=== PATIENT | female | born 1955 | race Caucasian/White ===

== ENCOUNTER → 2020-06-18 09:40 | Outpatient (BNVA) | payer MEDICARE, MEDICAID, SELFPAY | PROVIDERS: PCP Family Medicine; Visit Provider Urology | DX: R30.1 Vesical tenesmus (principal); N39.0 Urinary tract infection, site not specified; G35 Multiple sclerosis | CPT/HCPCS: 99212 ==

== ENCOUNTER 2020-07-05 11:20 | Day surgery (SDC) | payer MEDICARE, MEDICAID, SELFPAY ==
[2020-06-30 09:34] VITALS: BMI 39.0
--- NOTE | 2020-07-02 12:28 | P.CONAN_ITS ---
Documented by User: Magdalena Baumann 07/02/20 12:55 HPI - Anesthesia Eval Consult details Narrative: 65yo F for Cystoscopy Botox Injection, Poss Bladder Stone Removal 02/2020: cysto botox with MAC 06/2019: cysto, bladder stone with GA-LMA 4 PMFSH Past Medical History Medical History (Updated 06/30/20 @ 09:50 by Laura Godfrey) Anemia Arthritis Back pain Bladder stones CVA (cerebral vascular accident) DVT (deep venous thrombosis) Tran catheter in place Hiatal hernia History of MRSA infection History of neurogenic bladder HTN (hypertension) Hx of lymphoma Hx pulmonary embolism Multiple sclerosis Myocardial infarction Thyroid disease Surgical History Surgical History (Updated 06/30/20 @ 09:50 by Laura Godfrey) H/O colonoscopy History of biopsy of bladder History of bladder surgery Social History Social History Are you a primary director career services to a significant other at home: No Do you presently have visiting nurse or other home services: Yes Smoking Status: Unknown if ever smoked Use of substances other than those prescribed or required for medical reasons: No Have you been hit, kicked, punched, or otherwise hurt by someone within the past year? If so, by whom?: No Advance Directives Information Provided: Yes Advance Directives Date on File: 07/05/20 Recently lost weight without trying: No Meds Allergies Allergy/AdvReac Type Severity Reaction Status Date / Time mercury (elemental) Allergy Severe Anaphylaxis Verified 07/05/20 12:20 Penicillins Allergy Unknown Unknown Verified 07/05/20 12:20 morphine Allergy Hives Verified 07/05/20 12:21 ciprofloxacin AdvReac Unknown Unknown Verified 07/05/20 12:20 Home Medications Medication Instructions Recorded Confirmed Type acetaminophen 500 mg capsule 1,000 mg PO TID 06/18/20 06/30/20 History ascorbic acid (vitamin C) 1,000 mg 1,000 mg PO BID 06/18/20 06/30/20 History tablet baclofen 20 mg tablet 20 mg PO BID 06/18/20 06/18/20 History cefpodoxime 200 mg tablet 200 mg PO BID 06/18/20 06/30/20 History ceftriaxone 1 gram solution for g IM 06/18/20 06/18/20 History injection docusate sodium 283 mg/5 mL enema mg [place] DAILY PRN 06/18/20 06/18/20 History flu vacc 2020-21(65yr ml IM ONCE 06/18/20 06/18/20 History up)-MF59C(PF) 60 mcg(15 mcgx4)/0.5 mL IM syringe fluoride (sodium) 1.1 % dental PO DAILY 06/18/20 06/18/20 History paste furosemide 40 mg tablet 40 mg PO DAILY 06/18/20 06/30/20 History gabapentin 300 mg capsule 300 mg PO BID 06/18/20 06/18/20 History lactulose 10 gram/15 mL oral ml PO 06/18/20 06/18/20 History solution levofloxacin 750 mg tablet 750 mg PO DAILY 06/18/20 06/18/20 History levothyroxine 88 mcg tablet 88 mcg PO DAILY 06/18/20 06/30/20 History lidocaine HCl 2 % mucosal jelly TOPICAL 06/18/20 06/18/20 History lidocaine HCl 2 % mucosal solution PO 06/18/20 06/18/20 History lisinopril 5 mg tablet 5 mg PO DAILY 06/18/20 06/30/20 History magnesium hydroxide 400 mg/5 mL ml PO 06/18/20 06/18/20 History oral suspension menthol 0.44 %-zinc oxide 20.6 % TOPICAL TID PRN 06/18/20 06/18/20 History topical ointment methenamine hippurate 1 gram tablet 1 g PO BID 06/18/20 06/30/20 History nitrofurantoin 1 cap PO BID 06/18/20 06/30/20 History monohydrate/macrocrystals 100 mg capsule pneumococcal 23-maxx ps vaccine 25 ml IM 06/18/20 06/18/20 History mcg/0.5 mL injection syringe polyethylene glycol 3350 17 1 g PO DAILY 06/18/20 06/30/20 History gram/dose oral powder rivaroxaban 20 mg tablet 20 mg PO DAILY 06/18/20 06/30/20 History sulfamethoxazole 800 1 tab PO BID 06/18/20 06/18/20 History mg-trimethoprim 160 mg tablet triamcinolone acetonide 0.1 % TOPICAL 06/18/20 06/18/20 History topical ointment lactulose 15 ml PO DAILY 06/30/20 06/30/20 History Exam Exam Date and Time: July 02, 2020 1228 Height,Weight and Vital Signs: Height 5 ft Weight 90.718 kg Assessment and Plan Assessment Anesthesia Assessment: Chart Reviewed Documented by User: Kimo Akins 07/05/20 12:48 PMFSH Past Medical History Medical History (Updated 06/30/20 @ 09:50 by Laura Godfrey) Anemia Arthritis Back pain Bladder stones CVA (cerebral vascular accident) DVT (deep venous thrombosis) Rtan catheter in place Hiatal hernia History of MRSA infection History of neurogenic bladder HTN (hypertension) Hx of lymphoma Hx pulmonary embolism Multiple sclerosis Myocardial infarction Thyroid disease Surgical History Surgical History (Updated 06/30/20 @ 09:50 by Laura Godfrey) H/O colonoscopy History of biopsy of bladder History of bladder surgery Social History Social History Are you a primary director career services to a significant other at home: No Do you presently have visiting nurse or other home services: Yes Smoking Status: Unknown if ever smoked Use of substances other than those prescribed or required for medical reasons: No Have you been hit, kicked, punched, or otherwise hurt by someone within the past year? If so, by whom?: No Advance Directives Information Provided: Yes Advance Directives Date on File: 07/05/20 Recently lost weight without trying: No Meds Allergies Allergy/AdvReac Type Severity Reaction Status Date / Time mercury (elemental) Allergy Severe Anaphylaxis Verified 07/05/20 12:20 Penicillins Allergy Unknown Unknown Verified 07/05/20 12:20 morphine Allergy Hives Verified 07/05/20 12:21 ciprofloxacin AdvReac Unknown Unknown Verified 07/05/20 12:20 Home Medications Medication Instructions Recorded Confirmed Type acetaminophen 500 mg capsule 1,000 mg PO TID 06/18/20 06/30/20 History ascorbic acid (vitamin C) 1,000 mg 1,000 mg PO BID 06/18/20 06/30/20 History tablet baclofen 20 mg tablet 20 mg PO BID 06/18/20 06/18/20 History cefpodoxime 200 mg tablet 200 mg PO BID 06/18/20 06/30/20 History ceftriaxone 1 gram solution for g IM 06/18/20 06/18/20 History injection docusate sodium 283 mg/5 mL enema mg [place] DAILY PRN 06/18/20 06/18/20 History flu vacc 2020-21(65yr ml IM ONCE 06/18/20 06/18/20 History up)-MF59C(PF) 60 mcg(15 mcgx4)/0.5 mL IM syringe fluoride (sodium) 1.1 % dental PO DAILY 06/18/20 06/18/20 History paste furosemide 40 mg tablet 40 mg PO DAILY 06/18/20 06/30/20 History gabapentin 300 mg capsule 300 mg PO BID 06/18/20 06/18/20 History lactulose 10 gram/15 mL oral ml PO 06/18/20 06/18/20 History solution levofloxacin 750 mg tablet 750 mg PO DAILY 06/18/20 06/18/20 History levothyroxine 88 mcg tablet 88 mcg PO DAILY 06/18/20 06/30/20 History lidocaine HCl 2 % mucosal jelly TOPICAL 06/18/20 06/18/20 History lidocaine HCl 2 % mucosal solution PO 06/18/20 06/18/20 History lisinopril 5 mg tablet 5 mg PO DAILY 06/18/20 06/30/20 History magnesium hydroxide 400 mg/5 mL ml PO 06/18/20 06/18/20 History oral suspension menthol 0.44 %-zinc oxide 20.6 % TOPICAL TID PRN 06/18/20 06/18/20 History topical ointment methenamine hippurate 1 gram tablet 1 g PO BID 06/18/20 06/30/20 History nitrofurantoin 1 cap PO BID 06/18/20 06/30/20 History monohydrate/macrocrystals 100 mg capsule pneumococcal 23-maxx ps vaccine 25 ml IM 06/18/20 06/18/20 History mcg/0.5 mL injection syringe polyethylene glycol 3350 17 1 g PO DAILY 06/18/20 06/30/20 History gram/dose oral powder rivaroxaban 20 mg tablet 20 mg PO DAILY 06/18/20 06/30/20 History sulfamethoxazole 800 1 tab PO BID 06/18/20 06/18/20 History mg-trimethoprim 160 mg tablet triamcinolone acetonide 0.1 % TOPICAL 06/18/20 06/18/20 History topical ointment lactulose 15 ml PO DAILY 06/30/20 06/30/20 History Exam Airway Mallampati Class: III TM Dist: >3cm Neck ROM: Full Heart: RRR Assessment and Plan Assessment Anesthesia Assessment: Anesthesia Plan Discussed Final Anesthetic Review NPO: Yes ASA Class: IV Final Preanesthetic Review: Consent Obtained/Reviewed and DNR Form (If Appl.) (Desires full resuscitation in OR and PACU) Anesthetic Plan Anesthetic Plan: GA Disposition: Standard PACU
[2020-07-05] VITALS (7 sets, daily range): BP systolic 120–131; BP diastolic 56–75; PULSE 70–84; RESP 12–16; TEMP 36.3–36.8; O2SAT 97–100
--- NOTE | 2020-07-05 12:17 | MHC.SHP ---
Pre-Procedural Eval Section A The patient is an INPATIENT: No Changes since office visit: No Cold of Flu in the past 2 weeks, No New Medical Problems, No Changes in Medication and No Patient answered all questions The History & Physical has been completed within 30 days and I have reviewed it.: Yes Section B Chief Complaint: Calculus in Bladder, Neuromuscular Dysfunction Allergies: Allergies Allergy/AdvReac Type Severity Reaction Status Date / Time ciprofloxacin Allergy Unknown Unknown Verified 07/05/20 12:14 Penicillins Allergy Unknown Unknown Unverified 07/02/20 18:31 Plan Patient has been examined and remains a candidate for the planned procedure
[2020-07-05] MEDS: vancomycin HCL 1,000 MG in 0.9 % Sodium Chloride 250 ML 270 MG IV (12:29)
[2020-07-05] MEDS: Gentamicin Sulfate/NaCl 80 MG/100 ML PIGGYBACK 100 MG IV (12:29)
[2020-07-05] MEDS: Lactated Ringers 1,000 ML 100 ML IVCONT (12:30)
--- NOTE | 2020-07-05 13:37 | P.OP_ITS ---
Operative Note Operative Note Date of Service: 07/05/20 Narrative: PreOperative Diagnosis: neurogenic bladder from multiple sclerosi Post Operative Diagnosis: same Procedure: cystoscopy with Botox injection, bladder biopsy Surgeon: Dr Gage Bass Anesthesia: LMA Indications for procedure: this is a 65-year-old female. Long history of multiple sclerosis. Long his tory of neurogenic bladder treated with Tran catheter. Here today for Botox injection. Had this performed approximately 4 months ago. Had good benefit. Is known to have a small bladder capacity with marked trabeculation and collagen deposition. She is aware the risks and benefits. There was a question of a positive UTI however culture results this morning is negative. She is on antibiotics as a precaution. Procedure: After informed consent was verified the patient was brought to the operating room and placed in a supine position. anesthesia was administered per protocol. Patient was placed in modified dorsal lithotomy position and prepped and draped in sterile fashion. Safety pause time-out performed. Antibiotics have been given. Twenty-one [place] cystoscope inserted per urethra. The bladder was small capacity with marked trabeculation and diverticula formation. Also noted to have mucosal changes consistent with chronic Tran catheter. A biopsy was taken for confirmatory purposes. Botox was injected submucosally in 20 locations. 0.5 cc of a solution which was 100 units mixed with 10 cc normal saline. She tolerated the procedure well was x-ray not friend transferred in stable condition to the recovery room Pathology: Bladder biopsy Drains: none
--- NOTE | 2020-07-05 13:37 | PM.OP ---
Brief Operative Note Date of Service: 07/05/20 Pre-op diagnosis: Neurogenic bladder Post-op diagnosis: same Procedure: cystoscopy Botox injection Surgeon: Gage Bass MD Anesthesia: GLMA Estimated blood loss (mL): 0 Pathology: none sent Condition: stable Disposition: observation
[2020-07-05] MEDS: Acetaminophen 325 MG TABLET 650 MG PO (14:01)
[2020-07-05] MEDS: Fluconazole 100 MG TABLET PO (14:09)
== END 2020-07-05 14:45 | disposition home or self-care (01) ==
PROVIDERS: PCP Family Medicine; Visit Provider Urology
PROC: 3E0K8GC Introduction of Other Therapeutic Substance into Genitourinary Tract, Via Natural or Artificial Opening Endoscopic (ICD-10-PCS; CPT 52287; principal; 2020-07-05 13:00)
DX: N31.9 Neuromuscular dysfunction of bladder, unspecified (principal); G35 Multiple sclerosis; N21.0 Calculus in bladder; Z86.73 Personal history of transient ischemic attack (TIA), and cerebral infarction without residual deficits; I25.2 Old myocardial infarction; Z79.899 Other long term (current) drug therapy; Z88.0 Allergy status to penicillin; Z88.5 Allergy status to narcotic agent
CPT/HCPCS: 52287; 52204; 88305; J0585; J1580; J2250; J2405; J3010; J3370

== ENCOUNTER → 2020-09-30 16:02 | Outpatient (BNVA) | payer MEDICARE, MEDICAID, SELFPAY | PROVIDERS: Visit Provider Urology | DX: Z76.89 Persons encountering health services in other specified circumstances (principal) | CPT/HCPCS: Q3014 ==

== ENCOUNTER 2020-11-08 07:48 | Day surgery (SDC) | payer MEDICARE, MEDICAID, SELFPAY ==
[2020-10-22 15:46] VITALS: BMI 39.0
--- NOTE | 2020-10-25 13:20 | HO.ANESPROP2 ---
Documented by User: Magdalena Connellyney 10/25/20 13:28 HPI - Anesthesia Eval Consult details Narrative: 65yo F for Cystoscopy with 200 unit Botox Injection Chronic saddle PE's - xarelto s/p Cystoscopy Botox Injection 06/2020 with GA-LMA 4 Per cardiac note 07/2020 - BNP's nml, last echo a few years ago was nml. Recent NENO diagnosis PMFSH Active Problems Active Problems: All Active Problems (Updated 10/25/20 @ 09:01 by Lucie Chaparro) Multiple sclerosis (Acute) Painful bladder spasm (Acute) Recurrent UTI (Acute) Past Medical History Medical History Anemia Arthritis Back pain Bladder stones CVA (cerebral vascular accident) DVT (deep venous thrombosis) Tran catheter in place Hiatal hernia History of MRSA infection History of neurogenic bladder HTN (hypertension) Hx of lymphoma Hx pulmonary embolism Multiple sclerosis Myocardial infarction NENO (obstructive sleep apnea) Parkinson's variant of multiple system atrophy Sleep apnea Thyroid disease Wheelchair bound Surgical History Surgical History H/O colonoscopy History of biopsy of bladder History of bladder surgery History of cystoscopy Hx of laminectomy Social History Social History (Updated 10/22/20 @ 15:46 by Lucie Chaparro) Smoking Status: Never smoker Use of substances other than those prescribed or required for medical reasons: No Advance Directives: Yes Advance Directives Information Provided: Yes Advance Directives on File: Yes Advance Directives Date on File: 07/05/20 Meds Allergies Allergy/AdvReac Type Severity Reaction Status Date / Time mercury (elemental) Allergy Severe Anaphylaxis Verified 11/08/20 09:14 Penicillins Allergy Severe Hives Verified 11/08/20 09:14 bupropion [From Wellbutrin] Allergy Hives Verified 11/08/20 09:14 Iodinated Contrast Media Allergy Hives Verified 11/08/20 09:14 [IV Contrast Dye] morphine Allergy Hives Verified 11/08/20 09:14 metoclopramide [From Reglan] AdvReac Parkinson Verified 11/08/20 09:14 syndrome Home Medications Medication Instructions Recorded Confirmed Last Taken Type acetaminophen 500 mg capsule 1,000 mg PO TID 06/18/20 10/22/20 07/05/20 History ascorbic acid (vitamin C) 1,000 mg 1,000 mg PO BID 06/18/20 10/22/20 Unknown History tablet baclofen 20 mg tablet 20 mg PO QID 06/18/20 10/22/20 07/05/20 History docusate sodium 283 mg/5 mL enema 283 mg AR DAILY PRN 06/18/20 10/22/20 Unknown History flu vacc 2020-21(65yr ml IM ONCE 06/18/20 06/18/20 Unknown History up)-MF59C(PF) 60 mcg(15 mcgx4)/0.5 mL IM syringe fluoride (sodium) 1.1 % dental PO DAILY 06/18/20 06/18/20 Unknown History paste furosemide 40 mg tablet 40 mg PO DAILY 06/18/20 10/22/20 07/05/20 History gabapentin 300 mg capsule 300 mg PO BEDTIME 06/18/20 10/22/20 Unknown History levothyroxine 88 mcg tablet 88 mcg PO DAILY 06/18/20 10/22/20 Unknown History lidocaine HCl 2 % mucosal jelly TOPICAL 06/18/20 06/18/20 Unknown History lisinopril 5 mg tablet 5 mg PO DAILY 06/18/20 10/22/20 11/08/20 05:00 History pneumococcal 23-maxx ps vaccine 25 ml IM 06/18/20 06/18/20 Unknown History mcg/0.5 mL injection syringe polyethylene glycol 3350 17 1 g PO DAILY 06/18/20 06/30/20 Unknown History gram/dose oral powder rivaroxaban 20 mg tablet 20 mg PO DAILY 06/18/20 10/22/20 Unknown History triamcinolone acetonide 0.1 % TOPICAL 06/18/20 06/18/20 Unknown History topical ointment alendronate 1 tab PO QWEEK 10/22/20 10/22/20 Unknown History modafinil [Provigil] 1 tab PO BID 10/22/20 10/22/20 Unknown History phenazopyridine [Pyridium] 100 mg PO DAILY 10/22/20 10/22/20 Unknown History Exam Exam Date and Time: October 25, 2020 1320 Height,Weight and Vital Signs: Height 5 ft Weight 90.718 kg Assessment and Plan Assessment Anesthesia Assessment: Chart Reviewed Documented by User: Dillan Simmons MD 11/08/20 10:14 PMFSH Past Medical History Medical History Anemia Arthritis Back pain Bladder stones CVA (cerebral vascular accident) DVT (deep venous thrombosis) Tran catheter in place Hiatal hernia History of MRSA infection History of neurogenic bladder HTN (hypertension) Hx of lymphoma Hx pulmonary embolism Multiple sclerosis Myocardial infarction NENO (obstructive sleep apnea) Parkinson's variant of multiple system atrophy Sleep apnea Thyroid disease Wheelchair bound Surgical History Surgical History H/O colonoscopy History of biopsy of bladder History of bladder surgery History of cystoscopy Hx of laminectomy Social History Social History (Updated 10/22/20 @ 15:46 by Lucie Chaparro) Smoking Status: Never smoker Use of substances other than those prescribed or required for medical reasons: No Advance Directives: Yes Advance Directives Information Provided: Yes Advance Directives on File: Yes Advance Directives Date on File: 07/05/20 Meds Allergies Allergy/AdvReac Type Severity Reaction Status Date / Time mercury (elemental) Allergy Severe Anaphylaxis Verified 11/08/20 09:14 Penicillins Allergy Severe Hives Verified 11/08/20 09:14 bupropion [From Wellbutrin] Allergy Hives Verified 11/08/20 09:14 Iodinated Contrast Media Allergy Hives Verified 11/08/20 09:14 [IV Contrast Dye] morphine Allergy Hives Verified 11/08/20 09:14 metoclopramide [From Reglan] AdvReac Parkinson Verified 11/08/20 09:14 syndrome Home Medications Medication Instructions Recorded Confirmed Last Taken Type acetaminophen 500 mg capsule 1,000 mg PO TID 06/18/20 10/22/20 07/05/20 History ascorbic acid (vitamin C) 1,000 mg 1,000 mg PO BID 06/18/20 10/22/20 Unknown History tablet baclofen 20 mg tablet 20 mg PO QID 06/18/20 10/22/20 07/05/20 History docusate sodium 283 mg/5 mL enema 283 mg AR DAILY PRN 06/18/20 10/22/20 Unknown History flu vacc 2020-(65yr ml IM ONCE 06/18/20 06/18/20 Unknown History up)-MF59C(PF) 60 mcg(15 mcgx4)/0.5 mL IM syringe fluoride (sodium) 1.1 % dental PO DAILY 06/18/20 06/18/20 Unknown History paste furosemide 40 mg tablet 40 mg PO DAILY 06/18/20 10/22/20 07/05/20 History gabapentin 300 mg capsule 300 mg PO BEDTIME 06/18/20 10/22/20 Unknown History levothyroxine 88 mcg tablet 88 mcg PO DAILY 06/18/20 10/22/20 Unknown History lidocaine HCl 2 % mucosal jelly TOPICAL 06/18/20 06/18/20 Unknown History lisinopril 5 mg tablet 5 mg PO DAILY 06/18/20 10/22/20 11/08/20 05:00 History pneumococcal 23-maxx ps vaccine 25 ml IM 06/18/20 06/18/20 Unknown History mcg/0.5 mL injection syringe polyethylene glycol 3350 17 1 g PO DAILY 06/18/20 06/30/20 Unknown History gram/dose oral powder rivaroxaban 20 mg tablet 20 mg PO DAILY 06/18/20 10/22/20 Unknown History triamcinolone acetonide 0.1 % TOPICAL 06/18/20 06/18/20 Unknown History topical ointment alendronate 1 tab PO QWEEK 10/22/20 10/22/20 Unknown History modafinil [Provigil] 1 tab PO BID 10/22/20 10/22/20 Unknown History phenazopyridine [Pyridium] 100 mg PO DAILY 10/22/20 10/22/20 Unknown History Exam Airway Mallampati Class: I TM Dist: >3cm Loose/Missing/Broken Teeth: No Heart: RRR Assessment and Plan Assessment Anesthesia Assessment: Anesthesia Plan Discussed and Chart Reviewed Final Anesthetic Review NPO: Yes ASA Class: III Final Preanesthetic Review: No Changes in Pt Med Stat, Meds/Allgs Chart Reviewed, Consent Obtained/Reviewed and Anes Risks/Benef Reviewed Patient Risk: High Procedure Risk: Low Anesthetic Plan Anesthetic Plan: GA Disposition: Standard PACU
[2020-11-08 09:16] VITALS: BP 110/64; PULSE 72; RESP 16; TEMP 36.3; O2SAT 99
[2020-11-08] MEDS: Lactated Ringers 1,000 ML 50 ML IV (09:23)
[2020-11-08] MEDS: levoFLOXacin 500 MG TABLET PO (09:36)
--- NOTE | 2020-11-08 09:41 | PC.NURSE ---
wound to rt buttock/upper thigh area and coccyx, both with bandages.
--- NOTE | 2020-11-08 10:13 | MHC.SHP ---
Pre-Procedural Eval Section A The patient is an INPATIENT: No Changes since office visit: Yes Cold of Flu in the past 2 weeks, Yes New Medical Problems, Yes Changes in Medication and Yes Patient answered all questions The History & Physical has been completed within 30 days and I have reviewed it.: Yes Section B Chief Complaint: bladder spasm Allergies: Allergies Allergy/AdvReac Type Severity Reaction Status Date / Time mercury (elemental) Allergy Severe Anaphylaxis Verified 11/08/20 09:14 Penicillins Allergy Severe Hives Verified 11/08/20 09:14 bupropion [From Wellbutrin] Allergy Hives Verified 11/08/20 09:14 Iodinated Contrast Media Allergy Hives Verified 11/08/20 09:14 [IV Contrast Dye] morphine Allergy Hives Verified 11/08/20 09:14 metoclopramide [From Reglan] AdvReac Parkinson Verified 11/08/20 09:14 syndrome Plan Diagnosis/Plan: Unchanged ( cystoscopy with Botox injection) I have reviewed the history and physical and performed a pertinent physical examination on my patient. No changes have occurred unless specified.
--- NOTE | 2020-11-08 10:58 | W.PM.OPN ---
Operative Note Operative Note Date of Service: 11/08/20 Narrative: PreOperative Diagnosis: neurogenic bladder multiple sclerosis Post Operative Diagnosis: neurogenic bladder Procedure: cystoscopy, bladder biopsy, Botox injection Surgeon: Dr Gage Bass Anesthesia: general Indications for procedure: longstanding MS with indwelling Tran catheter. Suffers from bladder spasm secondary to neurogenic bladder. Previously used Botox with good effect. She is here for repeat Botox administration. Procedure: After informed consent was verified the patient was brought to the operating room and placed in a supine position. anesthesia was administered per protocol. she was placed in a modified dorsal lithotomy position and prepped and draped in a sterile fashion. Safety pause time-out was performed. Antibiotics have been given. the indwelling Tran catheter 20 Japanese was removed. A 22 Japanese cystoscope was placed. The bladder had 1 small stone developed on the surface of inflamed mucosa. This was removed. A biopsy was taken of the edematous mucosa. It is likely this is secondary to the Tran catheter however Surveillance is warranted in this setting of a longstanding Tran catheter. Botox was administered. Two hundred units in 0.5 cc doses with a total of 20 doses. These were placed in a grid of 5 rows of 4 injections on the posterior wall of the bladder. She tolerated the injections well. A 20 Japanese Tran catheter was placed at the completion of the case. Pathology: Bladder biopsy Drains: Tran catheter 20 Japanese
[2020-11-08 11:10] VITALS: BP 123/53; PULSE 80; RESP 14; TEMP 36.3; O2SAT 93
[2020-11-08 11:15] VITALS: BP 94/41; PULSE 81; RESP 16; O2SAT 96
[2020-11-08 11:20] VITALS: BP 104/51; PULSE 78; RESP 16; O2SAT 95
[2020-11-08 11:25] VITALS: BP 103/52; PULSE 84; RESP 16; O2SAT 95
[2020-11-08 11:39] VITALS: BP 103/71; PULSE 79; RESP 16; O2SAT 97
== END 2020-11-08 11:57 | disposition home or self-care (01) ==
PROVIDERS: PCP Family Medicine; Visit Provider Urology
PROC: 3E0K8GC Introduction of Other Therapeutic Substance into Genitourinary Tract, Via Natural or Artificial Opening Endoscopic (ICD-10-PCS; CPT 52287; principal; 2020-11-08 09:50)
DX: N31.9 Neuromuscular dysfunction of bladder, unspecified (principal); N32.89 Other specified disorders of bladder; N30.20 Other chronic cystitis without hematuria; Z87.442 Personal history of urinary calculi; G35 Multiple sclerosis; I10 Essential (primary) hypertension; G47.33 Obstructive sleep apnea (adult) (pediatric); Z86.14 Personal history of Methicillin resistant Staphylococcus aureus infection; Z86.711 Personal history of pulmonary embolism; Z99.3 Dependence on wheelchair; Z88.0 Allergy status to penicillin; Z88.8 Allergy status to other drugs, medicaments and biological substances
CPT/HCPCS: 52204; 52287; 88305; J0585; J1100; J2250; J2370; J2405; J3010

== ENCOUNTER → 2020-11-24 11:00 | Outpatient (BNVA) | payer MEDICARE, MEDICAID, SELFPAY | PROVIDERS: PCP Family Medicine; Visit Provider Urology | DX: Z13.89 Encounter for screening for other disorder (principal) | CPT/HCPCS: 99212 ==

== ENCOUNTER → 2021-03-10 15:24 | Outpatient (BNVA) | payer MEDICARE, MEDICAID, SELFPAY | PROVIDERS: Visit Provider Urology | DX: Z13.89 Encounter for screening for other disorder (principal) | CPT/HCPCS: Q3014 ==

== ENCOUNTER → 2021-06-10 16:00 | Outpatient (BNVA) | payer MEDICARE, MEDICAID, SELFPAY | PROVIDERS: PCP Family Medicine; Visit Provider Urology | DX: N21.0 Calculus in bladder (principal); N31.9 Neuromuscular dysfunction of bladder, unspecified; N39.0 Urinary tract infection, site not specified; G20 Parkinson's disease; Z96.0 Presence of urogenital implants; Z88.0 Allergy status to penicillin; Z88.8 Allergy status to other drugs, medicaments and biological substances; Z88.6 Allergy status to analgesic agent; Z91.041 Radiographic dye allergy status; Z66 Do not resuscitate | CPT/HCPCS: Q3014 ==

== ENCOUNTER 2021-08-01 10:43 | Day surgery (SDC) | payer MEDICARE, MEDICAID, SELFPAY ==
[2021-07-25 13:23] VITALS: BMI 39.0
[2021-08-01] VITALS (8 sets, daily range): BP systolic 118–148; BP diastolic 66–84; PULSE 69–81; RESP 16–17; TEMP 36.4–36.6; O2SAT 95–98
[2021-08-01] MEDS: Lactated Ringers 1,000 ML 50 ML IVCONT (12:39)
--- NOTE | 2021-08-01 12:46 | MHC.SHP ---
Pre-Procedural Eval Section A Date of Service: 08/01/21 Section B Chief Complaint: bladder dysfunction Details of Present Illness: Here for cystoscopy, bladder irrigation, Botox 200 units to bladder wall. Prior discussion in office regarding procedure. Understands the risks and benefits for Botox in her bladder. It is for spasm control. Relevant Family History (Specify if Yes): No Relevant Social History: Other (specify) Present Medications: see Short Stay Collaborative assessment Medical History: Significant History History of Previous Operations: Relevant previous surgery/procedure and date(s) (Prior Botox September 2020) Allergies: Allergies Allergy/AdvReac Type Severity Reaction Status Date / Time mercury (elemental) Allergy Severe Anaphylaxis Verified 06/10/21 16:01 Penicillins Allergy Severe Hives Verified 06/10/21 16:01 bupropion [From Wellbutrin] Allergy Intermediate Hives Verified 07/25/21 12:34 Iodinated Contrast Media Allergy Intermediate Hives Verified 07/25/21 12:34 [IV Contrast Dye] morphine Allergy Intermediate Hives Verified 07/25/21 12:34 metoclopramide [From Reglan] AdvReac Intermediate Parkinson Verified 07/25/21 12:34 syndrome Review of Systems Sugical H&P ROS: Negative: Constitution, Cardiovascular, Respiratory, Neurological, Psychiatric, Hem-Onc, Allergic/Immunologic, Gastrointestinal, Genitourinary, Musculoskeletal, Integumentary, Endocrine and Eyes/Ears/Nose/Throat Exam Surgical H&P Exam: Normal: HEENT, Normal: Heart, Normal: Lungs, Normal: Extremities, Normal: Abdomen, Normal: Skin and Normal: Neurological Plan Diagnosis/Plan: Unchanged (Cystoscopy, debris evacuation, Botox) I have reviewed the history and physical and performed a pertinent physical examination on my patient. No changes have occurred unless specified.
--- NOTE | 2021-08-01 12:57 | P.CONAN_ITS ---
HPI - Anesthesia Eval Consult details Narrative: 65yo F for Cystoscopy Botox Injection Chronic saddle PE's - xarelto. stopped 2 days ago . s/p Cystoscopy Botox Injection 06/2020 with GA-LMA 4 Per cardiac note 07/2020 - BNP's nml, last echo a few years ago was nml. Recent NENO diagnosis PMFSH Active Problems Active Problems: All Active Problems (Updated 08/01/21 @ 12:06 by Ria Sr, PAUL) Multiple sclerosis (Acute) Painful bladder spasm (Acute) Recurrent UTI (Acute) Neurogenic urinary bladder disorder (Acute) Past Medical History Medical History Anemia Arthritis Back pain Bladder stones Cardiac arrest COVID-19 vaccine series completed CVA (cerebral vascular accident) DVT (deep venous thrombosis) Tran catheter in place Hiatal hernia History of MRSA infection History of neurogenic bladder History of trigeminal neuralgia HTN (hypertension) Hx of lymphoma Hx pulmonary embolism Multiple sclerosis Myocardial infarction NENO (obstructive sleep apnea) Osteoporosis Parkinson's variant of multiple system atrophy Pulmonary emboli Sacral decubitus ulcer Thyroid disease Wheelchair bound Functional capacity: wheelchair bound Family History Family history of problems with anesthesia: No Surgical History Surgical History (Updated 08/01/21 @ 12:17 by Rosa Cortez RN) H/O colonoscopy History of biopsy of bladder History of bladder surgery History of cystoscopy History of intraocular lens implant Hx of adenoidectomy Hx of hysterectomy Hx of laminectomy Hx of lumpectomy Hx of tonsillectomy Hx of vitrectomy History of Problems with Anesthesia: No Social History Social History (Updated 10/22/20 @ 15:46 by Lucie Chaparro RN) Are you a primary neurocritical care physician to a significant other at home: No Do you presently have visiting nurse or other home services: Yes ([facility], 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 If so, by whom?: No Are you DNR?: Yes Advance Directives: Yes Advance Directives Information Provided: Yes Advance Directives on File: Yes Advance Directives Date on File: 07/05/20 Recently lost weight without trying: No Eating poorly because of decreased appetite: No Nutrition Risks: No Nutritional Risk Meds Allergies Allergy/AdvReac Type Severity Reaction Status Date / Time mercury (elemental) Allergy Severe Anaphylaxis Verified 06/10/21 16:01 Penicillins Allergy Severe Hives Verified 06/10/21 16:01 bupropion [From Wellbutrin] Allergy Intermediate Hives Verified 07/25/21 12:34 Iodinated Contrast Media Allergy Intermediate Hives Verified 07/25/21 12:34 [IV Contrast Dye] morphine Allergy Intermediate Hives Verified 07/25/21 12:34 metoclopramide [From Reglan] AdvReac Intermediate Parkinson Verified 07/25/21 12:34 syndrome Active Medications: Current Medications Lactated Ringer's (Lr) 1,000 mls @ 50 mls/hr IVCONT .Q20H JUWAN Last Admin: 08/01/21 12:39 Dose: 50 mls/hr Documented by: Home Medications Medication Instructions Recorded Confirmed Last Taken Type acetaminophen 500 mg capsule 1,000 mg PO TID 06/18/20 07/25/21 07/05/20 History ascorbic acid (vitamin C) 1,000 mg 1,000 mg PO BID 06/18/20 07/25/21 Unknown History tablet baclofen 20 mg tablet 20 mg PO TID 06/18/20 07/25/21 07/05/20 History docusate sodium 283 mg/5 mL enema 283 mg OR DAILY PRN 06/18/20 07/25/21 Unknown History flu vacc 2019-(64yr ml IM ONCE 06/18/20 06/18/20 Unknown History up)-MF59C(PF) 60 mcg(15 mcgx4)/0.5 mL IM syringe furosemide 40 mg tablet 40 mg PO DAILY 06/18/20 07/25/21 07/05/20 History gabapentin 300 mg capsule 300 mg PO BEDTIME 06/18/20 07/25/21 Unknown History levothyroxine 88 mcg tablet 88 mcg PO DAILY 06/18/20 07/25/21 Unknown History lidocaine HCl 2 % mucosal jelly TOPICAL 06/18/20 06/18/20 Unknown History lisinopril 5 mg tablet 5 mg PO DAILY 06/18/20 07/25/21 11/08/20 05:00 History pneumococcal 23-maxx ps vaccine 25 ml IM 06/18/20 06/18/20 Unknown History mcg/0.5 mL injection syringe rivaroxaban 20 mg tablet 20 mg PO DAILY 06/18/20 07/25/21 Unknown History triamcinolone acetonide 0.1 % TOPICAL 06/18/20 06/18/20 Unknown History topical ointment modafinil 200 mg tablet (Provigil) 1 tab PO BID 10/22/20 07/25/21 Unknown History Probiotic 1 cap DAILY 07/25/21 07/25/21 Unknown History calcium carbonate 600 mg calcium 1 tab PO BID 07/25/21 07/25/21 Unknown History (1,500 mg) tablet cholecalciferol (vitamin D3) 25 25 mcg PO DAILY 07/25/21 07/25/21 Unknown History mcg (1,000 unit) capsule (Vitamin D3) Exam Exam Date and Time: August 01, 2021 1257 Height,Weight and Vital Signs: Height 5 ft Weight 90.718 kg Last Vital Signs Temp 97.6 F 08/01/21 12:07 Pulse 78 08/01/21 12:07 Resp 16 08/01/21 12:07 BP 148/84 H 08/01/21 12:07 Pulse Ox 97 08/01/21 12:07 Airway Mallampati Class: III TM Dist: >3cm Neck ROM: Full Loose/Missing/Broken Teeth: Yes Assessment and Plan Assessment Anesthesia Assessment: Anesthesia Plan Discussed Final Anesthetic Review Family History of Problems with Anesthesia: No History of Problems with Anesthesia: No NPO: Yes ASA Class: III Patient Risk: High Procedure Risk: Intermediate Anesthetic Plan Anesthetic Plan: GA Disposition: Standard PACU
--- NOTE | 2021-08-01 13:56 | W.PM.OPN ---
Operative Note Operative Note Date of Service: 08/01/21 Narrative: PreOperative Diagnosis: Neurogenic bladder with spasm in setting of multiple sclerosis Post Operative Diagnosis: Above Procedure: Cystoscopy with injection 200 units Botox intra detrusor muscle Surgeon: Dr Gage Bass Anesthesia: Sedation Indications for procedure: Is a very pleasant 66-year-old female. Neurogenic bladder with indwelling Tran catheter. Bladder spasm with leakage around Tran catheter. For prior Botox injection with success in managing bladder spasms For cystoscopy and Botox injection. Is aware of the risks and benefits particularly related to urinary retention and possible infection. Procedure: After informed consent was verified the patient was brought to the operating room and placed in a supine position. Anesthesia was administered per protocol. Cystoscopy performed with 22 Guyanese cystoscope. Bladder was emptied of urine. There were superficial bladder edematous changes consistent with long-term Tran catheter positioning. These will looked improved compared to previously. There was no evidence of any bladder debris or bladder stones. Bladder was refilled. Using 200 units of Botox mixed in 20 cc of normal saline injections were placed at the back wall of the bladder. One cc placed at each injection site. Injections were placed in a grid 5 across and for high. Injections were placed from the inferior to superior position. Trabeculations on the bladder wall with targeted for each injection site. Procedure was tolerated well. Patient was extubated and transferred in stable condition to the recovery area. Pathology: None Drains: None
== END 2021-08-01 15:55 | disposition home or self-care (01) ==
PROVIDERS: PCP Family Medicine; Visit Provider Urology
PROC: 0TJB8ZZ Inspection of Bladder, Via Natural or Artificial Opening Endoscopic (ICD-10-PCS; CPT 52000; principal; 2021-08-01 12:50)
DX: N31.9 Neuromuscular dysfunction of bladder, unspecified (principal); N32.89 Other specified disorders of bladder; G35 Multiple sclerosis; G90.3 Multi-system degeneration of the autonomic nervous system; N39.0 Urinary tract infection, site not specified; Z87.442 Personal history of urinary calculi; I25.2 Old myocardial infarction; D64.9 Anemia, unspecified; I10 Essential (primary) hypertension; G47.33 Obstructive sleep apnea (adult) (pediatric); Z86.73 Personal history of transient ischemic attack (TIA), and cerebral infarction without residual deficits; Z86.718 Personal history of other venous thrombosis and embolism; Z86.711 Personal history of pulmonary embolism; Z85.72 Personal history of non-Hodgkin lymphomas; Z79.01 Long term (current) use of anticoagulants; Z86.14 Personal history of Methicillin resistant Staphylococcus aureus infection; Z88.0 Allergy status to penicillin; Z91.041 Radiographic dye allergy status; Z88.8 Allergy status to other drugs, medicaments and biological substances; Z66 Do not resuscitate; Z99.3 Dependence on wheelchair
CPT/HCPCS: 52287; J0585; J0692; J1100; J2250; J2370; J2405; J3010

== ENCOUNTER → 2021-08-17 14:08 | Outpatient (BNVA) | payer MEDICARE, MEDICAID, SELFPAY | PROVIDERS: PCP Family Medicine; Visit Provider Urology | DX: Z13.89 Encounter for screening for other disorder (principal) | CPT/HCPCS: Q3014 ==

== ENCOUNTER → 2021-12-16 14:10 | Outpatient (BNVA) | payer MEDICARE, MEDICAID, SELFPAY | PROVIDERS: PCP Family Medicine; Visit Provider Urology | DX: N39.0 Urinary tract infection, site not specified (principal); N31.9 Neuromuscular dysfunction of bladder, unspecified | CPT/HCPCS: Q3014 ==

== ENCOUNTER 2022-02-13 16:57 | Inpatient (IN) | payer MEDICARE, MEDICAID, SELFPAY ==
[2022-02-13] VITALS (8 sets, daily range): BP systolic 126–172; BP diastolic 66–87; PULSE 96–110; RESP 16–27; TEMP 37.1–38.4; O2SAT 95–97; BMI 39.6
[2022-02-13] MEDS: Acetaminophen 325 MG TABLET 650 MG PO ×2 (17:17→23:48)
--- NOTE | 2022-02-13 17:19 | ED.GENADULT ---
HPI - General Adult General Chief complaint: General Medical Stated complaint: ?Sepsis Alert Time Seen by Provider: 02/13/22 17:19 Source: patient Mode of arrival: EMS Limitations: no limitations History of Present Illness HPI narrative: Patient is 67 years old with history of multiple sclerosis neurogenic urinary bladder with indwelling Tran catheter and hypothyroidism, hypertension, hyperlipidemia, obesity, non ambulatory comes here for fever started earlier today, was feeling weak and lousy, T-max was 102 degrees at home on arrival patient's blood pressure 172/78 pulse rate 108 temp 101.1f patient does get frequent UTI last admission was in 11/01 at [facility] when urine culture grew Pseudomonas, Enterococcus faecalis, Proteus mirabilis, Klebsiella pneumonia and was given IV vancomycin and IV cefepime. Patient denies any cough or shortness of breath or upper respiratory symptoms no abdominal pain Related Data Home Medications Medication Instructions Recorded Confirmed acetaminophen 500 mg capsule 1,000 mg PO BID 06/18/20 02/13/22 ascorbic acid (vitamin C) 1,000 mg 1,000 mg PO BID 06/18/20 02/13/22 tablet baclofen 20 mg tablet 20 mg PO TID 06/18/20 02/13/22 furosemide 40 mg tablet 40 mg PO DAILY 06/18/20 02/13/22 levothyroxine 88 mcg tablet 88 mcg PO DAILY 06/18/20 02/13/22 lisinopril 5 mg tablet 5 mg PO DAILY 06/18/20 02/13/22 rivaroxaban 20 mg tablet 20 mg PO DAILY 06/18/20 02/13/22 modafinil 200 mg tablet (Provigil) 1 tab PO BID@08,12 10/22/20 02/13/22 calcium carbonate 600 mg calcium 1 tab PO BID 07/25/21 02/13/22 (1,500 mg) tablet acetaminophen 500 mg capsule 500 mg PO BID PRN Pain, Mild 02/13/22 02/13/22 (Mapap (acetaminophen)) cholecalciferol (vitamin D3) 50 1 cap PO DAILY 02/13/22 02/13/22 mcg (2,000 unit) capsule furosemide 40 mg tablet 1 tab PO DAILY@1400 PRN Edema 02/13/22 02/13/22 gabapentin 300 mg capsule 300 mg PO TID 02/13/22 02/13/22 lactobacillus combination no.4 15 2 cap PO BID 02/13/22 02/13/22 billion cell capsule (Senior Probiotic) Previous Rx's Medication Instructions Recorded estradiol See Rx Instructions .Route DAILY 12/16/21 30 days #42.5 grams Allergies Allergy/AdvReac Type Severity Reaction Status Date / Time mercury (elemental) Allergy Severe Anaphylaxis Verified 08/17/21 14:10 Penicillins Allergy Severe Hives Verified 08/17/21 14:10 bupropion [From Wellbutrin] Allergy Intermediate Hives Verified 08/17/21 14:10 Iodinated Contrast Media Allergy Intermediate Hives Verified 08/17/21 14:10 [IV Contrast Dye] morphine Allergy Intermediate Hives Verified 08/17/21 14:10 metoclopramide [From Reglan] AdvReac Intermediate Parkinson Verified 08/17/21 14:10 syndrome Review of Systems Review of Systems: Yes all other systems are reviewed and are negative [facility] Past Medical History Medical History Anemia Arthritis Back pain Bladder stones Cardiac arrest COVID-19 vaccine series completed CVA (cerebral vascular accident) DVT (deep venous thrombosis) Tran catheter in place Hiatal hernia History of MRSA infection History of neurogenic bladder History of trigeminal neuralgia HTN (hypertension) Hx of lymphoma Hx pulmonary embolism Multiple sclerosis Myocardial infarction NENO (obstructive sleep apnea) Osteoporosis Parkinson's variant of multiple system atrophy Pulmonary emboli Sacral decubitus ulcer Thyroid disease Wheelchair bound Surgical History H/O colonoscopy History of biopsy of bladder History of bladder surgery History of cystoscopy History of intraocular lens implant Hx of adenoidectomy Hx of hysterectomy Hx of laminectomy Hx of lumpectomy Hx of tonsillectomy Hx of vitrectomy Social History Social History Are you a primary health care / medical job titles to a significant other at home: No Do you presently have visiting nurse or other home services: Yes ([facility]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, 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) Patient Tobacco Use Status: Never used Tobacco Use of substances other than those prescribed or required for medical reasons: No Advance Directives: Yes Advance Directives on File: Yes Advance Directives Date on File: 07/05/20 Physical Exam ED Vital Signs: Vital Signs - 24 hr 02/13/22 17:05 02/13/22 18:08 02/13/22 18:39 Temperature 101.1 F H 99.8 F Pulse Rate 108 H 103 H 103 H Respiratory Rate 24 H 24 H 20 Blood Pressure 172/78 H 147/66 H 148/66 H Pulse Oximetry 97 96 Oxygen Delivery Method Room Air Room Air Room Air 02/13/22 19:33 02/13/22 19:45 Temperature 98.7 F Pulse Rate 96 101 H Respiratory Rate 20 20 Blood Pressure 162/66 H 163/72 H Pulse Oximetry 96 95 Oxygen Delivery Method Room Air Room Air BMI result Body Mass Index 39.6 Appearance: Alert. Oriented X3. No acute distress. Eyes: PERRLA, No Nystagmus ENT: Pharynx normal. Oral Mucosa moist Neck: Normal inspection. Neck supple. CVS: Normal heart rate and rhythm. Pulses normal. Respiratory: No respiratory distress. Equal air entry bilateral, no wheezing/rales/rhonchi Abdomen: Soft and nontender. Bowel sounds are present, no mass palpable, no CVA tenderness Skin: Skin warm and dry. Normal skin color. Normal skin turgor. Extremities: No lower extremity edema. No calf tenderness Neuro: Oriented X 3. No leg movements, only limited movements of the right hand and good movements of the left arm Medical Decision Making MDM Narrative Medical decision making narrative: . Patient with UTI with sepsis not in septic shock given IV fluids started on cefepime and vancomycin will admit to medical service Focused exam for sepsis was done at 22:00 Medical Records Medical records reviewed: Yes I reviewed the patient's medical records. Medical records narrative: Medical records reviewed from [facility] when she was admitted on 11/01 urine culture grew Pseudomonas aeruginosa, Enterococcus faecalis, Proteus mirabilis, Klebsiella pneumonia, Morganella morganii sensitive to vancomycin and cefepime which started Lab Data Lab results reviewed: Yes I reviewed the patient's lab results. Result diagrams: 02/13/22 17:28 02/13/22 17:57 Labs: Lab Results 02/13/22 02/13/22 02/13/22 Range/Units 17:28 17:28 17:28 WBC 23.4 H (4.8-10.8) X10*3/uL RBC 3.97 L (4.20-5.50) X10*6/uL Hgb 12.6 (12.0-16.0) g/dl Hct 38.9 (37.0-47.0) % MCV 98.0 (80.0-98.0) fL MCH 31.7 (27.0-33.0) pg MCHC 32.4 (31.0-35.0) g/dl RDW 13.2 (11.0-16.0) % Plt Count 274 (160-400) X10*3/uL MPV 9.5 (9.4-12.3) fL Immature Gran % (Auto) 0.5 H (0.0-0.4) % Neut % (Auto) 88.1 H (45-73) % Lymph % (Auto) 7.7 L (20-40) % Prentiss % (Auto) 3.5 (2-11) % Eos % (Auto) 0.0 (0-4) % Baso % (Auto) 0.2 (0-2) % Lymph # (Auto) 1.8 (1.2-4.9) X10*3/uL Prentiss # (Auto) 0.8 (0.1-1.2) X10*3/uL Eos # (Auto) 0.0 (0.0-0.4) X10*3/uL Baso # (Auto) 0.1 (0.0-0.2) X10*3/uL Abs Immat Gran (auto) 0.12 H (0.00-0.03) X10*3/uL Absolute Neuts (auto) 20.6 H (2.0-8.3) x10*3/uL Absolute Nucleated RBC 0.000 (0.0-0.012) X10*3/uL Nucleated RBC % (auto) 0.0 (0.0-0.2) /100WBC Smear Tech's Comments VERIFIED Sodium (135-145) mmol/L Potassium (3.3-5.1) mmol/L Chloride (96-108) mmol/L Carbon Dioxide (22-29) mmol/L Anion Gap (12-20) BUN (9-16) mg/dL Creatinine (0.5-1.4) mg/dL Estim Creat Clear Calc Estimated GFR Random Glucose (60-115) mg/dL Lactic Acid 2.5 H* (0.5-2.0) mmol/L Calcium (8.4-10.2) mg/dL Troponin I High Sens 5.8 (<3.5-17.0) ng/L Urine Color Urine Appearance Urine pH (5.0-8.0) Ur Specific Crescent (1.005-1.025) Urine Protein (NEG-TRACE) MG/DL Urine Glucose (UA) (NEG) MG/DL Urine Ketones (NEG) MG/DL Urine Blood (NEG) Urine Nitrite (NEG) Ur Leukocyte Esterase (NEG) Urine RBC (0) /HPF Urine WBC (0-4) /HPF Ur Squamous Epith Cells /LPF Calcium Oxalate Crystal /LPF Amorphous Sediment /LPF Urine Bacteria /LPF COVID-19 (YURIY) (Negative) COVID-19 Clin Com 02/13/22 02/13/22 02/13/22 Range/Units 17:35 17:57 17:57 WBC (4.8-10.8) X10*3/uL RBC (4.20-5.50) X10*6/uL Hgb (12.0-16.0) g/dl Hct (37.0-47.0) % MCV (80.0-98.0) fL MCH (27.0-33.0) pg MCHC (31.0-35.0) g/dl RDW (11.0-16.0) % Plt Count (160-400) X10*3/uL MPV (9.4-12.3) fL Immature Gran % (Auto) (0.0-0.4) % Neut % (Auto) (45-73) % Lymph % (Auto) (20-40) % Prentiss % (Auto) (2-11) % Eos % (Auto) (0-4) % Baso % (Auto) (0-2) % Lymph # (Auto) (1.2-4.9) X10*3/uL Prentiss # (Auto) (0.1-1.2) X10*3/uL Eos # (Auto) (0.0-0.4) X10*3/uL Baso # (Auto) (0.0-0.2) X10*3/uL Abs Immat Gran (auto) (0.00-0.03) X10*3/uL Absolute Neuts (auto) (2.0-8.3) x10*3/uL Absolute Nucleated RBC (0.0-0.012) X10*3/uL Nucleated RBC % (auto) (0.0-0.2) /100WBC Smear Tech's Comments Sodium 136 (135-145) mmol/L Potassium 4.6 (3.3-5.1) mmol/L Chloride 103 (96-108) mmol/L Carbon Dioxide 20 L (22-29) mmol/L Anion Gap 18 (12-20) BUN 10 (9-16) mg/dL Creatinine 0.72 (0.5-1.4) mg/dL Estim Creat Clear Calc 88.2 Estimated GFR > 60 Random Glucose 123 H (60-115) mg/dL Lactic Acid (0.5-2.0) mmol/L Calcium 9.0 (8.4-10.2) mg/dL Troponin I High Sens (<3.5-17.0) ng/L Urine Color YELLOW Urine Appearance HAZY Urine pH 7.5 (5.0-8.0) Ur Specific Crescent 1.010 (1.005-1.025) Urine Protein TRACE (NEG-TRACE) MG/DL Urine Glucose (UA) NEG (NEG) MG/DL Urine Ketones NEG (NEG) MG/DL Urine Blood 2+ H (NEG) Urine Nitrite POS H (NEG) Ur Leukocyte Esterase 1+ H (NEG) Urine RBC 1-4 (0) /HPF Urine WBC 5-9 H (0-4) /HPF Ur Squamous Epith Cells 1+ /LPF Calcium Oxalate Crystal TRACE /LPF Amorphous Sediment 2+ /LPF Urine Bacteria 3+ /LPF COVID-19 (YURIY) Negative (Negative) COVID-19 Clin Com See Note Critical Care Time Critical Care Time Critical Care Time: Yes Total Critical Care Time: 55 Attestation: I spent 55 minutes of critical care, with interventions, assessments, speaking to patient, consultants, and family. Discharge Plan Discharge Clinical Impression: Urinary tract infection, Sepsis Patient Disposition: Admitted As Inpatient
[2022-02-13] MEDS: 0.9 % Sodium Chloride 1,000 ML 999 ML IV ×2 (17:32→23:42)
[2022-02-13 17:34] LABS: Basophils Absolute Auto 0.1 X10*3/uL (0.0-0.2); Basophils Percent Auto 0.2 % (0-2); Hematocrit 38.9 % (37.0-47.0); Hemoglobin 12.6 g/dl (12.0-16.0); Imm Gran Abs Auto 0.12 X10*3/uL (0.00-0.03); Imm Gran Pct Auto 0.5 % (0.0-0.4); Lymphocytes Absolute Auto 1.8 X10*3/uL (1.2-4.9); Lymphocytes Percent Auto 7.7 % (20-40); Mean Corpuscular HGB Conc 32.4 g/dl (31.0-35.0); Mean Corpuscular Hemoglobin 31.7 pg (27.0-33.0); Mean Platelet Volume 9.5 fL (9.4-12.3); Monocytes Absolute Auto 0.8 X10*3/uL (0.1-1.2); Monocytes Percent Auto 3.5 % (2-11); Neutrophils Absolute Auto 20.6 x10*3/uL (2.0-8.3); Neutrophils Percent Auto 88.1 % (45-73); Platelet Count 274 X10*3/uL (160-400); Red Blood Count 3.97 X10*6/uL (4.20-5.50); Red Cell Distribution Width 13.2 % (11.0-16.0); SCAN SMEAR FLAG 1; White Blood Count 23.4 X10*3/uL (4.8-10.8)
[2022-02-13 17:42] LABS: MANUAL DIFF FLAG SCAN
[2022-02-13 17:52] LABS: Appearance Urine HAZY; Color Urine YELLOW; Glucose Urine UA NEG (NEG); Leukocyte Esterase Urine 1+ (NEG); Nitrite Urine POS (NEG); PH 7.5 (5.0-8.0); UACC Culture Trigger YES; Urine Blood 2+ (NEG); Urine Ketones NEG (NEG); Urine Protein TRACE MG/DL (NEG-TRACE)
[2022-02-13 17:56] LABS: Troponin-I High Sensitivity 5.8 ng/L (<3.5-17.0)
[2022-02-13] MEDS: cefEPime HCl 2 GM in 0.9 % Sodium Chloride 50 ML IV (17:59)
[2022-02-13 18:03] LABS: SLIDE REVIEW VERIFIED
[2022-02-13 18:15] LABS: Amorphous Sediment Urine 2+ /LPF
[2022-02-13 18:16] LABS: Bacteria Urine 3+ /LPF; Calcium Oxalate Crystals Urine TRACE /LPF; Squamous Epithelial Cell Urine 1+ /LPF
[2022-02-13 18:21] LABS: Anion Gap 18 (12-20); Blood Urea Nitrogen 10 mg/dL (9-16); Carbon Dioxide 20 mmol/L (22-29); Chloride 103 mmol/L (96-108); Creatinine Clr Calc Pharmacy 88.2; Estimated Glomerular Filt Rate > 60; Glucose Random 123 mg/dL (60-115); Potassium 4.6 mmol/L (3.3-5.1); Sodium 136 mmol/L (135-145)
[2022-02-13 18:28] LABS: COVID-19 Test Negative (Negative)
[2022-02-13 18:28] LABS: Lactic Acid 2.5 mmol/L (0.5-2.0)
[2022-02-13] MEDS: vancomycin HCL 1,250 MG in 0.9 % Sodium Chloride 250 ML 166.67 MG IV (18:35)
[2022-02-13 19:31] LABS: Reflex Lactate? Lactic Acid Added
--- NOTE | 2022-02-13 20:31 | PHA.MEDREC ---
Pharmacy Consult ? Medication Reconciliation Pharmacy has completed the medication reconciliation. spoke with pt
--- NOTE | 2022-02-13 21:01 | PHA.PROG ---
Admission Date/Time: February 13, 2022 20:12 Indication: GENITOURINARY Weight in k.9 kg Adjusted body weight in K.8 Young body weight in K.7 Obesity Dosing Indication % IBW:191% Serum Creatinine - Last 168 Hours 02/13/22 17:57 Creatinine 0.72 Estimated CrCl and GFR - Last 168 Hours 02/13/22 17:57 Estim Creat Clear Calc 88.2 Estimated GFR > 60 Vancomycin Loading Dose: 1250 MG + 750 MG Current Vancomycin Dosing Regimen: 750 MG Q12H Vancomycin Monitoring using AUC goal of 400 - 600 range with trough as surrogate marker: Date and Time for next Vancomycin Level to be drawn:02/15 0800 Pharmacist Comments on Vancomycin Plan: Vancomycin dosing will take advantage of [employer]Flow as a clinical decision support tool that uses Bayesian modeling to calculate individual patient's pharmacokinetic parameters and forecast the patient's drug concentration time course with the target goal AUC 24 range of 400 - 600 mg/L/hr.
[2022-02-13] MEDS: vancomycin HCL 750 MG in 0.9 % Sodium Chloride 250 ML 265 MG IV (21:26)
--- NOTE | 2022-02-13 21:32 | PC.NURSE ---
medicated per provider order.
[2022-02-13 22:06] LABS: ~Lactic Acid-LAB USE ONLY 2.6 mmol/L (0.5-2.0)
[2022-02-13 23:20] LABS: Reflex Lactate? 2 Y
--- NOTE | 2022-02-13 23:23 | PM.IMHP ---
History of Present Illness Date of Service: 02/13/22 Chief Complaint: Fever 67-year-old female with a past medical history of hypertension, hyperlipidemia, history of DVT/PE on anticoagulation, CVA, history of cardiac arrest, history of MRSA infection, trigeminal neurology a, neurogenic bladder on chronic Tran, wheelchair-bound, CAD, history of multiple sclerosis, Parkinson's variant of multisystem atrophy, lymphoma, hiatal hernia, arthritis, chronic back pain; had recent admission to the [facility] for UTI-growing Enterococcus/Pseudomonas; presented to the hospital today with a chief complaint of fever. Patient reported that she had a fever at home; concerning for recurrent UTI hence presented to the hospital for further evaluation. Reports he had a Tran changed about 2 days ago. Denies any blood in the urine. Denies any abdominal pain, nausea vomiting. Denies any chest pain or palpitations. Review of all other systems is negative except mentioned above ER course: Per ER team patient noted to have abnormal urinalysis consistent with UTI; given cefepime and vancomycin based on prior cultures at [facility]; admitted to the hospital for further management. [facility] Medical History Anemia Arthritis Back pain Bladder stones Cardiac arrest COVID-19 vaccine series completed CVA (cerebral vascular accident) DVT (deep venous thrombosis) Tran catheter in place Hiatal hernia History of MRSA infection History of neurogenic bladder History of trigeminal neuralgia HTN (hypertension) Hx of lymphoma Hx pulmonary embolism Multiple sclerosis Myocardial infarction NENO (obstructive sleep apnea) Osteoporosis Parkinson's variant of multiple system atrophy Pulmonary emboli Sacral decubitus ulcer Thyroid disease Wheelchair bound Surgical History H/O colonoscopy History of biopsy of bladder History of bladder surgery History of cystoscopy History of intraocular lens implant Hx of adenoidectomy Hx of hysterectomy Hx of laminectomy Hx of lumpectomy Hx of tonsillectomy Hx of vitrectomy Social History Are you a primary point of care technician to a significant other at home: No Do you presently have visiting nurse or other home services: Yes ([facility], [employer]) Patient Tobacco Use Status: Never used Tobacco Use of substances other than those prescribed or required for medical reasons: No Advance Directives: Yes Advance Directives on File: Yes Advance Directives Date on File: 07/05/20 Meds Allergies Allergy/AdvReac Type Severity Reaction Status Date / Time mercury (elemental) Allergy Severe Anaphylaxis Verified 08/17/21 14:10 Penicillins Allergy Severe Hives Verified 08/17/21 14:10 bupropion [From Wellbutrin] Allergy Intermediate Hives Verified 08/17/21 14:10 Iodinated Contrast Media Allergy Intermediate Hives Verified 08/17/21 14:10 [IV Contrast Dye] morphine Allergy Intermediate Hives Verified 08/17/21 14:10 metoclopramide [From Reglan] AdvReac Intermediate Parkinson Verified 08/17/21 14:10 syndrome Active Medications: Current Medications Acetaminophen (Acetaminophen 325 Mg Tablet) 650 mg PO Q6H PRN PRN Reason: Pain, Mild (Pain Scale 1-3) Hydromorphone HCl (Hydromorphone Hcl 0.5 Mg/0.5 Ml Syringe) 0.5 mg IVPUSH Q4H PRN; Protocol PRN Reason: Pain, Severe (Pain Scale 7-10) Cefepime HCl 2 gm/ Sodium (Chloride) 50 mls @ 100 mls/hr IV Q12H [facility] Vancomycin HCl 750 mg/ Sodium (Chloride) 265 mls @ 265 mls/hr IV Q12H [facility] Sodium Chloride (Ns) 1,000 mls @ 999 mls/hr IV .Q1H1M ONE Stop: 02/13/22 23:59 Melatonin (Melatonin 3 Mg Tablet) 6 mg PO BEDTIME PRN PRN Reason: Insomnia Modafinil (Modafinil 100 Mg Tablet) 200 mg PO BID@12 [facility] Pharmacy Consult (Consult Rx Vancomycin Dosing) 1 each MISCELLANE DAILY PRN PRN Reason: Consult order Rivaroxaban (Rivaroxaban 20 Mg Tablet) 20 mg PO DAILY@1700 [facility] Senna (Sennosides 8.6 Mg Tablet) 17.2 mg PO BEDTIME PRN PRN Reason: Constipation Sodium Chloride (0.9 % Sodium Chloride Flush 3 Ml Syringe) 3 ml IVFLUSH QSHIFT [facility] Home Medications Medication Instructions Recorded Confirmed Last Taken Type acetaminophen 500 mg capsule 1,000 mg PO BID 06/18/20 02/13/22 02/13/22 History ascorbic acid (vitamin C) 1,000 mg 1,000 mg PO BID 06/18/20 02/13/22 02/13/22 History tablet baclofen 20 mg tablet 20 mg PO TID 06/18/20 02/13/22 02/13/22 History furosemide 40 mg tablet 40 mg PO DAILY 06/18/20 02/13/22 02/13/22 History levothyroxine 88 mcg tablet 88 mcg PO DAILY 06/18/20 02/13/22 02/13/22 History lisinopril 5 mg tablet 5 mg PO DAILY 06/18/20 02/13/22 02/13/22 History rivaroxaban 20 mg tablet 20 mg PO DAILY 06/18/20 02/13/22 02/13/22 History modafinil 200 mg tablet (Provigil) 1 tab PO BID@08,12 10/22/20 02/13/22 02/13/22 History calcium carbonate 600 mg calcium 1 tab PO BID 07/25/21 02/13/22 02/13/22 History (1,500 mg) tablet acetaminophen 500 mg capsule 500 mg PO BID PRN Pain, Mild 02/13/22 02/13/22 02/13/22 History (Mapap (acetaminophen)) cholecalciferol (vitamin D3) 50 1 cap PO DAILY 02/13/22 02/13/22 02/13/22 History mcg (2,000 unit) capsule furosemide 40 mg tablet 1 tab PO DAILY@1400 PRN Edema 02/13/22 02/13/22 02/13/22 History gabapentin 300 mg capsule 300 mg PO TID 02/13/22 02/13/22 02/13/22 History lactobacillus combination no.4 15 2 cap PO BID 02/13/22 02/13/22 02/13/22 History billion cell capsule (Senior Probiotic) Physical Exam Vital Signs and Narrative: Vital Signs: Last Vital Signs Temp 98.7 F 02/13/22 19:45 Pulse 101 H 02/13/22 20:12 Resp 26 H 02/13/22 20:12 BP 162/67 H 02/13/22 20:12 Pulse Ox 95 02/13/22 20:12 O2 Del Method 02/13/22 20:12 BMI result Body Mass Index 39.6 Gen: Appears be in no acute distress HEENT: NCAT, Moist mucosa. Pulmonary: Vesicular breath sounds, fair air entry CVS: Normal S1-S2 Abdomen: BS+, Soft, Nontender Extremities: Warm well perfused Neuro: Alert and awake. Able to wiggle the toes. Reports that her baseline. Bed-bound. Results Labs CBC and Chem 7: 02/13/22 17:28 02/13/22 17:57 Labs: Laboratory Results - last 24 hr 02/13/22 02/13/22 02/13/22 17:28 17:28 17:28 MCV 98.0 MCH 31.7 MCHC 32.4 RDW 13.2 Plt Count 274 MPV 9.5 Immature Gran % (Auto) 0.5 H Neut % (Auto) 88.1 H Lymph % (Auto) 7.7 L [place] % (Auto) 3.5 Eos % (Auto) 0.0 Baso % (Auto) 0.2 Lymph # (Auto) 1.8 [place] # (Auto) 0.8 Eos # (Auto) 0.0 Baso # (Auto) 0.1 Abs Immat Gran (auto) 0.12 H Absolute Neuts (auto) 20.6 H Absolute Nucleated RBC 0.000 Nucleated RBC % (auto) 0.0 Smear Tech's Comments VERIFIED Anion Gap Estim Creat Clear Calc Estimated GFR Random Glucose Lactic Acid 2.5 H* Lactic Acid F/U @ 2Hr Calcium Troponin I High Sens 5.8 Urine Color Urine Appearance Urine pH Ur Specific [place] Urine Protein Urine Glucose (UA) Urine Ketones Urine Blood Urine Nitrite Ur Leukocyte Esterase Urine RBC Urine WBC Ur Squamous Epith Cells Calcium Oxalate Crystal Amorphous Sediment Urine Bacteria COVID-19 ([facility]) COVID-19 Clin Com 02/13/22 02/13/22 02/13/22 17:35 17:57 17:57 MCV MCH MCHC RDW Plt Count MPV Immature Gran % (Auto) Neut % (Auto) Lymph % (Auto) [place] % (Auto) Eos % (Auto) Baso % (Auto) Lymph # (Auto) [place] # (Auto) Eos # (Auto) Baso # (Auto) Abs Immat Gran (auto) Absolute Neuts (auto) Absolute Nucleated RBC Nucleated RBC % (auto) Smear Tech's Comments Anion Gap 18 Estim Creat Clear Calc 88.2 Estimated GFR > 60 Random Glucose 123 H Lactic Acid Lactic Acid F/U @ 2Hr Calcium 9.0 Troponin I High Sens Urine Color YELLOW Urine Appearance HAZY Urine pH 7.5 Ur Specific [place] 1.010 Urine Protein TRACE Urine Glucose (UA) NEG Urine Ketones NEG Urine Blood 2+ H Urine Nitrite POS H Ur Leukocyte Esterase 1+ H Urine RBC 1-4 Urine WBC 5-9 H Ur Squamous Epith Cells 1+ Calcium Oxalate Crystal TRACE Amorphous Sediment 2+ Urine Bacteria 3+ COVID-19 ([facility]) Negative COVID-19 Clin Com See Note 02/13/22 21:17 MCV MCH MCHC RDW Plt Count MPV Immature Gran % (Auto) Neut % (Auto) Lymph % (Auto) [place] % (Auto) Eos % (Auto) Baso % (Auto) Lymph # (Auto) [place] # (Auto) Eos # (Auto) Baso # (Auto) Abs Immat Gran (auto) Absolute Neuts (auto) Absolute Nucleated RBC Nucleated RBC % (auto) Smear Tech's Comments Anion Gap Estim Creat Clear Calc Estimated GFR Random Glucose Lactic Acid Lactic Acid F/U @ 2Hr 2.6 H* Calcium Troponin I High Sens Urine Color Urine Appearance Urine pH Ur Specific [place] Urine Protein Urine Glucose (UA) Urine Ketones Urine Blood Urine Nitrite Ur Leukocyte Esterase Urine RBC Urine WBC Ur Squamous Epith Cells Calcium Oxalate Crystal Amorphous Sediment Urine Bacteria COVID-19 ([facility]) COVID-19 Clin Com Assessment and Plan (1) Urinary tract infection: Status: Acute Plan 67-year-old female with a past medical history of hypertension, hyperlipidemia, history of DVT/PE on anticoagulation, CVA, history of cardiac arrest, history of MRSA infection, trigeminal neurology a, neurogenic bladder on chronic Tran, wheelchair-bound, CAD, history of multiple sclerosis, Parkinson's variant of multisystem atrophy, lymphoma, hiatal hernia, arthritis, chronic back pain; had recent admission to the [facility] for UTI-growing Enterococcus/Pseudomonas; presented to the hospital today with a chief complaint of fever. Noted to have UTI. Admitted for further management. Recurrent UTI: Patient has chronic indwelling Tran-recently changed about 2 days ago. Prior cultures grow Enterococcus/Pseudomonas. Patient empirically covered with vancomycin and cefepime Id consult for further recommendation. Patient refused Tran change currently Follow-up cultures History of DVT/PE: Continue home Xarelto History of hypertension: Hold home lisinopril/furosemide for now given concerns for infection. History of multiple sclerosis: Continue home baclofen, modafinil, gabapentin DVT prophylaxis: Patient on Xarelto Code status: DNR. Patient reports okay for intubation but not more than 2 days. Quality Stroke Does the patient have a stroke diagnosis?: No VTE Prior VTE?: No VTE Risk Level:: Medical - moderate - high VTE Device Contraindication: Treatment Not Indicated VTE Drug Contraindication: N/A - Med Ordered
[2022-02-13 23:46] LABS: ~Lactic Acid-LAB USE ONLY 1.9 mmol/L (0.5-2.0)
[2022-02-13] MEDS: HYDROmorphone HCl 0.5 MG/0.5 ML SYRINGE IVPUSH (23:46)
[2022-02-14] VITALS (9 sets, daily range): BP systolic 122–169; BP diastolic 54–82; PULSE 79–94; RESP 14–21; TEMP 36.5–37.6; O2SAT 92–99
--- NOTE | 2022-02-14 00:08 | PC.NURSE ---
CIWA = 9, provider notified.
--- NOTE | 2022-02-14 00:14 | PC.NURSE ---
pt a&ox3, febrile @ 100.9, c/o 05/22 headache. medicated per provider order for pain and fever. pt moved to hospital bed and repositioned. lala bag emptied - 2100ml cloudy urine.
[2022-02-14] MEDS: cefEPime HCl 2 GM in 0.9 % Sodium Chloride 50 ML IV ×2 (02:03→15:09)
--- NOTE | 2022-02-14 02:24 | PC.NURSE ---
pt continues to have temp of 99, ice packs placed around pt per provider request.
[2022-02-14 03:57] LABS: MANUAL DIFF FLAG NO
[2022-02-14 03:58] LABS: Basophils Percent Auto 0.2 % (0-2); Eosinophils Percent Auto 0.1 % (0-4); Hematocrit 35.5 % (37.0-47.0); Hemoglobin 11.3 g/dl (12.0-16.0); Imm Gran Abs Auto 0.11 X10*3/uL (0.00-0.03); Imm Gran Pct Auto 0.7 % (0.0-0.4); Lymphocytes Absolute Auto 1.9 X10*3/uL (1.2-4.9); Lymphocytes Percent Auto 11.4 % (20-40); Mean Corpuscular HGB Conc 31.8 g/dl (31.0-35.0); Mean Corpuscular Hemoglobin 31.5 pg (27.0-33.0); Mean Corpuscular Volume 98.9 fL (80.0-98.0); Mean Platelet Volume 9.9 fL (9.4-12.3); Monocytes Absolute Auto 0.6 X10*3/uL (0.1-1.2); Monocytes Percent Auto 3.8 % (2-11); Neutrophils Absolute Auto 13.9 x10*3/uL (2.0-8.3); Neutrophils Percent Auto 83.8 % (45-73); Platelet Count 243 X10*3/uL (160-400); Red Blood Count 3.59 X10*6/uL (4.20-5.50); Red Cell Distribution Width 13.3 % (11.0-16.0); White Blood Count 16.5 X10*3/uL (4.8-10.8)
--- NOTE | 2022-02-14 04:20 | PC.NURSE ---
Took over care at 3:00am from PAUL Corbett. pt is awake, asking appropriate questions, temperature has improved. Will continue to monitor.
[2022-02-14 04:30] LABS: Anion Gap 10 (12-20); Blood Urea Nitrogen 9 mg/dL (9-16); Calcium 8.2 mg/dL (8.4-10.2); Carbon Dioxide 24 mmol/L (22-29); Chloride 106 mmol/L (96-108); Creatinine Clr Calc Pharmacy 104.1; Estimated Glomerular Filt Rate > 60; Glucose Random 115 mg/dL (60-115); Potassium 3.8 mmol/L (3.3-5.1); Sodium 136 mmol/L (135-145)
[2022-02-14] MEDS: Levothyroxine Sodium 88 MCG TABLET PO (06:37)
--- NOTE | 2022-02-14 06:43 | PC.NURSE ---
took over care at 3am from PAUL Corbett, pt sleeping with no signs of distress. Morning care and bed change completed. Will continue to monitor.
--- NOTE | 2022-02-14 07:09 | PC.NURSE ---
pt point care 31. orange juice and milk given po. pt is a&o, not diaphoretic, able to respond question appropriately. Provider Notified.
--- NOTE | 2022-02-14 07:19 | PC.NURSE ---
Notified provider Reji and charge nurse of glucose level. Recommendation to move pt to room 10 to have closer monitoring. Pt is refusing to move. Charge nurse aware. Per provider continue to feed pt and monitor point of care.
[2022-02-14] MEDS: Acetaminophen 325 MG TABLET 650 MG PO (08:21)
[2022-02-14] MEDS: 0.9 % Sodium Chloride Flush 3 ML SYRINGE IVFLUSH ×3 (08:22→21:16)
[2022-02-14] MEDS: modafiniL 100 MG TABLET 200 MG PO (08:22)
--- NOTE | 2022-02-14 08:38 | PC.NURSE ---
rn to rn report given to matt johnson aware of plan of care for transfer to room 482
--- NOTE | 2022-02-14 09:19 | PC.NURSE ---
pt ate 50% of breakfast.
[2022-02-14] MEDS: Baclofen 20 MG TABLET PO ×3 (10:58→21:27)
[2022-02-14] MEDS: Gabapentin 300 MG CAPSULE PO ×3 (10:58→21:27)
[2022-02-14] MEDS: vancomycin HCL 1,000 MG in 0.9 % Sodium Chloride 250 ML 270 MG IV ×2 (10:58→22:04)
--- NOTE | 2022-02-14 11:22 | HE.PHANOTE ---
Vancomcyin Dosing Addendum Patient's renal function is improving. Per insight if we continued on same regimen, patient would be subtheraputic. Increase to vancomycin 1000 mg Q12H. New expected AUC of 509 with a trough of 14.8 Carlotta CarrollD
--- NOTE | 2022-02-14 12:42 | MHC.CM.PN ---
IMM delivered at bedside, original to pt. copy filed in chart. Pt reports she lives alone and is wheelchair bound. Pt receives [employer]IST[employer]URSE [employer]UC[employer] services-107/weekly hours and 14 night hours through [employer]. She is receiving SN from [facility]. Pt reports uses power scooter at home. HCP on file, Vaccinated x4 (pfizer), PCP on file-Kristen Jean Baptiste. Pt reports she will need ambulance transport home. Home with resumption of VNA and [employer]UC[employer] services.
--- NOTE | 2022-02-14 13:38 | P.CNID_ITS ---
History of Present Illness Data of Consult Service Date: 02/14/22 Requesting physician: Jay Bush Primary Care Provider: Kristen Jean Baptiste MD HPI Reason for consult: sepsis She presents with one day of fever and chills and mild generalized abdominal discomfort feels like UTI She has MS and chronic indwelling Tran and sees Dr Bass She last had Pseudomonas auriginosa and enterococcus and was discharged from [facility] on 11/02 with seven days IV Vancomycin and Cefepime She gets catheter changed every three weeks. She also had MRSA sacral wound in 2018 and was treated at [facility] with Daptomycin and then Bactrim 2 DS bid and Rifampin for four weeks. Review of Systems Review of Systems: Yes all other systems are reviewed and are negative PMFSH Past Medical History Medical History Anemia Arthritis Back pain Bladder stones Cardiac arrest COVID-19 vaccine series completed CVA (cerebral vascular accident) DVT (deep venous thrombosis) Tran catheter in place Hiatal hernia History of MRSA infection History of neurogenic bladder History of trigeminal neuralgia HTN (hypertension) Hx of lymphoma Hx pulmonary embolism Multiple sclerosis Myocardial infarction NENO (obstructive sleep apnea) Osteoporosis Parkinson's variant of multiple system atrophy Pulmonary emboli Sacral decubitus ulcer Thyroid disease Wheelchair bound Family History Family history: reviewed and not pertinent Surgical History Surgical History H/O colonoscopy History of biopsy of bladder History of bladder surgery History of cystoscopy History of intraocular lens implant Hx of adenoidectomy Hx of hysterectomy Hx of laminectomy Hx of lumpectomy Hx of tonsillectomy Hx of vitrectomy Social History Social History Household Members: None Housing: Apartment Are you a primary day care attendant to a significant other at home: No Do you presently have visiting nurse or other home services: Yes ([employer]) Patient Tobacco Use Status: Never used Tobacco Second Hand Smoke Exposure: No Advance Directives Date on File: 07/05/20 service: No Current occupational status: disabled Meds Allergies Allergy/AdvReac Type Severity Reaction Status Date / Time mercury (elemental) Allergy Severe Anaphylaxis Verified 02/14/22 13:25 Penicillins Allergy Severe Hives Verified 02/14/22 13:25 bupropion [From Wellbutrin] Allergy Intermediate Hives Verified 02/14/22 13:25 Iodinated Contrast Media Allergy Intermediate Hives Verified 02/14/22 13:25 [IV Contrast Dye] morphine Allergy Intermediate Hives Verified 02/14/22 13:25 metoclopramide [From Reglan] AdvReac Intermediate Parkinson Verified 02/14/22 13:25 syndrome Active Medications: Current Medications Acetaminophen (Acetaminophen 325 Mg Tablet) 650 mg PO Q6H PRN PRN Reason: Pain, Mild (Pain Scale 1-3) Last Admin: 02/14/22 08:21 Dose: 650 mg Baclofen (Baclofen 20 Mg Tablet) 20 mg PO TID [facility] Last Admin: 02/14/22 10:58 Dose: 20 mg Gabapentin (Gabapentin 300 Mg Capsule) 300 mg PO TID [facility] Last Admin: 02/14/22 10:58 Dose: 300 mg Hydromorphone HCl (Hydromorphone Hcl 0.5 Mg/0.5 Ml Syringe) 0.5 mg IVPUSH Q4H PRN; Protocol PRN Reason: Pain, Severe (Pain Scale 7-10) Last Admin: 02/13/22 23:46 Dose: 0.5 mg Cefepime HCl 2 gm/ Sodium (Chloride) 50 mls @ 100 mls/hr IV Q12H [facility] Last Infusion: 02/14/22 02:55 Dose: Infused Vancomycin HCl 1,000 mg/ (Sodium Chloride) 270 mls @ 270 mls/hr IV Q12H [facility] Last Admin: 02/14/22 10:58 Dose: 270 mls/hr Levothyroxine Sodium (Levothyroxine Sodium 88 Mcg Tablet) 88 mcg PO 0600 [facility] Last Admin: 02/14/22 06:37 Dose: 88 mcg Melatonin (Melatonin 3 Mg Tablet) 6 mg PO BEDTIME PRN PRN Reason: Insomnia Modafinil (Modafinil 100 Mg Tablet) 200 mg PO BID@08,12 [facility] Last Admin: 02/14/22 08:22 Dose: 200 mg Pharmacy Consult (Consult Rx Vancomycin Dosing) 1 each MISCELLANE DAILY PRN PRN Reason: Consult order Rivaroxaban (Rivaroxaban 20 Mg Tablet) 20 mg PO DAILY@1700 [facility] Senna (Sennosides 8.6 Mg Tablet) 17.2 mg PO BEDTIME PRN PRN Reason: Constipation Sodium Chloride (0.9 % Sodium Chloride Flush 3 Ml Syringe) [facility] Admin: 02/14/22 08:22 Dose: 3 ml Home Medications Medication Instructions Recorded Confirmed Last Taken Type acetaminophen 500 mg capsule 1,000 mg PO BID 06/18/20 02/13/22 02/13/22 History ascorbic acid (vitamin C) 1,000 mg 1,000 mg PO BID 06/18/20 02/13/22 02/13/22 Hi [place] tablet baclofen 20 mg tablet 20 mg PO TID 06/18/20 02/13/22 02/13/22 History furosemide 40 mg tablet 40 mg PO DAILY 06/18/20 02/13/22 02/13/22 History levothyroxine 88 mcg tablet 88 mcg PO DAILY 06/18/20 02/13/22 02/13/22 History lisinopril 5 mg tablet 5 mg PO DAILY 06/18/20 02/13/22 02/13/22 History rivaroxaban 20 mg tablet 20 mg PO DAILY 06/18/20 02/13/22 02/13/22 History modafinil 200 mg tablet (Provigil) 1 tab PO BID@08,12 10/22/20 02/13/22 02/13/22 History calcium carbonate 600 mg calcium 1 tab PO BID 07/25/21 02/13/22 02/13/22 History (1,500 mg) tablet acetaminophen 500 mg capsule 500 mg PO BID PRN Pain, Mild 02/13/22 02/13/22 02/13/22 History (Mapap (acetaminophen)) cholecalciferol (vitamin D3) 50 1 cap PO DAILY 02/13/22 02/13/22 02/13/22 Hi [place] mcg (2,000 unit) capsule furosemide 40 mg tablet 1 tab PO DAILY@1400 PRN Edema 02/13/22 02/13/22 02/13/22 History gabapentin 300 mg capsule 300 mg PO TID 02/13/22 02/13/22 02/13/22 History lactobacillus combination no.4 15 2 cap PO BID 02/13/22 02/13/22 02/13/22 History billion cell capsule (Senior Probiotic) Physical Exam Vital Signs: Vital Signs: Last Vital Signs Temp 98.0 F 02/14/22 12:00 Pulse 85 02/14/22 12:00 Resp 20 02/14/22 12:00 BP 128/58 L 02/14/22 12:00 Pulse Ox 95 02/14/22 12:00 O2 Del Method 02/14/22 12:00 BMI result Body Mass Index 39.6 Const: General: cooperative HEENT: Head: Yes normal to inspection Face and sinus: Yes normal facial exam Mouth: Normal oral and palatal mucosa present Teeth and gingiva: dentition normal Eyes: General: appearance normal, both eyes and all related structures P upils: Equal, round and reactive pupils present Resp: Effort & Inspection: normal respiratory effort Cardio: Rate: regular rate Rhythm: regular rhythm GI: Palpation (GI): Soft to palpation and nontender : General: Yes no CVA tenderness Back/Spine/Pelvis: Back: no CVA tenderness Skin: General skin exam: no rashes or lesions noted Neuro: Other: weakness bilateral lower extremities Tran in place Cranial nerves: Yes Equal, round and reactive pupils present Extrem: General: Yes normal to inspection Psych: Appearance: grossly normal Results Labs CBC & Chem 7: 02/15/22 05:38 02/15/22 05:38 Labs: Short CBC 02/13/22 02/14/22 Range/Units 17:28 03:32 WBC 23.4 H 16.5 H (4.8-10.8) X10*3/uL Hgb 12.6 11.3 L (12.0-16.0) g/dl Hct 38.9 35.5 L (37.0-47.0) % Plt Count 274 243 (160-400) X10*3/uL BMP 02/13/22 02/14/22 17:57 03:32 Sodium 136 136 Potassium 4.6 3.8 Chloride 103 106 Carbon Dioxide 20 L 24 BUN 10 9 Creatinine 0.72 0.61 Calcium 9.0 8.2 L D Urine 02/13/22 Range/Units 17:35 Urine Color YELLOW Urine Appearance HAZY Urine pH 7.5 (5.0-8.0) Ur Specific [place] 1.010 (1.005-1.025) Urine Protein TRACE (NEG-TRACE) MG/DL Urine Glucose (UA) NEG (NEG) MG/DL Microbiology Microbiology Results: Microbiology 02/13/22 17:35 Urine Catheterized - Tran Catheter Urine Culture - Preliminary Culture in progress. Assessment and Plan (1) Urinary tract infection: Status: Acute (2) Sepsis: Status: Acute this is urinary source sepsis likely Pseudomonas and enterococcus possible (3) Recurrent UTI: Status: Acute Plan Cefepime and Vancomycin possible for total 10 days
--- NOTE | 2022-02-14 14:02 | MHC.CM.PN ---
Patient is active with [facility]. Clinical info has been sent
--- NOTE | 2022-02-14 14:18 | PM.UROCN ---
History of Present Illness Consult details Consult date: 02/14/22 Narrative: Recurring urinary tract infection Michelle is a pleasant female Background of multiple sclerosis with indwelling Tran catheter and multiple recurrent UTI Presents to hospital with fever over 101.5 Last UTI October 2021 - last had Pseudomonas auriginosa and enterococcus and was discharged from [facility]? on 11/02 with seven days IV Vancomycin and Cefepim Recommendation from ID is 10 days of therapy Catheter last changed 3 days ago Review of Systems Constitutional: Constitutional: Reports as per HPI and Reports no additional constitutional complaints Cardiovascular: Cardiovascular: Reports as per HPI and Reports no additional cardiovascular complaints Respiratory: Respiratory: Reports as per HPI and Reports no additional respiratory complaints Gastrointestinal: Gastrointestinal: Reports as per HPI and Reports no additional gastrointestinal complaints Genitourinary: Genitourinary: Reports as per HPI Musculoskeletal: Musculoskeletal: Reports no additional musculoskeletal complaints and Reports as per HPI Neurologic: Reports system reviewed and no additional complaints, except as documented and Reports as per HPI PMFSH Past Medical History Medical History Anemia Arthritis Back pain Bladder stones Cardiac arrest COVID-19 vaccine series completed CVA (cerebral vascular accident) DVT (deep venous thrombosis) Tran catheter in place Hiatal hernia History of MRSA infection History of neurogenic bladder History of trigeminal neuralgia HTN (hypertension) Hx of lymphoma Hx pulmonary embolism Multiple sclerosis Myocardial infarction NENO (obstructive sleep apnea) Osteoporosis Parkinson's variant of multiple system atrophy Pulmonary emboli Sacral decubitus ulcer Thyroid disease Wheelchair bound Family History Family history: reviewed and not pertinent Surgical History Surgical History H/O colonoscopy History of biopsy of bladder History of bladder surgery History of cystoscopy History of intraocular lens implant Hx of adenoidectomy Hx of hysterectomy Hx of laminectomy Hx of lumpectomy Hx of tonsillectomy Hx of vitrectomy Social History Social History Household Members: None Housing: Apartment Are you a primary hemodialysis patient care specialist to a significant other at home: No Do you presently have 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) Patient Tobacco Use Status: Never used Tobacco Second Hand Smoke Exposure: No Advance Directives Date on File: 11/23/20 service: No Current occupational status: disabled Meds Allergies Allergy/AdvReac Type Severity Reaction Status Date / Time mercury (elemental) Allergy Severe Anaphylaxis Verified 02/14/22 13:25 Penicillins Allergy Severe Hives Verified 02/14/22 13:25 bupropion [From Wellbutrin] Allergy Intermediate Hives Verified 02/14/22 13:25 Iodinated Contrast Media Allergy Intermediate Hives Verified 02/14/22 13:25 [IV Contrast Dye] morphine Allergy Intermediate Hives Verified 02/14/22 13:25 metoclopramide [From Reglan] AdvReac Intermediate Parkinson Verified 02/14/22 13:25 syndrome Active Medications: Current Medications Acetaminophen (Acetaminophen 325 Mg Tablet) 650 mg PO Q6H PRN PRN Reason: Pain, Mild (Pain Scale 1-3) Last Admin: 02/14/22 08:21 Dose: 650 mg Baclofen (Baclofen 20 Mg Tablet) 20 mg PO TID [facility] Last Admin: 02/14/22 10:58 Dose: 20 mg Gabapentin (Gabapentin 300 Mg Capsule) 300 mg PO TID [facility] Last Admin: 02/14/22 10:58 Dose: 300 mg Hydromorphone HCl (Hydromorphone Hcl 0.5 Mg/0.5 Ml Syringe) 0.5 mg IVPUSH Q4H PRN; Protocol PRN Reason: Pain, Severe (Pain Scale 7-10) Last Admin: 02/13/22 23:46 Dose: 0.5 mg Cefepime HCl 2 gm/ Sodium (Chloride) 50 mls @ 100 mls/hr IV Q12H [facility] Last Infusion: 02/14/22 02:55 Dose: Infused Vancomycin HCl 1,000 mg/ (Sodium Chloride) 270 mls @ 270 mls/hr IV Q12H [facility] Last Admin: 02/14/22 10:58 Dose: 270 mls/hr Levothyroxine Sodium (Levothyroxine Sodium 88 Mcg Tablet) 88 mcg PO 0600 [facility] Last Admin: 02/14/22 06:37 Dose: 88 mcg Melatonin (Melatonin 3 Mg Tablet) 6 mg PO BEDTIME PRN PRN Reason: Insomnia Modafinil (Modafinil 100 Mg Tablet) 200 mg PO BID@08,12 [facility] Last Admin: 02/14/22 08:22 Dose: 200 mg Pharmacy Consult (Consult Rx Vancomycin Dosing) 1 each MISCELLANE DAILY PRN PRN Reason: Consult order Rivaroxaban (Rivaroxaban 20 Mg Tablet) 20 mg PO DAILY@1700 [facility] Senna (Sennosides 8.6 Mg Tablet) 17.2 mg PO BEDTIME PRN PRN Reason: Constipation Sodium Chloride (0.9 % Sodium Chloride Flush 3 Ml Syringe) 3 ml IVFLUSH QSHIFT [facility] Last Admin: 02/14/22 08:22 Dose: 3 ml Home Medications Medication Instructions Recorded Confirmed Last Taken Type acetaminophen 500 mg capsule 1,000 mg PO BID 06/18/20 02/13/22 02/13/22 History ascorbic acid (vitamin C) 1,000 mg 1,000 mg PO BID 06/18/20 02/13/22 02/13/22 History tablet baclofen 20 mg tablet 20 mg PO TID 06/18/20 02/13/22 02/13/22 History furosemide 40 mg tablet 40 mg PO DAILY 06/18/20 02/13/22 02/13/22 History levothyroxine 88 mcg tablet 88 mcg PO DAILY 06/18/20 02/13/22 02/13/22 History lisinopril 5 mg tablet 5 mg PO DAILY 06/18/20 02/13/22 02/13/22 History rivaroxaban 20 mg tablet 20 mg PO DAILY 06/18/20 02/13/22 02/13/22 History modafinil 200 mg tablet (Provigil) 1 tab PO BID@08,12 10/22/20 02/13/22 02/13/22 History calcium carbonate 600 mg calcium 1 tab PO BID 07/25/21 02/13/22 02/13/22 History (1,500 mg) tablet acetaminophen 500 mg capsule 500 mg PO BID PRN Pain, Mild 02/13/22 02/13/22 02/13/22 History (Mapap (acetaminophen)) cholecalciferol (vitamin D3) 50 1 cap PO DAILY 02/13/22 02/13/22 02/13/22 History mcg (2,000 unit) capsule furosemide 40 mg tablet 1 tab PO DAILY@1400 PRN Edema 02/13/22 02/13/22 02/13/22 History gabapentin 300 mg capsule 300 mg PO TID 02/13/22 02/13/22 02/13/22 History lactobacillus combination no.4 15 2 cap PO BID 07/12/0202/13/22 02/13/22 History billion cell capsule (Senior Probiotic) Physical Exam Vital Signs: Vital Signs: Last Vital Signs Temp 98.0 F 02/14/22 12:00 Pulse 85 02/14/22 12:00 Resp 20 02/14/22 12:00 BP 128/58 L 02/14/22 12:00 Pulse Ox 95 02/14/22 12:00 O2 Del Method 02/14/22 12:00 BMI result Body Mass Index 39.6 Const: General: cooperative, healthy appearing, comfortable and no acute distress Orientation/consciousness: patient oriented x3 HEENT: Face and sinus: Yes normal facial exam Mouth: moist mucous membranes Neck: Neck: Yes normal visual inspection, Yes full ROM and Yes trachea midline Chest: Chest palpation & inspection: normal inspection of the chest Resp: Effort & Inspection: normal respiratory effort, able to speak in complete sentences and no respiratory distress GI: Inspection: Yes normal to inspection Back/Spine/Pelvis: Cervical Spine: normal cervical lordosis Thoracic/Lumbar Spine: thoracic and lumbar spine normal to inspection Skin: General skin exam: no rashes or lesions noted Neuro: General: patient oriented x3, tone normal and moves all extremities Extrem: General: Yes normal to inspection and Yes capillary refill normal Results Labs Result diagrams: 02/14/22 03:32 02/14/22 03:32 Labs: Abnormal lab results 02/13/22 02/13/22 02/13/22 Range/Units 17:28 17:28 17:35 WBC 23.4 H (4.8-10.8) X10*3/uL RBC 3.97 L (4.20-5.50) X10*6/uL Hgb (12.0-16.0) g/dl Hct (37.0-47.0) % MCV (80.0-98.0) fL Immature Gran % (Auto) 0.5 H (0.0-0.4) % Neut % (Auto) 88.1 H (45-73) % Lymph % (Auto) 7.7 L (20-40) % Abs Immat Gran (auto) 0.12 H (0.00-0.03) X10*3/uL Absolute Neuts (auto) 20.6 H (2.0-8.3) x10*3/uL Carbon Dioxide (22-29) mmol/L Anion Gap (12-20) Random Glucose (60-115) mg/dL Lactic Acid 2.5 H* (0.5-2.0) mmol/L Lactic Acid F/U @ 2Hr (0.5-2.0) mmol/L Calcium (8.4-10.2) mg/dL Urine Blood 2+ H (NEG) Urine Nitrite POS H (NEG) Ur Leukocyte Esterase 1+ H (NEG) Urine WBC 5-9 H (0-4) /HPF 02/13/22 02/13/22 02/14/22 Range/Units 17:57 21:17 03:32 WBC 16.5 H (4.8-10.8) X10*3/uL RBC 3.59 L (4.20-5.50) X10*6/uL Hgb 11.3 L (12.0-16.0) g/dl Hct 35.5 L (37.0-47.0) % MCV 98.9 H (80.0-98.0) fL Immature Gran % (Auto) 0.7 H (0.0-0.4) % Neut % (Auto) 83.8 H (45-73) % Lymph % (Auto) 11.4 L (20-40) % Abs Immat Gran (auto) 0.11 H (0.00-0.03) X10*3/uL Absolute Neuts (auto) 13.9 H (2.0-8.3) x10*3/uL Carbon Dioxide 20 L (22-29) mmol/L Anion Gap (12-20) Random Glucose 123 H (60-115) mg/dL Lactic Acid (0.5-2.0) mmol/L Lactic Acid F/U @ 2Hr 2.6 H* (0.5-2.0) mmol/L Calcium (8.4-10.2) mg/dL Urine Blood (NEG) Urine Nitrite (NEG) Ur Leukocyte Esterase (NEG) Urine WBC (0-4) /HPF 02/14/22 Range/Units 03:32 WBC (4.8-10.8) X10*3/uL RBC (4.20-5.50) X10*6/uL Hgb (12.0-16.0) g/dl Hct (37.0-47.0) % MCV (80.0-98.0) fL Immature Gran % (Auto) (0.0-0.4) % Neut % (Auto) (45-73) % Lymph % (Auto) (20-40) % Abs Immat Gran (auto) (0.00-0.03) X10*3/uL Absolute Neuts (auto) (2.0-8.3) x10*3/uL Carbon Dioxide (22-29) mmol/L Anion Gap 10 L (12-20) Random Glucose (60-115) mg/dL Lactic Acid (0.5-2.0) mmol/L Lactic Acid F/U @ 2Hr (0.5-2.0) mmol/L Calcium 8.2 L D (8.4-10.2) mg/dL Urine Blood (NEG) Urine Nitrite (NEG) Ur Leukocyte Esterase (NEG) Urine WBC (0-4) /HPF Short CBC 02/13/22 02/14/22 Range/Units 17:28 03:32 WBC 23.4 H 16.5 H (4.8-10.8) X10*3/uL Hgb 12.6 11.3 L (12.0-16.0) g/dl Hct 38.9 35.5 L (37.0-47.0) % Plt Count 274 243 (160-400) X10*3/uL BMP 02/13/22 02/14/22 17:57 03:32 Sodium 136 136 Potassium 4.6 3.8 Chloride 103 106 Carbon Dioxide 20 L 24 BUN 10 9 Creatinine 0.72 0.61 Calcium 9.0 8.2 L D Urine 02/13/22 Range/Units 17:35 Urine Color YELLOW Urine Appearance HAZY Urine pH 7.5 (5.0-8.0) Ur Specific [place] 1.010 (1.005-1.025) Urine Protein TRACE (NEG-TRACE) MG/DL Urine Glucose (UA) NEG (NEG) MG/DL All other labs normal. Assessment and Plan (1) Urinary tract infection: Status: Acute (2) Sepsis: Status: Acute Plan IV therapy Watch white cell count Continue to managed on symptomatic basis Procedures Date of Service Date of Service: 02/14/22
--- NOTE | 2022-02-14 14:26 | PC.NURSE ---
Pt arrived to floor 10:30am. Pt med reconciliation confirmed with patient's personal list. Pt refused carmera for high fall precautions. Pt was provided bed bath and AM care.
--- NOTE | 2022-02-14 16:06 | HO.PM.IMPN ---
Subjective Subjective Date of Service: 02/14/22 Interval History: the patient was seen and evaluated this morning Laying in bed, feels comfortable overall Denies any fever, chills or shortness of breath No reported other overnight events. Systemic review: No fever, chills or weakness No chest pain, palpitation No shortness of breath or coughing No abdominal pain, nausea or vomiting No urinary symptoms No any rash or wounds Physical Exam Vital Signs: Vital Signs: Last Vital Signs Temp 98.0 F 02/14/22 12:00 Pulse 85 02/14/22 12:00 Resp 20 02/14/22 12:00 BP 128/58 L 02/14/22 12:00 Pulse Ox 95 02/14/22 12:00 O2 Del Method 02/14/22 12:00 BMI result Body Mass Index 39.6 Const: Other: Constitutional : Alert, interactive, not in distress Neck : Normal inspection, Supple Cardiovascular : RRR, no JVP, no lower extremity edema Respiratory : fair bilateral air entry, no crackles, wheezes or rhonchi Gastrointestinal: soft, lax, Normal bowel sounds, Non tender Skin : Warm, Dry Neurological : Alert & oriented x3, bed-bound Objective Data Active Medications Acetaminophen (Acetaminophen 325 Mg Tablet) 650 mg PO Q6H PRN PRN Reason: Pain, Mild (Pain Scale 1-3) Last Admin: 02/14/22 08:21 Dose: 650 mg Documented By: TANVIR Baclofen (Baclofen 20 Mg Tablet) 20 mg PO TID [facility] Last Admin: 02/14/22 15:17 Dose: 20 mg Documented By: MARTA Gabapentin (Gabapentin 300 Mg Capsule) 300 mg PO TID [facility] Last Admin: 02/14/22 15:17 Dose: 300 mg Documented By: MARTA Hydromorphone HCl (Hydromorphone Hcl 0.5 Mg/0.5 Ml Syringe) 0.5 mg IVPUSH Q4H PRN; Protocol PRN Reason: Pain, Severe (Pain Scale 7-10) Last Admin: 02/13/22 23:46 Dose: 0.5 mg Documented By: DENAE Cefepime HCl 2 gm/ Sodium (Chloride) 50 mls @ 100 mls/hr IV Q12H [facility] Last Admin: 02/14/22 15:09 Dose: 100 mls/hr Documented By: MARTA Vancomycin HCl 1,000 mg/ (Sodium Chloride) 270 mls @ 270 mls/hr IV Q12H [facility] Last Infusion: 02/14/22 15:16 Dose: 0 mls/hr Documented By: MARTA Levothyroxine Sodium (Levothyroxine Sodium 88 Mcg Tablet) 88 mcg PO 0600 [facility] Last Admin: 02/14/22 06:37 Dose: 88 mcg Documented By: RICHARD Melatonin (Melatonin 3 Mg Tablet) 6 mg PO BEDTIME PRN PRN Reason: Insomnia Modafinil (Modafinil 100 Mg Tablet) 200 mg PO BID@08,12 [facility] Last Admin: 02/14/22 15:04 Dose: Not Given Documented By: MARTA Non-Admin Reason: Patient Refused Pharmacy Consult (Consult Rx Vancomycin Dosing) 1 each MISCELLANE DAILY PRN PRN Reason: Consult order Rivaroxaban (Rivaroxaban 20 Mg Tablet) 20 mg PO DAILY@1700 [facility] Senna (Sennosides 8.6 Mg Tablet) 17.2 mg PO BEDTIME PRN PRN Reason: Constipation Sodium Chloride (0.9 % Sodium Chloride Flush 3 Ml Syringe) 3 ml IVFLUSH QSHIFT [facility] Last Admin: 02/14/22 15:17 Dose: 3 ml Documented By: MARTA Labs CBC & Chem 7: 02/14/22 03:32 02/14/22 03:32 Labs: Laboratory Results - last 24 hr 02/13/22 02/13/22 02/13/22 17:28 17:28 17:28 MCV 98.0 MCH 31.7 MCHC 32.4 RDW 13.2 Plt Count 274 MPV 9.5 Immature Gran % (Auto) 0.5 H Neut % (Auto) 88.1 H Lymph % (Auto) 7.7 L [place] % (Auto) 3.5 Eos % (Auto) 0.0 Baso % (Auto) 0.2 Lymph # (Auto) 1.8 [place] # (Auto) 0.8 Eos # (Auto) 0.0 Baso # (Auto) 0.1 Abs Immat Gran (auto) 0.12 H Absolute Neuts (auto) 20.6 H Absolute Nucleated RBC 0.000 Nucleated RBC % (auto) 0.0 Smear Tech's Comments VERIFIED Anion Gap Estim Creat Clear Calc Estimated GFR Random Glucose Lactic Acid 2.5 H* Lactic Acid F/U @ 2Hr Lactic Acid F/U @ 4Hr Calcium Troponin I High Sens 5.8 Urine Color Urine Appearance Urine pH Ur Specific [place] Urine Protein Urine Glucose (UA) Urine Ketones Urine Blood Urine Nitrite Ur Leukocyte Esterase Urine RBC Urine WBC Ur Squamous Epith Cells Calcium Oxalate Crystal Amorphous Sediment Urine Bacteria COVID-19 (YURIY) COVID-19 Clin Com 02/13/22 02/13/22 02/13/22 17:35 17:57 17:57 MCV MCH MCHC RDW Plt Count MPV Immature Gran % (Auto) Neut % (Auto) Lymph % (Auto) [place] % (Auto) Eos % (Auto) Baso % (Auto) Lymph # (Auto) [place] # (Auto) Eos # (Auto) Baso # (Auto) Abs Immat Gran (auto) Absolute Neuts (auto) Absolute Nucleated RBC Nucleated RBC % (auto) Smear Tech's Comments Anion Gap 18 Estim Creat Clear Calc 88.2 Estimated GFR > 60 Random Glucose 123 H Lactic Acid Lactic Acid F/U @ 2Hr Lactic Acid F/U @ 4Hr Calcium 9.0 Troponin I High Sens Urine Color YELLOW Urine Appearance HAZY Urine pH 7.5 Ur Specific [place] 1.010 Urine Protein TRACE Urine Glucose (UA) NEG Urine Ketones NEG Urine Blood 2+ H Urine Nitrite POS H Ur Leukocyte Esterase 1+ H Urine RBC 1-4 Urine WBC 5-9 H Ur Squamous Epith Cells 1+ Calcium Oxalate Crystal TRACE Amorphous Sediment 2+ Urine Bacteria 3+ COVID-19 (YURIY) Negative COVID-19 Clin Com See Note 02/13/22 02/13/22 02/14/22 21:17 23:29 03:32 MCV 98.9 H MCH 31.5 MCHC 31.8 RDW 13.3 Plt Count 243 MPV 9.9 Immature Gran % (Auto) 0.7 H Neut % (Auto) 83.8 H Lymph % (Auto) 11.4 L [place] % (Auto) 3.8 Eos % (Auto) 0.1 Baso % (Auto) 0.2 Lymph # (Auto) 1.9 [place] # (Auto) 0.6 Eos # (Auto) 0.0 Baso # (Auto) 0.0 Abs Immat Gran (auto) 0.11 H Absolute Neuts (auto) 13.9 H Absolute Nucleated RBC 0.000 Nucleated RBC % (auto) 0.0 Smear Tech's Comments Anion Gap Estim Creat Clear Calc Estimated GFR Random Glucose Lactic Acid Lactic Acid F/U @ 2Hr 2.6 H* Lactic Acid F/U @ 4Hr 1.9 Calcium Troponin I High Sens Urine Color Urine Appearance Urine pH Ur Specific [place] Urine Protein Urine Glucose (UA) Urine Ketones Urine Blood Urine Nitrite Ur Leukocyte Esterase Urine RBC Urine WBC Ur Squamous Epith Cells Calcium Oxalate Crystal Amorphous Sediment Urine Bacteria COVID-19 (YURIY) COVID-19 QReca! Com 02/14/22 03:32 MCV MCH MCHC RDW Plt Count MPV Immature Gran % (Auto) Neut % (Auto) Lymph % (Auto) [place] % (Auto) Eos % (Auto) Baso % (Auto) Lymph # (Auto) [place] # (Auto) Eos # (Auto) Baso # (Auto) Abs Immat Gran (auto) Absolute Neuts (auto) Absolute Nucleated RBC Nucleated RBC % (auto) Smear Tech's Comments Anion Gap 10 L Estim Creat Clear Calc 104.1 Estimated GFR > 60 Random Glucose 115 Lactic Acid Lactic Acid F/U @ 2Hr Lactic Acid F/U @ 4Hr Calcium 8.2 L D Troponin I High Sens Urine Color Urine Appearance Urine pH Ur Specific [place] Urine Protein Urine Glucose (UA) Urine Ketones Urine Blood Urine Nitrite Ur Leukocyte Esterase Urine RBC Urine WBC Ur Squamous Epith Cells Calcium Oxalate Crystal Amorphous Sediment Urine Bacteria COVID-19 (YURIY) COVID-19 QReca! Com Microbiology Microbiology Results: Microbiology 02/13/22 17:35 Urine Culture - Preliminary Urine Catheterized - Tran Catheter Culture in progress. Assessment and Plan (1) Urinary tract infection: Status: Acute (2) Sepsis: Status: Acute Plan 67-year-old female with a past medical history of hypertension, hyperlipidemia, history of DVT/PE on anticoagulation, CVA, history of cardiac arrest, history of MRSA infection, trigeminal neurology a, neurogenic bladder on chronic Tran, wheelchair-bound, CAD, history of multiple sclerosis, Parkinson's variant of multisystem atrophy, lymphoma, hiatal hernia, arthritis, chronic back pain; had recent admission to the [facility] for UTI-growing Enterococcus/Pseudomonas; presented to the hospital today with a chief complaint of fever. Noted to have UTI. Admitted for further management. Sepsis at admission, resolved Recurrent UTI Patient has chronic indwelling Tran-recently changed about 2 days ago. Prior cultures grow Enterococcus/Pseudomonas. Continue vancomycin and cefepime Id input appreciated Patient refused Tran change currently Follow-up cultures History of DVT/PE Continue home Xarelto History of hypertension Restart lisinopril History of multiple sclerosis Continue home baclofen, modafinil, gabapentin DVT prophylaxis Patient on Xarelto Code status: DNR with trial of intubation The patient will need overnight hospital stay pending final cultures of urine and blood to continue IV antibiotic with possible need for PICC line at time of discharge to prevent possible decompensation to sepsis. Quality Stroke Does the patient have a stroke diagnosis?: No VTE Prior VTE?: No VTE Risk Level:: Medical - moderate - high VTE Device Contraindication: Treatment Not Indicated VTE Drug Contraindication: N/A - Med Ordered
[2022-02-14] MEDS: Rivaroxaban 20 MG TABLET PO (17:34)
[2022-02-15] MEDS: 0.9 % Sodium Chloride Flush 3 ML SYRINGE IVFLUSH ×3 (01:32→22:21)
[2022-02-15] MEDS: cefEPime HCl 2 GM in 0.9 % Sodium Chloride 50 ML IV ×2 (03:25→17:41)
[2022-02-15 04:00] VITALS: BP 149/68; PULSE 85; RESP 19; TEMP 36.3; O2SAT 97
[2022-02-15] MEDS: Levothyroxine Sodium 88 MCG TABLET PO (06:18)
[2022-02-15 06:27] LABS: Hematocrit 34.7 % (37.0-47.0); Hemoglobin 11.2 g/dl (12.0-16.0); Mean Corpuscular HGB Conc 32.3 g/dl (31.0-35.0); Mean Corpuscular Volume 99.1 fL (80.0-98.0); Mean Platelet Volume 10.1 fL (9.4-12.3); Platelet Count 239 X10*3/uL (160-400); Red Cell Distribution Width 13.2 % (11.0-16.0)
[2022-02-15 07:11] LABS: Anion Gap 12 (12-20); Blood Urea Nitrogen 10 mg/dL (9-16); Calcium 8.3 mg/dL (8.4-10.2); Carbon Dioxide 23 mmol/L (22-29); Chloride 108 mmol/L (96-108); Creatinine Clr Calc Pharmacy 104.1; Estimated Glomerular Filt Rate > 60; Glucose Random 127 mg/dL (60-115); Sodium 139 mmol/L (135-145)
[2022-02-15 07:52] VITALS: BP 148/80; PULSE 87; RESP 20; TEMP 36.8; O2SAT 93
[2022-02-15] MEDS: Baclofen 20 MG TABLET PO ×3 (09:23→22:21)
[2022-02-15] MEDS: modafiniL 100 MG TABLET 200 MG PO ×2 (09:23→11:29)
[2022-02-15] MEDS: Gabapentin 300 MG CAPSULE PO ×3 (09:23→22:21)
--- NOTE | 2022-02-15 11:07 | HE.PHANOTE ---
RE ANABELA TROUGH WAS 11 TODAY, INCREASING DOSE TO 1250MG Q12H SUSPECTED AUC OF 525, TROUGH OF 13. NEXT TROUGH IS 02/16 @2100
[2022-02-15] MEDS: vancomycin HCL 1,250 MG in 0.9 % Sodium Chloride 250 ML 166.67 MG IV ×2 (11:20→22:21)
[2022-02-15 11:56] VITALS: BP 145/78; PULSE 88; RESP 20; TEMP 36.8; O2SAT 93
--- NOTE | 2022-02-15 14:53 | HO.PM.IMPN ---
Subjective Subjective Date of Service: 02/15/22 Interval History: Laying in bed, feels comfortable overall anxoius, restless Denies any fever, chills or shortness of breath No reported other overnight events. Systemic review: No fever, chills but feels anxious No chest pain, palpitation No shortness of breath or coughing No abdominal pain, nausea or vomiting No urinary symptoms No any rash or wounds Physical Exam Vital Signs: Vital Signs: Last Vital Signs Temp 98.3 F 02/15/22 11:56 Pulse 88 02/15/22 11:56 Resp 20 02/15/22 11:56 BP 145/78 H 02/15/22 11:56 Pulse Ox 93 02/15/22 11:56 O2 Del Method 02/15/22 11:56 BMI result Body Mass Index 39.6 Const: Other: Constitutional : Alert, interactive, not in distress Neck : Normal inspection, Supple Cardiovascular : RRR, no JVP, no lower extremity edema Respiratory : fair bilateral air entry, no crackles, wheezes or rhonchi Gastrointestinal: soft, lax, Normal bowel sounds, Non tender Skin : Warm, Dry Neurological : Alert & oriented x3, bed-bound Objective Data Active Medications Acetaminophen (Acetaminophen 325 Mg Tablet) 650 mg PO Q6H PRN PRN Reason: Pain, Mild (Pain Scale 1-3) Last Admin: 02/14/22 08:21 Dose: 650 mg Documented By: TANVIR Baclofen (Baclofen 20 Mg Tablet) 20 mg PO TID [facility] Last Admin: 02/15/22 09:23 Dose: 20 mg Documented By: CRISTIAN Gabapentin (Gabapentin 300 Mg Capsule) 300 mg PO TID [facility] Last Admin: 02/15/22 09:23 Dose: 300 mg Documented By: CRISTIAN Hydromorphone HCl (Hydromorphone Hcl 0.5 Mg/0.5 Ml Syringe) 0.5 mg IVPUSH Q4H PRN; Protocol PRN Reason: Pain, Severe (Pain Scale 7-10) Last Admin: 02/13/22 23:46 Dose: 0.5 mg Documented By: NEALDENL Cefepime HCl 2 gm/ Sodium (Chloride) 50 mls @ 100 mls/hr IV Q12H [facility] Last Infusion: 02/15/22 05:33 Dose: 0 mls/hr Documented By: PAULINE Vancomycin HCl 1,250 mg/ (Sodium Chloride) 250 mls @ 166.667 mls/hr IV Q12H [facility] Last Infusion: 02/15/22 13:05 Dose: 0 mls/hr Documented By: GURINDER Levothyroxine Sodium (Levothyroxine Sodium 88 Mcg Tablet) 88 mcg PO 0600 [facility] Last Admin: 02/15/22 06:18 Dose: 88 mcg Documented By: PAULINE Melatonin (Melatonin 3 Mg Tablet) 6 mg PO BEDTIME PRN PRN Reason: Insomnia Modafinil (Modafinil 100 Mg Tablet) 200 mg PO BID@08,12 [facility] Last Admin: 02/15/22 11:29 Dose: 200 mg Documented By: GURINDER Pharmacy Consult (Consult Rx Vancomycin Dosing) 1 each MISCELLANE DAILY PRN PRN Reason: Consult order Rivaroxaban (Rivaroxaban 20 Mg Tablet) 20 mg PO DAILY@1700 [facility] Last Admin: 02/14/22 17:34 Dose: 20 mg Documented By: MARTA Senna (Sennosides 8.6 Mg Tablet) 17.2 mg PO BEDTIME PRN PRN Reason: Constipation Sodium Chloride (0.9 % Sodium Chloride Flush 3 Ml Syringe) 3 ml IVFLUSH QSHIFT [facility] Last Admin: 02/15/22 01:32 Dose: 3 ml Documented By: PAULINE Labs CBC & Chem 7: 02/15/22 05:38 02/15/22 05:38 Labs: Laboratory Results - last 24 hr 02/15/22 02/15/22 02/15/22 05:38 05:38 09:34 MCV 99.1 H MCH 32.0 MCHC 32.3 RDW 13.2 Plt Count 239 MPV 10.1 Absolute Nucleated RBC 0.000 Nucleated RBC % (auto) 0.0 Anion Gap 12 Estim Creat Clear Calc 104.1 Estimated GFR > 60 Random Glucose 127 H Calcium 8.3 L Random Vancomycin 11.0 L Microbiology Microbiology Results: Microbiology 02/13/22 17:35 Urine Culture - Preliminary Urine Catheterized - Tran Catheter Gram negative makayla 02/13/22 17:57 Blood Culture - Preliminary Blood - Venous No growth after 24 hours. 02/13/22 17:28 Blood Culture - Preliminary Blood - Venous No growth after 24 hours. Assessment and Plan (1) Urinary tract infection: Status: Acute Plan 67-year-old female with a past medical history of hypertension, hyperlipidemia, history of DVT/PE on anticoagulation, CVA, history of cardiac arrest, history of MRSA infection, trigeminal neurology a, neurogenic bladder on chronic Tran, wheelchair-bound, CAD, history of multiple sclerosis, Parkinson's variant of multisystem atrophy, lymphoma, hiatal hernia, arthritis, chronic back pain; had recent admission to the [facility] for UTI-growing Enterococcus/Pseudomonas; presented to the hospital today with a chief complaint of fever. Noted to have UTI. Admitted for further management. Sepsis at admission, resolved Recurrent UTI Patient has chronic indwelling Tran-recently changed about 2 days ago. Prior cultures grow Enterococcus/Pseudomonas. Continue vancomycin and cefepime pending final cultures Id input appreciated Patient refused Tran change currently Follow-up cultures History of DVT/PE Continue home Xarelto History of hypertension Restart lisinopril History of multiple sclerosis Continue home baclofen, modafinil, gabapentin DVT prophylaxis Patient on Xarelto Code status: DNR with trial of intubation The patient will need overnight hospital stay pending final cultures of urine and blood to continue IV antibiotic with possible need for mid line at time of discharge to prevent possible decompensation to sepsis. Quality Stroke Does the patient have a stroke diagnosis?: No VTE Prior VTE?: No VTE Risk Level:: Medical - moderate - high VTE Device Contraindication: Treatment Not Indicated VTE Drug Contraindication: N/A - Med Ordered
[2022-02-15 16:00] VITALS: BP 182/85; PULSE 89; RESP 18; TEMP 37.1; O2SAT 95
[2022-02-15] MEDS: Rivaroxaban 20 MG TABLET PO (17:42)
[2022-02-15] MEDS: Acetaminophen 325 MG TABLET 650 MG PO (17:46)
--- NOTE | 2022-02-15 18:15 | PC.NURSE ---
Pt alert and oriented x3. Pt is very difficult to please. Pt requested to wash up but every time someone went to wash her up, she would refuse stating that she needed to get up with a mechanical lift in order to get washed up. Pt offered a sponge bath but refused. She eventually agreed in the afternoon but even then she would give directions and as this RN , and EDUCATION TRAINER would begin, she would start yelling saying that we need to give her time to was her upper body and then she would starting crying and saying that we were yelling at her. This went for good 10mins when we would start and stop. Eventually she got washed and repositioned.
[2022-02-15 20:00] VITALS: BP 181/78; PULSE 90; RESP 19; TEMP 37.1; O2SAT 91
[2022-02-15 23:11] VITALS: BP 130/58; PULSE 84; RESP 19; TEMP 36.2; O2SAT 93
[2022-02-16] MEDS: cefEPime HCl 2 GM in 0.9 % Sodium Chloride 50 ML IV ×2 (00:53→15:21)
[2022-02-16] MEDS: Acetaminophen 325 MG TABLET 650 MG PO ×3 (00:53→15:35)
[2022-02-16 04:00] VITALS: BP 138/56; PULSE 87; RESP 20; TEMP 36.2; O2SAT 95
[2022-02-16] MEDS: Levothyroxine Sodium 88 MCG TABLET PO (06:21)
[2022-02-16 07:23] LABS: Anion Gap 14 (12-20); Blood Urea Nitrogen 12 mg/dL (9-16); Calcium 8.5 mg/dL (8.4-10.2); Carbon Dioxide 23 mmol/L (22-29); Chloride 106 mmol/L (96-108); Creatinine Clr Calc Pharmacy 105.9; Estimated Glomerular Filt Rate > 60; Glucose Random 132 mg/dL (60-115); Potassium 3.7 mmol/L (3.3-5.1); Sodium 139 mmol/L (135-145)
--- NOTE | 2022-02-16 07:38 | HE.PHANOTE ---
KIA PEÑALOZA CONTINUE CURRENT DOSE. NEXT TROUGH 02/16 @2100
[2022-02-16 08:00] VITALS: BP 146/69; PULSE 69; RESP 19; TEMP 36.4; O2SAT 96
[2022-02-16] MEDS: Baclofen 20 MG TABLET PO ×2 (09:11→15:21)
[2022-02-16] MEDS: Gabapentin 300 MG CAPSULE PO ×2 (09:12→15:21)
[2022-02-16] MEDS: 0.9 % Sodium Chloride Flush 3 ML SYRINGE IVFLUSH ×2 (09:12→15:22)
[2022-02-16] MEDS: modafiniL 100 MG TABLET 200 MG PO (09:15)
[2022-02-16] MEDS: vancomycin HCL 1,250 MG in 0.9 % Sodium Chloride 250 ML 166.66 MG IV (09:16)
[2022-02-16 11:23] VITALS: BP 165/78; PULSE 95; RESP 20; TEMP 36.7
--- NOTE | 2022-02-16 11:37 | MHC.CM.PN ---
Addendum entered by Dia Carrillo 02/16/22 16:28: PTS MIDLINE VERIFICATION AND FLUSH ORDERS WERE DELIVERED TO [facility] THEY HAVE CONFIRMED MED/SUPPLY DELIVERY FOR THIS EVENING [facility] WILL SEE PT TOMORROW MORNING FOR FIRST HOME DOSE PT WAS TRANSPORT VIA [facility] PT IS AWARE OF MED DELIVERY TIME AND PLAN OF CARE AT HOME SHE IS AGREEABLE Original Note: PER ID, PT WILL NEED 14 DAYS OF IV CEFEPIME REFERRAL MADE TO [facility] WHO HAS CONFIRMED PTS INSURANCE COVERAGE ONCE PTS MIDLINE IS PLACED, ITS CONFIRMATION AND PTS FLUSH ORDERS WILL BE SENT ONCE RECEIVED, [facility] CAN START PROCESSING PTS MEDS AND IF RECEIVED EARLY ENOUGH, THEY CAN DELIVER PTS MEDS THIS EVENING FOR HER FIRST HOME DOSE TO BE TOMORROW MORNING CM HAS CONTACTED [facility] AND PROVIDED UPDATES, THEY ARE AWARE PT WILL NEED A VISIT TOMORROW MORNING.
--- NOTE | 2022-02-16 12:02 | PM.DS ---
DS: Providers Provider Date of Service: 02/16/22 Date of admission: 02/13/22 20:12 Date of discharge: 02/16/22 Primary care physician: Kristen Jean Baptiste MD Consults: 02/14/22 01:00 Consult to Infectious Diseases Routine Consulting Provider: Willow Stephens Reason for consultation: has chronic lala; p/w UTI; 02/15/22 10:51 Consult to Care Team Routine Comment: Reason for consultation: anxiety, in tears, eval and rec Attending physician on discharge: Simon Lauren Discharging clinician: Omayra Concepcion DS: Diagnosis Discharge Diagnosis (1) Urinary tract infection: Status: Acute (2) Sepsis: Status: Acute (3) Recurrent UTI: Status: Acute DS: Summary Hospital Course Hospital Course: From H&P on day of admission 67-year-old female with a past medical history of hypertension, hyperlipidemia, history of DVT/PE on anticoagulation, CVA, history of cardiac arrest, history of MRSA infection, trigeminal neurology a, neurogenic bladder on chronic Lala, wheelchair-bound, CAD, history of multiple sclerosis, Parkinson's variant of multisystem atrophy, lymphoma, hiatal hernia, arthritis, chronic back pain; had recent admission to the [facility] for UTI-growing Enterococcus/Pseudomonas; presented to the hospital today with a chief complaint of fever.? Patient reported that she had a fever at home; concerning for recurrent UTI hence presented to the hospital for further evaluation.? Reports he had a Lala changed about 2 days ago.? Denies any blood in the urine.? Denies any abdominal pain, nausea vomiting.? Denies any chest pain or palpitations.? Review of all other systems is negative except mentioned above ER course: Per ER team patient noted to have abnormal urinalysis consistent with UTI; given cefepime and vancomycin based on prior cultures at [facility]; admitted to the hospital for further management. Sepsis secondary to UTI. Patient has chronic indwelling Lala secondary to neurogenic bladder from MS-recently changed about 3 days ago.? Prior cultures growing Enterococcus/Pseudomonas.?She was treated with vancomycin and cefepime?initially. final urine cultures on this stay growing Serratia marcescens and Pseudomonas aeruginosa. She was seen by Infectious Diseases who recommended 14 days of cefepime. Blood cultures have remained negative to date. Leukocytosis has resolved and patient has remained afebrile since day of admission. Midline was placed 02/16. She is now stable to return home. Dose of cefepime was given through midline prior to discharge. Plan for 12 more days of cefepime for end date of February 28. She be discharged home to resume home services. Med supply delivery was confirmed for this evening. Patient is aware and agreeable with above plan. She is encouraged to call and schedule follow-up appointment with her PCP Lisinopril was initially held in the setting of sepsis. Will be resumed on discharge as blood pressure have rebounded. No changes were made to baseline medications Time Spent with Patient Time attestation: Total time spent providing and/or coordinating discharge services: Discharge coordination time: Greater than 30 minutes Quality: Safe Use of Opioids Does Pt have an Active Cancer Diagnosis on the Problem List?: No Quality: Stroke Does the patient have a stroke diagnosis?: No Physical Exam Vital Signs: Vital Signs: Last Vital Signs Temp 98.0 F 02/16/22 11:23 Pulse 95 02/16/22 11:23 Resp 20 02/16/22 11:23 BP 165/78 H 02/16/22 11:23 Pulse Ox 96 02/16/22 08:00 O2 Del Method 02/16/22 11:23 O2 Flow Rate 98 02/16/22 11:23 BMI result Body Mass Index 39.6 DS: Data Data Completed and Pending Labs on day of discharge: Laboratory Results - last 24 hr 02/16/22 06:41 Sodium 139 Potassium 3.7 Chloride 106 Carbon Dioxide 23 Anion Gap 14 BUN 12 Creatinine 0.60 Estim Creat Clear Calc 105.9 Estimated GFR > 60 Random Glucose 132 H Calcium 8.5 Preliminary micro results at discharge 02/13/22 17:57 Blood Culture - Preliminary Blood - Venous No growth after 48 hours. 02/13/22 17:28 Blood Culture - Preliminary Blood - Venous No growth after 48 hours. Discharge Plan Discharge Patient Disposition: Home Health Service Discharge Diagnosis: Sepsis secondary to UTI Referrals: [facility] [Other] - 1 Day ([facility] SERVICES WILL RESUME THE DAY AFTER DISCHARGE ) [facility] [Other] ([facility] WILL DELIVER YOUR MEDS AND SUPPLIES THIS EVENING ) Kristen Jean Baptiste MD [Primary Care Provider] - 1 Week Discharge Medications: Continued modafinil [Provigil] 200 mg tablet 1 tab PO BID@08,12 cholecalciferol (vitamin D3) 50 mcg (2,000 unit) capsule 1 cap PO DAILY Senior Probiotic 15 billion cell capsule 2 cap PO BID furosemide 40 mg tablet 1 tab PO DAILY@1400 PRN (Reason: Edema) gabapentin 300 mg capsule 300 mg PO TID acetaminophen [Mapap (acetaminophen)] 500 mg capsule 500 mg PO BID PRN (Reason: Pain, Mild) calcium carbonate 600 mg calcium (1,500 mg) tablet 1 tab PO BID levothyroxine 88 mcg tablet 88 mcg PO DAILY acetaminophen 500 mg capsule 1,000 mg PO BID ascorbic acid (vitamin C) 1,000 mg tablet 1,000 mg PO BID rivaroxaban 20 mg tablet 20 mg PO DAILY baclofen 20 mg tablet 20 mg PO TID furosemide 40 mg tablet 40 mg PO DAILY lisinopril 5 mg tablet 5 mg PO DAILY estradiol 0.01 % (0.1 mg/gram) cream See Rx Instructions .Route DAILY 30 Days Qty: 42.5 2RF Rx Instructions: pea-sized to urethra 2x a week; Discharge Orders: Discharge Order (Routine); Ordered 02/16/22 Ordered By: Omayra Concepcion Activity on Discharge: As tolerated Stand Alone Forms: Patient Portal Discharge page Care Plan Goals: Treatment of UTI Health Concerns: Sepsis secondary to UTI Neurogenic bladder with chronic Lala Plan of Treatment: Complete course of cefepime (2gm bid), with end date of February 28 Call to schedule follow up appointment with PCP No changes made to baseline medications Assessment: see discharge summary Discharge Date/Time: 02/16/22 16:22
--- NOTE | 2022-02-16 15:12 | HO.MIDLINE_ITS ---
PICC Line Insertion MIDLINE INSERTION Diagnosis: UTI Indication: MASK FORMER IV ANTIBIOTICS Pertinent Labs: REVIEWED Technique: Using sterile technique including cap and mask, glove and drape, the LEFT arm was prepped and draped in the usual sterile fashion of full barrier technique with CHG. Using ultrasound guidance, CEPHALIC vein access was obtained IN SINGLE ATTEMPT BY THIS RN. A SINGLE LUMEN, NON-PASV, (20G X 8CM) MIDLINE was positioned. The procedure was performed in -1. Ultrasound was used to document vein patency and for needle entry. A formal ultrasound picture was recorded. [employer] has released the line for use and it is currently dressed with a StatLock, Tegaderm, and CHG disc. Verification has been performed for blood return and line patency. Arm Circumference: 43 CM Equipment: [employer] POWERGLIDE PRO Catheter Type: SINGLE LUMEN, NON-PASV, (20G X 8CM) Lot #: [id number]
[2022-02-16] MEDS: Rivaroxaban 20 MG TABLET PO (15:21)
--- NOTE | 2022-02-16 17:59 | PM.UROPN ---
Subjective Subjective Date of Service: 02/16/22 Interval history: In-hospital today Culture has now come back positive for Serratia and Pseudomonas Appropriate drop in white blood cell Current plan is placement of IV access midline This is plan for this afternoon She may after remain overnight if we cannot showed that line can be accessed After discussion with nurse ammunition storage superintendent they are trying to have her line placed early so that IV dose can be given on floor and she may be discharged home Recommendation to patient to increase intake of fermented foods to restore gut bacteria May benefit from IBS type diet which decreases digestable sugar intake Physical Exam Vital Signs: Vital Signs: Last Vital Signs Temp 98.0 F 02/16/22 11:23 Pulse 95 02/16/22 11:23 Resp 20 02/16/22 11:23 BP 165/78 H 02/16/22 11:23 Pulse Ox 96 02/16/22 08:00 O2 Del Method 02/16/22 11:23 O2 Flow Rate 98 02/16/22 11:23 BMI result Body Mass Index 39.6 Const: General: cooperative, healthy appearing, comfortable and no acute distress Orientation/consciousness: patient oriented x3 HEENT: Face and sinus: Yes normal facial exam Mouth: moist mucous membranes Neck: Neck: Yes normal visual inspection, Yes full ROM and Yes trachea midline Chest: Chest palpation & inspection: normal inspection of the chest Resp: Effort & Inspection: normal respiratory effort, able to speak in complete sentences and no respiratory distress GI: Inspection: Yes normal to inspection Back/Spine/Pelvis: Cervical Spine: normal cervical lordosis Thoracic/Lumbar Spine: thoracic and lumbar spine normal to inspection Skin: General skin exam: no rashes or lesions noted Neuro: General: patient oriented x3, tone normal and moves all extremities Extrem: General: Yes normal to inspection and Yes capillary refill normal Urology Results Labs CBC & Chem 7: 02/15/22 05:38 02/16/22 06:41 Labs: Laboratory Results - last 24 hr 02/16/22 06:41 Sodium 139 Potassium 3.7 Chloride 106 Carbon Dioxide 23 Anion Gap 14 BUN 12 Creatinine 0.60 Estim Creat Clear Calc 105.9 Estimated GFR > 60 Random Glucose 132 H Calcium 8.5 Progress Note: A&P Assessment and plan (1) Urinary tract infection: Status: Acute (2) Sepsis: Status: Acute Plan Antibiotics per Infectious Disease Time Spent With Patient Time: Total time spent is greater than 50% in coordination of care (as documented) at patient's floor/unit and/or counseling patient: Progress Note: Quality Stroke Does the patient have a stroke diagnosis?: No
== END 2022-02-16 16:22 | disposition home health service (06) | DRG 872 ==
LOC: HO.ED 19:13 → HO.EDOVER 20:17 → HO.IMC 02-14 07:39
PROVIDERS: Student in an Organized Health Care Education/Training Program; Admitting Provider Hospitalist; Emergency Provider Internal Medicine; PCP Family Medicine; Visit Provider Physician Assistant Medical
DX: A41.9 Sepsis, unspecified organism (principal); N39.0 Urinary tract infection, site not specified; Z66 Do not resuscitate; Z87.442 Personal history of urinary calculi; Z86.73 Personal history of transient ischemic attack (TIA), and cerebral infarction without residual deficits; Z86.718 Personal history of other venous thrombosis and embolism; Z86.14 Personal history of Methicillin resistant Staphylococcus aureus infection; N31.9 Neuromuscular dysfunction of bladder, unspecified; G47.33 Obstructive sleep apnea (adult) (pediatric); G35 Multiple sclerosis; Z20.822 Contact with and (suspected) exposure to COVID-19; E66.9 Obesity, unspecified; E78.5 Hyperlipidemia, unspecified; Z68.39 Body mass index [BMI] 39.0-39.9, adult; Z87.440 Personal history of urinary (tract) infections; Z99.3 Dependence on wheelchair; Z91.041 Radiographic dye allergy status; Z88.0 Allergy status to penicillin; Z88.5 Allergy status to narcotic agent; Z88.6 Allergy status to analgesic agent; Z79.890 Hormone replacement therapy; Z79.899 Other long term (current) drug therapy
CPT/HCPCS: 36410; 36415; 80048; 80202; 81001; 83605; 84484; 85025; 85027; 87040; 87086; 87088; 87186; 87635; 96361; 96365; 96375; 97166; 99285; C1758; J0692; J1170; J3370

== ENCOUNTER → 2022-04-11 09:48 | Outpatient (BNVA) | payer MEDICARE, MEDICAID, SELFPAY | PROVIDERS: PCP Family Medicine; Visit Provider Urology | DX: N31.9 Neuromuscular dysfunction of bladder, unspecified (principal); N39.0 Urinary tract infection, site not specified | CPT/HCPCS: Q3014 ==

== ENCOUNTER 2022-05-15 10:02 | Day surgery (SDC) | payer MEDICARE, MEDICAID, SELFPAY ==
--- NOTE | 2022-05-12 10:46 | P.CONAN_ITS ---
Documented by User: Magdalena Baumann NP 05/12/22 11:56 HPI - Anesthesia Eval Consult details Narrative: 67yo F for Cystoscopy Botox Injection s/p same 07/2021 with GA-LMA 4 Xarelto for chronic saddle PE's Wheelchair bound - MS/parkinsons PMFSH Active Problems Active Problems: All Active Problems (Updated 02/22/22 @ 00:04 by Background Sarita) Urinary tract infection (Acute) Sepsis (Acute) Multiple sclerosis (Acute) Painful bladder spasm (Acute) Neurogenic urinary bladder disorder (Acute) Past Medical History Medical History Anemia Arthritis Back pain Bladder stones Cardiac arrest COVID-19 vaccine series completed CVA (cerebral vascular accident) DVT (deep venous thrombosis) Tran catheter in place Hiatal hernia History of MRSA infection History of neurogenic bladder History of trigeminal neuralgia HTN (hypertension) Hx of lymphoma Hx pulmonary embolism Multiple sclerosis Myocardial infarction NENO (obstructive sleep apnea) Osteoporosis Parkinson's variant of multiple system atrophy Pulmonary emboli Sacral decubitus ulcer Thyroid disease Wheelchair bound Family History Family history of problems with anesthesia: No Surgical History Surgical History H/O colonoscopy History of biopsy of bladder History of bladder surgery History of cystoscopy History of intraocular lens implant Hx of adenoidectomy Hx of hysterectomy Hx of laminectomy Hx of lumpectomy Hx of tonsillectomy Hx of vitrectomy History of Problems with Anesthesia: No Social History Social History Household Members: None Housing: Apartment Are you a primary manager critical care to a significant other at home: No Do you presently have visiting nurse or other home services: Yes (CMM TECHNICIAN) Patient Tobacco Use Status: Never used Tobacco Second Hand Smoke Exposure: No Advance Directives Date on File: 07/05/20 service: No Current occupational status: disabled Meds Allergies Allergy/AdvReac Type Severity Reaction Status Date / Time mercury (elemental) Allergy Severe Anaphylaxis Verified 02/14/22 13:25 Penicillins Allergy Severe Hives Verified 02/14/22 13:25 bupropion [From Wellbutrin] Allergy Intermediate Hives Verified 02/14/22 13:25 Iodinated Contrast Media Allergy Intermediate Hives Verified 02/14/22 13:25 [IV Contrast Dye] morphine Allergy Intermediate Hives Verified 02/14/22 13:25 metoclopramide [From Reglan] AdvReac Intermediate Parkinson Verified 02/14/22 13:25 syndrome Home Medications Medication Instructions Recorded Confirmed Last Taken Type acetaminophen 500 mg capsule 1,000 mg PO BID 06/18/20 02/13/22 02/13/22 History ascorbic acid (vitamin C) 1,000 mg 1,000 mg PO BID 06/18/20 02/13/22 02/13/22 History tablet baclofen 20 mg tablet 20 mg PO TID 06/18/20 02/13/22 02/13/22 History furosemide 40 mg tablet 40 mg PO DAILY 06/18/20 02/13/22 02/13/22 History levothyroxine 88 mcg tablet 88 mcg PO DAILY 06/18/20 02/13/22 02/13/22 History lisinopril 5 mg tablet 5 mg PO DAILY 06/18/20 02/13/22 05/15/22 History rivaroxaban 20 mg tablet 20 mg PO DAILY 06/18/20 02/13/22 02/13/22 History modafinil 200 mg tablet (Provigil) 1 tab PO BID@08,12 10/22/20 02/13/22 02/13/22 History calcium carbonate 600 mg calcium 1 tab PO BID 07/25/21 02/13/22 02/13/22 History (1,500 mg) tablet acetaminophen 500 mg capsule 500 mg PO BID PRN Pain, Mild 02/13/22 02/13/22 02/13/22 History (Mapap (acetaminophen)) cholecalciferol (vitamin D3) 50 1 cap PO DAILY 02/13/22 02/13/22 02/13/22 History mcg (2,000 unit) capsule furosemide 40 mg tablet 1 tab PO DAILY@1400 PRN Edema 02/13/22 02/13/22 02/13/22 History gabapentin 300 mg capsule 300 mg PO TID 02/13/22 02/13/22 05/15/22 History lactobacillus combination no.4 15 2 cap PO BID 02/13/22 02/13/22 02/13/22 History billion cell capsule (Senior Probiotic) Exam Exam Date and Time: May 12, 2022 1046 Pertinent Lab Results Pertinent Lab Results: Laboratory Tests 02/15/22 02/16/22 05:38 06:41 WBC 9.0 Hgb 11.2 L Hct 34.7 L Plt Count 239 Sodium 139 Potassium 3.7 Chloride 106 Carbon Dioxide 23 BUN 12 Creatinine 0.60 Assessment and Plan Assessment Anesthesia Assessment: Chart Reviewed Final Anesthetic Review Family History of Problems with Anesthesia: No History of Problems with Anesthesia: No Documented by User: Abdirahman Smith MD 05/15/22 17:53 HPI - Anesthesia Eval Consult details Narrative: 67yo F for Cystoscopy Botox Injection s/p same 07/2021 with GA-LMA 4 Xarelto for chronic saddle PE's Wheelchair bound - MS/parkinsons [facility] Past Medical History Medical History Anemia Arthritis Back pain Bladder stones Cardiac arrest COVID-19 vaccine series completed CVA (cerebral vascular accident) DVT (deep venous thrombosis) Tran catheter in place Hiatal hernia History of MRSA infection History of neurogenic bladder History of trigeminal neuralgia HTN (hypertension) Hx of lymphoma Hx pulmonary embolism Multiple sclerosis Myocardial infarction NENO (obstructive sleep apnea) Osteoporosis Parkinson's variant of multiple system atrophy Pulmonary emboli Sacral decubitus ulcer Thyroid disease Wheelchair bound Surgical History Surgical History H/O colonoscopy History of biopsy of bladder History of bladder surgery History of cystoscopy History of intraocular lens implant Hx of adenoidectomy Hx of hysterectomy Hx of laminectomy Hx of lumpectomy Hx of tonsillectomy Hx of vitrectomy Social History Social History Household Members: None Housing: Apartment Are you a primary manager critical care to a significant other at home: No Do you presently have visiting nurse or other home services: Yes (CMM TECHNICIAN) Patient Tobacco Use Status: Never used Tobacco Second Hand Smoke Exposure: No Advance Directives Date on File: 07/05/20 service: No Current occupational status: disabled Meds Allergies Allergy/AdvReac Type Severity Reaction Status Date / Time mercury (elemental) Allergy Severe Anaphylaxis Verified 02/14/22 13:25 Penicillins Allergy Severe Hives Verified 02/14/22 13:25 bupropion [From Wellbutrin] Allergy Intermediate Hives Verified 02/14/22 13:25 Iodinated Contrast Media Allergy Intermediate Hives Verified 02/14/22 13:25 [IV Contrast Dye] morphine Allergy Intermediate Hives Verified 02/14/22 13:25 metoclopramide [From Reglan] AdvReac Intermediate Parkinson Verified 02/14/22 13:25 syndrome Home Medications Medication Instructions Recorded Confirmed Last Taken Type acetaminophen 500 mg capsule 1,000 mg PO BID 06/18/20 02/13/22 02/13/22 History ascorbic acid (vitamin C) 1,000 mg 1,000 mg PO BID 06/18/20 02/13/22 02/13/22 History tablet baclofen 20 mg tablet 20 mg PO TID 06/18/20 02/13/22 02/13/22 History furosemide 40 mg tablet 40 mg PO DAILY 06/18/20 02/13/22 02/13/22 History levothyroxine 88 mcg tablet 88 mcg PO DAILY 06/18/20 02/13/22 02/13/22 History lisinopril 5 mg tablet 5 mg PO DAILY 06/18/20 02/13/22 05/15/22 History rivaroxaban 20 mg tablet 20 mg PO DAILY 06/18/20 02/13/22 02/13/22 History modafinil 200 mg tablet (Provigil) 1 tab PO BID@08,12 10/22/20 02/13/22 02/13/22 History calcium carbonate 600 mg calcium 1 tab PO BID 07/25/21 02/13/22 02/13/22 History (1,500 mg) tablet acetaminophen 500 mg capsule 500 mg PO BID PRN Pain, Mild 02/13/22 02/13/22 02/13/22 History (Mapap (acetaminophen)) cholecalciferol (vitamin D3) 50 1 cap PO DAILY 02/13/22 02/13/22 02/13/22 History mcg (2,000 unit) capsule furosemide 40 mg tablet 1 tab PO DAILY@1400 PRN Edema 02/13/22 02/13/22 02/13/22 History gabapentin 300 mg capsule 300 mg PO TID 02/13/22 02/13/22 05/15/22 History lactobacillus combination no.4 15 2 cap PO BID 02/13/22 02/13/22 02/13/22 History billion cell capsule (Senior Probiotic) Exam Airway Mallampati Class: III TM Dist: >3cm Neck ROM: Full Loose/Missing/Broken Teeth: Yes Heart: S1,S2 Lungs: b/l breath sounds Assessment and Plan Assessment Anesthesia Assessment: Anesthesia Plan Discussed Final Anesthetic Review NPO: Yes ASA Class: III Final Preanesthetic Review: Meds/Allgs Chart Reviewed, Consent Obtained/Reviewed and Anes Risks/Benef Reviewed Patient Risk: High Procedure Risk: Intermediate Anesthetic Plan Anesthetic Plan: GA Disposition: Standard PACU
[2022-05-15 11:10] VITALS: BP 144/85; PULSE 76; RESP 18; TEMP 36.6; O2SAT 99; BMI 45.1
[2022-05-15] MEDS: Lactated Ringers 1,000 ML 100 ML IVCONT (11:42)
--- NOTE | 2022-05-15 12:21 | MHC.SHP ---
Pre-Procedural Eval Section A Date of Service: 05/15/22 The patient is an INPATIENT: No Changes since office visit: No Cold of Flu in the past 2 weeks, No New Medical Problems, No Changes in Medication and No Patient answered all questions The History & Physical has been completed within 30 days and I have reviewed it.: Yes Section B Chief Complaint: dysfunction of bladder Details of Present Illness: for 200 units of botox injection Relevant Family History (Specify if Yes): No Relevant Social History: None Present Medications: see Short Stay Collaborative assessment Medical History: Significant History History of Previous Operations: Relevant previous surgery/procedure and date(s) Allergies: Allergies Allergy/AdvReac Type Severity Reaction Status Date / Time mercury (elemental) Allergy Severe Anaphylaxis Verified 02/14/22 13:25 Penicillins Allergy Severe Hives Verified 02/14/22 13:25 bupropion [From Wellbutrin] Allergy Intermediate Hives Verified 02/14/22 13:25 Iodinated Contrast Media Allergy Intermediate Hives Verified 02/14/22 13:25 [IV Contrast Dye] morphine Allergy Intermediate Hives Verified 02/14/22 13:25 metoclopramide [From Reglan] AdvReac Intermediate Parkinson Verified 02/14/22 13:25 syndrome Review of Systems Sugical H&P ROS: Negative: Constitution, Cardiovascular, Respiratory, Neurological, Psychiatric, Hem-Onc, Allergic/Immunologic, Gastrointestinal, Genitourinary, Musculoskeletal, Integumentary, Endocrine and Eyes/Ears/Nose/Throat Exam Surgical H&P Exam: Normal: HEENT, Normal: Heart, Normal: Lungs, Normal: Extremities, Normal: Abdomen, Normal: Skin and Normal: Neurological Plan Diagnosis/Plan: Unchanged ( for 200 units Botox injection) I have reviewed the history and physical and performed a pertinent physical examination on my patient. No changes have occurred unless specified.
[2022-05-15 13:23] VITALS: BP 143/74; PULSE 83; RESP 14; TEMP 37.2; O2SAT 96
[2022-05-15 13:28] VITALS: BP 143/74; PULSE 79; RESP 15; O2SAT 98
--- NOTE | 2022-05-15 13:29 | W.PM.OPN ---
Operative Note Operative Note Date of Service: 05/15/22 Narrative: PreOperative Diagnosis:? Neurogenic bladder with spasm in setting of multiple sclerosis Post Operative Diagnosis:? Above Procedure:? Cystoscopy with injection 200 units Botox intra detrusor muscle Surgeon: Dr Gage Bass Anesthesia:? Sedation Indications for procedure: Is a very pleasant 67-year-old female.? Neurogenic bladder with indwelling Tran catheter.? Bladder spasm with leakage around Tran catheter.? For prior Botox injection with success in managing bladder spasms? For cystoscopy and Botox injection.? Is aware of the risks and benefits particularly related to urinary retention and possible infection. Procedure: After informed consent was verified the patient was brought to the operating room and placed in a supine position.? Anesthesia was administered per protocol. Cystoscopy performed with 22 Georgian cystoscope.? Bladder was emptied of urine.? There were superficial bladder edematous changes consistent with long-term Tran catheter positioning.? These will looked improved compared to previously.? There was no evidence of any bladder debris or bladder stones. Bladder was refilled.? Using 200 units of Botox mixed in 20 cc of normal saline injections were placed at the back wall of the bladder.? One? cc placed at each injection site.? Injections were placed in a grid 5 across and for high.? Injections were placed from the inferior to superior position.? Trabeculations on the bladder wall with targeted for each injection site. Possette dual balloon catheter placed Procedure was tolerated well.? Patient was extubated and transferred in stable condition to the recovery area. Pathology: None Drains: None
[2022-05-15 13:33] VITALS: BP 143/74; PULSE 77; RESP 15
[2022-05-15 13:38] VITALS: BP 135/68; PULSE 86; RESP 16; O2SAT 96
[2022-05-15 13:45] VITALS: TEMP 36.9
== END 2022-05-15 14:45 | disposition home or self-care (01) ==
PROVIDERS: PCP Family Medicine; Visit Provider Urology
PROC: 3E0K8GC Introduction of Other Therapeutic Substance into Genitourinary Tract, Via Natural or Artificial Opening Endoscopic (ICD-10-PCS; CPT 52287; principal; 2022-05-15 11:20)
DX: N31.9 Neuromuscular dysfunction of bladder, unspecified (principal); N39.0 Urinary tract infection, site not specified; N32.89 Other specified disorders of bladder; Z96.0 Presence of urogenital implants; Z86.14 Personal history of Methicillin resistant Staphylococcus aureus infection; G35 Multiple sclerosis; G23.2 Striatonigral degeneration; Z99.3 Dependence on wheelchair; M81.0 Age-related osteoporosis without current pathological fracture; I10 Essential (primary) hypertension; D64.9 Anemia, unspecified; E03.9 Hypothyroidism, unspecified; G47.33 Obstructive sleep apnea (adult) (pediatric); Z86.711 Personal history of pulmonary embolism; Z87.442 Personal history of urinary calculi; Z86.73 Personal history of transient ischemic attack (TIA), and cerebral infarction without residual deficits; Z85.72 Personal history of non-Hodgkin lymphomas; Z79.01 Long term (current) use of anticoagulants; Z79.899 Other long term (current) drug therapy; Z88.0 Allergy status to penicillin; Z66 Do not resuscitate; Z88.8 Allergy status to other drugs, medicaments and biological substances; Z91.041 Radiographic dye allergy status
CPT/HCPCS: 52287; J0585; J0692; J3010

== ENCOUNTER → 2022-06-06 11:45 | Outpatient (BNVA) | payer MEDICARE, MEDICAID, SELFPAY | PROVIDERS: PCP Family Medicine; Visit Provider Urology | DX: G35 Multiple sclerosis (principal); R30.1 Vesical tenesmus; N39.0 Urinary tract infection, site not specified | CPT/HCPCS: Q3014 ==

== ENCOUNTER → 2022-10-03 13:03 | Outpatient (BNVA) | payer MEDICARE, MEDICAID, SELFPAY | PROVIDERS: PCP Family Medicine; Visit Provider Urology | DX: N39.0 Urinary tract infection, site not specified (principal); N31.9 Neuromuscular dysfunction of bladder, unspecified | CPT/HCPCS: Q3014 ==

== ENCOUNTER → 2022-11-14 09:39 | Outpatient (BNVA) | payer MEDICARE, MEDICAID, SELFPAY | PROVIDERS: PCP Family Medicine; Visit Provider Urology | DX: N31.9 Neuromuscular dysfunction of bladder, unspecified (principal); G35 Multiple sclerosis; Z96.0 Presence of urogenital implants; Z79.899 Other long term (current) drug therapy; Z99.3 Dependence on wheelchair | CPT/HCPCS: Q3014 ==

== ENCOUNTER 2023-02-07 14:03 | Outpatient (AMB) | payer MEDICARE, MEDICAID, SELFPAY ==
--- NOTE | 2023-02-07 14:03 | MHC.OFFVIS ---
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: No Allergies mercury (elemental) Allergy (Severe, Verified 02/07/23 14:03) Anaphylaxis Penicillins Allergy (Severe, Verified 02/07/23 14:03) Hives bupropion [From Wellbutrin] Allergy (Intermediate, Verified 02/07/23 14:03) Hives Iodinated Contrast Media [IV Contrast Dye] Allergy (Intermediate, Verified 02/07/23 14:03) Hives morphine Allergy (Intermediate, Verified 02/07/23 14:03) Hives metoclopramide [From Reglan] Adverse Reaction (Intermediate, Verified 02/07/23 14:03) Parkinson syndrome Medication List - Last Reconciled 02/07/23 by Gage Bass MD acetaminophen (Mapap (acetaminophen)) 500 mg PO BID PRN acetaminophen 1,000 mg PO BID ascorbic acid (vitamin C) (Vitamin C) 1,000 mg PO BID baclofen 20 mg PO TID calcium carbonate 1 tab PO BID cholecalciferol (vitamin D3) 1 cap PO DAILY docusate sodium 100 mg PO DAILY estradiol 0.01%(0.1mg/gram) pea-sized to urethra 2x a week; 30 days fosfomycin tromethamine 1 packet PO Q OTHER DAY 6 days furosemide 1 tab PO DAILY@1400 PRN furosemide 40 mg PO DAILY gabapentin 300 mg PO TID lactobacillus combination no.4 (Senior Probiotic) 2 caps PO BID levothyroxine 88 mcg PO DAILY lisinopril 5 mg PO DAILY modafinil (Provigil) 1 tab PO BID@08,12 rivaroxaban 20 mg PO DAILY HPI HPI Comments History of Present Illness Details Michelle is a pleasant female. She is a patient of Dr. Jean Baptiste. She is seen for following urologic conditions - multiple sclerosis - botox with indwelling catheter - neurogenic bladder - recurring UTIs Telemedicine evaluation 15 minute consultation DoximAdTotum uday Video attempted Fosfomycin refill sent Uses estradiol on urethral opening Stable with bladder - no spasms Evaluation recently for vaginal discharge ongoing Switched to [facility] VNA - uses Duette catheter 18 Bahraini every 3 weeks - which appears to protect bladder ID Physician - [facility] Dr Kary Johnson - Neurogenic Bladder: Recurring urinary tract infection, bladder spasm Previously had Pseudomonas infection responsive to ciprofloxacin UTI appears to be decreasing with combination of Estrace, bladder irrigation - gram positive cocci Urinary retention initially found longstanding history. Diagnosed with multiple sclerosis approximately 15 years ago. Had been followed by Dr. Avina for many years Initially managed with clean intermittent catheterization Subsequently managed with indwelling Tran catheter Had been discussion of suprapubic tube placement however VNA nurses prevent this recurring uti 05/[address] Spencer and cystoscopy with removal of bladder stones - 12/01 cystoscopy Botox biopsy performed with chronic cystitis Botox Initial 03/01, 07/02, 10/31, 08/02, 05/04 200 units Urine cultures - Pseudomonas fluoroquinolone resistant, citrobacter amp/cefazolin resistant Can only tolerate short course of fluroquinolones Has standing order for urine culture collection through VNA Previously used fosfomycin for catheter changes PFSH Medical History Anemia Arthritis Back pain Bladder stones Cardiac arrest COVID-19 vaccine series completed CVA (cerebral vascular accident) DVT (deep venous thrombosis) Tran catheter in place Hiatal hernia History of MRSA infection History of neurogenic bladder History of trigeminal neuralgia HTN (hypertension) Hx of lymphoma Hx pulmonary embolism Multiple sclerosis Myocardial infarction NENO (obstructive sleep apnea) Osteoporosis Parkinson's variant of multiple system atrophy Pulmonary emboli Recurrent UTI Sacral decubitus ulcer Thyroid disease Wheelchair bound Surgical History H/O colonoscopy History of biopsy of bladder History of bladder surgery History of cystoscopy History of intraocular lens implant Hx of adenoidectomy Hx of hysterectomy Hx of laminectomy Hx of lumpectomy Hx of tonsillectomy Hx of vitrectomy Social History Household Members: None Housing: Apartment Are you a primary healthcare economics manager to a significant other at home: No Do you presently have visiting nurse or other home services: Yes (ADMINISTRATIVE SERVICES SPECIALIST) Patient Tobacco Use Status: Never used Tobacco Second Hand Smoke Exposure: No Advance Directives Date on File: 07/05/20 service: No Current occupational status: disabled Review of Systems Const All systems reviewed & are unremarkable except as noted in HPI and below Reports no additional complaints Resp Reports no additional complaints GI Reports no additional complaints Reports as per HPI Musc Reports no additional complaints Physical Exam Telemedicine evaluation Appropriate responses Regular breathing rate and rhythm HEENT Head: Yes normal to inspection Ears: hearing grossly normal bilaterally Eyes General: appearance normal, both eyes and all related structures Neck Neck: Yes normal visual inspection Chest Chest palpation & inspection: normal inspection of the chest Resp Effort & Inspection: normal respiratory effort and able to speak in complete sentences Assessment & Plan Assessment & Plan (1) Recurrent UTI (urinary tract infection): Code(s): N39.0 - Urinary tract infection, site not specified (2) Neurogenic urinary bladder disorder: Code(s): N31.9 - Neuromuscular dysfunction of bladder, unspecified Plan 6m f/u Medications: Changed From estradiol 0.01%(0.1mg/gram) pea-sized to urethra 2x a week; 30 days 42.5 grams 2RF G35 - Multiple sclerosis, N95.2 - Postmenopausal atrophic vaginitis To estradiol 0.01%(0.1mg/gram) pea-sized to urethra 3x a week; 42.5 grams 2RF 30 days G35 - Multiple sclerosis, N95.2 - Postmenopausal atrophic vaginitis Refilled fosfomycin tromethamine 1 packet PO Q OTHER DAY 3 ea 1RF 6 days Patient Instructions: Imaging studies, laboratory and physical exam results were discussed and reviewed in detail. No major barriers to patient understanding were identified. An opportunity to ask questions regarding the treatment plan was provided. All questions were answered. The patient expressed understanding and agreement with the above treatment plan. The patient is aware they should contact our office by phone for worsening of their current condition or the appearance of new urologic symptoms. Compliance is encouraged with any medications and followup testing that is ordered. It is a privilege to participate in the urologic care of your patient. If you have any questions or concerns regarding treatment for the above conditions, or other urologic issues, please do not hesitate to contact me. The office telephone contact is [phone]. This note is constructed using voice recognition software. While every effort has been made to ensure accuracy guillotine operator errors may have been included. Yours sincerely, Dr Gage Bass MD, [facility] - Urology Providers of Expert, Compassionate Care for the Genitourinary System Telehealth Telehealth Location of provider rendering services: practice address Location of patient: address on file Patient Identification confirmed using: Name, : Yes Telehealth method: voice only Patient verbally consented to treatment: Yes Patient verbally consented to billing insurance company: Yes Patient informed of any privacy concerns related to visit: Yes Coding Level of Care Code Tele Est Pt Level 3 (76389) Diagnoses Recurrent UTI (urinary tract infection) N39.0 Neurogenic urinary bladder disorder N31.9
== END 2023-02-07 15:51 | disposition home or self-care (01) ==
LOC: HO.HUSH 14:03
PROVIDERS: PCP Family Medicine; Visit Provider Urology
DX: N39.0 Urinary tract infection, site not specified (principal); N31.9 Neuromuscular dysfunction of bladder, unspecified
CPT/HCPCS: 99442

== ENCOUNTER → 2023-02-07 14:03 | Outpatient (BNVA) | payer MEDICARE, MEDICAID, SELFPAY | PROVIDERS: PCP Family Medicine; Visit Provider Urology ==

== ENCOUNTER 2023-07-12 14:28 | Inpatient (IN) | payer MEDICARE, MEDICAID, SELFPAY ==
--- NOTE | ~2023-07-12 | XR_ITS ---
EXAMINATION: XR CHEST CLINICAL INFORMATION: Fever COMPARISON: None available. TECHNIQUE: Frontal view of the chest was obtained. FINDINGS: The heart and pulmonary vessels appear normal. The aorta is unfolded. Surgical clips are present in the right axilla. Severe degenerative changes are seen in the right shoulder with subchondral cysts in the glenoid. Some mild bibasilar scarring is seen. No infiltrates, pleural effusions or suspicious lung masses seen. XR/XR chest 1V IMPRESSION: No acute intrathoracic disease. Severe degenerative changes right shoulder.
--- NOTE | 2023-07-12 14:30 | ED.GENADULT ---
HPI - General Adult General Chief complaint: General Medical Stated complaint: FEVER 99.1,?UTI PER EMS Time Seen by Provider: 07/12/23 14:28 Source: patient and old records reviewed Mode of arrival: EMS Limitations: no limitations History of Present Illness HPI narrative: 68 yo female with PMH of hypertension, HLD, history of DVT/PE on xarelto, CVA, history of cardiac arrest, history of MRSA infection, trigeminal neurology, neurogenic bladder on chronic Tran, WC bound, CAD, history of MS, Parkinson's variant of multisystem atrophy, lymphoma, hiatal hernia, arthritis, chronic back pain last admitted here back in February for UTI grew out Pseudomonas and Serratia marcescens both S to cefepime here with c/o weakness, lethargy and fever of 102 today by HEAD INS[employer]. She notes this happens when she has UTI. States she went to [facility] yesterday but no urine was checked told it was possibly due to Moderna vaccine from 1 week ago. MD complaint: weakness, fevers Onset (ago): day(s) (weakness 3 days, fever 1 day) Severity: moderate Relieving factors: none Exacerbating factors: none Associated symptoms: loss of appetite, malaise and weakness Treatments prior to arrival: none Related Data Home Medications Medication Instructions Recorded Confirmed acetaminophen 500 mg capsule 1,000 mg PO BID 06/18/20 02/07/23 baclofen 20 mg tablet 20 mg PO TID 06/18/20 02/07/23 furosemide 40 mg tablet 40 mg PO DAILY 06/18/20 02/07/23 levothyroxine 88 mcg tablet 88 mcg PO DAILY 06/18/20 02/07/23 lisinopril 5 mg tablet 5 mg PO DAILY 06/18/20 02/07/23 rivaroxaban 20 mg tablet 20 mg PO DAILY 06/18/20 02/07/23 modafinil 200 mg tablet (Provigil) 1 tab PO BID@08,12 10/22/20 02/07/23 calcium carbonate 600 mg calcium 1 tab PO BID 07/25/21 02/07/23 (1,500 mg) tablet acetaminophen 500 mg capsule 500 mg PO BID PRN Pain, Mild 02/13/22 02/07/23 (Mapap (acetaminophen)) cholecalciferol (vitamin D3) 50 1 cap PO DAILY 02/13/22 02/07/23 mcg (2,000 unit) capsule furosemide 40 mg tablet 1 tab PO DAILY@1400 PRN Edema 02/13/22 02/07/23 gabapentin 300 mg capsule 300 mg PO TID 02/13/22 02/07/23 lactobacillus combination no.4 15 2 cap PO BID 02/13/22 02/07/23 billion cell capsule (Senior Probiotic) ascorbic acid (vitamin C) 1,000 mg 1,000 mg PO BID 11/14/22 02/07/23 tablet (Vitamin C) docusate sodium 100 mg capsule 100 mg PO DAILY 11/14/22 02/07/23 Previous Rx's Medication Instructions Recorded estradiol 0.01% (0.1 mg/gram) See Rx Instructions .Route DAILY 02/07/23 vaginal cream 30 days #42.5 grams sulfamethoxazole 800 1 tab PO BID 10 days #20 tabs 06/15/23 mg-trimethoprim 160 mg tablet (Bactrim DS) Allergies Allergy/AdvReac Type Severity Reaction Status Date / Time mercury (elemental) Allergy Severe Anaphylaxis Verified 02/07/23 14:03 Penicillins Allergy Severe Hives Verified 02/07/23 14:03 bupropion [From Wellbutrin] Allergy Intermediate Hives Verified 02/07/23 14:03 Iodinated Contrast Media Allergy Intermediate Hives Verified 02/07/23 14:03 [IV Contrast Dye] morphine Allergy Intermediate Hives Verified 02/07/23 14:03 metoclopramide [From Reglan] AdvReac Intermediate Parkinson Verified 02/07/23 14:03 syndrome Review of Systems Review of Systems: Constitutional : pos Fever, pos Chills, pos Fatigue ENT/Mouth : No sore throat, No Rhinorrhea Eyes: No Eye Pain, No Swelling, No Redness Cardiovascular : No Chest Pain, No SOB, No Dyspnea on Exertion Respiratory : No Cough, No Sputum Gastrointestinal : No Nausea, No Vomiting, No Diarrhea, No abdominal Pain Genitourinary : No Dysuria, No Urinary Frequency, No Hematuria, Musculoskeletal : No joint pain, No Myalgias, No Joint Swelling Skin : No Skin Lesions, No rash Neuro : pos Weakness, No Numbness, No Dizziness, noHeadache Psych : No Anxiety/Panic, No Depression Heme/Lymph: No Bruising, No Bleeding,No Lymphadenopathy Endocrine : No Polyuria, No Polydipsia All other systems reviewed and are negative [facility] Past Medical History Attestation statement: The following information was validated with the patient. Source: old records reviewed Medical History Sacral decubitus ulcer Pulmonary emboli Cardiac arrest History of trigeminal neuralgia COVID-19 vaccine series completed Osteoporosis NENO (obstructive sleep apnea) Parkinson's variant of multiple system atrophy Wheelchair bound Thyroid disease History of neurogenic bladder History of MRSA infection Hx of lymphoma Arthritis Back pain Hx pulmonary embolism DVT (deep venous thrombosis) Anemia Hiatal hernia Tran catheter in place Bladder stones Multiple sclerosis CVA (cerebral vascular accident) Myocardial infarction HTN (hypertension) Recurrent UTI Surgical History Hx of hysterectomy Hx of lumpectomy Hx of vitrectomy History of intraocular lens implant Hx of adenoidectomy Hx of tonsillectomy Hx of laminectomy History of cystoscopy History of biopsy of bladder History of bladder surgery H/O colonoscopy Social History Social History Household Members: None Housing: Apartment Are you a primary primary care nurse to a significant other at home: No Do you presently have visiting nurse or other home services: Yes ([employer]) Patient Tobacco Use Status: Never used Tobacco Second Hand Smoke Exposure: No Advance Directives: Yes Advance Directives on File: Yes Advance Directives Date on File: 07/05/20 service: No Current occupational status: disabled Physical Exam ED Vital Signs: Vital Signs - 24 hr 07/12/23 14:51 07/12/23 17:47 Temperature 98.4 F 98.3 F Pulse Rate 91 87 Respiratory Rate 18 16 Blood Pressure 111/59 L 135/66 Pulse Oximetry 94 97 Oxygen Delivery Method Room Air Room Air BMI result Body Mass Index 32.7 Appearance: Alert. Oriented X3. No acute distress. Eyes: Pupils equal, round and reactive to light. ENT: Pharynx normal. Neck: Normal inspection. Neck supple. CVS: Normal heart rate and rhythm. Pulses normal. Respiratory: No respiratory distress. Breath sounds normal. Abdomen: Soft and nontender. Skin: Skin warm and dry. Normal skin color. Normal skin turgor. Extremities: No lower extremity edema. No calf ttp Neuro: Oriented X 3. weakness bilateral lower legs baseline, can wiggle toes on left foot baseline Course Course Course Narrative: [facility] urine culure pending all done 07/11 WBC 10.4 Medications Administered Discontinued Medications Generic Name Dose Route Start Last Admin Trade Name Xenia PRN Reason Stop Dose Admin Sodium Chloride 1,000 mls @ 999 mls/hr 07/12/23 14:45 07/12/23 17:19 Ns IVCONT 07/12/23 15:45 Infused .Q1H1M JUWAN Infusion Cefepime HCl 1 gm/ Sodium 50 mls @ 100 mls/hr 07/12/23 14:53 07/12/23 17:19 Chloride IV 07/12/23 15:22 Infused ONCE ONE Infusion Medical Decision Making Medical Decision Making MDM Narrative: 68 yo female with PMH of hypertension, HLD, history of DVT/PE on xarelto, CVA, history of cardiac arrest, history of MRSA infection, trigeminal neurology, neurogenic bladder on chronic Tran, WC bound, CAD, history of MS, Parkinson's variant of multisystem atrophy, lymphoma, hiatal hernia, arthritis, chronic back pain here with c/o fever up to 102 at home and lethargy - lethargy for 3 days and fever today. At this time will need labs, CXR, UA, and start on empiric cefepime. I am going to obtain testing from [facility] as well. Differential Diagnosis Differential Diagnoses: The differential diagnosis associated with the presentation includes fatigue, viral syndrome, weakness, dehydration, UTI, pneumonia Admission/Observation Consideration of admission/observation: Escalation of care including admission/observation considered admit for IV antibiotics Consult Healthcare Provider Management of the patient was discussed with: Hospitalist (will admit) Lab Data [facility] Lab Attestation statement: I reviewed the patient's lab results. 07/12/23 15:09 07/12/23 15:09 Labs: Lab Results 07/12/23 07/12/23 Range/Units 15:09 17:48 WBC 15.5 H (4.8-10.8) X10*3/uL RBC 3.90 L (4.20-5.50) X10*6/uL Hgb 11.7 L (12.0-16.0) g/dl Hct 37.6 (37.0-47.0) % MCV 96.4 (80.0-98.0) fL MCH 30.0 (27.0-33.0) pg MCHC 31.1 (31.0-35.0) g/dl RDW 14.0 (11.0-16.0) % Plt Count 283 (160-400) X10*3/uL MPV 9.7 (9.4-12.3) fL Immature Gran % (Auto) 0.6 H (0.0-0.4) % Neut % (Auto) 80.1 H (45-73) % Lymph % (Auto) 13.5 L (20-40) % [place] % (Auto) 5.2 (2-11) % Eos % (Auto) 0.3 (0-4) % Baso % (Auto) 0.3 (0-2) % Lymph # (Auto) 2.1 (1.2-4.9) X10*3/uL [place] # (Auto) 0.8 (0.1-1.2) X10*3/uL Eos # (Auto) 0.1 (0.0-0.4) X10*3/uL Baso # (Auto) 0.0 (0.0-0.2) X10*3/uL Abs Immat Gran (auto) 0.10 H (0.00-0.03) X10*3/uL Absolute Neuts (auto) 12.4 H (2.0-8.3) x10*3/uL Absolute Nucleated RBC 0.000 (0.0-0.012) X10*3/uL Nucleated RBC % (auto) 0.0 (0.0-0.2) /100WBC Sodium 138 (135-145) mmol/L Potassium 3.5 (3.3-5.1) mmol/L Chloride 103 (96-108) mmol/L Carbon Dioxide 25 (22-29) mmol/L Anion Gap 14 (12-20) BUN 14 (9-16) mg/dL Creatinine 0.69 (0.5-1.4) mg/dL Estim Creat Clear Calc 90.8 Estimated GFR > 60 Random Glucose 138 H (60-115) mg/dL Lactic Acid 1.7 (0.5-2.0) mmol/L Calcium 9.2 D (8.4-10.2) mg/dL Magnesium 2.2 (1.6-2.6) mg/dL Total Bilirubin 0.5 (0.0-1.0) mg/dL Direct Bilirubin 0.2 (0.0-0.5) mg/dL AST 18 (5-31) U/L ALT 16 (0-31) U/L Alkaline Phosphatase 84 (39-117) U/L C-Reactive Protein 13.61 H (< or = 0.50) mg/dL Total Protein 8.0 (6.5-8.0) g/dL Albumin 3.5 (3.5-5.0) g/dL Lipase 22 (8-78) U/L Procalcitonin 0.07 ng/mL TSH 0.79 (0.32-4.0) uIU/mL Urine Color Yellow Urine Appearance Cloudy Urine pH 6.0 (5.0-9.0) Ur Specific [place] 1.020 (1.005-1.025) Urine Protein Trace (Neg-Trace) mg/dL Urine Glucose (UA) Negative (Negative) mg/dL Urine Ketones Negative (Negative) mg/dL Urine Blood Small (1+) H (Negative) Urine Nitrite Positive H (Negative) Ur Leukocyte Esterase Moderate (2+) H (Negative) Influenza Type A (PCR) NEGATIVE (Negative) Influenza Type B (PCR) NEGATIVE (Negative) RSV RNA Qual (PCR) NEGATIVE (Negative) SARS-CoV-2 RNA (RT-PCR) NEGATIVE (Negative) Independent Interpretation I performed an independent interpretation of an: EKG and Plain X-Ray Interpretation: Rate: 87 Rhythm: NSR [place]: normal Normal P waves. Normal [place]. Normal QRS complex. ST T wave : nonspecific ST T wave changes qTC: normal prior studies: no acute ischemia The study has been interpreted contemporaneously by me. . Radiology Impression Discussion of test interpretation with radiology: I have reviewed the radiologist's reading. Independent Historian Clinical information obtained from an independent historian. History obtained from or confirmed by: EMS External Record Review External record reviewed: Inpatient record and Outpatient record Discharge Plan Discharge Clinical Impression: Elevated WBC count Qualifiers: Leukocytosis type: unspecified Qualified Code(s): D72.829 - Elevated white blood cell count, unspecified Catheter-associated urinary tract infection Qualifiers: Indwelling urinary catheter type: indwelling urethral catheter Encounter type: initial encounter Qualified Code(s): T83.511A - Infection and inflammatory reaction due to indwelling urethral catheter, initial encounter; N39.0 - Urinary tract infection, site not specified Patient Disposition: Admitted As Inpatient Prescriptions: No Action sulfamethoxazole-trimethoprim [Bactrim DS] 800-160 mg tablet 1 tab PO BID 10 Days Qty: 20 0RF modafinil [Provigil] 200 mg tablet 1 tab PO BID@08,12 cholecalciferol (vitamin D3) 50 mcg (2,000 unit) capsule 1 cap PO DAILY Senior Probiotic 15 billion cell capsule 2 cap PO BID furosemide 40 mg tablet 1 tab PO DAILY@1400 PRN (Reason: Edema) gabapentin 300 mg capsule 300 mg PO TID acetaminophen [Mapap (acetaminophen)] 500 mg capsule 500 mg PO BID PRN (Reason: Pain, Mild) calcium carbonate 600 mg calcium (1,500 mg) tablet 1 tab PO BID levothyroxine 88 mcg tablet 88 mcg PO DAILY acetaminophen 500 mg capsule 1,000 mg PO BID rivaroxaban 20 mg tablet 20 mg PO DAILY baclofen 20 mg tablet 20 mg PO TID furosemide 40 mg tablet 40 mg PO DAILY lisinopril 5 mg tablet 5 mg PO DAILY estradiol 0.01 % (0.1 mg/gram) cream See Rx Instructions .Route DAILY 30 Days Qty: 42.5 2RF Rx Instructions: pea-sized to urethra 3x a week; docusate sodium 100 mg capsule 100 mg PO DAILY ascorbic acid (vitamin C) [Vitamin C] 1,000 mg tablet 1,000 mg PO BID
--- NOTE | 2023-07-12 14:46 | ECG_ITS ---
Test Reason : WEAKNESS Blood Pressure : / mmHG Vent. Rate : 087 BPM Atrial Rate : 087 BPM P-R Int : 158 ms QRS Dur : 084 ms QT Int : 372 ms P-R-T Axes : 065 018 095 degrees QTc Int : 447 ms Normal sinus rhythm Nonspecific T wave abnormality Abnormal ECG No previous ECGs available Referred By: Rosalinda Hills Electronically Signed By:KYMBERLY HAMMOND MD
[2023-07-12 14:51] VITALS: BP 111/59; PULSE 91; RESP 18; TEMP 36.9; O2SAT 94; BMI 32.7
[2023-07-12 15:16] LABS: MANUAL DIFF FLAG NO
[2023-07-12 15:19] LABS: Basophils Percent Auto 0.3 % (0-2); Eosinophils Absolute Auto 0.1 X10*3/uL (0.0-0.4); Eosinophils Percent Auto 0.3 % (0-4); Hematocrit 37.6 % (37.0-47.0); Hemoglobin 11.7 g/dl (12.0-16.0); Imm Gran Pct Auto 0.6 % (0.0-0.4); Lymphocytes Absolute Auto 2.1 X10*3/uL (1.2-4.9); Lymphocytes Percent Auto 13.5 % (20-40); Mean Corpuscular HGB Conc 31.1 g/dl (31.0-35.0); Mean Corpuscular Volume 96.4 fL (80.0-98.0); Mean Platelet Volume 9.7 fL (9.4-12.3); Monocytes Absolute Auto 0.8 X10*3/uL (0.1-1.2); Monocytes Percent Auto 5.2 % (2-11); Neutrophils Absolute Auto 12.4 x10*3/uL (2.0-8.3); Neutrophils Percent Auto 80.1 % (45-73); Platelet Count 283 X10*3/uL (160-400); White Blood Count 15.5 X10*3/uL (4.8-10.8)
--- NOTE | 2023-07-12 15:30 | PC.NURSE ---
patient bed bound, coming from home for ?UTI. patient has chronic lala in place. labs obtained, medicated per the MAR. resting quietly in room with respirations even and unlabored no signs/symptoms of distress.
[2023-07-12 15:32] LABS: Lactic Acid 1.7 mmol/L (0.5-2.0)
[2023-07-12 15:41] LABS: Alanine Aminotransferase 16 U/L (0-31); Albumin Level 3.5 g/dL (3.5-5.0); Alkaline Phosphatase 84 U/L (39-117); Anion Gap 14 (12-20); Aspartate Amino Transferase 18 U/L (5-31); Bilirubin Direct 0.2 mg/dL (0.0-0.5); Bilirubin Total 0.5 mg/dL (0.0-1.0); Blood Urea Nitrogen 14 mg/dL (9-16); C Reactive Protein 13.61 mg/dL (< or = 0.50); Calcium 9.2 mg/dL (8.4-10.2); Carbon Dioxide 25 mmol/L (22-29); Chloride 103 mmol/L (96-108); Creatinine Clr Calc Pharmacy 90.8; Estimated Glomerular Filt Rate > 60; Glucose Random 138 mg/dL (60-115); Lipase 22 U/L (8-78); Magnesium 2.2 mg/dL (1.6-2.6); Potassium 3.5 mmol/L (3.3-5.1); Sodium 138 mmol/L (135-145)
[2023-07-12] MEDS: 0.9 % Sodium Chloride 1,000 ML 999 ML IVCONT (15:41)
[2023-07-12] MEDS: cefEPime HCl 1 GM in 0.9 % Sodium Chloride 50 ML IV (15:46)
[2023-07-12 15:57] LABS: Procalcitonin 0.07 ng/mL; TSH reflex Free T4 0.79 uIU/mL (0.32-4.0)
[2023-07-12 16:41] LABS: Influenza A PCR NEGATIVE (Negative); Influenza B PCR NEGATIVE (Negative); Resp Syncy Virus RNA Qual PCR NEGATIVE (Negative); SARS COV2 PCR INHOUSE NEGATIVE (Negative)
[2023-07-12 17:47] VITALS: BP 135/66; PULSE 87; RESP 16; TEMP 36.8; O2SAT 97
[2023-07-12 17:56] LABS: Appearance Urine Cloudy; Color Urine Yellow; Glucose Urine UA Negative (Negative); Leukocyte Esterase Urine Moderate (2+) (Negative); Nitrite Urine Positive (Negative); UMIC TRIGGER UACC YES; Urine Blood Small (1+) (Negative); Urine Ketones Negative (Negative); Urine Protein Trace mg/dL (Neg-Trace)
[2023-07-12 18:05] LABS: Bacteria Urine 4+ (None Seen); Calcium Oxalate Crystals Urine Present; UACC Culture Trigger YES; WBC Urine 21-50 /HPF (0-5)
--- NOTE | 2023-07-12 18:51 | PHA.MEDREC ---
Pharmacy Consult ? Medication Reconciliation Pharmacy has completed the medication reconciliation.
--- NOTE | 2023-07-12 18:52 | P.HPHOSP_ITS ---
History of Present Illness Date of Service: 07/12/23 Attending physician on admission: Nestor Solano Chief Complaint: Fever, weakness, lethargy Pt is a 68-year-old female with a PMH significant for?hx of DVT/PE on xarelto, CVA, CAD, hx of cardiac arrest, hx of MRSA infection, neurogenic bladder on chronic Tran, hx of MS wheelchair bound, Parkinson's variant of multisystem atrophy, lymphoma, HTN, and HLD who presents to the ED with lethargy, anorexia, and fever at home for the past 3 days. Patient has a history of UTIs and states she normally gets these types of symptoms when she has a UTI. Reports that she has not been eating or drinking much, and sleeping most of the day. Denies polyuria or dysuria. She was last admitted here back in February for UTI that grew Pseudomonas and Serratia marcescens both susceptible to cefepime. Patient denies chest pain/pressure, palpitations. No shortness of breath. Denies nausea, vomiting, abdominal pain. Patient states she went to [facility] yesterday. Records show normal labs with WBC 10 and urine negative. In the ED pt was afebrile, with pulse has high as 91 and soft BP as low as 111/59, satting at 97% on RA. Labs were significant for leukocytosis of 15.5 in C-reactive protein 13.61, otherwise grossly unremarkable. Stable H&H. Electrolytes WNL. Renal and hepatic function WNL. CXR showed no acute intrathoracic disease but with severe degenerative changes of right shoulder. EKG demonstrated sinus rhythm evidence of ST elevations or depressions. Pt was treated with IVF and cefepime. Pt will be admitted to the hospital under observation for treatment and further evaluation of acute UTI. Review of Systems 2 Review of Systems: Lethargy, anorexia Fever of 102 taking at home Denies dysuria, polyuria No nausea, vomiting, diarrhea, abdominal pain No chest pain/pressure, palpitations Denies shortness of breath [facility] Medical History Sacral decubitus ulcer Pulmonary emboli Cardiac arrest History of trigeminal neuralgia COVID-19 vaccine series completed Osteoporosis NENO (obstructive sleep apnea) Parkinson's variant of multiple system atrophy Wheelchair bound Thyroid disease History of neurogenic bladder History of MRSA infection Hx of lymphoma Arthritis Back pain Hx pulmonary embolism DVT (deep venous thrombosis) Anemia Hiatal hernia Tran catheter in place Bladder stones Multiple sclerosis CVA (cerebral vascular accident) Myocardial infarction HTN (hypertension) Recurrent UTI Surgical History Hx of hysterectomy Hx of lumpectomy Hx of vitrectomy History of intraocular lens implant Hx of adenoidectomy Hx of tonsillectomy Hx of laminectomy History of cystoscopy History of biopsy of bladder History of bladder surgery H/O colonoscopy Social History Household Members: None Housing: Apartment Are you a primary care team coordinator scheduler to a significant other at home: No Do you presently have visiting nurse or other home services: Yes ([employer]) Patient Tobacco Use Status: Never used Tobacco Second Hand Smoke Exposure: No Advance Directives: Yes Advance Directives on File: Yes Advance Directives Date on File: 07/05/20 service: No Current occupational status: disabled Meds Allergies Allergy/AdvReac Type Severity Reaction Status Date / Time mercury (elemental) Allergy Severe Anaphylaxis Verified 02/07/23 14:03 Penicillins Allergy Severe Hives Verified 02/07/23 14:03 bupropion [From Wellbutrin] Allergy Intermediate Hives Verified 02/07/23 14:03 Iodinated Contrast Media Allergy Intermediate Hives Verified 02/07/23 14:03 [IV Contrast Dye] morphine Allergy Intermediate Hives Verified 02/07/23 14:03 metoclopramide [From Reglan] AdvReac Intermediate Parkinson Verified 02/07/23 14:03 syndrome Home Medications Medication Instructions Recorded Confirmed Last Taken Type acetaminophen 500 mg capsule 1,000 mg PO BID 06/18/20 07/12/23 02/13/22 History furosemide 40 mg tablet 40 mg PO DAILY 06/18/20 07/12/23 02/13/22 History levothyroxine 88 mcg tablet 88 mcg PO DAILY 06/18/20 07/12/23 02/13/22 History lisinopril 5 mg tablet 5 mg PO DAILY 06/18/20 07/12/23 05/15/22 History rivaroxaban 20 mg tablet 20 mg PO DAILY 06/18/20 07/12/23 02/13/22 History cholecalciferol (vitamin D3) 50 1 cap PO DAILY 02/13/22 07/12/23 02/13/22 History mcg (2,000 unit) capsule ascorbic acid (vitamin C) 1,000 mg 1,000 mg PO BID 11/14/22 07/12/23 Unknown History tablet (Vitamin C) docusate sodium 100 mg capsule 100 mg PO DAILY 11/14/22 07/12/23 Unknown History gabapentin 300 mg capsule 300 mg PO TID 07/12/23 07/12/23 Unknown History modafinil 200 mg tablet (Provigil) 200 mg PO BID 07/12/23 07/12/23 Unknown History Physical Exam 2 Vital Signs and Narrative: Vital Signs: Last Vital Signs Temp 98.3 F 07/12/23 17:47 Pulse 87 07/12/23 17:47 Resp 16 07/12/23 17:47 BP 135/66 07/12/23 17:47 Pulse Ox 97 07/12/23 17:47 O2 Del Method Room Air 07/12/23 17:47 BMI result Body Mass Index 32.7 General: AOx3, no acute distress Resp: CTA bilaterally CVS: S1, S2, RRR GI: +BS, NT, no distention Skin: Warm, dry Neuro: Cranial nerves II-XII grossly intact bilaterally. Chronic lower extremity weakness with chronic right leg paralysis. Can wiggle toes on left foot, at baseline. Extremities: Bilateral nonpitting edema Psych: Appropriate affect Results Labs 07/12/23 15:09 07/12/23 15:09 Labs: Laboratory Results - last 24 hr 07/12/23 07/12/23 15:09 17:48 MCV 96.4 MCH 30.0 MCHC 31.1 RDW 14.0 Plt Count 283 MPV 9.7 Immature Gran % (Auto) 0.6 H Neut % (Auto) 80.1 H Lymph % (Auto) 13.5 L [place] % (Auto) 5.2 Eos % (Auto) 0.3 Baso % (Auto) 0.3 Lymph # (Auto) 2.1 [place] # (Auto) 0.8 Eos # (Auto) 0.1 Baso # (Auto) 0.0 Abs Immat Gran (auto) 0.10 H Absolute Neuts (auto) 12.4 H Absolute Nucleated RBC 0.000 Nucleated RBC % (auto) 0.0 Anion Gap 14 Estim Creat Clear Calc 90.8 Estimated GFR > 60 Random Glucose 138 H Lactic Acid 1.7 Calcium 9.2 D Magnesium 2.2 Total Bilirubin 0.5 Direct Bilirubin 0.2 AST 18 ALT 16 Alkaline Phosphatase 84 C-Reactive Protein 13.61 H Total Protein 8.0 Albumin 3.5 Lipase 22 Procalcitonin 0.07 TSH 0.79 Urine Color Yellow Urine Appearance Cloudy Urine pH 6.0 Ur Specific [place] 1.020 Urine Protein Trace Urine Glucose (UA) Negative Urine Ketones Negative Urine Blood Small (1+) H Urine Nitrite Positive H Ur Leukocyte Esterase Moderate (2+) H Urine RBC 11-20 H Urine WBC 21-50 H Ur Squamous Epith Cells 6-10 Calcium Oxalate Crystal Present Urine Bacteria 4+ Hyaline Casts 11-20 Influenza Type A (PCR) NEGATIVE Influenza Type B (PCR) NEGATIVE RSV RNA Qual (PCR) NEGATIVE SARS-CoV-2 RNA (RT-PCR) NEGATIVE Imaging Radiologist's Impressions: Impressions Chest X-Ray 07/12/23 16:24 IMPRESSION: No acute intrathoracic disease. Severe degenerative changes right shoulder. Assessment and Plan (1) Catheter-associated urinary tract infection: Qualifiers: Encounter type: initial encounter Indwelling urinary catheter type: i ndwelling urethral catheter Qualified Code(s): T83.511A - Infection and inflammatory reaction due to indwelling urethral catheter, initial encounter; N39.0 - Urinary tract infection, site not specified Status: Acute Plan Pt is a 68-year-old female with a PMH significant for?hx of DVT/PE on xarelto, CVA, CAD, hx of cardiac arrest, hx of MRSA infection, neurogenic bladder on chronic Tran, hx of MS wheelchair bound, Parkinson's variant of multisystem atrophy, lymphoma, HTN, and HLD who presents to the ED with lethargy, anorexia, and fever at home for the past 3 days. Pt will be admitted to the hospital under observation management and further evaluation of acute UTI. Acute UTI Patient with lethargy, anorexia, fever x3 days UA positive for UTI Pt with hx of UTI in February that grew Pseudomonas and Serratia marcescens both susceptible to cefepime Pt meets sepsis criteria: WBCs, HR >90; lactic acid WNL at 1.7 Pt received IVF and started on broad spectrum abx in ED Will empirically treat with cefepime, started 07/12/2023 Follow cultures Hx of DVT/PE Continue Xarelto Multiple sclerosis Continue modafinil, gabapentin HTN Contininue home meds DNR/DNI Attending:?Dr. Solano DVT Prophylaxis: On Xarelto Patient will be admitted to the hospital under observation for treatment further evaluation of acute UTI. Quality Stroke Does the patient have a stroke diagnosis?: No VTE Prior VTE?: No VTE Risk Level:: Medical - moderate - high VTE Device Contraindication: Treatment Not Indicated VTE Drug Contraindication: N/A - Med Ordered
[2023-07-12 21:47] VITALS: BP 142/69; PULSE 91; RESP 22; TEMP 36.9; O2SAT 94
[2023-07-12] MEDS: Ascorbic Acid 500 MG TABLET 1000 MG PO (21:52)
[2023-07-12] MEDS: Gabapentin 300 MG CAPSULE PO (21:52)
--- NOTE | 2023-07-12 22:42 | PC.NURSE ---
this rn assumed care of pt. pt resting comfortably in stretcher, has chronic lala in place, draining yellow urine. pt denies pain at this time.
[2023-07-13] VITALS (7 sets, daily range): BP systolic 106–155; BP diastolic 56–88; PULSE 76–103; RESP 18–20; TEMP 36.1–37.6; O2SAT 93–97; BMI 32.3
--- NOTE | 2023-07-13 00:01 | PC.NURSE ---
pt repositioned in bed at this time. pt given sandwich and set up to eat.
--- NOTE | 2023-07-13 00:29 | PC.NURSE ---
pt repositioned and lights dimmed for pt sleep.
[2023-07-13] MEDS: 0.9 % Sodium Chloride Flush 3 ML SYRINGE IVFLUSH ×3 (00:31→15:38)
[2023-07-13] MEDS: cefEPime HCl 1 GM in 0.9 % Sodium Chloride 50 ML IV ×2 (02:59→15:28)
--- NOTE | 2023-07-13 05:32 | PC.NURSE ---
pt sleeping, respirations even and unlabored.
[2023-07-13] MEDS: Levothyroxine Sodium 88 MCG TABLET PO (06:12)
--- NOTE | 2023-07-13 06:13 | PC.NURSE ---
pt medicated per mar.
[2023-07-13 07:03] LABS: Hematocrit 35.3 % (37.0-47.0); Mean Corpuscular HGB Conc 31.2 g/dl (31.0-35.0); Mean Corpuscular Hemoglobin 30.1 pg (27.0-33.0); Mean Corpuscular Volume 96.4 fL (80.0-98.0); Mean Platelet Volume 9.8 fL (9.4-12.3); Platelet Count 289 X10*3/uL (160-400); Red Blood Count 3.66 X10*6/uL (4.20-5.50); Red Cell Distribution Width 13.8 % (11.0-16.0); White Blood Count 10.1 X10*3/uL (4.8-10.8)
[2023-07-13] MEDS: Ascorbic Acid 500 MG TABLET 1000 MG PO ×2 (07:36→21:27)
[2023-07-13] MEDS: modafiniL 100 MG TABLET 200 MG PO (07:37)
[2023-07-13] MEDS: lisinopriL 5 MG TABLET PO (07:37)
[2023-07-13] MEDS: Gabapentin 300 MG CAPSULE PO ×3 (07:37→21:26)
[2023-07-13] MEDS: Cholecalciferol (Vitamin D3) 25 MCG TABLET 50 MCG PO (07:37)
[2023-07-13] MEDS: Furosemide 40 MG TABLET PO (07:37)
[2023-07-13] MEDS: Docusate Sodium 100 MG CAPSULE PO (07:38)
--- NOTE | 2023-07-13 09:27 | HO.SKINPHOTO ---
Location: Category: Stage: Length: Width: Depth: cm Location: Category: Stage: Length: Width: Depth: cm Location: Category: Stage: Length: Width: Depth: cm Location: Category: Stage: Length: Width: Depth: cm Location: Category: Stage: Length: Width: Depth: cm Location: Category: Stage: Length: Width: Depth: c
--- NOTE | 2023-07-13 14:00 | P.PNIM_ITS ---
Subjective Subjective Date of Service: 07/13/23 Interval History: No acute issues overnight. Voices no complaints Review of Systems Denies chest pain Denies shortness of breath Denies nausea vomiting diarrhea Fever chills Physical Exam 2 Vital Signs: Vital Signs: Last Vital Signs Temp 98.9 F 07/13/23 11:21 Pulse 100 07/13/23 11:21 Resp 18 07/13/23 11:21 BP 155/88 H 07/13/23 11:21 Pulse Ox 97 07/13/23 11:21 O2 Del Method Room Air 07/13/23 11:21 BMI result Body Mass Index 32.3 Const: Other: Awake alert no acute distress Resp: Other: Clear to auscultation bilaterally no rales rhonchi wheezes Cardio: Other: No S4; positive S1-S2; no S3 murmurs rubs or gallops GI: Other: Soft nontender nondistended normoactive bowel sounds Extrem: Other: No edema bilaterally Objective Data Active Medications Acetaminophen (Acetaminophen 325 Mg Tablet) 650 mg PO Q6H PRN PRN Reason: Pain, Mild (Pain Scale 1-3) Ascorbic Acid (Ascorbic Acid 500 Mg Tablet) 1,000 mg PO BID [facility] Last Admin: 07/13/23 07:36 Dose: 1,000 mg Documented By: ALEXANDRO Benzonatate (Benzonatate 100 Mg Capsule) 100 mg PO TID PRN PRN Reason: Cough Docusate Sodium (Docusate Sodium 100 Mg Capsule) 100 mg PO DAILY PRN PRN Reason: Constipation Docusate Sodium (Docusate Sodium 100 Mg Capsule) 100 mg PO DAILY [facility] Last Admin: 07/13/23 07:38 Dose: 100 mg Documented By: ALEXANDRO Furosemide (Furosemide 40 Mg Tablet) 40 mg PO DAILY [facility]; Protocol Last Admin: 07/13/23 07:37 Dose: 40 mg Documented By: ALEXANDRO Gabapentin (Gabapentin 300 Mg Capsule) 300 mg PO TID [facility] Last Admin: 07/13/23 07:37 Dose: 300 mg Documented By: ALEXANDRO Cefepime HCl 1 gm/ Sodium (Chloride) 50 mls @ 100 mls/hr IV Q12H [facility] Last Infusion: 07/13/23 03:29 Dose: Infused Documented By: KECIA Levothyroxine Sodium (Levothyroxine Sodium 88 Mcg Tablet) 88 mcg PO DAILY@0600 [facility] Last Admin: 07/13/23 06:12 Dose: 88 mcg Documented By: KECIA Lisinopril (Lisinopril 5 Mg Tablet) 5 mg PO DAILY [facility]; Protocol Last Admin: 07/13/23 07:37 Dose: 5 mg Documented By: ALEXANDRO Melatonin (Melatonin 3 Mg Tablet) 6 mg PO BEDTIME PRN PRN Reason: Insomnia Modafinil (Modafinil 100 Mg Tablet) 200 mg PO BID [facility] Last Admin: 07/13/23 07:37 Dose: 200 mg Documented By: ALEXANDRO Ondansetron HCl (Ondansetron Hcl 4 Mg/2 Ml Vial) 4 mg IVPUSH Q8H PRN PRN Reason: Nausea and Vomiting Rivaroxaban (Rivaroxaban 20 Mg Tablet) 20 mg PO DAILY@1700 [facility] Sodium Chloride (0.9 % Sodium Chloride Flush 3 Ml Syringe) 3 ml IVFLUSH QSHIFT [facility] Last Admin: 07/13/23 07:38 Dose: 3 ml Documented By: ALEXANDRO Vitamin D (Cholecalciferol (Vitamin D3) 25 Mcg Tablet) 50 mcg PO DAILY [facility] Last Admin: 07/13/23 07:37 Dose: 50 mcg Documented By: ALEXANDRO Labs 07/13/23 06:48 07/12/23 15:09 Labs: Laboratory Results - last 24 hr 07/12/23 07/12/23 07/13/23 15:09 17:48 06:48 MCV 96.4 96.4 MCH 30.0 30.1 MCHC 31.1 31.2 RDW 14.0 13.8 Plt Count 283 289 MPV 9.7 9.8 Immature Gran % (Auto) 0.6 H Neut % (Auto) 80.1 H Lymph % (Auto) 13.5 L [place] % (Auto) 5.2 Eos % (Auto) 0.3 Baso % (Auto) 0.3 Lymph # (Auto) 2.1 [place] # (Auto) 0.8 Eos # (Auto) 0.1 Baso # (Auto) 0.0 Abs Immat Gran (auto) 0.10 H Absolute Neuts (auto) 12.4 H Absolute Nucleated RBC 0.000 0.000 Nucleated RBC % (auto) 0.0 0.0 Anion Gap 14 Estim Creat Clear Calc 90.8 Estimated GFR > 60 Random Glucose 138 H Lactic Acid 1.7 Calcium 9.2 D Magnesium 2.2 Total Bilirubin 0.5 Direct Bilirubin 0.2 AST 18 ALT 16 Alkaline Phosphatase 84 C-Reactive Protein 13.61 H Total Protein 8.0 Albumin 3.5 Lipase 22 Procalcitonin 0.07 TSH 0.79 Urine Color Yellow Urine Appearance Cloudy Urine pH 6.0 Ur Specific [place] 1.020 Urine Protein Trace Urine Glucose (UA) Negative Urine Ketones Negative Urine Blood Small (1+) H Urine Nitrite Positive H Ur Leukocyte Esterase Moderate (2+) H Urine RBC 11-20 H Urine WBC 21-50 H Ur Squamous Epith Cells 6-10 Calcium Oxalate Crystal Present Urine Bacteria 4+ Hyaline Casts 11-20 Influenza Type A (PCR) NEGATIVE Influenza Type B (PCR) NEGATIVE RSV RNA Qual (PCR) NEGATIVE SARS-CoV-2 RNA (RT-PCR) NEGATIVE Microbiology Microbiology Results: Microbiology 07/12/23 18:06 Urine Culture - Preliminary Urine clean catch - Urine estes top Culture too young to evaluate. Assessment and Plan (1) Recurrent UTI (urinary tract infection): Status: Acute (2) Sepsis: Status: Acute (3) Multiple sclerosis: Status: Acute Plan Pt is a 68-year-old female with a PMH significant for?hx of DVT/PE on xarelto, CVA, CAD, hx of cardiac arrest, hx of MRSA infection, neurogenic bladder on chronic Tran, hx of MS wheelchair bound, Parkinson's variant of multisystem atrophy, lymphoma, HTN, and HLD who presents to the ED with lethargy, anorexia, and fever at home for the past 3 days. 1.Acute UTI - UTI in February that grew Pseudomonas and Serratia marcescens both susceptible to cefepime -meets sepsis criteria: WBCs, HR >90; lactic acid WNL at 1.7; sepsis now resolved -cefepime, (2).. Adjust pending cultures 2.Hx of DVT/PE -continue Xarelto 3.Multiple sclerosis -at baseline -Continue modafinil, gabapentin 4.HTN -acceptable control on current therapy -adjust as indicated DNR/DNI Xarelto Patient requires ongoing hospitalization for IV antibiotics pending identification and sensitivity of urine culture Quality Stroke Does the patient have a stroke diagnosis?: No VTE Prior VTE?: No VTE Risk Level:: Medical - moderate - high VTE Device Contraindication: Treatment Not Indicated VTE Drug Contraindication: N/A - Med Ordered
[2023-07-13] MEDS: Acetaminophen 325 MG TABLET 650 MG PO ×2 (15:27→21:37)
[2023-07-13] MEDS: Rivaroxaban 20 MG TABLET PO (15:38)
[2023-07-14] MEDS: cefEPime HCl 1 GM in 0.9 % Sodium Chloride 50 ML IV ×2 (04:49→15:31)
[2023-07-14] MEDS: 0.9 % Sodium Chloride Flush 3 ML SYRINGE IVFLUSH ×3 (04:51→15:27)
[2023-07-14] MEDS: Levothyroxine Sodium 88 MCG TABLET PO (04:51)
[2023-07-14 04:55] VITALS: BP 145/71; PULSE 90; RESP 18; TEMP 36.7; O2SAT 93
[2023-07-14 07:17] LABS: MANUAL DIFF FLAG NO
[2023-07-14 07:19] LABS: Basophils Absolute Auto 0.1 X10*3/uL (0.0-0.2); Basophils Percent Auto 0.6 % (0-2); Eosinophils Absolute Auto 0.3 X10*3/uL (0.0-0.4); Eosinophils Percent Auto 3.7 % (0-4); Hematocrit 36.8 % (37.0-47.0); Hemoglobin 11.8 g/dl (12.0-16.0); Imm Gran Abs Auto 0.14 X10*3/uL (0.00-0.03); Imm Gran Pct Auto 1.8 % (0.0-0.4); Lymphocytes Absolute Auto 2.5 X10*3/uL (1.2-4.9); Lymphocytes Percent Auto 31.7 % (20-40); Mean Corpuscular HGB Conc 32.1 g/dl (31.0-35.0); Mean Corpuscular Hemoglobin 30.8 pg (27.0-33.0); Mean Corpuscular Volume 96.1 fL (80.0-98.0); Mean Platelet Volume 10.1 fL (9.4-12.3); Monocytes Absolute Auto 0.7 X10*3/uL (0.1-1.2); Monocytes Percent Auto 8.3 % (2-11); Neutrophils Absolute Auto 4.3 x10*3/uL (2.0-8.3); Neutrophils Percent Auto 53.9 % (45-73); Platelet Count 320 X10*3/uL (160-400); Red Blood Count 3.83 X10*6/uL (4.20-5.50); Red Cell Distribution Width 13.6 % (11.0-16.0); White Blood Count 7.9 X10*3/uL (4.8-10.8)
[2023-07-14 07:31] VITALS: BP 144/75; PULSE 88; RESP 20; TEMP 35.7; O2SAT 96
[2023-07-14 07:35] LABS: Alanine Aminotransferase 21 U/L (0-31); Albumin Level 3.5 g/dL (3.5-5.0); Alkaline Phosphatase 77 U/L (39-117); Anion Gap 15 (12-20); Aspartate Amino Transferase 26 U/L (5-31); Bilirubin Total 0.3 mg/dL (0.0-1.0); Blood Urea Nitrogen 13 mg/dL (9-16); Calcium 9.1 mg/dL (8.4-10.2); Carbon Dioxide 25 mmol/L (22-29); Chloride 104 mmol/L (96-108); Creatinine Clr Calc Pharmacy 94.4; Estimated Glomerular Filt Rate > 60; Glucose Fasting 127 mg/dL (60-99); Potassium 2.9 mmol/L (3.3-5.1); Sodium 141 mmol/L (135-145)
--- NOTE | 2023-07-14 09:04 | MHC.CM.PN ---
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
[2023-07-14] MEDS: Ascorbic Acid 500 MG TABLET 1000 MG PO ×2 (09:41→21:07)
[2023-07-14] MEDS: Furosemide 40 MG TABLET PO (09:41)
[2023-07-14] MEDS: Docusate Sodium 100 MG CAPSULE PO (09:42)
[2023-07-14] MEDS: Cholecalciferol (Vitamin D3) 25 MCG TABLET 50 MCG PO (09:42)
[2023-07-14] MEDS: Gabapentin 300 MG CAPSULE PO ×3 (09:42→21:07)
[2023-07-14] MEDS: lisinopriL 5 MG TABLET PO (09:42)
[2023-07-14] MEDS: modafiniL 100 MG TABLET 200 MG PO (09:42)
[2023-07-14 11:17] VITALS: BP 167/73; PULSE 92; RESP 20; TEMP 36.3; O2SAT 95
--- NOTE | 2023-07-14 13:55 | P.PNIM_ITS ---
Subjective Subjective Date of Service: 07/14/23 Interval History: Remains afebrile. No acute issues overall Review of Systems Denies chest pain Denies shortness of breath Denies nausea vomiting diarrhea Fever chills Physical Exam 2 Vital Signs: Vital Signs: Last Vital Signs Temp 97.4 F 07/14/23 11:17 Pulse 92 07/14/23 11:17 Resp 20 07/14/23 11:17 BP 167/73 H 07/14/23 11:17 Pulse Ox 95 07/14/23 11:17 O2 Del Method Room Air 07/14/23 11:17 BMI result Body Mass Index 32.3 Const: Other: Awake alert no acute distress Resp: Other: Clear to auscultation bilaterally no rales rhonchi wheezes Cardio: Other: No S4; positive S1-S2; no S3 murmurs rubs or gallops GI: Other: Soft nontender nondistended normoactive bowel sounds Extrem: Other: No edema bilaterally Objective Data Active Medications Acetaminophen (Acetaminophen 325 Mg Tablet) 650 mg PO Q6H PRN PRN Reason: Pain, Mild (Pain Scale 1-3) Last Admin: 07/13/23 21:37 Dose: 650 mg Documented By: LEA Ascorbic Acid (Ascorbic Acid 500 Mg Tablet) 1,000 mg PO BID [facility] Last Admin: 07/14/23 09:41 Dose: 1,000 mg Documented By: JAYLEN Benzonatate (Benzonatate 100 Mg Capsule) 100 mg PO TID PRN PRN Reason: Cough Docusate Sodium (Docusate Sodium 100 Mg Capsule) 100 mg PO DAILY PRN PRN Reason: Constipation Docusate Sodium (Docusate Sodium 100 Mg Capsule) 100 mg PO DAILY [facility] Last Admin: 07/14/23 09:42 Dose: 100 mg Documented By: JAYLEN Furosemide (Furosemide 40 Mg Tablet) 40 mg PO DAILY [facility]; Protocol Last Admin: 07/14/23 09:41 Dose: 40 mg Documented By: JAYLEN Gabapentin (Gabapentin 300 Mg Capsule) 300 mg PO TID [facility] Last Admin: 07/14/23 09:42 Dose: 300 mg Documented By: JAYLEN Cefepime HCl 1 gm/ Sodium (Chloride) 50 mls @ 100 mls/hr IV Q12H [facility] Last Infusion: 07/14/23 05:27 Dose: Infused Documented By: TAMI Levothyroxine Sodium (Levothyroxine Sodium 88 Mcg Tablet) 88 mcg PO DAILY@0600 [facility] Last Admin: 07/14/23 04:51 Dose: 88 mcg Documented By: ANTDELGADO Lisinopril (Lisinopril 5 Mg Tablet) 5 mg PO DAILY [facility]; Protocol Last Admin: 07/14/23 09:42 Dose: 5 mg Documented By: JAYLEN Melatonin (Melatonin 3 Mg Tablet) 6 mg PO BEDTIME PRN PRN Reason: Insomnia Modafinil (Modafinil 100 Mg Tablet) 200 mg PO BID [facility] Last Admin: 07/14/23 09:42 Dose: 200 mg Documented By: JAYLEN Ondansetron HCl (Ondansetron Hcl 4 Mg/2 Ml Vial) 4 mg IVPUSH Q8H PRN PRN Reason: Nausea and Vomiting Rivaroxaban (Rivaroxaban 20 Mg Tablet) 20 mg PO DAILY@1700 [facility] Last Admin: 07/13/23 15:38 Dose: 20 mg Documented By: FOGARTLadan Sodium Chloride (0.9 % Sodium Chloride Flush 3 Ml Syringe) 3 ml IVFLUSH QSHIFT [facility] Last Admin: 07/14/23 09:42 Dose: 3 ml Documented By: JAYLEN Vitamin D (Cholecalciferol (Vitamin D3) 25 Mcg Tablet) 50 mcg PO DAILY [facility] Last Admin: 07/14/23 09:42 Dose: 50 mcg Documented By: JAYLEN Labs 07/14/23 06:27 07/14/23 06:27 Labs: Laboratory Results - last 24 hr 07/14/23 06:27 MCV 96.1 MCH 30.8 MCHC 32.1 RDW 13.6 Plt Count 320 MPV 10.1 Immature Gran % (Auto) 1.8 H Neut % (Auto) 53.9 Lymph % (Auto) 31.7 [place] % (Auto) 8.3 Eos % (Auto) 3.7 Baso % (Auto) 0.6 Lymph # (Auto) 2.5 [place] # (Auto) 0.7 Eos # (Auto) 0.3 Baso # (Auto) 0.1 Abs Immat Gran (auto) 0.14 H Absolute Neuts (auto) 4.3 Absolute Nucleated RBC 0.000 Nucleated RBC % (auto) 0.0 Anion Gap 15 Estim Creat Clear Calc 94.4 Estimated GFR > 60 Fasting Glucose 127 H Calcium 9.1 Total Bilirubin 0.3 AST 26 ALT 21 Alkaline Phosphatase 77 Total Protein 8.0 Albumin 3.5 Microbiology Microbiology Results: Microbiology 07/12/23 18:06 Urine Culture - Preliminary Urine clean catch - Urine estes top Pseudomonas species Enterococcus/Streptococcus sp 07/12/23 15:38 Blood Culture - Preliminary Blood - Venous No growth after 24 hours. 07/12/23 15:09 Blood Culture - Preliminary Blood - Venous No growth after 24 hours. Assessment and Plan (1) Recurrent UTI (urinary tract infection): Status: Acute (2) Catheter-associated urinary tract infection: Status: Acute (3) Multiple sclerosis: Status: Acute Plan Pt is a 68-year-old female with a PMH significant for?hx of DVT/PE on xarelto, CVA, CAD, hx of cardiac arrest, hx of MRSA infection, neurogenic bladder on chronic Tran, hx of MS wheelchair bound, Parkinson's variant of multisystem atrophy, lymphoma, HTN, and HLD who presents to the ED with lethargy, anorexia, and fever at home for the past 3 days. 1.Acute UTI (preliminary Pseudomonas/Enterococcus) -meets sepsis criteria: WBCs, HR >90; lactic acid WNL at 1.7; sepsis now resolved -cefepime, (3).. Adjust pending cultures 2.Hx of DVT/PE -continue Xarelto 3.Multiple sclerosis -at baseline -Continue modafinil, gabapentin 4.HTN -acceptable control on current therapy -adjust as indicated DNR/DNI Xarelto Patient requires ongoing hospitalization for IV antibiotics pending identification and sensitivity of urine culture Quality Stroke Does the patient have a stroke diagnosis?: No VTE Prior VTE?: No VTE Risk Level:: Medical - moderate - high VTE Device Contraindication: Treatment Not Indicated VTE Drug Contraindication: N/A - Med Ordered
[2023-07-14 15:37] VITALS: BP 121/71; PULSE 101; RESP 14; TEMP 36.3; O2SAT 94
[2023-07-14] MEDS: Acetaminophen 325 MG TABLET 650 MG PO ×2 (15:39→21:07)
[2023-07-14] MEDS: Rivaroxaban 20 MG TABLET PO (17:40)
[2023-07-14 19:21] VITALS: BP 98/54; PULSE 93; RESP 20; TEMP 37; O2SAT 93
[2023-07-15 03:33] VITALS: BP 120/60; PULSE 90; RESP 20; TEMP 37.1; O2SAT 93
[2023-07-15] MEDS: cefEPime HCl 1 GM in 0.9 % Sodium Chloride 50 ML IV (03:33)
[2023-07-15] MEDS: 0.9 % Sodium Chloride Flush 3 ML SYRINGE IVFLUSH ×3 (03:43→15:40)
[2023-07-15] MEDS: Levothyroxine Sodium 88 MCG TABLET PO (04:10)
[2023-07-15 06:14] LABS: MANUAL DIFF FLAG NO
[2023-07-15 06:20] LABS: Basophils Absolute Auto 0.1 X10*3/uL (0.0-0.2); Basophils Percent Auto 0.6 % (0-2); Eosinophils Absolute Auto 0.3 X10*3/uL (0.0-0.4); Eosinophils Percent Auto 3.4 % (0-4); Hematocrit 38.3 % (37.0-47.0); Imm Gran Abs Auto 0.17 X10*3/uL (0.00-0.03); Imm Gran Pct Auto 2.2 % (0.0-0.4); Lymphocytes Absolute Auto 2.5 X10*3/uL (1.2-4.9); Lymphocytes Percent Auto 31.7 % (20-40); Mean Corpuscular HGB Conc 31.3 g/dl (31.0-35.0); Mean Corpuscular Hemoglobin 29.8 pg (27.0-33.0); Mean Platelet Volume 9.8 fL (9.4-12.3); Monocytes Absolute Auto 0.6 X10*3/uL (0.1-1.2); Monocytes Percent Auto 7.2 % (2-11); Neutrophils Absolute Auto 4.3 x10*3/uL (2.0-8.3); Neutrophils Percent Auto 54.9 % (45-73); Platelet Count 359 X10*3/uL (160-400); Red Blood Count 4.03 X10*6/uL (4.20-5.50); Red Cell Distribution Width 13.6 % (11.0-16.0); White Blood Count 7.9 X10*3/uL (4.8-10.8)
[2023-07-15 06:37] LABS: Alanine Aminotransferase 27 U/L (0-31); Albumin Level 3.7 g/dL (3.5-5.0); Alkaline Phosphatase 77 U/L (39-117); Anion Gap 16 (12-20); Aspartate Amino Transferase 31 U/L (5-31); Bilirubin Total 0.4 mg/dL (0.0-1.0); Blood Urea Nitrogen 15 mg/dL (9-16); Calcium 9.6 mg/dL (8.4-10.2); Carbon Dioxide 25 mmol/L (22-29); Chloride 103 mmol/L (96-108); Creatinine Clr Calc Pharmacy 90.4; Estimated Glomerular Filt Rate > 60; Glucose Fasting 123 mg/dL (60-99); Potassium 2.8 mmol/L (3.3-5.1); Sodium 141 mmol/L (135-145); Total Protein 8.3 g/dL (6.5-8.0)
[2023-07-15 07:50] VITALS: BP 99/56; PULSE 88; RESP 20; TEMP 36.2; O2SAT 94
[2023-07-15] MEDS: Potassium Chloride Packet 20 MEQ PACKET 40 MEQ PO (09:21)
[2023-07-15] MEDS: Acetaminophen 325 MG TABLET 650 MG PO ×3 (09:23→20:55)
[2023-07-15] MEDS: Ascorbic Acid 500 MG TABLET 1000 MG PO ×2 (09:24→20:55)
[2023-07-15] MEDS: lisinopriL 5 MG TABLET PO (09:24)
[2023-07-15] MEDS: Docusate Sodium 100 MG CAPSULE PO (09:25)
[2023-07-15] MEDS: Gabapentin 300 MG CAPSULE PO ×3 (09:25→20:55)
[2023-07-15] MEDS: modafiniL 100 MG TABLET 200 MG PO (09:25)
[2023-07-15] MEDS: Cholecalciferol (Vitamin D3) 25 MCG TABLET 50 MCG PO (09:25)
[2023-07-15] MEDS: Furosemide 40 MG TABLET PO (09:26)
[2023-07-15 11:18] VITALS: BP 130/68; PULSE 91; RESP 20; TEMP 36.6; O2SAT 93
--- NOTE | 2023-07-15 13:34 | P.PNIM_ITS ---
Subjective Subjective Date of Service: 07/15/23 Interval History: Remains afebrile. Blood cultures negative times 48 hours. No acute issues Review of Systems Denies chest pain Denies shortness of breath Denies nausea vomiting diarrhea Fever chills Physical Exam 2 Vital Signs: Vital Signs: Last Vital Signs Temp 97.9 F 07/15/23 11:18 Pulse 91 07/15/23 11:18 Resp 20 07/15/23 11:18 BP 130/68 07/15/23 11:18 Pulse Ox 93 07/15/23 11:18 O2 Del Method Room Air 07/15/23 11:18 BMI result Body Mass Index 32.3 Const: Other: Awake alert no acute distress Resp: Other: Clear to auscultation bilaterally no rales rhonchi wheezes Cardio: Other: No S4; positive S1-S2; no S3 murmurs rubs or gallops GI: Other: Soft nontender nondistended normoactive bowel sounds Extrem: Other: No edema bilaterally Objective Data Active Medications Acetaminophen (Acetaminophen 325 Mg Tablet) 650 mg PO Q6H PRN PRN Reason: Pain, Mild (Pain Scale 1-3) Last Admin: 07/15/23 09:23 Dose: 650 mg Documented By: LYLY Ascorbic Acid (Ascorbic Acid 500 Mg Tablet) 1,000 mg PO BID [facility] Last Admin: 07/15/23 09:24 Dose: 1,000 mg Documented By: LYLY Benzonatate (Benzonatate 100 Mg Capsule) 100 mg PO TID PRN PRN Reason: Cough Docusate Sodium (Docusate Sodium 100 Mg Capsule) 100 mg PO DAILY PRN PRN Reason: Constipation Docusate Sodium (Docusate Sodium 100 Mg Capsule) 100 mg PO DAILY [facility] Last Admin: 07/15/23 09:25 Dose: 100 mg Documented By: LYLY Furosemide (Furosemide 40 Mg Tablet) 40 mg PO DAILY [facility]; Protocol Last Admin: 07/15/23 09:26 Dose: 40 mg Documented By: LYLY Gabapentin (Gabapentin 300 Mg Capsule) 300 mg PO TID [facility] Last Admin: 07/15/23 09:25 Dose: 300 mg Documented By: LYLY Levofloxacin (Levaquin) 750 mg in 150 mls @ 100 mls/hr IV Q24H [facility] Last Admin: 07/15/23 11:37 Dose: Not Given Documented By: LYLY Non-Admin Reason: Physician Held Med Levothyroxine Sodium (Levothyroxine Sodium 88 Mcg Tablet) 88 mcg PO DAILY@0600 [facility] Last Admin: 07/15/23 04:10 Dose: 88 mcg Documented By: DYLON Lisinopril (Lisinopril 5 Mg Tablet) 5 mg PO DAILY [facility]; Protocol Last Admin: 07/15/23 09:24 Dose: 5 mg Documented By: LYLY Melatonin (Melatonin 3 Mg Tablet) 6 mg PO BEDTIME PRN PRN Reason: Insomnia Modafinil (Modafinil 100 Mg Tablet) 200 mg PO BID@0800,1200 [facility] Last Admin: 07/15/23 09:25 Dose: 200 mg Documented By: LYLY Ondansetron HCl (Ondansetron Hcl 4 Mg/2 Ml Vial) 4 mg IVPUSH Q8H PRN PRN Reason: Nausea and Vomiting Potassium Chloride (Potassium Chloride Packet 20 Meq Packet) 40 meq PO BID [facility] Stop: 07/16/23 21:01 Last Admin: 07/15/23 09:21 Dose: 40 meq Documented By: LYLY Rivaroxaban (Rivaroxaban 20 Mg Tablet) 20 mg PO DAILY@1700 [facility] Last Admin: 07/14/23 17:40 Dose: 20 mg Documented By: NIKOLAS Sodium Chloride (0.9 % Sodium Chloride Flush 3 Ml Syringe) 3 ml IVFLUSH QSHIFT [facility] Last Admin: 07/15/23 09:26 Dose: 3 ml Documented By: LYLY Vitamin D (Cholecalciferol (Vitamin D3) 25 Mcg Tablet) 50 mcg PO DAILY [facility] Last Admin: 07/15/23 09:25 Dose: 50 mcg Documented By: YLLY Labs 07/15/23 05:45 07/15/23 05:45 Labs: Laboratory Results - last 24 hr 07/15/23 05:45 MCV 95.0 MCH 29.8 MCHC 31.3 RDW 13.6 Plt Count 359 MPV 9.8 Immature Gran % (Auto) 2.2 H Neut % (Auto) 54.9 Lymph % (Auto) 31.7 [place] % (Auto) 7.2 Eos % (Auto) 3.4 Baso % (Auto) 0.6 Lymph # (Auto) 2.5 [place] # (Auto) 0.6 Eos # (Auto) 0.3 Baso # (Auto) 0.1 Abs Immat Gran (auto) 0.17 H Absolute Neuts (auto) 4.3 Absolute Nucleated RBC 0.000 Nucleated RBC % (auto) 0.0 Anion Gap 16 Estim Creat Clear Calc 90.4 Estimated GFR > 60 Fasting Glucose 123 H Calcium 9.6 Total Bilirubin 0.4 AST 31 ALT 27 Alkaline Phosphatase 77 Total Protein 8.3 H Albumin 3.7 Microbiology Microbiology Results: Microbiology 07/12/23 18:06 Urine Culture - Final Urine clean catch - Urine estes top Pseudomonas aeruginosa Enterococcus faecalis 07/12/23 15:38 Blood Culture - Preliminary Blood - Venous No growth after 48 hours. 07/12/23 15:09 Blood Culture - Preliminary Blood - Venous No growth after 48 hours. Assessment and Plan (1) Recurrent UTI (urinary tract infection): Status: Acute (2) Sepsis: Status: Acute Plan Pt is a 68-year-old female with a PMH significant for?hx of DVT/PE on xarelto, CVA, CAD, hx of cardiac arrest, hx of MRSA infection, neurogenic bladder on chronic Tran, hx of MS wheelchair bound, Parkinson's variant of multisystem atrophy, lymphoma, HTN, and HLD who presents to the ED with lethargy, anorexia, and fever at home for the past 3 days. 1.Acute UTI (preliminary Pseudomonas/Enterococcus) -meets sepsis criteria: WBCs, HR >90; lactic acid WNL at 1.7; sepsis now resolved -cefepime, (3).. Will add vancomycin for Enterococcus -blood cultures negative times 72 hours -id consult 2.Hx of DVT/PE -continue Xarelto 3.Multiple sclerosis -at baseline -Continue modafinil, gabapentin 4.HTN -acceptable control on current therapy -adjust as indicated DNR/DNI Xarelto Patient requires ongoing hospitalization for IV antibiotics pending identification and sensitivity of urine culture Quality Stroke Does the patient have a stroke diagnosis?: No VTE Prior VTE?: No VTE Risk Level:: Medical - moderate - high VTE Device Contraindication: Treatment Not Indicated VTE Drug Contraindication: N/A - Med Ordered
[2023-07-15 15:07] VITALS: BP 109/64; PULSE 92; RESP 16; TEMP 36.8; O2SAT 94
[2023-07-15] MEDS: cefEPime HCl 2 GM in 0.9 % Sodium Chloride 50 ML IV (15:36)
[2023-07-15] MEDS: vancomycin/NS 2,000 MG/500 ML PLAST..BAG 250 MG IV (17:13)
[2023-07-15] MEDS: Rivaroxaban 20 MG TABLET PO (18:11)
--- NOTE | 2023-07-15 18:48 | PC.NURSE ---
patient assisted with 3 nursing staff with the bedpan x 2 this afternoon , pt had moderate loose BM , yeimi care was done , sponge bath was performed . Pt was treated with respect and with processional manner . With every task that requires reposition pt was informed about every step by nursing staff , pt had specific routines with repositioning and she got all attention by the nursing staff. Pt verbally demanding and anxious and very negative attitude towards the care she is receiving. Charge nurse Tushar and GRAINING OPERATOR leader Sal also this newspaper writer assisted with personal care at 1800 .
[2023-07-15 20:00] VITALS: BP 100/47; PULSE 91; RESP 17; TEMP 35.9; O2SAT 94
--- NOTE | 2023-07-15 21:10 | PC.NURSE ---
Pt is refusing potassium powder ,she stated that it is torture that she has to drink this medication tonight . DR Crespo was notified if potassium can be given in other form . pt stated that she has more requests and one of them : Patient stated that she wants DR Bass to call her , because he is good doctor .
[2023-07-15] MEDS: Potassium Chloride ER 20 MEQ TAB.ER.PRT 40 MEQ PO (21:32)
[2023-07-16] MEDS: cefEPime HCl 2 GM in 0.9 % Sodium Chloride 50 ML IV ×2 (02:38→15:43)
[2023-07-16] MEDS: 0.9 % Sodium Chloride Flush 3 ML SYRINGE IVFLUSH (02:43)
[2023-07-16 03:07] VITALS: BP 116/59; PULSE 85; RESP 20; TEMP 36.6; O2SAT 95
[2023-07-16] MEDS: vancomycin HCL 1,250 MG in 0.9 % Sodium Chloride 250 ML 166.67 MG IV (06:34)
[2023-07-16] MEDS: Levothyroxine Sodium 88 MCG TABLET PO (06:39)
[2023-07-16 07:20] VITALS: BP 136/66; PULSE 90; RESP 18; TEMP 36.1; O2SAT 92
[2023-07-16] MEDS: Potassium Chloride ER 20 MEQ TAB.ER.PRT 40 MEQ PO ×2 (07:40→22:51)
[2023-07-16] MEDS: Gabapentin 300 MG CAPSULE PO ×3 (07:41→22:52)
[2023-07-16] MEDS: Cholecalciferol (Vitamin D3) 25 MCG TABLET 50 MCG PO (07:41)
[2023-07-16] MEDS: Furosemide 40 MG TABLET PO (07:41)
[2023-07-16] MEDS: modafiniL 100 MG TABLET 200 MG PO ×2 (07:41→12:09)
[2023-07-16] MEDS: Ascorbic Acid 500 MG TABLET 1000 MG PO ×2 (07:41→22:51)
[2023-07-16] MEDS: lisinopriL 5 MG TABLET PO (07:41)
[2023-07-16 08:08] LABS: MANUAL DIFF FLAG NO
[2023-07-16 08:23] LABS: Basophils Absolute Auto 0.1 X10*3/uL (0.0-0.2); Basophils Percent Auto 0.8 % (0-2); Eosinophils Absolute Auto 0.3 X10*3/uL (0.0-0.4); Eosinophils Percent Auto 3.6 % (0-4); Hematocrit 36.2 % (37.0-47.0); Hemoglobin 11.4 g/dl (12.0-16.0); Imm Gran Abs Auto 0.18 X10*3/uL (0.00-0.03); Imm Gran Pct Auto 2.1 % (0.0-0.4); Lymphocytes Absolute Auto 2.8 X10*3/uL (1.2-4.9); Lymphocytes Percent Auto 33.2 % (20-40); Mean Corpuscular HGB Conc 31.5 g/dl (31.0-35.0); Mean Corpuscular Hemoglobin 30.2 pg (27.0-33.0); Mean Corpuscular Volume 95.8 fL (80.0-98.0); Monocytes Absolute Auto 0.6 X10*3/uL (0.1-1.2); Monocytes Percent Auto 7.5 % (2-11); Neutrophils Absolute Auto 4.5 x10*3/uL (2.0-8.3); Neutrophils Percent Auto 52.8 % (45-73); Platelet Count 365 X10*3/uL (160-400); Red Blood Count 3.78 X10*6/uL (4.20-5.50); Red Cell Distribution Width 13.5 % (11.0-16.0); White Blood Count 8.6 X10*3/uL (4.8-10.8)
[2023-07-16 08:41] LABS: Alanine Aminotransferase 22 U/L (0-31); Albumin Level 3.6 g/dL (3.5-5.0); Alkaline Phosphatase 71 U/L (39-117); Anion Gap 13 (12-20); Aspartate Amino Transferase 20 U/L (5-31); Bilirubin Total 0.3 mg/dL (0.0-1.0); Blood Urea Nitrogen 15 mg/dL (9-16); Calcium 9.1 mg/dL (8.4-10.2); Carbon Dioxide 24 mmol/L (22-29); Chloride 107 mmol/L (96-108); Creatinine Clr Calc Pharmacy 93.1; Estimated Glomerular Filt Rate > 60; Glucose Fasting 112 mg/dL (60-99); Potassium 3.1 mmol/L (3.3-5.1); Sodium 141 mmol/L (135-145); Total Protein 7.8 g/dL (6.5-8.0)
[2023-07-16 11:44] VITALS: BP 122/64; PULSE 89; RESP 18; TEMP 36.9; O2SAT 95
[2023-07-16] MEDS: Acetaminophen 325 MG TABLET 650 MG PO (12:15)
--- NOTE | 2023-07-16 12:45 | HO.WOUND ---
Wound Consult: Initial 68yr old [place] [facility]15[place]23 08:21- See progress notes and H&P for detailed history. Wound consult placed for Buttock assessment - arrival to bedside patient is agreeable to assessment of buttock and coccyx and photo documentation. Pt reveals along with chart review she has had previous full thickness pressure injury development to the sacral / coccyx area. She reports she chronically at [facility] and unfortunately there are times she is sitting in her stool if she does not have a care worker there at the time. She reports she does not have 24hr coverage. She reports she is aware of the impact incontinence has on her skin. She denies use of barrier creams at this time at home - she was educated on the importance of these preventative interventions. Coccyx - Chart review reveals pervious Pressure injury - Currently intact and blanchable but scar tissue noted along with irregular healing pattern noted with large fold noted. Pt states she has had open injury to the coccyx in the past it has healed and reopened on occasion depending on clinical status. She denies use of cream and briefs at home. Advised to continue to off load pressure and limit direct sitting time to 1-2 hour increments. Right Ischium Etiology: Stage 2 Pressure Injury Present on Admission Measurements: see charting for details Wound Bed:partial thickness tissue loss with red moist wound bed Drainage / Odor: serous drainage no odor noted Edges: ?irregular Priti wound: ? light purple red blanchable tissue chronic MASD (Moisture Associated Skin Damage) No Induration, Fluctuance, or Warmth noted Pain: Pt reports mild discomfort Goals of Treatment: ? Moist wound healing and to protect from friction and moisture with Triad Bilateral Buttocks Etiology: Stage 2 Pressure injuries Present on Admission Wound Bed: Red moist partial thickness tissue loss - over suspected previous injury site Drainage / Odor: None noted Edges: ? Irregular Priti wound: ? light purple red blanchable tissue chronic MASD (Moisture Associated Skin Damage) No Induration, Fluctuance, or Warmth noted Pain: Pt reports mild discomfort Goals of Treatment: ? Off Load Pressure Moist wound healing and to protect from friction and moisture with Triad Recommendations: 1. Turn and Reposition every 2 hours and as needed for patient comfort. 2. Off Load all bony prominences with use of pillows and heel boots. 3. Monitor for incontinence and moisture control. 4. Provide adequate and supplemental nutrition. 5. Order or Continue low air loss mattress. 6. Maintain blood glucose levels per Providers orders. 7. Coccyx, Buttocks and Bilateral Ischium - Off Load Pressure - Cleanse with PH balances wipes or spray, pat dry. Apply thin layer of Triad - reapply twice daily and PRN. May cover Upper Buttock and Right Ischium with triad and foam incontinence allows. Re-consult wound care Nurse for wound deterioration.
[2023-07-16 13:46] VITALS: BMI 32.3
--- NOTE | 2023-07-16 13:49 | MHC.CLN ---
RE: CONSULT PT WITH INCREASED NUTRITION RISK R/T PRESSURE INJURIES POOR PO INTAKE [employer] BUILDUP ASSISTANT; CURRENTLY CONSUMING VARIABLE AMOUNTS WITH MEALS RANGING FROM 25-100% DIET RX: REGULAR-APPROPRIATE RECOMMEND ADDING ENSURE MAX BID TO PROMOTE WOUND HEALING SUPP TO PROVIDE 300KCALS, 60G PROTEIN MONITOR PO INTAKE CLOSELY SEE ALSO FULL CLINICAL NUTRITION ASSESSMENT
[2023-07-16 15:36] VITALS: BP 136/66; PULSE 92; RESP 18; TEMP 37; O2SAT 93
[2023-07-16] MEDS: Rivaroxaban 20 MG TABLET PO (15:46)
[2023-07-16 16:28] LABS: Vancomycin Random 19.5 mcg/mL (15-20)
--- NOTE | 2023-07-16 16:31 | P.PNIM_ITS ---
Subjective Subjective Date of Service: 07/16/23 Interval History: Remains afebrile. Tolerant therapy Review of Systems Denies chest pain Denies shortness of breath Denies nausea vomiting diarrhea Fever chills Physical Exam 2 Vital Signs: Vital Signs: Last Vital Signs Temp 98.6 F 07/16/23 15:36 Pulse 92 07/16/23 15:36 Resp 18 07/16/23 15:36 BP 136/66 07/16/23 15:36 Pulse Ox 93 07/16/23 15:36 O2 Del Method Room Air 07/16/23 15:36 BMI result Body Mass Index 32.3 Const: Other: Awake alert no acute distress Resp: Other: Clear to auscultation bilaterally no rales rhonchi wheezes Cardio: Other: No S4; positive S1-S2; no S3 murmurs rubs or gallops GI: Other: Soft nontender nondistended normoactive bowel sounds Extrem: Other: No edema bilaterally Objective Data Active Medications Acetaminophen (Acetaminophen 325 Mg Tablet) 650 mg PO Q6H PRN PRN Reason: Pain, Mild (Pain Scale 1-3) Last Admin: 07/16/23 12:15 Dose: 650 mg Documented By: KOKO Ascorbic Acid (Ascorbic Acid 500 Mg Tablet) 1,000 mg PO BID [facility] Last Admin: 07/16/23 07:41 Dose: 1,000 mg Documented By: KOKO Benzonatate (Benzonatate 100 Mg Capsule) 100 mg PO TID PRN PRN Reason: Cough Docusate Sodium (Docusate Sodium 100 Mg Capsule) 100 mg PO DAILY PRN PRN Reason: Constipation Docusate Sodium (Docusate Sodium 100 Mg Capsule) 100 mg PO DAILY@2100 JUWAN Furosemide (Furosemide 40 Mg Tablet) 40 mg PO DAILY [facility]; Protocol Last Admin: 07/16/23 07:41 Dose: 40 mg Documented By: KOKO Gabapentin (Gabapentin 300 Mg Capsule) 300 mg PO TID [facility] Last Admin: 07/16/23 15:46 Dose: 300 mg Documented By: DIVYA Cefepime HCl 2 gm/ Sodium (Chloride) 50 mls @ 100 mls/hr IV Q12H [facility] Last Admin: 07/16/23 15:43 Dose: 100 mls/hr Documented By: DIVYA Vancomycin HCl 1,250 mg/ (Sodium Chloride) 250 mls @ 166.667 mls/hr IV Q12H [facility] Last Infusion: 07/16/23 08:30 Dose: Infused Documented By: KOKO Levothyroxine Sodium (Levothyroxine Sodium 88 Mcg Tablet) 88 mcg PO DAILY@0600 [facility] Last Admin: 07/16/23 06:39 Dose: 88 mcg Documented By: KRYSTAL Lisinopril (Lisinopril 5 Mg Tablet) 5 mg PO DAILY [facility]; Protocol Last Admin: 07/16/23 07:41 Dose: 5 mg Documented By: KOKO Melatonin (Melatonin 3 Mg Tablet) 6 mg PO BEDTIME PRN PRN Reason: Insomnia Modafinil (Modafinil 100 Mg Tablet) 200 mg PO BID@0800,1200 [facility] Last Admin: 07/16/23 12:09 Dose: 200 mg Documented By: KOKO Ondansetron HCl (Ondansetron Hcl 4 Mg/2 Ml Vial) 4 mg IVPUSH Q8H PRN PRN Reason: Nausea and Vomiting Pharmacy Consult (Consult Rx Vancomycin Dosing) 1 each MISCELLANE DAILY PRN PRN Reason: Consult order Potassium Chloride (Potassium Chloride Er 20 Meq Tab.Er.Prt) 40 meq PO BID [facility] Stop: 07/16/23 21:01 Last Admin: 07/16/23 07:40 Dose: 40 meq Documented By: KOKO Rivaroxaban (Rivaroxaban 20 Mg Tablet) 20 mg PO DAILY@1600 [facility] Last Admin: 07/16/23 15:46 Dose: 20 mg Documented By: DIVYA Sodium Biphosphate/Sodium Phosphate (Sodium Phosphate,[place]-Dibasic 133 Ml Enema) 133 ml [place] ONCE PRN PRN Reason: Constipation Sodium Chloride (0.9 % Sodium Chloride Flush 3 Ml Syringe) 3 ml IVFLUSH QSHIFT [facility] Last Admin: 07/16/23 07:42 Dose: Not Given Documented By: KOKO Non-Admin Reason: IV Running Vitamin D (Cholecalciferol (Vitamin D3) 25 Mcg Tablet) 50 mcg PO DAILY [facility] Last Admin: 07/16/23 07:41 Dose: 50 mcg Documented By: KOKO Labs 07/16/23 06:54 07/16/23 06:54 Labs: Laboratory Results - last 24 hr 07/16/23 07/16/23 06:54 16:06 MCV 95.8 MCH 30.2 MCHC 31.5 RDW 13.5 Plt Count 365 MPV 10.0 Immature Gran % (Auto) 2.1 H Neut % (Auto) 52.8 Lymph % (Auto) 33.2 [place] % (Auto) 7.5 Eos % (Auto) 3.6 Baso % (Auto) 0.8 Lymph # (Auto) 2.8 [place] # (Auto) 0.6 Eos # (Auto) 0.3 Baso # (Auto) 0.1 Abs Immat Gran (auto) 0.18 H Absolute Neuts (auto) 4.5 Absolute Nucleated RBC 0.000 Nucleated RBC % (auto) 0.0 Anion Gap 13 Estim Creat Clear Calc 93.1 Estimated GFR > 60 Fasting Glucose 112 H Calcium 9.1 Total Bilirubin 0.3 AST 20 ALT 22 Alkaline Phosphatase 71 Total Protein 7.8 Albumin 3.6 Random Vancomycin 19.5 Assessment and Plan (1) Catheter-associated urinary tract infection: Status: Acute (2) Sepsis: Status: Acute Plan Pt is a 68-year-old female with a PMH significant for?hx of DVT/PE on xarelto, CVA, CAD, hx of cardiac arrest, hx of MRSA infection, neurogenic bladder on chronic Tran, hx of MS wheelchair bound, Parkinson's variant of multisystem atrophy, lymphoma, HTN, and HLD who presents to the ED with lethargy, anorexia, and fever at home for the past 3 days. 1.Acute UTI (preliminary Pseudomonas/Enterococcus) -meets sepsis criteria: WBCs, HR >90; lactic acid WNL at 1.7; sepsis now resolved -cefepime, (4).. Will add vancomycin for Enterococcus -blood cultures negative times 72 hours -fosfomycin 3 g day 1 repeat in 3 days upon discharge 2.Hx of DVT/PE -continue Xarelto 3.Multiple sclerosis -at baseline -Continue modafinil, gabapentin 4.HTN -acceptable control on current therapy -adjust as indicated DNR/DNI Xarelto Patient requires ongoing hospitalization for IV antibiotics pending identification and sensitivity of urine culture Quality Stroke Does the patient have a stroke diagnosis?: No VTE Prior VTE?: No VTE Risk Level:: Medical - moderate - high VTE Device Contraindication: Treatment Not Indicated VTE Drug Contraindication: N/A - Med Ordered
--- NOTE | 2023-07-16 16:55 | HE.PHANOTE ---
Addendum entered by Dominick Estrada reginaldo 07/16/23 17:03: HELD PM DOSE. NEXT DOSE 07/17 11AM AND TROUGH 06/17 @ 2100 Original Note: VANCOMYCIN DOSE ADJUSTMENT BASED ON SCR AND TROUGH OF 19.5 DOSE DECREASED 1000 Q 12H AND RESTARTED LATER AT 11PM TO GIVE THE PATIENT TIME TO CLEAR. NEXT LEVEL 07/17 @ 0900
[2023-07-16 19:36] VITALS: BP 120/57; PULSE 92; RESP 19; TEMP 35.8; O2SAT 94
[2023-07-16] MEDS: Docusate Sodium 100 MG CAPSULE PO (22:51)
--- NOTE | 2023-07-16 22:59 | PC.NURSE ---
Addendum entered by Dakota Dasilva RN 07/16/23 23:16: Security at bedside. Patient has voice memos open on phone in view of security. Patient politely asked to delete the recordings Original Note: Currently in patient room. Patient not in any respiratory distress. Patient reports having no pain and declines any tylenol or pain medication. Patient accusatory and argumentative. 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 Charge nurse informed. Patient yelling at this nurse and beltran Banegas about being neglected. Medications swallowed. Call perez in reach. Nurse distillery supervisor Sabrina notified. Secuirty called. Scheduled care delivered. Plan of care ongoing.
[2023-07-16 23:02] VITALS: BP 135/65; PULSE 92; RESP 17; O2SAT 95
--- NOTE | 2023-07-17 00:32 | P.CNID_ITS ---
History of Present Illness Data of Consult Service Date: 07/16/23 Requesting physician: Rogelio Mata Primary Care Provider: Kristen Jean Baptiste MD HPI Reason for consult: sepsis concern,Pseudomonas and enterococcus in urine She presents to ER with temperature 102 as well as lethargy for a day. She says she feels this way when she has UTI. She has MS and chronic indwelling Tran and I had seen her in 2021 for similar complaints of urinary infection. She is wheelchair bound with a chronic Tran and has been treated with po fosfomycin before in 08/30/2021. She is familiar to [employer] and [facility] systems as she was referred by Dr Gage Bass for recurrent urinary tract infection management per ID note author Tana Tavera and attending Ben Gregg, 08/30/2021, [facility]. Review of Systems 2 Review of Systems: Yes all other systems are reviewed and are negative Constitutional: Constitutional: Reports chills and Reports fever(s) Genitourinary: Genitourinary: Reports urinary urgency PMFSH Past Medical History Medical History Sacral decubitus ulcer Pulmonary emboli Cardiac arrest History of trigeminal neuralgia COVID-19 vaccine series completed Osteoporosis NENO (obstructive sleep apnea) Parkinson's variant of multiple system atrophy Wheelchair bound Thyroid disease History of neurogenic bladder History of MRSA infection Hx of lymphoma Arthritis Back pain Hx pulmonary embolism DVT (deep venous thrombosis) Anemia Hiatal hernia Tran catheter in place Bladder stones Multiple sclerosis CVA (cerebral vascular accident) Myocardial infarction HTN (hypertension) Recurrent UTI Family History Family history: reviewed and not pertinent Surgical History Surgical History Hx of hysterectomy Hx of lumpectomy Hx of vitrectomy History of intraocular lens implant Hx of adenoidectomy Hx of tonsillectomy Hx of laminectomy History of cystoscopy History of biopsy of bladder History of bladder surgery H/O colonoscopy Social History Social History Household Members: None Housing: Apartment Are you a primary career technical education instructor to a significant other at home: No Do you presently have visiting nurse or other home services: Yes ([employer]) Patient Tobacco Use Status: Never used Tobacco Second Hand Smoke Exposure: No Currently Displaying Signs/Symptoms of Drug Intoxication Withdrawal: No Advance Directives: Yes Advance Directives on File: Yes Advance Directives Date on File: 07/05/20 Nutrition Risks: No Nutritional Risk service: No Current occupational status: disabled Meds Allergies Allergy/AdvReac Type Severity Reaction Status Date / Time mercury (elemental) Allergy Severe Anaphylaxis Verified 02/07/23 14:03 Penicillins Allergy Severe Hives Verified 02/07/23 14:03 bupropion [From Wellbutrin] Allergy Intermediate Hives Verified 02/07/23 14:03 Iodinated Contrast Media Allergy Intermediate Hives Verified 02/07/23 14:03 [IV Contrast Dye] morphine Allergy Intermediate Hives Verified 02/07/23 14:03 metoclopramide [From Reglan] AdvReac Intermediate Parkinson Verified 02/07/23 14:03 syndrome Active Medications: Current Medications Acetaminophen (Acetaminophen 325 Mg Tablet) 650 mg PO Q6H PRN PRN Reason: Pain, Mild (Pain Scale 1-3) Last Admin: 07/16/23 12:15 Dose: 650 mg Ascorbic Acid (Ascorbic Acid 500 Mg Tablet) 1,000 mg PO BID [facility] Last Admin: 07/16/23 22:51 Dose: 1,000 mg Benzonatate (Benzonatate 100 Mg Capsule) 100 mg PO TID PRN PRN Reason: Cough Docusate Sodium (Docusate Sodium 100 Mg Capsule) 100 mg PO DAILY PRN PRN Reason: Constipation Docusate Sodium (Docusate Sodium 100 Mg Capsule) 100 mg PO DAILY@2100 [facility] Last Admin: 07/16/23 22:51 Dose: 100 mg Furosemide (Furosemide 40 Mg Tablet) 40 mg PO DAILY [facility]; Protocol Last Admin: 07/16/23 07:41 Dose: 40 mg Gabapentin (Gabapentin 300 Mg Capsule) 300 mg PO TID [facility] Last Admin: 07/16/23 22:52 Dose: 300 mg Cefepime HCl 2 gm/ Sodium (Chloride) 50 mls @ 100 mls/hr IV Q12H [facility] Last Infusion: 07/16/23 18:08 Dose: Infused Vancomycin HCl 1,000 mg/ (Sodium Chloride) 270 mls @ 270 mls/hr IV Q12H [facility] Levothyroxine Sodium (Levothyroxine Sodium 88 Mcg Tablet) 88 mcg PO DAILY@0600 [facility] Last Admin: 07/16/23 06:39 Dose: 88 mcg Lisinopril (Lisinopril 5 Mg Tablet) 5 mg PO DAILY [facility]; Protocol Last Admin: 07/16/23 07:41 Dose: 5 mg Melatonin (Melatonin 3 Mg Tablet) 6 mg PO BEDTIME PRN PRN Reason: Insomnia Modafinil (Modafinil 100 Mg Tablet) 200 mg PO BID@0800,1200 [facility] Last Admin: 07/16/23 12:09 Dose: 200 mg Ondansetron HCl (Ondansetron Hcl 4 Mg/2 Ml Vial) 4 mg IVPUSH Q8H PRN PRN Reason: Nausea and Vomiting Pharmacy Consult (Consult Rx Vancomycin Dosing) 1 each MISCELLANE DAILY PRN PRN Reason: Consult order Rivaroxaban (Rivaroxaban 20 Mg Tablet) 20 mg PO DAILY@1600 [facility] Last Admin: 07/16/23 15:46 Dose: 20 mg Sodium Biphosphate/Sodium Phosphate (Sodium Phosphate,[place]-Dibasic 133 Ml Enema) 133 ml [place] ONCE PRN PRN Reason: Constipation Sodium Chloride (0.9 % Sodium Chloride Flush 3 Ml Syringe) 3 ml IVFLUSH QSHIFT [facility] Last Admin: 07/16/23 22:58 Dose: Not Given Vitamin D (Cholecalciferol (Vitamin D3) 25 Mcg Tablet) 50 mcg PO DAILY [facility] Last Admin: 07/16/23 07:41 Dose: 50 mcg Home Medications Medication Instructions Recorded Confirmed Last Taken Type acetaminophen 500 mg capsule 1,000 mg PO BID 06/18/20 07/12/23 02/13/22 History furosemide 40 mg tablet 40 mg PO DAILY 06/18/20 07/12/23 02/13/22 History levothyroxine 88 mcg tablet 88 mcg PO DAILY 06/18/20 07/12/23 02/13/22 History lisinopril 5 mg tablet 5 mg PO DAILY 06/18/20 07/12/23 05/15/22 History rivaroxaban 20 mg tablet 20 mg PO DAILY 06/18/20 07/12/23 02/13/22 History cholecalciferol (vitamin D3) 50 1 cap PO DAILY 02/13/22 07/12/23 02/13/22 History mcg (2,000 unit) capsule ascorbic acid (vitamin C) 1,000 mg 1,000 mg PO BID 11/14/22 07/12/23 Unknown History tablet (Vitamin C) docusate sodium 100 mg capsule 100 mg PO DAILY 11/14/22 07/12/23 Unknown History gabapentin 300 mg capsule 300 mg PO TID 07/12/23 07/12/23 Unknown History modafinil 200 mg tablet (Provigil) 200 mg PO BID 07/12/23 07/12/23 Unknown History Physical Exam 2 Vital Signs: Vital Signs: Last Vital Signs Temp 96.4 F L 07/16/23 19:36 Pulse 92 07/16/23 23:02 Resp 17 07/16/23 23:02 BP 135/65 07/16/23 23:02 Pulse Ox 95 07/16/23 23:02 O2 Del Method Room Air 07/16/23 23:02 BMI result Body Mass Index 32.3 Const: General: cooperative HEENT: Head: Yes normal to inspection Face and sinus: Yes normal facial exam Mouth: Normal oral and palatal mucosa present Teeth and gingiva: d entition normal Eyes: General: appearance normal, both eyes and all related structures P upils: Equal, round and reactive pupils present Resp: Effort & Inspection: normal respiratory effort Cardio: Rate: regular rate Rhythm: regular rhythm GI: Palpation (GI): Soft to palpation and nontender : General: Yes no CVA tenderness Back/Spine/Pelvis: Other: wheelchair bound Back: no CVA tenderness Skin: General skin exam: no rashes or lesions noted Neuro: General: moves all extremities Cranial nerves: Yes Equal, round and reactive pupils present Extrem: General: Yes normal to inspection Psych: Appearance: grossly normal Results Labs 07/16/23 06:54 07/16/23 06:54 Labs: Short CBC 07/16/23 Range/Units 06:54 WBC 8.6 (4.8-10.8) X10*3/uL Hgb 11.4 L (12.0-16.0) g/dl Hct 36.2 L (37.0-47.0) % Plt Count 365 (160-400) X10*3/uL BMP 07/16/23 06:54 Sodium 141 Potassium 3.1 L Chloride 107 Carbon Dioxide 24 BUN 15 Creatinine 0.67 Calcium 9.1 Liver Function 07/16/23 Range/Units 06:54 Total Bilirubin 0.3 (0.0-1.0) mg/dL AST 20 (5-31) U/L ALT 22 (0-31) U/L Alkaline Phosphatase 71 (39-117) U/L Albumin 3.6 (3.5-5.0) g/dL Microbiology Microbiology Results: Microbiology 07/12/23 18:06 Urine clean catch - Urine estes top Urine Culture - Final Pseudomonas aeruginosa Enterococcus faecalis 07/12/23 15:38 Blood - Venous Blood Culture - Preliminary No growth after 48 hours. 07/12/23 15:09 Blood - Venous Blood Culture - Preliminary No growth after 48 hours. Assessment and Plan (1) Catheter-associated urinary tract infection: Qualifiers: Encounter type: initial encounter Indwelling urinary catheter type: i ndwelling urethral catheter Qualified Code(s): T83.511A - Infection and inflammatory reaction due to indwelling urethral catheter, initial encounter; N39.0 - Urinary tract infection, site not specified Status: Acute She has urinary infection and likely has chronic colonization with these organisms She is taking Cefepima and Vancomycin for Pseudomonas and enterococcus respectively. (2) Elevated WBC count: Qualifiers: Leukocytosis type: unspecified Qualified Code(s): D72.829 - Elevated white blood cell count, unspecified Status: Acute (3) Recurrent UTI (urinary tract infection): Status: Acute (4) Multiple sclerosis: Status: Acute (5) Painful bladder spasm: Status: Acute (6) Neurogenic urinary bladder disorder: Status: Acute Plan Would likely discharge patient again on po Fosfomycin when improved, after likely 3-7 days IV antibiotics. would give 3 g po Fosfomycin and then in three days another dose of 3 g. She was worried that [facility] ID wouldnt be able to follow her anymore and Dr Bass would be upset since I am seeing her today and Dr Bass told her that she should see [facility] but I told her that she would be able [facility] and that I would talk to her about her stay here. She then was talking to Patient Experience and hopefully feeling better.
[2023-07-17] MEDS: cefEPime HCl 2 GM in 0.9 % Sodium Chloride 50 ML IV (03:42)
[2023-07-17 03:45] VITALS: BP 131/69; PULSE 86; RESP 17; TEMP 36.3; O2SAT 92
[2023-07-17] MEDS: Levothyroxine Sodium 88 MCG TABLET PO (06:39)
[2023-07-17 07:57] VITALS: BP 137/70; PULSE 79; RESP 18; TEMP 36.2; O2SAT 94
--- NOTE | 2023-07-17 08:32 | PM.DS ---
DS: Providers Provider Date of Service: 07/17/23 Date of admission: 07/15/23 08:21 Date of discharge: 07/17/23 Primary care physician: Kristen Jean Baptiste MD Consults: 07/15/23 13:32 Consult to Infectious Diseases Routine Consulting Provider: [facility] Infectious Disease Reason for consultation: Pseudomonas /Enterococcus UTI Has provider been notified: Yes 07/16/23 09:19 Consult to Wound Care Routine Reason for consultation: wounds/low james scale DS: Diagnosis Discharge Diagnosis (1) Catheter-associated urinary tract infection: Status: Acute (2) Sepsis: Status: Acute (3) Recurrent UTI (urinary tract infection): Status: Acute (4) Multiple sclerosis: Status: Acute DS: Summary Status at Discharge Cognitive/behavioral status at discharge: 68-year-old female with a PMH significant for?hx of DVT/PE on xarelto, CVA, CAD, hx of cardiac arrest, hx of MRSA infection, neurogenic bladder on chronic Tran, hx of MS wheelchair bound, Parkinson's variant of multisystem atrophy, lymphoma, HTN, and HLD who presents to the ED with lethargy, anorexia, and fever at home for the past 3 days. Patient has a history of UTIs and states she normally gets these types of symptoms when she has a UTI. Reports that she has not been eating or drinking much, and sleeping most of the day. Denies polyuria or dysuria. She was last admitted here back in February for UTI that grew Pseudomonas and Serratia marcescens both susceptible to cefepime. Patient denies chest pain/pressure, palpitations. No shortness of breath. Denies nausea, vomiting, abdominal pain. Patient states she went to [employer] [employer] yesterday. Records show normal labs with WBC 10 and urine negative. In the ED pt was afebrile, with pulse has high as 91 and soft BP as low as 111/59, satting at 97% on RA. Labs were significant for leukocytosis of 15.5 in C-reactive protein 13.61, otherwise grossly unremarkable. Stable H&H. Electrolytes WNL. Renal and hepatic function WNL. CXR showed no acute intrathoracic disease but with severe degenerative changes of right shoulder. EKG demonstrated sinus rhythm evidence of ST elevations or depressions. Pt was treated with IVF and cefepime. Pt will be admitted to the hospital under observation for treatment and further evaluation of acute UTI. Hospital Course Admitted to telemetry and started on cefepime pending culture. Urine culture ultimately grew Pseudomonas and Enterococcus both sensitive to level full oxacillin however patient does not tolerate levofloxacin. She was maintained on cefepime and vancomycin was added for Enterococcus coverage. A consult was placed ID who recommended fosfomycin 3 g followed by repeat dose in 3 days. Patient states she is quite comfortable with this as she has taken before and has multiple doses at home. At the time of discharge, blood cultures are negative x5 days. She is medically acceptable for discharge home to resume her services as she has not placed. She is well-versed at managing her care and will resume her outpatient management as previously Time Attestation Discharge coordination time: Greater than 30 minutes Quality: Safe Use of Opioids Does Pt have an Active Cancer Diagnosis on the Problem List?: No Quality: Stroke Does the patient have a stroke diagnosis?: No Physical Exam Vital Signs: Vital Signs: Last Vital Signs Temp 97.1 F 07/17/23 07:57 Pulse 79 07/17/23 07:57 Resp 18 07/17/23 07:57 BP 137/70 07/17/23 07:57 Pulse Ox 94 07/17/23 07:57 O2 Del Method Room Air 07/17/23 07:57 BMI result Body Mass Index 32.3 Const: Other: Awake alert no acute distress Resp: Other: Clear to auscultation bilaterally no rales rhonchi wheezes Cardio: Other: No S4; positive S1-S2; no S3 murmurs rubs or gallops GI: Other: Soft nontender nondistended normoactive bowel sounds Extrem: Other: No edema bilaterally DS: Data Data Completed and Pending Completed studies during hospitalization [Text1]: Procedures Insertion of Infusion Device into Left Cephalic Vein, Percutaneous Approach (02/13/22) Labs on day of discharge: Laboratory Results - last 24 hr 07/16/23 07/16/23 06:54 16:06 Sodium 141 Potassium 3.1 L Chloride 107 Carbon Dioxide 24 Anion Gap 13 BUN 15 Creatinine 0.67 Estim Creat Clear Calc 93.1 Estimated GFR > 60 Fasting Glucose 112 H Calcium 9.1 Total Bilirubin 0.3 AST 20 ALT 22 Alkaline Phosphatase 71 Total Protein 7.8 Albumin 3.6 Random Vancomycin 19.5 Preliminary micro results at discharge 07/12/23 15:38 Blood Culture - Preliminary Blood - Venous No growth after 48 hours. 07/12/23 15:09 Blood Culture - Preliminary Blood - Venous No growth after 48 hours. Discharge Plan Discharge Anticipated Discharge Date/Time: 07/17/23 08:28 Patient Disposition: Home Health Service Discharge Diagnosis: Catheter associated UTI Referrals: Kristen Jean Baptiste MD [Primary Care Provider] - 1 Week Discharge Medications: New fosfomycin tromethamine 3 gram packet 1 packet PO Q OTHER DAY Qty: 2 0RF Continued cholecalciferol (vitamin D3) 50 mcg (2,000 unit) capsule 1 cap PO DAILY modafinil [Provigil] 200 mg tablet 200 mg PO BID gabapentin 300 mg capsule 300 mg PO TID levothyroxine 88 mcg tablet 88 mcg PO DAILY acetaminophen 500 mg capsule 1,000 mg PO BID rivaroxaban 20 mg tablet 20 mg PO DAILY furosemide 40 mg tablet 40 mg PO DAILY lisinopril 5 mg tablet 5 mg PO DAILY estradiol 0.01 % (0.1 mg/gram) cream See Rx Instructions .Route DAILY 30 Days Qty: 42.5 2RF Rx Instructions: pea-sized to urethra 3x a week; docusate sodium 100 mg capsule 100 mg PO DAILY ascorbic acid (vitamin C) [Vitamin C] 1,000 mg tablet 1,000 mg PO BID Discharge Orders: Discharge Order (Routine); Ordered 07/17/23 Ordered By: Rogelio Mata Diet: Advance to usual diet Activity on Discharge: As tolerated Stand Alone Forms: Patient Portal Discharge page Care Plan Goals: Fosfomycin 3 g tomorrow; repeat in 3 days Health Concerns: Resume all medicines as taken prior to the hospitalization Plan of Treatment: Follow-up with PCP/id/urology as planned Assessment: See discharge summary
--- NOTE | 2023-07-17 08:50 | MHC.CM.PN ---
Patient has been medically cleared for dc to home today, with services. Patient is active with [facility], who has been notified of today's dc. CM met with Patient at bedside and addressed IMM with him (original was given to Patient and as copy was placed on the chart). Patient's will transport home.
--- NOTE | 2023-07-17 09:02 | MHC.CM.PN ---
Patient has been medically cleared for dc to home today, with services. Patient is active with Leti FONSECA, who has been notified of today's dc. IMM addressed with Patient at bedside this morning. Patient will dc via [facility] at 9 AM.
== END 2023-07-17 09:39 | disposition home health service (06) | DRG 698 ==
LOC: HO.ED 17:59 → HO.EDOVER 21:17 → HO.IMC 07-13 07:47
PROVIDERS: Admitting Provider Student in an Organized Health Care Education/Training Program; Emergency Provider Emergency Medicine; PCP Family Medicine; Visit Provider Hospitalist
DX: T83.511A Infection and inflammatory reaction due to indwelling urethral catheter, initial encounter (principal); A41.9 Sepsis, unspecified organism; G90.3 Multi-system degeneration of the autonomic nervous system; E03.9 Hypothyroidism, unspecified; G35 Multiple sclerosis; N32.89 Other specified disorders of bladder; N31.9 Neuromuscular dysfunction of bladder, unspecified; G20.A1 Parkinson's disease without dyskinesia, without mention of fluctuations; Z66 Do not resuscitate; Z99.3 Dependence on wheelchair; B96.5 Pseudomonas (aeruginosa) (mallei) (pseudomallei) as the cause of diseases classified elsewhere; B95.2 Enterococcus as the cause of diseases classified elsewhere; G47.33 Obstructive sleep apnea (adult) (pediatric); Z20.822 Contact with and (suspected) exposure to COVID-19; Z87.440 Personal history of urinary (tract) infections; Z86.711 Personal history of pulmonary embolism; Z91.041 Radiographic dye allergy status; Z86.14 Personal history of Methicillin resistant Staphylococcus aureus infection; Z79.01 Long term (current) use of anticoagulants; Z79.890 Hormone replacement therapy; Z79.899 Other long term (current) drug therapy
CPT/HCPCS: 0241U; 36415; 71045; 80048; 80053; 80076; 80202; 81001; 83605; 83690; 83735; 84145; 84443; 85025; 85027; 86140; 87040; 87086; 87088; 87186; 93005; 99222; 99285; C1758; J0692; J3370; J3371

== ENCOUNTER → 2023-07-12 14:46 | Outpatient (BNV) | payer MEDICARE, MEDICAID, SELFPAY | PROVIDERS: Admitting Provider Student in an Organized Health Care Education/Training Program; Emergency Provider Emergency Medicine; PCP Family Medicine; Visit Provider Internal Medicine Cardiovascular Disease | DX: R94.31 Abnormal electrocardiogram [ECG] [EKG] (principal) | CPT/HCPCS: 93010 ==

== ENCOUNTER → 2023-07-12 20:57 | Outpatient (BNV) | payer MEDICARE, MEDICAID, SELFPAY | PROVIDERS: Admitting Provider Student in an Organized Health Care Education/Training Program; Emergency Provider Emergency Medicine; PCP Family Medicine; Visit Provider Student in an Organized Health Care Education/Training Program | DX: A41.9 Sepsis, unspecified organism (principal); T83.511A Infection and inflammatory reaction due to indwelling urethral catheter, initial encounter; N39.0 Urinary tract infection, site not specified; G35 Multiple sclerosis | CPT/HCPCS: 99222; 99233; 99239 ==

== ENCOUNTER → 2023-07-15 08:21 | Outpatient (BNV) | payer MEDICARE, MEDICAID, SELFPAY | PROVIDERS: Admitting Provider Student in an Organized Health Care Education/Training Program; Emergency Provider Emergency Medicine; PCP Family Medicine; Visit Provider Internal Medicine | DX: T83.511A Infection and inflammatory reaction due to indwelling urethral catheter, initial encounter (principal); N39.0 Urinary tract infection, site not specified; D72.829 Elevated white blood cell count, unspecified; G35 Multiple sclerosis; R30.1 Vesical tenesmus; N31.9 Neuromuscular dysfunction of bladder, unspecified | CPT/HCPCS: 99222 ==

== ENCOUNTER 2023-09-07 10:18 | Outpatient (AMB) | payer MEDICARE, MEDICAID, SELFPAY ==
--- NOTE | 2023-09-07 10:19 | A.OFFVIS_ITS ---
Intake Intake Visit Reasons: 6m follow up Intake Note: Patient is Present for Telephone Follow Up follow up Urology Med: Estradiol,. Fosfomycin Antibiotic Allergy: penicillin Blood Thinner: Xarelto Allergies mercury (elemental) Allergy (Severe, Verified 02/07/23 14:03) Anaphylaxis Penicillins Allergy (Severe, Verified 02/07/23 14:03) Hives bupropion [From Wellbutrin] Allergy (Intermediate, Verified 02/07/23 14:03) Hives Iodinated Contrast Media [IV Contrast Dye] Allergy (Intermediate, Verified 02/07/23 14:03) Hives morphine Allergy (Intermediate, Verified 02/07/23 14:03) Hives metoclopramide [From Reglan] Adverse Reaction (Intermediate, Verified 02/07/23 14:03) Parkinson syndrome HPI HPI Comments History of Present Illness Details Michelle is a pleasant female. She is a patient of Dr. Jean Baptiste. She is seen for following urologic conditions - multiple sclerosis - botox with indwel ling catheter - neurogenic bladder - recurring UTIs Telemedicine evaluation 15 minute consultation [facility] uday Video attempted Uses estradiol on urethral opening Recent infection with culture at [facility] which has not been sent to me Switched to adjust [facility] VNA - uses Duette catheter 18 Marshallese every 3 weeks - which appears to protect bladder ID Physician - [facility] Dr Kary Johnson - Neurogenic Bladder: Recurring urinary tract infection, bladder spasm Previously had Pseudomonas infection responsive to ciprofloxacin UTI appears to be decreasing with combination of Estrace, bladder irrigation - gram positive cocci Urinary retention initially found longstanding history. Diagnosed with multiple sclerosis approximately 15 years ago. Had been followed by Dr. Avina for many years Initially managed with clean intermittent catheterization Subsequently managed with indwelling Tran catheter Had been discussion of suprapubic tube placement however VNA nurses prevent this recurring uti 05/[address] Spencer and cystoscopy with removal of bladder stones - 12/01 cystoscopy Botox biopsy performed with chronic cystitis Botox Initial 03/01, 07/02, 10/31, 08/02, 05/04 200 units Urine cultures - Pseudomonas fluoroquinolone resistant, citrobacter amp/cefazolin resistant Can only tolerate short course of fluroquinolones Has standing order for urine culture collection through VNA Previously used fosfomycin for catheter changes PFSH Medical History Sacral decubitus ulcer Pulmonary emboli Cardiac arrest History of trigeminal neuralgia COVID-19 vaccine series completed Osteoporosis NENO (obstructive sleep apnea) Parkinson's variant of multiple system atrophy Wheelchair bound Thyroid disease History of neurogenic bladder History of MRSA infection Hx of lymphoma Arthritis Back pain Hx pulmonary embolism DVT (deep venous thrombosis) Anemia Hiatal hernia Tran catheter in place Bladder stones Multiple sclerosis CVA (cerebral vascular accident) Myocardial infarction HTN (hypertension) Recurrent UTI Surgical History Hx of hysterectomy Hx of lumpectomy Hx of vitrectomy History of intraocular lens implant Hx of adenoidectomy Hx of tonsillectomy Hx of laminectomy History of cystoscopy History of biopsy of bladder History of bladder surgery H/O colonoscopy Social History Household Members: None Housing: Apartment Are you a primary home health care respiratory therapist to a significant other at home: No Do you presently have visiting nurse or other home services: Yes ([employer] IN WORKER) Patient Tobacco Use Status: Never used Tobacco Second Hand Smoke Exposure: No Advance Directives Date on File: 07/05/20 service: No Current occupational status: disabled Review of Systems Const All systems reviewed & are unremarkable except as noted in HPI and below Reports no additional complaints Resp Reports no additional complaints GI Reports no additional complaints Reports as per HPI Musc Reports no additional complaints Physical Exam Telemedicine evaluation Appropriate responses Regular breathing rate and rhythm HEENT Head: Yes normal to inspection Ears: hearing grossly normal bilaterally Eyes General: appearance normal, both eyes and all related structures Neck Neck: Yes normal visual inspection Chest Chest palpation & inspection: normal inspection of the chest Resp Effort & Inspection: normal respiratory effort and able to speak in complete sentences Assessment & Plan Assessment & Plan (1) Urinary tract infection: Code(s): N39.0 - Urinary tract infection, site not specified Plan 6m f/u tele Patient Instructions: Imaging studies, laboratory and physical exam results were discussed and reviewed in detail. No major barriers to patient understanding were identified. An opportunity to ask questions regarding the treatment plan was provided. All questions were answered. The patient expressed understanding and agreement with the above treatment plan. The patient is aware they should contact our office by phone for worsening of their current condition or the appearance of new urologic symptoms. Compliance is encouraged with any medications and followup testing that is ordered. It is a privilege to participate in the urologic care of your patient. If you have any questions or concerns regarding treatment for the above conditions, or other urologic issues, please do not hesitate to contact me. The office telephone contact is [phone]. This note is constructed using voice recognition software. While every effort has been made to ensure accuracy or assistant errors may have been included. Yours sincerely, Dr Gage Bass MD, [facility] - Urology Providers of Expert, Compassionate Care for the Genitourinary System Telehealth Telehealth Location of provider rendering services: practice address Location of patient: address on file Patient Identification confirmed using: Name, : Yes Telehealth method: video Patient verbally consented to treatment: Yes Patient verbally consented to billing insurance company: Yes Patient informed of any privacy concerns related to visit: Yes Coding Level of Care Code Tele Est Pt Level 4 (29898) Diagnoses Urinary tract infection N39.0
== END 2023-09-07 11:06 | disposition home or self-care (01) ==
LOC: HO.HUSH 10:18
PROVIDERS: PCP Family Medicine; Visit Provider Urology
DX: N39.0 Urinary tract infection, site not specified (principal)
CPT/HCPCS: 99214

== ENCOUNTER → 2023-09-07 10:18 | Outpatient (BNVA) | payer MEDICARE, MEDICAID, SELFPAY | PROVIDERS: PCP Family Medicine; Visit Provider Urology ==

== ENCOUNTER 2023-10-19 12:45 | Outpatient (AMB) | payer MEDICARE, MEDICAID, SELFPAY ==
--- NOTE | 2023-10-19 12:46 | A.OFFVIS_ITS ---
Intake Intake Visit Reasons: H&P/Discuss OR Cystoscopy Intake Note: Patient presents today for a telehealth follow-up to discuss procedure Meds- Estradiol Allergies to Antibiotic- Penicillins Blood Thinner- Xarelto [place]pwood Cutter Required: No Allergies mercury (elemental) Allergy (Severe, Verified 10/19/23 12:49) Anaphylaxis Penicillins Allergy (Severe, Verified 10/19/23 12:49) Hives bupropion [From Wellbutrin] Allergy (Intermediate, Verified 10/19/23 12:49) Hives Iodinated Contrast Media [IV Contrast Dye] Allergy (Intermediate, Verified 10/19/23 12:49) Hives morphine Allergy (Intermediate, Verified 10/19/23 12:49) Hives metoclopramide [From Reglan] Adverse Reaction (Intermediate, Verified 10/19/23 12:49) Parkinson syndrome HPI HPI Comments History of Present Illness Details Michelle is a pleasant female. She is a patient of Dr. Jean Baptiste. She is seen for following urologic conditions - multiple sclerosis - botox with indwel ling catheter - neurogenic bladder - recurring UTIs Telemedicine evaluation 15 minute consultation [facility] uday Video attempted Occlusions to catheter Mucus/debris with blood Will do culture at next catheter change Needs botox at next visit Uses estradiol on urethral opening Recent infection with culture at [facility] which has not been sent to tx [facility] - uses Duette catheter 18 Micronesian every 3 weeks - which appears to protect bladder - uses irrigation every other day ID Physician - [facility] Dr Kary Johnson - Neurogenic Bladder: Recurring urinary tract infection, bladder spasm Previously had Pseudomonas infection responsive to ciprofloxacin UTI appears to be decreasing with combination of Estrace, bladder irrigation - gram positive cocci Urinary retention initially found longstanding history. Diagnosed with multiple sclerosis approximately 15 years ago. Had been followed by Dr. Avina for many years Initially managed with clean intermittent catheterization Subsequently managed with indwelling Tran catheter Had been discussion of suprapubic tube placement however VNA nurses prevent this recurring uti 05/[address] Spencer and cystoscopy with removal of bladder stones - 12/01 cystoscopy Botox biopsy performed with chronic cystitis Botox Initial 03/01, 07/02, 10/31, 08/02, 05/04 200 units Urine cultures - Pseudomonas fluoroquinolone resistant, citrobacter amp /cefazolin resistant Can only tolerate short course of fluroquinolones Has standing order for urine culture collection through VNA Previously used fosfomycin for catheter changes PFSH Medical History Recurrent UTI (urinary tract infection) Neurogenic urinary bladder disorder Painful bladder spasm Multiple sclerosis Sacral decubitus ulcer Pulmonary emboli Cardiac arrest History of trigeminal neuralgia COVID-19 vaccine series completed Osteoporosis NENO (obstructive sleep apnea) Parkinson's variant of multiple system atrophy Wheelchair bound Thyroid disease History of neurogenic bladder History of MRSA infection Hx of lymphoma Arthritis Back pain Hx pulmonary embolism DVT (deep venous thrombosis) Anemia Hiatal hernia Tran catheter in place Bladder stones Multiple sclerosis CVA (cerebral vascular accident) Myocardial infarction HTN (hypertension) Recurrent UTI Surgical History Hx of hysterectomy Hx of lumpectomy Hx of vitrectomy History of intraocular lens implant Hx of adenoidectomy Hx of tonsillectomy Hx of laminectomy History of cystoscopy History of biopsy of bladder History of bladder surgery H/O colonoscopy Social History Household Members: None Housing: Apartment Are you a primary acute care nurse to a significant other at home: No Do you presently have visiting nurse or other home services: Yes ([employer]) Patient Tobacco Use Status: Never used Tobacco Second Hand Smoke Exposure: No Advance Directives Date on File: 07/05/20 service: No Current occupational status: disabled Review of Systems Const All systems reviewed & are unremarkable except as noted in HPI and below Reports no additional complaints Resp Reports no additional complaints GI Reports no additional complaints Reports as per HPI Musc Reports no additional complaints Physical Exam Telemedicine evaluation Appropriate responses Regular breathing rate and rhythm HEENT Head: Yes normal to inspection Ears: hearing grossly normal bilaterally Eyes General: appearance normal, both eyes and all related structures Neck Neck: Yes normal visual inspection Chest Chest palpation & inspection: normal inspection of the chest Resp Effort & Inspection: normal respiratory effort and able to speak in complete sentences Assessment & Plan Assessment & Plan (1) Urinary tract infection: Code(s): N39.0 - Urinary tract infection, site not specified Plan Risks, benefits and alternatives to therapy were discussed. These include but are not limited to infection, bleeding, damage to local organs and tissues, need for further interventions. Anesthetic risks regarding cardiac arrhythmia, blood clots, and potential mortality were discussed. The patient understands the typical recovery time and the outpatient nature of the procedure. After consideration of these risks the patient gives full informed consent and they wish to move ahead with the procedure. - cystoscopy with botox injection Patient Instructions: Imaging studies, laboratory and physical exam results were discussed and reviewed in detail. No major barriers to patient understanding were identified. An opportunity to ask questions regarding the treatment plan was provided. All questions were answered. The patient expressed understanding and agreement with the above treatment plan. The patient is aware they should contact our office by phone for worsening of their current condition or the appearance of new urologic symptoms. Compliance is encouraged with any medications and followup testing that is ordered. It is a privilege to participate in the urologic care of your patient. If you have any questions or concerns regarding treatment for the above conditions, or other urologic issues, please do not hesitate to contact me. The office telephone contact is [phone]. This note is constructed using voice recognition software. While every effort has been made to ensure accuracy consumer insight manager errors may have been included. Yours sincerely, Dr Gage Bass MD, [facility] - Urology Providers of Expert, Compassionate Care for the Genitourinary System Telehealth Telehealth Location of provider rendering services: practice address Location of patient: address on file Patient Identification confirmed using: Name, : Yes Telehealth method: video Patient verbally consented to treatment: Yes Patient verbally consented to billing insurance company: Yes Patient informed of any privacy concerns related to visit: Yes Coding Level of Care Code Tele Est Pt Level 4 (50572) Diagnoses Urinary tract infection N39.0
== END 2023-10-19 14:08 | disposition home or self-care (01) ==
LOC: HO.HUSH 12:46
PROVIDERS: PCP Family Medicine; Visit Provider Urology
DX: N39.0 Urinary tract infection, site not specified (principal)
CPT/HCPCS: 99214

== ENCOUNTER → 2023-10-19 12:45 | Outpatient (BNVA) | payer MEDICARE, MEDICAID, SELFPAY | PROVIDERS: PCP Family Medicine; Visit Provider Urology ==

== ENCOUNTER 2023-11-19 12:01 | Day surgery (SDC) | payer MEDICARE, MEDICAID, SELFPAY ==
--- NOTE | 2023-11-16 12:36 | HO.ANESPROP2 ---
Documented by User: Magdalena Baumann NP 11/16/23 12:44 HPI - Anesthesia Eval Consult details Narrative: 67yo F for Cystoscopy Botox Injection s/p same 05/2022 with GA-LMA 4 Xarelto for chronic saddle PE's/DVT Wheelchair bound - MS/parkinsons PMFSH Active Problems Active Problems: All Active Problems Urinary tract infection (Acute) Past Medical History Medical History (Updated 11/15/23 @ 10:16 by Laura Godfrey RN) Recurrent UTI (urinary tract infection) Sacral decubitus ulcer Pulmonary emboli Cardiac arrest History of trigeminal neuralgia COVID-19 vaccine series completed Osteoporosis Neurogenic urinary bladder disorder NENO (obstructive sleep apnea) Parkinson's variant of multiple system atrophy Thyroid disease History of neurogenic bladder History of MRSA infection Hx of lymphoma Arthritis Back pain Hx pulmonary embolism DVT (deep venous thrombosis) Anemia Hiatal hernia Tran catheter in place Bladder stones Multiple sclerosis CVA (cerebral vascular accident) Myocardial infarction HTN (hypertension) Painful bladder spasm Family History Family history of problems with anesthesia: No Surgical History Surgical History Hx of hysterectomy Hx of lumpectomy Hx of vitrectomy History of intraocular lens implant Hx of adenoidectomy Hx of tonsillectomy Hx of laminectomy History of cystoscopy History of biopsy of bladder History of bladder surgery H/O colonoscopy History of Problems with Anesthesia: No Social History Social History Household Members: None Housing: Apartment Are you a primary career transition specialist to a significant other at home: No Do you presently have visiting nurse or other home services: Yes ([employer]CH[employer]) Patient Tobacco Use Status: Never used Tobacco Second Hand Smoke Exposure: No Advance Directives: No Advance Directives Information Provided: Yes Advance Directives Date on File: 07/05/20 service: No Current occupational status: disabled Meds Allergies Allergy/AdvReac Type Severity Reaction Status Date / Time mercury (elemental) Allergy Severe Anaphylaxis Verified 11/19/23 13:58 Penicillins Allergy Severe Hives Verified 11/19/23 13:58 bupropion [From Wellbutrin] Allergy Intermediate Hives Verified 11/19/23 13:58 Iodinated Contrast Media Allergy Intermediate Hives Verified 11/19/23 13:58 [IV Contrast Dye] morphine Allergy Intermediate Hives Verified 11/19/23 13:58 metoclopramide [From Reglan] AdvReac Intermediate Parkinson Verified 11/19/23 13:58 syndrome Home Medications ?Medication ?Instructions ?Recorded ?Confirmed ?Last Taken ?Type acetaminophen 500 mg capsule 1,000 mg PO BID 06/18/20 11/19/23 02/13/22 History furosemide 40 mg tablet 40 mg PO DAILY 06/18/20 11/19/23 02/13/22 History levothyroxine 88 mcg tablet 88 mcg PO DAILY 06/18/20 11/19/23 11/19/23 History lisinopril 5 mg tablet 5 mg PO DAILY 06/18/20 11/19/23 11/19/23 History rivaroxaban 20 mg tablet 20 mg PO DAILY 06/18/20 11/19/23 11/16/23 History cholecalciferol (vitamin D3) 50 1 cap PO DAILY 02/13/22 11/19/23 02/13/22 History mcg (2,000 unit) capsule docusate sodium 100 mg capsule 100 mg PO DAILY 11/14/22 11/19/23 Unknown History gabapentin 300 mg capsule 300 mg PO TID 07/12/23 11/19/23 Unknown History modafinil 200 mg tablet (Provigil) 200 mg PO BID 07/12/23 11/19/23 Unknown History Exam Height,Weight and Vital Signs: Height 5 ft Assessment and Plan Final Anesthetic Review Family History of Problems with Anesthesia: No History of Problems with Anesthesia: No Documented by User: Denver Lala MD 11/19/23 14:53 COUNT INCLUDES THE [facility] Past Medical History Medical History (Updated 11/15/23 @ 10:16 by Laura Godfrey RN) Recurrent UTI (urinary tract infection) Sacral decubitus ulcer Pulmonary emboli Cardiac arrest History of trigeminal neuralgia COVID-19 vaccine series completed Osteoporosis Neurogenic urinary bladder disorder NENO (obstructive sleep apnea) Parkinson's variant of multiple system atrophy Thyroid disease History of neurogenic bladder History of MRSA infection Hx of lymphoma Arthritis Back pain Hx pulmonary embolism DVT (deep venous thrombosis) Anemia Hiatal hernia Tran catheter in place Bladder stones Multiple sclerosis CVA (cerebral vascular accident) Myocardial infarction HTN (hypertension) Painful bladder spasm Surgical History Surgical History Hx of hysterectomy Hx of lumpectomy Hx of vitrectomy History of intraocular lens implant Hx of adenoidectomy Hx of tonsillectomy Hx of laminectomy History of cystoscopy History of biopsy of bladder History of bladder surgery H/O colonoscopy Social History Social History Household Members: None Housing: Apartment Are you a primary career transition specialist to a significant other at home: No Do you presently have visiting nurse or other home services: Yes ([employer]CHITECT) Patient Tobacco Use Status: Never used Tobacco Second Hand Smoke Exposure: No Advance Directives: No Advance Directives Information Provided: Yes Advance Directives Date on File: 07/05/20 service: No Current occupational status: disabled Meds Allergies Allergy/AdvReac Type Severity Reaction Status Date / Time mercury (elemental) Allergy Severe Anaphylaxis Verified 11/19/23 13:58 Penicillins Allergy Severe Hives Verified 11/19/23 13:58 bupropion [From Wellbutrin] Allergy Intermediate Hives Verified 11/19/23 13:58 Iodinated Contrast Media Allergy Intermediate Hives Verified 11/19/23 13:58 [IV Contrast Dye] morphine Allergy Intermediate Hives Verified 11/19/23 13:58 metoclopramide [From Reglan] AdvReac Intermediate Parkinson Verified 11/19/23 13:58 syndrome Home Medications ?Medication ?Instructions ?Recorded ?Confirmed ?Last Taken ?Type acetaminophen 500 mg capsule 1,000 mg PO BID 06/18/20 11/19/23 02/13/22 History furosemide 40 mg tablet 40 mg PO DAILY 06/18/20 11/19/23 02/13/22 History levothyroxine 88 mcg tablet 88 mcg PO DAILY 06/18/20 11/19/23 11/19/23 History lisinopril 5 mg tablet 5 mg PO DAILY 06/18/20 11/19/23 11/19/23 History rivaroxaban 20 mg tablet 20 mg PO DAILY 06/18/20 11/19/23 11/16/23 History cholecalciferol (vitamin D3) 50 1 cap PO DAILY 02/13/22 11/19/23 02/13/22 History mcg (2,000 unit) capsule docusate sodium 100 mg capsule 100 mg PO DAILY 11/14/22 11/19/23 Unknown History gabapentin 300 mg capsule 300 mg PO TID 07/12/23 11/19/23 Unknown History modafinil 200 mg tablet (Provigil) 200 mg PO BID 07/12/23 11/19/23 Unknown History Exam Airway Mallampati Class: II TM Dist: <=3cm Neck ROM: Full Loose/Missing/Broken Teeth: No Heart: ok Lungs: ok Assessment and Plan Assessment Anesthesia Assessment: Anesthesia Plan Discussed and Chart Reviewed Final Anesthetic Review NPO: Yes ASA Class: IV Final Preanesthetic Review: No Changes in Pt Med Stat, Meds/Allgs Chart Reviewed, Consent Obtained/Reviewed, Anes Risks/Benef Reviewed and DNR Form (If Appl.) Patient Risk: High Procedure Risk: Low Anesthetic Plan Anesthetic Plan: MAC:, Agree w/ Assess. and Plan and TIVA Disposition: Standard PACU
--- NOTE | 2023-11-19 14:16 | MHC.SHP ---
Pre-Procedural Eval Section A - 24 Hr Update-Section A only Date of Service: 11/19/23 The patient is an INPATIENT: No Changes since office visit: No Cold of Flu in the past 2 weeks, No New Medical Problems, No Changes in Medication and No Patient answered all questions The patient has been examined within 24 hours of the surgical procedure. The History & Physical has been completed within 30 days and I have reviewed it.: Yes Section B - Complete if H&P > 30 days Chief Complaint: Neuromuscular dysfunction of bladder, unspecified Details of Present Illness: Neuromuscular bladder, setting of multiple sclerosis Allergies: Allergies Allergy/AdvReac Type Severity Reaction Status Date / Time mercury (elemental) Allergy Severe Anaphylaxis Verified 11/19/23 13:58 Penicillins Allergy Severe Hives Verified 11/19/23 13:58 bupropion [From Wellbutrin] Allergy Intermediate Hives Verified 11/19/23 13:58 Iodinated Contrast Media Allergy Intermediate Hives Verified 11/19/23 13:58 [IV Contrast Dye] morphine Allergy Intermediate Hives Verified 11/19/23 13:58 metoclopramide [From Reglan] AdvReac Intermediate Parkinson Verified 11/19/23 13:58 syndrome Review of Systems Sugical H&P ROS: Negative: Constitution, Cardiovascular, Respiratory, Neurological, Psychiatric, Hem-Onc, Allergic/Immunologic, Gastrointestinal, Genitourinary, Musculoskeletal, Integumentary, Endocrine and Eyes/Ears/Nose/Throat Exam Surgical H&P Exam: Normal: HEENT, Normal: Heart, Normal: Lungs, Normal: Extremities, Normal: Abdomen, Normal: Skin and Normal: Neurological Plan Diagnosis/Plan: Unchanged (Cystoscopy, Botox) I have reviewed the history and physical and performed a pertinent physical examination on my patient. No changes have occurred unless specified. Time Spent With Patient Time: Total time managing care of this patient today ____ minutes.
[2023-11-19 14:21] VITALS: BP 136/64; PULSE 82; RESP 16; TEMP 36.8; O2SAT 98
[2023-11-19 14:24] VITALS: BMI 42.0
--- NOTE | 2023-11-19 14:24 | P.HPSUR_ITS ---
Pre-Procedural Eval Section A - 24 Hr Update-Section A only Date of Service: 11/19/23 The patient is an INPATIENT: No Changes since office visit: No Cold of Flu in the past 2 weeks, No New Medical Problems, No Changes in Medication and No Patient answered all questions Section B - Complete if H&P > 30 days Chief Complaint: Neuromuscular dysfunction of bladder, unspecified Relevant Family History (Specify if Yes): No Relevant Social History: None Present Medications: see Short Stay Collaborative assessment Medical History: Significant History History of Previous Operations: Relevant previous surgery/procedure and date(s) Allergies: Allergies Allergy/AdvReac Type Severity Reaction Status Date / Time mercury (elemental) Allergy Severe Anaphylaxis Verified 11/19/23 13:58 Penicillins Allergy Severe Hives Verified 11/19/23 13:58 bupropion [From Wellbutrin] Allergy Intermediate Hives Verified 11/19/23 13:58 Iodinated Contrast Media Allergy Intermediate Hives Verified 11/19/23 13:58 [IV Contrast Dye] morphine Allergy Intermediate Hives Verified 11/19/23 13:58 metoclopramide [From Reglan] AdvReac Intermediate Parkinson Verified 11/19/23 13:58 syndrome Review of Systems Sugical H&P ROS: Negative: Constitution, Cardiovascular, Respiratory, Neurological, Psychiatric, Hem-Onc, Allergic/Immunologic, Gastrointestinal, Genitourinary, Musculoskeletal, Integumentary, Endocrine and Eyes/ Ears/Nose/Throat Exam Surgical H&P Exam: Normal: HEENT, Normal: Heart, Normal: Lungs, Normal: Extremities, Normal: Abdomen, Normal: Skin and Normal: Neurological Plan Diagnosis/Plan: Unchanged (Cystoscopy with Botox) I have reviewed the history and physical and performed a pertinent physical examination on my patient. No changes have occurred unless specified. Time Spent With Patient Time: Total time managing care of this patient today ____ minutes.
--- NOTE | 2023-11-19 14:48 | PC.NURSE ---
Patient has one ring on left hand that is unable to be removed. Dr. Lala at bedside and made aware. Okay to proceed with ring on per him. [facility] OR nurse aware.
[2023-11-19 15:38] VITALS: BP 141/86; PULSE 84; RESP 18; TEMP 36.8; O2SAT 96
--- NOTE | 2023-11-19 15:38 | P.OP_ITS ---
Operative Note Operative Note Date of Service: 11/19/23 Narrative: PreOperative Diagnosis: Multiple sclerosis with neurogenic bladder Post Operative Diagnosis: Multiple sclerosis with neurogenic bladder Procedure: Cystoscopy with injection 200 units Botox intra detrusor muscle Surgeon: Dr Gage Bass Anesthesia: Sedation Indications for procedure: 68-year-old female with longstanding multiple sclerosis. Catheter dependent. Small bladder. Recurrent UTIs. Mucosa in bladder.. For cystoscopy and Botox injection. Is aware of the risks and benefits particularly related to urinary retention and possible infection. Procedure: After informed consent was verified the patient was brought to the operating room and placed in a supine position. Anesthesia was administered per protocol. Cystoscopy performed with 22 Georgian cystoscope. Bladder was emptied of urine. Bladder was refilled. Pictures taken of bladder mucosa. Area on right hand wall that appears to be quite irritated and producing mucus that is likely been in the urine. Otherwise bladder mucosa relatively intact. Using 200 units of Botox mixed in 10 cc of normal saline injections were placed at the back wall of the bladder. 0.5cc placed at each injection site. Injections were placed in a grid 5 across and for high. Injections were placed from the inferior to superior position. Trabeculations on the bladder wall with targeted for each injection site. Special double balloon catheter placed in bladder completion of procedure. Procedure was tolerated well. Patient was transferred in stable condition to the recovery area. Pathology: None Drains: Double balloon catheter
[2023-11-19 15:53] VITALS: BP 137/57; BP 143/76; PULSE 81; PULSE 82; RESP 18; O2SAT 98; O2SAT 99
[2023-11-19 16:07] VITALS: BP 138/76; PULSE 76; RESP 14; TEMP 36.1; O2SAT 99
== END 2023-11-19 16:33 | disposition home or self-care (01) ==
PROVIDERS: PCP Family Medicine; Visit Provider Urology
PROC: 0TJB8ZZ Inspection of Bladder, Via Natural or Artificial Opening Endoscopic (ICD-10-PCS; CPT 52000; principal; 2023-11-19 15:10)
DX: N31.9 Neuromuscular dysfunction of bladder, unspecified (principal); G35 Multiple sclerosis; N39.0 Urinary tract infection, site not specified; G20.A1 Parkinson's disease without dyskinesia, without mention of fluctuations; I10 Essential (primary) hypertension; Z99.3 Dependence on wheelchair; F64.9 Gender identity disorder, unspecified; G47.33 Obstructive sleep apnea (adult) (pediatric); Z86.73 Personal history of transient ischemic attack (TIA), and cerebral infarction without residual deficits; Z86.711 Personal history of pulmonary embolism; Z79.01 Long term (current) use of anticoagulants; Z79.899 Other long term (current) drug therapy; Z88.0 Allergy status to penicillin; Z91.041 Radiographic dye allergy status; Z88.8 Allergy status to other drugs, medicaments and biological substances; Z88.5 Allergy status to narcotic agent; Z98.890 Other specified postprocedural states
CPT/HCPCS: 52287; J0585; J1956; J2704

== ENCOUNTER → 2023-11-19 12:01 | Outpatient (BNV) | payer MEDICARE, MEDICAID, SELFPAY | PROVIDERS: PCP Family Medicine; Visit Provider Urology | DX: N31.9 Neuromuscular dysfunction of bladder, unspecified (principal) | CPT/HCPCS: 52287 ==

== ENCOUNTER 2023-12-06 10:33 | Outpatient (AMB) | payer MEDICARE, MEDICAID, SELFPAY ==
--- NOTE | 2023-12-06 10:34 | A.OFFVIS_ITS ---
Intake Visit Reasons: Botox follow up Allergies mercury (elemental) Allergy (Severe, Verified 11/19/23 13:58) Anaphylaxis Penicillins Allergy (Severe, Verified 11/19/23 13:58) Hives bupropion [From Wellbutrin] Allergy (Intermediate, Verified 11/19/23 13:58) Hives Iodinated Contrast Media [IV Contrast Dye] Allergy (Intermediate, Verified 11/19/23 13:58) Hives morphine Allergy (Intermediate, Verified 11/19/23 13:58) Hives metoclopramide [From Reglan] Adverse Reaction (Intermediate, Verified 11/19/23 13:58) Parkinson syndrome Medication List - Last Reconciled 12/06/23 by Gage Bsas MD acetaminophen 1,000 mg PO BID ascorbic acid (vitamin C) (Vitamin C) 1,000 mg PO BID 90 days cefuroxime axetil 250 mg PO BID 7 days cholecalciferol (vitamin D3) 1 cap PO DAILY docusate sodium 100 mg PO DAILY estradiol 0.01%(0.1mg/gram) pea-sized to urethra 3x a week; 30 days fosfomycin tromethamine 1 packet PO Q OTHER DAY 2 doses furosemide 40 mg PO DAILY gabapentin 300 mg PO TID levothyroxine 88 mcg PO DAILY lisinopril 5 mg PO DAILY modafinil (Provigil) 200 mg PO BID nitrofurantoin monohyd/m-cryst 100 mg (Macrobid) 100 mg PO BID 10 days rivaroxaban 20 mg PO DAILY HPI Comments Details: Michelle is a pleasant female. She is a patient of Dr. Jean Baptiste. She is seen for following urologic conditions - multiple sclerosis - botox with indwelling catheter - neurogenic bladder - recurring UTIs Telemedicine evaluation 15 minute consultation [employer] uday Video attempted Botox performed Encouraged to continue using estradiol Stabilizing bladder Continue to flush once a day Prescription provided for antibiotics take before and after catheter change Switched to [employer] [facility] - uses Duette catheter 18 Croatian every 3 weeks - which appears to protect bladder - uses irrigation every other day ID Physician - [facility] Dr Kary Johnson - Neurogenic Bladder: Recurring urinary tract infection, bladder spasm Previously had Pseudomonas infection responsive to ciprofloxacin UTI appears to be decreasing with combination of Estrace, bladder irrigation - gram positive cocci Urinary retention initially found longstanding history. Diagnosed with multiple sclerosis approximately 15 years ago. Had been followed by Dr. Avina for many years Initially managed with clean intermittent catheterization Subsequently managed with indwelling Tran catheter Had been discussion of suprapubic tube placement however VNA nurses prevent this recurring uti 05/[address] Spencer and cystoscopy with removal of bladder stones - 12/01 cystoscopy Botox biopsy performed with chronic cystitis Botox Initial 03/01, 07/02, 10/31, 08/02, 05/04 200 units, 11/03 200 units Urine cultures - Pseudomonas fluoroquinolone resistant, citrobacter amp/cefa zolin resistant Can only tolerate short course of fluroquinolones Has standing order for urine culture collection through [facility] Previously used fosfomycin for catheter changes [facility] Medical History (Updated 11/15/23 @ 10:16 by Laura Godfrey RN) Recurrent UTI (urinary tract infection) Sacral decubitus ulcer Pulmonary emboli Cardiac arrest History of trigeminal neuralgia COVID-19 vaccine series completed Osteoporosis Neurogenic urinary bladder disorder NENO (obstructive sleep apnea) Parkinson's variant of multiple system atrophy Thyroid disease History of neurogenic bladder History of MRSA infection Hx of lymphoma Arthritis Back pain Hx pulmonary embolism DVT (deep venous thrombosis) Anemia Hiatal hernia Tran catheter in place Bladder stones Multiple sclerosis CVA (cerebral vascular accident) Myocardial infarction HTN (hypertension) Painful bladder spasm Surgical History Hx of hysterectomy Hx of lumpectomy Hx of vitrectomy History of intraocular lens implant Hx of adenoidectomy Hx of tonsillectomy Hx of laminectomy History of cystoscopy History of biopsy of bladder History of bladder surgery H/O colonoscopy Social History Household Members: None Housing: Apartment Are you a primary home care nurse to a significant other at home: No Do you presently have visiting nurse or other home services: Yes ([employer]) Patient Tobacco Use Status: Never used Tobacco Second Hand Smoke Exposure: No Advance Directives Date on File: 07/05/20 service: No Current occupational status: disabled Review of Systems Const All systems reviewed & are unremarkable except as noted in HPI and below Reports no additional complaints Resp Reports no additional complaints GI Reports no additional complaints Reports as per HPI Musc Reports no additional complaints Physical Exam Telemedicine evaluation Appropriate responses Regular breathing rate and rhythm HEENT Head: Yes normal to inspection Ears: hearing grossly normal bilaterally Eyes General: appearance normal, both eyes and all related structures Neck Neck: Yes normal visual inspection Chest Chest palpation & inspection: normal inspection of the chest Resp Effort & Inspection: normal respiratory effort and able to speak in complete sentences Telehealth Telehealth Location of provider rendering services: practice address Location of patient: address on file Patient Identification confirmed using: Name, : Yes Telehealth method: video Patient verbally consented to treatment: Yes Patient verbally consented to billing insurance company: Yes Patient informed of any privacy concerns related to visit: Yes Assessment & Plan Assessment & Plan (1) Urinary tract infection: Code(s): N39.0 - Urinary tract infection, site not specified Category: Medical Plan Six-month follow-up Medications: Changed From nitrofurantoin monohyd/m-cryst 100 mg (Macrobid) must administer with a meal/food 100 mg PO BID 10 days 20 caps 0RF N39.0 - Urinary tract infection, site not specified To nitrofurantoin monohyd/m-cryst 100 mg (Macrobid) to be taken morning and evening of catheter change 100 mg PO BID 20 caps 0RF 10 days N39.0 - Urinary tract infection, site not specified Patient Instructions: Imaging studies, laboratory and physical exam results were discussed and reviewed in detail. No major barriers to patient understanding were identified. An opportunity to ask questions regarding the treatment plan was provided. All questions were answered. The patient expressed understanding and agreement with the above treatment plan. The patient is aware they should contact our office by phone for worsening of their current condition or the appearance of new urologic symptoms. Compliance is encouraged with any medications and followup testing that is ordered. It is a privilege to participate in the urologic care of your patient. If you have any questions or concerns regarding treatment for the above conditions, or other urologic issues, please do not hesitate to contact me. The office telephone contact is [phone]. This note is constructed using voice recognition software. While every effort has been made to ensure accuracy airline counter agent errors may have been included. Yours sincerely, Dr Gage Bass MD, [facility] - Urology Providers of Expert, Compassionate Care for the Genitourinary System Coding Level of Care Code Tele Est Pt Level 3 (55186) Complex EM visit Add On G2211 Diagnoses Urinary tract infection N39.0
== END 2023-12-06 11:03 | disposition home or self-care (01) ==
LOC: HO.HUSH 10:33
PROVIDERS: PCP Family Medicine; Visit Provider Urology
DX: N39.0 Urinary tract infection, site not specified (principal)
CPT/HCPCS: 99213; G2211

== ENCOUNTER → 2023-12-06 10:33 | Outpatient (BNVA) | payer MEDICARE, MEDICAID, SELFPAY | PROVIDERS: PCP Family Medicine; Visit Provider Urology ==

== ENCOUNTER 2024-03-17 13:22 | Day surgery (SDC) | payer MEDICARE, MEDICAID, SELFPAY ==
--- NOTE | 2024-03-14 12:45 | HO.ANESPROP2 ---
HPI - Anesthesia Eval Consult details Narrative: 69yo F for Cystoscopy stent removal Retrograde, semi rigid Uroscopy [facility] admit 02/19 - 02/28/24 with sepsis, pyelonephritis, obstructive UVJ stone s/p Cysto 11/2023 with [facility] at [facility] [place]; Urgent cysto, stent at [facility] during above admit Xarelto for chronic saddle PE's/DVT Wheelchair bound - MS/parkinsons PMFSH Active Problems Active Problems: All Active Problems Urinary tract infection (Acute) Past Medical History Medical History Wheelchair dependence Recurrent UTI (urinary tract infection) Sacral decubitus ulcer Pulmonary emboli Cardiac arrest History of trigeminal neuralgia COVID-19 vaccine series completed Osteoporosis Neurogenic urinary bladder disorder NENO (obstructive sleep apnea) Parkinson's variant of multiple system atrophy Thyroid disease History of neurogenic bladder History of MRSA infection Hx of lymphoma Arthritis Back pain Hx pulmonary embolism DVT (deep venous thrombosis) Anemia Hiatal hernia Tran catheter in place Bladder stones Multiple sclerosis CVA (cerebral vascular accident) Myocardial infarction HTN (hypertension) Painful bladder spasm Family History Family history of problems with anesthesia: No Surgical History Surgical History Hx of hysterectomy Hx of lumpectomy Hx of vitrectomy History of intraocular lens implant Hx of adenoidectomy Hx of tonsillectomy Hx of laminectomy History of cystoscopy History of biopsy of bladder History of bladder surgery H/O colonoscopy History of Problems with Anesthesia: No Social History Social History Household Members: None Housing: Apartment Are you a primary caregivers homecare to a significant other at home: No Do you presently have visiting nurse or other home services: Yes Patient Tobacco Use Status: Never used Tobacco Second Hand Smoke Exposure: No Advance Directives Date on File: 07/05/20 service: No Current occupational status: disabled Meds Allergies Allergy/AdvReac Type Severity Reaction Status Date / Time mercury (elemental) Allergy Severe Anaphylaxis Verified 03/18/24 12:09 Penicillins Allergy Severe Hives Verified 03/18/24 12:09 bupropion [From Wellbutrin] Allergy Intermediate Hives Verified 03/18/24 12:09 Iodinated Contrast Media Allergy Intermediate Hives Verified 03/18/24 12:09 [IV Contrast Dye] morphine Allergy Intermediate Hives Verified 03/18/24 12:09 metoclopramide [From Reglan] AdvReac Intermediate Parkinson Verified 03/18/24 12:09 syndrome Home Medications ?Medication ?Instructions ?Recorded ?Confirmed ?Last Taken ?Type acetaminophen 500 mg capsule 500 mg PO QID 06/18/20 03/18/24 03/18/24 History furosemide 40 mg tablet 40 mg PO DAILY 06/18/20 03/18/24 03/18/24 History levothyroxine 88 mcg tablet 88 mcg PO DAILY@0600 06/18/20 03/18/24 03/18/24 History lisinopril 5 mg tablet 5 mg PO DAILY 06/18/20 03/18/24 03/18/24 History cholecalciferol (vitamin D3) 50 1 cap PO DAILY 02/13/22 03/18/24 03/18/24 History mcg (2,000 unit) capsule docusate sodium 100 mg capsule 100 mg PO BEDTIME PRN Constipation 11/14/22 03/18/24 Unknown History gabapentin 300 mg capsule 300 mg PO TID 07/12/23 03/18/24 03/18/24 History modafinil 200 mg tablet (Provigil) 200 mg PO BID 07/12/23 03/18/24 03/18/24 History baclofen 20 mg tablet 20 mg PO TID 03/18/24 03/18/24 03/18/24 History metronidazole 0.75 % topical cream 1 appl topical BID 03/18/24 03/18/24 03/18/24 History [id number] 1 tab PO DAILY 03/18/24 03/18/24 03/18/24 History tablet (Multivitamin 50 Plus tablet) rivaroxaban 10 mg tablet (Xarelto) 10 mg PO DAILY 03/18/24 03/18/24 03/18/24 History silver sulfadiazine 1 % topical 1 appl topical DAILY 03/18/24 03/18/24 03/18/24 History cream Assessment and Plan Assessment Anesthesia Assessment: Chart Reviewed Final Anesthetic Review Family History of Problems with Anesthesia: No History of Problems with Anesthesia: No
--- NOTE | ~2024-03-17 | FL_ITS ---
EXAMINATION: XR FLUOROSCOPY WITH IMAGES CLINICAL INFORMATION: Retrograde cystoscopy and left stent removal. COMPARISON: None available. TECHNIQUE: Fluoroscopy provided to: Dr. Bass Fluoroscopy time: 12.9 seconds DAP: 1.2548 Gycm2 Images: 2 FINDINGS: 2 coned down fluoroscopic spot images during retrograde stent removal left ureter. FL/FL guidance in OR IMPRESSION: Fluoroscopic guidance. Please refer to the full operative report for details. Electronically signed by: James Matias MD 05/08/2024 04:00 PM EDT
--- OUTSIDE RECORDS SUMMARY | 2024-03-17 13:25 | XMS_ITS | Continuity of Care Document ---
Author Organization [facility] Address [address] [place] [address]- Care Team Providers Care Oceanologist Name Role Phone Juan Manuel LIM, Kristen Acosta Primary Care Physic juan alberto Encounter [facility] Date(s): 02/27/22 - 03/29/22 [facility] [address] [place] [address]- Allergies, Adverse Reactions, Alerts Substance Reaction Severity Status morphine hives, SOB Active Wellbutrin rash Active contrast media (iodine-based) itching throughout body Active Other Environmental Allergy mercury-fillings Active penicillins hive Active Reglan Active cannabis (Schedule I substance) itching/vomiting Active Immunizations Given and Recorded Vaccine Date Status Refusal Reason SARS-CoV-2 mRNA ([id number]) vax 10/04/21 Recorded influenza virus vaccine, inactivated 04/10/21 Arnoldo rded influenza virus vaccine, inactivated 04/03/20 Arnoldo rded influenza virus vaccine, inactivated 05/13/19 Arnoldo rded influenza virus vaccine, inactivated 04/16/18 Arnoldo rded influenza virus vaccine, inactivated 05/07/17 Arnoldo rded influenza virus vaccine, inactivated 04/19/16 Arnoldo rded influenza virus vaccine, inactivated 04/12/15 Arnoldo rded influenza virus vaccine, inactivated 04/01/13 Arnoldo rded influenza virus vaccine, inactivated 04/01/12 Arnoldo rded influenza virus vaccine, inactivated 04/26/09 Arnoldo rded SARS-CoV-2 (COVID-19) mRNA BNT-162b2 vac 03/31/21 Recorded SARS-CoV-2 (COVID-19) mRNA BNT-162b2 vac 10/09/20 Recorded SARS-CoV-2 (COVID-19) mRNA BNT-162b2 vac 09/18/20 Recorded pneumococcal 23-valent vaccine 05/13/20 Recorded pneumococcal 23-valent vaccine 08/13/06 Recorded zoster vaccine, inactivated 06/08/19 Recorded zoster vaccine, inactivated 03/13/19 Recorded hepatitis B adult vaccine 05/31/16 Recorded hepatitis B adult vaccine 05/01/16 Recorded hepatitis B adult vaccine 04/05/16 Recorded pneumococcal 13-valent vaccine 09/24/15 Recorded tetanus/diphtheria/pertussis, acel(Tdap) 09/24/15 Recorded Zoster Vaccine Live 09/12/10 Recorded Zoster Vaccine Live 08/25/10 Recorded Flu Vaccine 04/13/10 Recorded Flu Vaccine 05/20/08 Recorded Flu Vaccine 06/13/05 Recorded tetanus-diphtheria toxoids (Td) 11/02/05 Recorded Medications acetaminophen 500 mg oral capsule 2 capsule = 1,000 mg, By Mouth, 4 times a day, PRN for pain, for 60 days, # 480 capsule, 3 Refills,Acute 04/19/22 17:46:00 EDT, 08/22/21 17:46:00 EST, Capsule, [facility]/pharmacy #[id number], Partial fill upon patient request if the prescription is for a schedul... Start Date: 08/22/21 Stop Date: 04/19/22 Status: Ordered ascorbic acid 1000 mg oral tablet 1 tablet = 1,000 mg, By Mouth, 2 times a day, # 90 tablet, 2 Refills, Maintenance, 02/28/22 8:12:00EDT, Tablet, [facility]/pharmacy #[id number], Partial fill upon patient request if the prescription is for a schedule II opioid drug., 155, cm, 02/23/22 8:04:00 EDT... Start Date: 02/28/22 Status: Ordered baclofen 20 mg oral tablet 20 mg, 1, tablet, By Mouth, 3 times a day, # 270 tablet, Refills 2, Tot. Refills 2, Maintenance, 03/14/22 12:44:00 EDT, Route to Pharmacy Electronically, [facility]/pharmacy #[id number], Partial fill upon patientrequest if the prescription is for a schedule II op... Start Date: 03/14/22 Stop Date: 12/09/22 Status: Ordered bifidobacterium-lactobacillus oral tablet 2 tablet, By Mouth, 2 times a day, [facility] Brand please ([facility]), # 360 tablet, 3 Refills, Maintenance, 08/11/21 17:02:00 EST, [id number] upon patient request if the prescription is for a schedule II opioid drug., 2... Start Date: 08/11/21 Stop Date: 08/06/22 Status: Ordered calcium carbonate 600 mg oral tablet 1 tablet = 600 mg, By Mouth, 2 times a day, # 180 tablet, 2 Refills, Maintenance, 01/06/23 14:02:00EDT, Tablet, [facility]/pharmacy #[id number], Partial fill upon patient request if the prescription is for a schedule II opioid drug., 155, cm, 02/23/22 8:04:00 EDT... Start Date: 01/06/23 Stop Date: 10/03/23 Status: Ordered calcium carbonate 600 mg oral tablet 1 tablet = 600 mg, By Mouth, 2 times a day, for 90 days, # 180 tablet, 3 Refills, Hard Stop 01/06/23 14:02:00 EDT, 01/11/22 14:02:00 EDT, Tablet, [facility], Partial fill upon patient request if the prescription is for a schedul... Start Date: 01/11/22 Stop Date: 01/06/23 Status: Ordered Centrum Silver Ultra Women's oral tablet 1 tablet, By Mouth, Daily, 0 Refills, Maintenance, 07/09/18 8:43:55 EST Start Date: 07/09/18 Status: Ordered [facility] SENIOR PROBIOTIC CAPSULE TAKE 2 CAPSULES BY MOUTH TWICE A DAY Start Date: 11/01/21 Status: Ordered diclofenac 1% topical gel 1 application, Topically, 4 times a day, # 100 Gm, 3 Refills, Maintenance, 01/11/22 14:07:00 EDT, Gel, [facility], Partial fill upon patient request if the prescription is for a schedule II opioid drug., 155, cm, 01/02/22 8:26:0... Start Date: 01/11/22 Status: Ordered electric virginia lift split leg sling type electric virginia lift split leg sling type, See Instructions, # 1 each, Refills 0, Tot. Refills 0, Maintenance, Pt height 153cm Pt weight 82kg needs for toileting hygeine, 05/27/21 15:48:00 EDT, Pt height 153cm; Pt weight 82kg; needs for toileting hyg... Start Date: 05/27/21 Status: Ordered Enemeez Mini 283 mg rectal enema See Instructions, USE RECTALLY EVERY DAY NEEDED FOR CONSTIPATION, # 450 mL, 5 Refills, 03/02/22 8:08:00 EDT, [facility]/pharmacy #[id number], 155, cm, 02/23/22 8:04:00 EDT, Height, 93.4, kg, 11/01/21 16:52:00 EDT, Dry Weight Start Date: 03/02/22 Status: Ordered estradiol 0.1 mg/g vaginal cream 0 Refills, Maintenance, 11/01/21 4:26:00 EDT, Partial fill upon patient request if the prescriptionis for a schedule II opioid drug. Start Date: 11/01/21 Status: Ordered Fully powered virginia lift with split leg sling type Fully powered virginia lift with split leg sling type, See Instructions, # 1 each, Refills 0, Tot. Refills 0, Maintenance, dx: Multiple sclerosis; Paraplegia, Neurogenic bladder; Morbid obesity, 07/29/21 3:07:00 EST, Supply Start Date: 07/29/21 Status: Ordered furosemide 40 mg oral tablet 40 mg, 1, tablet, By Mouth, Daily, # 90 tablet, Refills 3, Tot. Refills 3, Maintenance, 01/02/22 9:03:00 EDT, Route to Pharmacy Electronically, [facility], Partial fill upon patient request if the prescription is for a schedule... Start Date: 01/02/22 Status: Ordered furosemide 40 mg oral tablet 40 mg, 1, tablet, By Mouth, 2 times a day, Take as needed for acute episodes of lower extremity edema for 2 days at a time., # 60 tablet, Refills 0, Tot. Refills 0, Maintenance, 01/11/22 13:45:00 EDT, Route to Pharmacy Electronically, [facility]... Start Date: 01/11/22 Status: Ordered gabapentin 300 mg oral capsule 300 mg, 1, capsule, By Mouth, 3 times a day, # 90 capsule, Refills 2, Tot. Refills 2, Maintenance, 02/20/22 7:44:00 EDT, Route to Pharmacy Electronically, [facility]/pharmacy #[id number], Partial fill upon patient request if the prescription is for a schedule II o... Start Date: 02/20/22 Stop Date: 05/21/22 Status: Ordered Juzo Compression Hose Juzo Compression Hose, See Instructions, # 2 each, Refills 2, Tot. Refills 2, Maintenance, 20-30mmghg FF Petite (short),[id number], soft knee, black silicone Stock code [id number] Part #[id number], Size III. [facility] [id number], 12/07/21 11:32:00 EDT,... Start Date: 12/07/21 Status: Ordered levothyroxine 0.088 mg oral tablet 1 tablet = 88 mcg, By Mouth, Daily, # 90 tablet, 1 Refills, Maintenance, 03/25/22 11:42:00 EDT, Tablet, [facility]/pharmacy #[id number], Partial fill upon patient request if the prescription is for a schedule II opioid drug., 155, cm, 03/14/22 11:11:00 EDT, Height... Start Date: 03/25/22 Status: Ordered lisinopril 5 mg oral tablet 5 mg, 1, tablet, By Mouth, Daily, # 90 tablet, Refills 3, Tot. Refills 3, Maintenance, 02/24/22 15:53:00 EDT, Route to Pharmacy Electronically, [facility]/pharmacy #[id number], Partial fill upon patient request if the prescription is for a schedule II opioid drug.... Start Date: 02/24/22 Status: Ordered Potassium Chloride (Eqv-K-Tab) 20 mEq oral tablet, extended release 1 tablet = 20 mEq, By Mouth, Daily, for low potassium, # 10 tablet, 0 Refills, Maintenance, 03/02/22 19:14:00 EDT, [facility]/pharmacy #[id number], Partial fill upon patient request if the prescription is for a schedule II opioid drug., 155, cm, 02/23/22 8:04:00 E... Start Date: 03/02/22 Stop Date: 03/12/22 Status: Ordered Power [place] Lift with Rye split-leg sling Power [place] Lift with Rye split-leg sling, See Instructions, # 1 each, Refills 0, Tot. Refills 0, Maintenance, Dx: Multiple Sclerosis induced Paraplegia Length of time needed: indefinite Purpose: Transfer to/fr hosp bed to wheelchair, commode,... Start Date: 08/16/21 Status: Ordered Provigil 200 mg oral tablet 1 tablet = 200 mg, By Mouth, 2 times a day, takes in am and lunchtime brand name only - dispense aswritten, # 56 tablet, 3 Refills, Maintenance, 02/28/22 8:12:00 EDT, Tablet, [facility]/pharmacy #[id number], Partial fill upon patient request if the prescription... Start Date: 02/28/22 Stop Date: 06/20/22 Status: Ordered RIGHT RESTING HAND SPLINT RIGHT RESTING HAND SPLINT, See Instructions, # 1 each, Refills 0, Tot. Refills 0, Maintenance, DX: FLEXION CONTRACTURE OF FINGERS D/T MS, 01/27/22 9:15:00 EDT, Supply Start Date: 01/27/22 Status: Ordered Turmeric = 750 mg, By Mouth, 2 times a day, 0 Refills, Maintenance, 07/09/18 8:47:35 EST Start Date: 07/09/18 Status: Ordered Vitamin D3 2000 intl units oral capsule 1 capsule, By Mouth, Daily, # 90 capsule, 2 Refills, 02/28/22 8:13:00 EDT, [facility]/pharmacy #[id number], 155,cm, 02/23/22 8:04:00 EDT, Height, 93.4, kg, 11/01/21 16:52:00 EDT, Dry Weight Start Date: 02/28/22 Status: Ordered Xarelto 20 mg oral tablet 1 tablet = 20 mg, By Mouth, Daily at supper, # 90 tablet, 3 Refills, Maintenance, 02/01/22 12:42:00EDT, Tablet, [facility], Partial fill upon patient request if the prescription is for a schedule II opioid drug., 155, cm, 01/02... Start Date: 02/01/22 Status: Ordered Xarelto 20 mg oral tablet 1 tablet = 20 mg, By Mouth, Daily before dinner, 0 Refills, Maintenance, 04/07/20 13:38:00 EDT Start Date: 04/07/20 Status: Ordered Problem List Condition Effective Dates Status Health Status Inform ant Idiopathic intracranial hypertension(Confirmed) Active Bilateral leg edema(Confirmed) Active Chronic saddle pulmonary embolism(Confirmed) Active Constipation(Confirmed) Active Excessive daytime sleepiness(Confirmed) Active DVT (deep venous thrombosis)(Confirmed) Active H/O: stroke(Confirmed) Active H/O osteopenia(Confirmed) Active Hypertension(Confirmed) Active Hypothyroidism(Confirmed) Active MS (multiple sclerosis)(Confirmed) Active Multiple sclerosis(Confirmed) Active Muscle weakness(Confirmed) Active Neurogenic bladder(Confirmed) Active Obese class II(Confirmed) Active Paraplegia(Confirmed) Active Pulmonary embolism(Confirmed) Active Bladder spasm(Confirmed) Active Spasticity(Confirmed) Active Social History Social History Type Response Smoking Status Never (less than 100 in lifetime) entered on: 10/31/21 Sex
--- OUTSIDE RECORDS SUMMARY | 2024-03-17 13:25 | XMS_ITS | Continuity of Care Document ---
Author Organization [facility] Address [address] [facility] [address] [place] [address]- Care Team Providers Care Traffic Routing Engineer Name Role Phone Juan Manuel LIM, Kristen Acosta Primary Care Physic juan alberto [place] [facility] [place]): [place]19/22 [facility] [address] [place] [address] [address] [place] [address]- Attending Physician: Win Holden MD Referring Physician: Juan Manuel LIM, Kristen Acosta Allergies, Adverse Reactions, Alerts Substance Reaction Severity Status morphine hives, SOB Active penicillins hive Active Wellbutrin rash Active Reglan Active cannabis (Schedule I substance) itching/vomiting Active Other Environmental Allergy mercury-fillings Active contrast media (iodine-based) itching throughout body Active Immunizations Given and Recorded Vaccine Date Status Refusal Reason pneumococcal 20-valent conjugate vaccine 05/30/22 Recorded [id number] 12y+ bivalent booster vax 05/12/22 Recorded influenza virus vaccine, inactivated 03/29/22 Arnoldo rded influenza virus vaccine, inactivated 04/10/21 Arnoldo rded [...] virus vaccine, inactivated 04/26/09 Arnoldo rded SARS-CoV-2 mRNA ([id number]-[id number]-hfwqh) vax 03/10/22 Recorded SARS-CoV-2 mRNA (scyqkfp-anth-mezem) vax 10/04/21 Recorded SARS-CoV-2 (COVID-19) mRNA BNT-162b2 vac 03/31/21 Recorded [...] Recorded tetanus-diphtheria toxoids (Td) 11/02/05 Recorded Medications ascorbic acid 1000 mg oral tablet 1 tablet = 1,000 mg, By Mouth, 2 times a day, # 90 tablet, 2 Refills, Maintenance, 02/28/22 8:12:00EDT, Tablet, [facility]/pharmacy #[id number], Partial fill upon patient request if the prescription is for a schedule II opioid drug., 155, cm, 02/23/22 8:04:00 EDT... Start Date: 02/28/22 Status: Ordered baclofen 20 mg oral tablet 20 mg, 1, tablet, By Mouth, 3 times a day, # 270 tablet, Refills 2, Tot. Refills 2, Maintenance, 12/09/22 12:44:00 EDT, Route to Pharmacy Electronically, [facility], Partial fill upon patient request if the prescription is for a... Start Date: 12/09/22 Stop Date: 09/05/23 Status: Ordered baclofen 20 mg oral tablet 20 mg, 1, tablet, By Mouth, 3 times a day, for 90 days, # 270 tablet, Refills 2, Tot. Refills 2, Hard Stop 12/09/22 12:44:00 EDT, 03/14/22 12:44:00 EDT, [id number] Partial fill upon patient request if the pre... Start Date: 03/14/22 Stop Date: 12/09/22 Status: Ordered bifidobacterium-lactobacillus oral tablet 2 tablet, By Mouth, 2 times a day, [facility] Brand please (Senior Wellness), # 360 tablet, 3 Refills, Maintenance, 08/11/21 17:02:00 EST, Tablet, [facility]/pharmacy #[id number], Partial fill upon patient request if the prescription is for a schedule II opioid drug., 2... Start Date: 08/11/21 Stop Date: 08/06/22 Status: Ordered calcium carbonate 600 mg oral tablet 1 tablet = 600 mg, By Mouth, 2 times a day, # 180 tablet, 2 Refills, Maintenance, 01/06/23 14:02:00EDT, Tablet, [facility]/pharmacy #[id number], Partial fill upon patient request if the prescription is for a schedule II opioid drug., 155, cm, 02/23/22 8:04:00 EDT... Start Date: 01/06/23 Stop Date: 10/03/23 Status: Ordered calcium carbonate 600 mg oral tablet 1 tablet = 600 mg, By Mouth, 2 times a day, for 90 days, # 180 tablet, 3 Refills, Hard Stop 01/06/23 14:02:00 EDT, 01/11/22 14:02:00 EDT, Tablet, [facility], Partial fill upon patient request if the prescription is for a schedul... Start Date: 01/11/22 Stop Date: 01/06/23 Status: Ordered Centrum Silver Ultra Women's oral tablet 1 tablet, By Mouth, Daily, 0 Refills, Maintenance, 07/09/18 8:43:55 EST Start Date: 07/09/18 Status: Ordered clotrimazole 1% topical cream 1 application, Topically, 2 times a day, for 30 days, # 100 Gm, 1 Refills, Acute 07/25/22 8:59:00 EST, 05/26/22 8:59:00 EDT, Cream, [facility]/pharmacy #[id number], Partial fill upon patient request if the prescription is for a schedule II opioid drug., 1 applicat... Start Date: 05/26/22 Stop Date: 07/25/22 Status: Ordered [facility] SENIOR PROBIOTIC CAPSULE TAKE 2 CAPSULES BY MOUTH TWICE A DAY Start Date: 11/01/21 Status: Ordered diclofenac 1% topical gel 1 application, Topically, 4 times a day, Apply 4 gram QID prn to affected pain to dropped foot - not to exceed 16 grams/day/single joint of lower extremities, # 100 Gm, 3 Refills, Maintenance, 04/02/22 21:13:00 EDT, Gel, [facility] Start Date: 04/02/22 Status: Ordered electric virginia lift split leg [...] 450 mL, 5 Refills, 03/02/22 8:08:00 EDT, [facility]/pharmacy #[id number], 155, cm, 02/23/22 8:04:00 EDT, Height, 93.4, kg, 11/01/21 16:52:00 EDT, Dry Weight Start Date: 03/02/22 Status: Ordered estradiol 0.1 mg/g vaginal cream 0 Refills, Maintenance, 11/01/21 4:26:00 EDT, Partial fill upon patient request if the prescriptionis for a schedule II opioid drug. Start Date: 11/01/21 Status: Ordered fluconazole 150 mg oral tablet 1 tablet = 150 mg, By Mouth, Every week, # 4 tablet, 1 Refills, Soft Stop, 05/26/22 8:59:00 EDT, Tablet, [facility]/pharmacy #[id number], Partial fill upon patient request if the prescription is for a schedule IIopioid drug., 155, cm, 05/25/22 13:44:00 EDT, Frank... Start Date: 05/26/22 Status: Ordered fosfomycin 3 g oral granule for reconstitution 1 each = 3 Gm, By Mouth, Once, 0 Refills, Maintenance, 05/25/22 13:51:00 EDT, Partial fill upon patient request if the prescription is for a schedule II opioid drug. Start Date: 05/25/22 Status: Ordered Fully powered virginia lift with [...] 01/02/22 9:03:00 EDT, Route to Pharmacy Electronically, [facility], Partial fill upon patient request if [...] 01/11/22 13:45:00 EDT, [facility] Start Date: 01/11/22 Status: Ordered gabapentin 300 mg oral capsule 300 mg, 1, capsule, By Mouth, 3 times a day, # 270 capsule, Refills 2, Tot. Refills 2, Maintenance,05/21/22 7:44:00 EDT, Route to Pharmacy Electronically, [facility], Partial fill upon patient request if the prescription is for... Start Date: 05/21/22 Stop Date: 02/15/23 Status: Ordered Juzo Compression Hose Juzo Compression Hose, See Instructions, # 2 each, Refills 2, Tot. Refills 2, Maintenance, 20-30mmghg FF Petite (short),[id number], soft knee, black silicone Stock code [id number] Part #[id number], Size III. [facility] [id number], 12/07/21 11:32:00 EDT,... Start Date: 12/07/21 Status: Ordered levothyroxine 0.088 mg oral tablet 1 tablet = 88 mcg, By Mouth, Daily, # 90 tablet, 3 Refills, Maintenance, 03/31/22 13:45:00 EDT, Tablet, [facility], Partial fill upon patient request if the prescription is fora schedule II opioid drug., 155, cm, 03/14/22 11:11... Start Date: 03/31/22 Status: Ordered lisinopril 5 mg oral tablet 5 mg, 1, tablet, By Mouth, Daily, # 90 tablet, Refills 3, Tot. Refills 3, Maintenance, 02/24/22 15:53:00 EDT, Route to Pharmacy Electronically, [facility]/pharmacy #[id number], Partial fill upon patient request if the prescription is for a schedule II opioid drug.... Start Date: 02/24/22 Status: Ordered Mapap 500 mg oral capsule See Instructions, TAKE 2 CAPSULES BY MOUTH 4 TIMES A DAY NEEDED FOR PAIN, # 480 capsule, 3 Refills, Maintenance, 06/04/22 16:03:00 EDT, [id number], 155, cm, 05/25/22 13:44:00 EDT, Height, 93.4, kg, 11/01/21 16:52:00 EDT, Dry Weight Start Date: 06/04/22 Status: Ordered Potassium Chloride (Eqv-K-Tab) 20 mEq oral tablet, extended release 1 tablet = 20 mEq, By Mouth, Daily, for low potassium, # 10 tablet, 0 Refills, Maintenance, 03/02/22 19:14:00 EDT, [facility]/pharmacy #[id number], Partial fill upon patient request if the prescription is for a schedule II opioid drug., 155, cm, 02/23/22 8:04:00 E... Start Date: 03/02/22 Stop Date: 03/12/22 Status: Ordered Power Virginia Lift with [place] split-leg sling Power Virginia Lift with [place] split-leg sling, See Instructions, # 1 each, [...] aswritten, # 56 tablet, 3 Refills, Maintenance, 07/12/22 17:46:00 EST, Tablet[id number] Partial fill upon patient request if the prescription... Start Date: 07/12/22 Stop Date: 11/01/22 Status: Ordered Provigil 200 mg oral tablet 1 tablet = 200 mg, By Mouth, 2 times a day, for 28 days, takes in am and lunchtime brand name only - dispense as written, # 56 tablet, 3 Refills, Hard Stop 10/25/22 18:25:00 EDT, 07/05/22 18:25:00 EST, [facility]... Start Date: 07/05/22 Stop Date: 10/25/22 Status: Ordered RIGHT RESTING HAND SPLINT RIGHT [...] 90 capsule, 2 Refills, 02/28/22 8:13:00 EDT, [facility]/pharmacy #[id number], 155,cm, 02/23/22 8:04:00 EDT, Height, 93.4, kg, 11/01/21 16:52:00 EDT, Dry Weight Start Date: 02/28/22 Status: Ordered Xarelto 20 mg oral tablet 1 tablet = 20 mg, By Mouth, Daily at supper, # 90 tablet, 3 Refills, Maintenance, 02/01/22 12:42:00EDT, Tablet, [facility], Partial fill upon patient request if the prescription is for a schedule II opioid drug., 155, cm, 01/02... Start Date: 02/01/22 Status: Ordered Xarelto 20 mg oral tablet 1 tablet = 20 mg, By Mouth, Daily before dinner, 0 Refills, Maintenance, 04/07/20 13:38:00 EDT Start Date: 04/07/20 Status: Ordered Z-flex boot LLE Dx: left foot drop, MS, immobility Z-flex boot LLE Dx: left foot drop, MS, immobility, See Instructions, # 1 each, Refills 1, Tot. Refills 1, Maintenance, wear as directed, 07/12/22 14:38:00 EST, Supply Start Date: 07/12/22 Status: Ordered Problem List Condition Confirmation Course Effective Dates Status H ealth Status Informant Idiopathic intracranial hypertension Confirmed Active Bilateral leg edema Confirmed Active Chronic saddle pulmonary embolism Confirmed Active Constipation Confirmed Active Excessive daytime sleepiness Confirmed Active DVT (deep venous thrombosis) Confirmed Active H/O: stroke Confirmed Active H/O osteopenia Confirmed Active Hiatal hernia without gangrene and obstruction Confirmed Active Hypertension Confirmed Active Hypothyroidism Confirmed Active Multiple sclerosis Confirmed Active Muscle weakness Confirmed Active Neurogenic bladder Confirmed Active Obese class II Confirmed Active Obstructive sleep apnea Confirmed Active Osteoporosis Confirmed Active Leg pain Confirmed Active Paraplegia Confirmed Active Pulmonary embolism Confirmed Active Bladder spasm Confirmed Active Spasticity Confirmed Active Vital Signs Most recent to oldest [Reference Range]: 1 Height 155 cm (07/12/22 2:10 PM) Oxygen Saturation [94-100 %] 99 % (07/12/22 2:10 PM) Pulse Rate [55-90 bpm] 80 bpm (07/12/22 2:10 PM) Blood Pressure [90-138/55-84 mm Hg] 133/ 80mm Hg (07/12/22 2:10 PM) Mode of Delivery (Oxygen) Room air (07/12/22 2:10 PM) Blood pressure sites Arm, left (07/12/22 2:10 PM) Social History Social History Type Response Smoking Status Never (less than 100 in lifetime) entered on: 10/31/21 Sex Patient Care team information Care Team Personnel Name: Juliann Rich RN Position: [facility] RN Member Role: Primary Care Nurse Name: Alejandro CENTENO, Elsa Peterson Position: Reference Physician Member Role: Primary Care Nurse Address: Address: [address] [place] [address] [address] [facility] [place] [address]- [place] Name: Emma Mendoza RN Position: [facility] RN Member Role: Primary Care Nurse Name: Juan Manuel LIM, Kristen Acosta Position: [facility] Primary Care Physician Member Role: PCP Address: Address: [address] [place] [id number]- Name: Jade Medina Position: [facility] RN Member Role: Primary Care Nurse Name: Komla Goodrich Position: [facility] Outreach Member Role: Lifetime Consulting Physician Name: Godfrey Cano Position: [facility] RN Member Role: Primary Care Nurse Name: Anette Miranda RN Position: [facility] Onco RN Member Role: Primary Care Nurse Care Team Related Persons Name: DIOMEDES WARNER Address: home [address] [place] [address] Name: MOO HOWELL Address: home [address] [place] [address] Name: MARLON GENTILE
--- OUTSIDE RECORDS SUMMARY | 2024-03-17 13:25 | XMS_ITS | Continuity of Care Document ---
Author Organization [facility] Address [address] [place] [address]- Care Team Providers Care Disposal Man Name Role Phone Juan Manuel LIM, Kristen Acosta Primary Care Physic juan alberto Encounter [facility] Date(s): 05/16/23 - 06/15/23 [facility] [address] [place] [address]- Allergies, Adverse Reactions, Alerts Substance Reaction Severity Status morphine hives, SOB Active penicillins hive Active Wellbutrin rash Active Reglan Active cannabis (Schedule I substance) itching/vomiting Active Other Environmental Allergy mercury-fillings Active contrast media (iodine-based) itching throughout body Active Immunizations Given and Recorded Vaccine Date Status Refusal Reason pneumococcal 20-valent conjugate vaccine 05/30/22 Recorded [id number] 12y+ bivalent booster vax 05/12/22 Recorded influenza [...] vaccine, inactivated 04/26/09 Arnoldo rded SARS-CoV-2 mRNA ([id number]-lnri-yadbm) vax 03/10/22 Recorded SARS-CoV-2 mRNA ([id number]-pkxx-rjpjl) vax 10/04/21 Recorded SARS-CoV-2 (COVID-19) mRNA BNT-162b2 [...] 2 times a day, # 90 tablet, 1 Refills, Maintenance, 12/11/22 17:34:00 EDT, Tablet, [facility]/pharmacy #[id number], Partial fill upon patient request if the prescription is for a schedule II opioid drug., 155, cm, 10/10/22 13:40:00 E... Start Date: 12/11/22 Status: Ordered baclofen 20 mg oral tablet 20 mg, 1, tablet, By Mouth, 3 times a day, # 270 tablet, Refills 2, Tot. Refills 2, Maintenance, 12/09/22 12:44:00 EDT, Route to Pharmacy Electronically, [facility], Partial fill upon patient request if the prescription is for a... Start Date: 12/09/22 Stop Date: 09/05/23 Status: Ordered bifidobacterium-lactobacillus oral tablet 2 tablet, By Mouth, 2 times a day, [facility] Brand please (Senior Wellness), # 360 tablet, 3 Refills, Maintenance, 08/11/21 17:02:00 EST, Tablet, [facility]/pharmacy #[id number], Partial fill upon patient request if the prescription is for a schedule II opioid drug., 2... Start Date: 08/11/21 Stop Date: 08/06/22 Status: Ordered calcium carbonate 600 mg oral tablet 1 tablet = 600 mg, By Mouth, 2 times a day, # 180 tablet, 2 Refills, Maintenance, 01/06/23 14:02:00EDT, Tablet, [facility]/pharmacy #[id number], Partial fill upon patient request if the prescription is for a schedule II opioid drug., 155, cm, 02/23/22 8:04:00 EDT... Start Date: 01/06/23 Stop Date: 10/03/23 Status: Ordered Centrum Silver Ultra Women's oral tablet 1 tablet, By Mouth, Daily, 0 Refills, Maintenance, 07/09/18 8:43:55 EST Start Date: 07/09/18 Status: Ordered [facility] SENIOR PROBIOTIC CAPSULE TAKE 2 CAPSULES BY MOUTH TWICE A DAY Start Date: 11/01/21 Status: Ordered [facility] Senior Probiotic Capsule [facility] Senior Probiotic Capsule, See Instructions, # 180 each, 5 Refills, Maintenance, TAKE 2 CAPSULESBY MOUTH TWICE A DAY, 07/20/22 9:53:00 EST, 155, cm, 07/12/22 14:10:00 EST, Height, 93.4, kg, 11/01/21 16:52:00 EDT, Dry Weight Start Date: 07/20/22 Status: Ordered electric virginia lift split leg [...] 450 mL, 5 Refills, 03/02/22 8:08:00 EDT, [facility]/pharmacy #[id number], 155, cm, 02/23/22 8:04:00 EDT, Height, 93.4, kg, 11/01/21 16:52:00 EDT, Dry Weight Start Date: 03/02/22 Status: Ordered estradiol 0.1 mg/g vaginal cream 0 Refills, Maintenance, 11/01/21 4:26:00 EDT, Partial fill upon patient request if the prescriptionis for a schedule II opioid drug. Start Date: 11/01/21 Status: Ordered fluconazole 150 mg oral tablet 1 tablet = 150 mg, By Mouth, Once, repeat dose if still having symptoms in 72 hours, # 2 tablet, 0 Refills, Soft Stop, 03/27/23 18:43:00 EDT, Tablet, [facility]/pharmacy #[id number], Partial fill upon patient request if the prescription is for a schedule II opioid... Start Date: 03/27/23 Status: Ordered fluconazole 150 mg oral tablet 1 tablet = 150 mg, By Mouth, Every week, # 4 tablet, 1 Refills, Soft Stop, 05/26/22 8:59:00 EDT, Tablet, [facility]/pharmacy #[id number], Partial fill upon patient request if the prescription is for a schedule IIopioid drug., 155, cm, 05/25/22 13:44:00 EDT, Heigh... Start Date: 05/26/22 Status: Ordered fosfomycin 3 [...] Status: Ordered furosemide 40 mg oral tablet 1, tablet, By Mouth, Daily, # 90 tablet, Refills 1, Maintenance, 01/17/23 19:36:00 EDT, Route to Pharmacy Electronically, [facility], 155, cm, 10/10/22 13:40:00 EST, Height, 93.4,kg, 11/01/21 16:52:00 EDT, Dry Weight Start Date: 01/17/23 Status: Ordered gabapentin 300 mg oral capsule 300 mg, 1, capsule, By Mouth, 3 times a day, # 270 capsule, Refills 2, Tot. Refills 2, Maintenance,02/15/23 7:44:00 EDT, Route to Pharmacy Electronically, [facility], Partial fill upon patient request if the prescription is for... Start Date: 02/15/23 Stop Date: 11/12/23 Status: Ordered Juzo Compression Hose Juzo Compression Hose, See Instructions, # 2 each, Refills 2, Tot. Refills 2, Maintenance, Juzo Compression Hose 2 pairs zzpee-rfl-peva Soft Knee FF Petite 20-30 mmHg Silicone, Black Stock Code [id number] I I I Part #[id number] Size I I I SKU... Start Date: 03/12/23 Status: Ordered levothyroxine 0.088 mg oral tablet 1 tablet = 88 mcg, By Mouth, Daily, # 90 tablet, 3 Refills, Maintenance, 03/15/23 17:17:00 EDT, Tablet, [facility], Partial fill upon patient request if the prescription is fora schedule II opioid drug., 155, cm, 03/15/23 17:11... Start Date: 03/15/23 Status: Ordered lisinopril 5 mg oral tablet 1, tablet, By Mouth, Daily, # 90 tablet, Refills 3, Tot. Refills 3, Maintenance, 03/15/23 17:16:00 EDT, Route to Pharmacy Electronically, [facility], 155, cm, 03/15/23 17:11:00EDT, Height, 93.4, kg, 11/01/21 16:52:00 EDT, Dry W... Start Date: 03/15/23 Status: Ordered Mapap 500 mg oral capsule See Instructions, TAKE 2 CAPSULES BY MOUTH 4 TIMES A DAY NEEDED FOR PAIN, # 480 capsule, 0 Refills, Maintenance, 03/12/23 9:16:00 EDT, [facility]/pharmacy #[id number], 155, cm, 10/10/22 13:40:00 EST, Height, 93.4, kg, 11/01/21 16:52:00 EDT, Dry Weight Start Date: 03/12/23 Status: Ordered Power [place] Lift with [place] split-leg sling Power [place] Lift with [place] split-leg sling, See Instructions, # 1 each, [...] only - dispense aswritten, # 56 tablet, 5 Refills, Maintenance, 12/11/22 17:34:00 EDT, Tablet, [facility]/pharmacy #[id number], Partial fill upon patient request if the prescription... Start Date: 12/11/22 Stop Date: 05/28/23 Status: Ordered Repair for hospital bed Repair for hospital bed, See Instructions, # 1 each, Refills 0, Tot. Refills 0, Maintenance, Dx. Multiple sclerosis G35.9, 09/20/22 9:51:00 EST, Supply Start Date: 09/20/22 Status: Ordered RIGHT RESTING HAND SPLINT RIGHT [...] capsule, By Mouth, Daily, # 90 capsule, 1 Refills, 12/11/22 15:16:00 EDT, [id number], 155, cm, 10/10/22 13:40:00 EST, Height, 93.4, kg, 11/01/21 16:52:00 EDT, Dry Weight Start Date: 12/11/22 Status: Ordered Xarelto 20 mg oral tablet See Instructions, TAKE 1 TABLET DAILY AT SUPPER, # 90 tablet, 3 Refills, Maintenance, 01/17/23 9:37:00 EDT, [facility], 155, cm, 10/10/22 13:40:00 EST, Height, 93.4, kg, 11/01/21 16:52:00 EDT, Dry Weight Start Date: 01/17/23 Status: Ordered Z-flex boot LLE Dx: left [...] sleep apnea Confirmed Active Osteoporosis Confirmed Active Left elbow pain Confirmed Active Leg pain Confirmed Active Paraplegia Confirmed Active Bladder spasm Confirmed Active Spasticity Confirmed Active Vaginal discharge Confirmed Active Vaginal odor Confirmed Active Social History Social History Type Response Smoking Status Never (less than 100 in lifetime) entered on: 10/31/21 Sex Patient Care team information Care Team Personnel Name: Juliann Rich RN Position: [facility] RN Member Role: Primary Care Nurse Name: Elsa Allen NP Position: Reference Physician Member Role: Primary Care Nurse Address: Address: [address] [place] [address] [address] [place] [address]- Name: Emma Mendoza RN Position: [facility] AMB Nurse Member Role: Primary Care Nurse Name: Juan Manuel LIM, Kristen Acosta Position: [facility] Physician - Primary Care Member Role: PCP Address: Address: [address] [address]- Name: Komal Goodrich Position: [facility] Outreach Member Role: Lifetime Consulting Physician Name: Godfrey Cano Position: [facility] RN Member Role: Primary Care Nurse Name: Anette Miranda RN Position: [facility] Onco RN Member Role: Primary Care Nurse Care Team Related Persons Name: DIOMEDES WARNER Address: [address] [place] [address] Name: MOO HOWELL Address: [address] [place] [address] Name: MARLON GENTILE
--- OUTSIDE RECORDS SUMMARY | 2024-03-17 13:25 | XMS_ITS | Continuity of Care Document ---
Author Organization [facility] Address [address] [place] [address]- Care Team Providers Care Staff Development Coordinator Name Role Phone Juan Manuel LIM, Kristen Acosta Primary Care Physic juan alberto Encounter 07/12/21 - 07/19/21 [facility] [address], [address] [place] [address]- Attending Physician: Georgia LIM, Eloina Araujo Admitting Physician: Eloina Ho MD Referring Physician: Georgia LIM, Eloina Araujo Allergies, Adverse Reactions, Alerts Substance Reaction Severity Status morphine hives, SOB Active penicillins hive Active Wellbutrin rash Active Reglan Active cannabis (Schedule I substance) itching/vomiting Active Other Environmental Allergy mercury-fillings Active contrast media (iodine-based) itching throughout body Active Immunizations Given and Recorded Vaccine Date Status Refusal Reason influenza virus vaccine, inactivated 04/10/21 Arnoldo rded [...] times a day, PRN for pain, for 30 days, # 100 capsule, 1 Refills,Acute 08/22/21 17:46:00 EST, 06/23/21 17:46:00 EST, Capsule, [id number], Partial fill upon patient request if the prescription is for a schedul... Start Date: 06/23/21 Stop Date: 08/22/21 Status: Ordered ascorbic acid 1000 mg oral tablet 1 tablet = 1,000 mg, By Mouth, 2 times a day, # 90 tablet, 1 Refills, Maintenance, 06/23/21 17:46:00 EST, Tablet, [id number], Partial fill upon patient request if the prescription is for a schedule II opioid drug., 153, cm, 04/25/21 13:34:00 E... Start Date: 06/23/21 Status: Ordered baclofen 20 mg oral tablet 20 mg, 1, tablet, By Mouth, 3 times a day, # 90 tablet, Refills 0, Maintenance, 02/18/21 11:48:00 EDT, Partial fill upon patient request if the prescription is for a schedule II opioid drug. Start Date: 02/18/21 Status: Ordered bifidobacterium-lactobacillus oral tablet 2 tablet, By Mouth, Daily, [facility] ([facility]), # 180 tablet, 3 Refills, Maintenance, 06/27/21 9:09:00 EST, Tablet, [id number], Partial fill upon patient request if the prescription is for a schedule II opioid drug., 2 tablet By... Start Date: 06/27/21 Status: Ordered Botox 200 units injection See Instructions, 200 units for injection into left gastrocs Dx: Plantarflexion contracture, # 1 each, 0 Refills, Maintenance, 04/18/20 12:31:00 EDT Start Date: 04/18/20 Status: Ordered calcium carbonate 600 mg oral tablet 1 tablet = 600 mg, By Mouth, 2 times a day, # 180 tablet, 1 Refills, Maintenance, 07/13/21 14:17:00EST, Tablet, [facility], Partial fill upon patient request if the prescription is for a schedule II opioid drug., 153, cm, 06/27... Start Date: 07/13/21 Stop Date: 01/09/22 Status: Ordered cefpodoxime 200 mg oral tablet 0 Refills, Maintenance, 06/27/21 7:47:00 EST, Partial fill upon patient request if the prescriptionis for a schedule II opioid drug. Start Date: 06/27/21 Status: Ordered Centrum Silver Ultra Women's oral tablet 1 tablet, By Mouth, Daily, 0 Refills, Maintenance, 07/09/18 8:43:55 EST Start Date: 07/09/18 Status: Ordered electric adiel lift split leg sling type electric adiel lift split leg sling type, See Instructions, # 1 each, Refills 0, Tot. Refills 0, Maintenance, Pt height 153cm Pt weight 82kg needs for toileting hygeine, 05/27/21 15:48:00 EDT, Pt height 153cm; Pt weight 82kg; needs for toileting hyg... Start Date: 05/27/21 Status: Ordered furosemide 40 mg oral tablet 40 mg, 1, tablet, By Mouth, Daily, # 90 tablet, Refills 2, Tot. Refills 2, Maintenance, 04/05/21 13:39:00 EDT, Route to Pharmacy Electronically, [facility], Partial fill upon patient request if the prescription is for a schedule... Start Date: 04/05/21 Stop Date: 05/05/21 Status: Ordered gabapentin 300 mg oral capsule 300 mg, 1, capsule, By Mouth, Daily at bedtime, Refills 0, Maintenance, 06/27/21 8:06:00 EST, Partial fill upon patient request if the prescription is for a schedule II opioid drug. Start Date: 06/27/21 Status: Ordered levothyroxine 0.088 mg oral tablet 1 tablet = 88 mcg, By Mouth, Daily, # 90 tablet, 1 Refills, Maintenance, 07/13/21 14:09:00 EST, Tablet, [facility], Partial fill upon patient request if the prescription is fora schedule II opioid drug., 153, cm, 06/27/21 7:47:... Start Date: 07/13/21 Status: Ordered lisinopril 5 mg oral tablet 5 mg, 1, tablet, By Mouth, Daily, # 90 tablet, Refills 1, Tot. Refills 1, Maintenance, 07/13/21 14:08:00 EST, Route to Pharmacy Electronically, [facility], Partial fill upon patient request if the prescription is for a schedule... Start Date: 07/13/21 Status: Ordered Provigil 200 mg oral tablet 1 tablet = 200 mg, By Mouth, 2 times a day, takes in am and lunchtime brand name only - dispense aswritten, # 56 tablet, 1 Refills, Maintenance, 07/14/21 17:19:00 EST, Tablet, [facility], Partial fill upon patient request if t... Start Date: 07/14/21 Stop Date: 09/08/21 Status: Ordered Turmeric = 750 mg, By Mouth, 2 times a day, 0 Refills, Maintenance, 07/09/18 8:47:35 EST Start Date: 07/09/18 Status: Ordered Vitamin D3 2000 intl units oral capsule 1 capsule, By Mouth, Daily, # 90 capsule, 1 Refills, [id number], 153, cm, 04/25/21 13:34:00 EDT, Height Start Date: 06/21/21 Status: Ordered Xarelto 20 mg oral tablet 1 tablet = 20 mg, By Mouth, Daily before dinner, 0 Refills, Maintenance, 04/07/20 13:38:00 EDT Start Date: 04/07/20 Status: Ordered Problem List Condition Effective Dates Status Health Status Inform ant Chronic saddle pulmonary embolism(Confirmed) Active DVT (deep venous thrombosis)(Confirmed) Active H/O: stroke(Confirmed) Active H/O osteopenia(Confirmed) Active Hypertension(Confirmed) Active Hypothyroidism(Confirmed) Active MS (multiple sclerosis)(Confirmed) Active Muscle weakness(Confirmed) Active Paraplegia(Confirmed) Active Pulmonary embolism(Confirmed) Active Bladder spasm(Confirmed) Active Spasticity(Confirmed) Active Social History Social History Type Response Smoking Status Never smoker entered on: 11/15/14 Sex
--- OUTSIDE RECORDS SUMMARY | 2024-03-17 13:25 | XMS_ITS | Continuity of Care Document ---
Author Organization [facility] Address [address] [place] [address]- Care Team Providers Care Electrophysiology Technologist Name Role Phone Juan Manuel LIM, Kristen Acosta Primary Care Physic juan alberto Encounter [facility] Date(s): 11/04/21 - 12/04/21 [facility] [address] [place] [address] Allergies, Adverse Reactions, Alerts Substance Reaction Severity [...] 04/19/22 17:46:00 EDT, 08/22/21 17:46:00 EST, Capsule, [id number], Partial fill upon patient request if the prescription is for a schedul... Start Date: 08/22/21 Stop Date: 04/19/22 Status: Ordered ascorbic acid 1000 mg oral tablet 1 tablet = 1,000 mg, By Mouth, 2 times a day, # 90 tablet, 1 Refills, Maintenance, 08/11/21 17:03:00 EST, Tablet, [id number], Partial fill upon patient request if the prescription is for a schedule II opioid drug., 153, cm, 06/27/21 7:47:00 ES... Start Date: 08/11/21 Status: Ordered baclofen 20 mg oral tablet 20 mg, 1, tablet, By Mouth, 3 times a day, # 360 tablet, Refills 1, Tot. Refills 1, Maintenance, 08/02/21 14:09:00 EST, Route to Pharmacy Electronically, [facility], Partial fill upon patient request if the prescription is for a... Start Date: 08/02/21 Status: Ordered bifidobacterium-lactobacillus oral tablet 2 tablet, By Mouth, 2 times a day, [facility] Brand please ([facility]), # 360 tablet, 3 Refills, Maintenance, 08/11/21 17:02:00 EST, Tablet, [id number], Partial fill upon patient request if the prescription is for a schedule II opioid drug., 2... Start Date: 08/11/21 Stop Date: 08/06/22 Status: Ordered calcium carbonate 600 mg oral tablet 1 tablet = 600 mg, By Mouth, 2 times a day, for 90 days, # 180 tablet, 1 Refills, Hard Stop 01/09/22 14:17:00 EDT, 07/13/21 14:17:00 EST, Tablet, [facility], Partial fill upon patient request if the prescription is for a schedul... Start Date: 07/13/21 Stop Date: 01/09/22 Status: Ordered Centrum Silver Ultra Women's oral tablet 1 tablet, By Mouth, Daily, 0 Refills, Maintenance, 07/09/18 8:43:55 EST Start Date: 07/09/18 Status: Ordered [facility] SENIOR PROBIOTIC CAPSULE TAKE 2 CAPSULES BY MOUTH TWICE A DAY Start Date: 11/01/21 Status: Ordered electric [place] lift split leg [...] Instructions, USE RECTALLY EVERY DAY NEEDED FOR CONSTIPATION *PA STILL NEEDED, # 450 mL, 0 Refills, [id number], 153, cm, 08/30/21 16:43:00 EST, Height Start Date: 10/13/21 Status: Ordered estradiol 0.1 mg/g vaginal cream [...] 04/05/21 13:39:00 EDT, Route to Pharmacy Electronically, [facility], Partial fill upon patient request if the prescription is for a schedule... Start Date: 04/05/21 Stop Date: 05/05/21 Status: Ordered gabapentin 300 mg oral capsule 300 mg, 1, capsule, By Mouth, Daily at bedtime, # 90 capsule, Refills 2, Tot. Refills 2, Maintenance, 08/02/21 14:08:00 EST, Route to Pharmacy Electronically, [facility], Partial fill upon patient request if the prescription is... Start Date: 08/02/21 Status: Ordered levothyroxine 0.088 mg oral tablet 1 tablet = 88 mcg, By Mouth, Daily, # 90 tablet, 1 Refills, Maintenance, 07/13/21 14:09:00 EST, Tablet, [facility], Partial fill upon patient request if the prescription is fora schedule II opioid drug., 153, cm, 06/27/21 7:47:... Start Date: 07/13/21 Status: Ordered lisinopril 5 mg oral tablet 5 mg, 1, tablet, By Mouth, Daily, # 90 tablet, Refills 1, Tot. Refills 1, Maintenance, 07/13/21 14:08:00 EST, Route to Pharmacy Electronically, [facility], Partial fill upon patient request if the prescription is for a schedule... Start Date: 07/13/21 Status: Ordered Power [place] Lift with [place] split-leg sling Power [place] Lift with [place] split-leg sling, See Instructions, # 1 each, [...] 1 Refills, Maintenance, 07/14/21 17:19:00 EST, Tablet, [facility], Partial fill upon patient request if t... Start Date: 07/14/21 Stop Date: 09/08/21 Status: Ordered Turmeric = 750 mg, By Mouth, 2 times a day, 0 Refills, Maintenance, 07/09/18 8:47:35 EST Start Date: 07/09/18 Status: Ordered Vitamin D3 2000 intl units oral capsule 1 capsule, By Mouth, Daily, # 90 capsule, 1 Refills, 08/11/21 17:04:00 EST, [id number], 153, cm, 06/27/21 7:47:00 EST, Height Start Date: 08/11/21 Status: Ordered Xarelto 20 mg oral tablet 1 tablet = 20 mg, By Mouth, Daily before dinner, 0 Refills, Maintenance, 04/07/20 13:38:00 EDT Start Date: 04/07/20 Status: Ordered Problem List Condition Effective Dates Status Health Status Inform ant Idiopathic intracranial hypertension(Confirmed) Active Chronic saddle pulmonary embolism(Confirmed) Active Excessive daytime sleepiness(Confirmed) Active DVT (deep venous thrombosis)(Confirmed) Active H/O: stroke(Confirmed) Active H/O osteopenia(Confirmed) Active Hypertension(Confirmed) Active Hypothyroidism(Confirmed) Active MS (multiple sclerosis)(Confirmed) Active Muscle weakness(Confirmed) Active Obese class II(Confirmed) Active Paraplegia(Confirmed) Active Pulmonary embolism(Confirmed) Active Bladder spasm(Confirmed) Active Spasticity(Confirmed) Active Social History Social History Type Response Smoking Status Never (less than 100 in lifetime) entered on: 10/31/21 Sex
--- OUTSIDE RECORDS SUMMARY | 2024-03-17 13:25 | XMS_ITS | Continuity of Care Document ---
Author Organization [facility] Address [address] [place] [address]- Care Team Providers Care Field Organizer Name Role Phone Rey CENTENO, Javy Lerma Primary Care Physician [place] [facility] Date(s[place] 02/22/21 - 03/24/21 [facility] [address] [place] [address]- Allergies, Adverse Reactions, Alerts Substance Reaction Severity Status morphine hives, SOB Active penicillins hive Active Wellbutrin rash Active Reglan Active cannabis (Schedule I substance) itching/vomiting Active Other Environmental Allergy mercury-fillings Active contrast media (iodine-based) itching throughout body Active Medications Azelex 20% topical cream 1 applicator, Topically, 2 times a day, 0 Refills, Maintenance, 07/09/18 9:28:21 EST Start Date: 07/09/18 Status: Ordered baclofen 20 mg oral tablet 20 mg, 1, tablet, By Mouth, 3 times a day, # 90 tablet, Refills 0, Maintenance, 02/18/21 11:48:00 EDT, Partial fill upon patient request if the prescription is for a schedule II opioid drug. Start Date: 02/18/21 Status: Ordered Botox 200 units injection See Instructions, 200 units for injection into left gastrocs Dx: Plantarflexion contracture, # 1 each, 0 Refills, Maintenance, 04/18/20 12:31:00 EDT Start Date: 04/18/20 Status: Ordered Centrum Silver Ultra Women's oral tablet 1 tablet, By Mouth, Daily, 0 Refills, Maintenance, 07/09/18 8:43:55 EST Start Date: 07/09/18 Status: Ordered Colace sodium 100 mg oral capsule 100 mg, 1, capsule, By Mouth, 2 times a day, PRN, # 60 capsule, Refills 0, Tot. Refills 0, Maintenance, as needed for constipation, 02/18/21 10:23:00 EDT, Route to Pharmacy Electronically, [id number], Partial fill upon patient request if the p... Start Date: 02/18/21 Stop Date: 03/20/21 Status: Ordered Copaxone 20 mg/mL subcutaneous solution = 20 mg, Subcutaneous Injection, Daily, 0 Refills, Maintenance, 07/09/18 9:29:49 EST Start Date: 07/09/18 Status: Ordered Cranberry 0 Refills, Maintenance, 11/28/18 16:26:04 EDT Start Date: 11/28/18 Status: Ordered cranberry oral capsule 0 Refills, Maintenance, 03/25/19 15:47:34 EDT Start Date: 03/25/19 Status: Ordered furosemide 40 mg oral tablet 40 mg, 1, tablet, By Mouth, Daily, Refills 0, Maintenance, 07/09/18 9:31:04 EST Start Date: 07/09/18 Status: Ordered gabapentin 250 mg/5 mL oral solution 12 mL = 600 mg, By Mouth, 4 times a day, # 1,440 mL, 0 Refills, Maintenance, 02/18/21 10:22:00 EDT,Liquid, [id number], Partial fill upon patient request if the prescription is for a scheduleII opioid drug. Ok to dispense similar quantity if... Start Date: 02/18/21 Stop Date: 03/20/21 Status: Ordered levothyroxine 0.088 mg oral tablet 1 tablet = 88 mcg, By Mouth, Daily, # 30 tablet, 0 Refills, Maintenance, 11/15/14 6:18:12, Tablet Start Date: 11/15/14 Status: Ordered Lisinopril = 5 mg, By Mouth, Daily, 0 Refills, Maintenance, 07/09/18 9:27:48 EST Start Date: 07/09/18 Status: Ordered Magnesium Citrate By Mouth, 0 Refills, Maintenance, 11/28/18 16:25:54 EDT Start Date: 11/28/18 Status: Ordered methenamine hippurate 1 gm oral tablet 1 tablet = 1 Gm, By Mouth, 2 times a day, # 14 tablet, 0 Refills, Maintenance, 02/16/21 0:40:00 EDT, Tablet, Partial fill upon patient request if the prescription is for a schedule II opioid drug. Start Date: 02/16/21 Status: Ordered probiotic 10billion cfu probiotic 10billion cfu, Refills 0, Maintenance, 10/02/18 13:17:08 EST, Compound Start Date: 10/02/18 Status: Ordered Probiotic Formula 1 capsule, By Mouth, Daily, 0 Refills, Maintenance, 12/08/16 8:49:57 Start Date: 12/08/16 Status: Ordered Provigil 200 mg oral tablet 200 mg, 1, tablet, By Mouth, 2 times a day, takes in am and lunchtime, 0 Refills Start Date: 01/18/08 Status: Ordered SloFe 50mg SloFe 50mg, Refills 0, Maintenance, 10/02/18 13:16:36 EST, Compound Start Date: 10/02/18 Status: Ordered Turmeric = 750 mg, By Mouth, 2 times a day, 0 Refills, Maintenance, 07/09/18 8:47:35 EST Start Date: 07/09/18 Status: Ordered vesicare 2.5mg vesicare 2.5mg, Refills 0, Maintenance, 10/02/18 13:16:15 EST, Compound Start Date: 10/02/18 Status: Ordered Vitamin B12 0 Refills, Maintenance, 10/02/18 13:17:49 EST Start Date: 10/02/18 Status: Ordered Vitamin D3 2000 intl units oral capsule 1 capsule = 2,000 International_Units, By Mouth, Daily, 0 Refills, Maintenance, 07/09/18 8:44:15 EST Start Date: 07/09/18 Status: Ordered Xarelto 20 mg oral tablet 1 tablet = 20 mg, By Mouth, Daily before dinner, 0 Refills, Maintenance, 04/07/20 13:38:00 EDT Start Date: 04/07/20 Status: Ordered Problem List Condition Effective Dates Status Health Status Inform ant Chronic saddle pulmonary embolism(Confirmed) Active H/O: stroke(Confirmed) Active H/O osteopenia(Confirmed) Active Hypertension(Confirmed) Active Hypothyroidism(Confirmed) Active MS (multiple sclerosis)(Confirmed) Active Muscle weakness(Confirmed) Active Paraplegia(Confirmed) Active Bladder spasm(Confirmed) Active Spasticity(Confirmed) Active Social History Social History Type Response Smoking Status Never smoker entered on: 11/15/14 Sex
--- OUTSIDE RECORDS SUMMARY | 2024-03-17 13:25 | XMS_ITS | Continuity of Care Document ---
Author Organization [facility] Address [address] [place] [address]- Care Team Providers Care Staff Development Manager Name Role Phone Juan Manuel LIM, Kristen Acosta Primary Care Physic juan alberto [place] [facility] [place]14/22 [facility] [address] [place] [id number]- Allergies, Adverse Reactions, Alerts Substance Reaction Severity Status morphine hives, SOB Active penicillins hive Active Wellbutrin rash Active Reglan Active cannabis (Schedule I substance) itching/vomiting Active Other Environmental Allergy mercury-fillings Active contrast media (iodine-based) itching throughout body Active Immunizations Given and Recorded Vaccine Date Status Refusal Reason influenza virus vaccine, inactivated 03/29/22 Arnoldo rded [...] vaccine, inactivated 04/26/09 Arnoldo rded SARS-CoV-2 mRNA (ztpykqu-bmpb-iujfs) vax 03/10/22 Recorded SARS-CoV-2 mRNA (zclmket-vauy-qnsnd) vax 10/04/21 Recorded SARS-CoV-2 (COVID-19) mRNA BNT-162b2 [...] 04/19/22 17:46:00 EDT, 08/22/21 17:46:00 EST, Capsule, [facility]/pharmacy #[id number], Partial fill upon patient request if the prescription is for a schedul... Start Date: 08/22/21 Stop Date: 04/19/22 Status: Ordered ascorbic acid 1000 mg oral tablet 1 tablet = 1,000 mg, By Mouth, 2 times a day, # 90 tablet, 2 Refills, Maintenance, 02/28/22 8:12:00EDT, Tablet, [facility]/pharmacy #[id number], Partial fill upon patient request if the prescription is for a schedule II opioid drug., 155, cm, 02/23/22 8:04:00 EDT... Start Date: 02/28/22 Status: Ordered baclofen 20 mg oral tablet 20 mg, 1, tablet, By Mouth, 3 times a day, # 270 tablet, Refills 2, Tot. Refills 2, Maintenance, 12/09/22 12:44:00 EDT, Route to Pharmacy Electronically, [facility], Partial fill upon patient request if the prescription is for a... Start Date: 12/09/22 Stop Date: 09/05/23 Status: Ordered baclofen 20 mg oral tablet 20 mg, 1, tablet, By Mouth, 3 times a day, for 90 days, # 270 tablet, Refills 2, Tot. Refills 2, Hard Stop 12/09/22 12:44:00 EDT, 03/14/22 12:44:00 EDT, [id number] Partial fill upon patient request if the pre... Start Date: 03/14/22 Stop Date: 12/09/22 Status: Ordered bifidobacterium-lactobacillus oral tablet 2 tablet, By Mouth, 2 times a day, [facility] Brand please (Senior Wellness), # 360 tablet, 3 Refills, Maintenance, 08/11/21 17:02:00 EST, Tablet, [facility]/pharmacy #[id number], Partial fill upon patient request if the prescription is for a schedule II opioid drug., 2... Start Date: 08/11/21 Stop Date: 08/06/22 Status: Ordered calcium carbonate 600 mg oral tablet 1 tablet = 600 mg, By Mouth, 2 times a day, # 180 tablet, 2 Refills, Maintenance, 01/06/23 14:02:00EDT, Tablet, [facility]/pharmacy #[id number], Partial fill upon patient request if the prescription is for a schedule II opioid drug., 155, cm, 02/23/22 8:04:00 EDT... Start Date: 01/06/23 Stop Date: 10/03/23 Status: Ordered calcium carbonate 600 mg oral tablet 1 tablet = 600 mg, By Mouth, 2 times a day, for 90 days, # 180 tablet, 3 Refills, Hard Stop 01/06/23 14:02:00 EDT, 01/11/22 14:02:00 EDT, Tablet, [facility], Partial fill upon patient request if the prescription is for a schedul... Start Date: 01/11/22 Stop Date: 01/06/23 Status: Ordered Centrum Silver Ultra Women's oral tablet 1 tablet, By Mouth, Daily, 0 Refills, Maintenance, 07/09/18 8:43:55 EST Start Date: 11/27/18 Status: Ordered [facility] SENIOR PROBIOTIC CAPSULE TAKE 2 CAPSULES BY MOUTH TWICE A DAY Start Date: 11/01/21 Status: Ordered diclofenac 1% topical gel 1 application, Topically, 4 times a day, Apply 4 gram QID prn to affected pain to dropped foot - not to exceed 16 grams/day/single joint of lower extremities, # 100 Gm, 3 Refills, Maintenance, 04/02/22 21:13:00 EDT, Gel, [facility] Start Date: 04/02/22 Status: Ordered electric [...] 450 mL, 5 Refills, 03/02/22 8:08:00 EDT, [facility]/pharmacy #[id number], 155, cm, 02/23/22 8:04:00 EDT, Height, [...] 01/02/22 9:03:00 EDT, Route to Pharmacy Electronically, [facility], Partial fill upon patient request if [...] 01/11/22 13:45:00 EDT, Route to Pharmacy Electronically, [facility]... Start Date: 01/11/22 Status: Ordered gabapentin 300 mg oral capsule 300 mg, 1, capsule, By Mouth, 3 times a day, # 270 capsule, Refills 2, Tot. Refills 2, Maintenance,05/21/22 7:44:00 EDT, Route to Pharmacy Electronically, [facility], Partial fill upon patient request if the prescription is for... Start Date: 05/21/22 Stop Date: 02/15/23 Status: Ordered gabapentin 300 mg oral capsule 300 mg, 1, capsule, By Mouth, 3 times a day, for 30 days, # 90 capsule, Refills 2, Tot. Refills 2, Hard Stop 05/21/22 7:44:00 EDT, 02/20/22 7:44:00 EDT, Route to Pharmacy Electronically, [facility]/pharmacy#[id number], Partial fill upon patient request if the pre... Start Date: 02/20/22 Stop Date: 05/21/22 Status: Ordered Juzo Compression Hose Juzo Compression Hose, See Instructions, # 2 each, Refills 2, Tot. Refills 2, Maintenance, 20-30mmghg FF Petite (short),Hzsng-tjs-mzpp, soft knee, black silicone Stock code [id number] Part #[id number], Size III. [facility] [id number], 12/07/21 11:32:00 EDT,... Start Date: 12/07/21 Status: Ordered levothyroxine 0.088 mg oral tablet 1 tablet = 88 mcg, By Mouth, Daily, # 90 tablet, 3 Refills, Maintenance, 03/31/22 13:45:00 EDT, Tablet, [facility], Partial fill upon patient request if the prescription is fora schedule II opioid drug., 155, cm, 03/14/22 11:11... Start Date: 03/31/22 Status: Ordered lisinopril 5 mg oral tablet 5 mg, 1, tablet, By Mouth, Daily, # 90 tablet, Refills 3, Tot. Refills 3, Maintenance, 02/24/22 15:53:00 EDT, Route to Pharmacy Electronically, [facility]/pharmacy #[id number], Partial fill upon patient request if the prescription is for a schedule II opioid drug.... Start Date: 02/24/22 Status: Ordered Potassium Chloride (Eqv-K-Tab) 20 mEq oral tablet, extended release 1 tablet = 20 mEq, By Mouth, Daily, for low potassium, # 10 tablet, 0 Refills, Maintenance, 03/02/22 19:14:00 EDT, [facility]/pharmacy #[id number], Partial fill upon patient request if the prescription is for a schedule II opioid drug., 155, cm, 02/23/22 8:04:00 E... Start Date: 03/02/22 Stop Date: 03/12/22 Status: Ordered Power Virginia Lift with [place] split-leg sling Power [place] Lift with [place] split-leg sling, See Instructions, # 1 each, [...] 3 Refills, Maintenance, 02/28/22 8:12:00 EDT, Tablet, [facility]/pharmacy #[id number], Partial fill upon patient request if [...] 90 capsule, 2 Refills, 02/28/22 8:13:00 EDT, [facility]/pharmacy #[id number], 155,cm, 02/23/22 8:04:00 EDT, Height, 93.4, kg, 11/01/21 16:52:00 EDT, Dry Weight Start Date: 02/28/22 Status: Ordered Xarelto 20 mg oral tablet 1 tablet = 20 mg, By Mouth, Daily at supper, # 90 tablet, 3 Refills, Maintenance, 02/01/22 12:42:00EDT, Tablet, [facility], Partial fill upon patient request [...] Neurogenic bladder(Confirmed) Active Obese class II(Confirmed) Active Obstructive sleep apnea(Confirmed) Active Paraplegia(Confirmed) Active Pulmonary embolism(Confirmed) Active Bladder spasm(Confirmed) Active Spasticity(Confirmed) Active Social History Social History Type Response Smoking Status Never (less than 100 in lifetime) entered on: 10/31/21 Sex Care Team Personnel Name: Juan Manuel LIM, Kristen Acosta Address: [address] [place] [address]
--- OUTSIDE RECORDS SUMMARY | 2024-03-17 13:25 | XMS_ITS | Continuity of Care Document ---
Author Organization [facility] Address [address] [place] [id number]- Care Team Providers Care Spring Former Hand Name Role Phone Juan Manuel LIM, Kristen Acosta Primary Care Physic juan alberto Encounter [facility] [place] Date(s): 08/30/21 - 09/29/21 [facility] [address] [place] [id number] Attending Physician: Alissa Gannon Admitting Physician: AdmtrAlissa Referring Physician: Admtr, Ar8 Allergies, Adverse Reactions, Alerts Substance Reaction Severity Status morphine hives, SOB Active Wellbutrin rash Active contrast media (iodine-based) itching throughout body Active penicillins hive Active Reglan Active cannabis (Schedule I substance) itching/vomiting Active Other Environmental Allergy mercury-fillings Active Immunizations Given and Recorded Vaccine Date [...] 04/19/22 17:46:00 EDT, 08/22/21 17:46:00 EST, Capsule, [facility]/pharmacy #[id number], Partial fill upon patient request if the prescription is for a schedul... Start Date: 08/22/21 Stop Date: 04/19/22 Status: Ordered ascorbic acid 1000 mg oral tablet 1 tablet = 1,000 mg, By Mouth, 2 times a day, # 90 tablet, 1 Refills, Maintenance, 08/11/21 17:03:00 EST, Tablet, [facility]/pharmacy #[id number], Partial fill upon patient request if the prescription is for a schedule II opioid drug., 153, cm, 06/27/21 7:47:00 ES... Start Date: 08/11/21 Status: Ordered baclofen 20 mg oral tablet 20 mg, 1, tablet, By Mouth, 4 times a day, # 360 tablet, Refills 1, Tot. Refills 1, Maintenance, 08/02/21 14:09:00 EST, Route to Pharmacy Electronically, [facility], Partial fill upon patient request if the prescription is for a... Start Date: 08/02/21 Status: Ordered bifidobacterium-lactobacillus oral tablet 2 tablet, By Mouth, 2 times a day, [facility] Brand please (Senior Wellness), # 360 tablet, 3 Refills, Maintenance, 08/11/21 17:02:00 EST, Tablet, [facility]/pharmacy #[id number], Partial fill upon patient request if the prescription is for a schedule II opioid drug., 2... Start Date: 08/11/21 Stop Date: 08/06/22 Status: Ordered Botox 200 units injection See [...] 01/09/22 14:17:00 EDT, 07/13/21 14:17:00 EST, Tablet, [facility], Partial fill upon patient request if the prescription is for a schedul... Start Date: 07/13/21 Stop Date: 01/09/22 Status: Ordered calcium carbonate 600 mg oral tablet 1 tablet = 600 mg, By Mouth, 2 times a day, # 180 tablet, 1 Refills, Maintenance, 01/09/22 14:17:00EDT, Tablet, [facility]/pharmacy #[id number], Partial fill upon patient request if the prescription is for a schedule II opioid drug., 153, cm, 06/27/21 7:47:00 EST... Start Date: 01/09/22 Stop Date: 07/08/22 Status: Ordered cefpodoxime 200 mg oral tablet 0 Refills, Maintenance, 06/27/21 7:47:00 EST, Partial fill upon patient request if the prescriptionis for a schedule II opioid drug. Start Date: 06/27/21 Status: Ordered Centrum Silver Ultra Women's oral tablet 1 tablet, By Mouth, Daily, 0 Refills, Maintenance, 07/09/18 8:43:55 EST Start Date: 07/09/18 Status: Ordered electric virginia lift split leg sling type electric virginia lift split leg sling type, See Instructions, # 1 each, Refills 0, Tot. Refills 0, Maintenance, Pt height 153cm Pt weight 82kg needs for toileting hygeine, 05/27/21 15:48:00 EDT, Pt height 153cm; Pt weight 82kg; needs for toileting hyg... Start Date: 05/27/21 Status: Ordered fosfomycin 3 gm oral powder for reconstitution 1 pack/packet, By Mouth, Every 72 hours, dissolve in water before taking, # 3 each, 0 Refills, SoftStop, 09/01/21 9:49:00 EST, REC Powder, [facility]/pharmacy #[id number], Partial fill upon patient request if the prescription is for a schedule II opioid drug., 15... Start Date: 09/01/21 Status: Ordered Fully powered virignia lift with split leg sling type Fully [...] 04/05/21 13:39:00 EDT, Route to Pharmacy Electronically, [facility], Partial fill upon patient request if the prescription is for a schedule... Start Date: 04/05/21 Stop Date: 05/05/21 Status: Ordered gabapentin 300 mg oral capsule 300 mg, 1, capsule, By Mouth, Daily at bedtime, # 90 capsule, Refills 2, Tot. Refills 2, Maintenance, 08/02/21 14:08:00 EST, Route to Pharmacy Electronically, [facility], Partial fill upon patient request if the prescription is... Start Date: 08/02/21 Status: Ordered levothyroxine 0.088 mg oral tablet 1 tablet = 88 mcg, By Mouth, Daily, # 90 tablet, 1 Refills, Maintenance, 07/13/21 14:09:00 EST, Tablet, [facility], Partial fill upon patient request if the prescription is fora schedule II opioid drug., 153, cm, 06/27/21 7:47:... Start Date: 07/13/21 Status: Ordered lisinopril 5 mg oral tablet 5 mg, 1, tablet, By Mouth, Daily, # 90 tablet, Refills 1, Tot. Refills 1, Maintenance, 07/13/21 14:08:00 EST, Route to Pharmacy Electronically, [facility], Partial fill upon patient request if the prescription is for a schedule... Start Date: 07/13/21 Status: Ordered Power [place] Lift with [place] split-leg sling Power [place] Lift with [place] split-leg sling, See Instructions, # 1 each, [...] 1 Refills, Maintenance, 07/14/21 17:19:00 EST, Tablet, [facility], Partial fill upon patient request if t... Start Date: 07/14/21 Stop Date: 09/08/21 Status: Ordered Turmeric = 750 mg, By Mouth, 2 times a day, 0 Refills, Maintenance, 07/09/18 8:47:35 EST Start Date: 07/09/18 Status: Ordered Vitamin D3 2000 intl units oral capsule 1 capsule, By Mouth, Daily, # 90 capsule, 1 Refills, 08/11/21 17:04:00 EST, [facility]/pharmacy #[id number], 153, cm, 06/27/21 7:47:00 EST, Height [...]
--- OUTSIDE RECORDS SUMMARY | 2024-03-17 13:25 | XMS_ITS | Continuity of Care Document ---
Author Organization [facility] Address [address] [place] [address]- Care Team Providers Care Mail Reader Name Role Phone Juan Manuel LIM, Kristen Acosta Primary Care Physic juan alberto Encounter [facility] Date(s): 02/04/24 - 03/05/24 [facility] [address] [place] [address]- Allergies, Adverse Reactions, Alerts Substance Reaction Severity Status morphine hives, SOB Active Wellbutrin rash Active contrast media (iodine-based) itching throughout body Active penicillins hive Active Reglan Active cannabis (Schedule I substance) itching/vomiting Active Other Environmental Allergy mercury-fillings Active Immunizations Given and Recorded Vaccine Date Status Refusal Reason SARS-CoV-2(COVID-19)mRNA-LNP vac([id number]) 10/19/23 Recorded SARS-CoV-2(COVID-19)mRNA-LNP vac([id number]) 07/03/23 Recorded RSV vaccine preF3, recombinant 05/19/23 Recorded influenza virus vaccine, inactivated 05/19/23 Arnoldo rded influenza virus vaccine, inactivated 03/29/22 Arnoldo rded [...] Arnoldo rded influenza virus vaccine, inactivated 04/01/12 Arnolod rded influenza virus vaccine, inactivated 04/26/09 Arnoldo rded [id number] 12y+ bivalent booster vax 01/23/23 Recorded [id number] 12y+ bivalent booster vax 05/12/22 Recorded pneumococcal 20-valent conjugate vaccine 05/30/22 Recorded SARS-CoV-2 mRNA (htdwvah-endz-xyitv) vax 03/10/22 Recorded SARS-CoV-2 mRNA (liyatiy-xkah-qtklf) vax 10/04/21 Recorded SARS-CoV-2 (COVID-19) mRNA BNT-162b2 [...] day, # 90 tablet, 1 Refills, Maintenance, 08/01/23 13:53:00 EST, Tablet, [facility]/pharmacy #[id number], Partial fill upon patient request if the prescription is for a schedule II opioid drug., 155, cm, 05/28/23 11:02:00 E... Start Date: 08/01/23 Status: Ordered baclofen 20 mg oral tablet 20 mg, 1, tablet, By Mouth, 3 times a day, # 270 tablet, Refills 0, Tot. Refills 0, Maintenance, 06/25/24 10:31:00 EST, Route to Pharmacy Electronically, [facility], Partial fill upon patient request if the prescription is for a... Start Date: 06/25/24 Stop Date: 09/23/24 Status: Ordered bifidobacterium-lactobacillus oral tablet 2 tablet, By Mouth, 2 times a day, [facility] Brand please (Senior Wellness), # 360 tablet, 3 Refills, Maintenance, 08/11/21 17:02:00 EST, Tablet, [facility]/pharmacy #[id number], Partial fill upon patient request if the prescription is for a schedule II opioid drug., 2... Start Date: 08/11/21 Stop Date: 08/06/22 Status: Ordered calcium carbonate 600 mg oral tablet 1 tablet = 600 mg, By Mouth, 2 times a day, # 180 tablet, 2 Refills, Maintenance, 01/06/23 14:02:00EDT, Tablet, [facility]/pharmacy #[id number], Partial fill upon patient request if the prescription is for a schedule II opioid drug., 155, cm, 02/23/22 8:04:00 EDT... Start Date: 01/06/23 Stop Date: 10/03/23 Status: Ordered Centrum Silver Ultra Women's oral tablet 1 tablet, By Mouth, Daily, 0 Refills, Maintenance, 07/09/18 8:43:55 EST Start Date: 07/09/18 Status: Ordered [facility] SENIOR PROBIOTIC CAPSULE TAKE 2 CAPSULES BY MOUTH TWICE A DAY Start Date: 11/01/21 Status: Ordered Enemeez Mini 283 mg rectal enema See Instructions, USE RECTALLY EVERY DAY NEEDED FOR CONSTIPATION, # 450 mL, 5 Refills, 03/02/22 8:08:00 EDT, [facility]/pharmacy #[id number], 155, cm, 02/23/22 8:04:00 EDT, Height, 93.4, kg, 11/01/21 16:52:00 EDT, Dry Weight Start Date: 03/02/22 Status: Ordered estradiol 0.1 mg/g vaginal cream 0 Refills, Maintenance, 11/01/21 4:26:00 EDT, Partial fill upon patient request if the prescriptionis for a schedule II opioid drug. Start Date: 11/01/21 Status: Ordered fosfomycin 3 g oral granule [...] tablet, Refills 1, Tot. Refills 1, Maintenance, 02/28/24 11:11:00 EDT, Route to Pharmacy Electronically, [facility], 155, cm, 02/18/24 11:04:00EDT, Height Start Date: 02/28/24 Status: Ordered gabapentin 300 mg oral capsule 300 mg, 1, capsule, By Mouth, 3 times a day, # 270 capsule, Refills 1, Tot. Refills 1, Maintenance,12/28/23 10:30:00 EDT, Route to Pharmacy Electronically, [facility], Partialfill upon patient request if the prescription is fo... Start Date: 12/28/23 Stop Date: 06/25/24 Status: Ordered Juzo Compression Hose Juzo Compression Hose, See Instructions, # 2 each, Refills 2, Tot. Refills 2, Maintenance, Juzo Compression Hose 2 pairs [id number]-gse-[id number] Soft Knee FF Petite 20-30 mmHg Silicone, Black Stock Code [id number] I I I Part #[id number] Size I I I SKU... Start Date: 03/12/23 Status: Ordered levothyroxine 0.088 mg oral tablet 1 tablet = 88 mcg, By Mouth, Daily, # 90 tablet, 1 Refills, Maintenance, 10/01/23 17:11:00 EST, Tablet, [facility]/pharmacy #[id number], Partial fill upon patient request if the prescription is for a schedule II opioid drug., 155, cm, 05/28/23 11:02:00 EDT, Height... Start Date: 10/01/23 Status: Ordered lisinopril 5 mg oral tablet 1, tablet, By Mouth, Daily, # 90 tablet, Refills 1, Tot. Refills 1, Maintenance, 10/01/23 17:15:00 EST, Route to Pharmacy Electronically, [facility]/pharmacy #[id number], 155, cm, 05/28/23 11:02:00 EDT, Height, 93.4, kg, 11/01/21 16:52:00 EDT, Dry Weight Start Date: 10/01/23 Status: Ordered Mapap 500 mg oral capsule See Instructions, TAKE 2 CAPSULES BY MOUTH 4 TIMES A DAY NEEDED FOR PAIN, # 480 capsule, 0 Refills, Maintenance, 11/12/23 15:45:00 EDT, [facility]/pharmacy #[id number], 155, cm, 05/28/23 11:02:00 EDT, Height Start Date: 11/12/23 Status: Ordered Power [place] Lift with [place] split-leg sling Power [place] Lift with [place] split-leg sling, See Instructions, # 1 each, [...] lunchtime brand name only - dispense as written Brand name only, # 56 tablet, 3 Refills, Hard Stop 03/14/24 2:50:00 EDT, 11/23/23 2:50:00 EDT, Tablet, [facility]/pharmacy #[id number], Partia... Start Date: 11/23/23 Stop Date: 03/14/24 Status: Ordered Repair for hospital bed Repair [...] 90 capsule, 1 Refills, 12/11/22 15:16:00 EDT, [facility]/pharmacy #[id number], 155, cm, 10/10/22 13:40:00 EST, Height, 93.4, kg, 11/01/21 16:52:00 EDT, Dry Weight Start Date: 12/11/22 Status: Ordered Xarelto 10 mg oral tablet 1 tablet = 10 mg, By Mouth, Daily, # 90 tablet, 3 Refills, Maintenance, 02/26/24 11:39:00 EDT, Tablet, [facility], Partial fill upon patient request if the prescription is for a schedule II opioid drug., 155, cm, 02/18/24 11:04:... Start Date: 02/26/24 Stop Date: 02/20/25 Status: Ordered Xarelto 20 mg oral tablet See Instructions, TAKE 1 TABLET DAILY AT SUPPER, # 90 tablet, 3 Refills, Maintenance, 01/17/23 9:37:00 EDT, [facility], 155, cm, 10/10/22 13:40:00 [...] Effective Dates Status H ealth Status Informant Back pain Confirmed Active Idiopathic intracranial hypertension Confirmed Active Bilateral leg [...] Team Personnel Name: Juliann Rich RN Position: [facility] RN Member Role: Primary Care Nurse Name: Alejandro CENTENO, Elsa Peterson Position: [facility] Outreach Member Role: Primary Care Nurse Address: Address: [address] [place] [id number]- [place] Name: Emma Mendoza RN Position: [facility] AMB Nurse Member Role: Primary Care Nurse Name: Juan Manuel LIM, Kristen Acosta Position: [facility] Physician - Primary Care Member Role: PCP Address: Address: [address] [place] [id number]- Name: Anette Soler RN Position: [facility] Onco RN Member Role: Primary Care Nurse Name: Komal Goodrich Position: [facility] Outreach Member Role: Lifetime Consulting Physician Name: Godfrey Cano Position: [facility] RN Member Role: Primary Care Nurse Care Team Related Persons Name: DIOMEDES WARNER Address: [address] [place] [address] Name: MOO HOWELL Address: [address] [place] [address] Name: MARLON GENTILE
--- OUTSIDE RECORDS SUMMARY | 2024-03-17 13:25 | XMS_ITS | Continuity of Care Document ---
Author Organization [facility] Address [address] [place] [address]- Care Team Providers Care Laborer Demolition Name Role Phone Juan Manuel LIM, Kristen Acosta Primary Care Physic juan alberto Encounter [facility] Date(s): 03/07/22 - 04/06/[address] [address] Allergies, Adverse Reactions, Alerts Substance Reaction [...] Arnoldo rded influenza virus vaccine, inactivated 05/07/17 Arnodlo rded influenza virus vaccine, inactivated 04/19/16 Arnoldo rded influenza virus vaccine, inactivated 04/12/15 Arnoldo rded influenza virus vaccine, inactivated 04/01/13 Arnoldo rded influenza virus vaccine, inactivated 04/01/12 Arnoldo rded influenza virus vaccine, inactivated 04/26/09 Arnoldo rded SARS-CoV-2 mRNA (yxhotxa-gzvf-yppnf) vax 03/10/22 Recorded SARS-CoV-2 mRNA (rqmghsk-cjjf-smwdr) vax 10/04/21 Recorded SARS-CoV-2 (COVID-19) mRNA BNT-162b2 [...] 04/19/22 17:46:00 EDT, 08/22/21 17:46:00 EST, Capsule, [facility]/pharmacy #[id number], Partial fill upon patient request if the prescription is for a schedul... Start Date: 08/22/21 Stop Date: 04/19/22 Status: Ordered ascorbic acid 1000 mg oral tablet 1 tablet = 1,000 mg, By Mouth, 2 times a day, # 90 tablet, 2 Refills, Maintenance, 02/28/22 8:12:00EDT, Tablet, [facility]/pharmacy #[id number], Partial fill upon patient request if the prescription is for a schedule II opioid drug., 155, cm, 02/23/22 8:04:00 EDT... Start Date: 02/28/22 Status: Ordered baclofen 20 mg oral tablet 20 mg, 1, tablet, By Mouth, 3 times a day, # 270 tablet, Refills 2, Tot. Refills 2, Maintenance, 12/09/22 12:44:00 EDT, Route to Pharmacy Electronically, [facility], Partial fill upon patient request if the prescription is for a... Start Date: 12/09/22 Stop Date: 09/05/23 Status: Ordered baclofen 20 mg oral tablet 20 mg, 1, tablet, By Mouth, 3 times a day, for 90 days, # 270 tablet, Refills 2, Tot. Refills 2, Hard Stop 12/09/22 12:44:00 EDT, 03/14/22 12:44:00 EDT, [id number] Partial fill upon patient request if the pre... Start Date: 03/14/22 Stop Date: 12/09/22 Status: Ordered bifidobacterium-lactobacillus oral tablet 2 tablet, By Mouth, 2 times a day, [facility] Brand please (Senior Wellness), # 360 tablet, 3 Refills, Maintenance, 08/11/21 17:02:00 EST, [id number] Partial fill upon patient request if the prescription is for a schedule II opioid drug., 2... Start Date: 08/11/21 Stop Date: 08/06/22 Status: Ordered calcium carbonate 600 mg oral tablet 1 tablet = 600 mg, By Mouth, 2 times a day, # 180 tablet, 2 Refills, Maintenance, 01/06/23 14:02:00EDT, Tablet, [id number] Partial fill upon patient request [...] 01/06/23 14:02:00 EDT, 01/11/22 14:02:00 EDT, Tablet, [facility], Partial fill upon patient request if the prescription is for a schedul... Start Date: 01/11/22 Stop Date: 01/06/23 Status: Ordered Centrum Silver Ultra Women's oral tablet 1 tablet, By Mouth, Daily, 0 Refills, Maintenance, 07/09/18 8:43:55 EST Start Date: 07/09/18 Status: Ordered [facility] SENIOR PROBIOTIC CAPSULE TAKE 2 CAPSULES BY MOUTH TWICE A DAY Start Date: 11/01/21 Status: Ordered diclofenac 1% topical gel 1 application, Topically, 4 times a day, Apply 4 gram QID prn to affected pain to dropped foot - not to exceed 16 grams/day/single joint of lower extremities, # 100 Gm, 3 Refills, Maintenance, 04/02/22 21:13:00 EDT, Gel, [facility] Start Date: 04/02/22 Status: Ordered electric [...] 450 mL, 5 Refills, 03/02/22 8:08:00 EDT, [facility]/pharmacy #[id number], 155, cm, 02/23/22 8:04:00 EDT, [...] 01/02/22 9:03:00 EDT, Route to Pharmacy Electronically, [facility], Partial fill upon patient request if [...] 01/11/22 13:45:00 EDT, [facility] Start Date: 01/11/22 Status: Ordered gabapentin 300 mg oral capsule 300 mg, 1, capsule, By Mouth, 3 times a day, # 270 capsule, Refills 2, Tot. Refills 2, Maintenance,05/21/22 7:44:00 EDT, Route to Pharmacy Electronically, [facility], Partial fill upon patient request if the prescription is for... Start Date: 05/21/22 Stop Date: 02/15/23 Status: Ordered gabapentin 300 mg oral capsule 300 mg, 1, capsule, By Mouth, 3 times a day, for 30 days, # 90 capsule, Refills 2, Tot. Refills 2, Hard Stop 05/21/22 7:44:00 EDT, 02/20/22 7:44:00 EDT, [id number] Partial fill upon patient request if the pre... Start Date: 02/20/22 Stop Date: 05/21/22 Status: Ordered Juzo Compression Hose Juzo Compression Hose, See Instructions, # 2 each, Refills 2, Tot. Refills 2, Maintenance, 20-30mmghg FF Petite (short),Wikbz-ent-umvn, soft knee, black silicone Stock code [id number] Part #[id number], Size III. [facility] [id number], 12/07/21 11:32:00 EDT,... Start Date: 12/07/21 Status: Ordered levothyroxine 0.088 mg oral tablet 1 tablet = 88 mcg, By Mouth, Daily, # 90 tablet, 3 Refills, Maintenance, 03/31/22 13:45:00 EDT, Tablet, [facility], Partial fill upon patient request if the prescription is fora schedule II opioid drug., 155, cm, 03/14/22 11:11... Start Date: 03/31/22 Status: Ordered lisinopril 5 mg oral tablet 5 mg, 1, tablet, By Mouth, Daily, # 90 tablet, Refills 3, Tot. Refills 3, Maintenance, 02/24/22 15:53:00 EDT, Route to Pharmacy Electronically, [facility]/pharmacy #[id number], Partial fill upon patient request if the prescription is for a schedule II opioid drug.... Start Date: 02/24/22 Status: Ordered Potassium Chloride (Eqv-K-Tab) 20 mEq oral tablet, extended release 1 tablet = 20 mEq, By Mouth, Daily, for low potassium, # 10 tablet, 0 Refills, Maintenance, 03/02/22 19:14:00 EDT, [facility]/pharmacy #[id number], Partial fill upon patient request if the prescription is for a schedule II opioid drug., 155, cm, 02/23/22 8:04:00 E... Start Date: 03/02/22 Stop Date: 03/12/22 Status: Ordered Power [place] Lift with [place] split-leg sling Power [place] Lift with [place] split-leg sling, See Instructions, # 1 each, [...] 3 Refills, Maintenance, 02/28/22 8:12:00 EDT, Tablet, [facility]/pharmacy #[id number], Partial fill upon patient request [...] 90 capsule, 2 Refills, 02/28/22 8:13:00 EDT, [facility]/pharmacy #[id number], 155,cm, 02/23/22 8:04:00 EDT, Height, 93.4, kg, 11/01/21 16:52:00 EDT, Dry Weight Start Date: 02/28/22 Status: Ordered Xarelto 20 mg oral tablet 1 tablet = 20 mg, By Mouth, Daily at supper, # 90 tablet, 3 Refills, Maintenance, 02/01/22 12:42:00EDT, Tablet, [facility], Partial fill upon patient request [...] Name: Juan Manuel LIM, Kristen Acosta Address: [address] [place] [address]
--- OUTSIDE RECORDS SUMMARY | 2024-03-17 13:25 | XMS_ITS | Continuity of Care Document ---
Author Organization [facility] Address [address] [facility] [address] [place] [address]- Care Team Providers Care Pathology Laboratory Aides Teacher Name Role Phone Juan Manuel LIM, Kristen Acosta Primary Care Physic juan alberto [place] [facility] [place]22 [facility] [address] [place] [id number]- Attending Physician: Alissa Gannon Admitting Physician: AdmtrAlissa [...] Reason pneumococcal 20-valent conjugate vaccine 05/30/22 Recorded [id number] 12y+ bivalent booster vax 05/12/22 Recorded influenza [...] vaccine, inactivated 04/26/09 Arnoldo rded SARS-CoV-2 mRNA ([id number]-gzvy-wmsns) vax 03/10/22 Recorded SARS-CoV-2 mRNA (bbipwli-ubcq-ujido) vax 10/04/21 Recorded SARS-CoV-2 (COVID-19) mRNA BNT-162b2 [...] 2 times a day, # 90 tablet, 0 Refills, Maintenance, 10/05/22 9:35:00EST, Tablet, [facility]/pharmacy #[id number], Partial fill upon patient request if the prescription is for a schedule II opioid drug., 155, cm, 09/26/22 14:02:00 ES... Start Date: 10/05/22 Status: Ordered baclofen 20 mg oral tablet 20 mg, 1, tablet, By Mouth, 3 times a day, # 270 tablet, Refills 2, Tot. Refills 2, Maintenance, 12/09/22 12:44:00 EDT, Route to Pharmacy Electronically, [facility], Partial fill upon patient request if the prescription is for a... Start Date: 12/09/22 Stop Date: 09/05/23 Status: Ordered baclofen 20 mg oral tablet 20 mg, 1, tablet, By Mouth, 3 times a day, for 90 days, # 270 tablet, Refills 2, Tot. Refills 2, Hard Stop 12/09/22 12:44:00 EDT, 03/14/22 12:44:00 EDT, [id number] fill upon patient request if the pre... Start Date: 03/14/22 Stop Date: 12/09/22 Status: Ordered bifidobacterium-lactobacillus oral tablet 2 tablet, By Mouth, 2 times a day, [facility] Brand please (Senior Wellness), # 360 tablet, 3 Refills, Maintenance, 08/11/21 17:02:00 EST, Tablet, [facility]/pharmacy #[id number], Partial fill upon patient request if the prescription is for a schedule II opioid drug., 2... Start Date: 08/11/21 Stop Date: 08/06/22 Status: Ordered calcium carbonate 600 mg oral tablet 1 tablet = 600 mg, By Mouth, 2 times a day, # 180 tablet, 2 Refills, Maintenance, 01/06/23 14:02:00EDT, Tablet, [id number] Partial fill upon patient request if the prescription is for a schedule II opioid drug., 155, cm, 02/23/22 8:04:00 EDT... Start Date: 01/06/23 Stop Date: 10/03/23 Status: Ordered calcium carbonate 600 mg oral tablet 1 tablet = 600 mg, By Mouth, 2 times a day, for 90 days, # 180 tablet, 3 Refills, Hard Stop 01/06/23 14:02:00 EDT, 01/11/22 14:02:00 EDT, [facility] Partial fill upon patient request if the prescription is for a schedul... Start Date: 01/11/22 Stop Date: 01/06/23 Status: Ordered Centrum Silver Ultra Women's oral tablet 1 tablet, By Mouth, Daily, 0 Refills, Maintenance, 07/09/18 8:43:55 EST Start Date: 07/09/18 Status: Ordered [facility] SENIOR PROBIOTIC CAPSULE TAKE 2 CAPSULES BY MOUTH TWICE A DAY Start Date: 11/01/21 Status: Ordered [facility] Senior Probiotic Capsule [facility] Senior Probiotic Capsule, See Instructions, # 180 [...] 450 mL, 5 Refills, 03/02/22 8:08:00 EDT, [facility]/pharmacy #[id number], 155, cm, 02/23/22 8:04:00 [...] Refills, Soft Stop, 05/26/22 8:59:00 EDT, Tablet, [facility]/pharmacy #[id number], Partial fill upon patient [...] 9:03:00 EDT, Route to Pharmacy Electronically, [facility], Partial fill upon patient [...] 01/11/22 13:45:00 EDT, Route to Pharmacy Electronically, [facility]... Start Date: 01/11/22 Status: Ordered gabapentin 300 mg oral capsule 300 mg, 1, capsule, By Mouth, 3 times a day, for 90 days, # 270 capsule, Refills 2, Tot. Refills 2,Hard Stop 02/15/23 7:44:00 EDT, 05/21/22 7:44:00 EDT, Route to Pharmacy Electronically, [facility], Partial fill upon patient re... Start Date: 05/21/22 Stop Date: 02/15/23 Status: Ordered gabapentin 300 mg oral capsule 300 mg, 1, capsule, By Mouth, 3 times a day, # 270 capsule, Refills 2, Tot. Refills 2, Maintenance,02/15/23 7:44:00 EDT, Route to Pharmacy Electronically, [facility], Partial fill upon patient request if the prescription is for... Start Date: 02/15/23 Stop Date: 11/12/23 Status: Ordered Juzo Compression Hose Juzo Compression Hose, See Instructions, # 2 each, Refills 2, Tot. Refills 2, Maintenance, 20-30mmghg FF Petite (short),Fbgpm-slq-xrnt, soft knee, black silicone Stock code [id number] Part #[id number], Size III. [facility] [id number], 12/07/21 11:32:00 EDT,... Start Date: 12/07/21 Status: Ordered levothyroxine 0.088 mg oral tablet 1 tablet = 88 mcg, By Mouth, Daily, # 90 tablet, 1 Refills, Maintenance, 09/08/22 14:26:00 EST, Tablet, [facility], Partial fill upon patient request if the prescription is fora schedule II opioid drug., 155, cm, 07/12/22 14:10... Start Date: 09/08/22 Status: Ordered lisinopril 5 mg oral tablet 5 mg, 1, tablet, By Mouth, Daily, # 90 tablet, Refills 3, Tot. Refills 3, Maintenance, 02/24/22 15:53:00 EDT, Route to Pharmacy Electronically, [facility]/pharmacy #[id number], Partial fill upon patient request if the prescription is for a schedule II opioid drug.... Start Date: 02/24/22 Status: Ordered lisinopril 5 mg oral tablet See Instructions, TAKE 1 TABLET DAILY, # 90 tablet, Refills 1, Maintenance, 09/24/22 19:24:00 EST, Instructions Replace Required Details, Route to Pharmacy Electronically, [facility], 155, cm, 07/12/22 14:10:00 EST, Height, 93.4, k... Start Date: 09/24/22 Status: Ordered Mapap 500 mg oral capsule See Instructions, TAKE 2 CAPSULES BY MOUTH 4 TIMES A DAY NEEDED FOR PAIN, # 480 capsule, 3 Refills, Maintenance, 06/04/22 16:03:00 EDT, [id number], 155, cm, 05/25/22 13:44:00 EDT, Height, 93.4, kg, 11/01/21 16:52:00 EDT, Dry Weight Start Date: 06/04/22 Status: Ordered Power [place] Lift with [place] split-leg sling Power [place] Lift with [place] split-leg sling, See Instructions, # 1 each, [...] aswritten, # 56 tablet, 5 Refills, Maintenance, 10/05/22 17:39:00 EST, Tablet, [facility]/pharmacy #[id number], Partial fill upon patient request if the prescription... Start Date: 10/05/22 Stop Date: 03/22/23 Status: Ordered Repair for hospital bed Repair [...] 90 capsule, 2 Refills, 02/28/22 8:13:00 EDT, [facility]/pharmacy #[id number], 155,cm, 02/23/22 8:04:00 EDT, Height, 93.4, kg, 11/01/21 16:52:00 EDT, Dry Weight Start Date: 02/28/22 Status: Ordered Xarelto 20 mg oral tablet 1 tablet = 20 mg, By Mouth, Daily at supper, # 90 tablet, 3 Refills, Maintenance, 02/01/22 12:42:00EDT, Tablet, [facility], Partial fill upon patient [...] Team Personnel Name: Juliann Rich RN Position: [facility] RN Member Role: Primary Care Nurse Name: Elsa Allen NP Position: Reference Physician Member Role: Primary Care Nurse Address: Address: [address] [place] [address] [address] [place] [address]- Name: Emma Mendoza RN Position: [facility] RN Member Role: Primary Care Nurse Name: Juan Manuel LIM, Kristen Acosta Position: [facility] Primary Care Physician Member Role: PCP Address: Address: [address] [place] [id number] [[email or web address]] Name: Jade Medina Position: S RN Member Role: Primary Care Nurse Name: Komal Goodrich Position: [facility] Outreach Member Role: Lifetime Consulting Physician Name: Godfrey Cano Position: [facility] RN Member Role: Primary Care Nurse Name: Anette Miranda RN Position: [facility] Onco RN Member Role: Primary Care Nurse Care Team Related Persons Name: DIOMEDES WARNER Address: home [address] [place] [address] [place] [address] Name: MOO HOWELL Address: home [address] [place] [address] Name: MARLON GENTILE
--- OUTSIDE RECORDS SUMMARY | 2024-03-17 13:25 | XMS_ITS | Continuity of Care Document ---
Author Organization [facility] Address [address] [place] [address]- Care Team Providers Care Granite Cutter Name Role Phone Juan Manuel LIM, Kristen Acosta Primary Care Physic juan laberto Encounter [facility] Date(s): 05/18/23 - 06/17/23 [facility] [address] [place] [address]- Allergies, Adverse Reactions, Alerts Substance Reaction Severity Status morphine hives, SOB Active Wellbutrin rash Active Reglan Active contrast media (iodine-based) itching throughout body Active penicillins hive Active cannabis (Schedule I substance) itching/vomiting Active Other Environmental Allergy mercury-fillings Active Immunizations Given and Recorded Vaccine Date Status Refusal Reason pneumococcal 20-valent conjugate vaccine 05/30/22 Recorded [id number] 12y+ bivalent booster vax 05/12/22 Recorded influenza [...] vaccine, inactivated 04/26/09 Arnoldo rded SARS-CoV-2 mRNA (lwhuqur-yguz-tywun) vax 03/10/22 Recorded SARS-CoV-2 mRNA (mbgwlli-rwek-blgpo) vax 10/04/21 Recorded SARS-CoV-2 (COVID-19) mRNA BNT-162b2 [...] 1 Refills, Maintenance, 12/11/22 17:34:00 EDT, Tablet, [facility]/pharmacy #[id number], Partial fill upon patient request if the prescription is for a schedule II opioid drug., 155, cm, 10/10/22 13:40:00 E... Start Date: 12/11/22 Status: Ordered baclofen 20 mg oral tablet 20 mg, 1, tablet, By Mouth, 3 times a day, # 270 tablet, Refills 2, Tot. Refills 2, Maintenance, 12/09/22 12:44:00 EDT, Route to Pharmacy Electronically, [facility], Partial fill upon patient request if the prescription is for a... Start Date: 12/09/22 Stop Date: 09/05/23 Status: Ordered bifidobacterium-lactobacillus oral tablet 2 tablet, By Mouth, 2 times a day, [facility] Brand please (Senior Wellness), # 360 tablet, 3 Refills, Maintenance, 08/11/21 17:02:00 EST, Tablet, [facility]/pharmacy #[id number], Partial fill upon patient request if the prescription is for a schedule II opioid drug., 2... Start Date: 08/11/21 Stop Date: 08/06/22 Status: Ordered calcium carbonate 600 mg oral tablet 1 tablet = 600 mg, By Mouth, 2 times a day, # 180 tablet, 2 Refills, Maintenance, 01/06/23 14:02:00EDT, Tablet, [facility]/pharmacy #[id number], Partial fill upon patient request if the prescription is for a schedule II opioid drug., 155, cm, 02/23/22 8:04:00 EDT... Start Date: 01/06/23 Stop Date: 10/03/23 Status: Ordered Centrum Silver Ultra Women's oral tablet 1 tablet, By Mouth, Daily, 0 Refills, Maintenance, 07/09/18 8:43:55 EST Start Date: 07/09/18 Status: Ordered [facility] SENIOR PROBIOTIC CAPSULE TAKE 2 CAPSULES BY MOUTH TWICE A DAY Start Date: 11/01/21 Status: Ordered [facility] Senior Probiotic Capsule [facility] Senior Probiotic Capsule, See Instructions, [...] 450 mL, 5 Refills, 03/02/22 8:08:00 EDT, [facility]/pharmacy #[id number], 155, cm, 02/23/22 8:04:00 [...] Refills, Soft Stop, 03/27/23 18:43:00 EDT, Tablet, [facility]/pharmacy #[id number], Partial fill upon patient request if the prescription is for a schedule II opioid... Start Date: 03/27/23 Status: Ordered fluconazole 150 mg oral tablet 1 tablet = 150 mg, By Mouth, Every week, # 4 tablet, 1 Refills, Soft Stop, 05/26/22 8:59:00 EDT, Tablet, [facility]/pharmacy #[id number], Partial fill upon patient [...] Maintenance,02/15/23 7:44:00 EDT, Route to Pharmacy Electronically, [facility], Partial fill upon patient request if the prescription is for... Start Date: 02/15/23 Stop Date: 11/12/23 Status: Ordered Juzo Compression Hose Juzo Compression Hose, See Instructions, # 2 each, Refills 2, Tot. Refills 2, Maintenance, Juzo Compression Hose 2 pairs blerm-ztf-lnyg Soft Knee FF Petite 20-30 mmHg Silicone, Black Stock Code [id number] I I I Part #[id number] Size I I I SKU... Start Date: 03/12/23 Status: Ordered levothyroxine 0.088 mg oral tablet 1 tablet = 88 mcg, By Mouth, Daily, # 90 tablet, 3 Refills, Maintenance, 03/15/23 17:17:00 EDT, Tablet, [facility], Partial fill upon patient request if the prescription is fora schedule II opioid drug., 155, cm, 03/15/23 17:11... Start Date: 03/15/23 Status: Ordered lisinopril 5 mg oral tablet 1, tablet, By Mouth, Daily, # 90 tablet, Refills 3, Tot. Refills 3, Maintenance, 03/15/23 17:16:00 EDT, Route to Pharmacy Electronically, [facility], 155, cm, 03/15/23 17:11:00EDT, Height, 93.4, kg, 11/01/21 16:52:00 EDT, Dry W... Start Date: 03/15/23 Status: Ordered Mapap 500 mg oral capsule See Instructions, TAKE 2 CAPSULES BY MOUTH 4 TIMES A DAY NEEDED FOR PAIN, # 480 capsule, 0 Refills, Maintenance, 03/12/23 9:16:00 EDT, [facility]/pharmacy #[id number], 155, cm, 10/10/22 13:40:00 EST, Height, 93.4, kg, 11/01/21 16:52:00 EDT, Dry Weight Start Date: 03/12/23 Status: Ordered Power Virginia Lift with [place] split-leg sling Power [place] Lift with [place] split-leg sling, See Instructions, # 1 each, [...] 5 Refills, Maintenance, 12/11/22 17:34:00 EDT, Tablet, [facility]/pharmacy #[id number], Partial fill upon patient [...] Team Personnel Name: Juliann Rich RN Position: [facility] RN Member Role: Primary Care Nurse Name: Elsa Allen NP Position: Reference Physician Member Role: Primary Care Nurse Address: Address: [address] [place] [address] [address] [place] [address]- Name: Emma Mendoza RN Position: [facility] AMB Nurse Member Role: Primary Care Nurse Name: Juan Manuel LIM, Kristen Acosta Position: [facility] Physician - Primary Care Member Role: PCP Address: Address: [address] [place] [address]- Name: Komal Goodrich Position: [facility] Outreach Member Role: Lifetime Consulting Physician Name: Godfrey Cano Position: [facility] RN Member Role: Primary Care Nurse Name: Anette Miranda RN Position: [facility] Onco RN Member Role: Primary Care Nurse Care Team Related Persons Name: DIOMEDES WARNER Address: [address] [place] [address] Name: MOO HOWELL Address: home [address] [place] [address] Name: MARLON GENTILE
--- OUTSIDE RECORDS SUMMARY | 2024-03-17 13:25 | XMS_ITS | Continuity of Care Document ---
Author Organization [facility] Address [address], [address], [address] [place] [address]- Care Team Providers Care Senior Game Developer Name Role Phone Juan Manuel LIM, Kristen Acosta Primary Care Physic juan alberto Encounter [facility] Date(s): 10/05/23 - 11/04/23 [facility] [address], [address], [address] [place] [address]- Allergies, Adverse Reactions, Alerts Substance Reaction Severity Status morphine hives, SOB Active penicillins hive Active Wellbutrin rash Active Reglan Active cannabis (Schedule I substance) itching/vomiting Active Other Environmental Allergy mercury-fillings Active contrast media (iodine-based) itching throughout body Active Immunizations Given and Recorded Vaccine Date Status Refusal Reason SARS-CoV-2(COVID-19)mRNA-LNP vac([id number]) 10/19/23 Recorded SARS-CoV-2(COVID-19)mRNA-LNP vac([id number]) 07/03/23 Recorded RSV vaccine preF3, recombinant 05/19/23 [...] influenza virus vaccine, inactivated 04/26/09 [place]o rded [id number] 12y+ bivalent booster vax 01/23/23 Recorded [id number] 12y+ bivalent booster vax 05/12/22 Recorded pneumococcal 20-valent conjugate vaccine 05/30/22 Recorded SARS-CoV-2 mRNA (behglbx-tqtc-ucikm) vax 03/10/22 Recorded SARS-CoV-2 mRNA (mxnxeta-edyp-besxs) vax 10/04/21 Recorded SARS-CoV-2 (COVID-19) mRNA BNT-162b2 [...] 1 Refills, Maintenance, 08/01/23 13:53:00 EST, Tablet, [id number], Partial fill upon patient request if the prescription is for a schedule II opioid drug., 155, cm, 05/28/23 11:02:00 E... Start Date: 08/01/23 Status: Ordered baclofen 20 mg oral tablet 20 mg, 1, tablet, By Mouth, 3 times a day, for 90 days, # 270 tablet, Refills 2, Tot. Refills 2, Hard Stop 06/01/24 12:44:00 EDT, 09/05/23 12:44:00 EST, Route to Pharmacy Electronically, [facility], Partial fill upon patient req... Start Date: 09/05/23 Stop Date: 06/01/24 Status: Ordered baclofen 20 mg oral tablet 20 mg, 1, tablet, By Mouth, 3 times a day, # 270 tablet, Refills 2, Tot. Refills 2, Maintenance, 06/01/24 12:44:00 EDT, Route to Pharmacy Electronically, [facility][id number], Partial fill upon patientrequest if the prescription is for a schedule II op... Start Date: 06/01/24 Stop Date: 02/26/25 Status: Ordered baclofen 20 mg oral tablet 20 mg, 1, tablet, By Mouth, 3 times a day, for 90 days, # 270 tablet, Refills 2, Tot. Refills 2, Hard Stop 06/01/24 12:44:00 EDT, 09/05/23 12:44:00 EST, Route to Pharmacy Electronically, [facility][id number], Partial fill upon patient request if the pre... Start Date: 09/05/23 Stop Date: 06/01/24 Status: Ordered bifidobacterium-lactobacillus oral tablet 2 tablet, By Mouth, 2 times a day, [facility] Brand please ([facility]), # 360 tablet, 3 Refills, Maintenance, 08/11/21 17:02:00 EST, Tablet, [facility] #[id number], Partial fill upon patient request if the prescription is for a schedule II opioid drug., 2... Start Date: 08/11/21 Stop Date: 08/06/22 Status: Ordered calcium carbonate 600 mg oral tablet 1 tablet = 600 mg, By Mouth, 2 times a day, # 180 tablet, 2 Refills, Maintenance, 01/06/23 14:02:00EDT, Tablet, [facility] #[id number], Partial fill upon patient request if the prescription is for a schedule II opioid drug., 155, cm, 02/23/22 8:04:00 EDT... Start Date: 01/06/23 Stop Date: 10/03/23 Status: Ordered Centrum Silver Ultra Women's oral tablet 1 tablet, By Mouth, Daily, 0 Refills, Maintenance, 07/09/18 8:43:55 EST Start Date: 07/09/18 Status: Ordered [facility] SENIOR PROBIOTIC CAPSULE TAKE 2 CAPSULES BY MOUTH TWICE A DAY Start Date: 11/01/21 Status: Ordered [facility] Senior Probiotic Capsule [facility] Senior Probiotic Capsule, See Instructions, # 180 [...] 450 mL, 5 Refills, 03/02/22 8:08:00 EDT, [id number], 155, cm, 02/23/22 8:04:00 EDT, [...] Refills, Soft Stop, 03/27/23 18:43:00 EDT, Tablet, [facility] #[id number], Partial fill upon patient request if the prescription is for a schedule II opioid... Start Date: 03/27/23 Status: Ordered fluconazole 150 mg oral tablet 1 tablet = 150 mg, By Mouth, Every week, # 4 tablet, 1 Refills, Soft Stop, 05/26/22 8:59:00 EDT, Tablet, [facility] #[id number], Partial fill upon patient request [...] Daily, # 90 tablet, Refills 1, Maintenance, 07/03/23 1:01:00 EST, Route to Pharmacy Electronically, [facility], 155, cm, 05/28/23 11:02:00 EDT, Height, 93.4, kg, 11/01/21 16:52:00 EDT, Dry Weight Start Date: 07/03/23 Status: Ordered gabapentin 300 mg oral capsule See Instructions, TAKE 1 CAPSULE TWICE DAILY. IF SYMPTOMS CONTINUE MAY INCREASE DOSE AFTER 2 WEEKS TO 1 CAPSULE 3 TIMES A DAY, # 90 capsule, Refills 2, Tot. Refills 2, Maintenance, 10/05/23 14:43:00 EST, Instructions Replace Required Details, Route to... Start Date: 10/05/23 Status: Ordered gabapentin 300 mg oral capsule 300 mg, 1, capsule, By Mouth, 3 times a day, # 270 capsule, Refills 2, Tot. Refills 2, Maintenance,02/15/23 7:44:00 EDT, Route to Pharmacy Electronically, [facility], Partial fill upon patient request if the prescription is for... Start Date: 02/15/23 Stop Date: 11/12/23 Status: Ordered Juzo Compression Hose Juzo Compression Hose, See Instructions, # 2 each, Refills 2, Tot. Refills 2, Maintenance, Juzo Compression Hose 2 pairs mhwzb-itb-qecz Soft Knee FF Petite 20-30 mmHg Silicone, Black Stock Code [id number] I I I Part #[id number] Size I I I SKU... Start Date: 03/12/23 Status: Ordered levothyroxine 0.088 mg oral tablet 1 tablet = 88 mcg, By Mouth, Daily, # 90 tablet, 1 Refills, Maintenance, 10/01/23 17:11:00 EST, Tablet, [facility] #[id number], Partial fill upon patient request if the prescription is for a schedule II opioid drug., 155, cm, 05/28/23 11:02:00 EDT, Height... Start Date: 10/01/23 Status: Ordered lisinopril 5 mg oral tablet 1, tablet, By Mouth, Daily, # 90 tablet, Refills 1, Tot. Refills 1, Maintenance, 10/01/23 17:15:00 EST, Route to Pharmacy Electronically, [id number], 155, cm, 05/28/23 11:02:00 EDT, Height, 93.4, kg, 11/01/21 16:52:00 EDT, Dry Weight Start Date: 10/01/23 Status: Ordered Mapap 500 mg oral capsule See Instructions, TAKE 2 CAPSULES BY MOUTH 4 TIMES A DAY NEEDED FOR PAIN, # 480 capsule, 0 Refills, Maintenance, 10/01/23 17:46:00 EST, [facility] #[id number], 155, cm, 05/28/23 11:02:00 EDT, Height, 93.4, kg, 11/01/21 16:52:00 EDT, Dry Weight Start Date: 10/01/23 Status: Ordered Power Virginia Lift with [place]ideman split-leg sling Power Virginia Lift with Wideman split-leg sling, See Instructions, # 1 each, Refills 0, Tot. Refills 0, Maintenance, Dx: Multiple Sclerosis induced Paraplegia Length of time needed: indefinite Purpose: Transfer to/fr hosp bed to wheelchair, commode,... Start Date: 08/16/21 Status: Ordered Provigil 200 mg oral tablet 1 tablet = 200 mg, By Mouth, 2 times a day, takes in am and lunchtime brand name only - dispense aswritten Brand name only, # 56 tablet, 0 Refills, Maintenance, 08/08/23 18:05:00 EST, Tablet, [facility] #[id number], Partial fill upon patient request if... Start Date: 08/08/23 Stop Date: 09/05/23 Status: Ordered Provigil 200 mg oral tablet 1 tablet = 200 mg, By Mouth, 2 times a day, for 28 days, takes in am and lunchtime brand name only - dispense as written Brand name only, # 56 tablet, 3 Refills, Hard Stop 03/14/24 2:50:00 EDT, 11/23/23 2:50:00 EDT, Tablet, [facility] #[id number], Part[place]... Start Date: 11/23/23 Stop Date: 03/14/24 Status: Ordered Provigil 200 mg oral tablet 1 tablet = 200 mg, By Mouth, 2 times a day, for 28 days, takes in am and lunchtime brand name only - dispense as written Brand name only, # 56 tablet, 3 Refills, Hard Stop 11/23/23 2:50:00 EDT, 08/03/23 2:50:00 EST, Tablet, [facility]... Start Date: 08/03/23 Stop Date: 11/23/23 Status: Ordered Repair for hospital bed Repair [...] 90 capsule, 1 Refills, 12/11/22 15:16:00 EDT, [id number], 155, cm, 10/10/22 13:40:00 EST, [...] Team Personnel Name: Juliann Rich RN Position: [facility] RN Member Role: Primary Care Nurse Name: Elsa Allen NP Position: [facility] Outreach Member Role: Primary Care Nurse Address: Address: [address] [place] [address] SINDY Padron [address]- Name: Emma Mendoza RN Position: [facility] Nurse Member Role: Primary Care Nurse Name: Juan Manuel LIM, Kristen Acosta Position: [facility] Physician - Primary Care Member Role: PCP Address: Address: [address] [place] [address] Name: Komal Goodrich Position: [facility] Outreach Member Role: Lifetime Consulting Physician Name: Godfrey Cano Position: [facility] RN Member Role: Primary Care Nurse Name: Anette Miranda RN Position: [facility] Onco RN Member Role: Primary Care Nurse Care Team Related Persons Name: DIOMEDES WARNER Address: home [address] [place] [address] Name: MOO HOWELL Address: home [address] [place] [address] Name: MARLON GENTILE
--- OUTSIDE RECORDS SUMMARY | 2024-03-17 13:25 | XMS_ITS | Continuity of Care Document ---
Author Organization [facility] Address [address] [place] [address]- Care Team Providers Care Sand Mixer Name Role Phone Juan Manuel LIM, Kristen Acosta Primary Care Physic juan alberto Encounter [facility] Date(s): 10/11/22 - 11/10/22 [facility] [address] [place] [address]- Allergies, Adverse Reactions, Alerts Substance Reaction Severity Status morphine hives, SOB Active penicillins hive Active Wellbutrin rash Active Reglan Active cannabis (Schedule I substance) itching/vomiting Active Other Environmental Allergy mercury-fillings Active contrast media (iodine-based) itching throughout body Active Immunizations Given and Recorded Vaccine Date Status Refusal Reason pneumococcal 20-valent conjugate vaccine 05/30/22 Recorded [id number] 12y+ bivalent booster vax 05/12/22 Recorded influenza [...] vaccine, inactivated 04/26/09 [place]o rded SARS-CoV-2 mRNA (ewygakr-upjp-bkxtu) vax 03/10/22 Recorded SARS-CoV-2 mRNA (dygbhga-xeyt-euxmu) vax 10/04/21 Recorded SARS-CoV-2 (COVID-19) mRNA BNT-162b2 [...] tablet, 0 Refills, Maintenance, 10/05/22 9:35:00EST, Tablet, [facility]/pharmacy #[id number], Partial fill upon patient request if the prescription is for a schedule II opioid drug., 155, cm, 09/26/22 14:02:00 ES... Start Date: 10/05/22 Status: Ordered baclofen 20 mg oral tablet 20 mg, 1, tablet, By Mouth, 3 times a day, # 270 tablet, Refills 2, Tot. Refills 2, Maintenance, 12/09/22 12:44:00 EDT, Route to Pharmacy Electronically, [facility], Partial fill upon patient request if the prescription is for a... Start Date: 12/09/22 Stop Date: 09/05/23 Status: Ordered baclofen 20 mg oral tablet 20 mg, 1, tablet, By Mouth, 3 times a day, for 90 days, # 270 tablet, Refills 2, Tot. Refills 2, Hard Stop 12/09/22 12:44:00 EDT, 03/14/22 12:44:00 EDT, Route to Pharmacy Electronically, [facility]/pharmacy#[id number], Partial fill upon patient request if the pre... Start Date: 03/14/22 Stop Date: 12/09/22 Status: Ordered bifidobacterium-lactobacillus oral tablet 2 tablet, By Mouth, 2 times a day, [facility] Brand please ([facility]), # 360 tablet, 3 Refills, Maintenance, 08/11/21 17:02:00 EST, Tablet, [facility]/pharmacy #[id number], Partial fill upon patient request if the prescription is for a schedule II opioid drug., 2... Start Date: 08/11/21 Stop Date: 08/06/22 Status: Ordered calcium carbonate 600 mg oral tablet 1 tablet = 600 mg, By Mouth, 2 times a day, # 180 tablet, 2 Refills, Maintenance, 01/06/23 14:02:00EDT, Tablet, [facility]/pharmacy #[id number], Partial fill upon patient [...] 01/06/23 14:02:00 EDT, 01/11/22 14:02:00 EDT, Tablet, [facility], Partial fill upon patient request if the prescription is for a schedul... Start Date: 01/11/22 Stop Date: 01/06/23 Status: Ordered Centrum Silver Ultra Women's oral tablet 1 tablet, By Mouth, Daily, 0 Refills, Maintenance, 07/09/18 8:43:55 EST Start Date: 07/09/18 Status: Ordered [facility] SENIOR PROBIOTIC CAPSULE TAKE 2 CAPSULES BY MOUTH TWICE A DAY Start Date: 11/01/21 Status: Ordered [facility] Senior Probiotic Capsule [facility] Senior Probiotic Capsule, See Instructions, [...] 450 mL, 5 Refills, 03/02/22 8:08:00 EDT, [facility]/pharmacy #[id number], 155, cm, 02/23/22 8:04:00 [...] Refills, Soft Stop, 05/26/22 8:59:00 EDT, Tablet, [facility]/pharmacy #[id number], Partial fill upon patient [...] 01/02/22 9:03:00 EDT, Route to Pharmacy Electronically, [facility], Partial fill upon patient [...] 01/11/22 13:45:00 EDT, [facility] Start Date: 01/11/22 Status: Ordered gabapentin 300 mg oral capsule 300 mg, 1, capsule, By Mouth, 3 times a day, for 90 days, # 270 capsule, Refills 2, Tot. Refills 2,Hard Stop 02/15/23 7:44:00 EDT, 05/21/22 7:44:00 EDT, Route to Pharmacy Electronically, [facility], Partial fill upon patient re... Start Date: 05/21/22 Stop Date: 02/15/23 Status: Ordered gabapentin 300 mg oral capsule 300 mg, 1, capsule, By Mouth, 3 times a day, # 270 capsule, Refills 2, Tot. Refills 2, Maintenance,02/15/23 7:44:00 EDT, Route to Pharmacy Electronically, [facility], Partial fill upon patient request if the prescription is for... Start Date: 02/15/23 Stop Date: 11/12/23 Status: Ordered Juzo Compression Hose Juzo Compression Hose, See Instructions, # 2 each, Refills 2, Tot. Refills 2, Maintenance, 20-30mmghg FF Petite (short),Kwezc-eni-xvvb, soft knee, black silicone Stock code [id number] Part #[id number], Size III. [facility] [id number], 12/07/21 11:32:00 EDT,... Start Date: 12/07/21 Status: Ordered levothyroxine 0.088 mg oral tablet 1 tablet = 88 mcg, By Mouth, Daily, # 90 tablet, 1 Refills, Maintenance, 09/08/22 14:26:00 EST, Tablet, [facility], Partial fill upon patient request if the prescription is fora schedule II opioid drug., 155, cm, 07/12/22 14:10... Start Date: 09/08/22 Status: Ordered lisinopril 5 mg oral tablet 5 mg, 1, tablet, By Mouth, Daily, # 90 tablet, Refills 3, Tot. Refills 3, Maintenance, 02/24/22 15:53:00 EDT, Route to Pharmacy Electronically, [facility]/pharmacy #[id number], Partial fill upon patient request if the prescription is for a schedule II opioid drug.... Start Date: 02/24/22 Status: Ordered lisinopril 5 mg oral tablet See Instructions, TAKE 1 TABLET DAILY, # 90 tablet, Refills 1, Maintenance, 09/24/22 19:24:00 EST, Instructions Replace Required Details, Route to Pharmacy Electronically, [facility], 155, cm, 07/12/22 14:10:00 EST, Height, 93.4, k... Start Date: 09/24/22 Status: Ordered Mapap 500 mg oral capsule See Instructions, TAKE 2 CAPSULES BY MOUTH 4 TIMES A DAY NEEDED FOR PAIN, # 480 capsule, 3 Refills, Maintenance, 06/04/22 16:03:00 EDT, [id number], 155, cm, 05/25/22 13:44:00 EDT, Height, 93.4, kg, 11/01/21 16:52:00 EDT, Dry Weight Start Date: 06/04/22 Status: Ordered Power Virginia Lift with [place] split-leg sling Power Virginia Lift with [place] split-leg sling, See Instructions, # 1 each, [...] 5 Refills, Maintenance, 10/05/22 17:39:00 EST, Tablet, [facility]/pharmacy #[id number], Partial fill upon patient [...] 90 capsule, 2 Refills, 02/28/22 8:13:00 EDT, [facility]/pharmacy #[id number], 155,cm, 02/23/22 8:04:00 EDT, Height, 93.4, kg, 11/01/21 16:52:00 EDT, Dry Weight Start Date: 02/28/22 Status: Ordered Xarelto 20 mg oral tablet 1 tablet = 20 mg, By Mouth, Daily at supper, # 90 tablet, 3 Refills, Maintenance, 02/01/22 12:42:00EDT, Tablet, [facility], Partial fill upon patient request if [...] Team Personnel Name: Juliann Rich RN Position: [facility] RN Member Role: Primary Care Nurse Name: Elsa Allen NP Position: Reference Physician Member Role: Primary Care Nurse Address: Address: [address] [place] [address] [address] [place] [address]- Name: Emma Mendoza RN Position: [facility] RN Member Role: Primary Care Nurse Name: Kristen Zambrano MD Position: [facility] Primary Care Physician Member Role: PCP Address: Address: [address] [place] [address]- Name: Jade Medina Position: S RN Member Role: Primary Care Nurse Name: Komal Goodrich Position: [facility] Outreach Member Role: Lifetime Consulting Physician Name: Godfrey Cano Position: [facility] RN Member Role: Primary Care Nurse Name: Anette Miranda RN Position: [facility] Onco RN Member Role: Primary Care Nurse Care Team Related Persons Name: DIOMEDES WARNER Address: home [address] [place] [address] Name: MOO HOWELL Address: [address] [place] [address] Name: MARLON GENTILE
--- OUTSIDE RECORDS SUMMARY | 2024-03-17 13:26 | XMS_ITS | Continuity of Care Document ---
Author Organization [facility] [employer] [employer] Address [address], [address] [place] [address]- Care Team Providers Care Melting Supervisor Name Role Phone Juan Manuel LIM, Kristen Acosta Primary Care Physic juan alberto Encounter [facility] Date(s): 03/23/23 - 04/22/23 [facility] [employer] [employer] [address], [address] [place] [address]- Allergies, Adverse Reactions, Alerts Substance Reaction Severity Status morphine hives, SOB Active Wellbutrin rash Active Other Environmental Allergy mercury-fillings Active contrast media (iodine-based) itching throughout body Active cannabis (Schedule I substance) itching/vomiting Active penicillins hive Active Reglan Active Immunizations Given and Recorded Vaccine Date Status Refusal Reason pneumococcal 20-valent conjugate vaccine 05/30/22 Recorded [id number] 12y+ bivalent booster vax 05/12/22 Recorded influenza [...] vaccine, inactivated 04/26/09 [place] rded SARS-CoV-2 mRNA (isywxuk-bkvy-rvpbs) vax 03/10/22 Recorded SARS-CoV-2 mRNA (zcawxle-jkea-dikbl) vax 10/04/21 Recorded SARS-CoV-2 (COVID-19) mRNA BNT-162b2 [...] 1 Refills, Maintenance, 12/11/22 17:34:00 EDT, Tablet, [facility]/pharmacy #[id number], Partial fill upon patient request if the prescription is for a schedule II opioid drug., 155, cm, 10/10/22 13:40:00 E... Start Date: 12/11/22 Status: Ordered baclofen 20 mg oral tablet 20 mg, 1, tablet, By Mouth, 3 times a day, # 270 tablet, Refills 2, Tot. Refills 2, Maintenance, 12/09/22 12:44:00 EDT, Route to Pharmacy Electronically, [facility], Partial fill upon patient request if the prescription is for a... Start Date: 12/09/22 Stop Date: 09/05/23 Status: Ordered bifidobacterium-lactobacillus oral tablet 2 tablet, By Mouth, 2 times a day, [facility] Brand please ([facility] Wellness), # 360 tablet, 3 Refills, Maintenance, 08/11/21 17:02:00 EST, Tablet, [facility]/pharmacy #[id number], Partial fill upon patient request if the prescription is for a schedule II opioid drug., 2... Start Date: 08/11/21 Stop Date: 08/06/22 Status: Ordered calcium carbonate 600 mg oral tablet 1 tablet = 600 mg, By Mouth, 2 times a day, # 180 tablet, 2 Refills, Maintenance, 01/06/23 14:02:00EDT, Tablet, [facility]/pharmacy #[id number], Partial fill upon patient request if the prescription is for a schedule II opioid drug., 155, cm, 02/23/22 8:04:00 EDT... Start Date: 01/06/23 Stop Date: 10/03/23 Status: Ordered Centrum Silver Ultra Women's oral tablet 1 tablet, By Mouth, Daily, 0 Refills, Maintenance, 07/09/18 8:43:55 EST Start Date: 07/09/18 Status: Ordered [facility] SENIOR PROBIOTIC CAPSULE TAKE 2 CAPSULES BY MOUTH TWICE A DAY Start Date: 11/01/21 Status: Ordered [facility] Senior Probiotic Capsule [facility] Senior Probiotic Capsule, See Instructions, # [...] 450 mL, 5 Refills, 03/02/22 8:08:00 EDT, [facility]/pharmacy #[id number], 155, cm, 02/23/22 8:04:00 EDT, [...] Refills, Soft Stop, 03/27/23 18:43:00 EDT, Tablet, [facility]/pharmacy #[id number], Partial fill upon patient request if the prescription is for a schedule II opioid... Start Date: 03/27/23 Status: Ordered fluconazole 150 mg oral tablet 1 tablet = 150 mg, By Mouth, Every week, # 4 tablet, 1 Refills, Soft Stop, 05/26/22 8:59:00 EDT, Tablet, [facility]/pharmacy #[id number], Partial fill upon [...] Maintenance,02/15/23 7:44:00 EDT, Route to Pharmacy Electronically, [facility], Partial fill upon patient request if the prescription is for... Start Date: 02/15/23 Stop Date: 11/12/23 Status: Ordered Juzo Compression Hose Juzo Compression Hose, See Instructions, # 2 each, Refills 2, Tot. Refills 2, Maintenance, Juzo Compression Hose 2 pairs yfxpb-nem-rtht Soft Knee FF Petite 20-30 mmHg Silicone, Black Stock Code [id number] I I I Part #[id number] Size I I I SKU... Start Date: 03/12/23 Status: Ordered levothyroxine 0.088 mg oral tablet 1 tablet = 88 mcg, By Mouth, Daily, # 90 tablet, 3 Refills, Maintenance, 03/15/23 17:17:00 EDT, Tablet, [facility], Partial fill upon patient request if the prescription is fora schedule II opioid drug., 155, cm, 03/15/23 17:11... Start Date: 03/15/23 Status: Ordered lisinopril 5 mg oral tablet 1, tablet, By Mouth, Daily, # 90 tablet, Refills 3, Tot. Refills 3, Maintenance, 03/15/23 17:16:00 EDT, Route to Pharmacy Electronically, [facility], 155, cm, 03/15/23 17:11:00EDT, Height, 93.4, kg, 11/01/21 16:52:00 EDT, Dry W... Start Date: 03/15/23 Status: Ordered Mapap 500 mg oral capsule See Instructions, TAKE 2 CAPSULES BY MOUTH 4 TIMES A DAY NEEDED FOR PAIN, # 480 capsule, 0 Refills, Maintenance, 03/12/23 9:16:00 EDT, [facility]/pharmacy #[id number], 155, cm, 10/10/22 13:40:00 EST, Height, 93.4, kg, 11/01/21 16:52:00 EDT, Dry Weight Start Date: 03/12/23 Status: Ordered Power Virginia Lift with Rolfe split-leg sling Power Virginia Lift with Rolfe split-leg sling, See Instructions, # 1 each, [...] 5 Refills, Maintenance, 12/11/22 17:34:00 EDT, Tablet, [facility]/pharmacy #[id number], Partial fill upon [...] Team Personnel Name: Juliann Rich RN Position: [facility] RN Member Role: Primary Care Nurse Name: Elsa Allen NP Position: Reference Physician Member Role: Primary Care Nurse Address: Address: [address] [place] [address] [address] [place] [address]- Name: Emma Mendoza RN Position: [facility] AMB Nurse Member Role: Primary Care Nurse Name: Juan Manuel LIM, Kristen Acosta Position: [facility] Physician - Primary Care Member Role: PCP Address: Address: [address] [place] [id number]- Name: Komal Goodrich Position: [facility] Outreach Member Role: Lifetime Consulting Physician Name: Godfrey Cano Position: [facility] RN Member Role: Primary Care Nurse Name: Anette Miranda RN Position: [facility] Onco RN Member Role: Primary Care Nurse Care Team Related Persons Name: DIOMEDES WARNER Address: [address] [place] [address] Name: MOO HOWELL Address: [address] [place] [address] Name: MARLON GENTILE
--- OUTSIDE RECORDS SUMMARY | 2024-03-17 13:26 | XMS_ITS | Continuity of Care Document ---
Author Organization [facility] [place] Address [address] [place] [address]- Care Team Providers Care Office System Analyst Name Role Phone Juan Manuel LIM, Kristen Acosta Primary Care Physic juan alberto Encounter [facility] Date(s): 05/08/23 - 06/07/23 [facility] [address] [place] [address]- Allergies, Adverse Reactions, Alerts Substance Reaction Severity Status morphine hives, SOB Active penicillins hive Active Wellbutrin rash Active Reglan Active cannabis (Schedule I substance) itching/vomiting Active Other Environmental Allergy mercury-fillings Active contrast media (iodine-based) itching throughout body Active Immunizations Given and Recorded Vaccine Date Status Refusal Reason pneumococcal 20-valent conjugate vaccine 05/30/22 Recorded [id number] 12y+ bivalent booster vax 05/12/22 Recorded influenza [...] vaccine, inactivated 04/26/09 Arnoldo rded SARS-CoV-2 mRNA (ouxkqvo-chcp-jgtra) vax 03/10/22 Recorded SARS-CoV-2 mRNA (bwacafh-ppwi-skcsf) vax 10/04/21 Recorded SARS-CoV-2 (COVID-19) mRNA BNT-162b2 [...] 1 Refills, Maintenance, 12/11/22 17:34:00 EDT, Tablet, [facility]/pharmacy #[id number], Partial fill upon patient request if the prescription is for a schedule II opioid drug., 155, cm, 10/10/22 13:40:00 E... Start Date: 12/11/22 Status: Ordered baclofen 20 mg oral tablet 20 mg, 1, tablet, By Mouth, 3 times a day, # 270 tablet, Refills 2, Tot. Refills 2, Maintenance, 12/09/22 12:44:00 EDT, Route to Pharmacy Electronically, [facility], Partial fill upon patient request if the prescription is for a... Start Date: 12/09/22 Stop Date: 09/05/23 Status: Ordered bifidobacterium-lactobacillus oral tablet 2 tablet, By Mouth, 2 times a day, [facility] Brand please (Senior Wellness), # 360 tablet, 3 Refills, Maintenance, 08/11/21 17:02:00 EST, Tablet, [facility]/pharmacy #[id number], Partial fill upon patient request if the prescription is for a schedule II opioid drug., 2... Start Date: 08/11/21 Stop Date: 08/06/22 Status: Ordered calcium carbonate 600 mg oral tablet 1 tablet = 600 mg, By Mouth, 2 times a day, # 180 tablet, 2 Refills, Maintenance, 01/06/23 14:02:00EDT, Tablet, [facility]/pharmacy #[id number], Partial fill upon patient request if the prescription is for a schedule II opioid drug., 155, cm, 02/23/22 8:04:00 EDT... Start Date: 01/06/23 Stop Date: 10/03/23 Status: Ordered Centrum Silver Ultra Women's oral tablet 1 tablet, By Mouth, Daily, 0 Refills, Maintenance, 07/09/18 8:43:55 EST Start Date: 07/09/18 Status: Ordered [facility] SENIOR PROBIOTIC CAPSULE TAKE 2 CAPSULES BY MOUTH TWICE A DAY Start Date: 11/01/21 Status: Ordered [facility] Senior Probiotic Capsule [facility] Senior Probiotic Capsule, See [...] 450 mL, 5 Refills, 03/02/22 8:08:00 EDT, [facility]/pharmacy #[id number], 155, cm, 02/23/22 [...] Refills, Soft Stop, 03/27/23 18:43:00 EDT, Tablet, [facility]/pharmacy #[id number], Partial fill upon patient request if the prescription is for a schedule II opioid... Start Date: 03/27/23 Status: Ordered fluconazole 150 mg oral tablet 1 tablet = 150 mg, By Mouth, Every week, # 4 tablet, 1 Refills, Soft Stop, 05/26/22 8:59:00 EDT, Tablet, [facility]/pharmacy #[id number], Partial fill upon [...] to Pharmacy Electronically, [facility], Partial fill upon patient request if the prescription is for... Start Date: 02/15/23 Stop Date: 11/12/23 Status: Ordered Juzo Compression Hose Juzo Compression Hose, See Instructions, # 2 each, Refills 2, Tot. Refills 2, Maintenance, Juzo Compression Hose 2 pairs [id number]-ophd Soft Knee FF Petite 20-30 mmHg Silicone, Black Stock Code [id number] I I I Part #[id number] Size I I I SKU... Start Date: 03/12/23 Status: Ordered levothyroxine 0.088 mg oral tablet 1 tablet = 88 mcg, By Mouth, Daily, # 90 tablet, 3 Refills, Maintenance, 03/15/23 17:17:00 EDT, Tablet, [facility], Partial fill upon patient request if the prescription is fora schedule II opioid drug., 155, cm, 03/15/23 17:11... Start Date: 03/15/23 Status: Ordered lisinopril 5 mg oral tablet 1, tablet, By Mouth, Daily, # 90 tablet, Refills 3, Tot. Refills 3, Maintenance, 03/15/23 17:16:00 EDT, Route to Pharmacy Electronically, [facility], 155, cm, 03/15/23 17:11:00EDT, Height, 93.4, kg, 11/01/21 16:52:00 EDT, Dry W... Start Date: 03/15/23 Status: Ordered Mapap 500 mg oral capsule See Instructions, TAKE 2 CAPSULES BY MOUTH 4 TIMES A DAY NEEDED FOR PAIN, # 480 capsule, 0 Refills, Maintenance, 03/12/23 9:16:00 EDT, [facility]/pharmacy #[id number], 155, cm, 10/10/22 13:40:00 EST, Height, 93.4, kg, 11/01/21 16:52:00 EDT, Dry Weight Start Date: 03/12/23 Status: Ordered Power [place] Lift with [place] split-leg sling Power [place] Lift with [place] split-leg sling, See Instructions, # 1 each, [...] 5 Refills, Maintenance, 12/11/22 17:34:00 EDT, Tablet, [facility]/pharmacy #[id number], Partial fill upon [...] Team Personnel Name: Juliann Rich RN Position: [facility] RN Member Role: Primary Care Nurse Name: Elsa Allen NP Position: Reference Physician Member Role: Primary Care Nurse Address: Address: [address] [place] [address] [address] [place] [address]- Name: Emma Mendoza RN Position: [facility] AMB Nurse Member Role: Primary Care Nurse Name: Juan Manuel LIM, Kristen Acosta Position: [facility] Physician - Primary Care Member Role: PCP Address: Address: [address] [address]- Name: Komal Goodrich Position: [facility] Outreach Member Role: Lifetime Consulting Physician Name: Godfrey Cano Position: [facility] RN Member Role: Primary Care Nurse Name: Anette Miranda RN Position: [facility] Onco RN Member Role: Primary Care Nurse Care Team Related Persons Name: DIOMEDES WARNER Address: home [address] [place] [address] Name: MOO HOWELL Address: [address] [place] [address] Name: MARLON GENTILE
--- OUTSIDE RECORDS SUMMARY | 2024-03-17 13:26 | XMS_ITS | Continuity of Care Document ---
Author Organization [facility] Address [address] [place] [address]- Care Team Providers Care Signals Analyst Name Role Phone Juan Manuel LIM, Kristen Acosta Primary Care Physic juan alberto Encounter [facility] Date(s): 11/03/22 - 12/03/22 [facility] [address] [place] [address]- Allergies, Adverse Reactions, Alerts Substance Reaction Severity Status morphine hives, SOB Active penicillins hive Active Wellbutrin rash Active Reglan Active cannabis (Schedule I substance) itching/vomiting Active Other Environmental Allergy mercury-fillings Active contrast media (iodine-based) itching throughout body Active Immunizations Given and Recorded Vaccine Date Status Refusal Reason pneumococcal 20-valent conjugate vaccine 05/30/22 Recorded [id number] 12y+ bivalent booster vax 05/12/22 Recorded influenza [...] vaccine, inactivated 04/26/09 Arnoldo rded SARS-CoV-2 mRNA (cuiudgo-kuyw-asvzw) vax 03/10/22 Recorded SARS-CoV-2 mRNA (rvcxgyr-amsm-mfekq) vax 10/04/21 Recorded SARS-CoV-2 (COVID-19) mRNA BNT-162b2 [...] tablet, 0 Refills, Maintenance, 10/05/22 9:35:00EST, Tablet, [facility]/pharmacy #[id number], Partial fill upon patient request if the prescription is for a schedule II opioid drug., 155, cm, 09/26/22 14:02:00 ES... Start Date: 10/05/22 Status: Ordered baclofen 20 mg oral tablet 20 mg, 1, tablet, By Mouth, 3 times a day, # 270 tablet, Refills 2, Tot. Refills 2, Maintenance, 12/09/22 12:44:00 EDT, Route to Pharmacy Electronically, [facility], Partial fill upon patient request if the prescription is for a... Start Date: 12/09/22 Stop Date: 09/05/23 Status: Ordered baclofen 20 mg oral tablet 20 mg, 1, tablet, By Mouth, 3 times a day, for 90 days, # 270 tablet, Refills 2, Tot. Refills 2, Hard Stop 12/09/22 12:44:00 EDT, 03/14/22 12:44:00 EDT, [id number] Partial fill upon patient request if the pre... Start Date: 03/14/22 Stop Date: 12/09/22 Status: Ordered bifidobacterium-lactobacillus oral tablet 2 tablet, By Mouth, 2 times a day, [facility] Brand please (Senior Wellness), # 360 tablet, 3 Refills, Maintenance, 08/11/21 17:02:00 EST, Tablet, [facility]/pharmacy #[id number], Partial fill upon patient request if the prescription is for a schedule II opioid drug., 2... Start Date: 08/11/21 Stop Date: 08/06/22 Status: Ordered calcium carbonate 600 mg oral tablet 1 tablet = 600 mg, By Mouth, 2 times a day, # 180 tablet, 2 Refills, Maintenance, 01/06/23 14:02:00EDT, Tablet, [facility]/pharmacy #[id number], Partial fill upon patient [...] 14:02:00 EDT, 01/11/22 14:02:00 EDT, Tablet, [facility], Partial fill upon patient request if the prescription is for a schedul... Start Date: 01/11/22 Stop Date: 01/06/23 Status: Ordered Centrum Silver Ultra Women's oral tablet 1 tablet, By Mouth, Daily, 0 Refills, Maintenance, 07/09/18 8:43:55 EST Start Date: 07/09/18 Status: Ordered [facility] SENIOR PROBIOTIC CAPSULE TAKE 2 CAPSULES BY MOUTH TWICE A DAY Start Date: 11/01/21 Status: Ordered [facility] Senior Probiotic Capsule [facility] Senior Probiotic Capsule, See Instructions, [...] 450 mL, 5 Refills, 03/02/22 8:08:00 EDT, [facility]/pharmacy #[id number], 155, cm, 02/23/22 8:04:00 [...] Refills, Soft Stop, 05/26/22 8:59:00 EDT, Tablet, [facility]/pharmacy #[id number], Partial fill upon patient request if the prescription is for a schedule IIopioid drug., 155, cm, 05/25/22 13:44:00 EDT, Normigh... Start Date: 05/26/22 Status: Ordered fosfomycin 3 [...] 9:03:00 EDT, Route to Pharmacy Electronically, [facility], Partial fill upon patient request [...] 13:45:00 EDT, [facility] Start Date: 01/11/22 Status: Ordered gabapentin 300 mg oral capsule 300 mg, 1, capsule, By Mouth, 3 times a day, for 90 days, # 270 capsule, Refills 2, Tot. Refills 2,Hard Stop 02/15/23 7:44:00 EDT, 05/21/22 7:44:00 EDT, Route to Pharmacy Electronically, [facility], Partial fill upon patient re... Start Date: 05/21/22 Stop Date: 02/15/23 Status: Ordered gabapentin 300 mg oral capsule 300 mg, 1, capsule, By Mouth, 3 times a day, # 270 capsule, Refills 2, Tot. Refills 2, Maintenance,02/15/23 7:44:00 EDT, Route to Pharmacy Electronically, [facility], Partial fill upon patient request if the prescription is for... Start Date: 02/15/23 Stop Date: 11/12/23 Status: Ordered Juzo Compression Hose Juzo Compression Hose, See Instructions, # 2 each, Refills 2, Tot. Refills 2, Maintenance, 20-30mmghg FF Petite (short),Infim-lpq-rlvh, soft knee, black silicone Stock code [id number] Part #[id number], Size III. [facility] [id number], 12/07/21 11:32:00 EDT,... Start Date: 12/07/21 Status: Ordered levothyroxine 0.088 mg oral tablet 1 tablet = 88 mcg, By Mouth, Daily, # 90 tablet, 1 Refills, Maintenance, 09/08/22 14:26:00 EST, Tablet, [facility], Partial fill upon patient request if the prescription is fora schedule II opioid drug., 155, cm, 07/12/22 14:10... Start Date: 09/08/22 Status: Ordered lisinopril 5 mg oral tablet 5 mg, 1, tablet, By Mouth, Daily, # 90 tablet, Refills 3, Tot. Refills 3, Maintenance, 02/24/22 15:53:00 EDT, Route to Pharmacy Electronically, [facility]/pharmacy #[id number], Partial fill upon patient request if the prescription is for a schedule II opioid drug.... Start Date: 02/24/22 Status: Ordered lisinopril 5 mg oral tablet See Instructions, TAKE 1 TABLET DAILY, # 90 tablet, Refills 1, Maintenance, 09/24/22 19:24:00 EST, Instructions Replace Required Details, Route to Pharmacy Electronically, [facility], 155, cm, 07/12/22 14:10:00 EST, Height, 93.4, k... Start Date: 09/24/22 Status: Ordered Mapap 500 mg oral capsule See Instructions, TAKE 2 CAPSULES BY MOUTH 4 TIMES A DAY NEEDED FOR PAIN, # 480 capsule, 3 Refills, Maintenance, 06/04/22 16:03:00 EDT, [id number], 155, cm, 05/25/22 13:44:00 EDT, Height, 93.4, kg, 11/01/21 16:52:00 EDT, Dry Weight Start Date: 06/04/22 Status: Ordered Power [place] Lift with [place] split-leg sling Power [place] Lift with [place] split-leg sling, See Instructions, # 1 each, [...] 5 Refills, Maintenance, 10/05/22 17:39:00 EST, Tablet, [facility]/pharmacy #[id number], Partial fill upon patient [...] 90 capsule, 2 Refills, 02/28/22 8:13:00 EDT, [facility]/pharmacy #[id number], 155,cm, 02/23/22 8:04:00 EDT, Height, 93.4, kg, 11/01/21 16:52:00 EDT, Dry Weight Start Date: 02/28/22 Status: Ordered Xarelto 20 mg oral tablet 1 tablet = 20 mg, By Mouth, Daily at supper, # 90 tablet, 3 Refills, Maintenance, 02/01/22 12:42:00EDT, Tablet, [facility], Partial fill upon patient request [...] Team Personnel Name: Juliann Rich RN Position: [facility] RN Member Role: Primary Care Nurse Name: Elsa Allen NP Position: Reference Physician Member Role: Primary Care Nurse Address: Address: [address] [place] [address] [address] [place], [place] [address] Name: Emma Mendoza RN Position: [facility] RN Member Role: Primary Care Nurse Name: Juan Manuel LIM, Kristen Acosta Position: [facility] Primary Care Physician Member Role: PCP Address: Address: [address] [place] [id number] Name: Jade Medina Position: [facility] RN Member Role: Primary Care Nurse Name: Komal Goodrich Position: S Outreach Member Role: Lifetime Consulting Physician Name: Godfrey Cano Position: [facility] RN Member Role: Primary Care Nurse Name: Anette Miranda RN Position: [facility] Onco RN Member Role: Primary Care Nurse Care Team Related Persons Name: DIOMEDES WARNER Address: [address] [place] [address] Name: MOO HOWELL Address: [address] [address] Name: MARLON GENTILE
--- OUTSIDE RECORDS SUMMARY | 2024-03-17 13:26 | XMS_ITS | Continuity of Care Document ---
Author Organization [facility] Address [address] [place] [address]- Care Team Providers Care Automobile Damage Field Appraiser Name Role Phone Juan Manuel LIM, Kristen Acosta Primary Care Physic juan alberto Encounter [facility] Date(s): 03/01/22 - 03/31/22 [facility] [address] [place] [address]- Allergies, Adverse Reactions, Alerts Substance Reaction Severity [...] Arnoldo rded influenza virus vaccine, inactivated 04/19/16 Ranoldo rded influenza virus vaccine, inactivated 04/12/15 Arnoldo rded influenza virus vaccine, inactivated 04/01/13 Arnoldo rded influenza virus vaccine, inactivated 04/01/12 Arnoldo rded influenza virus vaccine, inactivated 04/26/09 Arnoldo rded SARS-CoV-2 mRNA (blncfsd-xmpz-wzcen) vax 03/10/22 Recorded SARS-CoV-2 mRNA (mzzrroi-pqga-ykhhf) vax 10/04/21 Recorded SARS-CoV-2 (COVID-19) mRNA BNT-162b2 [...] 04/19/22 17:46:00 EDT, 08/22/21 17:46:00 EST, Capsule, [facility]/pharmacy #[id number], Partial fill upon patient request if the prescription is for a schedul... Start Date: 08/22/21 Stop Date: 04/19/22 Status: Ordered ascorbic acid 1000 mg oral tablet 1 tablet = 1,000 mg, By Mouth, 2 times a day, # 90 tablet, 2 Refills, Maintenance, 02/28/22 8:12:00EDT, Tablet, [facility]/pharmacy #[id number], Partial fill upon patient request if the prescription is for a schedule II opioid drug., 155, cm, 02/23/22 8:04:00 EDT... Start Date: 02/28/22 Status: Ordered baclofen 20 mg oral tablet 20 mg, 1, tablet, By Mouth, 3 times a day, # 270 tablet, Refills 2, Tot. Refills 2, Maintenance, 12/09/22 12:44:00 EDT, Route to Pharmacy Electronically, [facility], Partial fill upon patient request if the prescription is for a... Start Date: 12/09/22 Stop Date: 09/05/23 Status: Ordered baclofen 20 mg oral tablet 20 mg, 1, tablet, By Mouth, 3 times a day, for 90 days, # 270 tablet, Refills 2, Tot. Refills 2, Hard Stop 12/09/22 12:44:00 EDT, 03/14/22 12:44:00 EDT, Route to Pharmacy Electronically, [facility]/pharmacy#[id number], Partial fill upon patient request if the pre... Start Date: 03/14/22 Stop Date: 12/09/22 Status: Ordered bifidobacterium-lactobacillus oral tablet 2 tablet, By Mouth, 2 times a day, [facility] Brand please (Senior Wellness), # 360 tablet, 3 Refills, Maintenance, 08/11/21 17:02:00 EST, Tablet, [facility]/pharmacy #[id number], Partial fill upon patient request if the prescription is for a schedule II opioid drug., 2... Start Date: 08/11/21 Stop Date: 08/06/22 Status: Ordered calcium carbonate 600 mg oral tablet 1 tablet = 600 mg, By Mouth, 2 times a day, # 180 tablet, 2 Refills, Maintenance, 01/06/23 14:02:00EDT, Tablet, [facility]/pharmacy #[id number], Partial fill upon patient request if the prescription is for a schedule II opioid drug., 155, cm, 02/23/22 8:04:00 EDT... Start Date: 01/06/23 Stop Date: 10/03/23 Status: Ordered calcium carbonate 600 mg oral tablet 1 tablet = 600 mg, By Mouth, 2 times a day, for 90 days, # 180 tablet, 3 Refills, Hard Stop 01/06/23 14:02:00 EDT, 01/11/22 14:02:00 EDT, Tablet, [facility], Partial fill upon patient request if the prescription is for a schedul... Start Date: 01/11/22 Stop Date: 01/06/23 Status: Ordered Centrum Silver Ultra Women's oral tablet 1 tablet, By Mouth, Daily, 0 Refills, Maintenance, 07/09/18 8:43:55 EST Start Date: 07/09/18 Status: Ordered [facility] SENIOR PROBIOTIC CAPSULE TAKE 2 CAPSULES BY MOUTH TWICE A DAY Start Date: 11/01/21 Status: Ordered diclofenac 1% topical gel 1 application, Topically, 4 times a day, # 100 Gm, 3 Refills, Maintenance, 01/11/22 14:07:00 EDT, Gel, [facility], Partial fill upon patient request if [...] 450 mL, 5 Refills, 03/02/22 8:08:00 EDT, [facility]/pharmacy #[id number], 155, cm, 02/23/22 8:04:00 EDT, Height, [...] 01/02/22 9:03:00 EDT, Route to Pharmacy Electronically, [facility], Partial fill upon patient request if [...] 01/11/22 13:45:00 EDT, [facility] Start Date: 01/11/22 Status: Ordered gabapentin 300 mg oral capsule 300 mg, 1, capsule, By Mouth, 3 times a day, # 270 capsule, Refills 2, Tot. Refills 2, Maintenance,05/21/22 7:44:00 EDT, Route to Pharmacy Electronically, [facility], Partial fill upon patient request if the prescription is for... Start Date: 05/21/22 Stop Date: 02/15/23 Status: Ordered gabapentin 300 mg oral capsule 300 mg, 1, capsule, By Mouth, 3 times a day, for 30 days, # 90 capsule, Refills 2, Tot. Refills 2, Hard Stop 05/21/22 7:44:00 EDT, 02/20/22 7:44:00 EDT, [id number] Partial fill upon patient request if the pre... Start Date: 02/20/22 Stop Date: 05/21/22 Status: Ordered Juzo Compression Hose Juzo Compression Hose, See Instructions, # 2 each, Refills 2, Tot. Refills 2, Maintenance, 20-30mmghg FF Petite (short),Nzgkr-qob-govu, soft knee, black silicone Stock code [id number] Part #[id number], Size III. [facility] [id number], 12/07/21 11:32:00 EDT,... Start Date: 12/07/21 Status: Ordered levothyroxine 0.088 mg oral tablet 1 tablet = 88 mcg, By Mouth, Daily, # 90 tablet, 3 Refills, Maintenance, 03/31/22 13:45:00 EDT, Tablet, [facility], Partial fill upon patient request if the prescription is fora schedule II opioid drug., 155, cm, 03/14/22 11:11... Start Date: 03/31/22 Status: Ordered lisinopril 5 mg oral tablet 5 mg, 1, tablet, By Mouth, Daily, # 90 tablet, Refills 3, Tot. Refills 3, Maintenance, 02/24/22 15:53:00 EDT, Route to Pharmacy Electronically, [facility]/pharmacy #[id number], Partial fill upon patient request if the prescription is for a schedule II opioid drug.... Start Date: 02/24/22 Status: Ordered Potassium Chloride (Eqv-K-Tab) 20 mEq oral tablet, extended release 1 tablet = 20 mEq, By Mouth, Daily, for low potassium, # 10 tablet, 0 Refills, Maintenance, 03/02/22 19:14:00 EDT, [facility]/pharmacy #[id number], Partial fill upon patient request if the prescription is for a schedule II opioid drug., 155, cm, 02/23/22 8:04:00 E... Start Date: 03/02/22 Stop Date: 03/12/22 Status: Ordered Power [place] Lift with [place] split-leg sling Power [place] Lift with [place] split-leg sling, See Instructions, # 1 [...] 3 Refills, Maintenance, 02/28/22 8:12:00 EDT, Tablet, [facility]/pharmacy #[id number], Partial fill upon patient request if [...] 90 capsule, 2 Refills, 02/28/22 8:13:00 EDT, [facility]/pharmacy #[id number], 155,cm, 02/23/22 8:04:00 EDT, Height, 93.4, kg, 11/01/21 16:52:00 EDT, Dry Weight Start Date: 02/28/22 Status: Ordered Xarelto 20 mg oral tablet 1 tablet = 20 mg, By Mouth, Daily at supper, # 90 tablet, 3 Refills, Maintenance, 02/01/22 12:42:00EDT, Tablet, [facility], Partial fill upon patient request [...]
--- OUTSIDE RECORDS SUMMARY | 2024-03-17 13:26 | XMS_ITS | Continuity of Care Document ---
Author Organization [facility] Address [address] [place] [address]- Care Team Providers Care Cw Operator Name Role Phone Juan Manuel LIM, Kristen Acosta Primary Care Physic juan alberto [place] [facility] [place] [facility] [address] [place] [address]- Allergies, Adverse Reactions, Alerts Substance Reaction Severity [...] vaccine, inactivated 04/26/09 Arnoldo rded SARS-CoV-2 mRNA (sbycunt-aegb-chrap) vax 03/10/22 Recorded SARS-CoV-2 mRNA (vwhhlzs-zypb-pikom) vax 10/04/21 Recorded SARS-CoV-2 (COVID-19) mRNA BNT-162b2 [...] tablet, 2 Refills, Maintenance, 02/28/22 8:12:00EDT, Tablet, [facility]/pharmacy #[id number], Partial fill upon patient request if the prescription is for a schedule II opioid drug., 155, cm, 02/23/22 8:04:00 EDT... Start Date: 02/28/22 Status: Ordered baclofen 20 mg oral tablet 20 mg, 1, tablet, By Mouth, 3 times a day, # 270 tablet, Refills 2, Tot. Refills 2, Maintenance, 12/09/22 12:44:00 EDT, [facility], [facility] [...] 03/14/22 12:44:00 EDT, Route to Pharmacy Electronically, [facility]/pharmacy#[id number], Partial fill upon patient request if the pre... Start Date: 03/14/22 Stop Date: 12/09/22 Status: Ordered bifidobacterium-lactobacillus oral tablet 2 tablet, By Mouth, 2 times a day, [facility] Brand please (Senior Wellness), # 360 tablet, 3 Refills, Maintenance, 08/11/21 17:02:00 EST, Tablet, [facility]/pharmacy #[id number], Partial fill upon patient request if the prescription is for a schedule II opioid drug., 2... Start Date: 08/11/21 Stop Date: 08/06/22 Status: Ordered calcium carbonate 600 mg oral tablet 1 tablet = 600 mg, By Mouth, 2 times a day, # 180 tablet, 2 Refills, Maintenance, 01/06/23 14:02:00EDT, Tablet, [facility]/pharmacy #[id number], Partial fill upon patient request [...] 01/06/23 14:02:00 EDT, 01/11/22 14:02:00 EDT, Tablet, [facility], Partial fill upon patient request if the prescription is for a schedul... Start Date: 01/11/22 Stop Date: 01/06/23 Status: Ordered Centrum Silver Ultra Women's oral tablet 1 tablet, By Mouth, Daily, 0 Refills, Maintenance, 07/09/18 8:43:55 EST Start Date: 07/09/18 Status: Ordered [facility] SENIOR PROBIOTIC CAPSULE TAKE 2 CAPSULES BY MOUTH TWICE A DAY Start Date: 11/01/21 Status: Ordered diclofenac 1% topical gel 1 application, Topically, 4 times a day, Apply 4 gram QID prn to affected pain to dropped foot - not to exceed 16 grams/day/single joint of lower extremities, # 100 Gm, 3 Refills, Maintenance, 04/02/22 21:13:00 EDT, Gel, [facility] Start Date: 04/02/22 Status: Ordered electric virginia [...] 450 mL, 5 Refills, 03/02/22 8:08:00 EDT, [facility]/pharmacy #[id number], 155, cm, 02/23/22 8:04:00 EDT, [...] 13:45:00 EDT, [facility] Start Date: 01/11/22 Status: Ordered gabapentin 300 [...] EDT, [id number] Partial fill upon patient request if the pre... Start Date: 02/20/22 Stop Date: 05/21/22 Status: Ordered Juzo Compression Hose Juzo Compression Hose, See Instructions, # 2 each, Refills 2, Tot. Refills 2, Maintenance, 20-30mmghg FF Petite (short),Hueri-rzs-hflq, soft knee, black silicone Stock code [id number] Part #[id number], Size III. [facility] [id number], 12/07/21 11:32:00 EDT,... Start Date: 12/07/21 Status: [...] 02/24/22 15:53:00 EDT, [id number] Partial fill upon patient request [...] 03/12/22 Status: Ordered Power [place] Lift with [place] split-leg sling Power [place] Lift with [place] split-leg sling, See Instructions, # 1 each, [...] 3 Refills, Maintenance, 02/28/22 8:12:00 EDT, Tablet, [id number], Partial fill upon patient [...] 90 capsule, 2 Refills, 02/28/22 8:13:00 EDT, [id number], 155,cm, 02/23/22 8:04:00 EDT, Height, 93.4, kg, 11/01/21 16:52:00 EDT, Dry Weight Start Date: 02/28/22 Status: Ordered Xarelto 20 mg oral tablet 1 tablet = 20 mg, By Mouth, Daily at supper, # 90 tablet, 3 Refills, Maintenance, 02/01/22 12:42:00EDT, Tablet, [facility], Partial fill upon patient request if the prescription is for a schedule II opioid drug., 155, cm, 01/02... Start Date: 02/01/22 Status: Ordered Xarelto 20 mg oral tablet 1 tablet = 20 mg, By Mouth, Daily before dinner, 0 Refills, Maintenance, 04/07/20 13:38:00 EDT Start Date: 04/07/20 Status: Ordered Problem List Condition Confirmation Course [...] Bladder spasm Confirmed Active Spasticity Confirmed Active Social History Social History Type Response Smoking Status Never (less than 100 in lifetime) entered on: 10/31/21 Sex Patient Care team information Personnel Name: Juan Manuel LIM, Kristen Acosta Address: Address: [address] [place] [address]
--- OUTSIDE RECORDS SUMMARY | 2024-03-17 13:26 | XMS_ITS | Continuity of Care Document ---
Author Organization [facility] Address [address] [place] [address]- Care Team Providers Care Pole Maker Name Role Phone Juan Manuel LIM, Kristen Acosta Primary Care Physic juan alberto Encounter [facility] Date(s): 03/09/23 - 04/08/23 [facility] [address] [place] [address]- Allergies, Adverse Reactions, Alerts Substance Reaction Severity Status morphine hives, SOB Active Wellbutrin rash Active Reglan Active contrast media (iodine-based) itching throughout body Active penicillins hive Active cannabis (Schedule I substance) itching/vomiting Active Other Environmental Allergy mercury-fillings Active Immunizations Given and Recorded Vaccine Date Status Refusal Reason pneumococcal 20-valent conjugate vaccine 05/30/22 Recorded [id number] 12y+ bivalent booster vax 05/12/22 Recorded influenza [...] vaccine, inactivated 04/26/09 Arnoldo rded SARS-CoV-2 mRNA (lpnlzbd-rckb-oirzq) vax 03/10/22 Recorded SARS-CoV-2 mRNA (ccfhgvw-okdk-abijb) vax 10/04/21 Recorded SARS-CoV-2 (COVID-19) mRNA BNT-162b2 [...] 1 Refills, Maintenance, 12/11/22 17:34:00 EDT, Tablet, [facility]/pharmacy #[id number], Partial fill upon patient request if the prescription is for a schedule II opioid drug., 155, cm, 10/10/22 13:40:00 E... Start Date: 12/11/22 Status: Ordered baclofen 20 mg oral tablet 20 mg, 1, tablet, By Mouth, 3 times a day, # 270 tablet, Refills 2, Tot. Refills 2, Maintenance, 12/09/22 12:44:00 EDT, Route to Pharmacy Electronically, [facility], Partial fill upon patient request if the prescription is for a... Start Date: 12/09/22 Stop Date: 09/05/23 Status: Ordered bifidobacterium-lactobacillus oral tablet 2 tablet, By Mouth, 2 times a day, [facility] Brand please ([facility] Wellness), # 360 tablet, 3 Refills, Maintenance, 08/11/21 17:02:00 EST, Tablet, [facility]/pharmacy #[id number], Partial fill upon patient request if the prescription is for a schedule II opioid drug., 2... Start Date: 08/11/21 Stop Date: 08/06/22 Status: Ordered calcium carbonate 600 mg oral tablet 1 tablet = 600 mg, By Mouth, 2 times a day, # 180 tablet, 2 Refills, Maintenance, 01/06/23 14:02:00EDT, Tablet, [facility]/pharmacy #[id number], Partial fill upon patient request if the prescription is for a schedule II opioid drug., 155, cm, 02/23/22 8:04:00 EDT... Start Date: 01/06/23 Stop Date: 10/03/23 Status: Ordered Centrum Silver Ultra Women's oral tablet 1 tablet, By Mouth, Daily, 0 Refills, Maintenance, 07/09/18 8:43:55 EST Start Date: 07/09/18 Status: Ordered [facility] SENIOR PROBIOTIC CAPSULE TAKE 2 CAPSULES BY MOUTH TWICE A DAY Start Date: 11/01/21 Status: Ordered [facility] Senior Probiotic Capsule [facility] Senior Probiotic Capsule, See Instructions, [...] 450 mL, 5 Refills, 03/02/22 8:08:00 EDT, [facility]/pharmacy #[id number], 155, cm, 02/23/22 8:04:00 [...] Refills, Soft Stop, 03/27/23 18:43:00 EDT, Tablet, [facility]/pharmacy #[id number], Partial fill upon patient request if the prescription is for a schedule II opioid... Start Date: 03/27/23 Status: Ordered fluconazole 150 mg oral tablet 1 tablet = 150 mg, By Mouth, Every week, # 4 tablet, 1 Refills, Soft Stop, 05/26/22 8:59:00 EDT, Tablet, [facility]/pharmacy #[id number], Partial fill upon patient [...] 01/17/23 19:36:00 EDT, Route to Pharmacy Electronically, [facility], 155, cm, 10/10/22 13:40:00 EST, Height, 93.4,kg, 11/01/21 16:52:00 EDT, Dry Weight Start Date: 01/17/23 Status: Ordered gabapentin 300 mg oral capsule 300 mg, 1, capsule, By Mouth, 3 times a day, # 270 capsule, Refills 2, Tot. Refills 2, Maintenance,02/15/23 7:44:00 EDT, Route to Pharmacy Electronically, [facility], Partial fill upon patient request if the prescription is for... Start Date: 02/15/23 Stop Date: 11/12/23 Status: Ordered Juzo Compression Hose Juzo Compression Hose, See Instructions, # 2 each, Refills 2, Tot. Refills 2, Maintenance, Juzo Compression Hose 2 pairs [id number] Soft Knee FF Petite 20-30 mmHg Silicone, Black Stock Code [id number] I I I Part #[id number] Size I I I SKU... Start Date: 03/12/23 Status: Ordered levothyroxine 0.088 mg oral tablet 1 tablet = 88 mcg, By Mouth, Daily, # 90 tablet, 3 Refills, Maintenance, 03/15/23 17:17:00 EDT, Tablet, [facility], Partial fill upon patient request if the prescription is fora schedule II opioid drug., 155, cm, 03/15/23 17:11... Start Date: 03/15/23 Status: Ordered lisinopril 5 mg oral tablet 1, tablet, By Mouth, Daily, # 90 tablet, Refills 3, Tot. Refills 3, Maintenance, 03/15/23 17:16:00 EDT, Route to Pharmacy Electronically, [facility], 155, cm, 03/15/23 17:11:00EDT, Height, 93.4, kg, 11/01/21 16:52:00 EDT, Dry W... Start Date: 03/15/23 Status: Ordered Mapap 500 mg oral capsule See Instructions, TAKE 2 CAPSULES BY MOUTH 4 TIMES A DAY NEEDED FOR PAIN, # 480 capsule, 0 Refills, Maintenance, 03/12/23 9:16:00 EDT, [facility]/pharmacy #[id number], 155, cm, 10/10/22 13:40:00 EST, Height, 93.4, kg, 11/01/21 16:52:00 EDT, Dry Weight Start Date: 03/12/23 Status: Ordered Power [place] Lift with [place] split-leg sling Power [place] Lift with [place] split-leg sling, See Instructions, # 1 each, [...] 5 Refills, Maintenance, 12/11/22 17:34:00 EDT, Tablet, [facility]/pharmacy #[id number], Partial fill upon patient [...] Team Personnel Name: Juliann Rich RN Position: [facility] RN Member Role: Primary Care Nurse Name: Elsa Allen NP Position: Reference Physician Member Role: Primary Care Nurse Address: Address: [address] [place] [address] [address] [place] [address]- Name: Emma Mendoza RN Position: [facility] AMB Nurse Member Role: Primary Care Nurse Name: Juan Manuel LIM, Kristen Acosta Position: [facility] Physician - Primary Care Member Role: PCP Address: Address: [address] [place] [address]- Name: Komal Goodrich Position: [facility] Outreach Member Role: Lifetime Consulting Physician Name: Godfrey Cano Position: [facility] RN Member Role: Primary Care Nurse Name: Anette Miranda RN Position: [facility] Onco RN Member Role: Primary Care Nurse Care Team Related Persons Name: ALANA, DIOMEDES Address: home [address] [place] [address] Name: MOO HOWELL Address: home [address] [place] [address] Name: MARLON GENTILE
--- OUTSIDE RECORDS SUMMARY | 2024-03-17 13:26 | XMS_ITS | Continuity of Care Document ---
Author Organization [facility] Address [address] [place] [address]- Care Team Providers Care Stem Teacher Name Role Phone Juan Manuel LIM, Kristen Acosta Primary Care Physic juan alberto [place] [facility] [place] [facility] [address] [place] [id number] Allergies, Adverse Reactions, Alerts Substance Reaction Severity Status morphine hives, SOB Active penicillins hive Active Wellbutrin rash Active Reglan Active cannabis (Schedule I substance) itching/vomiting Active Other Environmental Allergy mercury-fillings Active contrast media (iodine-based) itching throughout body Active Immunizations Given and Recorded Vaccine Date Status Refusal Reason pneumococcal 20-valent conjugate vaccine 05/30/22 Recorded [id number] 12y+ bivalent booster vax 05/12/22 Recorded influenza [...] vaccine, inactivated 04/26/09 Arnoldo rded SARS-CoV-2 mRNA (hbvxadd-ysqj-kbywg) vax 03/10/22 Recorded SARS-CoV-2 mRNA (uczcntl-njlu-qvcxz) vax 10/04/21 Recorded SARS-CoV-2 (COVID-19) mRNA BNT-162b2 [...] day, # 90 tablet, 0 Refills, Maintenance, 09/13/22 9:11:00EST, Tablet, [facility]/pharmacy #[id number], Partial fill upon patient request if the prescription is for a schedule II opioid drug., 155, cm, 07/12/22 14:10:00 ES... Start Date: 09/13/22 Status: Ordered baclofen 20 mg oral tablet 20 mg, 1, tablet, By Mouth, 3 times a day, # 270 tablet, Refills 2, Tot. Refills 2, Maintenance, 12/09/22 12:44:00 EDT, Route to Pharmacy Electronically, [facility], Partial fill upon patient request if the prescription is for a... Start Date: 12/09/22 Stop Date: 09/05/23 Status: Ordered baclofen 20 mg oral tablet 20 mg, 1, tablet, By Mouth, 3 times a day, for 90 days, # 270 tablet, Refills 2, Tot. Refills 2, Hard Stop 12/09/22 12:44:00 EDT, 03/14/22 12:44:00 EDT, Route to Pharmacy Electronically, [facility]/pharmacy#[id number], Partial fill upon patient request if the pre... Start Date: 03/14/22 Stop Date: 12/09/22 Status: Ordered bifidobacterium-lactobacillus oral tablet 2 tablet, By Mouth, 2 times a day, [facility] Brand please (Senior Wellness), # 360 tablet, 3 Refills, Maintenance, 08/11/21 17:02:00 EST, Tablet, [facility]/pharmacy #[id number], Partial fill upon patient request if the prescription is for a schedule II opioid drug., 2... Start Date: 08/11/21 Stop Date: 08/06/22 Status: Ordered calcium carbonate 600 mg oral tablet 1 tablet = 600 mg, By Mouth, 2 times a day, # 180 tablet, 2 Refills, Maintenance, 01/06/23 14:02:00EDT, Tablet, [facility]/pharmacy #[id number], Partial fill upon [...] 01/11/22 14:02:00 EDT, Tablet, [facility], Partial fill upon patient request if the prescription is for a schedul... Start Date: 01/11/22 Stop Date: 01/06/23 Status: Ordered Centrum Silver Ultra Women's oral tablet 1 tablet, By Mouth, Daily, 0 Refills, Maintenance, 07/09/18 8:43:55 EST Start Date: 07/09/18 Status: Ordered [facility] SENIOR PROBIOTIC CAPSULE TAKE 2 CAPSULES BY MOUTH TWICE A DAY Start Date: 11/01/21 Status: Ordered [facility] Senior Probiotic Capsule [facility] Senior Probiotic Capsule, See Instructions, # 180 each, 5 Refills, Maintenance, TAKE 2 CAPSULESBY MOUTH TWICE A DAY, 07/20/22 9:53:00 EST, 155, cm, 07/12/22 14:10:00 EST, Height, 93.4, kg, 11/01/21 16:52:00 EDT, Dry Weight Start Date: 07/20/22 Status: Ordered diclofenac 1% topical gel 1 application, Topically, 4 times a day, Apply 4 gram QID prn to affected pain to dropped foot - not to exceed 16 grams/day/single joint of lower extremities, # 100 Gm, 3 Refills, Maintenance, 04/02/22 21:13:00 EDT, Gel, [facility] Start Date: 04/02/22 [...] 450 mL, 5 Refills, 03/02/22 8:08:00 EDT, [facility]/pharmacy #[id number], 155, cm, 02/23/22 [...] Refills, Soft Stop, 05/26/22 8:59:00 EDT, Tablet, [facility]/pharmacy #[id number], Partial fill upon [...] Route to Pharmacy Electronically, [facility], Partial fill upon patient request [...] 01/11/22 13:45:00 EDT, [facility] Start Date: 01/11/22 Status: Ordered gabapentin 300 mg oral capsule 300 mg, 1, capsule, By Mouth, 3 times a day, for 90 days, # 270 capsule, Refills 2, Tot. Refills 2,Hard Stop 02/15/23 7:44:00 EDT, 05/21/22 7:44:00 EDT, Route to Pharmacy Electronically, [facility], Partial fill upon patient re... Start Date: 05/21/22 Stop Date: 02/15/23 Status: Ordered gabapentin 300 mg oral capsule 300 mg, 1, capsule, By Mouth, 3 times a day, # 270 capsule, Refills 2, Tot. Refills 2, Maintenance,02/15/23 7:44:00 EDT, Route to Pharmacy Electronically, [facility], Partial fill upon patient request if the prescription is for... Start Date: 02/15/23 Stop Date: 11/12/23 Status: Ordered Juzo Compression Hose Juzo Compression Hose, See Instructions, # 2 each, Refills 2, Tot. Refills 2, Maintenance, 20-30mmghg FF Petite (short),Fcyhi-ame-znmq, soft knee, black silicone Stock code [id number] Part #[id number], Size III. [facility] [id number], 12/07/21 11:32:00 EDT,... Start Date: 12/07/21 Status: Ordered levothyroxine 0.088 mg oral tablet 1 tablet = 88 mcg, By Mouth, Daily, # 90 tablet, 1 Refills, Maintenance, 09/08/22 14:26:00 EST, Tablet, [facility], Partial fill upon patient request if the prescription is fora schedule II opioid drug., 155, cm, 07/12/22 14:10... Start Date: 09/08/22 Status: Ordered lisinopril 5 mg oral tablet 5 mg, 1, tablet, By Mouth, Daily, # 90 tablet, Refills 3, Tot. Refills 3, Maintenance, 02/24/22 15:53:00 EDT, Route to Pharmacy Electronically, [facility]/pharmacy #[id number], Partial fill upon patient request if the prescription is for a schedule II opioid drug.... Start Date: 02/24/22 Status: Ordered lisinopril 5 mg oral tablet See Instructions, TAKE 1 TABLET DAILY, # 90 tablet, Refills 1, Maintenance, 09/24/22 19:24:00 EST, Instructions Replace Required Details, Route to Pharmacy Electronically, [facility], 155, cm, 07/12/22 14:10:00 EST, Height, 93.4, k... Start Date: 09/24/22 Status: Ordered Mapap 500 mg oral capsule See Instructions, TAKE 2 CAPSULES BY MOUTH 4 TIMES A DAY NEEDED FOR PAIN, # 480 capsule, 3 Refills, Maintenance, 06/04/22 16:03:00 EDT, [id number], 155, cm, 05/25/22 13:44:00 EDT, Height, 93.4, kg, 11/01/21 16:52:00 EDT, Dry Weight Start Date: 06/04/22 Status: Ordered Potassium Chloride (Eqv-K-Tab) 20 mEq oral tablet, extended release 1 tablet = 20 mEq, By Mouth, Daily, for low potassium, # 10 tablet, 0 Refills, Maintenance, 03/02/22 19:14:00 EDT, [facility]/pharmacy #[id number], Partial fill upon patient request if the prescription is for a schedule II opioid drug., 155, cm, 02/23/22 8:04:00 E... Start Date: 03/02/22 Stop Date: 03/12/22 Status: Ordered Power [place] Lift with [place] split-leg sling Power [place] Lift with [place] split-leg sling, See Instructions, # 1 each, Refills 0, Tot. Refills 0, Maintenance, Dx: Multiple Sclerosis induced Paraplegia Length of time needed: indefinite Purpose: Transfer to/fr hosp bed to wheelchair, commode,... Start Date: 08/16/21 Status: Ordered predniSONE 10 mg oral tablet See Instructions, 3 tablets x 3 days, 2 tabs x 3 days then 1 tab x 3 days then STOP, # 18 tablet, 0Refills, Maintenance, 08/24/22 17:06:00 EST, [facility]/pharmacy #[id number], Partial fill upon patient request if the prescription is for a schedule II opioid drug... Start Date: 08/24/22 Status: Ordered Provigil 200 mg oral tablet 1 tablet = 200 mg, By Mouth, 2 times a day, for 28 days, takes in am and lunchtime brand name only - dispense as written, # 56 tablet, 3 Refills, Hard Stop 11/01/22 17:46:00 EDT, 07/12/22 17:46:00 EST, Tablet, [facility]/pharmacy #[id number], Partial fill upon pa... Start Date: 07/12/22 Stop Date: 11/01/22 Status: Ordered Provigil 200 mg oral tablet 1 tablet = 200 mg, By Mouth, 2 times a day, takes in am and lunchtime brand name only - dispense aswritten, # 56 tablet, 0 Refills, Maintenance, 09/07/22 14:36:00 EST, Tablet, [id number], Partial fill upon patient request if the prescription... Start Date: 09/07/22 Stop Date: 10/05/22 Status: Ordered Provigil 200 mg oral tablet 1 tablet = 200 mg, By Mouth, 2 times a day, for 28 days, takes in am and lunchtime brand name only - dispense as written, # 56 tablet, 3 Refills, Hard Stop 10/25/22 18:25:00 EDT, 07/05/22 18:25:00 EST, Tablet, [facility], Parti... Start Date: 07/05/22 Stop Date: 10/25/22 Status: Ordered Repair for hospital bed Repair [...] 90 capsule, 2 Refills, 02/28/22 8:13:00 EDT, [facility]/pharmacy #[id number], 155,cm, 02/23/22 8:04:00 EDT, Height, 93.4, kg, 11/01/21 16:52:00 EDT, Dry Weight Start Date: 02/28/22 Status: Ordered Xarelto 20 mg oral tablet 1 tablet = 20 mg, By Mouth, Daily at supper, # 90 tablet, 3 Refills, Maintenance, 02/01/22 12:42:00EDT, Tablet, [facility], Partial fill upon patient request [...] Team Personnel Name: Juliann Rich RN Position: [facility] RN Member Role: Primary Care Nurse Name: Elsa Allen NP Position: Reference Physician Member Role: Primary Care Nurse Address: Address: [address] [place] [address] [address] [place] [address]- Name: Emma Mendoza RN Position: [facility] RN Member Role: Primary Care Nurse Name: Juan Manuel LIM, Kristen Acosta Position: [facility] Primary Care Physician Member Role: PCP Address: Address: [address] [place] [id number] Name: Jade Medina Position: S RN Member Role: Primary Care Nurse Name: Komal Goodrich Position: [facility] Outreach Member Role: Lifetime Consulting Physician Name: Godfrey Cano Position: [facility] RN Member Role: Primary Care Nurse Name: Anette Miranda RN Position: [facility] Onco RN Member Role: Primary Care Nurse Care Team Related Persons Name: DIOMEDES WARNER Address: home [address] [place] [address] Name: MOO HOWELL Address: [address] [address] Name: MARLON GENTILE
--- OUTSIDE RECORDS SUMMARY | 2024-03-17 13:26 | XMS_ITS | Continuity of Care Document ---
Author Organization [facility] ter Address [address] [place] [id number]- Care Team Providers Care Machine Shop Lead Man Name Role Phone Juan Manuel LIM, Kristen Acosta Primary Care Physic juan alberto Encounter [facility] Date(s): 10/31/21 - 11/03/[address] [address] Discharge Disposition: A-D/C Home Attending Physician: Chelsie Cervantes MD Admitting Physician: Sherron Navarrete MD Referring Physician: Not on Staff, Referring MD Allergies, Adverse Reactions, Alerts Substance Reaction Severity [...] ES... Start Date: 08/11/21 Status: Ordered baclofen 10 mg oral tablet 20 mg, Tablet, By Mouth, 11/03/21 9:00:00 EDT Start Date: 11/03/21 Stop Date: 11/03/21 Status: Completed baclofen 20 mg oral tablet 20 mg, 1, tablet, By Mouth, 3 times a day, # 360 tablet, Refills 1, Tot. Refills 1, Maintenance, 08/02/21 14:09:00 EST, Route to Pharmacy Electronically, [facility], Partial fill upon patient request if the prescription is for a... Start Date: 08/02/21 Status: Ordered bifidobacterium-lactobacillus oral tablet 2 tablet, By Mouth, 2 times a day, [facility] Brand please (Senior Wellness), # 360 tablet, [...] 01/09/22 14:17:00 EDT, 07/13/21 14:17:00 EST, Tablet, [facility], Partial fill upon patient request if the prescription is for a schedul... Start Date: 07/13/21 Stop Date: 01/09/22 Status: Ordered cefepime 2 g intravenous injection = 2 Gm, IV Infusion, Every 12 hours, for 4 days, # 9 each, 0 Refills, Acute 11/07/21 9:21:00 EDT, 11/03/21 9:21:00 EDT, Partial fill upon patient request if the prescription is for a schedule II opioid drug. Start Date: 11/03/21 Stop Date: 11/07/21 Status: Ordered Centrum Silver Ultra Women's oral [...] 0 Refills, [id number], 153, cm, 08/30/21 16:43:00 EST, Height Start [...] 04/05/21 13:39:00 EDT, Route to Pharmacy Electronically, [facility], Partial fill upon patient request if the prescription is for a schedule... Start Date: 04/05/21 Stop Date: 05/05/21 Status: Ordered gabapentin 300 mg oral capsule 300 mg, 1, capsule, By Mouth, Daily at bedtime, # 90 capsule, Refills 2, Tot. Refills 2, Maintenance, 08/02/21 14:08:00 EST, Route to Pharmacy Electronically, [facility], Partial fill upon patient request if the prescription is... Start Date: 08/02/21 Status: Ordered levothyroxine 0.088 mg oral tablet 1 tablet = 88 mcg, By Mouth, Daily, # 90 tablet, 1 Refills, Maintenance, 07/13/21 14:09:00 EST, Tablet, [facility], Partial fill upon patient request if the prescription is fora schedule II opioid drug., 153, cm, 06/27/21 7:47:... Start Date: 07/13/21 Status: Ordered lisinopril 5 mg oral tablet 5 mg, 1, tablet, By Mouth, Daily, # 90 tablet, Refills 1, Tot. Refills 1, Maintenance, 07/13/21 14:08:00 EST, Route to Pharmacy Electronically, [facility], Partial fill upon patient request if the prescription is for a schedule... Start Date: 07/13/21 Status: Ordered lisinopril 5 mg oral tablet 5 mg, Tablet, By Mouth, 11/03/21 9:00:00 EDT Start Date: 11/03/21 Stop Date: 11/03/21 Status: Completed Power Virginia Lift with [place] split-leg sling Power Virginia Lift with [place] split-leg sling, See Instructions, # 1 each, [...] 1 Refills, Maintenance, 07/14/21 17:19:00 EST, Tablet, [facility], Partial fill upon patient request if t... Start Date: 07/14/21 Stop Date: 09/08/21 Status: Ordered Turmeric = 750 mg, By Mouth, 2 times a day, 0 Refills, Maintenance, 07/09/18 8:47:35 EST Start Date: 07/09/18 Status: Ordered vancomycin 1.25 g/250 mL intravenous solution = 1.25 Gm, IV Infusion, Daily, for 4 days, # 4 each, 0 Refills, Acute 11/07/21 9:20:00 EDT, 11/03/21 9:20:00 EDT, Partial fill upon patient request if the prescription is for a schedule II opioid drug. Start Date: 11/03/21 Stop Date: 11/07/21 Status: Ordered Vitamin D3 2000 intl units [...] embolism(Confirmed) Active Bladder spasm(Confirmed) Active Spasticity(Confirmed) Active Results Orders for Microbiology Reports Name Date Urine Culture (URINE CULTURE) 10/31/21 Blood Culture 10/31/21 Blood Culture #2 10/31/21 Microbiology Reports TEST:Urine Culture STATUS:Auth (Verified) BODY SITE: SOURCE:URINE COLLECTED DATE/TIME:10/31/21 6:50 PM Urine Culture SPECIMEN DESCRIPTION : URINE SPECIAL REQUESTS : NONE CULTURE : Mixed bacterial maya, indicative of urogenital contamination. REPORT STATUS : FINAL 11/01/2021 TEST:Blood Culture, Second Order STATUS:Unauthenticated BODY SITE: SOURCE:Blood COLLECTED DATE/TIME:10/31/21 5:33 PM Blood Culture, Second Order SPECIMEN DESCRIPTION : BLOOD RAC SPECIAL REQUESTS : NONE CULTURE : NO GROWTH 3 DAYS REPORT STATUS : PRELIMINARY REPORT TEST:Blood Culture STATUS:Unauthenticated BODY SITE: SOURCE:Blood COLLECTED DATE/TIME:10/31/21 5:29 PM Blood Culture SPECIMEN DESCRIPTION : BLOOD LA SPECIAL REQUESTS : NONE CULTURE : NO GROWTH 3 DAYS REPORT STATUS : PRELIMINARY REPORT Vital Signs Most recent to oldest [Reference Range]: 1 2 3 Height 155 cm (11/03/21 8:42 AM) 155 cm (11/03/21 6:37 AM) 155 cm (11/02/21 7:39 PM) Weight 93.4 kg (11/01/21 4:51 PM) Oxygen Saturation [94-100 %] 99 % (11/03/21 8:42 AM) 96 % (11/03/21 6:37 AM) 100 % (11/02/21 7:39 PM) Pulse Rate [55-90 bpm] 87 bpm (11/03/21 8:42 AM) 70 bpm (11/03/21 6:37 AM) 88 bpm (11/02/21 7:39 PM) Body Mass Index [18.5-24.99] 38.88 *>HHI* (11/01/21 4:51 PM) Blood Pressure [90-138/55-84 mm Hg] 146/75mm Hg *H* (11/03/21 9:07 AM) 146/75mm Hg *H* (11/03/21 8:42 AM) 113/62mm Hg (11/03/21 6:37 AM) Respiratory Rate [16-30 br/min] 16 br/min (11/03/21 9:07 AM) 18 br/min (11/03/21 8:42 AM) 20 br/min (11/03/21 6:37 AM) Temperature [96.8-100.4 DegF] 98.0 DegF (11/03/21 8:42 AM) 98 DegF (11/03/21 6:37 AM) 97.8 DegF (11/02/21 7:39 PM) Mode of Delivery (Oxygen) Room air (11/03/21 8:42 AM) Room air (11/03/21 6:37 AM) Room air (11/02/21 7:39 PM) Blood pressure sites Arm, left (11/03/21 8:42 AM) Arm, left (11/03/21 6:37 AM) Arm, left (11/02/21 7:39 PM) Temperature Route Oral (11/03/21 8:42 AM) Oral (11/03/21 6:37 AM) Oral (11/02/21 7:39 PM) Dry Weight 93.4 kg (11/01/21 4:51 PM) Social History Social History Type Response Smoking Status Never (less than 100 in lifetime) entered on: 10/31/21 Sex
--- OUTSIDE RECORDS SUMMARY | 2024-03-17 13:26 | XMS_ITS | Continuity of Care Document ---
Author Organization [facility] Address [address] [place] [id number]- Care Team Providers Care Executive Legal Secretary Name Role Phone Juan Manuel LIM, Kristen Acosta Primary Care Physic juan alberto Encounter [facility] Date(s): 09/29/22 - 10/29/22 [facility] [address] [place] [id number] Attending Physician: Alissa Gannon Admitting Physician: AdmAlissa fisher Referring Physician: Admtr, Alissa Allergies, Adverse Reactions, Alerts Substance Reaction Severity Status morphine hives, SOB Active Wellbutrin rash Active Reglan Active contrast media (iodine-based) itching throughout body Active penicillins hive Active cannabis (Schedule I substance) itching/vomiting Active Other Environmental Allergy mercury-fillings Active Immunizations Given and Recorded Vaccine Date Status Refusal Reason pneumococcal 20-valent conjugate vaccine 05/30/22 Recorded [id number] 12y+ bivalent booster vax 05/12/22 Recorded influenza [...] vaccine, inactivated 04/26/09 Arnoldo rded SARS-CoV-2 mRNA (bdlimom-sjqd-ztymt) vax 03/10/22 Recorded SARS-CoV-2 mRNA (phvmtjl-rbjf-ehppq) vax 10/04/21 Recorded SARS-CoV-2 (COVID-19) mRNA BNT-162b2 [...] tablet, 0 Refills, Maintenance, 10/05/22 9:35:00EST, Tablet, [facility] #[id number], Partial fill upon patient request if the prescription is for a schedule II opioid drug., 155, cm, 09/26/22 14:02:00 ES... Start Date: 10/05/22 Status: Ordered baclofen 20 mg oral tablet 20 mg, 1, tablet, By Mouth, 3 times a day, # 270 tablet, Refills 2, Tot. Refills 2, Maintenance, 12/09/22 12:44:00 EDT, Route to Pharmacy Electronically, [facility], Partial fill upon patient request if the prescription is for a... Start Date: 12/09/22 Stop Date: 09/05/23 Status: Ordered baclofen 20 mg oral tablet 20 mg, 1, tablet, By Mouth, 3 times a day, for 90 days, # 270 tablet, Refills 2, Tot. Refills 2, Hard Stop 12/09/22 12:44:00 EDT, 03/14/22 12:44:00 EDT, [id number] Partial fill upon patient request if the pre... Start Date: 03/14/22 Stop Date: 12/09/22 Status: Ordered bifidobacterium-lactobacillus oral tablet 2 tablet, By Mouth, 2 times a day, [facility] Brand please (Senior Wellness), # 360 tablet, 3 Refills, Maintenance, 08/11/21 17:02:00 EST, Tablet, [facility]acy #[id number], Partial fill upon patient request if the prescription is for a schedule II opioid drug., 2... Start Date: 08/11/21 Stop Date: 08/06/22 Status: Ordered calcium carbonate 600 mg oral tablet 1 tablet = 600 mg, By Mouth, 2 times a day, # 180 tablet, 2 Refills, Maintenance, 01/06/23 14:02:00EDT, Tablet, [id number] Partial fill upon patient request [...] 01/06/23 14:02:00 EDT, 01/11/22 14:02:00 EDT, [facility] Partial fill upon patient request if the prescription is for a schedul... Start Date: 01/11/22 Stop Date: 01/06/23 Status: Ordered Centrum Silver Ultra Women's oral tablet 1 tablet, By Mouth, Daily, 0 Refills, Maintenance, 07/09/18 8:43:55 EST Start Date: 07/09/18 Status: Ordered [facility] SENIOR PROBIOTIC CAPSULE TAKE 2 CAPSULES BY MOUTH TWICE A DAY Start Date: 11/01/21 Status: Ordered [facility] Senior Probiotic Capsule [facility] Senior Probiotic Capsule, See Instructions, # [...] mL, 5 Refills, 03/02/22 8:08:00 EDT, [facility]/pharm[facility] #[id number], 155, cm, 02/23/22 8:04:00 EDT, [...] Soft Stop, 05/26/22 8:59:00 EDT, Tablet, [facility] #[id number], Partial fill upon patient request [...] 01/02/22 9:03:00 EDT, Route to Pharmacy Electronically, [facility], Partial fill upon patient [...] 01/11/22 13:45:00 EDT, Route to Pharmacy Electronically, [facility]... Start Date: 01/11/22 Status: Ordered gabapentin 300 mg oral capsule 300 mg, 1, capsule, By Mouth, 3 times a day, for 90 days, # 270 capsule, Refills 2, Tot. Refills 2,Hard Stop 02/15/23 7:44:00 EDT, 05/21/22 7:44:00 EDT, Route to Pharmacy Electronically, [facility], Partial fill upon patient re... Start Date: 05/21/22 Stop Date: 02/15/23 Status: Ordered gabapentin 300 mg oral capsule 300 mg, 1, capsule, By Mouth, 3 times a day, # 270 capsule, Refills 2, Tot. Refills 2, Maintenance,02/15/23 7:44:00 EDT, Route to Pharmacy Electronically, [facility], Partial fill upon patient request if the prescription is for... Start Date: 02/15/23 Stop Date: 11/12/23 Status: Ordered Juzo Compression Hose Juzo Compression Hose, See Instructions, # 2 each, Refills 2, Tot. Refills 2, Maintenance, 20-30mmghg FF Petite (short),Amweq-uho-gcrj, soft knee, black silicone Stock code [id number] Part #[id number], Size III. [place] [id number], 12/07/21 11:32:00 EDT,... Start Date: 12/07/21 Status: Ordered levothyroxine 0.088 mg oral tablet 1 tablet = 88 mcg, By Mouth, Daily, # 90 tablet, 1 Refills, Maintenance, 09/08/22 14:26:00 EST, Tablet, [facility], Partial fill upon patient request if the prescription is fora schedule II opioid drug., 155, cm, 07/12/22 14:10... Start Date: 09/08/22 Status: Ordered lisinopril 5 mg oral tablet 5 mg, 1, tablet, By Mouth, Daily, # 90 tablet, Refills 3, Tot. Refills 3, Maintenance, 02/24/22 15:53:00 EDT, Route to Pharmacy Electronically, [facility] #[id number], Partial fill upon patient request if the prescription is for a schedule II opioid drug.... Start Date: 02/24/22 Status: Ordered lisinopril 5 mg oral tablet See Instructions, TAKE 1 TABLET DAILY, # 90 tablet, Refills 1, Maintenance, 09/24/22 19:24:00 EST, Instructions Replace Required Details, Route to Pharmacy Electronically, [facility], 155, cm, 07/12/22 14:10:00 EST, Height, 93.4, k... Start Date: 09/24/22 Status: Ordered Mapap 500 mg oral capsule See Instructions, TAKE 2 CAPSULES BY MOUTH 4 TIMES A DAY NEEDED FOR PAIN, # 480 capsule, 3 Refills, Maintenance, 06/04/22 16:03:00 EDT, [facility], 155, cm, 05/25/22 13:44:00 EDT, Height, 93.4, kg, 11/01/21 16:52:00 EDT, Dry Weight Start Date: 06/04/22 Status: Ordered Power Virginia Lift with [place] split-leg sling Power Virginia Lift with [place] split-leg sling, See Instructions, # 1 each, [...] 11/01/22 17:46:00 EDT, 07/12/22 17:46:00 EST, Tablet, [id number], Partial fill upon pa... Start Date: 07/12/22 Stop Date: 11/01/22 Status: Ordered Provigil 200 mg oral tablet 1 tablet = 200 mg, By Mouth, 2 times a day, takes in am and lunchtime brand name only - dispense aswritten, # 56 tablet, 5 Refills, Maintenance, 10/05/22 17:39:00 EST, Tablet, [id number], Partial fill upon [...] tablet, 3 Refills, Maintenance, 02/01/22 12:42:00EDT, Tablet, [facility], Partial fill upon patient [...] 100 in lifetime) entered on: 10/31/21 Sex Note * Event Display: Non BH Lab Results Authored Date: * Event Display: Non BH Lab Results Authored Date: * Event Display: Non BH Lab Results Authored Date: * Event Display: Non BH Lab Results Authored Date: Patient Care team information Care Team Personnel Name: Juliann Rich RN Position: S RN Member Role: Primary Care Nurse Name: Elsa Allen NP Position: Reference Physician Member Role: Primary Care Nurse Address: Address: [address] [place] [address] [address] [facility] [place] [address]- [place] Name: Emma Mendoza RN Position: [facility] RN Member Role: Primary Care Nurse Name: Juan Manuel LIM, Kristen Acosta Position: [facility] Primary Care Physician Member Role: PCP Address: Address: [address] [place] [id number]- Name: Jade Medina Position: [facility] RN Member Role: Primary Care Nurse Name: Komal Goodrich Position: [facility] Outreach Member Role: Lifetime Consulting Physician Name: Godfrey Cano Position: [facility] RN Member Role: Primary Care Nurse Name: Anette Miranda RN Position: [facility] Onco RN Member Role: Primary Care Nurse Care Team Related Persons Name: DIOMEDES WARNER Address: home [address] [place] [address] Name: MOO HOWELL Address: home [address] [place] [address] Name: MARLON GENTILE
--- OUTSIDE RECORDS SUMMARY | 2024-03-17 13:26 | XMS_ITS | Continuity of Care Document ---
Author Organization [facility] Address [address] [place] [address]- Care Team Providers Care Senior Product Development Engineer Name Role Phone Juan Manuel LIM, Kristen Acosta Primary Care Physic juan alberto Encounter [facility] [place] Date(s): 07/13/21 - 08/12/21 [facility] [address] [place] [address]- Allergies, Adverse Reactions, Alerts Substance Reaction Severity [...] Date: 06/23/21 Stop Date: 08/22/21 Status: Ordered acetaminophen 500 mg oral capsule 2 capsule = 1,000 mg, By Mouth, 4 times a day, PRN for pain, for 60 days, # 480 capsule, 3 Refills,Acute 04/19/22 17:46:00 EDT, 08/22/21 17:46:00 EST, Capsule, [id number], Partial fill upon patient request if the prescription is for a schedul... Start Date: 08/22/21 Stop Date: 04/19/22 Status: Ordered ascorbic acid 1000 mg oral tablet 1 tablet = 1,000 mg, By Mouth, 2 times a day, # 90 tablet, 1 Refills, Maintenance, 08/11/21 17:03:00 EST, Tablet, [id number], Partial fill upon patient request if the prescription is for a schedule II opioid drug., 153, cm, 06/27/21 7:47:00 ES... Start Date: 08/11/21 Status: Ordered baclofen 20 mg oral tablet 20 mg, 1, tablet, By Mouth, 4 times a day, # 360 tablet, Refills 1, Tot. Refills 1, Maintenance, 08/02/21 14:09:00 EST, Route to Pharmacy Electronically, [facility], Partial fill upon patient request if the prescription is for a... Start Date: 08/02/21 Status: Ordered bifidobacterium-lactobacillus oral tablet 2 tablet, By Mouth, 2 times a day, [facility] Brand please (Senior Wellness), # 360 tablet, 3 Refills, Maintenance, 08/11/21 17:02:00 EST, Tablet, [facility]acy #[id number], Partial fill upon patient [...] 01/09/22 14:17:00 EDT, 07/13/21 14:17:00 EST, Tablet, [facility], Partial fill upon patient request if the prescription is for a schedul... Start Date: 07/13/21 Stop Date: 01/09/22 Status: Ordered calcium carbonate 600 mg oral tablet 1 tablet = 600 mg, By Mouth, 2 times a day, # 180 tablet, 1 Refills, Maintenance, 01/09/22 14:17:00EDT, Tablet, [facility]acy #[id number], Partial fill upon patient [...] toileting hyg... Start Date: 05/27/21 Status: Ordered Fully powered virginia lift with [...] 04/05/21 13:39:00 EDT, Route to Pharmacy Electronically, [facility], Partial fill upon patient request if the prescription is for a schedule... Start Date: 04/05/21 Stop Date: 05/05/21 Status: Ordered gabapentin 300 mg oral capsule 300 mg, 1, capsule, By Mouth, Daily at bedtime, # 90 capsule, Refills 2, Tot. Refills 2, Maintenance, 08/02/21 14:08:00 EST, Route to Pharmacy Electronically, [facility], Partial fill upon patient request if the prescription is... Start Date: 08/02/21 Status: Ordered levothyroxine 0.088 mg oral tablet 1 tablet = 88 mcg, By Mouth, Daily, # 90 tablet, 1 Refills, Maintenance, 07/13/21 14:09:00 EST, Tablet, [facility], Partial fill upon patient request if the prescription is fora schedule II opioid drug., 153, cm, 06/27/21 7:47:... Start Date: 07/13/21 Status: Ordered lisinopril 5 mg oral tablet 5 mg, 1, tablet, By Mouth, Daily, # 90 tablet, Refills 1, Tot. Refills 1, Maintenance, 07/13/21 14:08:00 EST, Route to Pharmacy Electronically, [facility], Partial fill upon patient request if the prescription is for a schedule... Start Date: 07/13/21 Status: Ordered Power Virginia Lift with [place] split-leg sling Power Virginia Lift with [place] split-leg sling, See Instructions, # 1 each, Refills 0, Tot. Refills 0, Maintenance, Dx: Multiple Sclerosis induced Paraplegia Length of time needed: indefinite Purpose: Transfer to[facility] bed to wheelchair, commode,... Start Date: 08/10/21 Status: Ordered Provigil 200 mg oral tablet 1 tablet = 200 mg, By Mouth, 2 times a day, takes in am and lunchtime brand name only - dispense aswritten, # 56 tablet, 1 Refills, Maintenance, 07/14/21 17:19:00 EST, Tablet, [facility], Partial fill upon patient request if t... Start Date: 07/14/21 Stop Date: 09/08/21 Status: Ordered Turmeric = 750 mg, By Mouth, 2 times a day, 0 Refills, Maintenance, 07/09/18 8:47:35 EST Start Date: 07/09/18 Status: Ordered Vitamin D3 2000 intl units oral capsule 1 capsule, By Mouth, Daily, # 90 capsule, 1 Refills, 08/11/21 17:04:00 EST, [facility]acy #[id number], 153, cm, 06/27/21 7:47:00 EST, Height [...]
--- OUTSIDE RECORDS SUMMARY | 2024-03-17 13:26 | XMS_ITS | Continuity of Care Document ---
Author Organization [facility] Address [address], [address], [address] [place] [id number]- Care Team Providers Care Shell Core [employer] Molding Supervisor Name Role Phone Juan Manuel LIM, Kristen December Karla Primary Care Physic juan alberto Encounter [facility] Date(s): 08/11/22 - 09/10/22 [facility] [address], [address], [address] [place] [id number]- Allergies, Adverse Reactions, Alerts Substance Reaction Severity Status morphine hives, SOB Active penicillins hive Active Wellbutrin rash Active Reglan Active cannabis (Schedule I substance) itching/vomiting Active Other Environmental Allergy mercury-fillings Active contrast media (iodine-based) itching throughout body Active Immunizations Given and Recorded Vaccine Date Status Refusal Reason pneumococcal 20-valent conjugate vaccine 05/30/22 Recorded [id number] 12y+ bivalent booster vax 05/12/22 Recorded influenza [...] vaccine, inactivated 04/26/09 Arnoldo rded SARS-CoV-2 mRNA (skxlfsn-zobz-gagna) vax 03/10/22 Recorded SARS-CoV-2 mRNA (pwhfeis-eyac-bhknr) vax 10/04/21 Recorded SARS-CoV-2 (COVID-19) mRNA BNT-162b2 [...] day, # 90 tablet, 1 Refills, Maintenance, 08/24/22 16:47:00 EST, Tablet, [facility], Partial fill upon patient request if the prescription is for a schedule II opioid drug., 155, cm, 06/15... Start Date: 08/24/22 Status: Ordered baclofen 20 mg oral tablet 20 mg, 1, tablet, By Mouth, 3 times a day, # 270 tablet, Refills 2, Tot. Refills 2, Maintenance, 12/09/22 12:44:00 EDT, Route to Pharmacy Electronically, [facility], Partial fill upon patient request if the prescription is for a... Start Date: 12/09/22 Stop Date: 09/05/23 Status: Ordered baclofen 20 mg oral tablet 20 mg, 1, tablet, By Mouth, 3 times a day, for 90 days, # 270 tablet, Refills 2, Tot. Refills 2, Hard Stop 12/09/22 12:44:00 EDT, 03/14/22 12:44:00 EDT, Route to Pharmacy Electronically, [facility]/pharmacy#[id number], Partial fill upon patient request [...] 01/06/23 14:02:00 EDT, 01/11/22 14:02:00 EDT, Tablet, [facility], Partial fill upon patient request if the prescription is for a schedul... Start Date: 01/11/22 Stop Date: 01/06/23 Status: Ordered Centrum Silver Ultra Women's oral tablet 1 tablet, By Mouth, Daily, 0 Refills, Maintenance, 07/09/18 8:43:55 EST Start Date: 07/09/18 Status: Ordered [facility] SENIOR PROBIOTIC CAPSULE TAKE 2 CAPSULES BY MOUTH TWICE A DAY Start Date: 11/01/21 Status: Ordered [facility] Senior Probiotic Capsule [facility] Senior Probiotic Capsule, See Instructions, [...] 01/02/22 9:03:00 EDT, Route to Pharmacy Electronically, [facility], Partial fill upon patient [...] 01/11/22 13:45:00 EDT, Route to Pharmacy Electronically, [facility] AD[facility]... Start Date: 01/11/22 Status: Ordered gabapentin 300 mg oral capsule 300 mg, 1, capsule, By Mouth, 3 times a day, # 270 capsule, Refills 2, Tot. Refills 2, Maintenance,05/21/22 7:44:00 EDT, Route to Pharmacy Electronically, [facility], Partial fill upon patient request if the prescription is for... Start Date: 05/21/22 Stop Date: 02/15/23 Status: Ordered Juzo Compression Hose Juzo Compression Hose, See Instructions, # 2 each, Refills 2, Tot. Refills 2, Maintenance, 20-30mmghg FF Petite (short),Tszwt-saj-jxaw, soft knee, black silicone Stock code [id number] Part #[id number], Size III. [facility] [id number], 12/07/21 11:32:00 EDT,... Start Date: 12/07/21 Status: Ordered levothyroxine 0.088 mg oral tablet 1 tablet = 88 mcg, By Mouth, Daily, # 90 tablet, 1 Refills, Maintenance, 09/08/22 14:26:00 EST, Tablet, [facility] [place] [facility], Partial fill upon patient request [...] 16:03:00 EDT, [facility] STORE [id number], 155, cm, 05/25/22 13:44:00 EDT, Height, 93.4, [...] 03/12/22 Status: Ordered Power Virginia Lift with [place] split-leg sling Power Virginia Lift with [place] split-leg sling, See Instructions, # 1 each, Refills 0, Tot. Refills 0, Maintenance, Dx: Multiple Sclerosis induced Paraplegia Length of time needed: indefinite Purpose: Transfer to[facility] bed to [facility], commode,... Start Date: 08/16/21 Status: Ordered predniSONE 10 mg oral tablet See Instructions, 3 tablets x 3 days, 2 tabs x 3 days then 1 tab x 3 days then STOP, # 18 tablet, 0Refills, Maintenance, 08/24/22 17:06:00 EST, [facility]/pharmacy #[id number], Partial fill [...] 11/01/22 17:46:00 EDT, 07/12/22 17:46:00 EST, Tablet[id number] Partial fill upon pa... Start Date: 07/12/22 Stop Date: 11/01/22 Status: Ordered Provigil 200 mg oral tablet 1 tablet = 200 mg, By Mouth, 2 times a day, takes in am and lunchtime brand name only - dispense aswritten, # 56 tablet, 0 Refills, Maintenance, 09/07/22 14:36:00 EST, Tablet, [facility]/pharmacy #[id number], [...] 10/25/22 18:25:00 EDT, 07/05/22 18:25:00 EST, [facility]t, [facility]... Start Date: 07/05/22 Stop [...] tablet, 3 Refills, Maintenance, 02/01/22 12:42:00EDT, Tablet, [facility], Partial fill upon patient request [...] Member Role: Primary Care Nurse Address: Address: [address] [place] [address] [address] [facility] [place] [address]- [place] Name: Emma Mendoza RN Position: [facility] RN Member Role: Primary Care Nurse Name: Juan Manuel LIM, Kristen Acosta Position: [facility] Primary Care Physician Member Role: PCP Address: Address: [address] [place] [id number]- Name: Jade Medina Position: [facility] RN Member Role: Primary Care Nurse Name: Komal Goodrich Position: [facility] Outreach Member Role: Lifetime Consulting Physician Name: Godfrey Cano Position: [facility] RN Member Role: Primary Care Nurse Name: Anette Miranda RN Position: [facility] Onco RN Member Role: Primary Care Nurse Care Team Related Persons Name: DIOMEDES WARNER Address: home [address] [place] [address] Name: MOO HOWELL Address: home [address] [place] [address] Name: MARLON GENTILE
--- OUTSIDE RECORDS SUMMARY | 2024-03-17 13:26 | XMS_ITS | Continuity of Care Document ---
Author Organization [facility] Address [address] [place] [address]- Care Team Providers Care Drafter Chief Design Name Role Phone Rey CENTENO, Javy Lerma Primary Care Physician Encounter [facility] Date(s): 04/04/21 - 05/04/21 [facility] [address] [place], [place] [address] Allergies, Adverse Reactions, Alerts Substance Reaction Severity Status morphine hives, SOB Active penicillins hive Active Wellbutrin rash Active cannabis (Schedule I substance) itching/vomiting Active Other Environmental Allergy mercury-fillings Active contrast media (iodine-based) itching throughout body Active Reglan Active Immunizations Given and Recorded [...] Recorded Medications acetaminophen 500 mg oral capsule 1 capsule = 500 mg, By Mouth, 3 times a day, PRN for pain, for 30 days, # 90 capsule, 1 Refills, Acute 06/04/21 13:33:00 EDT, 04/05/21 13:33:00 EDT, Capsule, [id number], Partial fill upon patient request if the prescription is for a schedule I... Start Date: 04/05/21 Stop Date: 06/04/21 Status: Ordered ascorbic acid 1000 mg oral tablet 1 tablet = 1,000 mg, By Mouth, 2 times a day, # 90 tablet, 1 Refills, Maintenance, 04/05/21 13:34:00 EDT, Tablet, [id number], Partial fill upon patient request if the prescription is for a schedule II opioid drug., 153, cm, 04/04/21 9:04:00 ED... Start Date: 04/05/21 Status: Ordered Azelex 20% topical cream 1 applicator, Topically, [...] By Mouth, 2 times a day, # 60 tablet, 0 Refills, Maintenance, 04/25/21 14:08:00 EDT, Tablet, [facility]/pharmacy #[id number], Partial fill upon patient request if the prescription is for a schedule II opioid drug., 153, cm, 04/25/21 13:34:00 EDT... Start Date: 04/25/21 Status: Ordered Centrum Silver Ultra Women's oral tablet 1 tablet, By Mouth, Daily, 0 Refills, Maintenance, 07/09/18 8:43:55 EST Start Date: 07/09/18 Status: Ordered Colace sodium 100 mg oral capsule 100 mg, 1, capsule, By Mouth, 2 times a day, PRN, # 60 capsule, Refills 0, Tot. Refills 0, Maintenance, as needed for constipation, 02/18/21 10:23:00 EDT, Route to Pharmacy Electronically, [facility]/pharmacy #[id number], Partial fill upon patient request if the p... Start Date: 02/18/21 Stop Date: 03/20/21 Status: Ordered Copaxone 20 mg/mL subcutaneous solution = 20 mg, Subcutaneous Injection, Daily, 0 Refills, Maintenance, 07/09/18 9:29:49 EST Start Date: 07/09/18 Status: Ordered cranberry oral capsule 0 Refills, Maintenance, 03/25/19 15:47:34 EDT Start Date: 03/25/19 Status: Ordered Enemeez Mini 283 mg rectal enema 1 each = 283 mg, Rectally, Daily, PRN as needed for constipation, # 90 each, 0 Refills, Maintenance, 04/05/21 13:29:00 EDT, [id number], Partial fill upon patient request if the prescription is for a schedule II opioid drug., 153, cm, 04/04/21... Start Date: 04/05/21 Status: Ordered furosemide 40 mg oral tablet 40 mg, 1, tablet, By Mouth, Daily, # 90 tablet, Refills 2, Tot. Refills 2, Maintenance, 04/05/21 13:39:00 EDT, Route to Pharmacy Electronically, [facility], Partial fill upon patient request if the prescription is for a schedule... Start Date: 04/05/21 Stop Date: 05/05/21 Status: Ordered gabapentin 250 mg/5 mL oral solution 12 mL = 600 mg, By Mouth, 4 times a day, # 1,440 mL, 0 Refills, Maintenance, 02/18/21 10:22:00 EDT,Liquid, [id number] Partial fill upon patient request if the prescription is for a scheduleII opioid drug. Ok to dispense similar quantity if... Start Date: 02/18/21 Stop Date: 03/20/21 Status: Ordered levothyroxine 0.088 mg oral tablet 1 tablet = 88 mcg, By Mouth, Daily, # 90 tablet, 1 Refills, Maintenance, 04/05/21 13:40:00 EDT, Tablet, [facility], Partial fill upon patient request if the prescription is fora schedule II opioid drug., 153, cm, 04/04/21 9:04:... Start Date: 04/05/21 Status: Ordered lisinopril 5 mg oral tablet 5 mg, 1, tablet, By Mouth, Daily, # 90 tablet, Refills 1, Tot. Refills 1, Maintenance, 04/05/21 13:40:00 EDT, Route to Pharmacy Electronically, [facility], Partial fill upon patient request if the prescription is for a schedule... Start Date: 04/05/21 Status: Ordered Magnesium Citrate By Mouth, 0 Refills, Maintenance, 11/28/18 16:25:54 EDT Start Date: 11/28/18 Status: Ordered methenamine hippurate 1 gm oral tablet 1 tablet = 1 Gm, By Mouth, 2 times a day, # 60 tablet, 1 Refills, Maintenance, 04/05/21 13:35:00 EDT, [facility]/pharmacy #[id number], Partial fill upon patient request if the prescription is for a schedule II opioid drug., 153, cm, 04/04/21 9:04:00 EDT, Height Start Date: 04/05/21 Stop Date: 06/04/21 Status: Ordered probiotic 10billion cfu probiotic 10billion [...] brand name only - dispense aswritten, # 180 tablet, 0 Refills, Maintenance, 04/05/21 13:30:00 EDT, Tablet, [facility]/pharmacy #[id number], Partial fill upon patient request if the prescriptio... Start Date: 04/05/21 Status: Ordered SloFe 50mg SloFe 50mg, Refills [...] intl units oral capsule 1 capsule = 50 mcg, By Mouth, Daily, # 90 capsule, 0 Refills, Maintenance, 04/05/21 13:46:00 EDT, Capsule, [id number], Partial fill upon patient request if the prescription is for a schedule II opioid drug., 153, cm, 04/04/21 9:04:00 EDT, Height Start Date: 04/05/21 Stop Date: 05/05/21 Status: Ordered Xarelto 20 mg oral tablet [...]
--- OUTSIDE RECORDS SUMMARY | 2024-03-17 13:26 | XMS_ITS | Continuity of Care Document ---
Author Organization [facility] Address [address] [place] [address]- Care Team Providers Care Supreme Court Justice Name Role Phone Juan Manuel LIM, Kristen Acosta Primary Care Physic juan alberto Encounter [facility] Date(s): 03/03/22 - 04/02/[address] [address]- Allergies, Adverse Reactions, Alerts Substance Reaction Severity [...] vaccine, inactivated 04/26/09 Arnoldo rded SARS-CoV-2 mRNA ([id number]-rtyv-ofqjn) vax 03/10/22 Recorded SARS-CoV-2 mRNA (dtqybww-ruxl-rzvap) vax 10/04/21 Recorded SARS-CoV-2 (COVID-19) mRNA BNT-162b2 [...] 04/19/22 17:46:00 EDT, 08/22/21 17:46:00 EST, Capsule, [facility]/pharmacy #[id number], Partial fill upon patient request if the prescription is for a schedul... Start Date: 08/22/21 Stop Date: 04/19/22 Status: Ordered ascorbic acid 1000 mg oral tablet 1 tablet = 1,000 mg, By Mouth, 2 times a day, # 90 tablet, 2 Refills, Maintenance, 02/28/22 8:12:00EDT, Tablet, [facility]/pharmacy #[id number], Partial fill upon patient request if the prescription is for a schedule II opioid drug., 155, cm, 02/23/22 8:04:00 EDT... Start Date: 02/28/22 Status: Ordered baclofen 20 mg oral tablet 20 mg, 1, tablet, By Mouth, 3 times a day, # 270 tablet, Refills 2, Tot. Refills 2, Maintenance, 12/09/22 12:44:00 EDT, Route to Pharmacy Electronically, [facility], Partial fill upon patient request if the prescription is for a... Start Date: 12/09/22 Stop Date: 09/05/23 Status: Ordered baclofen 20 mg oral tablet 20 mg, 1, tablet, By Mouth, 3 times a day, for 90 days, # 270 tablet, Refills 2, Tot. Refills 2, Hard Stop 12/09/22 12:44:00 EDT, 03/14/22 12:44:00 EDT, [facility]ically, [id number] Partial fill upon patient request if the pre... Start Date: 03/14/22 Stop Date: 12/09/22 Status: Ordered bifidobacterium-lactobacillus oral tablet 2 tablet, By Mouth, 2 times a day, [facility] Brand please (Senior Wellness), # 360 tablet, 3 Refills, Maintenance, 08/11/21 17:02:00 EST, Tablet, [id number] Partial fill upon patient request if the prescription is for a schedule II opioid drug., 2... Start Date: 08/11/21 Stop Date: 08/06/22 Status: Ordered calcium carbonate 600 mg oral tablet 1 tablet = 600 mg, By Mouth, 2 times a day, # 180 tablet, 2 Refills, Maintenance, 01/06/23 14:02:00EDT, Tablet, [id number], Partial fill upon patient request if the prescription is for a schedule II opioid drug., 155, cm, 02/23/22 8:04:00 EDT... Start Date: 01/06/23 Stop Date: 10/03/23 Status: Ordered calcium carbonate 600 mg oral tablet 1 tablet = 600 mg, By Mouth, 2 times a day, for 90 days, # 180 tablet, 3 Refills, Hard Stop 01/06/23 14:02:00 EDT, 01/11/22 14:02:00 EDT, Tablet, [facility], Partial fill upon patient request if the prescription is for a schedul... Start Date: 01/11/22 Stop Date: 01/06/23 Status: Ordered Centrum Silver Ultra Women's oral tablet 1 tablet, By Mouth, Daily, 0 Refills, Maintenance, 07/09/18 8:43:55 EST Start Date: 07/09/18 Status: Ordered [facility] SENIOR PROBIOTIC CAPSULE TAKE 2 CAPSULES BY MOUTH TWICE A DAY Start Date: 11/01/21 Status: Ordered diclofenac 1% topical gel 1 application, Topically, 4 times a day, Apply 4 gram QID prn to affected pain to dropped foot - not to exceed 16 grams/day/single joint of lower extremities, # 100 Gm, 3 Refills, Maintenance, 04/02/22 21:13:00 EDT, Gel, [facility] [employer] [facility]... Start Date: 04/02/22 Status: Ordered electric [...] 450 mL, 5 Refills, 03/02/22 8:08:00 EDT, [facility]/pharmacy #[id number], 155, cm, 02/23/22 8:04:00 EDT, Height, [...] 01/02/22 9:03:00 EDT, Route to Pharmacy Electronically, [facility], Partial fill upon patient [...] 13:45:00 EDT, Route to Pharmacy Electronically, [facility]... Start Date: 01/11/22 Status: Ordered gabapentin 300 mg oral capsule 300 mg, 1, capsule, By Mouth, 3 times a day, # 270 capsule, Refills 2, Tot. Refills 2, Maintenance,05/21/22 7:44:00 EDT, Route to Pharmacy Electronically, [facility], Partial fill upon patient request if the prescription is for... Start Date: 05/21/22 Stop Date: 02/15/23 Status: Ordered gabapentin 300 mg oral capsule 300 mg, 1, capsule, By Mouth, 3 times a day, for 30 days, # 90 capsule, Refills 2, Tot. Refills 2, Hard Stop 05/21/22 7:44:00 EDT, 02/20/22 7:44:00 EDT, [facility] Pharm[facility] Electronically, [id number] Partial fill upon patient request if the pre... Start Date: 02/20/22 Stop Date: 05/21/22 Status: Ordered Juzo Compression Hose Juzo Compression Hose, See Instructions, # 2 each, Refills 2, Tot. Refills 2, Maintenance, 20-30mmghg FF Petite (short),[id number], soft knee, black silicone Stock code [id number] Part #[id number], Size III. [facility] [id number], 12/07/21 11:32:00 EDT,... Start Date: 12/07/21 Status: Ordered levothyroxine 0.088 mg oral tablet 1 tablet = 88 mcg, By Mouth, Daily, # 90 tablet, 3 Refills, Maintenance, 03/31/22 13:45:00 EDT, Tablet, [facility], Partial fill upon patient request if the prescription is fora schedule II opioid drug., 155, cm, 03/14/22 11:11... Start Date: 03/31/22 Status: Ordered lisinopril 5 mg oral tablet 5 mg, 1, tablet, By Mouth, Daily, # 90 tablet, Refills 3, Tot. Refills 3, Maintenance, 02/24/22 15:53:00 EDT, Route to Pharmacy Electronically, [facility]/pharmacy #[id number], Partial fill upon patient request if the prescription is for a schedule II opioid drug.... Start Date: 02/24/22 Status: Ordered Potassium Chloride (Eqv-K-Tab) 20 mEq oral tablet, extended release 1 tablet = 20 mEq, By Mouth, Daily, for low potassium, # 10 tablet, 0 Refills, Maintenance, 03/02/22 19:14:00 EDT, [facility]/pharmacy #[id number], Partial fill upon patient request if the prescription is for a schedule II opioid drug., 155, cm, 02/23/22 8:04:00 E... Start Date: 03/02/22 Stop Date: 03/12/22 Status: Ordered Power [place] Lift with [place] split-leg sling Power [place] Lift with [place] split-leg sling, See Instructions, # 1 each, [...] 3 Refills, Maintenance, 02/28/22 8:12:00 EDT, Tablet, [facility]/pharmacy #[id number], Partial fill upon patient request if [...] 90 capsule, 2 Refills, 02/28/22 8:13:00 EDT, [facility]/pharmacy #[id number], 155,cm, 02/23/22 8:04:00 EDT, Height, 93.4, kg, 11/01/21 16:52:00 EDT, Dry Weight Start Date: 02/28/22 Status: Ordered Xarelto 20 mg oral tablet 1 tablet = 20 mg, By Mouth, Daily at supper, # 90 tablet, 3 Refills, Maintenance, 02/01/22 12:42:00EDT, Tablet, [facility], Partial fill upon patient [...]
--- OUTSIDE RECORDS SUMMARY | 2024-03-17 13:27 | XMS_ITS | Continuity of Care Document ---
Author Organization [facility] Address [address] [place] [address]- Care Team Providers Care Intermodal Owner Operator Truck Driver Name Role Phone Maria Del Carmen Rosas MD Primary Care Physician [phone] [id number] Date(s[facility] 09/[facility]19 - 09/15/19 [facility] [address] [place] [id number]- [facility] Encounter Diagnosis Spasticity(Discharge Diagnosis) - 09/08/19 MS (multiple sclerosis)(Discharge Diagnosis) - 09/08/19 Bladder spasm(Discharge Diagnosis) - 09/08/19 Muscle weakness(Discharge Diagnosis) - 09/08/19 Attending Physician: Win Holden MD Referring Physician: Maria Del Carmen Rosas MD Allergies, Adverse Reactions, Alerts Substance Reaction Severity Status morphine hives, SOB Active penicillins hive Active Wellbutrin rash Active cannabis (Schedule I substance) itching/vomiting Active Other Environmental Allergy mercury-fillings Active contrast media (iodine-based) itching throughout body Active Medications Acetaminophen = 1,000 mg, By Mouth, 4 times a day, 0 Refills, Maintenance, 07/09/18 8:39:27 EST Start Date: 07/09/18 Status: Ordered Azelex 20% topical cream 1 applicator, Topically, 2 times a day, 0 Refills, Maintenance, 07/09/18 9:28:21 EST Start Date: 07/09/18 Status: Ordered baclofen 10 mg oral tablet 30 mg, 3, tablet, By Mouth, 4 times a day, Refills 0, Maintenance, 07/09/18 8:37:55 EST Start Date: 07/09/18 Status: Ordered Centrum Silver Ultra Women's oral tablet 1 tablet, By Mouth, Daily, 0 Refills, Maintenance, 07/09/18 8:43:55 EST Start Date: 07/09/18 Status: Ordered citric acid-potassium bicarbonate 10 mEq oral tablet, effervescent 1 tablet = 10 mEq, By Mouth, 2 times a day, 0 Refills, Maintenance, 11/28/18 16:25:30 EDT Start Date: 11/28/18 Status: Ordered Copaxone 20 mg/mL subcutaneous solution [...] 9:31:04 EST Start Date: 07/09/18 Status: Ordered Gabapentin = 300 mg, By Mouth, Daily at bedtime, 0 Refills, Maintenance, 11/26/15 11:13:50 Start Date: 11/26/15 Status: Ordered K-Phos No. 2 0 Refills, Maintenance, 03/25/19 15:43:41 EDT Start Date: 03/25/19 Status: Ordered levothyroxine 0.088 mg oral tablet 1 tablet = 88 mcg, By Mouth, Daily, # 30 tablet, 0 Refills, Maintenance, 11/15/14 6:18:12, Tablet Start Date: 11/15/14 Status: Ordered Lisinopril = 10 mg, By Mouth, Daily, 0 Refills, Maintenance, 07/09/18 9:27:48 EST Start Date: 07/09/18 Status: Ordered Lovenox 120 mg/0.8 mL injectable solution = 120 mg, Subcutaneous Injection, Daily, # 5.6 mL, 0 Refills, Maintenance, 11/28/18 16:22:23 EDT, Solution Start Date: 11/28/18 Stop Date: 12/05/18 Status: Ordered Lovenox 120 mg/0.8 mL injectable solution = 120 mg, Subcutaneous Infusion, Daily, 0 Refills, Maintenance, 07/09/18 8:37:09 EST Start Date: 07/09/18 Status: Ordered Magnesium Citrate By Mouth, 0 Refills, Maintenance, 11/28/18 16:25:54 EDT Start Date: 11/28/18 Status: Ordered probiotic 10billion cfu probiotic 10billion [...] EST, Compound Start Date: 10/02/18 Status: Ordered Slow Fe 160 mg ER By Mouth, Daily, 0 Refills, Maintenance, 11/26/15 11:15:38 Start Date: 11/26/15 Status: Ordered Turmeric = 750 mg, By Mouth, 2 times a day, 0 Refills, Maintenance, 07/09/18 8:47:35 EST Start Date: 07/09/18 Status: Ordered vesicare 2.5mg vesicare 2.5mg, Refills 0, Maintenance, 10/02/18 13:16:15 EST, Compound Start Date: 10/02/18 Status: Ordered Vitamin B12 0 Refills, Maintenance, 10/02/18 13:17:49 EST Start Date: 10/02/18 Status: Ordered Vitamin C 1000 mg oral tablet 2 tablet = 2,000 mg, By Mouth, Daily, # 30 tablet, 0 Refills, Maintenance, 12/08/16 8:48:24, Tablet Start Date: 12/08/16 Status: Ordered Vitamin D3 2000 intl units oral capsule 1 capsule = 2,000 International_Units, By Mouth, Daily, 0 Refills, Maintenance, 07/09/18 8:44:15 EST Start Date: 07/09/18 Status: Ordered Problem List Condition Effective Dates Status Health Status Inform ant H/O: stroke(Confirmed) Active H/O osteopenia(Confirmed) Active Hypothyroidism(Confirmed) Active MS (multiple sclerosis)(Confirmed) Active Muscle weakness(Confirmed) Active Paraplegia(Confirmed) Active Bladder spasm(Confirmed) Active Spasticity(Confirmed) Active Diagnosis Diagnosis Type Effective Dates Health Status Clinical Service Informant Spasticity Discharge Diagnosis 09/08/19 MS (multiple sclerosis) Discharge Diagnosis 09/08/19 Bladder spasm Discharge Diagnosis 09/08/19 Muscle weakness Discharge Diagnosis 09/08/19 Vital Signs Most recent to oldest [Reference Range]: 1 Height 153 cm (09/08/19 12:23 PM) Oxygen Saturation [94-100 %] 99 % (09/08/19 12:23 PM) Pulse Rate [55-90 bpm] 76 bpm (09/08/19 12:23 PM) Blood Pressure [90-138/55-84 mm Hg] 120/ 75mm Hg (09/08/19 12:23 PM) Temperature [96.8-100.4 DegF] 97.0 DegF (09/08/19 12:23 PM) Blood pressure sites Arm, left (09/08/19 12:23 PM) Temperature Route Temporal (09/08/19 12:23 PM) Social History Social History Type Response Smoking Status Never smoker entered on: 11/15/14 Sex
--- OUTSIDE RECORDS SUMMARY | 2024-03-17 13:27 | XMS_ITS | Continuity of Care Document ---
Author Organization [facility] Address [address] [place] [address]- Care Team Providers Care Steel Pourer Helper Name Role Phone Juan Manuel LIM, Kristen Acosta Primary Care Physic juan alberto [facility]counter [facility] Date[facility]): 03/12[facility]23 - 04/11/23 [facility] [address] [place] [address]- Allergies, Adverse Reactions, Alerts Substance Reaction Severity Status morphine hives, SOB Active penicillins hive Active Wellbutrin rash Active Reglan Active cannabis (Schedule I substance) itching/vomiting Active Other Environmental Allergy mercury-fillings Active contrast media (iodine-based) itching throughout body Active Immunizations Given and Recorded Vaccine Date Status Refusal Reason pneumococcal 20-valent conjugate vaccine 05/30/22 Recorded [id number] 12y+ bivalent booster vax 05/12/22 Recorded influenza [...] vaccine, inactivated 04/26/09 Arnoldo rded SARS-CoV-2 mRNA ([id number]) vax 03/10/22 Recorded SARS-CoV-2 mRNA ([id number]) vax 10/04/21 Recorded SARS-CoV-2 (COVID-19) mRNA BNT-162b2 [...] 1 Refills, Maintenance, 12/11/22 17:34:00 EDT, Tablet, [facility]/pharmacy #[id number], Partial fill upon patient request if the prescription is for a schedule II opioid drug., 155, cm, 10/10/22 13:40:00 E... Start Date: 12/11/22 Status: Ordered baclofen 20 mg oral tablet 20 mg, 1, tablet, By Mouth, 3 times a day, # 270 tablet, Refills 2, Tot. Refills 2, Maintenance, 12/09/22 12:44:00 EDT, Route to Pharmacy Electronically, [facility], Partial fill upon patient request if the prescription is for a... Start Date: 12/09/22 Stop Date: 09/05/23 Status: Ordered bifidobacterium-lactobacillus oral tablet 2 tablet, By Mouth, 2 times a day, [facility] Brand please (Senior Wellness), # 360 tablet, 3 Refills, Maintenance, 08/11/21 17:02:00 EST, Tablet, [facility]/pharmacy #[id number], Partial fill upon patient request if the prescription is for a schedule II opioid drug., 2... Start Date: 08/11/21 Stop Date: 08/06/22 Status: Ordered calcium carbonate 600 mg oral tablet 1 tablet = 600 mg, By Mouth, 2 times a day, # 180 tablet, 2 Refills, Maintenance, 01/06/23 14:02:00EDT, Tablet, [facility]/pharmacy #[id number], Partial fill upon patient request if the prescription is for a schedule II opioid drug., 155, cm, 02/23/22 8:04:00 EDT... Start Date: 01/06/23 Stop Date: 10/03/23 Status: Ordered Centrum Silver Ultra Women's oral tablet 1 tablet, By Mouth, Daily, 0 Refills, Maintenance, 07/09/18 8:43:55 EST Start Date: 07/09/18 Status: Ordered [facility] SENIOR PROBIOTIC CAPSULE TAKE 2 CAPSULES BY MOUTH TWICE A DAY Start Date: 11/01/21 Status: Ordered [facility] Senior Probiotic Capsule [facility] Senior Probiotic Capsule, See Instructions, [...] 450 mL, 5 Refills, 03/02/22 8:08:00 EDT, [facility]/pharmacy #[id number], 155, cm, 02/23/22 8:04:00 [...] Refills, Soft Stop, 03/27/23 18:43:00 EDT, Tablet, [facility]/pharmacy #[id number], Partial fill upon patient request if the prescription is for a schedule II opioid... Start Date: 03/27/23 Status: Ordered fluconazole 150 mg oral tablet 1 tablet = 150 mg, By Mouth, Every week, # 4 tablet, 1 Refills, Soft Stop, 05/26/22 8:59:00 EDT, Tablet, [facility]/pharmacy #[id number], Partial fill upon patient [...] 01/17/23 19:36:00 EDT, Route to Pharmacy Electronically, [facility], 155, cm, 10/10/22 [...] 2, Maintenance, Juzo Compression Hose 2 pairs [id number] Soft Knee FF Petite 20-30 mmHg Silicone, Black Stock Code [id number] I I I Part #[id number] Size I I I SKU... Start Date: 03/12/23 Status: Ordered levothyroxine 0.088 mg oral tablet 1 tablet = 88 mcg, By Mouth, Daily, # 90 tablet, 3 Refills, Maintenance, 03/15/23 17:17:00 EDT, Tablet, [facility], Partial fill upon patient request if the prescription is fora schedule II opioid drug., 155, cm, 03/15/23 17:11... Start Date: 03/15/23 Status: Ordered lisinopril 5 mg oral tablet 1, tablet, By Mouth, Daily, # 90 tablet, Refills 3, Tot. Refills 3, Maintenance, 03/15/23 17:16:00 EDT, Route to Pharmacy Electronically, [facility], 155, cm, 03/15/23 17:11:00EDT, Height, 93.4, kg, 11/01/21 16:52:00 EDT, Dry W... Start Date: 03/15/23 Status: Ordered Mapap 500 mg oral capsule See Instructions, TAKE 2 CAPSULES BY MOUTH 4 TIMES A DAY NEEDED FOR PAIN, # 480 capsule, 0 Refills, Maintenance, 03/12/23 9:16:00 EDT, [facility]/pharmacy #[id number], 155, cm, 10/10/22 13:40:00 EST, Height, 93.4, kg, 11/01/21 16:52:00 EDT, Dry Weight Start Date: 03/12/23 Status: Ordered Power [place] Lift with [place] split-leg sling Power [place] Lift with [place] split-leg sling, See Instructions, # 1 each, [...] 5 Refills, Maintenance, 12/11/22 17:34:00 EDT, Tablet, [facility]/pharmacy #[id number], Partial fill upon patient [...] Team Personnel Name: Juliann Rich RN Position: [facility] RN Member Role: Primary Care Nurse Name: Elsa Allen NP Position: Reference Physician Member Role: Primary Care Nurse Address: Address: [address] [place] [address] [address] [place] [address]- Name: Emma Mendoza RN Position: [facility] AMB Nurse Member Role: Primary Care Nurse Name: Juan Manuel LIM, Kristen Acosta Position: [facility] Physician - Primary Care Member Role: PCP Address: Address: [address] [place] [address]- Name: Komal Goodrich Position: [facility] Outreach Member Role: Lifetime Consulting Physician Name: Godfrey Cano Position: [facility] RN Member Role: Primary Care Nurse Name: Anette Miranda RN Position: [facility] Onco RN Member Role: Primary Care Nurse Care Team Related Persons Name: DIOMEDES WARNER Address: home [address] [place] [address] Name: MOO HOWELL Address: home [address] [place] [address] Name: MARLON GENTILE
--- OUTSIDE RECORDS SUMMARY | 2024-03-17 13:27 | XMS_ITS | Continuity of Care Document ---
Author Organization [facility] Address [address] [place] [address]- Care Team Providers Care Director Records Management Name Role Phone Juan Manuel LIM, Kristen Acosta Primary Care Physic juan alberto Encounter [facility] Date(s): 09/20/23 - 10/20/23 [facility] [address] [place] [id number] Allergies, Adverse Reactions, Alerts Substance Reaction Severity Status morphine hives, SOB Active penicillins hive Active Wellbutrin rash Active Reglan Active cannabis (Schedule I substance) itching/vomiting Active Other Environmental Allergy mercury-fillings Active contrast media (iodine-based) itching throughout body Active Immunizations Given and Recorded Vaccine Date Status Refusal Reason pneumococcal 20-valent conjugate vaccine 05/30/22 Recorded [id number] 12y+ bivalent booster vax 05/12/22 Recorded influenza [...] vaccine, inactivated 04/26/09 Arnoldo rded SARS-CoV-2 mRNA (rrohapu-riqe-mubxz) vax 03/10/22 Recorded SARS-CoV-2 mRNA ([id number]-nkzk-rvyfw) vax 10/04/21 Recorded SARS-CoV-2 (COVID-19) mRNA BNT-162b2 [...] 1 Refills, Maintenance, 08/01/23 13:53:00 EST, Tablet, [facility]/pharmacy #[id number], Partial fill upon [...] 09/05/23 12:44:00 EST, Route to Pharmacy Electronically, [facility], Partial fill upon patient req... Start Date: 09/05/23 Stop Date: 06/01/24 Status: Ordered baclofen 20 mg oral tablet 20 mg, 1, tablet, By Mouth, 3 times a day, # 270 tablet, Refills 2, Tot. Refills 2, Maintenance, 06/01/24 12:44:00 EDT, Route to Pharmacy Electronically, [facility]/pharmacy #[id number], Partial fill upon patientrequest if the prescription is for a schedule II op... Start Date: 06/01/24 Stop Date: 02/26/25 Status: Ordered baclofen 20 mg oral tablet 20 mg, 1, tablet, By Mouth, 3 times a day, for 90 days, # 270 tablet, Refills 2, Tot. Refills 2, Hard Stop 06/01/24 12:44:00 EDT, 09/05/23 12:44:00 EST, Route to Pharmacy Electronically, [facility]/pharmacy#[id number], Partial fill upon patient request if the pre... Start Date: 09/05/23 Stop Date: 06/01/24 Status: Ordered bifidobacterium-lactobacillus oral tablet 2 tablet, By Mouth, 2 times a day, [facility] Brand please (Senior Wellness), # 360 tablet, 3 Refills, Maintenance, 08/11/21 17:02:00 EST, Tablet, [facility]/pharmacy #[id number], Partial fill upon patient request if the prescription is for a schedule II opioid drug., 2... Start Date: 08/11/21 Stop Date: 08/06/22 Status: Ordered calcium carbonate 600 mg oral tablet 1 tablet = 600 mg, By Mouth, 2 times a day, # 180 tablet, 2 Refills, Maintenance, 01/06/23 14:02:00EDT, Tablet, [facility]/pharmacy #[id number], Partial fill upon patient request if the prescription is for a schedule II opioid drug., 155, cm, 02/23/22 8:04:00 EDT... Start Date: 01/06/23 Stop Date: 10/03/23 Status: Ordered Centrum Silver Ultra Women's oral tablet 1 tablet, By Mouth, Daily, 0 Refills, Maintenance, 07/09/18 8:43:55 EST Start Date: 07/09/18 Status: Ordered [facility] SENIOR PROBIOTIC CAPSULE TAKE 2 CAPSULES BY MOUTH TWICE A DAY Start Date: 11/01/21 Status: Ordered [facility] Senior Probiotic Capsule [facility] Senior Probiotic Capsule, See [...] 450 mL, 5 Refills, 03/02/22 8:08:00 EDT, [facility]/pharmacy #[id number], 155, cm, 02/23/22 [...] Refills, Soft Stop, 03/27/23 18:43:00 EDT, Tablet, [facility]/pharmacy #[id number], Partial fill upon patient request if the prescription is for a schedule II opioid... Start Date: 03/27/23 Status: Ordered fluconazole 150 mg oral tablet 1 tablet = 150 mg, By Mouth, Every week, # 4 tablet, 1 Refills, Soft Stop, 05/26/22 8:59:00 EDT, Tablet, [facility]/pharmacy #[id number], Partial fill upon [...] 2, Maintenance, Juzo Compression Hose 2 pairs [id number]-rhf-[id number] Soft Knee FF Petite 20-30 mmHg Silicone, Black Stock Code [id number] I I I Part #[id number] Size I I I SKU... Start Date: 03/12/23 Status: Ordered levothyroxine 0.088 mg oral tablet 1 tablet = 88 mcg, By Mouth, Daily, # 90 tablet, 1 Refills, Maintenance, 10/01/23 17:11:00 EST, Tablet, [facility]/pharmacy #[id number], Partial fill upon patient request if the prescription is for a schedule II opioid drug., 155, cm, 05/28/23 11:02:00 EDT, Height... Start Date: 10/01/23 Status: Ordered lisinopril 5 mg oral tablet 1, tablet, By Mouth, Daily, # 90 tablet, Refills 1, Tot. Refills 1, Maintenance, 10/01/23 17:15:00 EST, Route to Pharmacy Electronically, [facility]/pharmacy #[id number], 155, cm, 05/28/23 11:02:00 EDT, Height, 93.4, kg, 11/01/21 16:52:00 EDT, Dry Weight Start Date: 10/01/23 Status: Ordered Mapap 500 mg oral capsule See Instructions, TAKE 2 CAPSULES BY MOUTH 4 TIMES A DAY NEEDED FOR PAIN, # 480 capsule, 0 Refills, Maintenance, 10/01/23 17:46:00 EST, [facility]/pharmacy #[id number], 155, cm, 05/28/23 11:02:00 EDT, Height, 93.4, kg, 11/01/21 16:52:00 EDT, Dry Weight Start Date: 10/01/23 Status: Ordered Power [place] Lift with [place] split-leg sling Power [place] Lift with [place] split-leg sling, See Instructions, # 1 each, [...] 0 Refills, Maintenance, 08/08/23 18:05:00 EST, Tablet, [facility]/pharmacy #[id number], Partial fill upon [...] 03/14/24 2:50:00 EDT, 11/23/23 2:50:00 EDT, Tablet, [facility]/pharmacy #[id number], Part[place]... Start Date: 11/23/23 Stop Date: 03/14/24 Status: Ordered Provigil 200 mg oral tablet 1 tablet = 200 mg, By Mouth, 2 times a day, for 28 days, takes in am and lunchtime brand name only - dispense as written Brand name only, # 56 tablet, 3 Refills, Hard Stop 11/23/23 2:50:00 EDT, 08/03/23 2:50:00 EST, Tablet, [facility]... Start Date: 08/03/23 [...] 90 capsule, 1 Refills, 12/11/22 15:16:00 EDT, [facility]/pharmacy #[id number], 155, cm, 10/10/22 [...] Team Personnel Name: Juliann Rich RN Position: [facility] RN Member Role: Primary Care Nurse Name: Elsa Allen NP Position: [facility] Outreach Member Role: Primary Care Nurse Address: Address: [address] [place] [id number]- Name: Emma Mendoza RN Position: [facility] AMB Nurse Member Role: Primary Care Nurse Name: Juan Manuel LIM, Kristen Acosta Position: [facility] Physician - Primary Care Member Role: PCP Address: Address: [address], [place] [address]- Name: Komal Goodrich Position: [facility] Outreach Member Role: Lifetime Consulting Physician Name: Godfrey Cano Position: [facility] RN Member Role: Primary Care Nurse Name: Anette Miranda RN Position: [facility] Onco RN Member Role: Primary Care Nurse Care Team Related Persons Name: DIOMEDES WARNER Address: [address] [place] [address] Name: MOO HOWELL Address: [address] [place] [address] Name: MARLON GENTILE
--- OUTSIDE RECORDS SUMMARY | 2024-03-17 13:27 | XMS_ITS | Continuity of Care Document ---
Author Organization [facility] ter Address [address] [place] [id number]- Care Team Providers Care Director General Name Role Phone Rey CENTENO, Javy Lerma Primary Care Physician Encounter [facility] [place] Date(s): 02/16/21 - 02/18/[address] [id number] Encounter Diagnosis Trigeminal neuralgia of right side of face(Final) - 02/17/21 Discharge Disposition: A-D/C Home Attending Physician: Jade Morrell MD Admitting Physician: Peter Quiles MD Referring Physician: Not on Staff, Referring MD Allergies, Adverse Reactions, Alerts Substance Reaction Severity Status morphine hives, SOB Active penicillins hive Active Wellbutrin rash Active Reglan Active cannabis (Schedule I substance) itching/vomiting Active Other Environmental Allergy mercury-fillings Active contrast media (iodine-based) itching throughout body Active Medications acetaminophen 500 mg/15 mL oral liquid = 1,000 mg, By Mouth, 3 times a day, for 14 days, # 480 mL, 1 Refills, Acute 03/18/21 10:20:00 EDT,02/18/21 10:20:00 EDT, Liquid, [facility]/pharmacy #[id number], Partial fill upon patient request if the prescription is for a schedule II opioid drug., 153, cm, 07... Start Date: 02/18/21 Stop Date: 03/18/21 Status: Ordered Azelex 20% topical cream 1 [...] opioid drug. Start Date: 02/18/21 Status: Ordered Baclofen 5 mg/mL Suspension 20 mg, Liquid, By Mouth, 02/18/21 9:00:00 EDT Start Date: 02/18/21 Stop Date: 02/18/21 Status: Completed Botox 200 units injection See Instructions, 200 [...] 02/18/21 10:23:00 EDT, Route to Pharmacy Electronically, [facility]/pharmacy #[id number], Partial fill upon patient request if the [...] mL, 0 Refills, Maintenance, 02/18/21 10:22:00 EDT,Liquid, [facility]/pharmacy #[id number], Partial fill upon patient request if the prescription is for a scheduleII opioid drug. Ok to dispense similar quantity if... Start Date: 02/18/21 Stop Date: 03/20/21 Status: Ordered Gabapentin 50 mg/ml Liquid 600 mg, Liquid, By Mouth, 02/18/21 9:00:00 EDT Start Date: 02/18/21 Stop Date: 02/18/21 Status: Completed levothyroxine 0.088 mg oral tablet 1 tablet = 88 mcg, By Mouth, Daily, # 30 tablet, 0 Refills, Maintenance, 11/15/14 6:18:12, Tablet Start Date: 11/15/14 Status: Ordered Lisinopril = 5 mg, By Mouth, Daily, 0 Refills, Maintenance, 07/09/18 9:27:48 EST Start Date: 07/09/18 Status: Ordered Lisinopril Liquid 5 mg, Liquid, By Mouth, Hold for: SBP < 100, 02/18/21 9:00:00 EDT Start Date: 02/18/21 Stop Date: 02/18/21 Status: Completed Magnesium Citrate By Mouth, 0 Refills, Maintenance, [...] 0 Refills Start Date: 01/18/08 Status: Ordered Senna 8.6 mg oral tablet 17.2 mg, 2, tablet, By Mouth, Daily, PRN, # 25 tablet, Refills 0, Tot. Refills 0, Acute, as needed for constipation, 03/03/21 10:23:00 EDT, 02/18/21 10:23:00 EDT, Route to Pharmacy Electronically, [facility]/pharmacy #[id number] Tablet, Partial fill upon patient r... Start Date: 02/18/21 Stop Date: 03/03/21 Status: Ordered SloFe 50mg SloFe 50mg, Refills [...] Paraplegia(Confirmed) Active Bladder spasm(Confirmed) Active Spasticity(Confirmed) Active Results Radiology Reports * Exam Date Time Procedure Performing Provider Status 02/16/21 4:09 PM C-Arm < 1 Hour Ricco Bravo; Auth (Anisa ified) Notes: (C-Arm < 1 Hour) Reason For Exam: glycerol rhizotomy RESULT: C-Arm < 1 Hour C-Arm < 1 Hour INDICATION: Reason: glycerol rhizotomy; Special Instructions: TT 15 min, FT 27.5 sec COMPARISONS: None TECHNIQUE: Fluoroscopy support was provided. There was no radiologist in attendance. Fluoroscopy time: 27.5 seconds Technologist time: 15 minutes FINDINGS: Fluoroscopy support was provided. There was no radiologist in attendance. IMPRESSION: See above. WSN: [id number] Ordering Physician: Teresa Alonzo Dictated By: Beny Stiles MD Dictated Date/Time: 02/17/21 7:59 am Reviewed By: Beny Stiles MD Signed By: Beny Stiles MD Signed Date/Time: 02/17/21 7:59 am Transcribed By: SONIA Transcribed Date/Time: 02/16/21 8:21 pm * Exam Date Time Procedure Performing Provider Status 02/15/21 8:57 PM Chest Portable Sunny Bravo (Anisa ified) Notes: (Chest Portable) Reason For Exam: Preop RESULT: Chest Portable Chest Portable Hx of Present Illness: Facial pain; Reason: Preop; Clinical Question(s): Preop COMPARISON: None. FINDINGS: LINES AND TUBES: None. LUNGS AND PLEURA: Clear lungs. Normal pulmonary vascularity. No pleural effusion. No pneumothorax. HEART, MEDIASTINUM AND CARLOS: Heart is normal in size. Mild aortic tortuosity. Normal upper mediastinal and hilar contour. BONES AND SOFT TISSUES: No acute abnormality. Moderate left glenohumeral joint spurring. IMPRESSION: No acute abnormality. WSN: [id number] Ordering Physician: Reinaldo Craven Dictated By: Kirby White MD Dictated Date/Time: 02/15/21 9:01 pm Reviewed By: Kirby White MD Signed By: Kirby White MD Signed Date/Time: 02/15/21 9:01 pm Transcribed By: SONIA Transcribed Date/Time: 02/15/21 9:00 pm Vital Signs Most recent to oldest [Reference Range]: 1 2 3 Oxygen Saturation [94-100 %] 93 % *L* (02/18/21 6:08 AM) 91 % *L* (02/17/21 8:50 PM) 93 % *L* (02/17/21 3:25 PM) Pulse Rate [55-90 bpm] 73 bpm (02/18/21 6:08 AM) 86 bpm (02/17/21 8:50 PM) 87 bpm (02/17/21 3:25 PM) Blood Pressure [90-138/55-84 mm Hg] 146/87mm Hg *H* (02/18/21 8:45 AM) 142/69mm Hg *H* (02/18/21 6:08 AM) 122/67mm Hg (02/17/21 8:50 PM) Respiratory Rate [16-30 br/min] 16 br/min (02/18/21 9:45 AM) 16 br/min (02/18/21 8:46 AM) 16 br/min (02/18/21 8:45 AM) Temperature [96.8-100.4 DegF] 98.2 DegF (02/18/21 6:08 AM) 98.0 DegF (02/17/21 8:50 PM) 99.1 DegF (02/17/21 3:25 PM) Liters per Minute 2 L/min (02/16/21 4:45 PM) 4 L/min (02/16/21 4:15 PM) Mode of Delivery (Oxygen) Room air (02/18/21 6:08 AM) Room air (02/17/21 8:50 PM) Room air (02/17/21 3:25 PM) Blood pressure sites Arm, right (02/18/21 6:08 AM) Arm, right (02/17/21 8:50 PM) Arm, left (02/17/21 3:25 PM) Temperature Route Oral (02/18/21 6:08 AM) Oral (02/17/21 8:50 PM) Oral (02/17/21 3:25 PM) Social History Social History Type Response Smoking Status Never smoker entered on: 11/15/14 Sex
--- OUTSIDE RECORDS SUMMARY | 2024-03-17 13:27 | XMS_ITS | Continuity of Care Document ---
Author Organization [facility] Address [address] [place] [address]- Care Team Providers Care Director Veterinary Name Role Phone Juan Manuel LIM, Kristen Acosta Primary Care Physic juan alberto Encounter [facility] Date(s): 03/26/23 - 04/25/23 [facility] [address] [place] [address]- Allergies, Adverse Reactions, Alerts Substance Reaction Severity Status morphine hives, SOB Active penicillins hive Active Wellbutrin rash Active Reglan Active cannabis (Schedule I substance) itching/vomiting Active Other Environmental Allergy mercury-fillings Active contrast media (iodine-based) itching throughout body Active Immunizations Given and Recorded Vaccine Date Status Refusal Reason pneumococcal 20-valent conjugate vaccine 05/30/22 Recorded [id number] 12y+ bivalent booster vax 05/12/22 Recorded influenza [...] vaccine, inactivated 04/26/09 Arnoldo rded SARS-CoV-2 mRNA ([id number]-hhvb-qofax) vax 03/10/22 Recorded SARS-CoV-2 mRNA ([id number]-clqq-yuxae) vax 10/04/21 Recorded SARS-CoV-2 (COVID-19) mRNA BNT-162b2 [...] 1 Refills, Maintenance, 12/11/22 17:34:00 EDT, Tablet, [facility]/pharmacy #[id number], Partial fill upon patient request if the prescription is for a schedule II opioid drug., 155, cm, 10/10/22 13:40:00 E... Start Date: 12/11/22 Status: Ordered baclofen 20 mg oral tablet 20 mg, 1, tablet, By Mouth, 3 times a day, # 270 tablet, Refills 2, Tot. Refills 2, Maintenance, 12/09/22 12:44:00 EDT, Route to Pharmacy Electronically, [facility], Partial fill upon patient request if the prescription is for a... Start Date: 12/09/22 Stop Date: 09/05/23 Status: Ordered bifidobacterium-lactobacillus oral tablet 2 tablet, By Mouth, 2 times a day, [facility] Brand please ([facility]), # 360 tablet, 3 Refills, Maintenance, 08/11/21 17:02:00 EST, Tablet, [facility]/pharmacy #[id number], Partial fill upon patient request if the prescription is for a schedule II opioid drug., 2... Start Date: 08/11/21 Stop Date: 08/06/22 Status: Ordered calcium carbonate 600 mg oral tablet 1 tablet = 600 mg, By Mouth, 2 times a day, # 180 tablet, 2 Refills, Maintenance, 01/06/23 14:02:00EDT, Tablet, [facility]/pharmacy #[id number], Partial fill upon patient request if the prescription is for a schedule II opioid drug., 155, cm, 02/23/22 8:04:00 EDT... Start Date: 01/06/23 Stop Date: 10/03/23 Status: Ordered Centrum Silver Ultra Women's oral tablet 1 tablet, By Mouth, Daily, 0 Refills, Maintenance, 07/09/18 8:43:55 EST Start Date: 07/09/18 Status: Ordered [facility] SENIOR PROBIOTIC CAPSULE TAKE 2 CAPSULES BY MOUTH TWICE A DAY Start Date: 11/01/21 Status: Ordered [facility] Senior Probiotic Capsule [facility] Senior Probiotic Capsule, See Instructions, # [...] 450 mL, 5 Refills, 03/02/22 8:08:00 EDT, [facility]/pharmacy #[id number], 155, cm, 02/23/22 8:04:00 EDT, [...] Refills, Soft Stop, 03/27/23 18:43:00 EDT, Tablet, [facility]/pharmacy #[id number], Partial fill upon patient request if the prescription is for a schedule II opioid... Start Date: 03/27/23 Status: Ordered fluconazole 150 mg oral tablet 1 tablet = 150 mg, By Mouth, Every week, # 4 tablet, 1 Refills, Soft Stop, 05/26/22 8:59:00 EDT, Tablet, [facility]/pharmacy #[id number], Partial fill upon patient request [...] 01/17/23 19:36:00 EDT, Route to Pharmacy Electronically, [facility], 155, cm, 10/10/22 13:40:00 EST, Height, 93.4,kg, 11/01/21 16:52:00 EDT, Dry Weight Start Date: 01/17/23 Status: Ordered gabapentin 300 mg oral capsule 300 mg, 1, capsule, By Mouth, 3 times a day, # 270 capsule, Refills 2, Tot. Refills 2, Maintenance,02/15/23 7:44:00 EDT, Route to Pharmacy Electronically, [facility], Partial fill upon patient request if the prescription is for... Start Date: 02/15/23 Stop Date: 11/12/23 Status: Ordered Juzo Compression Hose Juzo Compression Hose, See Instructions, # 2 each, Refills 2, Tot. Refills 2, Maintenance, Juzo Compression Hose 2 pairs ofizq-pzj-jadg Soft Knee FF Petite 20-30 mmHg Silicone, Black Stock Code [id number] I I I Part #[id number] Size I I I SKU... Start Date: 03/12/23 Status: Ordered levothyroxine 0.088 mg oral tablet 1 tablet = 88 mcg, By Mouth, Daily, # 90 tablet, 3 Refills, Maintenance, 03/15/23 17:17:00 EDT, Tablet, [facility], Partial fill upon patient request if the prescription is fora schedule II opioid drug., 155, cm, 03/15/23 17:11... Start Date: 03/15/23 Status: Ordered lisinopril 5 mg oral tablet 1, tablet, By Mouth, Daily, # 90 tablet, Refills 3, Tot. Refills 3, Maintenance, 03/15/23 17:16:00 EDT, Route to Pharmacy Electronically, [facility], 155, cm, 03/15/23 17:11:00EDT, Height, 93.4, kg, 11/01/21 16:52:00 EDT, Dry W... Start Date: 03/15/23 Status: Ordered Mapap 500 mg oral capsule See Instructions, TAKE 2 CAPSULES BY MOUTH 4 TIMES A DAY NEEDED FOR PAIN, # 480 capsule, 0 Refills, Maintenance, 03/12/23 9:16:00 EDT, [facility]/pharmacy #[id number], 155, cm, 10/10/22 13:40:00 EST, Height, 93.4, kg, 11/01/21 16:52:00 EDT, Dry Weight Start Date: 03/12/23 Status: Ordered Power [place] Lift with [place] split-leg sling Power [place] Lift with [place] split-leg sling, See Instructions, # 1 each, [...] 5 Refills, Maintenance, 12/11/22 17:34:00 EDT, Tablet, [facility]/pharmacy #[id number], Partial fill upon patient request [...] Team Personnel Name: Juliann Rich RN Position: [facility] RN Member Role: Primary Care Nurse Name: Elsa Allen NP Position: Reference Physician Member Role: Primary Care Nurse Address: Address: [address] [place] [address] [address] [place] [address]- Name: Emma Mendoza RN Position: [facility] AMB Nurse Member Role: Primary Care Nurse Name: Juan Manuel LIM, Kristen Acosta Position: [facility] Physician - Primary Care Member Role: PCP Address: Address: [address] [place] [address]- Name: Komal Goodrich Position: [facility] Outreach Member Role: Lifetime Consulting Physician Name: Godfrey Cano Position: [facility] RN Member Role: Primary Care Nurse Name: Anette Miranda RN Position: [facility] Onco RN Member Role: Primary Care Nurse Care Team Related Persons Name: ALANA, DIOMEDES Address: home [address] [place] [address] Name: MOO HOWELL Address: home [address] [place] [address] Name: MARLON GENTILE
--- OUTSIDE RECORDS SUMMARY | 2024-03-17 13:27 | XMS_ITS | Continuity of Care Document ---
Author Organization [facility] Address [address] [place] [address]- Care Team Providers Care Regional Project Manager Name Role Phone Juan Manuel LIM, Kristen Acosta Primary Care Physic juan alberto [place] [facility] 05/08[place]23 - 06/07/23 [facility] [address] [place] [address]- Allergies, Adverse Reactions, Alerts Substance Reaction Severity Status morphine hives, SOB Active penicillins hive Active Wellbutrin rash Active Reglan Active cannabis (Schedule I substance) itching/vomiting Active Other Environmental Allergy mercury-fillings Active contrast media (iodine-based) itching throughout body Active Immunizations Given and Recorded Vaccine Date Status Refusal Reason pneumococcal 20-valent conjugate vaccine 05/30/22 Recorded [id number] 12y+ bivalent booster vax 05/12/22 Recorded influenza [...] vaccine, inactivated 04/26/09 Arnoldo rded SARS-CoV-2 mRNA (hpdaiyr-ljlu-ymjhk) vax 03/10/22 Recorded SARS-CoV-2 mRNA (ikleqic-ehlq-gpetl) vax 10/04/21 Recorded SARS-CoV-2 (COVID-19) mRNA BNT-162b2 [...] 1 Refills, Maintenance, 12/11/22 17:34:00 EDT, Tablet, [facility]/pharmacy #[id number], Partial fill upon patient request if the prescription is for a schedule II opioid drug., 155, cm, 10/10/22 13:40:00 E... Start Date: 12/11/22 Status: Ordered baclofen 20 mg oral tablet 20 mg, 1, tablet, By Mouth, 3 times a day, # 270 tablet, Refills 2, Tot. Refills 2, Maintenance, 12/09/22 12:44:00 EDT, Route to Pharmacy Electronically, [facility], Partial fill upon patient request if the prescription is for a... Start Date: 12/09/22 Stop Date: 09/05/23 Status: Ordered bifidobacterium-lactobacillus oral tablet 2 tablet, By Mouth, 2 times a day, [facility] Brand please ([facility]), # 360 tablet, 3 Refills, Maintenance, 08/11/21 17:02:00 EST, Tablet, [facility]/pharmacy #[id number], Partial fill upon patient request if the prescription is for a schedule II opioid drug., 2... Start Date: 08/11/21 Stop Date: 08/06/22 Status: Ordered calcium carbonate 600 mg oral tablet 1 tablet = 600 mg, By Mouth, 2 times a day, # 180 tablet, 2 Refills, Maintenance, 01/06/23 14:02:00EDT, Tablet, [facility]/pharmacy #[id number], Partial fill upon patient request if the prescription is for a schedule II opioid drug., 155, cm, 02/23/22 8:04:00 EDT... Start Date: 01/06/23 Stop Date: 10/03/23 Status: Ordered Centrum Silver Ultra Women's oral tablet 1 tablet, By Mouth, Daily, 0 Refills, Maintenance, 07/09/18 8:43:55 EST Start Date: 07/09/18 Status: Ordered [facility] SENIOR PROBIOTIC CAPSULE TAKE 2 CAPSULES BY MOUTH TWICE A DAY Start Date: 11/01/21 Status: Ordered [facility] Senior Probiotic Capsule [facility] Senior Probiotic Capsule, See Instructions, # 180 [...] 5 Refills, 03/02/22 8:08:00 EDT, [facility]/pharmacy #[id number], 155, cm, 02/23/22 8:04:00 EDT, Height, [...] Refills, Soft Stop, 03/27/23 18:43:00 EDT, Tablet, [facility]/pharmacy #[id number], Partial fill upon patient request if the prescription is for a schedule II opioid... Start Date: 03/27/23 Status: Ordered fluconazole 150 mg oral tablet 1 tablet = 150 mg, By Mouth, Every week, # 4 tablet, 1 Refills, Soft Stop, 05/26/22 8:59:00 EDT, Tablet, [facility]/pharmacy #[id number], Partial fill upon patient request if [...] 7:44:00 EDT, Route to Pharmacy Electronically, [facility], Partial fill upon patient request if the prescription is for... Start Date: 02/15/23 Stop Date: 11/12/23 Status: Ordered Juzo Compression Hose Juzo Compression Hose, See Instructions, # 2 each, Refills 2, Tot. Refills 2, Maintenance, Juzo Compression Hose 2 pairs yspda-bap-sfys Soft Knee FF Petite 20-30 mmHg Silicone, Black Stock Code [id number] I I I Part #[id number] Size I I I SKU... Start Date: 03/12/23 Status: Ordered levothyroxine 0.088 mg oral tablet 1 tablet = 88 mcg, By Mouth, Daily, # 90 tablet, 3 Refills, Maintenance, 03/15/23 17:17:00 EDT, Tablet, [facility], Partial fill upon patient request if the prescription is fora schedule II opioid drug., 155, cm, 03/15/23 17:11... Start Date: 03/15/23 Status: Ordered lisinopril 5 mg oral tablet 1, tablet, By Mouth, Daily, # 90 tablet, Refills 3, Tot. Refills 3, Maintenance, 03/15/23 17:16:00 EDT, Route to Pharmacy Electronically, [facility], 155, cm, 03/15/23 17:11:00EDT, Height, 93.4, kg, 11/01/21 16:52:00 EDT, Dry W... Start Date: 03/15/23 Status: Ordered Mapap 500 mg oral capsule See Instructions, TAKE 2 CAPSULES BY MOUTH 4 TIMES A DAY NEEDED FOR PAIN, # 480 capsule, 0 Refills, Maintenance, 03/12/23 9:16:00 EDT, [facility]/pharmacy #[id number], 155, cm, 10/10/22 13:40:00 EST, Height, 93.4, kg, 11/01/21 16:52:00 EDT, Dry Weight Start Date: 03/12/23 Status: Ordered Power [place] Lift with [place] split-leg sling Power [place] Lift with [place] split-leg sling, See Instructions, # 1 each, [...] 5 Refills, Maintenance, 12/11/22 17:34:00 EDT, Tablet, [facility]/pharmacy #[id number], Partial fill upon patient request if [...] Team Personnel Name: Juliann Rich RN Position: [facility] RN Member Role: Primary Care Nurse Name: Elsa Allen NP Position: Reference Physician Member Role: Primary Care Nurse Address: Address: [address] [place] [address] [address] [place] [address]- Name: Emma Mendoza RN Position: [facility] AMB Nurse Member Role: Primary Care Nurse Name: Juan Manuel LIM, Kristen Acosta Position: [facility] Physician - Primary Care Member Role: PCP Address: Address: [address] [place] [address]- Name: Komal Goodrich Position: [facility] Outreach Member Role: Lifetime Consulting Physician Name: Godfrey Cano Position: [facility] RN Member Role: Primary Care Nurse Name: Anette Miranda RN Position: [facility] Onco RN Member Role: Primary Care Nurse Care Team Related Persons Name: DIOMEDES WARNER Address: [address] [place] [address] Name: MOO HOWELL Address: [address] [place] [address] Name: MARLON GENTILE
--- OUTSIDE RECORDS SUMMARY | 2024-03-17 13:27 | XMS_ITS | Continuity of Care Document ---
Author Organization [facility] Address [address] [place] [address]- Care Team Providers Care Radiology Therapist Name Role Phone Juan Manuel LIM, Kristen Acosta Primary Care Physic juan alberto Encounter [facility] Date(s): 04/12/23 - 05/12/23 [facility] [address] [place] [address]- Allergies, Adverse Reactions, Alerts Substance Reaction Severity Status morphine hives, SOB Active Wellbutrin rash Active Other Environmental Allergy mercury-fillings Active contrast media (iodine-based) itching throughout body Active penicillins hive Active Reglan Active cannabis (Schedule I substance) itching/vomiting Active Immunizations Given and Recorded Vaccine Date Status Refusal Reason pneumococcal 20-valent conjugate vaccine 05/30/22 Recorded [id number] 12y+ bivalent booster vax 05/12/22 Recorded influenza [...] vaccine, inactivated 04/26/09 Arnoldo rded SARS-CoV-2 mRNA ([id number]) vax 03/10/22 Recorded SARS-CoV-2 mRNA ([id number]-onzs-[id number]) vax 10/04/21 Recorded SARS-CoV-2 (COVID-19) mRNA BNT-162b2 [...] 1 Refills, Maintenance, 12/11/22 17:34:00 EDT, Tablet, [facility]/pharmacy #[id number], Partial fill upon patient request if the prescription is for a schedule II opioid drug., 155, cm, 10/10/22 13:40:00 E... Start Date: 12/11/22 Status: Ordered baclofen 20 mg oral tablet 20 mg, 1, tablet, By Mouth, 3 times a day, # 270 tablet, Refills 2, Tot. Refills 2, Maintenance, 12/09/22 12:44:00 EDT, Route to Pharmacy Electronically, [facility], Partial fill upon patient request if the prescription is for a... Start Date: 12/09/22 Stop Date: 09/05/23 Status: Ordered bifidobacterium-lactobacillus oral tablet 2 tablet, By Mouth, 2 times a day, [facility] Brand please (Senior Wellness), # 360 tablet, 3 Refills, Maintenance, 08/11/21 17:02:00 EST, Tablet, [facility]/pharmacy #[id number], Partial fill upon patient request if the prescription is for a schedule II opioid drug., 2... Start Date: 08/11/21 Stop Date: 08/06/22 Status: Ordered calcium carbonate 600 mg oral tablet 1 tablet = 600 mg, By Mouth, 2 times a day, # 180 tablet, 2 Refills, Maintenance, 01/06/23 14:02:00EDT, Tablet, [facility]/pharmacy #[id number], Partial fill upon patient request if the prescription is for a schedule II opioid drug., 155, cm, 02/23/22 8:04:00 EDT... Start Date: 01/06/23 Stop Date: 10/03/23 Status: Ordered Centrum Silver Ultra Women's oral tablet 1 tablet, By Mouth, Daily, 0 Refills, Maintenance, 07/09/18 8:43:55 EST Start Date: 07/09/18 Status: Ordered [facility] SENIOR PROBIOTIC CAPSULE TAKE 2 CAPSULES BY MOUTH TWICE A DAY Start Date: 11/01/21 Status: Ordered [facility] Senior Probiotic Capsule [facility] Senior Probiotic Capsule, See Instructions, # [...] 5 Refills, 03/02/22 8:08:00 EDT, [facility]/pharmacy #[id number], 155, cm, 02/23/22 8:04:00 EDT, [...] Refills, Soft Stop, 03/27/23 18:43:00 EDT, Tablet, [facility]/pharmacy #[id number], Partial fill upon patient request if the prescription is for a schedule II opioid... Start Date: 03/27/23 Status: Ordered fluconazole 150 mg oral tablet 1 tablet = 150 mg, By Mouth, Every week, # 4 tablet, 1 Refills, Soft Stop, 05/26/22 8:59:00 EDT, Tablet, [facility]/pharmacy #[id number], Partial fill upon patient request [...] Maintenance,02/15/23 7:44:00 EDT, Route to Pharmacy Electronically, [facility], Partial fill upon patient request if the prescription is for... Start Date: 02/15/23 Stop Date: 11/12/23 Status: Ordered Juzo Compression Hose Juzo Compression Hose, See Instructions, # 2 each, Refills 2, Tot. Refills 2, Maintenance, Juzo Compression Hose 2 pairs [id number] Soft Knee FF Petite 20-30 mmHg Silicone, Black Stock Code [id number] I I I Part #[id number] Size I I I SKU... Start Date: 03/12/23 Status: Ordered levothyroxine 0.088 mg oral tablet 1 tablet = 88 mcg, By Mouth, Daily, # 90 tablet, 3 Refills, Maintenance, 03/15/23 17:17:00 EDT, Tablet, [facility], Partial fill upon patient request if the prescription is fora schedule II opioid drug., 155, cm, 03/15/23 17:11... Start Date: 03/15/23 Status: Ordered lisinopril 5 mg oral tablet 1, tablet, By Mouth, Daily, # 90 tablet, Refills 3, Tot. Refills 3, Maintenance, 03/15/23 17:16:00 EDT, Route to Pharmacy Electronically, [facility], 155, cm, 03/15/23 17:11:00EDT, Height, 93.4, kg, 11/01/21 16:52:00 EDT, Dry W... Start Date: 03/15/23 Status: Ordered Mapap 500 mg oral capsule See Instructions, TAKE 2 CAPSULES BY MOUTH 4 TIMES A DAY NEEDED FOR PAIN, # 480 capsule, 0 Refills, Maintenance, 03/12/23 9:16:00 EDT, [facility]/pharmacy #[id number], 155, cm, 10/10/22 13:40:00 EST, Height, 93.4, kg, 11/01/21 16:52:00 EDT, Dry Weight Start Date: 03/12/23 Status: Ordered Power [place] Lift with [place] split-leg sling Power [place] Lift with [place] split-leg sling, See Instructions, # 1 each, [...] 5 Refills, Maintenance, 12/11/22 17:34:00 EDT, Tablet, [facility]/pharmacy #[id number], Partial fill upon patient request [...] Team Personnel Name: Juliann Rich RN Position: [facility] RN Member Role: Primary Care Nurse Name: Elsa Allen NP Position: Reference Physician Member Role: Primary Care Nurse Address: Address: [address] [place] [address] [address] [place] [address]- Name: Emma Mendoza RN Position: [facility] AMB Nurse Member Role: Primary Care Nurse Name: Juan Manuel LIM, Kristen Acosta Position: [facility] Physician - Primary Care Member Role: PCP Address: Address: [address] [place] [id number]- Name: Komal Goodrich Position: [facility] Outreach Member Role: Lifetime Consulting Physician Name: Godfrey Cano Position: [facility] RN Member Role: Primary Care Nurse Name: Anette Miranda RN Position: [facility] Onco RN Member Role: Primary Care Nurse Care Team Related Persons Name: DIOMEDES WARNER Address: home [address] [place] [address] Name: MOO HOWELL Address: home [address] [place] [address] Name: MARLON GENTILE
--- OUTSIDE RECORDS SUMMARY | 2024-03-17 13:27 | XMS_ITS | Continuity of Care Document ---
Author Organization [facility] Address [address] [place] [address], [address] [place] [address]- Care Team Providers Care Air Conditioning Equipment Mechanic Name Role Phone Rey CENTENO, Javy Lerma Primary Care Physician [phone] Encounter [facility] Date(s): 03/01/21 - 03/08/21 [facility] [address] [place] [address] Drive, [address] [place] [address]- Attending Physician: Teresa Alonzo MD Allergies, Adverse Reactions, Alerts Substance Reaction [...] Acute 03/18/21 10:20:00 EDT,02/18/21 10:20:00 EDT, Liquid, [facility]/pharmacy #[id number], Partial fill upon patient request if the [...] 02/18/21 10:23:00 EDT, Route to Pharmacy Electronically, [facility]/pharmacy #[id number], Partial fill upon patient request [...] mL, 0 Refills, Maintenance, 02/18/21 10:22:00 EDT,Liquid, [facility]/pharmacy #[id number], Partial fill upon patient request [...]
--- OUTSIDE RECORDS SUMMARY | 2024-03-17 13:27 | XMS_ITS | Continuity of Care Document ---
Author Organization [facility] Address [address] [place] [address]- Care Team Providers Care Teacher Aide Name Role Phone Juan Manuel LIM, Kristen Acosta Primary Care Physic juan alberto [place] [facility] [place] 02/14/22 - 03/16/22 [facility] [address] [place] [address]- Allergies, Adverse Reactions, Alerts Substance Reaction Severity Status morphine hives, SOB Active penicillins hive Active Wellbutrin rash Active Reglan Active cannabis (Schedule I substance) itching/vomiting Active Other Environmental Allergy mercury-fillings Active contrast media (iodine-based) itching throughout body Active Immunizations Given and Recorded Vaccine Date Status Refusal Reason SARS-CoV-2 mRNA (xfebzab-bsnz-[id number]) vax 10/04/21 Recorded influenza virus vaccine, inactivated [...] 04/19/22 17:46:00 EDT, 08/22/21 17:46:00 EST, Capsule, [facility]/pharmacy #[id number], Partial fill upon patient request if the prescription is for a schedul... Start Date: 08/22/21 Stop Date: 04/19/22 Status: Ordered ascorbic acid 1000 mg oral tablet 1 tablet = 1,000 mg, By Mouth, 2 times a day, # 90 tablet, 2 Refills, Maintenance, 02/28/22 8:12:00EDT, Tablet, [facility]/pharmacy #[id number], Partial fill upon patient request if the prescription is for a schedule II opioid drug., 155, cm, 02/23/22 8:04:00 EDT... Start Date: 02/28/22 Status: Ordered baclofen 20 mg oral tablet 20 mg, 1, tablet, By Mouth, 3 times a day, # 270 tablet, Refills 2, Tot. Refills 2, Maintenance, 03/14/22 12:44:00 EDT, Route to Pharmacy Electronically, [facility]/pharmacy #[id number], Partial fill upon patientrequest if the prescription is for a schedule II op... Start Date: 03/14/22 Stop Date: 12/09/22 Status: Ordered bifidobacterium-lactobacillus oral tablet 2 tablet, By Mouth, 2 times a day, [facility] Brand please (Senior Wellness), # 360 tablet, 3 Refills, Maintenance, 08/11/21 17:02:00 EST, Tablet[id number] Partial fill upon patient request if the prescription is for a schedule II opioid drug., 2... Start Date: 08/11/21 Stop Date: 08/06/22 Status: Ordered calcium carbonate 600 mg oral tablet 1 tablet = 600 mg, By Mouth, 2 times a day, # 180 tablet, 2 Refills, Maintenance, 01/06/23 14:02:00EDT, Tablet, [facility]/pharmacy #[id number], Partial fill upon patient [...] 01/06/23 14:02:00 EDT, 01/11/22 14:02:00 EDT, Tablet, [facility], Partial fill upon patient request if the prescription is for a schedul... Start Date: 01/11/22 Stop Date: 01/06/23 Status: Ordered Centrum Silver Ultra Women's oral tablet 1 tablet, By Mouth, Daily, 0 Refills, Maintenance, 07/09/18 8:43:55 EST Start Date: 07/09/18 Status: Ordered [facility] SENIOR PROBIOTIC CAPSULE TAKE 2 CAPSULES BY MOUTH TWICE A DAY Start Date: 11/01/21 Status: Ordered diclofenac 1% topical gel 1 application, Topically, 4 times a day, # 100 Gm, 3 Refills, Maintenance, 01/11/22 14:07:00 EDT, Gel, [facility], Partial fill upon patient request [...] 450 mL, 5 Refills, 03/02/22 8:08:00 EDT, [facility]/pharmacy #[id number], 155, cm, 02/23/22 8:04:00 [...] 01/02/22 9:03:00 EDT, Route to Pharmacy Electronically, [facility], Partial fill upon patient request [...] 01/11/22 13:45:00 EDT, Route to Pharmacy Electronically, [facility]... Start Date: 01/11/22 Status: Ordered gabapentin 300 mg oral capsule 300 mg, 1, capsule, By Mouth, 3 times a day, # 90 capsule, Refills 2, Tot. Refills 2, Maintenance, 02/20/22 7:44:00 EDT, Route to Pharmacy Electronically, [facility]/pharmacy #[id number], Partial fill upon patient request if the prescription is for a schedule II o... Start Date: 02/20/22 Stop Date: 05/21/22 Status: Ordered Juzo Compression Hose Juzo Compression Hose, See Instructions, # 2 each, Refills 2, Tot. Refills 2, Maintenance, 20-30mmghg FF Petite (short),Gkqpx-uiq-rimv, soft knee, black silicone Stock code [id number] Part #[id number], Size III. [facility] [id number], 12/07/21 11:32:00 EDT,... Start Date: 12/07/21 Status: Ordered levothyroxine 0.088 mg oral tablet 1 tablet = 88 mcg, By Mouth, Daily, # 90 tablet, 1 Refills, Maintenance, 07/13/21 14:09:00 EST, Tablet, [facility], Partial fill upon patient request if the prescription is fora schedule II opioid drug., 153, cm, 06/27/21 7:47:... Start Date: 07/13/21 Status: Ordered lisinopril 5 mg oral tablet 5 mg, 1, tablet, By Mouth, Daily, # 90 tablet, Refills 3, Tot. Refills 3, Maintenance, 02/24/22 15:53:00 EDT, Route to Pharmacy Electronically, [facility]/pharmacy #[id number], Partial fill upon patient request if the prescription is for a schedule II opioid drug.... Start Date: 02/24/22 Status: Ordered Potassium Chloride (Eqv-K-Tab) 20 mEq oral tablet, extended release 1 tablet = 20 mEq, By Mouth, Daily, for low potassium, # 10 tablet, 0 Refills, Maintenance, 03/02/22 19:14:00 EDT, [facility]/pharmacy #[id number], Partial fill upon patient request if the prescription is for a schedule II opioid drug., 155, cm, 02/23/22 8:04:00 E... Start Date: 03/02/22 Stop Date: 03/12/22 Status: Ordered Power [place] Lift with [place] split-leg sling Power [place] Lift with [place] split-leg sling, See Instructions, # 1 each, [...] 3 Refills, Maintenance, 02/28/22 8:12:00 EDT, Tablet, [facility]/pharmacy #[id number], Partial fill upon patient [...] 90 capsule, 2 Refills, 02/28/22 8:13:00 EDT, [facility]/pharmacy #[id number], 155,cm, 02/23/22 8:04:00 EDT, Height, 93.4, kg, 11/01/21 16:52:00 EDT, Dry Weight Start Date: 02/28/22 Status: Ordered Xarelto 20 mg oral tablet 1 tablet = 20 mg, By Mouth, Daily at supper, # 90 tablet, 3 Refills, Maintenance, 02/01/22 12:42:00EDT, Tablet, [facility], Partial fill upon [...]
--- OUTSIDE RECORDS SUMMARY | 2024-03-17 13:27 | XMS_ITS | Continuity of Care Document ---
Author Organization [facility] Address [address] [place] [address]- Care Team Providers Care Surgical Coordinator Name Role Phone Juan Manuel LIM, Kristen Acosta Primary Care Physic juan alberto Encounter [facility] Date(s): 08/03/21 - 09/02/21 [facility] [address] [place] [address]- Allergies, Adverse Reactions, Alerts Substance Reaction Severity [...] 04/19/22 17:46:00 EDT, 08/22/21 17:46:00 EST, Capsule, [facility]/pharmacy #[id number], Partial fill upon patient request if the prescription is for a schedul... Start Date: 08/22/21 Stop Date: 04/19/22 Status: Ordered ascorbic acid 1000 mg oral tablet 1 tablet = 1,000 mg, By Mouth, 2 times a day, # 90 tablet, 1 Refills, Maintenance, 08/11/21 17:03:00 EST, Tablet, [facility]/pharmacy #[id number], Partial fill upon patient request if the prescription is for a schedule II opioid drug., 153, cm, 06/27/21 7:47:00 ES... Start Date: 08/11/21 Status: Ordered baclofen 20 mg oral tablet 20 mg, 1, tablet, By Mouth, 4 times a day, # 360 tablet, Refills 1, Tot. Refills 1, Maintenance, 08/02/21 14:09:00 EST, Route to Pharmacy Electronically, [facility], Partial fill upon patient request if the prescription is for a... Start Date: 08/02/21 Status: Ordered bifidobacterium-lactobacillus oral tablet 2 tablet, By Mouth, 2 times a day, [facility] Brand please ([facility] Wellness), # 360 tablet, 3 Refills, Maintenance, 08/11/21 17:02:00 EST, Tablet, [facility]/pharmacy #[id number], Partial fill upon [...] 01/09/22 14:17:00 EDT, 07/13/21 14:17:00 EST, Tablet, [facility], Partial fill upon patient request if the prescription is for a schedul... Start Date: 07/13/21 Stop Date: 01/09/22 Status: Ordered calcium carbonate 600 mg oral tablet 1 tablet = 600 mg, By Mouth, 2 times a day, # 180 tablet, 1 Refills, Maintenance, 01/09/22 14:17:00EDT, Tablet, [facility]/pharmacy #[id number], Partial fill upon [...] Refills, SoftStop, 09/01/21 9:49:00 EST, REC Powder, [facility]/pharmacy #[id number], Partial fill upon patient request if the prescription is for a schedule II opioid drug., 15... Start Date: 09/01/21 Status: Ordered Fully powered [place] lift with [...] 04/05/21 13:39:00 EDT, Route to Pharmacy Electronically, [facility], Partial fill upon patient request if the prescription is for a schedule... Start Date: 04/05/21 Stop Date: 05/05/21 Status: Ordered gabapentin 300 mg oral capsule 300 mg, 1, capsule, By Mouth, Daily at bedtime, # 90 capsule, Refills 2, Tot. Refills 2, Maintenance, 08/02/21 14:08:00 EST, Route to Pharmacy Electronically, [facility], Partial fill upon patient request if the prescription is... Start Date: 08/02/21 Status: Ordered levothyroxine 0.088 mg oral tablet 1 tablet = 88 mcg, By Mouth, Daily, # 90 tablet, 1 Refills, Maintenance, 07/13/21 14:09:00 EST, Tablet, [facility], Partial fill upon patient request if the prescription is fora schedule II opioid drug., 153, cm, 06/27/21 7:47:... Start Date: 07/13/21 Status: Ordered lisinopril 5 mg oral tablet 5 mg, 1, tablet, By Mouth, Daily, # 90 tablet, Refills 1, Tot. Refills 1, Maintenance, 07/13/21 14:08:00 EST, Route to Pharmacy Electronically, [facility], Partial fill upon patient request if the prescription is for a schedule... Start Date: 07/13/21 Status: Ordered Power [place] Lift with [place] split-leg sling Power [place] Lift with [place] split-leg sling, See Instructions, # 1 each, [...] 1 Refills, Maintenance, 07/14/21 17:19:00 EST, Tablet, [facility], Partial fill upon patient request if t... Start Date: 07/14/21 Stop Date: 09/08/21 Status: Ordered Turmeric = 750 mg, By Mouth, 2 times a day, 0 Refills, Maintenance, 07/09/18 8:47:35 EST Start Date: 07/09/18 Status: Ordered Vitamin D3 2000 intl units oral capsule 1 capsule, By Mouth, Daily, # 90 capsule, 1 Refills, 08/11/21 17:04:00 EST, [facility]/pharmacy #[id number], 153, cm, 06/27/21 7:47:00 EST, [...]
--- OUTSIDE RECORDS SUMMARY | 2024-03-17 13:27 | XMS_ITS | Continuity of Care Document ---
Author Organization [facility] Address [address] [place] [address]- Care Team Providers Care Sales Expert Name Role Phone Juan Manuel LIM, Kristen Acosta Primary Care Physic juan alberto Encounter [facility] Date(s): 01/23/22 - 04/14/22 [facility] [address] [place] [address]- Attending Physician: Win Holden MD Allergies, Adverse Reactions, Alerts Substance Reaction [...] vaccine, inactivated 04/26/09 Arnoldo rded SARS-CoV-2 mRNA (uarzajw-keic-tzhkr) vax 03/10/22 Recorded SARS-CoV-2 mRNA (ialilsf-itjb-amkcc) vax 10/04/21 Recorded SARS-CoV-2 (COVID-19) mRNA BNT-162b2 [...] 04/19/22 17:46:00 EDT, 08/22/21 17:46:00 EST, Capsule, [facility]/pharmacy #[id number], Partial fill upon patient request if the prescription is for a schedul... Start Date: 08/22/21 Stop Date: 04/19/22 Status: Ordered ascorbic acid 1000 mg oral tablet 1 tablet = 1,000 mg, By Mouth, 2 times a day, # 90 tablet, 2 Refills, Maintenance, 02/28/22 8:12:00EDT, Tablet, [facility]/pharmacy #[id number], Partial fill upon patient request if the prescription is for a schedule II opioid drug., 155, cm, 02/23/22 8:04:00 EDT... Start Date: 02/28/22 Status: Ordered baclofen 20 mg oral tablet 20 mg, 1, tablet, By Mouth, 3 times a day, # 270 tablet, Refills 2, Tot. Refills 2, Maintenance, 12/09/22 12:44:00 EDT, Route to Pharmacy Electronically, [facility], Partial fill upon patient request if the prescription is for a... Start Date: 12/09/22 Stop Date: 09/05/23 Status: Ordered baclofen 20 mg oral tablet 20 mg, 1, tablet, By Mouth, 3 times a day, for 90 days, # 270 tablet, Refills 2, Tot. Refills 2, Hard Stop 12/09/22 12:44:00 EDT, 03/14/22 12:44:00 EDT, [id number] Partial fill upon patient request if the pre... Start Date: 03/14/22 Stop Date: 12/09/22 Status: Ordered bifidobacterium-lactobacillus oral tablet 2 tablet, By Mouth, 2 times a day, [facility] Brand please ([facility]), # 360 tablet, 3 Refills, Maintenance, 08/11/21 17:02:00 EST, Tablet, [id number], Partial fill upon patient request if the prescription is for a schedule II opioid drug., 2... Start Date: 08/11/21 Stop Date: 08/06/22 Status: Ordered calcium carbonate 600 mg oral tablet 1 tablet = 600 mg, By Mouth, 2 times a day, # 180 tablet, 2 Refills, Maintenance, 01/06/23 14:02:00EDT, Tablet, [id number], Partial fill upon patient request if the prescription is for a schedule II opioid drug., 155, cm, 02/23/22 8:04:00 EDT... Start Date: 01/06/23 Stop Date: 10/03/23 Status: Ordered calcium carbonate 600 mg oral tablet 1 tablet = 600 mg, By Mouth, 2 times a day, for 90 days, # 180 tablet, 3 Refills, Hard Stop 01/06/23 14:02:00 EDT, 01/11/22 14:02:00 EDT, Tablet, [facility], Partial fill upon patient request if the prescription is for a schedul... Start Date: 01/11/22 Stop Date: 01/06/23 Status: Ordered Centrum Silver Ultra Women's oral tablet 1 tablet, By Mouth, Daily, 0 Refills, Maintenance, 07/09/18 8:43:55 EST Start Date: 07/09/18 Status: Ordered [facility] SENIOR PROBIOTIC CAPSULE TAKE 2 CAPSULES BY MOUTH TWICE A DAY Start Date: 11/01/21 Status: Ordered diclofenac 1% topical gel 1 application, Topically, 4 times a day, Apply 4 gram QID prn to affected pain to dropped foot - not to exceed 16 grams/day/single joint of lower extremities, # 100 Gm, 3 Refills, Maintenance, 04/02/22 21:13:00 EDT, Gel, [facility] Start Date: 04/02/22 Status: Ordered [...] mL, 5 Refills, 03/02/22 8:08:00 EDT, [facility]/pharmacy #[id number], 155, cm, 02/23/22 8:04:00 EDT, [...] 9:03:00 EDT, Route to Pharmacy Electronically, [facility], Partial fill upon patient [...] 13:45:00 EDT, Route to Pharmacy Electronically, [facility]... Start Date: 01/11/22 Status: Ordered gabapentin 300 mg oral capsule 300 mg, 1, capsule, By Mouth, 3 times a day, # 270 capsule, Refills 2, Tot. Refills 2, Maintenance,05/21/22 7:44:00 EDT, Route to Pharmacy Electronically, [facility], Partial fill upon patient request if the prescription is for... Start Date: 05/21/22 Stop Date: 02/15/23 Status: Ordered gabapentin 300 mg oral capsule 300 mg, 1, capsule, By Mouth, 3 times a day, for 30 days, # 90 capsule, Refills 2, Tot. Refills 2, Hard Stop 05/21/22 7:44:00 EDT, 02/20/22 7:44:00 EDT, Route to Pharmacy Electronically, [facility]/pharmacy#[id number], Partial fill upon patient request if the pre... Start Date: 02/20/22 Stop Date: 05/21/22 Status: Ordered Juzo Compression Hose Juzo Compression Hose, See Instructions, # 2 each, Refills 2, Tot. Refills 2, Maintenance, 20-30mmghg FF Petite (short),Nbznn-ack-mney, soft knee, black silicone Stock code [id number] Part #[id number], Size III. [facility] [id number], 12/07/21 11:32:00 EDT,... Start Date: 12/07/21 Status: Ordered levothyroxine 0.088 mg oral tablet 1 tablet = 88 mcg, By Mouth, Daily, # 90 tablet, 3 Refills, Maintenance, 03/31/22 13:45:00 EDT, Tablet, [facility], Partial fill upon patient request if the prescription is fora schedule II opioid drug., 155, cm, 03/14/22 11:11... Start Date: 03/31/22 Status: Ordered lisinopril 5 mg oral tablet 5 mg, 1, tablet, By Mouth, Daily, # 90 tablet, Refills 3, Tot. Refills 3, Maintenance, 02/24/22 15:53:00 EDT, Route to Pharmacy Electronically, [facility]/pharmacy #[id number], Partial fill upon patient request if the prescription is for a schedule II opioid drug.... Start Date: 02/24/22 Status: Ordered Potassium Chloride (Eqv-K-Tab) 20 mEq oral tablet, extended release 1 tablet = 20 mEq, By Mouth, Daily, for low potassium, # 10 tablet, 0 Refills, Maintenance, 03/02/22 19:14:00 EDT, [facility]/pharmacy #[id number], Partial fill upon patient request if the prescription is for a schedule II opioid drug., 155, cm, 02/23/22 8:04:00 E... Start Date: 03/02/22 Stop Date: 03/12/22 Status: Ordered Power Virginia Lift with Baudette split-leg sling Power Virginia Lift with Baudette split-leg sling, See Instructions, # 1 each, [...] 3 Refills, Maintenance, 02/28/22 8:12:00 EDT, Tablet, [facility]/pharmacy #[id number], Partial fill upon patient request [...] capsule, 2 Refills, 02/28/22 8:13:00 EDT, [facility]/pharmacy #[id number], 155,cm, 02/23/22 8:04:00 EDT, Height, 93.4, kg, 11/01/21 16:52:00 EDT, Dry Weight Start Date: 02/28/22 Status: Ordered Xarelto 20 mg oral tablet 1 tablet = 20 mg, By Mouth, Daily at supper, # 90 tablet, 3 Refills, Maintenance, 02/01/22 12:42:00EDT, Tablet, [facility], Partial fill upon patient request [...] Name: Juan Manuel LIM, Kristen Acosta Address: [address] [place] [address]
--- OUTSIDE RECORDS SUMMARY | 2024-03-17 13:27 | XMS_ITS | Continuity of Care Document ---
Author Organization [facility] Address [address] [place] [address]- Care Team Providers Care Meat Pumper Name Role Phone Juan Manuel LIM, Kristen Acosta Primary Care Physic juan alberto Encounter [facility] Date(s): 02/06/22 - 03/08/22 [facility] [address] [place] [address]- Allergies, Adverse Reactions, Alerts Substance Reaction Severity Status morphine hives, SOB Active Wellbutrin rash Active Reglan Active contrast media (iodine-based) itching throughout body Active penicillins hive Active cannabis (Schedule I substance) itching/vomiting Active Other Environmental Allergy mercury-fillings Active Immunizations Given and Recorded Vaccine Date Status Refusal Reason SARS-CoV-2 mRNA (koiiuus-mjwq-zfxix) vax 10/04/21 Recorded influenza virus vaccine, inactivated [...] 04/19/22 17:46:00 EDT, 08/22/21 17:46:00 EST, Capsule, [facility]/pharmacy #[id number], Partial fill upon patient request if the prescription is for a schedul... Start Date: 08/22/21 Stop Date: 04/19/22 Status: Ordered ascorbic acid 1000 mg oral tablet 1 tablet = 1,000 mg, By Mouth, 2 times a day, # 90 tablet, 2 Refills, Maintenance, 02/28/22 8:12:00EDT, Tablet, [facility]/pharmacy #[id number], Partial fill upon patient request if the prescription is for a schedule II opioid drug., 155, cm, 02/23/22 8:04:00 EDT... Start Date: 02/28/22 Status: Ordered baclofen 20 mg oral tablet 20 mg, 1, tablet, By Mouth, 3 times a day, # 360 tablet, Refills 1, Tot. Refills 1, Maintenance, 08/02/21 14:09:00 EST, Route to Pharmacy Electronically, [facility], Partial fill upon patient request if the prescription is for a... Start Date: 08/02/21 Status: Ordered bifidobacterium-lactobacillus oral tablet 2 tablet, By Mouth, 2 times a day, [facility] Brand please ([facility]), # 360 tablet, 3 Refills, Maintenance, 08/11/21 17:02:00 EST, Tablet, [facility]/pharmacy #[id number], Partial fill upon patient request if the prescription is for a schedule II opioid drug., 2... Start Date: 08/11/21 Stop Date: 08/06/22 Status: Ordered calcium carbonate 600 mg oral tablet 1 tablet = 600 mg, By Mouth, 2 times a day, # 180 tablet, 2 Refills, Maintenance, 01/06/23 14:02:00EDT, Tablet, [facility]/pharmacy #[id number], Partial fill upon patient request [...] 14:02:00 EDT, Tablet, [facility], Partial fill upon patient request if the prescription is for a schedul... Start Date: 01/11/22 Stop Date: 01/06/23 Status: Ordered Centrum Silver Ultra Women's oral tablet 1 tablet, By Mouth, Daily, 0 Refills, Maintenance, 07/09/18 8:43:55 EST Start Date: 07/09/18 Status: Ordered [facility] SENIOR PROBIOTIC CAPSULE TAKE 2 CAPSULES BY MOUTH TWICE A DAY Start Date: 11/01/21 Status: Ordered diclofenac 1% topical gel 1 application, Topically, 4 times a day, # 100 Gm, 3 Refills, Maintenance, 01/11/22 14:07:00 EDT, Gel, [facility], Partial fill upon patient request [...] 450 mL, 5 Refills, 03/02/22 8:08:00 EDT, [facility]/pharmacy #[id number], 155, cm, 02/23/22 8:04:00 EDT, [...] 01/11/22 13:45:00 EDT, Route to Pharmacy Electronically, [facility]... Start Date: 01/11/22 Status: Ordered gabapentin 300 mg oral capsule 300 mg, 1, capsule, By Mouth, 3 times a day, # 90 capsule, Refills 2, Tot. Refills 2, Maintenance, 02/20/22 7:44:00 EDT, Route to Pharmacy Electronically, [facility]/pharmacy #[id number], Partial fill upon patient request if the prescription is for a schedule II o... Start Date: 02/20/22 Stop Date: 05/21/22 Status: Ordered Juzo Compression Hose Juzo Compression Hose, See Instructions, # 2 each, Refills 2, Tot. Refills 2, Maintenance, 20-30mmghg FF Petite (short),Potip-mqn-mydc, soft knee, black silicone Stock code [id number] Part #[id number], Size III. [facility] [id number], 12/07/21 11:32:00 EDT,... Start Date: 12/07/21 Status: Ordered levothyroxine 0.088 mg oral tablet 1 tablet = 88 mcg, By Mouth, Daily, # 90 tablet, 1 Refills, Maintenance, 07/13/21 14:09:00 EST, Tablet, [facility], Partial fill upon patient request if the prescription is fora schedule II opioid drug., 153, cm, 06/27/21 7:47:... Start Date: 07/13/21 Status: Ordered lisinopril 5 mg oral tablet 5 mg, 1, tablet, By Mouth, Daily, # 90 tablet, Refills 3, Tot. Refills 3, Maintenance, 02/24/22 15:53:00 EDT, Route to Pharmacy Electronically, [facility]/pharmacy #[id number], Partial fill upon patient request if the prescription is for a schedule II opioid drug.... Start Date: 02/24/22 Status: Ordered Potassium Chloride (Eqv-K-Tab) 20 mEq oral tablet, extended release 1 tablet = 20 mEq, By Mouth, Daily, for low potassium, # 10 tablet, 0 Refills, Maintenance, 03/02/22 19:14:00 EDT, [facility]/pharmacy #[id number], Partial fill upon patient request if the prescription is for a schedule II opioid drug., 155, cm, 02/23/22 8:04:00 E... Start Date: 03/02/22 Stop Date: 03/12/22 Status: Ordered Power Virginia Lift with [place]wood split-leg sling Power Virginia Lift with [place]wood split-leg sling, See Instructions, # 1 each, [...] 3 Refills, Maintenance, 02/28/22 8:12:00 EDT, Tablet, [facility]/pharmacy #[id number], Partial fill upon patient request [...] 90 capsule, 2 Refills, 02/28/22 8:13:00 EDT, [facility]/pharmacy #[id number], 155,cm, 02/23/22 8:04:00 EDT, Height, 93.4, kg, 11/01/21 16:52:00 EDT, Dry Weight Start Date: 02/28/22 Status: Ordered Xarelto 20 mg oral tablet 1 tablet = 20 mg, By Mouth, Daily at supper, # 90 tablet, 3 Refills, Maintenance, 02/01/22 12:42:00EDT, Tablet, [facility], Partial fill upon patient [...]
--- OUTSIDE RECORDS SUMMARY | 2024-03-17 13:27 | XMS_ITS | Continuity of Care Document ---
Author Organization [facility] Address [address] [place] [address]- Care Team Providers Care Tooth Cutter Contact Wheel Name Role Phone Juan Manuel LIM, Kristen Acosta Primary Care Physic juan alberto Encounter [facility] Date(s): 02/01/22 - 03/03/22 [facility] [address] [place] [address]- Allergies, Adverse Reactions, Alerts Substance Reaction Severity Status morphine hives, SOB Active penicillins hive Active Wellbutrin rash Active Reglan Active cannabis (Schedule I substance) itching/vomiting Active Other Environmental Allergy mercury-fillings Active contrast media (iodine-based) itching throughout body Active Immunizations Given and Recorded Vaccine Date Status Refusal Reason SARS-CoV-2 mRNA (hgfrjpf-eaty-csnow) vax 10/04/21 Recorded influenza virus vaccine, inactivated [...] 17:46:00 EDT, 08/22/21 17:46:00 EST, Capsule, [facility]/pharmacy #[id number], Partial fill upon patient request if the prescription is for a schedul... Start Date: 08/22/21 Stop Date: 04/19/22 Status: Ordered ascorbic acid 1000 mg oral tablet 1 tablet = 1,000 mg, By Mouth, 2 times a day, # 90 tablet, 2 Refills, Maintenance, 02/28/22 8:12:00EDT, Tablet, [facility]/pharmacy #[id number], Partial fill upon patient request if the prescription is for a schedule II opioid drug., 155, cm, 02/23/22 8:04:00 EDT... Start Date: 02/28/22 Status: Ordered baclofen 20 mg oral tablet 20 mg, 1, tablet, By Mouth, 3 times a day, # 360 tablet, Refills 1, Tot. Refills 1, Maintenance, 08/02/21 14:09:00 EST, Route to Pharmacy Electronically, [facility], Partial fill upon patient request if the prescription is for a... Start Date: 08/02/21 Status: Ordered bifidobacterium-lactobacillus oral tablet 2 tablet, By Mouth, 2 times a day, [facility] Brand please ([facility]), # 360 tablet, 3 Refills, Maintenance, 08/11/21 17:02:00 EST, Tablet, [facility]/pharmacy #[id number], Partial fill upon patient request if the prescription is for a schedule II opioid drug., 2... Start Date: 08/11/21 Stop Date: 08/06/22 Status: Ordered calcium carbonate 600 mg oral tablet 1 tablet = 600 mg, By Mouth, 2 times a day, # 180 tablet, 2 Refills, Maintenance, 01/06/23 14:02:00EDT, Tablet, [facility]/pharmacy #[id number], Partial fill upon patient [...] 14:02:00 EDT, 01/11/22 14:02:00 EDT, Tablet, [facility], Partial fill upon patient request if the prescription is for a schedul... Start Date: 01/11/22 Stop Date: 01/06/23 Status: Ordered Centrum Silver Ultra Women's oral tablet 1 tablet, By Mouth, Daily, 0 Refills, Maintenance, 07/09/18 8:43:55 EST Start Date: 07/09/18 Status: Ordered [facility] SENIOR PROBIOTIC CAPSULE TAKE 2 CAPSULES BY MOUTH TWICE A DAY Start Date: 11/01/21 Status: Ordered diclofenac 1% topical gel 1 application, Topically, 4 times a day, # 100 Gm, 3 Refills, Maintenance, 01/11/22 14:07:00 EDT, Gel, [facility], Partial fill upon patient request [...] 5 Refills, 03/02/22 8:08:00 EDT, [facility]/pharmacy #[id number], 155, cm, 02/23/22 8:04:00 EDT, Height, [...] 01/11/22 13:45:00 EDT, Route to Pharmacy Electronically, [facility] AD[facility]... Start Date: 01/11/22 Status: Ordered gabapentin 300 mg oral capsule 300 mg, 1, capsule, By Mouth, 3 times a day, # 90 capsule, Refills 2, Tot. Refills 2, Maintenance, 02/20/22 7:44:00 EDT, Route to Pharmacy Electronically, [facility]/pharmacy #[id number], Partial fill upon patient request if the prescription is for a schedule II o... Start Date: 02/20/22 Stop Date: 05/21/22 Status: Ordered Juzo Compression Hose Juzo Compression Hose, See Instructions, # 2 each, Refills 2, Tot. Refills 2, Maintenance, 20-30mmghg FF Petite (short),Koijw-qyb-hsaf, soft knee, black silicone Stock code [id number] Part #[id number], Size III. [facility] [id number], 12/07/21 11:32:00 EDT,... Start Date: 12/07/21 Status: Ordered levothyroxine 0.088 mg oral tablet 1 tablet = 88 mcg, By Mouth, Daily, # 90 tablet, 1 Refills, Maintenance, 07/13/21 14:09:00 EST, Tablet, [facility], Partial fill upon patient request if the prescription is fora schedule II opioid drug., 153, cm, 06/27/21 7:47:... Start Date: 07/13/21 Status: Ordered lisinopril 5 mg oral tablet 5 mg, 1, tablet, By Mouth, Daily, # 90 tablet, Refills 3, Tot. Refills 3, Maintenance, 02/24/22 15:53:00 EDT, Route to Pharmacy Electronically, [facility]/pharmacy #[id number], Partial fill upon patient request if the prescription is for a schedule II opioid drug.... Start Date: 02/24/22 Status: Ordered Potassium Chloride (Eqv-K-Tab) 20 mEq oral tablet, extended release 1 tablet = 20 mEq, By Mouth, Daily, for low potassium, # 10 tablet, 0 Refills, Maintenance, 03/02/22 19:14:00 EDT, [facility]/pharmacy #[id number], Partial fill upon patient request if the prescription is for a schedule II opioid drug., 155, cm, 02/23/22 8:04:00 E... Start Date: 03/02/22 Stop Date: 03/12/22 Status: Ordered Power Virginia Lift with Ivor split-leg sling Power Virginia Lift with Ivor split-leg sling, See Instructions, # 1 each, [...] Refills, Maintenance, 02/28/22 8:12:00 EDT, Tablet, [facility]/pharmacy #[id number], Partial fill upon patient [...] 2 Refills, 02/28/22 8:13:00 EDT, [facility]/pharmacy #[id number], 155,cm, 02/23/22 8:04:00 EDT, Height, 93.4, kg, 11/01/21 16:52:00 EDT, Dry Weight Start Date: 02/28/22 Status: Ordered Xarelto 20 mg oral tablet 1 tablet = 20 mg, By Mouth, Daily at supper, # 90 tablet, 3 Refills, Maintenance, 02/01/22 12:42:00EDT, Tablet, [facility], Partial fill upon patient request [...]
--- OUTSIDE RECORDS SUMMARY | 2024-03-17 13:27 | XMS_ITS | Continuity of Care Document ---
Author Organization [facility] ter Address [address] [place] [address]- Care Team Providers Care Zoo Keeper Name Role Phone Maria Del Carmen Rosas MD Primary Care Physician [phone] Encounter [facility] Date(s): 08/21/19 - 08/28/[address] [address]- [facility] Attending Physician: Not on Staff, Attending MD Allergies, Adverse Reactions, Alerts Substance Reaction [...] Active Hypothyroidism(Confirmed) Active MS (multiple sclerosis)(Confirmed) Active Paraplegia(Confirmed) Active Spasticity(Confirmed) Active Social History Social History Type Response Smoking Status Never smoker entered on: 11/15/14 Sex
--- OUTSIDE RECORDS SUMMARY | 2024-03-17 13:27 | XMS_ITS | Continuity of Care Document ---
Author Organization [facility] Address [address] [place] [address]- Care Team Providers Care Drill Press Set Up Operator Radial Name Role Phone Rey CENTENO, Javy Lerma Primary Care Physician Encounter [facility] Date(s): 01/13/21 - 04/28/21 [facility] [address] [place], [place] [address] Attending Physician: Omayra Hewitt MD Referring Physician: Javy Le NP Allergies, Adverse Reactions, Alerts Substance Reaction Severity Status morphine hives, SOB Active penicillins hive Active Wellbutrin rash Active Reglan Active Other Environmental Allergy mercury-fillings Active contrast [...] 0 Refills, Maintenance, 04/25/21 14:08:00 EDT, Tablet, [facility]/pharmacy #[id number], Partial fill upon [...] 02/18/21 10:23:00 EDT, Route to Pharmacy Electronically, [id number], Partial fill upon patient request [...] 04/05/21 13:39:00 EDT, Route to Pharmacy Electronically, [facility], Partial fill upon patient request if the prescription is for a schedule... Start Date: 04/05/21 Stop Date: 05/05/21 Status: Ordered gabapentin 250 mg/5 mL oral solution 12 mL = 600 mg, By Mouth, 4 times a day, # 1,440 mL, 0 Refills, Maintenance, 02/18/21 10:22:00 EDT,Liquid, [facility]/pharmacy #[id number], Partial fill upon patient request if the prescription is for a scheduleII opioid drug. Ok to dispense similar quantity if... Start Date: 02/18/21 Stop Date: 03/20/21 Status: Ordered levothyroxine 0.088 mg oral tablet 1 tablet = 88 mcg, By Mouth, Daily, # 90 tablet, 1 Refills, Maintenance, 04/05/21 13:40:00 EDT, Tablet, [facility], Partial fill upon patient request if the prescription is fora schedule II opioid drug., 153, cm, 04/04/21 9:04:... Start Date: 04/05/21 Status: Ordered lisinopril 5 mg oral tablet 5 mg, 1, tablet, By Mouth, Daily, # 90 tablet, Refills 1, Tot. Refills 1, Maintenance, 04/05/21 13:40:00 EDT, [facility] tablet, 1 Refills, Maintenance, 04/05/21 13:35:00 EDT, [facility]/pharmacy #[id number], Partial fill upon [...] 0 Refills, Maintenance, 04/05/21 13:30:00 EDT, Tablet, [facility]/pharmacy #[id number], Partial fill upon [...] Refills, Maintenance, 04/07/20 13:38:00 EDT Start Date: 8/26/20 Status: Ordered Problem List Condition Effective Dates Status Health Status Inform ant Chronic saddle pulmonary embolism(Confirmed) Active H/O: stroke(Confirmed) Active H/O osteopenia(Confirmed) Active Hypertension(Confirmed) Active Hypothyroidism(Confirmed) Active MS (multiple sclerosis)(Confirmed) Active Muscle weakness(Confirmed) Active Paraplegia(Confirmed) Active Bladder spasm(Confirmed) Active Spasticity(Confirmed) Active Social History Social History Type Response Smoking Status Never smoker entered on: 11/15/14 Sex
--- OUTSIDE RECORDS SUMMARY | 2024-03-17 13:27 | XMS_ITS | Continuity of Care Document ---
Author Organization [facility] Address Unknown Care Team Providers Care Adjuster Electrical Contacts Name Role Phone Juan Manuel LIM, Kristen December Karla Primary Care Physic juan alberto Encounter [facility] Date(s): 12/21/21 - 01/20/22 [facility] Allergies, Adverse Reactions, Alerts Substance Reaction Severity Status morphine hives, SOB Active penicillins hive Active Wellbutrin rash Active Reglan Active cannabis (Schedule I substance) itching/vomiting Active Other Environmental Allergy mercury-fillings Active contrast media (iodine-based) itching throughout body Active Immunizations Given and Recorded Vaccine Date Status Refusal Reason SARS-CoV-2 mRNA ([id number]-ychf-htxfz) vax 10/04/21 Recorded influenza virus vaccine, inactivated [...] 04/19/22 17:46:00 EDT, 08/22/21 17:46:00 EST, Capsule, [facility]/pharmacy #[id number], Partial fill upon patient request if the prescription is for a schedul... Start Date: 08/22/21 Stop Date: 04/19/22 Status: Ordered ascorbic acid 1000 mg oral tablet 1 tablet = 1,000 mg, By Mouth, 2 times a day, # 90 tablet, 1 Refills, Maintenance, 08/11/21 17:03:00 EST, Tablet, [facility]/pharmacy #[id number], Partial fill upon patient request if the prescription is for a schedule II opioid drug., 153, cm, 06/27/21 7:47:00 ES... Start Date: 08/11/21 Status: Ordered baclofen 20 mg oral tablet 20 mg, 1, tablet, By Mouth, 3 times a day, # 360 tablet, Refills 1, Tot. Refills 1, Maintenance, 08/02/21 14:09:00 EST, Route to Pharmacy Electronically, [facility], Partial fill upon patient request if the prescription is for a... Start Date: 08/02/21 Status: Ordered bifidobacterium-lactobacillus oral tablet 2 tablet, By Mouth, 2 times a day, [facility] Brand please ([facility]), # 360 tablet, 3 Refills, Maintenance, 08/11/21 17:02:00 EST, Tablet, [facility]/pharmacy #[id number], Partial fill upon patient request if the prescription is for a schedule II opioid drug., 2... Start Date: 08/11/21 Stop Date: 08/06/22 Status: Ordered calcium carbonate 600 mg oral tablet 1 tablet = 600 mg, By Mouth, 2 times a day, # 180 tablet, 3 Refills, Maintenance, 01/11/22 14:02:00EDT, Tablet, [facility], Partial fill upon patient request if the prescription is for a schedule II opioid drug., 155, cm, 01/02... Start Date: 01/11/22 Stop Date: 01/06/23 Status: Ordered Centrum Silver Ultra Women's oral tablet 1 tablet, By Mouth, Daily, 0 Refills, Maintenance, 07/09/18 8:43:55 EST Start Date: 07/09/18 Status: Ordered [facility] SENIOR PROBIOTIC CAPSULE TAKE 2 CAPSULES BY MOUTH TWICE A DAY Start Date: 11/01/21 Status: Ordered diclofenac 1% topical gel 1 application, Topically, 4 times a day, # 100 Gm, 3 Refills, Maintenance, 01/11/22 14:07:00 EDT, Gel, [facility], Partial fill upon patient request if [...] STILL NEEDED, # 450 mL, 0 Refills, [id number], 153, cm, 08/30/21 16:43:00 EST, Height Start [...] 01/02/22 9:03:00 EDT, Route to Pharmacy Electronically, [facility], Partial fill upon patient request [...] 01/11/22 13:45:00 EDT, Route to Pharmacy Electronically, [facility] ADIS... Start Date: 01/11/22 Status: Ordered gabapentin 300 mg oral capsule See Instructions, One capsule By Mouth twice a day. If symptoms continue, may increase dose after 2weeks, to one capsule by mouth three times per day, # 90 capsule, Refills 2, Tot. Refills 2, Maintenance, 12/21/21 10:56:00 EDT, Instructions Replace R... Start Date: 12/21/21 Status: Ordered Juzo Compression Hose Juzo Compression Hose, See Instructions, # 2 each, Refills 2, Tot. Refills 2, Maintenance, 20-30mmghg FF Petite (short),[id number]-rvsb, soft knee, black silicone Stock code [id number] Part #[id number], Size III. SK [id number], 12/07/21 11:32:00 EDT,... Start Date: 12/07/21 Status: Ordered levothyroxine 0.088 mg oral tablet 1 tablet = 88 mcg, By Mouth, Daily, # 90 tablet, 1 Refills, Maintenance, 07/13/21 14:09:00 EST, Tablet, [facility], Partial fill upon patient request if the prescription is fora schedule II opioid drug., 153, cm, 06/27/21 7:47:... Start Date: 07/13/21 Status: Ordered lisinopril 5 mg oral tablet 5 mg, 1, tablet, By Mouth, Daily, # 90 tablet, Refills 3, Tot. Refills 3, Maintenance, 01/11/22 13:42:00 EDT, Route to Pharmacy Electronically, [facility], Partial fill upon patient request if the prescription is for a schedule... Start Date: 01/11/22 Status: Ordered Power Virginia Lift with Timpson split-leg sling Power Virginia Lift with Timpson split-leg sling, See Instructions, # 1 each, [...] aswritten, # 56 tablet, 1 Refills, Maintenance, 12/09/21 1:28:00 EDT, [id number] fill upon patient request if the prescription... Start Date: 12/09/21 Stop Date: 02/03/22 Status: Ordered Turmeric = 750 mg, By Mouth, 2 times a day, 0 Refills, Maintenance, 07/09/18 8:47:35 EST Start Date: 07/09/18 Status: Ordered Vitamin D3 2000 intl units oral capsule 1 capsule, By Mouth, Daily, # 90 capsule, 1 Refills, 08/11/21 17:04:00 EST, [facility]/pharmacy #[id number], 153, cm, 06/27/21 7:47:00 EST, Height Start Date: 08/11/21 Status: Ordered Xarelto 20 mg oral tablet 1 tablet = 20 mg, By Mouth, Daily at supper, # 30 tablet, 0 Refills, Maintenance, 01/16/22 13:27:00EDT, Tablet, [facility], Partial fill upon patient request if the prescription is for a schedule II opioid drug., 155, cm, 01/02... Start Date: 01/16/22 Status: Ordered Xarelto 20 mg oral tablet 1 tablet = 20 mg, By Mouth, Daily before dinner, 0 Refills, Maintenance, 04/07/20 13:38:00 EDT Start Date: 04/07/20 Status: Ordered Problem List Condition Effective Dates Status Health Status Inform ant Idiopathic intracranial hypertension(Confirmed) Active Bilateral leg edema(Confirmed) Active Chronic saddle pulmonary embolism(Confirmed) Active Excessive [...]
--- OUTSIDE RECORDS SUMMARY | 2024-03-17 13:28 | XMS_ITS | Continuity of Care Document ---
Author Organization [facility] Address [address], [address] [place] [address]- Care Team Providers Care Bomb Technician Name Role Phone Juan Manuel LIM, Kristen Acosta Primary Care Physic juan alberto [place] [facility] [place]): 12/04/22 - 02/02/23 [facility] [facility] [address] [place] [address]- Attending Physician: Rosita Hernandez MD Referring Physician: Gill Coleman DO Allergies, Adverse Reactions, Alerts Substance Reaction Severity Status morphine hives, SOB Active penicillins hive Active Wellbutrin rash Active Reglan Active cannabis (Schedule I substance) itching/vomiting Active Other Environmental Allergy mercury-fillings Active contrast media (iodine-based) itching throughout body Active Immunizations Given and Recorded Vaccine Date Status Refusal Reason pneumococcal 20-valent conjugate vaccine 05/30/22 Recorded [id number] 12y+ bivalent booster vax 05/12/22 Recorded influenza [...] vaccine, inactivated 04/26/09 Arnoldo rded SARS-CoV-2 mRNA (nypizsv-[id number]-[id number]) vax 03/10/22 Recorded SARS-CoV-2 mRNA (pjhcobb-[id number]-wpkey) vax 10/04/21 Recorded SARS-CoV-2 (COVID-19) mRNA BNT-162b2 [...] 1 Refills, Maintenance, 12/11/22 17:34:00 EDT, Tablet, [facility]/pharmacy #[id number], Partial fill upon patient request if the prescription is for a schedule II opioid drug., 155, cm, 10/10/22 13:40:00 E... Start Date: 12/11/22 Status: Ordered baclofen 20 mg oral tablet 20 mg, 1, tablet, By Mouth, 3 times a day, # 270 tablet, Refills 2, Tot. Refills 2, Maintenance, 12/09/22 12:44:00 EDT, Route to Pharmacy Electronically, [facility], Partial fill upon patient request if the prescription is for a... Start Date: 12/09/22 Stop Date: 09/05/23 Status: Ordered bifidobacterium-lactobacillus oral tablet 2 tablet, By Mouth, 2 times a day, [facility] Brand please ([facility]), [...] tablet, 2 Refills, Maintenance, 01/06/23 14:02:00EDT, Tablet, [facility]/pharmacy #[id number], Partial [...] A DAY Start Date: 11/01/21 Status: Ordered [facility] Senior Probiotic Capsule [facility] Senior Probiotic Capsule, See [...] 450 mL, 5 Refills, 03/02/22 8:08:00 EDT, [facility]/pharmacy #[id number], 155, cm, 02/23/22 [...] Refills, Soft Stop, 05/26/22 8:59:00 EDT, Tablet, [facility]/pharmacy #[id number], Partial [...] 01/17/23 19:36:00 EDT, Route to Pharmacy Electronically, [facility], 155, cm, 10/10/22 13:40:00 EST, Height, 93.4,kg, 11/01/21 16:52:00 EDT, Dry Weight Start Date: 01/17/23 Status: Ordered gabapentin 300 mg oral capsule 300 mg, 1, capsule, By Mouth, 3 times a day, for 90 days, # 270 capsule, Refills 2, Tot. Refills 2,Hard Stop 02/15/23 7:44:00 EDT, 05/21/22 7:44:00 EDT, Route to Pharmacy Electronically, [facility], Partial fill upon patient re... Start Date: 05/21/22 Stop Date: 02/15/23 Status: Ordered gabapentin 300 mg oral capsule 300 mg, 1, capsule, By Mouth, 3 times a day, # 270 capsule, Refills 2, Tot. Refills 2, Maintenance,02/15/23 7:44:00 EDT, Route to Pharmacy Electronically, [facility], Partial fill upon patient request if the prescription is for... Start Date: 02/15/23 Stop Date: 11/12/23 Status: Ordered Juzo Compression Hose Juzo Compression Hose, See Instructions, # 2 each, Refills 2, Tot. Refills 2, Maintenance, 20-30mmghg FF Petite (short),Jgzby-mgc-lsdt, soft knee, black silicone Stock code [id number] Part #[id number], Size III. [facility] [id number], 12/07/21 11:32:00 EDT,... Start Date: 12/07/21 Status: Ordered levothyroxine 0.088 mg oral tablet 1 tablet = 88 mcg, By Mouth, Daily, # 90 tablet, 1 Refills, Maintenance, 09/08/22 14:26:00 EST, Tablet, [facility], Partial fill upon patient request if the prescription is fora schedule II opioid drug., 155, cm, 07/12/22 14:10... Start Date: 09/08/22 Status: Ordered lisinopril 5 mg oral tablet 1, tablet, By Mouth, Daily, # 90 tablet, Refills 1, Maintenance, 01/22/23 21:39:00 EDT, Route to Pharmacy Electronically, [facility], 155, cm, 10/10/22 13:40:00 EST, Height, 93.4,kg, 11/01/21 16:52:00 EDT, Dry Weight Start Date: 01/22/23 Status: Ordered Mapap 500 mg oral capsule See Instructions, TAKE 2 CAPSULES BY MOUTH 4 TIMES A DAY NEEDED FOR PAIN, # 480 capsule, 3 Refills, Maintenance, 06/04/22 16:03:00 EDT, [id number], 155, cm, 05/25/22 13:44:00 EDT, Height, 93.4, kg, 11/01/21 16:52:00 EDT, Dry Weight Start Date: 06/04/22 Status: Ordered Power Virginia Lift with Gill split-leg sling Power Virginia Lift with Gill split-leg sling, See Instructions, # 1 each, [...] - dispense as written, # 56 tablet, 5 Refills, Hard Stop 03/22/23 17:39:00 EDT, 10/05/22 17:39:00 EST, Tablet, [facility]/pharmacy #[id number], Partial fill upon pa... Start Date: 10/05/22 Stop Date: 03/22/23 Status: Ordered Provigil 200 mg oral tablet 1 tablet = 200 mg, By Mouth, 2 times a day, takes in am and lunchtime brand name only - dispense aswritten, # 56 tablet, 5 Refills, Maintenance, 12/11/22 17:34:00 EDT, Tablet, [facility]/pharmacy #[id number], Partial [...] Team Personnel Name: Juliann Rich RN Position: [facility] RN Member Role: Primary Care Nurse Name: Alejandro CENTENO, Elsa Peterson Position: Reference Physician Member Role: Primary Care Nurse Address: Address: [address] [place] [address] [address] [facility] [place] [address]- [place] Name: Emma Mendoza RN Position: [facility] AMB Nurse Member Role: Primary Care Nurse Name: Juan Manuel LIM, Kristen Acosta Position: [facility] Physician - Primary Care Member Role: PCP Address: Address: [address] [place] [id number]- Name: Komal Goodrich Position: [facility] Outreach Member Role: Lifetime Consulting Physician Name: Godfrey Cano Position: [facility] RN Member Role: Primary Care Nurse Name: Anette Miranda RN Position: [facility] Onco RN Member Role: Primary Care Nurse Care Team Related Persons Name: DIOMEDES WARNER Address: home [address] [place] [address] Name: MOO HOWELL Address: [address] [place] [address] Name: MARLON GENTILE
--- OUTSIDE RECORDS SUMMARY | 2024-03-17 13:28 | XMS_ITS | Continuity of Care Document ---
Author Organization [facility] Address [address] [place] [address]- Care Team Providers Care Technical Healthcare Consultant Name Role Phone Rey CENTENO, Javy Lerma Primary Care Physician Encounter [facility] Date(s): 03/31/21 - 04/30/21 [facility] [address] [place] [address]- Allergies, Adverse Reactions, Alerts Substance Reaction Severity [...] 0 Refills, Maintenance, 04/25/21 14:08:00 EDT, Tablet, [facility]/pharmacy #[id number], Partial fill upon patient request [...] 02/18/21 10:23:00 EDT, Route to Pharmacy Electronically, [facility]/pharmacy #[id number], Partial fill upon patient request [...] 04/05/21 13:39:00 EDT, Route to Pharmacy Electronically, [facility], Partial fill upon patient request if the prescription is for a schedule... Start Date: 04/05/21 Stop Date: 05/05/21 Status: Ordered gabapentin 250 mg/5 mL oral solution 12 mL = 600 mg, By Mouth, 4 times a day, # 1,440 mL, 0 Refills, Maintenance, 02/18/21 10:22:00 EDT,Liquid, [id number] fill upon patient request if the prescription is for a scheduleII opioid drug. Ok to dispense similar quantity if... Start Date: 02/18/21 Stop Date: 03/20/21 Status: Ordered levothyroxine 0.088 mg oral tablet 1 tablet = 88 mcg, By Mouth, Daily, # 90 tablet, 1 Refills, Maintenance, 04/05/21 13:40:00 EDT, Tablet, [facility], Partial fill upon patient request if the prescription is fora schedule II opioid drug., 153, cm, 04/04/21 9:04:... Start Date: 04/05/21 Status: Ordered lisinopril 5 mg oral tablet 5 mg, 1, tablet, By Mouth, Daily, # 90 tablet, Refills 1, Tot. Refills 1, Maintenance, 04/05/21 13:40:00 EDT, Route to Pharmacy Electronically, [facility], Partial fill upon patient request if the prescription is for a schedule... Start Date: 04/05/21 Status: Ordered Magnesium Citrate By Mouth, 0 Refills, Maintenance, 11/28/18 16:25:54 EDT Start Date: 11/28/18 Status: Ordered methenamine hippurate 1 gm oral tablet 1 tablet = 1 Gm, By Mouth, 2 times a day, # 60 tablet, 1 Refills, Maintenance, 04/05/21 13:35:00 EDT, [facility]/pharmacy #[id number], Partial fill upon patient request [...] 0 Refills, Maintenance, 04/05/21 13:30:00 EDT, Tablet, [facility]/pharmacy #[id number], Partial fill upon patient request [...]
--- OUTSIDE RECORDS SUMMARY | 2024-03-17 13:28 | XMS_ITS | Continuity of Care Document ---
Author Organization [facility] Address [address] [place] [address]- Care Team Providers Care Special Needs Nanny Name Role Phone Juan Manuel LIM, Kristen Acosta Primary Care Physic juan alberto [facility] Date[facility]): 09/20/22 - 10/20/22 [facility] [address] [place] [address]- Allergies, Adverse Reactions, Alerts Substance Reaction Severity Status morphine hives, SOB Active Wellbutrin rash Active contrast media (iodine-based) itching throughout body Active Other Environmental Allergy mercury-fillings Active penicillins hive Active Reglan Active cannabis (Schedule I substance) itching/vomiting Active Immunizations Given and Recorded Vaccine Date Status Refusal Reason pneumococcal 20-valent conjugate vaccine 05/30/22 Recorded [id number] 12y+ bivalent booster vax 05/12/22 Recorded influenza [...] vaccine, inactivated 04/26/09 Arnoldo rded SARS-CoV-2 mRNA (oiibogq-lswc-mranp) vax 03/10/22 Recorded SARS-CoV-2 mRNA (lnunibk-opfs-ysxor) vax 10/04/21 Recorded SARS-CoV-2 (COVID-19) mRNA BNT-162b2 [...] tablet, 0 Refills, Maintenance, 10/05/22 9:35:00EST, Tablet, [facility]/pharmacy #[id number], Partial fill upon patient request if the prescription is for a schedule II opioid drug., 155, cm, 09/26/22 14:02:00 ES... Start Date: 10/05/22 Status: Ordered baclofen 20 mg oral tablet 20 mg, 1, tablet, By Mouth, 3 times a day, # 270 tablet, Refills 2, Tot. Refills 2, Maintenance, 12/09/22 12:44:00 EDT, Route to Pharmacy Electronically, [facility], Partial fill upon patient request if the prescription is for a... Start Date: 12/09/22 Stop Date: 09/05/23 Status: Ordered baclofen 20 mg oral tablet 20 mg, 1, tablet, By Mouth, 3 times a day, for 90 days, # 270 tablet, Refills 2, Tot. Refills 2, Hard Stop 12/09/22 12:44:00 EDT, 03/14/22 12:44:00 EDT, [id number] Partial fill upon patient request if the pre... Start Date: 03/14/22 Stop Date: 12/09/22 Status: Ordered bifidobacterium-lactobacillus oral tablet 2 tablet, By Mouth, 2 times a day, [facility] Brand please ([facility]), # 360 tablet, 3 Refills, Maintenance, 08/11/21 17:02:00 EST, Tablet, [facility]/pharmacy #[id number], Partial fill upon patient request if the prescription is for a schedule II opioid drug., 2... Start Date: 08/11/21 Stop Date: 08/06/22 Status: Ordered calcium carbonate 600 mg oral tablet 1 tablet = 600 mg, By Mouth, 2 times a day, # 180 tablet, 2 Refills, Maintenance, 01/06/23 14:02:00EDT, Tablet, [facility]/pharmacy #[id number], Partial fill upon patient request [...] 01/06/23 14:02:00 EDT, 01/11/22 14:02:00 EDT, Tablet, [facility], Partial fill upon patient request if the prescription is for a schedul... Start Date: 01/11/22 Stop Date: 01/06/23 Status: Ordered Centrum Silver Ultra Women's oral tablet 1 tablet, By Mouth, Daily, 0 Refills, Maintenance, 07/09/18 8:43:55 EST Start Date: 07/09/18 Status: Ordered [facility] SENIOR PROBIOTIC CAPSULE TAKE 2 CAPSULES BY MOUTH TWICE A DAY Start Date: 11/01/21 Status: Ordered [facility] Senior Probiotic Capsule [facility] Senior Probiotic Capsule, See Instructions, # 180 [...] 450 mL, 5 Refills, 03/02/22 8:08:00 EDT, [facility]/pharmacy #[id number], 155, cm, 02/23/22 8:04:00 EDT, Height, [...] Refills, Soft Stop, 05/26/22 8:59:00 EDT, Tablet, [facility]/pharmacy #[id number], Partial fill upon patient request [...] 01/02/22 9:03:00 EDT, Route to Pharmacy Electronically, [facility], Partial fill upon patient [...] 01/11/22 13:45:00 EDT[facility] Start Date: 01/11/22 Status: Ordered gabapentin 300 mg oral capsule 300 mg, 1, capsule, By Mouth, 3 times a day, for 90 days, # 270 capsule, Refills 2, Tot. Refills 2,Hard Stop 02/15/23 7:44:00 EDT, 05/21/22 7:44:00 EDT, Route to Pharmacy Electronically, [facility], Partial fill upon patient re... Start Date: 05/21/22 Stop Date: 02/15/23 Status: Ordered gabapentin 300 mg oral capsule 300 mg, 1, capsule, By Mouth, 3 times a day, # 270 capsule, Refills 2, Tot. Refills 2, Maintenance,02/15/23 7:44:00 EDT, Route to Pharmacy Electronically, [facility], Partial fill upon patient request if the prescription is for... Start Date: 02/15/23 Stop Date: 11/12/23 Status: Ordered Juzo Compression Hose Juzo Compression Hose, See Instructions, # 2 each, Refills 2, Tot. Refills 2, Maintenance, 20-30mmghg FF Petite (short),Esrun-tqh-idnw, soft knee, black silicone Stock code [id number] Part #[id number], Size III. [facility] [id number], 12/07/21 11:32:00 EDT,... Start Date: 12/07/21 Status: Ordered levothyroxine 0.088 mg oral tablet 1 tablet = 88 mcg, By Mouth, Daily, # 90 tablet, 1 Refills, Maintenance, 09/08/22 14:26:00 EST, Tablet, [facility], Partial fill upon patient request if the prescription is fora schedule II opioid drug., 155, cm, 07/12/22 14:10... Start Date: 09/08/22 Status: Ordered lisinopril 5 mg oral tablet 5 mg, 1, tablet, By Mouth, Daily, # 90 tablet, Refills 3, Tot. Refills 3, Maintenance, 02/24/22 15:53:00 EDT, Route to Pharmacy Electronically, [facility]/pharmacy #[id number], Partial fill upon patient request if the prescription is for a schedule II opioid drug.... Start Date: 02/24/22 Status: Ordered lisinopril 5 mg oral tablet See Instructions, TAKE 1 TABLET DAILY, # 90 tablet, Refills 1, Maintenance, 09/24/22 19:24:00 EST, Instructions Replace Required Details, Route to Pharmacy Electronically, [facility], 155, cm, 07/12/22 14:10:00 EST, Height, 93.4, k... Start Date: 09/24/22 Status: Ordered Mapap 500 mg oral capsule See Instructions, TAKE 2 CAPSULES BY MOUTH 4 TIMES A DAY NEEDED FOR PAIN, # 480 capsule, 3 Refills, Maintenance, 06/04/22 16:03:00 EDT, [id number], 155, cm, 05/25/22 13:44:00 EDT, Height, 93.4, kg, 11/01/21 16:52:00 EDT, Dry Weight Start Date: 06/04/22 Status: Ordered Power [place] Lift with [place] split-leg sling Power [place] Lift with [place] split-leg sling, See Instructions, # 1 each, [...] 11/01/22 17:46:00 EDT, 07/12/22 17:46:00 EST, Tablet, [facility]/pharmacy #[id number], Partial fill upon pa... Start Date: 07/12/22 Stop Date: 11/01/22 Status: Ordered Provigil 200 mg oral tablet 1 tablet = 200 mg, By Mouth, 2 times a day, takes in am and lunchtime brand name only - dispense aswritten, # 56 tablet, 5 Refills, Maintenance, 10/05/22 17:39:00 EST, Tablet, [facility]/pharmacy #[id number], Partial fill upon patient request if the prescription... Start Date: 10/05/22 Stop Date: 03/22/23 Status: Ordered Provigil 200 mg oral tablet 1 tablet = 200 mg, By Mouth, 2 times a day, for 28 days, takes in am and lunchtime brand name only - dispense as written, # 56 tablet, 3 Refills, Hard Stop 10/25/22 18:25:00 EDT, 07/05/22 18:25:00 EST, Tablet, [facility], Parti... Start Date: 07/05/22 Stop Date: [...] 90 capsule, 2 Refills, 02/28/22 8:13:00 EDT, [facility]/pharmacy #[id number], 155,cm, 02/23/22 8:04:00 EDT, Height, 93.4, kg, 11/01/21 16:52:00 EDT, Dry Weight Start Date: 02/28/22 Status: Ordered Xarelto 20 mg oral tablet 1 tablet = 20 mg, By Mouth, Daily at supper, # 90 tablet, 3 Refills, Maintenance, 02/01/22 12:42:00EDT, Tablet, [facility] Partial fill upon patient request [...] Member Role: Primary Care Nurse Address: Address: [address] [place] [address] [address] [facility] [place] [facility] [address]- [place] Name: Emma Mendoza RN Position: [facility] RN Member Role: Primary Care Nurse Name: Juan Manuel LIM, Kristen Acosta Position: [facility] Primary Care Physician Member Role: PCP Address: Address: [address] [place] [id number]- Name: Jade Medina Position: [facility] RN Member Role: Primary Care Nurse Name: Komal Goodrich Position: [facility] Outreach Member Role: Lifetime Consulting Physician Name: Godfrey Cano Position: [facility] RN Member Role: Primary Care Nurse Name: Anette Miranda RN Position: [facility] Onco RN Member Role: Primary Care Nurse Care Team Related Persons Name: DIOMEDES WARNER Address: home [address] [place] [address] Name: MOO HOWELL Address: home [address] [place] [address] Name: MARLON GENTILE
--- OUTSIDE RECORDS SUMMARY | 2024-03-17 13:28 | XMS_ITS | Continuity of Care Document ---
Author Organization [facility] Address [address] [place] [address]- Care Team Providers Care Garbage Truck Dispatcher Name Role Phone Juan Manuel LIM, Kristen Acosta Primary Care Physic juan alberto [facility] Date[facility]): 08[facility]21 - [facility] [address] [place], [place] [address] Allergies, Adverse Reactions, Alerts Substance Reaction [...] 04/19/22 17:46:00 EDT, 08/22/21 17:46:00 EST, Capsule, [facility]/pharmacy #[id number], Partial fill upon patient request if the prescription is for a schedul... Start Date: 08/22/21 Stop Date: 04/19/22 Status: Ordered ascorbic acid 1000 mg oral tablet 1 tablet = 1,000 mg, By Mouth, 2 times a day, # 90 tablet, 1 Refills, Maintenance, 08/11/21 17:03:00 EST, Tablet, [facility]/pharmacy #[id number], Partial fill upon patient request if the prescription is for a schedule II opioid drug., 153, cm, 06/27/21 7:47:00 ES... Start Date: 08/11/21 Status: Ordered baclofen 20 mg oral tablet 20 mg, 1, tablet, By Mouth, 4 times a day, # 360 tablet, Refills 1, Tot. Refills 1, Maintenance, 08/02/21 14:09:00 EST, Route to Pharmacy Electronically, [facility], Partial fill upon patient request if the prescription is for a... Start Date: 08/02/21 Status: Ordered bifidobacterium-lactobacillus oral tablet 2 tablet, By Mouth, 2 times a day, [facility] Brand please ([facility]), # 360 tablet, 3 Refills, Maintenance, 08/11/21 17:02:00 EST, Tablet, [facility]/pharmacy #[id number], Partial fill upon patient request if [...] 01/09/22 14:17:00 EDT, 07/13/21 14:17:00 EST, Tablet, [facility], Partial fill upon patient request if the prescription is for a schedul... Start Date: 07/13/21 Stop Date: 01/09/22 Status: Ordered calcium carbonate 600 mg oral tablet 1 tablet = 600 mg, By Mouth, 2 times a day, # 180 tablet, 1 Refills, Maintenance, 01/09/22 14:17:00EDT, Tablet, [facility]/pharmacy #[id number], Partial fill upon patient request if [...] Refills, SoftStop, 09/01/21 9:49:00 EST, REC Powder, [facility]/pharmacy #[id number], Partial fill upon patient request if [...] 04/05/21 13:39:00 EDT, Route to Pharmacy Electronically, [facility], Partial fill upon patient request if the prescription is for a schedule... Start Date: 04/05/21 Stop Date: 05/05/21 Status: Ordered gabapentin 300 mg oral capsule 300 mg, 1, capsule, By Mouth, Daily at bedtime, # 90 capsule, Refills 2, Tot. Refills 2, Maintenance, 08/02/21 14:08:00 EST, Route to Pharmacy Electronically, [facility], [...] 07/13/21 14:08:00 EST, Route to Pharmacy Electronically, [facility], Partial fill upon patient request if the prescription is for a schedule... Start Date: 07/13/21 Status: Ordered Power [place] Lift with [place] split-leg sling Power [place] Lift with [place] split-leg sling, See Instructions, # 1 each, [...] 1 Refills, Maintenance, 07/14/21 17:19:00 EST, Tablet, [facility], Partial fill upon patient request if t... Start Date: 07/14/21 Stop Date: 09/08/21 Status: Ordered Turmeric = 750 mg, By Mouth, 2 times a day, 0 Refills, Maintenance, 07/09/18 8:47:35 EST Start Date: 07/09/18 Status: Ordered Vitamin D3 2000 intl units oral capsule 1 capsule, By Mouth, Daily, # 90 capsule, 1 Refills, 08/11/21 17:04:00 EST, [facility]/pharmacy #[id number], 153, cm, 06/27/21 7:47:00 EST, Height [...]
--- OUTSIDE RECORDS SUMMARY | 2024-03-17 13:28 | XMS_ITS | Continuity of Care Document ---
Author Organization [facility] Address [address], [address], [address] [place] [id number]- Care Team Providers Care Railway Patrol Officer Name Role Phone Juan Manuel LIM, Kristen December Karla Primary Care Physic juan alberto [facility] Date[facility]s): 12/27/23 - 01/26/24 [facility] [address], [address] [place] [id number]- Allergies, Adverse Reactions, Alerts Substance Reaction Severity Status morphine hives, SOB Active Wellbutrin rash Active contrast media (iodine-based) itching throughout body Active penicillins hive Active Reglan Active cannabis (Schedule I substance) itching/vomiting Active Other Environmental Allergy mercury-fillings Active Immunizations Given and Recorded Vaccine Date Status Refusal Reason SARS-CoV-2(COVID-19)mRNA-LNP vac([id number]) 10/19/23 Recorded SARS-CoV-2(COVID-19)mRNA-LNP vac([id number]) 07/03/23 Recorded RSV vaccine preF3, recombinant 05/19/23 [...] influenza virus vaccine, inactivated 04/26/09 Arnoldo rded [id number] 12y+ bivalent booster vax 01/23/23 Recorded [id number] 12y+ bivalent booster vax 05/12/22 Recorded pneumococcal 20-valent conjugate vaccine 05/30/22 Recorded SARS-CoV-2 mRNA (swlxuol-hicl-cnxft) vax 03/10/22 Recorded SARS-CoV-2 mRNA (aoqgqta-torj-csrpp) vax 10/04/21 Recorded SARS-CoV-2 (COVID-19) mRNA BNT-162b2 [...] 1 Refills, Maintenance, 08/01/23 13:53:00 EST, Tablet, [facility]/pharmacy #[id number], Partial fill upon patient request [...] 09/05/23 12:44:00 EST, Route to Pharmacy Electronically, [facility], Partial fill upon patient req... Start Date: 09/05/23 Stop Date: 06/01/24 Status: Ordered baclofen 20 mg oral tablet 20 mg, 1, tablet, By Mouth, 3 times a day, for 90 days, # 270 tablet, Refills 1, Tot. Refills 1, Hard Stop 06/25/24 10:31:00 EST, 12/28/23 10:31:00 EDT, Route to Pharmacy Electronically, [facility], Partial fill upon patient req... Start Date: 12/28/23 Stop Date: 06/25/24 Status: Ordered baclofen 20 mg oral tablet 20 mg, 1, tablet, By Mouth, 3 times a day, # 270 tablet, Refills 0, Tot. Refills 0, Maintenance, 06/25/24 10:31:00 EST, Route to Pharmacy Electronically, Pharmacy, Partial fill upon patient request if the prescription is for a... Start Date: 06/25/24 Stop Date: 09/23/24 Status: Ordered baclofen 20 mg oral tablet 20 mg, 1, tablet, By Mouth, 3 times a day, for 90 days, # 270 tablet, Refills 2, Tot. Refills 2, Hard Stop 06/01/24 12:44:00 EDT, 09/05/23 12:44:00 EST, [id number] fill upon patient request if the pre... Start Date: 09/05/23 Stop Date: 06/01/24 Status: Ordered bifidobacterium-lactobacillus oral tablet 2 tablet, By Mouth, 2 times a day, [facility] Brand please ([facility]), # 360 tablet, 3 Refills, Maintenance, 08/11/21 17:02:00 EST, Tablet, [facility]/pharmacy #[id number], Partial fill upon patient request if the prescription is for a schedule II opioid drug., 2... Start Date: 08/11/21 Stop Date: 08/06/22 Status: Ordered calcium carbonate 600 mg oral tablet 1 tablet = 600 mg, By Mouth, 2 times a day, # 180 tablet, 2 Refills, Maintenance, 01/06/23 14:02:00EDT, Tablet, [facility]/pharmacy #[id number], Partial fill upon patient request if the prescription is for a schedule II opioid drug., 155, cm, 02/23/22 8:04:00 EDT... Start Date: 01/06/23 Stop Date: 10/03/23 Status: Ordered Centrum Silver Ultra Women's oral tablet 1 tablet, By Mouth, Daily, 0 Refills, Maintenance, 07/09/18 8:43:55 EST Start Date: 07/09/18 Status: Ordered [facility] SENIOR PROBIOTIC CAPSULE TAKE 2 CAPSULES BY MOUTH TWICE A DAY Start Date: 11/01/21 Status: Ordered [facility] Senior Probiotic Capsule [facility] Senior Probiotic Capsule, See Instructions, # [...] 450 mL, 5 Refills, 03/02/22 8:08:00 EDT, [facility]/pharmacy #[id number], 155, cm, 02/23/22 8:04:00 EDT, [...] Refills, Soft Stop, 03/27/23 18:43:00 EDT, Tablet, [facility]/pharmacy #[id number], Partial fill upon patient request if the prescription is for a schedule II opioid... Start Date: 03/27/23 Status: Ordered fluconazole 150 mg oral tablet 1 tablet = 150 mg, By Mouth, Every week, # 4 tablet, 1 Refills, Soft Stop, 05/26/22 8:59:00 EDT, Tablet, [facility]/pharmacy #[id number], Partial fill upon patient request [...] 07/03/23 1:01:00 EST, Route to Pharmacy Electronically, [facility], 155, cm, 05/28/23 11:02:00 EDT, Height, 93.4, kg, 11/01/21 16:52:00 EDT, Dry Weight Start Date: 07/03/23 Status: Ordered gabapentin 300 mg oral capsule 300 mg, 1, capsule, By Mouth, 3 times a day, # 270 capsule, Refills 1, Tot. Refills 1, Maintenance,12/28/23 10:30:00 EDT, [facility], [facility] upon patient request if the prescription is fo... Start Date: 12/28/23 Stop Date: 06/25/24 Status: Ordered gabapentin 300 mg oral capsule See Instructions, TAKE 1 CAPSULE TWICE DAILY. IF SYMPTOMS CONTINUE MAY INCREASE DOSE AFTER 2 WEEKS TO 1 CAPSULE 3 TIMES A DAY, # 90 capsule, Refills 2, Tot. Refills 2, Maintenance, 10/05/23 14:43:00 EST, Instructions Replace Required Details, Route to... Start Date: 10/05/23 Status: Ordered Juzo Compression Hose Juzo Compression Hose, See Instructions, # 2 each, Refills 2, Tot. Refills 2, Maintenance, Juzo Compression Hose 2 pairs [id number]-had-hqcs Soft Knee FF Petite 20-30 mmHg Silicone, Black Stock Code [id number] I I I Part #[id number] Size I I I SKU... Start Date: 03/12/23 Status: Ordered levothyroxine 0.088 mg oral tablet 1 tablet = 88 mcg, By Mouth, Daily, # 90 tablet, 1 Refills, Maintenance, 10/01/23 17:11:00 EST, Tablet, [facility]/pharmacy #[id number], Partial fill upon patient request if the prescription is for a schedule II opioid drug., 155, cm, 05/28/23 11:02:00 EDT, Height... Start Date: 10/01/23 Status: Ordered lisinopril 5 mg oral tablet 1, tablet, By Mouth, Daily, # 90 tablet, Refills 1, Tot. Refills 1, Maintenance, 10/01/23 17:15:00 EST, Route to Pharmacy Electronically, [facility]/pharmacy #[id number], 155, cm, 05/28/23 11:02:00 EDT, Height, 93.4, kg, 11/01/21 16:52:00 EDT, Dry Weight Start Date: 10/01/23 Status: Ordered Mapap 500 mg oral capsule See Instructions, TAKE 2 CAPSULES BY MOUTH 4 TIMES A DAY NEEDED FOR PAIN, # 480 capsule, 0 Refills, Maintenance, 11/12/23 15:45:00 EDT, [facility]/pharmacy #[id number], 155, cm, 05/28/23 11:02:00 EDT, Height Start Date: 11/12/23 Status: Ordered Power [place] Lift with [place] split-leg sling Power [place] Lift with [place] split-leg sling, See Instructions, # 1 each, [...] 0 Refills, Maintenance, 08/08/23 18:05:00 EST, Tablet, [id number], Partial fill upon patient request if... Start Date: 08/08/23 Stop Date: 09/05/23 Status: Ordered Provigil 200 mg oral tablet 1 tablet = 200 mg, By Mouth, 2 times a day, for 28 days, takes in am and lunchtime brand name only - dispense as written Brand name only, # 56 tablet, 3 Refills, Hard Stop 03/14/24 2:50:00 EDT, 11/23/23 2:50:00 EDT, Tablet, [id number], Part[place]... Start Date: 11/23/23 Stop Date: [...] Team Personnel Name: Juliann Rich RN Position: [facility] RN Member Role: Primary Care Nurse Name: Elsa Allen NP Position: [facility] Outreach Member Role: Primary Care Nurse Address: Address: [address] [place] [address]- [place] Name: Emma Mendoza RN Position: [facility] AMB Nurse Member Role: Primary Care Nurse Name: Kristen Zambrano MD Position: [facility] Physician - Primary Care Member Role: PCP Address: Address: [address] [place] [address]- [place] Name: Anette Soler RN Position: [facility] Onco RN Member Role: Primary Care Nurse Name: Komal Goodrich Position: [facility] Outreach Member Role: Lifetime Consulting Physician Name: Godfrey Cano Position: [facility] RN Member Role: Primary Care Nurse Care Team Related Persons Name: ALANA, DIOMEDES Address: home [address] [place] [address] Name: MOO HOWELL Address: [address] [place] [address] Name: MARLON GENTILE
--- OUTSIDE RECORDS SUMMARY | 2024-03-17 13:28 | XMS_ITS | Continuity of Care Document ---
Author Organization [facility] Address [address] [facility] [address] [place] [address]- Care Team Providers Care Informatics Nurse Name Role Phone Juan Manuel LIM, Kristen Acosta Primary Care Physic juan alberto Encounter 02/18/24 - 02/25/24 [facility] [address] [facility], [address] [place] [address]- Attending Physician: Kristen Zambrano MD Admitting Physician: Kristen Zambrano MD Referring Physician: Kristen Zambrano MD Allergies, Adverse Reactions, Alerts Substance Reaction Severity Status morphine hives, SOB Active penicillins hive Active Wellbutrin rash Active Reglan Active cannabis (Schedule I substance) itching/vomiting Active Other Environmental Allergy mercury-fillings Active contrast media (iodine-based) itching throughout body Active Immunizations Given and Recorded Vaccine Date Status Refusal Reason SARS-CoV-2(COVID-19)mRNA-LNP vac([id number]) 10/19/23 Recorded SARS-CoV-2(COVID-19)mRNA-LNP vac([id number]) 07/03/23 Recorded RSV vaccine preF3, recombinant 05/19/23 [...] influenza virus vaccine, inactivated 04/26/09 Arnoldo rded [id number] 12y+ bivalent booster vax 01/23/23 Recorded [id number] 12y+ bivalent booster vax 05/12/22 Recorded pneumococcal 20-valent conjugate vaccine 05/30/22 Recorded SARS-CoV-2 mRNA ([id number]-yuzm-zrxbp) vax 03/10/22 Recorded SARS-CoV-2 mRNA (cbatorp-wjgl-jjugf) vax 10/04/21 Recorded SARS-CoV-2 (COVID-19) mRNA BNT-162b2 [...] 1 Refills, Maintenance, 08/01/23 13:53:00 EST, Tablet, [facility]/pharmacy #[id number], Partial fill upon patient request if the prescription is for a schedule II opioid drug., 155, cm, 05/28/23 11:02:00 E... Start Date: 08/01/23 Status: Ordered baclofen 20 mg oral tablet 20 mg, 1, tablet, By Mouth, 3 times a day, # 270 tablet, Refills 0, Tot. Refills 0, Maintenance, 06/25/24 10:31:00 EST, Route to [facility]ically, [facility], Partial fill upon patient request if the prescription is for a... Start Date: 06/25/24 Stop Date: 09/23/24 Status: Ordered bifidobacterium-lactobacillus oral tablet 2 tablet, By Mouth, 2 times a day, [facility] Brand please (Senior Wellness), # 360 tablet, 3 Refills, Maintenance, 08/11/21 17:02:00 EST, Tablet, [facility]/pharmacy #[id number], Partial fill upon patient request if the prescription is for a schedule II opioid drug., 2... Start Date: 08/11/21 Stop Date: 08/06/22 Status: Ordered calcium carbonate 600 mg oral tablet 1 tablet = 600 mg, By Mouth, 2 times a day, # 180 tablet, 2 Refills, Maintenance, 01/06/23 14:02:00EDT, Tablet, [facility]/pharmacy #[id number], Partial fill upon patient request if the prescription is for a schedule II opioid drug., 155, cm, 02/23/22 8:04:00 EDT... Start Date: 01/06/23 Stop Date: 10/03/23 Status: Ordered Centrum Silver Ultra Women's oral tablet 1 tablet, By Mouth, Daily, 0 Refills, Maintenance, 07/09/18 8:43:55 EST Start Date: 07/09/18 Status: Ordered [facility] SENIOR PROBIOTIC CAPSULE TAKE 2 CAPSULES BY MOUTH TWICE A DAY Start Date: 11/01/21 Status: Ordered Enemeez Mini 283 mg rectal enema See Instructions, USE RECTALLY EVERY DAY NEEDED FOR CONSTIPATION, # 450 mL, 5 Refills, 03/02/22 8:08:00 EDT, [facility]/pharmacy #[id number], 155, cm, 02/23/22 8:04:00 EDT, Height, [...] 07/03/23 1:01:00 EST, Route to Pharmacy Electronically, [facility], 155, cm, 05/28/23 11:02:00 EDT, Height, 93.4, kg, 11/01/21 16:52:00 EDT, Dry Weight Start Date: 07/03/23 Status: Ordered gabapentin 300 mg oral capsule 300 mg, 1, capsule, By Mouth, 3 times a day, # 270 capsule, Refills 1, Tot. Refills 1, Maintenance,12/28/23 10:30:00 EDT, Route to Pharmacy Electronically, [facility], Partialfill upon patient request if the prescription is fo... Start Date: 12/28/23 Stop Date: 06/25/24 Status: Ordered Juzo Compression Hose Juzo Compression Hose, See Instructions, # 2 each, Refills 2, Tot. Refills 2, Maintenance, Juzo Compression Hose 2 pairs [id number]-[id number] Soft Knee FF Petite 20-30 mmHg Silicone, Black Stock Code [id number] I I I Part #92703 Size I I I SKU... Start Date: 03/12/23 Status: Ordered levothyroxine 0.088 mg oral tablet 1 tablet = 88 mcg, By Mouth, Daily, # 90 tablet, 1 Refills, Maintenance, 10/01/23 17:11:00 EST, Tablet, [facility]/pharmacy #[id number], Partial fill upon patient request if the prescription is for a schedule II opioid drug., 155, cm, 05/28/23 11:02:00 EDT, Height... Start Date: 10/01/23 Status: Ordered lisinopril 5 mg oral tablet 1, tablet, By Mouth, Daily, # 90 tablet, Refills 1, Tot. Refills 1, Maintenance, 10/01/23 17:15:00 EST, Route to Pharmacy Electronically, [facility]/pharmacy #[id number], 155, cm, 05/28/23 11:02:00 EDT, Height, 93.4, kg, 11/01/21 16:52:00 EDT, Dry Weight Start Date: 10/01/23 Status: Ordered Mapap 500 mg oral capsule See Instructions, TAKE 2 CAPSULES BY MOUTH 4 TIMES A DAY NEEDED FOR PAIN, # 480 capsule, 0 Refills, Maintenance, 11/12/23 15:45:00 EDT, [facility]/pharmacy #[id number], 155, cm, 05/28/23 11:02:00 EDT, Height Start Date: 11/12/23 Status: Ordered Power [place] Lift with [place] split-leg sling Power [place] Lift with [place] split-leg sling, See Instructions, # 1 each, [...] 03/14/24 2:50:00 EDT, 11/23/23 2:50:00 EDT, Tablet, [facility]/pharmacy #[id number], Partia... Start Date: 11/23/23 Stop Date: [...] 90 capsule, 1 Refills, 12/11/22 15:16:00 EDT, [facility]/pharmacy #[id number], 155, cm, 10/10/22 13:40:00 EST, Height, 93.4, kg, 11/01/21 16:52:00 EDT, Dry Weight Start Date: 12/11/22 Status: Ordered Xarelto 20 mg oral tablet See Instructions, TAKE 1 TABLET DAILY AT SUPPER, # 90 tablet, 3 Refills, Maintenance, 01/17/23 9:37:00 EDT, [facility], 155, cm, 10/10/22 [...] discharge Confirmed Active Vaginal odor Confirmed Active Results Radiology Reports * Exam Date Time Procedure Performing Provider Status 02/18/24 2:21 PM Foot Min 3 Views Left Emilia Salazar; Ricardo ut (Verified) Notes: (Foot Min 3 Views Left) Reason For Exam: Pain RESULT: Foot Min 3 Views Left Examination: Left foot performed on 02/18/2024. History: Reason: Pain Findings: Frontal, oblique, and lateral views of the left foot are submitted. Osteopenia is present. No fractures or dislocations are demonstrated. There are no erosions. The soft tissues are unremarkable. IMPRESSION: There is no osseous abnormality. WSN: [id number] Ordering Physician: Kristen Zambrano Dictated By: Evy Stephenson MD Dictated Date/Time: 02/19/24 8:25 am Reviewed By: Evy Stephenson MD Signed By: Evy Stephenson MD Signed Date/Time: 02/19/24 8:25 am Transcribed By: SONIA Transcribed Date/Time: 02/19/24 8:24 am * Exam Date Time Procedure Performing Provider Status 02/18/24 3:00 PM Ankle Min 3 Views Left Yaima Cruz; Yue (Verified) Notes: (Ankle Min 3 Views Left) Reason For Exam: Pain RESULT: Ankle Min 3 Views Left Examination: Left ankle performed on 02/18/2024. History: Reason: Pain Findings: Frontal, oblique, and lateral views of the left ankle are submitted. Osteopenia is present. The mortise is preserved. No fractures or dislocations are demonstrated. Thesoft tissues are unremarkable. Impression: Osteopenia. There is no acute osseous abnormality. WSN: [id number] Ordering Physician: Kristen Zambrano Dictated By: Evy Stephenson MD Dictated Date/Time: 02/18/24 3:05 pm Reviewed By: Evy Stephenson MD Signed By: Evy Stephenson MD Signed Date/Time: 02/18/24 3:05 pm Transcribed By: SONIA Transcribed Date/Time: 02/18/24 3:04 pm Social History Social History Type Response Smoking Status Never (less than 100 in lifetime) entered on: 10/31/21 Sex Patient Care team information Care Team Personnel Name: Juliann Rich RN Position: [facility] RN Member Role: Primary Care Nurse Name: Elsa Allen NP Position: [facility] Outreach Member Role: Primary Care Nurse Address: Address: [address] [place] [address]- [place] Name: Emma Mendoza RN Position: [facility] AMB Nurse Member Role: Primary Care Nurse Name: Juan Manuel LIM, Kristen Acosta Position: [facility] Physician - Primary Care Member Role: PCP Address: Address: [address] [place] [address]- [place] Name: Anette Soler RN Position: [facility] Onco RN Member Role: Primary Care Nurse Name: Komal Goodrich Position: [facility] Outreach Member Role: Lifetime Consulting Physician Name: Godfrey Cano Position: [facility] RN Member Role: Primary Care Nurse Care Team Related Persons Name: DIOMEDES WARNER Address: home [address] [place] [address] Name: MOO HOWELL Address: [address] [place] [address] Name: MARLON GENTILE
--- OUTSIDE RECORDS SUMMARY | 2024-03-17 13:28 | XMS_ITS | Continuity of Care Document ---
Author Organization [facility] Address [address] [place] [address]- Care Team Providers Care Dish Maker Name Role Phone Juan Manuel LIM, Kristen Acosta Primary Care Physic juan alberto Encounter [facility] Date(s): 11/13/22 - 12/13/22 [facility] [address] [place] [address]- Allergies, Adverse Reactions, Alerts Substance Reaction Severity Status morphine hives, SOB Active Wellbutrin rash Active contrast media (iodine-based) itching throughout body Active Other Environmental Allergy mercury-fillings Active penicillins hive Active Reglan Active cannabis (Schedule I substance) itching/vomiting Active Immunizations Given and Recorded Vaccine Date Status Refusal Reason pneumococcal 20-valent conjugate vaccine 05/30/22 Recorded [id number] 12y+ bivalent booster vax 05/12/22 Recorded influenza [...] vaccine, inactivated 04/26/09 Arnoldo rded SARS-CoV-2 mRNA (rvwpmtj-nwqk-iqajc) vax 03/10/22 Recorded SARS-CoV-2 mRNA (gwvkqpw-cdmn-bimat) vax 10/04/21 Recorded SARS-CoV-2 (COVID-19) mRNA BNT-162b2 [...] 1 Refills, Maintenance, 12/11/22 17:34:00 EDT, Tablet, [facility]/pharmacy #[id number], Partial fill upon patient request if the prescription is for a schedule II opioid drug., 155, cm, 10/10/22 13:40:00 E... Start Date: 12/11/22 Status: Ordered baclofen 20 mg oral tablet 20 mg, 1, tablet, By Mouth, 3 times a day, # 270 tablet, Refills 2, Tot. Refills 2, Maintenance, 12/09/22 12:44:00 EDT, Route to Pharmacy Electronically, [facility], Partial fill upon patient request if the prescription is for a... Start Date: 12/09/22 Stop Date: 09/05/23 Status: Ordered bifidobacterium-lactobacillus oral tablet 2 tablet, By Mouth, 2 times a day, [facility] Brand please (Senior Wellness), # 360 tablet, 3 Refills, Maintenance, 08/11/21 17:02:00 EST, Tablet, [facility]/pharmacy #[id number], Partial fill upon patient request if the prescription is for a schedule II opioid drug., 2... Start Date: 08/11/21 Stop Date: 08/06/22 Status: Ordered calcium carbonate 600 mg oral tablet 1 tablet = 600 mg, By Mouth, 2 times a day, # 180 tablet, 2 Refills, Maintenance, 01/06/23 14:02:00EDT, Tablet, [facility]/pharmacy #[id number], Partial fill upon patient [...] 14:02:00 EDT, 01/11/22 14:02:00 EDT, Tablet, [facility], Partial fill upon patient request if the prescription is for a schedul... Start Date: 01/11/22 Stop Date: 01/06/23 Status: Ordered Centrum Silver Ultra Women's oral tablet 1 tablet, By Mouth, Daily, 0 Refills, Maintenance, 07/09/18 8:43:55 EST Start Date: 07/09/18 Status: Ordered [facility] SENIOR PROBIOTIC CAPSULE TAKE 2 CAPSULES BY MOUTH TWICE A DAY Start Date: 11/01/21 Status: Ordered [facility] Senior Probiotic Capsule [facility] Senior Probiotic Capsule, [...] 450 mL, 5 Refills, 03/02/22 8:08:00 EDT, [facility]/pharmacy #[id number], 155, cm, 02/23/22 8:04:00 [...] Refills, Soft Stop, 05/26/22 8:59:00 EDT, Tablet, [facility]/pharmacy #[id number], Partial fill upon patient [...] 01/11/22 13:45:00 EDT, [facility] Start Date: 01/11/22 Status: Ordered gabapentin [...] Tot. Refills 2, Maintenance, 20-30mmghg FF Petite (short),Zlgpq-nda-mbvn, soft knee, black silicone Stock code [id number] Part #[id number], Size III. [facility] [id number], 12/07/21 11:32:00 EDT,... Start Date: 12/07/21 Status: Ordered levothyroxine 0.088 mg oral tablet 1 tablet = 88 mcg, By Mouth, Daily, # 90 tablet, 1 Refills, Maintenance, 09/08/22 14:26:00 EST, Tablet, [facility], Partial fill upon patient request if the prescription is fora schedule II opioid drug., 155, cm, 07/12/22 14:10... Start Date: 09/08/22 Status: Ordered lisinopril 5 mg oral tablet 5 mg, 1, tablet, By Mouth, Daily, # 90 tablet, Refills 3, Tot. Refills 3, Maintenance, 02/24/22 15:53:00 EDT, Route to Pharmacy Electronically, [facility]/pharmacy #[id number], Partial fill upon patient request if the prescription is for a schedule II opioid drug.... Start Date: 02/24/22 Status: Ordered lisinopril 5 mg oral tablet See Instructions, TAKE 1 TABLET DAILY, # 90 tablet, Refills 1, Maintenance, 09/24/22 19:24:00 EST, Instructions Replace Required Details, Route to Pharmacy Electronically, [facility], 155, cm, 07/12/22 14:10:00 EST, Height, 93.4, k... Start Date: 09/24/22 Status: Ordered Mapap 500 mg oral capsule See Instructions, TAKE 2 CAPSULES BY MOUTH 4 TIMES A DAY NEEDED FOR PAIN, # 480 capsule, 3 Refills, Maintenance, 06/04/22 16:03:00 EDT, [facility] STORE [id number], 155, cm, 05/25/22 13:44:00 EDT, Height, 93.4, kg, 11/01/21 16:52:00 EDT, Dry Weight Start Date: 06/04/22 Status: Ordered Power [place] Lift with [place] split-leg sling Power [place] Lift with [place] split-leg sling, See Instructions, # 1 each, [...] 03/22/23 17:39:00 EDT, 10/05/22 17:39:00 EST, Tablet, [facility]/pharmacy #[id number], Partial fill upon pa... Start Date: 10/05/22 Stop Date: 03/22/23 Status: Ordered Provigil 200 mg oral tablet 1 tablet = 200 mg, By Mouth, 2 times a day, takes in am and lunchtime brand name only - dispense aswritten, # 56 tablet, 5 Refills, Maintenance, 12/11/22 17:34:00 EDT, Tablet, [facility]/pharmacy #[id number], Partial fill upon patient [...] 90 capsule, 1 Refills, 12/11/22 15:16:00 EDT, [facility]/pharmacy #[id number], 155, cm, 10/10/22 13:40:00 EST, Height, 93.4, kg, 11/01/21 16:52:00 EDT, Dry Weight Start Date: 12/11/22 Status: Ordered Xarelto 20 mg oral tablet 1 tablet = 20 mg, By Mouth, Daily at supper, # 90 tablet, 3 Refills, Maintenance, 02/01/22 12:42:00EDT, Tablet, [facility], Partial fill upon patient request if [...] Team Personnel Name: Juliann Rich RN Position: [facility] RN Member Role: Primary Care Nurse Name: Elsa Allen NP Position: Reference Physician Member Role: Primary Care Nurse Address: Address: [address] [place] [address] [address] [place] [address]- Name: Emma Mendoza RN Position: [facility] RN Member Role: Primary Care Nurse Name: Kristen Zambrano MD Position: [facility] Primary Care Physician Member Role: PCP Address: Address: [address] [place] [id number]- Name: Jade Medina Position: S RN Member Role: Primary Care Nurse Name: Komal Goodrich Position: S Outreach Member Role: Lifetime Consulting Physician Name: Godfrey Cano Position: S RN Member Role: Primary Care Nurse Name: Anette Miranda RN Position: [facility] Onco RN Member Role: Primary Care Nurse Care Team Related Persons Name: DIOMEDES WARNER Address: [address] [place] [address] Name: MOO HOWELL Address: [address] [place] [address] Name: MARLON GENTILE
--- OUTSIDE RECORDS SUMMARY | 2024-03-17 13:28 | XMS_ITS | Continuity of Care Document ---
Author Organization [facility] Address [address] [place] [address]- Care Team Providers Care Account Service Representative Name Role Phone Juan Manuel LIM, Kristen Acosta Primary Care Physic juan alberto [facility] 08/[facility]/23 [facility] [address] [place] [address]- Allergies, Adverse Reactions, Alerts Substance Reaction Severity Status morphine hives, SOB Active penicillins hive Active Wellbutrin rash Active Reglan Active cannabis (Schedule I substance) itching/vomiting Active Other Environmental Allergy mercury-fillings Active contrast media (iodine-based) itching throughout body Active Immunizations Given and Recorded Vaccine Date Status Refusal Reason pneumococcal 20-valent conjugate vaccine 05/30/22 Recorded [id number] 12y+ bivalent booster vax 05/12/22 Recorded influenza [...] vaccine, inactivated 04/26/09 Arnoldo rded SARS-CoV-2 mRNA (bgolcfj-nvtc-tmmsi) vax 03/10/22 Recorded SARS-CoV-2 mRNA (cfptukh-pqkk-gqpxf) vax 10/04/21 Recorded SARS-CoV-2 (COVID-19) mRNA BNT-162b2 [...] 1 Refills, Maintenance, 08/01/23 13:53:00 EST, Tablet, [facility]/pharmacy #[id number], Partial fill upon patient request if the prescription is for a schedule II opioid drug., 155, cm, 05/28/23 11:02:00 E... Start Date: 08/01/23 Status: Ordered baclofen 20 mg oral tablet 20 mg, 1, tablet, By Mouth, 3 times a day, for 90 days, # 270 tablet, Refills 2, Tot. Refills 2, Hard Stop 06/01/24 12:44:00 EDT, 09/05/23 12:44:00 EST, Route to Pharmacy Electronically, [facility], Partial fill upon patient req... Start Date: 09/05/23 Stop Date: 06/01/24 Status: Ordered baclofen 20 mg oral tablet 20 mg, 1, tablet, By Mouth, 3 times a day, for 90 days, # 270 tablet, Refills 2, Tot. Refills 2, Hard Stop 09/05/23 12:44:00 EST, 12/09/22 12:44:00 EDT, Route to Pharmacy Electronically, [facility], Partial fill upon patient req... Start Date: 12/09/22 Stop Date: 09/05/23 Status: Ordered baclofen 20 mg oral tablet 20 mg, 1, tablet, By Mouth, 3 times a day, # 270 tablet, Refills 2, Tot. Refills 2, Maintenance, 09/05/23 12:44:00 EST, Route to Pharmacy Electronically, [facility]/pharmacy #[id number], Partial fill upon patientrequest if the prescription is for a schedule II op... Start Date: 09/05/23 Stop Date: 06/01/24 Status: Ordered bifidobacterium-lactobacillus oral tablet 2 tablet, By Mouth, 2 times a day, [facility] Brand please (Senior Wellness), # 360 tablet, 3 Refills, Maintenance, 08/11/21 17:02:00 EST, Tablet, [facility]/pharmacy #[id number], Partial fill upon patient request if the prescription is for a schedule II opioid drug., 2... Start Date: 08/11/21 Stop Date: 08/06/22 Status: Ordered calcium carbonate 600 mg oral tablet 1 tablet = 600 mg, By Mouth, 2 times a day, # 180 tablet, 2 Refills, Maintenance, 01/06/23 14:02:00EDT, Tablet, [facility]/pharmacy #[id number], Partial fill upon patient request if the prescription is for a schedule II opioid drug., 155, cm, 02/23/22 8:04:00 EDT... Start Date: 01/06/23 Stop Date: 10/03/23 Status: Ordered Centrum Silver Ultra Women's oral tablet 1 tablet, By Mouth, Daily, 0 Refills, Maintenance, 07/09/18 8:43:55 EST Start Date: 07/09/18 Status: Ordered [facility] SENIOR PROBIOTIC CAPSULE TAKE 2 CAPSULES BY MOUTH TWICE A DAY Start Date: 11/01/21 Status: Ordered [facility] Senior Probiotic Capsule [facility] Senior Probiotic Capsule, See Instructions, # [...] 450 mL, 5 Refills, 03/02/22 8:08:00 EDT, [facility]/pharmacy #[id number], 155, cm, 02/23/22 8:04:00 EDT, [...] Refills, Soft Stop, 03/27/23 18:43:00 EDT, Tablet, [facility]/pharmacy #[id number], Partial fill upon patient request if the prescription is for a schedule II opioid... Start Date: 03/27/23 Status: Ordered fluconazole 150 mg oral tablet 1 tablet = 150 mg, By Mouth, Every week, # 4 tablet, 1 Refills, Soft Stop, 05/26/22 8:59:00 EDT, Tablet, [facility]/pharmacy #[id number], Partial fill upon patient request [...] 07/03/23 1:01:00 EST, Route to Pharmacy Electronically, [facility], 155, cm, 05/28/23 11:02:00 EDT, Height, 93.4, kg, 11/01/21 16:52:00 EDT, Dry Weight Start Date: 07/03/23 Status: Ordered gabapentin 300 mg oral capsule See Instructions, TAKE 1 CAPSULE TWICE DAILY. IF SYMPTOMS CONTINUE MAY INCREASE DOSE AFTER 2 WEEKS TO 1 CAPSULE 3 TIMES A DAY, # 90 capsule, Refills 2, Maintenance, 08/01/23 17:16:00 EST, Instructions Replace Required Details, Route to Pharmacy Electr... Start Date: 08/01/23 Status: Ordered gabapentin 300 mg oral capsule 300 mg, 1, capsule, By Mouth, 3 times a day, # 270 capsule, Refills 2, Tot. Refills 2, Maintenance,02/15/23 7:44:00 EDT, Route to Pharmacy Electronically, [facility], Partial fill upon patient request if the prescription is for... Start Date: 02/15/23 Stop Date: 11/12/23 Status: Ordered Juzo Compression Hose Juzo Compression Hose, See Instructions, # 2 each, Refills 2, Tot. Refills 2, Maintenance, Juzo Compression Hose 2 pairs cvbac-dwi-acam Soft Knee FF Petite 20-30 mmHg Silicone, Black Stock Code [id number] I I I Part #62914 Size I I I SKU... Start Date: 03/12/23 Status: Ordered levothyroxine 0.088 mg oral tablet 1 tablet = 88 mcg, By Mouth, Daily, # 90 tablet, 3 Refills, Maintenance, 08/01/23 13:54:00 EST, Tablet, [facility]/pharmacy #[id number], Partial fill upon patient request if the prescription is for a schedule II opioid drug., 155, cm, 05/28/23 11:02:00 EDT, Height... Start Date: 08/01/23 Status: Ordered lisinopril 5 mg oral tablet 1, tablet, By Mouth, Daily, # 90 tablet, Refills 3, Tot. Refills 3, Maintenance, 03/15/23 17:16:00 EDT, Route to Pharmacy Electronically, [facility], 155, cm, 03/15/23 17:11:00EDT, Height, 93.4, kg, 11/01/21 16:52:00 EDT, Dry W... Start Date: 03/15/23 Status: Ordered Mapap 500 mg oral capsule See Instructions, TAKE 2 CAPSULES BY MOUTH 4 TIMES A DAY NEEDED FOR PAIN, # 480 capsule, 0 Refills, Maintenance, 08/01/23 13:54:00 EST, [id number], cm, 05/28/23 11:02:00 EDT, Height, 93.4, kg, 11/01/21 16:52:00 EDT, Dry Weight Start Date: 08/01/23 Status: Ordered Power [place] Lift with [place] split-leg sling Power [place] Lift with [place] split-leg sling, See Instructions, # 1 each, [...] aswritten Brand name only, # 56 tablet, 3 Refills, Maintenance, 08/03/23 2:50:00 EST, Tablet, [facility], Partial fill upon patie... Start Date: 08/03/23 Stop Date: 11/23/23 Status: [...] 90 capsule, 1 Refills, 12/11/22 15:16:00 EDT, [facility]/pharmacy #[id number], 155, cm, 10/10/22 13:40:00 EST, Height, 93.4, kg, 11/01/21 16:52:00 EDT, Dry Weight Start Date: 12/11/22 Status: Ordered Xarelto 20 mg oral tablet See Instructions, TAKE 1 TABLET DAILY AT SUPPER, # 90 tablet, 3 Refills, Maintenance, 01/17/23 9:37:00 EDT, [facility], 155, cm, 10/10/22 13:40:00 [...] Team Personnel Name: Juliann Rich RN Position: [facility] RN Member Role: Primary Care Nurse Name: Alejandro CENTENO, Elsa Peterson Position: Reference Physician Member Role: Primary Care Nurse Address: Address: [address] [place] [address] [address] [place] [address]- Name: Emma Mendoza RN Position: [facility] Nurse Member Role: Primary Care Nurse Name: Juan Manuel LIM, Kristen Acosta Position: [facility] Physician - Primary Care Member Role: PCP Address: Address: [address] [place] [id number]- Name: Komal Goodrich Position: [facility] Outreach Member Role: Lifetime Consulting Physician Name: Godfrey Cano Position: [facility] RN Member Role: Primary Care Nurse Name: Anette Miranda RN Position: [facility] Onco RN Member Role: Primary Care Nurse Care Team Related Persons Name: DIOMEDES WARNER Address: [address] [place] [address] Name: MOO HOWELL Address: home [address] [place] [address] Name: MARLON GENTILE
--- OUTSIDE RECORDS SUMMARY | 2024-03-17 13:28 | XMS_ITS | Continuity of Care Document ---
Author Organization [facility] Address [address] [place] [address]- Care Team Providers Care Centerless Grinder Operator Name Role Phone Juan Manuel LIM, Kristen Acosta Primary Care Physic juan alberto [facility]): [facility] - 06/23/23 [facility] [address] [place] [address]- Allergies, Adverse Reactions, Alerts Substance Reaction Severity Status morphine hives, SOB Active penicillins hive Active Wellbutrin rash Active Reglan Active cannabis (Schedule I substance) itching/vomiting Active Other Environmental Allergy mercury-fillings Active contrast media (iodine-based) itching throughout body Active Immunizations Given and Recorded Vaccine Date Status Refusal Reason pneumococcal 20-valent conjugate vaccine 05/30/22 Recorded [id number] 12y+ bivalent booster vax 05/12/22 Recorded influenza [...] vaccine, inactivated 04/26/09 Arnoldo rded SARS-CoV-2 mRNA (fjlzjhz-pfiv-eamha) vax 03/10/22 Recorded SARS-CoV-2 mRNA (diojyoe-vnac-saowv) vax 10/04/21 Recorded SARS-CoV-2 (COVID-19) mRNA BNT-162b2 [...] Refills, Maintenance, 12/11/22 17:34:00 EDT, Tablet, [facility]/pharmacy #[id number], Partial fill upon patient request if the prescription is for a schedule II opioid drug., 155, cm, 10/10/22 13:40:00 E... Start Date: 12/11/22 Status: Ordered baclofen 20 mg oral tablet 20 mg, 1, tablet, By Mouth, 3 times a day, # 270 tablet, Refills 2, Tot. Refills 2, Maintenance, 12/09/22 12:44:00 EDT, Route to Pharmacy Electronically, [facility], Partial fill upon patient request if the prescription is for a... Start Date: 12/09/22 Stop Date: 09/05/23 Status: Ordered bifidobacterium-lactobacillus oral tablet 2 tablet, By Mouth, 2 times a day, [facility] Brand please (Senior Wellness), # 360 tablet, 3 Refills, Maintenance, 08/11/21 17:02:00 EST, Tablet, [facility]/pharmacy #[id number], Partial fill upon patient request if the prescription is for a schedule II opioid drug., 2... Start Date: 08/11/21 Stop Date: 08/06/22 Status: Ordered calcium carbonate 600 mg oral tablet 1 tablet = 600 mg, By Mouth, 2 times a day, # 180 tablet, 2 Refills, Maintenance, 01/06/23 14:02:00EDT, Tablet, [facility]/pharmacy #[id number], Partial fill upon patient request if the prescription is for a schedule II opioid drug., 155, cm, 02/23/22 8:04:00 EDT... Start Date: 01/06/23 Stop Date: 10/03/23 Status: Ordered Centrum Silver Ultra Women's oral tablet 1 tablet, By Mouth, Daily, 0 Refills, Maintenance, 07/09/18 8:43:55 EST Start Date: 07/09/18 Status: Ordered [facility] SENIOR PROBIOTIC CAPSULE TAKE 2 CAPSULES BY MOUTH TWICE A DAY Start Date: 11/01/21 Status: Ordered [facility] Senior Probiotic Capsule [facility] Senior Probiotic Capsule, See Instructions, # [...] mL, 5 Refills, 03/02/22 8:08:00 EDT, [facility]/pharmacy #[id number], 155, cm, 02/23/22 8:04:00 [...] Soft Stop, 03/27/23 18:43:00 EDT, Tablet, [facility]/pharmacy #[id number], Partial fill upon patient request if the prescription is for a schedule II opioid... Start Date: 03/27/23 Status: Ordered fluconazole 150 mg oral tablet 1 tablet = 150 mg, By Mouth, Every week, # 4 tablet, 1 Refills, Soft Stop, 05/26/22 8:59:00 EDT, Tablet, [facility]/pharmacy #[id number], Partial fill upon patient [...] Maintenance,02/15/23 7:44:00 EDT, Route to Pharmacy Electronically, [facility], Partial fill upon patient request if the prescription is for... Start Date: 02/15/23 Stop Date: 11/12/23 Status: Ordered Juzo Compression Hose Juzo Compression Hose, See Instructions, # 2 each, Refills 2, Tot. Refills 2, Maintenance, Juzo Compression Hose 2 pairs vtnty-fgn-oiij Soft Knee FF Petite 20-30 mmHg Silicone, Black Stock Code [id number] I I I Part #[id number] Size I I I SKU... Start Date: 03/12/23 Status: Ordered levothyroxine 0.088 mg oral tablet 1 tablet = 88 mcg, By Mouth, Daily, # 90 tablet, 3 Refills, Maintenance, 03/15/23 17:17:00 EDT, Tablet, [facility], Partial fill upon patient request if the prescription is fora schedule II opioid drug., 155, cm, 03/15/23 17:11... Start Date: 03/15/23 Status: Ordered lisinopril 5 mg oral tablet 1, tablet, By Mouth, Daily, # 90 tablet, Refills 3, Tot. Refills 3, Maintenance, 03/15/23 17:16:00 EDT, Route to Pharmacy Electronically, [facility], 155, cm, 03/15/23 17:11:00EDT, Height, 93.4, kg, 11/01/21 16:52:00 EDT, Dry W... Start Date: 03/15/23 Status: Ordered Mapap 500 mg oral capsule See Instructions, TAKE 2 CAPSULES BY MOUTH 4 TIMES A DAY NEEDED FOR PAIN, # 480 capsule, 0 Refills, Maintenance, 03/12/23 9:16:00 EDT, [facility]/pharmacy #[id number], 155, cm, 10/10/22 13:40:00 EST, Height, 93.4, kg, 11/01/21 16:52:00 EDT, Dry Weight Start Date: 03/12/23 Status: Ordered Power [place] Lift with [place] split-leg sling Power [place] Lift with [place] split-leg sling, See Instructions, # 1 each, [...] Refills, Maintenance, 12/11/22 17:34:00 EDT, Tablet, [facility]/pharmacy #[id number], Partial fill upon patient [...] Team Personnel Name: Juliann Rich RN Position: [facility] RN Member Role: Primary Care Nurse Name: Elsa Allen NP Position: Reference Physician Member Role: Primary Care Nurse Address: Address: [address] [place] [address] [address] [place] [address]- Name: Emma Mendoza RN Position: [facility] AMB Nurse Member Role: Primary Care Nurse Name: Juan Manuel LIM, Kristen Acosta Position: [facility] Physician - Primary Care Member Role: PCP Address: Address: [address] [place] [address]- Name: Komal Goodrich Position: [facility] Outreach Member Role: Lifetime Consulting Physician Name: Godfrey Cano Position: [facility] RN Member Role: Primary Care Nurse Name: Anette Miranda RN Position: [facility] Onco RN Member Role: Primary Care Nurse Care Team Related Persons Name: DIOMEDES WARNER Address: [address] [place] [address] Name: MOO HOWELL Address: [address] [place] [address] Name: MARLON GENTILE
--- OUTSIDE RECORDS SUMMARY | 2024-03-17 13:28 | XMS_ITS | Continuity of Care Document ---
Author Organization [facility] Address [address] [place] [address]- Care Team Providers Care Bone Char Puller Name Role Phone Juan Manuel LIM, Kristen Acosta Primary Care Physic juan alberto [facility] - [facility]/10/22 [facility] [address] [place] [address]- Allergies, Adverse Reactions, Alerts Substance Reaction Severity Status morphine hives, SOB Active penicillins hive Active Wellbutrin rash Active Reglan Active contrast media (iodine-based) itching throughout body Active Other Environmental Allergy mercury-fillings Active cannabis (Schedule I substance) itching/vomiting Active [...] vaccine, inactivated 04/26/09 Arnoldo rded SARS-CoV-2 mRNA (fcstdsc-uicg-druhw) vax 03/10/22 Recorded SARS-CoV-2 mRNA (mnsvivr-njvc-fesze) vax 10/04/21 Recorded SARS-CoV-2 (COVID-19) mRNA BNT-162b2 [...] tablet, 2 Refills, Maintenance, 02/28/22 8:12:00EDT, Tablet, [facility]/pharmacy #[id number], Partial fill upon patient request if the prescription is for a schedule II opioid drug., 155, cm, 02/23/22 8:04:00 EDT... Start Date: 02/28/22 Status: Ordered baclofen 20 mg oral tablet 20 mg, 1, tablet, By Mouth, 3 times a day, # 270 tablet, Refills 2, Tot. Refills 2, Maintenance, 12/09/22 12:44:00 EDT, Route to Pharmacy Electronically, [facility], Partial fill upon patient request if the prescription is for a... Start Date: 12/09/22 Stop Date: 09/05/23 Status: Ordered baclofen 20 mg oral tablet 20 mg, 1, tablet, By Mouth, 3 times a day, for 90 days, # 270 tablet, Refills 2, Tot. Refills 2, Hard Stop 12/09/22 12:44:00 EDT, 03/14/22 12:44:00 EDT, Route to Pharmacy Electronically, [facility]/pharmacy#[id number], Partial fill upon patient request if [...] 01/06/23 14:02:00 EDT, 01/11/22 14:02:00 EDT, Tablet, [facility] [...] 3 Refills, Maintenance, 04/02/22 21:13:00 EDT, Gel, [facility] Start Date: 04/02/22 Status: Ordered electric [place] [...] 01/02/22 9:03:00 EDT, Route to Pharmacy Electronically, [facility], Partial fill upon patient request [...] 01/11/22 13:45:00 EDT, [facility] Start Date: 01/11/22 Status: Ordered gabapentin 300 mg oral capsule 300 mg, 1, capsule, By Mouth, 3 times a day, # 270 capsule, Refills 2, Tot. Refills 2, Maintenance,05/21/22 7:44:00 EDT, Route to Pharmacy Electronically, [facility], Partial fill upon patient request if the prescription is for... Start Date: 05/21/22 Stop Date: 02/15/23 Status: Ordered gabapentin 300 mg oral capsule 300 mg, 1, capsule, By Mouth, 3 times a day, for 30 days, # 90 capsule, Refills 2, Tot. Refills 2, Hard Stop 05/21/22 7:44:00 EDT, 02/20/22 7:44:00 EDT, [id number] Partial fill upon patient request if the pre... Start Date: 02/20/22 Stop Date: 05/21/22 Status: Ordered Juzo Compression Hose Juzo Compression Hose, See Instructions, # 2 each, Refills 2, Tot. Refills 2, Maintenance, 20-30mmghg FF Petite (short),Jrxcs-fzi-fwex, soft knee, black silicone Stock code [id number] Part #[id number], Size III. [facility] [id number], 12/07/21 11:32:00 EDT,... Start Date: 12/07/21 Status: Ordered levothyroxine 0.088 mg oral tablet 1 tablet = 88 mcg, By Mouth, Daily, # 90 tablet, 3 Refills, Maintenance, 03/31/22 13:45:00 EDT, Tablet, [facility], Partial fill upon patient request if the prescription is fora schedule II opioid drug., 155, cm, 03/14/22 11:11... Start Date: 03/31/22 Status: Ordered lisinopril 5 mg oral tablet 5 mg, 1, tablet, By Mouth, Daily, # 90 tablet, Refills 3, Tot. Refills 3, Maintenance, 02/24/22 15:53:00 EDT, [id number] Partial fill upon patient request if [...] 03/12/22 Status: Ordered Power [place] Lift with [place] split-leg sling Power [place] Lift with [place] split-leg sling, See Instructions, # 1 each, [...] tablet, 3 Refills, Maintenance, 02/01/22 12:42:00EDT, Tablet, [facility], Partial fill upon patient request [...] Juan Manuel LIM, Kristen Acosta Address: Address: [address] [place] [address]
--- OUTSIDE RECORDS SUMMARY | 2024-03-17 13:28 | XMS_ITS | Continuity of Care Document ---
Author Organization [employer] Address [address] [place] [address]- Care Team Providers Care Guest Attendant Name Role Phone Juan Manuel LIM, Kristen Acosta Primary Care Physic juan alberto Encounter [facility] Date(s): 03/15/23 - 03/22/23 [facility] [address] [place] [address]- [place] Encounter Diagnosis Bilateral leg edema(Discharge Diagnosis) - 03/15/23 Hypertension(Discharge Diagnosis) - 03/15/23 Hypothyroidism(Discharge Diagnosis) - 03/15/23 Multiple sclerosis(Discharge Diagnosis) - 03/15/23 Attending Physician: Juan Manuel LIM, Kristen Acosta Allergies, Adverse Reactions, Alerts Substance Reaction Severity Status morphine hives, SOB Active Wellbutrin rash Active contrast media (iodine-based) itching throughout body Active penicillins hive Active Reglan Active cannabis (Schedule I substance) itching/vomiting Active Other Environmental Allergy mercury-fillings Active Immunizations Given and Recorded Vaccine Date Status Refusal Reason pneumococcal 20-valent conjugate vaccine 05/30/22 Recorded [id number] 12y+ bivalent booster vax 05/12/22 Recorded influenza [...] vaccine, inactivated 04/26/09 Arnoldo rded SARS-CoV-2 mRNA (qnaaqlf-ulrb-fzfsk) vax 03/10/22 Recorded SARS-CoV-2 mRNA (jsaapiu-fvou-zeovw) vax 10/04/21 Recorded SARS-CoV-2 (COVID-19) mRNA BNT-162b2 [...] 1 Refills, Maintenance, 12/11/22 17:34:00 EDT, Tablet, [facility]/pharmacy #[id number], Partial fill upon patient request if the prescription is for a schedule II opioid drug., 155, cm, 10/10/22 13:40:00 E... Start Date: 12/11/22 Status: Ordered baclofen 20 mg oral tablet 20 mg, 1, tablet, By Mouth, 3 times a day, # 270 tablet, Refills 2, Tot. Refills 2, Maintenance, 12/09/22 12:44:00 EDT, Route to Pharmacy Electronically, [facility], Partial fill upon patient request if the prescription is for a... Start Date: 12/09/22 Stop Date: 09/05/23 Status: Ordered bifidobacterium-lactobacillus oral tablet 2 tablet, By Mouth, 2 times a day, [facility] Brand please ([facility]), # 360 tablet, 3 Refills, Maintenance, 08/11/21 17:02:00 EST, Tablet, [facility]/pharmacy #[id number], Partial fill upon patient request if the prescription is for a schedule II opioid drug., 2... Start Date: 08/11/21 Stop Date: 08/06/22 Status: Ordered calcium carbonate 600 mg oral tablet 1 tablet = 600 mg, By Mouth, 2 times a day, # 180 tablet, 2 Refills, Maintenance, 01/06/23 14:02:00EDT, Tablet, [facility]/pharmacy #[id number], Partial fill upon patient request if the prescription is for a schedule II opioid drug., 155, cm, 02/23/22 8:04:00 EDT... Start Date: 01/06/23 Stop Date: 10/03/23 Status: Ordered Centrum Silver Ultra Women's oral tablet 1 tablet, By Mouth, Daily, 0 Refills, Maintenance, 07/09/18 8:43:55 EST Start Date: 07/09/18 Status: Ordered [facility] SENIOR PROBIOTIC CAPSULE TAKE 2 CAPSULES BY MOUTH TWICE A DAY Start Date: 11/01/21 Status: Ordered [facility] Senior Probiotic Capsule [facility] Senior Probiotic Capsule, See Instructions, # [...] mL, 5 Refills, 03/02/22 8:08:00 EDT, [facility]/pharmacy #[id number], 155, cm, 02/23/22 8:04:00 EDT, [...] Refills, Soft Stop, 05/26/22 8:59:00 EDT, Tablet, [facility]/pharmacy #[id number], Partial fill upon patient request [...] Maintenance,02/15/23 7:44:00 EDT, Route to Pharmacy Electronically, [facility], Partial fill upon patient request if the prescription is for... Start Date: 02/15/23 Stop Date: 11/12/23 Status: Ordered Juzo Compression Hose Juzo Compression Hose, See Instructions, # 2 each, Refills 2, Tot. Refills 2, Maintenance, Juzo Compression Hose 2 pairs [id number] Soft Knee FF Petite 20-30 mmHg Silicone, Black Stock Code [id number] I I I Part #[id number] Size I I I SKU... Start Date: 03/12/23 Status: Ordered levothyroxine 0.088 mg oral tablet 1 tablet = 88 mcg, By Mouth, Daily, # 90 tablet, 3 Refills, Maintenance, 03/15/23 17:17:00 EDT, Tablet, [facility], Partial fill upon patient request if the prescription is fora schedule II opioid drug., 155, cm, 03/15/23 17:11... Start Date: 03/15/23 Status: Ordered lisinopril 5 mg oral tablet 1, tablet, By Mouth, Daily, # 90 tablet, Refills 3, Tot. Refills 3, Maintenance, 03/15/23 17:16:00 EDT, Route to Pharmacy Electronically, [facility], 155, cm, 03/15/23 17:11:00EDT, Height, 93.4, kg, 11/01/21 16:52:00 EDT, Dry W... Start Date: 03/15/23 Status: Ordered Mapap 500 mg oral capsule See Instructions, TAKE 2 CAPSULES BY MOUTH 4 TIMES A DAY NEEDED FOR PAIN, # 480 capsule, 0 Refills, Maintenance, 03/12/23 9:16:00 EDT, [facility]/pharmacy #[id number], 155, cm, 10/10/22 13:40:00 EST, Height, 93.4, kg, 11/01/21 16:52:00 EDT, Dry Weight Start Date: 03/12/23 Status: Ordered Power [place] Lift with [place] split-leg sling Power [place] Lift with [place] split-leg sling, See Instructions, # 1 each, [...] 5 Refills, Maintenance, 12/11/22 17:34:00 EDT, Tablet, [facility]/pharmacy #[id number], Partial fill upon patient request [...] 90 capsule, 1 Refills, 12/11/22 15:16:00 EDT, [facility]/pharmacy #[id number], 155, cm, 10/10/22 13:40:00 EST, Height, [...] discharge Confirmed Active Vaginal odor Confirmed Active Diagnosis Diagnosis Type Effective Dates Health Status Clinical Service Informant Bilateral leg edema Discharge Diagnosis 03/15/23 Hypertension Discharge Diagnosis 03/15/23 Hypothyroidism Discharge Diagnosis 03/15/23 Multiple sclerosis Discharge Diagnosis 03/15/23 Vital Signs Most recent to oldest [Reference Range]: 1 2 Height 155 cm (03/15/23 5:11 PM) 155 cm (03/15/23 3:39 PM) Blood Pressure [90-138/55-84 mm Hg] 128/ 84mm Hg (03/15/23 5:11 PM) Social History Social History Type Response Smoking Status Never (less than 100 in lifetime) entered on: 10/31/21 Sex Note * Waleska Clark: PERFORM, SIGN, VERIFY Event Display: Patient Education/Instruction Authored Date: [id number] [facility] Clinical Summary Name CHANEL ACOSTA Age 68 Years 1955 PCP Juan Manuel LIM, Kristen Acosta PCP Visit Date 03/15/2023 15:38:00 Additional Instructions: Scheduled Appointments?? Future Appointments ?No Future Appointments Scheduled Follow-Up Instructions ?? Diagnosis Localized edema; Hypothyroidism, unspecified; Essential (primary) hypertension; Multiple sclerosis Medications: Please continue your medications until treatment is completed or stopped by your provider. Discuss any questions related to medications with your provider. Medications to Continue with No Changes [facility], [address] [place] [address] KENNA Mello [phone], [phone] Levothyroxine (levothyroxine 0.088 mg oral tablet) 1 tab(s) Oral Daily. Refills: 3. Next Dose: Lisinopril (lisinopril 5 mg oral tablet) 1 tab(s) Oral Daily. Refills: 3. Next Dose: These medications were not printed or sent to your pharmacy Acetaminophen (Mapap 500 mg oral capsule) TAKE 2 CAPSULES BY MOUTH 4 TIMES A DAY NEEDED FOR PAIN. Refills: 0. Next Dose: Ascorbic Acid (ascorbic acid 1000 mg oral tablet) 1 tab(s) Oral twice a day. Refills: 1. Next Dose: Baclofen (baclofen 20 mg oral tablet) 1 tab(s) Oral 3 times a day for 90 Days. Refills: 2. Next Dose: bifidobacterium-lactobacillus (bifidobacterium-lactobacillus oral tablet) 2 tab(s) Oral twice a dayfor 90 Days. [facility] Brand please ([facility]). Refills: 3. Next Dose: Calcium Carbonate (calcium carbonate 600 mg oral tablet) 1 tab(s) Oral twice a day for 90 Days. Refills: 2. Next Dose: Cholecalciferol (Vitamin D3 2000 intl units oral capsule) 1 capsule Oral Daily. Refills: 1. Next Dose: Docusate (Enemeez Mini 283 mg rectal enema) USE RECTALLY EVERY DAY NEEDED FOR CONSTIPATION. Refills: 5. Next Dose: Durable Medical Equipment ([facility] SENIOR PROBIOTIC CAPSULE) TAKE 2 CAPSULES BY MOUTH TWICE A DAY. Next Dose: Durable Medical Equipment (Fully powered [place]ia lift with split leg sling type) dx: Multiple sclerosis; Paraplegia, Neurogenic bladder; Morbid obesity. Refills: 0. Next Dose: Durable Medical Equipment (Juzo Compression Hose) Juzo Compression Hose 2 pairs uzvox-mds-ywvo Soft Knee FF Petite 20-30 mmHg Silicone, Black Stock Code [id number] I I I Part #[id number] Size I I I SKU # [id number]. Refills: 2. Next Dose: Durable Medical Equipment (Power [place] Lift with [place] split-leg sling) Dx: Multiple Sclerosis induced Paraplegia Length of time needed: indefinite Purpose: Transfer to/fr hosp bed to wheelchair, commode, shower chair. Refills: 0. Next Dose: Durable Medical Equipment (Repair for hospital bed) Dx. Multiple sclerosis G35.9. Refills: 0. Next Dose: Durable Medical Equipment (RIGHT RESTING HAND SPLINT) DX: FLEXION CONTRACTURE OF FINGERS D/T MS. Refills: 0. Next Dose: Durable Medical Equipment (Z-flex boot LLE Dx: left foot drop, MS, immobility) wear as directed. Refills: 1. Next Dose: Estradiol Topical (estradiol 0.1 mg/g vaginal cream) Next Dose: Fluconazole (fluconazole 150 mg oral tablet) 1 tab(s) Oral every week. Refills: 1. Next Dose: fosfomycin (fosfomycin 3 g oral granule for reconstitution) 1 Each Oral once. Next Dose: Furosemide (furosemide 40 mg oral tablet) 1 tab(s) Oral Daily. Refills: 1. Next Dose: Gabapentin (gabapentin 300 mg oral capsule) 1 capsule Oral 3 times a day for 90 Days. Refills: 2. Next Dose: Miscellaneous Rx ([facility] Senior Probiotic Capsule) TAKE 2 CAPSULES BY MOUTH TWICE A DAY. Refills: 5. Next Dose: Miscellaneous Rx (electric virginia lift split leg sling type) Pt height 153cm Pt weight 82kg needs for toileting hygeine. Refills: 0. Next Dose: Modafinil (Provigil 200 mg oral tablet) 1 tab(s) Oral twice a day for 28 Days. takes in am and lunchtime brand name only - dispense as written. Refills: 5. Next Dose: Modafinil (Provigil 200 mg oral tablet) 1 tab(s) Oral twice a day for 28 Days. takes in am and lunchtime brand name only - dispense as written. Refills: 5. Next Dose: Multivitamin With Minerals (Centrum Silver Ultra Women's oral tablet) 1 tab(s) Oral Daily. Next Dose: rivaroxaban (Xarelto 20 mg oral tablet) TAKE 1 TABLET DAILY AT SUPPER. Refills: 3. Next Dose: turmeric (Turmeric) 750 Milligram Oral twice a day. Next Dose: Allergy Info:?? contrast media (iodine-based); Other Environmental Allergy; cannabis (Schedule I substance); Reglan; Wellbutrin; penicillins; morphine Medications Given This Visit Future Orders ?No future orders Vital Signs Height 155 cm Weight BMI Blood Pressure 128 mm Hg/84 mm Hg Temperature Pulse Rate Respiratory Rate 02 Sat Mode of Delivery / You can now view a summary of your hospital visit from the comfort of your home through a free online portal called [employer]. [employer] is a website that allows you to securely view your medical information including discharge summary, medications and follow-up visits. ??You can alsosend a secure electronic message to your doctor???s office to request appointments, renew medications or just ask a question. You can enroll at [email or web address] or register during your next office visit. Disclaimer:?? The information provided is of a general nature and is intended to be used in conjunction with the recommendations and advice of your health care practitioner. ??Every effort has been made to ensure that the information provided is accurate and complete at the time it is provided to you however, as your needs change, or, as new ??information becomes available, different or additional instructions may be required. If you have questions, please consult with your primary care provider or pharmacist, as appropriate. ??This information is not intended to serve as substitution for assessment and evaluation by a qualified health care provider. If you do not have a primary care provider, you may find a [facility] provider by calling [facility] Link at [phone]. For information about the plan of care including goals and instructions for your diagnosis, please see the patient education orders section of this document. Patient Education Materials?? The content of this educational material or handout may have been modified, supplemented, or adapted from its original content and format to support your individualized medical care. Patient Care team information Care Team Personnel Name: Juliann Rich RN Position: [facility] RN Member Role: Primary Care Nurse Name: Alejandro CENTENO, Elsa Peterson Position: Reference Physician Member Role: Primary Care Nurse Address: Address: [address] [place] [address] [address] [place] [address]- [place] Name: Emma Mendoza RN Position: [facility] Nurse Member Role: Primary Care Nurse Name: Juan Manuel LIM, Kristen Acosta Position: [facility] Physician - Primary Care Member Role: PCP Address: Address: [address] [place] [id number]- Name: Komal Goodrich Position: [facility] Outreach Member Role: Lifetime Consulting Physician Name: Godfrey Cano Position: [facility] RN Member Role: Primary Care Nurse Name: Anette Miranda RN Position: [facility] Onco RN Member Role: Primary Care Nurse Care Team Related Persons Name: DIOMEDES WARNER Address: home [address] [place] [address] Name: MOO HOWELL Address: home [address] [place] [address] Name: MARLON GENTILE
--- OUTSIDE RECORDS SUMMARY | 2024-03-17 13:28 | XMS_ITS | Continuity of Care Document ---
Author Organization [facility] Address [address] [place] [address]- Care Team Providers Care Expander Name Role Phone Juan Manuel LIM, Kristen Acosta Primary Care Physic juan alberto Encounter [facility] Date(s): 05/18/22 - 06/17/22 [facility] [address] [place] [address] [[email or web address]] Attending Physician: Admtr, [id number] Admitting Physician: Admtr, [id number] Referring Physician: Admtr, Ar8 Allergies, Adverse Reactions, Alerts Substance Reaction Severity Status morphine hives, SOB Active penicillins hive Active Wellbutrin rash Active Reglan Active cannabis (Schedule I substance) itching/vomiting Active Other Environmental Allergy mercury-fillings Active contrast media (iodine-based) itching throughout body Active Immunizations Given and Recorded Vaccine Date Status Refusal Reason pneumococcal 20-valent conjugate vaccine 05/30/22 Recorded [id number] 12y+ bivalent booster vax 05/12/22 Recorded influenza [...] vaccine, inactivated 04/26/09 Arnoldo rded SARS-CoV-2 mRNA (cbolimj-rblf-ixfil) vax 03/10/22 Recorded SARS-CoV-2 mRNA (dnjaszm-vwmq-gtsrs) vax 10/04/21 Recorded SARS-CoV-2 (COVID-19) mRNA BNT-162b2 [...] tablet, 2 Refills, Maintenance, 02/28/22 8:12:00EDT, Tablet, [facility]/pharmacy #[id number], Partial fill upon patient request if the prescription is for a schedule II opioid drug., 155, cm, 02/23/22 8:04:00 EDT... Start Date: 02/28/22 Status: Ordered baclofen 20 mg oral tablet 20 mg, 1, tablet, By Mouth, 3 times a day, # 270 tablet, Refills 2, Tot. Refills 2, Maintenance, 12/09/22 12:44:00 EDT, Route to Pharmacy Electronically, [facility], Partial fill upon patient request if the prescription is for a... Start Date: 12/09/22 Stop Date: 09/05/23 Status: Ordered baclofen 20 mg oral tablet 20 mg, 1, tablet, By Mouth, 3 times a day, for 90 days, # 270 tablet, Refills 2, Tot. Refills 2, Hard Stop 12/09/22 12:44:00 EDT, 03/14/22 12:44:00 EDT, [id number] Partial fill upon patient request if [...] tablet, 2 Refills, Maintenance, 01/06/23 14:02:00EDT, Tablet, [id number] Partial fill upon patient request [...] 01/06/23 14:02:00 EDT, 01/11/22 14:02:00 EDT, Tablet, [facility], Partial fill upon patient request [...] 07/25/22 8:59:00 EST, 05/26/22 8:59:00 EDT, Cream, [facility]/pharmacy #[id number], Partial fill upon patient request if the prescription is for a schedule II opioid drug., 1 applicat... Start Date: 05/26/22 Stop Date: 07/25/22 Status: Ordered [facility] SENIOR [...] 3 Refills, Maintenance, 04/02/22 21:13:00 EDT, Gel, [facility] Start Date: 04/02/22 Status: [...] 01/11/22 13:45:00 EDT, Route to Pharmacy Electronically, [facility]... Start Date: 01/11/22 Status: Ordered gabapentin 300 mg oral capsule 300 mg, 1, capsule, By Mouth, 3 times a day, # 270 capsule, Refills 2, Tot. Refills 2, Maintenance,05/21/22 7:44:00 EDT, Route to Pharmacy Electronically, [facility], Partial fill upon patient request if the prescription is for... Start Date: 05/21/22 Stop Date: 02/15/23 Status: Ordered Juzo Compression Hose Juzo Compression Hose, See Instructions, # 2 each, Refills 2, Tot. Refills 2, Maintenance, 20-30mmghg FF Petite (short),Wfodx-hlg-zbqw, soft knee, black silicone Stock code [id number] Part #[id number], Size III. [facility] [id number], 12/07/21 11:32:00 EDT,... Start Date: 12/07/21 Status: Ordered levothyroxine 0.088 mg oral tablet 1 tablet = 88 mcg, By Mouth, Daily, # 90 tablet, 3 Refills, Maintenance, 03/31/22 13:45:00 EDT, Tablet, [facility], Partial fill upon patient request if the prescription is fora schedule II opioid drug., 155, cm, 03/14/22 11:11... Start Date: 03/31/22 Status: Ordered lisinopril 5 mg oral tablet 5 mg, 1, tablet, By Mouth, Daily, # 90 tablet, Refills 3, Tot. Refills 3, Maintenance, 02/24/22 15:53:00 EDT, Route to Pharmacy Electronically, [facility]/pharmacy #[id number], Partial fill upon patient request if the prescription is for a schedule II opioid drug.... Start Date: 02/24/22 Status: Ordered Mapap 500 mg oral capsule See Instructions, TAKE 2 CAPSULES BY MOUTH 4 TIMES A DAY NEEDED FOR PAIN, # 480 capsule, 3 Refills, Maintenance, 06/04/22 16:03:00 EDT, [id number], 155, cm, 05/25/22 13:44:00 EDT, Height, 93.4, kg, 11/01/21 16:52:00 EDT, Dry Weight Start Date: 06/04/22 Status: Ordered Potassium Chloride (Eqv-K-Tab) 20 mEq oral tablet, extended release 1 tablet = 20 mEq, By Mouth, Daily, for low potassium, # 10 tablet, 0 Refills, Maintenance, 03/02/22 19:14:00 EDT, [facility]/pharmacy #[id number], Partial fill upon patient request if the prescription is for a schedule II opioid drug., 155, cm, 02/23/22 8:04:00 E... Start Date: 03/02/22 Stop Date: 03/12/22 Status: Ordered Power [place] Lift with [place] split-leg sling Power [place] Lift with [place] split-leg sling, See Instructions, # 1 each, [...] 3 Refills, Maintenance, 02/28/22 8:12:00 EDT, Tablet, [facility]/pharmacy #[id number], [...] 90 capsule, 2 Refills, 02/28/22 8:13:00 EDT, [facility]/pharmacy #[id number], 155,cm, 02/23/22 8:04:00 EDT, Height, 93.4, kg, 11/01/21 16:52:00 EDT, Dry Weight Start Date: 02/28/22 Status: Ordered Xarelto 20 mg oral tablet 1 tablet = 20 mg, By Mouth, Daily at supper, # 90 tablet, 3 Refills, Maintenance, 02/01/22 12:42:00EDT, Tablet, [facility], Partial [...] Juan Manuel LIM, Kristen Acosta Address: Address: [address] [place], [place] [address] [[email or web address]]
--- OUTSIDE RECORDS SUMMARY | 2024-03-17 13:29 | XMS_ITS | Continuity of Care Document ---
Author Organization [facility] Address [address] [place] [address]- Care Team Providers Care Foreign Language Stenographer Name Role Phone Juan Manuel LIM, Kristen Acosta Primary Care Physic juan alberto [facility] Date[facility]): 08/[facility]22 - 09/20/22 [facility] [address] [place] [address]- Allergies, Adverse Reactions, Alerts Substance Reaction Severity Status morphine hives, SOB Active penicillins hive Active Wellbutrin rash Active Reglan Active cannabis (Schedule I substance) itching/vomiting Active Other Environmental Allergy mercury-fillings Active contrast media (iodine-based) itching throughout body Active Immunizations Given and Recorded Vaccine Date Status Refusal Reason pneumococcal 20-valent conjugate vaccine 05/30/22 Recorded [id number] 12y+ bivalent booster vax 05/12/22 Recorded influenza [...] vaccine, inactivated 04/26/09 Arnoldo rded SARS-CoV-2 mRNA (mgcbezx-cjzf-stwhi) vax 03/10/22 Recorded SARS-CoV-2 mRNA (iivigxz-acgv-xgbhy) vax 10/04/21 Recorded SARS-CoV-2 (COVID-19) mRNA BNT-162b2 [...] tablet, 0 Refills, Maintenance, 09/13/22 9:11:00EST, Tablet, [facility]/pharmacy #[id number], Partial fill upon patient request if the prescription is for a schedule II opioid drug., 155, cm, 07/12/22 14:10:00 ES... Start Date: 09/13/22 Status: Ordered baclofen 20 mg oral tablet 20 mg, 1, tablet, By Mouth, 3 times a day, # 270 tablet, Refills 2, Tot. Refills 2, Maintenance, 12/09/22 12:44:00 EDT, Route to Pharmacy Electronically, [facility], Partial fill upon patient request if the prescription is for a... Start Date: 12/09/22 Stop Date: 09/05/23 Status: Ordered baclofen 20 mg oral tablet 20 mg, 1, tablet, By Mouth, 3 times a day, for 90 days, # 270 tablet, Refills 2, Tot. Refills 2, Hard Stop 12/09/22 12:44:00 EDT, 03/14/22 12:44:00 EDT, [id number] Partial fill upon patient request if the pre... Start Date: 03/14/22 Stop Date: 12/09/22 Status: Ordered bifidobacterium-lactobacillus oral tablet 2 tablet, By Mouth, 2 times a day, [facility] Brand please (Senior Wellness), # 360 tablet, 3 Refills, Maintenance, 08/11/21 17:02:00 EST, Tablet, [facility]/pharmacy #[id number], Partial fill upon patient request if the prescription is for a schedule II opioid drug., 2... Start Date: 08/11/21 Stop Date: 08/06/22 Status: Ordered calcium carbonate 600 mg oral tablet 1 tablet = 600 mg, By Mouth, 2 times a day, # 180 tablet, 2 Refills, Maintenance, 01/06/23 14:02:00EDT, Tablet, [facility]/pharmacy #[id number], Partial fill upon [...] 14:02:00 EDT, 01/11/22 14:02:00 EDT, Tablet, [facility], Partial fill upon patient request if the prescription is for a schedul... Start Date: 01/11/22 Stop Date: 01/06/23 Status: Ordered Centrum Silver Ultra Women's oral tablet 1 tablet, By Mouth, Daily, 0 Refills, Maintenance, 07/09/18 8:43:55 EST Start Date: 07/09/18 Status: Ordered [facility] SENIOR PROBIOTIC CAPSULE TAKE 2 CAPSULES BY MOUTH TWICE A DAY Start Date: 11/01/21 Status: Ordered [facility] Senior Probiotic Capsule [facility] Senior Probiotic Capsule, See [...] 3 Refills, Maintenance, 04/02/22 21:13:00 EDT, Gel, [facility] Start Date: [...] 450 mL, 5 Refills, 03/02/22 8:08:00 EDT, [facility]/pharmacy #[id number], 155, cm, 02/23/22 [...] Refills, Soft Stop, 05/26/22 8:59:00 EDT, Tablet, [facility]/pharmacy #[id number], Partial fill upon [...] 9:03:00 EDT, [facility] [...] 01/11/22 13:45:00 EDT, [facility] Start Date: 01/11/22 Status: Ordered gabapentin 300 mg oral capsule 300 mg, 1, capsule, By Mouth, 3 times a day, for 90 days, # 270 capsule, Refills 2, Tot. Refills 2,Hard Stop 02/15/23 7:44:00 EDT, 05/21/22 7:44:00 EDT, Route to Pharmacy Electronically, [facility], Partial fill upon patient re... Start [...] Tot. Refills 2, Maintenance, 20-30mmghg FF Petite (short),Zjsig-xou-kuzs, soft knee, black silicone Stock code [id number] Part #50079, Size III. [facility] [id number], 12/07/21 11:32:00 EDT,... Start Date: 12/07/21 Status: Ordered levothyroxine 0.088 mg oral tablet 1 tablet = 88 mcg, By Mouth, Daily, # 90 tablet, 1 Refills, Maintenance, 09/08/22 14:26:00 EST, Tablet, [facility], Partial fill upon patient request if the prescription is fora schedule II opioid drug., 155, cm, 07/12/22 14:10... Start Date: 09/08/22 Status: Ordered lisinopril 5 mg oral tablet 5 mg, 1, tablet, By Mouth, Daily, # 90 tablet, Refills 3, Tot. Refills 3, Maintenance, 02/24/22 15:53:00 EDT, Route to Pharmacy Electronically, [facility]/pharmacy #[id number], Partial fill upon patient request if the prescription is for a schedule II opioid drug.... Start Date: 02/24/22 Status: Ordered Mapap 500 mg oral capsule See Instructions, TAKE 2 CAPSULES BY MOUTH 4 TIMES A DAY NEEDED FOR PAIN, # 480 capsule, 3 Refills, Maintenance, 06/04/22 16:03:00 EDT, [facility] STORE [id number], 155, cm, 05/25/22 13:44:00 EDT, Height, 93.4, kg, 11/01/21 16:52:00 EDT, Dry Weight Start Date: 06/04/22 Status: Ordered Potassium Chloride (Eqv-K-Tab) 20 mEq oral tablet, extended release 1 tablet = 20 mEq, By Mouth, Daily, for low potassium, # 10 tablet, 0 Refills, Maintenance, 03/02/22 19:14:00 EDT, [facility]/pharmacy #[id number], Partial fill upon patient request if the prescription is for a schedule II opioid drug., 155, cm, 02/23/22 8:04:00 E... Start Date: 03/02/22 Stop Date: 03/12/22 Status: Ordered Power [place] Lift with [place] split-leg sling Power [place] Lift with [place] split-leg sling, See Instructions, # 1 each, [...] 18 tablet, 0Refills, Maintenance, 08/24/22 17:06:00 EST, [facility]/pharmacy #[id number], Partial fill upon [...] 17:46:00 EDT, 07/12/22 17:46:00 EST, Tablet[id number] fill upon pa... Start Date: 07/12/22 Stop Date: 11/01/22 Status: Ordered Provigil 200 mg oral tablet 1 tablet = 200 mg, By Mouth, 2 times a day, takes in am and lunchtime brand name only - dispense aswritten, # 56 tablet, 0 Refills, Maintenance, 09/07/22 14:36:00 EST, Tablet, [facility]/pharmacy #[id number], Partial fill upon [...] 10/25/22 18:25:00 EDT, 07/05/22 18:25:00 EST, Tablet, [facility], Parti... Start Date: 07/05/22 Stop Date: [...] 90 capsule, 2 Refills, 02/28/22 8:13:00 EDT, [facility]/pharmacy #[id number], 155,cm, 02/23/22 8:04:00 EDT, Height, 93.4, kg, 11/01/21 16:52:00 EDT, Dry Weight Start Date: 02/28/22 Status: Ordered Xarelto 20 mg oral tablet 1 tablet = 20 mg, By Mouth, Daily at supper, # 90 tablet, 3 Refills, Maintenance, 02/01/22 12:42:00EDT, Tablet, [facility], Partial fill upon patient request if [...] Personnel Name: Juliann Rich RN Position: [facility] RN Member Role: Primary Care Nurse Name: Elsa Allen NP Position: Reference Physician Member Role: Primary Care Nurse Address: Address: [address] [place] [address] [address] [place] [address]- [place] Name: Emma Mendoza RN Position: [facility] RN Member Role: Primary Care Nurse Name: Kristen Zambrano MD Position: [facility] Primary Care Physician Member Role: PCP Address: Address: [address] [place] [id number]- Name: Jade Medina Position: S RN Member Role: Primary Care Nurse Name: Komal Goodrich Position: [facility] Outreach Member Role: Lifetime Consulting Physician Name: Godfrey Cano Position: [facility] RN Member Role: Primary Care Nurse Name: Anette Miranda RN Position: [facility] Onco RN Member Role: Primary Care Nurse Care Team Related Persons Name: DIOMEDES WARNER Address: home [address] [place] [address] Name: MOO HOWELL Address: home [address] [place] [address] Name: MARLON GENTILE
--- OUTSIDE RECORDS SUMMARY | 2024-03-17 13:29 | XMS_ITS | Continuity of Care Document ---
Author Organization [facility] Address [address] [place] [address]- Care Team Providers Care E Commerce Specialist Name Role Phone Juan Manuel LIM, Kristen Acosta Primary Care Physic juan alberto [facility]counter [facility] Date[facility]s): 08/21/22 - 09/20/22 [facility] [address] [place] [address]- Allergies, Adverse Reactions, Alerts Substance Reaction Severity Status morphine hives, SOB Active penicillins hive Active Wellbutrin rash Active Reglan Active cannabis (Schedule I substance) itching/vomiting Active Other Environmental Allergy mercury-fillings Active contrast media (iodine-based) itching throughout body Active Immunizations Given and Recorded Vaccine Date Status Refusal Reason pneumococcal 20-valent conjugate vaccine 05/30/22 Recorded [id number] 12y+ bivalent booster vax 05/12/22 Recorded influenza [...] vaccine, inactivated 04/26/09 Arnoldo rded SARS-CoV-2 mRNA (exmusub-eddd-ahnnp) vax 03/10/22 Recorded SARS-CoV-2 mRNA (aaglyrm-sxqp-phomb) vax 10/04/21 Recorded SARS-CoV-2 (COVID-19) mRNA BNT-162b2 [...] tablet, 0 Refills, Maintenance, 09/13/22 9:11:00EST, Tablet, [facility]/pharmacy #[id number], Partial fill upon patient request if the prescription is for a schedule II opioid drug., 155, cm, 07/12/22 14:10:00 ES... Start Date: 09/13/22 Status: Ordered baclofen 20 mg oral tablet 20 mg, 1, tablet, By Mouth, 3 times a day, # 270 tablet, Refills 2, Tot. Refills 2, Maintenance, 12/09/22 12:44:00 EDT, Route to Pharmacy Electronically, [facility], Partial fill upon patient request if the prescription is for a... Start Date: 12/09/22 Stop Date: 09/05/23 Status: Ordered baclofen 20 mg oral tablet 20 mg, 1, tablet, By Mouth, 3 times a day, for 90 days, # 270 tablet, Refills 2, Tot. Refills 2, Hard Stop 12/09/22 12:44:00 EDT, 03/14/22 12:44:00 EDT, [id number] Partial fill upon patient request if the pre... Start Date: 03/14/22 Stop Date: 12/09/22 Status: Ordered bifidobacterium-lactobacillus oral tablet 2 tablet, By Mouth, 2 times a day, [facility] Brand please (Senior Wellness), # 360 tablet, 3 Refills, Maintenance, 08/11/21 17:02:00 EST, Tablet, [facility]/pharmacy #[id number], Partial fill upon patient request if the prescription is for a schedule II opioid drug., 2... Start Date: 08/11/21 Stop Date: 08/06/22 Status: Ordered calcium carbonate 600 mg oral tablet 1 tablet = 600 mg, By Mouth, 2 times a day, # 180 tablet, 2 Refills, Maintenance, 01/06/23 14:02:00EDT, Tablet, [facility]/pharmacy #[id number], Partial fill upon [...] 01/06/23 14:02:00 EDT, 01/11/22 14:02:00 EDT, Tablet, [facility], Partial fill upon patient request if the prescription is for a schedul... Start Date: 01/11/22 Stop Date: 01/06/23 Status: Ordered Centrum Silver Ultra Women's oral tablet 1 tablet, By Mouth, Daily, 0 Refills, Maintenance, 07/09/18 8:43:55 EST Start Date: 07/09/18 Status: Ordered [facility] SENIOR PROBIOTIC CAPSULE TAKE 2 CAPSULES BY MOUTH TWICE A DAY Start Date: 11/01/21 Status: Ordered [facility] Senior Probiotic Capsule [facility] Senior Probiotic Capsule, See Instructions, # [...] 3 Refills, Maintenance, 04/02/22 21:13:00 EDT, Gel, [facility] Start Date: 04/02/22 Status: Ordered [...] 450 mL, 5 Refills, 03/02/22 8:08:00 EDT, [facility]/pharmacy #[id number], 155, cm, 02/23/22 8:04:00 EDT, [...] Refills, Soft Stop, 05/26/22 8:59:00 EDT, Tablet, [facility]/pharmacy #[id number], Partial fill upon [...] 01/02/22 9:03:00 EDT, [facility] to [facility] Electronically[facility] [...] 01/11/22 13:45:00 EDT, [facility] Start Date: 01/11/22 Status: Ordered gabapentin [...] Tot. Refills 2, Maintenance, 20-30mmghg FF Petite (short),Uviku-gma-dbmo, soft knee, black silicone Stock code [id number] Part #64121, Size III. [facility] [id number], 12/07/21 11:32:00 EDT,... Start Date: 12/07/21 Status: [...] 02/24/22 15:53:00 EDT, Route to Pharmacy Electronically, [facility]/pharmacy #[id number], Partial fill upon patient request if the prescription is for a schedule II opioid drug.... Start Date: 02/24/22 Status: Ordered Mapap 500 mg oral capsule See Instructions, TAKE 2 CAPSULES BY MOUTH 4 TIMES A DAY NEEDED FOR PAIN, # 480 capsule, 3 Refills, Maintenance, 06/04/22 16:03:00 EDT, [facility] STORE [id number], 155, cm, 05/25/22 13:44:00 EDT, Height, 93.4, kg, 11/01/21 16:52:00 EDT, Dry Weight Start Date: 06/04/22 Status: Ordered Potassium Chloride (Eqv-K-Tab) 20 mEq oral tablet, extended release 1 tablet = 20 mEq, By Mouth, Daily, for low potassium, # 10 tablet, 0 Refills, Maintenance, 03/02/22 19:14:00 EDT, [facility]/pharmacy #[id number], Partial fill upon patient request if the prescription is for a schedule II opioid drug., 155, cm, 02/23/22 8:04:00 E... Start Date: 03/02/22 Stop Date: 03/12/22 Status: Ordered Power [place] Lift with [place] split-leg sling Power [place] Lift with [place] split-leg sling, See Instructions, # 1 each, [...] 18 tablet, 0Refills, Maintenance, 08/24/22 17:06:00 EST, [facility]/pharmacy #[id number], Partial fill upon [...] 11/01/22 17:46:00 EDT, 07/12/22 17:46:00 EST, Tablet, [id number] fill upon pa... Start Date: 07/12/22 Stop Date: 11/01/22 Status: Ordered Provigil 200 mg oral tablet 1 tablet = 200 mg, By Mouth, 2 times a day, takes in am and lunchtime brand name only - dispense aswritten, # 56 tablet, 0 Refills, Maintenance, 09/07/22 14:36:00 EST, Tablet, [facility]/pharmacy #[id number], Partial fill upon [...] 10/25/22 18:25:00 EDT, 07/05/22 18:25:00 EST, Tablet, [facility], Parti... Start Date: 07/05/22 [...] 90 capsule, 2 Refills, 02/28/22 8:13:00 EDT, [facility]/pharmacy #[id number], 155,cm, 02/23/22 8:04:00 EDT, Height, 93.4, kg, 11/01/21 16:52:00 EDT, Dry Weight Start Date: 02/28/22 Status: Ordered Xarelto 20 mg oral tablet 1 tablet = 20 mg, By Mouth, Daily at supper, # 90 tablet, 3 Refills, Maintenance, 02/01/22 12:42:00EDT, Tablet, [facility], Partial fill upon patient request if [...] Team Personnel Name: Juliann Rich RN Position: [facility] RN Member Role: Primary Care Nurse Name: Elsa Allen NP Position: Reference Physician Member Role: Primary Care Nurse Address: Address: [address] [place] [address] [address] [place] [address]- [place] Name: Emma Mendoza RN Position: [facility] RN Member Role: Primary Care Nurse Name: Kristen Zambrano MD Position: [facility] Primary Care Physician Member Role: PCP Address: Address: [address] [place] [id number]- Name: Jade Medina Position: S RN Member Role: Primary Care Nurse Name: Komal Goodrich Position: [facility] Outreach Member Role: Lifetime Consulting Physician Name: Godfrey Cano Position: [facility] RN Member Role: Primary Care Nurse Name: Anette Miranda RN Position: [facility] Onco RN Member Role: Primary Care Nurse Care Team Related Persons Name: DIOMEDES WARNER Address: home [address] [place] [address] Name: MOO HOWELL Address: [address] [place] [address] Name: MARLON GENTILE
--- OUTSIDE RECORDS SUMMARY | 2024-03-17 13:29 | XMS_ITS | Continuity of Care Document ---
Author Organization [facility] Address [address] [place] [address]- Care Team Providers Care Motor And Generator Brush Cutter Name Role Phone Juan Manuel LIM, Kristen Acosta Primary Care Physic juan alberto Encounter [facility] Date(s): 05/26/22 - 06/25/22 [facility] [address] [place] [id number] Attending Physician: Alissa Gannon Admitting Physician: AdmAlissa fisher Referring Physician: Admtr, Alissa Allergies, Adverse Reactions, Alerts Substance Reaction Severity Status morphine hives, SOB Active Wellbutrin rash Active cannabis (Schedule I substance) itching/vomiting Active contrast media (iodine-based) itching throughout body Active penicillins hive Active Reglan Active Other Environmental Allergy mercury-fillings Active Immunizations Given and Recorded Vaccine Date Status Refusal Reason pneumococcal 20-valent conjugate vaccine 05/30/22 Recorded [id number]-[id number] 12y+ bivalent booster vax 05/12/22 Recorded influenza [...] vaccine, inactivated 04/26/09 Arnoldo rded SARS-CoV-2 mRNA (xitomzt-ivzf-jkkbb) vax 03/10/22 Recorded SARS-CoV-2 mRNA (kvyiloo-obka-ckkch) vax 10/04/21 Recorded SARS-CoV-2 (COVID-19) mRNA BNT-162b2 [...] 2 Refills, Maintenance, 02/28/22 8:12:00EDT, Tablet, [facility]/pharmacy #[id number], Partial fill upon patient request if the prescription is for a schedule II opioid drug., 155, cm, 02/23/22 8:04:00 EDT... Start Date: 02/28/22 Status: Ordered baclofen 20 mg oral tablet 20 mg, 1, tablet, By Mouth, 3 times a day, # 270 tablet, Refills 2, Tot. Refills 2, Maintenance, 12/09/22 12:44:00 EDT, Route to Pharmacy Electronically, [facility], Partial fill upon patient request if the prescription is for a... Start Date: 12/09/22 Stop Date: 09/05/23 Status: Ordered baclofen 20 mg oral tablet 20 mg, 1, tablet, By Mouth, 3 times a day, for 90 days, # 270 tablet, Refills 2, Tot. Refills 2, Hard Stop 12/09/22 12:44:00 EDT, 03/14/22 12:44:00 EDT, [id number] fill upon patient request if the pre... Start Date: 03/14/22 Stop Date: 12/09/22 Status: Ordered bifidobacterium-lactobacillus oral tablet 2 tablet, By Mouth, 2 times a day, [facility] Brand please ([facility]), # 360 tablet, 3 Refills, Maintenance, 08/11/21 17:02:00 EST, Tablet, [facility]/pharmacy #[id number], Partial fill upon patient request if the prescription is for a schedule II opioid drug., 2... Start Date: 08/11/21 Stop Date: 08/06/22 Status: Ordered calcium carbonate 600 mg oral tablet 1 tablet = 600 mg, By Mouth, 2 times a day, # 180 tablet, 2 Refills, Maintenance, 01/06/23 14:02:00EDT, Tablet, [facility]/pharmacy #[id number], Partial fill upon [...] 01/06/23 14:02:00 EDT, 01/11/22 14:02:00 EDT, [facility] fill upon patient request [...] 07/25/22 8:59:00 EST, 05/26/22 8:59:00 EDT, Cream, [facility]/pharmacy #[id number], Partial fill upon patient request if the prescription is for a schedule II opioid drug., 1 applicat... Start Date: 05/26/22 Stop Date: 07/25/22 Status: Ordered [facility] SENIOR PROBIOTIC CAPSULE TAKE 2 CAPSULES BY MOUTH TWICE A DAY Start Date: 11/01/21 Status: Ordered diclofenac 1% topical gel 1 application, Topically, 4 times a day, Apply 4 gram QID prn to affected pain to dropped foot - not to exceed 16 grams/day/single joint of lower extremities, # 100 Gm, 3 Refills, Maintenance, 04/02/22 21:13:00 EDT, Gel, [facility] Start Date: 04/02/22 [...] 5 Refills, 03/02/22 8:08:00 EDT, [facility]/pharmacy #[id number], 155, cm, 02/23/22 [...] Stop, 05/26/22 8:59:00 EDT, Tablet, [facility]/pharmacy #[id number], Partial fill upon [...] 01/02/22 9:03:00 EDT, Route to Pharmacy Electronically, [facility] [...] 01/11/22 13:45:00 EDT, [facility] Start Date: 01/11/22 Status: Ordered gabapentin 300 mg oral capsule 300 mg, 1, capsule, By Mouth, 3 times a day, # 270 capsule, Refills 2, Tot. Refills 2, Maintenance,05/21/22 7:44:00 EDT, Route to Pharmacy Electronically, [facility], Partial fill upon patient request if the prescription is for... Start Date: 05/21/22 Stop Date: 02/15/23 Status: Ordered Juzo Compression Hose Juzo Compression Hose, See Instructions, # 2 each, Refills 2, Tot. Refills 2, Maintenance, 20-30mmghg FF Petite (short),Uxnzx-ytu-xwri, soft knee, black silicone Stock code [id number] Part #19488, Size III. [facility] [id number], 12/07/21 11:32:00 EDT,... Start Date: 12/07/21 Status: Ordered levothyroxine 0.088 mg oral tablet 1 tablet = 88 mcg, By Mouth, Daily, # 90 tablet, 3 Refills, Maintenance, 03/31/22 13:45:00 EDT, Tablet, [facility], Partial fill upon patient request if the prescription is fora schedule II opioid drug., 155, cm, 03/14/22 11:11... Start Date: 03/31/22 Status: Ordered lisinopril 5 mg oral tablet 5 mg, 1, tablet, By Mouth, Daily, # 90 tablet, Refills 3, Tot. Refills 3, Maintenance, 02/24/22 15:53:00 EDT, Route to Pharmacy Electronically, [facility]/pharmacy #[id number], Partial fill upon patient request if the prescription is for a schedule II opioid drug.... Start Date: 02/24/22 Status: Ordered Mapap 500 mg oral capsule See Instructions, TAKE 2 CAPSULES BY MOUTH 4 TIMES A DAY NEEDED FOR PAIN, # 480 capsule, 3 Refills, Maintenance, 06/04/22 16:03:00 EDT, [facility] STORE [id number], 155, cm, 05/25/22 13:44:00 EDT, Height, 93.4, kg, 11/01/21 16:52:00 EDT, Dry Weight Start Date: 06/04/22 Status: Ordered Potassium Chloride (Eqv-K-Tab) 20 mEq oral tablet, extended release 1 tablet = 20 mEq, By Mouth, Daily, for low potassium, # 10 tablet, 0 Refills, Maintenance, 03/02/22 19:14:00 EDT, [facility]/pharmacy #[id number], Partial fill upon patient request if the prescription is for a schedule II opioid drug., 155, cm, 02/23/22 8:04:00 E... Start Date: 03/02/22 Stop Date: 03/12/22 Status: Ordered Power [place] Lift with [place] split-leg sling Power [place] Lift with [place] split-leg sling, See Instructions, # 1 each, [...] Refills, Maintenance, 02/28/22 8:12:00 EDT, Tablet, [facility]/pharmacy #[id number], Partial fill upon [...] capsule, 2 Refills, 02/28/22 8:13:00 EDT, [facility]/pharmacy #[id number], 155,cm, 02/23/22 8:04:00 EDT, Height, 93.4, kg, 11/01/21 16:52:00 EDT, Dry Weight Start Date: 02/28/22 Status: Ordered Xarelto 20 mg oral tablet 1 tablet = 20 mg, By Mouth, Daily at supper, # 90 tablet, 3 Refills, Maintenance, 02/01/22 12:42:00EDT, Tablet, [facility], Partial fill upon patient request [...] Team Personnel Name: Juliann Rich RN Position: [facility] RN Member Role: Primary Care Nurse Name: Elsa Allen NP Position: Reference Physician Member Role: Primary Care Nurse Address: Address: [address] [place] [address] [address] [place] [address]- Name: Emma Mendoza RN Position: [facility] RN Member Role: Primary Care Nurse Name: Juan Manuel LIM, Kristen Acosta Position: [facility] Primary Care Physician Member Role: PCP Address: Address: [address] [place] [address]- Name: Jade Medina Position: S RN Member Role: Primary Care Nurse Name: Komal Goodrich Position: S Outreach Member Role: Lifetime Consulting Physician Name: Godfrey Cano Position: S RN Member Role: Primary Care Nurse Name: Anette Miranda RN Position: [facility] Onco RN Member Role: Primary Care Nurse Care Team Related Persons Name: DIOMEDES WARNER Address: [address] [place] [address] Name: MOO HOWELL Address: [address] [place] [address] Name: MARLON GENTILE
--- OUTSIDE RECORDS SUMMARY | 2024-03-17 13:29 | XMS_ITS | Continuity of Care Document ---
Author Organization [facility] Address [address] [place] [address]- Care Team Providers Care Clinical Research Management Associate Name Role Phone Juan Manuel LIM, Kristen Acosta Primary Care Physic juan alberto Encounter [facility] Date(s): 01/16/22 - 02/15/22 [facility] [address] [place] [address]- Allergies, Adverse Reactions, Alerts Substance Reaction Severity Status morphine hives, SOB Active Wellbutrin rash Active Reglan Active Other Environmental Allergy mercury-fillings Active contrast media (iodine-based) itching throughout body Active cannabis (Schedule I substance) itching/vomiting Active penicillins hive Active Immunizations Given and Recorded Vaccine Date Status Refusal Reason SARS-CoV-2 mRNA ([id number]) vax 10/04/21 Recorded influenza virus vaccine, inactivated [...] 17:46:00 EDT, 08/22/21 17:46:00 EST, Capsule, [facility]/pharmacy #[id number], Partial fill upon patient request if the prescription is for a schedul... Start Date: 08/22/21 Stop Date: 04/19/22 Status: Ordered ascorbic acid 1000 mg oral tablet 1 tablet = 1,000 mg, By Mouth, 2 times a day, # 90 tablet, 1 Refills, Maintenance, 08/11/21 17:03:00 EST, Tablet, [facility]/pharmacy #[id number], Partial fill upon patient request if the prescription is for a schedule II opioid drug., 153, cm, 06/27/21 7:47:00 ES... Start Date: 08/11/21 Status: Ordered baclofen 20 mg oral tablet 20 mg, 1, tablet, By Mouth, 3 times a day, # 360 tablet, Refills 1, Tot. Refills 1, Maintenance, 08/02/21 14:09:00 EST, Route to Pharmacy Electronically, [facility], Partial fill upon patient request if the prescription is for a... Start Date: 08/02/21 Status: Ordered bifidobacterium-lactobacillus oral tablet 2 tablet, By Mouth, 2 times a day, [facility] Brand please (Senior Wellness), # 360 tablet, 3 Refills, Maintenance, 08/11/21 17:02:00 EST, Tablet, [facility]/pharmacy #[id number], Partial fill upon patient request if the prescription is for a schedule II opioid drug., 2... Start Date: 08/11/21 Stop Date: 08/06/22 Status: Ordered calcium carbonate 600 mg oral tablet 1 tablet = 600 mg, By Mouth, 2 times a day, # 180 tablet, 3 Refills, Maintenance, 01/11/22 14:02:00EDT, Tablet, [facility], Partial fill upon patient request if the prescription is for a schedule II opioid drug., 155, cm, 01/02... Start Date: 01/11/22 Stop Date: 01/06/23 Status: Ordered Centrum Silver Ultra Women's oral tablet 1 tablet, By Mouth, Daily, 0 Refills, Maintenance, 07/09/18 8:43:55 EST Start Date: 07/09/18 Status: Ordered [facility] SENIOR PROBIOTIC CAPSULE TAKE 2 CAPSULES BY MOUTH TWICE A DAY Start Date: 11/01/21 Status: Ordered diclofenac 1% topical gel 1 application, Topically, 4 times a day, # 100 Gm, 3 Refills, Maintenance, 01/11/22 14:07:00 EDT, Gel, [facility], Partial fill upon patient [...] DAY NEEDED FOR CONSTIPATION, # 450 mL, 0 Refills, 02/08/22 18:16:00 EDT, [facility]/pharmacy #[id number], 155, cm, 01/02/22 8:26:00 EDT, Height, 93.4, kg, 11/01/21 16:52:00EDT, Dry Weight Start Date: 02/08/22 Status: Ordered estradiol 0.1 mg/g vaginal cream [...] 01/02/22 9:03:00 EDT, Route to Pharmacy Electronically, [facility], Partial fill upon patient [...] 01/11/22 13:45:00 EDT, [facility] Start Date: 01/11/22 Status: Ordered gabapentin [...] Tot. Refills 2, Maintenance, 20-30mmghg FF Petite (short),Qkomq-otx-nbld, soft knee, black silicone Stock code [id number] Part #[id number], Size III. SKU [id number], 12/07/21 11:32:00 EDT,... Start Date: 12/07/21 Status: Ordered levothyroxine 0.088 mg oral tablet 1 tablet = 88 mcg, By Mouth, Daily, # 90 tablet, 1 Refills, Maintenance, 07/13/21 14:09:00 EST, Tablet, [facility], Partial fill upon patient request if the prescription is fora schedule II opioid drug., 153, cm, 06/27/21 7:47:... Start Date: 07/13/21 Status: Ordered lisinopril 5 mg oral tablet 5 mg, 1, tablet, By Mouth, Daily, # 90 tablet, Refills 3, Tot. Refills 3, Maintenance, 01/11/22 13:42:00 EDT, Route to Pharmacy Electronically, [facility], Partial fill upon patient request if the prescription is for a schedule... Start Date: 01/11/22 Status: Ordered Power [place] Lift with [place] split-leg sling Power [place] Lift with [place] split-leg sling, See Instructions, # 1 each, [...] 1 Refills, Maintenance, 12/09/21 1:28:00 EDT, Tablet, [facility]/pharmacy #[id number], Partial fill upon patient request if the prescription... Start Date: 12/09/21 Stop Date: 02/03/22 Status: Ordered RIGHT RESTING HAND SPLINT RIGHT [...] capsule, 1 Refills, 08/11/21 17:04:00 EST, [facility]/pharmacy #[id number], 153, cm, 06/27/21 7:47:00 EST, Height Start Date: 08/11/21 Status: Ordered Xarelto 20 mg oral tablet 1 tablet = 20 mg, By Mouth, Daily at supper, # 90 tablet, 3 Refills, Maintenance, 02/01/22 12:42:00EDT, Tablet, [facility], Partial fill upon patient [...]
--- OUTSIDE RECORDS SUMMARY | 2024-03-17 13:29 | XMS_ITS | Continuity of Care Document ---
Author Organization [facility] Address [address] [place] [address]- Care Team Providers Care Banking Pin Adjuster Name Role Phone Rey CENTENO, Javy Lerma Primary Care Physician Encounter [facility] Date(s): 04/04/21 - 04/11/21 [facility] [address] [place] [address]- Attending Physician: Javy Le NP Allergies, Adverse Reactions, Alerts Substance Reaction Severity Status morphine hives, SOB Active penicillins hive Active Wellbutrin rash Active Reglan Active cannabis (Schedule I substance) itching/vomiting Active Other Environmental Allergy mercury-fillings Active contrast media (iodine-based) itching throughout body Active Medications acetaminophen 500 mg oral capsule 1 [...] 02/18/21 10:23:00 EDT, Route to Pharmacy Electronically, [facility]/pharmacy #[id number], Partial fill upon [...] each, 0 Refills, Maintenance, 04/05/21 13:29:00 EDT, [facility]/pharmacy #[id number], Partial fill upon patient request if the prescription is for a schedule II opioid drug., 153, cm, 04/04/21... Start Date: 04/05/21 Status: Ordered furosemide 40 mg oral tablet 40 mg, 1, tablet, By Mouth, Daily, # 90 tablet, Refills 2, Tot. Refills 2, Maintenance, 04/05/21 13:39:00 EDT, Route to Pharmacy Electronically, [facility], Partial fill upon patient request if the prescription is for a schedule... Start Date: 04/05/21 Stop Date: 05/05/21 Status: Ordered gabapentin 250 mg/5 mL oral solution 12 mL = 600 mg, By Mouth, 4 times a day, # 1,440 mL, 0 Refills, Maintenance, 02/18/21 10:22:00 EDT,Liquid, [facility]/pharmacy #[id number], Partial fill upon patient request if the prescription is for a scheduleII opioid drug. Ok to dispense similar quantity if... Start Date: 02/18/21 Stop Date: 03/20/21 Status: Ordered levothyroxine 0.088 mg oral tablet 1 tablet = 88 mcg, By Mouth, Daily, # 90 tablet, 1 Refills, Maintenance, 04/05/21 13:40:00 EDT, Tablet, [facility], Partial fill upon patient request if the prescription is fora schedule II opioid drug., 153, cm, 04/04/21 9:04:... Start Date: 04/05/21 Status: Ordered lisinopril 5 mg oral tablet 5 mg, 1, tablet, By Mouth, Daily, # 90 tablet, Refills 1, Tot. Refills 1, Maintenance, 04/05/21 13:40:00 EDT, Route to Pharmacy Electronically, [facility], Partial fill upon patient request if the prescription is for a schedule... Start Date: 04/05/21 Status: Ordered Magnesium Citrate By Mouth, 0 Refills, Maintenance, 11/28/18 16:25:54 EDT Start Date: 11/28/18 Status: Ordered methenamine hippurate 1 gm oral tablet 1 tablet = 1 Gm, By Mouth, 2 times a day, # 60 tablet, 1 Refills, Maintenance, 04/05/21 13:35:00 EDT, [facility]/pharmacy #[id number], Partial fill upon [...] 0 Refills, Maintenance, 04/05/21 13:30:00 EDT, Tablet, [facility]/pharmacy #[id number], Partial fill upon [...] Paraplegia(Confirmed) Active Bladder spasm(Confirmed) Active Spasticity(Confirmed) Active Vital Signs Most recent to oldest [Reference Range]: 1 Height 153 cm (04/04/21 9:04 AM) Social History Social History Type Response Smoking Status Never smoker entered on: 11/15/14 Sex
--- OUTSIDE RECORDS SUMMARY | 2024-03-17 13:29 | XMS_ITS | Continuity of Care Document ---
Author Organization [facility] Address [address] [place] [address]- Care Team Providers Care Back Padder Name Role Phone Juan Manuel LIM, Kristen Acosta Primary Care Physic juan alberto Encounter [facility] Date(s): 01/24/22 - 02/23/22 [facility] [address] [place] [address]- Allergies, Adverse Reactions, Alerts Substance Reaction Severity Status morphine hives, SOB Active penicillins hive Active Wellbutrin rash Active Reglan Active cannabis (Schedule I substance) itching/vomiting Active Other Environmental Allergy mercury-fillings Active contrast media (iodine-based) itching throughout body Active Immunizations Given and Recorded Vaccine Date Status Refusal Reason SARS-CoV-2 mRNA ([id number]) vax 10/04/21 Recorded influenza virus vaccine, inactivated [...] 04/19/22 17:46:00 EDT, 08/22/21 17:46:00 EST, Capsule, [facility]/pharmacy #[id number], Partial fill upon patient request if the prescription is for a schedul... Start Date: 08/22/21 Stop Date: 04/19/22 Status: Ordered ascorbic acid 1000 mg oral tablet 1 tablet = 1,000 mg, By Mouth, 2 times a day, # 90 tablet, 1 Refills, Maintenance, 08/11/21 17:03:00 EST, Tablet, [facility]/pharmacy #[id number], Partial fill upon patient request if the prescription is for a schedule II opioid drug., 153, cm, 06/27/21 7:47:00 ES... Start Date: 08/11/21 Status: Ordered baclofen 20 mg oral tablet 20 mg, 1, tablet, By Mouth, 3 times a day, # 360 tablet, Refills 1, Tot. Refills 1, Maintenance, 08/02/21 14:09:00 EST, Route to Pharm[facility] Electronically[facility], Partial fill upon patient request if the prescription is for a... Start Date: 08/02/21 Status: Ordered bifidobacterium-lactobacillus oral tablet 2 tablet, By Mouth, 2 times a day, [facility] Brand please (Senior Wellness), # 360 tablet, 3 Refills, Maintenance, 08/11/21 17:02:00 EST, Tablet, [facility]/pharmacy #[id number], Partial fill upon patient request if the prescription is for a schedule II opioid drug., 2... Start Date: 08/11/21 Stop Date: 08/06/22 Status: Ordered calcium carbonate 600 mg oral tablet 1 tablet = 600 mg, By Mouth, 2 times a day, # 180 tablet, 3 Refills, Maintenance, 01/11/22 14:02:00EDT, Tablet, [facility], Partial fill upon patient request if the prescription is for a schedule II opioid drug., 155, cm, 01/02... Start Date: 01/11/22 Stop Date: 01/06/23 Status: Ordered Centrum Silver Ultra Women's oral tablet 1 tablet, By Mouth, Daily, 0 Refills, Maintenance, 07/09/18 8:43:55 EST Start Date: 07/09/18 Status: Ordered [facility] SENIOR PROBIOTIC CAPSULE TAKE 2 CAPSULES BY MOUTH TWICE A DAY Start Date: 11/01/21 Status: Ordered diclofenac 1% topical gel 1 application, Topically, 4 times a day, # 100 Gm, 3 Refills, Maintenance, 01/11/22 14:07:00 EDT, Gel, [facility], Partial fill upon patient request [...] 450 mL, 0 Refills, 02/08/22 18:16:00 EDT, [facility]/pharmacy #[id number], 155, cm, 01/02/22 8:26:00 EDT, Height, [...] Route to Pharmacy Electronically, [facility], Partial fill upon patient request [...] 01/11/22 13:45:00 EDT, Route to Pharmacy Electronically, [facility]... Start Date: 01/11/22 Status: Ordered gabapentin 300 mg oral capsule 300 mg, 1, capsule, By Mouth, 3 times a day, # 90 capsule, Refills 2, Tot. Refills 2, Maintenance, 02/20/22 7:44:00 EDT, Route to Pharmacy Electronically, [facility]/pharmacy #[id number], Partial fill upon patient request if the prescription is for a schedule II o... Start Date: 02/20/22 Stop Date: 05/21/22 Status: Ordered Juzo Compression Hose Juzo Compression Hose, See Instructions, # 2 each, Refills 2, Tot. Refills 2, Maintenance, 20-30mmghg FF Petite (short),[place]-xbx-hebn, soft knee, black silicone Stock code [id number] Part #[id number], Size III. [facility] [id number], 12/07/21 11:32:00 EDT,... Start Date: 12/07/21 Status: Ordered levothyroxine 0.088 mg oral tablet 1 tablet = 88 mcg, By Mouth, Daily, # 90 tablet, 1 Refills, Maintenance, 07/13/21 14:09:00 EST, Tablet, [facility], Partial fill upon patient request if the prescription is fora schedule II opioid drug., 153, cm, 06/27/21 7:47:... Start Date: 07/13/21 Status: Ordered lisinopril 5 mg oral tablet 5 mg, 1, tablet, By Mouth, Daily, # 90 tablet, Refills 3, Tot. Refills 3, Maintenance, 01/11/22 13:42:00 EDT, Route to Pharmacy Electronically, [facility], Partial fill upon patient request if the prescription is for a schedule... Start Date: 01/11/22 Status: Ordered Power [place] Lift with [place] split-leg sling Power [place] Lift with [place] split-leg sling, See Instructions, # 1 each, [...] 1 Refills, Maintenance, 12/09/21 1:28:00 EDT, Tablet, [facility]/pharmacy #[id number], Partial fill upon patient request [...] 90 capsule, 1 Refills, 08/11/21 17:04:00 EST, [facility]/pharmacy #[id number], 153, cm, 06/27/21 7:47:00 EST, Height Start Date: 08/11/21 Status: Ordered Xarelto 20 mg oral tablet 1 tablet = 20 mg, By Mouth, Daily at supper, # 90 tablet, 3 Refills, Maintenance, 02/01/22 12:42:00EDT, Tablet, [facility], Partial fill upon patient request [...] MS (multiple sclerosis)(Confirmed) Active Muscle weakness(Confirmed) Active Neurogenic bladder(Confirmed) Active Obese class II(Confirmed) Active Paraplegia(Confirmed) Active Pulmonary embolism(Confirmed) Active Bladder spasm(Confirmed) Active Spasticity(Confirmed) Active Social History Social History Type Response Smoking Status Never (less than 100 in lifetime) entered on: 10/31/21 Sex
--- OUTSIDE RECORDS SUMMARY | 2024-03-17 13:29 | XMS_ITS | Continuity of Care Document ---
Author Organization [facility] Address [address] [place] [address]- Care Team Providers Care Manager Retention Name Role Phone Juan Manuel LIM, Kristen Acosta Primary Care Physic juan alberto Encounter [facility] Date(s): 03/28/21 - 07/05/21 [facility] [address] [place] [id number] Discharge Disposition: A-D/C Home Attending Physician: Ila LIM(Hem/Onc), [place] Admitting Physician: Ila LIM(Hem/Onc), [place] Referring Physician: Rey CENTENO, Javy Lerma Allergies, Adverse Reactions, Alerts Substance Reaction Severity Status morphine hives, SOB Active Wellbutrin rash Active Reglan Active contrast media (iodine-based) itching throughout body Active Other Environmental Allergy mercury-fillings Active penicillins hive Active cannabis (Schedule I [...] 30 days, # 100 capsule, 1 Refills,Acute 07/17/21 7:27:00 EST, 05/18/21 7:27:00 EDT, Capsule, [id number], Partial fill upon patient request if the prescription is for a schedule... Start Date: 05/18/21 Stop Date: 07/17/21 Status: Ordered ascorbic acid 1000 mg oral [...] tablet, By Mouth, Daily, [facility] Brand please ([facility]), # 180 tablet, 3 Refills, Maintenance, 06/27/21 9:09:00 EST, Tablet, [facility]/pharmacy #[id number], Partial fill upon patient request [...] 0 Refills, Maintenance, 04/25/21 14:08:00 EDT, Tablet, [facility]/pharmacy #[id number], Partial fill upon patient request if the prescription is for a schedule II opioid drug., 153, cm, 04/25/21 13:34:00 EDT... Start Date: 04/25/21 Status: Ordered cefpodoxime 200 mg oral tablet [...] Daily, # 90 tablet, 1 Refills, Maintenance, 06/21/21 15:50:00 EST, Tablet, [facility]/pharmacy #[id number], Partial fill upon patient request if the prescription is for a schedule II opioid drug., 153, cm, 04/25/21 13:34:00 EDT, Height Start Date: 06/21/21 Status: Ordered lisinopril 5 mg oral tablet 5 mg, 1, tablet, By Mouth, Daily, # 90 tablet, Refills 1, Tot. Refills 1, Maintenance, 04/05/21 13:40:00 EDT, Route to Pharmacy Electronically, [facility], Partial fill upon patient request if the prescription is for a schedule... Start Date: 04/05/21 Status: Ordered Provigil 200 mg oral tablet 1 tablet = 200 mg, By Mouth, 2 times a day, takes in am and lunchtime brand name only - dispense aswritten, # 180 tablet, 0 Refills, Maintenance, 05/18/21 7:27:00 EDT, Tablet, [facility]/pharmacy #[id number], Partial fill upon patient request if the prescription... Start Date: 05/18/21 Status: Ordered Turmeric = 750 mg, By Mouth, 2 times a day, 0 Refills, Maintenance, 07/09/18 8:47:35 EST Start Date: 07/09/18 Status: Ordered Vitamin D3 2000 intl units oral capsule 1 capsule, By Mouth, Daily, # 90 capsule, 1 Refills, [id number], 153, cm, 04/25/21 13:34:00 EDT, Height Start [...]
--- OUTSIDE RECORDS SUMMARY | 2024-03-17 13:29 | XMS_ITS | Continuity of Care Document ---
Author Organization [facility] Address [address], [address] Floor, [address] [place] [address]- Care Team Providers Care Red Hat Linux Administrator Name Role Phone Juan Manuel LIM, Kristen Acosta Primary Care Physic juan alberto Encounter [facility] Date(s): 09/18/22 - 10/18/22 [facility] [address], [address], [address] [place] [id number]- Allergies, Adverse Reactions, Alerts Substance Reaction Severity Status morphine hives, SOB Active Wellbutrin rash Active Reglan Active contrast media (iodine-based) itching throughout body Active Other Environmental Allergy mercury-fillings Active penicillins hive Active cannabis (Schedule I substance) itching/vomiting Active Immunizations Given and Recorded Vaccine Date Status Refusal Reason pneumococcal 20-valent conjugate vaccine 05/30/22 Recorded [id number] 12y+ bivalent booster vax 05/12/22 Recorded influenza [...] vaccine, inactivated 04/26/09 Arnoldo rded SARS-CoV-2 mRNA (hbflrnz-tokg-tcytn) vax 03/10/22 Recorded SARS-CoV-2 mRNA (tuebzgz-jvqz-dbmnm) vax 10/04/21 Recorded SARS-CoV-2 (COVID-19) mRNA BNT-162b2 [...] tablet, 0 Refills, Maintenance, 10/05/22 9:35:00EST, Tablet, [facility]/pharmacy #[id number], Partial fill upon patient request if the prescription is for a schedule II opioid drug., 155, cm, 09/26/22 14:02:00 ES... Start Date: 10/05/22 Status: Ordered baclofen 20 mg oral tablet 20 mg, 1, tablet, By Mouth, 3 times a day, # 270 tablet, Refills 2, Tot. Refills 2, Maintenance, 12/09/22 12:44:00 EDT, Route to Pharmacy Electronically, [facility], Partial fill upon patient request if the prescription is for a... Start Date: 12/09/22 Stop Date: 09/05/23 Status: Ordered baclofen 20 mg oral tablet 20 mg, 1, tablet, By Mouth, 3 times a day, for 90 days, # 270 tablet, Refills 2, Tot. Refills 2, Hard Stop 12/09/22 12:44:00 EDT, 03/14/22 12:44:00 EDT, [id number] fill upon patient request if the pre... Start Date: 03/14/22 Stop Date: 12/09/22 Status: Ordered bifidobacterium-lactobacillus oral tablet 2 tablet, By Mouth, 2 times a day, [facility] Brand please (Senior Wellness), # 360 [...] 01/06/23 14:02:00 EDT, 01/11/22 14:02:00 EDT, Tablet, [facility], Partial fill upon patient [...] 01/02/22 9:03:00 EDT, Route to Pharmacy Electronically, [facility], Partial fill upon patient [...] 05/21/22 7:44:00 EDT, Route to Pharmacy Electronically, [facility], Partial fill upon patient re... Start Date: 05/21/22 Stop Date: 02/15/23 Status: Ordered gabapentin 300 mg oral capsule 300 mg, 1, capsule, By Mouth, 3 times a day, # 270 capsule, Refills 2, Tot. Refills 2, Maintenance,02/15/23 7:44:00 EDT, Route to Pharmacy Electronically, [facility], Partial fill upon patient request if the prescription is for... Start Date: 02/15/23 Stop Date: 11/12/23 Status: Ordered Juzo Compression Hose Juzo Compression Hose, See Instructions, # 2 each, Refills 2, Tot. Refills 2, Maintenance, 20-30mmghg FF Petite (short),Kmdbu-igb-grre, soft knee, black silicone Stock code [id number] Part #[id number], Size III. [facility] [id number], 12/07/21 11:32:00 EDT,... Start Date: 12/07/21 Status: Ordered levothyroxine 0.088 mg oral tablet 1 tablet = 88 mcg, By Mouth, Daily, # 90 tablet, 1 Refills, Maintenance, 09/08/22 14:26:00 EST, Tablet, [facility], Partial fill upon patient request if the prescription is fora schedule II opioid drug., 155, cm, 07/12/22 14:10... Start Date: 09/08/22 Status: Ordered lisinopril 5 mg oral tablet 5 mg, 1, tablet, By Mouth, Daily, # 90 tablet, Refills 3, Tot. Refills 3, Maintenance, 02/24/22 15:53:00 EDT, Route to Pharmacy Electronically, [facility]/pharmacy #[id number], Partial fill upon patient request if the prescription is for a schedule II opioid drug.... Start Date: 02/24/22 Status: Ordered lisinopril 5 mg oral tablet See Instructions, TAKE 1 TABLET DAILY, # 90 tablet, Refills 1, Maintenance, 09/24/22 19:24:00 EST, Instructions Replace Required Details, Route to Pharmacy Electronically, [facility], 155, cm, 07/12/22 14:10:00 EST, Height, 93.4, k... Start Date: 09/24/22 Status: Ordered Mapap 500 mg oral capsule See Instructions, TAKE 2 CAPSULES BY MOUTH 4 TIMES A DAY NEEDED FOR PAIN, # 480 capsule, 3 Refills, Maintenance, 06/04/22 16:03:00 EDT, [id number], 155, cm, 05/25/22 13:44:00 EDT, Height, 93.4, kg, 11/01/21 16:52:00 EDT, Dry Weight Start Date: 06/04/22 Status: Ordered Power [place] Lift with [place] split-leg sling Power [place] Lift with [place] split-leg sling, See Instructions, # 1 each, [...] 11/01/22 17:46:00 EDT, 07/12/22 17:46:00 EST, Tablet, [facility]/pharmacy #[id number], Partial fill upon pa... Start Date: 07/12/22 Stop Date: 11/01/22 Status: Ordered Provigil 200 mg oral tablet 1 tablet = 200 mg, By Mouth, 2 times a day, takes in am and lunchtime brand name only - dispense aswritten, # 56 tablet, 5 Refills, Maintenance, 10/05/22 17:39:00 EST, [id number] fill upon patient request if the prescription... Start Date: 10/05/22 Stop Date: 03/22/23 Status: Ordered Provigil 200 mg oral tablet 1 tablet = 200 mg, By Mouth, 2 times a day, for 28 days, takes in am and lunchtime brand name only - dispense as written, # 56 tablet, 3 Refills, Hard Stop 10/25/22 18:25:00 EDT, 07/05/22 18:25:00 EST, Tablet, [facility], Parti... Start Date: 07/05/22 Stop Date: [...] 90 capsule, 2 Refills, 02/28/22 8:13:00 EDT, [facility]/pharmacy #[id number], 155,cm, 02/23/22 8:04:00 EDT, Height, 93.4, kg, 11/01/21 16:52:00 EDT, Dry Weight Start Date: 02/28/22 Status: Ordered Xarelto 20 mg oral tablet 1 tablet = 20 mg, By Mouth, Daily at supper, # 90 tablet, 3 Refills, Maintenance, 02/01/22 12:42:00EDT, Tablet, [facility] Partial fill upon patient request if [...] Member Role: Primary Care Nurse Address: Address: [address] [place] [address] [address] [facility] [place] [address]- [place] Name: Emma Mendoza RN Position: [facility] RN Member Role: Primary Care Nurse Name: Juan Manuel LIM, Kristen Acosta Position: [facility] Primary Care Physician Member Role: PCP Address: Address: [address] [place] [address]- Name: Jade Medina Position: [facility] RN Member Role: Primary Care Nurse Name: Komal Goodrich Position: [facility] Outreach Member Role: Lifetime Consulting Physician Name: Godfrey Cano Position: [facility] RN Member Role: Primary Care Nurse Name: Anette Miranda RN Position: [facility] Onco RN Member Role: Primary Care Nurse Care Team Related Persons Name: DIOMEDES WARNER Address: [address] [place] [address] Name: MOO HOWELL Address: [address] [place] [address] Name: MARLON GENTILE
--- OUTSIDE RECORDS SUMMARY | 2024-03-17 13:29 | XMS_ITS | Continuity of Care Document ---
Author Organization [facility] Address [address] [place], [place] [address]michelle walker, [address] [place] [address]- Care Team Providers Care Transport Pilot Name Role Phone Rey CENTENO, Javy Lerma Primary Care Physician [phone] [id number]): [facility] - 03[facility]31/[facility] [address] [place] [address] Drive, [address] [place] [address]- Attending Physician: Clinton LIM, Teresa Trejo Referring Physician: Candida LIM, Fernando Ahmadi Allergies, Adverse Reactions, Alerts Substance Reaction Severity Status morphine hives, SOB Active penicillins hive Active Wellbutrin rash Active Reglan Active Other Environmental Allergy mercury-fillings Active contrast media (iodine-based) itching throughout body Active cannabis (Schedule I substance) itching/vomiting Active Medications Azelex 20% topical cream 1 [...] 02/18/21 10:23:00 EDT, Route to Pharmacy Electronically, [facility]/pharmacy #[id number], Partial fill upon patient request [...] mL, 0 Refills, Maintenance, 02/18/21 10:22:00 EDT,Liquid, [facility]/pharmacy #[id number], Partial fill upon patient request [...]
--- OUTSIDE RECORDS SUMMARY | 2024-03-17 13:29 | XMS_ITS | Continuity of Care Document ---
Author Organization [facility] Address [address] [place] [address]- Care Team Providers Care Optical Instrument Assembler Name Role Phone Juan Manuel LIM, Kristen Acosta Primary Care Physic juan alberto Encounter [facility] Date(s): 02/20/22 - 03/22/22 [facility] [address] [place] [address]- Allergies, Adverse Reactions, Alerts Substance Reaction Severity Status morphine hives, SOB Active penicillins hive Active Wellbutrin rash Active Reglan Active cannabis (Schedule I substance) itching/vomiting Active Other Environmental Allergy mercury-fillings Active contrast media (iodine-based) itching throughout body Active Immunizations Given and Recorded Vaccine Date Status Refusal Reason SARS-CoV-2 mRNA (omxseza-fcrs-lnmus) vax 10/04/21 Recorded influenza virus vaccine, inactivated [...] 04/19/22 17:46:00 EDT, 08/22/21 17:46:00 EST, Capsule, [facility]/pharmacy #[id number], Partial fill upon patient request if the prescription is for a schedul... Start Date: 08/22/21 Stop Date: 04/19/22 Status: Ordered ascorbic acid 1000 mg oral tablet 1 tablet = 1,000 mg, By Mouth, 2 times a day, # 90 tablet, 2 Refills, Maintenance, 02/28/22 8:12:00EDT, Tablet, [facility]/pharmacy #[id number], Partial fill upon patient request if the prescription is for a schedule II opioid drug., 155, cm, 02/23/22 8:04:00 EDT... Start Date: 02/28/22 Status: Ordered baclofen 20 mg oral tablet 20 mg, 1, tablet, By Mouth, 3 times a day, # 270 tablet, Refills 2, Tot. Refills 2, Maintenance, 03/14/22 12:44:00 EDT, Route to Pharmacy Electronically, [facility]/pharmacy #[id number], Partial fill upon patientrequest if the prescription is for a schedule II op... Start Date: 03/14/22 Stop Date: 12/09/22 Status: Ordered bifidobacterium-lactobacillus oral tablet 2 tablet, By Mouth, 2 times a day, [facility] Brand please (Senior Wellness), # 360 tablet, 3 Refills, Maintenance, 08/11/21 17:02:00 EST, Tablet[id number] Partial fill upon patient request if the prescription is for a schedule II opioid drug., 2... Start Date: 08/11/21 Stop Date: 08/06/22 Status: Ordered calcium carbonate 600 mg oral tablet 1 tablet = 600 mg, By Mouth, 2 times a day, # 180 tablet, 2 Refills, Maintenance, 01/06/23 14:02:00EDT, Tablet, [facility]/pharmacy #[id number], Partial fill upon [...] 01/06/23 14:02:00 EDT, 01/11/22 14:02:00 EDT, Tablet, [facility], Partial fill upon patient request if the prescription is for a schedul... Start Date: 01/11/22 Stop Date: 01/06/23 Status: Ordered Centrum Silver Ultra Women's oral tablet 1 tablet, By Mouth, Daily, 0 Refills, Maintenance, 07/09/18 8:43:55 EST Start Date: 07/09/18 Status: Ordered [facility] SENIOR PROBIOTIC CAPSULE TAKE 2 CAPSULES BY MOUTH TWICE A DAY Start Date: 11/01/21 Status: Ordered diclofenac 1% topical gel 1 application, Topically, 4 times a day, # 100 Gm, 3 Refills, Maintenance, 01/11/22 14:07:00 EDT, Gel, [facility], Partial fill upon patient [...] 450 mL, 5 Refills, 03/02/22 8:08:00 EDT, [facility]/pharmacy #[id number], 155, cm, 02/23/22 [...] 01/02/22 9:03:00 EDT, Route to Pharmacy Electronically, [facility], Partial fill upon patient [...] 01/11/22 13:45:00 EDT, Route to Pharmacy Electronically, [facility]... Start Date: 01/11/22 Status: Ordered gabapentin 300 mg oral capsule 300 mg, 1, capsule, By Mouth, 3 times a day, # 90 capsule, Refills 2, Tot. Refills 2, Maintenance, 02/20/22 7:44:00 EDT, Route to Pharmacy Electronically, [facility]/pharmacy #[id number], Partial fill upon patient request if the prescription is for a schedule II o... Start Date: 02/20/22 Stop Date: 05/21/22 Status: Ordered Juzo Compression Hose Juzo Compression Hose, See Instructions, # 2 each, Refills 2, Tot. Refills 2, Maintenance, 20-30mmghg FF Petite (short),Kyhfs-fhm-rbfw, soft knee, black silicone Stock code [id number] Part #[id number], Size III. [facility] [id number], 12/07/21 11:32:00 EDT,... Start Date: 12/07/21 Status: Ordered levothyroxine 0.088 mg oral tablet 1 tablet = 88 mcg, By Mouth, Daily, # 90 tablet, 1 Refills, Maintenance, 07/13/21 14:09:00 EST, Tablet, [facility], Partial fill upon patient request if the prescription is fora schedule II opioid drug., 153, cm, 06/27/21 7:47:... Start Date: 07/13/21 Status: Ordered lisinopril 5 mg oral tablet 5 mg, 1, tablet, By Mouth, Daily, # 90 tablet, Refills 3, Tot. Refills 3, Maintenance, 02/24/22 15:53:00 EDT, [id number] Partial fill upon patient request if the prescription is for a schedule II opioid drug.... Start Date: 02/24/22 Status: Ordered Potassium Chloride (Eqv-K-Tab) 20 mEq oral tablet, extended release 1 tablet = 20 mEq, By Mouth, Daily, for low potassium, # 10 tablet, 0 Refills, Maintenance, 03/02/22 19:14:00 EDT, [facility]/pharmacy #[id number], Partial fill upon patient request if the prescription is for a schedule II opioid drug., 155, cm, 02/23/22 8:04:00 E... Start Date: 03/02/22 Stop Date: 03/12/22 Status: Ordered Power [place] Lift with [place] split-leg sling Power [place] Lift with [place] split-leg sling, See Instructions, # 1 each, [...] 3 Refills, Maintenance, 02/28/22 8:12:00 EDT, Tablet, [facility]/pharmacy #[id number], Partial fill upon [...] 90 capsule, 2 Refills, 02/28/22 8:13:00 EDT, [facility]/pharmacy #[id number], 155,cm, 02/23/22 8:04:00 EDT, Height, 93.4, kg, 11/01/21 16:52:00 EDT, Dry Weight Start Date: 02/28/22 Status: Ordered Xarelto 20 mg oral tablet 1 tablet = 20 mg, By Mouth, Daily at supper, # 90 tablet, 3 Refills, Maintenance, 02/01/22 12:42:00EDT, Tablet, [facility], Partial fill upon [...]
--- OUTSIDE RECORDS SUMMARY | 2024-03-17 13:29 | XMS_ITS | Continuity of Care Document ---
Author Organization [facility] Address [address] [place] [address]- Care Team Providers Care Campground Cleaning Attendant Name Role Phone Juan Manuel LIM, Kristen Acosta Primary Care Physic juan alberto Encounter [facility] Date(s): 04/26/23 - 05/26/23 [facility] [address] [place] [address]- Allergies, Adverse Reactions, Alerts Substance Reaction Severity Status morphine hives, SOB Active Wellbutrin rash Active Other Environmental Allergy mercury-fillings Active contrast media (iodine-based) itching throughout body Active penicillins hive Active Reglan Active cannabis (Schedule I substance) itching/vomiting Active Immunizations Given and Recorded Vaccine Date Status Refusal Reason pneumococcal 20-valent conjugate vaccine 05/30/22 Recorded [id number] 12y+ bivalent booster vax 05/12/22 Recorded influenza [...] vaccine, inactivated 04/26/09 Arnoldo rded SARS-CoV-2 mRNA (lszllww-ergy-yttnk) vax 03/10/22 Recorded SARS-CoV-2 mRNA (afgsrum-ieoo-hpmnv) vax 10/04/21 Recorded SARS-CoV-2 (COVID-19) mRNA BNT-162b2 [...] 1 Refills, Maintenance, 12/11/22 17:34:00 EDT, Tablet, [facility]/pharmacy #[id number], Partial fill upon patient request if the prescription is for a schedule II opioid drug., 155, cm, 10/10/22 13:40:00 E... Start Date: 12/11/22 Status: Ordered baclofen 20 mg oral tablet 20 mg, 1, tablet, By Mouth, 3 times a day, # 270 tablet, Refills 2, Tot. Refills 2, Maintenance, 12/09/22 12:44:00 EDT, Route to Pharmacy Electronically, [facility], Partial fill upon patient request if the prescription is for a... Start Date: 12/09/22 Stop Date: 09/05/23 Status: Ordered bifidobacterium-lactobacillus oral tablet 2 tablet, By Mouth, 2 times a day, [facility] Brand please (Senior Wellness), # 360 tablet, 3 Refills, Maintenance, 08/11/21 17:02:00 EST, Tablet, [facility]/pharmacy #[id number], Partial fill upon patient request if the prescription is for a schedule II opioid drug., 2... Start Date: 08/11/21 Stop Date: 08/06/22 Status: Ordered calcium carbonate 600 mg oral tablet 1 tablet = 600 mg, By Mouth, 2 times a day, # 180 tablet, 2 Refills, Maintenance, 01/06/23 14:02:00EDT, Tablet, [facility]/pharmacy #[id number], Partial fill upon patient request if the prescription is for a schedule II opioid drug., 155, cm, 02/23/22 8:04:00 EDT... Start Date: 01/06/23 Stop Date: 10/03/23 Status: Ordered Centrum Silver Ultra Women's oral tablet 1 tablet, By Mouth, Daily, 0 Refills, Maintenance, 07/09/18 8:43:55 EST Start Date: 07/09/18 Status: Ordered [facility] SENIOR PROBIOTIC CAPSULE TAKE 2 CAPSULES BY MOUTH TWICE A DAY Start Date: 11/01/21 Status: Ordered [facility] Senior Probiotic Capsule [facility] Senior Probiotic Capsule, See Instructions, # [...] 450 mL, 5 Refills, 03/02/22 8:08:00 EDT, [facility]/pharmacy #[id number], 155, cm, 02/23/22 8:04:00 EDT, [...] Refills, Soft Stop, 03/27/23 18:43:00 EDT, Tablet, [facility]/pharmacy #[id number], Partial fill upon patient request if the prescription is for a schedule II opioid... Start Date: 03/27/23 Status: Ordered fluconazole 150 mg oral tablet 1 tablet = 150 mg, By Mouth, Every week, # 4 tablet, 1 Refills, Soft Stop, 05/26/22 8:59:00 EDT, Tablet, [facility]/pharmacy #[id number], Partial fill upon patient request [...] Maintenance,02/15/23 7:44:00 EDT, Route to Pharmacy Electronically, [facility], Partial fill upon patient request if the prescription is for... Start Date: 02/15/23 Stop Date: 11/12/23 Status: Ordered Juzo Compression Hose Juzo Compression Hose, See Instructions, # 2 each, Refills 2, Tot. Refills 2, Maintenance, Juzo Compression Hose 2 pairs egeom-max-qdlv Soft Knee FF Petite 20-30 mmHg Silicone, Black Stock Code [id number] I I I Part #[id number] Size I I I SKU... Start Date: 03/12/23 Status: Ordered levothyroxine 0.088 mg oral tablet 1 tablet = 88 mcg, By Mouth, Daily, # 90 tablet, 3 Refills, Maintenance, 03/15/23 17:17:00 EDT, Tablet, [facility], Partial fill upon patient request if the prescription is fora schedule II opioid drug., 155, cm, 03/15/23 17:11... Start Date: 03/15/23 Status: Ordered lisinopril 5 mg oral tablet 1, tablet, By Mouth, Daily, # 90 tablet, Refills 3, Tot. Refills 3, Maintenance, 03/15/23 17:16:00 EDT, Route to Pharmacy Electronically, [facility], 155, cm, 03/15/23 17:11:00EDT, Height, 93.4, kg, 11/01/21 16:52:00 EDT, Dry W... Start Date: 03/15/23 Status: Ordered Mapap 500 mg oral capsule See Instructions, TAKE 2 CAPSULES BY MOUTH 4 TIMES A DAY NEEDED FOR PAIN, # 480 capsule, 0 Refills, Maintenance, 03/12/23 9:16:00 EDT, [facility]/pharmacy #[id number], 155, cm, 10/10/22 13:40:00 EST, Height, 93.4, kg, 11/01/21 16:52:00 EDT, Dry Weight Start Date: 03/12/23 Status: Ordered Power [place] Lift with [place] split-leg sling Power [place] Lift with [place] split-leg sling, See Instructions, # 1 each, [...] 5 Refills, Maintenance, 12/11/22 17:34:00 EDT, Tablet, [facility]/pharmacy #[id number], Partial fill upon patient request [...] Team Personnel Name: Juliann Rich RN Position: [facility] RN Member Role: Primary Care Nurse Name: Elsa Allen NP Position: Reference Physician Member Role: Primary Care Nurse Address: Address: [address] [place] [address] [address] [place] [address]- Name: Emma Mendoza RN Position: [facility] AMB Nurse Member Role: Primary Care Nurse Name: Juan Manuel LIM, Kristen Acosta Position: [facility] Physician - Primary Care Member Role: PCP Address: Address: [address] [place] [address]- Name: Komal Goodrich Position: [facility] Outreach Member Role: Lifetime Consulting Physician Name: Godfrey Cano Position: [facility] RN Member Role: Primary Care Nurse Name: Anette Miranda RN Position: [facility] Onco RN Member Role: Primary Care Nurse Care Team Related Persons Name: DIOMEDES WARNER Address: [address] [place] [address] Name: MOO HOWELL Address: [address] [place] [address] Name: MARLON GENTILE
--- OUTSIDE RECORDS SUMMARY | 2024-03-17 13:29 | XMS_ITS | Continuity of Care Document ---
Author Organization [facility] Address [address] [place] [address], [address] [place] [address]- Care Team Providers Care Publications Production Supervisor Name Role Phone Juan Manuel LIM, Kristen Acosta Primary Care Physic juan alberto Encounter [facility] [place] [facility] Date(s): 08/22/22 - 09/21/22 [facility] [address] [place] [address], [address] [place] [address]- Allergies, Adverse Reactions, Alerts Substance Reaction Severity Status morphine hives, SOB Active penicillins hive Active Wellbutrin rash Active Reglan Active cannabis (Schedule I substance) itching/vomiting Active Other Environmental Allergy mercury-fillings Active contrast media (iodine-based) itching throughout body Active Immunizations Given and Recorded Vaccine Date Status Refusal Reason pneumococcal 20-valent conjugate vaccine 05/30/22 Recorded [id number] 12y+ bivalent booster vax 05/12/22 Recorded influenza [...] vaccine, inactivated 04/26/09 Arnoldo rded SARS-CoV-2 mRNA (glxbopl-vybg-sqxah) vax 03/10/22 Recorded SARS-CoV-2 mRNA (ncbbdvq-josy-cnhpu) vax 10/04/21 Recorded SARS-CoV-2 (COVID-19) mRNA BNT-162b2 [...] tablet, 0 Refills, Maintenance, 09/13/22 9:11:00EST, Tablet, [facility][id number], Partial fill upon patient request if the prescription is for a schedule II opioid drug., 155, cm, 07/12/22 14:10:00 ES... Start Date: 09/13/22 Status: Ordered baclofen 20 mg oral tablet 20 mg, 1, tablet, By Mouth, 3 times a day, # 270 tablet, Refills 2, Tot. Refills 2, Maintenance, 12/09/22 12:44:00 EDT, Route to Pharmacy Electronically, [facility], Partial fill upon patient request if the prescription is for a... Start Date: 12/09/22 Stop Date: 09/05/23 Status: Ordered baclofen 20 mg oral tablet 20 mg, 1, tablet, By Mouth, 3 times a day, for 90 days, # 270 tablet, Refills 2, Tot. Refills 2, Hard Stop 12/09/22 12:44:00 EDT, 03/14/22 12:44:00 EDT, [facility], [id number], Partial fill upon patient request if the pre... Start Date: 03/14/22 Stop Date: 12/09/22 Status: Ordered bifidobacterium-lactobacillus oral tablet 2 tablet, By Mouth, 2 times a day, [facility] Brand please (Senior Wellness), # 360 tablet, 3 Refills, Maintenance, 08/11/21 17:02:00 EST, Tablet, [facility][id number], Partial fill upon patient request if the prescription is for a schedule II opioid drug., 2... Start Date: 08/11/21 Stop Date: 08/06/22 Status: Ordered calcium carbonate 600 mg oral tablet 1 tablet = 600 mg, By Mouth, 2 times a day, # 180 tablet, 2 Refills, Maintenance, 01/06/23 14:02:00EDT, Tablet, [id number], Partial fill upon patient request if the prescription is for a schedule II opioid drug., 155, cm, 02/23/22 8:04:00 EDT... Start Date: 01/06/23 Stop Date: 10/03/23 Status: Ordered calcium carbonate 600 mg oral tablet 1 tablet = 600 mg, By Mouth, 2 times a day, for 90 days, # 180 tablet, 3 Refills, Hard Stop 01/06/23 14:02:00 EDT, 01/11/22 14:02:00 EDT, Tablet, [facility], Partial fill upon patient request if the prescription is for a schedul... Start Date: 01/11/22 Stop Date: 01/06/23 Status: Ordered Centrum Silver Ultra Women's oral tablet 1 tablet, By Mouth, Daily, 0 Refills, Maintenance, 07/09/18 8:43:55 EST Start Date: 07/09/18 Status: Ordered [facility] SENIOR PROBIOTIC CAPSULE TAKE 2 CAPSULES BY MOUTH TWICE A DAY Start Date: 11/01/21 Status: Ordered [facility] Senior Probiotic Capsule [facility] Senior Probiotic Capsule, See Instructions, # 180 [...] 3 Refills, Maintenance, 04/02/22 21:13:00 EDT, Gel, [facility]... Start Date: 04/02/22 Status: Ordered [...] mL, 5 Refills, 03/02/22 8:08:00 EDT, [id number], 155, cm, 02/23/22 8:04:00 EDT, Height, [...] Refills, Soft Stop, 05/26/22 8:59:00 EDT, Tablet, [id number], Partial fill upon patient request if [...] 01/02/22 9:03:00 EDT, Route to Pharmacy Electronically, [facility], Partial fill upon patient request [...] 13:45:00 EDT, [facility] Start Date: 01/11/22 Status: Ordered gabapentin 300 mg oral capsule 300 mg, 1, capsule, By Mouth, 3 times a day, for 90 days, # 270 capsule, Refills 2, Tot. Refills 2,Hard Stop 02/15/23 7:44:00 EDT, 05/21/22 7:44:00 EDT, Route to Pharmacy Electronically, [facility], Partial fill upon patient re... Start Date: 05/21/22 Stop Date: 02/15/23 Status: Ordered gabapentin 300 mg oral capsule 300 mg, 1, capsule, By Mouth, 3 times a day, # 270 capsule, Refills 2, Tot. Refills 2, Maintenance,02/15/23 7:44:00 EDT, Route to Pharmacy Electronically, [facility], Partial fill upon patient request if the prescription is for... Start Date: 02/15/23 Stop Date: 11/12/23 Status: Ordered Juzo Compression Hose Juzo Compression Hose, See Instructions, # 2 each, Refills 2, Tot. Refills 2, Maintenance, 20-30mmghg FF Petite (short),Cvoiz-ljh-zbcg, soft knee, black silicone Stock code [id number] Part #[id number], Size III. [facility] [id number], 12/07/21 11:32:00 EDT,... Start Date: 12/07/21 Status: Ordered levothyroxine 0.088 mg oral tablet 1 tablet = 88 mcg, By Mouth, Daily, # 90 tablet, 1 Refills, Maintenance, 09/08/22 14:26:00 EST, Tablet, [facility], Partial fill upon patient request if the prescription is fora schedule II opioid drug., 155, cm, 07/12/22 14:10... Start Date: 09/08/22 Status: Ordered lisinopril 5 mg oral tablet 5 mg, 1, tablet, By Mouth, Daily, # 90 tablet, Refills 3, Tot. Refills 3, Maintenance, 02/24/22 15:53:00 EDT, Route to Pharmacy Electronically, [id number], Partial fill upon patient request if the prescription is for a schedule II opioid drug.... Start Date: 02/24/22 Status: Ordered Mapap 500 mg oral capsule See Instructions, TAKE 2 CAPSULES BY MOUTH 4 TIMES A DAY NEEDED FOR PAIN, # 480 capsule, 3 Refills, Maintenance, 06/04/22 16:03:00 EDT, [id number], 155, cm, 05/25/22 13:44:00 EDT, Height, 93.4, kg, 11/01/21 16:52:00 EDT, Dry Weight Start Date: 06/04/22 Status: Ordered Potassium Chloride (Eqv-K-Tab) 20 mEq oral tablet, extended release 1 tablet = 20 mEq, By Mouth, Daily, for low potassium, # 10 tablet, 0 Refills, Maintenance, 03/02/22 19:14:00 EDT, [id number], Partial fill upon patient request if the prescription is for a schedule II opioid drug., 155, cm, 02/23/22 8:04:00 E... Start Date: 03/02/22 Stop Date: 03/12/22 Status: Ordered Power Virginia Lift with [place] split-leg sling Power [place] Lift with [place] split-leg sling, See Instructions, # 1 each, [...] 18 tablet, 0Refills, Maintenance, 08/24/22 17:06:00 EST, [id number], Partial fill upon patient request if [...] 11/01/22 17:46:00 EDT, 07/12/22 17:46:00 EST, Tablet, [id number], Partial fill upon pa... Start Date: 07/12/22 Stop Date: 11/01/22 Status: Ordered Provigil 200 mg oral tablet 1 tablet = 200 mg, By Mouth, 2 times a day, takes in am and lunchtime brand name only - dispense aswritten, # 56 tablet, 0 Refills, Maintenance, 09/07/22 14:36:00 EST, Tablet, [id number], Partial fill upon patient request if the prescription... Start Date: 09/07/22 Stop Date: 10/05/22 Status: Ordered Provigil 200 mg oral tablet 1 tablet = 200 mg, By Mouth, 2 times a day, for 28 days, takes in am and lunchtime brand name only - dispense as written, # 56 tablet, 3 Refills, Hard Stop 10/25/22 18:25:00 EDT, 07/05/22 18:25:00 EST, Tablet, [facility], Parti... Start Date: 07/05/22 Stop [...] 90 capsule, 2 Refills, 02/28/22 8:13:00 EDT, [id number], 155,cm, 02/23/22 8:04:00 EDT, Height, 93.4, kg, 11/01/21 16:52:00 EDT, Dry Weight Start Date: 02/28/22 Status: Ordered Xarelto 20 mg oral tablet 1 tablet = 20 mg, By Mouth, Daily at supper, # 90 tablet, 3 Refills, Maintenance, 02/01/22 12:42:00EDT, Tablet, [facility], Partial fill upon patient request [...] Role: Primary Care Nurse Address: Address: [address] [place] [address] [address] [place] [address]- Name: Emma Mendoza RN Position: [facility] RN Member Role: Primary Care Nurse Name: Kristen Zambrano MD Position: [facility] Primary Care Physician Member Role: PCP Address: Address: [address] [address]- Name: Jade Medina Position: S RN Member Role: Primary Care Nurse Name: Komal Goodrich Position: [facility] Outreach Member Role: Lifetime Consulting Physician Name: Godfrey Cano Position: [facility] RN Member Role: Primary Care Nurse Name: Anette Miranda RN Position: [facility] Onco RN Member Role: Primary Care Nurse Care Team Related Persons Name: DIOMEDES WARNER Address: home [address] [place] [address] Name: MOO HOWELL Address: [address] [place] [address] Name: MARLON GENTILE
--- OUTSIDE RECORDS SUMMARY | 2024-03-17 13:29 | XMS_ITS | Continuity of Care Document ---
Author Organization [facility] Address [address] [place] [address]- Care Team Providers Care Residential Advisor Name Role Phone Juan Manuel LIM, Kristen Acosta Primary Care Physic juan alberto Encounter [facility] Date(s): 08/24/22 - 08/31/22 [facility] [address] [place] [address]- [place] Attending Physician: Juan Manuel LIM, Kristen Acosta Allergies, Adverse Reactions, Alerts Substance Reaction Severity Status morphine hives, SOB Active Wellbutrin rash Active Reglan Active contrast media (iodine-based) itching throughout body Active Other Environmental Allergy mercury-fillings Active penicillins hive Active cannabis (Schedule I substance) itching/vomiting Active Immunizations Given and Recorded Vaccine Date Status Refusal Reason pneumococcal 20-valent conjugate vaccine 05/30/22 Recorded [id number] 12y+ bivalent booster vax 05/12/22 Recorded influenza [...] vaccine, inactivated 04/26/09 Arnoldo rded SARS-CoV-2 mRNA (mpephto-xfyl-hmyio) vax 03/10/22 Recorded SARS-CoV-2 mRNA (bgczssg-tgfo-csbja) vax 10/04/21 Recorded SARS-CoV-2 (COVID-19) mRNA BNT-162b2 [...] 1 Refills, Maintenance, 08/24/22 16:47:00 EST, Tablet, [facility], Partial fill upon patient request if the prescription is for a schedule II opioid drug., 155, cm, 06/15... Start Date: 08/24/22 Status: Ordered baclofen 20 mg oral tablet 20 mg, 1, tablet, By Mouth, 3 times a day, # 270 tablet, Refills 2, Tot. Refills 2, Maintenance, 12/09/22 12:44:00 EDT, Route to Pharmacy Electronically, [facility], Partial fill upon patient request if the prescription is for a... Start Date: 12/09/22 Stop Date: 09/05/23 Status: Ordered baclofen 20 mg oral tablet 20 mg, 1, tablet, By Mouth, 3 times a day, for 90 days, # 270 tablet, Refills 2, Tot. Refills 2, Hard Stop 12/09/22 12:44:00 EDT, 03/14/22 12:44:00 EDT, Route to Pharmacy Electronically, [facility]/pharmacy#[id number], Partial fill upon patient request if the pre... Start Date: 03/14/22 Stop Date: 12/09/22 Status: Ordered bifidobacterium-lactobacillus oral tablet 2 tablet, By Mouth, 2 times a day, [facility] Brand please (Senior Wellness), # 360 tablet, 3 Refills, Maintenance, 08/11/21 17:02:00 EST, Tablet, [facility] #[id number], Partial fill upon patient request if the prescription is for a schedule II opioid drug., 2... Start Date: 08/11/21 Stop Date: 08/06/22 Status: Ordered calcium carbonate 600 mg oral tablet 1 tablet = 600 mg, By Mouth, 2 times a day, # 180 tablet, 2 Refills, Maintenance, 01/06/23 14:02:00EDT, Tablet, [facility]/pharm[facility] #[id number], Partial fill upon patient request if the prescription is for a schedule II opioid drug., 155, cm, 02/23/22 8:04:00 EDT... Start Date: 01/06/23 Stop Date: 10/03/23 Status: Ordered calcium carbonate 600 mg oral tablet 1 tablet = 600 mg, By Mouth, 2 times a day, for 90 days, # 180 tablet, 3 Refills, Hard Stop 01/06/23 14:02:00 EDT, 01/11/22 14:02:00 EDT, Tablet, [facility], Partial fill upon patient request if the prescription is for a schedul... Start Date: 01/11/22 Stop Date: 01/06/23 Status: Ordered Centrum Silver Ultra Women's oral tablet 1 tablet, By Mouth, Daily, 0 Refills, Maintenance, 07/09/18 8:43:55 EST Start Date: 07/09/18 Status: Ordered [facility] SENIOR PROBIOTIC CAPSULE TAKE 2 CAPSULES BY MOUTH TWICE A DAY Start Date: 11/01/21 Status: Ordered [facility] Senior Probiotic Capsule [facility] Senior Probiotic Capsule, See Instructions, # 180 [...] Maintenance, 04/02/22 21:13:00 EDT, Gel, [facility]... Start Date: 04/02/22 Status: Ordered [...] 5 Refills, 03/02/22 8:08:00 EDT, [facility]/pharmacy #[id number], 155, cm, 02/23/22 8:04:00 EDT, Height, [...] Stop, 05/26/22 8:59:00 EDT, Tablet, [facility] #[id number], Partial fill upon patient request if [...] 01/02/22 9:03:00 EDT, Route to Pharmacy Electronically, [facility], Partial fill upon patient request [...] 01/11/22 13:45:00 EDT, Route to Pharmacy Electronically, [facility]... Start Date: 01/11/22 Status: Ordered gabapentin 300 mg oral capsule 300 mg, 1, capsule, By Mouth, 3 times a day, # 270 capsule, Refills 2, Tot. Refills 2, Maintenance,05/21/22 7:44:00 EDT, Route to Pharmacy Electronically, [facility], Partial fill upon patient request if the prescription is for... Start Date: 05/21/22 Stop Date: 02/15/23 Status: Ordered Juzo Compression Hose Juzo Compression Hose, See Instructions, # 2 each, Refills 2, Tot. Refills 2, Maintenance, 20-30mmghg FF Petite (short),Bzmla-trq-nksg, soft knee, black silicone Stock code [id number] Part #[id number], Size III. [facility] [id number], 12/07/21 11:32:00 EDT,... Start Date: 12/07/21 Status: Ordered levothyroxine 0.088 mg oral tablet 1 tablet = 88 mcg, By Mouth, Daily, # 90 tablet, 0 Refills, Maintenance, 07/26/22 16:49:00 EST, Tablet, [facility] Partial fill upon patient request if the prescription is fora schedule II opioid drug., 155, cm, 07/12/22 14:10... Start Date: 07/26/22 Status: Ordered lisinopril 5 mg oral tablet 5 mg, 1, tablet, By Mouth, Daily, # 90 tablet, Refills 3, Tot. Refills 3, Maintenance, 02/24/22 15:53:00 EDT, Route to Pharmacy Electronically, [facility] #[id number], Partial fill upon patient request if the prescription is for a schedule II opioid drug.... Start Date: 02/24/22 Status: Ordered Mapap 500 mg oral capsule See Instructions, TAKE 2 CAPSULES BY MOUTH 4 TIMES A DAY NEEDED FOR PAIN, # 480 capsule, 3 Refills, Maintenance, 06/04/22 16:03:00 EDT, [id number], 155, cm, 05/25/22 13:44:00 EDT, Height, 93.4, kg, 11/01/21 16:52:00 EDT, Dry Weight Start Date: 06/04/22 Status: Ordered Potassium Chloride (Eqv-K-Tab) 20 mEq oral tablet, extended release 1 tablet = 20 mEq, By Mouth, Daily, for low potassium, # 10 tablet, 0 Refills, Maintenance, 03/02/22 19:14:00 EDT, [facility] #[id number], Partial fill upon patient request if the prescription is for a schedule II opioid drug., 155, cm, 02/23/22 8:04:00 E... Start Date: 03/02/22 Stop Date: 03/12/22 Status: Ordered Power Virginia Lift with [place] split-leg sling Power Virginia Lift with [place] split-leg sling, See Instructions, # 1 each, [...] 18 tablet, 0Refills, Maintenance, 08/24/22 17:06:00 EST, [facility] #[id number], Partial fill upon patient request if the prescription is for a schedule II opioid drug... Start Date: 08/24/22 Status: Ordered Provigil 200 mg oral tablet 1 tablet = 200 mg, By Mouth, 2 times a day, takes in am and lunchtime brand name only - dispense aswritten, # 56 tablet, 3 Refills, Maintenance, 07/12/22 17:46:00 EST, Tablet, [facility] #[id number], Partial fill upon patient request if the prescription... Start Date: 07/12/22 Stop Date: 11/01/22 Status: Ordered Provigil 200 mg oral tablet 1 tablet = 200 mg, By Mouth, 2 times a day, for 28 days, takes in am and lunchtime brand name only - dispense as written, # 56 tablet, 3 Refills, Hard Stop 10/25/22 18:25:00 EDT, 07/05/22 18:25:00 EST, Tablet, [facility], Parti... Start Date: 07/05/22 Stop [...] 2 Refills, 02/28/22 8:13:00 EDT, [facility]/pharmacy #[id number], 155,cm, 02/23/22 8:04:00 EDT, Height, 93.4, kg, 11/01/21 16:52:00 EDT, Dry Weight Start Date: 02/28/22 Status: Ordered Xarelto 20 mg oral tablet 1 tablet = 20 mg, By Mouth, Daily at supper, # 90 tablet, 3 Refills, Maintenance, 02/01/22 12:42:00EDT, Tablet, [facility], Partial fill upon patient request [...] lifetime) entered on: 10/31/21 Sex Note * Opal Hunter: PERFORM, SIGN, VERIFY Event Display: Patient Education/Instruction Authored Date: [id number] [facility] Clinical Summary Name CHANEL ACOSTA Age 67 Years 1955 PCP Juan Manuel LIM, Kristen Acosta PCP Visit Date 08/24/2022 14:26:00 Additional Instructions: Scheduled Appointments?? Future Appointments ?*[facility]??ID ?[id number]??[place],??[place],??[address] ?Phone:??--?Fax:??-- ?Appt. Date:??09/29/2022?10:00 AM ?Scheduled Provider:??Elizabeth LIM, Kary ?*[facility] ?[address] ?[address] ?[place],??[place],??[address] ?Phone:??--?Fax:??-- ?Appt. Date:??10/10/2022?1:00 PM ?Scheduled Provider:??Boris LIM , Efrem Acosta Follow-Up Instructions ?? Diagnosis Medications: Please continue your medications until treatment is completed or stopped by your provider. Discuss any questions related to medications with your provider. New Medications [facility], [address] [place] [address] [facility] [place] [id number], [phone] Ascorbic Acid (ascorbic acid 1000 mg oral tablet) 1 tab(s) Oral twice a day. Refills: 1. Next Dose: [facility]/pharmacy #[id number], [address], [place] [id number], [phone] PredniSONE (predniSONE 10 mg oral tablet) 3 tablets x 3 days, 2 tabs x 3 days then 1 tab x 3 days then STOP. Refills: 0. Next Dose: Medications to Continue with No Changes These medications were not printed or sent to your pharmacy Acetaminophen (Mapap 500 mg oral capsule) TAKE 2 CAPSULES BY MOUTH 4 TIMES A DAY NEEDED FOR PAIN. Refills: 3. Next Dose: Baclofen (baclofen 20 mg oral tablet) 1 tab(s) Oral 3 times a day for 90 Days. Refills: 2. Next Dose: Baclofen (baclofen 20 mg oral tablet) 1 tab(s) Oral 3 times a day for 90 Days. Refills: 2. Next Dose: bifidobacterium-lactobacillus (bifidobacterium-lactobacillus oral tablet) 2 tab(s) Oral twice a dayfor 90 Days. [facility] please ([facility]). Refills: 3. Next Dose: Calcium Carbonate (calcium carbonate 600 mg oral tablet) 1 tab(s) Oral twice a day for 90 Days. Refills: 3. Next Dose: Calcium Carbonate (calcium carbonate 600 mg oral tablet) 1 tab(s) Oral twice a day for 90 Days. Refills: 2. Next Dose: Cholecalciferol (Vitamin D3 2000 intl units oral capsule) 1 capsule Oral Daily. Refills: 2. Next Dose: Diclofenac Topical (diclofenac 1% topical gel) 1 uday Topically 4 times a day. Apply 4 gram QID prn to affected pain to dropped foot - not to exceed 16 grams/day/single joint of lower extremities. Refills: 3. Next Dose: Docusate (Enemeez Mini 283 mg [...] Dose: Durable Medical Equipment (Juzo Compression Hose) 20-30mmg hg FF Petite (short),Ntybt-fsn-vglm, soft knee, black silicone Stock code [id number] Part #[id number], Size III. [facility] [id number]. Refills: 2. Next Dose: Durable Medical Equipment (Power [place] Lift with [place] split-leg sling) Dx: Multiple Sclerosis induced Paraplegia Length of time needed: indefinite Purpose: Transfer to/[facility] bed to wheelchair, commode, shower chair. Refills: [...] tab(s) Oral Daily. Refills: 3. Next Dose: Furosemide (furosemide 40 mg oral tablet) 1 tab(s) Oral twice a day. Take as needed for acute episodes of lower extremity edema for 2 days at a time.. Refills: 0. Next Dose: Gabapentin (gabapentin 300 mg oral capsule) 1 capsule Oral 3 times a day for 90 Days. Refills: 2. Next Dose: Levothyroxine (levothyroxine 0.088 mg oral tablet) 1 tab(s) Oral Daily. Refills: 0. Next Dose: Lisinopril (lisinopril 5 mg oral tablet) 1 tab(s) Oral Daily. Refills: 3. Next Dose: Miscellaneous Rx ([facility] Senior Probiotic [...] name only - dispense as written. Refills: 3. Next Dose: Modafinil (Provigil 200 mg oral tablet) 1 tab(s) Oral twice a day for 28 Days. takes in am and lunchtime brand name only - dispense as written. Refills: 3. Next Dose: Multivitamin With Minerals (Centrum Silver Ultra Women's oral tablet) 1 tab(s) Oral Daily. Next Dose: Potassium Chloride (Potassium Chloride (Eqv-K-Tab) 20 mEq oral tablet, extended release) 1 tab(s) Oral Daily for 10 Days. for low potassium. Refills: 0. Next Dose: rivaroxaban (Xarelto 20 mg oral tablet) 1 tab(s) Oral Daily at supper. Refills: 3. Next Dose: rivaroxaban (Xarelto 20 mg oral tablet) 1 tab(s) Oral Daily before dinner. Next Dose: turmeric (Turmeric) 750 Milligram Oral twice a day. Next Dose: Allergy Info:?? contrast media (iodine-based); Other Environmental Allergy; cannabis (Schedule I substance); Reglan; Wellbutrin; penicillins; morphine Medications Given This Visit Future Orders ?No future orders Vital Signs Height Weight BMI Blood Pressure / Temperature Pulse Rate Respiratory Rate 02 Sat Mode of Delivery / You can now view a summary of your hospital visit from the comfort of your home through a free online portal called [employer]. [employer] is a website that allows you to securely view your medical information including discharge summary, medications and follow-up visits. ??You can alsosend a secure electronic message to your doctor???s office to request appointments, renew medications or just ask a question. You can enroll at [email or web address] or register during your next office visit. [...] primary care provider, you may find a [facility] provider by calling [facility] [email or web address] [facility] at [phone]. For information about the plan of care [...] Team Personnel Name: Juliann Rich RN Position: [facility] RN Member Role: Primary Care Nurse Name: Elsa Allen NP Position: Reference Physician Member Role: Primary Care Nurse Address: Address: [address] [place] [address] [address] AM Medical [place], [place] [address] Name: Emma Mendoza RN Position: [facility] RN Member Role: Primary Care Nurse Name: Kristen Zambrano MD Position: [facility] Primary Care Physician Member Role: PCP Address: Address: [address] [place] [id number] Name: Jade Medina Position: S RN Member Role: Primary Care Nurse Name: Komal Goodrich Position: S Outreach Member Role: Lifetime Consulting Physician Name: Godfrey Cano Position: [facility] RN Member Role: Primary Care Nurse Name: Anette Miranda RN Position: [facility] Onco RN Member Role: Primary Care Nurse Care Team Related Persons Name: ALANA, DIOMEDES Address: [address] [place] [address] Name: MOO HOWELL Address: [address] [place] [address] Name: MARLON GENTILE
--- OUTSIDE RECORDS SUMMARY | 2024-03-17 13:29 | XMS_ITS | Continuity of Care Document ---
Author Organization [facility] Address [address] [place] [address]- Care Team Providers Care Placement Director Name Role Phone Juan Manuel LIM, Kristen Acosta Primary Care Physic juan alberto [facility]counter [facility] Date(s): 01/30/23 - 03/01/23 [facility] [address] [place] [address]- Allergies, Adverse Reactions, Alerts Substance Reaction Severity Status morphine hives, SOB Active Wellbutrin rash Active contrast media (iodine-based) itching throughout body Active penicillins hive Active Reglan Active cannabis (Schedule I substance) itching/vomiting Active Other Environmental Allergy mercury-fillings Active Immunizations Given and Recorded Vaccine Date Status Refusal Reason pneumococcal 20-valent conjugate vaccine 05/30/22 Recorded [id number] 12y+ bivalent booster vax 05/12/22 Recorded influenza [...] vaccine, inactivated 04/26/09 Arnoldo rded SARS-CoV-2 mRNA (evwuseu-wyod-bfgte) vax 03/10/22 Recorded SARS-CoV-2 mRNA (bttikmb-qckm-xcwhl) vax 10/04/21 Recorded SARS-CoV-2 (COVID-19) mRNA BNT-162b2 [...] 1 Refills, Maintenance, 12/11/22 17:34:00 EDT, Tablet, [facility]/pharm[facility] #[id number], Partial fill upon patient request if the prescription is for a schedule II opioid drug., 155, cm, 10/10/22 13:40:00 E... Start Date: 12/11/22 Status: Ordered baclofen 20 mg oral tablet 20 mg, 1, tablet, By Mouth, 3 times a day, # 270 tablet, Refills 2, Tot. Refills 2, Maintenance, 12/09/22 12:44:00 EDT, Route to Pharmacy Electronically, [facility], Partial fill upon patient request if the prescription is for a... Start Date: 12/09/22 Stop Date: 09/05/23 Status: Ordered bifidobacterium-lactobacillus oral tablet 2 tablet, By Mouth, 2 times a day, [facility] Brand please ([facility]), # 360 tablet, 3 Refills, Maintenance, [...] DAY Start Date: 11/01/21 Status: Ordered [facility] Senior Probiotic Capsule [facility] Senior Probiotic Capsule, See Instructions, # 180 [...] Soft Stop, 05/26/22 8:59:00 EDT, Tablet, [facility]/pharmacy #[id number], Partial fill [...] 01/17/23 19:36:00 EDT, Route to Pharmacy Electronically, [facility], 155, cm, 10/10/22 [...] Tot. Refills 2, Maintenance, 20-30mmghg FF Petite (short),Fciep-kwg-aeru, soft knee, black silicone Stock code [id number] Part #[id number], Size III. SK [id number], 12/07/21 11:32:00 EDT,... Start Date: 12/07/21 Status: Ordered levothyroxine 0.088 mg oral tablet 1 tablet = 88 mcg, By Mouth, Daily, # 90 tablet, 1 Refills, Maintenance, 09/08/22 14:26:00 EST, Tablet, [facility], Partial fill upon patient request if the prescription is fora schedule II opioid drug., 155, cm, 07/12/22 14:10... Start Date: 09/08/22 Status: Ordered lisinopril 5 mg oral tablet 1, tablet, By Mouth, Daily, # 90 tablet, Refills 1, Maintenance, 01/22/23 21:39:00 EDT, Route to Pharmacy Electronically, [facility], 155, cm, 10/10/22 13:40:00 EST, Height, 93.4,kg, 11/01/21 16:52:00 EDT, Dry Weight Start Date: 01/22/23 Status: Ordered Mapap 500 mg oral capsule See Instructions, TAKE 2 CAPSULES BY MOUTH 4 TIMES A DAY NEEDED FOR PAIN, # 480 capsule, 3 Refills, Maintenance, 06/04/22 16:03:00 EDT, [id number], 155, cm, 05/25/22 13:44:00 EDT, Height, 93.4, kg, 11/01/21 16:52:00 EDT, Dry Weight Start Date: 06/04/22 Status: Ordered Power Virginia Lift with [place] split-leg sling Power Virginia Lift with [place] split-leg sling, See Instructions, # 1 each, [...] 03/22/23 17:39:00 EDT, 10/05/22 17:39:00 EST, Tablet, [facility]/pharm[facility] #[id number], Partial fill upon pa... Start Date: 10/05/22 Stop Date: 03/22/23 Status: Ordered Provigil 200 mg oral tablet 1 tablet = 200 mg, By Mouth, 2 times a day, takes in am and lunchtime brand name only - dispense aswritten, # 56 tablet, 5 Refills, Maintenance, 12/11/22 17:34:00 EDT, Tablet, [facility]/pharmacy #[id number], Partial fill [...] Team Personnel Name: Juliann Rich RN Position: [facility] RN Member Role: Primary Care Nurse Name: Elsa Allen NP Position: Reference Physician Member Role: Primary Care Nurse Address: Address: [address] [place] [address] [address] [place] [address]- Name: Emma Mendoza RN Position: [facility] AMB Nurse Member Role: Primary Care Nurse Name: Juan Manuel LIM, Kristen Acosta Position: [facility] Physician - Primary Care Member Role: PCP Address: Address: [address] [place] [address] Name: Komal Goodrich Position: [facility] Outreach Member Role: Lifetime Consulting Physician Name: Godfrey Cano Position: [facility] RN Member Role: Primary Care Nurse Name: Anette Miranda RN Position: [facility] Onco RN Member Role: Primary Care Nurse Care Team Related Persons Name: DIOMEDES WARNER Address: home [address] [place] [address] Name: MOO HOWELL Address: home [address] [place] [address] Name: MARLON GENTILE
--- OUTSIDE RECORDS SUMMARY | 2024-03-17 13:29 | XMS_ITS | Continuity of Care Document ---
Author Organization [facility] Address [address], [address], [address] [place] [address]- Care Team Providers Care Production Reproduction Manager Name Role Phone Juan Manuel LIM, Kristen December Karla Primary Care Physic juan alberto Encounter [facility] Date(s): 01/14/24 - 02/13/24 [facility] [address], [address] [place] [id number] Allergies, Adverse Reactions, Alerts Substance Reaction Severity Status morphine hives, SOB Active penicillins hive Active Wellbutrin rash Active Reglan Active cannabis (Schedule I substance) itching/vomiting Active contrast media (iodine-based) itching throughout body Active Other Environmental Allergy mercury-fillings Active Immunizations Given and Recorded Vaccine Date Status Refusal Reason SARS-CoV-2(COVID-19)mRNA-LNP vac([id number]) 10/19/23 Recorded SARS-CoV-2(COVID-19)mRNA-LNP vac(ogi118) 07/03/23 Recorded RSV vaccine preF3, recombinant 05/19/23 [...] influenza virus vaccine, inactivated 04/26/09 Arnoldo rded [id number] 12y+ bivalent booster vax 01/23/23 Recorded [id number]-JuP-4aTJG 12y+ bivalent booster vax 05/12/22 Recorded pneumococcal 20-valent conjugate vaccine 05/30/22 Recorded SARS-CoV-2 mRNA (lsyvegp-fexj-ihudc) vax 03/10/22 Recorded SARS-CoV-2 mRNA (jnaxcrm-bsax-gkahu) vax 10/04/21 Recorded SARS-CoV-2 (COVID-19) mRNA BNT-162b2 [...] Maintenance, 08/01/23 13:53:00 EST, Tablet, [facility]/pharmacy #[id number], Partial fill upon patient request if [...] 09/05/23 12:44:00 EST, Route to Pharmacy Electronically, [facility], Partial fill upon patient req... Start Date: 09/05/23 Stop Date: 06/01/24 Status: Ordered baclofen 20 mg oral tablet 20 mg, 1, tablet, By Mouth, 3 times a day, for 90 days, # 270 tablet, Refills 1, Tot. Refills 1, Hard Stop 06/25/24 10:31:00 EST, 12/28/23 10:31:00 EDT, Route to Pharmacy Electronically, [facility], Partial fill upon patient req... Start Date: 12/28/23 Stop Date: 06/25/24 Status: Ordered baclofen 20 mg oral tablet 20 mg, 1, tablet, By Mouth, 3 times a day, # 270 tablet, Refills 0, Tot. Refills 0, Maintenance, 06/25/24 10:31:00 EST, Route to Pharmacy Electronically, [facility] [...] 09/05/23 12:44:00 EST, [id number] Partial fill upon patient request if the pre... Start Date: 09/05/23 Stop Date: 06/01/24 Status: Ordered bifidobacterium-lactobacillus oral tablet 2 tablet, By Mouth, 2 times a day, [facility] Brand please ([facility]), # 360 tablet, 3 Refills, Maintenance, 08/11/21 17:02:00 EST, Tablet, [facility]/pharmacy #[id number], Partial fill upon patient request if the prescription is for a schedule II opioid drug., 2... Start Date: 08/11/21 Stop Date: 08/06/22 Status: Ordered calcium carbonate 600 mg oral tablet 1 tablet = 600 mg, By Mouth, 2 times a day, # 180 tablet, 2 Refills, Maintenance, 01/06/23 14:02:00EDT, Tablet, [facility]/pharmacy #[id number], Partial fill upon patient request if the prescription is for a schedule II opioid drug., 155, cm, 02/23/22 8:04:00 EDT... Start Date: 01/06/23 Stop Date: 10/03/23 Status: Ordered Centrum Silver Ultra Women's oral tablet 1 tablet, By Mouth, Daily, 0 Refills, Maintenance, 07/09/18 8:43:55 EST Start Date: 07/09/18 Status: Ordered [facility] SENIOR PROBIOTIC CAPSULE TAKE 2 CAPSULES BY MOUTH TWICE A DAY Start Date: 11/01/21 Status: Ordered [facility] Senior Probiotic Capsule [facility] Senior Probiotic Capsule, See Instructions, # 180 [...] 5 Refills, 03/02/22 8:08:00 EDT, [facility]/pharmacy #[id number], 155, cm, 02/23/22 8:04:00 EDT, Height, [...] Stop, 03/27/23 18:43:00 EDT, Tablet, [facility]/pharmacy #[id number], Partial fill upon patient request if the prescription is for a schedule II opioid... Start Date: 03/27/23 Status: Ordered fluconazole 150 mg oral tablet 1 tablet = 150 mg, By Mouth, Every week, # 4 tablet, 1 Refills, Soft Stop, 05/26/22 8:59:00 EDT, Tablet, [facility]/pharmacy #[id number], Partial fill upon patient request if [...] 07/03/23 1:01:00 EST, Route to Pharmacy Electronically, [facility], 155, cm, 05/28/23 11:02:00 EDT, Height, 93.4, kg, 11/01/21 16:52:00 EDT, Dry Weight Start Date: 07/03/23 Status: Ordered gabapentin 300 mg oral capsule 300 mg, 1, capsule, By Mouth, 3 times a day, # 270 capsule, Refills 1, Tot. Refills 1, Maintenance,12/28/23 10:30:00 EDT, Route to Pharmacy Electronically, [facility], Partialfill upon patient request if [...] 2, Maintenance, Juzo Compression Hose 2 pairs qyiem-whz-edsd Soft Knee FF Petite 20-30 mmHg Silicone, Black Stock Code [id number] I I I Part #14041 Size I I I SKU... Start Date: 03/12/23 Status: Ordered levothyroxine 0.088 mg oral tablet 1 tablet = 88 mcg, By Mouth, Daily, # 90 tablet, 1 Refills, Maintenance, 10/01/23 17:11:00 EST, Tablet, [facility]/pharmacy #[id number], Partial fill upon patient request if the prescription is for a schedule II opioid drug., 155, cm, 05/28/23 11:02:00 EDT, Height... Start Date: 10/01/23 Status: Ordered lisinopril 5 mg oral tablet 1, tablet, By Mouth, Daily, # 90 tablet, Refills 1, Tot. Refills 1, Maintenance, 10/01/23 17:15:00 EST, Route to Pharmacy Electronically, [facility]/pharmacy #[id number], 155, cm, 05/28/23 11:02:00 EDT, Height, 93.4, kg, 11/01/21 16:52:00 EDT, Dry Weight Start Date: 10/01/23 Status: Ordered Mapap 500 mg oral capsule See Instructions, TAKE 2 CAPSULES BY MOUTH 4 TIMES A DAY NEEDED FOR PAIN, # 480 capsule, 0 Refills, Maintenance, 11/12/23 15:45:00 EDT, [facility]/pharmacy #[id number], 155, cm, 05/28/23 11:02:00 EDT, Height Start Date: 11/12/23 Status: Ordered Power [place] Lift with [place] split-leg sling Power [place] Lift with [place] split-leg sling, See Instructions, # 1 each, [...] Team Personnel Name: Juliann Rich RN Position: [facility] RN Member Role: Primary Care Nurse Name: Elsa Allen NP Position: [facility] Outreach Member Role: Primary Care Nurse Address: Address: [address] [facility] [place] [address]- [place] Name: Emma Mendoza RN Position: [facility] AMB Nurse Member Role: Primary Care Nurse Name: Juan Manuel LIM, Kristen Acosta Position: [facility] Physician - Primary Care Member Role: PCP Address: Address[facility] [place] [address]- Name: Anette Soler RN Position: [facility] Onco RN Member Role: Primary Care Nurse Name: Komal Goodrich Position: [facility] Outreach Member Role: Lifetime Consulting Physician Name: Godfrey Cano Position: [facility] RN Member Role: Primary Care Nurse Care Team Related Persons Name: DIOMEDES WARNER Address: home [address] [place] [address] Name: MOO HOWELL Address: home [address] [place] [address] Name: MARLON GENTILE
--- OUTSIDE RECORDS SUMMARY | 2024-03-17 13:30 | XMS_ITS | Continuity of Care Document ---
Author Organization [facility] Address [address] [place] [address]- Care Team Providers Care Maxillofacial Pathology Name Role Phone Juan Manuel LIM, Kristen Acosta Primary Care Physic juan alberto Encounter [facility] Date[facility]s): 03/08/23 - 04/07/23 [facility] [address] [place] [address]- Allergies, Adverse Reactions, Alerts Substance Reaction Severity Status morphine hives, SOB Active penicillins hive Active Wellbutrin rash Active Reglan Active cannabis (Schedule I substance) itching/vomiting Active Other Environmental Allergy mercury-fillings Active contrast media (iodine-based) itching throughout body Active Immunizations Given and Recorded Vaccine Date Status Refusal Reason pneumococcal 20-valent conjugate vaccine 05/30/22 Recorded [id number] 12y+ bivalent booster vax 05/12/22 Recorded influenza [...] Arnoldo rded influenza virus vaccine, inactivated 04/01/13 Aronldo rded influenza virus vaccine, inactivated 04/01/12 Arnoldo rded influenza virus vaccine, inactivated 04/26/09 Arnoldo rded SARS-CoV-2 mRNA (jlmghku-yexm-gwfvo) vax 03/10/22 Recorded SARS-CoV-2 mRNA (efbhplo-dhxx-nasss) vax 10/04/21 Recorded SARS-CoV-2 (COVID-19) mRNA BNT-162b2 [...] 1 Refills, Maintenance, 12/11/22 17:34:00 EDT, Tablet, [facility]/pharmacy #[id number], Partial [...] Route to Pharmacy Electronically, [facility], Partial fill upon patient request if the prescription is for a... Start Date: 12/09/22 Stop Date: 09/05/23 Status: Ordered bifidobacterium-lactobacillus oral tablet 2 tablet, By Mouth, 2 times a day, [facility] Brand please ([facility]), # 360 tablet, [...] 01/17/23 19:36:00 EDT, Route to Pharmacy Electronically, [facility], 155, cm, 10/10/22 [...] 2, Maintenance, Juzo Compression Hose 2 pairs tplug-eeh-dbjt Soft Knee FF Petite 20-30 mmHg Silicone, Black Stock Code [id number] I I I Part #[id number] Size I I I SKU... Start Date: 03/12/23 Status: Ordered levothyroxine 0.088 mg oral tablet 1 tablet = 88 mcg, By Mouth, Daily, # 90 tablet, 3 Refills, Maintenance, 03/15/23 17:17:00 EDT, Tablet, [facility], Partial fill upon patient request if the prescription is fora schedule II opioid drug., 155, cm, 03/15/23 17:11... Start Date: 03/15/23 Status: Ordered lisinopril 5 mg oral tablet 1, tablet, By Mouth, Daily, # 90 tablet, Refills 3, Tot. Refills 3, Maintenance, 03/15/23 17:16:00 EDT, Route to Pharmacy Electronically, [facility], 155, cm, 03/15/23 17:11:00EDT, Height, 93.4, kg, 11/01/21 16:52:00 EDT, Dry W... Start Date: 03/15/23 Status: Ordered Mapap 500 mg oral capsule See Instructions, TAKE 2 CAPSULES BY MOUTH 4 TIMES A DAY NEEDED FOR PAIN, # 480 capsule, 0 Refills, Maintenance, 03/12/23 9:16:00 EDT, [facility]/pharmacy #[id number], 155, cm, 10/10/22 13:40:00 EST, Height, 93.4, kg, 11/01/21 16:52:00 EDT, Dry Weight Start Date: 03/12/23 Status: Ordered Power Virginia Lift with [place] split-leg sling Power Virginia Lift with [place] split-leg sling, See Instructions, # 1 each, [...] 5 Refills, Maintenance, 12/11/22 17:34:00 EDT, Tablet, [facility]/pharmacy #[id number], Partial [...] Member Role: Primary Care Nurse Address: Address: [address] [place] [address] [address] [place] [address]- Name: Emma Mendoza RN Position: [facility] AMB Nurse Member Role: Primary Care Nurse Name: Juan Manuel LIM, Kristen Acosta Position: [facility] Physician - Primary Care Member Role: PCP Address: Address: [address] [place] [address]- Name: Komal Goodrich Position: [facility] Outreach Member Role: Lifetime Consulting Physician Name: Godfrey Cano Position: [facility] RN Member Role: Primary Care Nurse Name: Anette Miranda RN Position: [facility] Onco RN Member Role: Primary Care Nurse Care Team Related Persons Name: DIOMEDES WARNER Address: home [address] [place] [address] Name: MOO HOWELL Address: home [address] [place] [address] Name: MARLON GENTILE
--- OUTSIDE RECORDS SUMMARY | 2024-03-17 13:30 | XMS_ITS | Continuity of Care Document ---
Author Organization [facility] Address [address] [place] [address]- Care Team Providers Care Asphalt Tar And Gravel Roofer Name Role Phone Rey CENTENO, Javy Lerma Primary Care Physician [place] [facility] 04/25/21 - 05/02/21 [facility] [address] [place], [place] [address] Attending Physician: Juan Manuel LIM, Kristen Acosta [...] 0 Refills, Maintenance, 04/25/21 14:08:00 EDT, Tablet, [id number], Partial fill upon [...] 04/05/21 13:39:00 EDT, Route to Pharmacy Electronically, [facility], Partial fill upon patient request if the prescription is for a schedule... Start Date: 04/05/21 Stop Date: 05/05/21 Status: Ordered gabapentin 250 mg/5 mL oral solution 12 mL = 600 mg, By Mouth, 4 times a day, # 1,440 mL, 0 Refills, Maintenance, 02/18/21 10:22:00 EDT,Liquid, [facility]/pharmacy #[id number], Partial fill upon patient request if the prescription is for a scheduleII opioid drug. Ok to dispense similar quantity if... Start Date: 02/18/21 Stop Date: 03/20/21 Status: Ordered levothyroxine 0.088 mg oral tablet 1 tablet = 88 mcg, By Mouth, Daily, # 90 tablet, 1 Refills, Maintenance, 04/05/21 13:40:00 EDT, Tablet, [facility], Partial fill upon patient request if the prescription is fora schedule II opioid drug., 153, cm, 04/04/21 9:04:... Start Date: 04/05/21 Status: Ordered lisinopril 5 mg oral tablet 5 mg, 1, tablet, By Mouth, Daily, # 90 tablet, Refills 1, Tot. Refills 1, Maintenance, 04/05/21 13:40:00 EDT, [place] Pharm[place] tablet, 1 Refills, Maintenance, 04/05/21 13:35:00 EDT, [facility]/pharmacy #[id number], Partial fill upon [...] 0 Refills, Maintenance, 04/05/21 13:30:00 EDT, Tablet, [facility]/pharm[facility] #[id number], Partial fill upon [...] 0 Refills, Maintenance, 04/05/21 13:46:00 EDT, Capsule, [facility]/pharmacy #[id number], Partial fill upon [...] oldest [Reference Range]: 1 Height 153 cm (04/25/21 1:34 PM) Social History Social History Type Response Smoking Status Never smoker entered on: 11/15/14 Sex
--- OUTSIDE RECORDS SUMMARY | 2024-03-17 13:30 | XMS_ITS | Continuity of Care Document ---
Author Organization [facility] Address [address] [place] [address]- Care Team Providers Care Warper Fixer Name Role Phone Kristen Zambrano MD Primary Care Physic juan alberto [place] [facility] [place] 08/03[place]21 - 11/19/21 [facility] [address] [place] [address]- Attending Physician: Dominick Almonte MD Admitting Physician: Dominick Almonte MD Referring Physician: Kristen Zambrano MD Allergies, [...] 04/19/22 17:46:00 EDT, 08/22/21 17:46:00 EST, Capsule, [facility]/pharmacy #[id number], Partial fill upon patient request if the prescription is for a schedul... Start Date: 08/22/21 Stop Date: 04/19/22 Status: Ordered ascorbic acid 1000 mg oral tablet 1 tablet = 1,000 mg, By Mouth, 2 times a day, # 90 tablet, 1 Refills, Maintenance, 08/11/21 17:03:00 EST, Tablet, [facility]/pharmacy #[id number], Partial fill upon patient request if the prescription is for a schedule II opioid drug., 153, cm, 06/27/21 7:47:00 ES... Start Date: 08/11/21 Status: Ordered baclofen 20 mg oral tablet 20 mg, 1, tablet, By Mouth, 3 times a day, # 360 tablet, Refills 1, Tot. Refills 1, Maintenance, 08/02/21 14:09:00 EST, Route to Pharmacy Electronically, [facility], Partial fill upon patient request if the prescription is for a... Start Date: 08/02/21 Status: Ordered bifidobacterium-lactobacillus oral tablet 2 tablet, By Mouth, 2 times a day, [facility] Brand please ([facility]), # 360 tablet, 3 Refills, Maintenance, 08/11/21 17:02:00 EST, Tablet, [facility]/pharm[facility] #[id number], Partial fill upon patient request if the prescription is for a schedule II opioid drug., 2... Start Date: 08/11/21 Stop Date: 08/06/22 Status: Ordered calcium carbonate 600 mg oral tablet 1 tablet = 600 mg, By Mouth, 2 times a day, for 90 days, # 180 tablet, 1 Refills, Hard Stop 01/09/22 14:17:00 EDT, 07/13/21 14:17:00 EST, Tablet, [facility], Partial fill upon patient request if the prescription is for a schedul... Start Date: 07/13/21 Stop Date: 01/09/22 Status: Ordered Centrum Silver Ultra Women's oral tablet 1 tablet, By Mouth, Daily, 0 Refills, Maintenance, 07/09/18 8:43:55 EST Start Date: 07/09/18 Status: Ordered [facility] SENIOR PROBIOTIC CAPSULE TAKE 2 CAPSULES [...] STILL NEEDED, # 450 mL, 0 Refills, [id number], 153, cm, 08/30/21 16:43:00 EST, Height Start [...] 08/02/21 14:08:00 EST, Route to Pharmacy Electronically, [facility], Partial fill upon patient request if the prescription is... Start Date: 08/02/21 Status: Ordered levothyroxine 0.088 mg oral tablet 1 tablet = 88 mcg, By Mouth, Daily, # 90 tablet, 1 Refills, Maintenance, 07/13/21 14:09:00 EST, Tablet, [facility], Partial fill upon patient request if the prescription is fora schedule II opioid drug., 153, cm, 06/27/21 7:47:... Start Date: 07/13/21 Status: Ordered lisinopril 5 mg oral tablet 5 mg, 1, tablet, By Mouth, Daily, # 90 tablet, Refills 1, Tot. Refills 1, Maintenance, 07/13/21 14:08:00 EST, Route to Pharmacy Electronically, [facility], Partial fill upon patient request if the prescription is for a schedule... Start Date: 07/13/21 Status: Ordered Power [place] Lift with [place] split-leg sling Power Virginia Lift with [place] split-leg sling, See Instructions, # 1 each, Refills 0, Tot. Refills 0, Maintenance, Dx: Multiple Sclerosis induced Paraplegia Length of time needed: indefinite Purpose: Transfer to/[facility] bed to wheelchair, commode,... Start Date: 08/16/21 Status: Ordered Provigil 200 mg oral tablet 1 tablet = 200 mg, By Mouth, 2 times a day, takes in am and lunchtime brand name only - dispense aswritten, # 56 tablet, 1 Refills, Maintenance, 07/14/21 17:19:00 EST, Tablet, [facility], Partial fill upon patient request if t... Start Date: 07/14/21 Stop Date: 09/08/21 Status: Ordered Turmeric = 750 mg, By Mouth, 2 times a day, 0 Refills, Maintenance, 07/09/18 8:47:35 EST Start Date: 07/09/18 Status: Ordered Vitamin D3 2000 intl units oral capsule 1 capsule, By Mouth, Daily, # 90 capsule, 1 Refills, 08/11/21 17:04:00 EST, [facility]/pharmacy #[id number], 153, cm, 06/27/21 7:47:00 EST, [...]
--- OUTSIDE RECORDS SUMMARY | 2024-03-17 13:30 | XMS_ITS | Continuity of Care Document ---
Author Organization [facility] Address [address] [place] [address]- Care Team Providers Care Turner Machine Operator Name Role Phone Juan Manuel LIM, Kristen Acosta Primary Care Physic juan alberto [facility]counter [facility] Date(s): 09/20/22 - 10/20/22 [facility] [address] [place] [address]- Allergies, Adverse Reactions, Alerts Substance Reaction Severity Status morphine hives, SOB Active penicillins hive Active Wellbutrin rash Active Reglan Active cannabis (Schedule I substance) itching/vomiting Active Other Environmental Allergy mercury-fillings Active contrast media (iodine-based) itching throughout body Active Immunizations Given and Recorded Vaccine Date Status Refusal Reason pneumococcal 20-valent conjugate vaccine 05/30/22 Recorded [id number] 12y+ bivalent booster vax 05/12/22 Recorded influenza [...] vaccine, inactivated 04/26/09 Arnoldo rded SARS-CoV-2 mRNA (uxwqiev-igqo-hsgow) vax 03/10/22 Recorded SARS-CoV-2 mRNA (oxddmmp-kmbj-jjvqz) vax 10/04/21 Recorded SARS-CoV-2 (COVID-19) mRNA BNT-162b2 [...] tablet, 0 Refills, Maintenance, 10/05/22 9:35:00EST, Tablet, [facility]/pharmacy #[id number], Partial fill upon patient request if the prescription is for a schedule II opioid drug., 155, cm, 09/26/22 14:02:00 ES... Start Date: 10/05/22 Status: Ordered baclofen 20 mg oral tablet 20 mg, 1, tablet, By Mouth, 3 times a day, # 270 tablet, Refills 2, Tot. Refills 2, Maintenance, 12/09/22 12:44:00 EDT, Route to Pharmacy Electronically, [facility], Partial fill [...] [id number] fill upon patient request if the pre... Start Date: 03/14/22 Stop Date: 12/09/22 Status: Ordered bifidobacterium-lactobacillus oral tablet 2 tablet, By Mouth, 2 times a day, [facility] Brand please (Senior Wellness), # 360 tablet, 3 Refills, Maintenance, 08/11/21 17:02:00 EST, Tablet, [facility]/pharmacy #[id number], Partial fill upon patient request if the prescription is for a schedule II opioid drug., 2... Start Date: 08/11/21 Stop Date: 08/06/22 Status: Ordered calcium carbonate 600 mg oral tablet 1 tablet = 600 mg, By Mouth, 2 times a day, # 180 tablet, 2 Refills, Maintenance, 01/06/23 14:02:00EDT, Tablet, [facility]/pharmacy #[id number], Partial fill upon patient [...] 14:02:00 EDT, Tablet, [facility], Partial fill upon patient request if the prescription is for a schedul... Start Date: 01/11/22 Stop Date: 01/06/23 Status: Ordered Centrum Silver Ultra Women's oral tablet 1 tablet, By Mouth, Daily, 0 Refills, Maintenance, 07/09/18 8:43:55 EST Start Date: 07/09/18 Status: Ordered [facility] SENIOR PROBIOTIC CAPSULE TAKE 2 CAPSULES BY MOUTH TWICE A DAY Start Date: 11/01/21 Status: Ordered [facility] Senior Probiotic Capsule [facility] Senior Probiotic Capsule, See Instructions, # 180 [...] 5 Refills, 03/02/22 8:08:00 EDT, [facility]/pharmacy #[id number], 155, cm, 02/23/22 8:04:00 [...] Stop, 05/26/22 8:59:00 EDT, Tablet, [facility]/pharmacy #[id number], Partial fill upon patient [...] to Pharmacy Electronically, [facility], Partial fill upon patient request [...] EDT, [facility] Start Date: 01/11/22 Status: Ordered gabapentin 300 mg oral capsule 300 mg, 1, capsule, By Mouth, 3 times a day, for 90 days, # 270 capsule, Refills 2, Tot. Refills 2,Hard Stop 02/15/23 7:44:00 EDT, 05/21/22 7:44:00 EDT, Route to Pharmacy Electronically, [facility], Partial fill upon patient re... Start Date: 05/21/22 Stop Date: 02/15/23 Status: Ordered gabapentin 300 mg oral capsule 300 mg, 1, capsule, By Mouth, 3 times a day, # 270 capsule, Refills 2, Tot. Refills 2, Maintenance,02/15/23 7:44:00 EDT, Route to Pharmacy Electronically, [facility], Partial fill upon patient request if the prescription is for... Start Date: 02/15/23 Stop Date: 11/12/23 Status: Ordered Juzo Compression Hose Juzo Compression Hose, See Instructions, # 2 each, Refills 2, Tot. Refills 2, Maintenance, 20-30mmghg FF Petite (short),Ydqfy-wxt-rqws, soft knee, black silicone Stock code [id number] Part #[id number], Size III. [facility] [id number], 12/07/21 11:32:00 EDT,... Start Date: 12/07/21 Status: Ordered levothyroxine 0.088 mg oral tablet 1 tablet = 88 mcg, By Mouth, Daily, # 90 tablet, 1 Refills, Maintenance, 09/08/22 14:26:00 EST, Tablet, [facility], Partial fill upon patient request if the prescription is fora schedule II opioid drug., 155, cm, 07/12/22 14:10... Start Date: 09/08/22 Status: Ordered lisinopril 5 mg oral tablet 5 mg, 1, tablet, By Mouth, Daily, # 90 tablet, Refills 3, Tot. Refills 3, Maintenance, 02/24/22 15:53:00 EDT, Route to Pharmacy Electronically, [facility]/pharmacy #[id number], Partial fill upon patient request if the prescription is for a schedule II opioid drug.... Start Date: 02/24/22 Status: Ordered lisinopril 5 mg oral tablet See Instructions, TAKE 1 TABLET DAILY, # 90 tablet, Refills 1, Maintenance, 09/24/22 19:24:00 EST, Instructions Replace Required Details, Route to Pharmacy Electronically, [facility], 155, cm, 07/12/22 14:10:00 EST, Height, 93.4, k... Start Date: 09/24/22 Status: Ordered Mapap 500 mg oral capsule See Instructions, TAKE 2 CAPSULES BY MOUTH 4 TIMES A DAY NEEDED FOR PAIN, # 480 capsule, 3 Refills, Maintenance, 06/04/22 16:03:00 EDT, [facility] STORE [id number], 155, cm, 05/25/22 13:44:00 EDT, Height, 93.4, kg, 11/01/21 16:52:00 EDT, Dry Weight Start Date: 06/04/22 Status: Ordered Power [place] Lift with [place] split-leg sling Power Virginia Lift with [place] split-leg sling, See Instructions, # 1 each, [...] 11/01/22 17:46:00 EDT, 07/12/22 17:46:00 EST, Tablet, [facility]/pharmacy #[id number], Partial fill upon pa... Start Date: 07/12/22 Stop Date: 11/01/22 Status: Ordered Provigil 200 mg oral tablet 1 tablet = 200 mg, By Mouth, 2 times a day, takes in am and lunchtime brand name only - dispense aswritten, # 56 tablet, 5 Refills, Maintenance, 10/05/22 17:39:00 EST, Tablet, [facility]/pharmacy #[id number], Partial fill upon patient [...] 10/25/22 18:25:00 EDT, 07/05/22 18:25:00 EST, Tablet, [facility], Parti... Start Date: 07/05/22 Stop [...] 2 Refills, 02/28/22 8:13:00 EDT, [facility]/pharmacy #[id number], 155,cm, 02/23/22 8:04:00 EDT, Height, 93.4, kg, 11/01/21 16:52:00 EDT, Dry Weight Start Date: 02/28/22 Status: Ordered Xarelto 20 mg oral tablet 1 tablet = 20 mg, By Mouth, Daily at supper, # 90 tablet, 3 Refills, Maintenance, 02/01/22 12:42:00EDT, Tablet, [facility], Partial fill upon patient request [...] RN Member Role: Primary Care Nurse Name: Elas Allen NP Position: Reference Physician Member Role: Primary Care Nurse Address: Address: [address] [place] [address] [address] [facility] [place] [address]- [place] Name: Emma Mendoza RN Position: [facility] RN Member Role: Primary Care Nurse Name: Juan Manuel LIM, Kristen Acosta Position: [facility] Primary Care Physician Member Role: PCP Address: Address: [address] [place] [id number]- Name: Jade Medina Position: [facility] RN Member Role: Primary Care Nurse Name: Komal Goodrich Position: [facility] Outreach Member Role: Lifetime Consulting Physician Name: Godfrey Cano Position: [facility] RN Member Role: Primary Care Nurse Name: Anette Miranda RN Position: [facility] Onco RN Member Role: Primary Care Nurse Care Team Related Persons Name: DIOMEDES WARNER Address: home [address] [place] [address] Name: MOO HOWELL Address: home [address] [place] [address] Name: MARLON GENTILE
--- OUTSIDE RECORDS SUMMARY | 2024-03-17 13:30 | XMS_ITS | Continuity of Care Document ---
Author Organization [facility] Address [address] [place] [address]- Care Team Providers Care Therapeutic Assistant Name Role Phone Jason CENTENO, Efrem Pickering Primary Care Physician Encounter [facility] Date(s): 11/18/19 - 11/28/19 [facility] [address] [place] [id number] [facility] Attending Physician: Admtr, Ar8 Admitting Physician: Admtr, Ar8 Referring Physician: Admtr, [...]
--- OUTSIDE RECORDS SUMMARY | 2024-03-17 13:30 | XMS_ITS | Continuity of Care Document ---
Author Organization [facility] Address [address] [place] [address]- Care Team Providers Care Rehabilitation Tech Name Role Phone Juan Manuel LIM, Kristen Acosta Primary Care Physic juan alberto Encounter [facility] Date(s): 11/08/23 - 12/08/23 [facility] [address] [place], [place] [address] Allergies, Adverse Reactions, Alerts Substance Reaction Severity Status morphine hives, SOB Active Wellbutrin rash Active Reglan Active contrast media (iodine-based) itching throughout body Active penicillins hive Active cannabis (Schedule I substance) itching/vomiting Active Other Environmental Allergy mercury-fillings Active Immunizations Given and Recorded Vaccine Date Status Refusal Reason SARS-CoV-2(COVID-19)mRNA-LNP vac([id number]) 10/19/23 Recorded SARS-CoV-2(COVID-19)mRNA-LNP vac(min910) 07/03/23 Recorded RSV vaccine preF3, recombinant 05/19/23 [...] influenza virus vaccine, inactivated 04/26/09 Arnoldo rded [id number]-[id number] 12y+ bivalent booster vax 01/23/23 Recorded [id number] 12y+ bivalent booster vax 05/12/22 Recorded pneumococcal 20-valent conjugate vaccine 05/30/22 Recorded SARS-CoV-2 mRNA (meoizpi-duml-jizdc) vax 03/10/22 Recorded SARS-CoV-2 mRNA (dcltxxb-ptsp-wvhzd) vax 10/04/21 Recorded SARS-CoV-2 (COVID-19) mRNA BNT-162b2 [...] 1 Refills, Maintenance, 08/01/23 13:53:00 EST, Tablet, [facility]/pharmacy #[id number], [...] 09/05/23 12:44:00 EST, Route to Pharmacy Electronically, [facility], Partial fill upon patient req... Start Date: 09/05/23 Stop Date: 06/01/24 Status: Ordered baclofen 20 mg oral tablet 20 mg, 1, tablet, By Mouth, 3 times a day, # 270 tablet, Refills 2, Tot. Refills 2, Maintenance, 06/01/24 12:44:00 EDT, Route to Pharmacy Electronically, [facility]/pharmacy #[id number], Partial fill upon patientrequest if the prescription is for a schedule II op... Start Date: 06/01/24 Stop Date: 02/26/25 Status: Ordered baclofen 20 mg oral tablet 20 mg, 1, tablet, By Mouth, 3 times a day, for 90 days, # 270 tablet, Refills 2, Tot. Refills 2, Hard Stop 06/01/24 12:44:00 EDT, 09/05/23 12:44:00 EST, Route to Pharmacy Electronically, [facility]/pharmacy#[id number], Partial fill upon patient request if the pre... Start Date: 09/05/23 Stop Date: 06/01/24 Status: Ordered bifidobacterium-lactobacillus oral tablet 2 tablet, By Mouth, 2 times a day, [facility] Brand please ([facility] Wellness), # 360 tablet, 3 Refills, [...] Refills, Soft Stop, 03/27/23 18:43:00 EDT, Tablet, [facility]/pharmacy #[id number], [...] 07/03/23 1:01:00 EST, Route to Pharmacy Electronically, [facility], 155, cm, 05/28/23 [...] Maintenance,02/15/23 7:44:00 EDT, Route to Pharmacy Electronically, [facility], Partial fill upon patient request if the prescription is for... Start Date: 02/15/23 Stop Date: 11/12/23 Status: Ordered Juzo Compression Hose Juzo Compression Hose, See Instructions, # 2 each, Refills 2, Tot. Refills 2, Maintenance, Juzo Compression Hose 2 pairs gtjvc-pro-snxn Soft Knee FF Petite 20-30 mmHg Silicone, Black Stock Code [id number] I I I Part #52999 Size I I I SKU... Start Date: 03/12/23 Status: Ordered levothyroxine 0.088 mg oral tablet 1 tablet = 88 mcg, By Mouth, Daily, # 90 tablet, 1 Refills, Maintenance, 10/01/23 17:11:00 EST, Tablet, [facility]/pharmacy #[id number], Partial fill upon patient request if the prescription is for a schedule II opioid drug., 155, cm, 05/28/23 11:02:00 EDT, Height... Start Date: 10/01/23 Status: Ordered lisinopril 5 mg oral tablet 1, tablet, By Mouth, Daily, # 90 tablet, Refills 1, Tot. Refills 1, Maintenance, 10/01/23 17:15:00 EST, Route to Pharmacy Electronically, [facility]/pharmacy #[id number], 155, cm, 05/28/23 11:02:00 EDT, Height, 93.4, kg, 11/01/21 16:52:00 EDT, Dry Weight Start Date: 10/01/23 Status: Ordered Mapap 500 mg oral capsule See Instructions, TAKE 2 CAPSULES BY MOUTH 4 TIMES A DAY NEEDED FOR PAIN, # 480 capsule, 0 Refills, Maintenance, 11/12/23 15:45:00 EDT, [facility]/pharmacy #[id number], 155, cm, 05/28/23 11:02:00 EDT, Height Start Date: 11/12/23 Status: Ordered Power [place] Lift with [place] split-leg sling Power [place] Lift with [place] split-leg sling, See Instructions, # 1 each, [...] Team Personnel Name: Juliann Rich RN Position: [facility] RN Member Role: Primary Care Nurse Name: Elsa Allen NP Position: [facility] Outreach Member Role: Primary Care Nurse Address: Address: [address] [place] [address]- Name: Emma Mendoza RN Position: [facility] AMB Nurse Member Role: Primary Care Nurse Name: Juan Manuel LIM, Kristen Acosta Position: [facility] Physician - Primary Care Member Role: PCP Address: Address: [address] [place] [address]- Name: Anette Soler RN Position: [facility] Onco RN Member Role: Primary Care Nurse Name: Komal Goodrich Position: [facility] Outreach Member Role: Lifetime Consulting Physician Name: Godfrey Cano Position: [facility] RN Member Role: Primary Care Nurse Care Team Related Persons Name: DIOMEDES WARNER Address: home [address] [place] [address] Name: MOO HOWELL Address: home [address] [place] [address] Name: MARLON GENTILE
--- OUTSIDE RECORDS SUMMARY | 2024-03-17 13:30 | XMS_ITS | Continuity of Care Document ---
Author Organization [facility] Address [address] [place] [address]- Care Team Providers Care Rigging Foreman Name Role Phone Juan Manuel LIM, Kristen Acosta Primary Care Physic juan alberto Encounter [facility] Date(s): 11/28/21 - 12/28/21 [facility] [address] [place] [address]- Allergies, Adverse Reactions, Alerts Substance Reaction Severity [...] 04/19/22 17:46:00 EDT, 08/22/21 17:46:00 EST, Capsule, [facility]/pharmacy #[id number], Partial fill upon patient request if the prescription is for a schedul... Start Date: 08/22/21 Stop Date: 04/19/22 Status: Ordered ascorbic acid 1000 mg oral tablet 1 tablet = 1,000 mg, By Mouth, 2 times a day, # 90 tablet, 1 Refills, Maintenance, 08/11/21 17:03:00 EST, Tablet, [facility]/pharmacy #[id number], Partial fill upon patient request if the prescription is for a schedule II opioid drug., 153, cm, 06/27/21 7:47:00 ES... Start Date: 08/11/21 Status: Ordered baclofen 20 mg oral tablet 20 mg, 1, tablet, By Mouth, 3 times a day, # 360 tablet, Refills 1, Tot. Refills 1, Maintenance, 08/02/21 14:09:00 EST, Route to Pharmacy Electronically, [facility], Partial fill upon patient request if the prescription is for a... Start Date: 08/02/21 Status: Ordered bifidobacterium-lactobacillus oral tablet 2 tablet, By Mouth, 2 times a day, [facility] Brand please ([facility] Wellness), # 360 tablet, 3 Refills, Maintenance, 08/11/21 17:02:00 EST, Tablet, [facility]/pharmacy #[id number], Partial fill upon patient request if the prescription is for a schedule II opioid drug., 2... Start Date: 08/11/21 Stop Date: 08/06/22 Status: Ordered calcium carbonate 600 mg oral tablet 1 tablet = 600 mg, By Mouth, 2 times a day, for 90 days, # 180 tablet, 1 Refills, Hard Stop 01/09/22 14:17:00 EDT, 07/13/21 14:17:00 EST, Tablet, [facility], Partial fill upon patient request if the prescription is for a schedul... Start Date: 07/13/21 Stop Date: 01/09/22 Status: Ordered Centrum Silver Ultra Women's oral tablet 1 tablet, By Mouth, Daily, 0 Refills, Maintenance, 07/09/18 8:43:55 EST Start Date: 07/09/18 Status: Ordered [facility] SENIOR PROBIOTIC CAPSULE TAKE [...] STILL NEEDED, # 450 mL, 0 Refills, [id number], 153, cm, 08/30/21 16:43:00 EST, Height Start [...] 04/05/21 13:39:00 EDT, Route to Pharmacy Electronically, Pharmacy, Partial fill [...] Replace R... Start Date: 12/21/21 Status: Ordered gabapentin 300 mg oral capsule 300 mg, 1, capsule, By Mouth, Daily at bedtime, # 90 capsule, Refills 2, Tot. Refills 2, Maintenance, 08/02/21 14:08:00 EST, Route to Pharmacy Electronically, Pharmacy, Partial fill upon patient request if the prescription is... Start Date: 08/02/21 Status: Ordered Juzo Compression Hose Juzo Compression Hose, See Instructions, # 2 each, Refills 2, Tot. Refills 2, Maintenance, 20-30mmghg FF Petite (short),Jjwor-jhy-gbsg, soft knee, black silicone Stock code [id number] Part #[id number], Size III. SK [id number], 12/07/21 11:32:00 EDT,... Start Date: 12/07/21 Status: Ordered levothyroxine 0.088 mg oral tablet 1 tablet = 88 mcg, By Mouth, Daily, # 90 tablet, 1 Refills, Maintenance, 07/13/21 14:09:00 EST, Tablet, Pharmacy, Partial fill upon patient request if the prescription is fora schedule II opioid drug., 153, cm, 06/27/21 7:47:... Start Date: 07/13/21 Status: Ordered lisinopril 5 mg oral tablet 5 mg, 1, tablet, By Mouth, Daily, # 90 tablet, Refills 1, Tot. Refills 1, Maintenance, 07/13/21 14:08:00 EST, Route to Pharmacy Electronically, [facility], Partial fill upon patient request if the prescription is for a schedule... Start Date: 07/13/21 Status: Ordered Power [place] Lift with [place] split-leg sling Power [place] Lift with [place] split-leg sling, See Instructions, # 1 each, [...] 1 Refills, Maintenance, 12/09/21 1:28:00 EDT, Tablet, [facility]/pharmacy #[id number], Partial fill upon patient request if the prescription... Start Date: 12/09/21 Stop Date: 02/03/22 Status: Ordered Turmeric = 750 mg, By Mouth, 2 times a day, 0 Refills, Maintenance, 07/09/18 8:47:35 EST Start Date: 07/09/18 Status: Ordered Vitamin D3 2000 intl units oral capsule 1 capsule, By Mouth, Daily, # 90 capsule, 1 Refills, 08/11/21 17:04:00 EST, [facility]/pharmacy #[id number], 153, cm, 06/27/21 [...]
--- OUTSIDE RECORDS SUMMARY | 2024-03-17 13:30 | XMS_ITS | Continuity of Care Document ---
Author Organization [facility] Address [address] [place] [address]- Care Team Providers Care Housekeeper Supervisor Name Role Phone Juan Manuel LIM, Kristen Acosta Primary Care Physic juan alberto Encounter [facility] Date(s): 06/06/23 - 07/06/23 [facility] [address] [place] [address]- Allergies, Adverse Reactions, Alerts Substance Reaction Severity Status morphine hives, SOB Active penicillins hive Active Wellbutrin rash Active Reglan Active cannabis (Schedule I substance) itching/vomiting Active Other Environmental Allergy mercury-fillings Active contrast media (iodine-based) itching throughout body Active Immunizations Given and Recorded Vaccine Date Status Refusal Reason pneumococcal 20-valent conjugate vaccine 05/30/22 Recorded [id number]-[id number] 12y+ bivalent booster vax 05/12/22 Recorded influenza [...] vaccine, inactivated 04/26/09 Arnoldo rded SARS-CoV-2 mRNA (mppgfnh-mrtp-cpgaw) vax 03/10/22 Recorded SARS-CoV-2 mRNA (eqrykhq-pmqz-ghaki) vax 10/04/21 Recorded SARS-CoV-2 (COVID-19) mRNA BNT-162b2 [...] 1 Refills, Maintenance, 12/11/22 17:34:00 EDT, Tablet, [facility]/pharmacy #[id number], Partial [...] Refills, Maintenance, 01/06/23 14:02:00EDT, Tablet, [facility]/pharmacy #[id number], Partial fill [...] Refills, Soft Stop, 03/27/23 18:43:00 EDT, Tablet, [facility]/pharmacy #[id number], Partial [...] 07/03/23 1:01:00 EST, Route to Pharmacy Electronically, [facility], 155, cm, 05/28/23 11:02:00 [...] 2, Maintenance, Juzo Compression Hose 2 pairs geprf-jhq-gutq Soft Knee FF Petite 20-30 mmHg Silicone, Black Stock Code [id number] I I I Part #07727 Size I I I SKU... Start Date: [...] capsule, 0 Refills, Maintenance, 03/12/23 9:16:00 EDT, [facility]/pharmacy #[id number], 155, cm, 10/10/22 13:40:00 EST, Height, 93.4, kg, 11/01/21 16:52:00 EDT, Dry Weight Start Date: 03/12/23 Status: Ordered Power [place] Lift with [place] split-leg sling Power [place] Lift with [place] split-leg sling, See Instructions, # 1 each, [...] 5 Refills, Maintenance, 12/11/22 17:34:00 EDT, Tablet, [facility]/pharmacy #[id number], Partial [...] Team Personnel Name: Juliann Rich RN Position: [facility] RN Member Role: Primary Care Nurse Name: Elsa Allen NP Position: Reference Physician Member Role: Primary Care Nurse Address: Address: [address] [place] [address] [address] [place] [address]- Name: Emma Mendoza RN Position: [facility] AMB Nurse Member Role: Primary Care Nurse Name: Juan Manuel LIM, Kristen Acosta Position: [facility] Physician - Primary Care Member Role: PCP Address: Address: [address] [place] [address]- Name: Komal Goodrich Position: [facility] Outreach Member Role: Lifetime Consulting Physician Name: Godfrey Cano Position: [facility] RN Member Role: Primary Care Nurse Name: Anette Miranda RN Position: [facility] Onco RN Member Role: Primary Care Nurse Care Team Related Persons Name: DIOMEDES WARNER Address: home [address] [place] [address] Name: MOO HOWELL Address: [address] [place] [address] Name: MARLON GENTILE
--- OUTSIDE RECORDS SUMMARY | 2024-03-17 13:30 | XMS_ITS | Continuity of Care Document ---
Author Organization [facility] Address [address] [place] [address]- Care Team Providers Care Public Health Technologist Name Role Phone Juan Manuel LIM, Kristen Acosta Primary Care Physic juan alberto [facility] Date[facility]): 05[facility]23 - 06/04/23 [facility] [address] [place] [address]- Attending Physician: Juan Manuel LIM, Kristen Acosta Allergies, Adverse Reactions, Alerts Substance Reaction Severity Status morphine hives, SOB Active penicillins hive Active Wellbutrin rash Active Reglan Active cannabis (Schedule I substance) itching/vomiting Active Other Environmental Allergy mercury-fillings Active contrast media (iodine-based) itching throughout body Active Immunizations Given and Recorded Vaccine Date Status Refusal Reason pneumococcal 20-valent conjugate vaccine 05/30/22 Recorded [id number] 12y+ bivalent booster vax 05/12/22 Recorded influenza [...] vaccine, inactivated 04/26/09 Arnoldo rded SARS-CoV-2 mRNA (ebsqwgg-aqbh-dtcsf) vax 03/10/22 Recorded SARS-CoV-2 mRNA (gwxghny-yols-qrcfg) vax 10/04/21 Recorded SARS-CoV-2 (COVID-19) mRNA BNT-162b2 [...] 1 Refills, Maintenance, 12/11/22 17:34:00 EDT, Tablet, [facility]/pharmacy #[id number], Partial fill upon patient request if the prescription is for a schedule II opioid drug., 155, cm, 10/10/22 13:40:00 E... Start Date: 12/11/22 Status: Ordered baclofen 20 mg oral tablet 20 mg, 1, tablet, By Mouth, 3 times a day, # 270 tablet, Refills 2, Tot. Refills 2, Maintenance, 12/09/22 12:44:00 EDT, Route to Pharmacy Electronically, [facility], Partial fill upon patient request if the prescription is for a... Start Date: 12/09/22 Stop Date: 09/05/23 Status: Ordered bifidobacterium-lactobacillus oral tablet 2 tablet, By Mouth, 2 times a day, [facility] Brand please ([facility] Wellness), # 360 tablet, 3 Refills, Maintenance, 08/11/21 17:02:00 EST, Tablet, [facility]/pharmacy #[id number], Partial fill upon patient request if the prescription is for a schedule II opioid drug., 2... Start Date: 08/11/21 Stop Date: 08/06/22 Status: Ordered calcium carbonate 600 mg oral tablet 1 tablet = 600 mg, By Mouth, 2 times a day, # 180 tablet, 2 Refills, Maintenance, 01/06/23 14:02:00EDT, Tablet, [facility]/pharmacy #[id number], Partial fill upon patient request if the prescription is for a schedule II opioid drug., 155, cm, 02/23/22 8:04:00 EDT... Start Date: 01/06/23 Stop Date: 10/03/23 Status: Ordered Centrum Silver Ultra Women's oral tablet 1 tablet, By Mouth, Daily, 0 Refills, Maintenance, 07/09/18 8:43:55 EST Start Date: 07/09/18 Status: Ordered [facility] SENIOR PROBIOTIC CAPSULE TAKE 2 CAPSULES BY MOUTH TWICE A DAY Start Date: 11/01/21 Status: Ordered [facility] Senior Probiotic Capsule [facility] Senior Probiotic Capsule, See Instructions, [...] 450 mL, 5 Refills, 03/02/22 8:08:00 EDT, [facility]/pharmacy #[id number], 155, cm, 02/23/22 8:04:00 [...] Refills, Soft Stop, 03/27/23 18:43:00 EDT, Tablet, [facility]/pharmacy #[id number], Partial fill upon patient request if the prescription is for a schedule II opioid... Start Date: 03/27/23 Status: Ordered fluconazole 150 mg oral tablet 1 tablet = 150 mg, By Mouth, Every week, # 4 tablet, 1 Refills, Soft Stop, 05/26/22 8:59:00 EDT, Tablet, [facility]/pharmacy #[id number], Partial fill upon patient [...] Maintenance,02/15/23 7:44:00 EDT, Route to Pharmacy Electronically, [facility], Partial fill upon patient request if the prescription is for... Start Date: 02/15/23 Stop Date: 11/12/23 Status: Ordered Juzo Compression Hose Juzo Compression Hose, See Instructions, # 2 each, Refills 2, Tot. Refills 2, Maintenance, Juzo Compression Hose 2 pairs wgkvs-ykk-xbtf Soft Knee FF Petite 20-30 mmHg Silicone, Black Stock Code [id number] I I I Part #[id number] Size I I I SKU... Start Date: 03/12/23 Status: Ordered levothyroxine 0.088 mg oral tablet 1 tablet = 88 mcg, By Mouth, Daily, # 90 tablet, 3 Refills, Maintenance, 03/15/23 17:17:00 EDT, Tablet, [facility], Partial fill upon patient request if the prescription is fora schedule II opioid drug., 155, cm, 03/15/23 17:11... Start Date: 03/15/23 Status: Ordered lisinopril 5 mg oral tablet 1, tablet, By Mouth, Daily, # 90 tablet, Refills 3, Tot. Refills 3, Maintenance, 03/15/23 17:16:00 EDT, Route to Pharmacy Electronically, [facility], 155, cm, 03/15/23 17:11:00EDT, Height, 93.4, kg, 11/01/21 16:52:00 EDT, Dry W... Start Date: 03/15/23 Status: Ordered Mapap 500 mg oral capsule See Instructions, TAKE 2 CAPSULES BY MOUTH 4 TIMES A DAY NEEDED FOR PAIN, # 480 capsule, 0 Refills, Maintenance, 03/12/23 9:16:00 EDT, [facility]/pharmacy #[id number], 155, cm, 10/10/22 13:40:00 EST, Height, 93.4, kg, 11/01/21 16:52:00 EDT, Dry Weight Start Date: 03/12/23 Status: Ordered Power Virginia Lift with Arrey split-leg sling Power Virginia Lift with Arrey split-leg sling, See Instructions, # 1 each, [...] 5 Refills, Maintenance, 12/11/22 17:34:00 EDT, Tablet, [facility]/pharmacy #[id number], Partial fill upon patient [...] discharge Confirmed Active Vaginal odor Confirmed Active Vital Signs Most recent to oldest [Reference Range]: 1 Height 155 cm (05/28/23 11:02 AM) Social History Social History Type Response Smoking Status Never (less than 100 in lifetime) entered on: 10/31/21 Sex Note * Waleska Clark: PERFORM, SIGN, VERIFY Event Display: Patient Education/Instruction Authored Date: [id number] [facility] *[facility] Clinical Summary Name CHANEL ACOSTA Age 68 Years 1955 PCP Juan Manuel LIM, Kristen Acosta PCP Visit Date 05/28/2023 10:56:00 Additional Instructions: Scheduled Appointments?? Future Appointments ?No Future Appointments Scheduled Follow-Up Instructions ?? Diagnosis Medications: Please continue your medications until treatment is completed or stopped by your provider. Discuss any questions related to medications with your provider. Medications to Continue with No Changes These [...] a dayfor 90 Days. [facility] Brand please ([employer] Wellness). Refills: 3. Next Dose: Calcium Carbonate (calcium [...] Compression Hose) Juzo Compression Hose 2 pairs ppvau-tkk-pqdq Soft Knee FF Petite 20-30 mmHg Silicone, Black Stock Code [id number] I I I Part #[id number] Size I I I U # [id number]. Refills: 2. Next Dose: Durable Medical Equipment (Power Virginia Lift with Arrey split-leg sling) Dx: Multiple Sclerosis induced Paraplegia [...] 150 mg oral tablet) 1 tab(s) Oral once. repeat dose if still having symptoms in 72 hours. Refills: 0. Next Dose: Fluconazole (fluconazole 150 mg oral [...] Height 155 cm Weight BMI Blood Pressure / Temperature Pulse Rate Respiratory Rate 02 Sat Mode of Delivery / You can now view a summary of your hospital visit from the comfort of your home through a free online portal called [employer]. [employer] is a website that allows you to securely view your medical information including discharge summary, medications and follow-up visits. ??You can alsosend a secure electronic message to your doctor???s office to request appointments, renew medications or just ask a question. You can enroll at [email or web address] or register during your next office [...] primary care provider, you may find a [facility] provider by calling [facility] [employer] Link at [phone]. [facility], in keeping with [facility] guidance, no longer requires face masks for staff, patientsor visitors in most situations. Similar to time spent indoors at other locations, there is the chance that you were exposed to respiratory viruses during your time with us (such as flu or COVID-19).? If you develop symptoms concerning for a viral respiratory infection, please seek testing (and treatment if indicated) from your medical provider or home test kit. For information about the plan of care [...] Team Personnel Name: Juliann Rich RN Position: [facility] RN Member Role: Primary Care Nurse Name: Alejandro CENTENO, Elsa Peterson Position: Reference Physician Member Role: Primary Care Nurse Address: Address: [address] [place] [address] [address] [place] [address]- Name: Emma Mendoza RN Position: [facility] Nurse Member Role: Primary Care Nurse Name: Juan Manuel LIM, Kristen Acosta Position: [facility] Physician - Primary Care Member Role: PCP Address: Address: [address] [place] [address]- Name: Komal Goodrich Position: [facility] Outreach Member Role: Lifetime Consulting Physician Name: Godfrey Cano Position: [facility] RN Member Role: Primary Care Nurse Name: Anette Miranda RN Position: [facility] Onco RN Member Role: Primary Care Nurse Care Team Related Persons Name: DIOMEDES WARNER Address: home [address] [place] [address] Name: MOO HOWELL Address: home [address] [place] [address] Name: MARLON GENTILE
--- OUTSIDE RECORDS SUMMARY | 2024-03-17 13:30 | XMS_ITS | Continuity of Care Document ---
Author Organization [facility] Address [address] [place] [address]- Care Team Providers Care Metals Sales Representative Name Role Phone Juan Manuel LIM, Kristen Acosta Primary Care Physic juan alberto [facility] Date[facility]): 06/[facility]21 - 07/01/21 [facility] [address] [place] [address]- Allergies, Adverse Reactions, Alerts Substance Reaction Severity [...] tablet, By Mouth, Daily, [facility] Brand please ([facility]), # 180 tablet, 3 Refills, Maintenance, 06/27/21 9:09:00 EST, Tablet, [facility]/pharmacy #[id number], Partial fill [...] 0 Refills, Maintenance, 04/25/21 14:08:00 EDT, Tablet, [facility]/pharmacy #[id number], Partial fill [...] 1 Refills, Maintenance, 06/21/21 15:50:00 EST, Tablet, [facility]/pharmacy #[id number], Partial fill upon patient request if the prescription is for a schedule II opioid drug., 153, cm, 04/25/21 13:34:00 EDT, Height Start Date: 06/21/21 Status: Ordered lisinopril 5 mg oral tablet 5 mg, 1, tablet, By Mouth, Daily, # 90 tablet, Refills 1, Tot. Refills 1, Maintenance, 04/05/21 13:40:00 EDT, Route to Pharmacy Electronically, [facility], Partial fill upon patient request if the prescription is for a schedule... Start Date: 04/05/21 Status: Ordered Provigil 200 mg oral tablet 1 tablet = 200 mg, By Mouth, 2 times a day, takes in am and lunchtime brand name only - dispense aswritten, # 180 tablet, 0 Refills, Maintenance, 05/18/21 7:27:00 EDT, Tablet, [facility]/pharmacy #[id number], Partial fill upon patient request if the prescription... Start Date: 05/18/21 Status: Ordered Turmeric = 750 mg, By Mouth, 2 times a day, 0 Refills, Maintenance, 07/09/18 8:47:35 EST Start Date: 07/09/18 Status: Ordered Vitamin D3 2000 intl units oral capsule 1 capsule, By Mouth, Daily, # 90 capsule, 1 Refills, [id number], 153, cm, 04/25/21 13:34:00 EDT, Height Start [...]
--- OUTSIDE RECORDS SUMMARY | 2024-03-17 13:30 | XMS_ITS | Continuity of Care Document ---
Author Organization [facility] Address [address] [facility] [address] [place] [address]- Care Team Providers Care Integrity Assessor Name Role Phone Juan Manuel LIM, Kristen Acosta Primary Care Physic juan alberto [place] [facility] [place] 10/10[place]22 - 10/17/22 [facility] [address] [place] [address] [address] [place] [address]- Attending Physician: Efrem Escalante MD Referring Physician: Kristen Zambrano MD Allergies, Adverse Reactions, Alerts Substance Reaction Severity Status morphine hives, SOB Active penicillins hive Active Wellbutrin rash Active Reglan Active cannabis (Schedule I substance) itching/vomiting Active Other Environmental Allergy mercury-fillings Active contrast media (iodine-based) itching throughout body Active Immunizations Given and Recorded Vaccine Date Status Refusal Reason pneumococcal 20-valent conjugate vaccine 05/30/22 Recorded [id number] 12y+ bivalent booster vax 05/12/22 Recorded influenza [...] vaccine, inactivated 04/26/09 Arnoldo rded SARS-CoV-2 mRNA (lgaveyi-npqs-wnozq) vax 03/10/22 Recorded SARS-CoV-2 mRNA (hiluvdh-fxii-jdkwa) vax 10/04/21 Recorded SARS-CoV-2 (COVID-19) mRNA BNT-162b2 [...] 12/09/22 12:44:00 EDT, Route to Pharmacy Electronically, [facility], Partial fill upon patient request if the prescription is for a... Start Date: 12/09/22 Stop Date: 09/05/23 Status: Ordered baclofen 20 mg oral tablet 20 mg, 1, tablet, By Mouth, 3 times a day, for 90 days, # 270 tablet, Refills 2, Tot. Refills 2, Hard Stop 12/09/22 12:44:00 EDT, 03/14/22 12:44:00 EDT, [id number] fill upon patient request if [...] EDT, [facility] Start Date: 01/11/22 Status: Ordered gabapentin [...] Tot. Refills 2, Maintenance, 20-30mmghg FF Petite (short),Iaidw-mpy-tftg, soft knee, black silicone Stock code [id number] Part #[id number], Size III. [facility] [id number], 12/07/21 11:32:00 EDT,... Start Date: 12/07/21 Status: [...] 06/04/22 16:03:00 EDT, [id number], 155, cm, 05/25/22 13:44:00 EDT, Height, 93.4, kg, 11/01/21 16:52:00 EDT, Dry Weight Start Date: 06/04/22 Status: Ordered Power Virginia Lift with [place] split-leg sling Power Virginia Lift with [place] split-leg sling, See Instructions, # 1 each, [...] 11/01/22 17:46:00 EDT, 07/12/22 17:46:00 EST, Tablet, [facility]/pharmacy #[id number], Partial fill upon pa... [...] tablet, 3 Refills, Maintenance, 02/01/22 12:42:00EDT, Tablet, [facility] oldest [Reference Range]: 1 Height 155 cm (10/10/22 1:40 PM) Oxygen Saturation [94-100 %] 98 % (10/10/22 1:40 PM) Pulse Rate [55-90 bpm] 80 bpm (10/10/22 1:40 PM) Blood Pressure [90-138/55-84 mm Hg] 143/ 91mm Hg *H* (10/10/22 1:40 PM) Blood pressure sites Arm, left (10/10/22 1:40 PM) Weight Obtained Via Bed scale (10/10/22 1:40 PM) Social History Social History Type Response Smoking Status Never (less than 100 in lifetime) entered on: 10/31/21 Sex Patient Care team information Care Team Personnel Name: Juliann Rich RN Position: S RN Member Role: Primary Care Nurse Name: Alejandro CENTENO, Elsa Peterson Position: Reference Physician Member Role: Primary Care Nurse Address: Address: [address] [place] [address] [address] [place] [address]- Name: Emma Mendoza RN Position: [facility] RN Member Role: Primary Care Nurse Name: Juan Manuel LIM, Kristen Acosta Position: [facility] Primary Care Physician Member Role: PCP Address: Address: [address] [place] [address]- Name: Jade Medina Position: S RN Member Role: Primary Care Nurse Name: Komal Goodrich Position: [facility] Outreach Member Role: Lifetime Consulting Physician Name: Godfrey Cano Position: [facility] RN Member Role: Primary Care Nurse Name: Anette Miranda RN Position: [facility] Onco RN Member Role: Primary Care Nurse Care Team Related Persons Name: DIOMEDES WARNER Address: home [address] [place] [address] Name: MOO HOWELL Address: home [address] [place] [address] Name: MARLON GENTILE
--- OUTSIDE RECORDS SUMMARY | 2024-03-17 13:30 | XMS_ITS | Continuity of Care Document ---
Author Organization [facility] Address [address] [place] [address]- Care Team Providers Care Electrical Test Technician Name Role Phone Juan Manuel LIM, Kristen Acosta Primary Care Physic juan alberto [facility] Date[facility]s): 06/26/23 - 07/26/23 [facility] [address] [place] [address]- Allergies, Adverse Reactions, Alerts Substance Reaction Severity Status morphine hives, SOB Active Wellbutrin rash Active contrast media (iodine-based) itching throughout body Active penicillins hive Active Reglan Active cannabis (Schedule I substance) itching/vomiting Active Other Environmental Allergy mercury-fillings Active Immunizations Given and Recorded Vaccine Date Status Refusal Reason pneumococcal 20-valent conjugate vaccine 05/30/22 Recorded [id number] 12y+ bivalent booster vax 05/12/22 Recorded influenza [...] vaccine, inactivated 04/26/09 Arnoldo rded SARS-CoV-2 mRNA (hbzxzku-zymp-qixjl) vax 03/10/22 Recorded SARS-CoV-2 mRNA (zurchar-xcrm-nompf) vax 10/04/21 Recorded SARS-CoV-2 (COVID-19) mRNA BNT-162b2 [...] 1 Refills, Maintenance, 12/11/22 17:34:00 EDT, Tablet, [facility]/pharmacy #[id number], Partial fill upon patient request if the prescription is for a schedule II opioid drug., 155, cm, 10/10/22 13:40:00 E... Start Date: 12/11/22 Status: Ordered baclofen 20 mg oral tablet 20 mg, 1, tablet, By Mouth, 3 times a day, # 270 tablet, Refills 2, Tot. Refills 2, Maintenance, 12/09/22 12:44:00 EDT, Route to Pharmacy Electronically, [facility], Partial fill upon patient request if the prescription is for a... Start Date: 12/09/22 Stop Date: 09/05/23 Status: Ordered bifidobacterium-lactobacillus oral tablet 2 tablet, By Mouth, 2 times a day, [facility] Brand please ([facility]), # 360 tablet, 3 Refills, Maintenance, 08/11/21 17:02:00 EST, Tablet, [facility]/pharmacy #[id number], Partial fill upon patient request if the prescription is for a schedule II opioid drug., 2... Start Date: 08/11/21 Stop Date: 08/06/22 Status: Ordered calcium carbonate 600 mg oral tablet 1 tablet = 600 mg, By Mouth, 2 times a day, # 180 tablet, 2 Refills, Maintenance, 01/06/23 14:02:00EDT, Tablet, [facility]/pharmacy #[id number], Partial fill upon patient request if the prescription is for a schedule II opioid drug., 155, cm, 02/23/22 8:04:00 EDT... Start Date: 01/06/23 Stop Date: 10/03/23 Status: Ordered Centrum Silver Ultra Women's oral tablet 1 tablet, By Mouth, Daily, 0 Refills, Maintenance, 07/09/18 8:43:55 EST Start Date: 07/09/18 Status: Ordered [facility] SENIOR PROBIOTIC CAPSULE TAKE 2 CAPSULES BY MOUTH TWICE A DAY Start Date: 11/01/21 Status: Ordered [facility] Senior Probiotic Capsule [facility] Senior Probiotic Capsule, See Instructions, [...] 450 mL, 5 Refills, 03/02/22 8:08:00 EDT, [facility]/pharmacy #[id number], 155, cm, 02/23/22 8:04:00 [...] Refills, Soft Stop, 03/27/23 18:43:00 EDT, Tablet, [facility]/pharmacy #[id number], Partial fill upon patient request if the prescription is for a schedule II opioid... Start Date: 03/27/23 Status: Ordered fluconazole 150 mg oral tablet 1 tablet = 150 mg, By Mouth, Every week, # 4 tablet, 1 Refills, Soft Stop, 05/26/22 8:59:00 EDT, Tablet, [facility]/pharmacy #[id number], Partial fill upon patient [...] 2, Maintenance, Juzo Compression Hose 2 pairs ihhsy-ldt-jlat Soft Knee FF Petite 20-30 mmHg Silicone, Black Stock Code [id number] I I I Part #[id number] Size I I I SKU... Start Date: 03/12/23 Status: Ordered levothyroxine 0.088 mg oral tablet 1 tablet = 88 mcg, By Mouth, Daily, # 90 tablet, 3 Refills, Maintenance, 03/15/23 17:17:00 EDT, Tablet, [facility], [...] capsule, 0 Refills, Maintenance, 03/12/23 9:16:00 EDT, [facility]/pharmacy #[id number], 155, cm, 10/10/22 13:40:00 EST, Height, 93.4, kg, 11/01/21 16:52:00 EDT, Dry Weight Start Date: 03/12/23 Status: Ordered Power Virginia Lift with [place] split-leg sling Power Virginia Lift with [place] split-leg sling, See Instructions, # 1 each, [...] 5 Refills, Maintenance, 12/11/22 17:34:00 EDT, Tablet, [facility]/pharmacy #[id number], Partial fill upon patient [...] Team Personnel Name: Juliann Rich RN Position: [facility] RN Member Role: Primary Care Nurse Name: Elsa Allen NP Position: Reference Physician Member Role: Primary Care Nurse Address: Address: [address] [place] [address] [address] [place] [address]- Name: Emma Mendoza RN Position: [facility] AMB Nurse Member Role: Primary Care Nurse Name: Juan Manuel LIM, Kristen Acosta Position: [facility] Physician - Primary Care Member Role: PCP Address: Address: [address] [place] [address]- Name: Komal Goodrich Position: [facility] Outreach Member Role: Lifetime Consulting Physician Name: Godfrey Cano Position: [facility] RN Member Role: Primary Care Nurse Name: Anette Miranda RN Position: [facility] Onco RN Member Role: Primary Care Nurse Care Team Related Persons Name: DIOMEDES WARNER Address: [address] [place] [address] Name: MOO HOWELL Address: [address] [place] [address] Name: MARLON GENTILE
--- OUTSIDE RECORDS SUMMARY | 2024-03-17 13:30 | XMS_ITS | Continuity of Care Document ---
Author Organization [facility] Address [address] [place] [address]- Care Team Providers Care Managed Care Provider Name Role Phone Jason CENTENO, Efrem Pickering Primary Care Physician [phone] [place] [facility](s): 11/30/20 - 12/30/20 [facility] [address] [place] [id number] Allergies, Adverse Reactions, Alerts Substance Reaction [...] 8:37:55 EST Start Date: 07/09/18 Status: Ordered Botox 200 units injection See [...] 1 tablet = 200 mg, By Mouth, Daily in AM, # 90 tablet, 0 Refills, Maintenance, 04/07/20 14:23:00 EDT, Tablet Start Date: 04/07/20 Status: Ordered Provigil 200 mg oral tablet [...]
--- OUTSIDE RECORDS SUMMARY | 2024-03-17 13:30 | XMS_ITS | Continuity of Care Document ---
Author Organization [facility] Address [address] [place] [address]- Care Team Providers Care Homoeopath Name Role Phone Jason CENTENO, Efrem Pickering Primary Care Physician Encounter [facility] [id number] Date(s): 04/07/20 - 04/14/20 [facility] [address] [place] [address] [facility] Attending Physician: Navin LIM, Win Toro Referring Physician: Jason CENTENO, Efrem Pickering Allergies, Adverse Reactions, Alerts Substance Reaction Severity [...] oldest [Reference Range]: 1 Height 153 cm (04/07/20 1:29 PM) Oxygen Saturation [94-100 %] 99 % (04/07/20 1:29 PM) Pulse Rate [55-90 bpm] 71 bpm (04/07/20 1:29 PM) Blood Pressure [90-138/55-84 mm Hg] 116/ 76mm Hg (04/07/20 1:29 PM) Temperature [96.8-100.4 DegF] 96.8 DegF (04/07/20 1:29 PM) Blood pressure sites Arm, left (04/07/20 1:29 PM) Temperature Route Temporal (04/07/20 1:29 PM) Social History Social History Type Response Smoking Status Never smoker entered on: 11/15/14 Sex
--- OUTSIDE RECORDS SUMMARY | 2024-03-17 13:30 | XMS_ITS | Continuity of Care Document ---
Author Organization [facility] Address [address] [place] [address]- Care Team Providers Care Director Phone Name Role Phone Juan Manuel LIM, Kristen Acosta Primary Care Physic juan alberto [place] [facility] [place] 02/[place] [facility] [address] [place] [address]- [place] Encounter Diagnosis Osteoporosis(Discharge Diagnosis) - 02/18/24 Paraplegia(Discharge Diagnosis) - 02/18/24 Bilateral leg edema(Discharge Diagnosis) - 02/18/24 Foot pain, left(Discharge Diagnosis) - 02/18/24 Multiple sclerosis(Discharge Diagnosis) - 02/18/24 Chronic saddle pulmonary embolism(Discharge Diagnosis) - 02/18/24 Hypothyroidism(Discharge Diagnosis) - 02/18/24 Hypertension(Discharge Diagnosis) - 02/18/24 Obese class II(Discharge Diagnosis) - 02/18/24 Attending Physician: Juan Manuel LIM, Kristen Acosta Allergies, Adverse Reactions, Alerts Substance Reaction Severity Status morphine hives, SOB Active penicillins hive Active Wellbutrin rash Active Reglan Active cannabis (Schedule I substance) itching/vomiting Active Other Environmental Allergy mercury-fillings Active contrast media (iodine-based) itching throughout body Active Immunizations Given and Recorded Vaccine Date Status Refusal Reason SARS-CoV-2(COVID-19)mRNA-LNP vac([id number]) 10/19/23 Recorded SARS-CoV-2(COVID-19)mRNA-LNP vac([id number]) 07/03/23 Recorded RSV vaccine preF3, recombinant 05/19/23 [...] influenza virus vaccine, inactivated 04/26/09 Arnoldo rded [id number] 12y+ bivalent booster vax 01/23/23 Recorded NURY-OuY-3pLFZ 12y+ bivalent booster vax 05/12/22 Recorded pneumococcal 20-valent conjugate vaccine 05/30/22 Recorded SARS-CoV-2 mRNA (isksaui-ozaq-mttpt) vax 03/10/22 Recorded SARS-CoV-2 mRNA (cmaqlix-tzuk-qmxhb) vax 10/04/21 Recorded SARS-CoV-2 (COVID-19) mRNA BNT-162b2 [...] 1 Refills, Maintenance, 08/01/23 13:53:00 EST, Tablet, [facility]/pharmacy #[id number], Partial fill upon patient request if the prescription is for a schedule II opioid drug., 155, cm, 05/28/23 11:02:00 E... Start Date: 08/01/23 Status: Ordered baclofen 20 mg oral tablet 20 mg, 1, tablet, By Mouth, 3 times a day, # 270 tablet, Refills 0, Tot. Refills 0, Maintenance, 06/25/24 10:31:00 EST, Route to Pharmacy Electronically, [facility], Partial fill upon patient request if the prescription is for a... Start Date: 06/25/24 Stop Date: 09/23/24 Status: Ordered bifidobacterium-lactobacillus oral tablet 2 tablet, By Mouth, 2 times a day, [facility] Brand please (Senior Wellness), # 360 tablet, 3 Refills, Maintenance, 08/11/21 17:02:00 EST, Tablet, [facility]/pharmacy #[id number], Partial fill upon patient request if the prescription is for a schedule II opioid drug., 2... Start Date: 08/11/21 Stop Date: 08/06/22 Status: Ordered calcium carbonate 600 mg oral tablet 1 tablet = 600 mg, By Mouth, 2 times a day, # 180 tablet, 2 Refills, Maintenance, 01/06/23 14:02:00EDT, Tablet, [facility]/pharmacy #[id number], Partial fill upon patient request if the prescription is for a schedule II opioid drug., 155, cm, 02/23/22 8:04:00 EDT... Start Date: 01/06/23 Stop Date: 10/03/23 Status: Ordered Centrum Silver Ultra Women's oral tablet 1 tablet, By Mouth, Daily, 0 Refills, Maintenance, 07/09/18 8:43:55 EST Start Date: 07/09/18 Status: Ordered [facility] SENIOR PROBIOTIC CAPSULE TAKE 2 CAPSULES BY MOUTH TWICE A DAY Start Date: 11/01/21 Status: Ordered Enemeez Mini 283 mg rectal enema See Instructions, USE RECTALLY EVERY DAY NEEDED FOR CONSTIPATION, # 450 mL, 5 Refills, 03/02/22 8:08:00 EDT, [facility]/pharmacy #[id number], 155, cm, 02/23/22 [...] 07/03/23 1:01:00 EST, Route to Pharmacy Electronically, [facility], 155, cm, 05/28/23 11:02:00 EDT, Height, 93.4, kg, 11/01/21 16:52:00 EDT, Dry Weight Start Date: 07/03/23 Status: Ordered gabapentin 300 mg oral capsule 300 mg, 1, capsule, By Mouth, 3 times a day, # 270 capsule, Refills 1, Tot. Refills 1, Maintenance,12/28/23 10:30:00 EDT, Route to Pharmacy Electronically, [facility], Partialfill upon patient request if the prescription is fo... Start Date: 12/28/23 Stop Date: 06/25/24 Status: Ordered Juzo Compression Hose Juzo Compression Hose, See Instructions, # 2 each, Refills 2, Tot. Refills 2, Maintenance, Juzo Compression Hose 2 pairs jqglp-hwo-djeq Soft Knee FF Petite 20-30 mmHg Silicone, Black Stock Code [id number] I I I Part #[id number] Size I I I SKU... Start Date: 03/12/23 Status: Ordered levothyroxine 0.088 mg oral tablet 1 tablet = 88 mcg, By Mouth, Daily, # 90 tablet, 1 Refills, Maintenance, 10/01/23 17:11:00 EST, Tablet, [facility]/pharmacy #[id number], Partial fill upon patient request if the prescription is for a schedule II opioid drug., 155, cm, 05/28/23 11:02:00 EDT, Height... Start Date: 10/01/23 Status: Ordered lisinopril 5 mg oral tablet 1, tablet, By Mouth, Daily, # 90 tablet, Refills 1, Tot. Refills 1, Maintenance, 10/01/23 17:15:00 EST, Route to Pharmacy Electronically, [id number], 155, cm, 05/28/23 11:02:00 EDT, Height, 93.4, kg, 11/01/21 16:52:00 EDT, Dry Weight Start Date: 10/01/23 Status: Ordered Mapap 500 mg oral capsule See Instructions, TAKE 2 CAPSULES BY MOUTH 4 TIMES A DAY NEEDED FOR PAIN, # 480 capsule, 0 Refills, Maintenance, 11/12/23 15:45:00 EDT, [id number], 155, cm, 05/28/23 11:02:00 EDT, Height Start Date: 11/12/23 Status: Ordered Power Virginia Lift with [place] split-leg sling Power Virginia Lift with [place] split-leg sling, See Instructions, # 1 each, Refills 0, Tot. Refills 0, Maintenance, Dx: Multiple Sclerosis induced Paraplegia Length of time needed: indefinite Purpose: Transfer to/[facility] bed to wheelchair, commode,... Start Date: [...] 90 capsule, 1 Refills, 12/11/22 15:16:00 EDT, [facility]/pharmacy #[id number], 155, cm, 10/10/22 13:40:00 EST, Height, 93.4, kg, 11/01/21 16:52:00 EDT, Dry Weight Start Date: 12/11/22 Status: Ordered Xarelto 20 mg oral tablet See Instructions, TAKE 1 TABLET DAILY AT SUPPER, # 90 tablet, 3 Refills, Maintenance, 01/17/23 9:37:00 EDT, [facility], 155, cm, 10/10/22 13:40:00 [...] Effective Dates Health Status Clinical Service Informant Osteoporosis Discharge Diagnosis 02/18/24 Paraplegia Discharge Diagnosis 02/18/24 Bilateral leg edema Discharge Diagnosis 02/18/24 Foot pain, left Discharge Diagnosis 02/18/24 Multiple sclerosis Discharge Diagnosis 02/18/24 Chronic saddle pulmonary embolism Discharge Diagnosis 02/18/24 Hypothyroidism Discharge Diagnosis 02/18/24 Hypertension Discharge Diagnosis 02/18/24 Obese class II Discharge Diagnosis 02/18/24 Vital Signs Most recent to oldest [Reference Range]: 1 Height 155 cm (02/18/24 11:04 AM) Oxygen Saturation [94-100 %] 96 % (02/18/24 11:04 AM) Pulse Rate [55-90 bpm] 74 bpm (02/18/24 11:04 AM) Blood Pressure [90-138/55-84 mm Hg] 111/ 72mm Hg (02/18/24 11:04 AM) Mode of Delivery (Oxygen) Room air (02/18/24 11:04 AM) Blood pressure sites Arm, left (02/18/24 11:04 AM) Social History Social History Type Response Smoking Status Never (less than 100 in lifetime) entered on: 10/31/21 Sex Patient Care team information Care Team Personnel Name: Juliann Rich RN Position: [facility] RN Member Role: Primary Care Nurse Name: Elsa Allen NP Position: [facility] Outreach Member Role: Primary Care Nurse Address: Address: [address] [place] [phone]- [place] Name: Emma Mendoza RN Position: [facility] AMB Nurse Member Role: Primary Care Nurse Name: Juan Manuel LIM, Kristen Acosta Position: [facility] Physician - Primary Care Member Role: PCP Address: Address: [address] [place] [address]- [place] Name: Anette Soler RN Position: [facility] Onco RN Member Role: Primary Care Nurse Name: Komal Goodrich Position: [facility] Outreach Member Role: Lifetime Consulting Physician Name: Godfrey Cano Position: [facility] RN Member Role: Primary Care Nurse Care Team Related Persons Name: DIOMEDES WARNER Address: home [address] [place] [address] Name: MOO HOWELL Address: home [address] [place] [address] Name: MARLON GENTILE
--- OUTSIDE RECORDS SUMMARY | 2024-03-17 13:30 | XMS_ITS | Continuity of Care Document ---
Author Organization [facility] Address [address] [place] [address] [address], [address] [place] [address]- Care Team Providers Care Tool Analyst Name Role Phone Juan Manuel LIM, Kristen Acosta Primary Care Physic juan alberto Encounter [facility] [place] Date(s): 04/03/22 - 05/03/22 [facility] [address] [place] [address] Drive, [address] [place] [address]- Allergies, Adverse Reactions, Alerts Substance Reaction Severity [...] vaccine, inactivated 04/26/09 Arnoldo rded SARS-CoV-2 mRNA (bxsfgjh-dlec-yonfn) vax 03/10/22 Recorded SARS-CoV-2 mRNA (aatibie-cvjl-ivbpw) vax 10/04/21 Recorded SARS-CoV-2 (COVID-19) mRNA BNT-162b2 [...] tablet, 2 Refills, Maintenance, 02/28/22 8:12:00EDT, Tablet, [facility]/pharmacy #[id number], Partial fill upon patient [...] 03/14/22 12:44:00 EDT, Route to Pharmacy Electronically, [facility]/pharmacy#[id number], Partial fill upon patient request if the pre... Start Date: 03/14/22 Stop Date: 12/09/22 Status: Ordered bifidobacterium-lactobacillus oral tablet 2 tablet, By Mouth, 2 times a day, [facility] Brand please (Senior Wellness), # 360 tablet, 3 Refills, Maintenance, 08/11/21 17:02:00 EST, Tablet, [facility]/pharmacy #[id number], Partial fill upon patient request if the prescription is for a schedule II opioid drug., 2... Start Date: 08/11/21 Stop Date: 08/06/22 Status: Ordered calcium carbonate 600 mg oral tablet 1 tablet = 600 mg, By Mouth, 2 times a day, # 180 tablet, 2 Refills, Maintenance, 01/06/23 14:02:00EDT, Tablet, [facility]/pharmacy #[id number], Partial fill upon patient [...] 01/06/23 14:02:00 EDT, 01/11/22 14:02:00 EDT, Tablet, [facility], Partial fill upon patient request if the prescription is for a schedul... Start Date: 01/11/22 Stop Date: 01/06/23 Status: Ordered Centrum Silver Ultra Women's oral tablet 1 tablet, By Mouth, Daily, 0 Refills, Maintenance, 07/09/18 8:43:55 EST Start Date: 07/09/18 Status: Ordered [facility] SENIOR PROBIOTIC CAPSULE TAKE 2 CAPSULES BY MOUTH TWICE A DAY Start Date: 11/01/21 Status: Ordered diclofenac 1% topical gel 1 application, Topically, 4 times a day, Apply 4 gram QID prn to affected pain to dropped foot - not to exceed 16 grams/day/single joint of lower extremities, # 100 Gm, 3 Refills, Maintenance, 04/02/22 21:13:00 EDT, Gel, [facility]... Start Date: 04/02/22 Status: Ordered [...] mL, 5 Refills, 03/02/22 8:08:00 EDT, [facility]/pharmacy #[id number], 155, cm, 02/23/22 8:04:00 [...] 01/11/22 13:45:00 EDT, Route to Pharmacy Electronically, [facility] ADIS... Start Date: 01/11/22 Status: Ordered [...] 02/20/22 7:44:00 EDT, [id number] Partial fill upon patient request if the pre... Start Date: 02/20/22 Stop Date: 05/21/22 Status: Ordered Juzo Compression Hose Juzo Compression Hose, See Instructions, # 2 each, Refills 2, Tot. Refills 2, Maintenance, 20-30mmghg FF Petite (short),Mskfl-teh-omfa, soft knee, black silicone Stock code [id number] Part #[id number], Size III. [facility] [id number], 12/07/21 11:32:00 EDT,... Start Date: 12/07/21 Status: Ordered levothyroxine 0.088 mg oral tablet 1 tablet = 88 mcg, By Mouth, Daily, # 90 tablet, 3 Refills, Maintenance, 03/31/22 13:45:00 EDT, Tablet, [facility], Partial fill upon patient request if the prescription is fora schedule II opioid drug., 155, cm, 03/14/22 11:11... Start Date: 03/31/22 Status: Ordered lisinopril 5 mg oral tablet 5 mg, 1, tablet, By Mouth, Daily, # 90 tablet, Refills 3, Tot. Refills 3, Maintenance, 02/24/22 15:53:00 EDT, [facility] Electronically, [id number], Partial fill upon patient request [...] 03/12/22 Status: Ordered Power [place] Lift with [place] split-leg sling Power [place] Lift with [place] split-leg sling, See Instructions, # 1 each, [...] tablet, 3 Refills, Maintenance, 02/01/22 12:42:00EDT, Tablet, [facility] [...] Active H/O: stroke(Confirmed) Active H/O osteopenia(Confirmed) Active Hiatal hernia without gangre ne and obstruction(Confirmed) Active Hypertension(Confirmed) Active Hypothyroidism(Confirmed) Active Multiple sclerosis(Confirmed) Active Muscle weakness(Confirmed) Active Neurogenic bladder(Confirmed) Active Obese class II(Confirmed) Active Obstructive sleep apnea(Confirmed) Active Osteoporosis(Confirmed) Active Leg pain(Confirmed) Active Paraplegia(Confirmed) Active Pulmonary embolism(Confirmed) Active Bladder spasm(Confirmed) Active Spasticity(Confirmed) Active Social History Social History Type Response Smoking Status Never (less than 100 in lifetime) entered on: 10/31/21 Sex Care Team Personnel Name: Juan Manuel LIM, Kristen Acosta Address: [address] [place] [address]
--- OUTSIDE RECORDS SUMMARY | 2024-03-17 13:31 | XMS_ITS | Continuity of Care Document ---
Author Organization [facility] Address [address] [place] [address]- Care Team Providers Care Supervisor Chassis Assembly Name Role Phone Juan Manuel LIM, Kristen Acosta Primary Care Physic juan alberto Encounter [facility] Date(s): 03/08/23 - 04/07/23 [facility] [address] [place] [address]- Allergies, Adverse Reactions, Alerts Substance Reaction Severity Status morphine hives, SOB Active penicillins hive Active Wellbutrin rash Active Reglan Active cannabis (Schedule I substance) itching/vomiting Active Other Environmental Allergy mercury-fillings Active contrast media (iodine-based) itching throughout body Active Immunizations Given and Recorded Vaccine Date Status Refusal Reason pneumococcal 20-valent conjugate vaccine 05/30/22 Recorded [id number] 12y+ bivalent booster vax 05/12/22 Recorded influenza [...] vaccine, inactivated 04/26/09 Arnoldo rded SARS-CoV-2 mRNA (hgohvza-xvxz-lcklr) vax 03/10/22 Recorded SARS-CoV-2 mRNA (nxwlsal-uovu-tzsxz) vax 10/04/21 Recorded SARS-CoV-2 (COVID-19) mRNA BNT-162b2 [...] 1 Refills, Maintenance, 12/11/22 17:34:00 EDT, Tablet, [facility]/pharmacy #[id number], Partial fill upon patient request if the prescription is for a schedule II opioid drug., 155, cm, 10/10/22 13:40:00 E... Start Date: 12/11/22 Status: Ordered baclofen 20 mg oral tablet 20 mg, 1, tablet, By Mouth, 3 times a day, # 270 tablet, Refills 2, Tot. Refills 2, Maintenance, 12/09/22 12:44:00 EDT, Route to Pharmacy Electronically, [facility], Partial fill upon patient request if the prescription is for a... Start Date: 12/09/22 Stop Date: 09/05/23 Status: Ordered bifidobacterium-lactobacillus oral tablet 2 tablet, By Mouth, 2 times a day, [facility] Brand please (Senior Wellness), # 360 tablet, 3 Refills, Maintenance, 08/11/21 17:02:00 EST, Tablet, [facility]/pharmacy #[id number], Partial fill upon patient request if the prescription is for a schedule II opioid drug., 2... Start Date: 08/11/21 Stop Date: 08/06/22 Status: Ordered calcium carbonate 600 mg oral tablet 1 tablet = 600 mg, By Mouth, 2 times a day, # 180 tablet, 2 Refills, Maintenance, 01/06/23 14:02:00EDT, Tablet, [facility]/pharmacy #[id number], Partial fill upon patient request if the prescription is for a schedule II opioid drug., 155, cm, 02/23/22 8:04:00 EDT... Start Date: 01/06/23 Stop Date: 10/03/23 Status: Ordered Centrum Silver Ultra Women's oral tablet 1 tablet, By Mouth, Daily, 0 Refills, Maintenance, 07/09/18 8:43:55 EST Start Date: 07/09/18 Status: Ordered [facility] SENIOR PROBIOTIC CAPSULE TAKE 2 CAPSULES BY MOUTH TWICE A DAY Start Date: 11/01/21 Status: Ordered [facility] Senior Probiotic Capsule [facility] Senior Probiotic Capsule, See Instructions, # [...] mL, 5 Refills, 03/02/22 8:08:00 EDT, [facility]/pharmacy #[id number], 155, cm, 02/23/22 8:04:00 EDT, [...] Refills, Soft Stop, 03/27/23 18:43:00 EDT, Tablet, [facility]/pharmacy #[id number], Partial fill upon patient request if the prescription is for a schedule II opioid... Start Date: 03/27/23 Status: Ordered fluconazole 150 mg oral tablet 1 tablet = 150 mg, By Mouth, Every week, # 4 tablet, 1 Refills, Soft Stop, 05/26/22 8:59:00 EDT, Tablet, [facility]/pharmacy #[id number], Partial fill [...] 01/17/23 19:36:00 EDT, Route to Pharmacy Electronically, [facility], 155, cm, 10/10/22 13:40:00 [...] 2, Maintenance, Juzo Compression Hose 2 pairs uudkt-oue-qxit Soft Knee FF Petite 20-30 mmHg Silicone, Black Stock Code [id number] I I I Part #[id number] Size I I I SKU... Start Date: 03/12/23 Status: Ordered levothyroxine 0.088 mg oral tablet 1 tablet = 88 mcg, By Mouth, Daily, # 90 tablet, 3 Refills, Maintenance, 03/15/23 17:17:00 EDT, Tablet, [facility], 155, cm, 03/15/23 17:11:00EDT, Height, 93.4, kg, 11/01/21 16:52:00 EDT, Dry W... Start Date: 03/15/23 Status: Ordered Mapap 500 mg oral capsule See Instructions, TAKE 2 CAPSULES BY MOUTH 4 TIMES A DAY NEEDED FOR PAIN, # 480 capsule, 0 Refills, Maintenance, 03/12/23 9:16:00 EDT, [facility]/pharmacy #[id number], 155, cm, 10/10/22 13:40:00 EST, Height, 93.4, kg, 11/01/21 16:52:00 EDT, Dry Weight Start Date: 03/12/23 Status: Ordered Power [place] Lift with [place] split-leg sling Power [place] Lift with [place] split-leg sling, See Instructions, # 1 each, [...] 5 Refills, Maintenance, 12/11/22 17:34:00 EDT, Tablet, [facility]/pharmacy #[id number], Partial fill [...] Team Personnel Name: Juliann Rich RN Position: [facility] RN Member Role: Primary Care Nurse Name: Elsa Allen NP Position: Reference Physician Member Role: Primary Care Nurse Address: Address: [address] [place] [address] [address] [place] [address]- Name: Emma Mendoza RN Position: [facility] AMB Nurse Member Role: Primary Care Nurse Name: Juan Manuel LIM, Kristen Acosta Position: [facility] Physician - Primary Care Member Role: PCP Address: Address: [address] [place] [address]- Name: Komal Goodrich Position: [facility] Outreach Member Role: Lifetime Consulting Physician Name: Godfrey Cano Position: [facility] RN Member Role: Primary Care Nurse Name: Anette Miranda RN Position: [facility] Onco RN Member Role: Primary Care Nurse Care Team Related Persons Name: DIOMEDES WARNER Address: [address] [place] [address] Name: MOO HOWELL Address: [address] [place] [address] Name: MARLON GENTILE
--- OUTSIDE RECORDS SUMMARY | 2024-03-17 13:31 | XMS_ITS | Continuity of Care Document ---
Author Organization [facility] Address [address] [place] [address]- Care Team Providers Care Jewelry Making Instructor Name Role Phone Juan Manuel LIM, Kristen Acosta Primary Care Physic juan alberto En[place] [facility] [place] Date(s): 12/12/21 - 01/11/22 [facility] [address] [place] [address]- [place] Allergies, Adverse Reactions, Alerts Substance Reaction Severity Status morphine hives, SOB Active Wellbutrin rash Active Reglan Active Other Environmental Allergy mercury-fillings Active contrast media (iodine-based) itching throughout body Active cannabis (Schedule I substance) itching/vomiting Active penicillins hive Active Immunizations Given and Recorded Vaccine Date Status Refusal Reason SARS-CoV-2 mRNA (ugfyjla-lmby-jwpjw) vax 10/04/21 Recorded influenza virus vaccine, inactivated [...] 04/19/22 17:46:00 EDT, 08/22/21 17:46:00 EST, Capsule, [facility]/pharmacy #[id number], Partial fill upon patient request if the prescription is for a schedul... Start Date: 08/22/21 Stop Date: 04/19/22 Status: Ordered ascorbic acid 1000 mg oral tablet 1 tablet = 1,000 mg, By Mouth, 2 times a day, # 90 tablet, 1 Refills, Maintenance, 08/11/21 17:03:00 EST, Tablet, [facility]/pharmacy #[id number], Partial fill upon patient request if the prescription is for a schedule II opioid drug., 153, cm, 06/27/21 7:47:00 ES... Start Date: 08/11/21 Status: Ordered baclofen 20 mg oral tablet 20 mg, 1, tablet, By Mouth, 3 times a day, # 360 tablet, Refills 1, Tot. Refills 1, Maintenance, 08/02/21 14:09:00 EST, Route to Pharmacy Electronically, [facility], Partial fill upon patient request if the prescription is for a... Start Date: 08/02/21 Status: Ordered bifidobacterium-lactobacillus oral tablet 2 tablet, By Mouth, 2 times a day, [facility] Brand please ([facility]), # 360 tablet, 3 Refills, Maintenance, 08/11/21 17:02:00 EST, Tablet, [facility]/pharmacy #[id number], Partial fill upon [...] 8:43:55 EST Start Date: 07/09/18 Status: Ordered [facility] SENIOR PROBIOTIC CAPSULE TAKE [...] STILL NEEDED, # 450 mL, 0 Refills, [id number], 153, cm, 08/30/21 16:43:00 EST, Height Start [...] 13:45:00 EDT, [facility] Start Date: 01/11/22 Status: Ordered gabapentin 300 [...] Tot. Refills 2, Maintenance, 20-30mmghg FF Petite (short),Mczif-cko-kgqk, soft knee, black silicone Stock code [id number] Part #[id number], Size III. SK [id number], 12/07/21 11:32:00 EDT,... Start Date: 12/07/21 Status: [...] 01/11/22 Status: Ordered Power [place] Lift with [place] split-leg sling Power [place] Lift with [place] split-leg sling, See Instructions, # 1 each, [...] 1 Refills, Maintenance, 12/09/21 1:28:00 EDT, Tablet, [facility]/pharmacy #[id number], Partial fill upon patient request if the prescription... Start Date: 12/09/21 Stop Date: 02/03/22 Status: Ordered Turmeric = 750 mg, By Mouth, 2 times a day, 0 Refills, Maintenance, 07/09/18 8:47:35 EST Start Date: 07/09/18 Status: Ordered Vitamin D3 2000 intl units oral capsule 1 capsule, By Mouth, Daily, # 90 capsule, 1 Refills, 08/11/21 17:04:00 EST, [facility]/pharmacy #[id number], 153, cm, 06/27/21 [...]
--- OUTSIDE RECORDS SUMMARY | 2024-03-17 13:31 | XMS_ITS | Continuity of Care Document ---
Author Organization [facility] Address [address] [place] [address]- Care Team Providers Care Dice Dealer Name Role Phone Juan Manuel LIM, Kristen Acosta Primary Care Physic juan alberto Encounter [facility] Date(s): 07/25/22 - 08/24/22 [facility] [address] [place] [address]- Allergies, Adverse Reactions, Alerts Substance Reaction Severity Status morphine hives, SOB Active penicillins hive Active Wellbutrin rash Active Reglan Active cannabis (Schedule I substance) itching/vomiting Active Other Environmental Allergy mercury-fillings Active contrast media (iodine-based) itching throughout body Active Immunizations Given and Recorded Vaccine Date Status Refusal Reason pneumococcal 20-valent conjugate vaccine 05/30/22 Recorded [id number] 12y+ bivalent booster vax 05/12/22 Recorded influenza [...] vaccine, inactivated 04/26/09 Arnoldo rded SARS-CoV-2 mRNA ([id number]-[id number]-[id number]) vax 03/10/22 Recorded SARS-CoV-2 mRNA (tukixhm-uwau-jvqxn) vax 10/04/21 Recorded SARS-CoV-2 (COVID-19) mRNA BNT-162b2 [...] 1 Refills, Maintenance, 08/24/22 16:47:00 EST, Tablet, [facility], Partial fill upon patient request if the prescription is for a schedule II opioid drug., 155, cm, 06/15... Start Date: 08/24/22 Status: Ordered baclofen 20 mg oral tablet 20 mg, 1, tablet, By Mouth, 3 times a day, # 270 tablet, Refills 2, Tot. Refills 2, Maintenance, 12/09/22 12:44:00 EDT, Route to Pharmacy Electronically, [facility], Partial fill upon patient request if the prescription is for a... Start Date: 12/09/22 Stop Date: 09/05/23 Status: Ordered baclofen 20 mg oral tablet 20 mg, 1, tablet, By Mouth, 3 times a day, for 90 days, # 270 tablet, Refills 2, Tot. Refills 2, Hard Stop 12/09/22 12:44:00 EDT, 03/14/22 12:44:00 EDT, Route to Pharmacy Electronically, [facility]/pharmacy#[id number], Partial fill upon patient request if the pre... Start Date: 03/14/22 Stop Date: 12/09/22 Status: Ordered bifidobacterium-lactobacillus oral tablet 2 tablet, By Mouth, 2 times a day, [facility] Brand please (Senior Wellness), # 360 tablet, 3 Refills, Maintenance, 08/11/21 17:02:00 EST, Tablet, [facility]/pharmacy #[id number], Partial fill upon patient request if the prescription is for a schedule II opioid drug., 2... Start Date: 08/11/21 Stop Date: 08/06/22 Status: Ordered calcium carbonate 600 mg oral tablet 1 tablet = 600 mg, By Mouth, 2 times a day, # 180 tablet, 2 Refills, Maintenance, 01/06/23 14:02:00EDT, Tablet, [facility]/pharmacy #[id number], Partial fill upon patient request [...] 01/06/23 14:02:00 EDT, 01/11/22 14:02:00 EDT, Tablet, [facility], Partial fill upon patient request if the prescription is for a schedul... Start Date: 01/11/22 Stop Date: 01/06/23 Status: Ordered Centrum Silver Ultra Women's oral tablet 1 tablet, By Mouth, Daily, 0 Refills, Maintenance, 07/09/18 8:43:55 EST Start Date: 07/09/18 Status: Ordered [facility] SENIOR PROBIOTIC CAPSULE TAKE 2 CAPSULES BY MOUTH TWICE A DAY Start Date: 11/01/21 Status: Ordered [facility] Senior Probiotic Capsule [facility] Senior Probiotic Capsule, See Instructions, # [...] 3 Refills, Maintenance, 04/02/22 21:13:00 EDT, Gel, [facility] Start Date: 04/02/22 Status: [...] 450 mL, 5 Refills, 03/02/22 8:08:00 EDT, [facility]/pharmacy #[id number], 155, cm, 02/23/22 8:04:00 EDT, [...] Refills, Soft Stop, 05/26/22 8:59:00 EDT, Tablet, [facility]/pharmacy #[id number], Partial fill upon patient request [...] 01/02/22 9:03:00 EDT, Route to Pharmacy Electronically, [facility], Partial fill upon patient [...] ED[facility] Start Date: 01/11/22 Status: Ordered gabapentin 300 mg oral capsule 300 mg, 1, capsule, By Mouth, 3 times a day, # 270 capsule, Refills 2, Tot. Refills 2, Maintenance,05/21/22 7:44:00 EDT, Route to Pharmacy Electronically, [facility], Partial fill upon patient request if the prescription is for... Start Date: 05/21/22 Stop Date: 02/15/23 Status: Ordered Juzo Compression Hose Juzo Compression Hose, See Instructions, # 2 each, Refills 2, Tot. Refills 2, Maintenance, 20-30mmghg FF Petite (short),Gjzjj-hst-fnzr, soft knee, black silicone Stock code [id number] Part #[id number], Size III. [facility] [id number], 12/07/21 11:32:00 EDT,... Start Date: 12/07/21 Status: Ordered levothyroxine 0.088 mg oral tablet 1 tablet = 88 mcg, By Mouth, Daily, # 90 tablet, 0 Refills, Maintenance, 07/26/22 16:49:00 EST, Tablet, [facility], Partial fill upon patient request if the prescription is fora schedule II opioid drug., 155, cm, 07/12/22 14:10... Start Date: 07/26/22 Status: Ordered lisinopril 5 mg oral tablet 5 mg, 1, tablet, By Mouth, Daily, # 90 tablet, Refills 3, Tot. Refills 3, Maintenance, 02/24/22 15:53:00 EDT, Route to Pharmacy Electronically, [facility]/pharmacy #[id number], Partial fill upon patient request if the prescription is for a schedule II opioid drug.... Start Date: 02/24/22 Status: Ordered Mapap 500 mg oral capsule See Instructions, TAKE 2 CAPSULES BY MOUTH 4 TIMES A DAY NEEDED FOR PAIN, # 480 capsule, 3 Refills, Maintenance, 06/04/22 16:03:00 EDT, [facility]ORE [id number], 155, cm, 05/25/22 13:44:00 EDT, Height, 93.4, kg, 11/01/21 16:52:00 EDT, Dry Weight Start Date: 06/04/22 Status: Ordered Potassium Chloride (Eqv-K-Tab) 20 mEq oral tablet, extended release 1 tablet = 20 mEq, By Mouth, Daily, for low potassium, # 10 tablet, 0 Refills, Maintenance, 03/02/22 19:14:00 EDT, [facility]/pharmacy #[id number], Partial fill upon patient request if the prescription is for a schedule II opioid drug., 155, cm, 02/23/22 8:04:00 E... Start Date: 03/02/22 Stop Date: 03/12/22 Status: Ordered Power Virginia Lift with [place] split-leg sling Power [place] Lift with [place] split-leg sling, See Instructions, # 1 each, [...] 18 tablet, 0Refills, Maintenance, 08/24/22 17:06:00 EST, [facility]/pharmacy #[id number], Partial fill upon patient request if the prescription is for a schedule II opioid drug... Start Date: 08/24/22 Status: Ordered Provigil 200 mg oral tablet 1 tablet = 200 mg, By Mouth, 2 times a day, takes in am and lunchtime brand name only - dispense aswritten, # 56 tablet, 3 Refills, Maintenance, 07/12/22 17:46:00 EST, Tablet, [facility]/pharmacy #[id number], Partial fill upon patient request if the prescription... Start Date: 07/12/22 Stop Date: 11/01/22 Status: Ordered Provigil 200 mg oral tablet 1 tablet = 200 mg, By Mouth, 2 times a day, for 28 days, takes in am and lunchtime brand name only - dispense as written, # 56 tablet, 3 Refills, Hard Stop 10/25/22 18:25:00 EDT, 07/05/22 18:25:00 EST, Tablet, [facility], Parti... Start Date: 07/05/22 [...] 90 capsule, 2 Refills, 02/28/22 8:13:00 EDT, [facility]/pharmacy #[id number], 155,cm, 02/23/22 8:04:00 EDT, Height, 93.4, kg, 11/01/21 16:52:00 EDT, Dry Weight Start Date: 02/28/22 Status: Ordered Xarelto 20 mg oral tablet 1 tablet = 20 mg, By Mouth, Daily at supper, # 90 tablet, 3 Refills, Maintenance, 02/01/22 12:42:00EDT, Tablet, [facility], Partial fill upon patient [...] Team Personnel Name: Juliann Rich RN Position: [facility] RN Member Role: Primary Care Nurse Name: Elsa Allen NP Position: Reference Physician Member Role: Primary Care Nurse Address: Address: [address] [place] [address] [address] [place] [address]- Name: Emma Mendoza RN Position: S RN Member Role: Primary Care Nurse Name: Juan Manuel LIM, Kristen Acosta Position: S Primary Care Physician Member Role: PCP Address: Address: [address] [place] [id number]- Name: Jade Medina Position: [facility] RN Member Role: Primary Care Nurse Name: Komal Goodrich Position: [facility] Outreach Member Role: Lifetime Consulting Physician Name: Godfrey Cano Position: [facility] RN Member Role: Primary Care Nurse Name: Anette Miranad RN Position: [facility] Onco RN Member Role: Primary Care Nurse Care Team Related Persons Name: DIOMEDES WARNER Address: [address] [place] [address] Name: MOO HOWELL Address: home [address] [place] [address] Name: MARLON GENTILE
--- OUTSIDE RECORDS SUMMARY | 2024-03-17 13:31 | XMS_ITS | Continuity of Care Document ---
Author Organization [facility] Address Unknown Care Team Providers Care Color Television Console Monitor Name Role Phone Juan Manuel LIM, Kristen Acosta Primary Care Physic juan alberto Encounter [facility] Date(s): 02/22/22 - 03/24/22 [facility] Allergies, Adverse Reactions, Alerts Substance Reaction Severity Status morphine hives, SOB Active penicillins hive Active Wellbutrin rash Active Reglan Active cannabis (Schedule I substance) itching/vomiting Active Other Environmental Allergy mercury-fillings Active contrast media (iodine-based) itching throughout body Active Immunizations Given and Recorded Vaccine Date Status Refusal Reason SARS-CoV-2 mRNA (xooawjt-phkt-bkkjh) vax 10/04/21 Recorded influenza virus vaccine, inactivated [...] 04/19/22 17:46:00 EDT, 08/22/21 17:46:00 EST, Capsule, [facility]/pharmacy #[id number], Partial fill upon patient request if the prescription is for a schedul... Start Date: 08/22/21 Stop Date: 04/19/22 Status: Ordered ascorbic acid 1000 mg oral tablet 1 tablet = 1,000 mg, By Mouth, 2 times a day, # 90 tablet, 2 Refills, Maintenance, 02/28/22 8:12:00EDT, Tablet, [facility]/pharmacy #[id number], Partial fill upon patient request if the prescription is for a schedule II opioid drug., 155, cm, 02/23/22 8:04:00 EDT... Start Date: 02/28/22 Status: Ordered baclofen 20 mg oral tablet 20 mg, 1, tablet, By Mouth, 3 times a day, # 270 tablet, Refills 2, Tot. Refills 2, Maintenance, 03/14/22 12:44:00 EDT, Route to Pharmacy Electronically, [facility]/pharmacy #[id number], Partial fill upon patientrequest if the prescription is for a schedule II op... Start Date: 03/14/22 Stop Date: 12/09/22 Status: Ordered bifidobacterium-lactobacillus oral tablet 2 tablet, By Mouth, 2 times a day, [facility] Brand please ([facility]), # 360 tablet, 3 Refills, Maintenance, 08/11/21 17:02:00 EST, Tablet, [facility]/pharmacy #[id number], Partial fill upon patient request if the prescription is for a schedule II opioid drug., 2... Start Date: 08/11/21 Stop Date: 08/06/22 Status: Ordered calcium carbonate 600 mg oral tablet 1 tablet = 600 mg, By Mouth, 2 times a day, # 180 tablet, 2 Refills, Maintenance, 01/06/23 14:02:00EDT, Tablet, [facility]/pharmacy #[id number], Partial fill upon patient [...] 14:02:00 EDT, 01/11/22 14:02:00 EDT, Tablet, [facility], Partial fill upon patient request if the prescription is for a schedul... Start Date: 01/11/22 Stop Date: 01/06/23 Status: Ordered Centrum Silver Ultra Women's oral tablet 1 tablet, By Mouth, Daily, 0 Refills, Maintenance, 07/09/18 8:43:55 EST Start Date: 07/09/18 Status: Ordered [facility] SENIOR PROBIOTIC CAPSULE TAKE 2 CAPSULES BY MOUTH TWICE A DAY Start Date: 11/01/21 Status: Ordered diclofenac 1% topical gel 1 application, Topically, 4 times a day, # 100 Gm, 3 Refills, Maintenance, 01/11/22 14:07:00 EDT, Gel, [facility], Partial fill upon [...] 450 mL, 5 Refills, 03/02/22 8:08:00 EDT, [facility]/pharmacy #[id number], 155, cm, 02/23/22 8:04:00 [...] 9:03:00 EDT, [facility] to Pharmacy Electronically, [facility] [...] 02/20/22 7:44:00 EDT, Route to Pharmacy Electronically, [facility]/pharmacy #[id number], Partial fill upon patient request if the prescription is for a schedule II o... Start Date: 02/20/22 Stop Date: 05/21/22 Status: Ordered Juzo Compression Hose Juzo Compression Hose, See Instructions, # 2 each, Refills 2, Tot. Refills 2, Maintenance, 20-30mmghg FF Petite (short),Vernj-mhh-dqao, soft knee, black silicone Stock code [id number] Part #[id number], Size III. [facility] [id number], 12/07/21 11:32:00 EDT,... Start Date: 12/07/21 Status: Ordered levothyroxine 0.088 mg oral tablet 1 tablet = 88 mcg, By Mouth, Daily, # 90 tablet, 1 Refills, Maintenance, 07/13/21 14:09:00 EST, Tablet, [facility], Partial fill upon patient request if the prescription is fora schedule II opioid drug., 153, cm, 06/27/21 7:47:... Start Date: 07/13/21 Status: Ordered lisinopril 5 mg oral tablet 5 mg, 1, tablet, By Mouth, Daily, # 90 tablet, Refills 3, Tot. Refills 3, Maintenance, 02/24/22 15:53:00 EDT, Route to Pharmacy Electronically, [facility]/pharmacy #[id number], Partial fill upon patient request if the prescription is for a schedule II opioid drug.... Start Date: 02/24/22 Status: Ordered Potassium Chloride (Eqv-K-Tab) 20 mEq oral tablet, extended release 1 tablet = 20 mEq, By Mouth, Daily, for low potassium, # 10 tablet, 0 Refills, Maintenance, 03/02/22 19:14:00 EDT, [facility]/pharmacy #[id number], Partial fill upon patient request if the prescription is for a schedule II opioid drug., 155, cm, 02/23/22 8:04:00 E... Start Date: 03/02/22 Stop Date: 03/12/22 Status: Ordered Power [place] Lift with [place] split-leg sling Power [place] Lift with [place] split-leg sling, See Instructions, # 1 each, [...] 3 Refills, Maintenance, 02/28/22 8:12:00 EDT, Tablet, [facility]/pharmacy #[id number], Partial fill upon patient [...] 90 capsule, 2 Refills, 02/28/22 8:13:00 EDT, [facility]/pharmacy #[id number], 155,cm, 02/23/22 8:04:00 EDT, Height, 93.4, kg, 11/01/21 16:52:00 EDT, Dry Weight Start Date: 02/28/22 Status: Ordered Xarelto 20 mg oral tablet 1 tablet = 20 mg, By Mouth, Daily at supper, # 90 tablet, 3 Refills, Maintenance, 02/01/22 12:42:00EDT, Tablet, [facility], Partial fill upon patient [...]
--- OUTSIDE RECORDS SUMMARY | 2024-03-17 13:31 | XMS_ITS | Continuity of Care Document ---
Author Organization [facility] Address [address] [place] [address]- Care Team Providers Care Proposal Review Analyst Name Role Phone Juan Manuel LIM, Kristen Acosta Primary Care Physic juan alberto Encounter [facility] Date(s): 08/11/22 - 09/10/22 [facility] [address] [place] [address]- Allergies, Adverse Reactions, Alerts Substance Reaction Severity Status morphine hives, SOB Active penicillins hive Active Wellbutrin rash Active Reglan Active cannabis (Schedule I substance) itching/vomiting Active Other Environmental Allergy mercury-fillings Active contrast media (iodine-based) itching throughout body Active Immunizations Given and Recorded Vaccine Date Status Refusal Reason pneumococcal 20-valent conjugate vaccine 05/30/22 Recorded [id number] 12y+ bivalent booster vax 05/12/22 Recorded influenza [...] vaccine, inactivated 04/26/09 Arnoldo rded SARS-CoV-2 mRNA (rffjleu-mhji-ferob) vax 03/10/22 Recorded SARS-CoV-2 mRNA (ssfgssd-doms-xkyho) vax 10/04/21 Recorded SARS-CoV-2 (COVID-19) mRNA BNT-162b2 [...] 1 Refills, Maintenance, 08/24/22 16:47:00 EST, Tablet, [facility], Partial fill upon patient request if the prescription is for a schedule II opioid drug., 155, cm, 06/15... Start Date: 08/24/22 Status: Ordered baclofen 20 mg oral tablet 20 mg, 1, tablet, By Mouth, 3 times a day, # 270 tablet, Refills 2, Tot. Refills 2, Maintenance, 12/09/22 12:44:00 EDT, Route to Pharmacy Electronically, [facility], Partial fill upon patient request if the prescription is for a... Start Date: 12/09/22 Stop Date: 09/05/23 Status: Ordered baclofen 20 mg oral tablet 20 mg, 1, tablet, By Mouth, 3 times a day, for 90 days, # 270 tablet, Refills 2, Tot. Refills 2, Hard Stop 12/09/22 12:44:00 EDT, 03/14/22 12:44:00 EDT, Route to Pharmacy Electronically, [facility]/pharmacy#[id number], Partial fill upon patient request if the pre... Start Date: 03/14/22 Stop Date: 12/09/22 Status: Ordered bifidobacterium-lactobacillus oral tablet 2 tablet, By Mouth, 2 times a day, [facility] Brand please (Senior Wellness), # 360 tablet, 3 Refills, Maintenance, 08/11/21 17:02:00 EST, Tablet, [facility]/pharmacy #[id number], Partial fill upon patient request if the prescription is for a schedule II opioid drug., 2... Start Date: 08/11/21 Stop Date: 08/06/22 Status: Ordered calcium carbonate 600 mg oral tablet 1 tablet = 600 mg, By Mouth, 2 times a day, # 180 tablet, 2 Refills, Maintenance, 01/06/23 14:02:00EDT, Tablet, [facility]/pharmacy #[id number], Partial fill upon patient request [...] 14:02:00 EDT, 01/11/22 14:02:00 EDT, Tablet, [facility], Partial fill upon patient request if the prescription is for a schedul... Start Date: 01/11/22 Stop Date: 01/06/23 Status: Ordered Centrum Silver Ultra Women's oral tablet 1 tablet, By Mouth, Daily, 0 Refills, Maintenance, 07/09/18 8:43:55 EST Start Date: 07/09/18 Status: Ordered [facility] SENIOR PROBIOTIC CAPSULE TAKE 2 CAPSULES BY MOUTH TWICE A DAY Start Date: 11/01/21 Status: Ordered [facility] Senior Probiotic Capsule [facility] Senior Probiotic Capsule, See Instructions, # [...] 3 Refills, Maintenance, 04/02/22 21:13:00 EDT, Gel, [facility] Start Date: 04/02/22 Status: [...] 450 mL, 5 Refills, 03/02/22 8:08:00 EDT, [facility]/pharmacy #[id number], 155, cm, 02/23/22 8:04:00 EDT, [...] Refills, Soft Stop, 05/26/22 8:59:00 EDT, Tablet, [facility]/pharmacy #[id number], Partial fill upon patient request [...] 9:03:00 EDT, Route to Pharmacy Electronically, [facility], Partial fill upon patient [...] 01/11/22 13:45:00 EDT, Route to Pharmacy Electronically, [facility]... Start Date: 01/11/22 Status: Ordered gabapentin 300 mg oral capsule 300 mg, 1, capsule, By Mouth, 3 times a day, # 270 capsule, Refills 2, Tot. Refills 2, Maintenance,05/21/22 7:44:00 EDT, Route to Pharmacy Electronically, [facility], Partial fill upon patient request if the prescription is for... Start Date: 05/21/22 Stop Date: 02/15/23 Status: Ordered Juzo Compression Hose Juzo Compression Hose, See Instructions, # 2 each, Refills 2, Tot. Refills 2, Maintenance, 20-30mmghg FF Petite (short),Likay-tsy-nxmu, soft knee, black silicone Stock code [id number] Part #[id number], Size III. [facility] [id number], 12/07/21 11:32:00 EDT,... Start Date: 12/07/21 Status: Ordered levothyroxine 0.088 mg oral tablet 1 tablet = 88 mcg, By Mouth, Daily, # 90 tablet, 1 Refills, Maintenance, 09/08/22 14:26:00 EST, Tablet, [facility], Partial fill upon patient request if the prescription is fora schedule II opioid drug., 155, cm, 07/12/22 14:10... Start Date: 09/08/22 Status: Ordered lisinopril 5 mg oral tablet 5 mg, 1, tablet, By Mouth, Daily, # 90 tablet, Refills 3, Tot. Refills 3, Maintenance, 02/24/22 15:53:00 EDT, Route to Pharmacy Electronically, [facility]/pharmacy #[id number], Partial fill upon patient request if the prescription is for a schedule II opioid drug.... Start Date: 02/24/22 Status: Ordered Mapap 500 mg oral capsule See Instructions, TAKE 2 CAPSULES BY MOUTH 4 TIMES A DAY NEEDED FOR PAIN, # 480 capsule, 3 Refills, Maintenance, 06/04/22 16:03:00 EDT, [facility] STORE [id number], 155, cm, 05/25/22 13:44:00 EDT, Height, 93.4, kg, 11/01/21 16:52:00 EDT, Dry Weight Start Date: 06/04/22 Status: Ordered Potassium Chloride (Eqv-K-Tab) 20 mEq oral tablet, extended release 1 tablet = 20 mEq, By Mouth, Daily, for low potassium, # 10 tablet, 0 Refills, Maintenance, 03/02/22 19:14:00 EDT, [facility]/pharmacy #[id number], Partial fill upon patient request if the prescription is for a schedule II opioid drug., 155, cm, 02/23/22 8:04:00 E... Start Date: 03/02/22 Stop Date: 03/12/22 Status: Ordered Power Virginia Lift with [place] split-leg sling Power [place] Lift with [place] split-leg sling, See Instructions, # 1 each, Refills 0, Tot. Refills 0, Maintenance, Dx: Multiple Sclerosis induced Paraplegia Length of time needed: indefinite Purpose: Transfer to/fr [facility] bed to wheelchair, commode,... Start Date: 08/16/21 Status: Ordered predniSONE 10 mg oral tablet See Instructions, 3 tablets x 3 days, 2 tabs x 3 days then 1 tab x 3 days then STOP, # 18 tablet, 0Refills, Maintenance, 08/24/22 17:06:00 EST, [facility]/pharmacy #[id number], Partial fill upon patient request [...] 11/01/22 17:46:00 EDT, 07/12/22 17:46:00 EST, Tablet, [facility]/pharmacy #[id number], Partial fill upon pa... Start Date: 07/12/22 Stop Date: 11/01/22 Status: Ordered Provigil 200 mg oral tablet 1 tablet = 200 mg, By Mouth, 2 times a day, takes in am and lunchtime brand name only - dispense aswritten, # 56 tablet, 0 Refills, Maintenance, 09/07/22 14:36:00 EST, Tablet, [facility]/pharmacy #[id number], Partial fill upon patient request if the prescription... Start Date: 09/07/22 Stop Date: 10/05/22 Status: Ordered Provigil 200 mg oral tablet 1 tablet = 200 mg, By Mouth, 2 times a day, for 28 days, takes in am and lunchtime brand name only - dispense as written, # 56 tablet, 3 Refills, Hard Stop 10/25/22 18:25:00 EDT, 07/05/22 18:25:00 EST, [facility]... Start Date: 07/05/22 Stop [...] 90 capsule, 2 Refills, 02/28/22 8:13:00 EDT, [facility]/pharmacy #[id number], 155,cm, 02/23/22 8:04:00 EDT, Height, 93.4, kg, 11/01/21 16:52:00 EDT, Dry Weight Start Date: 02/28/22 Status: Ordered Xarelto 20 mg oral tablet 1 tablet = 20 mg, By Mouth, Daily at supper, # 90 tablet, 3 Refills, Maintenance, 02/01/22 12:42:00EDT, Tablet, [facility], Partial fill upon patient request [...] Role: Primary Care Nurse Address: Address: [address] [place] [address] [address] [facility] [place] [address]- [place] Name: Emma Mendoza RN Position: [facility] RN Member Role: Primary Care Nurse Name: Juan Manuel LIM, Kristen Acosta Position: [facility] Primary Care Physician Member Role: PCP Address: Address: [address] [place] [address]- Name: Jade Medina Position: [facility] RN Member Role: Primary Care Nurse Name: Komal Goodrich Position: [facility] Outreach Member Role: Lifetime Consulting Physician Name: Godfrey Cano Position: [facility] RN Member Role: Primary Care Nurse Name: Anette Miranda RN Position: [facility] Onco RN Member Role: Primary Care Nurse Care Team Related Persons Name: DIOMEDES WARNER Address: [address] [place] [address] Name: MOO HOWELL Address: [address] [place] [address] Name: MARLON GENTILE
--- OUTSIDE RECORDS SUMMARY | 2024-03-17 13:31 | XMS_ITS | Continuity of Care Document ---
Author Organization [facility] Address [address] [place] [address]- Care Team Providers Care General Milling Superintendent Name Role Phone Juan Manuel LIM, Kristen Acosta Primary Care Physic juan alberto Encounter [facility] Date(s): 12/19/22 - 01/18/23 [facility] [address] [place] [address] Allergies, Adverse Reactions, Alerts Substance Reaction Severity Status morphine hives, SOB Active penicillins hive Active Wellbutrin rash Active Reglan Active cannabis (Schedule I substance) itching/vomiting Active Other Environmental Allergy mercury-fillings Active contrast media (iodine-based) itching throughout body Active Immunizations Given and Recorded Vaccine Date Status Refusal Reason pneumococcal 20-valent conjugate vaccine 05/30/22 Recorded [id number] 12y+ bivalent booster vax 05/12/22 Recorded influenza [...] vaccine, inactivated 04/26/09 Arnoldo rded SARS-CoV-2 mRNA (bsuaaqp-yloi-vglck) vax 03/10/22 Recorded SARS-CoV-2 mRNA ([id number]-jycp-cuwru) vax 10/04/21 Recorded SARS-CoV-2 (COVID-19) mRNA BNT-162b2 [...] Maintenance, 12/11/22 17:34:00 EDT, Tablet, [facility]/pharmacy #[id number], Partial fill upon patient request if the prescription is for a schedule II opioid drug., 155, cm, 10/10/22 13:40:00 E... Start Date: 12/11/22 Status: Ordered baclofen 20 mg oral tablet 20 mg, 1, tablet, By Mouth, 3 times a day, # 270 tablet, Refills 2, Tot. Refills 2, Maintenance, 12/09/22 12:44:00 EDT, Route to Pharmacy Electronically, [facility], Partial fill upon patient request if the prescription is for a... Start Date: 12/09/22 Stop Date: 09/05/23 Status: Ordered bifidobacterium-lactobacillus oral tablet 2 tablet, By Mouth, 2 times a day, [facility] Brand please (Senior Wellness), # 360 tablet, 3 Refills, Maintenance, 08/11/21 17:02:00 EST, Tablet, [facility]/pharmacy #[id number], Partial fill upon patient request if the prescription is for a schedule II opioid drug., 2... Start Date: 08/11/21 Stop Date: 08/06/22 Status: Ordered calcium carbonate 600 mg oral tablet 1 tablet = 600 mg, By Mouth, 2 times a day, # 180 tablet, 2 Refills, Maintenance, 01/06/23 14:02:00EDT, Tablet, [facility]/pharmacy #[id number], Partial fill upon patient request if the prescription is for a schedule II opioid drug., 155, cm, 02/23/22 8:04:00 EDT... Start Date: 01/06/23 Stop Date: 10/03/23 Status: Ordered Centrum Silver Ultra Women's oral tablet 1 tablet, By Mouth, Daily, 0 Refills, Maintenance, 07/09/18 8:43:55 EST Start Date: 07/09/18 Status: Ordered [facility] SENIOR PROBIOTIC CAPSULE TAKE 2 CAPSULES BY MOUTH TWICE A DAY Start Date: 11/01/21 Status: Ordered [facility] Senior Probiotic Capsule [facility] Senior Probiotic Capsule, See Instructions, # [...] 5 Refills, 03/02/22 8:08:00 EDT, [facility]/pharmacy #[id number], 155, cm, 02/23/22 8:04:00 EDT, [...] Stop, 05/26/22 8:59:00 EDT, Tablet, [facility]/pharmacy #[id number], Partial fill upon patient request [...] 19:36:00 EDT, Route to Pharmacy Electronically, [facility], 155, cm, 10/10/22 13:40:00 EST, Height, 93.4,kg, 11/01/21 16:52:00 EDT, Dry Weight Start Date: 01/17/23 Status: Ordered gabapentin 300 mg oral capsule 300 mg, 1, capsule, By Mouth, 3 times a day, for 90 days, # 270 capsule, Refills 2, Tot. Refills 2,Hard Stop 02/15/23 7:44:00 EDT, 05/21/22 7:44:00 EDT, Route to Pharmacy Electronically, [facility], Partial fill upon patient re... Start Date: 05/21/22 Stop Date: 02/15/23 Status: Ordered gabapentin 300 mg oral capsule 300 mg, 1, capsule, By Mouth, 3 times a day, # 270 capsule, Refills 2, Tot. Refills 2, Maintenance,02/15/23 7:44:00 EDT, Route to Pharmacy Electronically, [facility], Partial fill upon patient request if the prescription is for... Start Date: 02/15/23 Stop Date: 11/12/23 Status: Ordered Juzo Compression Hose Juzo Compression Hose, See Instructions, # 2 each, Refills 2, Tot. Refills 2, Maintenance, 20-30mmghg FF Petite (short),Lrtpg-wbg-[id number], soft knee, black silicone Stock code [id number] Part #[id number], Size III. [facility] [id number], 12/07/21 11:32:00 EDT,... Start Date: 12/07/21 Status: Ordered levothyroxine 0.088 mg oral tablet 1 tablet = 88 mcg, By Mouth, Daily, # 90 tablet, 1 Refills, Maintenance, 09/08/22 14:26:00 EST, Tablet, [facility], Partial fill upon patient request if the prescription is fora schedule II opioid drug., 155, cm, 07/12/22 14:10... Start Date: 09/08/22 Status: Ordered lisinopril 10 mg oral tablet 10 mg, 1, tablet, By Mouth, Daily, # 90 tablet, Refills 0, Tot. Refills 0, Maintenance, 01/01/23 8:04:00 EDT, Route to Pharmacy Electronically, [facility]/pharmacy #[id number], Partial fill upon patient request if the prescription is for a schedule II opioid drug.... Start Date: 01/01/23 Status: Ordered lisinopril 5 mg oral tablet 5 mg, 1, tablet, By Mouth, Daily, # 90 tablet, Refills 3, Tot. Refills 3, Maintenance, 02/24/22 15:53:00 EDT, Route to Pharmacy Electronically, [facility]/pharmacy #[id number], Partial fill upon patient request if the prescription is for a schedule II opioid drug.... Start Date: 02/24/22 Status: Ordered Mapap 500 mg oral capsule See Instructions, TAKE 2 CAPSULES BY MOUTH 4 TIMES A DAY NEEDED FOR PAIN, # 480 capsule, 3 Refills, Maintenance, 06/04/22 16:03:00 EDT, [id number], 155, cm, 05/25/22 13:44:00 EDT, Height, 93.4, kg, 11/01/21 16:52:00 EDT, Dry Weight Start Date: 06/04/22 Status: Ordered Power [place] Lift with [place] split-leg sling Power [place] Lift with [place] split-leg sling, See Instructions, # 1 each, [...] 03/22/23 17:39:00 EDT, 10/05/22 17:39:00 EST, Tablet, [facility]/pharmacy #[id number], Partial fill upon pa... Start Date: 10/05/22 Stop Date: 03/22/23 Status: Ordered Provigil 200 mg oral tablet 1 tablet = 200 mg, By Mouth, 2 times a day, takes in am and lunchtime brand name only - dispense aswritten, # 56 tablet, 5 Refills, Maintenance, 12/11/22 17:34:00 EDT, Tablet, [facility]/pharmacy #[id number], Partial fill upon patient request [...] tablet, 3 Refills, Maintenance, 01/17/23 9:37:00 EDT, [facility], 155, cm, 10/10/22 13:40:00 [...] Name: Juliann Rich RN Position: [facility] RN Member Role: Primary Care Nurse Name: Elsa Allen NP Position: Reference Physician Member Role: Primary Care Nurse Address: Address: [address] [place] [address] [address] [place] [address]- [place] Name: Emma Mendoza RN Position: [facility] AMB Nurse Member Role: Primary Care Nurse Name: Juan Manuel LIM, Kristen Acosta Position: [facility] Physician - Primary Care Member Role: PCP Address: Address: [address] [place] [id number]- Name: Jade Medina Position: [facility] RN Member Role: Primary Care Nurse Name: Komal Goodrich Position: [facility] Outreach Member Role: Lifetime Consulting Physician Name: Godfrey Cano Position: [facility] RN Member Role: Primary Care Nurse Name: Anette Miranda RN Position: [facility] Onco RN Member Role: Primary Care Nurse Care Team Related Persons Name: DIOMEDES WARNER Address: home [address] [place] [address] Name: MOO HOWELL Address: home [address] [place] [address] Name: MARLON GENTILE
--- OUTSIDE RECORDS SUMMARY | 2024-03-17 13:31 | XMS_ITS | Continuity of Care Document ---
Author Organization [facility] Address [address] [place] [address]- Care Team Providers Care Banbury Mill Operator Name Role Phone Juan Manuel LIM, Kristen Acosta Primary Care Physic juan alberto Encounter [facility] Date(s): 05/16/23 - 09/15/23 [facility] [address] [place] [address]- Discharge Disposition: A-D/C Home Attending Physician: Ila LIM(Hem/Onc), [place] Admitting Physician: Ila LIM(Hem/Onc), [place] Referring Physician: Juan Manuel LIM, Kristen Acosta Allergies, Adverse Reactions, Alerts Substance Reaction Severity Status morphine hives, SOB Active penicillins hive Active Wellbutrin rash Active Reglan Active cannabis (Schedule I substance) itching/vomiting Active Other Environmental Allergy mercury-fillings Active contrast media (iodine-based) itching throughout body Active Immunizations Given and Recorded Vaccine Date Status Refusal Reason pneumococcal 20-valent conjugate vaccine 05/30/22 Recorded [id number] 12y+ bivalent booster vax 05/12/22 Recorded influenza [...] vaccine, inactivated 04/26/09 Arnoldo rded SARS-CoV-2 mRNA (edjzdns-zmiy-wpdhp) vax 03/10/22 Recorded SARS-CoV-2 mRNA (nxdtuox-pyew-fnrqu) vax 10/04/21 Recorded SARS-CoV-2 (COVID-19) mRNA BNT-162b2 [...] 1 Refills, Maintenance, 08/01/23 13:53:00 EST, Tablet, [facility]/pharmacy #[id number], Partial fill upon patient request [...] 09/05/23 12:44:00 EST, Route to Pharmacy Electronically, [facility], Partial fill upon patient req... Start Date: 09/05/23 Stop Date: 06/01/24 Status: Ordered baclofen 20 mg oral tablet 20 mg, 1, tablet, By Mouth, 3 times a day, # 270 tablet, Refills 2, Tot. Refills 2, Maintenance, 09/05/23 12:44:00 EST, Route to Pharmacy Electronically, [facility]/pharmacy #[id number], Partial fill upon patientrequest if the prescription is for a schedule II op... Start Date: 09/05/23 Stop Date: 06/01/24 Status: Ordered bifidobacterium-lactobacillus oral tablet 2 tablet, By Mouth, 2 times a day, [facility] Brand please (Senior Wellness), # 360 tablet, 3 Refills, Maintenance, 08/11/21 17:02:00 EST, Tablet, [facility]/pharmacy #[id number], Partial fill upon patient request if the prescription is for a schedule II opioid drug., 2... Start Date: 08/11/21 Stop Date: 08/06/22 Status: Ordered calcium carbonate 600 mg oral tablet 1 tablet = 600 mg, By Mouth, 2 times a day, # 180 tablet, 2 Refills, Maintenance, 01/06/23 14:02:00EDT, Tablet, [facility]/pharmacy #[id number], Partial fill upon patient request if the prescription is for a schedule II opioid drug., 155, cm, 02/23/22 8:04:00 EDT... Start Date: 01/06/23 Stop Date: 10/03/23 Status: Ordered Centrum Silver Ultra Women's oral tablet 1 tablet, By Mouth, Daily, 0 Refills, Maintenance, 07/09/18 8:43:55 EST Start Date: 07/09/18 Status: Ordered [facility] SENIOR PROBIOTIC CAPSULE TAKE 2 CAPSULES BY MOUTH TWICE A DAY Start Date: 11/01/21 Status: Ordered [facility] Senior Probiotic Capsule [facility] Senior Probiotic Capsule, See Instructions, # [...] 450 mL, 5 Refills, 03/02/22 8:08:00 EDT, [facility]/pharmacy #[id number], 155, cm, 02/23/22 8:04:00 EDT, [...] Refills, Soft Stop, 03/27/23 18:43:00 EDT, Tablet, [facility]/pharmacy #[id number], Partial fill upon patient request if the prescription is for a schedule II opioid... Start Date: 03/27/23 Status: Ordered fluconazole 150 mg oral tablet 1 tablet = 150 mg, By Mouth, Every week, # 4 tablet, 1 Refills, Soft Stop, 05/26/22 8:59:00 EDT, Tablet, [facility]/pharmacy #[id number], Partial fill upon patient request [...] 1:01:00 EST, Route to Pharmacy Electronically, [facility], 155, cm, 05/28/23 [...] Maintenance,02/15/23 7:44:00 EDT, Route to Pharmacy Electronically, [facility], Partial fill upon patient request if the prescription is for... Start Date: 02/15/23 Stop Date: 11/12/23 Status: Ordered Juzo Compression Hose Juzo Compression Hose, See Instructions, # 2 each, Refills 2, Tot. Refills 2, Maintenance, Juzo Compression Hose 2 pairs hqrek-mxy-ualv Soft Knee FF Petite 20-30 mmHg Silicone, Black Stock Code [id number] I I I Part #98898 Size I I I SKU... Start Date: 03/12/23 Status: Ordered levothyroxine 0.088 mg oral tablet 1 tablet = 88 mcg, By Mouth, Daily, # 90 tablet, 3 Refills, Maintenance, 08/01/23 13:54:00 EST, Tablet, [facility]/pharmacy #[id number], Partial fill upon patient request if the prescription is for a schedule II opioid drug., 155, cm, 05/28/23 11:02:00 EDT, Height... Start Date: 08/01/23 Status: Ordered lisinopril 5 mg oral tablet 1, tablet, By Mouth, Daily, # 90 tablet, Refills 3, Tot. Refills 3, Maintenance, 03/15/23 17:16:00 EDT, Route to Pharmacy Electronically, [facility], 155, cm, 03/15/23 17:11:00EDT, Height, 93.4, kg, 11/01/21 16:52:00 EDT, Dry W... Start Date: 03/15/23 Status: Ordered Mapap 500 mg oral capsule See Instructions, TAKE 2 CAPSULES BY MOUTH 4 TIMES A DAY NEEDED FOR PAIN, # 480 capsule, 0 Refills, Maintenance, 08/01/23 13:54:00 EST, [facility]/pharmacy #[id number], 155, cm, 05/28/23 11:02:00 EDT, Height, 93.4, kg, 11/01/21 16:52:00 EDT, Dry Weight Start Date: 08/01/23 Status: Ordered Power [place] Lift with [place] split-leg sling Power [place] Lift with [place] split-leg sling, See Instructions, # 1 each, [...] 0 Refills, Maintenance, 08/08/23 18:05:00 EST, Tablet, [facility]/pharmacy #[id number], Partial fill upon patient request [...] 11/23/23 2:50:00 EDT, 08/03/23 2:50:00 EST, Tablet, [facility]... Start Date: 08/03/23 Stop Date: 11/23/23 [...] 90 capsule, 1 Refills, 12/11/22 15:16:00 EDT, [facility]/pharmacy #[id number], 155, cm, 10/10/22 13:40:00 EST, Height, 93.4, kg, 11/01/21 16:52:00 EDT, Dry Weight Start Date: 12/11/22 Status: Ordered Xarelto 20 mg oral tablet See Instructions, TAKE 1 TABLET DAILY AT SUPPER, # 90 tablet, 3 Refills, Maintenance, 01/17/23 9:37:00 EDT, [facility], 155, cm, 10/10/22 [...] Team Personnel Name: Juliann Rich RN Position: [facility] RN Member Role: Primary Care Nurse Name: Elsa Allen NP Position: [facility] Outreach Member Role: Primary Care Nurse Address: Address: [address] [place] [address]- [place] Name: Emma Mendoza RN Position: [facility] Nurse Member Role: Primary Care Nurse Name: Kristen Zambrano MD Position: [facility] Physician - Primary Care Member Role: PCP Address: Address: [address] [place] [phone]- [place] Name: Komal Goodrich Position: [facility] Outreach Member Role: Lifetime Consulting Physician Name: oGdfrey Cano Position: [facility] RN Member Role: Primary Care Nurse Name: Anette Miranda RN Position: [facility] Onco RN Member Role: Primary Care Nurse Name: Ila LIM(Hem/Onc)Blake Position: [facility] Physician - Oncology Med Service: Hematology & Oncology Member Role: Admitting Physician Address: Address: [address] [facility] [place] [address]- Care Team Related Persons Name: DIOMEDES WARNER Address: home [address] [place] [address] Name: MOO HOWELL Address: home [address] [place] [address] Name: MARLON GENTILE
--- OUTSIDE RECORDS SUMMARY | 2024-03-17 13:31 | XMS_ITS | Continuity of Care Document ---
Author Organization [facility] Address [address] [place] [address]- Care Team Providers Care Siderographist Name Role Phone Juan Manuel LIM, Kristen Acosta Primary Care Physic juan alberto Encounter [facility] Date(s): 03/08/23 - 04/07/23 [facility] [address] [place] [address]- Allergies, Adverse Reactions, Alerts Substance Reaction Severity Status morphine hives, SOB Active penicillins hive Active Wellbutrin rash Active Reglan Active cannabis (Schedule I substance) itching/vomiting Active Other Environmental Allergy mercury-fillings Active contrast media (iodine-based) itching throughout body Active Immunizations Given and Recorded Vaccine Date Status Refusal Reason pneumococcal 20-valent conjugate vaccine 05/30/22 Recorded [id number] 12y+ bivalent booster vax 05/12/22 Recorded influenza [...] vaccine, inactivated 04/26/09 Arnoldo rded SARS-CoV-2 mRNA (hdbejpo-bjsk-zycza) vax 03/10/22 Recorded SARS-CoV-2 mRNA (ntqayeb-rhjm-giyjh) vax 10/04/21 Recorded SARS-CoV-2 (COVID-19) mRNA BNT-162b2 [...] Refills, Maintenance, 12/11/22 17:34:00 EDT, Tablet, [facility]/pharmacy #[id number], Partial fill upon patient request if the prescription is for a schedule II opioid drug., 155, cm, 10/10/22 13:40:00 E... Start Date: 12/11/22 Status: Ordered baclofen 20 mg oral tablet 20 mg, 1, tablet, By Mouth, 3 times a day, # 270 tablet, Refills 2, Tot. Refills 2, Maintenance, 12/09/22 12:44:00 EDT, Route to Pharmacy Electronically, [facility], Partial fill upon patient request [...] 2 Refills, Maintenance, 01/06/23 14:02:00EDT, Tablet, [facility]/pharmacy #[id number], Partial [...] Soft Stop, 03/27/23 18:43:00 EDT, Tablet, [facility]/pharmacy #[id number], [...] 01/17/23 19:36:00 EDT, Route to Pharmacy Electronically, [facility], 155, cm, 10/10/22 13:40:00 EST, Height, 93.4,kg, 11/01/21 16:52:00 EDT, Dry Weight Start Date: 01/17/23 Status: Ordered gabapentin 300 mg oral capsule 300 mg, 1, capsule, By Mouth, 3 times a day, # 270 capsule, Refills 2, Tot. Refills 2, Maintenance,02/15/23 7:44:00 EDT, Route to Pharmacy Electronically, Pharmacy, Partial fill upon patient request if the prescription is for... Start Date: 02/15/23 Stop Date: 11/12/23 Status: Ordered Juzo Compression Hose Juzo Compression Hose, See Instructions, # 2 each, Refills 2, Tot. Refills 2, Maintenance, Juzo Compression Hose 2 pairs orlhl-vjz-pqxn Soft Knee FF Petite 20-30 mmHg Silicone, Black Stock Code [id number] I I I Part #[id number] Size I I I SKU... Start Date: 03/12/23 Status: Ordered levothyroxine 0.088 mg oral tablet 1 tablet = 88 mcg, By Mouth, Daily, # 90 tablet, 3 Refills, Maintenance, 03/15/23 17:17:00 EDT, Tablet, Pharmacy, Partial fill upon patient request if the prescription is fora schedule II opioid drug., 155, cm, 03/15/23 17:11... Start Date: 03/15/23 Status: Ordered lisinopril 5 mg oral tablet 1, tablet, By Mouth, Daily, # 90 tablet, Refills 3, Tot. Refills 3, Maintenance, 03/15/23 17:16:00 EDT, Route to Pharmacy Electronically, Pharmacy, 155, cm, 03/15/23 17:11:00EDT, Height, 93.4, kg, 11/01/21 16:52:00 EDT, Dry W... Start Date: 03/15/23 Status: Ordered Mapap 500 mg oral capsule See Instructions, TAKE 2 CAPSULES BY MOUTH 4 TIMES A DAY NEEDED FOR PAIN, # 480 capsule, 0 Refills, Maintenance, 03/12/23 9:16:00 EDT, [facility]/pharmacy #[id number], 155, cm, 10/10/22 13:40:00 EST, Height, 93.4, kg, 11/01/21 16:52:00 EDT, Dry Weight Start Date: 03/12/23 Status: Ordered Power [place] Lift with [place] split-leg sling Power [place] Lift with [place] split-leg sling, See Instructions, # 1 each, [...] Refills, Maintenance, 12/11/22 17:34:00 EDT, Tablet, [facility]/pharmacy #[id number], [...] Member Role: Primary Care Nurse Address: Address: [address] [place] [address] [address] [place] [address]- Name: Emma Mendoza RN Position: [facility] AMB Nurse Member Role: Primary Care Nurse Name: Juan Manuel LIM, Kristen Acosta Position: [facility] Physician - Primary Care Member Role: PCP Address: Address: [address] [place] [address]- Name: Komal Goodrich Position: [facility] Outreach Member Role: Lifetime Consulting Physician Name: Godfrey Cano Position: [facility] RN Member Role: Primary Care Nurse Name: Anette Miranda RN Position: [facility] Onco RN Member Role: Primary Care Nurse Care Team Related Persons Name: DIOMEDES WARNER Address: home [address] [place] [address] Name: MOO HOWELL Address: [address] [place] [address] Name: MARLON GENTILE
--- OUTSIDE RECORDS SUMMARY | 2024-03-17 13:31 | XMS_ITS | Continuity of Care Document ---
Author Organization [facility] Address [address] [place] [address]- Care Team Providers Care Washtub Worker Helper Name Role Phone Jason CENTENO, Efrem Pickering Primary Care Physician [place] [facility] [place]08[place]20 - 02/05/21 [facility] [address] [place] [address]- Attending Physician: Navin LIM, Win Toro Allergies, Adverse Reactions, Alerts Substance Reaction Severity [...]
--- OUTSIDE RECORDS SUMMARY | 2024-03-17 13:31 | XMS_ITS | Continuity of Care Document ---
Author Organization [facility] Address [address] [place] [id number]- Care Team Providers Care Assembler Faucets Name Role Phone Juan Manuel LIM, Kristen Acosta Primary Care Physic juan alberto Encounter [facility] Date(s): 05/10/22 - 05/17/22 [facility] [address] [place] [id number]- Attending Physician: Win Holden MD Referring Physician: [...] vaccine, inactivated 04/26/09 Arnoldo rded SARS-CoV-2 mRNA (nqqqhfh-wddc-vjkbn) vax 03/10/22 Recorded SARS-CoV-2 mRNA (nlwkebl-ritl-ecqhd) vax 10/04/21 Recorded SARS-CoV-2 (COVID-19) mRNA BNT-162b2 [...] tablet, 2 Refills, Maintenance, 02/28/22 8:12:00EDT, Tablet, [facility]/pharmacy #[id number], Partial fill upon patient request if the prescription is for a schedule II opioid drug., 155, cm, 02/23/22 8:04:00 EDT... Start Date: 02/28/22 Status: Ordered baclofen 20 mg oral tablet 20 mg, 1, tablet, By Mouth, 3 times a day, # 270 tablet, Refills 2, Tot. Refills 2, Maintenance, 12/09/22 12:44:00 EDT, Route to Pharmacy Electronically, [facility], Partial fill upon patient request if the prescription is for a... Start Date: 12/09/22 Stop Date: 09/05/23 Status: Ordered baclofen 20 mg oral tablet 20 mg, 1, tablet, By Mouth, 3 times a day, for 90 days, # 270 tablet, Refills 2, Tot. Refills 2, Hard Stop 12/09/22 12:44:00 EDT, 03/14/22 12:44:00 EDT, Route to Pharmacy Electronically, [facility]/pharmacy#[id number], Partial fill upon patient request [...] 3 Refills, Maintenance, 04/02/22 21:13:00 EDT, Gel, [facility]... Start Date: 04/02/22 Status: Ordered electric [...] 01/11/22 13:45:00 EDT, Route to Pharmacy Electronically, [facility] ADIS... Start Date: 01/11/22 Status: Ordered gabapentin 300 mg oral capsule 300 mg, 1, capsule, By Mouth, 3 times a day, # 270 capsule, Refills 2, Tot. Refills 2, Maintenance,05/21/22 7:44:00 EDT, Route to Pharmacy Electronically, [facility] [...] 02/20/22 7:44:00 EDT, Route to Pharmacy Electronically, [facility]/pharmacy#[id number], Partial fill upon patient request if the pre... Start Date: 02/20/22 Stop Date: 05/21/22 Status: Ordered Juzo Compression Hose Juzo Compression Hose, See Instructions, # 2 each, Refills 2, Tot. Refills 2, Maintenance, 20-30mmghg FF Petite (short),Fufal-dnc-kyij, soft knee, black silicone Stock code [id number] Part #[id number], Size III. [facility] [id number], 12/07/21 11:32:00 EDT,... Start Date: 12/07/21 Status: Ordered levothyroxine 0.088 mg oral tablet 1 tablet = 88 mcg, By Mouth, Daily, # 90 tablet, 3 Refills, Maintenance, 03/31/22 13:45:00 EDT, Tablet, [facility] [...] tablet, 0 Refills, Maintenance, 03/02/22 19:14:00 EDT, [facility]/pharmacy #[id number], Partial fill upon patient request if the prescription is for a schedule II opioid drug., 155, cm, 02/23/22 8:04:00 E... Start Date: 03/02/22 Stop Date: 03/12/22 Status: Ordered Power Virginia Lift with [place] split-leg sling Power Virginia Lift with [place] split-leg sling, See Instructions, # 1 each, [...] 3 Refills, Maintenance, 02/28/22 8:12:00 EDT, Tablet, [facility]/pharmacy #[id number], [...] tablet, 3 Refills, Maintenance, 02/01/22 12:42:00EDT, Tablet, [facility], [...] Juan Manuel LIM, Kristen Acosta Address: Address: [address] [place] [address]
--- OUTSIDE RECORDS SUMMARY | 2024-03-17 13:31 | XMS_ITS | Continuity of Care Document ---
Author Organization [facility] Address [address] [place] [address]- Care Team Providers Care Condominium Manager Name Role Phone Juan Manuel LIM, Kristen Acosta Primary Care Physic juan alberto Encounter [facility] Date(s): 03/24/22 - 04/23/22 [facility] [address] [place] [address]- Allergies, Adverse Reactions, Alerts Substance Reaction Severity [...] vaccine, inactivated 04/26/09 Arnoldo rded SARS-CoV-2 mRNA (hdhmivq-joyf-opkxm) vax 03/10/22 Recorded SARS-CoV-2 mRNA (sooxpec-huii-riizs) vax 10/04/21 Recorded SARS-CoV-2 (COVID-19) mRNA BNT-162b2 [...] tablet, 2 Refills, Maintenance, 02/28/22 8:12:00EDT, Tablet, [facility]/pharmacy #[id number], Partial fill upon patient request if the prescription is for a schedule II opioid drug., 155, cm, 02/23/22 8:04:00 EDT... Start Date: 02/28/22 Status: Ordered baclofen 20 mg oral tablet 20 mg, 1, tablet, By Mouth, 3 times a day, # 270 tablet, Refills 2, Tot. Refills 2, Maintenance, 12/09/22 12:44:00 EDT, Route to Pharmacy Electronically, [facility], Partial fill upon patient request if the prescription is for a... Start Date: 12/09/22 Stop Date: 09/05/23 Status: Ordered baclofen 20 mg oral tablet 20 mg, 1, tablet, By Mouth, 3 times a day, for 90 days, # 270 tablet, Refills 2, Tot. Refills 2, Hard Stop 12/09/22 12:44:00 EDT, 03/14/22 12:44:00 EDT, Route to Pharmacy Electronically, [facility]/pharmacy#[id number], Partial fill upon patient request if the pre... Start Date: 03/14/22 Stop Date: 12/09/22 Status: Ordered bifidobacterium-lactobacillus oral tablet 2 tablet, By Mouth, 2 times a day, [facility] Brand please (Senior Wellness), # 360 tablet, 3 Refills, Maintenance, 08/11/21 17:02:00 EST, Tablet, [facility]/pharmacy #[id number], Partial fill upon patient request if the prescription is for a schedule II opioid drug., 2... Start Date: 08/11/21 Stop Date: 08/06/22 Status: Ordered calcium carbonate 600 mg oral tablet 1 tablet = 600 mg, By Mouth, 2 times a day, # 180 tablet, 2 Refills, Maintenance, 01/06/23 14:02:00EDT, Tablet, [facility]/pharmacy #[id number], Partial fill upon patient [...] 01/06/23 14:02:00 EDT, 01/11/22 14:02:00 EDT, Tablet, [facility], Partial fill upon patient request if the prescription is for a schedul... Start Date: 01/11/22 Stop Date: 01/06/23 Status: Ordered Centrum Silver Ultra Women's oral tablet 1 tablet, By Mouth, Daily, 0 Refills, Maintenance, 07/09/18 8:43:55 EST Start Date: 07/09/18 Status: Ordered [facility] SENIOR PROBIOTIC CAPSULE TAKE 2 CAPSULES BY MOUTH TWICE A DAY Start Date: 11/01/21 Status: Ordered diclofenac 1% topical gel 1 application, Topically, 4 times a day, Apply 4 gram QID prn to affected pain to dropped foot - not to exceed 16 grams/day/single joint of lower extremities, # 100 Gm, 3 Refills, Maintenance, 04/02/22 21:13:00 EDT, Gel, [facility]... Start Date: 04/02/22 Status: Ordered electric [...] 450 mL, 5 Refills, 03/02/22 8:08:00 EDT, [facility]/pharmacy #[id number], 155, cm, 02/23/22 8:04:00 [...] 01/02/22 9:03:00 EDT, Route to Pharmacy Electronically, [facility], Partial fill upon patient [...] 01/11/22 13:45:00 EDT, Route to Pharmacy Electronically, [facility]... Start Date: 01/11/22 Status: Ordered gabapentin 300 mg oral capsule 300 mg, 1, capsule, By Mouth, 3 times a day, # 270 capsule, Refills 2, Tot. Refills 2, Maintenance,05/21/22 7:44:00 EDT, Route to Pharmacy Electronically, [facility], Partial fill upon patient request if the prescription is for... Start Date: 05/21/22 Stop Date: 02/15/23 Status: Ordered gabapentin 300 mg oral capsule 300 mg, 1, capsule, By Mouth, 3 times a day, for 30 days, # 90 capsule, Refills 2, Tot. Refills 2, Hard Stop 05/21/22 7:44:00 EDT, 02/20/22 7:44:00 EDT, [id number] Partial fill upon patient request if the pre... Start Date: 02/20/22 Stop Date: 05/21/22 Status: Ordered Juzo Compression Hose Juzo Compression Hose, See Instructions, # 2 each, Refills 2, Tot. Refills 2, Maintenance, 20-30mmghg FF Petite (short),Ygssw-hmn-ziia, soft knee, black silicone Stock code [id number] Part #[id number], Size III. [facility] [id number], 12/07/21 11:32:00 EDT,... Start Date: 12/07/21 Status: Ordered levothyroxine 0.088 mg oral tablet 1 tablet = 88 mcg, By Mouth, Daily, # 90 tablet, 3 Refills, Maintenance, 03/31/22 13:45:00 EDT, Tablet, [facility], Partial fill upon patient request if the prescription is fora schedule II opioid drug., 155, cm, 03/14/22 11:11... Start Date: 03/31/22 Status: Ordered lisinopril 5 mg oral tablet 5 mg, 1, tablet, By Mouth, Daily, # 90 tablet, Refills 3, Tot. Refills 3, Maintenance, 02/24/22 15:53:00 EDT, [id number] Partial fill upon patient request [...] 03/12/22 Status: Ordered Power Virginia Lift with [place] split-leg sling Power Virginia Lift with [place]ph[place] split-leg sling, See Instructions, # 1 each, [...] tablet, 3 Refills, Maintenance, 02/01/22 12:42:00EDT, Tablet, [facility], Partial fill upon patient [...] Sex Care Team Personnel Name: Juan Manuel ILM, Kristen Acosta [facility] [address]
--- OUTSIDE RECORDS SUMMARY | 2024-03-17 13:31 | XMS_ITS | Continuity of Care Document ---
Author Organization [facility] Address [address] [place] [address]- Care Team Providers Care Senior Product Consultant Name Role Phone Juan Manuel LIM, Kristen Acosta Primary Care Physic juan alberto Encounter [facility] [place] Date(s): 05/01/22 - 05/31/22 [facility] [address] [place] [id number] Allergies, Adverse Reactions, Alerts Substance Reaction Severity [...] vaccine, inactivated 04/26/09 Arnoldo rded SARS-CoV-2 mRNA (rsjmzcv-pkqo-skgml) vax 03/10/22 Recorded SARS-CoV-2 mRNA (jcwqgef-lrwa-havme) vax 10/04/21 Recorded SARS-CoV-2 (COVID-19) mRNA BNT-162b2 [...] tablet, 2 Refills, Maintenance, 02/28/22 8:12:00EDT, Tablet, [facility]/pharmacy #[id number], Partial fill upon patient request if the prescription is for a schedule II opioid drug., 155, cm, 02/23/22 8:04:00 EDT... Start Date: 02/28/22 Status: Ordered baclofen 20 mg oral tablet 20 mg, 1, tablet, By Mouth, 3 times a day, # 270 tablet, Refills 2, Tot. Refills 2, Maintenance, 12/09/22 12:44:00 EDT, Route to Pharmacy Electronically, [facility] [...] 12:44:00 EDT, [id number] fill upon patient request if the pre... Start Date: 03/14/22 Stop Date: 12/09/22 Status: Ordered bifidobacterium-lactobacillus oral tablet 2 tablet, By Mouth, 2 times a day, [facility] Brand please (Senior Wellness), # 360 tablet, 3 Refills, Maintenance, 08/11/21 17:02:00 EST, Tablet, [facility]/pharmacy #[id number], Partial fill upon patient request if the prescription is for a schedule II opioid drug., 2... Start Date: 08/11/21 Stop Date: 08/06/22 Status: Ordered calcium carbonate 600 mg oral tablet 1 tablet = 600 mg, By Mouth, 2 times a day, # 180 tablet, 2 Refills, Maintenance, 01/06/23 14:02:00EDT, Tablet, [facility]/pharmacy #[id number], Partial fill upon patient [...] 14:02:00 EDT, 01/11/22 14:02:00 EDT, Tablet, [facility], Partial fill upon patient request if [...] 07/25/22 8:59:00 EST, 05/26/22 8:59:00 EDT, Cream, [facility]/pharmacy #[id number], Partial fill upon patient request if the prescription is for a schedule II opioid drug., 1 applicat... Start Date: 05/26/22 Stop Date: 07/25/22 Status: Ordered [facility] SENIOR PROBIOTIC CAPSULE TAKE 2 CAPSULES BY MOUTH TWICE A DAY Start Date: 11/01/21 Status: Ordered diclofenac 1% topical gel 1 application, Topically, 4 times a day, Apply 4 gram QID prn to affected pain to dropped foot - not to exceed 16 grams/day/single joint of lower extremities, # 100 Gm, 3 Refills, Maintenance, 04/02/22 21:13:00 EDT, Gel, [facility]... Start Date: 04/02/22 [...] 450 mL, 5 Refills, 03/02/22 8:08:00 EDT, [facility]/pharmacy #[id number], 155, cm, 02/23/22 8:04:00 [...] Refills, Soft Stop, 05/26/22 8:59:00 EDT, Tablet, [facility]/pharmacy #[id number], Partial fill upon patient [...] 13:45:00 EDT, Route to Pharmacy Electronically, [facility]... Start Date: 01/11/22 Status: Ordered gabapentin 300 mg oral capsule 300 mg, 1, capsule, By Mouth, 3 times a day, # 270 capsule, Refills 2, Tot. Refills 2, Maintenance,05/21/22 7:44:00 EDT, Route to Pharmacy Electronically, [facility], Partial fill upon patient request if the prescription is for... Start Date: 05/21/22 Stop Date: 02/15/23 Status: Ordered Juzo Compression Hose Juzo Compression Hose, See Instructions, # 2 each, Refills 2, Tot. Refills 2, Maintenance, 20-30mmghg FF Petite (short),Fflda-dtt-yzde, soft knee, black silicone Stock code [id number] Part #[id number], Size III. [facility] [id number], 12/07/21 11:32:00 EDT,... Start Date: 12/07/21 Status: Ordered levothyroxine 0.088 mg oral tablet 1 tablet = 88 mcg, By Mouth, Daily, # 90 tablet, 3 Refills, Maintenance, 03/31/22 13:45:00 EDT, Tablet, [facility], Partial fill upon patient request if the prescription is fora schedule II opioid drug., 155, cm, 03/14/22 11:11... Start Date: 03/31/22 Status: Ordered lisinopril 5 mg oral tablet 5 mg, 1, tablet, By Mouth, Daily, # 90 tablet, Refills 3, Tot. Refills 3, Maintenance, 02/24/22 15:53:00 EDT, Route to Pharmacy Electronically, [facility]/pharmacy #[id number], Partial fill upon patient request if the prescription is for a schedule II opioid drug.... Start Date: 02/24/22 Status: Ordered Potassium Chloride (Eqv-K-Tab) 20 mEq oral tablet, extended release 1 tablet = 20 mEq, By Mouth, Daily, for low potassium, # 10 tablet, 0 Refills, Maintenance, 03/02/22 19:14:00 EDT, [facility]/pharmacy #[id number], Partial fill upon patient request if the prescription is for a schedule II opioid drug., 155, cm, 02/23/22 8:04:00 E... Start Date: 03/02/22 Stop Date: 03/12/22 Status: Ordered Power Virginia Lift with [place] split-leg sling Power Virginia Lift with [place] split-leg sling, See Instructions, # 1 each, [...] 3 Refills, Maintenance, 02/28/22 8:12:00 EDT, Tablet, [facility]/pharmacy #[id number], Partial fill upon patient [...] 90 capsule, 2 Refills, 02/28/22 8:13:00 EDT, [facility]/pharmacy #[id number], 155,cm, 02/23/22 8:04:00 EDT, Height, 93.4, kg, 11/01/21 16:52:00 EDT, Dry Weight Start Date: 02/28/22 Status: Ordered Xarelto 20 mg oral tablet 1 tablet = 20 mg, By Mouth, Daily at supper, # 90 tablet, 3 Refills, Maintenance, 02/01/22 12:42:00EDT, Tablet, [facility], Partial fill [...] Manuel LIM, Kristen Acosta Address: Address: [address] [place], [place] [address]
--- OUTSIDE RECORDS SUMMARY | 2024-03-17 13:31 | XMS_ITS | Continuity of Care Document ---
Author Organization [facility] Address [address], [address] [place] [address]- Care Team Providers Care Book Canvasser Name Role Phone Juan Manuel LIM, Kristen Acosta Primary Care Physic juan alberto Encounter 12/31/23 - 02/09/24 [facility] [address], [address] [place] [address]- Attending Physician: Kristen Zambrano MD Admitting Physician: Kristen Zambrano MD Referring Physician: Kristen Zambrano MD Allergies, Adverse Reactions, Alerts Substance Reaction Severity Status morphine hives, SOB Active penicillins hive Active Wellbutrin rash Active Reglan Active cannabis (Schedule I substance) itching/vomiting Active Other Environmental Allergy mercury-fillings Active contrast media (iodine-based) itching throughout body Active Immunizations Given and Recorded Vaccine Date Status Refusal Reason SARS-CoV-2(COVID-19)mRNA-LNP vac([id number]) 10/19/23 Recorded SARS-CoV-2(COVID-19)mRNA-LNP vac([id number]) 07/03/23 Recorded RSV vaccine preF3, recombinant 05/19/23 [...] influenza virus vaccine, inactivated 04/26/09 Arnoldo rded [id number] 12y+ bivalent booster vax 01/23/23 Recorded [id number] 12y+ bivalent booster vax 05/12/22 Recorded pneumococcal 20-valent conjugate vaccine 05/30/22 Recorded SARS-CoV-2 mRNA (akvqwvw-hbli-qalfb) vax 03/10/22 Recorded SARS-CoV-2 mRNA (qfmosyy-luzf-adhiz) vax 10/04/21 Recorded SARS-CoV-2 (COVID-19) mRNA BNT-162b2 [...] 1 Refills, Maintenance, 08/01/23 13:53:00 EST, Tablet, [facility]/pharmacy #[id number], Partial fill upon patient request if the prescription is for a schedule II opioid drug., 155, cm, 05/28/23 11:02:00 E... Start Date: 08/01/23 Status: Ordered baclofen 20 mg oral tablet 20 mg, 1, tablet, By Mouth, 3 times a day, for 90 days, # 270 tablet, Refills 2, Tot. Refills 2, Hard Stop 06/01/24 12:44:00 EDT, 09/05/23 12:44:00 EST, Route to Pharmacy Electronically, [facility], Partial fill upon patient req... Start Date: 09/05/23 Stop Date: 06/01/24 Status: Ordered baclofen 20 mg oral tablet 20 mg, 1, tablet, By Mouth, 3 times a day, for 90 days, # 270 tablet, Refills 1, Tot. Refills 1, Hard Stop 06/25/24 10:31:00 EST, 12/28/23 10:31:00 EDT, Route to Pharmacy Electronically, [facility], Partial fill upon patient req... Start Date: 12/28/23 Stop Date: 06/25/24 Status: Ordered baclofen 20 mg oral tablet 20 mg, 1, tablet, By Mouth, 3 times a day, # 270 tablet, Refills 0, Tot. Refills 0, Maintenance, 06/25/24 10:31:00 EST, Route to Pharmacy Electronically, [facility] [...] 09/05/23 12:44:00 EST, [id number] Partial fill upon patient request if the pre... Start Date: 09/05/23 Stop Date: 06/01/24 Status: Ordered bifidobacterium-lactobacillus oral tablet 2 tablet, By Mouth, 2 times a day, [facility] Brand please ([facility]), # 360 tablet, 3 Refills, Maintenance, 08/11/21 17:02:00 EST, Tablet, [facility]/pharmacy #[id number], Partial fill upon patient request if the prescription is for a schedule II opioid drug., 2... Start Date: 08/11/21 Stop Date: 08/06/22 Status: Ordered calcium carbonate 600 mg oral tablet 1 tablet = 600 mg, By Mouth, 2 times a day, # 180 tablet, 2 Refills, Maintenance, 01/06/23 14:02:00EDT, Tablet, [facility]/pharmacy #[id number], Partial fill upon patient request if the prescription is for a schedule II opioid drug., 155, cm, 02/23/22 8:04:00 EDT... Start Date: 01/06/23 Stop Date: 10/03/23 Status: Ordered Centrum Silver Ultra Women's oral tablet 1 tablet, By Mouth, Daily, 0 Refills, Maintenance, 07/09/18 8:43:55 EST Start Date: 07/09/18 Status: Ordered [facility] SENIOR PROBIOTIC CAPSULE TAKE 2 [...] 450 mL, 5 Refills, 03/02/22 8:08:00 EDT, [facility]/pharmacy #[id number], 155, cm, 02/23/22 8:04:00 [...] Refills, Soft Stop, 03/27/23 18:43:00 EDT, Tablet, [facility]/pharmacy #[id number], Partial fill upon patient request if the prescription is for a schedule II opioid... Start Date: 03/27/23 Status: Ordered fluconazole 150 mg oral tablet 1 tablet = 150 mg, By Mouth, Every week, # 4 tablet, 1 Refills, Soft Stop, 05/26/22 8:59:00 EDT, Tablet, [facility]/pharmacy #[id number], Partial fill upon patient [...] 07/03/23 1:01:00 EST, Route to Pharmacy Electronically, [facility], 155, cm, 05/28/23 11:02:00 EDT, Height, 93.4, kg, 11/01/21 16:52:00 EDT, Dry Weight Start Date: 07/03/23 Status: Ordered gabapentin 300 mg oral capsule 300 mg, 1, capsule, By Mouth, 3 times a day, # 270 capsule, Refills 1, Tot. Refills 1, Maintenance,12/28/23 10:30:00 EDT, Route to [facility]acy Electronically, [facility], Partial[facility] upon patient request if the [...] 2, Maintenance, Juzo Compression Hose 2 pairs vbwfz-vec-yvek Soft Knee FF Petite 20-30 mmHg Silicone, Black Stock Code [id number] I I I Part #[id number] Size I I I SKU... Start Date: 03/12/23 Status: Ordered levothyroxine 0.088 mg oral tablet 1 tablet = 88 mcg, By Mouth, Daily, # 90 tablet, 1 Refills, Maintenance, 10/01/23 17:11:00 EST, Tablet, [facility]/pharmacy #[id number], Partial fill upon patient request if the prescription is for a schedule II opioid drug., 155, cm, 05/28/23 11:02:00 EDT, Height... Start Date: 10/01/23 Status: Ordered lisinopril 5 mg oral tablet 1, tablet, By Mouth, Daily, # 90 tablet, Refills 1, Tot. Refills 1, Maintenance, 10/01/23 17:15:00 EST, Route to Pharmacy Electronically, [facility]/pharmacy #[id number], 155, cm, 05/28/23 11:02:00 EDT, Height, 93.4, kg, 11/01/21 16:52:00 EDT, Dry Weight Start Date: 10/01/23 Status: Ordered Mapap 500 mg oral capsule See Instructions, TAKE 2 CAPSULES BY MOUTH 4 TIMES A DAY NEEDED FOR PAIN, # 480 capsule, 0 Refills, Maintenance, 11/12/23 15:45:00 EDT, [facility]/pharmacy #[id number], 155, cm, 05/28/23 11:02:00 EDT, Height Start Date: 11/12/23 Status: Ordered Power Virginia Lift with [place] split-leg sling Power [place] Lift with [place] split-leg sling, See Instructions, # 1 each, [...] 90 capsule, 1 Refills, 12/11/22 15:16:00 EDT, [facility]/pharmacy #[id number], 155, cm, 10/10/22 13:40:00 [...] Team Personnel Name: Juliann Rich RN Position: [facility] RN Member Role: Primary Care Nurse Name: Elsa Allen NP Position: [facility] Outreach Member Role: Primary Care Nurse Address: Address: [address] [place] [address] SINDY Padron [address]- Name: Emma Mendoza RN Position: [facility] Nurse Member Role: Primary Care Nurse Name: Juan Manuel LIM, Kristen Acosta Position: [facility] Physician - Primary Care Member Role: PCP Address: Address: [address] [place] [id number] Name: Anette Soler RN Position: [facility] Onco RN Member Role: Primary Care Nurse Name: Komal Goodrich Position: [facility] Outreach Member Role: Lifetime Consulting Physician Name: Godfrey Cano Position: [facility] RN Member Role: Primary Care Nurse Care Team Related Persons Name: DIOMEDES WARNER Address: [address] [place] [address] Name: MOO HOWELL Address: [address] [place] [address] Name: MARLON GENTILE
--- OUTSIDE RECORDS SUMMARY | 2024-03-17 13:31 | XMS_ITS | Continuity of Care Document ---
Author Organization [facility] Address [address] [place] [address]- Care Team Providers Care Grey Roll Worker Name Role Phone Juan Manuel LIM, Kristen Acosta Primary Care Physic juan alberto Encounter [facility] Date(s): 07/13/21 - 08/12/21 [facility] [address] [place] [address]- Allergies, Adverse Reactions, Alerts Substance Reaction Severity [...] Arnoldo rded influenza virus vaccine, inactivated 04/16/18 Arnolod rded influenza virus vaccine, inactivated 05/07/17 Arnoldo [...] 08/02/21 14:09:00 EST, Route to Pharmacy Electronically, [facility], Partial fill upon patient request if the prescription is for a... Start Date: 08/02/21 Status: Ordered bifidobacterium-lactobacillus oral tablet 2 tablet, By Mouth, 2 times a day, [facility] Brand please (Senior Wellness), # 360 tablet, 3 Refills, Maintenance, 08/11/21 17:02:00 EST, Tablet, [facility]/pharmacy #[id number], Partial fill upon patient request [...] 01/09/22 14:17:00 EDT, 07/13/21 14:17:00 EST, Tablet, [facility], Partial fill upon patient request if the prescription is for a schedul... Start Date: 07/13/21 Stop Date: 01/09/22 Status: Ordered calcium carbonate 600 mg oral tablet 1 tablet = 600 mg, By Mouth, 2 times a day, # 180 tablet, 1 Refills, Maintenance, 01/09/22 14:17:00EDT, Tablet, [facility]/pharmacy #[id number], Partial fill upon patient request [...] 13:39:00 EDT, Route to Pharmacy Electronically, [facility], Partial fill upon patient request if the prescription is for a schedule... Start Date: 04/05/21 Stop Date: 05/05/21 Status: Ordered gabapentin 300 mg oral capsule 300 mg, 1, capsule, By Mouth, Daily at bedtime, # 90 capsule, Refills 2, Tot. Refills 2, Maintenance, 08/02/21 14:08:00 EST, Route to Pharmacy Electronically, [facility], Partial fill upon patient request if the prescription is... Start Date: 08/02/21 Status: Ordered levothyroxine 0.088 mg oral tablet 1 tablet = 88 mcg, By Mouth, Daily, # 90 tablet, 1 Refills, Maintenance, 07/13/21 14:09:00 EST, Tablet, [facility], Partial fill upon patient request if the prescription is fora schedule II opioid drug., 153, cm, 06/27/21 7:47:... Start Date: 07/13/21 Status: Ordered lisinopril 5 mg oral tablet 5 mg, 1, tablet, By Mouth, Daily, # 90 tablet, Refills 1, Tot. Refills 1, Maintenance, 07/13/21 14:08:00 EST, Route to Pharmacy Electronically, [facility], Partial fill upon patient request if the prescription is for a schedule... Start Date: 07/13/21 Status: Ordered Power [place] Lift with [place] split-leg sling Power Virginia Lift with Neon split-leg sling, See Instructions, # 1 each, Refills 0, Tot. Refills 0, Maintenance, Dx: Multiple Sclerosis induced Paraplegia Length of time needed: indefinite Purpose: Transfer to/[facility] bed to wheelchair, commode,... Start Date: 08/10/21 Status: Ordered Provigil 200 mg oral tablet 1 tablet = 200 mg, By Mouth, 2 times a day, takes in am and lunchtime brand name only - dispense aswritten, # 56 tablet, 1 Refills, Maintenance, 07/14/21 17:19:00 EST, Tablet, [facility] [...] 90 capsule, 1 Refills, 08/11/21 17:04:00 EST, [facility]/pharmacy #[id number], 153, cm, 06/27/21 7:47:00 EST, [...]
--- OUTSIDE RECORDS SUMMARY | 2024-03-17 13:32 | XMS_ITS | Continuity of Care Document ---
Author Organization [facility] Address [address], [address], [address] [place] [address]- Care Team Providers Care Assistant Professor Of Education Name Role Phone Juan Manuel LIM, Kristen Acosta Primary Care Physic juan alberto Encounter [facility] Date(s): 08/01/23 - 08/31/23 [facility] [address], [address], [address] [place] [address]- Allergies, Adverse Reactions, Alerts Substance Reaction Severity Status morphine hives, SOB Active penicillins hive Active Wellbutrin rash Active Reglan Active cannabis (Schedule I substance) itching/vomiting Active Other Environmental Allergy mercury-fillings Active contrast media (iodine-based) itching throughout body Active Immunizations Given and Recorded Vaccine Date Status Refusal Reason pneumococcal 20-valent conjugate vaccine 05/30/22 Recorded [id number] 12y+ bivalent booster vax 05/12/22 Recorded influenza [...] vaccine, inactivated 04/26/09 Arnoldo rded SARS-CoV-2 mRNA (kdehsdh-xabb-zludx) vax 03/10/22 Recorded SARS-CoV-2 mRNA (hixjpdt-megh-uvtmd) vax 10/04/21 Recorded SARS-CoV-2 (COVID-19) mRNA BNT-162b2 [...] 1 Refills, Maintenance, 08/01/23 13:53:00 EST, Tablet, [facility]/pharmacy #[id number], Partial fill upon patient request [...] 09/05/23 12:44:00 EST, Route to Pharmacy Electronically, [facility], Partial fill upon patient [...] 09/05/23 12:44:00 EST, Route to Pharmacy Electronically, [facility]/pharmacy #[id number], Partial fill upon patientrequest if the prescription is for a schedule II op... Start Date: 09/05/23 Stop Date: 06/01/24 Status: Ordered bifidobacterium-lactobacillus oral tablet 2 tablet, By Mouth, 2 times a day, [facility] Brand please (Senior Wellness), # 360 tablet, 3 Refills, Maintenance, 08/11/21 17:02:00 EST, Tablet, [facility]/pharmacy #[id number], Partial fill upon patient request if the prescription is for a schedule II opioid drug., 2... Start Date: 08/11/21 Stop Date: 08/06/22 Status: Ordered calcium carbonate 600 mg oral tablet 1 tablet = 600 mg, By Mouth, 2 times a day, # 180 tablet, 2 Refills, Maintenance, 01/06/23 14:02:00EDT, Tablet, [facility]/pharmacy #[id number], Partial fill upon patient request if the prescription is for a schedule II opioid drug., 155, cm, 02/23/22 8:04:00 EDT... Start Date: 01/06/23 Stop Date: 10/03/23 Status: Ordered Centrum Silver Ultra Women's oral tablet 1 tablet, By Mouth, Daily, 0 Refills, Maintenance, 07/09/18 8:43:55 EST Start Date: 07/09/18 Status: Ordered [facility] SENIOR PROBIOTIC CAPSULE TAKE 2 CAPSULES BY MOUTH TWICE A DAY Start Date: 11/01/21 Status: Ordered [facility] Senior Probiotic Capsule [facility] Senior Probiotic Capsule, See Instructions, # [...] 450 mL, 5 Refills, 03/02/22 8:08:00 EDT, [facility]/pharmacy #[id number], 155, cm, 02/23/22 8:04:00 EDT, [...] Refills, Soft Stop, 03/27/23 18:43:00 EDT, Tablet, [facility]/pharmacy #[id number], Partial fill upon patient request if the prescription is for a schedule II opioid... Start Date: 03/27/23 Status: Ordered fluconazole 150 mg oral tablet 1 tablet = 150 mg, By Mouth, Every week, # 4 tablet, 1 Refills, Soft Stop, 05/26/22 8:59:00 EDT, Tablet, [facility]/pharmacy #[id number], Partial fill upon patient request [...] 07/03/23 1:01:00 EST, Route to Pharmacy Electronically, [facility], 155, cm, 05/28/23 [...] 2, Maintenance, Juzo Compression Hose 2 pairs [id number] Soft Knee FF Petite 20-30 mmHg Silicone, Black Stock Code [id number] I I I Part #[id number] Size I I I SKU... Start Date: 03/12/23 Status: Ordered levothyroxine 0.088 mg oral tablet 1 tablet = 88 mcg, By Mouth, Daily, # 90 tablet, 3 Refills, Maintenance, 08/01/23 13:54:00 EST, Tablet, [facility]/pharmacy #[id number], Partial fill upon patient request [...] capsule, 0 Refills, Maintenance, 08/01/23 13:54:00 EST, [facility]/pharmacy #[id number], 155, cm, 05/28/23 11:02:00 EDT, Height, 93.4, kg, 11/01/21 16:52:00 EDT, Dry Weight Start Date: 08/01/23 Status: Ordered Power Virginia Lift with [place] split-leg sling Power Virginia Lift with [place] split-leg sling, See Instructions, # 1 each, [...] 0 Refills, Maintenance, 08/08/23 18:05:00 EST, Tablet, [facility]/pharmacy #[id number], Partial fill upon patient request [...] 11/23/23 2:50:00 EDT, 08/03/23 2:50:00 EST, Tablet, [facility]... Start Date: 08/03/23 Stop Date: 11/23/23 [...] 90 capsule, 1 Refills, 12/11/22 15:16:00 EDT, [facility]/pharmacy #[id number], 155, cm, 10/10/22 13:40:00 EST, Height, 93.4, kg, 11/01/21 16:52:00 EDT, Dry Weight Start Date: 12/11/22 Status: Ordered Xarelto 20 mg oral tablet See Instructions, TAKE 1 TABLET DAILY AT SUPPER, # 90 tablet, 3 Refills, Maintenance, 01/17/23 9:37:00 EDT, [facility], 155, cm, 10/10/22 [...] Team Personnel Name: Juliann Rich RN Position: [facility] RN Member Role: Primary Care Nurse Name: Elsa Allen NP Position: [facility] Outreach Member Role: Primary Care Nurse Address: Address: [address] [place] [address] [address] [place] [address]- [place] Name: Emma Mendoza RN Position: [facility] AMB Nurse Member Role: Primary Care Nurse Name: Juan Manuel LIM, Kristen Acosta Position: [facility] Physician - Primary Care Member Role: PCP Address: Address: [address] [place] [address]- Name: Komal Goodrich Position: [facility] Outreach Member Role: Lifetime Consulting Physician Name: Godfrey Cano Position: [facility] RN Member Role: Primary Care Nurse Name: Anette Miranda RN Position: [facility] Onco RN Member Role: Primary Care Nurse Care Team Related Persons Name: DIOMEDES WARNER Address: [address] [place] [address] Name: MOO HOWELL Address: home [address] [place] [address] Name: MARLON GENTILE
--- OUTSIDE RECORDS SUMMARY | 2024-03-17 13:32 | XMS_ITS | Continuity of Care Document ---
Author Organization [facility] Address [address] [place] [address]- Care Team Providers Care Economic Forecaster Name Role Phone Juan Manuel LIM, Kristen Acosta Primary Care Physic juan alberto Encounter [facility] Date(s): 07/25/22 - 08/24/22 [facility] [address] [place] [address]- Allergies, Adverse Reactions, Alerts Substance Reaction Severity Status morphine hives, SOB Active penicillins hive Active Wellbutrin rash Active Reglan Active cannabis (Schedule I substance) itching/vomiting Active Other Environmental Allergy mercury-fillings Active contrast media (iodine-based) itching throughout body Active Immunizations Given and Recorded Vaccine Date Status Refusal Reason pneumococcal 20-valent conjugate vaccine 05/30/22 Recorded [id number] 12y+ bivalent booster vax 05/12/22 Recorded influenza [...] vaccine, inactivated 04/26/09 Arnoldo rded SARS-CoV-2 mRNA (qjtgfur-tctr-qhtjj) vax 03/10/22 Recorded SARS-CoV-2 mRNA (skfpugc-mlzq-dyadu) vax 10/04/21 Recorded SARS-CoV-2 (COVID-19) mRNA BNT-162b2 [...] 1 Refills, Maintenance, 08/24/22 16:47:00 EST, Tablet, [facility], Partial fill upon patient request if the prescription is for a schedule II opioid drug., 155, cm, 06/15... Start Date: 08/24/22 Status: Ordered baclofen 20 mg oral tablet 20 mg, 1, tablet, By Mouth, 3 times a day, # 270 tablet, Refills 2, Tot. Refills 2, Maintenance, 12/09/22 12:44:00 EDT, Route to Pharmacy Electronically, [facility] [...] 03/14/22 12:44:00 EDT, Route to Pharmacy Electronically, [facility]/pharmacy#[id number], Partial fill upon patient request if the pre... Start Date: 03/14/22 Stop Date: 12/09/22 Status: Ordered bifidobacterium-lactobacillus oral tablet 2 tablet, By Mouth, 2 times a day, [facility] Brand please (Senior Wellness), # 360 tablet, 3 Refills, Maintenance, 08/11/21 17:02:00 EST, Tablet, [facility]/pharmacy #[id number], Partial fill upon patient request if the prescription is for a schedule II opioid drug., 2... Start Date: 08/11/21 Stop Date: 08/06/22 Status: Ordered calcium carbonate 600 mg oral tablet 1 tablet = 600 mg, By Mouth, 2 times a day, # 180 tablet, 2 Refills, Maintenance, 01/06/23 14:02:00EDT, Tablet, [facility]/pharmacy #[id number], Partial fill upon patient [...] 8:43:55 EST Start Date: 07/09/18 Status: Ordered [facility] SENIOR PROBIOTIC CAPSULE TAKE 2 CAPSULES BY MOUTH TWICE A DAY Start Date: 11/01/21 Status: Ordered [facility] Senior Probiotic Capsule [facility] Senior Probiotic Capsule, See Instructions, [...] 3 Refills, Maintenance, 04/02/22 21:13:00 EDT, Gel, [facility]... Start Date: 04/02/22 Status: [...] 450 mL, 5 Refills, 03/02/22 8:08:00 EDT, [facility]/pharmacy #[id number], 155, cm, 02/23/22 8:04:00 [...] Refills, Soft Stop, 05/26/22 8:59:00 EDT, Tablet, [facility]/pharmacy #[id number], Partial fill upon patient [...] EDT, [facility] Start Date: 01/11/22 Status: Ordered gabapentin [...] Tot. Refills 2, Maintenance, 20-30mmghg FF Petite (short),Ocvmj-ryb-pdmh, soft knee, black silicone Stock code [id number] Part #[id number], Size III. [facility] [id number], 12/07/21 11:32:00 EDT,... Start Date: 12/07/21 Status: Ordered levothyroxine 0.088 mg oral tablet 1 tablet = 88 mcg, By Mouth, Daily, # 90 tablet, 0 Refills, Maintenance, 07/26/22 16:49:00 EST, Tablet, [facility], Partial fill upon patient request if the prescription is fora schedule II opioid drug., 155, cm, 07/12/22 14:10... Start Date: 07/26/22 Status: Ordered lisinopril 5 mg oral tablet 5 mg, 1, tablet, By Mouth, Daily, # 90 tablet, Refills 3, Tot. Refills 3, Maintenance, 02/24/22 15:53:00 EDT, Route to Pharmacy Electronically, [facility]/pharmacy #[id number], Partial fill upon patient request if the prescription is for a schedule II opioid drug.... Start Date: 02/24/22 Status: Ordered Mapap 500 mg oral capsule See Instructions, TAKE 2 CAPSULES BY MOUTH 4 TIMES A DAY NEEDED FOR PAIN, # 480 capsule, 3 Refills, Maintenance, 06/04/22 16:03:00 EDT, [id number], 155, cm, 05/25/22 13:44:00 EDT, Height, 93.4, kg, 11/01/21 16:52:00 EDT, Dry Weight Start Date: 06/04/22 Status: Ordered Potassium Chloride (Eqv-K-Tab) 20 mEq oral tablet, extended release 1 tablet = 20 mEq, By Mouth, Daily, for low potassium, # 10 tablet, 0 Refills, Maintenance, 03/02/22 19:14:00 EDT, [facility]/pharmacy #[id number], Partial fill upon patient request if the prescription is for a schedule II opioid drug., 155, cm, 02/23/22 8:04:00 E... Start Date: 03/02/22 Stop Date: 03/12/22 Status: Ordered Power [place] Lift with [place] split-leg sling Power [place] Lift with [place] split-leg sling, See Instructions, # 1 each, [...] 18 tablet, 0Refills, Maintenance, 08/24/22 17:06:00 EST, [facility]/pharmacy #[id number], Partial fill upon patient request if the prescription is for a schedule II opioid drug... Start Date: 08/24/22 Status: Ordered Provigil 200 mg oral tablet 1 tablet = 200 mg, By Mouth, 2 times a day, takes in am and lunchtime brand name only - dispense aswritten, # 56 tablet, 3 Refills, Maintenance, 07/12/22 17:46:00 EST, Tablet, [facility]/pharmacy #[id number], Partial fill upon patient [...] 10/25/22 18:25:00 EDT, 07/05/22 18:25:00 EST, Tablet, [facility], Parti... Start Date: 07/05/22 Stop [...] 90 capsule, 2 Refills, 02/28/22 8:13:00 EDT, [facility]/pharmacy #[id number], 155,cm, 02/23/22 8:04:00 EDT, Height, 93.4, kg, 11/01/21 16:52:00 EDT, Dry Weight Start Date: 02/28/22 Status: Ordered Xarelto 20 mg oral tablet 1 tablet = 20 mg, By Mouth, Daily at supper, # 90 tablet, 3 Refills, Maintenance, 02/01/22 12:42:00EDT, Tablet, [facility], Partial fill upon [...] Team Personnel Name: Juliann Rich RN Position: [facility] RN Member Role: Primary Care Nurse Name: Elsa Allen NP Position: Reference Physician Member Role: Primary Care Nurse Address: Address: [address] [place] [address] [address] [place] [address]- Name: Emma Mendoza RN Position: S RN Member Role: Primary Care Nurse Name: Juan Manuel LIM, Kristen Acosta Position: S Primary Care Physician Member Role: PCP Address: Address: [address] [place] [address]- Name: Jade Medina Position: [facility] RN Member Role: Primary Care Nurse Name: Komal Goodrich Position: [facility] Outreach Member Role: Lifetime Consulting Physician Name: Godfrey Cano Position: [facility] RN Member Role: Primary Care Nurse Name: Anette Miranda RN Position: [facility] Onco RN Member Role: Primary Care Nurse Care Team Related Persons Name: DIOMEDES WARNER Address: [address] [place] [address] Name: MOO HOWELL Address: [address] [place] [address] Name: MARLON GENTILE
--- OUTSIDE RECORDS SUMMARY | 2024-03-17 13:32 | XMS_ITS | Continuity of Care Document ---
Author Organization [facility] Address Unknown Care Team Providers Care Icu Rn Name Role Phone Juan Manuel LIM, Kristen Acosta Primary Care Physic juan alberto Encounter [facility] Date(s): 01/23/22 - 01/30/22 [facility] Attending Physician: Win Holden MD Referring Physician: Kristen Zambrano MD Allergies, Adverse Reactions, Alerts Substance Reaction Severity Status morphine hives, SOB Active Wellbutrin rash Active contrast media (iodine-based) itching throughout body Active penicillins hive Active Reglan Active cannabis (Schedule I substance) itching/vomiting Active Other Environmental Allergy mercury-fillings Active Immunizations Given and Recorded Vaccine Date Status Refusal Reason SARS-CoV-2 mRNA (hvxrsos-fuvh-efuls) vax 10/04/21 Recorded influenza virus vaccine, inactivated [...] 08/02/21 14:09:00 EST, Route to Pharmacy Electronically, [facility], Partial fill upon patient request [...] tablet, 3 Refills, Maintenance, 01/11/22 14:02:00EDT, Tablet, [facility], Partial fill [...] 3 Refills, Maintenance, 01/11/22 14:07:00 EDT, Gel, [facility], Partial fill upon [...] 0 Refills, [id number], 153, cm, 08/30/21 16:43:00 EST, Height Start [...] 01/11/22 13:45:00 EDT, [facility] Start Date: 01/11/22 Status: Ordered gabapentin [...] Tot. Refills 2, Maintenance, 20-30mmghg FF Petite (short),Wtvqw-pqr-mvcu, soft knee, black silicone Stock code [id number] Part #[id number], Size III. [facility] [id number], 12/07/21 11:32:00 EDT,... Start Date: 12/07/21 Status: Ordered levothyroxine 0.088 mg oral tablet 1 tablet = 88 mcg, By Mouth, Daily, # 90 tablet, 1 Refills, Maintenance, 07/13/21 14:09:00 EST, Tablet, [facility], Partial fill upon patient request if the prescription is fora schedule II opioid drug., 153, cm, 06/27/21 7:47:... Start Date: 07/13/21 Status: Ordered lisinopril 5 mg oral tablet 5 mg, 1, tablet, By Mouth, Daily, # 90 tablet, Refills 3, Tot. Refills 3, Maintenance, 01/11/22 13:42:00 EDT, Route to Pharmacy Electronically, [facility], Partial fill upon patient request if the prescription is for a schedule... Start Date: 01/11/22 Status: Ordered Power Virginia Lift with [place] split-leg sling Power [place] Lift with [place] split-leg sling, See Instructions, # 1 each, [...] 1 Refills, Maintenance, 12/09/21 1:28:00 EDT, Tablet, [facility]/pharmacy #[id number], [...] tablet, 0 Refills, Maintenance, 01/16/22 13:27:00EDT, Tablet, [facility], Partial fill upon patient request [...]
--- OUTSIDE RECORDS SUMMARY | 2024-03-17 13:32 | XMS_ITS | Continuity of Care Document ---
Author Organization [facility] Address [address] [place] [address]- Care Team Providers Care Clinic Clerk Name Role Phone Juan Manuel LIM, Kristen Acosta Primary Care Physic juan alberto [facility]): 09[facility] - 10/04/22 [facility] [address] [place] [address]- Allergies, Adverse Reactions, Alerts Substance Reaction Severity Status morphine hives, SOB Active Wellbutrin rash Active Reglan Active contrast media (iodine-based) itching throughout body Active penicillins hive Active cannabis (Schedule I substance) itching/vomiting Active Other Environmental Allergy mercury-fillings Active Immunizations Given and Recorded Vaccine Date Status Refusal Reason pneumococcal 20-valent conjugate vaccine 05/30/22 Recorded [id number] 12y+ bivalent booster vax 05/12/22 Recorded influenza [...] vaccine, inactivated 04/26/09 Arnoldo rded SARS-CoV-2 mRNA ([id number]-lylk-vavjw) vax 03/10/22 Recorded SARS-CoV-2 mRNA (whgnnxb-kkpe-xunqn) vax 10/04/21 Recorded SARS-CoV-2 (COVID-19) mRNA BNT-162b2 [...] tablet, 0 Refills, Maintenance, 09/13/22 9:11:00EST, Tablet, [facility]/pharmacy #[id number], Partial fill upon patient request if the prescription is for a schedule II opioid drug., 155, cm, 07/12/22 14:10:00 ES... Start Date: 09/13/22 Status: Ordered baclofen 20 mg oral tablet 20 mg, 1, tablet, By Mouth, 3 times a day, # 270 tablet, Refills 2, Tot. Refills 2, Maintenance, 12/09/22 12:44:00 EDT, Route to Pharmacy Electronically, [facility], Partial fill upon patient request if the prescription is for a... Start Date: 12/09/22 Stop Date: 09/05/23 Status: Ordered baclofen 20 mg oral tablet 20 mg, 1, tablet, By Mouth, 3 times a day, for 90 days, # 270 tablet, Refills 2, Tot. Refills 2, Hard Stop 12/09/22 12:44:00 EDT, 03/14/22 12:44:00 EDT, [id number] Partial fill upon patient request if the pre... Start Date: 03/14/22 Stop Date: 12/09/22 Status: Ordered bifidobacterium-lactobacillus oral tablet 2 tablet, By Mouth, 2 times a day, [facility] Brand please (Senior Wellness), # 360 tablet, 3 Refills, Maintenance, 08/11/21 17:02:00 EST, Tablet, [facility]/pharmacy #[id number], Partial fill upon patient request if the prescription is for a schedule II opioid drug., 2... Start Date: 08/11/21 Stop Date: 08/06/22 Status: Ordered calcium carbonate 600 mg oral tablet 1 tablet = 600 mg, By Mouth, 2 times a day, # 180 tablet, 2 Refills, Maintenance, 01/06/23 14:02:00EDT, Tablet, [facility]/pharmacy #[id number], Partial fill upon patient request if [...] 14:02:00 EDT, 01/11/22 14:02:00 EDT, Tablet, [facility], Partial fill upon patient request if the prescription is for a schedul... Start Date: 01/11/22 Stop Date: 01/06/23 Status: Ordered Centrum Silver Ultra Women's oral tablet 1 tablet, By Mouth, Daily, 0 Refills, Maintenance, 07/09/18 8:43:55 EST Start Date: 07/09/18 Status: Ordered [facility] SENIOR PROBIOTIC CAPSULE TAKE 2 CAPSULES BY MOUTH TWICE A DAY Start Date: 11/01/21 Status: Ordered [facility] Senior Probiotic Capsule [facility] Senior Probiotic Capsule, See Instructions, # 180 [...] 450 mL, 5 Refills, 03/02/22 8:08:00 EDT, [facility]/pharmacy #[id number], 155, cm, 02/23/22 8:04:00 EDT, Height, [...] Refills, Soft Stop, 05/26/22 8:59:00 EDT, Tablet, [facility]/pharmacy #[id number], Partial fill upon patient request if [...] 9:03:00 EDT, Route to Pharmacy Electronically, [facility], Partial fill upon patient request [...] 7:44:00 EDT, Route to Pharmacy Electronically, [facility], Partial fill upon patient re... Start Date: 05/21/22 Stop Date: 02/15/23 Status: Ordered gabapentin 300 mg oral capsule 300 mg, 1, capsule, By Mouth, 3 times a day, # 270 capsule, Refills 2, Tot. Refills 2, Maintenance,02/15/23 7:44:00 EDT, Route to Pharmacy Electronically, [facility], Partial fill upon patient request if the prescription is for... Start Date: 02/15/23 Stop Date: 11/12/23 Status: Ordered Juzo Compression Hose Juzo Compression Hose, See Instructions, # 2 each, Refills 2, Tot. Refills 2, Maintenance, 20-30mmghg FF Petite (short),Wvwhu-owx-sboc, soft knee, black silicone Stock code [id number] Part #[id number], Size III. [facility] [id number], 12/07/21 11:32:00 EDT,... Start Date: 12/07/21 Status: Ordered levothyroxine 0.088 mg oral tablet 1 tablet = 88 mcg, By Mouth, Daily, # 90 tablet, 1 Refills, Maintenance, 09/08/22 14:26:00 EST, Tablet, [facility], Partial fill upon patient request if the prescription is fora schedule II opioid drug., 155, cm, 07/12/22 14:10... Start Date: 09/08/22 Status: Ordered lisinopril 5 mg oral tablet 5 mg, 1, tablet, By Mouth, Daily, # 90 tablet, Refills 3, Tot. Refills 3, Maintenance, 02/24/22 15:53:00 EDT, Route to Pharmacy Electronically, [facility]/pharmacy #[id number], Partial fill upon patient request if the prescription is for a schedule II opioid drug.... Start Date: 02/24/22 Status: Ordered lisinopril 5 mg oral tablet See Instructions, TAKE 1 TABLET DAILY, # 90 tablet, Refills 1, Maintenance, 09/24/22 19:24:00 EST, Instructions Replace Required Details, Route to Pharmacy Electronically, [facility], 155, cm, 07/12/22 14:10:00 EST, Height, 93.4, k... Start Date: 09/24/22 Status: Ordered Mapap 500 mg oral capsule See Instructions, TAKE 2 CAPSULES BY MOUTH 4 TIMES A DAY NEEDED FOR PAIN, # 480 capsule, 3 Refills, Maintenance, 06/04/22 16:03:00 EDT, [id number], 155, cm, 05/25/22 13:44:00 EDT, Height, 93.4, kg, 11/01/21 16:52:00 EDT, Dry Weight Start Date: 06/04/22 Status: Ordered Power [place] Lift with [place] split-leg sling Power [place] Lift with [place] split-leg sling, See Instructions, # 1 each, [...] 11/01/22 17:46:00 EDT, 07/12/22 17:46:00 EST, Tablet, [facility]/pharmacy #[id number], Partial fill upon pa... Start Date: 07/12/22 Stop Date: 11/01/22 Status: Ordered Provigil 200 mg oral tablet 1 tablet = 200 mg, By Mouth, 2 times a day, takes in am and lunchtime brand name only - dispense aswritten, # 56 tablet, 0 Refills, Maintenance, 09/07/22 14:36:00 EST, Tablet, [facility]/pharmacy #[id number], Partial fill upon patient request if the prescription... Start Date: 09/07/22 Stop Date: 10/05/22 Status: Ordered Provigil 200 mg oral tablet 1 tablet = 200 mg, By Mouth, 2 times a day, for 28 days, takes in am and lunchtime brand name only - dispense as written, # 56 tablet, 3 Refills, Hard Stop 10/25/22 18:25:00 EDT, 07/05/22 18:25:00 EST, Tablet, [facility], Parti... Start Date: 07/05/22 Stop Date: [...] 90 capsule, 2 Refills, 02/28/22 8:13:00 EDT, [facility]/pharmacy #[id number], 155,cm, 02/23/22 8:04:00 EDT, Height, 93.4, kg, 11/01/21 16:52:00 EDT, Dry Weight Start Date: 02/28/22 Status: Ordered Xarelto 20 mg oral tablet 1 tablet = 20 mg, By Mouth, Daily at supper, # 90 tablet, 3 Refills, Maintenance, 02/01/22 12:42:00EDT, Tablet, [facility], Partial fill upon patient request [...] Role: Primary Care Nurse Address: Address: [address] [place] [address] [address] [facility] [place] [address]- [place] Name: Emma Mendoza RN Position: [facility] RN Member Role: Primary Care Nurse Name: Juan Manuel LIM, Kristen Acosta Position: [facility] Primary Care Physician Member Role: PCP Address: Address: [address] [place] [id number]- Name: Jade Medina Position: [facility] RN Member Role: Primary Care Nurse Name: Komal Goodrich Position: [facility] Outreach Member Role: Lifetime Consulting Physician Name: Godfrey Cano Position: [facility] RN Member Role: Primary Care Nurse Name: Anette Miranda RN Position: [facility] Onco RN Member Role: Primary Care Nurse Care Team Related Persons Name: DIOMEDES WARNER Address: home [address] [place] [address] Name: MOO HOWELL Address: home [address] [place] [address] Name: MARLON GENTILE
--- OUTSIDE RECORDS SUMMARY | 2024-03-17 13:32 | XMS_ITS | Continuity of Care Document ---
Author Organization [facility] Address [address] [place] [address]- Care Team Providers Care Cloud Consultant Name Role Phone Juan Manuel LIM, Kristen Acosta Primary Care Physic juan alberto [facility] Date[facility]): 03[facility] - 04/19/22 [facility] [address] [place], [place] [address] Allergies, Adverse Reactions, Alerts Substance [...] vaccine, inactivated 04/26/09 Arnoldo rded SARS-CoV-2 mRNA (yqnqnfi-mxxq-udzgd) vax 03/10/22 Recorded SARS-CoV-2 mRNA (bxnzwwj-lfxx-clkij) vax 10/04/21 Recorded SARS-CoV-2 (COVID-19) mRNA BNT-162b2 [...] Refills, Maintenance, 02/28/22 8:12:00EDT, Tablet, [facility]/pharmacy #[id number], Partial fill upon patient request if the prescription is for a schedule II opioid drug., 155, cm, 02/23/22 8:04:00 EDT... Start Date: 02/28/22 Status: Ordered baclofen 20 mg oral tablet 20 mg, 1, tablet, By Mouth, 3 times a day, # 270 tablet, Refills 2, Tot. Refills 2, Maintenance, 12/09/22 12:44:00 EDT, Route to Pharmacy Electronically, [facility], Partial fill upon patient request if the prescription is for a... Start Date: 12/09/22 Stop Date: 09/05/23 Status: Ordered baclofen 20 mg oral tablet 20 mg, 1, tablet, By Mouth, 3 times a day, for 90 days, # 270 tablet, Refills 2, Tot. Refills 2, Hard Stop 12/09/22 12:44:00 EDT, 03/14/22 12:44:00 EDT, Route to Pharmacy Electronically, [facility]/pharmacy#[id number], Partial fill upon patient request if the pre... Start Date: 03/14/22 Stop Date: 12/09/22 Status: Ordered bifidobacterium-lactobacillus oral tablet 2 tablet, By Mouth, 2 times a day, [facility] Brand please (Senior Wellness), # 360 tablet, 3 Refills, Maintenance, 08/11/21 17:02:00 EST, Tablet, [facility]/pharmacy #[id number], Partial fill upon patient request if the prescription is for a schedule II opioid drug., 2... Start Date: 08/11/21 Stop Date: 08/06/22 Status: Ordered calcium carbonate 600 mg oral tablet 1 tablet = 600 mg, By Mouth, 2 times a day, # 180 tablet, 2 Refills, Maintenance, 01/06/23 14:02:00EDT, Tablet, [facility]/pharmacy #[id number], Partial fill upon patient [...] 01/06/23 14:02:00 EDT, 01/11/22 14:02:00 EDT, Tablet, [facility], Partial fill upon patient request if the prescription is for a schedul... Start Date: 01/11/22 Stop Date: 01/06/23 Status: Ordered Centrum Silver Ultra Women's oral tablet 1 tablet, By Mouth, Daily, 0 Refills, Maintenance, 07/09/18 8:43:55 EST Start Date: 07/09/18 Status: Ordered [facility] SENIOR PROBIOTIC CAPSULE TAKE 2 CAPSULES BY MOUTH TWICE A DAY Start Date: 11/01/21 Status: Ordered diclofenac 1% topical gel 1 application, Topically, 4 times a day, Apply 4 gram QID prn to affected pain to dropped foot - not to exceed 16 grams/day/single joint of lower extremities, # 100 Gm, 3 Refills, Maintenance, 04/02/22 21:13:00 EDT, Gel, [facility] [place] [facility] Start Date: 04/02/22 Status: Ordered electric [...] Refills, 03/02/22 8:08:00 EDT, [facility]/pharmacy #[id number], 155, cm, 02/23/22 8:04:00 [...] 01/02/22 9:03:00 EDT, Route to Pharmacy Electronically, [facility], Partial fill upon patient [...] Maintenance,05/21/22 7:44:00 EDT, Route to Pharmacy Electronically, [facility], Partial fill upon patient request if the prescription is for... Start Date: 05/21/22 Stop Date: 02/15/23 Status: Ordered gabapentin 300 mg oral capsule 300 mg, 1, capsule, By Mouth, 3 times a day, for 30 days, # 90 capsule, Refills 2, Tot. Refills 2, Hard Stop 05/21/22 7:44:00 EDT, 02/20/22 7:44:00 EDT, [id number] Partial fill upon patient request if the pre... Start Date: 02/20/22 Stop Date: 05/21/22 Status: Ordered Juzo Compression Hose Juzo Compression Hose, See Instructions, # 2 each, Refills 2, Tot. Refills 2, Maintenance, 20-30mmghg FF Petite (short),Ebjov-mbh-remm, soft knee, black silicone Stock code [id number] Part #[id number], Size III. [facility] [id number], 12/07/21 11:32:00 EDT,... Start Date: 12/07/21 Status: Ordered levothyroxine 0.088 mg oral tablet 1 tablet = 88 mcg, By Mouth, Daily, # 90 tablet, 3 Refills, Maintenance, 03/31/22 13:45:00 EDT, Tablet, [facility], Partial fill upon patient request if the prescription is fora schedule II opioid drug., 155, cm, 03/14/22 11:11... Start Date: 03/31/22 Status: Ordered lisinopril 5 mg oral tablet 5 mg, 1, tablet, By Mouth, Daily, # 90 tablet, Refills 3, Tot. Refills 3, Maintenance, 02/24/22 15:53:00 EDT, [id number] Partial fill upon patient request [...] 03/12/22 Status: Ordered Power [place] Lift with [place] split-leg sling Power [place] Lift with [place] split-leg sling, See Instructions, # 1 each, [...] tablet, 3 Refills, Maintenance, 02/01/22 12:42:00EDT, Tablet, [facility], Partial fill upon patient [...] Name: Juan Manuel LIM, Kristen Acosta [facility] [address]
--- OUTSIDE RECORDS SUMMARY | 2024-03-17 13:32 | XMS_ITS | Continuity of Care Document ---
Author Organization [facility] Address [address] [place] [address]- Care Team Providers Care Hearing Impaired Itinerant Teacher Name Role Phone Juan Manuel LIM, Kristen Acosta Primary Care Physic juan alberto [facility]): 08/03[facility]21 - 09/02/21 [facility] [address] [place] [address]- Allergies, Adverse Reactions, Alerts Substance Reaction Severity [...] 08/02/21 14:09:00 EST, Route to Pharmacy Electronically, [facility], Partial fill upon patient request if the prescription is for a... Start Date: 08/02/21 Status: Ordered bifidobacterium-lactobacillus oral tablet 2 tablet, By Mouth, 2 times a day, [facility] Brand please ([facility] Wellness), [...] 14:17:00 EST, Tablet, [facility], Partial fill upon patient request [...] 13:39:00 EDT, Route to Pharmacy Electronically, [facility], Partial fill upon patient request if the prescription is for a schedule... Start Date: 04/05/21 Stop Date: 05/05/21 Status: Ordered gabapentin 300 mg oral capsule 300 mg, 1, capsule, By Mouth, Daily at bedtime, # 90 capsule, Refills 2, Tot. Refills 2, Maintenance, 08/02/21 14:08:00 EST, Route to Pharmacy Electronically, [facility], Partial fill upon patient request if the prescription is... Start Date: 08/02/21 Status: Ordered levothyroxine 0.088 mg oral tablet 1 tablet = 88 mcg, By Mouth, Daily, # 90 tablet, 1 Refills, Maintenance, 07/13/21 14:09:00 EST, Tablet, [facility], Partial fill upon patient request if the prescription is fora schedule II opioid drug., 153, cm, 06/27/21 7:47:... Start Date: 07/13/21 Status: Ordered lisinopril 5 mg oral tablet 5 mg, 1, tablet, By Mouth, Daily, # 90 tablet, Refills 1, Tot. Refills 1, Maintenance, 07/13/21 14:08:00 EST, Route to Pharmacy Electronically, [facility], Partial fill upon patient request if the prescription is for a schedule... Start Date: 07/13/21 Status: Ordered Power [place] Lift with [place] split-leg sling Power [place] Lift with [place] split-leg sling, See Instructions, # 1 each, [...] 1 Refills, Maintenance, 07/14/21 17:19:00 EST, Tablet, [facility] [...]
--- OUTSIDE RECORDS SUMMARY | 2024-03-17 13:32 | XMS_ITS | Continuity of Care Document ---
Author Organization [facility] Address [address] [place] [address]- Care Team Providers Care Physician Coding Specialist Name Role Phone Juan Manuel LIM, Kristen Acosta Primary Care Physic juan alberto [place] [facility] [place]/22 [facility] [address] [place] [address]- Allergies, Adverse Reactions, Alerts Substance Reaction Severity Status morphine hives, SOB Active penicillins hive Active Wellbutrin rash Active Reglan Active cannabis (Schedule I substance) itching/vomiting Active Other Environmental Allergy mercury-fillings Active contrast media (iodine-based) itching throughout body Active Immunizations Given and Recorded Vaccine Date Status Refusal Reason SARS-CoV-2 mRNA (lbazxfc-fzau-uajku) vax 10/04/21 Recorded influenza virus vaccine, inactivated [...] 04/19/22 17:46:00 EDT, 08/22/21 17:46:00 EST, Capsule, [facility]/pharmacy #[id number], Partial fill upon patient request if the prescription is for a schedul... Start Date: 08/22/21 Stop Date: 04/19/22 Status: Ordered ascorbic acid 1000 mg oral tablet 1 tablet = 1,000 mg, By Mouth, 2 times a day, # 90 tablet, 2 Refills, Maintenance, 02/28/22 8:12:00EDT, Tablet, [facility]/pharmacy #[id number], Partial [...] Route to Pharmacy Electronically, [facility]/pharmacy #[id number], Partial fill upon patientrequest if the prescription is for a schedule II op... Start Date: 03/14/22 Stop Date: 12/09/22 Status: Ordered bifidobacterium-lactobacillus oral tablet 2 tablet, By Mouth, 2 times a day, [facility] Brand please (Senior Wellness), # 360 tablet, 3 Refills, Maintenance, 08/11/21 17:02:00 EST, Tablet[id number] fill upon patient request if the prescription is for a schedule II opioid drug., 2... Start Date: 08/11/21 Stop Date: 08/06/22 Status: Ordered calcium carbonate 600 mg oral tablet 1 tablet = 600 mg, By Mouth, 2 times a day, # 180 tablet, 2 Refills, Maintenance, 01/06/23 14:02:00EDT, Tablet, [facility]/pharmacy #[id number], Partial [...] 14:02:00 EDT, Tablet, [facility], Partial fill upon patient request if the prescription is for a schedul... Start Date: 01/11/22 Stop Date: 01/06/23 Status: Ordered Centrum Silver Ultra Women's oral tablet 1 tablet, By Mouth, Daily, 0 Refills, Maintenance, 07/09/18 8:43:55 EST Start Date: 07/09/18 Status: Ordered [facility] SENIOR PROBIOTIC CAPSULE TAKE 2 CAPSULES BY MOUTH TWICE A DAY Start Date: 11/01/21 Status: Ordered diclofenac 1% topical gel 1 application, Topically, 4 times a day, # 100 Gm, 3 Refills, Maintenance, 01/11/22 14:07:00 EDT, Gel, [facility], Partial fill upon patient request if [...] 450 mL, 5 Refills, 03/02/22 8:08:00 EDT, [facility]/pharmacy #[id number], 155, cm, 02/23/22 [...] to Pharmacy Electronically, [facility], Partial fill upon patient request if [...] 01/11/22 13:45:00 EDT, Route to Pharmacy Electronically, [facility]... Start Date: 01/11/22 Status: Ordered gabapentin 300 mg oral capsule 300 mg, 1, capsule, By Mouth, 3 times a day, # 90 capsule, Refills 2, Tot. Refills 2, Maintenance, 02/20/22 7:44:00 EDT, Route to Pharmacy Electronically, [facility]acy #[id number], Partial fill upon patient request if the prescription is for a schedule II o... Start Date: 02/20/22 Stop Date: 05/21/22 Status: Ordered Juzo Compression Hose Juzo Compression Hose, See Instructions, # 2 each, Refills 2, Tot. Refills 2, Maintenance, 20-30mmghg FF Petite (short),Rrmxe-bwe-bano, soft knee, black silicone Stock code [id number] Part #[id number], Size III. [facility] [id number], 12/07/21 11:32:00 EDT,... Start Date: 12/07/21 Status: Ordered levothyroxine 0.088 mg oral tablet 1 tablet = 88 mcg, By Mouth, Daily, # 90 tablet, 1 Refills, Maintenance, 03/25/22 11:42:00 EDT, Tablet, [facility]/pharmacy #[id number], Partial fill upon patient request if the prescription is for a schedule II opioid drug., 155, cm, 03/14/22 11:11:00 EDT, Height... Start Date: 03/25/22 Status: Ordered lisinopril 5 mg oral tablet 5 mg, 1, tablet, By Mouth, Daily, # 90 tablet, Refills 3, Tot. Refills 3, Maintenance, 02/24/22 15:53:00 EDT, Route to Pharmacy Electronically, [facility]/pharmacy #[id number], Partial fill [...] 03/12/22 Status: Ordered Power [place] Lift with [place] split-leg sling Power [place] Lift with [place] split-leg sling, See Instructions, # 1 each, [...] 3 Refills, Maintenance, 02/28/22 8:12:00 EDT, Tablet, [facility]/pharmacy #[id number], [...] 90 capsule, 2 Refills, 02/28/22 8:13:00 EDT, [facility]/pharmacy #[id number], 155,cm, 02/23/22 8:04:00 EDT, Height, 93.4, kg, 11/01/21 16:52:00 EDT, Dry Weight Start Date: 02/28/22 Status: Ordered Xarelto 20 mg oral tablet 1 tablet = 20 mg, By Mouth, Daily at supper, # 90 tablet, 3 Refills, Maintenance, 02/01/22 12:42:00EDT, Tablet, [facility], Partial fill upon [...]
--- OUTSIDE RECORDS SUMMARY | 2024-03-17 13:32 | XMS_ITS | Continuity of Care Document ---
Author Organization [facility] Address [address] [place] [address]- Care Team Providers Care Interchange Agent Name Role Phone Rey CENTENO, Javy Lerma Primary Care Physician [phone] Encounter 05/11/21 - 05/18/[address] [facility] [address], [address] [place] [address]- Attending Physician: Rey CENTENO, Javy Lerma Admitting Physician: Rey CENTENO, Javy Lerma Referring Physician: Rey CENTEON, Javy Lerma Allergies, Adverse Reactions, Alerts Substance [...] Date: 04/05/21 Stop Date: 06/04/21 Status: Ordered acetaminophen 500 mg oral capsule [...] Date: 02/18/21 Status: Ordered bifidobacterium-lactobacillus oral tablet 1 tablet, By Mouth, Daily, [facility], # 30 tablet, 0 Refills, Maintenance, 05/18/21 7:27:00 EDT, Tablet, [id number], Partial fill upon patient request if the prescription is for a schedule II opioid drug., 1 tablet By Mouth Daily,Instr:... Start Date: 05/18/21 Status: Ordered Botox 200 units injection See Instructions, 200 units for injection into left gastrocs Dx: Plantarflexion contracture, # 1 each, 0 Refills, Maintenance, 04/18/20 12:31:00 EDT Start Date: 04/18/20 Status: Ordered calcium carbonate 600 mg oral tablet 1 tablet = 600 mg, By Mouth, 2 times a day, # 60 tablet, 0 Refills, Maintenance, 04/25/21 14:08:00 EDT, Tablet, [facility]/pharmacy #[id number], Partial fill upon patient request if [...] 10:23:00 EDT, Route to Pharmacy Electronically, [facility]/pharmacy #[id number], Partial fill upon patient request if [...] constipation, # 90 each, 0 Refills, Maintenance, 05/17/21 14:42:00 EDT, [facility]/pharmacy #[id number], Partial fill upon patient request if the prescription is for a schedule II opioid drug. dx MS and Redundant... Start Date: 05/17/21 Status: Ordered furosemide 40 mg oral tablet 40 mg, 1, tablet, By Mouth, Daily, # 90 tablet, Refills 2, Tot. Refills 2, Maintenance, 04/05/21 13:39:00 EDT, Route to Pharmacy Electronically, [facility], Partial fill upon patient request if the prescription is for a schedule... Start Date: 04/05/21 Stop Date: 05/05/21 Status: Ordered gabapentin 250 mg/5 mL oral solution 12 mL = 600 mg, By Mouth, 4 times a day, # 1,440 mL, 0 Refills, Maintenance, 02/18/21 10:22:00 EDT,Liquid, [facility]/pharmacy #[id number], Partial fill upon patient request if the prescription is for a scheduleII opioid drug. Ok to dispense similar quantity if... Start Date: 02/18/21 Stop Date: 03/20/21 Status: Ordered levothyroxine 0.088 mg oral tablet 1 tablet = 88 mcg, By Mouth, Daily, # 90 tablet, 1 Refills, Maintenance, 04/05/21 13:40:00 EDT, Tablet, [facility], Partial fill upon patient request if the prescription is fora schedule II opioid drug., 153, cm, 04/04/21 9:04:... Start Date: 04/05/21 Status: Ordered lisinopril 5 mg oral tablet 5 mg, 1, tablet, By Mouth, Daily, # 90 tablet, Refills 1, Tot. Refills 1, Maintenance, 04/05/21 13:40:00 EDT, Route to Pharmacy Electronically, [facility], Partial fill upon patient request if the prescription is for a schedule... Start Date: 04/05/21 Status: Ordered Magnesium Citrate By Mouth, 0 Refills, Maintenance, 11/28/18 16:25:54 EDT Start Date: 11/28/18 Status: Ordered methenamine hippurate 1 gm oral tablet 1 tablet = 1 Gm, By Mouth, 2 times a day, # 60 tablet, 1 Refills, Maintenance, 04/05/21 13:35:00 EDT, [facility]/pharmacy #[id number], Partial fill upon patient request if the prescription is for a schedule II opioid drug., 153, cm, 04/04/21 9:04:00 EDT, Height Start Date: 04/05/21 Stop Date: 06/04/21 Status: Ordered probiotic 10billion cfu probiotic 10billion cfu, Refills 0, Maintenance, 10/02/18 13:17:08 EST, Compound Start Date: 10/02/18 Status: Ordered Provigil 200 mg oral tablet 1 tablet = 200 mg, By Mouth, 2 times a day, takes in am and lunchtime brand name only - dispense aswritten, # 180 tablet, 0 Refills, Maintenance, 05/18/21 7:27:00 EDT, Tablet, [facility]/pharmacy #[id number], Partial fill upon patient request if the prescription... Start Date: 05/18/21 Status: Ordered SloFe 50mg SloFe 50mg, Refills [...]
--- OUTSIDE RECORDS SUMMARY | 2024-03-17 13:32 | XMS_ITS | Continuity of Care Document ---
Author Organization [facility] Address [address] [place] [address], [address] [place] [address]- Care Team Providers Care Industrial Technologist Name Role Phone Rey CENTENO, aJvy Lerma Primary Care Physician [phone] Encounter [facility] Date(s): 03/25/21 - 04/24/21 [facility] [address] [place] [address], [address] [place] [address]- Allergies, Adverse Reactions, Alerts Substance Reaction Severity [...] Arnoldo rded influenza virus vaccine, inactivated 04/26/09 Arnlodo rded SARS-CoV-2 (COVID-19) mRNA BNT-162b2 vac 03/31/21 [...] 02/18/21 10:23:00 EDT, Route to Pharmacy Electronically, [facility]acy #[id number], Partial fill upon patient request if [...] each, 0 Refills, Maintenance, 04/05/21 13:29:00 EDT, [facility]/pharmacy #[id number], Partial fill upon patient request if the prescription is for a schedule II opioid drug., 153, cm, 04/04/21... Start Date: 04/05/21 Status: Ordered furosemide 40 mg oral tablet 40 mg, 1, tablet, By Mouth, Daily, # 90 tablet, Refills 2, Tot. Refills 2, Maintenance, 04/05/21 13:39:00 EDT, Route to Pharmacy Electronically, [facility], Partial fill upon patient request if the prescription is for a schedule... Start Date: 04/05/21 Stop Date: 05/05/21 Status: Ordered gabapentin 250 mg/5 mL oral solution 12 mL = 600 mg, By Mouth, 4 times a day, # 1,440 mL, 0 Refills, Maintenance, 02/18/21 10:22:00 EDT,Liquid, [facility]/pharmacy #[id number], Partial fill upon patient request if the prescription is for a scheduleII opioid drug. Ok to dispense similar quantity if... Start Date: 02/18/21 Stop Date: 03/20/21 Status: Ordered levothyroxine 0.088 mg oral tablet 1 tablet = 88 mcg, By Mouth, Daily, # 90 tablet, 1 Refills, Maintenance, 04/05/21 13:40:00 EDT, Tablet, [facility], Partial fill upon patient request if the prescription is fora schedule II opioid drug., 153, cm, 04/04/21 9:04:... Start Date: 04/05/21 Status: Ordered lisinopril 5 mg oral tablet 5 mg, 1, tablet, By Mouth, Daily, # 90 tablet, Refills 1, Tot. Refills 1, Maintenance, 04/05/21 13:40:00 EDT, Route to Pharmacy Electronically, [facility] [...] Maintenance, 04/05/21 13:35:00 EDT, [id number] upon patient [...] 0 Refills, Maintenance, 04/05/21 13:30:00 EDT, Tablet, [id number], Partial fill upon [...]
--- OUTSIDE RECORDS SUMMARY | 2024-03-17 13:32 | XMS_ITS | Continuity of Care Document ---
Author Organization [facility] Address [address] [place] [address]- Care Team Providers Care Ship'S Officer Name Role Phone Juan Manuel LIM, Kristen Acosta Primary Care Physic juan alberto [facility]counter [facility] Date[facility]s): 09/19/22 - 10/19/22 [facility] [address] [place] [address]- Allergies, Adverse Reactions, Alerts Substance Reaction Severity Status morphine hives, SOB Active penicillins hive Active Wellbutrin rash Active Reglan Active cannabis (Schedule I substance) itching/vomiting Active Other Environmental Allergy mercury-fillings Active contrast media (iodine-based) itching throughout body Active Immunizations Given and Recorded Vaccine Date Status Refusal Reason pneumococcal 20-valent conjugate vaccine 05/30/22 Recorded [id number] 12y+ bivalent booster vax 05/12/22 Recorded influenza [...] vaccine, inactivated 04/26/09 Arnoldo rded SARS-CoV-2 mRNA ([id number]) vax 03/10/22 Recorded SARS-CoV-2 mRNA (aqiypdy-affa-ppazs) vax 10/04/21 Recorded SARS-CoV-2 (COVID-19) mRNA BNT-162b2 [...] tablet, 0 Refills, Maintenance, 10/05/22 9:35:00EST, Tablet, [facility]/pharmacy #[id number], Partial fill upon patient request if the prescription is for a schedule II opioid drug., 155, cm, 09/26/22 14:02:00 ES... Start Date: 10/05/22 Status: Ordered baclofen 20 mg oral tablet 20 mg, 1, tablet, By Mouth, 3 times a day, # 270 tablet, Refills 2, Tot. Refills 2, Maintenance, 12/09/22 12:44:00 EDT, Route to Pharmacy Electronically, [facility], Partial fill upon patient request if the prescription is for a... Start Date: 12/09/22 Stop Date: 09/05/23 Status: Ordered baclofen 20 mg oral tablet 20 mg, 1, tablet, By Mouth, 3 times a day, for 90 days, # 270 tablet, Refills 2, Tot. Refills 2, Hard Stop 12/09/22 12:44:00 EDT, 03/14/22 12:44:00 EDT, [id number] Partial fill upon patient request if the pre... Start Date: 03/14/22 Stop Date: 12/09/22 Status: Ordered bifidobacterium-lactobacillus oral tablet 2 tablet, By Mouth, 2 times a day, [facility] Brand please ([facility]), # 360 tablet, 3 Refills, Maintenance, 08/11/21 17:02:00 EST, Tablet, [facility]/pharmacy #[id number], Partial fill upon patient request if the prescription is for a schedule II opioid drug., 2... Start Date: 08/11/21 Stop Date: 08/06/22 Status: Ordered calcium carbonate 600 mg oral tablet 1 tablet = 600 mg, By Mouth, 2 times a day, # 180 tablet, 2 Refills, Maintenance, 01/06/23 14:02:00EDT, Tablet, [facility]/pharmacy #[id number], Partial fill upon patient request if the prescription is for a schedule II opioid drug., 155, cm, 02/23/22 8:04:00 EDT... Start Date: 01/06/23 Stop Date: 10/03/23 Status: Ordered calcium carbonate 600 mg oral tablet 1 tablet = 600 mg, By Mouth, 2 times a day, for 90 days, # 180 tablet, 3 Refills, Hard Stop 01/06/23 14:02:00 EDT, 01/11/22 14:02:00 EDT, Tablet, [facility], Partial fill upon patient request if the prescription is for a schedul... Start Date: 01/11/22 Stop Date: 01/06/23 Status: Ordered Centrum Silver Ultra Women's oral tablet 1 tablet, By Mouth, Daily, 0 Refills, Maintenance, 07/09/18 8:43:55 EST Start Date: 07/09/18 Status: Ordered [facility] SENIOR PROBIOTIC CAPSULE TAKE 2 CAPSULES BY MOUTH TWICE A DAY Start Date: 11/01/21 Status: Ordered [facility] Senior Probiotic Capsule [facility] Senior Probiotic Capsule, See Instructions, # 180 [...] 450 mL, 5 Refills, 03/02/22 8:08:00 EDT, [facility]/pharmacy #[id number], 155, cm, 02/23/22 8:04:00 EDT, Height, [...] Refills, Soft Stop, 05/26/22 8:59:00 EDT, Tablet, [facility]/pharmacy #[id number], Partial fill upon patient request if [...] 01/02/22 9:03:00 EDT, Route to Pharmacy Electronically, [facility], Partial fill upon patient [...] 05/21/22 7:44:00 EDT, Route to Pharmacy Electronically, [facility], Partial fill upon patient re... Start Date: 05/21/22 Stop Date: 02/15/23 Status: Ordered gabapentin 300 mg oral capsule 300 mg, 1, capsule, By Mouth, 3 times a day, # 270 capsule, Refills 2, Tot. Refills 2, Maintenance,02/15/23 7:44:00 EDT, Route to Pharmacy Electronically, [facility], Partial fill upon patient request if the prescription is for... Start Date: 02/15/23 Stop Date: 11/12/23 Status: Ordered Juzo Compression Hose Juzo Compression Hose, See Instructions, # 2 each, Refills 2, Tot. Refills 2, Maintenance, 20-30mmghg FF Petite (short),Gntdf-vrk-ymke, soft knee, black silicone Stock code [id number] Part #[id number], Size III. [facility] [id number], 12/07/21 11:32:00 EDT,... Start Date: 12/07/21 Status: Ordered levothyroxine 0.088 mg oral tablet 1 tablet = 88 mcg, By Mouth, Daily, # 90 tablet, 1 Refills, Maintenance, 09/08/22 14:26:00 EST, Tablet, [facility], Partial fill upon patient request if the prescription is fora schedule II opioid drug., 155, cm, 07/12/22 14:10... Start Date: 09/08/22 Status: Ordered lisinopril 5 mg oral tablet 5 mg, 1, tablet, By Mouth, Daily, # 90 tablet, Refills 3, Tot. Refills 3, Maintenance, 02/24/22 15:53:00 EDT, Route to Pharmacy Electronically, [facility]/pharmacy #[id number], Partial fill upon patient request if the prescription is for a schedule II opioid drug.... Start Date: 02/24/22 Status: Ordered lisinopril 5 mg oral tablet See Instructions, TAKE 1 TABLET DAILY, # 90 tablet, Refills 1, Maintenance, 09/24/22 19:24:00 EST, Instructions Replace Required Details, Route to Pharmacy Electronically, [facility], 155, cm, 07/12/22 14:10:00 EST, Height, 93.4, k... Start Date: 09/24/22 Status: Ordered Mapap 500 mg oral capsule See Instructions, TAKE 2 CAPSULES BY MOUTH 4 TIMES A DAY NEEDED FOR PAIN, # 480 capsule, 3 Refills, Maintenance, 06/04/22 16:03:00 EDT, [id number], 155, cm, 05/25/22 13:44:00 EDT, Height, 93.4, kg, 11/01/21 16:52:00 EDT, Dry Weight Start Date: 06/04/22 Status: Ordered Power [place] Lift with [place] split-leg sling Power [place] Lift with [place] split-leg sling, See Instructions, # 1 each, [...] 11/01/22 17:46:00 EDT, 07/12/22 17:46:00 EST, Tablet, [facility]/pharmacy #[id number], Partial fill upon pa... Start Date: 07/12/22 Stop Date: 11/01/22 Status: Ordered Provigil 200 mg oral tablet 1 tablet = 200 mg, By Mouth, 2 times a day, takes in am and lunchtime brand name only - dispense aswritten, # 56 tablet, 5 Refills, Maintenance, 10/05/22 17:39:00 EST, Tablet, [facility]/pharmacy #[id number], Partial fill upon patient request if the prescription... Start Date: 10/05/22 Stop Date: 03/22/23 Status: Ordered Provigil 200 mg oral tablet 1 tablet = 200 mg, By Mouth, 2 times a day, for 28 days, takes in am and lunchtime brand name only - dispense as written, # 56 tablet, 3 Refills, Hard Stop 10/25/22 18:25:00 EDT, 07/05/22 18:25:00 EST, Tablet, [facility], Parti... Start Date: 07/05/22 Stop [...] 90 capsule, 2 Refills, 02/28/22 8:13:00 EDT, [facility]/pharmacy #[id number], 155,cm, 02/23/22 8:04:00 EDT, Height, 93.4, kg, 11/01/21 16:52:00 EDT, Dry Weight Start Date: 02/28/22 Status: Ordered Xarelto 20 mg oral tablet 1 tablet = 20 mg, By Mouth, Daily at supper, # 90 tablet, 3 Refills, Maintenance, 02/01/22 12:42:00EDT, Tablet, [facility], Partial fill upon patient request [...] Member Role: Primary Care Nurse Address: Address: [address] [place] [address] [address] [facility] [place] [address]- [place] Name: Emma Mendoza RN Position: [facility] RN Member Role: Primary Care Nurse Name: Juan Manuel LIM, Kristen Acosta Position: [facility] Primary Care Physician Member Role: PCP Address: Address: [address] [place] [address]- Name: Jade Medina Position: [facility] RN Member Role: Primary Care Nurse Name: Komal Goodrich Position: [facility] Outreach Member Role: Lifetime Consulting Physician Name: Godfrey Cano Position: [facility] RN Member Role: Primary Care Nurse Name: Anette Miranda RN Position: [facility] Onco RN Member Role: Primary Care Nurse Care Team Related Persons Name: DIOMEDES WARNER Address: home [address] [place] [address] Name: MOO HOWELL Address: home [address] [place] [address] Name: MARLON GENTILE
--- OUTSIDE RECORDS SUMMARY | 2024-03-17 13:32 | XMS_ITS | Continuity of Care Document ---
Author Organization [facility] Address [address] [place] [address]- Care Team Providers Care Patient Resource Coordinator Name Role Phone Juan Manuel LIM, Kristen Acosta Primary Care Physic juan alberto [facility]counter [facility] Date(s): 06/17/21 - 07/17/21 [facility] [address] [place] [address]- Allergies, Adverse Reactions, Alerts Substance Reaction Severity [...] tablet, By Mouth, Daily, [facility] please ([facility]), # 180 tablet, 3 Refills, Maintenance, [...] tablet, 1 Refills, Maintenance, 07/13/21 14:17:00EST, Tablet, [facility], Partial fill [...] 13:39:00 EDT, [facility] to Pharm[facility] Electronically, [facility] 14:08:00 EST, Route to Pharmacy Electronically, [facility], Partial fill upon patient request if the prescription is for a schedule... Start Date: 07/13/21 Status: Ordered Provigil 200 mg oral tablet 1 tablet = 200 mg, By Mouth, 2 times a day, takes in am and lunchtime brand name only - dispense aswritten, # 56 tablet, 1 Refills, Maintenance, 07/14/21 17:19:00 EST, Tablet, [facility], Partial fill upon patient request if t... Start Date: 07/14/21 Stop Date: 09/08/21 Status: Ordered Turmeric = 750 mg, By Mouth, 2 times a day, 0 Refills, Maintenance, 07/09/18 8:47:35 EST Start Date: 07/09/18 Status: Ordered Vitamin D3 2000 intl units oral capsule 1 capsule, By Mouth, Daily, # 90 capsule, 1 Refills, [id number], 153, cm, 04/25/21 13:34:00 EDT, Height Start [...]
--- OUTSIDE RECORDS SUMMARY | 2024-03-17 13:32 | XMS_ITS | Continuity of Care Document ---
Author Organization [facility] Address [address] [place] [address]- Care Team Providers Care Forklift Picker Name Role Phone Juan Manuel LIM, Kristen Acosta Primary Care Physic juan alberto [facility]counter [facility] Date(s): 10/12/23 - 11/11/23 [facility] [address] [place], [place] [address] Allergies, Adverse Reactions, Alerts Substance Reaction Severity Status morphine hives, SOB Active Wellbutrin rash Active Reglan Active contrast media (iodine-based) itching throughout body Active penicillins hive Active cannabis (Schedule I substance) itching/vomiting Active Other Environmental Allergy mercury-fillings Active Immunizations Given and Recorded Vaccine Date Status Refusal Reason SARS-CoV-2(COVID-19)mRNA-LNP vac([id number]) 10/19/23 Recorded SARS-CoV-2(COVID-19)mRNA-LNP vac([id number]) 07/03/23 Recorded RSV vaccine preF3, recombinant 05/19/23 [...] influenza virus vaccine, inactivated 04/26/09 Arnoldo rded [id number] 12y+ bivalent booster vax 01/23/23 Recorded [id number] 12y+ bivalent booster vax 05/12/22 Recorded pneumococcal 20-valent conjugate vaccine 05/30/22 Recorded SARS-CoV-2 mRNA (jjtnyqb-hwej-ecaqg) vax 03/10/22 Recorded SARS-CoV-2 mRNA (glmfpde-ulto-neeim) vax 10/04/21 Recorded SARS-CoV-2 (COVID-19) mRNA BNT-162b2 [...] 08/01/23 13:53:00 EST, Tablet, [facility]/pharmacy #[id number], Partial [...] 09/05/23 12:44:00 EST, Route to Pharmacy Electronically, [facility], Partial fill upon patient req... Start Date: 09/05/23 Stop Date: 06/01/24 Status: Ordered baclofen 20 mg oral tablet 20 mg, 1, tablet, By Mouth, 3 times a day, # 270 tablet, Refills 2, Tot. Refills 2, Maintenance, 06/01/24 12:44:00 EDT, Route to Pharmacy Electronically, [facility]/pharmacy #[id number], Partial fill upon patientrequest if the prescription is for a schedule II op... Start Date: 06/01/24 Stop Date: 02/26/25 Status: Ordered baclofen 20 mg oral tablet 20 mg, 1, tablet, By Mouth, 3 times a day, for 90 days, # 270 tablet, Refills 2, Tot. Refills 2, Hard Stop 06/01/24 12:44:00 EDT, 09/05/23 12:44:00 EST, Route to Pharmacy Electronically, [facility]/pharmacy#[id number], Partial fill upon patient request if the pre... Start Date: 09/05/23 Stop Date: 06/01/24 Status: Ordered bifidobacterium-lactobacillus oral tablet 2 tablet, By Mouth, 2 times a day, [facility] Brand please ([facility] Well[facility]), # 360 tablet, 3 [...] A DAY Start Date: 11/01/21 Status: Ordered [facility] Senior Probiotic Capsule [facility] Senior Probiotic Capsule, See Instructions, [...] 07/03/23 1:01:00 EST, Route to Pharmacy Electronically, [facility], 155, cm, 05/28/23 [...] Maintenance,02/15/23 7:44:00 EDT, Route to Pharmacy Electronically, [facility], Partial fill upon patient request if the prescription is for... Start Date: 02/15/23 Stop Date: 11/12/23 Status: Ordered Juzo Compression Hose Juzo Compression Hose, See Instructions, # 2 each, Refills 2, Tot. Refills 2, Maintenance, Juzo Compression Hose 2 pairs [id number] Soft Knee FF Petite 20-30 mmHg Silicone, Black Stock Code [id number] I I I Part #[id number] Size I I I SKU... Start Date: [...] capsule, 0 Refills, Maintenance, 10/01/23 17:46:00 EST, [facility]/pharmacy #[id number], 155, cm, 05/28/23 11:02:00 EDT, Height, 93.4, kg, 11/01/21 16:52:00 EDT, Dry Weight Start Date: 10/01/23 Status: Ordered Power [place] Lift with [place] split-leg sling Power [place] Lift with [place] split-leg sling, See Instructions, # 1 each, [...] 0 Refills, Maintenance, 08/08/23 18:05:00 EST, Tablet, [facility]/pharmacy #[id number], Partial [...] 03/14/24 2:50:00 EDT, 11/23/23 2:50:00 EDT, Tablet, [facility]/pharmacy #[id number], [place]... Start Date: 11/23/23 Stop Date: 03/14/24 Status: Ordered Provigil 200 mg oral tablet 1 tablet = 200 mg, By Mouth, 2 times a day, for 28 days, takes in am and lunchtime brand name only - dispense as written Brand name only, # 56 tablet, 3 Refills, Hard Stop 11/23/23 2:50:00 EDT, 08/03/23 2:50:00 EST, Tablet, [facility]... Start Date: [...] Care Nurse Name: Elsa Allen NP Position: [facility] Outreach Member Role: Primary Care Nurse Address: Address: [address] [facility] [place] [address]- Name: Emma Mendoza RN Position: [facility] Nurse Member Role: Primary Care Nurse Name: Juan Manuel LIM, Kristen Acosta Position: [facility] Physician - Primary Care Member Role: PCP Address: Address: [address] [place] [address] Name: Komal Goodrich Position: [facility] Outreach Member Role: Lifetime Consulting Physician Name: Godfrey Cano Position: [facility] RN Member Role: Primary Care Nurse Name: Anette Miranda RN Position: [facility] Onco RN Member Role: Primary Care Nurse Care Team Related Persons Name: DIOMEDES WARNER Address: [address] [place] [address] Name: MOO HOWELL Address: [address] [place] [address] Name: MARLON GENTILE
--- OUTSIDE RECORDS SUMMARY | 2024-03-17 13:32 | XMS_ITS | Continuity of Care Document ---
Author Organization [facility] Address [address] [place] [address]- Care Team Providers Care Operator Engineer Name Role Phone Rey CENTENO, Javy Lerma Primary Care Physician Encounter [facility] Date(s): 03/28/21 - 04/27/21 [facility] [address] [place] [id number] Attending Physician: AdmAlissa fisher Admitting Physician: AdmtrAlissa Referring Physician: AdmtrAlissa Allergies, Adverse Reactions, Alerts Substance Reaction Severity [...] 04/25/21 14:08:00 EDT, Tablet, [facility]/pharmacy #[id number], [...] Route to Pharmacy Electronically, [facility]/pharmacy #[id number], Partial fill [...] each, 0 Refills, Maintenance, 04/05/21 13:29:00 EDT, [facility]/pharmacy #[id number], Partial fill upon patient request if the prescription is for a schedule II opioid drug., 153, cm, 04/04/21... Start Date: 04/05/21 Status: Ordered furosemide 40 mg oral tablet 40 mg, 1, tablet, By Mouth, Daily, # 90 tablet, Refills 2, Tot. Refills 2, Maintenance, 04/05/21 13:39:00 EDT, Route to Pharmacy Electronically, [facility], Partial fill upon patient request if the prescription is for a schedule... Start Date: 04/05/21 Stop Date: 05/05/21 Status: Ordered gabapentin 250 mg/5 mL oral solution 12 mL = 600 mg, By Mouth, 4 times a day, # 1,440 mL, 0 Refills, Maintenance, 02/18/21 10:22:00 EDT,Liquid, [facility]/pharmacy #[id number], Partial fill upon patient request if the prescription is for a scheduleII opioid drug. Ok to dispense similar quantity if... Start Date: 02/18/21 Stop Date: 03/20/21 Status: Ordered levothyroxine 0.088 mg oral tablet 1 tablet = 88 mcg, By Mouth, Daily, # 90 tablet, 1 Refills, Maintenance, 04/05/21 13:40:00 EDT, Tablet, [facility], Partial fill upon patient request if the prescription is fora schedule II opioid drug., 153, cm, 04/04/21 9:04:... Start Date: 04/05/21 Status: Ordered lisinopril 5 mg oral tablet 5 mg, 1, tablet, By Mouth, Daily, # 90 tablet, Refills 1, Tot. Refills 1, Maintenance, 04/05/21 13:40:00 EDT, [facility], [facility] Maintenance, 04/05/21 13:35:00 EDT, [facility]/pharmacy #[id number], Partial fill [...] 04/05/21 13:30:00 EDT, Tablet, [facility]/pharmacy #[id number], [...] 0 Refills, Maintenance, 04/05/21 13:46:00 EDT, Capsule, [facility]/pharmacy #[id number], Partial fill [...]
--- OUTSIDE RECORDS SUMMARY | 2024-03-17 13:32 | XMS_ITS | Continuity of Care Document ---
Author Organization [facility] Address [address] [place] [address]- Care Team Providers Care Oracle Application Consultant Name Role Phone Juan Manuel LIM, Kristen Acosta Primary Care Physic juan alberto Encounter [facility] Date(s): 01/24/22 - 02/23/22 [facility] [address] [place] [address]- Allergies, Adverse Reactions, Alerts Substance Reaction Severity Status morphine hives, SOB Active penicillins hive Active Wellbutrin rash Active Reglan Active cannabis (Schedule I substance) itching/vomiting Active Other Environmental Allergy mercury-fillings Active contrast media (iodine-based) itching throughout body Active Immunizations Given and Recorded Vaccine Date Status Refusal Reason SARS-CoV-2 mRNA (wghjegv-edno-xgvii) vax 10/04/21 Recorded influenza virus vaccine, inactivated [...] 04/19/22 17:46:00 EDT, 08/22/21 17:46:00 EST, Capsule, [facility]/pharmacy #[id number], Partial fill upon patient request if the prescription is for a schedul... Start Date: 08/22/21 Stop Date: 04/19/22 Status: Ordered ascorbic acid 1000 mg oral tablet 1 tablet = 1,000 mg, By Mouth, 2 times a day, # 90 tablet, 1 Refills, Maintenance, 08/11/21 17:03:00 EST, Tablet, [facility] [...] 08/02/21 14:09:00 EST, Route to Pharmacy Electronically, [facility], Partial fill upon patient request if the prescription is for a... Start Date: 08/02/21 Status: Ordered bifidobacterium-lactobacillus oral tablet 2 tablet, By Mouth, 2 times a day, [facility] Brand please (Senior Wellness), # 360 [...] tablet, 3 Refills, Maintenance, 01/11/22 14:02:00EDT, Tablet, [facility], Partial fill upon patient request if [...] 3 Refills, Maintenance, 01/11/22 14:07:00 EDT, Gel, [facility], Partial fill upon patient request if [...] 450 mL, 0 Refills, 02/08/22 18:16:00 EDT, [facility]/pharmacy #[id number], 155, cm, 01/02/22 8:26:00 EDT, Height, [...] 01/02/22 9:03:00 EDT, Route to Pharmacy Electronically, [facility], Partial fill upon patient request if [...] 01/11/22 13:45:00 EDT, Route to Pharmacy Electronically, [facility] ADIS... Start Date: 01/11/22 Status: Ordered gabapentin 300 mg oral capsule 300 mg, 1, capsule, By Mouth, 3 times a day, # 90 capsule, Refills 2, Tot. Refills 2, Maintenance, 02/20/22 7:44:00 EDT, Route to Pharmacy Electronically, [facility]/pharmacy #[id number], Partial fill upon patient request if the prescription is for a schedule II o... Start Date: 02/20/22 Stop Date: 05/21/22 Status: Ordered Juzo Compression Hose Juzo Compression Hose, See Instructions, # 2 each, Refills 2, Tot. Refills 2, Maintenance, 20-30mmghg FF Petite (short),Cupsv-ruv-ihqv, soft knee, black silicone Stock code [id number] Part #[id number], Size III. [facility] [id number], 12/07/21 11:32:00 EDT,... Start Date: 12/07/21 Status: Ordered levothyroxine 0.088 mg oral tablet 1 tablet = 88 mcg, By Mouth, Daily, # 90 tablet, 1 Refills, Maintenance, 07/13/21 14:09:00 EST, Tablet, [facility], Partial fill upon patient request if the prescription is fora schedule II opioid drug., 153, cm, 06/27/21 7:47:... Start Date: 07/13/21 Status: Ordered lisinopril 5 mg oral tablet 5 mg, 1, tablet, By Mouth, Daily, # 90 tablet, Refills 3, Tot. Refills 3, Maintenance, 01/11/22 13:42:00 EDT, Route to Pharmacy Electronically, [facility], Partial fill upon patient request if the prescription is for a schedule... Start Date: 01/11/22 Status: Ordered Power [place] Lift with [place] split-leg sling Power [place] Lift with [place] split-leg sling, See Instructions, # 1 each, [...] 1 Refills, Maintenance, 12/09/21 1:28:00 EDT, Tablet, [facility] [...] 90 capsule, 1 Refills, 08/11/21 17:04:00 EST, [facility]/pharmacy #[id number], 153, cm, 06/27/21 7:47:00 EST, Height Start Date: 08/11/21 Status: Ordered Xarelto 20 mg oral tablet 1 tablet = 20 mg, By Mouth, Daily at supper, # 90 tablet, 3 Refills, Maintenance, 02/01/22 12:42:00EDT, Tablet, [facility], Partial fill upon patient request [...]
--- OUTSIDE RECORDS SUMMARY | 2024-03-17 13:32 | XMS_ITS | Continuity of Care Document ---
Author Organization [facility] Address [address] [place] [address]- Care Team Providers Care Pointing Machine Operator Name Role Phone Jason CENTENO, Efrem Pickering Primary Care Physician Encounter [facility] Date(s): 01/06/21 - 02/05/21 [facility] [address] [place] [id number] Attending Physician: Alissa Gannon Admitting Physician: AdmAlissa fisher Referring Physician: AdmtrAlissa Allergies, Adverse Reactions, Alerts [...]
--- OUTSIDE RECORDS SUMMARY | 2024-03-17 13:32 | XMS_ITS | Continuity of Care Document ---
Author Organization [facility] Address [address] [place] [address]- Care Team Providers Care Bandoleer Packer Name Role Phone Juan Manuel LIM, Kristen Acosta Primary Care Physic juan alberto Encounter [facility] Date(s): 05/16/23 - 06/15/23 [facility] [address] [place] [address]- Allergies, Adverse Reactions, Alerts Substance Reaction Severity Status morphine hives, SOB Active penicillins hive Active Wellbutrin rash Active Reglan Active cannabis (Schedule I substance) itching/vomiting Active Other Environmental Allergy mercury-fillings Active contrast media (iodine-based) itching throughout body Active Immunizations Given and Recorded Vaccine Date Status Refusal Reason pneumococcal 20-valent conjugate vaccine 05/30/22 Recorded [id number] 12y+ bivalent booster vax 05/12/22 Recorded influenza [...] vaccine, inactivated 04/26/09 Arnoldo rded SARS-CoV-2 mRNA (gkjrygu-vfxe-kitrl) vax 03/10/22 Recorded SARS-CoV-2 mRNA (klkufiz-hitr-mcemt) vax 10/04/21 Recorded SARS-CoV-2 (COVID-19) mRNA BNT-162b2 [...] 12/09/22 12:44:00 EDT, Route to Pharmacy Electronically, [facility], Partial fill upon patient request if the prescription is for a... Start Date: 12/09/22 Stop Date: 09/05/23 Status: Ordered bifidobacterium-lactobacillus oral tablet 2 tablet, By Mouth, 2 times a day, [facility] Brand please (Senior Wellness), # 360 [...] Refills, Soft Stop, 03/27/23 18:43:00 EDT, Tablet, [facility]/pharmacy [...] Maintenance,02/15/23 7:44:00 EDT, Route to Pharmacy Electronically, [facility], Partial fill upon patient request if the prescription is for... Start Date: 02/15/23 Stop Date: 11/12/23 Status: Ordered Juzo Compression Hose Juzo Compression Hose, See Instructions, # 2 each, Refills 2, Tot. Refills 2, Maintenance, Juzo Compression Hose 2 pairs zcftv-wfo-exwr Soft Knee FF Petite 20-30 mmHg Silicone, Black Stock Code [id number] I I I Part #[id number] Size I I I SKU... Start Date: 03/12/23 Status: Ordered levothyroxine 0.088 mg oral tablet 1 tablet = 88 mcg, By Mouth, Daily, # 90 tablet, 3 Refills, Maintenance, 03/15/23 17:17:00 EDT, Tablet, [facility], Partial fill upon patient request if the prescription is fora schedule II opioid drug., 155, cm, 03/15/23 17:11... Start Date: 03/15/23 Status: Ordered lisinopril 5 mg oral tablet 1, tablet, By Mouth, Daily, # 90 tablet, Refills 3, Tot. Refills 3, Maintenance, 03/15/23 17:16:00 EDT, Route to Pharmacy Electronically, [facility], 155, cm, 03/15/23 17:11:00EDT, Height, [...] 03/12/23 Status: Ordered Power Virginia Lift with [place] split-leg sling Power [place] Lift with [place] split-leg sling, See Instructions, # 1 each, [...] Team Personnel Name: Juliann Rich RN Position: [facility] RN Member Role: Primary Care Nurse Name: Elsa Allen NP Position: Reference Physician Member Role: Primary Care Nurse Address: Address: [address] [place] [address] [address] [place] [address]- Name: Emma Mendoza RN Position: [facility] AMB Nurse Member Role: Primary Care Nurse Name: Juan Manuel LIM, Kristen Acosta Position: [facility] Physician - Primary Care Member Role: PCP Address: Address: [address], [place] [address]- Name: Komal Goodrich Position: [facility] Outreach Member Role: Lifetime Consulting Physician Name: Godfrey Cano Position: [facility] RN Member Role: Primary Care Nurse Name: Anette Miranda RN Position: [facility] Onco RN Member Role: Primary Care Nurse Care Team Related Persons Name: DIOMEDES WARNER Address: home [address] [place] [address] Name: MOO HOWELL Address: home [address] [place] [address] Name: MARLON GENTILE
--- OUTSIDE RECORDS SUMMARY | 2024-03-17 13:32 | XMS_ITS | Continuity of Care Document ---
Author Organization [facility] Address [address] [place] [address]- Care Team Providers Care Studio Assistant Name Role Phone Juan Manuel LIM, Kristen Acosta Primary Care Physic juan alberto Encounter [facility] Date(s): 11/04/21 - 12/04/21 [facility] [address] [place] [id number] Allergies, Adverse Reactions, Alerts Substance Reaction [...] 17:46:00 EDT, 08/22/21 17:46:00 EST, Capsule, [facility]/pharmacy #[id number], Partial fill upon patient request if the prescription is for a schedul... Start Date: 08/22/21 Stop Date: 04/19/22 Status: Ordered ascorbic acid 1000 mg oral tablet 1 tablet = 1,000 mg, By Mouth, 2 times a day, # 90 tablet, 1 Refills, Maintenance, 08/11/21 17:03:00 EST, Tablet, [facility]/pharmacy #[id number], Partial fill [...] Route to Pharmacy Electronically, [facility], Partial fill upon patient request if the prescription is for a... Start Date: 08/02/21 Status: Ordered bifidobacterium-lactobacillus oral tablet 2 tablet, By Mouth, 2 times a day, [facility] Brand please ([facility]), # 360 tablet, 3 Refills, Maintenance, 08/11/21 17:02:00 EST, Tablet, [facility]/pharmacy #[id number], Partial fill upon patient request if the prescription is for a schedule II opioid drug., 2... Start Date: 08/11/21 Stop Date: 08/06/22 Status: Ordered calcium carbonate 600 mg oral tablet 1 tablet = 600 mg, By Mouth, 2 times a day, for 90 days, # 180 tablet, 1 Refills, Hard Stop 01/09/22 14:17:00 EDT, 07/13/21 14:17:00 EST, Tablet, [facility], Partial fill upon patient request if the prescription is for a schedul... Start Date: 07/13/21 Stop Date: 01/09/22 Status: Ordered Centrum Silver Ultra Women's oral tablet 1 tablet, By Mouth, Daily, 0 Refills, Maintenance, 07/09/18 8:43:55 EST Start Date: 07/09/18 Status: Ordered [facility] SENIOR PROBIOTIC CAPSULE TAKE 2 [...] STILL NEEDED, # 450 mL, 0 Refills, [id number], 153, cm, 08/30/21 16:43:00 EST, Height Start [...] 08/02/21 14:08:00 EST, Route to Pharmacy Electronically, [facility], Partial fill upon patient request if the prescription is... Start Date: 08/02/21 Status: Ordered levothyroxine 0.088 mg oral tablet 1 tablet = 88 mcg, By Mouth, Daily, # 90 tablet, 1 Refills, Maintenance, 07/13/21 14:09:00 EST, Tablet, [facility], Partial fill upon patient request if the prescription is fora schedule II opioid drug., 153, cm, 06/27/21 7:47:... Start Date: 07/13/21 Status: Ordered lisinopril 5 mg oral tablet 5 mg, 1, tablet, By Mouth, Daily, # 90 tablet, Refills 1, Tot. Refills 1, Maintenance, 07/13/21 14:08:00 EST, Route to Pharmacy Electronically, [facility], Partial fill upon patient request if the prescription is for a schedule... Start Date: 07/13/21 Status: Ordered Power [place] Lift with [place] split-leg sling Power [place] Lift with [place] split-leg sling, See Instructions, # 1 [...] 1 Refills, Maintenance, 07/14/21 17:19:00 EST, Tablet, [facility], Partial fill upon patient request if t... Start Date: 07/14/21 Stop Date: 09/08/21 Status: Ordered Turmeric = 750 mg, By Mouth, 2 times a day, 0 Refills, Maintenance, 07/09/18 8:47:35 EST Start Date: 07/09/18 Status: Ordered Vitamin D3 2000 intl units oral capsule 1 capsule, By Mouth, Daily, # 90 capsule, 1 Refills, 08/11/21 17:04:00 EST, [facility]/pharmacy #[id number], 153, cm, [...]
--- OUTSIDE RECORDS SUMMARY | 2024-03-17 13:33 | XMS_ITS | Continuity of Care Document ---
Author Organization [facility] Address [address] [place] [address]- Care Team Providers Care Knitter Hand Name Role Phone Juan Manuel LIM, Kristen Acosta Primary Care Physic juan alberto Encounter [facility] Date(s): 12/26/21 - 01/25/22 [facility] [address] [place] [address]- Allergies, Adverse Reactions, Alerts Substance Reaction Severity Status morphine hives, SOB Active Wellbutrin rash Active contrast media (iodine-based) itching throughout body Active penicillins hive Active Reglan Active cannabis (Schedule I substance) itching/vomiting Active Other Environmental Allergy mercury-fillings Active Immunizations Given and Recorded Vaccine Date Status Refusal Reason SARS-CoV-2 mRNA (jebkmfw-cebj-gpbzs) vax 10/04/21 Recorded influenza virus vaccine, inactivated [...] 17:46:00 EDT, 08/22/21 17:46:00 EST, Capsule, [facility]/pharmacy #[id number], Partial fill upon patient request if the prescription is for a schedul... Start Date: 08/22/21 Stop Date: 04/19/22 Status: Ordered ascorbic acid 1000 mg oral tablet 1 tablet = 1,000 mg, By Mouth, 2 times a day, # 90 tablet, 1 Refills, Maintenance, 08/11/21 17:03:00 EST, Tablet, [facility]/pharmacy #[id number], Partial fill upon patient request if the prescription is for a schedule II opioid drug., 153, cm, 06/27/21 7:47:00 ES... Start Date: 08/11/21 Status: Ordered baclofen 20 mg oral tablet 20 mg, 1, tablet, By Mouth, 3 times a day, # 360 tablet, Refills 1, Tot. Refills 1, Maintenance, 08/02/21 14:09:00 EST, Route to Pharmacy Electronically, [facility], Partial fill upon patient request if the prescription is for a... Start Date: 08/02/21 Status: Ordered bifidobacterium-lactobacillus oral tablet 2 tablet, By Mouth, 2 times a day, [facility] Brand please (Senior Wellness), # 360 tablet, 3 Refills, Maintenance, 08/11/21 17:02:00 EST, Tablet, [facility]/pharmacy #[id number], Partial fill upon patient request if the prescription is for a schedule II opioid drug., 2... Start Date: 08/11/21 Stop Date: 08/06/22 Status: Ordered calcium carbonate 600 mg oral tablet 1 tablet = 600 mg, By Mouth, 2 times a day, # 180 tablet, 3 Refills, Maintenance, 01/11/22 14:02:00EDT, Tablet, [facility], Partial fill upon patient request if the prescription is for a schedule II opioid drug., 155, cm, 01/02... Start Date: 01/11/22 Stop Date: 01/06/23 Status: Ordered Centrum Silver Ultra Women's oral tablet 1 tablet, By Mouth, Daily, 0 Refills, Maintenance, 07/09/18 8:43:55 EST Start Date: 07/09/18 Status: Ordered [facility] SENIOR PROBIOTIC CAPSULE TAKE 2 CAPSULES [...] STILL NEEDED, # 450 mL, 0 Refills, [id number], 153, cm, 08/30/21 16:43:00 EST, Height Start [...] 01/11/22 13:45:00 EDT, [facility] Start Date: 01/11/22 Status: Ordered gabapentin [...] Tot. Refills 2, Maintenance, 20-30mmghg FF Petite (short),Emhcc-xko-qjbj, soft knee, black silicone Stock code [id number] Part #[id number], Size III. [facility] [id number], 12/07/21 11:32:00 EDT,... Start Date: 12/07/21 Status: [...] 01/11/22 13:42:00 EDT, Route to Pharmacy Electronically, [facility], Partial fill upon patient request if the prescription is for a schedule... Start Date: 01/11/22 Status: Ordered Power [place] Lift with [place] split-leg sling Power [place] Lift with [place] split-leg sling, See Instructions, # 1 each, [...] Refills, Maintenance, 12/09/21 1:28:00 EDT, Tablet, [facility]/pharmacy #[id number], Partial fill upon patient request if the prescription... Start Date: 12/09/21 Stop Date: 02/03/22 Status: Ordered Turmeric = 750 mg, By Mouth, 2 times a day, 0 Refills, Maintenance, 07/09/18 8:47:35 EST Start Date: 07/09/18 Status: Ordered Vitamin D3 2000 intl units oral capsule 1 capsule, By Mouth, Daily, # 90 capsule, 1 Refills, 08/11/21 17:04:00 EST, [facility]/pharmacy #[id number], 153, cm, 06/27/21 7:47:00 EST, Height Start Date: 08/11/21 Status: Ordered Xarelto 20 mg oral tablet 1 tablet = 20 mg, By Mouth, Daily at supper, # 30 tablet, 0 Refills, Maintenance, 01/16/22 13:27:00EDT, Tablet, [facility], Partial fill [...]
--- OUTSIDE RECORDS SUMMARY | 2024-03-17 13:33 | XMS_ITS | Continuity of Care Document ---
Author Organization [facility] Address [address] [place] [address]- Care Team Providers Care Head Chopper Name Role Phone Juan Manuel LIM, Kristen Acosta Primary Care Physic juan alberto [facility] 09[facility]07[facility]23 [facility] [address] [place] [address]- Allergies, Adverse Reactions, Alerts Substance Reaction Severity Status morphine hives, SOB Active penicillins hive Active Wellbutrin rash Active Reglan Active cannabis (Schedule I substance) itching/vomiting Active Other Environmental Allergy mercury-fillings Active contrast media (iodine-based) itching throughout body Active Immunizations Given and Recorded Vaccine Date Status Refusal Reason pneumococcal 20-valent conjugate vaccine 05/30/22 Recorded [id number] 12y+ bivalent booster vax 05/12/22 Recorded influenza [...] vaccine, inactivated 04/26/09 Arnoldo rded SARS-CoV-2 mRNA (rwqlftg-myfw-xqiff) vax 03/10/22 Recorded SARS-CoV-2 mRNA (jzkzszb-doja-asgch) vax 10/04/21 Recorded SARS-CoV-2 (COVID-19) mRNA BNT-162b2 [...] 1 Refills, Maintenance, 08/01/23 13:53:00 EST, Tablet, [facility]/pharmacy #[id number], Partial fill upon patient request if the prescription is for a schedule II opioid drug., 155, cm, 05/28/23 11:02:00 E... Start Date: 08/01/23 Status: Ordered baclofen 20 mg oral tablet 20 mg, 1, tablet, By Mouth, 3 times a day, for 90 days, # 270 tablet, Refills 2, Tot. Refills 2, Hard Stop 06/01/24 12:44:00 EDT, 09/05/23 12:44:00 EST, Route to Pharmacy Electronically, [facility], Partial fill upon patient req... Start Date: 09/05/23 Stop Date: 06/01/24 Status: Ordered baclofen 20 mg oral tablet 20 mg, 1, tablet, By Mouth, 3 times a day, # 270 tablet, Refills 2, Tot. Refills 2, Maintenance, 09/05/23 12:44:00 EST, [facility] 450 mL, 5 Refills, 03/02/22 8:08:00 EDT, [id number], 155, cm, 02/23/22 8:04:00 EDT, Height, [...] Refills, Soft Stop, 03/27/23 18:43:00 EDT, Tablet, [id number], Partial fill upon patient request if the prescription is for a schedule II opioid... Start Date: 03/27/23 Status: Ordered fluconazole 150 mg oral tablet 1 tablet = 150 mg, By Mouth, Every week, # 4 tablet, 1 Refills, Soft Stop, 05/26/22 8:59:00 EDT, Tablet, [id number], Partial fill upon [...] 07/03/23 1:01:00 EST, Route to Pharmacy Electronically, [facility], 155, cm, 05/28/23 [...] Maintenance,02/15/23 7:44:00 EDT, Route to Pharmacy Electronically, [facility], Partial fill upon patient request if the prescription is for... Start Date: 02/15/23 Stop Date: 11/12/23 Status: Ordered Juzo Compression Hose Juzo Compression Hose, See Instructions, # 2 each, Refills 2, Tot. Refills 2, Maintenance, Juzo Compression Hose 2 pairs vanoa-lhg-ckom Soft Knee FF Petite 20-30 mmHg Silicone, Black Stock Code [id number] I I I Part #[id number] Size I I I SKU... Start Date: 03/12/23 Status: Ordered levothyroxine 0.088 mg oral tablet 1 tablet = 88 mcg, By Mouth, Daily, # 90 tablet, 3 Refills, Maintenance, 08/01/23 13:54:00 EST, Tablet, [facility]/pharmacy #[id number], Partial fill upon patient request if the prescription is for a schedule II opioid drug., 155, cm, 05/28/23 11:02:00 EDT, Height... Start Date: 08/01/23 Status: Ordered lisinopril 5 mg oral tablet 1, tablet, By Mouth, Daily, # 90 tablet, Refills 3, Tot. Refills 3, Maintenance, 03/15/23 17:16:00 EDT, Route to Pharmacy Electronically, [facility], 155, cm, 03/15/23 17:11:00EDT, Height, 93.4, kg, 11/01/21 16:52:00 EDT, Dry W... Start Date: 03/15/23 Status: Ordered Mapap 500 mg oral capsule See Instructions, TAKE 2 CAPSULES BY MOUTH 4 TIMES A DAY NEEDED FOR PAIN, # 480 capsule, 0 Refills, Maintenance, 08/01/23 13:54:00 EST, [facility]/pharmacy #[id number], 155, cm, 05/28/23 11:02:00 EDT, Height, 93.4, kg, 11/01/21 16:52:00 EDT, Dry Weight Start Date: 08/01/23 Status: Ordered Power [place] Lift with [place] split-leg sling Power [place] Lift with [place] split-leg sling, See Instructions, # 1 each, [...] 0 Refills, Maintenance, 08/08/23 18:05:00 EST, Tablet, [facility]/pharmacy #[id number], [...] 11/23/23 2:50:00 EDT, 08/03/23 2:50:00 EST, Tablet, [facility] P... Start Date: 08/03/23 Stop Date: 11/23/23 [...] 90 capsule, 1 Refills, 12/11/22 15:16:00 EDT, [facility]/pharmacy #[id number], 155, cm, 10/10/22 13:40:00 EST, Height, 93.4, kg, 11/01/21 16:52:00 EDT, Dry Weight Start Date: 12/11/22 Status: Ordered Xarelto 20 mg oral tablet See Instructions, TAKE 1 TABLET DAILY AT SUPPER, # 90 tablet, 3 Refills, Maintenance, 01/17/23 9:37:00 EDT, [facility], 155, cm, 10/10/22 13:40:00 [...] Name: Juliann Rich RN Position: [facility] RN Member Role: Primary Care Nurse Name: Alejandro CENTENO, Elsa Peterson Position: [facility] Outreach Member Role: Primary Care Nurse Address: Address: [address] [place] [id number]- [place] Name: Emma Mendoza RN Position: [facility] AMB Nurse Member Role: Primary Care Nurse Name: Juan Manuel LIM, Kristen Acosta Position: [facility] Physician - Primary Care Member Role: PCP Address: Address: [address] [place] [address]- Name: Komal Goodrich Position: [facility] Outreach Member Role: Lifetime Consulting Physician Name: Godfrey Cano Position: [facility] RN Member Role: Primary Care Nurse Name: Anette Miranda RN Position: [facility] Onco RN Member Role: Primary Care Nurse Care Team Related Persons Name: DIOMEDES WARNER Address: home [address] [place] [address] Name: MOO HOWELL Address: home [address] [place] [address] Name: MARLON GENTILE
--- OUTSIDE RECORDS SUMMARY | 2024-03-17 13:33 | XMS_ITS | Continuity of Care Document ---
Author Organization [facility] Address [address] [place] [address]- Care Team Providers Care Physical Therapist Aide Name Role Phone Juan Manuel LIM, Kristen Acosta Primary Care Physic juan alberto [facility]): 01[facility]23 - 02/01/23 [facility] [address] [place] [address]- Allergies, Adverse Reactions, Alerts Substance Reaction Severity Status morphine hives, SOB Active penicillins hive Active Wellbutrin rash Active Reglan Active cannabis (Schedule I substance) itching/vomiting Active Other Environmental Allergy mercury-fillings Active contrast media (iodine-based) itching throughout body Active Immunizations Given and Recorded Vaccine Date Status Refusal Reason pneumococcal 20-valent conjugate vaccine 05/30/22 Recorded [id number] 12y+ bivalent booster vax 05/12/22 Recorded influenza [...] vaccine, inactivated 04/26/09 Arnoldo rded SARS-CoV-2 mRNA (vpwlmqb-iawd-pxmdb) vax 03/10/22 Recorded SARS-CoV-2 mRNA (ioalohl-kcrh-hxrmf) vax 10/04/21 Recorded SARS-CoV-2 (COVID-19) mRNA BNT-162b2 [...] 1 Refills, Maintenance, 12/11/22 17:34:00 EDT, Tablet, [facility]/pharmacy #[id number], Partial fill upon patient request if the prescription is for a schedule II opioid drug., 155, cm, 10/10/22 13:40:00 E... Start Date: 12/11/22 Status: Ordered baclofen 20 mg oral tablet 20 mg, 1, tablet, By Mouth, 3 times a day, # 270 tablet, Refills 2, Tot. Refills 2, Maintenance, 12/09/22 12:44:00 EDT, Route to Pharmacy Electronically, [facility], Partial fill upon [...] 01/17/23 19:36:00 EDT, Route to Pharmacy Electronically, [facility], 155, cm, 10/10/22 13:40:00 EST, Height, 93.4,kg, 11/01/21 16:52:00 EDT, Dry Weight Start Date: 01/17/23 Status: Ordered gabapentin 300 mg oral capsule 300 mg, 1, capsule, By Mouth, 3 times a day, for 90 days, # 270 capsule, Refills 2, Tot. Refills 2,Hard Stop 02/15/23 7:44:00 EDT, 05/21/22 7:44:00 EDT, Route to Pharmacy Electronically, [facility], Partial fill upon patient re... Start Date: 05/21/22 Stop Date: 02/15/23 Status: Ordered gabapentin 300 mg oral capsule 300 mg, 1, capsule, By Mouth, 3 times a day, # 270 capsule, Refills 2, Tot. Refills 2, Maintenance,02/15/23 7:44:00 EDT, Route to Pharmacy Electronically, [facility], Partial fill upon patient request if the prescription is for... Start Date: 02/15/23 Stop Date: 11/12/23 Status: Ordered Juzo Compression Hose Juzo Compression Hose, See Instructions, # 2 each, Refills 2, Tot. Refills 2, Maintenance, 20-30mmghg FF Petite (short),Pykvy-yri-uobm, soft knee, black silicone Stock code [id number] Part #[id number], Size III. [facility] [id number], 12/07/21 11:32:00 EDT,... Start Date: 12/07/21 Status: Ordered levothyroxine 0.088 mg oral tablet 1 tablet = 88 mcg, By Mouth, Daily, # 90 tablet, 1 Refills, Maintenance, 09/08/22 14:26:00 EST, Tablet, [facility], Partial fill upon patient request if the prescription is fora schedule II opioid drug., 155, cm, 07/12/22 14:10... Start Date: 09/08/22 Status: Ordered lisinopril 5 mg oral tablet 1, tablet, By Mouth, Daily, # 90 tablet, Refills 1, Maintenance, 01/22/23 21:39:00 EDT, Route to Pharmacy Electronically, [facility], 155, cm, 10/10/22 13:40:00 EST, Height, 93.4,kg, 11/01/21 16:52:00 EDT, Dry Weight Start Date: 01/22/23 Status: Ordered Mapap 500 mg oral capsule See Instructions, TAKE 2 CAPSULES BY MOUTH 4 TIMES A DAY NEEDED FOR PAIN, # 480 capsule, 3 Refills, Maintenance, 06/04/22 16:03:00 EDT, [id number], 155, cm, 05/25/22 13:44:00 EDT, Height, 93.4, kg, 11/01/21 16:52:00 EDT, Dry Weight Start Date: 06/04/22 Status: Ordered Power [place] Lift with [place] split-leg sling Power [place] Lift with [place] split-leg sling, See Instructions, # 1 each, [...] 03/22/23 17:39:00 EDT, 10/05/22 17:39:00 EST, Tablet, [id number], Partial fill upon pa... Start Date: 10/05/22 Stop Date: 03/22/23 Status: Ordered Provigil 200 mg oral tablet 1 tablet = 200 mg, By Mouth, 2 times a day, takes in am and lunchtime brand name only - dispense aswritten, # 56 tablet, 5 Refills, Maintenance, 12/11/22 17:34:00 EDT, Tablet, [id number], Partial fill upon [...] Member Role: Primary Care Nurse Address: Address: [address] [place] [address] [address] [place] [address]- [place] Name: Emma Mendoza RN Position: [facility] AMB Nurse Member Role: Primary Care Nurse Name: Juan Manuel LIM, Kristen Acosta Position: [facility] Physician - Primary Care Member Role: PCP Address: Address: [address] [place] [id number]- Name: Komal Goodrich Position: [facility] Outreach Member Role: Lifetime Consulting Physician Name: Godfrey Cano Position: [facility] RN Member Role: Primary Care Nurse Name: Anette Miranda RN Position: [facility] Onco RN Member Role: Primary Care Nurse Care Team Related Persons Name: ALANA DIOMEDES Address: home [address] [place] [address] Name: MOO HOWELL Address: [address] [place] [address] Name: MARLON GENTILE
--- OUTSIDE RECORDS SUMMARY | 2024-03-17 13:33 | XMS_ITS | Continuity of Care Document ---
Author Organization [facility] Address [address] [place] [address]- Care Team Providers Care Repairer Sash And Door Name Role Phone Juan Manuel LIM, Kristen Acosta Primary Care Physic juan alberto [facility]): 12[facility]11[facility]22 - 01/10/23 [facility] [address] [place] [address]- Allergies, Adverse Reactions, Alerts Substance Reaction Severity Status morphine hives, SOB Active penicillins hive Active Wellbutrin rash Active Reglan Active cannabis (Schedule I substance) itching/vomiting Active Other Environmental Allergy mercury-fillings Active contrast media (iodine-based) itching throughout body Active Immunizations Given and Recorded Vaccine Date Status Refusal Reason pneumococcal 20-valent conjugate vaccine 05/30/22 Recorded [id number] 12y+ bivalent booster vax 05/12/22 Recorded influenza [...] vaccine, inactivated 04/26/09 Arnoldo rded SARS-CoV-2 mRNA (iekzxpj-yvfr-tklfk) vax 03/10/22 Recorded SARS-CoV-2 mRNA (fnjrbhu-vxef-dnrof) vax 10/04/21 Recorded SARS-CoV-2 (COVID-19) mRNA BNT-162b2 [...] 12/09/22 12:44:00 EDT, Route to Pharmacy Electronically, [facility], Partial [...] 01/02/22 9:03:00 EDT, Route to Pharmacy Electronically, [facility], Partial fill upon [...] 05/21/22 7:44:00 EDT, Route to Pharmacy Electronically, [facility], Partial fill upon patient re... Start Date: 05/21/22 Stop Date: 02/15/23 Status: Ordered gabapentin 300 mg oral capsule 300 mg, 1, capsule, By Mouth, 3 times a day, # 270 capsule, Refills 2, Tot. Refills 2, Maintenance,02/15/23 7:44:00 EDT, Route to Pharmacy Electronically, [facility], Partial fill upon patient request if the prescription is for... Start Date: 02/15/23 Stop Date: 11/12/23 Status: Ordered Juzo Compression Hose Juzo Compression Hose, See Instructions, # 2 each, Refills 2, Tot. Refills 2, Maintenance, 20-30mmghg FF Petite (short),Tvisi-gwx-vlpg, soft knee, black silicone Stock code [id number] Part #[id number], Size III. [facility] [id number], 12/07/21 11:32:00 EDT,... Start Date: 12/07/21 Status: Ordered levothyroxine 0.088 mg oral tablet 1 tablet = 88 mcg, By Mouth, Daily, # 90 tablet, 1 Refills, Maintenance, 09/08/22 14:26:00 EST, Tablet, [facility], Partial fill upon patient request if the prescription is fora schedule II opioid drug., 155, cm, 07/12/22 14:10... Start Date: 09/08/22 Status: Ordered lisinopril 10 mg oral tablet 10 mg, 1, tablet, By Mouth, Daily, # 90 tablet, Refills 0, Tot. Refills 0, Maintenance, 01/01/23 8:04:00 EDT, Route to Pharmacy Electronically, [facility]/pharmacy #[id number], Partial fill upon patient request if the prescription is for a schedule II opioid drug.... Start Date: 01/01/23 Status: Ordered lisinopril 5 mg oral tablet 5 mg, 1, tablet, By Mouth, Daily, # 90 tablet, Refills 3, Tot. Refills 3, Maintenance, 02/24/22 15:53:00 EDT, Route to Pharmacy Electronically, [facility]/pharmacy #[id number], Partial fill upon patient request if the prescription is for a schedule II opioid drug.... Start Date: 02/24/22 Status: Ordered Mapap 500 mg oral capsule See Instructions, TAKE 2 CAPSULES BY MOUTH 4 TIMES A DAY NEEDED FOR PAIN, # 480 capsule, 3 Refills, Maintenance, 06/04/22 16:03:00 EDT, [id number], 155, cm, 05/25/22 13:44:00 EDT, Height, 93.4, kg, 11/01/21 16:52:00 EDT, Dry Weight Start Date: 06/04/22 Status: Ordered Power [place] Lift with [place] split-leg sling Power [place] Lift with [place] split-leg sling, See Instructions, # 1 each, [...] EDT, 10/05/22 17:39:00 EST, Tablet, [facility]/pharmacy #[id number], Partial fill upon pa... Start [...] 90 capsule, 1 Refills, 12/11/22 15:16:00 EDT, [facility]/pharmacy #[id number], 155, cm, 10/10/22 13:40:00 EST, Height, 93.4, kg, 11/01/21 16:52:00 EDT, Dry Weight Start Date: 12/11/22 Status: Ordered Xarelto 20 mg oral tablet 1 tablet = 20 mg, By Mouth, Daily at supper, # 90 tablet, 3 Refills, Maintenance, 02/01/22 12:42:00EDT, Tablet, [facility], Partial fill upon patient request [...] Team Personnel Name: Juliann Rich RN Position: [facility] RN Member Role: Primary Care Nurse Name: Elsa Allen NP Position: Reference Physician Member Role: Primary Care Nurse Address: Address: [address] [place] [address] [address] [place] [address]- Name: Emma Mendoza RN Position: [facility] Nurse Member Role: Primary Care Nurse Name: Juan Manuel LIM, Kristen Acosta Position: [facility] Physician - Primary Care Member Role: PCP Address: Address: [address] [place] [id number]- Name: Jade Medina Position: [facility] RN Member Role: Primary Care Nurse Name: Komal Goodrich Position: [facility] Outreach Member Role: Lifetime Consulting Physician Name: Godfrey Cano Position: [facility] RN Member Role: Primary Care Nurse Name: Anette Miranda RN Position: [facility] Onco RN Member Role: Primary Care Nurse Care Team Related Persons Name: DIOMEDES WARNER Address: [address] [place] [address] Name: MOO HOWELL Address: [address] [place] [address] Name: MARLON GENTILE
--- OUTSIDE RECORDS SUMMARY | 2024-03-17 13:33 | XMS_ITS | Continuity of Care Document ---
Author Organization [facility] Sonia Mozido [facility] Address [address], [address] [place] [address]- Care Team Providers Care Communications Engineering Technician Name Role Phone Rey CENTENO, Javy Lerma Primary Care Physician Encounter [facility] [id number] Date(s): 01/12/21 - 02/24/21 [facility] [address] [place] [address]- Attending Physician: Miranda Gordon MD Referring Physician: Efrem Gomez NP Allergies, Adverse Reactions, Alerts Substance Reaction [...] Acute 03/18/21 10:20:00 EDT,02/18/21 10:20:00 EDT, Liquid, [facility]/pharmacy #[id number], Partial fill [...] Refills, Maintenance, 02/18/21 10:22:00 EDT,Liquid, [facility]/pharmacy #[id number], Partial fill [...] to Pharmacy Electronically, [facility]/pharmacy #[id number] Tablet, Partial fill upon patient r... [...]
--- OUTSIDE RECORDS SUMMARY | 2024-03-17 13:33 | XMS_ITS | Continuity of Care Document ---
Author Organization [facility] Address [address] [place] [address]- Care Team Providers Care Radio/Tv Technician Name Role Phone Juan Manuel LIM, Kristen Acosta Primary Care Physic juan alberto [facility]): 11[facility]18[facility]21 - 12/18/21 [facility] [address] [place] [address]- Allergies, Adverse Reactions, Alerts Substance Reaction Severity [...] BNT-162b2 vac 09/18/20 Recorded pneumococcal 23-valent vaccine 10/1/20 Recorded pneumococcal 23-valent vaccine 08/13/06 Recorded zoster [...] 1 Refills, Maintenance, 08/11/21 17:03:00 EST, Tablet, [facility]/pharmacy #[id number], Partial fill upon patient request if the prescription is for a schedule II opioid drug., 153, cm, 06/27/21 7:47:00 ES... Start Date: 08/11/21 Status: Ordered baclofen 20 mg oral tablet 20 mg, 1, tablet, By Mouth, 3 times a day, # 360 tablet, Refills 1, Tot. Refills 1, Maintenance, 08/02/21 14:09:00 EST, Route to Pharmacy Electronically, [facility], Partial fill upon patient request if the prescription is for a... Start Date: 08/02/21 Status: Ordered bifidobacterium-lactobacillus oral tablet 2 tablet, By Mouth, 2 times a day, [facility] Brand please ([facility]), # 360 tablet, 3 Refills, Maintenance, 08/11/21 17:02:00 EST, Tablet, [facility]/pharmacy #[id number], Partial fill upon patient request if the prescription is for a schedule II opioid drug., 2... Start Date: 08/11/21 Stop Date: 08/06/22 Status: Ordered calcium carbonate 600 mg oral tablet 1 tablet = 600 mg, By Mouth, 2 times a day, for 90 days, # 180 tablet, 1 Refills, Hard Stop 01/09/22 14:17:00 EDT, 07/13/21 14:17:00 EST, Tablet, [facility], Partial fill [...] STILL NEEDED, # 450 mL, 0 Refills, [id number], 153, cm, 08/30/21 16:43:00 EST, Height Start [...] 04/05/21 13:39:00 EDT, Route to Pharmacy Electronically, [facility], Partial fill upon patient request if the prescription is for a schedule... Start Date: 04/05/21 Stop Date: 05/05/21 Status: Ordered gabapentin 300 mg oral capsule 300 mg, 1, capsule, By Mouth, Daily at bedtime, # 90 capsule, Refills 2, Tot. Refills 2, Maintenance, 08/02/21 14:08:00 EST, Route to Pharmacy Electronically, [facility], Partial fill upon patient request if the prescription is... Start Date: 08/02/21 Status: Ordered Juzo Compression Hose Juzo Compression Hose, See Instructions, # 2 each, Refills 2, Tot. Refills 2, Maintenance, 20-30mmghg FF Petite (short),Qxvfz-azw-lryy, soft knee, black silicone Stock code [id number] Part #[id number], Size III. [facility] [id number], 12/07/21 11:32:00 EDT,... Start Date: 12/07/21 Status: Ordered levothyroxine 0.088 mg oral tablet 1 tablet = 88 mcg, By Mouth, Daily, # 90 tablet, 1 Refills, Maintenance, 07/13/21 14:09:00 EST, Tablet, [facility], Partial fill upon patient request if the prescription is fora schedule II opioid drug., 153, cm, 06/27/21 7:47:... Start Date: 07/13/21 Status: Ordered lisinopril 5 mg oral tablet 5 mg, 1, tablet, By Mouth, Daily, # 90 tablet, Refills 1, Tot. Refills 1, Maintenance, 07/13/21 14:08:00 EST, Route to Pharmacy Electronically, [facility], Partial fill upon patient request if the prescription is for a schedule... Start Date: 07/13/21 Status: Ordered Power [place] Lift with [place] split-leg sling Power [place] Lift with [place] split-leg sling, See Instructions, # 1 each, [...] 1 Refills, Maintenance, 12/09/21 1:28:00 EDT, Tablet, [facility]/pharmacy #[id number], Partial fill upon patient request if the prescription... Start Date: 12/09/21 Stop Date: 02/03/22 Status: Ordered Turmeric = 750 mg, By Mouth, 2 times a day, 0 Refills, Maintenance, 07/09/18 8:47:35 EST Start Date: 07/09/18 Status: Ordered Vitamin D3 2000 intl units oral capsule 1 capsule, By Mouth, Daily, # 90 capsule, 1 Refills, 08/11/21 17:04:00 EST, [facility]/pharmacy #[id number], 153, cm, 06/27/21 7:47:00 [...]
--- OUTSIDE RECORDS SUMMARY | 2024-03-17 13:33 | XMS_ITS | Continuity of Care Document ---
Author Organization [facility] Address [address] [place] [address]- Care Team Providers Care Selector Packer Name Role Phone Juan Manuel LIM, Kristen Acosta Primary Care Physic juan alberto [facility]24 - 02/03/24 [facility] [address] [place] [address]- Allergies, Adverse Reactions, Alerts Substance Reaction Severity Status morphine hives, SOB Active penicillins hive Active Wellbutrin rash Active Reglan Active cannabis (Schedule I substance) itching/vomiting Active Other Environmental Allergy mercury-fillings Active contrast media (iodine-based) itching throughout body Active Immunizations Given and Recorded Vaccine Date Status Refusal Reason SARS-CoV-2(COVID-19)mRNA-LNP vac([id number]) 10/19/23 Recorded SARS-CoV-2(COVID-19)mRNA-LNP vac([id number]) 07/03/23 Recorded RSV vaccine preF3, recombinant 05/19/23 [...] influenza virus vaccine, inactivated 04/26/09 Arnoldo rded [id number] 12y+ bivalent booster vax 01/23/23 Recorded [id number]-[id number] 12y+ bivalent booster vax 05/12/22 Recorded pneumococcal 20-valent conjugate vaccine 05/30/22 Recorded SARS-CoV-2 mRNA (htydusg-vlpu-atnji) vax 03/10/22 Recorded SARS-CoV-2 mRNA (vrrkqrn-gocp-jacyu) vax 10/04/21 Recorded SARS-CoV-2 (COVID-19) mRNA BNT-162b2 [...] 1 Refills, Maintenance, 08/01/23 13:53:00 EST, Tablet, [facility]/pharmacy #[id number], Partial fill [...] 12:44:00 EST, Route to Pharmacy Electronically, [facility], Partial fill upon patient req... Start Date: 09/05/23 Stop Date: 06/01/24 Status: Ordered baclofen 20 mg oral tablet 20 mg, 1, tablet, By Mouth, 3 times a day, for 90 days, # 270 tablet, Refills 1, Tot. Refills 1, Hard Stop 06/25/24 10:31:00 EST, 12/28/23 10:31:00 EDT, Route to Pharmacy Electronically, [facility], Partial fill upon patient req... Start Date: 12/28/23 Stop Date: 06/25/24 Status: Ordered baclofen 20 mg oral tablet 20 mg, 1, tablet, By Mouth, 3 times a day, # 270 tablet, Refills 0, Tot. Refills 0, Maintenance, 06/25/24 10:31:00 EST, Route to Pharmacy Electronically, [facility], [...] 09/05/23 12:44:00 EST, [id number] Partial fill upon patient request if the pre... Start Date: 09/05/23 Stop Date: 06/01/24 Status: Ordered bifidobacterium-lactobacillus oral tablet 2 tablet, By Mouth, 2 times a day, [facility] Brand please ([facility]), # 360 tablet, 3 Refills, [...] tablet, 2 Refills, Maintenance, 01/06/23 14:02:00EDT, Tablet, [facility]/pharmacy #[id number], Partial fill upon patient request if the prescription is for a schedule II opioid drug., 155, cm, 02/23/22 8:04:00 EDT... Start Date: 01/06/23 Stop Date: 10/03/23 Status: Ordered Centrum Silver Ultra Women's oral tablet 1 tablet, By Mouth, Daily, 0 Refills, Maintenance, 07/09/18 8:43:55 EST Start Date: 07/09/18 Status: Ordered [facility] SENIOR PROBIOTIC CAPSULE TAKE 2 CAPSULES BY MOUTH TWICE A DAY Start Date: 11/01/21 Status: Ordered [facility] Senior Probiotic Capsule [facility] Senior Probiotic Capsule, See Instructions, # 180 [...] 450 mL, 5 Refills, 03/02/22 8:08:00 EDT, [facility]/pharmacy #[id number], 155, cm, 02/23/22 8:04:00 EDT, Height, [...] Refills, Soft Stop, 03/27/23 18:43:00 EDT, Tablet, [facility]/pharmacy #[id number], Partial fill upon patient request if the prescription is for a schedule II opioid... Start Date: 03/27/23 Status: Ordered fluconazole 150 mg oral tablet 1 tablet = 150 mg, By Mouth, Every week, # 4 tablet, 1 Refills, Soft Stop, 05/26/22 8:59:00 EDT, Tablet, [facility]/pharmacy #[id number], Partial fill upon [...] Maintenance,12/28/23 10:30:00 EDT, Route to Pharmacy Electronically, [facility], Partialfill upon patient request if the [...] 2, Maintenance, Juzo Compression Hose 2 pairs pqrxb-qlm-irwk Soft Knee FF Petite 20-30 mmHg Silicone, Black Stock Code [id number] I I I Part #[id number] Size I I I SKU... Start Date: 03/12/23 Status: Ordered levothyroxine 0.088 mg oral tablet 1 tablet = 88 mcg, By Mouth, Daily, # 90 tablet, 1 Refills, Maintenance, 10/01/23 17:11:00 EST, Tablet, [facility]/pharmacy #[id number], Partial fill upon patient request if the prescription is for a schedule II opioid drug., 155, cm, 05/28/23 11:02:00 EDT, Height... Start Date: 10/01/23 Status: Ordered lisinopril 5 mg oral tablet 1, tablet, By Mouth, Daily, # 90 tablet, Refills 1, Tot. Refills 1, Maintenance, 10/01/23 17:15:00 EST, Route to Pharmacy Electronically, [facility]/pharmacy #[id number], 155, cm, 05/28/23 11:02:00 EDT, Height, 93.4, kg, 11/01/21 16:52:00 EDT, Dry Weight Start Date: 10/01/23 Status: Ordered Mapap 500 mg oral capsule See Instructions, TAKE 2 CAPSULES BY MOUTH 4 TIMES A DAY NEEDED FOR PAIN, # 480 capsule, 0 Refills, Maintenance, 11/12/23 15:45:00 EDT, [facility]/pharmacy #[id number], 155, cm, 05/28/23 11:02:00 EDT, Height Start Date: 11/12/23 Status: Ordered Power [place] Lift with [place] split-leg sling Power [place] Lift with [place] split-leg sling, See Instructions, # 1 each, [...] Team Personnel Name: Juliann Rich RN Position: [facility] RN Member Role: Primary Care Nurse Name: Elsa Allen NP Position: [facility] Outreach Member Role: Primary Care Nurse Address: Address: [address] [facility] [place] [address]- [place] Name: Emma Mendoza RN Position: [facility] AMB Nurse Member Role: Primary Care Nurse Name: Kristen Zambrano MD Position: [facility] Physician - Primary Care Member Role: PCP Address: Address: [address] [place] [address]- [place] Name: Anette Soler RN Position: [facility] Onco RN Member Role: Primary Care Nurse Name: Komal Goodrich Position: [facility] Outreach Member Role: Lifetime Consulting Physician Name: Godfrey Cano Position: [facility] RN Member Role: Primary Care Nurse Care Team Related Persons Name: DIOMEDES WARNER Address: [address] [place] [address] Name: MOO HOWELL Address: [address] [place] [address] Name: MARLON GENTILE
--- OUTSIDE RECORDS SUMMARY | 2024-03-17 13:33 | XMS_ITS | Continuity of Care Document ---
Author Organization [facility] Address [address] [place] [address]- Care Team Providers Care [employer] Caretaker Name Role Phone Juan Manuel LIM, Kristen Acosta Primary Care Physic juan alberto [facility]): 08[facility]23 - 08/31/23 [facility] [address] [place] [address]- Allergies, Adverse Reactions, Alerts Substance Reaction Severity Status morphine hives, SOB Active penicillins hive Active Wellbutrin rash Active Reglan Active cannabis (Schedule I substance) itching/vomiting Active Other Environmental Allergy mercury-fillings Active contrast media (iodine-based) itching throughout body Active Immunizations Given and Recorded Vaccine Date Status Refusal Reason pneumococcal 20-valent conjugate vaccine 05/30/22 Recorded [id number] 12y+ bivalent booster vax 05/12/22 Recorded influenza [...] vaccine, inactivated 04/26/09 Arnoldo rded SARS-CoV-2 mRNA (kdqgsbw-orgj-ragpa) vax 03/10/22 Recorded SARS-CoV-2 mRNA (jzvakei-ouhf-slarm) vax 10/04/21 Recorded SARS-CoV-2 (COVID-19) mRNA BNT-162b2 [...] 1 Refills, Maintenance, 08/01/23 13:53:00 EST, Tablet, [facility]/pharmacy #[id number], Partial fill upon patient request if the [...] 12:44:00 EST, Route to Pharmacy Electronically, [facility], Partial fill upon patient req... Start Date: 09/05/23 Stop Date: 06/01/24 Status: Ordered baclofen 20 mg oral tablet 20 mg, 1, tablet, By Mouth, 3 times a day, for 90 days, # 270 tablet, Refills 2, Tot. Refills 2, Hard Stop 09/05/23 12:44:00 EST, 12/09/22 12:44:00 EDT, Route to Pharmacy Electronically, [facility], Partial fill upon patient req... Start Date: 12/09/22 Stop Date: 09/05/23 Status: Ordered baclofen 20 mg oral tablet 20 mg, 1, tablet, By Mouth, 3 times a day, # 270 tablet, Refills 2, Tot. Refills 2, Maintenance, 09/05/23 12:44:00 EST, Route to Pharmacy Electronically, [facility]/pharmacy #[id number], Partial fill upon patientrequest if the prescription is for a schedule II op... Start Date: 09/05/23 Stop Date: 06/01/24 Status: Ordered bifidobacterium-lactobacillus oral tablet 2 tablet, By Mouth, 2 times a day, [facility] Brand please (Senior Wellness), # 360 tablet, 3 Refills, Maintenance, 08/11/21 17:02:00 EST, Tablet, [facility]/pharmacy #[id number], Partial fill upon patient request if the prescription is for a schedule II opioid drug., 2... Start Date: 08/11/21 Stop Date: 08/06/22 Status: Ordered calcium carbonate 600 mg oral tablet 1 tablet = 600 mg, By Mouth, 2 times a day, # 180 tablet, 2 Refills, Maintenance, 01/06/23 14:02:00EDT, Tablet, [facility]/pharmacy #[id number], Partial fill upon patient request if the prescription is for a schedule II opioid drug., 155, cm, 02/23/22 8:04:00 EDT... Start Date: 01/06/23 Stop Date: 10/03/23 Status: Ordered Centrum Silver Ultra Women's oral tablet 1 tablet, By Mouth, Daily, 0 Refills, Maintenance, 07/09/18 8:43:55 EST Start Date: 07/09/18 Status: Ordered [facility] SENIOR PROBIOTIC CAPSULE TAKE 2 CAPSULES BY MOUTH TWICE A DAY Start Date: 11/01/21 Status: Ordered [facility] Senior Probiotic Capsule [facility] Senior Probiotic Capsule, See Instructions, # [...] mL, 5 Refills, 03/02/22 8:08:00 EDT, [facility]/pharmacy #[id number], 155, cm, 02/23/22 8:04:00 EDT, [...] Soft Stop, 03/27/23 18:43:00 EDT, Tablet, [facility]/pharmacy #[id number], Partial fill upon patient request if the prescription is for a schedule II opioid... Start Date: 03/27/23 Status: Ordered fluconazole 150 mg oral tablet 1 tablet = 150 mg, By Mouth, Every week, # 4 tablet, 1 Refills, Soft Stop, 05/26/22 8:59:00 EDT, Tablet, [facility]/pharmacy #[id number], Partial fill upon patient request [...] 07/03/23 1:01:00 EST, Route to Pharmacy Electronically, [facility], 155, cm, 05/28/23 11:02:00 [...] 2, Maintenance, Juzo Compression Hose 2 pairs qbuel-ywj-yosx Soft Knee FF Petite 20-30 mmHg Silicone, Black Stock Code [id number] I I I Part #[id number] Size I I I SKU... Start Date: 03/12/23 Status: Ordered levothyroxine 0.088 mg oral tablet 1 tablet = 88 mcg, By Mouth, Daily, # 90 tablet, 3 Refills, Maintenance, 08/01/23 13:54:00 EST, Tablet, [facility]/pharmacy #[id number], Partial fill upon patient request if the prescription is for a schedule II opioid drug., 155, cm, 05/28/23 11:02:00 EDT, Height... Start Date: 08/01/23 Status: Ordered lisinopril 5 mg oral tablet 1, tablet, By Mouth, Daily, # 90 tablet, Refills 3, Tot. Refills 3, Maintenance, 03/15/23 17:16:00 EDT, Route to Pharmacy Electronically, [facility], 155, cm, 03/15/23 17:11:00EDT, Height, 93.4, kg, 11/01/21 16:52:00 EDT, Dry W... Start Date: 03/15/23 Status: Ordered Mapap 500 mg oral capsule See Instructions, TAKE 2 CAPSULES BY MOUTH 4 TIMES A DAY NEEDED FOR PAIN, # 480 capsule, 0 Refills, Maintenance, 08/01/23 13:54:00 EST, [facility]/pharmacy #[id number], 155, cm, 05/28/23 11:02:00 EDT, Height, 93.4, kg, 11/01/21 16:52:00 EDT, Dry Weight Start Date: 08/01/23 Status: Ordered Power [place] Lift with [place] split-leg sling Power [place] Lift with [place] split-leg sling, See Instructions, # 1 each, [...] 0 Refills, Maintenance, 08/08/23 18:05:00 EST, Tablet, [facility]/pharmacy #[id number], Partial fill upon patient request if... Start Date: 08/08/23 Stop Date: 09/05/23 Status: Ordered Provigil 200 mg oral tablet 1 tablet = 200 mg, By Mouth, 2 times a day, for 28 days, takes in am and lunchtime brand name only - dispense as written Brand name only, # 56 tablet, 3 Refills, Hard Stop 11/23/23 2:50:00 EDT, 08/03/23 2:50:00 EST, Tablet, [facility]... Start Date: 08/03/23 Stop Date: [...] 90 capsule, 1 Refills, 12/11/22 15:16:00 EDT, [facility]/pharmacy #[id number], 155, cm, 10/10/22 13:40:00 EST, Height, 93.4, kg, 11/01/21 16:52:00 EDT, Dry Weight Start Date: 12/11/22 Status: Ordered Xarelto 20 mg oral tablet See Instructions, TAKE 1 TABLET DAILY AT SUPPER, # 90 tablet, 3 Refills, Maintenance, 01/17/23 9:37:00 EDT, [facility], 155, cm, 10/10/22 13:40:00 [...] Personnel Name: Juliann Rich RN Position: [facility] RN Member Role: Primary Care Nurse Name: Elsa Allen NP Position: [facility] Outreach Member Role: Primary Care Nurse Address: Address: [address] [place] [address] [address] [place] [address]- [place] Name: Emma Mendoza RN Position: [facility] AMB Nurse Member Role: Primary Care Nurse Name: Juan Manuel LIM, Kristen Acosta Position: [facility] Physician - Primary Care Member Role: PCP Address: Address: [address] [place] [address]- Name: Komal Goodrich Position: [facility] Outreach Member Role: Lifetime Consulting Physician Name: Godfrey Cano Position: [facility] RN Member Role: Primary Care Nurse Name: Anette Miranda RN Position: [facility] Onco RN Member Role: Primary Care Nurse Care Team Related Persons Name: DIOMEDES WARNER Address: [address] [place] [address] Name: MOO HOWELL Address: [address] [place] [address] Name: MARLON GENTILE
--- OUTSIDE RECORDS SUMMARY | 2024-03-17 13:33 | XMS_ITS | Continuity of Care Document ---
Author Organization [facility] Address [address] [place] [address]- Care Team Providers Care Cut In Worker Name Role Phone Juan Manuel LIM, Kristen Acosta Primary Care Physic juan alberto [facility]23 - 04/11/23 [facility] [address] [place] [address]- Allergies, Adverse Reactions, Alerts Substance Reaction Severity Status morphine hives, SOB Active penicillins hive Active Wellbutrin rash Active Reglan Active cannabis (Schedule I substance) itching/vomiting Active Other Environmental Allergy mercury-fillings Active contrast media (iodine-based) itching throughout body Active Immunizations Given and Recorded Vaccine Date Status Refusal Reason pneumococcal 20-valent conjugate vaccine 05/30/22 Recorded [id number] 12y+ bivalent booster vax 05/12/22 Recorded influenza [...] vaccine, inactivated 04/26/09 Arnoldo rded SARS-CoV-2 mRNA (hmeffiq-orwk-cmuxf) vax 03/10/22 Recorded SARS-CoV-2 mRNA (qbprevu-ecav-mzjbk) vax 10/04/21 Recorded SARS-CoV-2 (COVID-19) mRNA BNT-162b2 [...] 1 Refills, Maintenance, 12/11/22 17:34:00 EDT, Tablet, [facility]/pharmacy #[id number], Partial fill upon patient request if the prescription is for a schedule II opioid drug., 155, cm, 10/10/22 13:40:00 E... Start Date: 12/11/22 Status: Ordered baclofen 20 mg oral tablet 20 mg, 1, tablet, By Mouth, 3 times a day, # 270 tablet, Refills 2, Tot. Refills 2, Maintenance, 12/09/22 12:44:00 EDT, Route to Pharmacy Electronically, [facility], Partial fill upon patient request [...] A DAY Start Date: 11/01/21 Status: Ordered [facility] Senior Probiotic Capsule [facility] Senior Probiotic Capsule, See Instructions, [...] Refills, Soft Stop, 03/27/23 18:43:00 EDT, Tablet, [facility]/pharmacy #[id number], Partial fill upon patient request if the prescription is for a schedule II opioid... Start Date: 03/27/23 Status: Ordered fluconazole 150 mg oral tablet 1 tablet = 150 mg, By Mouth, Every week, # 4 tablet, 1 Refills, Soft Stop, 05/26/22 8:59:00 EDT, Tablet, [facility]/pharmacy #[id number], Partial [...] EDT, Route to Pharmacy Electronically, [facility], 155, cm, 10/10/22 [...] 2, Maintenance, Juzo Compression Hose 2 pairs niice-zwy-htcv Soft Knee FF Petite 20-30 mmHg Silicone, Black Stock Code [id number] I I I Part #[id number] Size I I I SKU... Start Date: [...] capsule, 0 Refills, Maintenance, 03/12/23 9:16:00 EDT, [facility]/pharmacy #[id number], 155, cm, 10/10/22 13:40:00 EST, Height, 93.4, kg, 11/01/21 16:52:00 EDT, Dry Weight Start Date: 03/12/23 Status: Ordered Power [place] Lift with [place] split-leg sling Power [place] Lift with [place] split-leg sling, See Instructions, # 1 each, [...] 5 Refills, Maintenance, 12/11/22 17:34:00 EDT, Tablet, [facility]/pharmacy #[id number], Partial [...] Team Personnel Name: Juliann Rich RN Position: [facility] RN Member Role: Primary Care Nurse Name: Elsa Allen NP Position: Reference Physician Member Role: Primary Care Nurse Address: Address: [address] [place] [address] [address] [place] [address]- Name: Emma Mendoza RN Position: [facility] AMB Nurse Member Role: Primary Care Nurse Name: Juan Manuel LIM, Kristen Acosta Position: [facility] Physician - Primary Care Member Role: PCP Address: Address: [address] [place] [address]- Name: Komal Goodrich Position: [facility] Outreach Member Role: Lifetime Consulting Physician Name: Godfrey Cano Position: [facility] RN Member Role: Primary Care Nurse Name: Anette Miranda RN Position: [facility] Onco RN Member Role: Primary Care Nurse Care Team Related Persons Name: DIOMEDES WARNER Address: [address] [place] [address] Name: MOO HOWELL Address: [address] [place] [address] Name: MARLON GENTILE
--- OUTSIDE RECORDS SUMMARY | 2024-03-17 13:33 | XMS_ITS | Continuity of Care Document ---
Author Organization [facility] Address [address] [place] [address]- Care Team Providers Care Mortgage Professional Name Role Phone Javy Le NP Primary Care Physician [id number] Date(s): 03/09/21 - 03/16/21 [facility] [address] [place] [address]- Encounter Diagnosis Bladder spasm(Discharge Diagnosis) - 03/13/21 MS (multiple sclerosis)(Discharge Diagnosis) - 03/13/21 Trigeminal neuralgia of right side of face(Discharge Diagnosis) - 03/13/21 Chronic saddle pulmonary embolism(Discharge Diagnosis) - 03/13/21 Bilateral lower extremity edema(Discharge Diagnosis) - 03/13/21 Hypertension(Discharge Diagnosis) - 03/13/21 Attending Physician: Javy Le NP Allergies, Adverse [...] Acute 03/18/21 10:20:00 EDT,02/18/21 10:20:00 EDT, Liquid, [id number], Partial fill upon patient request [...] 02/18/21 10:23:00 EDT, Route to Pharmacy Electronically, [facility]/pharmacy #[id number], Partial fill upon patient request if the [...] mL, 0 Refills, Maintenance, 02/18/21 10:22:00 EDT,Liquid, [id number], Partial fill upon patient request [...] Effective Dates Health Status Clinical Service Informant Bladder spasm Discharge Diagnosis 03/13/21 MS (multiple sclerosis) Discharge Diagnosis 03/13/21 Trigeminal neuralgia of right side of face Discharge Diagnosis 03/13/21 Chronic saddle pulmonary embolism Discharge Diagnosis 03/13/21 Bilateral lower extremity edema Discharge Diagnosis 03/13/21 Hypertension Discharge Diagnosis 03/13/21 Vital Signs Most recent to oldest [Reference Range]: 1 Height 153 cm (03/09/21 1:43 PM) Blood pressure sites Arm, right (03/09/21 1:43 PM) Weight Obtained Via Patient/family state d (03/09/21 1:43 PM) Social History Social History Type Response Smoking Status Never smoker entered on: 11/15/14 Sex
--- OUTSIDE RECORDS SUMMARY | 2024-03-17 13:33 | XMS_ITS | Continuity of Care Document ---
Author Organization [facility] Address [address] [place] [id number]- Care Team Providers Care Interstate Bus Dispatcher Name Role Phone Juan Manuel LIM, Kristen Acosta Primary Care Physic juan alberto [place] [facility] [place] 09[place] [facility] [address] [place] [id number] Allergies, Adverse Reactions, Alerts Substance Reaction Severity Status morphine hives, SOB Active penicillins hive Active Wellbutrin rash Active Reglan Active cannabis (Schedule I substance) itching/vomiting Active Other Environmental Allergy mercury-fillings Active contrast media (iodine-based) itching throughout body Active Immunizations Given and Recorded Vaccine Date Status Refusal Reason pneumococcal 20-valent conjugate vaccine 05/30/22 Recorded [id number] 12y+ bivalent booster vax 05/12/22 Recorded influenza virus vaccine, inactivated 03/29/22 Arnoldo rded influenza virus vaccine, inactivated 04/10/21 Arnoldo rded influenza virus vaccine, inactivated 04/03/20 Arnoldo rded influenza virus vaccine, inactivated 05/13/19 Arnoldo rded influenza virus vaccine, inactivated 04/16/18 Arnoldo rded influenza virus vaccine, inactivated 05/07/17 Arnoldo rded influenza virus vaccine, inactivated 04/19/16 Arnoldo rded influenza virus vaccine, inactivated 04/12/15 Arnodlo rded influenza virus vaccine, inactivated 04/01/13 Arnoldo rded influenza virus vaccine, inactivated 04/01/12 Arnoldo rded influenza virus vaccine, inactivated 04/26/09 Arnoldo rded SARS-CoV-2 mRNA (zxkuqeb-cujs-jzxgx) vax 03/10/22 Recorded SARS-CoV-2 mRNA (peuevkv-mpax-jqmpn) vax 10/04/21 Recorded SARS-CoV-2 (COVID-19) mRNA BNT-162b2 [...] tablet, 0 Refills, Maintenance, 09/13/22 9:11:00EST, Tablet, [facility]/pharmacy #[id number], Partial fill upon patient request if the prescription is for a schedule II opioid drug., 155, cm, 07/12/22 14:10:00 ES... Start Date: 09/13/22 Status: Ordered baclofen 20 mg oral tablet 20 mg, 1, tablet, By Mouth, 3 times a day, # 270 tablet, Refills 2, Tot. Refills 2, Maintenance, 12/09/22 12:44:00 EDT, Route to Pharmacy Electronically, [facility], Partial fill upon patient request if the prescription is for a... Start Date: 12/09/22 Stop Date: 09/05/23 Status: Ordered baclofen 20 mg oral tablet 20 mg, 1, tablet, By Mouth, 3 times a day, for 90 days, # 270 tablet, Refills 2, Tot. Refills 2, Hard Stop 12/09/22 12:44:00 EDT, 03/14/22 12:44:00 EDT, Route to Pharmacy Electronically, [facility]/pharmacy#[id number], Partial fill upon patient request if [...] 01/06/23 14:02:00 EDT, 01/11/22 14:02:00 EDT, Tablet, [facility], Partial fill upon patient request [...] 01/02/22 9:03:00 EDT, Route to Pharmacy Electronically, [facility], Partial fill upon patient request [...] EDT[facility] Start Date: 01/11/22 Status: Ordered gabapentin 300 mg oral capsule 300 mg, 1, capsule, By Mouth, 3 times a day, for 90 days, # 270 capsule, Refills 2, Tot. Refills 2,Hard Stop 02/15/23 7:44:00 EDT, 05/21/22 7:44:00 EDT, Route to Pharmacy Electronically, [facility], Partial fill upon patient re... Start Date: 05/21/22 Stop Date: 02/15/23 Status: Ordered gabapentin 300 mg oral capsule 300 mg, 1, capsule, By Mouth, 3 times a day, # 270 capsule, Refills 2, Tot. Refills 2, Maintenance,02/15/23 7:44:00 EDT, Route to Pharmacy Electronically, [facility], Partial fill upon patient request if the prescription is for... Start Date: 02/15/23 Stop Date: 11/12/23 Status: Ordered Juzo Compression Hose Juzo Compression Hose, See Instructions, # 2 each, Refills 2, Tot. Refills 2, Maintenance, 20-30mmghg FF Petite (short),Fqrsq-crb-gvhz, soft knee, black silicone Stock code [id number] Part #[id number], Size III. [facility] [id number], 12/07/21 11:32:00 EDT,... Start Date: 12/07/21 Status: Ordered levothyroxine 0.088 mg oral tablet 1 tablet = 88 mcg, By Mouth, Daily, # 90 tablet, 1 Refills, Maintenance, 09/08/22 14:26:00 EST, Tablet, [facility], Partial fill upon patient [...] Replace Required Details, Route to Pharmacy Electronically, [facility], 155, cm, 07/12/22 14:10:00 EST, Height, 93.4, k... Start Date: 09/24/22 Status: Ordered Mapap 500 mg oral capsule See Instructions, TAKE 2 CAPSULES BY MOUTH 4 TIMES A DAY NEEDED FOR PAIN, # 480 capsule, 3 Refills, Maintenance, 06/04/22 16:03:00 EDT, [facility] STORE [id number], 155, cm, 05/25/22 13:44:00 EDT, Height, 93.4, kg, 11/01/21 16:52:00 EDT, Dry Weight Start Date: 06/04/22 Status: Ordered Power Virginia Lift with Rohwer split-leg sling Power Virginia Lift with Rohwer split-leg sling, See Instructions, # 1 each, [...] 0 Refills, Maintenance, 09/07/22 14:36:00 EST, Tablet, [facility]/pharmacy #[id number], Partial [...] 10/25/22 18:25:00 EDT, 07/05/22 18:25:00 EST, Tablet, [facility], Parti... Start Date: 07/05/22 Stop [...] tablet, 3 Refills, Maintenance, 02/01/22 12:42:00EDT, [facility], [facility] fill upon patient [...] Member Role: Primary Care Nurse Address: Address: [address] [place] [address] [address] [facility] [place] [address]- [place] Name: Emma Mendoza RN Position: [facility] RN Member Role: Primary Care Nurse Name: Juan Manuel LIM, Kristen Acosta Position: [facility] Primary Care Physician Member Role: PCP Address: Address: [address] [place] [id number]- Name: Jade Medina Position: [facility] RN Member Role: Primary Care Nurse Name: Komal Goodrich Position: [facility] Outreach Member Role: Lifetime Consulting Physician Name: Godfrey Cano Position: [facility] RN Member Role: Primary Care Nurse Name: Anette Miranda RN Position: [facility] Onco RN Member Role: Primary Care Nurse Care Team Related Persons Name: DIOMEDES WARNER Address: home [address] [place] [address] Name: MOO HOWELL Address: home [address] [place] [address] Name: MARLON GENTILE
--- OUTSIDE RECORDS SUMMARY | 2024-03-17 13:33 | XMS_ITS | Continuity of Care Document ---
Author Organization [facility] Address [address] [place] [address]- Care Team Providers Care Automotive Tire Testing Supervisor Name Role Phone Juan Manuel LIM, Kristen Acosta Primary Care Physic juan alberto Encounter [facility] Date(s): 07/18/22 - 08/17/22 [facility] [address] [place] [address]- Allergies, Adverse Reactions, Alerts Substance Reaction Severity Status morphine hives, SOB Active Wellbutrin rash Active contrast media (iodine-based) itching throughout body Active penicillins hive Active Reglan Active cannabis (Schedule I substance) itching/vomiting Active Other Environmental Allergy mercury-fillings Active Immunizations Given and Recorded Vaccine Date Status Refusal Reason pneumococcal 20-valent conjugate vaccine 05/30/22 Recorded [id number] 12y+ bivalent booster vax 05/12/22 Recorded influenza [...] vaccine, inactivated 04/26/09 Arnoldo rded SARS-CoV-2 mRNA (hkdtvlf-bfve-dafoh) vax 03/10/22 Recorded SARS-CoV-2 mRNA (xpohshj-twey-bhlgf) vax 10/04/21 Recorded SARS-CoV-2 (COVID-19) mRNA BNT-162b2 [...] tablet, 2 Refills, Maintenance, 02/28/22 8:12:00EDT, Tablet, [facility]/pharmacy #[id number], Partial fill upon patient request if the prescription is for a schedule II opioid drug., 155, cm, 02/23/22 8:04:00 EDT... Start Date: 02/28/22 Status: Ordered baclofen 20 mg oral tablet 20 mg, 1, tablet, By Mouth, 3 times a day, # 270 tablet, Refills 2, Tot. Refills 2, Maintenance, 12/09/22 12:44:00 EDT, Route to Pharmacy Electronically, [facility], Partial fill upon patient request if the prescription is for a... Start Date: 12/09/22 Stop Date: 09/05/23 Status: Ordered baclofen 20 mg oral tablet 20 mg, 1, tablet, By Mouth, 3 times a day, for 90 days, # 270 tablet, Refills 2, Tot. Refills 2, Hard Stop 12/09/22 12:44:00 EDT, 03/14/22 12:44:00 EDT, Route to Pharmacy Electronically, [facility]/pharmacy#[id number], Partial fill upon patient request if [...] Status: Ordered [facility] Senior Probiotic Capsule [facility] Senior Probiotic Capsule, [...] 3 Refills, Maintenance, 04/02/22 21:13:00 EDT, Gel, [facility] Start Date: 04/02/22 Status: [...] 01/11/22 13:45:00 EDT, Route to Pharmacy Electronically, [facility]... Start Date: 01/11/22 Status: Ordered gabapentin [...] Tot. Refills 2, Maintenance, 20-30mmghg FF Petite (short),Iyusa-csv-qmzc, soft knee, black silicone Stock code [id number] Part #[id number], Size III. SKU [id number], 12/07/21 11:32:00 EDT,... Start Date: 12/07/21 Status: Ordered levothyroxine 0.088 mg oral tablet 1 tablet = 88 mcg, By Mouth, Daily, # 90 tablet, 0 Refills, Maintenance, 07/26/22 16:49:00 EST, Tablet, [facility], Partial fill upon patient request if the prescription is fora schedule II opioid drug., 155, cm, 07/12/22 14:10... Start Date: 07/26/22 Status: Ordered lisinopril 5 mg oral tablet 5 mg, 1, tablet, By Mouth, Daily, # 90 tablet, Refills 3, Tot. Refills 3, Maintenance, 02/24/22 15:53:00 EDT, Route to Pharmacy Electronically, [facility]/pharmacy #[id number], Partial fill upon patient request if the prescription is for a schedule II opioid drug.... Start Date: 02/24/22 Status: Ordered Mapap 500 mg oral capsule See Instructions, TAKE 2 CAPSULES BY MOUTH 4 TIMES A DAY NEEDED FOR PAIN, # 480 capsule, 3 Refills, Maintenance, 06/04/22 16:03:00 EDT, [facility] STORE [id number], 155, cm, 05/25/22 13:44:00 EDT, Height, 93.4, kg, 11/01/21 16:52:00 EDT, Dry Weight Start Date: 06/04/22 Status: Ordered Potassium Chloride (Eqv-K-Tab) 20 mEq oral tablet, extended release 1 tablet = 20 mEq, By Mouth, Daily, for low potassium, # 10 tablet, 0 Refills, Maintenance, 03/02/22 19:14:00 EDT, [facility]/pharmacy #[id number], Partial fill upon patient request if the prescription is for a schedule II opioid drug., 155, cm, 02/23/22 8:04:00 E... Start Date: 03/02/22 Stop Date: 03/12/22 Status: Ordered Power Virginia Lift with Clayton split-leg sling Power Virginia Lift with [place] split-leg sling, See Instructions, # 1 each, [...] 3 Refills, Maintenance, 07/12/22 17:46:00 EST, [id number] fill upon patient request [...] 18:25:00 EDT, 07/05/22 18:25:00 EST, Tablet, [facility], Parti... Start Date: 07/05/22 [...] 90 capsule, 2 Refills, 02/28/22 8:13:00 EDT, [facility]/pharmacy #[id number], 155,cm, 02/23/22 8:04:00 EDT, Height, 93.4, kg, 11/01/21 16:52:00 EDT, Dry Weight Start Date: 02/28/22 Status: Ordered Xarelto 20 mg oral tablet 1 tablet = 20 mg, By Mouth, Daily at supper, # 90 tablet, 3 Refills, Maintenance, 02/01/22 12:42:00EDT, Tablet, [facility], [...] Team Personnel Name: Juliann Rich RN Position: [facility] RN Member Role: Primary Care Nurse Name: Elsa Allen NP Position: Reference Physician Member Role: Primary Care Nurse Address: Address: [address] [place] [address] [address] AM Medical [place], [place] [address] Name: Emma Mendoza RN Position: [facility] RN Member Role: Primary Care Nurse Name: Juan Manuel LIM, Kristen Acosta Position: [facility] Primary Care Physician Member Role: PCP Address: Address: [address] [place] [id number] Name: Jade Medina Position: S RN Member Role: Primary Care Nurse Name: Komal Goodrich Position: [facility] Outreach Member Role: Lifetime Consulting Physician Name: Godfrey Cano Position: [facility] RN Member Role: Primary Care Nurse Name: Anette Miranda RN Position: [facility] Onco RN Member Role: Primary Care Nurse Care Team Related Persons Name: DIOMEDES WARNER Address: [address] [place] [address] Name: MOO HOWELL Address: [address] [place] [address] Name: MARLON GENTILE
--- OUTSIDE RECORDS SUMMARY | 2024-03-17 13:33 | XMS_ITS | Continuity of Care Document ---
Author Organization [facility] Address [address], [address] [place] [address]- Care Team Providers Care Appliance Technician Name Role Phone Juan Manuel LIM, Kristen Acosta Primary Care Physic juan alberto Encounter [facility] Date(s): 03/16/23 - 03/23/23 [facility] [address] [place] [address]- Attending Physician: David LIM, Rosita Small Referring Physician: Licha Martin MD Allergies, Adverse Reactions, Alerts Substance Reaction Severity Status morphine hives, SOB Active Wellbutrin rash Active contrast media (iodine-based) itching throughout body Active penicillins hive Active Reglan Active cannabis (Schedule I substance) itching/vomiting Active Other Environmental Allergy mercury-fillings Active Immunizations Given and Recorded Vaccine Date Status Refusal Reason pneumococcal 20-valent conjugate vaccine 05/30/22 Recorded [id number] 12y+ bivalent booster vax 05/12/22 Recorded influenza [...] vaccine, inactivated 04/26/09 Arnoldo rded SARS-CoV-2 mRNA (ezhopvx-zwxz-rttnp) vax 03/10/22 Recorded SARS-CoV-2 mRNA (hyynmir-bgym-ozzwk) vax 10/04/21 Recorded SARS-CoV-2 (COVID-19) mRNA BNT-162b2 [...] 12/09/22 12:44:00 EDT, Route to Pharmacy Electronically, [facility], Partial fill upon patient request if the prescription is for a... Start Date: 12/09/22 Stop Date: 09/05/23 Status: Ordered bifidobacterium-lactobacillus oral tablet 2 tablet, By Mouth, 2 times a day, [facility] Brand please (Senior Wellness), # [...] 01/17/23 19:36:00 EDT, Route to Pharmacy Electronically, [facility], 155, cm, 10/10/22 13:40:00 EST, Height, 93.4,kg, 11/01/21 16:52:00 EDT, Dry Weight Start Date: 01/17/23 Status: Ordered gabapentin 300 mg oral capsule 300 mg, 1, capsule, By Mouth, 3 times a day, # 270 capsule, Refills 2, Tot. Refills 2, Maintenance,02/15/23 7:44:00 EDT, Route to Pharmacy Electronically, [facility], Partial fill upon patient request if the prescription is for... Start Date: 02/15/23 Stop Date: 11/12/23 Status: Ordered Juzo Compression Hose Juzo Compression Hose, See Instructions, # 2 each, Refills 2, Tot. Refills 2, Maintenance, Juzo Compression Hose 2 pairs [id number]-[id number] Soft Knee FF Petite 20-30 mmHg Silicone, Black Stock Code [id number] I I I Part #[id number] Size I I I SKU... Start Date: 03/12/23 Status: Ordered levothyroxine 0.088 mg oral tablet 1 tablet = 88 mcg, By Mouth, Daily, # 90 tablet, 3 Refills, Maintenance, 03/15/23 17:17:00 EDT, Tablet, [facility], Partial fill upon patient request if the prescription is fora schedule II opioid drug., 155, cm, 03/15/23 17:11... Start Date: 03/15/23 Status: Ordered lisinopril 5 mg oral tablet 1, tablet, By Mouth, Daily, # 90 tablet, Refills 3, Tot. Refills 3, Maintenance, 03/15/23 17:16:00 EDT, Route to Pharmacy Electronically, [facility], 155, cm, 03/15/23 17:11:00EDT, Height, [...] 03/12/23 Status: Ordered Power Virginia Lift with Lolo split-leg sling Power Virginia Lift with Lolo split-leg sling, See Instructions, # 1 each, [...] capsule, 1 Refills, 12/11/22 15:16:00 EDT, [facility]/pharmacy #[id number], 155, cm, 10/10/22 13:40:00 EST, Height, 93.4, kg, 11/01/21 16:52:00 EDT, Dry Weight Start Date: 12/11/22 Status: Ordered Xarelto 20 mg oral tablet See Instructions, TAKE 1 TABLET DAILY AT SUPPER, # 90 tablet, 3 Refills, Maintenance, 01/17/23 9:37:00 EDT, [facility], 155, cm, 10/10/22 13:40:00 [...] Most recent to oldest [Reference Range]: 1 Blood Pressure [90-138/55-84 mm Hg] 134/ 73mm Hg (03/16/23 2:42 PM) Blood pressure sites Arm, right (03/16/23 2:42 PM) Social History Social History Type Response Smoking Status Never (less than 100 in lifetime) entered on: 10/31/21 Sex Patient Care team information Care Team Personnel Name: Juliann Rich RN Position: [facility] RN Member Role: Primary Care Nurse Name: Elsa Allen NP Position: Reference Physician Member Role: Primary Care Nurse Address: Address: [address] [place] [address] [address] [place] [address]- Name: Emma Mendoza RN Position: [facility] AMB Nurse Member Role: Primary Care Nurse Name: Juan Manuel LIM, Kristen Acosta Position: [facility] Physician - Primary Care Member Role: PCP Address: Address: [address] [place] [address]- Name: Komal Goodrich Position: [facility] Outreach Member Role: Lifetime Consulting Physician Name: Godfrey Cano Position: [facility] RN Member Role: Primary Care Nurse Name: Anette Miranda RN Position: [facility] Onco RN Member Role: Primary Care Nurse Care Team Related Persons Name: DIOMEDES WARNER Address: [address] [place] [address] Name: MOO HOWELL Address: [address] [place] [address] Name: MARLON GENTILE
--- OUTSIDE RECORDS SUMMARY | 2024-03-17 13:33 | XMS_ITS | Continuity of Care Document ---
Author Organization [facility] Address [address] [place] [address]- Care Team Providers Care Mgmt Specialist Name Role Phone Juan Manuel LIM, Kristen Acosta Primary Care Physic juan alberto Encounter [facility] Date(s): 10/15/23 - 11/14/23 [facility] [address], [place] [address] Allergies, Adverse Reactions, Alerts Substance Reaction Severity Status morphine hives, SOB Active Wellbutrin rash Active Other Environmental Allergy mercury-fillings Active contrast media (iodine-based) itching throughout body Active penicillins hive Active Reglan Active cannabis (Schedule I substance) itching/vomiting Active Immunizations Given and Recorded Vaccine Date Status Refusal Reason SARS-CoV-2(COVID-19)mRNA-LNP vac([id number]) 10/19/23 Recorded SARS-CoV-2(COVID-19)mRNA-LNP vac([id number]) 07/03/23 Recorded RSV vaccine preF3, recombinant 05/19/23 [...] influenza virus vaccine, inactivated 04/26/09 Arnoldo rded [id number] 12y+ bivalent booster vax 01/23/23 Recorded [id number] 12y+ bivalent booster vax 05/12/22 Recorded pneumococcal 20-valent conjugate vaccine 05/30/22 Recorded SARS-CoV-2 mRNA (gkitixl-qitx-mtxmi) vax 03/10/22 Recorded SARS-CoV-2 mRNA (clyggkj-apnc-fqxau) vax 10/04/21 Recorded SARS-CoV-2 (COVID-19) mRNA BNT-162b2 [...] Refills, Maintenance, 08/01/23 13:53:00 EST, Tablet, [facility]/pharmacy #[id number], Partial fill upon patient request if [...] 09/05/23 12:44:00 EST, Route to Pharmacy Electronically, [facility], Partial fill upon patient req... Start Date: 09/05/23 Stop Date: 06/01/24 Status: Ordered baclofen 20 mg oral tablet 20 mg, 1, tablet, By Mouth, 3 times a day, # 270 tablet, Refills 2, Tot. Refills 2, Maintenance, 06/01/24 12:44:00 EDT, Route to Pharmacy Electronically, [facility]/pharmacy #[id number], Partial fill upon patientrequest if the prescription is for a schedule II op... Start Date: 06/01/24 Stop Date: 02/26/25 Status: Ordered baclofen 20 mg oral tablet 20 mg, 1, tablet, By Mouth, 3 times a day, for 90 days, # 270 tablet, Refills 2, Tot. Refills 2, Hard Stop 06/01/24 12:44:00 EDT, 09/05/23 12:44:00 EST, Route to Pharmacy Electronically, [facility]/pharmacy#[id number], Partial fill upon patient request if the pre... Start Date: 09/05/23 Stop Date: 06/01/24 Status: Ordered bifidobacterium-lactobacillus oral tablet 2 tablet, By Mouth, 2 times a day, [facility] Brand please ([facility]), # 360 tablet, 3 Refills, Maintenance, 08/11/21 17:02:00 EST, Tablet, [facility]/pharmacy #[id number], Partial fill upon patient request if the prescription is for a schedule II opioid drug., 2... Start Date: 08/11/21 Stop Date: 08/06/22 Status: Ordered calcium carbonate 600 mg oral tablet 1 tablet = 600 mg, By Mouth, 2 times a day, # 180 tablet, 2 Refills, Maintenance, 01/06/23 14:02:00EDT, Tablet, [facility]/pharmacy #[id number], Partial fill upon patient request if the prescription is for a schedule II opioid drug., 155, cm, 02/23/22 8:04:00 EDT... Start Date: 01/06/23 Stop Date: 10/03/23 Status: Ordered Centrum Silver Ultra Women's oral tablet 1 tablet, By Mouth, Daily, 0 Refills, Maintenance, 07/09/18 8:43:55 EST Start Date: 07/09/18 Status: Ordered [facility] SENIOR PROBIOTIC CAPSULE TAKE 2 CAPSULES BY MOUTH TWICE A DAY Start Date: 11/01/21 Status: Ordered [facility] Senior Probiotic Capsule [facility] Senior Probiotic Capsule, See Instructions, # 180 [...] mL, 5 Refills, 03/02/22 8:08:00 EDT, [facility]/pharmacy #[id number], 155, cm, 02/23/22 8:04:00 EDT, Height, [...] Soft Stop, 03/27/23 18:43:00 EDT, Tablet, [facility]/pharmacy #[id number], Partial fill upon patient request if the prescription is for a schedule II opioid... Start Date: 03/27/23 Status: Ordered fluconazole 150 mg oral tablet 1 tablet = 150 mg, By Mouth, Every week, # 4 tablet, 1 Refills, Soft Stop, 05/26/22 8:59:00 EDT, Tablet, [facility]/pharmacy #[id number], Partial fill upon patient request if [...] 07/03/23 1:01:00 EST, Route to Pharmacy Electronically, [facility], 155, cm, 05/28/23 [...] Maintenance,02/15/23 7:44:00 EDT, Route to [facility] Electronically, [facility], Partial fill upon patient request if the prescription is for... Start Date: 02/15/23 Stop Date: 11/12/23 Status: Ordered Juzo Compression Hose Juzo Compression Hose, See Instructions, # 2 each, Refills 2, Tot. Refills 2, Maintenance, Juzo Compression Hose 2 pairs cpadb-lma-ynaq Soft Knee FF Petite 20-30 mmHg Silicone, Black Stock Code [id number] I I I Part #[id number] Size I I I SKU... Start Date: 03/12/23 Status: Ordered levothyroxine 0.088 mg oral tablet 1 tablet = 88 mcg, By Mouth, Daily, # 90 tablet, 1 Refills, Maintenance, 10/01/23 17:11:00 EST, Tablet, [facility]/pharmacy #[id number], Partial fill upon patient request if the prescription is for a schedule II opioid drug., 155, cm, 05/28/23 11:02:00 EDT, Height... Start Date: 10/01/23 Status: Ordered lisinopril 5 mg oral tablet 1, tablet, By Mouth, Daily, # 90 tablet, Refills 1, Tot. Refills 1, Maintenance, 10/01/23 17:15:00 EST, Route to Pharmacy Electronically, [facility]/pharmacy #[id number], 155, cm, 05/28/23 11:02:00 EDT, Height, 93.4, kg, 11/01/21 16:52:00 EDT, Dry Weight Start Date: 10/01/23 Status: Ordered Mapap 500 mg oral capsule See Instructions, TAKE 2 CAPSULES BY MOUTH 4 TIMES A DAY NEEDED FOR PAIN, # 480 capsule, 0 Refills, Maintenance, 11/12/23 15:45:00 EDT, [facility]/pharmacy #[id number], 155, cm, 05/28/23 11:02:00 EDT, Height Start Date: 11/12/23 Status: Ordered Power [place] Lift with [place] split-leg sling Power [place] Lift with [place] split-leg sling, See Instructions, # 1 each, [...] Refills, Maintenance, 08/08/23 18:05:00 EST, Tablet, [facility]/pharmacy #[id number], Partial fill upon patient request if... [...] 11/23/23 2:50:00 EDT, 08/03/23 2:50:00 EST, Tablet, [facility]... Start Date: 08/03/23 Stop [...] Team Personnel Name: Juliann Rich RN Position: [facility] RN Member Role: Primary Care Nurse Name: Elsa Allen NP Position: [facility] Outreach Member Role: Primary Care Nurse Address: Address: [address] [place] [address] SINDY Padron [address]- Name: Emma Mendoza RN Position: [facility] Nurse Member Role: Primary Care Nurse Name: Juan Manuel LIM, Kristen Acosta Position: [facility] Physician - Primary Care Member Role: PCP Address: Address: [address] [place] [id number]- Name: Anette Soler RN Position: [facility] Onco RN Member Role: Primary Care Nurse Name: Komal Goodrich Position: [facility] Outreach Member Role: Lifetime Consulting Physician Name: Godfrey Cano Position: [facility] RN Member Role: Primary Care Nurse Care Team Related Persons Name: DIOMEDES WARNER Address: home [address] [place] [address] Name: MOO HOWELL Address: home [address] [place] [address] Name: MARLON GENTILE
--- OUTSIDE RECORDS SUMMARY | 2024-03-17 13:34 | XMS_ITS | Continuity of Care Document ---
Author Organization [facility] Address [address] [place] [address]- Care Team Providers Care Insurance Account Specialist Name Role Phone Juan Manuel LIM, Kristen Acosta Primary Care Physic juan alberto Encounter [facility] Date(s): 11/08/22 - 12/08/22 [facility] [address] [place] [id number] Allergies, Adverse Reactions, Alerts Substance Reaction Severity Status morphine hives, SOB Active penicillins hive Active Wellbutrin rash Active Reglan Active cannabis (Schedule I substance) itching/vomiting Active Other Environmental Allergy mercury-fillings Active contrast media (iodine-based) itching throughout body Active Immunizations Given and Recorded Vaccine Date Status Refusal Reason pneumococcal 20-valent conjugate vaccine 05/30/22 Recorded [id number] 12y+ bivalent booster vax 05/12/22 Recorded influenza [...] vaccine, inactivated 04/26/09 Arnoldo rded SARS-CoV-2 mRNA (qyoxtqb-zjlh-jmibs) vax 03/10/22 Recorded SARS-CoV-2 mRNA (obpqxca-thkz-afhfh) vax 10/04/21 Recorded SARS-CoV-2 (COVID-19) mRNA BNT-162b2 [...] tablet, 0 Refills, Maintenance, 10/05/22 9:35:00EST, Tablet, [facility]/pharmacy #[id number], Partial fill upon patient request if the prescription is for a schedule II opioid drug., 155, cm, 09/26/22 14:02:00 ES... Start Date: 10/05/22 Status: Ordered baclofen 20 mg oral tablet 20 mg, 1, tablet, By Mouth, 3 times a day, # 270 tablet, Refills 2, Tot. Refills 2, Maintenance, 12/09/22 12:44:00 EDT, Route to Pharmacy Electronically, [facility], Partial fill upon patient request if the prescription is for a... Start Date: 12/09/22 Stop Date: 09/05/23 Status: Ordered baclofen 20 mg oral tablet 20 mg, 1, tablet, By Mouth, 3 times a day, for 90 days, # 270 tablet, Refills 2, Tot. Refills 2, Hard Stop 12/09/22 12:44:00 EDT, 03/14/22 12:44:00 EDT, Route to Pharmacy Electronically, [facility]/pharmacy#[id number], Partial fill upon patient request if the [...] 14:02:00 EDT, 01/11/22 14:02:00 EDT, Tablet, [facility], Partial fill upon patient request [...] 9:03:00 EDT, Route to Pharmacy Electronically, [facility], Partial fill upon patient request [...] 01/11/22 13:45:00 EDT, [facility] Start Date: 01/11/22 Status: Ordered gabapentin 300 mg oral capsule 300 mg, 1, capsule, By Mouth, 3 times a day, for 90 days, # 270 capsule, Refills 2, Tot. Refills 2,Hard Stop 02/15/23 7:44:00 EDT, 05/21/22 7:44:00 EDT, Route to Pharmacy Electronically, [facility], Partial fill upon patient re... Start Date: 05/21/22 Stop Date: 02/15/23 Status: Ordered gabapentin 300 mg oral capsule 300 mg, 1, capsule, By Mouth, 3 times a day, # 270 capsule, Refills 2, Tot. Refills 2, Maintenance,02/15/23 7:44:00 EDT, Route to Pharmacy Electronically, [facility], Partial fill upon patient request if the prescription is for... Start Date: 02/15/23 Stop Date: 11/12/23 Status: Ordered Juzo Compression Hose Juzo Compression Hose, See Instructions, # 2 each, Refills 2, Tot. Refills 2, Maintenance, 20-30mmghg FF Petite (short),Nhlig-roh-idsm, soft knee, black silicone Stock code [id number] Part #[id number], Size III. [facility] [id number], 12/07/21 11:32:00 EDT,... Start Date: 12/07/21 Status: Ordered levothyroxine 0.088 mg oral tablet 1 tablet = 88 mcg, By Mouth, Daily, # 90 tablet, 1 Refills, Maintenance, 09/08/22 14:26:00 EST, Tablet, [facility], Partial fill upon patient request if the prescription is fora schedule II opioid drug., 155, cm, 07/12/22 14:10... Start Date: 09/08/22 Status: Ordered lisinopril 5 mg oral tablet 5 mg, 1, tablet, By Mouth, Daily, # 90 tablet, Refills 3, Tot. Refills 3, Maintenance, 02/24/22 15:53:00 EDT, Route to Pharmacy Electronically, [facility]/pharmacy [...] capsule, 3 Refills, Maintenance, 06/04/22 16:03:00 EDT, [id number], 155, cm, 05/25/22 13:44:00 EDT, Height, 93.4, kg, 11/01/21 16:52:00 EDT, Dry Weight Start Date: 06/04/22 Status: Ordered Power [place] Lift with [place] split-leg sling Power [place] Lift with [place] split-leg sling, See Instructions, # 1 each, [...] 5 Refills, Maintenance, 10/05/22 17:39:00 EST, Tablet, [facility]/pharmacy #[id number], Partial [...] 90 capsule, 2 Refills, 02/28/22 8:13:00 EDT, [facility]/pharmacy #[id number], 155,cm, 02/23/22 8:04:00 EDT, Height, 93.4, kg, 11/01/21 16:52:00 EDT, Dry Weight Start Date: 02/28/22 Status: Ordered Xarelto 20 mg oral tablet 1 tablet = 20 mg, By Mouth, Daily at supper, # 90 tablet, 3 Refills, Maintenance, 02/01/22 12:42:00EDT, Tablet, [facility], Partial fill upon patient [...] Role: Primary Care Nurse Address: Address: [address] [place] [address] [address] [place] [address]- Name: Emma Mendoza RN Position: [facility] RN Member Role: Primary Care Nurse Name: Kristen Zambrano MD Position: [facility] Primary Care Physician Member Role: PCP Address: Address: [address] [place] [id number]- Name: Jade Medina Position: [facility] RN Member Role: Primary Care Nurse Name: Komal Goodrich Position: S Outreach Member Role: Lifetime Consulting Physician Name: Godfrey Cano Position: [facility] RN Member Role: Primary Care Nurse Name: Anette Miranda RN Position: [facility] Onco RN Member Role: Primary Care Nurse Care Team Related Persons Name: ALANA DIOMEDES Address: [address] [place] [address] Name: MOO HOWELL Address: [address] [place] [address] Name: MARLON GENTILE
--- OUTSIDE RECORDS SUMMARY | 2024-03-17 13:34 | XMS_ITS | Continuity of Care Document ---
Author Organization [facility] Address [address] [place] [address]- Care Team Providers Care Vice President For Philanthropy Name Role Phone Rey CENTENO, Javy Lerma Primary Care Physician [phone] Encounter [facility] Date(s): 02/18/21 - 03/20/21 [facility] [address] [place] [address]- Allergies, Adverse Reactions, Alerts Substance Reaction Severity [...] 02/18/21 10:23:00 EDT, Route to Pharmacy Electronically, [facility]/pharmacy #[id number], Partial fill upon patient request [...] mL, 0 Refills, Maintenance, 02/18/21 10:22:00 EDT,Liquid, [facility]/pharmacy #[id number], Partial fill upon patient request [...]
--- OUTSIDE RECORDS SUMMARY | 2024-03-17 13:34 | XMS_ITS | Continuity of Care Document ---
Author Organization [facility] Address [address] [place] [address]- Care Team Providers Care Ammonia Refrigeration Technician Name Role Phone Juan Manuel LIM, Kristen Acosta Primary Care Physic juan alberto Encounter [facility] Date(s): 08/29/22 - 09/28/22 [facility] [address] [place] [id number] Allergies, Adverse Reactions, Alerts Substance Reaction Severity Status morphine hives, SOB Active Wellbutrin rash Active Reglan Active contrast media (iodine-based) itching throughout body Active penicillins hive Active cannabis (Schedule I substance) itching/vomiting Active Other Environmental Allergy mercury-fillings Active Immunizations Given and Recorded Vaccine Date Status Refusal Reason pneumococcal 20-valent conjugate vaccine 05/30/22 Recorded [id number] 12y+ bivalent booster vax 05/12/22 Recorded influenza [...] vaccine, inactivated 04/26/09 Arnoldo rded SARS-CoV-2 mRNA (dohmduf-gckz-acgqb) vax 03/10/22 Recorded SARS-CoV-2 mRNA (ejmsmah-fold-xnaru) vax 10/04/21 Recorded SARS-CoV-2 (COVID-19) mRNA BNT-162b2 [...] tablet, 0 Refills, Maintenance, 09/13/22 9:11:00EST, Tablet, [facility]/pharmacy #[id number], Partial fill upon patient request if the prescription is for a schedule II opioid drug., 155, cm, 07/12/22 14:10:00 ES... Start Date: 09/13/22 Status: Ordered baclofen 20 mg oral tablet 20 mg, 1, tablet, By Mouth, 3 times a day, # 270 tablet, Refills 2, Tot. Refills 2, Maintenance, 12/09/22 12:44:00 EDT, Route to Pharmacy Electronically, [facility], Partial fill upon patient request if the prescription is for a... Start Date: 12/09/22 Stop Date: 09/05/23 Status: Ordered baclofen 20 mg oral tablet 20 mg, 1, tablet, By Mouth, 3 times a day, for 90 days, # 270 tablet, Refills 2, Tot. Refills 2, Hard Stop 12/09/22 12:44:00 EDT, 03/14/22 12:44:00 EDT, Route to Pharmacy Electronically, [facility]/pharmacy#[id number], Partial fill upon patient request if the pre... Start Date: 03/14/22 Stop Date: 12/09/22 Status: Ordered bifidobacterium-lactobacillus oral tablet 2 tablet, By Mouth, 2 times a day, [facility] Brand please ([facility]), # 360 tablet, 3 Refills, Maintenance, 08/11/21 17:02:00 EST, Tablet, [facility]/pharmacy #[id number], Partial fill upon patient request if the prescription is for a schedule II opioid drug., 2... Start Date: 08/11/21 Stop Date: 08/06/22 Status: Ordered calcium carbonate 600 mg oral tablet 1 tablet = 600 mg, By Mouth, 2 times a day, # 180 tablet, 2 Refills, Maintenance, 01/06/23 14:02:00EDT, Tablet, [facility]/pharmacy #[id number], Partial fill upon patient request [...] 8:43:55 EST Start Date: 07/09/18 Status: Ordered [facility] SENIOR PROBIOTIC CAPSULE TAKE 2 CAPSULES BY MOUTH TWICE A DAY Start Date: 11/01/21 Status: Ordered [facility] Senior Probiotic Capsule [facility] Senior Probiotic Capsule, See Instructions, # [...] 3 Refills, Maintenance, 04/02/22 21:13:00 EDT, Gel, [facility]... Start Date: 04/02/22 Status: [...] 450 mL, 5 Refills, 03/02/22 8:08:00 EDT, [facility]/pharmacy #[id number], 155, cm, 02/23/22 8:04:00 EDT, [...] Refills, Soft Stop, 05/26/22 8:59:00 EDT, Tablet, [facility]/pharmacy #[id number], Partial fill upon patient request [...] 13:45:00 EDT, [facility] Start Date: 01/11/22 Status: Ordered gabapentin 300 [...] Tot. Refills 2, Maintenance, 20-30mmghg FF Petite (short),Wezbp-cnu-bvot, soft knee, black silicone Stock code [id number] Part #[id number], Size III. [facility] [id number], 12/07/21 11:32:00 EDT,... Start Date: 12/07/21 Status: Ordered levothyroxine 0.088 mg oral tablet 1 tablet = 88 mcg, By Mouth, Daily, # 90 tablet, 1 Refills, Maintenance, 09/08/22 14:26:00 EST, Tablet, [facility], Partial fill upon patient request if the prescription is fora schedule II opioid drug., 155, cm, 07/12/22 14:10... Start Date: 09/08/22 Status: Ordered lisinopril 5 mg oral tablet 5 mg, 1, tablet, By Mouth, Daily, # 90 tablet, Refills 3, Tot. Refills 3, Maintenance, 02/24/22 15:53:00 EDT, Route to Pharmacy Electronically, [facility]/pharmacy #[id number], Partial fill upon patient request if the prescription is for a schedule II opioid drug.... Start Date: 02/24/22 Status: Ordered lisinopril 5 mg oral tablet See Instructions, TAKE 1 TABLET DAILY, # 90 tablet, Refills 1, Maintenance, 09/24/22 19:24:00 EST, Instructions Replace Required Details, Route to Pharmacy Electronically, [facility], 155, cm, 07/12/22 14:10:00 EST, Height, 93.4, k... Start Date: 09/24/22 Status: Ordered Mapap 500 mg oral capsule See Instructions, TAKE 2 CAPSULES BY MOUTH 4 TIMES A DAY NEEDED FOR PAIN, # 480 capsule, 3 Refills, Maintenance, 06/04/22 16:03:00 EDT, [id number], 155, cm, 05/25/22 13:44:00 EDT, Height, 93.4, kg, 11/01/21 16:52:00 EDT, Dry Weight Start Date: 06/04/22 Status: Ordered Potassium Chloride (Eqv-K-Tab) 20 mEq oral tablet, extended release 1 tablet = 20 mEq, By Mouth, Daily, for low potassium, # 10 tablet, 0 Refills, Maintenance, 03/02/22 19:14:00 EDT, [facility]/pharmacy #[id number], Partial fill upon patient request if the prescription is for a schedule II opioid drug., 155, cm, 02/23/22 8:04:00 E... Start Date: 03/02/22 Stop Date: 03/12/22 Status: Ordered Power [place] Lift with [place] split-leg sling Power [place] Lift with [place] split-leg sling, See Instructions, # 1 each, [...] 18 tablet, 0Refills, Maintenance, 08/24/22 17:06:00 EST, [facility]/pharmacy #[id number], Partial fill upon patient request [...] 11/01/22 17:46:00 EDT, 07/12/22 17:46:00 EST, Tablet, [facility]/pharmacy #[id number], Partial fill upon pa... Start Date: 07/12/22 Stop Date: 11/01/22 Status: Ordered Provigil 200 mg oral tablet 1 tablet = 200 mg, By Mouth, 2 times a day, takes in am and lunchtime brand name only - dispense aswritten, # 56 tablet, 0 Refills, Maintenance, 09/07/22 14:36:00 EST, Tablet, [facility]/pharmacy #[id number], Partial fill upon patient request [...] 90 capsule, 2 Refills, 02/28/22 8:13:00 EDT, [facility]/pharmacy #[id number], 155,cm, 02/23/22 8:04:00 EDT, Height, 93.4, kg, 11/01/21 16:52:00 EDT, Dry Weight Start Date: 02/28/22 Status: Ordered Xarelto 20 mg oral tablet 1 tablet = 20 mg, By Mouth, Daily at supper, # 90 tablet, 3 Refills, Maintenance, 02/01/22 12:42:00EDT, Tablet, [facility], Partial [...] Team Personnel Name: Juliann Rich RN Position: [facility] RN Member Role: Primary Care Nurse Name: Elsa Allen NP Position: Reference Physician Member Role: Primary Care Nurse Address: Address: [address] [place] [address] [address] [place] [address]- Name: Emma Mendoza RN Position: [facility] RN Member Role: Primary Care Nurse Name: Juan Manuel LIM, Kristen Acosta Position: [facility] Primary Care Physician Member Role: PCP Address: Address: [address] [place] [id number] Name: Jade Medina Position: S RN Member Role: Primary Care Nurse Name: Komal Goodrich Position: [facility] Outreach Member Role: Lifetime Consulting Physician Name: Godfrey Cano Position: [facility] RN Member Role: Primary Care Nurse Name: Anette Miranda RN Position: [facility] Onco RN Member Role: Primary Care Nurse Care Team Related Persons Name: DIOMEDES WARNER Address: home [address] [place] [address] Name: MOO HOWELL Address: [address] [address] Name: MARLON GENTILE
--- OUTSIDE RECORDS SUMMARY | 2024-03-17 13:34 | XMS_ITS | Continuity of Care Document ---
Author Organization [facility] Address [address] [place] [address]- Care Team Providers Care Airway Traffic Controller Name Role Phone Juan Manuel LIM, Kristen Acosta Primary Care Physic juan alberto Encounter [facility] [place] Date(s): 05/16/23 - 06/15/23 [facility] [address] [place] [id number] Attending Physician: Admtr, Ar8 Admitting Physician: Admtr, Ar8 Referring Physician: Admtr, Ar8 Allergies, Adverse Reactions, Alerts Substance Reaction Severity Status morphine hives, SOB Active penicillins hive Active Wellbutrin rash Active contrast media (iodine-based) itching throughout body Active Reglan Active cannabis (Schedule I substance) itching/vomiting Active Other Environmental Allergy mercury-fillings Active Immunizations Given and Recorded Vaccine Date Status Refusal Reason pneumococcal 20-valent conjugate vaccine 05/30/22 Recorded [id number] 12y+ bivalent booster vax 05/12/22 Recorded influenza [...] vaccine, inactivated 04/26/09 Arnoldo rded SARS-CoV-2 mRNA ([id number]-niym-[id number]) vax 03/10/22 Recorded SARS-CoV-2 mRNA (fhhsjlv-ussl-cewok) vax 10/04/21 Recorded SARS-CoV-2 (COVID-19) mRNA BNT-162b2 [...] 1 Refills, Maintenance, 12/11/22 17:34:00 EDT, Tablet, [facility]/pharmacy #[id number], Partial fill upon patient request if the prescription is for a schedule II opioid drug., 155, cm, 10/10/22 13:40:00 E... Start Date: 12/11/22 Status: Ordered baclofen 20 mg oral tablet 20 mg, 1, tablet, By Mouth, 3 times a day, # 270 tablet, Refills 2, Tot. Refills 2, Maintenance, 12/09/22 12:44:00 EDT, Route to Pharmacy Electronically, [facility], Partial fill upon patient [...] Refills, Soft Stop, 03/27/23 18:43:00 EDT, Tablet, [facility]/pharmacy #[id number], Partial [...] 01/17/23 19:36:00 EDT, Route to Pharmacy Electronically, [facility], 155, cm, 10/10/22 13:40:00 [...] 2, Maintenance, Juzo Compression Hose 2 pairs rxmem-erd-preu Soft Knee FF Petite 20-30 mmHg Silicone, Black Stock Code [id number] I I I Part #11270 Size I I I SKU... Start Date: [...] capsule, 0 Refills, Maintenance, 03/12/23 9:16:00 EDT, [facility]/pharmacy #[id number], 155, cm, 10/10/22 13:40:00 EST, Height, 93.4, kg, 11/01/21 16:52:00 EDT, Dry Weight Start Date: 03/12/23 Status: Ordered Power Virginia Lift with [place] split-leg sling Power Virginia Lift with [place] split-leg sling, See Instructions, # 1 each, [...] 5 Refills, Maintenance, 12/11/22 17:34:00 EDT, Tablet, [facility]/pharmacy #[id number], Partial [...] Team Personnel Name: Juliann Rich RN Position: [facility] RN Member Role: Primary Care Nurse Name: Elsa Allen NP Position: Reference Physician Member Role: Primary Care Nurse Address: Address: [address] [place] [address] [address] [place] [address]- Name: Emma Mendoza RN Position: [facility] AMB Nurse Member Role: Primary Care Nurse Name: Juan Manuel LIM, Kristen Acosta Position: [facility] Physician - Primary Care Member Role: PCP Address: Address: [address] [place] [id number] Name: Komal Goodrich Position: [facility] Outreach Member Role: Lifetime Consulting Physician Name: Godfrey Cano Position: [facility] RN Member Role: Primary Care Nurse Name: Anette Miranda RN Position: [facility] Onco RN Member Role: Primary Care Nurse Care Team Related Persons Name: DIOMEDES WARNER Address: [address] [place] [address] Name: MOO HOWELL Address: home [address] [place] [address] Name: MARLON GENTILE
--- OUTSIDE RECORDS SUMMARY | 2024-03-17 13:34 | XMS_ITS | Continuity of Care Document ---
Author Organization [facility] Address [address] [place] [address]- Care Team Providers Care Paraffin Plant Operator Name Role Phone Juan Manuel LIM, Kristen Acosta Primary Care Physic juan alberto [place] [facility] [place]/30/21 - 07/30/21 [facility] [address] [place] [address]- Allergies, Adverse Reactions, Alerts Substance Reaction Severity [...] tablet, By Mouth, Daily, [facility] ([facility]), # 180 tablet, 3 Refills, Maintenance, [...] tablet, 1 Refills, Maintenance, 07/13/21 14:17:00EST, Tablet, [facility], [...] Start Date: 05/27/21 Status: Ordered Fully powered adiel lift with split leg sling type Fully powered daiel lift with split leg sling type, See Instructions, # 1 each, Refills 0, Tot. Refills 0, Maintenance, dx: Multiple sclerosis; Paraplegia, Neurogenic bladder; Morbid obesity, 07/29/21 3:07:00 EST, Supply Start Date: 07/29/21 Status: Ordered furosemide 40 mg oral tablet 40 mg, 1, tablet, By Mouth, Daily, # 90 tablet, Refills 2, Tot. Refills 2, Maintenance, 04/05/21 13:39:00 EDT, [facility], [facility] 1 Refills, Maintenance, 07/13/21 14:09:00 EST, Tablet, [facility], Partial fill upon patient request if the prescription is fora schedule II opioid drug., 153, cm, 06/27/21 7:47:... Start Date: 07/13/21 Status: Ordered lisinopril 5 mg oral tablet 5 mg, 1, tablet, By Mouth, Daily, # 90 tablet, Refills 1, Tot. Refills 1, Maintenance, 07/13/21 14:08:00 EST, [facility] Pharm[facility], [facility] [...] 1 Refills, Maintenance, 07/14/21 17:19:00 EST, Tablet, [facility], Partial fill upon patient request if t... Start Date: 07/14/21 Stop Date: 09/08/21 Status: Ordered Turmeric = 750 mg, By Mouth, 2 times a day, 0 Refills, Maintenance, 07/09/18 8:47:35 EST Start Date: 07/09/18 Status: Ordered Vitamin D3 2000 intl units oral capsule 1 capsule, By Mouth, Daily, # 90 capsule, 1 Refills, [facility] [id number], 153, cm, 04/25/21 13:34:00 EDT, Height Start [...]
--- OUTSIDE RECORDS SUMMARY | 2024-03-17 13:34 | XMS_ITS | Continuity of Care Document ---
Author Organization [facility] Address [address] [place] [address]- Care Team Providers Care Intake Nurse Name Role Phone Juan Manuel LIM, Kristen Acosta Primary Care Physic juan alberto En[place] [facility] [place] 07/20/21 - 08/19/21 [facility] [address] [place] [address]- Allergies, Adverse Reactions, Alerts Substance Reaction Severity [...] 14:09:00 EST, Route to Pharmacy Electronically, [facility], Partial fill upon patient request if the prescription is for a... Start Date: 08/02/21 Status: Ordered bifidobacterium-lactobacillus oral tablet 2 tablet, By Mouth, 2 times a day, [facility] Brand please ([facility]), # 360 tablet, 3 Refills, Maintenance, 08/11/21 17:02:00 EST, Tablet, [facility]/pharmacy #[id number], Partial fill upon [...] 14:17:00 EDT, 07/13/21 14:17:00 EST, Tablet, [facility], Partial fill upon patient request if the prescription is for a schedul... Start Date: 07/13/21 Stop Date: 01/09/22 Status: Ordered calcium carbonate 600 mg oral tablet 1 tablet = 600 mg, By Mouth, 2 times a day, # 180 tablet, 1 Refills, Maintenance, 01/09/22 14:17:00EDT, Tablet, [facility]/pharmacy #[id number], Partial fill upon [...] 07/13/21 Status: Ordered Power Virginia Lift with [place] split-leg sling Power Virginia Lift with [place] split-leg sling, See Instructions, # 1 each, Refills 0, Tot. Refills 0, Maintenance, Dx: Multiple Sclerosis induced Paraplegia Length of time needed: indefinite Purpose: Transfer to/[facility] bed to wheelchair, commode,... Start Date: 08/16/21 [...] 90 capsule, 1 Refills, 08/11/21 17:04:00 EST, [facility]/pharmacy #[id number], 153, cm, 06/27/21 [...]
--- OUTSIDE RECORDS SUMMARY | 2024-03-17 13:34 | XMS_ITS | Continuity of Care Document ---
Author Organization [facility] Address [address] [place] [address]- Care Team Providers Care Hands Hanger Name Role Phone Juan Manuel LIM, Kristen Acosta Primary Care Physic juan alberto Encounter [facility] Date(s): 05/22/22 - 06/21/22 [facility] [address] [place] [id number] Allergies, Adverse Reactions, Alerts Substance Reaction Severity Status morphine hives, SOB Active Wellbutrin rash Active Reglan Active cannabis (Schedule I substance) itching/vomiting Active Other Environmental Allergy mercury-fillings Active contrast media (iodine-based) itching throughout body Active penicillins hive Active Immunizations Given and Recorded Vaccine Date Status Refusal Reason pneumococcal 20-valent conjugate vaccine 05/30/22 Recorded [id number] 12y+ bivalent booster vax 05/12/22 Recorded influenza [...] vaccine, inactivated 04/26/09 Arnoldo rded SARS-CoV-2 mRNA ([id number]-eeqq-[id number]) vax 03/10/22 Recorded SARS-CoV-2 mRNA (qrnvllg-ouia-bjzxf) vax 10/04/21 Recorded SARS-CoV-2 (COVID-19) mRNA BNT-162b2 [...] 2 Refills, Maintenance, 02/28/22 8:12:00EDT, Tablet, [facility]/pharmacy #[id number], Partial fill upon patient request if the prescription is for a schedule II opioid drug., 155, cm, 02/23/22 8:04:00 EDT... Start Date: 02/28/22 Status: Ordered baclofen 20 mg oral tablet 20 mg, 1, tablet, By Mouth, 3 times a day, # 270 tablet, Refills 2, Tot. Refills 2, Maintenance, 12/09/22 12:44:00 EDT, Route to Pharmacy Electronically, [facility], Partial fill upon patient request if the prescription is for a... Start Date: 12/09/22 Stop Date: 09/05/23 Status: Ordered baclofen 20 mg oral tablet 20 mg, 1, tablet, By Mouth, 3 times a day, for 90 days, # 270 tablet, Refills 2, Tot. Refills 2, Hard Stop 12/09/22 12:44:00 EDT, 03/14/22 12:44:00 EDT, Route to Pharmacy Electronically, [facility]/pharmacy#[id number], Partial fill upon patient request if the pre... Start Date: 03/14/22 Stop Date: 12/09/22 Status: Ordered bifidobacterium-lactobacillus oral tablet 2 tablet, By Mouth, 2 times a day, [facility] Brand please ([facility]), # 360 tablet, 3 Refills, Maintenance, 08/11/21 17:02:00 EST, Tablet, [facility]/pharmacy #[id number], Partial fill upon patient request if the prescription is for a schedule II opioid drug., 2... Start Date: 08/11/21 Stop Date: 08/06/22 Status: Ordered calcium carbonate 600 mg oral tablet 1 tablet = 600 mg, By Mouth, 2 times a day, # 180 tablet, 2 Refills, Maintenance, 01/06/23 14:02:00EDT, Tablet, [facility]/pharmacy #[id number], Partial fill upon patient [...] 01/06/23 14:02:00 EDT, 01/11/22 14:02:00 EDT, Tablet, [facility] [...] 8:59:00 EST, 05/26/22 8:59:00 EDT, Cream, [facility]/pharmacy #[id number], Partial fill upon patient request if the prescription is for a schedule II opioid drug., 1 applicat... Start Date: 05/26/22 Stop Date: 07/25/22 Status: Ordered [facility] SENIOR PROBIOTIC CAPSULE TAKE 2 CAPSULES BY MOUTH TWICE A DAY Start Date: 11/01/21 Status: Ordered diclofenac 1% topical gel 1 application, Topically, 4 times a day, Apply 4 gram QID prn to affected pain to dropped foot - not to exceed 16 grams/day/single joint of lower extremities, # 100 Gm, 3 Refills, Maintenance, 04/02/22 21:13:00 EDT, Gel, [facility]... Start Date: 04/02/22 Status: [...] mL, 5 Refills, 03/02/22 8:08:00 EDT, [facility]/pharmacy #[id number], 155, cm, 02/23/22 8:04:00 [...] Soft Stop, 05/26/22 8:59:00 EDT, Tablet, [facility]/pharmacy #[id number], Partial fill upon patient request if the prescription is for a schedule IIopioid drug., 155, cm, 05/25/22 13:44:00 EDT, Hebecca... Start Date: 05/26/22 Status: Ordered fosfomycin 3 [...] 01/02/22 9:03:00 EDT, Route to Pharmacy Electronically, [facility] [...] Route to Pharmacy Electronically, [facility]... Start Date: 01/11/22 Status: Ordered gabapentin 300 mg oral capsule 300 mg, 1, capsule, By Mouth, 3 times a day, # 270 capsule, Refills 2, Tot. Refills 2, Maintenance,05/21/22 7:44:00 EDT, Route to Pharmacy Electronically, [facility], Partial fill upon patient request if the prescription is for... Start Date: 05/21/22 Stop Date: 02/15/23 Status: Ordered Juzo Compression Hose Juzo Compression Hose, See Instructions, # 2 each, Refills 2, Tot. Refills 2, Maintenance, 20-30mmghg FF Petite (short),Eevjr-ysn-kzby, soft knee, black silicone Stock code [id number] Part #[id number], Size III. [facility] [id number], 12/07/21 11:32:00 EDT,... Start Date: 12/07/21 Status: Ordered levothyroxine 0.088 mg oral tablet 1 tablet = 88 mcg, By Mouth, Daily, # 90 tablet, 3 Refills, Maintenance, 03/31/22 13:45:00 EDT, Tablet, [facility], Partial fill upon patient request if the prescription is fora schedule II opioid drug., 155, cm, 03/14/22 11:11... Start Date: 03/31/22 Status: Ordered lisinopril 5 mg oral tablet 5 mg, 1, tablet, By Mouth, Daily, # 90 tablet, Refills 3, Tot. Refills 3, Maintenance, 02/24/22 15:53:00 EDT, Route to Pharmacy Electronically, [facility]/pharmacy #[id number], Partial fill upon patient request if the prescription is for a schedule II opioid drug.... Start Date: 02/24/22 Status: Ordered Mapap 500 mg oral capsule See Instructions, TAKE 2 CAPSULES BY MOUTH 4 TIMES A DAY NEEDED FOR PAIN, # 480 capsule, 3 Refills, Maintenance, 06/04/22 16:03:00 EDT, [id number], 155, cm, 05/25/22 13:44:00 EDT, Height, 93.4, kg, 11/01/21 16:52:00 EDT, Dry Weight Start Date: 06/04/22 Status: Ordered Potassium Chloride (Eqv-K-Tab) 20 mEq oral tablet, extended release 1 tablet = 20 mEq, By Mouth, Daily, for low potassium, # 10 tablet, 0 Refills, Maintenance, 03/02/22 19:14:00 EDT, [facility]/pharmacy #[id number], Partial fill upon patient request if the prescription is for a schedule II opioid drug., 155, cm, 02/23/22 8:04:00 E... Start Date: 03/02/22 Stop Date: 03/12/22 Status: Ordered Power [place] Lift with [place] [...] Refills, Maintenance, 02/28/22 8:12:00 EDT, Tablet, [facility]/pharmacy #[id number], Partial fill upon patient [...] capsule, 2 Refills, 02/28/22 8:13:00 EDT, [facility]/pharmacy #[id number], 155,cm, 02/23/22 8:04:00 EDT, Height, 93.4, kg, 11/01/21 16:52:00 EDT, Dry Weight Start Date: 02/28/22 Status: Ordered Xarelto 20 mg oral tablet 1 tablet = 20 mg, By Mouth, Daily at supper, # 90 tablet, 3 Refills, Maintenance, 02/01/22 12:42:00EDT, Tablet, [facility], Partial fill upon [...] Team Personnel Name: Juliann Rich RN Position: [facility] RN Member Role: Primary Care Nurse Name: Alejandro CENTENO, Elsa Peterson Position: Reference Physician Member Role: Primary Care Nurse Address: Address: [address] [place] [address] [address] [place] [address]- Name: Emma Mendoza RN Position: [facility] RN Member Role: Primary Care Nurse Name: Juan Manuel LIM, Kristen Acosta Position: [facility] Primary Care Physician Member Role: PCP Address: Address: [address] [place] [address]- Name: aJde Medina Position: S RN Member Role: Primary Care Nurse Name: Komal Goodrich Position: S Outreach Member Role: Lifetime Consulting Physician Name: Godfrey Cano Position: [facility] RN Member Role: Primary Care Nurse Name: Anette Miranda RN Position: [facility] Onco RN Member Role: Primary Care Nurse Care Team Related Persons Name: DIOMEDES WARNER Address: [address] [place] [address] Name: MOO HOWELL Address: [address] [place] [address] Name: MARLON GENTILE
--- OUTSIDE RECORDS SUMMARY | 2024-03-17 13:34 | XMS_ITS | Continuity of Care Document ---
Author Organization [facility] Address [address] [place] [address]- Care Team Providers Care Circular Distributor Name Role Phone Juan Manuel LIM, Kristen Acosta Primary Care Physic juan alberto [facility] Date(s): 12/12/23 - 01/11/24 [facility] [address] [place] [address]- Allergies, Adverse Reactions, Alerts Substance Reaction Severity Status morphine hives, SOB Active penicillins hive Active Wellbutrin rash Active Reglan Active cannabis (Schedule I substance) itching/vomiting Active Other Environmental Allergy mercury-fillings Active contrast media (iodine-based) itching throughout body Active Immunizations Given and Recorded Vaccine Date Status Refusal Reason SARS-CoV-2(COVID-19)mRNA-LNP vac(dib244) 10/19/23 Recorded SARS-CoV-2(COVID-19)mRNA-LNP vac(dii801) 07/03/23 Recorded RSV vaccine preF3, recombinant 05/19/23 Recorded influenza virus vaccine, inactivated 05/19/23 Arnoldo rded influenza virus vaccine, inactivated 03/29/22 Arnoldo rded influenza virus vaccine, inactivated 04/10/21 Arnoldo rded influenza virus vaccine, inactivated 04/03/20 Arnoldo rded influenza virus vaccine, inactivated 05/13/19 Aronldo rded influenza virus vaccine, inactivated 04/16/18 Arnoldo rded influenza virus vaccine, inactivated 05/07/17 Arnoldo rded influenza virus vaccine, inactivated 04/19/16 Arnoldo rded influenza virus vaccine, inactivated 04/12/15 Arnoldo rded influenza virus vaccine, inactivated 04/01/13 Arnoldo rded influenza virus vaccine, inactivated 04/01/12 Arnoldo rded influenza virus vaccine, inactivated 04/26/09 Arnoldo rded [id number] 12y+ bivalent booster vax 01/23/23 Recorded [id number] 12y+ bivalent booster vax 05/12/22 Recorded pneumococcal 20-valent conjugate vaccine 05/30/22 Recorded SARS-CoV-2 mRNA (oxymjfl-ulld-kgzmg) vax 03/10/22 Recorded SARS-CoV-2 mRNA (umktwla-waea-clsez) vax 10/04/21 Recorded SARS-CoV-2 (COVID-19) mRNA BNT-162b2 [...] 1 Refills, Maintenance, 08/01/23 13:53:00 EST, Tablet, [facility]/pharmacy #[id number], Partial fill upon patient request [...] 09/05/23 12:44:00 EST, Route to Pharmacy Electronically, [facility], Partial fill upon patient req... Start Date: 09/05/23 Stop Date: 06/01/24 Status: Ordered baclofen 20 mg oral tablet 20 mg, 1, tablet, By Mouth, 3 times a day, # 270 tablet, Refills 1, Tot. Refills 1, Maintenance, 12/28/23 10:31:00 EDT, Route to Pharmacy Electronically, [facility], Partial fill upon patient request if the prescription is for a... Start Date: 12/28/23 Stop Date: 06/25/24 Status: Ordered baclofen 20 mg oral tablet 20 mg, 1, tablet, By Mouth, 3 times a day, for 90 days, # 270 tablet, Refills 2, Tot. Refills 2, Hard Stop 06/01/24 12:44:00 EDT, 09/05/23 12:44:00 EST, [id number] fill upon patient request if the pre... Start Date: 09/05/23 Stop Date: 06/01/24 Status: Ordered bifidobacterium-lactobacillus oral tablet 2 tablet, By Mouth, 2 times a day, [facility] Brand please (Senior Wellness), # 360 tablet, 3 Refills, Maintenance, 08/11/21 17:02:00 EST, [id number] Partial fill upon patient request if the prescription is for a schedule II opioid drug., 2... Start Date: 08/11/21 Stop Date: 08/06/22 Status: Ordered calcium carbonate 600 mg oral tablet 1 tablet = 600 mg, By Mouth, 2 times a day, # 180 tablet, 2 Refills, Maintenance, 01/06/23 14:02:00EDT, Tablet, [facility]/pharmacy #[id number], Partial fill upon patient request if the prescription is for a schedule II opioid drug., 155, cm, 02/23/22 8:04:00 EDT... Start Date: 01/06/23 Stop Date: 10/03/23 Status: Ordered Centrum Silver Ultra Women's oral tablet 1 tablet, By Mouth, Daily, 0 Refills, Maintenance, 07/09/18 8:43:55 EST Start Date: 07/09/18 Status: Ordered [facility] SENIOR PROBIOTIC CAPSULE TAKE 2 CAPSULES BY MOUTH TWICE A DAY Start Date: 11/01/21 Status: Ordered [facility] Senior Probiotic Capsule [facility] Senior Probiotic Capsule, See Instructions, # [...] mL, 5 Refills, 03/02/22 8:08:00 EDT, [facility]/pharmacy #[id number], 155, cm, 02/23/22 8:04:00 EDT, [...] Refills, Soft Stop, 03/27/23 18:43:00 EDT, Tablet, [facility]/pharmacy #[id number], Partial fill upon patient request if the prescription is for a schedule II opioid... Start Date: 03/27/23 Status: Ordered fluconazole 150 mg oral tablet 1 tablet = 150 mg, By Mouth, Every week, # 4 tablet, 1 Refills, Soft Stop, 05/26/22 8:59:00 EDT, Tablet, [facility]/pharmacy #[id number], Partial fill upon patient request [...] 07/03/23 1:01:00 EST, Route to Pharmacy Electronically, [facility], 155, cm, 05/28/23 11:02:00 EDT, Height, 93.4, kg, 11/01/21 16:52:00 EDT, Dry Weight Start Date: 07/03/23 Status: Ordered gabapentin 300 mg oral capsule 300 mg, 1, capsule, By Mouth, 3 times a day, # 270 capsule, Refills 1, Tot. Refills 1, Maintenance,12/28/23 10:30:00 EDT, Route to Pharmacy Electronically, [facility], Partialfill upon patient [...] 2, Maintenance, Juzo Compression Hose 2 pairs dofva-ymp-ymda Soft Knee FF Petite 20-30 mmHg Silicone, Black Stock Code [id number] I I I Part #[id number] Size I I I SKU... Start Date: 03/12/23 Status: Ordered levothyroxine 0.088 mg oral tablet 1 tablet = 88 mcg, By Mouth, Daily, # 90 tablet, 1 Refills, Maintenance, 10/01/23 17:11:00 EST, Tablet, [facility]/pharmacy #[id number], Partial fill upon patient request if the prescription is for a schedule II opioid drug., 155, cm, 05/28/23 11:02:00 EDT, Height... Start Date: 10/01/23 Status: Ordered lisinopril 5 mg oral tablet 1, tablet, By Mouth, Daily, # 90 tablet, Refills 1, Tot. Refills 1, Maintenance, 10/01/23 17:15:00 EST, Route to Pharmacy Electronically, [facility]/pharmacy #[id number], 155, cm, 05/28/23 11:02:00 EDT, Height, 93.4, kg, 11/01/21 16:52:00 EDT, Dry Weight Start Date: 10/01/23 Status: Ordered Mapap 500 mg oral capsule See Instructions, TAKE 2 CAPSULES BY MOUTH 4 TIMES A DAY NEEDED FOR PAIN, # 480 capsule, 0 Refills, Maintenance, 11/12/23 15:45:00 EDT, [facility]/pharmacy #[id number], 155, cm, 05/28/23 11:02:00 EDT, Height Start Date: 11/12/23 Status: Ordered Power [place] Lift with [place] split-leg sling Power [place] Lift with [place] split-leg sling, See Instructions, # 1 each, [...] 0 Refills, Maintenance, 08/08/23 18:05:00 EST, Tablet, [facility]/pharmacy #[id number], Partial fill upon patient request if... Start Date: 08/08/23 Stop Date: 09/05/23 Status: Ordered Provigil 200 mg oral tablet 1 tablet = 200 mg, By Mouth, 2 times a day, for 28 days, takes in am and lunchtime brand name only - dispense as written Brand name only, # 56 tablet, 3 Refills, Hard Stop 03/14/24 2:50:00 EDT, 11/23/23 2:50:00 EDT, Tablet, [facility]/pharmacy #[id number], Partia... Start Date: 11/23/23 Stop Date: [...] 90 capsule, 1 Refills, 12/11/22 15:16:00 EDT, [facility]/pharmacy #[id number], 155, cm, 10/10/22 13:40:00 EST, [...] Team Personnel Name: Juliann Rich RN Position: [facility] RN Member Role: Primary Care Nurse Name: Elsa Allen NP Position: [facility] Outreach Member Role: Primary Care Nurse Address: Address: [address] [place] [address]- Name: Emma Mendoza RN Position: [facility] AMB Nurse Member Role: Primary Care Nurse Name: Kristen Zambrano MD Position: [facility] Physician - Primary Care Member Role: PCP Address: Address: [address] [place] [address]- Name: Anette Soler RN Position: [facility] Onco RN Member Role: Primary Care Nurse Name: Komal Goodrich Position: [facility] Outreach Member Role: Lifetime Consulting Physician Name: Godfrey Cano Position: [facility] RN Member Role: Primary Care Nurse Care Team Related Persons Name: DIOMEDES WARNER Address: home [address] [place] [address] Name: MOO HOWELL Address: [address] [address] Name: MARLON GENTILE
--- OUTSIDE RECORDS SUMMARY | 2024-03-17 13:34 | XMS_ITS | Continuity of Care Document ---
Author Organization [facility] Address [address] [place] [address]- Care Team Providers Care Planting Material Remover Name Role Phone Juan Manuel LIM, Kristen Acosta Primary Care Physic juan alberto Encounter [facility] Date(s): 07/12/22 - 08/11/22 [facility] [address] [place] [address]- Allergies, Adverse Reactions, Alerts Substance Reaction Severity Status morphine hives, SOB Active Wellbutrin rash Active contrast media (iodine-based) itching throughout body Active penicillins hive Active Reglan Active cannabis (Schedule I substance) itching/vomiting Active Other Environmental Allergy mercury-fillings Active Immunizations Given and Recorded Vaccine Date Status Refusal Reason pneumococcal 20-valent conjugate vaccine 05/30/22 Recorded QWLB-SnB-[id number] 12y+ bivalent booster vax 05/12/22 Recorded influenza [...] vaccine, inactivated 04/26/09 Arnoldo rded SARS-CoV-2 mRNA (ewvttkb-yuja-vyxhf) vax 03/10/22 Recorded SARS-CoV-2 mRNA (olyxgeb-ezug-bzdhv) vax 10/04/21 Recorded SARS-CoV-2 (COVID-19) mRNA BNT-162b2 [...] 12:44:00 EDT, Route to Pharmacy Electronically, [facility], Partial fill upon [...] Route to Pharmacy Electronically, [facility]/pharmacy#[id number], Partial fill upon patient [...] 01/06/23 14:02:00 EDT, 01/11/22 14:02:00 EDT, Tablet, [facility], Partial fill upon patient request if [...] [facility] Senior Probiotic Capsule [facility] Senior Probiotic [...] 01/02/22 9:03:00 EDT, Route to Pharmacy Electronically, [facility], Partial fill upon patient request if [...] 01/11/22 13:45:00 EDT, Route to Pharmacy Electronically, [facility] ADIS... Start Date: 01/11/22 Status: Ordered gabapentin 300 mg oral capsule 300 mg, 1, capsule, By Mouth, 3 times a day, # 270 capsule, Refills 2, Tot. Refills 2, Maintenance,05/21/22 7:44:00 EDT, Route to Pharmacy Electronically, [facility], Partial fill upon patient request if the prescription is for... Start Date: 05/21/22 Stop Date: 02/15/23 Status: Ordered Juzo Compression Hose Juzo Compression Hose, See Instructions, # 2 each, Refills 2, Tot. Refills 2, Maintenance, 20-30mmghg FF Petite (short),Imyfu-ebm-xsvo, soft knee, black silicone Stock code [id number] Part #[id number], Size III. SKU [id number], 12/07/21 11:32:00 EDT,... Start Date: 12/07/21 Status: Ordered levothyroxine 0.088 mg oral tablet 1 tablet = 88 mcg, By Mouth, Daily, # 90 tablet, 0 Refills, Maintenance, 07/26/22 16:49:00 EST, Tablet, [facility] [employer] [facility], Partial fill upon [...] 16:03:00 EDT, [facility] STORE [id number], 155, cm, 05/25/22 13:44:00 EDT, Height, 93.4, [...] 03/12/22 Status: Ordered Power [place] Lift with [place] split-leg sling Power [place] Lift with [place] split-leg sling, See Instructions, # 1 each, [...] 3 Refills, Maintenance, 07/12/22 17:46:00 EST, [id number] [...] 10/25/22 18:25:00 EDT, 07/05/22 18:25:00 EST, Tablet, [facility], Parti... Start Date: 07/05/22 Stop Date: [...] tablet, 3 Refills, Maintenance, 02/01/22 12:42:00EDT, Tablet, [facility], Partial fill upon patient request if [...] Team Personnel Name: Juliann Rich RN Position: [facility] RN Member Role: Primary Care Nurse Name: Elsa Allen NP Position: Reference Physician Member Role: Primary Care Nurse Address: Address: [address] [place] [address] [address] [place], [place] [address] Name: Emma Mendoza RN Position: [facility] RN Member Role: Primary Care Nurse Name: Juan Manuel LIM, Kristen Acosta Position: [facility] Primary Care Physician Member Role: PCP Address: Address: [address] [place] [id number] Name: Jade Medina Position: S RN Member Role: Primary Care Nurse Name: Komal Goodrich Position: [facility] Outreach Member Role: Lifetime Consulting Physician Name: Godfrey Cano Position: [facility] RN Member Role: Primary Care Nurse Name: Anette Miranda RN Position: [facility] Onco RN Member Role: Primary Care Nurse Care Team Related Persons Name: DIOMEDES WARNER Address: home [address] [place] [address] Name: MOO HOWELL Address: home [address] [place] [address] Name: MARLON GENTILE
--- OUTSIDE RECORDS SUMMARY | 2024-03-17 13:34 | XMS_ITS | Continuity of Care Document ---
Author Organization [facility] Address [address] [place] [address]- Care Team Providers Care Employment Advisor Name Role Phone Juan Manuel LIM, Kristen Acosta Primary Care Physic juan alberto Encounter [facility] Date(s): 07/29/21 - 08/28/21 [facility] [address] [place] [address]- Allergies, Adverse Reactions, Alerts Substance Reaction Severity [...] 04/19/22 17:46:00 EDT, 08/22/21 17:46:00 EST, Capsule, [facility]/pharmacy #[id number], Partial fill upon patient request if the prescription is for a schedul... Start Date: 08/22/21 Stop Date: 04/19/22 Status: Ordered ascorbic acid 1000 mg oral tablet 1 tablet = 1,000 mg, By Mouth, 2 times a day, # 90 tablet, 1 Refills, Maintenance, 08/11/21 17:03:00 EST, Tablet, [facility]/pharmacy #[id number], Partial fill upon patient request if the prescription is for a schedule II opioid drug., 153, cm, 06/27/21 7:47:00 ES... Start Date: 08/11/21 Status: Ordered baclofen 20 mg oral tablet 20 mg, 1, tablet, By Mouth, 4 times a day, # 360 tablet, Refills 1, Tot. Refills 1, Maintenance, 08/02/21 14:09:00 EST, Route to Pharmacy Electronically, [facility], Partial fill upon patient request if the prescription is for a... Start Date: 08/02/21 Status: Ordered bifidobacterium-lactobacillus oral tablet 2 tablet, By Mouth, 2 times a day, [facility] Brand please ([facility] Wellness), # 360 tablet, 3 Refills, Maintenance, 08/11/21 17:02:00 EST, Tablet, [facility]/pharmacy #[id number], Partial fill upon patient [...] 01/09/22 14:17:00 EDT, 07/13/21 14:17:00 EST, Tablet, [facility], Partial fill upon patient request if the prescription is for a schedul... Start Date: 07/13/21 Stop Date: 01/09/22 Status: Ordered calcium carbonate 600 mg oral tablet 1 tablet = 600 mg, By Mouth, 2 times a day, # 180 tablet, 1 Refills, Maintenance, 01/09/22 14:17:00EDT, Tablet, [facility]/pharmacy #[id number], Partial fill upon patient [...] 07/13/21 Status: Ordered Power [place] Lift with [place] split-leg sling Power [place] Lift with [place] split-leg sling, See Instructions, # 1 each, [...] 1 Refills, Maintenance, 07/14/21 17:19:00 EST, Tablet, [facility], Partial fill upon patient request if t... Start Date: 07/14/21 Stop Date: 09/08/21 Status: Ordered Turmeric = 750 mg, By Mouth, 2 times a day, 0 Refills, Maintenance, 07/09/18 8:47:35 EST Start Date: 07/09/18 Status: Ordered Vitamin D3 2000 intl units oral capsule 1 capsule, By Mouth, Daily, # 90 capsule, 1 Refills, 08/11/21 17:04:00 EST, [facility]/pharmacy #[id number], 153, cm, 06/27/21 7:47:00 [...]
--- OUTSIDE RECORDS SUMMARY | 2024-03-17 13:34 | XMS_ITS | Continuity of Care Document ---
Author Organization [facility] Address [address] [place] [address], [address] [place] [address]- Care Team Providers Care Rivet Spinner Name Role Phone Juan Manuel LIM, Kristen Acosta Primary Care Physic juan alberto Encounter [facility] Date(s): 08/22/22 - 09/21/22 [facility] [address] [place] [address], [address] [place] [address]- Allergies, Adverse Reactions, Alerts Substance Reaction Severity Status morphine hives, SOB Active penicillins hive Active Wellbutrin rash Active Reglan Active cannabis (Schedule I substance) itching/vomiting Active Other Environmental Allergy mercury-fillings Active contrast media (iodine-based) itching throughout body Active Immunizations Given and Recorded Vaccine Date Status Refusal Reason pneumococcal 20-valent conjugate vaccine 05/30/22 Recorded [id number]-[id number] 12y+ bivalent booster vax 05/12/22 Recorded influenza [...] vaccine, inactivated 04/26/09 Arnoldo rded SARS-CoV-2 mRNA (hjjkcis-nhvy-inbrd) vax 03/10/22 Recorded SARS-CoV-2 mRNA (iufxzcu-lzob-qighl) vax 10/04/21 Recorded SARS-CoV-2 (COVID-19) mRNA BNT-162b2 [...] tablet, 0 Refills, Maintenance, 09/13/22 9:11:00EST, Tablet, [facility]/pharmacy #[id number], Partial fill upon patient request if the prescription is for a schedule II opioid drug., 155, cm, 07/12/22 14:10:00 ES... Start Date: 09/13/22 Status: Ordered baclofen 20 mg oral tablet 20 mg, 1, tablet, By Mouth, 3 times a day, # 270 tablet, Refills 2, Tot. Refills 2, Maintenance, 12/09/22 12:44:00 EDT, Route to Pharmacy Electronically, [facility], Partial fill upon patient request if the prescription is for a... Start Date: 12/09/22 Stop Date: 09/05/23 Status: Ordered baclofen 20 mg oral tablet 20 mg, 1, tablet, By Mouth, 3 times a day, for 90 days, # 270 tablet, Refills 2, Tot. Refills 2, Hard Stop 12/09/22 12:44:00 EDT, 03/14/22 12:44:00 EDT, [id number] Partial fill upon patient request if the pre... Start Date: 03/14/22 Stop Date: 12/09/22 Status: Ordered bifidobacterium-lactobacillus oral tablet 2 tablet, By Mouth, 2 times a day, [facility] Brand please ([facility]), # 360 tablet, 3 Refills, Maintenance, 08/11/21 17:02:00 EST, Tablet, [facility]/pharmacy #[id number], Partial fill upon patient request if the prescription is for a schedule II opioid drug., 2... Start Date: 08/11/21 Stop Date: 08/06/22 Status: Ordered calcium carbonate 600 mg oral tablet 1 tablet = 600 mg, By Mouth, 2 times a day, # 180 tablet, 2 Refills, Maintenance, 01/06/23 14:02:00EDT, Tablet, [facility]/pharmacy #[id number], Partial fill upon patient [...] 14:02:00 EDT, Tablet, [facility], Partial fill upon patient request if the prescription is for a schedul... Start Date: 01/11/22 Stop Date: 01/06/23 Status: Ordered Centrum Silver Ultra Women's oral tablet 1 tablet, By Mouth, Daily, 0 Refills, Maintenance, 07/09/18 8:43:55 EST Start Date: 07/09/18 Status: Ordered [facility] SENIOR PROBIOTIC CAPSULE TAKE 2 CAPSULES BY MOUTH TWICE A DAY Start Date: 11/01/21 Status: Ordered [facility] Senior Probiotic Capsule [facility] Senior Probiotic Capsule, See Instructions, [...] 3 Refills, Maintenance, 04/02/22 21:13:00 EDT, Gel, [facility] Start Date: 04/02/22 Status: [...] mL, 5 Refills, 03/02/22 8:08:00 EDT, [facility]/pharmacy #[id number], 155, cm, 02/23/22 8:04:00 [...] Soft Stop, 05/26/22 8:59:00 EDT, Tablet, [facility]/pharmacy #[id number], Partial fill upon patient [...] to Pharmacy Electronically, [facility], Partial fill upon patient request [...] 01/11/22 13:45:00 EDT, [facility] Start Date: 01/11/22 Status: Ordered gabapentin 300 mg oral capsule 300 mg, 1, capsule, By Mouth, 3 times a day, for 90 days, # 270 capsule, Refills 2, Tot. Refills 2,Hard Stop 02/15/23 7:44:00 EDT, 05/21/22 7:44:00 EDT, Route to Pharmacy Electronically, [facility], Partial fill upon patient re... Start Date: 05/21/22 Stop Date: 02/15/23 Status: Ordered gabapentin 300 mg oral capsule 300 mg, 1, capsule, By Mouth, 3 times a day, # 270 capsule, Refills 2, Tot. Refills 2, Maintenance,02/15/23 7:44:00 EDT, Route to Pharmacy Electronically, [facility], Partial fill upon patient request if the prescription is for... Start Date: 02/15/23 Stop Date: 11/12/23 Status: Ordered Juzo Compression Hose Juzo Compression Hose, See Instructions, # 2 each, Refills 2, Tot. Refills 2, Maintenance, 20-30mmghg FF Petite (short),Kruyp-xrr-cqqa, soft knee, black silicone Stock code [id number] Part #[id number], Size III. [facility] [id number], 12/07/21 11:32:00 EDT,... Start Date: 12/07/21 Status: Ordered levothyroxine 0.088 mg oral tablet 1 tablet = 88 mcg, By Mouth, Daily, # 90 tablet, 1 Refills, Maintenance, 09/08/22 14:26:00 EST, Tablet, [facility], Partial fill upon patient request if the prescription is fora schedule II opioid drug., 155, cm, 07/12/22 14:10... Start Date: 09/08/22 Status: Ordered lisinopril 5 mg oral tablet 5 mg, 1, tablet, By Mouth, Daily, # 90 tablet, Refills 3, Tot. Refills 3, Maintenance, 02/24/22 15:53:00 EDT, Route to Pharmacy Electronically, [facility]/pharmacy #[id number], Partial fill upon patient request if the prescription is for a schedule II opioid drug.... Start Date: 02/24/22 Status: Ordered Mapap 500 mg oral capsule See Instructions, TAKE 2 CAPSULES BY MOUTH 4 TIMES A DAY NEEDED FOR PAIN, # 480 capsule, 3 Refills, Maintenance, 06/04/22 16:03:00 EDT, [facility] STORE [id number], 155, cm, 05/25/22 13:44:00 EDT, Height, 93.4, kg, 11/01/21 16:52:00 EDT, Dry Weight Start Date: 06/04/22 Status: Ordered Potassium Chloride (Eqv-K-Tab) 20 mEq oral tablet, extended release 1 tablet = 20 mEq, By Mouth, Daily, for low potassium, # 10 tablet, 0 Refills, Maintenance, 03/02/22 19:14:00 EDT, [facility]/pharmacy #[id number], Partial fill upon patient request if the prescription is for a schedule II opioid drug., 155, cm, 02/23/22 8:04:00 E... Start Date: 03/02/22 Stop Date: 03/12/22 Status: Ordered Power [place] Lift with [place] split-leg sling Power [place] Lift with [place] split-leg sling, See Instructions, # 1 each, [...] 18 tablet, 0Refills, Maintenance, 08/24/22 17:06:00 EST, [facility]/pharmacy #[id number], Partial fill upon patient [...] 11/01/22 17:46:00 EDT, 07/12/22 17:46:00 EST, Tablet, [facility]/pharmacy #[id number], Partial fill upon pa... Start Date: 07/12/22 Stop Date: 11/01/22 Status: Ordered Provigil 200 mg oral tablet 1 tablet = 200 mg, By Mouth, 2 times a day, takes in am and lunchtime brand name only - dispense aswritten, # 56 tablet, 0 Refills, Maintenance, 09/07/22 14:36:00 EST, Tablet, [facility]/pharmacy #[id number], Partial fill upon patient [...] 18:25:00 EST, Tablet, [facility], Parti... Start Date: 07/05/22 Stop [...] capsule, 2 Refills, 02/28/22 8:13:00 EDT, [facility]/pharmacy #[id number], 155,cm, 02/23/22 8:04:00 EDT, Height, 93.4, kg, 11/01/21 16:52:00 EDT, Dry Weight Start Date: 02/28/22 Status: Ordered Xarelto 20 mg oral tablet 1 tablet = 20 mg, By Mouth, Daily at supper, # 90 tablet, 3 Refills, Maintenance, 02/01/22 12:42:00EDT, Tablet, [facility], Partial fill upon patient request [...] Team Personnel Name: Juliann Rich RN Position: [facility] RN Member Role: Primary Care Nurse Name: Elsa Aleln NP Position: Reference Physician Member Role: Primary Care Nurse Address: Address: [address] [place] [address] [address] [place] [address]- Name: Emma Mendoza RN Position: [facility] RN Member Role: Primary Care Nurse Name: Kristen Zambrano MD Position: [facility] Primary Care Physician Member Role: PCP Address: Address: [address] [address]- Name: Jade Medina Position: S RN Member Role: Primary Care Nurse Name: Komal Goodrich Position: [facility] Outreach Member Role: Lifetime Consulting Physician Name: Godfrey Cano Position: [facility] RN Member Role: Primary Care Nurse Name: Anette Miranda RN Position: [facility] Onco RN Member Role: Primary Care Nurse Care Team Related Persons Name: DIOMEDES WARNER Address: home [address] [place] [address] Name: MOO HOWELL Address: home [address] [place] [address] Name: MARLON GENTILE
--- OUTSIDE RECORDS SUMMARY | 2024-03-17 13:34 | XMS_ITS | Continuity of Care Document ---
Author Organization [facility] ter Address [address] [place] [address]- Care Team Providers Care Hot Packer Name Role Phone Juan Manuel LIM, Kristen Acosta Primary Care Physic juan alberto Encounter [facility] Date(s): 10/25/23 - 11/01/[address] [address] Attending Physician: Blake Dasilva MD Allergies, Adverse Reactions, Alerts Substance Reaction Severity Status morphine hives, SOB Active Wellbutrin rash Active contrast media (iodine-based) itching throughout body Active penicillins hive Active Reglan Active cannabis (Schedule I substance) itching/vomiting Active Other Environmental Allergy mercury-fillings Active Immunizations Given and Recorded Vaccine Date Status Refusal Reason SARS-CoV-2(COVID-19)mRNA-LNP vac(mid506) 10/19/23 Recorded SARS-CoV-2(COVID-19)mRNA-LNP vac(wmd910) 07/03/23 Recorded RSV vaccine preF3, recombinant 05/19/23 [...] influenza virus vaccine, inactivated 04/26/09 Arnoldo rded CBKX-MdZ-9bTLX 12y+ bivalent booster vax 01/23/23 Recorded FRLR-YzS-0dEPH 12y+ bivalent booster vax 05/12/22 Recorded pneumococcal 20-valent conjugate vaccine 05/30/22 Recorded SARS-CoV-2 mRNA (rynrjyf-dwdc-kprqn) vax 03/10/22 Recorded SARS-CoV-2 mRNA (lpofnvy-mxoh-pualn) vax 10/04/21 Recorded SARS-CoV-2 (COVID-19) mRNA BNT-162b2 [...] 1 Refills, Maintenance, 08/01/23 13:53:00 EST, Tablet, [facility]/pharmacy #[id number], Partial [...] 12:44:00 EST, Route to Pharmacy Electronically, [facility], Partial fill upon patient req... Start Date: 09/05/23 Stop Date: 06/01/24 Status: Ordered baclofen 20 mg oral tablet 20 mg, 1, tablet, By Mouth, 3 times a day, # 270 tablet, Refills 2, Tot. Refills 2, Maintenance, 06/01/24 12:44:00 EDT, Route to Pharmacy Electronically, [facility]/pharmacy #[id number], Partial fill upon patientrequest if the prescription is for a schedule II op... Start Date: 06/01/24 Stop Date: 02/26/25 Status: Ordered baclofen 20 mg oral tablet 20 mg, 1, tablet, By Mouth, 3 times a day, for 90 days, # 270 tablet, Refills 2, Tot. Refills 2, Hard Stop 06/01/24 12:44:00 EDT, 09/05/23 12:44:00 EST, Route to Pharmacy Electronically, [facility]/pharmacy#[id number], Partial fill upon patient request if the pre... Start Date: 09/05/23 Stop Date: 06/01/24 Status: Ordered bifidobacterium-lactobacillus oral tablet 2 tablet, By Mouth, 2 times a day, [facility] Brand please ([facility]), # [...] EST, Route to Pharmacy Electronically, [facility], 155, cm, 05/28/23 [...] Maintenance,02/15/23 7:44:00 EDT, Route to Pharmacy Electronically, [facility], Partial fill upon patient request if the prescription is for... Start Date: 02/15/23 Stop Date: 11/12/23 Status: Ordered Juzo Compression Hose Juzo Compression Hose, See Instructions, # 2 each, Refills 2, Tot. Refills 2, Maintenance, Juzo Compression Hose 2 pairs qbolh-zmz-qakr Soft Knee FF Petite 20-30 mmHg Silicone, Black Stock Code [id number] I I I Part #42070 Size I I I SKU... Start Date: 03/12/23 Status: Ordered levothyroxine 0.088 mg oral tablet 1 tablet = 88 mcg, By Mouth, Daily, # 90 tablet, 1 Refills, Maintenance, 10/01/23 17:11:00 EST, Tablet, [facility]/pharmacy #[id number], Partial fill upon patient request if the prescription is for a schedule II opioid drug., 155, cm, 05/28/23 11:02:00 EDT, Height... Start Date: 10/01/23 Status: Ordered lisinopril 5 mg oral tablet 1, tablet, By Mouth, Daily, # 90 tablet, Refills 1, Tot. Refills 1, Maintenance, 10/01/23 17:15:00 EST, Route to Pharmacy Electronically, [facility]/pharmacy #[id number], 155, cm, 05/28/23 11:02:00 EDT, Height, 93.4, kg, 11/01/21 16:52:00 EDT, Dry Weight Start Date: 10/01/23 Status: Ordered Mapap 500 mg oral capsule See Instructions, TAKE 2 CAPSULES BY MOUTH 4 TIMES A DAY NEEDED FOR PAIN, # 480 capsule, 0 Refills, Maintenance, 10/01/23 17:46:00 EST, [facility]/pharmacy #[id number], 155, cm, 05/28/23 11:02:00 EDT, Height, 93.4, kg, 11/01/21 16:52:00 EDT, Dry Weight Start Date: 10/01/23 Status: Ordered Power Virginia Lift with [place] split-leg sling Power Virginia Lift with [place] split-leg sling, See Instructions, # 1 each, [...] 0 Refills, Maintenance, 08/08/23 18:05:00 EST, Tablet, [facility]/pharmacy #[id number], Partial fill upon patient request if... Start Date: 08/08/23 Stop Date: 09/05/23 Status: Ordered Provigil 200 mg oral tablet 1 tablet = 200 mg, By Mouth, 2 times a day, for 28 days, takes in am and lunchtime brand name only - dispense as written Brand name only, # 56 tablet, 3 Refills, Hard Stop 03/14/24 2:50:00 EDT, 11/23/23 2:50:00 EDT, Tablet, [facility]/pharmacy #[id number], Partia... Start Date: 11/23/23 Stop Date: 03/14/24 Status: Ordered Provigil 200 mg oral tablet 1 tablet = 200 mg, By Mouth, 2 times a day, for 28 days, takes in am and lunchtime brand name only - dispense as written Brand name only, # 56 tablet, 3 Refills, Hard Stop 11/23/23 2:50:00 EDT, 08/03/23 2:50:00 EST, Tablet, [facility]... Start Date: 08/03/23 Stop [...] 100 in lifetime) entered on: 10/31/21 Sex Surgical pathology study * Event Display: Surgical Pathology Authored Date: [id number] Patient Name: EDELMIRA ACOSTAKI Lab Patient : [id number] (Age: 68) Collection Date: 10/25/2023 Accession Date: 10/26/2023 Sign Out Date: 10/30/2023 Tissue Source: 1:LEFT INGUINAL CREASE Final Diagnosis: Skin, left inguinal crease, shave: - Seborrheic keratosis with concomitant hemangioma. Primary Pathologist:Shahid Miles M.D. electronically signed out by: Shahid Miles M.D. / DUY Clinical History: Morphology: Red keratotic papule DDX: Inflamed seborrheic keratosis Gross Description: Labeled left inguinal crease . Received in formalin is a 0.6 x 0.3 x 0.1 cm soft menjivar skin shave. The specimen is inked, bisected and is entirely submitted. 1-2 pieces, x3, shave orientation. (EG)* As of October 20, 2023, the specimen processing and staining is performed at [facility], [address] [place] [address] (CLIA#[id number]). Its performance characteristics are determined by [facility]. Phone #: [phone], On-Call Pathologist: [id number] Patient Care team information Care Team Personnel Name: Juliann Rich RN Position: [facility] RN Member Role: Primary Care Nurse Name: Elsa Allen NP Position: [facility] Outreach Member Role: Primary Care Nurse Address: Address: [address] [place] [phone]- [place] Name: Emma Mendoza RN Position: [facility] AMB Nurse Member Role: Primary Care Nurse Name: Juan Manuel LIM, Kristen Acosta Position: [facility] Physician - Primary Care Member Role: PCP Address: Address: [address] [place] [phone]- [place] Name: Komal Goodrich Position: [facility] Outreach Member Role: Lifetime Consulting Physician Name: Godfrey Cano Position: S RN Member Role: Primary Care Nurse Name: Anette Miranda RN Position: [facility] Onco RN Member Role: Primary Care Nurse Care Team Related Persons Name: DIOMEDES WARNER Address: home [address] [place] [address] Name: DANTE MOO Address: home [address] [place] [address] Name: MARLON GENTILE
--- OUTSIDE RECORDS SUMMARY | 2024-03-17 13:34 | XMS_ITS | Continuity of Care Document ---
Author Organization [facility] Address [address] [place] [address]- Care Team Providers Care Hand Hose Cutter Name Role Phone Juan Manuel LIM, Kristen Acosta Primary Care Physic juan alberto Encounter 01/10/24 - 01/17/24 [facility] [address], [address] [place] [address]- Attending Physician: Kristen Zambrano MD Admitting Physician: Kristen Zambrano MD Referring Physician: Kristen Zambrano MD Allergies, Adverse Reactions, Alerts Substance Reaction Severity Status morphine hives, SOB Active penicillins hive Active Wellbutrin rash Active Reglan Active cannabis (Schedule I substance) itching/vomiting Active Other Environmental Allergy mercury-fillings Active contrast media (iodine-based) itching throughout body Active Immunizations Given and Recorded Vaccine Date Status Refusal Reason SARS-CoV-2(COVID-19)mRNA-LNP vac(azn641) 10/19/23 Recorded SARS-CoV-2(COVID-19)mRNA-LNP vac(mwv359) 07/03/23 Recorded RSV vaccine preF3, recombinant 05/19/23 [...] influenza virus vaccine, inactivated 04/26/09 Arnoldo rded KTUJ-TnP-8uIEF 12y+ bivalent booster vax 01/23/23 Recorded QFLR-FvP-7bCOQ 12y+ bivalent booster vax 05/12/22 Recorded pneumococcal 20-valent conjugate vaccine 05/30/22 Recorded SARS-CoV-2 mRNA (hrkjzsy-bbmh-rkwut) vax 03/10/22 Recorded SARS-CoV-2 mRNA (wxpcjqm-dwpv-nmcaf) vax 10/04/21 Recorded SARS-CoV-2 (COVID-19) mRNA BNT-162b2 [...] Refills, Maintenance, 08/01/23 13:53:00 EST, Tablet, [facility]/pharmacy #[id number], Partial fill upon patient request if the [...] 12/28/23 10:31:00 EDT, Route to Pharmacy Electronically, [facility], Partial fill upon patient req... Start Date: 12/28/23 Stop Date: 06/25/24 Status: Ordered baclofen 20 mg oral tablet 20 mg, 1, tablet, By Mouth, 3 times a day, # 270 tablet, Refills 0, Tot. Refills 0, Maintenance, 06/25/24 10:31:00 EST, Route to Pharmacy Electronically, [facility] [...] 12:44:00 EST, [id number] Partial fill upon patient request if the pre... Start Date: 09/05/23 Stop Date: 06/01/24 Status: Ordered bifidobacterium-lactobacillus oral tablet 2 tablet, By Mouth, 2 times a day, [facility] Brand please ([facility]), # 360 tablet, 3 Refills, [...] 2 Refills, Maintenance, 01/06/23 14:02:00EDT, Tablet, [facility]/pharmacy #[id number], [...] DAY Start Date: 11/01/21 Status: Ordered [facility] Senior Probiotic Capsule [facility] Senior Probiotic Capsule, See Instructions, [...] mL, 5 Refills, 03/02/22 8:08:00 EDT, [facility]/pharmacy #[id number], 155, cm, 02/23/22 8:04:00 [...] Soft Stop, 03/27/23 18:43:00 EDT, Tablet, [facility]/pharmacy #[id number], Partial fill upon patient request if the prescription is for a schedule II opioid... Start Date: 03/27/23 Status: Ordered fluconazole 150 mg oral tablet 1 tablet = 150 mg, By Mouth, Every week, # 4 tablet, 1 Refills, Soft Stop, 05/26/22 8:59:00 EDT, Tablet, [facility]/pharmacy #[id number], [...] Maintenance,12/28/23 10:30:00 EDT, Route to Pharmacy Electronically, [facility], Partialfill upon patient request if the [...] 2, Maintenance, Juzo Compression Hose 2 pairs vipyw-abz-tvxi Soft Knee FF Petite 20-30 mmHg Silicone, Black Stock Code [id number] I I I Part #60181 Size I I I SKU... Start Date: 03/12/23 Status: Ordered levothyroxine 0.088 mg oral tablet 1 tablet = 88 mcg, By Mouth, Daily, # 90 tablet, 1 Refills, Maintenance, 10/01/23 17:11:00 EST, Tablet, [facility]/pharmacy #[id number], Partial fill upon patient request if the prescription is for a schedule II opioid drug., 155, cm, 05/28/23 11:02:00 EDT, Height... Start Date: 10/01/23 Status: Ordered lisinopril 5 mg oral tablet 1, tablet, By Mouth, Daily, # 90 tablet, Refills 1, Tot. Refills 1, Maintenance, 10/01/23 17:15:00 EST, Route to Pharmacy Electronically, [facility]/pharmacy #[id number], 155, cm, 05/28/23 11:02:00 EDT, Height, 93.4, kg, 11/01/21 16:52:00 EDT, Dry Weight Start Date: 10/01/23 Status: Ordered Mapap 500 mg oral capsule See Instructions, TAKE 2 CAPSULES BY MOUTH 4 TIMES A DAY NEEDED FOR PAIN, # 480 capsule, 0 Refills, Maintenance, 11/12/23 15:45:00 EDT, [facility]/pharmacy #[id number], 155, cm, 05/28/23 11:02:00 EDT, Height Start Date: 11/12/23 Status: Ordered Power [place] Lift with [place] split-leg sling Power [place] Lift with [place] split-leg sling, See Instructions, # 1 each, [...] 90 capsule, 1 Refills, 12/11/22 15:16:00 EDT, [facility]/pharmacy #[id number], 155, cm, 10/10/22 13:40:00 [...] Exam Date Time Procedure Performing Provider Status 01/10/24 3:02 PM MM Digital Mammo Screening Staci Cruz; Auth (Verified) Notes: (MM Digital Mammo Screening) Reason For Exam: Screening RESULT: MM Digital Mammo Screening PROCEDURE: MM Digital Mammo Screening INDICATION: Screening for breast cancer. No known palpable abnormalities. COMPARISON: Back to 03/15/2018, most recent 05/11/2021. TECHNIQUE:Full-field digital CC and MLO 3D tomosynthesis images of both breasts were acquired. Computer-aided detection (CAD) was utilized in the interpretation of this study Best possible imaging obtained, patient is unable to stand. DENSITY: The breasts are almost entirely fatty. FINDINGS: No suspicious masses, microcalcifications, areas of architectural distortion, or skin thickening to suggest malignancy. IMPRESSION: Somewhat limited evaluation. No mammographic evidence of malignancy. RECOMMENDATION: Screening as decided clinically. BI-RADS: 1 (Negative) Lay letter mailed to patient WSN: [id number] Ordering Physician: Kristen Zambrano Dictated By: Israel Willis MD Dictated Date/Time: 01/10/24 3:07 pm Reviewed By: Israel Willis MD Signed By: Israel Willis MD Signed Date/Time: 01/10/24 3:07 pm Transcribed By: SONIA International [employer] Analyst Date/Time: 01/10/24 3:04 pm Birads: Social History Social History Type Response Smoking Status Never (less than 100 in lifetime) entered on: 10/31/21 Sex Patient Care team information Care Team Personnel Name: Juliann Rich RN Position: [facility] RN Member Role: Primary Care Nurse Name: Elsa Allen NP Position: [facility] Outreach Member Role: Primary Care Nurse Address: Address: [address] [place] [address]- [place] Name: Emma Mendoza RN Position: [facility] AMB Nurse Member Role: Primary Care Nurse Name: Kristen Zambrano MD Position: [facility] Physician - Primary Care Member Role: PCP Address: Address: [address] [place] [address]- Name: Anette Soler RN Position: [facility] Onco RN Member Role: Primary Care Nurse Name: Komal Goodrich Position: [facility] Outreach Member Role: Lifetime Consulting Physician Name: Godfrey Cano Position: S RN Member Role: Primary Care Nurse Care Team Related Persons Name: DIOMEDES WARNER Address: [address] [place] [address] Name: MOO HOWELL Address: [address] [place] [address] Name: MARLON GENTILE
--- OUTSIDE RECORDS SUMMARY | 2024-03-17 13:34 | XMS_ITS | Continuity of Care Document ---
Author Organization [facility] oenterology Address [address] [place] [address]- Care Team Providers Care Ed Manager Name Role Phone Jason CENTENO, Efrem Pickering Primary Care Physician [place] [facility] Date(s): 01/06/20 - 02/05/20 [facility] [address] [place] [address]- [facility] Attending Physician: Alissa Gannon Admitting Physician: AdmtrAlissa Referring Physician: Admtr, Alissa Allergies, Adverse Reactions, [...]
--- OUTSIDE RECORDS SUMMARY | 2024-03-17 13:34 | XMS_ITS | Continuity of Care Document ---
Author Organization [facility] Address [address] [place] [address]- Care Team Providers Care Grain Origination Specialist Name Role Phone Juan Manuel LIM, Kristen Acosta Primary Care Physic juan alberto Encounter [facility] Date(s): 03/15/23 - 04/14/23 [facility] [address] [place] [address]- Attending Physician: Alissa Gannon Admitting Physician: AdmAlissa [...] Reason pneumococcal 20-valent conjugate vaccine 05/30/22 Recorded FLCE-XcX-3cTJQ 12y+ bivalent booster vax 05/12/22 Recorded influenza [...] vaccine, inactivated 04/26/09 Arnoldo rded SARS-CoV-2 mRNA (yrumaiz-bzmc-cbcio) vax 03/10/22 Recorded SARS-CoV-2 mRNA (rdivjnv-kxcj-znneu) vax 10/04/21 Recorded SARS-CoV-2 (COVID-19) mRNA BNT-162b2 [...] 1 Refills, Maintenance, 12/11/22 17:34:00 EDT, Tablet, [facility]/pharmacy #[id number], Partial fill upon patient request if the prescription is for a schedule II opioid drug., 155, cm, 10/10/22 13:40:00 E... Start Date: 12/11/22 Status: Ordered baclofen 20 mg oral tablet 20 mg, 1, tablet, By Mouth, 3 times a day, # 270 tablet, Refills 2, Tot. Refills 2, Maintenance, 12/09/22 12:44:00 EDT, Route to Pharmacy Electronically, [facility], Partial fill upon patient request if the prescription is for a... Start Date: 12/09/22 Stop Date: 09/05/23 Status: Ordered bifidobacterium-lactobacillus oral tablet 2 tablet, By Mouth, 2 times a day, [facility] Brand please ([facility]), # 360 tablet, 3 Refills, Maintenance, 08/11/21 17:02:00 EST, Tablet, [facility]/pharmacy #[id number], Partial fill upon patient request if the prescription is for a schedule II opioid drug., 2... Start Date: 08/11/21 Stop Date: 08/06/22 Status: Ordered calcium carbonate 600 mg oral tablet 1 tablet = 600 mg, By Mouth, 2 times a day, # 180 tablet, 2 Refills, Maintenance, 01/06/23 14:02:00EDT, Tablet, [facility]/pharmacy #[id number], Partial fill upon patient request if the prescription is for a schedule II opioid drug., 155, cm, 02/23/22 8:04:00 EDT... Start Date: 01/06/23 Stop Date: 10/03/23 Status: Ordered Centrum Silver Ultra Women's oral tablet 1 tablet, By Mouth, Daily, 0 Refills, Maintenance, 07/09/18 8:43:55 EST Start Date: 07/09/18 Status: Ordered [facility] SENIOR PROBIOTIC CAPSULE TAKE 2 CAPSULES BY MOUTH TWICE A DAY Start Date: 11/01/21 Status: Ordered [facility] Senior Probiotic Capsule [facility] Senior Probiotic [...] 450 mL, 5 Refills, 03/02/22 8:08:00 EDT, [facility]/pharmacy #[id number], 155, cm, 02/23/22 8:04:00 EDT, [...] Refills, Soft Stop, 03/27/23 18:43:00 EDT, Tablet, [facility]/pharmacy #[id number], Partial fill upon patient request if the prescription is for a schedule II opioid... Start Date: 03/27/23 Status: Ordered fluconazole 150 mg oral tablet 1 tablet = 150 mg, By Mouth, Every week, # 4 tablet, 1 Refills, Soft Stop, 05/26/22 8:59:00 EDT, Tablet, [facility]/pharmacy #[id number], Partial fill [...] 01/17/23 19:36:00 EDT, Route to Pharmacy Electronically, [facility], 155, cm, 10/10/22 13:40:00 [...] 2, Maintenance, Juzo Compression Hose 2 pairs mfwhv-enx-bksy Soft Knee FF Petite 20-30 mmHg Silicone, Black Stock Code [id number] I I I Part #[id number] Size I I I SKU... Start Date: 03/12/23 Status: Ordered levothyroxine 0.088 mg oral tablet 1 tablet = 88 mcg, By Mouth, Daily, # 90 tablet, 3 Refills, Maintenance, 03/15/23 17:17:00 EDT, Tablet, [facility], Partial fill upon patient request if the prescription is fora schedule II opioid drug., 155, cm, 03/15/23 17:11... Start Date: 03/15/23 Status: Ordered lisinopril 5 mg oral tablet 1, tablet, By Mouth, Daily, # 90 tablet, Refills 3, Tot. Refills 3, Maintenance, 03/15/23 17:16:00 EDT, Route to Pharmacy Electronically, [facility], 155, cm, 03/15/23 17:11:00EDT, Height, 93.4, kg, 11/01/21 16:52:00 EDT, Dry W... Start Date: 03/15/23 Status: Ordered Mapap 500 mg oral capsule See Instructions, TAKE 2 CAPSULES BY MOUTH 4 TIMES A DAY NEEDED FOR PAIN, # 480 capsule, 0 Refills, Maintenance, 03/12/23 9:16:00 EDT, [facility]/pharmacy #[id number], 155, cm, 10/10/22 13:40:00 EST, Height, 93.4, kg, 11/01/21 16:52:00 EDT, Dry Weight Start Date: 03/12/23 Status: Ordered Power Virginia Lift with [place] split-leg sling Power Virginia Lift with [place] split-leg sling, See Instructions, # 1 each, [...] 5 Refills, Maintenance, 12/11/22 17:34:00 EDT, Tablet, [facility]/pharmacy #[id number], Partial fill [...] 100 in lifetime) entered on: 10/31/21 Sex Laboratory * Event Display: Non BH Lab Results Authored Date: * Event Display: Non BH Lab Results Authored Date: * Event Display: Non BH Lab Results Authored Date: * Event Display: Non BH Lab Results Authored Date: Cardiology Consult note * Event Display: Consult Note Cardiology Authored Date: Radiology * Event Display: CT Scan Abdomen, Non- BH Authored Date: Patient Care team information Care Team Personnel Name: Juliann Rich RN Position: [facility] RN Member Role: Primary Care Nurse Name: Elsa Allen NP Position: Reference Physician Member Role: Primary Care Nurse Address: Address: [address] [place] [address]- [place] Name: Emma Mendoza RN Position: [facility] AMB Nurse Member Role: Primary Care Nurse Name: Juan Manuel LIM, Kristen Acosta Position: [facility] Physician - Primary Care Member Role: PCP Address: Address: [address], [place] [address]- Name: Komal Goodrich Position: [facility] Outreach Member Role: Lifetime Consulting Physician Name: Godfrey Cano Position: [facility] RN Member Role: Primary Care Nurse Name: Anette Miranda RN Position: [facility] Onco RN Member Role: Primary Care Nurse Care Team Related Persons Name: DIOMEDES WARNER Address: home [address] [place] [address] Name: MOO HOWELL Address: home [address] [place] [address] Name: MARLON GENTILE
--- OUTSIDE RECORDS SUMMARY | 2024-03-17 13:35 | XMS_ITS | Continuity of Care Document ---
Author Organization [facility] Address [address] [place] [address]- Care Team Providers Care Coconut Boiler Name Role Phone Juan Manuel LIM, Kristen Acosta Primary Care Physic juan alberto [place] [facility] [place] 04[place]13/22 [facility] [address] [place] [address]- Attending Physician: Alissa Gannon Admitting Physician: AdmAlissa [...] vaccine, inactivated 04/26/09 Arnoldo rded SARS-CoV-2 mRNA (mkrxidp-rleh-cpvdf) vax 03/10/22 Recorded SARS-CoV-2 mRNA (blrwwpx-chtd-vzjdz) vax 10/04/21 Recorded SARS-CoV-2 (COVID-19) mRNA BNT-162b2 [...] 04/19/22 17:46:00 EDT, 08/22/21 17:46:00 EST, Capsule, [facility]/pharmacy #[id number], Partial fill upon patient request if the prescription is for a schedul... Start Date: 08/22/21 Stop Date: 04/19/22 Status: Ordered ascorbic acid 1000 mg oral tablet 1 tablet = 1,000 mg, By Mouth, 2 times a day, # 90 tablet, 2 Refills, Maintenance, 02/28/22 8:12:00EDT, Tablet, [facility]/pharmacy #[id number], Partial fill [...] 03/14/22 12:44:00 EDT, [id number] Partial fill upon patient request if the pre... Start Date: 03/14/22 Stop Date: 12/09/22 Status: Ordered bifidobacterium-lactobacillus oral tablet 2 tablet, By Mouth, 2 times a day, [facility] Brand please ([facility]), # 360 tablet, 3 Refills, Maintenance, 08/11/21 17:02:00 EST, Tablet, [id number] Partial fill upon patient request if the prescription is for a schedule II opioid drug., 2... Start Date: 08/11/21 Stop Date: 08/06/22 Status: Ordered calcium carbonate 600 mg oral tablet 1 tablet = 600 mg, By Mouth, 2 times a day, # 180 tablet, 2 Refills, Maintenance, 01/06/23 14:02:00EDT, Tablet, [id number] Partial fill upon [...] 8:43:55 EST Start Date: 07/09/18 Status: Ordered [facility] SENIOR PROBIOTIC CAPSULE TAKE 2 CAPSULES BY MOUTH TWICE A DAY Start Date: 11/01/21 Status: Ordered diclofenac 1% topical gel 1 application, Topically, 4 times a day, Apply 4 gram QID prn to affected pain to dropped foot - not to exceed 16 grams/day/single joint of lower extremities, # 100 Gm, 3 Refills, Maintenance, 04/02/22 21:13:00 EDT, Gel, [facility] Start Date: 04/02/22 Status: Ordered electric [...] 01/11/22 13:45:00 EDT, [facility] Start Date: 01/11/22 Status: Ordered gabapentin 300 [...] 02/20/22 7:44:00 EDT, Route to Pharmacy Electronically, [facility]/pharmacy#[id number], Partial fill upon patient request if the pre... Start Date: 02/20/22 Stop Date: 05/21/22 Status: Ordered Juzo Compression Hose Juzo Compression Hose, See Instructions, # 2 each, Refills 2, Tot. Refills 2, Maintenance, 20-30mmghg FF Petite (short),Fjcii-kwb-edbd, soft knee, black silicone Stock code [id number] Part #[id number], Size III. [facility] [id number], 12/07/21 11:32:00 EDT,... Start Date: 12/07/21 Status: Ordered levothyroxine 0.088 mg oral tablet 1 tablet = 88 mcg, By Mouth, Daily, # 90 tablet, 3 Refills, Maintenance, 03/31/22 13:45:00 EDT, Tablet, [facility], Partial fill upon patient request if the prescription is fora schedule II opioid drug., 155, cm, 03/14/22 11:11... Start Date: 03/31/22 Status: Ordered lisinopril 5 mg oral tablet 5 mg, 1, tablet, By Mouth, Daily, # 90 tablet, Refills 3, Tot. Refills 3, Maintenance, 02/24/22 15:53:00 EDT, Route to Pharmacy Electronically, [facility]/pharmacy #[id number], Partial fill upon patient request if the prescription is for a schedule II opioid drug.... Start Date: 02/24/22 Status: Ordered Potassium Chloride (Eqv-K-Tab) 20 mEq oral tablet, extended release 1 tablet = 20 mEq, By Mouth, Daily, for low potassium, # 10 tablet, 0 Refills, Maintenance, 03/02/22 19:14:00 EDT, [facility]/pharmacy #[id number], Partial fill upon patient request if the prescription is for a schedule II opioid drug., 155, cm, 02/23/22 8:04:00 E... Start Date: 03/02/22 Stop Date: 03/12/22 Status: Ordered Power Virginia Lift with [place] split-leg sling Power Virginia Lift with [place] split-leg sling, See Instructions, # 1 each, [...] 3 Refills, Maintenance, 02/28/22 8:12:00 EDT, Tablet, [facility]/pharmacy #[id number], Partial [...] capsule, 2 Refills, 02/28/22 8:13:00 EDT, [facility]/pharmacy #[id number], 155,cm, 02/23/22 8:04:00 EDT, Height, 93.4, kg, 11/01/21 16:52:00 EDT, Dry Weight Start Date: 02/28/22 Status: Ordered Xarelto 20 mg oral tablet 1 tablet = 20 mg, By Mouth, Daily at supper, # 90 tablet, 3 Refills, Maintenance, 02/01/22 12:42:00EDT, Tablet, [facility], Partial fill upon patient request [...] Name: Juan Manuel LIM, Kristen Acosta Address: [address] [place] [address]
--- OUTSIDE RECORDS SUMMARY | 2024-03-17 13:35 | XMS_ITS | Continuity of Care Document ---
Author Organization [facility] Address [address] [place] [address]- Care Team Providers Care Speech Lang Path Therapist Name Role Phone Rey CENTENO, Javy Lerma Primary Care Phys[id number] - [facility] [place] [facility] [address] [place], [place] [address] Attending Physician: Admtr, [id number] Admitting Physician: Admtr, [...] Acute 03/18/21 10:20:00 EDT,02/18/21 10:20:00 EDT, Liquid, [facility]/pharmacy #[id number], Partial fill [...] 02/18/21 10:23:00 EDT, Route to Pharmacy Electronically, [facility]/pharmacy #[id number], Partial fill [...] mL, 0 Refills, Maintenance, 02/18/21 10:22:00 EDT,Liquid, [facility]/pharmacy #[id number], Partial fill [...] 02/18/21 10:23:00 EDT, Route to Pharmacy Electronically, [facility]/pharmacy #[id number] Tablet, Partial fill upon patient r... Start [...]
--- OUTSIDE RECORDS SUMMARY | 2024-03-17 13:35 | XMS_ITS | Continuity of Care Document ---
Author Organization [facility] Address [address] [place] [address]- Care Team Providers Care Boat Operator Name Role Phone Juan Manuel LIM, Kristen Acosta Primary Care Physic juan alberto [facility]counter [facility] Date(s): 10/25/22 - 11/24/22 [facility] [address] [place] [address]- Allergies, Adverse Reactions, Alerts Substance Reaction Severity Status morphine hives, SOB Active Wellbutrin rash Active contrast media (iodine-based) itching throughout body Active Other Environmental Allergy mercury-fillings Active penicillins hive Active Reglan Active cannabis (Schedule I substance) itching/vomiting Active Immunizations Given and Recorded Vaccine Date Status Refusal Reason pneumococcal 20-valent conjugate vaccine 05/30/22 Recorded AHQU-PvX-2cSQM 12y+ bivalent booster vax 05/12/22 Recorded influenza [...] vaccine, inactivated 04/26/09 Arnoldo rded SARS-CoV-2 mRNA (tizhsll-aiop-cssuk) vax 03/10/22 Recorded SARS-CoV-2 mRNA (oqdqevz-bmsr-xdctc) vax 10/04/21 Recorded SARS-CoV-2 (COVID-19) mRNA BNT-162b2 [...] 0 Refills, Maintenance, 10/05/22 9:35:00EST, Tablet, [facility]/pharmacy #[id number], Partial fill upon patient request if [...] 03/14/22 12:44:00 EDT, [id number] Partial fill upon patient request if the pre... Start Date: 03/14/22 Stop Date: 12/09/22 Status: Ordered bifidobacterium-lactobacillus oral tablet 2 tablet, By Mouth, 2 times a day, [facility] Brand please ([facility] Wellness), # 360 tablet, 3 Refills, Maintenance, 08/11/21 17:02:00 EST, Tablet, [facility]/pharmacy #[id number], Partial fill upon patient request if the prescription is for a schedule II opioid drug., 2... Start Date: 08/11/21 Stop Date: 08/06/22 Status: Ordered calcium carbonate 600 mg oral tablet 1 tablet = 600 mg, By Mouth, 2 times a day, # 180 tablet, 2 Refills, Maintenance, 01/06/23 14:02:00EDT, Tablet, [facility]/pharmacy #[id number], Partial fill upon patient request if [...] Start Date: 07/09/18 Status: Ordered [facility] SENIOR PROBIOTIC CAPSULE TAKE 2 CAPSULES BY MOUTH TWICE A DAY Start Date: 11/01/21 Status: Ordered [facility] Senior Probiotic Capsule [facility] Senior Probiotic Capsule, See Instructions, # 180 [...] 5 Refills, 03/02/22 8:08:00 EDT, [facility]/pharmacy #[id number], 155, cm, 02/23/22 8:04:00 EDT, Height, [...] Soft Stop, 05/26/22 8:59:00 EDT, Tablet, [facility]/pharmacy #[id number], Partial fill upon patient request if [...] 13:45:00 EDT, [facility] Start Date: 01/11/22 Status: Ordered gabapentin 300 [...] Tot. Refills 2, Maintenance, 20-30mmghg FF Petite (short),Apweb-qha-ikme, soft knee, black silicone Stock code [id number] Part #[id number], Size III. [facility] [id number], 12/07/21 11:32:00 EDT,... Start Date: 12/07/21 Status: Ordered levothyroxine 0.088 mg oral tablet 1 tablet = 88 mcg, By Mouth, Daily, # 90 tablet, 1 Refills, Maintenance, 09/08/22 14:26:00 EST, Tablet, [facility], Partial fill upon patient request if the prescription is fora schedule II opioid drug., 155, cm, 07/12/22 14:10... Start Date: 09/08/22 Status: Ordered lisinopril 5 mg oral tablet 5 mg, 1, tablet, By Mouth, Daily, # 90 tablet, Refills 3, Tot. Refills 3, Maintenance, 02/24/22 15:53:00 EDT, Route to Pharmacy Electronically, [facility]/pharmacy #[id number], Partial fill upon patient request if the prescription is for a schedule II opioid drug.... Start Date: 02/24/22 Status: Ordered lisinopril 5 mg oral tablet See Instructions, TAKE 1 TABLET DAILY, # 90 tablet, Refills 1, Maintenance, 09/24/22 19:24:00 EST, Instructions Replace Required Details, Route to Pharmacy Electronically, [facility], 155, cm, 07/12/22 14:10:00 EST, Height, 93.4, k... Start Date: 09/24/22 Status: Ordered Mapap 500 mg oral capsule See Instructions, TAKE 2 CAPSULES BY MOUTH 4 TIMES A DAY NEEDED FOR PAIN, # 480 capsule, 3 Refills, Maintenance, 06/04/22 16:03:00 EDT, [facility], 155, cm, 05/25/22 13:44:00 EDT, Height, 93.4, kg, 11/01/21 16:52:00 EDT, Dry Weight Start Date: 06/04/22 Status: Ordered Power Virginia Lift with [place] split-leg sling Power Virginia Lift with [place] split-leg sling, See Instructions, # 1 each, [...] 5 Refills, Maintenance, 10/05/22 17:39:00 EST, Tablet, [facility]/pharmacy #[id number], Partial fill upon patient request if [...] 2 Refills, 02/28/22 8:13:00 EDT, [facility]/pharmacy #[id number], 155,cm, 02/23/22 8:04:00 EDT, Height, 93.4, kg, 11/01/21 16:52:00 EDT, Dry Weight Start Date: 02/28/22 Status: Ordered Xarelto 20 mg oral tablet 1 tablet = 20 mg, By Mouth, Daily at supper, # 90 tablet, 3 Refills, Maintenance, 02/01/22 12:42:00EDT, Tablet, [facility], Partial fill [...] Team Personnel Name: Juliann Rich RN Position: [facility] RN Member Role: Primary Care Nurse Name: Elsa Allen NP Position: Reference Physician Member Role: Primary Care Nurse Address: Address: [address] [place] [address] [address] [place], [place] [address] Name: Emma Mendoza RN Position: [facility] RN Member Role: Primary Care Nurse Name: Juan Manuel LIM, Kristen Acosta Position: [facility] Primary Care Physician Member Role: PCP Address: Address: [address] [place] [id number] Name: Jade Medina Position: [facility] RN Member Role: Primary Care Nurse Name: Komal Goodrich Position: S Outreach Member Role: Lifetime Consulting Physician Name: Godfrey Cano Position: [facility] RN Member Role: Primary Care Nurse Name: Anette Miranda RN Position: [facility] Onco RN Member Role: Primary Care Nurse Care Team Related Persons Name: DIOMEDES WARNER Address: home [address] [place] [address] Name: MOO HOWELL Address: [address] [address] Name: MARLON GENTILE
--- OUTSIDE RECORDS SUMMARY | 2024-03-17 13:35 | XMS_ITS | Continuity of Care Document ---
Author Organization [facility] Address [address] [place] [address]- Care Team Providers Care Registered Nursing Professor Name Role Phone Juan Manuel LIM, Kristen Acosta Primary Care Physic juan alberto [facility] Date[facility]): 07[facility]23 - 08/11/23 [facility] [address] [place] [address]- Allergies, Adverse Reactions, Alerts Substance Reaction Severity Status morphine hives, SOB Active Wellbutrin rash Active Reglan Active contrast media (iodine-based) itching throughout body Active Other Environmental Allergy mercury-fillings Active penicillins hive Active cannabis (Schedule I substance) itching/vomiting Active Immunizations Given and Recorded Vaccine Date Status Refusal Reason pneumococcal 20-valent conjugate vaccine 05/30/22 Recorded CUZB-IkM-9xGQG 12y+ bivalent booster vax 05/12/22 Recorded influenza [...] vaccine, inactivated 04/26/09 Arnoldo rded SARS-CoV-2 mRNA (jhtkzpx-gpmb-mmodu) vax 03/10/22 Recorded SARS-CoV-2 mRNA (eaquous-chdc-tconc) vax 10/04/21 Recorded SARS-CoV-2 (COVID-19) mRNA BNT-162b2 [...] Refills, Maintenance, 08/01/23 13:53:00 EST, Tablet, [facility]/pharmacy #[id number], Partial fill upon patient request if the [...] EST, Route to Pharmacy Electronically, [facility], Partial fill upon patient req... [...] EST, Route to Pharmacy Electronically, [facility]/pharmacy #[id number], Partial fill upon patientrequest [...] Soft Stop, 03/27/23 18:43:00 EDT, Tablet, [facility]/pharmacy #[id number], Partial [...] 07/03/23 1:01:00 EST, Route to Pharmacy Electronically, [facility], 155, cm, 05/28/23 [...] 2, Maintenance, Juzo Compression Hose 2 pairs yotby-azv-wavl Soft Knee FF Petite 20-30 mmHg Silicone, Black Stock Code [id number] I I I Part #[id number] Size I I I SKU... Start Date: 03/12/23 Status: Ordered levothyroxine 0.088 mg oral tablet 1 tablet = 88 mcg, By Mouth, Daily, # 90 tablet, 3 Refills, Maintenance, 08/01/23 13:54:00 EST, Tablet, [facility]/pharmacy #[id number], Partial [...] 0 Refills, Maintenance, 08/01/23 13:54:00 EST, [facility]/pharmacy #[id number], 155, cm, 05/28/23 11:02:00 EDT, Height, 93.4, kg, 11/01/21 16:52:00 EDT, Dry Weight Start Date: 08/01/23 Status: Ordered Power Virginia Lift with [place] split-leg sling Power Virginia Lift with [place] split-leg sling, See Instructions, # 1 each, [...] Refills, Maintenance, 08/08/23 18:05:00 EST, Tablet, [facility]/pharmacy #[id number], Partial [...] 11/23/23 2:50:00 EDT, 08/03/23 2:50:00 EST, Tablet, [facility]... Start Date: 08/03/23 Stop [...] capsule, 1 Refills, 12/11/22 15:16:00 EDT, [facility]/pharmacy #[id number], 155, cm, 10/10/22 13:40:00 EST, Height, 93.4, kg, 11/01/21 16:52:00 EDT, Dry Weight Start Date: 12/11/22 Status: Ordered Xarelto 20 mg oral tablet See Instructions, TAKE 1 TABLET DAILY AT SUPPER, # 90 tablet, 3 Refills, Maintenance, 01/17/23 9:37:00 EDT, [facility], 155, cm, 10/10/22 [...] Team Personnel Name: Juliann Rich RN Position: [facility] RN Member Role: Primary Care Nurse Name: Elsa Allen NP Position: Reference Physician Member Role: Primary Care Nurse Address: Address: [address] [place] [address] [address] [place] [address]- [place] Name: Emma Mendoza RN Position: [facility] AMB Nurse Member Role: Primary Care Nurse Name: Juan Manule LIM, Kristen Acosta Position: [facility] Physician - Primary Care Member Role: PCP Address: Address: [address] [place] [id number]- Name: Komal Goodrich Position: [facility] Outreach Member Role: Lifetime Consulting Physician Name: Godfrey Cano Position: [facility] RN Member Role: Primary Care Nurse Name: Anette Miranda RN Position: [facility] Onco RN Member Role: Primary Care Nurse Care Team Related Persons Name: DIOMEDES WARNER Address: [address] [place] [address] Name: MOO HOWELL Address: [address] [place] [address] Name: MARLON GENTILE
--- OUTSIDE RECORDS SUMMARY | 2024-03-17 13:35 | XMS_ITS | Continuity of Care Document ---
Author Organization [facility] Infectious Disease Address [address] [place] [address]- Care Team Providers Care Mail List Librarian Name Role Phone Juan Manuel LIM, Kristen Acosta Primary Care Physic juan alberto Encounter [facility] Date(s): 09/12/22 - 10/12/22 [facility] Infectious Disease [address] [place] [id number] Allergies, Adverse Reactions, Alerts Substance Reaction Severity Status morphine hives, SOB Active penicillins hive Active Wellbutrin rash Active Reglan Active cannabis (Schedule I substance) itching/vomiting Active Other Environmental Allergy mercury-fillings Active contrast media (iodine-based) itching throughout body Active Immunizations Given and Recorded Vaccine Date Status Refusal Reason pneumococcal 20-valent conjugate vaccine 05/30/22 Recorded [id number] 12y+ bivalent booster vax 05/12/22 Recorded influenza [...] vaccine, inactivated 04/26/09 Arnoldo rded SARS-CoV-2 mRNA (esypdpy-qjdz-xosgu) vax 03/10/22 Recorded SARS-CoV-2 mRNA (mvivghk-spha-ebamd) vax 10/04/21 Recorded SARS-CoV-2 (COVID-19) mRNA BNT-162b2 [...] tablet, 0 Refills, Maintenance, 10/05/22 9:35:00EST, Tablet, [facility]/pharmacy #[id number], Partial fill upon patient request if the prescription is for a schedule II opioid drug., 155, cm, 09/26/22 14:02:00 ES... Start Date: 10/05/22 Status: Ordered baclofen 20 mg oral tablet 20 mg, 1, tablet, By Mouth, 3 times a day, # 270 tablet, Refills 2, Tot. Refills 2, Maintenance, 12/09/22 12:44:00 EDT, Route to Pharmacy Electronically, [facility], Partial fill upon [...] 01/11/22 13:45:00 EDT, Route to Pharmacy Electronically, [facility]... Start Date: 01/11/22 Status: Ordered gabapentin 300 [...] Tot. Refills 2, Maintenance, 20-30mmghg FF Petite (short),Jhqgs-gmc-asol, soft knee, black silicone Stock code [id number] Part #[id number], Size III. [facility] [id number], 12/07/21 11:32:00 EDT,... Start Date: 12/07/21 Status: Ordered levothyroxine 0.088 mg oral tablet 1 tablet = 88 mcg, By Mouth, Daily, # 90 tablet, 1 Refills, Maintenance, 09/08/22 14:26:00 EST, Tablet, [facility], Partial fill upon patient request if the prescription is fora schedule II opioid drug., 155, cm, 07/12/22 14:10... Start Date: 09/08/22 Status: Ordered lisinopril 5 mg oral tablet 5 mg, 1, tablet, By Mouth, Daily, # 90 tablet, Refills 3, Tot. Refills 3, Maintenance, 02/24/22 15:53:00 EDT, Route to Pharmacy Electronically, [facility]/pharmacy #[id number], Partial fill upon patient request if the prescription is for a schedule II opioid drug.... Start Date: 02/24/22 Status: Ordered lisinopril 5 mg oral tablet See Instructions, TAKE 1 TABLET DAILY, # 90 tablet, Refills 1, Maintenance, 09/24/22 19:24:00 EST, Instructions Replace Required Details, Route to Pharmacy Electronically, [facility], 155, cm, 07/12/22 14:10:00 EST, Height, 93.4, k... Start Date: 09/24/22 Status: Ordered Mapap 500 mg oral capsule See Instructions, TAKE 2 CAPSULES BY MOUTH 4 TIMES A DAY NEEDED FOR PAIN, # 480 capsule, 3 Refills, Maintenance, 06/04/22 16:03:00 EDT, [facility] STORE [id number], 155, cm, 05/25/22 13:44:00 EDT, Height, 93.4, kg, 11/01/21 16:52:00 EDT, Dry Weight Start Date: 06/04/22 Status: Ordered Power [place] Lift with [place] split-leg sling Power [place] Lift with [place] split-leg sling, See Instructions, # 1 each, [...] 11/01/22 17:46:00 EDT, 07/12/22 17:46:00 EST, Tablet, [facility]/pharmacy #[id number], Partial fill upon pa... Start Date: 07/12/22 Stop Date: 11/01/22 Status: Ordered Provigil 200 mg oral tablet 1 tablet = 200 mg, By Mouth, 2 times a day, takes in am and lunchtime brand name only - dispense aswritten, # 56 tablet, 5 Refills, Maintenance, 10/05/22 17:39:00 EST, Tablet, [facility]/pharmacy #[id number], Partial [...] 10/25/22 18:25:00 EDT, 07/05/22 18:25:00 EST, Tablet, [facility], Parti... Start Date: 07/05/22 Stop [...] 90 capsule, 2 Refills, 02/28/22 8:13:00 EDT, [facility]/pharmacy #[id number], 155,cm, 02/23/22 8:04:00 EDT, Height, 93.4, kg, 11/01/21 16:52:00 EDT, Dry Weight Start Date: 02/28/22 Status: Ordered Xarelto 20 mg oral tablet 1 tablet = 20 mg, By Mouth, Daily at supper, # 90 tablet, 3 Refills, Maintenance, 02/01/22 12:42:00EDT, [facility], Partial fill upon patient request [...] team information Care Team Personnel Name: Juliann Rihc RN Position: [facility] RN Member Role: Primary Care Nurse Name: Efantis CLINICAL OUTCOMES MANAGER, Elsa Kristen Position: Reference Physician Member Role: Primary Care Nurse Address: Address: [address] [place] [address] [address] [place] [address]- [place] Name: Emma Mendoza RN Position: [facility] RN Member Role: Primary Care Nurse Name: Juan Manuel LIM, Kristen Acosta Position: [facility] Primary Care Physician Member Role: PCP Address: Address: [address] [place] [id number]- Name: Jade Medina Position: [facility] RN Member Role: Primary Care Nurse Name: Komal Goodrich Position: [facility] Outreach Member Role: Lifetime Consulting Physician Name: Godfrey Cano Position: [facility] RN Member Role: Primary Care Nurse Name: Anette Miranda RN Position: [facility] Onco RN Member Role: Primary Care Nurse Care Team Related Persons Name: DIOMEDES WARNER Address: home [address] [place] [address] Name: MOO HOWELL Address: home [address] [place] [address] Name: MARLON GENTILE
--- OUTSIDE RECORDS SUMMARY | 2024-03-17 13:35 | XMS_ITS | Continuity of Care Document ---
Author Organization [facility] Address [address] [place] [address]- Care Team Providers Care Pot Liner Name Role Phone Rey CENTENO, Javy Lerma Primary Care Physician [phone] Encounter [facility] Date(s): 04/20/21 - 05/21/21 [facility] [address] [place] [address]- Attending Physician: Ruben SALES AGENT [employer], Crystal Allergies, Adverse Reactions, Alerts Substance Reaction Severity [...] Refills, Maintenance, 05/18/21 7:27:00 EDT, Tablet, [facility]/pharmacy #[id number], Partial fill upon patient [...] Refills, Maintenance, 04/25/21 14:08:00 EDT, Tablet, [facility]/pharmacy #[id number], Partial fill upon patient [...] 10:23:00 EDT, Route to Pharmacy Electronically, [facility]/pharmacy #[id number], Partial fill upon patient [...] 0 Refills, Maintenance, 05/17/21 14:42:00 EDT, [facility]/pharmacy #[id number], Partial fill upon patient request if the prescription is for a schedule II opioid drug. dx MS and Redundant... Start Date: 05/17/21 Status: Ordered furosemide 40 mg oral tablet 40 mg, 1, tablet, By Mouth, Daily, # 90 tablet, Refills 2, Tot. Refills 2, Maintenance, 04/05/21 13:39:00 EDT, Route to Pharmacy Electronically, [facility], Partial fill upon patient request if the prescription is for a schedule... Start Date: 04/05/21 Stop Date: 05/05/21 Status: Ordered gabapentin 250 mg/5 mL oral solution 12 mL = 600 mg, By Mouth, 4 times a day, # 1,440 mL, 0 Refills, Maintenance, 02/18/21 10:22:00 EDT,Liquid, [facility]/pharmacy #[id number], Partial fill upon patient request if the prescription is for a scheduleII opioid drug. Ok to dispense similar quantity if... Start Date: 02/18/21 Stop Date: 03/20/21 Status: Ordered levothyroxine 0.088 mg oral tablet 1 tablet = 88 mcg, By Mouth, Daily, # 90 tablet, 1 Refills, Maintenance, 04/05/21 13:40:00 EDT, Tablet, [facility], Partial fill upon patient request if the prescription is fora schedule II opioid drug., 153, cm, 04/04/21 9:04:... Start Date: 04/05/21 Status: Ordered lisinopril 5 mg oral tablet 5 mg, 1, tablet, By Mouth, Daily, # 90 tablet, Refills 1, Tot. Refills 1, Maintenance, 04/05/21 13:40:00 EDT, Route to Pharmacy Electronically, [facility] [...] 1 Refills, Maintenance, 04/05/21 13:35:00 EDT, [facility]/pharmacy #[id number], Partial fill upon patient [...] Refills, Maintenance, 05/18/21 7:27:00 EDT, Tablet, [facility]/pharmacy #[id number], Partial fill upon patient [...]
--- OUTSIDE RECORDS SUMMARY | 2024-03-17 13:35 | XMS_ITS | Continuity of Care Document ---
Author Organization [facility] Address [address] [place] [address]- Care Team Providers Care Rubber Splicer Name Role Phone Jason CENTENO, Efrem Pickering Primary Care Physician Encounter [facility] Date(s): 12/08/20 - 12/15/20 [facility] [address] [place] [id number] Attending Physician: Navin LIM, Win Toro Allergies, [...]
--- OUTSIDE RECORDS SUMMARY | 2024-03-17 13:35 | XMS_ITS | Continuity of Care Document ---
Author Organization [facility] Address [address] [place] [address]- Care Team Providers Care Kalsominer Name Role Phone Juan Manuel LIM, Kristen Acosta Primary Care Physic juan alberto Encounter [facility] Date(s): 08/18/22 - 09/17/[address] [address]- Allergies, Adverse Reactions, Alerts Substance Reaction Severity Status morphine hives, SOB Active Wellbutrin rash Active Reglan Active contrast media (iodine-based) itching throughout body Active penicillins hive Active cannabis (Schedule I substance) itching/vomiting Active Other Environmental Allergy mercury-fillings Active Immunizations Given and Recorded Vaccine Date Status Refusal Reason pneumococcal 20-valent conjugate vaccine 05/30/22 Recorded [id number] 12y+ bivalent booster vax 05/12/22 Recorded influenza virus vaccine, inactivated 03/29/22 Arnoldo rded influenza virus vaccine, inactivated 04/10/21 Arnoldo rded influenza virus vaccine, inactivated 04/03/20 Arnoldo rded influenza virus vaccine, inactivated 05/13/19 Arnoldo rded influenza virus vaccine, inactivated 04/16/18 Arnoldo rded influenza virus vaccine, inactivated 05/07/17 Aronldo rded influenza virus vaccine, inactivated 04/19/16 Arnoldo rded influenza virus vaccine, inactivated 04/12/15 Arnoldo rded influenza virus vaccine, inactivated 04/01/13 Arnoldo rded influenza virus vaccine, inactivated 04/01/12 Arnoldo rded influenza virus vaccine, inactivated 04/26/09 Arnoldo rded SARS-CoV-2 mRNA (dcmiegh-heif-bzklq) vax 03/10/22 Recorded SARS-CoV-2 mRNA (iuyutla-pyjm-iqolh) vax 10/04/21 Recorded SARS-CoV-2 (COVID-19) mRNA BNT-162b2 [...] tablet, 0 Refills, Maintenance, 09/13/22 9:11:00EST, Tablet, [facility]/pharmacy #[id number], Partial fill upon patient request if the prescription is for a schedule II opioid drug., 155, cm, 07/12/22 14:10:00 ES... Start Date: 09/13/22 Status: Ordered baclofen 20 mg oral tablet 20 mg, 1, tablet, By Mouth, 3 times a day, # 270 tablet, Refills 2, Tot. Refills 2, Maintenance, 12/09/22 12:44:00 EDT, Route to Pharmacy Electronically, [facility], Partial fill upon patient request if the prescription is for a... Start Date: 12/09/22 Stop Date: 09/05/23 Status: Ordered baclofen 20 mg oral tablet 20 mg, 1, tablet, By Mouth, 3 times a day, for 90 days, # 270 tablet, Refills 2, Tot. Refills 2, Hard Stop 12/09/22 12:44:00 EDT, 03/14/22 12:44:00 EDT, Route to Pharmacy Electronically, [facility]/pharmacy#[id number], Partial fill upon patient request if [...] 3 Refills, Maintenance, 04/02/22 21:13:00 EDT, Gel, [facility]... Start Date: 04/02/22 Status: [...] 01/11/22 13:45:00 EDT, Route to Pharmacy Electronically, [facility]... Start Date: 01/11/22 Status: Ordered [...] Tot. Refills 2, Maintenance, 20-30mmghg FF Petite (short),Rimbg-cly-cvca, soft knee, black silicone Stock code [id number] Part #47180, Size III. [facility] [id number], 12/07/21 11:32:00 EDT,... Start Date: 12/07/21 Status: Ordered levothyroxine 0.088 mg oral tablet 1 tablet = 88 mcg, By Mouth, Daily, # 90 tablet, 1 Refills, Maintenance, 09/08/22 14:26:00 EST, Tablet, [facility], Partial fill upon patient request if the prescription is fora schedule II opioid drug., 155, cm, 07/12/22 14:10... Start Date: 09/08/22 Status: Ordered lisinopril 5 mg oral tablet 5 mg, 1, tablet, By Mouth, Daily, # 90 tablet, Refills 3, Tot. Refills 3, Maintenance, 02/24/22 15:53:00 EDT, Route to Pharmacy Electronically, [facility]/pharmacy #[id number], Partial fill upon patient request if the prescription is for a schedule II opioid drug.... Start Date: 02/24/22 Status: Ordered Mapap 500 mg oral capsule See Instructions, TAKE 2 CAPSULES BY MOUTH 4 TIMES A DAY NEEDED FOR PAIN, # 480 capsule, 3 Refills, Maintenance, 06/04/22 16:03:00 EDT, [facility] STORE [id number], 155, cm, 05/25/22 13:44:00 EDT, Height, 93.4, kg, 11/01/21 16:52:00 EDT, Dry Weight Start Date: 06/04/22 Status: Ordered Potassium Chloride (Eqv-K-Tab) 20 mEq oral tablet, extended release 1 tablet = 20 mEq, By Mouth, Daily, for low potassium, # 10 tablet, 0 Refills, Maintenance, 03/02/22 19:14:00 EDT, [facility]/pharmacy #[id number], Partial fill upon patient request if the prescription is for a schedule II opioid drug., 155, cm, 02/23/22 8:04:00 E... Start Date: 03/02/22 Stop Date: 03/12/22 Status: Ordered Power [place] Lift with [place] split-leg sling Power [place] Lift with [place] split-leg sling, See Instructions, # 1 each, [...] 18 tablet, 0Refills, Maintenance, 08/24/22 17:06:00 EST, [facility]/pharmacy #[id number], Partial fill upon [...] 11/01/22 17:46:00 EDT, 07/12/22 17:46:00 EST, [id number] upon pa... Start Date: 07/12/22 Stop Date: 11/01/22 Status: Ordered Provigil 200 mg oral tablet 1 tablet = 200 mg, By Mouth, 2 times a day, takes in am and lunchtime brand name only - dispense aswritten, # 56 tablet, 0 Refills, Maintenance, 09/07/22 14:36:00 EST, Tablet, [facility]/pharmacy #[id number], Partial [...] 90 capsule, 2 Refills, 02/28/22 8:13:00 EDT, [facility]/pharmacy #[id number], 155,cm, 02/23/22 8:04:00 EDT, Height, 93.4, kg, 11/01/21 16:52:00 EDT, Dry Weight Start Date: 02/28/22 Status: Ordered Xarelto 20 mg oral tablet 1 tablet = 20 mg, By Mouth, Daily at supper, # 90 tablet, 3 Refills, Maintenance, 02/01/22 12:42:00EDT, Tablet, [facility], Partial fill upon patient request [...] Member Role: Primary Care Nurse Address: Address: [address] [place] [address] [address] [place] [address]- [place] Name: Emma Mendoza RN Position: [facility] RN Member Role: Primary Care Nurse Name: Juan Manuel LIM, Kristen Acosta Position: [facility] Primary Care Physician Member Role: PCP Address: Address: [address] [place] [address]- Name: Jade Medina Position: [facility] RN Member Role: Primary Care Nurse Name: Komal Goodrich Position: [facility] Outreach Member Role: Lifetime Consulting Physician Name: Godfrey Cano Position: [facility] RN Member Role: Primary Care Nurse Name: Anette Miranda RN Position: [facility] Onco RN Member Role: Primary Care Nurse Care Team Related Persons Name: DIOMEDES WARNER Address: [address] [place] [address] Name: MOO HOWELL Address: [address] [place] [address] Name: MARLON GENTILE
--- OUTSIDE RECORDS SUMMARY | 2024-03-17 13:35 | XMS_ITS | Continuity of Care Document ---
Author Organization [facility] Address [address] [place] [address]- Care Team Providers Care Screen Tender Helper Name Role Phone Juan Manuel LIM, Kristen Acosta Primary Care Physic juan alberto Encounter [facility] Date(s): 03/31/22 - 04/30/22 [facility] [address] [place] [address]- Attending Physician: AdmAlissa fisher Admitting Physician: Admtr, [id number] Referring Physician: Admtr, [id number] Allergies, Adverse Reactions, [...] Arnoldo rded influenza virus vaccine, inactivated 04/03/20 Anroldo rded influenza virus vaccine, inactivated 05/13/19 Arnoldo rded influenza virus vaccine, inactivated 04/16/18 Arnoldo rded influenza virus vaccine, inactivated 05/07/17 Arnoldo rded influenza virus vaccine, inactivated 04/19/16 Arnoldo rded influenza virus vaccine, inactivated 04/12/15 Arnoldo rded influenza virus vaccine, inactivated 04/01/13 Arnoldo rded influenza virus vaccine, inactivated 04/01/12 Arnoldo rded influenza virus vaccine, inactivated 04/26/09 Arnoldo rded SARS-CoV-2 mRNA (glndhey-buwq-rhkij) vax 03/10/22 Recorded SARS-CoV-2 mRNA (khiyptz-dbmt-vnqsd) vax 10/04/21 Recorded SARS-CoV-2 (COVID-19) mRNA BNT-162b2 [...] 12/09/22 12:44:00 EDT, Route to Pharmacy Electronically, [facility], Partial fill upon [...] 01/06/23 14:02:00 EDT, 01/11/22 14:02:00 EDT, Tablet, [facility] [...] 3 Refills, Maintenance, 04/02/22 21:13:00 EDT, Gel, [facility]... Start Date: 04/02/22 Status: Ordered [...] 01/11/22 13:45:00 EDT, Route to Pharmacy Electronically, [facility]... Start Date: 01/11/22 Status: [...] 02/20/22 7:44:00 EDT, Route to Pharmacy Electronically, [facility]/pharmacy#[id number], Partial fill upon patient request if the pre... Start Date: 02/20/22 Stop Date: 05/21/22 Status: Ordered Juzo Compression Hose Juzo Compression Hose, See Instructions, # 2 each, Refills 2, Tot. Refills 2, Maintenance, 20-30mmghg FF Petite (short),Oopzd-qmh-ebnu, soft knee, black silicone Stock code [id number] Part #[id number], Size III. [facility] [id number], 12/07/21 11:32:00 EDT,... Start Date: 12/07/21 Status: [...] 02/24/22 15:53:00 EDT, Route to Pharmacy Electronically, [facility]/pharmacy #[id number], Partial fill upon patient request if the prescription is for a schedule II opioid drug.... Start Date: 02/24/22 Status: Ordered Potassium Chloride (Eqv-K-Tab) 20 mEq oral tablet, extended release 1 tablet = 20 mEq, By Mouth, Daily, for low potassium, # 10 tablet, 0 Refills, Maintenance, 03/02/22 19:14:00 EDT, [facility]/pharmacy #[id number], Partial fill upon patient request if the prescription is for a schedule II opioid drug., 155, cm, 02/23/22 8:04:00 E... Start Date: 03/02/22 Stop Date: 03/12/22 Status: Ordered Power [place] Lift with [place] split-leg sling Power [place] Lift with [place] split-leg sling, See Instructions, # 1 each, [...] 3 Refills, Maintenance, 02/28/22 8:12:00 EDT, Tablet, [facility]/pharmacy #[id number], Partial fill [...] 90 capsule, 2 Refills, 02/28/22 8:13:00 EDT, [facility]/pharmacy #[id number], 155,cm, 02/23/22 8:04:00 EDT, [...] Name: Juan Manuel LIM, Kristen Acosta [facility] [address]
--- OUTSIDE RECORDS SUMMARY | 2024-03-17 13:35 | XMS_ITS | Continuity of Care Document ---
Author Organization [facility] Address [address] [place] [address]- Care Team Providers Care [place]ra [place]ta Roofer Helper Name Role Phone Juan Manuel LIM, Kristen Acosta Primary Care Physic juan alberto Encounter [facility] Date(s): 08/31/22 - 09/30/22 [facility] [address] [place] [address]- Allergies, Adverse Reactions, Alerts Substance Reaction Severity Status morphine hives, SOB Active penicillins hive Active Wellbutrin rash Active Reglan Active cannabis (Schedule I substance) itching/vomiting Active Other Environmental Allergy mercury-fillings Active contrast media (iodine-based) itching throughout body Active Immunizations Given and Recorded Vaccine Date Status Refusal Reason pneumococcal 20-valent conjugate vaccine 05/30/22 Recorded [id number] 12y+ bivalent booster vax 05/12/22 Recorded influenza [...] vaccine, inactivated 04/26/09 Arnoldo rded SARS-CoV-2 mRNA (srbvtkn-evrc-ktqqm) vax 03/10/22 Recorded SARS-CoV-2 mRNA (gumkjig-shyl-oytwl) vax 10/04/21 Recorded SARS-CoV-2 (COVID-19) mRNA BNT-162b2 [...] tablet, 0 Refills, Maintenance, 09/13/22 9:11:00EST, Tablet, [facility]/pharmacy #[id number], Partial fill upon patient request if the prescription is for a schedule II opioid drug., 155, cm, 07/12/22 14:10:00 ES... Start Date: 09/13/22 Status: Ordered baclofen 20 mg oral tablet 20 mg, 1, tablet, By Mouth, 3 times a day, # 270 tablet, Refills 2, Tot. Refills 2, Maintenance, 12/09/22 12:44:00 EDT, Route to Pharmacy Electronically, [facility], Partial fill upon patient request if the prescription is for a... Start Date: 12/09/22 Stop Date: 09/05/23 Status: Ordered baclofen 20 mg oral tablet 20 mg, 1, tablet, By Mouth, 3 times a day, for 90 days, # 270 tablet, Refills 2, Tot. Refills 2, Hard Stop 12/09/22 12:44:00 EDT, 03/14/22 12:44:00 EDT, [id number] Partial fill upon patient request if the pre... Start Date: 03/14/22 Stop Date: 12/09/22 Status: Ordered bifidobacterium-lactobacillus oral tablet 2 tablet, By Mouth, 2 times a day, [facility] Brand please ([facility]), # 360 tablet, 3 Refills, Maintenance, 08/11/21 17:02:00 EST, Tablet, [facility]/pharmacy #[id number], Partial fill upon patient request if the prescription is for a schedule II opioid drug., 2... Start Date: 08/11/21 Stop Date: 08/06/22 Status: Ordered calcium carbonate 600 mg oral tablet 1 tablet = 600 mg, By Mouth, 2 times a day, # 180 tablet, 2 Refills, Maintenance, 01/06/23 14:02:00EDT, Tablet, [facility]/pharmacy #[id number], Partial fill upon patient [...] 8:43:55 EST Start Date: 07/09/18 Status: Ordered [facility] SENIOR PROBIOTIC CAPSULE TAKE 2 CAPSULES BY MOUTH TWICE A DAY Start Date: 11/01/21 Status: Ordered [facility] Senior Probiotic Capsule [facility] Senior Probiotic Capsule, See Instructions, # [...] 450 mL, 5 Refills, 03/02/22 8:08:00 EDT, [facility]/pharmacy #[id number], 155, cm, 02/23/22 8:04:00 [...] Refills, Soft Stop, 05/26/22 8:59:00 EDT, Tablet, [facility]/pharmacy #[id number], Partial fill upon patient [...] [facility] Start Date: 01/11/22 Status: Ordered gabapentin 300 mg oral capsule 300 mg, 1, capsule, By Mouth, 3 times a day, for 90 days, # 270 capsule, Refills 2, Tot. Refills 2,Hard Stop 02/15/23 7:44:00 EDT, 05/21/22 7:44:00 EDT, Route to Pharmacy Electronically, [facility], Partial fill upon patient re... Start Date: 05/21/22 Stop Date: 02/15/23 Status: Ordered gabapentin 300 mg oral capsule 300 mg, 1, capsule, By Mouth, 3 times a day, # 270 capsule, Refills 2, Tot. Refills 2, Maintenance,02/15/23 7:44:00 EDT, Route to Pharmacy Electronically, [facility], Partial fill upon patient request if the prescription is for... Start Date: 02/15/23 Stop Date: 11/12/23 Status: Ordered Juzo Compression Hose Juzo Compression Hose, See Instructions, # 2 each, Refills 2, Tot. Refills 2, Maintenance, 20-30mmghg FF Petite (short),Zyoow-yqj-uand, soft knee, black silicone Stock code [id number] Part #[id number], Size III. [facility] [id number], 12/07/21 11:32:00 EDT,... Start Date: 12/07/21 Status: Ordered levothyroxine 0.088 mg oral tablet 1 tablet = 88 mcg, By Mouth, Daily, # 90 tablet, 1 Refills, Maintenance, 09/08/22 14:26:00 EST, Tablet, [facility], Partial fill upon patient request if the prescription is fora schedule II opioid drug., 155, cm, 07/12/22 14:10... Start Date: 09/08/22 Status: Ordered lisinopril 5 mg oral tablet 5 mg, 1, tablet, By Mouth, Daily, # 90 tablet, Refills 3, Tot. Refills 3, Maintenance, 02/24/22 15:53:00 EDT, Route to Pharmacy Electronically, [facility]/pharmacy #[id number], Partial fill upon patient request if the prescription is for a schedule II opioid drug.... Start Date: 02/24/22 Status: Ordered lisinopril 5 mg oral tablet See Instructions, TAKE 1 TABLET DAILY, # 90 tablet, Refills 1, Maintenance, 09/24/22 19:24:00 EST, Instructions Replace Required Details, Route to Pharmacy Electronically, [facility], 155, cm, 07/12/22 14:10:00 EST, Height, 93.4, k... Start Date: 09/24/22 Status: Ordered Mapap 500 mg oral capsule See Instructions, TAKE 2 CAPSULES BY MOUTH 4 TIMES A DAY NEEDED FOR PAIN, # 480 capsule, 3 Refills, Maintenance, 06/04/22 16:03:00 EDT, [facility]ORE [id number], 155, cm, 05/25/22 13:44:00 EDT, Height, 93.4, kg, 11/01/21 16:52:00 EDT, Dry Weight Start Date: 06/04/22 Status: Ordered Power [place] Lift with [place] split-leg sling Power [place] Lift with [place] split-leg sling, See Instructions, # 1 each, [...] 11/01/22 17:46:00 EDT, 07/12/22 17:46:00 EST, Tablet, [facility]/pharmacy #[id number], Partial fill upon pa... Start Date: 07/12/22 Stop Date: 11/01/22 Status: Ordered Provigil 200 mg oral tablet 1 tablet = 200 mg, By Mouth, 2 times a day, takes in am and lunchtime brand name only - dispense aswritten, # 56 tablet, 0 Refills, Maintenance, 09/07/22 14:36:00 EST, Tablet, [facility]/pharmacy #[id number], Partial fill upon patient [...] 10/25/22 18:25:00 EDT, 07/05/22 18:25:00 EST, Tablet, [facility], Parti... Start Date: 07/05/22 [...] 90 capsule, 2 Refills, 02/28/22 8:13:00 EDT, [facility]/pharmacy #[id number], 155,cm, 02/23/22 8:04:00 EDT, Height, 93.4, kg, 11/01/21 16:52:00 EDT, Dry Weight Start Date: 02/28/22 Status: Ordered Xarelto 20 mg oral tablet 1 tablet = 20 mg, By Mouth, Daily at supper, # 90 tablet, 3 Refills, Maintenance, 02/01/22 12:42:00EDT, Tablet, [facility], Partial fill upon [...] Member Role: Primary Care Nurse Address: Address: [address] [place] [address] [address] [place] [address]- [place] Name: Emma Mendoza RN Position: [facility] RN Member Role: Primary Care Nurse Name: Juan Manuel LIM, Kristen Acosta Position: [facility] Primary Care Physician Member Role: PCP Address: Address: [address] [place] [address]- Name: Jade Medina Position: [facility] RN Member Role: Primary Care Nurse Name: Komal Goodrich Position: [facility] Outreach Member Role: Lifetime Consulting Physician Name: Godfrey Cano Position: [facility] RN Member Role: Primary Care Nurse Name: Anette Miranda RN Position: [facility] Onco RN Member Role: Primary Care Nurse Care Team Related Persons Name: DIOMEDES WARNER Address: home [address] [place] [address] Name: MOO HOWELL Address: [address] [place] [address] Name: MARLON GENTILE
--- OUTSIDE RECORDS SUMMARY | 2024-03-17 13:35 | XMS_ITS | Continuity of Care Document ---
Author Organization [facility] Address [address], [address] [place] [address]- Care Team Providers Care Nonfarm Animal Caretaker Name Role Phone Juan Manuel LIM, Kristen Acosta Primary Care Physic juan alberto Encounter [facility] Date(s): 05/16/23 - 06/15/23 [facility] [address] [place] [address]- Allergies, Adverse Reactions, Alerts Substance Reaction Severity Status morphine hives, SOB Active Wellbutrin rash Active contrast media (iodine-based) itching throughout body Active penicillins hive Active Reglan Active cannabis (Schedule I substance) itching/vomiting Active Other Environmental Allergy mercury-fillings Active Immunizations Given and Recorded Vaccine Date Status Refusal Reason pneumococcal 20-valent conjugate vaccine 05/30/22 Recorded [id number] 12y+ bivalent booster vax 05/12/22 Recorded influenza [...] vaccine, inactivated 04/26/09 Arnoldo rded SARS-CoV-2 mRNA (rhexdiu-isea-iyqgn) vax 03/10/22 Recorded SARS-CoV-2 mRNA (luhsqaw-byql-tdwsk) vax 10/04/21 Recorded SARS-CoV-2 (COVID-19) mRNA BNT-162b2 [...] 1 Refills, Maintenance, 12/11/22 17:34:00 EDT, Tablet, [facility]/pharmacy #[id number], Partial fill upon patient request if the prescription is for a schedule II opioid drug., 155, cm, 10/10/22 13:40:00 E... Start Date: 12/11/22 Status: Ordered baclofen 20 mg oral tablet 20 mg, 1, tablet, By Mouth, 3 times a day, # 270 tablet, Refills 2, Tot. Refills 2, Maintenance, 12/09/22 12:44:00 EDT, Route to Pharmacy Electronically, [facility], Partial fill upon patient request if the prescription is for a... Start Date: 12/09/22 Stop Date: 09/05/23 Status: Ordered bifidobacterium-lactobacillus oral tablet 2 tablet, By Mouth, 2 times a day, [facility] Brand please ([facility]), # 360 tablet, 3 Refills, Maintenance, 08/11/21 17:02:00 EST, Tablet, [facility]/pharmacy #[id number], Partial fill upon patient request if the prescription is for a schedule II opioid drug., 2... Start Date: 08/11/21 Stop Date: 08/06/22 Status: Ordered calcium carbonate 600 mg oral tablet 1 tablet = 600 mg, By Mouth, 2 times a day, # 180 tablet, 2 Refills, Maintenance, 01/06/23 14:02:00EDT, Tablet, [facility]/pharmacy #[id number], Partial fill upon patient request if the prescription is for a schedule II opioid drug., 155, cm, 02/23/22 8:04:00 EDT... Start Date: 01/06/23 Stop Date: 10/03/23 Status: Ordered Centrum Silver Ultra Women's oral tablet 1 tablet, By Mouth, Daily, 0 Refills, Maintenance, 07/09/18 8:43:55 EST Start Date: 07/09/18 Status: Ordered [facility] SENIOR PROBIOTIC CAPSULE TAKE 2 CAPSULES BY MOUTH TWICE A DAY Start Date: 11/01/21 Status: Ordered [facility] Senior Probiotic Capsule [facility] Senior Probiotic [...] 450 mL, 5 Refills, 03/02/22 8:08:00 EDT, [facility]/pharmacy #[id number], 155, cm, 02/23/22 8:04:00 EDT, [...] Refills, Soft Stop, 03/27/23 18:43:00 EDT, Tablet, [facility]/pharmacy #[id number], Partial fill upon patient request if the prescription is for a schedule II opioid... Start Date: 03/27/23 Status: Ordered fluconazole 150 mg oral tablet 1 tablet = 150 mg, By Mouth, Every week, # 4 tablet, 1 Refills, Soft Stop, 05/26/22 8:59:00 EDT, Tablet, [facility]/pharmacy #[id number], Partial fill upon patient [...] 2, Maintenance, Juzo Compression Hose 2 pairs ztisf-nyw-ojzy Soft Knee FF Petite 20-30 mmHg Silicone, Black Stock Code [id number] I I I Part #[id number] Size I I I SKU... Start Date: 03/12/23 Status: Ordered levothyroxine 0.088 mg oral tablet 1 tablet = 88 mcg, By Mouth, Daily, # 90 tablet, 3 Refills, Maintenance, 03/15/23 17:17:00 EDT, Tablet, [facility], 155, cm, 03/15/23 17:11:00EDT, Height, 93.4, kg, 11/01/21 16:52:00 EDT, Dry W... Start Date: 03/15/23 Status: Ordered Mapap 500 mg oral capsule See Instructions, TAKE 2 CAPSULES BY MOUTH 4 TIMES A DAY NEEDED FOR PAIN, # 480 capsule, 0 Refills, Maintenance, 03/12/23 9:16:00 EDT, [facility]/pharmacy #[id number], 155, cm, 10/10/22 13:40:00 EST, Height, 93.4, kg, 11/01/21 16:52:00 EDT, Dry Weight Start Date: 03/12/23 Status: Ordered Power [place] Lift with [place] split-leg sling Power [place] Lift with [place] split-leg sling, See Instructions, # 1 each, [...] 5 Refills, Maintenance, 12/11/22 17:34:00 EDT, Tablet, [facility]/pharmacy #[id number], Partial fill upon patient [...] Team Personnel Name: Juliann Rich RN Position: [facility] RN Member Role: Primary Care Nurse Name: Elsa Allen NP Position: Reference Physician Member Role: Primary Care Nurse Address: Address: [address] [place] [address] [address] [place] [address]- Name: Emma Mendoza RN Position: [facility] AMB Nurse Member Role: Primary Care Nurse Name: Juan Manuel LIM, Kristen Acosta Position: [facility] Physician - Primary Care Member Role: PCP Address: Address: [address] [place] [id number] Name: Komal Goodrich Position: [facility] Outreach Member Role: Lifetime Consulting Physician Name: Godfrey Cano Position: [facility] RN Member Role: Primary Care Nurse Name: Anette Miranda RN Position: [facility] Onco RN Member Role: Primary Care Nurse Care Team Related Persons Name: DIOMEDES WARNER Address: [address] [place] [address] Name: MOO HOWELL Address: [address] [place] [address] Name: MARLON GENTILE
--- OUTSIDE RECORDS SUMMARY | 2024-03-17 13:35 | XMS_ITS | Continuity of Care Document ---
Author Organization [facility] Address [address] [place] [address]- Care Team Providers Care Oceanology Teacher Name Role Phone Juan Manuel LIM, Kristen Acosta Primary Care Physic juan alberto Encounter [facility] Date(s): 05/08/22 - 06/07/[address] [id number] Allergies, Adverse Reactions, Alerts Substance Reaction [...] vaccine, inactivated 04/26/09 Arnoldo rded SARS-CoV-2 mRNA (bjljlcw-oivk-keqql) vax 03/10/22 Recorded SARS-CoV-2 mRNA (yxphtne-xqrp-dmzpq) vax 10/04/21 Recorded SARS-CoV-2 (COVID-19) mRNA BNT-162b2 [...] tablet, 2 Refills, Maintenance, 02/28/22 8:12:00EDT, Tablet, [facility]/pharmacy #[id number], Partial fill upon patient request if the prescription is for a schedule II opioid drug., 155, cm, 02/23/22 8:04:00 EDT... Start Date: 02/28/22 Status: Ordered baclofen 20 mg oral tablet 20 mg, 1, tablet, By Mouth, 3 times a day, # 270 tablet, Refills 2, Tot. Refills 2, Maintenance, 12/09/22 12:44:00 EDT, Route to Pharmacy Electronically, [facility] [...] 03/14/22 12:44:00 EDT, Route to Pharmacy Electronically, [facility]/pharmacy#[id number], Partial fill upon patient request if the pre... Start Date: 03/14/22 Stop Date: 12/09/22 Status: Ordered bifidobacterium-lactobacillus oral tablet 2 tablet, By Mouth, 2 times a day, [facility] Brand please ([facility]), # 360 tablet, 3 Refills, Maintenance, 08/11/21 17:02:00 EST, Tablet, [facility]/pharmacy #[id number], Partial fill upon patient request if the prescription is for a schedule II opioid drug., 2... Start Date: 08/11/21 Stop Date: 08/06/22 Status: Ordered calcium carbonate 600 mg oral tablet 1 tablet = 600 mg, By Mouth, 2 times a day, # 180 tablet, 2 Refills, Maintenance, 01/06/23 14:02:00EDT, Tablet, [facility]/pharmacy #[id number], Partial fill upon patient request [...] 01/06/23 14:02:00 EDT, 01/11/22 14:02:00 EDT, Tablet, [facility], Partial fill [...] 07/25/22 8:59:00 EST, 05/26/22 8:59:00 EDT, Cream, [facility]/pharmacy #[id number], Partial fill upon patient request if the prescription is for a schedule II opioid drug., 1 applicat... Start Date: 05/26/22 Stop Date: 07/25/22 Status: Ordered [facility] SENIOR PROBIOTIC CAPSULE TAKE 2 CAPSULES BY MOUTH TWICE A DAY Start Date: 11/01/21 Status: Ordered diclofenac 1% topical gel 1 application, Topically, 4 times a day, Apply 4 gram QID prn to affected pain to dropped foot - not to exceed 16 grams/day/single joint of lower extremities, # 100 Gm, 3 Refills, Maintenance, 04/02/22 21:13:00 EDT, Gel, [facility]... Start Date: 04/02/22 Status: Ordered [...] 450 mL, 5 Refills, 03/02/22 8:08:00 EDT, [facility]/pharmacy #[id number], 155, cm, 02/23/22 8:04:00 EDT, [...] Refills, Soft Stop, 05/26/22 8:59:00 EDT, Tablet, [facility]/pharmacy #[id number], Partial fill upon patient request [...] 01/02/22 9:03:00 EDT, Route to Pharmacy Electronically, [facility] [...] Maintenance,05/21/22 7:44:00 EDT, Route to Pharmacy Electronically, [facility], Partial fill upon patient request if the prescription is for... Start Date: 05/21/22 Stop Date: 02/15/23 Status: Ordered Juzo Compression Hose Juzo Compression Hose, See Instructions, # 2 each, Refills 2, Tot. Refills 2, Maintenance, 20-30mmghg FF Petite (short),Gkbmq-rpd-mxth, soft knee, black silicone Stock code [id number] Part #[id number], Size III. [facility] [id number], 12/07/21 11:32:00 EDT,... Start Date: 12/07/21 Status: Ordered levothyroxine 0.088 mg oral tablet 1 tablet = 88 mcg, By Mouth, Daily, # 90 tablet, 3 Refills, Maintenance, 03/31/22 13:45:00 EDT, Tablet, [facility], Partial fill upon patient request if the prescription is fora schedule II opioid drug., 155, cm, 03/14/22 11:11... Start Date: 03/31/22 Status: Ordered lisinopril 5 mg oral tablet 5 mg, 1, tablet, By Mouth, Daily, # 90 tablet, Refills 3, Tot. Refills 3, Maintenance, 02/24/22 15:53:00 EDT, Route to Pharmacy Electronically, [facility]/pharmacy #[id number], Partial fill upon patient request if the prescription is for a schedule II opioid drug.... Start Date: 02/24/22 Status: Ordered Mapap 500 mg oral capsule See Instructions, TAKE 2 CAPSULES BY MOUTH 4 TIMES A DAY NEEDED FOR PAIN, # 480 capsule, 3 Refills, Maintenance, 06/04/22 16:03:00 EDT, [id number], 155, cm, 05/25/22 13:44:00 EDT, Height, 93.4, kg, 11/01/21 16:52:00 EDT, Dry Weight Start Date: 06/04/22 Status: Ordered Potassium Chloride (Eqv-K-Tab) 20 mEq oral tablet, extended release 1 tablet = 20 mEq, By Mouth, Daily, for low potassium, # 10 tablet, 0 Refills, Maintenance, 03/02/22 19:14:00 EDT, [facility]/pharmacy #[id number], Partial fill upon patient request if the prescription is for a schedule II opioid drug., 155, cm, 02/23/22 8:04:00 E... Start Date: 03/02/22 Stop Date: 03/12/22 Status: Ordered Power [place] Lift with [place] split-leg sling Power [place] Lift with [place] split-leg sling, See Instructions, # 1 each, [...] 3 Refills, Maintenance, 02/28/22 8:12:00 EDT, Tablet, [facility]/pharmacy #[id number], Partial fill upon patient request [...] 90 capsule, 2 Refills, 02/28/22 8:13:00 EDT, [facility]/pharmacy #[id number], 155,cm, 02/23/22 8:04:00 EDT, Height, 93.4, kg, 11/01/21 16:52:00 EDT, Dry Weight Start Date: 02/28/22 Status: Ordered Xarelto 20 mg oral tablet 1 tablet = 20 mg, By Mouth, Daily at supper, # 90 tablet, 3 Refills, Maintenance, 02/01/22 12:42:00EDT, Tablet, [facility], [facility] [...] Juan Manuel LIM, Kristen Acosta Address: Address: [address], [place] [address]
--- OUTSIDE RECORDS SUMMARY | 2024-03-17 13:35 | XMS_ITS | Continuity of Care Document ---
Author Organization [facility] Address Unknown Care Team Providers Care Photocopying Machine Operator Name Role Phone Juan Manuel LIM, Kristen December Karla Primary Care Physic juan alberto [facility]counter [facility] Date[facility]s): 01/13/22 - 02/16/22 [facility] Attending Physician: Moody Maldonado MD Admitting Physician: Moody Maldonado MD Allergies, Adverse Reactions, Alerts Substance Reaction Severity Status morphine hives, SOB Active penicillins hive Active Wellbutrin rash Active Reglan Active cannabis (Schedule I substance) itching/vomiting Active Other Environmental Allergy mercury-fillings Active contrast media (iodine-based) itching throughout body Active Immunizations Given and Recorded Vaccine Date Status Refusal Reason SARS-CoV-2 mRNA (kldospj-ratq-bedrk) vax 10/04/21 Recorded influenza virus vaccine, inactivated [...] 17:46:00 EDT, 08/22/21 17:46:00 EST, Capsule, [facility]/pharmacy #[id number], Partial fill upon patient request if the prescription is for a schedul... Start Date: 08/22/21 Stop Date: 04/19/22 Status: Ordered ascorbic acid 1000 mg oral tablet 1 tablet = 1,000 mg, By Mouth, 2 times a day, # 90 tablet, 1 Refills, Maintenance, 08/11/21 17:03:00 EST, Tablet, [facility]/pharmacy #[id number], Partial fill upon patient request if the prescription is for a schedule II opioid drug., 153, cm, 06/27/21 7:47:00 ES... Start Date: 08/11/21 Status: Ordered baclofen 20 mg oral tablet 20 mg, 1, tablet, By Mouth, 3 times a day, # 360 tablet, Refills 1, Tot. Refills 1, Maintenance, 08/02/21 14:09:00 EST, Route to Pharmacy Electronically, [facility], Partial fill upon patient request if the prescription is for a... Start Date: 08/02/21 Status: Ordered bifidobacterium-lactobacillus oral tablet 2 tablet, By Mouth, 2 times a day, [facility] Brand please (Senior Wellness), # 360 tablet, 3 Refills, Maintenance, 08/11/21 17:02:00 EST, Tablet, [facility]/pharmacy #[id number], Partial fill upon patient request if the prescription is for a schedule II opioid drug., 2... Start Date: 08/11/21 Stop Date: 08/06/22 Status: Ordered calcium carbonate 600 mg oral tablet 1 tablet = 600 mg, By Mouth, 2 times a day, # 180 tablet, 3 Refills, Maintenance, 01/11/22 14:02:00EDT, Tablet, [facility], Partial fill upon patient request if the prescription is for a schedule II opioid drug., 155, cm, 01/02... Start Date: 01/11/22 Stop Date: 01/06/23 Status: Ordered Centrum Silver Ultra Women's oral tablet 1 tablet, By Mouth, Daily, 0 Refills, Maintenance, 07/09/18 8:43:55 EST Start Date: 07/09/18 Status: Ordered [facility] SENIOR PROBIOTIC CAPSULE TAKE 2 CAPSULES BY MOUTH TWICE A DAY Start Date: 11/01/21 Status: Ordered diclofenac 1% topical gel 1 application, Topically, 4 times a day, # 100 Gm, 3 Refills, Maintenance, 01/11/22 14:07:00 EDT, Gel, [facility], Partial fill upon [...] 450 mL, 0 Refills, 02/08/22 18:16:00 EDT, [facility]/pharmacy #[id number], 155, cm, 01/02/22 8:26:00 [...] 13:45:00 EDT, [facility] Start Date: 01/11/22 Status: Ordered gabapentin [...] Tot. Refills 2, Maintenance, 20-30mmghg FF Petite (short),Qvtxz-zkp-kfje, soft knee, black silicone Stock code [id number] Part #[id number], Size III. [facility] [id number], 12/07/21 11:32:00 EDT,... Start Date: 12/07/21 Status: Ordered levothyroxine 0.088 mg oral tablet 1 tablet = 88 mcg, By Mouth, Daily, # 90 tablet, 1 Refills, Maintenance, 07/13/21 14:09:00 EST, Tablet, [facility], Partial fill upon patient request if the prescription is fora schedule II opioid drug., 153, cm, 06/27/21 7:47:... Start Date: 07/13/21 Status: Ordered lisinopril 5 mg oral tablet 5 mg, 1, tablet, By Mouth, Daily, # 90 tablet, Refills 3, Tot. Refills 3, Maintenance, 01/11/22 13:42:00 EDT, Route to Pharmacy Electronically, [facility], Partial fill upon patient request if the prescription is for a schedule... Start Date: 01/11/22 Status: Ordered Power [place] Lift with [place] split-leg sling Power [place] Lift with [place] split-leg sling, See Instructions, # 1 each, [...] 1 Refills, Maintenance, 12/09/21 1:28:00 EDT, Tablet, [facility]/pharmacy #[id number], Partial fill upon patient [...] 90 capsule, 1 Refills, 08/11/21 17:04:00 EST, [facility]/pharmacy #[id number], 153, cm, 06/27/21 7:47:00 EST, Height Start Date: 08/11/21 Status: Ordered Xarelto 20 mg oral tablet 1 tablet = 20 mg, By Mouth, Daily at supper, # 90 tablet, 3 Refills, Maintenance, 02/01/22 12:42:00EDT, Tablet, [facility] [facility], Partial fill upon [...]
--- OUTSIDE RECORDS SUMMARY | 2024-03-17 13:35 | XMS_ITS | Continuity of Care Document ---
Author Organization [facility] Address [address] [place] [address]- Care Team Providers Care Mercury Cracking Tester Name Role Phone Juan Manuel LIM, Kristen Acosta Primary Care Physic juan albreto [facility]counter [facility] Date(s): 05/18/23 - 06/17/23 [facility] [address] [place] [address]- Allergies, Adverse Reactions, Alerts Substance Reaction Severity Status morphine hives, SOB Active penicillins hive Active Wellbutrin rash Active Reglan Active cannabis (Schedule I substance) itching/vomiting Active Other Environmental Allergy mercury-fillings Active contrast media (iodine-based) itching throughout body Active Immunizations Given and Recorded Vaccine Date Status Refusal Reason pneumococcal 20-valent conjugate vaccine 05/30/22 Recorded [id number] 12y+ bivalent booster vax 05/12/22 Recorded influenza [...] vaccine, inactivated 04/26/09 Arnoldo rded SARS-CoV-2 mRNA (lcwymsm-eign-zioqk) vax 03/10/22 Recorded SARS-CoV-2 mRNA (jayeyyy-cpmy-xtkid) vax 10/04/21 Recorded SARS-CoV-2 (COVID-19) mRNA BNT-162b2 [...] 1 Refills, Maintenance, 12/11/22 17:34:00 EDT, Tablet, [facility]/pharmacy #[id number], Partial fill upon patient request if the prescription is for a schedule II opioid drug., 155, cm, 10/10/22 13:40:00 E... Start Date: 12/11/22 Status: Ordered baclofen 20 mg oral tablet 20 mg, 1, tablet, By Mouth, 3 times a day, # 270 tablet, Refills 2, Tot. Refills 2, Maintenance, 12/09/22 12:44:00 EDT, Route to Pharmacy Electronically, [facility], Partial fill upon patient request if the prescription is for a... Start Date: 12/09/22 Stop Date: 09/05/23 Status: Ordered bifidobacterium-lactobacillus oral tablet 2 tablet, By Mouth, 2 times a day, [facility] Brand please (Senior Wellness), # 360 tablet, 3 Refills, Maintenance, 08/11/21 17:02:00 EST, Tablet, [facility]/pharmacy #[id number], Partial fill upon patient request if the prescription is for a schedule II opioid drug., 2... Start Date: 08/11/21 Stop Date: 08/06/22 Status: Ordered calcium carbonate 600 mg oral tablet 1 tablet = 600 mg, By Mouth, 2 times a day, # 180 tablet, 2 Refills, Maintenance, 01/06/23 14:02:00EDT, Tablet, [facility]/pharmacy #[id number], Partial fill upon patient request if the prescription is for a schedule II opioid drug., 155, cm, 02/23/22 8:04:00 EDT... Start Date: 01/06/23 Stop Date: 10/03/23 Status: Ordered Centrum Silver Ultra Women's oral tablet 1 tablet, By Mouth, Daily, 0 Refills, Maintenance, 07/09/18 8:43:55 EST Start Date: 07/09/18 Status: Ordered [facility] SENIOR PROBIOTIC CAPSULE TAKE 2 CAPSULES BY MOUTH TWICE A DAY Start Date: 11/01/21 Status: Ordered [facility] Senior Probiotic Capsule [facility] Senior Probiotic Capsule, See Instructions, # [...] 450 mL, 5 Refills, 03/02/22 8:08:00 EDT, [facility]/pharmacy #[id number], 155, cm, 02/23/22 8:04:00 EDT, [...] Refills, Soft Stop, 03/27/23 18:43:00 EDT, Tablet, [facility]/pharmacy #[id number], Partial fill upon patient request if the prescription is for a schedule II opioid... Start Date: 03/27/23 Status: Ordered fluconazole 150 mg oral tablet 1 tablet = 150 mg, By Mouth, Every week, # 4 tablet, 1 Refills, Soft Stop, 05/26/22 8:59:00 EDT, Tablet, [facility]/pharmacy #[id number], Partial fill upon patient request [...] 7:44:00 EDT, Route to Pharmacy Electronically, [facility], Partial fill upon patient request if the prescription is for... Start Date: 02/15/23 Stop Date: 11/12/23 Status: Ordered Juzo Compression Hose Juzo Compression Hose, See Instructions, # 2 each, Refills 2, Tot. Refills 2, Maintenance, Juzo Compression Hose 2 pairs [id number] Soft Knee FF Petite 20-30 mmHg Silicone, Black Stock Code [id number] I I I Part #[id number] Size I I I SKU... Start Date: 03/12/23 Status: Ordered levothyroxine 0.088 mg oral tablet 1 tablet = 88 mcg, By Mouth, Daily, # 90 tablet, 3 Refills, Maintenance, 03/15/23 17:17:00 EDT, Tablet, [facility], Partial fill upon patient request if the prescription is fora schedule II opioid drug., 155, cm, 03/15/23 17:11... Start Date: 03/15/23 Status: Ordered lisinopril 5 mg oral tablet 1, tablet, By Mouth, Daily, # 90 tablet, Refills 3, Tot. Refills 3, Maintenance, 03/15/23 17:16:00 EDT, Route to Pharmacy Electronically, [facility], 155, cm, 03/15/23 17:11:00EDT, Height, 93.4, kg, 11/01/21 16:52:00 EDT, Dry W... Start Date: 03/15/23 Status: Ordered Mapap 500 mg oral capsule See Instructions, TAKE 2 CAPSULES BY MOUTH 4 TIMES A DAY NEEDED FOR PAIN, # 480 capsule, 0 Refills, Maintenance, 03/12/23 9:16:00 EDT, [facility]/pharmacy #[id number], 155, cm, 10/10/22 13:40:00 EST, Height, 93.4, kg, 11/01/21 16:52:00 EDT, Dry Weight Start Date: 03/12/23 Status: Ordered Power [place] Lift with [place] split-leg sling Power [place] Lift with [place] split-leg sling, See Instructions, # 1 each, [...] 5 Refills, Maintenance, 12/11/22 17:34:00 EDT, Tablet, [facility]/pharmacy #[id number], Partial fill upon patient request [...] Member Role: Primary Care Nurse Address: Address: [address] [place] [address] [address] [place] [address]- Name: Emma Mendoza RN Position: [facility] AMB Nurse Member Role: Primary Care Nurse Name: Juan Manuel LIM, Kristen Acosta Position: [facility] Physician - Primary Care Member Role: PCP Address: Address: [address] [place] [address]- Name: Komal Goodrich Position: [facility] Outreach Member Role: Lifetime Consulting Physician Name: Godfrey Cano Position: [facility] RN Member Role: Primary Care Nurse Name: Anette Miranda RN Position: [facility] Onco RN Member Role: Primary Care Nurse Care Team Related Persons Name: DIOMEDES WARNER Address: home [address] [place] [address] Name: MOO HOWELL Address: [address] [place] [address] Name: MARLON GENTILE
--- OUTSIDE RECORDS SUMMARY | 2024-03-17 13:35 | XMS_ITS | Continuity of Care Document ---
Author Organization [facility] Address [address] [place] [address]- Care Team Providers Care Condominium Manager Name Role Phone Juan Manuel LIM, Kristen Acosta Primary Care Physic juan alberto [facility]): 03[facility] - [facility]/23/22 [facility] [address] [place], [place] [address] Allergies, Adverse Reactions, Alerts Substance Reaction Severity [...] vaccine, inactivated 04/26/09 Arnoldo rded SARS-CoV-2 mRNA (thxjxlc-wqyo-cjsqf) vax 03/10/22 Recorded SARS-CoV-2 mRNA (daeqjnf-uyaf-bmuwv) vax 10/04/21 Recorded SARS-CoV-2 (COVID-19) mRNA BNT-162b2 [...] 2 Refills, Maintenance, 02/28/22 8:12:00EDT, Tablet, [facility]/pharmacy #[id number], Partial fill upon patient [...] 12:44:00 EDT, Route to Pharmacy Electronically, [facility]/pharmacy#[id number], Partial fill upon patient request if the pre... Start Date: 03/14/22 Stop Date: 12/09/22 Status: Ordered bifidobacterium-lactobacillus oral tablet 2 tablet, By Mouth, 2 times a day, [facility] Brand please (Senior Wellness), # 360 tablet, 3 Refills, Maintenance, 08/11/21 17:02:00 EST, Tablet, [facility]/pharmacy #[id number], Partial fill upon patient request if the prescription is for a schedule II opioid drug., 2... Start Date: 08/11/21 Stop Date: 08/06/22 Status: Ordered calcium carbonate 600 mg oral tablet 1 tablet = 600 mg, By Mouth, 2 times a day, # 180 tablet, 2 Refills, Maintenance, 01/06/23 14:02:00EDT, Tablet, [facility]/pharmacy #[id number], Partial fill upon patient [...] 01/06/23 14:02:00 EDT, 01/11/22 14:02:00 EDT, Tablet, [facility], Partial fill upon patient request if the prescription is for a schedul... Start Date: 01/11/22 Stop Date: 01/06/23 Status: Ordered Centrum Silver Ultra Women's oral tablet 1 tablet, By Mouth, Daily, 0 Refills, Maintenance, 07/09/18 8:43:55 EST Start Date: 07/09/18 Status: Ordered [facility] SENIOR PROBIOTIC CAPSULE TAKE 2 CAPSULES BY MOUTH TWICE A DAY Start Date: 11/01/21 Status: Ordered diclofenac 1% topical gel 1 application, Topically, 4 times a day, Apply 4 gram QID prn to affected pain to dropped foot - not to exceed 16 grams/day/single joint of lower extremities, # 100 Gm, 3 Refills, Maintenance, 04/02/22 21:13:00 EDT, Gel, [facility] [place] [facility] Start Date: 04/02/22 Status: Ordered electric [...] mL, 5 Refills, 03/02/22 8:08:00 EDT, [facility]/pharmacy #[id number], 155, cm, 02/23/22 8:04:00 [...] [id number] Partial fill upon patient request if the pre... Start Date: 02/20/22 Stop Date: 05/21/22 Status: Ordered Juzo Compression Hose Juzo Compression Hose, See Instructions, # 2 each, Refills 2, Tot. Refills 2, Maintenance, 20-30mmghg FF Petite (short),Pmfks-ore-jbff, soft knee, black silicone Stock code [id number] Part #[id number], Size III. [facility] [id number], 12/07/21 11:32:00 EDT,... Start Date: 12/07/21 Status: Ordered levothyroxine 0.088 mg oral tablet 1 tablet = 88 mcg, By Mouth, Daily, # 90 tablet, 3 Refills, Maintenance, 03/31/22 13:45:00 EDT, Tablet, [facility], Partial fill upon patient request if the prescription is fora schedule II opioid drug., 155, cm, 03/14/22 11:11... Start Date: 03/31/22 Status: Ordered lisinopril 5 mg oral tablet 5 mg, 1, tablet, By Mouth, Daily, # 90 tablet, Refills 3, Tot. Refills 3, Maintenance, 02/24/22 15:53:00 EDT, [id number], Partial fill upon patient request if [...] 03/12/22 Status: Ordered Power [place] Lift with [place] split-leg sling Power [place] Lift with [place] split-leg sling, See Instructions, # 1 each, [...] tablet, 3 Refills, Maintenance, 02/01/22 12:42:00EDT, Tablet, [facility], [...] Name: Juan Manuel LIM, Kristen Acosta [facility] [address]
--- OUTSIDE RECORDS SUMMARY | 2024-03-17 13:36 | XMS_ITS | Continuity of Care Document ---
Author Organization [facility] Address [address] [place] [address]- Care Team Providers Care Die Cast Operator Name Role Phone Juan Manuel LIM, Kristen Acosta Primary Care Physic juan alberto Encounter [facility] Date(s): 02/28/22 - 03/07/22 [facility] [address] [place] [address]- Encounter Diagnosis Neurogenic bladder(Discharge Diagnosis) - 03/02/22 Paraplegia(Discharge Diagnosis) - 03/02/22 Hypothyroidism(Discharge Diagnosis) - 03/02/22 Hypertension(Discharge Diagnosis) - 03/02/22 Hiatal hernia(Discharge Diagnosis) - 03/02/22 Bilateral leg edema(Discharge Diagnosis) - 03/02/22 Hypokalemia(Discharge Diagnosis) - 03/02/22 Chronic anticoagulation(Discharge Diagnosis) - 03/02/22 Attending Physician: Omayra Hewitt MD Allergies, Adverse Reactions, Alerts Substance Reaction Severity Status morphine hives, SOB Active penicillins hive Active Wellbutrin rash Active Reglan Active cannabis (Schedule I substance) itching/vomiting Active contrast media (iodine-based) itching throughout body Active Other Environmental Allergy mercury-fillings Active Immunizations Given and Recorded Vaccine Date Status Refusal Reason SARS-CoV-2 mRNA (rynqopb-lycx-qqsgq) vax 10/04/21 Recorded influenza virus vaccine, inactivated 04/10/21 Arnoldo rded influenza virus vaccine, inactivated 04/03/20 Arnoldo rded influenza virus vaccine, inactivated 05/13/19 Arnoldo rded influenza virus vaccine, inactivated 04/16/18 Arnoldo rded influenza virus vaccine, inactivated 05/07/17 Anroldo rded influenza virus vaccine, inactivated 04/19/16 Arnoldo [...] tablet, 2 Refills, Maintenance, 02/28/22 8:12:00EDT, Tablet, [id number], Partial fill upon patient [...] 2 Refills, Maintenance, 01/06/23 14:02:00EDT[id number] patient [...] 01/06/23 14:02:00 EDT, 01/11/22 14:02:00 EDT, Tablet, [facility], Partial fill [...] 3 Refills, Maintenance, 01/11/22 14:07:00 EDT, Gel, [facility], Partial fill upon [...] 01/02/22 9:03:00 EDT, [facility], [facility] [...] 01/11/22 13:45:00 EDT, Route to Pharmacy Electronically, [facility]... Start Date: 01/11/22 Status: Ordered gabapentin 300 mg oral capsule 300 mg, 1, capsule, By Mouth, 3 times a day, # 90 capsule, Refills 2, Tot. Refills 2, Maintenance, 02/20/22 7:44:00 EDT, [id number] Partial fill upon patient request if the prescription is for a schedule II o... Start Date: 02/20/22 Stop Date: 05/21/22 Status: Ordered Juzo Compression Hose Juzo Compression Hose, See Instructions, # 2 each, Refills 2, Tot. Refills 2, Maintenance, 20-30mmghg FF Petite (short),Fagnd-dit-zdqw, soft knee, black silicone Stock code [id number] Part #[id number], Size III. [facility] [id number], 12/07/21 11:32:00 EDT,... Start Date: 12/07/21 Status: [...] 15:53:00 EDT, [id number] patient [...] tablet, 3 Refills, Maintenance, 02/01/22 12:42:00EDT, Tablet, [facility], Partial fill [...] embolism(Confirmed) Active Bladder spasm(Confirmed) Active Spasticity(Confirmed) Active Diagnosis Diagnosis Type Effective Dates Health Status Clinical Service Informant Neurogenic bladder Discharge Diagnosis 03/02/22 Paraplegia Discharge Diagnosis 03/02/22 Hypothyroidism Discharge Diagnosis 03/02/22 Hypertension Discharge Diagnosis 03/02/22 Hiatal hernia Discharge Diagnosis 03/02/22 Bilateral leg edema Discharge Diagnosis 03/02/22 Chronic anticoagulation Discharge Diagnosis 03/02/22 Hypokalemia Discharge Diagnosis 03/02/22 Social History Social History Type Response Smoking Status Never (less than 100 in lifetime) entered on: 10/31/21 Sex
--- OUTSIDE RECORDS SUMMARY | 2024-03-17 13:36 | XMS_ITS | Continuity of Care Document ---
Author Organization [facility] Address [address], [address] [place] [address]- Care Team Providers Care Strip Picker Name Role Phone Juan Manuel LIM, Kristen Acosta Primary Care Physic juan alberto Encounter [facility] [place] Date(s): 10/27/22 - 12/29/22 [facility] [address] [place] [address]- Attending Physician: David LIM, Rosita Small Referring [...] Reason pneumococcal 20-valent conjugate vaccine 05/30/22 Recorded [id number] 12y+ bivalent booster vax 05/12/22 Recorded influenza [...] vaccine, inactivated 04/26/09 Arnoldo rded SARS-CoV-2 mRNA ([id number]-utlx-kvdnn) vax 03/10/22 Recorded SARS-CoV-2 mRNA (ktaobjs-qndd-tccnz) vax 10/04/21 Recorded SARS-CoV-2 (COVID-19) mRNA BNT-162b2 [...] 1 Refills, Maintenance, 12/11/22 17:34:00 EDT, Tablet, [facility]/pharmacy #[id number], Partial fill upon patient request if the prescription is for a schedule II opioid drug., 155, cm, 10/10/22 13:40:00 E... Start Date: 12/11/22 Status: Ordered baclofen 20 mg oral tablet 20 mg, 1, tablet, By Mouth, 3 times a day, # 270 tablet, Refills 2, Tot. Refills 2, Maintenance, 12/09/22 12:44:00 EDT, Route to Pharmacy Electronically, [facility], Partial fill upon patient request if the prescription is for a... Start Date: 12/09/22 Stop Date: 09/05/23 Status: Ordered bifidobacterium-lactobacillus oral tablet 2 tablet, By Mouth, 2 times a day, [facility] Brand please (Senior Wellness), [...] tablet, 2 Refills, Maintenance, 01/06/23 14:02:00EDT, Tablet, [facility]/pharmacy #[id number], Partial [...] 01/06/23 14:02:00 EDT, 01/11/22 14:02:00 EDT, Tablet, [facility] [...] A DAY Start Date: 11/01/21 Status: Ordered [facility] Senior Probiotic Capsule [facility] Senior Probiotic Capsule, See [...] 450 mL, 5 Refills, 03/02/22 8:08:00 EDT, [facility]/pharmacy #[id number], 155, cm, 02/23/22 [...] Refills, Soft Stop, 05/26/22 8:59:00 EDT, Tablet, [facility]/pharmacy #[id number], [...] 01/02/22 9:03:00 EDT, Route to Pharmacy Electronically, [facility] [...] ED[facility] Start Date: 01/11/22 Status: Ordered gabapentin 300 mg oral capsule 300 mg, 1, capsule, By Mouth, 3 times a day, for 90 days, # 270 capsule, Refills 2, Tot. Refills 2,Hard Stop 02/15/23 7:44:00 EDT, 05/21/22 7:44:00 EDT, Route to Pharmacy Electronically, [facility] [...] Tot. Refills 2, Maintenance, 20-30mmghg FF Petite (short),Vpcyb-vhi-bsqt, soft knee, black silicone Stock code [id number] Part #[id number], Size III. [facility] [id number], 12/07/21 11:32:00 EDT,... Start Date: 12/07/21 Status: Ordered levothyroxine 0.088 mg oral tablet 1 tablet = 88 mcg, By Mouth, Daily, # 90 tablet, 1 Refills, Maintenance, 09/08/22 14:26:00 EST, Tablet, [facility], Partial fill upon patient request if the prescription is fora schedule II opioid drug., 155, cm, 07/12/22 14:10... Start Date: 09/08/22 Status: Ordered lisinopril 5 mg oral tablet See Instructions, TAKE 1 TABLET DAILY, # 90 tablet, Refills 3, Tot. Refills 3, Maintenance, 12/29/22 18:13:00 EDT, Instructions Replace Required Details, Route to Pharmacy Electronically, [facility]/pharmacy #[id number], 155, cm, 10/10/22 13:40:00 EST, Height, 93.... Start Date: 12/29/22 Status: Ordered lisinopril 5 mg oral tablet 5 mg, 1, tablet, By Mouth, Daily, # 90 tablet, Refills 3, Tot. Refills 3, Maintenance, 02/24/22 15:53:00 EDT, Route to Pharmacy Electronically, [facility]/pharmacy #[id number], Partial fill upon patient request if the prescription is for a schedule II opioid drug.... Start Date: 02/24/22 Status: Ordered Mapap 500 mg oral capsule See Instructions, TAKE 2 CAPSULES BY MOUTH 4 TIMES A DAY NEEDED FOR PAIN, # 480 capsule, 3 Refills, Maintenance, 06/04/22 16:03:00 EDT, [id number], 155, cm, 05/25/22 13:44:00 EDT, Height, 93.4, kg, 11/01/21 16:52:00 EDT, Dry Weight Start Date: 06/04/22 Status: Ordered Power [place] Lift with [place] split-leg sling Power [place] Lift with [place] split-leg sling, See Instructions, # 1 each, Refills 0, Tot. Refills 0, Maintenance, Dx: Multiple Sclerosis induced Paraplegia Length of time needed: indefinite Purpose: Transfer to/fr [place] [facility] bed to wheelchair, commode,... Start Date: [...] 5 Refills, Maintenance, 12/11/22 17:34:00 EDT, Tablet, [facility]/pharmacy #[id number], [...] 90 capsule, 1 Refills, 12/11/22 15:16:00 EDT, [facility]/pharmacy #[id number], 155, cm, 10/10/22 13:40:00 EST, Height, 93.4, kg, 11/01/21 16:52:00 EDT, Dry Weight Start Date: 12/11/22 Status: Ordered Xarelto 20 mg oral tablet 1 tablet = 20 mg, By Mouth, Daily at supper, # 90 tablet, 3 Refills, Maintenance, 02/01/22 12:42:00EDT, Tablet, [facility], Partial fill upon patient request [...] Name: Juliann Rich RN Position: [facility] RN Member Role: Primary Care Nurse Name: Esla Allen NP Position: Reference Physician Member Role: Primary Care Nurse Address: Address: [address] [place] [address] [address] [place] [address]- Name: Emma Mendoza RN Position: [facility] Nurse Member Role: Primary Care Nurse Name: Juan Manuel LIM, Kristen Acosta Position: [facility] Primary Care Physician Member Role: PCP Address: Address: [address] [place] [id number]- Name: Jade Medina Position: [facility] RN Member Role: Primary Care Nurse Name: Komal Goodrich Position: [facility] Outreach Member Role: Lifetime Consulting Physician Name: Godfrey Cano Position: [facility] RN Member Role: Primary Care Nurse Name: Anette Miranda RN Position: [facility] Onco RN Member Role: Primary Care Nurse Care Team Related Persons Name: DIOMEDES WARNER Address: home [address] [place] [address] Name: OMO HOWELL Address: home [address] [place] [address] Name: MARLON GENTILE
--- OUTSIDE RECORDS SUMMARY | 2024-03-17 13:36 | XMS_ITS | Continuity of Care Document ---
Author Organization [facility] Address [address] [place] [address]- Care Team Providers Care Ambulette Driver Name Role Phone Juan Manuel LIM, Kristen Acosta Primary Care Physic juan alberto Encounter [facility] Date(s): 08/10/22 - 09/09/22 [facility] [address] [place] [address]- Allergies, Adverse Reactions, Alerts Substance Reaction Severity Status morphine hives, SOB Active Wellbutrin rash Active contrast media (iodine-based) itching throughout body Active penicillins hive Active Reglan Active cannabis (Schedule I substance) itching/vomiting Active Other Environmental Allergy mercury-fillings Active Immunizations Given and Recorded Vaccine Date Status Refusal Reason pneumococcal 20-valent conjugate vaccine 05/30/22 Recorded [id number] 12y+ bivalent booster vax 05/12/22 Recorded influenza [...] vaccine, inactivated 04/26/09 Arnoldo rded SARS-CoV-2 mRNA (pfcgvln-spwj-rhauz) vax 03/10/22 Recorded SARS-CoV-2 mRNA (wckjhvy-yzjy-yeltu) vax 10/04/21 Recorded SARS-CoV-2 (COVID-19) mRNA BNT-162b2 [...] 1 Refills, Maintenance, 08/24/22 16:47:00 EST, Tablet, [facility], Partial fill upon patient request if the prescription is for a schedule II opioid drug., 155, cm, 06/15... Start Date: 08/24/22 Status: Ordered baclofen 20 mg oral tablet 20 mg, 1, tablet, By Mouth, 3 times a day, # 270 tablet, Refills 2, Tot. Refills 2, Maintenance, 12/09/22 12:44:00 EDT, Route to Pharmacy Electronically, [facility] [...] 12:44:00 EDT, Route to Pharmacy Electronically, [facility]/pharmacy#[id number], Partial fill upon patient request if the pre... Start Date: 03/14/22 Stop Date: 12/09/22 Status: Ordered bifidobacterium-lactobacillus oral tablet 2 tablet, By Mouth, 2 times a day, [facility] Brand please (Senior Wellness), # 360 tablet, 3 Refills, Maintenance, 08/11/21 17:02:00 EST, Tablet, [facility]/pharmacy #[id number], Partial fill upon patient request if the prescription is for a schedule II opioid drug., 2... Start Date: 08/11/21 Stop Date: 08/06/22 Status: Ordered calcium carbonate 600 mg oral tablet 1 tablet = 600 mg, By Mouth, 2 times a day, # 180 tablet, 2 Refills, Maintenance, 01/06/23 14:02:00EDT, Tablet, [facility]/pharmacy #[id number], Partial fill upon patient [...] EST Start Date: 07/09/18 Status: Ordered [facility] SENIOR PROBIOTIC CAPSULE TAKE 2 CAPSULES BY MOUTH TWICE A DAY Start Date: 11/01/21 Status: Ordered [facility] Senior Probiotic Capsule [facility] Senior Probiotic Capsule, See Instructions, [...] Refills, Maintenance, 04/02/22 21:13:00 EDT, Gel, [facility] Start Date: 04/02/22 [...] mL, 5 Refills, 03/02/22 8:08:00 EDT, [facility]/pharmacy #[id number], 155, cm, 02/23/22 8:04:00 [...] Soft Stop, 05/26/22 8:59:00 EDT, Tablet, [facility]/pharmacy #[id number], Partial fill upon patient [...] 01/11/22 13:45:00 EDT, Route to Pharmacy Electronically, [facility]... Start Date: 01/11/22 Status: Ordered gabapentin 300 mg oral capsule 300 mg, 1, capsule, By Mouth, 3 times a day, # 270 capsule, Refills 2, Tot. Refills 2, Maintenance,05/21/22 7:44:00 EDT, Route to Pharmacy Electronically, [facility], Partial fill upon patient request if the prescription is for... Start Date: 05/21/22 Stop Date: 02/15/23 Status: Ordered Juzo Compression Hose Juzo Compression Hose, See Instructions, # 2 each, Refills 2, Tot. Refills 2, Maintenance, 20-30mmghg FF Petite (short),Kvytv-jso-izpt, soft knee, black silicone Stock code [id number] Part #[id number], Size III. [facility] [id number], 12/07/21 11:32:00 EDT,... Start Date: 12/07/21 Status: Ordered levothyroxine 0.088 mg oral tablet 1 tablet = 88 mcg, By Mouth, Daily, # 90 tablet, 1 Refills, Maintenance, 09/08/22 14:26:00 EST, Tablet, [facility], Partial fill upon patient request if the prescription is fora schedule II opioid drug., 155, cm, 07/12/22 14:10... Start Date: 09/08/22 Status: Ordered lisinopril 5 mg oral tablet 5 mg, 1, tablet, By Mouth, Daily, # 90 tablet, Refills 3, Tot. Refills 3, Maintenance, 02/24/22 15:53:00 EDT, Route to Pharmacy Electronically, [facility]/pharmacy #[id number], Partial fill upon patient request if the prescription is for a schedule II opioid drug.... Start Date: 02/24/22 Status: Ordered Mapap 500 mg oral capsule See Instructions, TAKE 2 CAPSULES BY MOUTH 4 TIMES A DAY NEEDED FOR PAIN, # 480 capsule, 3 Refills, Maintenance, 06/04/22 16:03:00 EDT, [id number], 155, cm, 05/25/22 13:44:00 EDT, Height, 93.4, kg, 11/01/21 16:52:00 EDT, Dry Weight Start Date: 06/04/22 Status: Ordered Potassium Chloride (Eqv-K-Tab) 20 mEq oral tablet, extended release 1 tablet = 20 mEq, By Mouth, Daily, for low potassium, # 10 tablet, 0 Refills, Maintenance, 03/02/22 19:14:00 EDT, [facility]/pharmacy #[id number], Partial fill upon patient request if the prescription is for a schedule II opioid drug., 155, cm, 02/23/22 8:04:00 E... Start Date: 03/02/22 Stop Date: 03/12/22 Status: Ordered Power Virginia Lift with [place] split-leg sling Power Virginia Lift with [place] split-leg sling, See Instructions, # 1 each, Refills 0, Tot. Refills 0, Maintenance, Dx: Multiple Sclerosis induced Paraplegia Length of time needed: indefinite Purpose: Transfer to[facility] to wheelchair, commode,... Start Date: 08/16/21 Status: Ordered predniSONE 10 mg oral tablet See Instructions, 3 tablets x 3 days, 2 tabs x 3 days then 1 tab x 3 days then STOP, # 18 tablet, 0Refills, Maintenance, 08/24/22 17:06:00 EST, [facility]/pharmacy #[id number], Partial fill upon patient [...] 11/01/22 17:46:00 EDT, 07/12/22 17:46:00 EST, Tablet, [facility]/pharmacy #[id number], Partial fill upon pa... Start Date: 07/12/22 Stop Date: 11/01/22 Status: Ordered Provigil 200 mg oral tablet 1 tablet = 200 mg, By Mouth, 2 times a day, takes in am and lunchtime brand name only - dispense aswritten, # 56 tablet, 0 Refills, Maintenance, 09/07/22 14:36:00 EST, Tablet, [facility]/pharmacy #[id number], Partial fill upon patient [...] 10/25/22 18:25:00 EDT, 07/05/22 18:25:00 EST, [facility] Parti... Start Date: 07/05/22 Stop [...] capsule, 2 Refills, 02/28/22 8:13:00 EDT, [facility]/pharmacy #[id number], 155,cm, 02/23/22 8:04:00 EDT, Height, 93.4, kg, 11/01/21 16:52:00 EDT, Dry Weight Start Date: 02/28/22 Status: Ordered Xarelto 20 mg oral tablet 1 tablet = 20 mg, By Mouth, Daily at supper, # 90 tablet, 3 Refills, Maintenance, 02/01/22 12:42:00EDT, Tablet, [facility], Partial fill upon patient request [...] Member Role: Primary Care Nurse Address: Address: [address] [place] [address] [address] [facility] [place] [address]- [place] Name: Emma Mendoza RN Position: [facility] RN Member Role: Primary Care Nurse Name: Juan Manuel LIM, Kristen Acosta Position: [facility] Primary Care Physician Member Role: PCP Address: Address: [address] [place] [id number]- Name: Jade Medina Position: [facility] RN Member Role: Primary Care Nurse Name: Komal Goodrich Position: [facility] Outreach Member Role: Lifetime Consulting Physician Name: Godfrey Cano Position: [facility] RN Member Role: Primary Care Nurse Name: Anette Miranda RN Position: [facility] Onco RN Member Role: Primary Care Nurse Care Team Related Persons Name: DIOMEDES WARNER Address: [address] [place] [address] Name: MOO HOWELL Address: [address] [place] [address] Name: MARLON GENTILE
--- OUTSIDE RECORDS SUMMARY | 2024-03-17 13:36 | XMS_ITS | Continuity of Care Document ---
Author Organization [facility] Address [address] [place] [address]- Care Team Providers Care Global Recruiter Name Role Phone Juan Manuel LIM, Kristen Acosta Primary Care Physic juan alberto En[place] [facility] [place] [facility] [place] Date(s): 01/02/22 - 01/09/22 [facility] [address] [place] [address]- [place] Encounter Diagnosis MS (multiple sclerosis)(Discharge Diagnosis) - 01/02/22 Hypertension(Discharge Diagnosis) - 01/02/22 Hypothyroidism(Discharge Diagnosis) - 01/02/22 Bilateral leg edema(Discharge Diagnosis) - 01/02/22 Attending Physician: Juan Manuel LIM, Kristen Acosta [...] 04/19/22 17:46:00 EDT, 08/22/21 17:46:00 EST, Capsule, [facility]/pharmacy #[id number], Partial fill upon patient request if the prescription is for a schedul... Start Date: 08/22/21 Stop Date: 04/19/22 Status: Ordered ascorbic acid 1000 mg oral tablet 1 tablet = 1,000 mg, By Mouth, 2 times a day, # 90 tablet, 1 Refills, Maintenance, 08/11/21 17:03:00 EST, Tablet, [facility]/pharmacy #[id number], Partial fill upon patient request if the prescription is for a schedule II opioid drug., 153, cm, 06/27/21 7:47:00 ES... Start Date: 08/11/21 Status: Ordered baclofen 20 mg oral tablet 20 mg, 1, tablet, By Mouth, 3 times a day, # 360 tablet, Refills 1, Tot. Refills 1, Maintenance, 08/02/21 14:09:00 EST, Route to Pharmacy Electronically, [facility], Partial fill upon patient request if the prescription is for a... Start Date: 08/02/21 Status: Ordered bifidobacterium-lactobacillus oral tablet 2 tablet, By Mouth, 2 times a day, [facility] Brand please (Senior Wellness), # 360 tablet, 3 Refills, Maintenance, 08/11/21 17:02:00 EST, Tablet, [facility]/pharmacy #[id number], Partial fill upon patient request if the prescription is for a schedule II opioid drug., 2... Start Date: 08/11/21 Stop Date: 08/06/22 Status: Ordered Centrum Silver Ultra Women's oral tablet 1 tablet, By Mouth, Daily, 0 Refills, Maintenance, 07/09/18 8:43:55 EST Start Date: 07/09/18 Status: Ordered [facility] SENIOR PROBIOTIC CAPSULE TAKE 2 CAPSULES [...] STILL NEEDED, # 450 mL, 0 Refills, [facility] [id number], 153, cm, 08/30/21 16:43:00 EST, Height Start [...] a schedule... Start Date: 01/02/22 Status: Ordered gabapentin 300 mg oral capsule [...] Tot. Refills 2, Maintenance, 20-30mmghg FF Petite (short),Lhtjg-ame-rdem, soft knee, black silicone Stock code [id number] Part #[id number], Size III. [facility] [id number], 12/07/21 11:32:00 EDT,... Start Date: 12/07/21 Status: [...] 07/13/21 Status: Ordered Power Virginia Lift with [place] split-leg sling Power Virginia Lift with [place] split-leg sling, See Instructions, # 1 each, [...] 1 Refills, Maintenance, 12/09/21 1:28:00 EDT, Tablet, [id number], Partial fill upon patient request if the prescription... Start Date: 12/09/21 Stop Date: 02/03/22 Status: Ordered Turmeric = 750 mg, By Mouth, 2 times a day, 0 Refills, Maintenance, 07/09/18 8:47:35 EST Start Date: 07/09/18 Status: Ordered Vitamin D3 2000 intl units oral capsule 1 capsule, By Mouth, Daily, # 90 capsule, 1 Refills, 08/11/21 17:04:00 EST, [id number], 153, cm, 06/27/21 7:47:00 EST, Height [...] Effective Dates Health Status Clinical Service Informant MS (multiple sclerosis) Discharge Diagnosis 01/02/22 Hypertension Discharge Diagnosis 01/02/22 Hypothyroidism Discharge Diagnosis 01/02/22 Bilateral leg edema Discharge Diagnosis 01/02/22 Vital Signs Most recent to oldest [Reference Range]: 1 Height 155 cm (01/02/22 8:26 AM) Social History Social History Type Response Smoking Status Never (less than 100 in lifetime) entered on: 10/31/21 Sex
--- OUTSIDE RECORDS SUMMARY | 2024-03-17 13:36 | XMS_ITS | Continuity of Care Document ---
Author Organization [facility] Address [address] [place] [address]- Care Team Providers Care Machine Clothing Worker Name Role Phone Juan Manuel LIM, Kristen Acosta Primary Care Physic juan alberto [facility]counter [facility] Date(s): 11/08/23 - 12/08/23 [facility] [address] [place], [place] [address] Allergies, Adverse Reactions, Alerts Substance Reaction Severity Status morphine hives, SOB Active penicillins hive Active Wellbutrin rash Active Reglan Active cannabis (Schedule I substance) itching/vomiting Active Other Environmental Allergy mercury-fillings Active contrast media (iodine-based) itching throughout body Active Immunizations Given and Recorded Vaccine Date Status Refusal Reason SARS-CoV-2(COVID-19)mRNA-LNP vac([id number]) 10/19/23 Recorded SARS-CoV-2(COVID-19)mRNA-LNP vac([id number]) 07/03/23 Recorded RSV vaccine preF3, recombinant 05/19/23 [...] influenza virus vaccine, inactivated 04/26/09 Arnoldo rded [id number]-[id number] 12y+ bivalent booster vax 01/23/23 Recorded PKPE-YwH-0iLIG 12y+ bivalent booster vax 05/12/22 Recorded pneumococcal 20-valent conjugate vaccine 05/30/22 Recorded SARS-CoV-2 mRNA (yyciivz-ztvh-rfssr) vax 03/10/22 Recorded SARS-CoV-2 mRNA (dpcbysj-kavs-ustmb) vax 10/04/21 Recorded SARS-CoV-2 (COVID-19) mRNA BNT-162b2 [...] 1 Refills, Maintenance, 08/01/23 13:53:00 EST, Tablet, [facility]/pharmacy #[id number], [...] 09/05/23 12:44:00 EST, Route to Pharmacy Electronically, [facility], Partial fill upon patient req... Start Date: 09/05/23 Stop Date: 06/01/24 Status: Ordered baclofen 20 mg oral tablet 20 mg, 1, tablet, By Mouth, 3 times a day, # 270 tablet, Refills 2, Tot. Refills 2, Maintenance, 06/01/24 12:44:00 EDT, [facility] Electronically, [facility] 09/05/23 12:44:00 EST, Route to Pharmacy Electronically, [facility]/pharmacy#[id number], Partial fill upon patient request if the pre... Start Date: 09/05/23 Stop Date: 06/01/24 Status: Ordered bifidobacterium-lactobacillus oral tablet 2 tablet, By Mouth, 2 times a day, [facility] Brand please ([facility]), # 360 tablet, 3 Refills, [...] tablet, 2 Refills, Maintenance, 01/06/23 14:02:00EDT, Tablet, [facility]/pharmacy #[id number], Partial fill upon patient request if the prescription is for a schedule II opioid drug., 155, cm, 02/23/22 8:04:00 EDT... Start Date: 01/06/23 Stop Date: 10/03/23 Status: Ordered Centrum Silver Ultra Women's oral tablet 1 tablet, By Mouth, Daily, 0 Refills, Maintenance, 07/09/18 8:43:55 EST Start Date: 07/09/18 Status: Ordered [facility] SENIOR PROBIOTIC CAPSULE TAKE 2 CAPSULES BY MOUTH TWICE A DAY Start Date: 11/01/21 Status: Ordered [facility] Senior Probiotic Capsule [facility] Senior Probiotic Capsule, See [...] 450 mL, 5 Refills, 03/02/22 8:08:00 EDT, [facility]/pharmacy #[id number], 155, cm, 02/23/22 [...] Refills, Soft Stop, 03/27/23 18:43:00 EDT, Tablet, [facility]/pharmacy #[id number], Partial fill upon patient request if the prescription is for a schedule II opioid... Start Date: 03/27/23 Status: Ordered fluconazole 150 mg oral tablet 1 tablet = 150 mg, By Mouth, Every week, # 4 tablet, 1 Refills, Soft Stop, 05/26/22 8:59:00 EDT, Tablet, [facility]/pharmacy #[id number], Partial [...] 07/03/23 1:01:00 EST, Route to Pharmacy Electronically, [facility], 155, cm, 05/28/23 11:02:00 [...] Maintenance,02/15/23 7:44:00 EDT, Route to Pharmacy Electronically, [facility], Partial fill upon patient request if the prescription is for... Start Date: 02/15/23 Stop Date: 11/12/23 Status: Ordered Juzo Compression Hose Juzo Compression Hose, See Instructions, # 2 each, Refills 2, Tot. Refills 2, Maintenance, Juzo Compression Hose 2 pairs phzka-sfv-fhjw Soft Knee FF Petite 20-30 mmHg Silicone, Black Stock Code [id number] I I I Part #[id number] Size I I I SKU... Start Date: 03/12/23 Status: Ordered levothyroxine 0.088 mg oral tablet 1 tablet = 88 mcg, By Mouth, Daily, # 90 tablet, 1 Refills, Maintenance, 10/01/23 17:11:00 EST, Tablet, [facility]/pharmacy #[id number], Partial fill upon patient request if the prescription is for a schedule II opioid drug., 155, cm, 05/28/23 11:02:00 EDT, Height... Start Date: 10/01/23 Status: Ordered lisinopril 5 mg oral tablet 1, tablet, By Mouth, Daily, # 90 tablet, Refills 1, Tot. Refills 1, Maintenance, 10/01/23 17:15:00 EST, Route to Pharmacy Electronically, [facility]/pharmacy #[id number], 155, cm, 05/28/23 11:02:00 EDT, Height, 93.4, kg, 11/01/21 16:52:00 EDT, Dry Weight Start Date: 10/01/23 Status: Ordered Mapap 500 mg oral capsule See Instructions, TAKE 2 CAPSULES BY MOUTH 4 TIMES A DAY NEEDED FOR PAIN, # 480 capsule, 0 Refills, Maintenance, 11/12/23 15:45:00 EDT, [facility]/pharmacy #[id number], 155, cm, 05/28/23 11:02:00 EDT, Height Start Date: 11/12/23 Status: Ordered Power [place] Lift with [place] split-leg sling Power [place] Lift with [place] split-leg sling, See Instructions, # 1 each, [...] Juliann Rich RN Position: [facility] RN Member Role: Primary Care Nurse Name: Elsa Allen NP Position: [facility] Outreach Member Role: Primary Care Nurse Address: Address: [address] [place] [address]- Name: Emma Mendoza RN Position: [facility] AMB Nurse Member Role: Primary Care Nurse Name: Juan Manuel LIM, Kristen Acosta Position: [facility] Physician - Primary Care Member Role: PCP Address: Address: [address] [place] [id number]- Name: Anette Soler RN Position: [facility] Onco RN Member Role: Primary Care Nurse Name: Komal Goodrich Position: [facility] Outreach Member Role: Lifetime Consulting Physician Name: Godfrey Cano Position: [facility] RN Member Role: Primary Care Nurse Care Team Related Persons Name: DIOMEDES WARNER Address: home [address] [place] [address] Name: MOO HOWELL Address: home [address] [place] [address] Name: MARLON GENTILE
--- OUTSIDE RECORDS SUMMARY | 2024-03-17 13:36 | XMS_ITS | Continuity of Care Document ---
Author Organization [facility] Address [address] [place] [address]- Care Team Providers Care Watch Case Polisher Name Role Phone Juan Manuel LIM, Kristen Acosta Primary Care Physic juan alberto [facility]counter [facility] Date[facility]s): 12/07/21 - 01/06/22 [facility] [address] [place] [id number] Allergies, Adverse Reactions, Alerts Substance [...] 04/19/22 17:46:00 EDT, 08/22/21 17:46:00 EST, Capsule, [facility]/pharmacy #[id number], Partial fill upon patient request if the prescription is for a schedul... Start Date: 08/22/21 Stop Date: 04/19/22 Status: Ordered ascorbic acid 1000 mg oral tablet 1 tablet = 1,000 mg, By Mouth, 2 times a day, # 90 tablet, 1 Refills, Maintenance, 08/11/21 17:03:00 EST, Tablet, [facility]/pharmacy #[id number], Partial fill upon patient request if the prescription is for a schedule II opioid drug., 153, cm, 06/27/21 7:47:00 ES... Start Date: 08/11/21 Status: Ordered baclofen 20 mg oral tablet 20 mg, 1, tablet, By Mouth, 3 times a day, # 360 tablet, Refills 1, Tot. Refills 1, Maintenance, 08/02/21 14:09:00 EST, Route to Pharmacy Electronically, [facility], Partial fill upon patient request if the prescription is for a... Start Date: 08/02/21 Status: Ordered bifidobacterium-lactobacillus oral tablet 2 tablet, By Mouth, 2 times a day, [facility] Brand please ([facility]), # 360 tablet, 3 Refills, Maintenance, 08/11/21 17:02:00 EST, Tablet, [facility]/pharmacy #[id number], Partial [...] 01/09/22 14:17:00 EDT, 07/13/21 14:17:00 EST, Tablet, [facility], Partial fill upon patient request if the prescription is for a schedul... Start Date: 07/13/21 Stop Date: 01/09/22 Status: Ordered Centrum Silver Ultra Women's oral tablet 1 tablet, By Mouth, Daily, 0 Refills, Maintenance, 07/09/18 8:43:55 EST Start Date: 07/09/18 Status: Ordered [facility] SENIOR PROBIOTIC CAPSULE TAKE 2 CAPSULES [...] STILL NEEDED, # 450 mL, 0 Refills, [facility]ORE [id number], 153, cm, 08/30/21 16:43:00 EST, Height Start [...] 01/02/22 9:03:00 EDT, Route to Pharmacy Electronically, [facility] [...] Tot. Refills 2, Maintenance, 20-30mmghg FF Petite (short),Tvako-pta-ijwi, soft knee, black silicone Stock code [id number] Part #[id number], Size III. [facility] [id number], 12/07/21 11:32:00 EDT,... Start Date: 12/07/21 Status: [...] 07/13/21 14:08:00 EST, Route to Pharmacy Electronically, [facility], Partial fill upon patient request if the prescription is for a schedule... Start Date: 07/13/21 Status: Ordered Power [place] Lift with [place] split-leg sling Power [place] Lift with [place] split-leg sling, See Instructions, # 1 [...] 1 Refills, Maintenance, 12/09/21 1:28:00 EDT, Tablet, [facility]/pharmacy #[id number], Partial fill upon patient request if the prescription... Start Date: 12/09/21 Stop Date: 02/03/22 Status: Ordered Turmeric = 750 mg, By Mouth, 2 times a day, 0 Refills, Maintenance, 07/09/18 8:47:35 EST Start Date: 07/09/18 Status: Ordered Vitamin D3 2000 intl units oral capsule 1 capsule, By Mouth, Daily, # 90 capsule, 1 Refills, 08/11/21 17:04:00 EST, [facility]/pharmacy #[id number], 153, cm, 06/27/21 7:47:00 EST, [...]
--- OUTSIDE RECORDS SUMMARY | 2024-03-17 13:36 | XMS_ITS | Continuity of Care Document ---
Author Organization [facility] Address [address], [address], [address] [place] [address]- Care Team Providers Care Senior Payroll Administrator Name Role Phone Juan Manuel LIM, Kristen December Karla Primary Care Physic juan alberto [place] [facility]): [place] [facility] [address], [address], [address] [place] [address]- Attending Physician: Moody Maldonado MD Admitting Physician: Moody Maldonado MD Allergies, Adverse Reactions, Alerts Substance Reaction Severity Status morphine hives, SOB Active penicillins hive Active Wellbutrin rash Active Reglan Active cannabis (Schedule I substance) itching/vomiting Active Other Environmental Allergy mercury-fillings Active contrast media (iodine-based) itching throughout body Active Immunizations Given and Recorded Vaccine Date Status Refusal Reason pneumococcal 20-valent conjugate vaccine 05/30/22 Recorded [id number]-JzU-1nKFC 12y+ bivalent booster vax 05/12/22 Recorded influenza [...] vaccine, inactivated 04/26/09 Arnoldo rded SARS-CoV-2 mRNA (rvxjpqh-diyz-rjiye) vax 03/10/22 Recorded SARS-CoV-2 mRNA (gjrczfc-zenw-ysfaa) vax 10/04/21 Recorded SARS-CoV-2 (COVID-19) mRNA BNT-162b2 [...] tablet, 0 Refills, Maintenance, 10/05/22 9:35:00EST, Tablet, [facility]/pharmacy #[id number], Partial fill upon patient request if the prescription is for a schedule II opioid drug., 155, cm, 09/26/22 14:02:00 ES... Start Date: 10/05/22 Status: Ordered baclofen 20 mg oral tablet 20 mg, 1, tablet, By Mouth, 3 times a day, # 270 tablet, Refills 2, Tot. Refills 2, Maintenance, 12/09/22 12:44:00 EDT, Route to Pharmacy Electronically, [facility], [...] EDT, [facility] Start Date: 01/11/22 Status: Ordered gabapentin 300 mg oral capsule 300 mg, 1, capsule, By Mouth, 3 times a day, for 90 days, # 270 capsule, Refills 2, Tot. Refills 2,Hard Stop 02/15/23 7:44:00 EDT, 05/21/22 7:44:00 EDT, Route to Pharmacy Electronically, [facility], Partial fill upon patient re... [...] Tot. Refills 2, Maintenance, 20-30mmghg FF Petite (short),Wqudx-rqi-bfnp, soft knee, black silicone Stock code [id number] Part #[id number], Size III. [facility] [id number], 12/07/21 11:32:00 EDT,... Start Date: 12/07/21 Status: Ordered levothyroxine 0.088 mg oral tablet 1 tablet = 88 mcg, By Mouth, Daily, # 90 tablet, 1 Refills, Maintenance, 09/08/22 14:26:00 EST, Tablet, [facility], Partial [...] Required Details, Route to Pharmacy Electronically, [facility], 155, cm, 07/12/22 14:10:00 EST, Height, 93.4, k... Start Date: 09/24/22 Status: Ordered Mapap 500 mg oral capsule See Instructions, TAKE 2 CAPSULES BY MOUTH 4 TIMES A DAY NEEDED FOR PAIN, # 480 capsule, 3 Refills, Maintenance, 06/04/22 16:03:00 EDT, [facility]ORE [id number], 155, cm, 05/25/22 13:44:00 EDT, Height, 93.4, kg, 11/01/21 16:52:00 EDT, Dry Weight Start Date: 06/04/22 Status: Ordered Power [place] Lift with [place] split-leg sling Power Virginia Lift with [place] split-leg sling, See Instructions, # 1 each, [...] 5 Refills, Maintenance, 10/05/22 17:39:00 EST, Tablet, [facility]/pharmacy #[id number], [...] Team Personnel Name: Juliann Rich RN Position: [facility] RN Member Role: Primary Care Nurse Name: Elsa Allen NP Position: Reference Physician Member Role: Primary Care Nurse Address: Address: [address] [place] [address] [address] [place] [address]- Name: Emma Mendoza RN Position: [facility] RN Member Role: Primary Care Nurse Name: Juan Manuel LIM, Kristen Acosta Position: [facility] Primary Care Physician Member Role: PCP Address: Address: [address] [place] [id number] Name: Jade Medina Position: S RN Member Role: Primary Care Nurse Name: Komal Goodrich Position: [facility] Outreach Member Role: Lifetime Consulting Physician Name: Godfrey Cano Position: [facility] RN Member Role: Primary Care Nurse Name: Anette Miranda RN Position: [facility] Onco RN Member Role: Primary Care Nurse Care Team Related Persons Name: DIOMEDES WARNER Address: home [address] [place] [address] Name: MOO HOWELL Address: [address] [address] Name: MARLON GENTILE
--- OUTSIDE RECORDS SUMMARY | 2024-03-17 13:36 | XMS_ITS | Continuity of Care Document ---
Author Organization [facility] Address [address] [place] [address]- Care Team Providers Care Clinical Operations Manager Name Role Phone Juan Manuel LIM, Kristen Acosta Primary Care Physic juan alberto [place] [facility] [place] 11[place] [facility] [address] [place] [address]- Attending Physician: Alissa Gannon Admitting Physician: Admtr, Alissa Referring Physician: Admtr, Ar8 Allergies, Adverse Reactions, [...] 04/19/22 17:46:00 EDT, 08/22/21 17:46:00 EST, Capsule, [facility]/pharmacy #[id number], Partial fill upon patient request if the prescription is for a schedul... Start Date: 08/22/21 Stop Date: 04/19/22 Status: Ordered ascorbic acid 1000 mg oral tablet 1 tablet = 1,000 mg, By Mouth, 2 times a day, # 90 tablet, 1 Refills, Maintenance, 08/11/21 17:03:00 EST, Tablet, [facility]/pharmacy #[id number], Partial fill upon patient request if the prescription is for a schedule II opioid drug., 153, cm, 06/27/21 7:47:00 ES... Start Date: 08/11/21 Status: Ordered baclofen 20 mg oral tablet 20 mg, 1, tablet, By Mouth, 3 times a day, # 360 tablet, Refills 1, Tot. Refills 1, Maintenance, 08/02/21 14:09:00 EST, Route to Pharmacy Electronically, [facility], Partial fill upon patient request if the prescription is for a... Start Date: 08/02/21 Status: Ordered bifidobacterium-lactobacillus oral tablet 2 tablet, By Mouth, 2 times a day, [facility] Brand please ([facility] [...] 01/09/22 14:17:00 EDT, 07/13/21 14:17:00 EST, Tablet, [facility], Partial fill upon [...] STILL NEEDED, # 450 mL, 0 Refills, [facility] [id number], 153, cm, 08/30/21 16:43:00 EST, Height Start [...] 04/05/21 13:39:00 EDT, Route to Pharmacy Electronically, [facility], Partial fill upon patient request if the prescription is for a schedule... Start Date: 04/05/21 Stop Date: 05/05/21 Status: Ordered gabapentin 300 mg oral capsule 300 mg, 1, capsule, By Mouth, Daily at bedtime, # 90 capsule, Refills 2, Tot. Refills 2, Maintenance, 08/02/21 14:08:00 EST, Route to Pharmacy Electronically, [facility], Partial fill upon patient request if the prescription is... Start Date: 08/02/21 Status: Ordered levothyroxine 0.088 mg oral tablet 1 tablet = 88 mcg, By Mouth, Daily, # 90 tablet, 1 Refills, Maintenance, 07/13/21 14:09:00 EST, Tablet, [facility], Partial fill upon patient request if the prescription is fora schedule II opioid drug., 153, cm, 06/27/21 7:47:... Start Date: 07/13/21 Status: Ordered lisinopril 5 mg oral tablet 5 mg, 1, tablet, By Mouth, Daily, # 90 tablet, Refills 1, Tot. Refills 1, Maintenance, 07/13/21 14:08:00 EST, Route to Pharmacy Electronically, [facility], Partial fill upon patient request if the prescription is for a schedule... Start Date: 07/13/21 Status: Ordered Power [place] Lift with [place] split-leg sling Power [place] Lift with [place] split-leg sling, See Instructions, # 1 each, [...] 1 Refills, Maintenance, 07/14/21 17:19:00 EST, Tablet, [facility], Partial fill upon patient request if t... Start Date: 07/14/21 Stop Date: 09/08/21 Status: Ordered Turmeric = 750 mg, By Mouth, 2 times a day, 0 Refills, Maintenance, 07/09/18 8:47:35 EST Start Date: 07/09/18 Status: Ordered Vitamin D3 2000 intl units oral capsule 1 capsule, By Mouth, Daily, # 90 capsule, 1 Refills, 08/11/21 17:04:00 EST, [facility]/pharmacy #[id number], 153, cm, 06/27/21 7:47:00 [...]
--- OUTSIDE RECORDS SUMMARY | 2024-03-17 13:36 | XMS_ITS | Continuity of Care Document ---
Author Organization [facility] Address [address], [address] [place] [address]- Care Team Providers Care Harness Installer Name Role Phone Juan Manuel LIM, Kristen Acosta Primary Care Physic juan alberto Encounter [facility] Date(s): 03/16/23 - 04/15/23 [facility] [place] [facility] [address], [address] [place] [address]- Attending Physician: Admtr, Ar8 Admitting Physician: Admtr, [...] Reason pneumococcal 20-valent conjugate vaccine 05/30/22 Recorded [id number]-[id number] 12y+ bivalent booster vax 05/12/22 Recorded influenza [...] vaccine, inactivated 04/26/09 Arnoldo rded SARS-CoV-2 mRNA (rljgxls-rkmd-saemh) vax 03/10/22 Recorded SARS-CoV-2 mRNA (oflqpif-tsdn-itacg) vax 10/04/21 Recorded SARS-CoV-2 (COVID-19) mRNA BNT-162b2 [...] 12:44:00 EDT, Route to Pharmacy Electronically, [facility], Partial fill upon patient request [...] EDT, Route to Pharmacy Electronically, [facility], 155, cm, 10/10/22 13:40:00 EST, Height, 93.4,kg, 11/01/21 16:52:00 EDT, Dry Weight Start Date: 01/17/23 Status: Ordered gabapentin 300 mg oral capsule 300 mg, 1, capsule, By Mouth, 3 times a day, # 270 capsule, Refills 2, Tot. Refills 2, Maintenance,02/15/23 7:44:00 EDT, Route to Pharmacy Electronically, [facility], Partial fill upon patient request if the prescription is for... Start Date: 02/15/23 Stop Date: 11/12/23 Status: Ordered Juzo Compression Hose Juzo Compression Hose, See Instructions, # 2 each, Refills 2, Tot. Refills 2, Maintenance, Juzo Compression Hose 2 pairs ssewe-swh-pmex Soft Knee FF Petite 20-30 mmHg Silicone, Black Stock Code [id number] I I I Part #[id number] Size I I I SKU... Start Date: 03/12/23 Status: Ordered levothyroxine 0.088 mg oral tablet 1 tablet = 88 mcg, By Mouth, Daily, # 90 tablet, 3 Refills, Maintenance, 03/15/23 17:17:00 EDT, Tablet, [facility], Partial fill upon patient request if the prescription is fora schedule II opioid drug., 155, cm, 03/15/23 17:11... Start Date: 03/15/23 Status: Ordered lisinopril 5 mg oral tablet 1, tablet, By Mouth, Daily, # 90 tablet, Refills 3, Tot. Refills 3, Maintenance, 03/15/23 17:16:00 EDT, Route to Pharmacy Electronically, [facility], 155, cm, 03/15/23 17:11:00EDT, Height, [...] 03/12/23 Status: Ordered Power [place] Lift with [place] split-leg sling Power [place] Lift with [place] split-leg sling, See Instructions, # 1 each, [...] Role: Primary Care Nurse Address: Address: [address] [place] [address] [address] [place] [address]- Name: Emma Mendoza RN Position: [facility] AMB Nurse Member Role: Primary Care Nurse Name: Juan Manuel LIM, Kristen Acosta Position: [facility] Physician - Primary Care Member Role: PCP Address: Address: [address] [place] [id number] Name: Komal Goodrich Position: S Outreach Member Role: Lifetime Consulting Physician Name: Godfrey Cano Position: [facility] RN Member Role: Primary Care Nurse Name: Anette Miranda RN Position: [facility] RN Member Role: Primary Care Nurse Care Team Related Persons Name: DIOMEDES WARNER Address: home [address] [place] [address] Name: MOO HOWELL Address: home [address] [place] [address] Name: MARLON GENTILE
--- OUTSIDE RECORDS SUMMARY | 2024-03-17 13:36 | XMS_ITS | Continuity of Care Document ---
Author Organization [facility] y Address [address] [place] [address], [address] [place] [address]- Care Team Providers Care Removable Prosthodontist Name Role Phone Juan Manuel LIM, Kristen Acosta Primary Care Physic juan alberto [place] [facility] [place] 09[place]17/22 [facility] [address] [place] [address], [address] [place] [address]- Allergies, Adverse Reactions, Alerts Substance Reaction Severity Status morphine hives, SOB Active penicillins hive Active Wellbutrin rash Active Reglan Active cannabis (Schedule I substance) itching/vomiting Active Other Environmental Allergy mercury-fillings Active contrast media (iodine-based) itching throughout body Active Immunizations Given and Recorded Vaccine Date Status Refusal Reason pneumococcal 20-valent conjugate vaccine 05/30/22 Recorded [id number]-[id number] 12y+ bivalent booster vax 05/12/22 Recorded influenza [...] vaccine, inactivated 04/26/09 Arnoldo rded SARS-CoV-2 mRNA (juftdoo-hotj-evufe) vax 03/10/22 Recorded SARS-CoV-2 mRNA (dazmyzq-mlec-ctwan) vax 10/04/21 Recorded SARS-CoV-2 (COVID-19) mRNA BNT-162b2 [...] tablet, 0 Refills, Maintenance, 09/13/22 9:11:00EST, Tablet, [facility]/pharmacy #[id number], Partial fill upon patient request if the prescription is for a schedule II opioid drug., 155, cm, 07/12/22 14:10:00 ES... Start Date: 09/13/22 Status: Ordered baclofen 20 mg oral tablet 20 mg, 1, tablet, By Mouth, 3 times a day, # 270 tablet, Refills 2, Tot. Refills 2, Maintenance, 12/09/22 12:44:00 EDT, Route to Pharmacy Electronically, [facility], Partial fill upon [...] 01/06/23 14:02:00 EDT, 01/11/22 14:02:00 EDT, Tablet, [facility] [...] 01/02/22 9:03:00 EDT, Route to Pharmacy Electronically, [facility] [...] 13:45:00 EDT, Route to Pharmacy Electronically, [facility]... Start Date: 01/11/22 Status: Ordered gabapentin 300 mg oral capsule 300 mg, 1, capsule, By Mouth, 3 times a day, # 270 capsule, Refills 2, Tot. Refills 2, Maintenance,05/21/22 7:44:00 EDT, Route to Pharmacy Electronically, [facility], Partial fill upon patient request if the prescription is for... Start Date: 05/21/22 Stop Date: 02/15/23 Status: Ordered Juzo Compression Hose Juzo Compression Hose, See Instructions, # 2 each, Refills 2, Tot. Refills 2, Maintenance, 20-30mmghg FF Petite (short),Ykhzm-uhp-pfun, soft knee, black silicone Stock code [id number] Part #[id number], Size III. [facility] [id number], 12/07/21 11:32:00 EDT,... Start Date: 12/07/21 Status: Ordered levothyroxine 0.088 mg oral tablet 1 tablet = 88 mcg, By Mouth, Daily, # 90 tablet, 1 Refills, Maintenance, 09/08/22 14:26:00 EST, Tablet, [facility], Partial fill upon patient request [...] 16:03:00 EDT, [facility] STORE [id number], 155, cm, 05/25/22 13:44:00 EDT, Height, 93.4, [...] 03/12/22 Status: Ordered Power [place] Lift with [place] split-leg sling Power [place] Lift with [place] split-leg sling, See Instructions, # 1 each, [...] EDT, 07/12/22 17:46:00 EST, [id number] Partial fill upon pa... Start [...] 10/25/22 18:25:00 EDT, 07/05/22 18:25:00 EST, Tablet, [facility], Parti... Start Date: 07/05/22 Stop [...] 02/01/22 12:42:00EDT, Tablet, [facility], Partial fill upon patient request [...] Member Role: Primary Care Nurse Address: Address: [address] [place] [address] [address] [place] [address]- [place] Name: Emma Mendoza RN Position: [facility] RN Member Role: Primary Care Nurse Name: Juan Manuel LIM, Kristen Acosta Position: [facility] Primary Care Physician Member Role: PCP Address: Address: [address] [place] [address]- Name: Jade Medina Position: S RN Member Role: Primary Care Nurse Name: Komal Goodrich Position: [facility] Outreach Member Role: Lifetime Consulting Physician Name: Godfrey Cano Position: S RN Member Role: Primary Care Nurse Name: Anette Miranda RN Position: [facility] Onco RN Member Role: Primary Care Nurse Care Team Related Persons Name: DIOMEDES WARNER Address: home [address] [place] [address] Name: MOO HOWELL Address: home [address] [place] [address] Name: MARLON GENTILE
--- OUTSIDE RECORDS SUMMARY | 2024-03-17 13:36 | XMS_ITS | Continuity of Care Document ---
Author Organization [facility] Address [address] [place] [address]- Care Team Providers Care Physician Asst Name Role Phone Juan Manuel LIM, Kristen Acosta Primary Care Physic juan alberto [place] [facility] [place] 04/[place]/22 [facility] [address] [place] [address]- Allergies, Adverse Reactions, Alerts Substance Reaction Severity [...] vaccine, inactivated 04/26/09 Arnoldo rded SARS-CoV-2 mRNA (eudeyle-gpzi-hkanc) vax 03/10/22 Recorded SARS-CoV-2 mRNA (vvfsgzb-rkfy-aafbw) vax 10/04/21 Recorded SARS-CoV-2 (COVID-19) mRNA BNT-162b2 [...] tablet, 2 Refills, Maintenance, 02/28/22 8:12:00EDT, Tablet, [facility]/pharmacy #[id number], Partial fill upon patient request if the prescription is for a schedule II opioid drug., 155, cm, 02/23/22 8:04:00 EDT... Start Date: 02/28/22 Status: Ordered baclofen 20 mg oral tablet 20 mg, 1, tablet, By Mouth, 3 times a day, # 270 tablet, Refills 2, Tot. Refills 2, Maintenance, 12/09/22 12:44:00 EDT, Route to Pharmacy Electronically, [facility] [...] 03/14/22 12:44:00 EDT, Route to Pharmacy Electronically, [facility]/pharmacy#[id number], Partial fill upon patient request if [...] 01/06/23 14:02:00 EDT, 01/11/22 14:02:00 EDT, Tablet, [facility], [facility] fill upon [...] 3 Refills, Maintenance, 04/02/22 21:13:00 EDT, Gel, [facility]... Start Date: 04/02/22 Status: Ordered electric [...] Maintenance,05/21/22 7:44:00 EDT, Route to Pharmacy Electronically, [facility] [...] 02/20/22 7:44:00 EDT, [id number] Partial fill upon patient request if the pre... Start Date: 02/20/22 Stop Date: 05/21/22 Status: Ordered Juzo Compression Hose Juzo Compression Hose, See Instructions, # 2 each, Refills 2, Tot. Refills 2, Maintenance, 20-30mmghg FF Petite (short),Vkflm-ctx-jcly, soft knee, black silicone Stock code [id number] Part #[id number], Size III. [facility] [id number], 12/07/21 11:32:00 EDT,... Start Date: 12/07/21 Status: Ordered levothyroxine 0.088 mg oral tablet 1 tablet = 88 mcg, By Mouth, Daily, # 90 tablet, 3 Refills, Maintenance, 03/31/22 13:45:00 EDT, Tablet, [facility], Partial fill upon patient request if the prescription is fora schedule II opioid drug., 155, cm, 03/14/22 11:11... Start Date: 03/31/22 Status: Ordered lisinopril 5 mg oral tablet 5 mg, 1, tablet, By Mouth, Daily, # 90 tablet, Refills 3, Tot. Refills 3, Maintenance, 02/24/22 15:53:00 EDT, [id number] Partial fill upon patient request [...] 03/12/22 Status: Ordered Power [place] Lift with [place] split-leg sling Power [place] Lift with [place] split-leg sling, See Instructions, # 1 each, [...] Name: Juan Manuel LIM, Kristen Acosta Address: [address], [place] [address]
--- OUTSIDE RECORDS SUMMARY | 2024-03-17 13:36 | XMS_ITS | Continuity of Care Document ---
Author Organization [facility] Address [address] [place] [address]- Care Team Providers Care Oil Well Logging Engineer Name Role Phone Juan Manuel LIM, Kristen Acosta Primary Care Physic juan alberto Encounter [facility] Date(s): 10/05/23 - 11/04/23 [facility] [address] [place] [address]- Allergies, Adverse Reactions, Alerts Substance Reaction Severity Status morphine hives, SOB Active penicillins hive Active Wellbutrin rash Active Reglan Active cannabis (Schedule I substance) itching/vomiting Active Other Environmental Allergy mercury-fillings Active contrast media (iodine-based) itching throughout body Active Immunizations Given and Recorded Vaccine Date Status Refusal Reason SARS-CoV-2(COVID-19)mRNA-LNP vac([id number]) 10/19/23 Recorded SARS-CoV-2(COVID-19)mRNA-LNP vac([id number]) 07/03/23 Recorded RSV vaccine preF3, recombinant 05/19/23 [...] influenza virus vaccine, inactivated 04/26/09 Arnoldo rded [id number] 12y+ bivalent booster vax 01/23/23 Recorded GLNB-AoV-0oSIB 12y+ bivalent booster vax 05/12/22 Recorded pneumococcal 20-valent conjugate vaccine 05/30/22 Recorded SARS-CoV-2 mRNA (xvwnqdh-xwlz-wokle) vax 03/10/22 Recorded SARS-CoV-2 mRNA (qqmfbpc-evpf-jzlna) vax 10/04/21 Recorded SARS-CoV-2 (COVID-19) mRNA BNT-162b2 [...] 1 Refills, Maintenance, 08/01/23 13:53:00 EST, Tablet, [facility]/pharmacy #[id number], Partial [...] 06/01/24 12:44:00 EDT, Route to Pharmacy Electronically, [facility] [...] EST, Route to Pharmacy Electronically, [facility]/pharmacy#[id number], Partial fill upon patient request if the pre... Start Date: 09/05/23 Stop Date: 06/01/24 Status: Ordered bifidobacterium-lactobacillus oral tablet 2 tablet, By Mouth, 2 times a day, [facility] Brand please ([facility] [...] 07/03/23 1:01:00 EST, Route to Pharmacy Electronically, [facility], 155, cm, 05/28/23 [...] Maintenance,02/15/23 7:44:00 EDT, Route to Pharm[facility] Electronically, [facility], Partial fill upon patient request if the prescription is for... Start Date: 02/15/23 Stop Date: 11/12/23 Status: Ordered Juzo Compression Hose Juzo Compression Hose, See Instructions, # 2 each, Refills 2, Tot. Refills 2, Maintenance, Juzo Compression Hose 2 pairs hfpry-guc-pdcr Soft Knee FF Petite 20-30 mmHg Silicone, Black Stock Code [id number] I I I Part #09164 Size I I I SKU... Start Date: 03/12/23 Status: Ordered levothyroxine 0.088 mg oral tablet 1 tablet = 88 mcg, By Mouth, Daily, # 90 tablet, 1 Refills, Maintenance, 10/01/23 17:11:00 EST, Tablet, [facility]/pharmacy #[id number], Partial fill upon patient request if the prescription is for a schedule II opioid drug., 155, cm, 05/28/23 11:02:00 EDT, Height... Start Date: 10/01/23 Status: Ordered lisinopril 5 mg oral tablet 1, tablet, By Mouth, Daily, # 90 tablet, Refills 1, Tot. Refills 1, Maintenance, 10/01/23 17:15:00 EST, Route to Pharmacy Electronically, [facility]/pharmacy #[id number], 155, cm, 05/28/23 11:02:00 EDT, Height, 93.4, kg, 11/01/21 16:52:00 EDT, Dry Weight Start Date: 10/01/23 Status: Ordered Mapap 500 mg oral capsule See Instructions, TAKE 2 CAPSULES BY MOUTH 4 TIMES A DAY NEEDED FOR PAIN, # 480 capsule, 0 Refills, Maintenance, 10/01/23 17:46:00 EST, [facility]/pharmacy #[id number], 155, cm, 05/28/23 11:02:00 EDT, Height, 93.4, kg, 11/01/21 16:52:00 EDT, Dry Weight Start Date: 10/01/23 Status: Ordered Power [place] Lift with [place] split-leg sling Power [place] Lift with [place] split-leg sling, See Instructions, # 1 each, [...] 0 Refills, Maintenance, 08/08/23 18:05:00 EST, Tablet, [facility]/pharmacy #[id number], Partial [...] 03/14/24 2:50:00 EDT, 11/23/23 2:50:00 EDT, Tablet, [facility]/pharmacy #[id number], [place]... Start Date: 11/23/23 Stop Date: 03/14/24 Status: Ordered Provigil 200 mg oral tablet 1 tablet = 200 mg, By Mouth, 2 times a day, for 28 days, takes in am and lunchtime brand name only - dispense as written Brand name only, # 56 tablet, 3 Refills, Hard Stop 11/23/23 2:50:00 EDT, 08/03/23 2:50:00 EST, Tablet, [facility]... Start Date: [...] 90 capsule, 1 Refills, 12/11/22 15:16:00 EDT, [facility]/pharmacy #[id number], 155, cm, [...] Team Personnel Name: Juliann Rich RN Position: [facility] RN Member Role: Primary Care Nurse Name: Elsa Allen NP Position: [facility] Outreach Member Role: Primary Care Nurse Address: Address: [address] [facility] [place] [address]- Name: Emma Mendoza RN Position: [facility] Nurse Member Role: Primary Care Nurse Name: Juan Manuel LIM, Kristen Acosta Position: [facility] Physician - Primary Care Member Role: PCP Address: Address: [address] [place] [id number] Name: Komal Goodrich Position: [facility] Outreach Member Role: Lifetime Consulting Physician Name: Godfrey Cano Position: [facility] RN Member Role: Primary Care Nurse Name: Anette Miranda RN Position: [facility] Onco RN Member Role: Primary Care Nurse Care Team Related Persons Name: DIOMEDES WARNER Address: [address] [place] [address] Name: MOO HOWELL Address: [address] [place] [address] Name: MARLON GENTILE
--- OUTSIDE RECORDS SUMMARY | 2024-03-17 13:36 | XMS_ITS | Continuity of Care Document ---
Author Organization [facility] Address [address] [place] [address]- Care Team Providers Care Hostess Name Role Phone Juan Manuel LMI, Kristen Acosta Primary Care Physic juan alberto Encounter [facility] Date(s): 12/27/22 - 01/26/23 [facility] [address] [place] [address]- Allergies, Adverse Reactions, Alerts Substance Reaction Severity Status morphine hives, SOB Active penicillins hive Active Wellbutrin rash Active Reglan Active cannabis (Schedule I substance) itching/vomiting Active Other Environmental Allergy mercury-fillings Active contrast media (iodine-based) itching throughout body Active Immunizations Given and Recorded Vaccine Date Status Refusal Reason pneumococcal 20-valent conjugate vaccine 05/30/22 Recorded [id number]-ReZ-9cDDR 12y+ bivalent booster vax 05/12/22 Recorded influenza [...] vaccine, inactivated 04/26/09 Arnoldo rded SARS-CoV-2 mRNA (wmxjbzf-aduu-nuodq) vax 03/10/22 Recorded SARS-CoV-2 mRNA (mudomsq-bvwb-tawqp) vax 10/04/21 Recorded SARS-CoV-2 (COVID-19) mRNA BNT-162b2 [...] Refills, Maintenance, 12/11/22 17:34:00 EDT, Tablet, [facility]/pharmacy #[id number], Partial fill upon patient request if the prescription is for a schedule II opioid drug., 155, cm, 10/10/22 13:40:00 E... Start Date: 12/11/22 Status: Ordered baclofen 20 mg oral tablet 20 mg, 1, tablet, By Mouth, 3 times a day, # 270 tablet, Refills 2, Tot. Refills 2, Maintenance, 12/09/22 12:44:00 EDT, Route to Pharmacy Electronically, [facility], Partial fill upon patient request if the prescription is for a... Start Date: 12/09/22 Stop Date: 09/05/23 Status: Ordered bifidobacterium-lactobacillus oral tablet 2 tablet, By Mouth, 2 times a day, [facility] Brand please ([facility]), # 360 tablet, 3 Refills, Maintenance, 08/11/21 17:02:00 EST, Tablet, [facility]/pharmacy #[id number], Partial fill upon patient request if the prescription is for a schedule II opioid drug., 2... Start Date: 08/11/21 Stop Date: 08/06/22 Status: Ordered calcium carbonate 600 mg oral tablet 1 tablet = 600 mg, By Mouth, 2 times a day, # 180 tablet, 2 Refills, Maintenance, 01/06/23 14:02:00EDT, Tablet, [facility]/pharmacy #[id number], Partial fill [...] DAY Start Date: 11/01/21 Status: Ordered [facility] Senior Probiotic Capsule [facility] Senior Probiotic Capsule, See Instructions, # [...] Soft Stop, 05/26/22 8:59:00 EDT, Tablet, [facility]/pharmacy #[id number], Partial [...] EDT, Route to Pharmacy Electronically, [facility], 155, cm, 10/10/22 13:40:00 EST, Height, 93.4,kg, 11/01/21 16:52:00 EDT, Dry Weight Start Date: 01/17/23 Status: Ordered gabapentin 300 mg oral capsule 300 mg, 1, capsule, By Mouth, 3 times a day, for 90 days, # 270 capsule, Refills 2, Tot. Refills 2,Hard Stop 02/15/23 7:44:00 EDT, 05/21/22 7:44:00 EDT, Route to Pharmacy Electronically, [facility], Partial fill upon patient re... Start Date: 05/21/22 Stop Date: 02/15/23 Status: Ordered gabapentin 300 mg oral capsule 300 mg, 1, capsule, By Mouth, 3 times a day, # 270 capsule, Refills 2, Tot. Refills 2, Maintenance,02/15/23 7:44:00 EDT, Route to Pharmacy Electronically, [facility], Partial fill upon patient request if the prescription is for... Start Date: 02/15/23 Stop Date: 11/12/23 Status: Ordered Juzo Compression Hose Juzo Compression Hose, See Instructions, # 2 each, Refills 2, Tot. Refills 2, Maintenance, 20-30mmghg FF Petite (short),Uyiqr-pnp-aywu, soft knee, black silicone Stock code [id number] Part #[id number], Size III. [facility] [id number], 12/07/21 11:32:00 EDT,... Start Date: 12/07/21 Status: Ordered levothyroxine 0.088 mg oral tablet 1 tablet = 88 mcg, By Mouth, Daily, # 90 tablet, 1 Refills, Maintenance, 09/08/22 14:26:00 EST, Tablet, [facility], Partial fill upon patient request if the prescription is fora schedule II opioid drug., 155, cm, 07/12/22 14:10... Start Date: 09/08/22 Status: Ordered lisinopril 5 mg oral tablet 1, tablet, By Mouth, Daily, # 90 tablet, Refills 1, Maintenance, 01/22/23 21:39:00 EDT, Route to Pharmacy Electronically, [facility], 155, cm, 10/10/22 13:40:00 EST, Height, 93.4,kg, 11/01/21 16:52:00 EDT, Dry Weight Start Date: 01/22/23 Status: Ordered Mapap 500 mg oral capsule See Instructions, TAKE 2 CAPSULES BY MOUTH 4 TIMES A DAY NEEDED FOR PAIN, # 480 capsule, 3 Refills, Maintenance, 06/04/22 16:03:00 EDT, [facility]ORE [id number], 155, cm, 05/25/22 13:44:00 EDT, Height, 93.4, kg, 11/01/21 16:52:00 EDT, Dry Weight Start Date: 06/04/22 Status: Ordered Power [place] Lift with [place] [...] capsule, 1 Refills, 12/11/22 15:16:00 EDT, [facility]/pharmacy #[id number], 155, cm, 10/10/22 13:40:00 EST, [...] Role: Primary Care Nurse Address: Address: [address] [place] [address] [address] [place] [address]- [place] Name: Emma Mendoza RN Position: [facility] AMB Nurse Member Role: Primary Care Nurse Name: Juan Manuel LIM, Kristen Acosta Position: [facility] Physician - Primary Care Member Role: PCP Address: Address: [address] [place] [address]- Name: Komal Goodrich Position: [facility] Outreach Member Role: Lifetime Consulting Physician Name: Godfrey Cano Position: [facility] RN Member Role: Primary Care Nurse Name: Anette Miranda RN Position: [facility] Onco RN Member Role: Primary Care Nurse Care Team Related Persons Name: DIOMEDES WARNER Address: [address] [place] [address] Name: MOO HOWELL Address: [address] [place] [address] Name: MARLON GENTILE
--- OUTSIDE RECORDS SUMMARY | 2024-03-17 13:37 | XMS_ITS | Continuity of Care Document ---
Author Organization [facility] Address Unknown Care Team Providers Care Environmental Health Technologist Name Role Phone Juan Manuel LIM, Kristen Acosta Primary Care Physic juan alberto [facility] Date(s): 01/23/22 - 03/19/22 [facility] Attending Physician: Efrem Escalante MD Allergies, Adverse Reactions, Alerts Substance Reaction Severity Status morphine hives, SOB Active penicillins hive Active Wellbutrin rash Active Reglan Active cannabis (Schedule I substance) itching/vomiting Active Other Environmental Allergy mercury-fillings Active contrast media (iodine-based) itching throughout body Active Immunizations Given and Recorded Vaccine Date Status Refusal Reason SARS-CoV-2 mRNA (hqhcjgj-pevr-itjmt) vax 10/04/21 Recorded influenza virus vaccine, inactivated [...] EDT, 08/22/21 17:46:00 EST, Capsule, [facility]/pharmacy #[id number], Partial fill upon patient request if the prescription is for a schedul... Start Date: 08/22/21 Stop Date: 04/19/22 Status: Ordered ascorbic acid 1000 mg oral tablet 1 tablet = 1,000 mg, By Mouth, 2 times a day, # 90 tablet, 2 Refills, Maintenance, 02/28/22 8:12:00EDT, Tablet, [facility]/pharmacy #[id number], Partial fill upon patient request if the prescription is for a schedule II opioid drug., 155, cm, 02/23/22 8:04:00 EDT... Start Date: 02/28/22 Status: Ordered baclofen 20 mg oral tablet 20 mg, 1, tablet, By Mouth, 3 times a day, # 270 tablet, Refills 2, Tot. Refills 2, Maintenance, 03/14/22 12:44:00 EDT, Route to Pharmacy Electronically, [facility]/pharmacy #[id number], Partial fill upon patientrequest if the prescription is for a schedule II op... Start Date: 03/14/22 Stop Date: 12/09/22 Status: Ordered bifidobacterium-lactobacillus oral tablet 2 tablet, By Mouth, 2 times a day, [facility] ([facility]), # 360 tablet, 3 Refills, Maintenance, 08/11/21 17:02:00 EST, Tablet, [facility]/pharmacy #[id number], Partial fill upon patient request if the prescription is for a schedule II opioid drug., 2... Start Date: 08/11/21 Stop Date: 08/06/22 Status: Ordered calcium carbonate 600 mg oral tablet 1 tablet = 600 mg, By Mouth, 2 times a day, # 180 tablet, 2 Refills, Maintenance, 01/06/23 14:02:00EDT, Tablet, [facility]/pharmacy #[id number], Partial fill upon patient request if [...] 01/11/22 14:02:00 EDT, Tablet, [facility], Partial fill upon patient request if the prescription is for a schedul... Start Date: 01/11/22 Stop Date: 01/06/23 Status: Ordered Centrum Silver Ultra Women's oral tablet 1 tablet, By Mouth, Daily, 0 Refills, Maintenance, 07/09/18 8:43:55 EST Start Date: 07/09/18 Status: Ordered [facility] SENIOR PROBIOTIC CAPSULE TAKE 2 CAPSULES BY MOUTH TWICE A DAY Start Date: 11/01/21 Status: Ordered diclofenac 1% topical gel 1 application, Topically, 4 times a day, # 100 Gm, 3 Refills, Maintenance, 01/11/22 14:07:00 EDT, Gel, [facility], Partial fill upon patient [...] Refills, 03/02/22 8:08:00 EDT, [facility]/pharmacy #[id number], 155, cm, 02/23/22 8:04:00 EDT, Height, [...] Route to Pharmacy Electronically, [facility], Partial fill upon patient [...] 01/11/22 13:45:00 EDT, Route to Pharmacy Electronically, [facility] ADIS... Start Date: 01/11/22 Status: Ordered gabapentin 300 mg oral capsule 300 mg, 1, capsule, By Mouth, 3 times a day, # 90 capsule, Refills 2, Tot. Refills 2, Maintenance, 02/20/22 7:44:00 EDT, Route to Pharmacy Electronically, [facility]/pharmacy #[id number], Partial fill upon patient request if the prescription is for a schedule II o... Start Date: 02/20/22 Stop Date: 05/21/22 Status: Ordered Juzo Compression Hose Juzo Compression Hose, See Instructions, # 2 each, Refills 2, Tot. Refills 2, Maintenance, 20-30mmghg FF Petite (short),Sayyv-mrf-uprk, soft knee, black silicone Stock code [id number] Part #[id number], Size III. [facility] [id number], 12/07/21 11:32:00 EDT,... Start Date: 12/07/21 Status: Ordered levothyroxine 0.088 mg oral tablet 1 tablet = 88 mcg, By Mouth, Daily, # 90 tablet, 1 Refills, Maintenance, 07/13/21 14:09:00 EST, Tablet, [facility], Partial fill upon patient request if the prescription is fora schedule II opioid drug., 153, cm, 06/27/21 7:47:... Start Date: 07/13/21 Status: Ordered lisinopril 5 mg oral tablet 5 mg, 1, tablet, By Mouth, Daily, # 90 tablet, Refills 3, Tot. Refills 3, Maintenance, 02/24/22 15:53:00 EDT, Route to Pharmacy Electronically, [facility]/pharmacy #[id number], Partial fill upon patient request if the prescription is for a schedule II opioid drug.... Start Date: 02/24/22 Status: Ordered Potassium Chloride (Eqv-K-Tab) 20 mEq oral tablet, extended release 1 tablet = 20 mEq, By Mouth, Daily, for low potassium, # 10 tablet, 0 Refills, Maintenance, 03/02/22 19:14:00 EDT, [facility]/pharmacy #[id number], Partial fill upon patient request if the prescription is for a schedule II opioid drug., 155, cm, 02/23/22 8:04:00 E... Start Date: 03/02/22 Stop Date: 03/12/22 Status: Ordered Power Virginia Lift with [place] split-leg sling Power [place] Lift with [place] split-leg sling, See Instructions, # 1 each, [...] Maintenance, 02/28/22 8:12:00 EDT, Tablet, [facility]/pharmacy #[id number], Partial fill upon patient request if [...] Refills, 02/28/22 8:13:00 EDT, [facility]/pharmacy #[id number], 155,cm, 02/23/22 8:04:00 EDT, Height, 93.4, kg, 11/01/21 16:52:00 EDT, Dry Weight Start Date: 02/28/22 Status: Ordered Xarelto 20 mg oral tablet 1 tablet = 20 mg, By Mouth, Daily at supper, # 90 tablet, 3 Refills, Maintenance, 02/01/22 12:42:00EDT, Tablet, [facility], Partial fill upon [...]
--- OUTSIDE RECORDS SUMMARY | 2024-03-17 13:37 | XMS_ITS | Continuity of Care Document ---
Author Organization [facility] Address [address] [place] [address]- Care Team Providers Care Group Marketing Vp Name Role Phone Juan Manuel LIM, Kristen Acosta Primary Care Physic juan alberto Encounter [facility] Date(s): 05/18/22 - 07/22/22 [facility] [address] [place] [address]- Discharge Disposition: A-D/C Home Attending Physician: Ila [...] Reason pneumococcal 20-valent conjugate vaccine 05/30/22 Recorded [id number]-KeP-1kLRF 12y+ bivalent booster vax 05/12/22 Recorded influenza [...] vaccine, inactivated 04/26/09 Arnoldo rded SARS-CoV-2 mRNA (tcoldyc-xtro-hrbrq) vax 03/10/22 Recorded SARS-CoV-2 mRNA (wabxvci-augm-cdnlv) vax 10/04/21 Recorded SARS-CoV-2 (COVID-19) mRNA BNT-162b2 [...] tablet, 2 Refills, Maintenance, 02/28/22 8:12:00EDT, Tablet, [facility]/pharmacy #[id number], Partial fill upon patient request if the prescription is for a schedule II opioid drug., 155, cm, 02/23/22 8:04:00 EDT... Start Date: 02/28/22 Status: Ordered baclofen 20 mg oral tablet 20 mg, 1, tablet, By Mouth, 3 times a day, # 270 tablet, Refills 2, Tot. Refills 2, Maintenance, 12/09/22 12:44:00 EDT, Route to Pharmacy Electronically, [facility], Partial fill upon patient [...] a day, [facility] Brand please ([facility]), # 360 tablet, 3 Refills, [...] 01/06/23 14:02:00 EDT, 01/11/22 14:02:00 EDT, Tablet, [facility], Partial fill upon patient request [...] 07/25/22 8:59:00 EST, 05/26/22 8:59:00 EDT, Cream, [facility]/pharmacy #[id number], Partial fill upon patient request if the prescription is for a schedule II opioid drug., 1 applicat... Start Date: 05/26/22 Stop Date: 07/25/22 Status: Ordered [facility] SENIOR PROBIOTIC [...] 01/11/22 13:45:00 EDT, Route to Pharmacy Electronically, [facility] ADIS... Start Date: 01/11/22 Status: Ordered gabapentin [...] Tot. Refills 2, Maintenance, 20-30mmghg FF Petite (short),Bpmqo-joz-iiyy, soft knee, black silicone Stock code [id number] Part #[id number], Size III. [facility] [id number], 12/07/21 11:32:00 EDT,... Start Date: 12/07/21 Status: Ordered levothyroxine 0.088 mg oral tablet 1 tablet = 88 mcg, By Mouth, Daily, # 90 tablet, 3 Refills, Maintenance, 03/31/22 13:45:00 EDT, Tablet, [facility], Partial [...] 06/04/22 16:03:00 EDT, [facility] STORE [id number], 155, cm, 05/25/22 13:44:00 EDT, Height, 93.4, [...] 03/12/22 Status: Ordered Power Virginia Lift with [place] split-leg sling Power [place] Lift with [place] split-leg sling, See Instructions, # 1 each, [...] 3 Refills, Maintenance, 07/12/22 17:46:00 EST, Tablet, [facility]/pharmacy [...] EDT, 07/05/22 18:25:00 EST, Tablet, [facility], Parti... Start Date: 07/05/22 Stop Date: [...] tablet, 3 Refills, Maintenance, 02/01/22 12:42:00EDT, Tablet, [facility], Partial fill upon patient request if [...] lifetime) entered on: 10/31/21 Sex Note * Ryanne March [place]: PERFORM, SIGN, VERIFY Event Display: Patient Education/Instruction Authored Date: [id number] [facility] *Heme/Onc Adult Clinical Summary Name CHANEL ACOSTA Age 67 Years 1955 PCP Juan Manuel LIM, Kristen Acosta PCP Visit Date 05/18/2022 11:46:00 Additional Instructions: Scheduled Appointments?? Future Appointments ?*[facility] ?[id number]??[place],??[place],??[address] ?Phone:??--?Fax:??-- ?Appt. Date:??05/22/2022?2:40 PM ?Scheduled Provider:??Kary Johnson MD ?*[facility] ?[address]??[place],??[place],??[address] ?Phone:??--?Fax:??-- ?Appt. Date:??07/12/2022?2:00 PM ?Scheduled Provider:??Mari Velásquez Follow-Up Instructions ?? With: Address: When: Blake Thorpe [facility] [address], [place] [id number] Business (1) 05/22/2023 11:00 AM Diagnosis Medications: Please continue your medications until treatment is completed or stopped by your provider. Discuss any questions related to medications with your provider. Medications to Continue Taking That Have Changed These medications were not printed or sent to your pharmacy - Gabapentin (gabapentin 300 mg oral capsule) 1 capsule Oral 3 times a day for 90 Days. Refills: 2. Next Dose: Medications to Continue with No Changes These medications were not printed or sent to your pharmacy Ascorbic Acid (ascorbic acid 1000 mg oral tablet) 1 tab(s) Oral twice a day. Refills: 2. Next Dose: Baclofen (baclofen 20 mg oral tablet) 1 tab(s) Oral 3 times a day for 90 Days. Refills: 2. Next Dose: Baclofen (baclofen 20 mg oral tablet) 1 tab(s) Oral 3 times a day for 90 Days. Refills: 2. Next Dose: bifidobacterium-lactobacillus (bifidobacterium-lactobacillus oral tablet) 2 tab(s) Oral twice a dayfor 90 Days. [facility] please ([facility]). Refills: 3. Next Dose: Calcium Carbonate [...] (Juzo Compression Hose) 20-30mmg hg FF Petite (short),Rqdza-ces-yejx, soft knee, black silicone Stock code [id number] Part #79990, Size III. [facility] [id number]. Refills: 2. Next Dose: Durable Medical Equipment (Power [place] Lift with [place] split-leg sling) Dx: Multiple Sclerosis induced Paraplegia Length of time needed: indefinite Purpose: Transfer to/[facility] bed to wheelchair, commode, shower chair. Refills: 0. Next Dose: Durable Medical Equipment (RIGHT RESTING HAND SPLINT) DX: FLEXION CONTRACTURE OF FINGERS D/T MS. Refills: 0. Next Dose: Estradiol Topical (estradiol 0.1 mg/g vaginal cream) Next Dose: Furosemide (furosemide 40 mg oral tablet) 1 tab(s) Oral Daily. Refills: 3. Next Dose: Furosemide (furosemide 40 mg oral tablet) 1 tab(s) Oral twice a day. Take as needed for acute episodes of lower extremity edema for 2 days at a time.. Refills: 0. Next Dose: Levothyroxine (levothyroxine 0.088 mg oral tablet) 1 tab(s) Oral Daily. Refills: 3. Next Dose: Lisinopril (lisinopril 5 mg oral tablet) 1 tab(s) Oral Daily. Refills: 3. Next Dose: Miscellaneous Rx (electric virginia lift [...] home through a free online portal called [employer]. [employer] is a website that allows you to securely view your medical information including discharge summary, medications and follow-up visits. ??You can alsosend a secure electronic message to your doctor???s office to request appointments, renew medications or just ask a question. You can enroll at [email or web address] or register during your next office [...] care provider, you may find a [facility] provider by calling [facility] [employer] Link at [phone]. For information about the plan of care [...] Member Role: Primary Care Nurse Address: Address: [address] [place] [address] [address] [facility] [place] [address]- [place] Name: Emma Mendoza RN Position: [facility] RN Member Role: Primary Care Nurse Name: Juan Manuel LIM, Kristen Acosta Position: [facility] Primary Care Physician Member Role: PCP Address: Address: [address] [place] [address]- Name: Jade Medina Position: S RN Member Role: Primary Care Nurse Name: Komal Goodrich Position: [facility] Outreach Member Role: Lifetime Consulting Physician Name: Godfrey Cano Position: [facility] RN Member Role: Primary Care Nurse Name: Anette Miranda RN Position: [facility] Onco RN Member Role: Primary Care Nurse Care Team Related Persons Name: DIOMEDES WARNER Address: home [address] [place] [address] Name: MOO HOWELL Address: home [address] [place] [address] Name: MARLON GENTILE
--- OUTSIDE RECORDS SUMMARY | 2024-03-17 13:37 | XMS_ITS | Continuity of Care Document ---
Author Organization [facility] Address [address] [place] [address]- Care Team Providers Care Control Clerk Head Name Role Phone Juan Manuel LIM, Kristen Acosta Primary Care Physic juan alberto Encounter [facility] Date(s): 05/08/22 - 06/07/22 [facility] [address], [place] [address] Allergies, Adverse Reactions, Alerts Substance [...] vaccine, inactivated 04/26/09 Arnoldo rded SARS-CoV-2 mRNA (zryrmdn-znkm-sqaxm) vax 03/10/22 Recorded SARS-CoV-2 mRNA (jffnemt-dfqd-nwhjd) vax 10/04/21 Recorded SARS-CoV-2 (COVID-19) mRNA BNT-162b2 [...] 12:44:00 EDT, Route to Pharmacy Electronically, [facility] [...] 01/06/23 14:02:00 EDT, 01/11/22 14:02:00 EDT, Tablet, [facility], Partial fill [...] 07/25/22 8:59:00 EST, 05/26/22 8:59:00 EDT, Cream, [facility]/pharmacy #[id number], Partial fill upon patient request if the prescription is for a schedule II opioid drug., 1 applicat... Start Date: 05/26/22 Stop Date: 07/25/22 Status: Ordered [facility] SENIOR PROBIOTIC CAPSULE [...] 9:03:00 EDT, Route to Pharmacy Electronically, [facility] [...] 01/11/22 13:45:00 EDT, Route to Pharmacy Electronically, [facility] ADIS... Start Date: 01/11/22 Status: Ordered gabapentin 300 mg oral capsule 300 mg, 1, capsule, By Mouth, 3 times a day, # 270 capsule, Refills 2, Tot. Refills 2, Maintenance,05/21/22 7:44:00 EDT, Route to Pharmacy Electronically, [facility], Partial fill upon patient request if the prescription is for... Start Date: 05/21/22 Stop Date: 02/15/23 Status: Ordered Juzo Compression Hose Juzo Compression Hose, See Instructions, # 2 each, Refills 2, Tot. Refills 2, Maintenance, 20-30mmghg FF Petite (short),Hyfbc-kyr-isit, soft knee, black silicone Stock code [id number] Part #33622, Size III. SKU [id number], 12/07/21 11:32:00 EDT,... Start Date: 12/07/21 Status: Ordered levothyroxine 0.088 mg oral tablet 1 tablet = 88 mcg, By Mouth, Daily, # 90 tablet, 3 Refills, Maintenance, 03/31/22 13:45:00 EDT, Tablet, [facility], Partial fill [...] Maintenance, 06/04/22 16:03:00 EDT, [facility] STORE [id number], 155, cm, 05/25/22 13:44:00 EDT, Height, 93.4, [...] 03/12/22 Status: Ordered Power Virginia Lift with [place] split-leg sling Power [place] Lift with [place] split-leg sling, See Instructions, # 1 each, [...] 3 Refills, Maintenance, 02/28/22 8:12:00 EDT, Tablet, [facility]/pharmacy #[id number], Partial fill [...] tablet, 3 Refills, Maintenance, 02/01/22 12:42:00EDT, Tablet, [facility], Partial fill [...] Juan Manuel LIM, Kristen Acosta Address: Address: [address] [place] [id number]
--- OUTSIDE RECORDS SUMMARY | 2024-03-17 13:37 | XMS_ITS | Continuity of Care Document ---
Author Organization [facility] Address [address] [place] [address]- Care Team Providers Care Tenter Feeder Name Role Phone Juan Manuel LIM, Kristen Acosta Primary Care Physic juan alberto Encounter [facility] Date(s): 10/18/22 - 11/17/22 [facility] [address] [place] [address]- Allergies, Adverse Reactions, Alerts Substance Reaction Severity Status morphine hives, SOB Active Wellbutrin rash Active Reglan Active contrast media (iodine-based) itching throughout body Active Other Environmental Allergy mercury-fillings Active penicillins hive Active cannabis (Schedule I substance) itching/vomiting Active Immunizations Given and Recorded Vaccine Date Status Refusal Reason pneumococcal 20-valent conjugate vaccine 05/30/22 Recorded [id number]-DtC-[id number] 12y+ bivalent booster vax 05/12/22 Recorded influenza [...] vaccine, inactivated 04/26/09 Arnoldo rded SARS-CoV-2 mRNA (divofcr-ojtd-qruqx) vax 03/10/22 Recorded SARS-CoV-2 mRNA (nabbbxx-axxg-ncxwm) vax 10/04/21 Recorded SARS-CoV-2 (COVID-19) mRNA BNT-162b2 [...] 0 Refills, Maintenance, 10/05/22 9:35:00EST, Tablet, [facility]/pharmacy #[id number], Partial fill upon patient request if the prescription is for a schedule II opioid drug., 155, cm, 09/26/22 14:02:00 ES... Start Date: 10/05/22 Status: Ordered baclofen 20 mg oral tablet 20 mg, 1, tablet, By Mouth, 3 times a day, # 270 tablet, Refills 2, Tot. Refills 2, Maintenance, 12/09/22 12:44:00 EDT, Route to Pharmacy Electronically, [facility], Partial fill upon patient request if the prescription is for a... Start Date: 12/09/22 Stop Date: 09/05/23 Status: Ordered baclofen 20 mg oral tablet 20 mg, 1, tablet, By Mouth, 3 times a day, for 90 days, # 270 tablet, Refills 2, Tot. Refills 2, Hard Stop 12/09/22 12:44:00 EDT, 03/14/22 12:44:00 EDT, Route to Pharmacy Electronically, [facility]/pharmacy#[id number], Partial fill upon patient request [...] 01/06/23 14:02:00 EDT, 01/11/22 14:02:00 EDT, Tablet, [facility], Partial fill upon patient request if the prescription is for a schedul... Start Date: 01/11/22 Stop Date: 01/06/23 Status: Ordered Centrum Silver Ultra Women's oral tablet 1 tablet, By Mouth, Daily, 0 Refills, Maintenance, 07/09/18 8:43:55 EST Start Date: 07/09/18 Status: Ordered ciprofloxacin 500 mg oral tablet 1 tablet = 500 mg, By Mouth, Every 12 hours, for 7 days, # 14 tablet, 0 Refills, Acute 11/20/22 16:57:00 EDT, 11/13/22 16:57:00 EDT, Tablet, [facility]/pharmacy #[id number], Partial fill upon patient request if the prescription is for a schedule II opioid drug., 1... Start Date: 11/13/22 Stop Date: 11/20/22 Status: Ordered [facility] SENIOR [...] 01/11/22 13:45:00 EDT, [facility] Start Date: 01/11/22 Status: Ordered gabapentin 300 mg oral capsule 300 mg, 1, capsule, By Mouth, 3 times a day, for 90 days, # 270 capsule, Refills 2, Tot. Refills 2,Hard Stop 02/15/23 7:44:00 EDT, 05/21/22 7:44:00 EDT, Route to Pharmacy Electronically, [facility] [...] Tot. Refills 2, Maintenance, 20-30mmghg FF Petite (short),Tnnaj-szn-qdfx, soft knee, black silicone Stock code [id number] Part #46089, Size III. [facility] [id number], 12/07/21 11:32:00 EDT,... Start Date: 12/07/21 Status: Ordered levothyroxine 0.088 mg oral tablet 1 tablet = 88 mcg, By Mouth, Daily, # 90 tablet, 1 Refills, Maintenance, 09/08/22 14:26:00 EST, Tablet, [facility], Partial fill upon patient request if the prescription is fora schedule II opioid drug., 155, cm, 07/12/22 14:10... Start Date: 09/08/22 Status: Ordered lisinopril 5 mg oral tablet 5 mg, 1, tablet, By Mouth, Daily, # 90 tablet, Refills 3, Tot. Refills 3, Maintenance, 02/24/22 15:53:00 EDT, Route to Pharmacy Electronically, [facility]/pharmacy #[id number], Partial fill upon patient request if the prescription is for a schedule II opioid drug.... Start Date: 02/24/22 Status: Ordered lisinopril 5 mg oral tablet See Instructions, TAKE 1 TABLET DAILY, # 90 tablet, Refills 1, Maintenance, 09/24/22 19:24:00 EST, Instructions Replace Required Details, Route to Pharmacy Electronically, [facility], 155, cm, 07/12/22 14:10:00 EST, Height, 93.4, k... Start Date: 09/24/22 Status: Ordered Mapap 500 mg oral capsule See Instructions, TAKE 2 CAPSULES BY MOUTH 4 TIMES A DAY NEEDED FOR PAIN, # 480 capsule, 3 Refills, Maintenance, 06/04/22 16:03:00 EDT, [facility] STORE [id number], 155, cm, 05/25/22 13:44:00 EDT, Height, 93.4, kg, 11/01/21 16:52:00 EDT, Dry Weight Start Date: 06/04/22 Status: Ordered Power [place] Lift with [place] split-leg sling Power [place] Lift with [place] split-leg sling, See Instructions, # 1 each, [...] Refills, Maintenance, 10/05/22 17:39:00 EST, Tablet, [facility]/pharmacy #[id number], [...] capsule, 2 Refills, 02/28/22 8:13:00 EDT, [facility]/pharmacy #[id number], 155,cm, 02/23/22 8:04:00 EDT, [...] Member Role: Primary Care Nurse Address: Address: [address] [place] [address] [address] [place] [address]- [place] Name: Emma Mendoza RN Position: [facility] RN Member Role: Primary Care Nurse Name: Juan Manuel LIM, Kristen Acosta Position: [facility] Primary Care Physician Member Role: PCP Address: Address: [address] [place] [address]- Name: Jade Medina Position: [facility] RN Member Role: Primary Care Nurse Name: Komal Goodrich Position: [facility] Outreach Member Role: Lifetime Consulting Physician Name: Godfrey Cano Position: [facility] RN Member Role: Primary Care Nurse Name: Anette Miranda RN Position: [facility] Onco RN Member Role: Primary Care Nurse Care Team Related Persons Name: ALANAFRANCHESCADIOMEDES Address: [address] [place] [address] Name: MOO HOWELL Address: [address] [place] [address] Name: MARLON GENTILE
--- OUTSIDE RECORDS SUMMARY | 2024-03-17 13:37 | XMS_ITS | Continuity of Care Document ---
Author Organization [facility] Address [address] [place] [address]- Care Team Providers Care Audiovisual Librarian Name Role Phone Juan Manuel LIM, Kristen Acosta Primary Care Physic juan alberto [facility] Date[facility]): 09/27/22 - 10/27/22 [facility] [address] [place] [address]- Allergies, Adverse Reactions, Alerts Substance Reaction Severity Status morphine hives, SOB Active Wellbutrin rash Active Reglan Active contrast media (iodine-based) itching throughout body Active penicillins hive Active cannabis (Schedule I substance) itching/vomiting Active Other Environmental Allergy mercury-fillings Active Immunizations Given and Recorded Vaccine Date Status Refusal Reason pneumococcal 20-valent conjugate vaccine 05/30/22 Recorded [id number] 12y+ bivalent booster vax 05/12/22 Recorded influenza [...] vaccine, inactivated 04/26/09 Arnoldo rded SARS-CoV-2 mRNA (opfybha-ticf-pbqpy) vax 03/10/22 Recorded SARS-CoV-2 mRNA (ddruinl-xfey-gukas) vax 10/04/21 Recorded SARS-CoV-2 (COVID-19) mRNA BNT-162b2 [...] 0 Refills, Maintenance, 10/05/22 9:35:00EST, Tablet, [facility]/pharmacy #[id number], Partial fill upon patient request if the prescription is for a schedule II opioid drug., 155, cm, 09/26/22 14:02:00 ES... Start Date: 10/05/22 Status: Ordered baclofen 20 mg oral tablet 20 mg, 1, tablet, By Mouth, 3 times a day, # 270 tablet, Refills 2, Tot. Refills 2, Maintenance, 12/09/22 12:44:00 EDT, Route to Pharmacy Electronically, [facility], Partial fill upon patient request if the prescription is for a... Start Date: 12/09/22 Stop Date: 09/05/23 Status: Ordered baclofen 20 mg oral tablet 20 mg, 1, tablet, By Mouth, 3 times a day, for 90 days, # 270 tablet, Refills 2, Tot. Refills 2, Hard Stop 12/09/22 12:44:00 EDT, 03/14/22 12:44:00 EDT, [id number] Partial fill upon patient request if [...] 14:02:00 EDT, 01/11/22 14:02:00 EDT, Tablet, [facility], Partial fill upon patient [...] 9:03:00 EDT, Route to Pharmacy Electronically, [facility], Partial fill upon patient [...] 01/11/22 13:45:00 EDT, [facility] Start Date: 01/11/22 Status: Ordered gabapentin 300 mg oral capsule 300 mg, 1, capsule, By Mouth, 3 times a day, for 90 days, # 270 capsule, Refills 2, Tot. Refills 2,Hard Stop 02/15/23 7:44:00 EDT, 05/21/22 7:44:00 EDT, Route to Pharmacy Electronically, [facility], Partial fill upon patient re... Start Date: 05/21/22 Stop Date: 02/15/23 Status: Ordered gabapentin 300 mg oral capsule 300 mg, 1, capsule, By Mouth, 3 times a day, # 270 capsule, Refills 2, Tot. Refills 2, Maintenance,02/15/23 7:44:00 EDT, Route to Pharmacy Electronically, [facility], Partial fill upon patient request if the prescription is for... Start Date: 02/15/23 Stop Date: 11/12/23 Status: Ordered Juzo Compression Hose Juzo Compression Hose, See Instructions, # 2 each, Refills 2, Tot. Refills 2, Maintenance, 20-30mmghg FF Petite (short),Hivtd-qsh-sgez, soft knee, black silicone Stock code [id number] Part #97617, Size III. [facility] [id number], 12/07/21 11:32:00 EDT,... Start Date: 12/07/21 Status: Ordered levothyroxine 0.088 mg oral tablet 1 tablet = 88 mcg, By Mouth, Daily, # 90 tablet, 1 Refills, Maintenance, 09/08/22 14:26:00 EST, Tablet, [facility], [...] Replace Required Details, Route to Pharmacy Electronically, [facility], 155, cm, 07/12/22 14:10:00 EST, Height, 93.4, k... Start Date: 09/24/22 Status: Ordered Mapap 500 mg oral capsule See Instructions, TAKE 2 CAPSULES BY MOUTH 4 TIMES A DAY NEEDED FOR PAIN, # 480 capsule, 3 Refills, Maintenance, 06/04/22 16:03:00 EDT, [id number], 155, cm, 05/25/22 13:44:00 EDT, Height, 93.4, kg, 11/01/21 16:52:00 EDT, Dry Weight Start Date: 06/04/22 Status: Ordered Power [place] Lift with [place] split-leg sling Power Virginia Lift with [place] split-leg sling, See Instructions, # 1 each, [...] EDT, 07/12/22 17:46:00 EST, Tablet, [facility]/pharmacy #[id number], Partial fill upon pa... Start Date: 07/12/22 Stop Date: 11/01/22 Status: Ordered Provigil 200 mg oral tablet 1 tablet = 200 mg, By Mouth, 2 times a day, takes in am and lunchtime brand name only - dispense aswritten, # 56 tablet, 5 Refills, Maintenance, 10/05/22 17:39:00 EST, Tablet, [facility]/pharmacy [...] 3 Refills, Maintenance, 02/01/22 12:42:00EDT, Tablet, [facility], Partial fill upon patient [...] Team Personnel Name: Juliann Rich RN Position: [facility] RN Member Role: Primary Care Nurse Name: Elas Allen NP Position: Reference Physician Member Role: Primary Care Nurse Address: Address: [address] [place] [address] [address] [place] [address]- Name: Emma Mendoza RN Position: [facility] RN Member Role: Primary Care Nurse Name: Juan Manuel LIM, Kristen Acosta Position: S Primary Care Physician Member Role: PCP Address: Address: [address] [place] [id number] Name: Jade Medina Position: [facility] RN Member Role: Primary Care Nurse Name: Komal Goodrich Position: S Outreach Member Role: Lifetime Consulting Physician Name: Godfrey Cano Position: [facility] RN Member Role: Primary Care Nurse Name: Anette Miranda RN Position: [facility] Onco RN Member Role: Primary Care Nurse Care Team Related Persons Name: DIOMEDES WARNER Address: home [address] [place] [address] Name: MOO HOWELL Address: [address] [place] [address] Name: MARLON GENTILE
--- OUTSIDE RECORDS SUMMARY | 2024-03-17 13:37 | XMS_ITS | Continuity of Care Document ---
Author Organization [facility] Address [address] [place] [address]- Care Team Providers Care Dispatcher Ship Pilot Name Role Phone Juan Manuel LIM, rKisten Acosta Primary Care Physic juan alberto [facility] Date[facility]s): 09/12/22 - 10/12/22 [facility] [address] [place] [id number] Allergies, Adverse Reactions, Alerts Substance Reaction Severity Status morphine hives, SOB Active penicillins hive Active Wellbutrin rash Active Reglan Active cannabis (Schedule I substance) itching/vomiting Active Other Environmental Allergy mercury-fillings Active contrast media (iodine-based) itching throughout body Active Immunizations Given and Recorded Vaccine Date Status Refusal Reason pneumococcal 20-valent conjugate vaccine 05/30/22 Recorded [id number] 12y+ bivalent booster vax 05/12/22 Recorded influenza [...] vaccine, inactivated 04/26/09 Arnoldo rded SARS-CoV-2 mRNA (oocrmzz-vsbv-kwpcg) vax 03/10/22 Recorded SARS-CoV-2 mRNA (ryzlvur-bdlk-lrllq) vax 10/04/21 Recorded SARS-CoV-2 (COVID-19) mRNA BNT-162b2 [...] 12:44:00 EDT, Route to Pharmacy Electronically, [facility], Partial fill upon patient request if the prescription is for a... Start Date: 12/09/22 Stop Date: 09/05/23 Status: Ordered baclofen 20 mg oral tablet 20 mg, 1, tablet, By Mouth, 3 times a day, for 90 days, # 270 tablet, Refills 2, Tot. Refills 2, Hard Stop 12/09/22 12:44:00 EDT, 03/14/22 12:44:00 EDT, Route to Pharmacy Electronically, [facility]/pharmacy#[id number], Partial fill upon patient request if [...] EDT, [facility] Start Date: 01/11/22 Status: Ordered gabapentin [...] Tot. Refills 2, Maintenance, 20-30mmghg FF Petite (short),Trcuq-bzu-dslx, soft knee, black silicone Stock code [id number] Part #78857, Size III. [facility] [id number], 12/07/21 11:32:00 EDT,... Start Date: 12/07/21 Status: Ordered levothyroxine 0.088 mg oral tablet 1 tablet = 88 mcg, By Mouth, Daily, # 90 tablet, 1 Refills, Maintenance, 09/08/22 14:26:00 EST, Tablet, [facility], Partial fill upon patient [...] Replace Required Details, Route to Pharmacy Electronically, [facility], 155, cm, 07/12/22 14:10:00 EST, Height, 93.4, k... Start Date: 09/24/22 Status: Ordered Mapap 500 mg oral capsule See Instructions, TAKE 2 CAPSULES BY MOUTH 4 TIMES A DAY NEEDED FOR PAIN, # 480 capsule, 3 Refills, Maintenance, 06/04/22 16:03:00 EDT, [id number], 155, cm, 05/25/22 13:44:00 EDT, Height, 93.4, kg, 11/01/21 16:52:00 EDT, Dry Weight Start Date: 06/04/22 Status: Ordered Power Virginia Lift with [place] split-leg sling Power Virginia Lift with [place] split-leg sling, See Instructions, # 1 each, [...] 18:25:00 EDT, 07/05/22 18:25:00 EST, Tablet, [facility], Parti... Start Date: 07/05/22 Stop Date: [...] tablet, 3 Refills, Maintenance, 02/01/22 12:42:00EDT, [facility], Partial fill upon patient [...] Member Role: Primary Care Nurse Address: Address: [address] [place] [address] [address] [facility] [place] [address]- [place] Name: Emma Mendoza RN Position: [facility] RN Member Role: Primary Care Nurse Name: Juan Manuel LIM, Kristen Acosta Position: [facility] Primary Care Physician Member Role: PCP Address: Address: [address] [place] [address]- Name: Jade Medina Position: [facility] RN Member Role: Primary Care Nurse Name: Komal Goodrich Position: [facility] Outreach Member Role: Lifetime Consulting Physician Name: Godfrey Cano Position: [facility] RN Member Role: Primary Care Nurse Name: Anette Miranda RN Position: [facility] Onco RN Member Role: Primary Care Nurse Care Team Related Persons Name: DIOMEDES WARNER Address: home [address] [place] [address] Name: MOO HOWELL Address: [address] [place] [address] Name: MARLON GENTILE
--- OUTSIDE RECORDS SUMMARY | 2024-03-17 13:37 | XMS_ITS | Continuity of Care Document ---
Author Organization [facility] Address [address] [place] [address]- Care Team Providers Care Field Contractor Name Role Phone Jason CENTENO, Efrem Pickering Primary Care Physician [facility] [facility] [place] 05/31/20 - 06/07/20 [facility] [address] [place] [address]- [facility] Attending Physician: Marcial Rodgers MD Allergies, Adverse Reactions, Alerts Substance Reaction [...]
--- OUTSIDE RECORDS SUMMARY | 2024-03-17 13:37 | XMS_ITS | Continuity of Care Document ---
Author Organization [facility] Address [address] [place] [address]- Care Team Providers Care Centrifugal Extractor Operator Name Role Phone Juan Manuel LIM, Kristen Acosta Primary Care Physic juan alberto [facility] Date(s): 08/24/22 - 09/23/22 [facility] [address] [place] [address]- Attending Physician: AdmAlissa fisher Admitting Physician: AdmtrAlissa Referring Physician: Admtr, Neil8 Allergies, Adverse Reactions, Alerts Substance Reaction Severity Status morphine hives, SOB Active penicillins hive Active Wellbutrin rash Active Reglan Active cannabis (Schedule I substance) itching/vomiting Active Other Environmental Allergy mercury-fillings Active contrast media (iodine-based) itching throughout body Active Immunizations Given and Recorded Vaccine Date Status Refusal Reason pneumococcal 20-valent conjugate vaccine 05/30/22 Recorded [id number] 12y+ bivalent booster vax 05/12/22 Recorded influenza [...] vaccine, inactivated 04/26/09 Arnoldo rded SARS-CoV-2 mRNA (oawritc-ulrw-vllwj) vax 03/10/22 Recorded SARS-CoV-2 mRNA (bsglzhz-utah-emiry) vax 10/04/21 Recorded SARS-CoV-2 (COVID-19) mRNA BNT-162b2 [...] tablet, 0 Refills, Maintenance, 09/13/22 9:11:00EST, Tablet, [facility]/pharmacy #[id number], Partial fill upon patient request if the prescription is for a schedule II opioid drug., 155, cm, 07/12/22 14:10:00 ES... Start Date: 09/13/22 Status: Ordered baclofen 20 mg oral tablet 20 mg, 1, tablet, By Mouth, 3 times a day, # 270 tablet, Refills 2, Tot. Refills 2, Maintenance, 12/09/22 12:44:00 EDT, Route to Pharmacy Electronically, [facility], Partial fill upon patient request if the prescription is for a... Start Date: 12/09/22 Stop Date: 09/05/23 Status: Ordered baclofen 20 mg oral tablet 20 mg, 1, tablet, By Mouth, 3 times a day, for 90 days, # 270 tablet, Refills 2, Tot. Refills 2, Hard Stop 12/09/22 12:44:00 EDT, 03/14/22 12:44:00 EDT, Route to Pharmacy Electronically, [facility]/pharmacy#[id number], Partial fill upon patient request if [...] 01/06/23 14:02:00 EDT, 01/11/22 14:02:00 EDT, Tablet, [facility], Partial fill upon patient request if the prescription is for a schedul... Start Date: 01/11/22 Stop Date: 01/06/23 Status: Ordered Centrum Silver Ultra Women's oral tablet 1 tablet, By Mouth, Daily, 0 Refills, Maintenance, 07/09/18 8:43:55 EST Start Date: 07/09/18 Status: Ordered [facility] SENIOR PROBIOTIC CAPSULE TAKE 2 CAPSULES BY MOUTH TWICE A DAY Start Date: 11/01/21 Status: Ordered [facility] Senior Probiotic Capsule [facility] Senior Probiotic Capsule, See Instructions, # [...] 3 Refills, Maintenance, 04/02/22 21:13:00 EDT, Gel, [facility]... Start Date: 04/02/22 Status: [...] Refills, Soft Stop, 05/26/22 8:59:00 EDT, Tablet, [facility]/pharmacy #[id number], Partial fill [...] 01/11/22 13:45:00 EDT, [facility] Start Date: 01/11/22 Status: Ordered gabapentin 300 mg oral capsule 300 mg, 1, capsule, By Mouth, 3 times a day, for 90 days, # 270 capsule, Refills 2, Tot. Refills 2,Hard Stop 02/15/23 7:44:00 EDT, 05/21/22 7:44:00 EDT, Route to Pharmacy Electronically, [facility], Partial fill upon patient re... Start Date: 05/21/22 Stop Date: 02/15/23 Status: Ordered gabapentin 300 mg oral capsule 300 mg, 1, capsule, By Mouth, 3 times a day, # 270 capsule, Refills 2, Tot. Refills 2, Maintenance,02/15/23 7:44:00 EDT, Route to Pharmacy Electronically, [facility], Partial fill upon patient request if the prescription is for... Start Date: 02/15/23 Stop Date: 11/12/23 Status: Ordered Juzo Compression Hose Juzo Compression Hose, See Instructions, # 2 each, Refills 2, Tot. Refills 2, Maintenance, 20-30mmghg FF Petite (short),Mpadc-ucr-uryp, soft knee, black silicone Stock code [id number] Part #93214, Size III. [facility] [id number], 12/07/21 11:32:00 EDT,... Start Date: 12/07/21 Status: Ordered levothyroxine 0.088 mg oral tablet 1 tablet = 88 mcg, By Mouth, Daily, # 90 tablet, 1 Refills, Maintenance, 09/08/22 14:26:00 EST, Tablet, [facility], Partial fill upon patient request if the prescription is fora schedule II opioid drug., 155, cm, 07/12/22 14:10... Start Date: 09/08/22 Status: Ordered lisinopril 5 mg oral tablet 5 mg, 1, tablet, By Mouth, Daily, # 90 tablet, Refills 3, Tot. Refills 3, Maintenance, 02/24/22 15:53:00 EDT, [id number] fill upon patient request if the prescription is for a schedule II opioid drug.... Start Date: 02/24/22 Status: Ordered Mapap 500 mg oral capsule See Instructions, TAKE 2 CAPSULES BY MOUTH 4 TIMES A DAY NEEDED FOR PAIN, # 480 capsule, 3 Refills, Maintenance, 06/04/22 16:03:00 EDT, [facility] [id number], 155, cm, 05/25/22 13:44:00 EDT, Height, 93.4, kg, 11/01/21 16:52:00 EDT, Dry Weight Start Date: 06/04/22 Status: Ordered Potassium Chloride (Eqv-K-Tab) 20 mEq oral tablet, extended release 1 tablet = 20 mEq, By Mouth, Daily, for low potassium, # 10 tablet, 0 Refills, Maintenance, 03/02/22 19:14:00 EDT, [facility]/pharmacy #[id number], Partial fill upon patient request if the prescription is for a schedule II opioid drug., 155, cm, 02/23/22 8:04:00 E... Start Date: 03/02/22 Stop Date: 03/12/22 Status: Ordered Power Virginia Lift with [place] split-leg sling Power Virginia Lift with [place] split-leg sling, See Instructions, # 1 each, [...] 18 tablet, 0Refills, Maintenance, 08/24/22 17:06:00 EST, [id number], Partial fill upon patient request [...] 90 capsule, 2 Refills, 02/28/22 8:13:00 EDT, [facility]/pharmacy #[id number], 155,cm, 02/23/22 8:04:00 EDT, Height, [...] Lab Results Authored Date: * Event Display: CT Scan Abdomen, Non- BH Authored Date: Cardiology Consult note * Event Display: Consult Note Cardiology Authored Date: Patient Care team information Care Team Personnel Name: Juliann Rich RN Position: [facility] RN Member Role: Primary Care Nurse Name: Elsa Allen NP Position: Reference Physician Member Role: Primary Care Nurse Address: Address: [address] [place] [address] [address] [place] [address]- Name: Emma Mendoza RN Position: [facility] RN Member Role: Primary Care Nurse Name: Juan Manuel LIM, Kristen Acosta Position: [facility] Primary Care Physician Member Role: PCP Address: Address: [address] [place] [address]- Name: Jade Medina Position: S RN Member Role: Primary Care Nurse Name: Komal Goodrich Position: S Outreach Member Role: Lifetime Consulting Physician Name: Godfrey Cano Position: S RN Member Role: Primary Care Nurse Name: Anette Miranda RN Position: [facility] Onco RN Member Role: Primary Care Nurse Care Team Related Persons Name: DIOMEDES WARNER Address: [address] [place] [address] Name: MOO OHWELL Address: home [address] [place] [address] Name: MARLON GENTILE
--- OUTSIDE RECORDS SUMMARY | 2024-03-17 13:37 | XMS_ITS | Continuity of Care Document ---
Author Organization [facility] ter Address [address] [place] [address]- Care Team Providers Care Steel Rule Die Maker Name Role Phone Jason CENTENO, Efrem Pickering Primary Care Physician [phone] Encounter [facility] Date(s): 11/22/19 - 12/22/[address] [address]- [facility] Attending Physician: Richard Almanza MD Admitting Physician: Richard Almanza MD Referring Physician: Not on Staff, Referring [...]
--- OUTSIDE RECORDS SUMMARY | 2024-03-17 13:37 | XMS_ITS | Continuity of Care Document ---
Author Organization [facility] Address [address] [place] [address]- Care Team Providers Care Director Of Collections Name Role Phone Juan Manuel LIM, Kristen Acosta Primary Care Physic juan alberto Encounter [facility] [place] Date(s): 12/12/22 - 01/11/23 [facility] [address], [place] [address] Attending Physician: Admtr, [id number] Admitting Physician: Admtr, [...] Reason pneumococcal 20-valent conjugate vaccine 05/30/22 Recorded [id number] 12y+ bivalent booster vax 05/12/22 Recorded influenza [...] vaccine, inactivated 04/26/09 Arnoldo rded SARS-CoV-2 mRNA (xzxdzfy-xyvt-olesu) vax 03/10/22 Recorded SARS-CoV-2 mRNA (zozarzi-pffs-ryjrl) vax 10/04/21 Recorded SARS-CoV-2 (COVID-19) mRNA BNT-162b2 [...] 12/09/22 12:44:00 EDT, Route to Pharmacy Electronically, [facility], Partial fill upon patient [...] 01/02/22 9:03:00 EDT, Route to Pharmacy Electronically, [facility], Partial fill upon patient [...] 01/11/22 13:45:00 EDT, Route to Pharmacy Electronically, [facility] AD[facility]... Start Date: 01/11/22 Status: Ordered gabapentin 300 mg oral capsule 300 mg, 1, capsule, By Mouth, 3 times a day, for 90 days, # 270 capsule, Refills 2, Tot. Refills 2,Hard Stop 02/15/23 7:44:00 EDT, 05/21/22 7:44:00 EDT, Route to Pharmacy Electronically, [facility], Partial fill upon patient re... Start Date: 05/21/22 Stop Date: 02/15/23 Status: Ordered gabapentin 300 mg oral capsule 300 mg, 1, capsule, By Mouth, 3 times a day, # 270 capsule, Refills 2, Tot. Refills 2, Maintenance,02/15/23 7:44:00 EDT, Route to Pharmacy Electronically, [facility], Partial fill upon patient request if the prescription is for... Start Date: 02/15/23 Stop Date: 11/12/23 Status: Ordered Juzo Compression Hose Juzo Compression Hose, See Instructions, # 2 each, Refills 2, Tot. Refills 2, Maintenance, 20-30mmghg FF Petite (short),Wedqm-xcq-fshi, soft knee, black silicone Stock code [id number] Part #[id number], Size III. [facility] [id number], 12/07/21 11:32:00 EDT,... Start Date: 12/07/21 Status: Ordered levothyroxine 0.088 mg oral tablet 1 tablet = 88 mcg, By Mouth, Daily, # 90 tablet, 1 Refills, Maintenance, 09/08/22 14:26:00 EST, Tablet, [facility], Partial fill upon patient request if the prescription is fora schedule II opioid drug., 155, cm, 07/12/22 14:10... Start Date: 09/08/22 Status: Ordered lisinopril 10 mg oral tablet 10 mg, 1, tablet, By Mouth, Daily, # 90 tablet, Refills 0, Tot. Refills 0, Maintenance, 01/01/23 8:04:00 EDT, Route to Pharmacy Electronically, [id number], Partial fill upon patient request if the prescription is for a schedule II opioid drug.... Start Date: 01/01/23 Status: Ordered lisinopril 5 mg oral tablet 5 mg, 1, tablet, By Mouth, Daily, # 90 tablet, Refills 3, Tot. Refills 3, Maintenance, 02/24/22 15:53:00 EDT, Route to Pharmacy Electronically, [id number], Partial fill upon patient request if the prescription is for a schedule II opioid drug.... Start Date: 02/24/22 Status: Ordered Mapap 500 mg oral capsule See Instructions, TAKE 2 CAPSULES BY MOUTH 4 TIMES A DAY NEEDED FOR PAIN, # 480 capsule, 3 Refills, Maintenance, 06/04/22 16:03:00 EDT, [id number], 155, cm, 05/25/22 13:44:00 EDT, Height, 93.4, kg, 11/01/21 16:52:00 EDT, Dry Weight Start Date: 06/04/22 Status: Ordered Power Virginia Lift with Cotton split-leg sling Power Virginia Lift with Cotton split-leg sling, See Instructions, # 1 each, [...] 90 capsule, 1 Refills, 12/11/22 15:16:00 EDT, [facility] #[id number], 155, cm, 10/10/22 13:40:00 EST, Height, 93.4, kg, 11/01/21 16:52:00 EDT, Dry Weight Start Date: 12/11/22 Status: Ordered Xarelto 20 mg oral tablet 1 tablet = 20 mg, By Mouth, Daily at supper, # 90 tablet, 3 Refills, Maintenance, 02/01/22 12:42:00EDT, Tablet, [facility], Partial fill upon patient [...] 100 in lifetime) entered on: 10/31/[address] Skeletal system Multisection for bone density * Event Display: Bone Density Authored Date: Patient Care team information Care Team Personnel Name: Juliann Rich RN Position: [facility] RN Member Role: Primary Care Nurse Name: Elsa Allen NP Position: Reference Physician Member Role: Primary Care Nurse Address: Address: [address] [place] [address] [address] [place] [address]- Name: Emma Mendoza RN Position: [facility] Nurse Member Role: Primary Care Nurse Name: Juan Manuel LIM, Kristen Acosta Position: [facility] Physician - Primary Care Member Role: PCP Address: Address: [address] [place] [address]- Name: Jade Medina Position: [facility] RN Member Role: Primary Care Nurse Name: Komal Goodrich Position: [facility] Outreach Member Role: Lifetime Consulting Physician Name: Godfrey Cano Position: [facility] RN Member Role: Primary Care Nurse Name: Anette Miranda RN Position: [facility] Onco RN Member Role: Primary Care Nurse Care Team Related Persons Name: DIOMEDES WARNER Address: home [address] [place] [address] Name: DANTE MOO Address: home [address] [place] [address] Name: MARLON GENTILE
--- OUTSIDE RECORDS SUMMARY | 2024-03-17 13:37 | XMS_ITS | Continuity of Care Document ---
Author Organization [facility] Address [address] [place] [address]- Care Team Providers Care Crown Buffer Name Role Phone Juan Manuel LIM, Kristen Acosta Primary Care Physic juan alberto Encounter [facility] Date(s): 05/16/23 - 06/15/23 [facility] [address] [place] [address]- Allergies, Adverse Reactions, Alerts Substance Reaction Severity Status morphine hives, SOB Active penicillins hive Active Wellbutrin rash Active Reglan Active cannabis (Schedule I substance) itching/vomiting Active Other Environmental Allergy mercury-fillings Active contrast media (iodine-based) itching throughout body Active Immunizations Given and Recorded Vaccine Date Status Refusal Reason pneumococcal 20-valent conjugate vaccine 05/30/22 Recorded [id number] 12y+ bivalent booster vax 05/12/22 Recorded influenza [...] vaccine, inactivated 04/26/09 Arnoldo rded SARS-CoV-2 mRNA (vwqhwfz-djkv-kftil) vax 03/10/22 Recorded SARS-CoV-2 mRNA (tiojtfa-idkw-opvev) vax 10/04/21 Recorded SARS-CoV-2 (COVID-19) mRNA BNT-162b2 [...] Refills, Maintenance, 12/11/22 17:34:00 EDT, Tablet, [facility] #[id number], Partial [...] 2 Refills, Maintenance, 01/06/23 14:02:00EDT, Tablet, [facility] #[id number], Partial fill [...] DAY Start Date: 11/01/21 Status: Ordered [facility] Senior Probiotic Capsule [facility] Senior Probiotic Capsule, See Instructions, # [...] mL, 5 Refills, 03/02/22 8:08:00 EDT, [facility] #[id number], 155, cm, 02/23/22 8:04:00 EDT, [...] Soft Stop, 03/27/23 18:43:00 EDT, Tablet, [facility] #[id number], Partial fill upon patient request if the prescription is for a schedule II opioid... Start Date: 03/27/23 Status: Ordered fluconazole 150 mg oral tablet 1 tablet = 150 mg, By Mouth, Every week, # 4 tablet, 1 Refills, Soft Stop, 05/26/22 8:59:00 EDT, Tablet, [facility] #[id number], Partial [...] 2, Maintenance, Juzo Compression Hose 2 pairs mcvok-ffe-rvsj Soft Knee FF Petite 20-30 mmHg Silicone, Black Stock Code [id number] I I I Part #[id number] Size I I I SKU... Start Date: 03/12/23 Status: Ordered levothyroxine 0.088 mg oral tablet 1 tablet = 88 mcg, By Mouth, Daily, # 90 tablet, 3 Refills, Maintenance, 03/15/23 17:17:00 EDT, Tablet, [facility], Partial fill upon patient request if the prescription is fora schedule II opioid drug., 155, cm, 03/15/23 17:11... Start Date: 03/15/23 Status: Ordered lisinopril 5 mg oral tablet 1, tablet, By Mouth, Daily, # 90 tablet, Refills 3, Tot. Refills 3, Maintenance, 03/15/23 17:16:00 EDT, Route to Pharmacy Electronically, [facility], 155, cm, 03/15/23 17:11:00EDT, Height, 93.4, kg, 11/01/21 16:52:00 EDT, Dry W... Start Date: 03/15/23 Status: Ordered Mapap 500 mg oral capsule See Instructions, TAKE 2 CAPSULES BY MOUTH 4 TIMES A DAY NEEDED FOR PAIN, # 480 capsule, 0 Refills, Maintenance, 03/12/23 9:16:00 EDT, [facility] #[id number], 155, cm, 10/10/22 13:40:00 EST, Height, 93.4, kg, 11/01/21 16:52:00 EDT, Dry Weight Start Date: 03/12/23 Status: Ordered Power Virginia Lift with [place] split-leg sling Power Virginia Lift with [place] split-leg sling, See Instructions, # 1 each, [...] Refills, Maintenance, 12/11/22 17:34:00 EDT, Tablet, [facility]/pharm[facility] #[id number], Partial [...] Name: Juliann Rich RN Position: [facility] RN Member Role: Primary Care Nurse Name: Elsa Allen NP Position: Reference Physician Member Role: Primary Care Nurse Address: Address: [address] [place] [address] [address] [place] [address]- Name: Emma Mendoza RN Position: [facility] AMB Nurse Member Role: Primary Care Nurse Name: Juan Manuel LIM, Kristen Acosta Position: [facility] Physician - Primary Care Member Role: PCP Address: Address: [address] [place] [address]- Name: Komal Goodrich Position: [facility] Outreach Member Role: Lifetime Consulting Physician Name: Godfrey Cano Position: [facility] RN Member Role: Primary Care Nurse Name: Anette Miranda RN Position: [facility] Onco RN Member Role: Primary Care Nurse Care Team Related Persons Name: DIOMEDES WARNER Address: home [address] [place] [address] Name: MOO HOWELL Address: [address] [place] [address] Name: MARLON GENTILE
--- OUTSIDE RECORDS SUMMARY | 2024-03-17 13:37 | XMS_ITS | Continuity of Care Document ---
Author Organization [facility] Address [address] [place] [address]- Care Team Providers Care Zinc Plate Cutter Name Role Phone Juan Manuel LIM, Kristen Acosta Primary Care Physic juan alberto Encounter [facility] [place] Date(s): 04/24/22 - 05/24/22 [facility] [address] [place] [address] Allergies, Adverse [...] vaccine, inactivated 04/26/09 Arnoldo rded SARS-CoV-2 mRNA (xwhghug-ndgl-ctvkc) vax 03/10/22 Recorded SARS-CoV-2 mRNA (xwfwukm-aach-tmcws) vax 10/04/21 Recorded SARS-CoV-2 (COVID-19) mRNA BNT-162b2 [...] tablet, 2 Refills, Maintenance, 02/28/22 8:12:00EDT, Tablet, [facility]/pharmacy #[id number], Partial fill [...] 03/14/22 12:44:00 EDT, [id number] fill upon patient request if [...] 01/06/23 14:02:00 EDT, 01/11/22 14:02:00 EDT, Tablet, [facility], Partial fill upon patient [...] 3 Refills, Maintenance, 04/02/22 21:13:00 EDT, Gel, [facility]... Start Date: 04/02/22 Status: Ordered electric [...] Tot. Refills 2, Maintenance, 20-30mmghg FF Petite (short),Kgwsw-aaf-hjtm, soft knee, black silicone Stock code [id number] Part #[id number], Size III. [facility] [id number], 12/07/21 11:32:00 EDT,... Start Date: 12/07/21 Status: [...] 02/24/22 15:53:00 EDT, [id number] Partial fill upon patient request if the prescription is for a schedule II opioid drug.... Start Date: 02/24/22 Status: Ordered Potassium Chloride (Eqv-K-Tab) 20 mEq oral tablet, extended release 1 tablet = 20 mEq, By Mouth, Daily, for low potassium, # 10 tablet, 0 Refills, Maintenance, 03/02/22 19:14:00 EDT, [facility]acy #[id number], Partial fill upon patient request if the prescription is for a schedule II opioid drug., 155, cm, 02/23/22 8:04:00 E... Start Date: 03/02/22 Stop Date: 03/12/22 Status: Ordered Power Virginia Lift with [place] split-leg sling Power Virginia Lift with [place] split-leg sling, See Instructions, # 1 each, [...] 3 Refills, Maintenance, 02/28/22 8:12:00 EDT, Tablet, [facility] #[id number], Partial [...] 90 capsule, 2 Refills, 02/28/22 8:13:00 EDT, [facility]/pharmacy #[id number], 155,cm, 02/23/22 8:04:00 EDT, Height, 93.4, kg, 11/01/21 16:52:00 EDT, Dry Weight Start Date: 02/28/22 Status: Ordered Xarelto 20 mg oral tablet 1 tablet = 20 mg, By Mouth, Daily at supper, # 90 tablet, 3 Refills, Maintenance, 02/01/22 12:42:00EDT, Tablet, [facility], [facility] fill upon patient [...] Juan Manuel LIM, Kristen Acosta Address: Address: [address] [place] [id number]
--- OUTSIDE RECORDS SUMMARY | 2024-03-17 13:37 | XMS_ITS | Continuity of Care Document ---
Author Organization [facility] Address [address] [place] [address]- Care Team Providers Care Cellars Supervisor Name Role Phone Juan Manuel LIM, Kristen Acosta Primary Care Physic juan alberto Encounter [facility] Date(s): 05/16/23 - 06/15/23 [facility] [address] [place] [address]- Allergies, Adverse Reactions, Alerts Substance Reaction Severity Status morphine hives, SOB Active penicillins hive Active Wellbutrin rash Active Reglan Active cannabis (Schedule I substance) itching/vomiting Active Other Environmental Allergy mercury-fillings Active contrast media (iodine-based) itching throughout body Active Immunizations Given and Recorded Vaccine Date Status Refusal Reason pneumococcal 20-valent conjugate vaccine 05/30/22 Recorded [id number]-GiS-[id number] 12y+ bivalent booster vax 05/12/22 Recorded influenza [...] vaccine, inactivated 04/26/09 Arnoldo rded SARS-CoV-2 mRNA (zofasmv-xlbc-epoqv) vax 03/10/22 Recorded SARS-CoV-2 mRNA (mehppdd-ipsl-wkbby) vax 10/04/21 Recorded SARS-CoV-2 (COVID-19) mRNA BNT-162b2 [...] 1 Refills, Maintenance, 12/11/22 17:34:00 EDT, Tablet, [facility]acy #[id number], Partial fill upon patient request if the prescription is for a schedule II opioid drug., 155, cm, 10/10/22 13:40:00 E... Start Date: 12/11/22 Status: Ordered baclofen 20 mg oral tablet 20 mg, 1, tablet, By Mouth, 3 times a day, # 270 tablet, Refills 2, Tot. Refills 2, Maintenance, 12/09/22 12:44:00 EDT, Route to Pharmacy Electronically, [facility], Partial fill upon patient request if the prescription is for a... Start Date: 12/09/22 Stop Date: 09/05/23 Status: Ordered bifidobacterium-lactobacillus oral tablet 2 tablet, By Mouth, 2 times a day, [facility] Brand please (Senior Wellness), # 360 tablet, 3 Refills, Maintenance, 08/11/21 17:02:00 EST, Tablet, [facility] #[id number], Partial fill upon patient request if the prescription is for a schedule II opioid drug., 2... Start Date: 08/11/21 Stop Date: 08/06/22 Status: Ordered calcium carbonate 600 mg oral tablet 1 tablet = 600 mg, By Mouth, 2 times a day, # 180 tablet, 2 Refills, Maintenance, 01/06/23 14:02:00EDT, Tablet, [facility]/pharm[facility] #[id number], Partial fill upon patient request if the prescription is for a schedule II opioid drug., 155, cm, 02/23/22 8:04:00 EDT... Start Date: 01/06/23 Stop Date: 10/03/23 Status: Ordered Centrum Silver Ultra Women's oral tablet 1 tablet, By Mouth, Daily, 0 Refills, Maintenance, 07/09/18 8:43:55 EST Start Date: 07/09/18 Status: Ordered [facility] SENIOR PROBIOTIC CAPSULE TAKE 2 CAPSULES BY MOUTH TWICE A DAY Start Date: 11/01/21 Status: Ordered [facility] Senior Probiotic Capsule [facility] Senior Probiotic Capsule, See Instructions, [...] 450 mL, 5 Refills, 03/02/22 8:08:00 EDT, [facility]/pharmacy #[id number], 155, cm, 02/23/22 8:04:00 [...] Refills, Soft Stop, 03/27/23 18:43:00 EDT, Tablet, [facility]/pharmacy #[id number], Partial fill upon patient request if the prescription is for a schedule II opioid... Start Date: 03/27/23 Status: Ordered fluconazole 150 mg oral tablet 1 tablet = 150 mg, By Mouth, Every week, # 4 tablet, 1 Refills, Soft Stop, 05/26/22 8:59:00 EDT, Tablet, [facility] #[id number], Partial fill upon patient [...] 2, Maintenance, Juzo Compression Hose 2 pairs eynbr-wad-kbjo Soft Knee FF Petite 20-30 mmHg Silicone, Black Stock Code [id number] I I I Part #99929 Size I I I SKU... Start Date: [...] capsule, 0 Refills, Maintenance, 03/12/23 9:16:00 EDT, [facility]/pharmacy #[id number], 155, cm, 10/10/22 13:40:00 EST, Height, 93.4, kg, 11/01/21 16:52:00 EDT, Dry Weight Start Date: 03/12/23 Status: Ordered Power Virginia Lift with [place] split-leg sling Power Virginia Lift with [place] split-leg sling, See Instructions, # 1 each, [...] 5 Refills, Maintenance, 12/11/22 17:34:00 EDT, Tablet, [facility]/pharmacy #[id number], Partial fill upon patient [...] Role: Primary Care Nurse Address: Address: [address] [place] [address] [address] [place] [address]- Name: Emma Mendoza RN Position: [facility] Nurse Member Role: Primary Care Nurse Name: Juan Manuel LIM, Kristen Acosta Position: [facility] Physician - Primary Care Member Role: PCP Address: Address: [address] [address]- Name: Komal Goodrich Position: [facility] Outreach Member Role: Lifetime Consulting Physician Name: Godfrey Cano Position: [facility] RN Member Role: Primary Care Nurse Name: Anette Miranda RN Position: [facility] Onco RN Member Role: Primary Care Nurse Care Team Related Persons Name: DIOMEDES WARNER Address: [address] [place] [address] Name: MOO HOWELL Address: [address] [place] [address] Name: MARLON GENTILE
--- OUTSIDE RECORDS SUMMARY | 2024-03-17 13:37 | XMS_ITS | Continuity of Care Document ---
Author Organization [facility] Address [address] [facility], [address] Floor, [address] [place] [address]- Care Team Providers Care Casual Shoe Inspector Name Role Phone Juan Manuel LIM, Kristen December Karla Primary Care Physic juan alberto [place] [facility] [place]22 [facility] [address] [place], [address], [address] [place] [address] [place] Allergies, Adverse Reactions, Alerts Substance Reaction [...] vaccine, inactivated 04/26/09 Arnoldo rded SARS-CoV-2 mRNA (rgvvzpj-iluj-wcquc) vax 03/10/22 Recorded SARS-CoV-2 mRNA (gbohezq-bjhi-wsldb) vax 10/04/21 Recorded SARS-CoV-2 (COVID-19) mRNA BNT-162b2 [...] 04/19/22 17:46:00 EDT, 08/22/21 17:46:00 EST, Capsule, [facility]/pharmacy #[id number], Partial fill upon patient request if the prescription is for a schedul... Start Date: 08/22/21 Stop Date: 04/19/22 Status: Ordered ascorbic acid 1000 mg oral tablet 1 tablet = 1,000 mg, By Mouth, 2 times a day, # 90 tablet, 2 Refills, Maintenance, 02/28/22 8:12:00EDT, Tablet, [facility]/pharmacy #[id number], Partial fill upon patient request if the prescription is for a schedule II opioid drug., 155, cm, 02/23/22 8:04:00 EDT... Start Date: 02/28/22 Status: Ordered baclofen 20 mg oral tablet 20 mg, 1, tablet, By Mouth, 3 times a day, # 270 tablet, Refills 2, Tot. Refills 2, Maintenance, 12/09/22 12:44:00 EDT, Route to Pharmacy Electronically, [facility], Partial fill upon patient request if the prescription is for a... Start Date: 12/09/22 Stop Date: 09/05/23 Status: Ordered baclofen 20 mg oral tablet 20 mg, 1, tablet, By Mouth, 3 times a day, for 90 days, # 270 tablet, Refills 2, Tot. Refills 2, Hard Stop 12/09/22 12:44:00 EDT, 03/14/22 12:44:00 EDT, Route to Pharmacy Electronically, [facility]/pharmacy#[id number], Partial fill upon patient request if the pre... Start Date: 03/14/22 Stop Date: 12/09/22 Status: Ordered bifidobacterium-lactobacillus oral tablet 2 tablet, By Mouth, 2 times a day, [facility] Brand please (Senior Wellness), # 360 tablet, 3 Refills, Maintenance, 08/11/21 17:02:00 EST, Tablet, [facility]/pharmacy #[id number], Partial fill upon patient request if the prescription is for a schedule II opioid drug., 2... Start Date: 08/11/21 Stop Date: 08/06/22 Status: Ordered calcium carbonate 600 mg oral tablet 1 tablet = 600 mg, By Mouth, 2 times a day, # 180 tablet, 2 Refills, Maintenance, 01/06/23 14:02:00EDT, Tablet, [facility]/pharmacy #[id number], Partial fill upon patient request [...] 01/06/23 14:02:00 EDT, 01/11/22 14:02:00 EDT, Tablet, [facility], Partial fill upon patient request if the prescription is for a schedul... Start Date: 01/11/22 Stop Date: 01/06/23 Status: Ordered Centrum Silver Ultra Women's oral tablet 1 tablet, By Mouth, Daily, 0 Refills, Maintenance, 07/09/18 8:43:55 EST Start Date: 07/09/18 Status: Ordered [facility] SENIOR PROBIOTIC CAPSULE TAKE 2 CAPSULES BY MOUTH TWICE A DAY Start Date: 11/01/21 Status: Ordered diclofenac 1% topical gel 1 application, Topically, 4 times a day, Apply 4 gram QID prn to affected pain to dropped foot - not to exceed 16 grams/day/single joint of lower extremities, # 100 Gm, 3 Refills, Maintenance, 04/02/22 21:13:00 EDT, [facility] Start Date: 04/02/22 Status: Ordered electric [place] [...] mL, 5 Refills, 03/02/22 8:08:00 EDT, [facility]/pharmacy #[id number], 155, cm, 02/23/22 8:04:00 EDT, [...] 13:45:00 EDT, Route to Pharmacy Electronically, [facility]... Start Date: 01/11/22 Status: [...] 02/20/22 7:44:00 EDT, Route to Pharmacy Electronically, [facility]/pharmacy#[id number], Partial fill upon patient request if the pre... Start Date: 02/20/22 Stop Date: 05/21/22 Status: Ordered Juzo Compression Hose Juzo Compression Hose, See Instructions, # 2 each, Refills 2, Tot. Refills 2, Maintenance, 20-30mmghg FF Petite (short),Dpgbk-mud-xfce, soft knee, black silicone Stock code [id number] Part #[id number], Size III. [facility] [id number], 12/07/21 11:32:00 EDT,... Start Date: 12/07/21 Status: Ordered levothyroxine 0.088 mg oral tablet 1 tablet = 88 mcg, By Mouth, Daily, # 90 tablet, 3 Refills, Maintenance, 03/31/22 13:45:00 EDT, Tablet, [facility], Partial fill upon patient request if the prescription is fora schedule II opioid drug., 155, cm, 03/14/22 11:11... Start Date: 03/31/22 Status: Ordered lisinopril 5 mg oral tablet 5 mg, 1, tablet, By Mouth, Daily, # 90 tablet, Refills 3, Tot. Refills 3, Maintenance, 02/24/22 15:53:00 EDT, Route to Pharmacy Electronically, [facility]/pharmacy #[id number], Partial fill upon patient request if the prescription is for a schedule II opioid drug.... Start Date: 02/24/22 Status: Ordered Potassium Chloride (Eqv-K-Tab) 20 mEq oral tablet, extended release 1 tablet = 20 mEq, By Mouth, Daily, for low potassium, # 10 tablet, 0 Refills, Maintenance, 03/02/22 19:14:00 EDT, [facility]/pharmacy #[id number], Partial fill upon patient request if the prescription is for a schedule II opioid drug., 155, cm, 02/23/22 8:04:00 E... Start Date: 03/02/22 Stop Date: 03/12/22 Status: Ordered Power [place] Lift with [place] split-leg sling Power [place] Lift with [place] split-leg sling, See Instructions, # 1 each, [...] 3 Refills, Maintenance, 02/28/22 8:12:00 EDT, Tablet, [facility]/pharmacy #[id number], Partial fill upon patient request [...] capsule, 2 Refills, 02/28/22 8:13:00 EDT, [facility]/pharmacy #[id number], 155,cm, 02/23/22 8:04:00 EDT, Height, 93.4, kg, 11/01/21 16:52:00 EDT, Dry Weight Start Date: 02/28/22 Status: Ordered Xarelto 20 mg oral tablet 1 tablet = 20 mg, By Mouth, Daily at supper, # 90 tablet, 3 Refills, Maintenance, 02/01/22 12:42:00EDT, Tablet, [facility], Partial fill upon patient request [...] Name: Juan Manuel LIM, Kristen Acosta Address: [address] [place] [address]
--- OUTSIDE RECORDS SUMMARY | 2024-03-17 13:38 | XMS_ITS | Continuity of Care Document ---
Author Organization [facility] Address [address] [place] [address]- Care Team Providers Care Wire Puller Name Role Phone Juan Manuel LIM, Kristen Acosta Primary Care Physic juan alberto Encounter [facility] Date(s): 04/24/23 - 05/24/23 [facility] [address] [place] [address]- Allergies, Adverse Reactions, Alerts Substance Reaction Severity Status morphine hives, SOB Active penicillins hive Active Wellbutrin rash Active Reglan Active cannabis (Schedule I substance) itching/vomiting Active contrast media (iodine-based) itching throughout body Active Other Environmental Allergy mercury-fillings Active Immunizations Given and Recorded Vaccine Date Status Refusal Reason pneumococcal 20-valent conjugate vaccine 05/30/22 Recorded [id number] 12y+ bivalent booster vax 05/12/22 Recorded influenza [...] vaccine, inactivated 04/26/09 Arnoldo rded SARS-CoV-2 mRNA (vsrsbwr-asrs-fcbca) vax 03/10/22 Recorded SARS-CoV-2 mRNA (muzttjw-lwcs-dgghh) vax 10/04/21 Recorded SARS-CoV-2 (COVID-19) mRNA BNT-162b2 [...] 1 Refills, Maintenance, 12/11/22 17:34:00 EDT, Tablet, [facility]/pharmacy #[id number], Partial fill upon patient request if the prescription is for a schedule II opioid drug., 155, cm, 10/10/22 13:40:00 E... Start Date: 12/11/22 Status: Ordered baclofen 20 mg oral tablet 20 mg, 1, tablet, By Mouth, 3 times a day, # 270 tablet, Refills 2, Tot. Refills 2, Maintenance, 12/09/22 12:44:00 EDT, Route to Pharmacy Electronically, [facility], Partial fill upon patient request if the prescription is for a... Start Date: 12/09/22 Stop Date: 09/05/23 Status: Ordered bifidobacterium-lactobacillus oral tablet 2 tablet, By Mouth, 2 times a day, [facility] Brand please (Senior Wellness), # 360 tablet, 3 Refills, Maintenance, 08/11/21 17:02:00 EST, Tablet, [facility]/pharmacy #[id number], Partial fill upon patient request if the prescription is for a schedule II opioid drug., 2... Start Date: 08/11/21 Stop Date: 08/06/22 Status: Ordered calcium carbonate 600 mg oral tablet 1 tablet = 600 mg, By Mouth, 2 times a day, # 180 tablet, 2 Refills, Maintenance, 01/06/23 14:02:00EDT, Tablet, [facility]/pharmacy #[id number], Partial fill upon patient request if the prescription is for a schedule II opioid drug., 155, cm, 02/23/22 8:04:00 EDT... Start Date: 01/06/23 Stop Date: 10/03/23 Status: Ordered Centrum Silver Ultra Women's oral tablet 1 tablet, By Mouth, Daily, 0 Refills, Maintenance, 07/09/18 8:43:55 EST Start Date: 07/09/18 Status: Ordered [facility] SENIOR PROBIOTIC CAPSULE TAKE 2 CAPSULES BY MOUTH TWICE A DAY Start Date: 11/01/21 Status: Ordered [facility] Senior Probiotic Capsule [facility] Senior Probiotic Capsule, See Instructions, # 180 [...] 450 mL, 5 Refills, 03/02/22 8:08:00 EDT, [facility]/pharmacy #[id number], 155, cm, 02/23/22 8:04:00 EDT, Height, [...] Refills, Soft Stop, 03/27/23 18:43:00 EDT, Tablet, [facility]/pharmacy #[id number], Partial fill upon patient request if the prescription is for a schedule II opioid... Start Date: 03/27/23 Status: Ordered fluconazole 150 mg oral tablet 1 tablet = 150 mg, By Mouth, Every week, # 4 tablet, 1 Refills, Soft Stop, 05/26/22 8:59:00 EDT, Tablet, [facility]/pharmacy #[id number], Partial fill upon patient request if [...] 2, Maintenance, Juzo Compression Hose 2 pairs bwjrh-deh-oqrg Soft Knee FF Petite 20-30 mmHg Silicone, Black Stock Code [id number] I I I Part #[id number] Size I I I SKU... Start Date: 03/12/23 Status: Ordered levothyroxine 0.088 mg oral tablet 1 tablet = 88 mcg, By Mouth, Daily, # 90 tablet, 3 Refills, Maintenance, 03/15/23 17:17:00 EDT, Tablet, [facility], Partial [...] capsule, 0 Refills, Maintenance, 03/12/23 9:16:00 EDT, [facility]/pharmacy #[id number], 155, cm, 10/10/22 13:40:00 EST, Height, 93.4, kg, 11/01/21 16:52:00 EDT, Dry Weight Start Date: 03/12/23 Status: Ordered Miconazole 7 vaginal cream with applicator 1 application, Vaginally, Daily at bedtime, for 7 days, Acute, # 45 Gm, 0 Refills, Acute 05/25/23 14:14:00 EDT, 05/18/23 14:14:00 EDT, [facility]/pharmacy #[id number], Partial fill upon patient request if the prescription is for a schedule II opioid drug., 1 appli... Start Date: 05/18/23 Stop Date: 05/25/23 Status: Ordered Power [place] Lift with [place] split-leg sling Power [place] Lift with [place] split-leg sling, See Instructions, # 1 each, [...] 90 capsule, 1 Refills, 12/11/22 15:16:00 EDT, [facility]/pharmacy #[id number], 155, cm, 10/10/22 13:40:00 EST, Height, [...] Role: Primary Care Nurse Address: Address: [address] [place] [address] [address] [facility] [place] [address] Name: Emma Mendoza RN Position: [facility] Nurse Member Role: Primary Care Nurse Name: Juan Manuel LIM, Kristen Acosta Position: [facility] Physician - Primary Care Member Role: PCP Address: Address: [facility] [address] [place], [place] [address] Name: Komal Goodrich Position: [facility] Outreach Member Role: Lifetime Consulting Physician Name: Godfrey Cano Position: [facility] RN Member Role: Primary Care Nurse Name: Anette Miranda RN Position: [facility] Onco RN Member Role: Primary Care Nurse Care Team Related Persons Name: DIOMEDES WARNER Address: [address] [place] [address] Name: MOO HOWELL Address: home [address] [place] [address] Name: MARLON GENTILE
--- OUTSIDE RECORDS SUMMARY | 2024-03-17 13:38 | XMS_ITS | Continuity of Care Document ---
Author Organization [facility] Address [address] [place] [address]- Care Team Providers Care Cattle Dealer Name Role Phone Juan Manuel LIM, Kristen Acosta Primary Care Physic juan alberto Encounter [facility] Date(s): 06/30/21 - 07/30/21 [facility] [address] [place] [address]- Allergies, Adverse Reactions, Alerts Substance Reaction Severity [...] 1 Refills, Maintenance, 07/13/21 14:17:00EST, Tablet, [facility], Partial fill upon patient [...] with split leg sling type Fully powered adiel lift with split leg sling type, See [...] to Pharmacy Electronically, [facility], Partial fill upon patient [...] 14:09:00 EST, Tablet, [facility], Partial fill upon patient request if the prescription is fora schedule II opioid drug., 153, cm, 06/27/21 7:47:... Start Date: 07/13/21 Status: Ordered lisinopril 5 mg oral tablet 5 mg, 1, tablet, By Mouth, Daily, # 90 tablet, Refills 1, Tot. Refills 1, Maintenance, 07/13/21 14:08:00 EST, Route to Pharmacy Electronically, [facility], Partial fill upon patient request if the prescription is for a schedule... Start Date: 07/13/21 Status: Ordered Provigil 200 mg oral tablet 1 tablet = 200 mg, By Mouth, 2 times a day, takes in am and lunchtime brand name only - dispense aswritten, # 56 tablet, 1 Refills, Maintenance, 07/14/21 17:19:00 EST, Tablet, [facility], Partial fill upon patient request if t... Start Date: 07/14/21 Stop Date: 09/08/21 Status: Ordered Turmeric = 750 mg, By Mouth, 2 times a day, 0 Refills, Maintenance, 07/09/18 8:47:35 EST Start Date: 07/09/18 Status: Ordered Vitamin D3 2000 intl units oral capsule 1 capsule, By Mouth, Daily, # 90 capsule, 1 Refills, [facility] [id number], 153, cm, 04/25/21 13:34:00 EDT, Height Start [...]
--- OUTSIDE RECORDS SUMMARY | 2024-03-17 13:38 | XMS_ITS | Continuity of Care Document ---
Author Organization [facility] Address [address] [place] [address]- Care Team Providers Care General Expeditor Name Role Phone Juan Manuel LIM, Kristen Acosta Primary Care Physic juan alberto Encounter [facility] Date(s): 05/04/23 - 06/03/23 [facility] [address] [place] [address]- Allergies, Adverse Reactions, Alerts Substance Reaction Severity Status morphine hives, SOB Active penicillins hive Active Wellbutrin rash Active Reglan Active cannabis (Schedule I substance) itching/vomiting Active Other Environmental Allergy mercury-fillings Active contrast media (iodine-based) itching throughout body Active Immunizations Given and Recorded Vaccine Date Status Refusal Reason pneumococcal 20-valent conjugate vaccine 05/30/22 Recorded [id number] 12y+ bivalent booster vax 05/12/22 Recorded influenza [...] vaccine, inactivated 04/26/09 Arnoldo rded SARS-CoV-2 mRNA (sczmhib-puiy-cbrkn) vax 03/10/22 Recorded SARS-CoV-2 mRNA (rfhnbhz-boid-mngxv) vax 10/04/21 Recorded SARS-CoV-2 (COVID-19) mRNA BNT-162b2 [...] Refills, Maintenance, 12/11/22 17:34:00 EDT, Tablet, [facility]/pharmacy #[id number], Partial fill upon patient request if the prescription is for a schedule II opioid drug., 155, cm, 10/10/22 13:40:00 E... Start Date: 12/11/22 Status: Ordered baclofen 20 mg oral tablet 20 mg, 1, tablet, By Mouth, 3 times a day, # 270 tablet, Refills 2, Tot. Refills 2, Maintenance, 12/09/22 12:44:00 EDT, Route to Pharmacy Electronically, [facility], Partial fill upon patient request if the prescription is for a... Start Date: 12/09/22 Stop Date: 09/05/23 Status: Ordered bifidobacterium-lactobacillus oral tablet 2 tablet, By Mouth, 2 times a day, [facility] Brand please (Senior Wellness), # 360 tablet, 3 Refills, Maintenance, 08/11/21 17:02:00 EST, Tablet, [facility]/pharmacy #[id number], Partial fill upon patient request if the prescription is for a schedule II opioid drug., 2... Start Date: 08/11/21 Stop Date: 08/06/22 Status: Ordered calcium carbonate 600 mg oral tablet 1 tablet = 600 mg, By Mouth, 2 times a day, # 180 tablet, 2 Refills, Maintenance, 01/06/23 14:02:00EDT, Tablet, [facility]/pharmacy #[id number], Partial fill upon patient request if the prescription is for a schedule II opioid drug., 155, cm, 02/23/22 8:04:00 EDT... Start Date: 01/06/23 Stop Date: 10/03/23 Status: Ordered Centrum Silver Ultra Women's oral tablet 1 tablet, By Mouth, Daily, 0 Refills, Maintenance, 07/09/18 8:43:55 EST Start Date: 07/09/18 Status: Ordered [facility] SENIOR PROBIOTIC CAPSULE TAKE 2 CAPSULES BY MOUTH TWICE A DAY Start Date: 11/01/21 Status: Ordered [facility] Senior Probiotic Capsule [facility] Senior Probiotic Capsule, See Instructions, # 180 [...] mL, 5 Refills, 03/02/22 8:08:00 EDT, [facility]/pharmacy #[id number], 155, cm, 02/23/22 8:04:00 EDT, Height, [...] Soft Stop, 03/27/23 18:43:00 EDT, Tablet, [facility]/pharmacy #[id number], Partial fill upon patient request if the prescription is for a schedule II opioid... Start Date: 03/27/23 Status: Ordered fluconazole 150 mg oral tablet 1 tablet = 150 mg, By Mouth, Every week, # 4 tablet, 1 Refills, Soft Stop, 05/26/22 8:59:00 EDT, Tablet, [facility]/pharmacy #[id number], Partial fill upon patient request if [...] 2, Maintenance, Juzo Compression Hose 2 pairs rsgdy-ldz-idxm Soft Knee FF Petite 20-30 mmHg Silicone, Black Stock Code [id number] I I I Part #[id number] Size I I I SKU... Start Date: [...] 0 Refills, Maintenance, 03/12/23 9:16:00 EDT, [facility]/pharmacy #[id number], 155, cm, 10/10/22 13:40:00 EST, Height, 93.4, kg, 11/01/21 16:52:00 EDT, Dry Weight Start Date: 03/12/23 Status: Ordered Power [place] Lift with [place] split-leg sling Power [place] Lift with [place] split-leg sling, See Instructions, # 1 each, [...] Refills, Maintenance, 12/11/22 17:34:00 EDT, Tablet, [facility]/pharmacy #[id number], Partial fill upon patient request if [...] Team Personnel Name: Juliann Rich RN Position: [facility] RN Member Role: Primary Care Nurse Name: Elsa Allen NP Position: Reference Physician Member Role: Primary Care Nurse Address: Address: [address] [place] [address] [address] [place] [address]- Name: Emma Mendoza RN Position: [facility] AMB Nurse Member Role: Primary Care Nurse Name: Juan Manuel LIM, Kristen Acosta Position: [facility] Physician - Primary Care Member Role: PCP Address: Address: [address] [place] [id number]- Name: Komal Goodrich Position: [facility] Outreach Member Role: Lifetime Consulting Physician Name: Godfrey Cano Position: [facility] RN Member Role: Primary Care Nurse Name: Anette Miranda RN Position: [facility] Onco RN Member Role: Primary Care Nurse Care Team Related Persons Name: DIOMEDES WARNER Address: [address] [place] [address] Name: MOO HOWELL Address: [address] [place] [address] Name: MARLON GENTILE
--- OUTSIDE RECORDS SUMMARY | 2024-03-17 13:38 | XMS_ITS | Continuity of Care Document ---
Author Organization [facility] Address [address] [place] [address]- Care Team Providers Care Restaurant Greeter Name Role Phone Juan Manuel LIM, Kristen Acosta Primary Care Physic juan alberto [facility]): [facility] - [facility]/23 [facility] [address] [place] [address]- Attending Physician: AdmAilssa fisher Admitting Physician: AdmtrAlissa Referring Physician: Admtr, Ar8 Allergies, Adverse Reactions, Alerts Substance Reaction Severity Status morphine hives, SOB Active Wellbutrin rash Active Reglan Active contrast media (iodine-based) itching throughout body Active penicillins hive Active cannabis (Schedule I substance) itching/vomiting Active Other Environmental Allergy mercury-fillings Active Immunizations Given and Recorded Vaccine Date Status Refusal Reason pneumococcal 20-valent conjugate vaccine 05/30/22 Recorded [id number] 12y+ bivalent booster vax 05/12/22 Recorded influenza [...] vaccine, inactivated 04/26/09 Arnoldo rded SARS-CoV-2 mRNA (hbzqtaq-hlhy-kfdfg) vax 03/10/22 Recorded SARS-CoV-2 mRNA (ykywgaw-hqbv-povdo) vax 10/04/21 Recorded SARS-CoV-2 (COVID-19) mRNA BNT-162b2 [...] Refills, Maintenance, 12/11/22 17:34:00 EDT, Tablet, [facility]/pharmacy #[id number], Partial fill upon patient request if the prescription is for a schedule II opioid drug., 155, cm, 10/10/22 13:40:00 E... Start Date: 12/11/22 Status: Ordered baclofen 20 mg oral tablet 20 mg, 1, tablet, By Mouth, 3 times a day, # 270 tablet, Refills 2, Tot. Refills 2, Maintenance, 12/09/22 12:44:00 EDT, Route to Pharmacy Electronically, [facility], Partial fill upon patient request if the prescription is for a... Start Date: 12/09/22 Stop Date: 09/05/23 Status: Ordered bifidobacterium-lactobacillus oral tablet 2 tablet, By Mouth, 2 times a day, [facility] Brand please (Senior Wellness), # 360 tablet, 3 Refills, Maintenance, 08/11/21 17:02:00 EST, Tablet, [facility]/pharmacy #[id number], Partial fill upon patient request if the prescription is for a schedule II opioid drug., 2... Start Date: 08/11/21 Stop Date: 08/06/22 Status: Ordered calcium carbonate 600 mg oral tablet 1 tablet = 600 mg, By Mouth, 2 times a day, # 180 tablet, 2 Refills, Maintenance, 01/06/23 14:02:00EDT, Tablet, [facility]/pharmacy #[id number], Partial fill upon patient request if the prescription is for a schedule II opioid drug., 155, cm, 02/23/22 8:04:00 EDT... Start Date: 01/06/23 Stop Date: 10/03/23 Status: Ordered Centrum Silver Ultra Women's oral tablet 1 tablet, By Mouth, Daily, 0 Refills, Maintenance, 07/09/18 8:43:55 EST Start Date: 07/09/18 Status: Ordered [facility] SENIOR PROBIOTIC CAPSULE TAKE 2 CAPSULES BY MOUTH TWICE A DAY Start Date: 11/01/21 Status: Ordered [facility] Senior Probiotic Capsule [facility] Senior Probiotic Capsule, See Instructions, # [...] mL, 5 Refills, 03/02/22 8:08:00 EDT, [facility]/pharmacy #[id number], 155, cm, 02/23/22 8:04:00 EDT, [...] Soft Stop, 03/27/23 18:43:00 EDT, Tablet, [facility]/pharmacy #[id number], Partial fill upon patient request if the prescription is for a schedule II opioid... Start Date: 03/27/23 Status: Ordered fluconazole 150 mg oral tablet 1 tablet = 150 mg, By Mouth, Every week, # 4 tablet, 1 Refills, Soft Stop, 05/26/22 8:59:00 EDT, Tablet, [facility]/pharmacy #[id number], Partial fill upon patient request [...] 01/17/23 19:36:00 EDT, Route to Pharmacy Electronically, [facility], 155, cm, 10/10/22 [...] 2, Maintenance, Juzo Compression Hose 2 pairs jrudt-fkd-oadj Soft Knee FF Petite 20-30 mmHg Silicone, Black Stock Code [id number] I I I Part #[id number] Size I I I SKU... Start Date: [...] 0 Refills, Maintenance, 03/12/23 9:16:00 EDT, [facility]/pharmacy #[id number], 155, cm, 10/10/22 13:40:00 EST, Height, 93.4, kg, 11/01/21 16:52:00 EDT, Dry Weight Start Date: 03/12/23 Status: Ordered Power [place] Lift with [place] split-leg sling Power [place] Lift with [place] split-leg sling, See Instructions, # 1 each, [...] Refills, Maintenance, 12/11/22 17:34:00 EDT, Tablet, [facility]/pharmacy #[id number], Partial fill upon patient request [...] CT Scan Abdomen, Non- BH Authored Date: US Lower extremity * Event Display: Ultrasound Lower Extremity Authored Date: Patient Care team information Care Team Personnel Name: Juliann Rich RN Position: [facility] RN Member Role: Primary Care Nurse Name: Elsa Allen NP Position: Reference Physician Member Role: Primary Care Nurse Address: Address: [address] [place] [address] [address] [place] [address]- [place] Name: Emma Mendoza RN Position: [facility] AMB Nurse Member Role: Primary Care Nurse Name: Juan Manuel LIM, Kristen Acosta Position: [facility] Physician - Primary Care Member Role: PCP Address: Address: [address] [place] [address]- Name: Komal Goodrich Position: [facility] Outreach Member Role: Lifetime Consulting Physician Name: Godfrey Cano Position: [facility] RN Member Role: Primary Care Nurse Name: Anette Miranda RN Position: [facility] Onco RN Member Role: Primary Care Nurse Care Team Related Persons Name: DIOMEDES WARNER Address: home [address] [place] [address] Name: MOO HOWELL Address: [address] [place] [address] Name: MARLON GENTILE
--- OUTSIDE RECORDS SUMMARY | 2024-03-17 13:38 | XMS_ITS | Continuity of Care Document ---
Author Organization [facility] Address [address] [place] [address]- Care Team Providers Care Hedge Fund Trader Name Role Phone Juan Manuel LIM, Kristen Acosta Primary Care Physic juan alberto [facility] Date[facility]s): 08/03/21 - 09/02/21 [facility] [address] [place] [address]- Allergies, Adverse Reactions, Alerts Substance Reaction Severity [...] 04/19/22 17:46:00 EDT, 08/22/21 17:46:00 EST, Capsule, [facility]/pharmacy #[id number], Partial fill upon patient request if the prescription is for a schedul... Start Date: 08/22/21 Stop Date: 04/19/22 Status: Ordered ascorbic acid 1000 mg oral tablet 1 tablet = 1,000 mg, By Mouth, 2 times a day, # 90 tablet, 1 Refills, Maintenance, 08/11/21 17:03:00 EST, Tablet, [facility]/pharmacy [...] 08/02/21 14:09:00 EST, Route to Pharmacy Electronically, [facility], Partial fill upon patient request if the prescription is for a... Start Date: 08/02/21 Status: Ordered bifidobacterium-lactobacillus oral tablet 2 tablet, By Mouth, 2 times a day, [facility] Brand please ([facility]), # 360 tablet, 3 [...] 01/09/22 14:17:00 EDT, 07/13/21 14:17:00 EST, Tablet, [facility], Partial fill upon patient request if the prescription is for a schedul... Start Date: 07/13/21 Stop Date: 01/09/22 Status: Ordered calcium carbonate 600 mg oral tablet 1 tablet = 600 mg, By Mouth, 2 times a day, # 180 tablet, 1 Refills, Maintenance, 01/09/22 14:17:00EDT, Tablet, [facility]/pharmacy #[id number], [...] Refills, SoftStop, 09/01/21 9:49:00 EST, REC Powder, [facility]/pharmacy #[id number], Partial [...] 04/05/21 13:39:00 EDT, Route to Pharmacy Electronically, [facility], Partial fill upon patient request if the prescription is for a schedule... Start Date: 04/05/21 Stop Date: 05/05/21 Status: Ordered gabapentin 300 mg oral capsule 300 mg, 1, capsule, By Mouth, Daily at bedtime, # 90 capsule, Refills 2, Tot. Refills 2, Maintenance, 08/02/21 14:08:00 EST, Route to Pharmacy Electronically, [facility], Partial fill upon patient request if the prescription is... Start Date: 08/02/21 Status: Ordered levothyroxine 0.088 mg oral tablet 1 tablet = 88 mcg, By Mouth, Daily, # 90 tablet, 1 Refills, Maintenance, 07/13/21 14:09:00 EST, Tablet, [facility], Partial fill upon patient request if the prescription is fora schedule II opioid drug., 153, cm, 06/27/21 7:47:... Start Date: 07/13/21 Status: Ordered lisinopril 5 mg oral tablet 5 mg, 1, tablet, By Mouth, Daily, # 90 tablet, Refills 1, Tot. Refills 1, Maintenance, 07/13/21 14:08:00 EST, Route to Pharmacy Electronically, [facility], Partial fill upon patient request if the prescription is for a schedule... Start Date: 07/13/21 Status: Ordered Power [place] Lift with [place] [...] 1 Refills, Maintenance, 07/14/21 17:19:00 EST, Tablet, [facility], Partial fill upon patient request if t... Start Date: 07/14/21 Stop Date: 09/08/21 Status: Ordered Turmeric = 750 mg, By Mouth, 2 times a day, 0 Refills, Maintenance, 07/09/18 8:47:35 EST Start Date: 07/09/18 Status: Ordered Vitamin D3 2000 intl units oral capsule 1 capsule, By Mouth, Daily, # 90 capsule, 1 Refills, 08/11/21 17:04:00 EST, [facility]/pharmacy #[id number], 153, cm, 06/27/21 7:47:00 EST, Height [...]
--- OUTSIDE RECORDS SUMMARY | 2024-03-17 13:38 | XMS_ITS | Continuity of Care Document ---
Author Organization [facility] Address [address] [place] [address]- Care Team Providers Care Radio Frequency Engineer Name Role Phone Jason FINANCIAL SERVICE REP, Efrem Pickering Primary Care Physician Encounter [facility] Date(s): 09/23/19 - 02/05/20 [facility] [address] [place] [address]- [facility] Attending Physician: Nicolle Barton MD Admitting Physician: Nicolle Barton MD Referring Physician: Maria Del Carmen Rosas [...]
--- OUTSIDE RECORDS SUMMARY | 2024-03-17 13:38 | XMS_ITS | Continuity of Care Document ---
Author Organization [facility] Address [address] [place] [address]- Care Team Providers Care Heel Attacher Wood Name Role Phone Juan Manuel LIM, Kristen Acosta Primary Care Physic juan alberto [facility]counter [facility] Date(s): 04/24/22 - 06/21/22 [facility] [address] [place] [id number] Attending Physician: Kary Johnson MD Admitting Physician: Kary Johnson MD Referring Physician: Kristen Zambrano MD Allergies, Adverse Reactions, Alerts Substance Reaction Severity Status morphine hives, SOB Active penicillins hive Active Wellbutrin rash Active contrast media (iodine-based) itching throughout body Active Other Environmental Allergy mercury-fillings Active Reglan Active cannabis (Schedule I substance) itching/vomiting Active Immunizations Given and Recorded Vaccine Date Status Refusal Reason pneumococcal 20-valent conjugate vaccine 05/30/22 Recorded [id number] 12y+ bivalent booster vax 05/12/22 Recorded influenza [...] vaccine, inactivated 04/26/09 Arnoldo rded SARS-CoV-2 mRNA (psbcbxi-gtqs-ggmjz) vax 03/10/22 Recorded SARS-CoV-2 mRNA (liylhkb-jxmf-swrkv) vax 10/04/21 Recorded SARS-CoV-2 (COVID-19) mRNA BNT-162b2 [...] 2 Refills, Maintenance, 02/28/22 8:12:00EDT, Tablet, [facility]/pharmacy #[id number], Partial fill upon patient request if the prescription is for a schedule II opioid drug., 155, cm, 02/23/22 8:04:00 EDT... Start Date: 02/28/22 Status: Ordered baclofen 20 mg oral tablet 20 mg, 1, tablet, By Mouth, 3 times a day, # 270 tablet, Refills 2, Tot. Refills 2, Maintenance, 12/09/22 12:44:00 EDT, Route to Pharmacy Electronically, [facility], Partial fill upon patient request if the prescription is for a... Start Date: 12/09/22 Stop Date: 09/05/23 Status: Ordered baclofen 20 mg oral tablet 20 mg, 1, tablet, By Mouth, 3 times a day, for 90 days, # 270 tablet, Refills 2, Tot. Refills 2, Hard Stop 12/09/22 12:44:00 EDT, 03/14/22 12:44:00 EDT, [id number] Partial fill upon patient request if the pre... Start Date: 03/14/22 Stop Date: 12/09/22 Status: Ordered bifidobacterium-lactobacillus oral tablet 2 tablet, By Mouth, 2 times a day, [facility] Brand please (Senior Wellness), # 360 tablet, 3 Refills, Maintenance, 08/11/21 17:02:00 EST, Tablet, [facility]/pharmacy #[id number], Partial fill upon patient request if the prescription is for a schedule II opioid drug., 2... Start Date: 08/11/21 Stop Date: 08/06/22 Status: Ordered calcium carbonate 600 mg oral tablet 1 tablet = 600 mg, By Mouth, 2 times a day, # 180 tablet, 2 Refills, Maintenance, 01/06/23 14:02:00EDT, Tablet, [facility]/pharmacy #[id number], Partial fill upon patient [...] 01/06/23 14:02:00 EDT, 01/11/22 14:02:00 EDT, Tablet, [facility], Partial fill upon patient [...] 07/25/22 8:59:00 EST, 05/26/22 8:59:00 EDT, Cream, [facility]/pharmacy #[id number], Partial fill upon patient request if the prescription is for a schedule II opioid drug., 1 applicat... Start Date: 05/26/22 Stop Date: 07/25/22 Status: Ordered [facility] SENIOR PROBIOTIC CAPSULE TAKE 2 CAPSULES BY MOUTH TWICE A DAY Start Date: 11/01/21 Status: Ordered diclofenac 1% topical gel 1 application, Topically, 4 times a day, Apply 4 gram QID prn to affected pain to dropped foot - not to exceed 16 grams/day/single joint of lower extremities, # 100 Gm, 3 Refills, Maintenance, 04/02/22 21:13:00 EDT, Gel, [facility] Start Date: 04/02/22 [...] 5 Refills, 03/02/22 8:08:00 EDT, [facility]/pharmacy #[id number], 155, cm, 02/23/22 8:04:00 [...] Stop, 05/26/22 8:59:00 EDT, Tablet, [facility]/pharmacy #[id number], Partial fill upon patient [...] Tot. Refills 2, Maintenance, 20-30mmghg FF Petite (short),Utvvl-bqs-hpkb, soft knee, black silicone Stock code [id number] Part #[id number], Size III. [facility] [id number], 12/07/21 11:32:00 EDT,... Start Date: 12/07/21 Status: [...] 15:53:00 EDT, Route to Pharmacy Electronically, [facility]/pharmacy #[id number], Partial fill upon patient request if the prescription is for a schedule II opioid drug.... Start Date: 02/24/22 Status: Ordered Mapap 500 mg oral capsule See Instructions, TAKE 2 CAPSULES BY MOUTH 4 TIMES A DAY NEEDED FOR PAIN, # 480 capsule, 3 Refills, Maintenance, 06/04/22 16:03:00 EDT, [id number], 155, cm, 05/25/22 13:44:00 EDT, Height, 93.4, kg, 11/01/21 16:52:00 EDT, Dry Weight Start Date: 06/04/22 Status: Ordered Potassium Chloride (Eqv-K-Tab) 20 mEq oral tablet, extended release 1 tablet = 20 mEq, By Mouth, Daily, for low potassium, # 10 tablet, 0 Refills, Maintenance, 03/02/22 19:14:00 EDT, [facility]/pharmacy #[id number], Partial fill upon patient request if the prescription is for a schedule II opioid drug., 155, cm, 02/23/22 8:04:00 E... Start Date: 03/02/22 Stop Date: 03/12/22 Status: Ordered Power [place] Lift with [place] split-leg sling Power [place] Lift with [place] split-leg sling, See Instructions, # 1 each, [...] Refills, Maintenance, 02/28/22 8:12:00 EDT, Tablet, [facility]/pharmacy #[id number], Partial fill upon patient [...] capsule, 2 Refills, 02/28/22 8:13:00 EDT, [facility]/pharmacy #[id number], 155,cm, 02/23/22 8:04:00 EDT, Height, 93.4, kg, 11/01/21 16:52:00 EDT, Dry Weight Start Date: 02/28/22 Status: Ordered Xarelto 20 mg oral tablet 1 tablet = 20 mg, By Mouth, Daily at supper, # 90 tablet, 3 Refills, Maintenance, 02/01/22 12:42:00EDT, Tablet, [facility], Partial fill [...] Team Personnel Name: Juliann Rich RN Position: [facility] RN Member Role: Primary Care Nurse Name: Elsa Allen NP Position: Reference Physician Member Role: Primary Care Nurse Address: Address: [address] [place] [address] [address] [place] [address]- [place] Name: Emma Mendoza RN Position: [facility] RN Member Role: Primary Care Nurse Name: Juan Manuel LIM, Kristen Acosta Position: [facility] Primary Care Physician Member Role: PCP Address: Address: [address] [place] [address]- Name: Jade Medina Position: S RN Member Role: Primary Care Nurse Name: Komal Goodrich Position: [facility] Outreach Member Role: Lifetime Consulting Physician Name: Godfrey Cano Position: [facility] RN Member Role: Primary Care Nurse Name: Anette Miranda RN Position: [facility] Onco RN Member Role: Primary Care Nurse Care Team Related Persons Name: DIOMEDES WARNER Address: home [address] [place] [address] Name: MOO HOWELL Address: home [address] [place] [address] Name: MARLON GENTILE
--- OUTSIDE RECORDS SUMMARY | 2024-03-17 13:38 | XMS_ITS | Continuity of Care Document ---
Author Organization [facility] Address [address] [place] [address]- Care Team Providers Care Production Assembly Operator Name Role Phone Juan Manuel LIM, Kristen Acosta Primary Care Physic juan alberto [facility] Date(s): 01/03/22 - 02/02/22 [facility] [address] [place] [address]- Allergies, Adverse Reactions, Alerts Substance Reaction Severity Status morphine hives, SOB Active Wellbutrin rash Active Other Environmental Allergy mercury-fillings Active contrast media (iodine-based) itching throughout body Active penicillins hive Active Reglan Active cannabis (Schedule I substance) itching/vomiting Active Immunizations Given and Recorded Vaccine Date Status Refusal Reason SARS-CoV-2 mRNA (hnjdezs-kbur-idqug) vax 10/04/21 Recorded influenza virus vaccine, inactivated [...] 04/19/22 17:46:00 EDT, 08/22/21 17:46:00 EST, Capsule, [facility]/pharmacy #[id number], Partial fill upon patient request if the prescription is for a schedul... Start Date: 08/22/21 Stop Date: 04/19/22 Status: Ordered ascorbic acid 1000 mg oral tablet 1 tablet = 1,000 mg, By Mouth, 2 times a day, # 90 tablet, 1 Refills, Maintenance, 08/11/21 17:03:00 EST, Tablet, [facility]/pharmacy #[id number], Partial fill upon patient request if the prescription is for a schedule II opioid drug., 153, cm, 06/27/21 7:47:00 ES... Start Date: 08/11/21 Status: Ordered baclofen 20 mg oral tablet 20 mg, 1, tablet, By Mouth, 3 times a day, # 360 tablet, Refills 1, Tot. Refills 1, Maintenance, 08/02/21 14:09:00 EST, Route to Pharmacy Electronically, [facility], Partial fill upon patient request if the prescription is for a... Start Date: 08/02/21 Status: Ordered bifidobacterium-lactobacillus oral tablet 2 tablet, By Mouth, 2 times a day, [facility] Brand please (Senior Wellness), # 360 tablet, 3 Refills, Maintenance, 08/11/21 17:02:00 EST, Tablet, [facility]/pharmacy #[id number], Partial fill upon patient request if the prescription is for a schedule II opioid drug., 2... Start Date: 08/11/21 Stop Date: 08/06/22 Status: Ordered calcium carbonate 600 mg oral tablet 1 tablet = 600 mg, By Mouth, 2 times a day, # 180 tablet, 3 Refills, Maintenance, 01/11/22 14:02:00EDT, Tablet, [facility], Partial fill upon patient request if the prescription is for a schedule II opioid drug., 155, cm, 01/02... Start Date: 01/11/22 Stop Date: 01/06/23 Status: Ordered Centrum Silver Ultra Women's oral tablet 1 tablet, By Mouth, Daily, 0 Refills, Maintenance, 07/09/18 8:43:55 EST Start Date: 07/09/18 Status: Ordered [facility] SENIOR PROBIOTIC CAPSULE TAKE 2 CAPSULES BY MOUTH TWICE A DAY Start Date: 11/01/21 Status: Ordered diclofenac 1% topical gel 1 application, Topically, 4 times a day, # 100 Gm, 3 Refills, Maintenance, 01/11/22 14:07:00 EDT, Gel, [facility], Partial fill upon [...] STILL NEEDED, # 450 mL, 0 Refills, [id number], 153, cm, 08/30/21 16:43:00 EST, Height Start [...] 13:45:00 EDT, [facility] Start Date: 01/11/22 Status: Ordered gabapentin 300 [...] Tot. Refills 2, Maintenance, 20-30mmghg FF Petite (short),Oanos-kva-iduj, soft knee, black silicone Stock code [id number] Part #[id number], Size III. [facility] [id number], 12/07/21 11:32:00 EDT,... Start Date: 12/07/21 Status: [...] 13:42:00 EDT, Route to Pharmacy Electronically, [facility], Partial fill upon patient request if the prescription is for a schedule... Start Date: 01/11/22 Status: Ordered Power [place] Lift with [place] split-leg sling Power [place] Lift with [place] split-leg sling, See Instructions, # 1 each, [...] 1 Refills, Maintenance, 12/09/21 1:28:00 EDT, Tablet, [facility]/pharmacy #[id number], Partial fill upon patient request [...] 90 capsule, 1 Refills, 08/11/21 17:04:00 EST, [facility]/pharmacy #[id number], 153, cm, 06/27/21 7:47:00 EST, Height Start Date: 08/11/21 Status: Ordered Xarelto 20 mg oral tablet 1 tablet = 20 mg, By Mouth, Daily at supper, # 90 tablet, 3 Refills, Maintenance, 02/01/22 12:42:00EDT, Tablet, [facility], Partial fill upon patient request [...]
--- OUTSIDE RECORDS SUMMARY | 2024-03-17 13:38 | XMS_ITS | Continuity of Care Document ---
Author Organization [facility] Address [address] [place] [address]- Care Team Providers Care Optometric Aide Name Role Phone Jason CENTENO, Efrem Pickering Primary Care Physician [phone] Encounter [facility] R [id number] Date(s): 09/25/19 - 09/25/[address] [address]- [facility] Attending Physician: Not on Staff, Attending MD [...]
--- OUTSIDE RECORDS SUMMARY | 2024-03-17 13:38 | XMS_ITS | Continuity of Care Document ---
Author Organization [facility] Address Unknown Care Team Providers Care Process Tank Tender Name Role Phone Juan Manuel LIM, Kristen Acosta Primary Care Physic juan alberto Encounter [facility] Date(s): 02/10/22 - 03/12/22 [facility] Allergies, Adverse Reactions, Alerts Substance Reaction Severity Status morphine hives, SOB Active penicillins hive Active Wellbutrin rash Active Reglan Active cannabis (Schedule I substance) itching/vomiting Active Other Environmental Allergy mercury-fillings Active contrast media (iodine-based) itching throughout body Active Immunizations Given and Recorded Vaccine Date Status Refusal Reason SARS-CoV-2 mRNA (wzrqyxp-plmg-paqzp) vax 10/04/21 Recorded influenza virus vaccine, inactivated [...] Arnoldo rded influenza virus vaccine, inactivated 04/01/12 Arnlodo rded influenza virus vaccine, inactivated 04/26/09 Arnoldo [...] 08/02/21 14:09:00 EST, Route to Pharmacy Electronically, [facility], Partial fill upon patient request if the prescription is for a... Start Date: 08/02/21 Status: Ordered bifidobacterium-lactobacillus oral tablet 2 tablet, By Mouth, 2 times a day, [facility] Brand please ([facility]), # 360 tablet, 3 Refills, Maintenance, 08/11/21 17:02:00 EST, Tablet, [facility]/pharmacy #[id number], Partial fill upon patient request if the prescription is for a schedule II opioid drug., 2... Start Date: 08/11/21 Stop Date: 08/06/22 Status: Ordered calcium carbonate 600 mg oral tablet 1 tablet = 600 mg, By Mouth, 2 times a day, # 180 tablet, 2 Refills, Maintenance, 01/06/23 14:02:00EDT, [id number] fill upon patient [...] 14:02:00 EDT, 01/11/22 14:02:00 EDT, Tablet, [facility], Partial fill upon patient [...] 3 Refills, Maintenance, 01/11/22 14:07:00 EDT, Gel, [facility], Partial fill upon patient [...] 9:03:00 EDT, Route to Pharmacy Electronically, [facility], Partial fill upon patient [...] EDT, [facility] Start Date: 01/11/22 Status: Ordered gabapentin 300 mg oral capsule 300 mg, 1, capsule, By Mouth, 3 times a day, # 90 capsule, Refills 2, Tot. Refills 2, Maintenance, 02/20/22 7:44:00 EDT, Route to Pharmacy Electronically, [id number], Partial fill upon patient request if the prescription is for a schedule II o... Start Date: 02/20/22 Stop Date: 05/21/22 Status: Ordered Juzo Compression Hose Juzo Compression Hose, See Instructions, # 2 each, Refills 2, Tot. Refills 2, Maintenance, 20-30mmghg FF Petite (short),Aeugx-mtz-xdyk, soft knee, black silicone Stock code [id number] Part #[id number], Size III. [facility] [id number], 12/07/21 11:32:00 EDT,... Start Date: 12/07/21 Status: Ordered levothyroxine 0.088 mg oral tablet 1 tablet = 88 mcg, By Mouth, Daily, # 90 tablet, 1 Refills, Maintenance, 07/13/21 14:09:00 EST, Tablet, [facility], Partial fill upon patient [...] 03/12/22 Status: Ordered Power Virginia Lift with [place] split-leg sling Power Virginia Lift with [place] split-leg sling, See Instructions, # 1 each, [...] tablet, 3 Refills, Maintenance, 02/01/22 12:42:00EDT, Tablet, [facility] [place] [facility], Partial fill upon patient request [...]
--- OUTSIDE RECORDS SUMMARY | 2024-03-17 13:38 | XMS_ITS | Continuity of Care Document ---
Author Organization [facility] Address [address] [place] [address]- Care Team Providers Care Rod Buster Helper Name Role Phone Juan Manuel LIM, Kristen Acosta Primary Care Physic juan alberto Encounter [facility] Date(s): 05/16/23 - 06/15/23 [facility] [address] [place] [address]- Allergies, Adverse Reactions, Alerts Substance Reaction Severity Status morphine hives, SOB Active penicillins hive Active Wellbutrin rash Active Reglan Active cannabis (Schedule I substance) itching/vomiting Active Other Environmental Allergy mercury-fillings Active contrast media (iodine-based) itching throughout body Active Immunizations Given and Recorded Vaccine Date Status Refusal Reason pneumococcal 20-valent conjugate vaccine 05/30/22 Recorded CSEN-OwR-7uOFD 12y+ bivalent booster vax 05/12/22 Recorded influenza [...] vaccine, inactivated 04/26/09 Arnoldo rded SARS-CoV-2 mRNA (aibsski-wvri-thnly) vax 03/10/22 Recorded SARS-CoV-2 mRNA (rbzwrgj-tufu-iualz) vax 10/04/21 Recorded SARS-CoV-2 (COVID-19) mRNA BNT-162b2 [...] 1 Refills, Maintenance, 12/11/22 17:34:00 EDT, Tablet, [facility]/pharmacy #[id number], Partial fill upon patient request if the prescription is for a schedule II opioid drug., 155, cm, 10/10/22 13:40:00 E... Start Date: 12/11/22 Status: Ordered baclofen 20 mg oral tablet 20 mg, 1, tablet, By Mouth, 3 times a day, # 270 tablet, Refills 2, Tot. Refills 2, Maintenance, 12/09/22 12:44:00 EDT, Route to Pharmacy Electronically, [facility], Partial fill upon patient request if the prescription is for a... Start Date: 12/09/22 Stop Date: 09/05/23 Status: Ordered bifidobacterium-lactobacillus oral tablet 2 tablet, By Mouth, 2 times a day, [facility] Brand please ([facility]), # 360 tablet, 3 Refills, Maintenance, 08/11/21 17:02:00 EST, Tablet, [facility]/pharmacy #[id number], Partial fill upon patient request if the prescription is for a schedule II opioid drug., 2... Start Date: 08/11/21 Stop Date: 08/06/22 Status: Ordered calcium carbonate 600 mg oral tablet 1 tablet = 600 mg, By Mouth, 2 times a day, # 180 tablet, 2 Refills, Maintenance, 01/06/23 14:02:00EDT, Tablet, [facility]/pharmacy #[id number], Partial fill upon patient request if the prescription is for a schedule II opioid drug., 155, cm, 02/23/22 8:04:00 EDT... Start Date: 01/06/23 Stop Date: 10/03/23 Status: Ordered Centrum Silver Ultra Women's oral tablet 1 tablet, By Mouth, Daily, 0 Refills, Maintenance, 07/09/18 8:43:55 EST Start Date: 07/09/18 Status: Ordered [facility] SENIOR PROBIOTIC CAPSULE TAKE 2 CAPSULES BY MOUTH TWICE A DAY Start Date: 11/01/21 Status: Ordered [facility] Senior Probiotic Capsule [facility] Senior Probiotic Capsule, See Instructions, [...] 450 mL, 5 Refills, 03/02/22 8:08:00 EDT, [facility]/pharmacy #[id number], 155, cm, 02/23/22 8:04:00 [...] Refills, Soft Stop, 03/27/23 18:43:00 EDT, Tablet, [facility]/pharmacy #[id number], Partial fill upon patient request if the prescription is for a schedule II opioid... Start Date: 03/27/23 Status: Ordered fluconazole 150 mg oral tablet 1 tablet = 150 mg, By Mouth, Every week, # 4 tablet, 1 Refills, Soft Stop, 05/26/22 8:59:00 EDT, Tablet, [facility]/pharmacy #[id number], Partial fill upon patient [...] 2, Maintenance, Juzo Compression Hose 2 pairs twgri-koh-mgdv Soft Knee FF Petite 20-30 mmHg Silicone, Black Stock Code [id number] I I I Part #[id number] Size I I I SKU... Start Date: 03/12/23 Status: Ordered levothyroxine 0.088 mg oral tablet 1 tablet = 88 mcg, By Mouth, Daily, # 90 tablet, 3 Refills, Maintenance, 03/15/23 17:17:00 EDT, Tablet, [facility], Partial fill upon patient request if the prescription is fora schedule II opioid drug., 155, cm, 03/15/23 17:11... Start Date: 03/15/23 Status: Ordered lisinopril 5 mg oral tablet 1, tablet, By Mouth, Daily, # 90 tablet, Refills 3, Tot. Refills 3, Maintenance, 03/15/23 17:16:00 EDT, Route to Pharmacy Electronically, [facility], 155, cm, 03/15/23 17:11:00EDT, Height, 93.4, kg, 11/01/21 16:52:00 EDT, Dry W... Start Date: 03/15/23 Status: Ordered Mapap 500 mg oral capsule See Instructions, TAKE 2 CAPSULES BY MOUTH 4 TIMES A DAY NEEDED FOR PAIN, # 480 capsule, 0 Refills, Maintenance, 03/12/23 9:16:00 EDT, [facility]/pharmacy #[id number], 155, cm, 10/10/22 13:40:00 EST, Height, 93.4, kg, 11/01/21 16:52:00 EDT, Dry Weight Start Date: 03/12/23 Status: Ordered Power [place] Lift with [place] split-leg sling Power [place] Lift with [place] split-leg sling, See Instructions, # 1 each, [...] 5 Refills, Maintenance, 12/11/22 17:34:00 EDT, Tablet, [facility]/pharmacy #[id number], Partial fill upon patient [...] Team Personnel Name: Juliann Rich RN Position: [facility] RN Member Role: Primary Care Nurse Name: Elsa Allen NP Position: Reference Physician Member Role: Primary Care Nurse Address: Address: [address] [place] [address] [address] [place] [address]- Name: Emma Mendoza RN Position: [facility] AMB Nurse Member Role: Primary Care Nurse Name: Juan Manuel LIM, Kristen Acosta Position: [facility] Physician - Primary Care Member Role: PCP Address: Address: [address] [place] [address]- Name: Komal Goodrich Position: [facility] Outreach Member Role: Lifetime Consulting Physician Name: Godfrey Cano Position: [facility] RN Member Role: Primary Care Nurse Name: Anette Miranda RN Position: [facility] Onco RN Member Role: Primary Care Nurse Care Team Related Persons Name: DIOMEDES WARNER Address: home [address] [place] [address] Name: MOO HOWELL Address: home [address] [place] [address] Name: MARLON GENTILE
--- OUTSIDE RECORDS SUMMARY | 2024-03-17 13:38 | XMS_ITS | Continuity of Care Document ---
Author Organization [facility] Address [address] [place] [address]- Care Team Providers Care Balance And Hairspring Assembler Name Role Phone Juan Manuel LIM, Kristen Acosta Primary Care Physic juan alberto Encounter [facility] Date(s): 01/11/22 - 02/10/22 [facility] [address] [place] [address]- Attending Physician: Admnatalia, Alissa Admitting Physician: Admtr, Alissa Referring Physician: Admtr, Ar8 Allergies, Adverse Reactions, Alerts Substance Reaction Severity Status morphine hives, SOB Active penicillins hive Active Wellbutrin rash Active Reglan Active cannabis (Schedule I substance) itching/vomiting Active Other Environmental Allergy mercury-fillings Active contrast media (iodine-based) itching throughout body Active Immunizations Given and Recorded Vaccine Date Status Refusal Reason SARS-CoV-2 mRNA (buvwktg-bhql-puauy) vax 10/04/21 Recorded influenza virus vaccine, inactivated 04/10/21 Arnoldo rded influenza virus vaccine, inactivated 04/03/20 Arnoldo rded influenza virus vaccine, inactivated 05/13/19 Ranoldo rded influenza virus vaccine, inactivated 04/16/18 Arnoldo [...] 04/19/22 17:46:00 EDT, 08/22/21 17:46:00 EST, Capsule, [facility]/pharmacy #[id number], Partial fill upon patient request if the prescription is for a schedul... Start Date: 08/22/21 Stop Date: 04/19/22 Status: Ordered ascorbic acid 1000 mg oral tablet 1 tablet = 1,000 mg, By Mouth, 2 times a day, # 90 tablet, 1 Refills, Maintenance, 08/11/21 17:03:00 EST, Tablet, [facility]/pharmacy #[id number], Partial fill upon patient request if the prescription is for a schedule II opioid drug., 153, cm, 06/27/21 7:47:00 ES... Start Date: 08/11/21 Status: Ordered baclofen 20 mg oral tablet 20 mg, 1, tablet, By Mouth, 3 times a day, # 360 tablet, Refills 1, Tot. Refills 1, Maintenance, 08/02/21 14:09:00 EST, Route to Pharmacy Electronically, [facility], Partial fill upon patient request if the prescription is for a... Start Date: 08/02/21 Status: Ordered bifidobacterium-lactobacillus oral tablet 2 tablet, By Mouth, 2 times a day, [facility] Brand please (Senior Wellness), # 360 tablet, [...] tablet, 3 Refills, Maintenance, 01/11/22 14:02:00EDT, Tablet, [facility], [...] 3 Refills, Maintenance, 01/11/22 14:07:00 EDT, Gel, [facility], Partial [...] 450 mL, 0 Refills, 02/08/22 18:16:00 EDT, [facility]/pharmacy #[id number], 155, cm, 01/02/22 8:26:00 EDT, Height, [...] 01/11/22 13:45:00 EDT, Route to Pharmacy Electronically, [facility]... Start Date: 01/11/22 Status: [...] Tot. Refills 2, Maintenance, 20-30mmghg FF Petite (short),Moqus-zsp-uatb, soft knee, black silicone Stock code [id number] Part #[id number], Size III. [facility] [id number], 12/07/21 11:32:00 EDT,... Start Date: 12/07/21 Status: Ordered levothyroxine 0.088 mg oral tablet 1 tablet = 88 mcg, By Mouth, Daily, # 90 tablet, 1 Refills, Maintenance, 07/13/21 14:09:00 EST, Tablet, [facility], Partial fill upon patient request if the prescription is fora schedule II opioid drug., 153, cm, 06/27/21 7:47:... Start Date: 07/13/21 Status: Ordered lisinopril 5 mg oral tablet 5 mg, 1, tablet, By Mouth, Daily, # 90 tablet, Refills 3, Tot. Refills 3, Maintenance, 01/11/22 13:42:00 EDT, Route to Pharmacy Electronically, [facility], Partial fill upon patient request if the prescription is for a schedule... Start Date: 01/11/22 Status: Ordered Power [place] Lift with [place] split-leg sling Power [place] Lift with [place] split-leg sling, See Instructions, # 1 each, [...] 1 Refills, Maintenance, 12/09/21 1:28:00 EDT, Tablet, [facility]/pharmacy #[id number], Partial [...] 90 capsule, 1 Refills, 08/11/21 17:04:00 EST, [facility]/pharmacy #[id number], 153, cm, 06/27/21 7:47:00 EST, Height Start Date: 08/11/21 Status: Ordered Xarelto 20 mg oral tablet 1 tablet = 20 mg, By Mouth, Daily at supper, # 90 tablet, 3 Refills, Maintenance, 02/01/22 12:42:00EDT, Tablet, [facility] [place] [facility], Partial fill upon patient request [...]
--- OUTSIDE RECORDS SUMMARY | 2024-03-17 13:38 | XMS_ITS | Continuity of Care Document ---
Author Organization [facility] Address [address] [place] [address]- Care Team Providers Care Outdoor Power Equipment Mechanic Name Role Phone Juan Manuel LIM, Kristen Acosta Primary Care Physic juan alberto Encounter [facility] Date(s): 03/23/22 - 04/22/22 [facility] [address] [place], [place] [address] Allergies, Adverse Reactions, Alerts [...] vaccine, inactivated 04/26/09 Arnoldo rded SARS-CoV-2 mRNA (zizdfbi-nxcs-gigni) vax 03/10/22 Recorded SARS-CoV-2 mRNA (brucgky-tvfm-blduk) vax 10/04/21 Recorded SARS-CoV-2 (COVID-19) mRNA BNT-162b2 [...] tablet, 2 Refills, Maintenance, 02/28/22 8:12:00EDT, Tablet, [facility]/pharmacy #[id number], Partial fill upon patient request if the prescription is for a schedule II opioid drug., 155, cm, 02/23/22 8:04:00 EDT... Start Date: 02/28/22 Status: Ordered baclofen 20 mg oral tablet 20 mg, 1, tablet, By Mouth, 3 times a day, # 270 tablet, Refills 2, Tot. Refills 2, Maintenance, 12/09/22 12:44:00 EDT, Route to Pharmacy Electronically, [facility] [...] 01/06/23 14:02:00 EDT, 01/11/22 14:02:00 EDT, Tablet, [facility], Partial fill upon patient request if [...] 04/02/22 21:13:00 EDT, Gel, [facility] [facility] Start Date: 04/02/22 Status: Ordered electric [...] 9:03:00 EDT, Route to Pharmacy Electronically, [facility] [...] 02/20/22 7:44:00 EDT, [id number] Partial fill upon patient request if the pre... Start Date: 02/20/22 Stop Date: 05/21/22 Status: Ordered Juzo Compression Hose Juzo Compression Hose, See Instructions, # 2 each, Refills 2, Tot. Refills 2, Maintenance, 20-30mmghg FF Petite (short),Ydhky-icr-yqbj, soft knee, black silicone Stock code [id number] Part #[id number], Size III. [facility] [id number], 12/07/21 11:32:00 EDT,... Start Date: 12/07/21 Status: Ordered levothyroxine 0.088 mg oral tablet 1 tablet = 88 mcg, By Mouth, Daily, # 90 tablet, 3 Refills, Maintenance, 03/31/22 13:45:00 EDT, Tablet, [facility], Partial fill upon patient request if the prescription is fora schedule II opioid drug., 155, cm, 03/14/22 11:11... Start Date: 03/31/22 Status: Ordered lisinopril 5 mg oral tablet 5 mg, 1, tablet, By Mouth, Daily, # 90 tablet, Refills 3, Tot. Refills 3, Maintenance, 02/24/22 15:53:00 EDT, [id number] Partial fill upon patient request [...] 03/12/22 Status: Ordered Power [place] Lift with [place] split-leg sling Power [place] Lift with [place] split-leg sling, See Instructions, # 1 each, [...] 3 Refills, Maintenance, 02/01/22 12:42:00EDT, Tablet, [facility], Partial fill upon [...] Name: Juan Manuel LIM, Kristen Acosta [facility] [address]
--- OUTSIDE RECORDS SUMMARY | 2024-03-17 13:38 | XMS_ITS | Continuity of Care Document ---
Author Organization [facility] Address [address] [place] [address]- Care Team Providers Care Color Paste Mixing Supervisor Name Role Phone Juan Manuel LIM, Kristen Acosta Primary Care Physic juan alberto En[facility] Date(s): 01/10/24 - 02/09/24 [facility] [address] [place], [place] [address] Allergies, Adverse Reactions, Alerts Substance Reaction Severity Status morphine hives, SOB Active penicillins hive Active Wellbutrin rash Active Reglan Active cannabis (Schedule I substance) itching/vomiting Active Other Environmental Allergy mercury-fillings Active contrast media (iodine-based) itching throughout body Active Immunizations Given and Recorded Vaccine Date Status Refusal Reason SARS-CoV-2(COVID-19)mRNA-LNP vac(uel571) 10/19/23 Recorded SARS-CoV-2(COVID-19)mRNA-LNP vac(qsu079) 07/03/23 Recorded RSV vaccine preF3, recombinant 05/19/23 [...] 04/01/13 Arnoldo rded influenza virus vaccine, inactivated 8/20/12 Arnoldo rded influenza virus vaccine, inactivated 04/26/09 Arnoldo rded [id number]-MwA-9vDEG 12y+ bivalent booster vax 01/23/23 Recorded QILH-CjX-1fYFZ 12y+ bivalent booster vax 05/12/22 Recorded pneumococcal 20-valent conjugate vaccine 05/30/22 Recorded SARS-CoV-2 mRNA (qudqmzu-gqka-faohv) vax 03/10/22 Recorded SARS-CoV-2 mRNA (pedoqrr-nvio-rgkmf) vax 10/04/21 Recorded SARS-CoV-2 (COVID-19) mRNA BNT-162b2 [...] 13:53:00 EST, Tablet, [facility]/pharmacy #[id number], Partial fill upon patient request if the [...] 06/25/24 10:31:00 EST, Route to Pharmacy Electronically, [facility] [...] 09/05/23 12:44:00 EST, [id number] Partial fill upon patient request if [...] 11/01/21 Status: Ordered [facility] Senior Probiotic Capsule [facility] [...] Refills, Soft Stop, 03/27/23 18:43:00 EDT, Tablet, [facility]/pharmacy #[id number], [...] 1:01:00 EST, Route to Pharmacy Electronically, [facility], 155, cm, 05/28/23 11:02:00 EDT, Height, 93.4, kg, 11/01/21 16:52:00 EDT, Dry Weight Start Date: 07/03/23 Status: Ordered gabapentin 300 mg oral capsule 300 mg, 1, capsule, By Mouth, 3 times a day, # 270 capsule, Refills 1, Tot. Refills 1, Maintenance,12/28/23 10:30:00 EDT, Route to Pharm[facility] Electron[facility], [facility], Partialfill upon patient request if [...] 2, Maintenance, Juzo Compression Hose 2 pairs iywhg-wwo-izdz Soft Knee FF Petite 20-30 mmHg Silicone, Black Stock Code [id number] I I I Part #[id number] Size I I I SKU... Start Date: 03/12/23 Status: Ordered levothyroxine 0.088 mg oral tablet 1 tablet = 88 mcg, By Mouth, Daily, # 90 tablet, 1 Refills, Maintenance, 10/01/23 17:11:00 EST, Tablet, [facility]/pharmacy #[id number], Partial fill upon patient request if the prescription is for a schedule II opioid drug., 155, cm, 05/28/23 11:02:00 EDT, Height... Start Date: 10/01/23 Status: Ordered lisinopril 5 mg oral tablet 1, tablet, By Mouth, Daily, # 90 tablet, Refills 1, Tot. Refills 1, Maintenance, 10/01/23 17:15:00 EST, Route to Pharmacy Electronically, [facility]/pharmacy #[id number], 155, cm, 05/28/23 11:02:00 EDT, Height, 93.4, kg, 11/01/21 16:52:00 EDT, Dry Weight Start Date: 10/01/23 Status: Ordered Mapap 500 mg oral capsule See Instructions, TAKE 2 CAPSULES BY MOUTH 4 TIMES A DAY NEEDED FOR PAIN, # 480 capsule, 0 Refills, Maintenance, 11/12/23 15:45:00 EDT, [facility]/pharmacy #[id number], 155, cm, 05/28/23 11:02:00 EDT, Height Start Date: 11/12/23 Status: Ordered Power [place] Lift with [place] split-leg sling Power [place] Lift with [place] split-leg sling, See Instructions, # 1 each, [...] Team Personnel Name: Juliann Rich RN Position: [facility] RN Member Role: Primary Care Nurse Name: Elas Allen NP Position: [facility] Outreach Member Role: Primary Care Nurse Address: Address: [address] [place] [address] [place] [address]- Name: Emma Mendoza RN Position: [facility] AMB Nurse Member Role: Primary Care Nurse Name: Juan Manuel LIM, Kristen Acosta Position: [facility] Physician - Primary Care Member Role: PCP Address: Address: [address] [place] [address]- Name: Anette Soler RN Position: [facility] Onco RN Member Role: Primary Care Nurse Name: Komal Goodrich Position: [facility] Outreach Member Role: Lifetime Consulting Physician Name: Godfrey Cano Position: [facility] RN Member Role: Primary Care Nurse Care Team Related Persons Name: DIOMEDES WARNER Address: [address] [place] [address] Name: MOO HOWELL Address: home [address] [place] [address] Name: MARLON GENTILE
--- OUTSIDE RECORDS SUMMARY | 2024-03-17 13:38 | XMS_ITS | Continuity of Care Document ---
Author Organization [facility] Address [address] [place] [address]- Care Team Providers Care Counter Weigher Name Role Phone Juan Manuel LIM, Kristen Acosta Primary Care Physic juan alberto [facility]counter [facility] Date(s): 06/17/23 - 07/17/23 [facility] [address] [place] [address]- Allergies, Adverse Reactions, Alerts Substance Reaction Severity Status morphine hives, SOB Active penicillins hive Active Wellbutrin rash Active Reglan Active cannabis (Schedule I substance) itching/vomiting Active Other Environmental Allergy mercury-fillings Active contrast media (iodine-based) itching throughout body Active Immunizations Given and Recorded Vaccine Date Status Refusal Reason pneumococcal 20-valent conjugate vaccine 05/30/22 Recorded [id number] 12y+ bivalent booster vax 05/12/22 Recorded influenza [...] vaccine, inactivated 04/26/09 Arnoldo rded SARS-CoV-2 mRNA ([id number]-lirx-ldmfu) vax 03/10/22 Recorded SARS-CoV-2 mRNA (uwypcky-hqme-crwul) vax 10/04/21 Recorded SARS-CoV-2 (COVID-19) mRNA BNT-162b2 [...] 12/09/22 12:44:00 EDT, Route to Pharmacy Electronically, [facility], Partial fill upon patient [...] 2, Maintenance, Juzo Compression Hose 2 pairs hqwax-kas-sqja Soft Knee FF Petite 20-30 mmHg Silicone, Black Stock Code [id number] I I I Part #[id number] Size I I I SKU... Start Date: 03/12/23 Status: Ordered levothyroxine 0.088 mg oral tablet 1 tablet = 88 mcg, By Mouth, Daily, # 90 tablet, 3 Refills, Maintenance, 03/15/23 17:17:00 EDT, Tablet, [facility], Partial fill upon patient request if the prescription is fora schedule II opioid drug., 155, cm, 03/15/23 17:11... Start Date: 03/15/23 Status: Ordered lisinopril 5 mg oral tablet 1, tablet, By Mouth, Daily, # 90 tablet, Refills 3, Tot. Refills 3, Maintenance, 03/15/23 17:16:00 EDT, Route to Pharmacy Electronically, [facility], 155, cm, 03/15/23 17:11:00EDT, Height, [...] 03/12/23 Status: Ordered Power Virginia Lift with [place] split-leg sling Power Virginia Lift with [place] split-leg sling, See Instructions, # 1 each, [...] Member Role: Primary Care Nurse Address: Address: [address] [place] [address] [address] [place] [address]- Name: Emma Mendoza RN Position: [facility] AMB Nurse Member Role: Primary Care Nurse Name: Juan Manuel LIM, Kristen Acosta Position: [facility] Physician - Primary Care Member Role: PCP Address: Address: [address] [place] [address]- Name: Komal Goodrich Position: [facility] Outreach Member Role: Lifetime Consulting Physician Name: Godfrey Cano Position: [facility] RN Member Role: Primary Care Nurse Name: Anette Miranda RN Position: [facility] Onco RN Member Role: Primary Care Nurse Care Team Related Persons Name: DIOMEDES WARNER Address: home [address] [place] [address] Name: MOO HOWELL Address: home [address] [place] [address] Name: MARLON GENTILE
--- OUTSIDE RECORDS SUMMARY | 2024-03-17 13:38 | XMS_ITS | Continuity of Care Document ---
Author Organization [facility] Address [address] [place] [address]- Care Team Providers Care Support Teacher Name Role Phone Rey CENTENO, Javy Lerma Primary Care Physician [phone] Encounter [facility] Date(s): 04/12/21 - 05/12/21 [facility] [address] [place], [place] [address] Allergies, Adverse Reactions, Alerts Substance Reaction Severity [...] 0 Refills, Maintenance, 04/25/21 14:08:00 EDT, Tablet, [facility]/pharmacy #[id number], Partial fill upon patient request if [...] 02/18/21 10:23:00 EDT, Route to Pharmacy Electronically, [facility]/pharmacy #[id number], Partial fill upon patient request if [...] 04/05/21 13:39:00 EDT, Route to Pharmacy Electronically, [facility], Partial fill upon patient request if the prescription is for a schedule... Start Date: 04/05/21 Stop Date: 05/05/21 Status: Ordered gabapentin 250 mg/5 mL oral solution 12 mL = 600 mg, By Mouth, 4 times a day, # 1,440 mL, 0 Refills, Maintenance, 02/18/21 10:22:00 EDT[id number] Partial fill upon patient request if the prescription is for a scheduleII opioid drug. Ok to dispense similar quantity if... Start Date: 02/18/21 Stop Date: 03/20/21 Status: Ordered levothyroxine 0.088 mg oral tablet 1 tablet = 88 mcg, By Mouth, Daily, # 90 tablet, 1 Refills, Maintenance, 04/05/21 13:40:00 EDT, Tablet, [facility], Partial fill upon patient request if the prescription is fora schedule II opioid drug., 153, cm, 04/04/21 9:04:... Start Date: 04/05/21 Status: Ordered lisinopril 5 mg oral tablet 5 mg, 1, tablet, By Mouth, Daily, # 90 tablet, Refills 1, Tot. Refills 1, Maintenance, 04/05/21 13:40:00 EDT, Route to Pharmacy Electronically, [facility] tablet, 1 Refills, Maintenance, 04/05/21 13:35:00 EDT, [facility]/pharmacy #[id number], Partial fill upon patient request if [...] 0 Refills, Maintenance, 04/05/21 13:30:00 EDT, Tablet, [facility]/pharmacy #[id number], Partial fill upon patient request if [...]
--- OUTSIDE RECORDS SUMMARY | 2024-03-17 13:38 | XMS_ITS | Continuity of Care Document ---
Author Organization [facility] Address [address] [place] [address] aaron, [address] [place] [address]- Care Team Providers Care Production Zone Leader Name Role Phone Juan Manuel LIM, Kristen Acosta Primary Care Physic juan alberto En[place] [facility] [place] Date(s): 07/13/21 - 08/12/21 [facility] [address] [place] [address], [address] [place] [address]- Allergies, Adverse Reactions, Alerts Substance Reaction Severity [...] 08/02/21 14:09:00 EST, Route to Pharmacy Electronically, [facility] [...] 01/09/22 14:17:00 EDT, 07/13/21 14:17:00 EST, Tablet, [facility], Partial fill upon patient request if the prescription is for a schedul... Start Date: 07/13/21 Stop Date: 01/09/22 Status: Ordered calcium carbonate 600 mg oral tablet 1 tablet = 600 mg, By Mouth, 2 times a day, # 180 tablet, 1 Refills, Maintenance, 01/09/22 14:17:00EDT, Tablet, [facility]/pharmacy #[id number], Partial [...] 04/05/21 13:39:00 EDT, Route to Pharmacy Electronically, [facility], Partial fill upon patient request if the prescription is for a schedule... Start Date: 04/05/21 Stop Date: 05/05/21 Status: Ordered gabapentin 300 mg oral capsule 300 mg, 1, capsule, By Mouth, Daily at bedtime, # 90 capsule, Refills 2, Tot. Refills 2, Maintenance, 08/02/21 14:08:00 EST, Route to Pharmacy Electronically, [facility], Partial fill upon patient request if the prescription is... Start Date: 08/02/21 Status: Ordered levothyroxine 0.088 mg oral tablet 1 tablet = 88 mcg, By Mouth, Daily, # 90 tablet, 1 Refills, Maintenance, 07/13/21 14:09:00 EST, Tablet, [facility], Partial fill upon patient request if the prescription is fora schedule II opioid drug., 153, cm, 06/27/21 7:47:... Start Date: 07/13/21 Status: Ordered lisinopril 5 mg oral tablet 5 mg, 1, tablet, By Mouth, Daily, # 90 tablet, Refills 1, Tot. Refills 1, Maintenance, 07/13/21 14:08:00 EST, Route to Pharmacy Electronically, [facility], Partial fill upon patient request if the prescription is for a schedule... Start Date: 07/13/21 Status: Ordered Power Virginia Lift with [place] split-leg sling Power [place] Lift with [place] split-leg sling, See Instructions, # 1 each, Refills 0, Tot. Refills 0, Maintenance, Dx: Multiple Sclerosis induced Paraplegia Length of time needed: indefinite Purpose: Transfer to[facility] to wheelchair, commode,... Start Date: 08/10/21 Status: Ordered Provigil 200 mg oral tablet 1 tablet = 200 mg, By Mouth, 2 times a day, takes in am and lunchtime brand name only - dispense aswritten, # 56 tablet, 1 Refills, Maintenance, 07/14/21 17:19:00 EST, Tablet, [facility], Partial fill upon patient request if t... Start Date: 07/14/21 Stop Date: 09/08/21 Status: Ordered Turmeric = 750 mg, By Mouth, 2 times a day, 0 Refills, Maintenance, 07/09/18 8:47:35 EST Start Date: 07/09/18 Status: Ordered Vitamin D3 2000 intl units oral capsule 1 capsule, By Mouth, Daily, # 90 capsule, 1 Refills, 08/11/21 17:04:00 EST, [facility]/pharmacy #[id number], 153, cm, 06/27/21 7:47:00 EST, [...]
--- OUTSIDE RECORDS SUMMARY | 2024-03-17 13:39 | XMS_ITS | Continuity of Care Document ---
Author Organization [facility] Address [address] [place] [address]- Care Team Providers Care Food And Nutrition Services Supervisor Name Role Phone Juan Manuel LIM, Kristen Acosta Primary Care Physic juan alberto Encounter [facility] Date(s): 05/08/23 - 06/07/23 [facility] [address] [place] [address]- Allergies, Adverse Reactions, Alerts Substance Reaction Severity Status morphine hives, SOB Active penicillins hive Active Wellbutrin rash Active Reglan Active cannabis (Schedule I substance) itching/vomiting Active Other Environmental Allergy mercury-fillings Active contrast media (iodine-based) itching throughout body Active Immunizations Given and Recorded Vaccine Date Status Refusal Reason pneumococcal 20-valent conjugate vaccine 05/30/22 Recorded [id number] 12y+ bivalent booster vax 05/12/22 Recorded influenza [...] vaccine, inactivated 04/26/09 Arnoldo rded SARS-CoV-2 mRNA (nddlwkv-nawz-cqegi) vax 03/10/22 Recorded SARS-CoV-2 mRNA (yaiilbp-goyj-rdczg) vax 10/04/21 Recorded SARS-CoV-2 (COVID-19) mRNA BNT-162b2 [...] Refills, Maintenance, 12/11/22 17:34:00 EDT, Tablet, [facility]/pharmacy #[id number], Partial fill upon patient request if [...] Mouth, 2 times a day, [facility] Brand please (Senior Wellness), # 360 tablet, 3 Refills, Maintenance, 08/11/21 17:02:00 EST, Tablet, [facility]/pharmacy #[id number], Partial fill upon patient request if the prescription is for a schedule II opioid drug., 2... Start Date: 08/11/21 Stop Date: 08/06/22 Status: Ordered calcium carbonate 600 mg oral tablet 1 tablet = 600 mg, By Mouth, 2 times a day, # 180 tablet, 2 Refills, Maintenance, 01/06/23 14:02:00EDT, Tablet, [facility]/pharmacy #[id number], Partial fill upon patient request if the prescription is for a schedule II opioid drug., 155, cm, 02/23/22 8:04:00 EDT... Start Date: 01/06/23 Stop Date: 10/03/23 Status: Ordered Centrum Silver Ultra Women's oral tablet 1 tablet, By Mouth, Daily, 0 Refills, Maintenance, 07/09/18 8:43:55 EST Start Date: 07/09/18 Status: Ordered [facility] SENIOR PROBIOTIC CAPSULE TAKE 2 CAPSULES BY MOUTH TWICE A DAY Start Date: 11/01/21 Status: Ordered [facility] Senior Probiotic Capsule [facility] Senior Probiotic Capsule, See Instructions, # 180 [...] mL, 5 Refills, 03/02/22 8:08:00 EDT, [facility]/pharmacy #[id number], 155, cm, 02/23/22 8:04:00 EDT, Height, [...] Soft Stop, 03/27/23 18:43:00 EDT, Tablet, [facility]/pharmacy #[id number], Partial fill upon patient request if the prescription is for a schedule II opioid... Start Date: 03/27/23 Status: Ordered fluconazole 150 mg oral tablet 1 tablet = 150 mg, By Mouth, Every week, # 4 tablet, 1 Refills, Soft Stop, 05/26/22 8:59:00 EDT, Tablet, [facility]/pharmacy #[id number], Partial fill upon patient request if [...] 2, Maintenance, Juzo Compression Hose 2 pairs mzpjk-nja-mbym Soft Knee FF Petite 20-30 mmHg Silicone, Black Stock Code [id number] I I I Part #[id number] Size I I I SKU... Start Date: [...] 0 Refills, Maintenance, 03/12/23 9:16:00 EDT, [facility]/pharmacy #[id number], 155, cm, 10/10/22 13:40:00 EST, Height, 93.4, kg, 11/01/21 16:52:00 EDT, Dry Weight Start Date: 03/12/23 Status: Ordered Power Virginia Lift with [place] split-leg sling Power [place] Lift with [place] split-leg sling, See Instructions, # 1 each, [...] Refills, Maintenance, 12/11/22 17:34:00 EDT, Tablet, [facility]/pharmacy #[id number], Partial fill upon patient request if [...] Team Personnel Name: Juliann Rich RN Position: [facility] RN Member Role: Primary Care Nurse Name: Elsa Allen NP Position: Reference Physician Member Role: Primary Care Nurse Address: Address: [address] [place] [address] [address] [place] [address]- Name: Emma Mendoza RN Position: [facility] AMB Nurse Member Role: Primary Care Nurse Name: Juan Manuel LIM, Kristen Acosta Position: [facility] Physician - Primary Care Member Role: PCP Address: Address: [address] [place] [address]- Name: Komal Goodrich Position: [facility] Outreach Member Role: Lifetime Consulting Physician Name: Godfrey Cano Position: [facility] RN Member Role: Primary Care Nurse Name: Anette Miranda RN Position: [facility] Onco RN Member Role: Primary Care Nurse Care Team Related Persons Name: DIOMEDES AWRNER Address: [address] [place] [address] Name: MOO HOWELL Address: [address] [place] [address] Name: MARLON GENTILE
--- OUTSIDE RECORDS SUMMARY | 2024-03-17 13:39 | XMS_ITS | Continuity of Care Document ---
Author Organization [facility] Address [address] [place] [address]- Care Team Providers Care Supervisor/Port Director Name Role Phone Javy Le NP Primary Care Physician [phone] [id number]22/21 [facility] [address] [place] [address]- Encounter Diagnosis MS (multiple sclerosis)(Discharge Diagnosis) - 02/20/21 Bladder spasm(Discharge Diagnosis) - 02/20/21 Trigeminal neuralgia(Discharge Diagnosis) - 02/20/21 Encounter to establish care(Discharge Diagnosis) - 02/20/21 Attending Physician: Javy Le NP Allergies, Adverse [...] Acute 03/18/21 10:20:00 EDT,02/18/21 10:20:00 EDT, Liquid, [facility]/pharmacy #[id number], Partial fill upon [...] 02/18/21 10:23:00 EDT, [facility] mL, 0 Refills, Maintenance, 02/18/21 10:22:00 EDT,Liquid, [facility]/pharmacy #[id number], Partial fill upon [...] 02/18/21 10:23:00 EDT, Route to Pharmacy Electronically, [facility]/pharmacy #[id number] Tablet, Partial fill upon patient r... [...] Service Informant MS (multiple sclerosis) Discharge Diagnosis 02/20/21 Bladder spasm Discharge Diagnosis 02/20/21 Trigeminal neuralgia Discharge Diagnosis 02/20/21 Encounter to establish care Discharge Diagnosis 02/20/21 Vital Signs Most recent to oldest [Reference Range]: 1 Height 153 cm (02/15/21 7:55 AM) Social History Social History Type Response Smoking Status Never smoker entered on: 11/15/14 Sex
--- OUTSIDE RECORDS SUMMARY | 2024-03-17 13:39 | XMS_ITS | Continuity of Care Document ---
Author Organization [facility] Address Unknown Care Team Providers Care Executive Vp Name Role Phone Juan Manuel LIM, Kristen December Karla Primary Care Physic juan alberto Encounter [facility] Date(s): 10/06/21 - 11/05/21 [facility] Allergies, Adverse Reactions, Alerts Substance Reaction [...] 17:46:00 EDT, 08/22/21 17:46:00 EST, Capsule, [facility]/pharmacy #[id number], Partial fill upon patient request if the prescription is for a schedul... Start Date: 08/22/21 Stop Date: 04/19/22 Status: Ordered ascorbic acid 1000 mg oral tablet 1 tablet = 1,000 mg, By Mouth, 2 times a day, # 90 tablet, 1 Refills, Maintenance, 08/11/21 17:03:00 EST, Tablet, [facility]/pharmacy #[id number], Partial fill upon patient request if [...] Mouth, 2 times a day, [facility] Brand please ([facility]), # 360 tablet, 3 Refills, Maintenance, 08/11/21 17:02:00 EST, Tablet, [facility]/pharmacy #[id number], Partial fill upon patient request if the prescription is for a schedule II opioid drug., 2... Start Date: 08/11/21 Stop Date: 08/06/22 Status: Ordered calcium carbonate 600 mg oral tablet 1 tablet = 600 mg, By Mouth, 2 times a day, for 90 days, # 180 tablet, 1 Refills, Hard Stop 01/09/22 14:17:00 EDT, 07/13/21 14:17:00 EST, Tablet, [facility], Partial fill upon patient request if [...] Start Date: 07/09/18 Status: Ordered [facility] SENIOR PROBIOTIC CAPSULE TAKE 2 CAPSULES BY [...] NEEDED, # 450 mL, 0 Refills, [id number], 153, cm, 08/30/21 16:43:00 EST, Height Start [...] 07/13/21 Status: Ordered Power [place] Lift with [place] split-leg sling Power [place] Lift with [place] split-leg sling, See Instructions, # 1 each, [...] 1 Refills, Maintenance, 07/14/21 17:19:00 EST, Tablet, [facility], Partial fill upon [...] capsule, 1 Refills, 08/11/21 17:04:00 EST, [facility]/pharmacy #[id number], 153, cm, 06/27/21 7:47:00 EST, Height [...]
--- OUTSIDE RECORDS SUMMARY | 2024-03-17 13:39 | XMS_ITS | Continuity of Care Document ---
Author Organization [facility] Address [address] [place] [address]- Care Team Providers Care Logistics Clerk Name Role Phone Juan Manuel LIM, Kristen Acosta Primary Care Physic juan alberto Encounter [facility] Date(s): 11/28/22 - 12/28/22 [facility] [address] [place] [address]- Allergies, Adverse Reactions, Alerts Substance Reaction Severity Status morphine hives, SOB Active Wellbutrin rash Active Reglan Active contrast media (iodine-based) itching throughout body Active penicillins hive Active cannabis (Schedule I substance) itching/vomiting Active Other Environmental Allergy mercury-fillings Active Immunizations Given and Recorded Vaccine Date Status Refusal Reason pneumococcal 20-valent conjugate vaccine 05/30/22 Recorded [id number] 12y+ bivalent booster vax 05/12/22 Recorded influenza [...] vaccine, inactivated 04/26/09 Arnoldo rded SARS-CoV-2 mRNA (qrbuwqg-wari-nhjbe) vax 03/10/22 Recorded SARS-CoV-2 mRNA (edhikqb-zapx-hvlhw) vax 10/04/21 Recorded SARS-CoV-2 (COVID-19) mRNA BNT-162b2 [...] Maintenance, 12/11/22 17:34:00 EDT, Tablet, [facility]/pharmacy #[id number], Partial [...] EDT, Route to Pharmacy Electronically, [facility], Partial fill upon patient request if the prescription is for a... Start Date: 12/09/22 Stop Date: 09/05/23 Status: Ordered bifidobacterium-lactobacillus oral tablet 2 tablet, By Mouth, 2 times a day, [facility] Brand please (Senior Wellness), # 360 tablet, 3 Refills, Maintenance, 08/11/21 17:02:00 EST, Tablet, [facility]/pharmacy #[id number], Partial fill upon patient request if the prescription is for a schedule II opioid drug., 2... Start Date: 08/11/21 Stop Date: 08/06/22 Status: Ordered calcium carbonate 600 mg oral tablet 1 tablet = 600 mg, By Mouth, 2 times a day, # 180 tablet, 2 Refills, Maintenance, 01/06/23 14:02:00EDT, Tablet, [facility]/pharmacy #[id number], Partial fill [...] Start Date: 11/01/21 Status: Ordered [facility] Senior Probiotic Capsule [facility] Senior Probiotic Capsule, See Instructions, # 180 [...] Stop, 05/26/22 8:59:00 EDT, Tablet, [facility]/pharmacy #[id number], Partial [...] 01/11/22 13:45:00 EDT, Route to Pharmacy Electronically, [facility] AD[facility]... Start Date: 01/11/22 Status: Ordered gabapentin [...] Tot. Refills 2, Maintenance, 20-30mmghg FF Petite (short),Byvbe-vsj-lcso, soft knee, black silicone Stock code [id number] Part #[id number], Size III. [facility] [id number], 12/07/21 11:32:00 EDT,... Start Date: 12/07/21 Status: Ordered levothyroxine 0.088 mg oral tablet 1 tablet = 88 mcg, By Mouth, Daily, # 90 tablet, 1 Refills, Maintenance, 09/08/22 14:26:00 EST, Tablet, [facility] [...] Replace Required Details, Route to Pharmacy Electronically, [facility], 155, cm, 07/12/22 14:10:00 EST, Height, 93.4, k... Start Date: 09/24/22 Status: Ordered Mapap 500 mg oral capsule See Instructions, TAKE 2 CAPSULES BY MOUTH 4 TIMES A DAY NEEDED FOR PAIN, # 480 capsule, 3 Refills, Maintenance, 06/04/22 16:03:00 EDT, [facility] ST[id number], 155, cm, 05/25/22 13:44:00 EDT, Height, 93.4, kg, 11/01/21 16:52:00 EDT, Dry Weight Start Date: 06/04/22 Status: Ordered Power [place] Lift with [place] split-leg sling Power [place] Lift with [place] split-leg sling, See Instructions, # 1 each, [...] 03/22/23 17:39:00 EDT, 10/05/22 17:39:00 EST, Tablet, [facility]/pharmacy #[id number], Partial fill upon pa... Start Date: 10/05/22 Stop Date: 03/22/23 Status: Ordered Provigil 200 mg oral tablet 1 tablet = 200 mg, By Mouth, 2 times a day, takes in am and lunchtime brand name only - dispense aswritten, # 56 tablet, 5 Refills, Maintenance, 12/11/22 17:34:00 EDT, Tablet, [facility]/pharmacy #[id number], Partial [...] 1 Refills, 12/11/22 15:16:00 EDT, [facility]/pharmacy #[id number], 155, cm, 10/10/22 13:40:00 EST, Height, 93.4, kg, 11/01/21 16:52:00 EDT, Dry Weight Start Date: 12/11/22 Status: Ordered Xarelto 20 mg oral tablet 1 tablet = 20 mg, By Mouth, Daily at supper, # 90 tablet, 3 Refills, Maintenance, 02/01/22 12:42:00EDT, Tablet, [facility], Partial fill upon patient request [...] Role: Primary Care Nurse Address: Address: [address] [place] [address] [address] [place] [address]- Name: Emma Mendoza RN Position: [facility] Nurse Member Role: Primary Care Nurse Name: Kristen Zambrano MD Position: [facility] Primary Care Physician Member Role: PCP Address: Address: [address] [place] [address]- Name: Jade Medina Position: [facility] RN Member Role: Primary Care Nurse Name: Komal Goodrich Position: [facility] Outreach Member Role: Lifetime Consulting Physician Name: Godfrey Cano Position: [facility] RN Member Role: Primary Care Nurse Name: Anette Miranda RN Position: [facility] Onco RN Member Role: Primary Care Nurse Care Team Related Persons Name: FRANCHESCA WARNERIRE Address: [address] [place] [address] Name: MOO HOWELL Address: [address] [place] [address] Name: MARLON GENTILE
--- OUTSIDE RECORDS SUMMARY | 2024-03-17 13:39 | XMS_ITS | Continuity of Care Document ---
Author Organization [facility] Address [address] [place] [address]- Care Team Providers Care Labor Relations Director Name Role Phone Juan Manuel LIM, Kristen Acosta Primary Care Physic juan alberto Encounter [facility] Date(s): 02/23/22 - 03/02/22 [facility] [address] [place] [address]- Encounter Diagnosis Sepsis due to gram-negative UTI(Discharge Diagnosis) - 02/23/22 MS (multiple sclerosis)(Discharge Diagnosis) - 02/23/22 Paraplegia(Discharge Diagnosis) - 02/23/22 Neurogenic bladder(Discharge Diagnosis) - 02/23/22 Hypothyroidism(Discharge Diagnosis) - 02/23/22 Hypertension(Discharge Diagnosis) - 02/23/22 Bilateral leg edema(Discharge Diagnosis) - 02/25/22 DVT (deep venous thrombosis)(Discharge Diagnosis) - 02/25/22 Bladder spasm(Discharge Diagnosis) - 02/25/22 Spasticity(Discharge Diagnosis) - 02/25/22 Attending Physician: Roxana Carias NP Allergies, Adverse Reactions, Alerts Substance Reaction Severity Status morphine hives, SOB Active Wellbutrin rash Active Reglan Active contrast media (iodine-based) itching throughout body Active penicillins hive Active cannabis (Schedule I substance) itching/vomiting Active Other Environmental Allergy mercury-fillings Active Immunizations Given and Recorded Vaccine Date Status Refusal Reason SARS-CoV-2 mRNA (fhmhskl-ffsh-pakju) vax 10/04/21 Recorded influenza virus vaccine, inactivated [...] 08/02/21 14:09:00 EST, Route to Pharmacy Electronically, [facility], Partial fill upon patient request if the prescription is for a... Start Date: 08/02/21 Status: Ordered bifidobacterium-lactobacillus oral tablet 2 tablet, By Mouth, 2 times a day, [facility] Brand please (Senior Wellness), # 360 tablet, 3 Refills, Maintenance, 08/11/21 17:02:00 EST, Tablet, [facility]/pharmacy #[id number], Partial fill upon patient request if the prescription is for a schedule II opioid drug., 2... Start Date: 08/11/21 Stop Date: 08/06/22 Status: Ordered calcium carbonate 600 mg oral tablet 1 tablet = 600 mg, By Mouth, 2 times a day, # 180 tablet, 2 Refills, Maintenance, 01/06/23 14:02:00EDT, Tablet, [facility]/pharmacy #[id number], Partial fill upon patient request [...] 01/06/23 14:02:00 EDT, 01/11/22 14:02:00 EDT, Tablet, [facility], Partial fill upon patient request if the prescription is for a schedul... Start Date: 01/11/22 Stop Date: 01/06/23 Status: Ordered Centrum Silver Ultra Women's oral tablet 1 tablet, By Mouth, Daily, 0 Refills, Maintenance, 07/09/18 8:43:55 EST Start Date: 07/09/18 Status: Ordered [facility] SENIOR PROBIOTIC CAPSULE TAKE 2 CAPSULES BY MOUTH TWICE A DAY Start Date: 11/01/21 Status: Ordered diclofenac 1% topical gel 1 application, Topically, 4 times a day, # 100 Gm, 3 Refills, Maintenance, 01/11/22 14:07:00 EDT, Gel, [facility], Partial fill [...] 450 mL, 5 Refills, 03/02/22 8:08:00 EDT, [facility]/pharmacy #[id number], 155, cm, 02/23/22 8:04:00 EDT, [...] 01/02/22 9:03:00 EDT, [place] Pharm[facility], [facility] [...] 13:45:00 EDT, Route to Pharmacy Electronically, [facility] ADIS... Start Date: 01/11/22 Status: Ordered gabapentin 300 mg oral capsule 300 mg, 1, capsule, By Mouth, 3 times a day, # 90 capsule, Refills 2, Tot. Refills 2, Maintenance, 02/20/22 7:44:00 EDT, [id number] Partial fill upon patient request if the prescription is for a schedule II o... Start Date: 02/20/22 Stop Date: 05/21/22 Status: Ordered Juzo Compression Hose Juzo Compression Hose, See Instructions, # 2 each, Refills 2, Tot. Refills 2, Maintenance, 20-30mmghg FF Petite (short),Traoo-kgo-zlrl, soft knee, black silicone Stock code [id number] Part #[id number], Size III. [facility] [id number], 12/07/21 11:32:00 EDT,... Start Date: 12/07/21 Status: Ordered levothyroxine 0.088 mg oral tablet 1 tablet = 88 mcg, By Mouth, Daily, # 90 tablet, 1 Refills, Maintenance, 07/13/21 14:09:00 EST, Tablet, [facility], Partial fill upon patient request if the prescription is fora schedule II opioid drug., 153, cm, 06/27/21 7:47:... Start Date: 07/13/21 Status: Ordered lisinopril 5 mg oral tablet 5 mg, 1, tablet, By Mouth, Daily, # 90 tablet, Refills 3, Tot. Refills 3, Maintenance, 02/24/22 15:53:00 EDT, [id number] fill upon patient [...] 03/12/22 Status: Ordered Power [place] Lift with [place] split-leg sling Power [place] Lift with [place] split-leg sling, See Instructions, # 1 each, [...] tablet, 3 Refills, Maintenance, 02/01/22 12:42:00EDT, Tablet, [facility], Partial [...] Effective Dates Health Status Clinical Service Informant Sepsis due to gram-negative UTI Discharge Diagnosis 02/23/22 MS (multiple sclerosis) Discharge Diagnosis 02/23/22 Hypothyroidism Discharge Diagnosis 02/23/22 Paraplegia Discharge Diagnosis 02/23/22 Neurogenic bladder Discharge Diagnosis 02/23/22 Hypertension Discharge Diagnosis 02/23/22 Bilateral leg edema Discharge Diagnosis 02/25/22 DVT (deep venous thrombosis) Discharge Diagnosis 02/25/22 Bladder spasm Discharge Diagnosis 02/25/22 Spasticity Discharge Diagnosis 02/25/22 Vital Signs Most recent to oldest [Reference Range]: 1 Height 155 cm (02/23/22 8:04 AM) Social History Social History Type Response Smoking Status Never (less than 100 in lifetime) entered on: 10/31/21 Sex
--- OUTSIDE RECORDS SUMMARY | 2024-03-17 13:39 | XMS_ITS | Continuity of Care Document ---
Author Organization [facility] Address [address], [address], [address] [place] [address]- Care Team Providers Care Poultry Husbandman Name Role Phone Juan Manuel LIM, Kristen Acosta Primary Care Physic juan alberto Encounter [facility] [place] Date(s): 12/13/22 - 01/12/23 [facility] [address], [address], [address] [place] [address]- Allergies, Adverse Reactions, Alerts Substance Reaction Severity Status morphine hives, SOB Active Wellbutrin rash Active Reglan Active contrast media (iodine-based) itching throughout body Active penicillins hive Active cannabis (Schedule I substance) itching/vomiting Active Other Environmental Allergy mercury-fillings Active Immunizations Given and Recorded Vaccine Date Status Refusal Reason pneumococcal 20-valent conjugate vaccine 05/30/22 Recorded [id number] 12y+ bivalent booster vax 05/12/22 Recorded influenza [...] vaccine, inactivated 04/26/09 Arnoldo rded SARS-CoV-2 mRNA (olewjzb-qweb-ylchl) vax 03/10/22 Recorded SARS-CoV-2 mRNA (rcrhwme-gtnl-hjzfo) vax 10/04/21 Recorded SARS-CoV-2 (COVID-19) mRNA BNT-162b2 [...] Refills, Maintenance, 12/11/22 17:34:00 EDT, Tablet, [facility]/pharmacy #[id number], Partial fill upon patient request if the prescription is for a schedule II opioid drug., 155, cm, 10/10/22 13:40:00 E... Start Date: 12/11/22 Status: Ordered baclofen 20 mg oral tablet 20 mg, 1, tablet, By Mouth, 3 times a day, # 270 tablet, Refills 2, Tot. Refills 2, Maintenance, 12/09/22 12:44:00 EDT, Route to Pharmacy Electronically, [facility], Partial fill upon patient request if the prescription is for a... Start Date: 12/09/22 Stop Date: 09/05/23 Status: Ordered bifidobacterium-lactobacillus oral tablet 2 tablet, By Mouth, 2 times a day, [facility] Brand please (Senior Wellness), # 360 tablet, 3 Refills, Maintenance, 08/11/21 17:02:00 EST, Tablet, [facility]/pharmacy #[id number], Partial fill upon patient request if the prescription is for a schedule II opioid drug., 2... Start Date: 08/11/21 Stop Date: 08/06/22 Status: Ordered calcium carbonate 600 mg oral tablet 1 tablet = 600 mg, By Mouth, 2 times a day, # 180 tablet, 2 Refills, Maintenance, 01/06/23 14:02:00EDT, Tablet, [facility]/pharmacy #[id number], Partial fill upon patient request if the prescription is for a schedule II opioid drug., 155, cm, 02/23/22 8:04:00 EDT... Start Date: 01/06/23 Stop Date: 10/03/23 Status: Ordered Centrum Silver Ultra Women's oral tablet 1 tablet, By Mouth, Daily, 0 Refills, Maintenance, 07/09/18 8:43:55 EST Start Date: 07/09/18 Status: Ordered [facility] SENIOR PROBIOTIC CAPSULE TAKE 2 CAPSULES BY MOUTH TWICE A DAY Start Date: 11/01/21 Status: Ordered [facility] Senior Probiotic Capsule [facility] Senior Probiotic Capsule, See Instructions, # 180 [...] mL, 5 Refills, 03/02/22 8:08:00 EDT, [facility]/pharmacy #[id number], 155, cm, 02/23/22 8:04:00 EDT, Height, [...] Soft Stop, 05/26/22 8:59:00 EDT, Tablet, [facility]/pharmacy #[id number], Partial fill upon patient request if [...] 01/11/22 13:45:00 EDT, Route to Pharmacy Electronically, [facility] ADIS... Start Date: 01/11/22 Status: Ordered gabapentin [...] Tot. Refills 2, Maintenance, 20-30mmghg FF Petite (short),Vrmqg-nue-ahry, soft knee, black silicone Stock code [id number] Part #[id number], Size III. [facility] [id number], 12/07/21 11:32:00 EDT,... Start Date: 12/07/21 Status: [...] 01/01/23 8:04:00 EDT, Route to Pharmacy Electronically, [facility]/pharmacy #[id number], Partial fill upon patient request if the prescription is for a schedule II opioid drug.... Start Date: 01/01/23 Status: Ordered lisinopril 5 mg oral tablet 5 mg, 1, tablet, By Mouth, Daily, # 90 tablet, Refills 3, Tot. Refills 3, Maintenance, 02/24/22 15:53:00 EDT, Route to Pharmacy Electronically, [facility]/pharmacy #[id number], Partial fill upon patient request if the prescription is for a schedule II opioid drug.... Start Date: 02/24/22 Status: Ordered Mapap 500 mg oral capsule See Instructions, TAKE 2 CAPSULES BY MOUTH 4 TIMES A DAY NEEDED FOR PAIN, # 480 capsule, 3 Refills, Maintenance, 06/04/22 16:03:00 EDT, [id number], 155, cm, 05/25/22 13:44:00 EDT, Height, 93.4, kg, 11/01/21 16:52:00 EDT, Dry Weight Start Date: 06/04/22 Status: Ordered Power [place] Lift with [place] split-leg sling Power [place] Lift with [place] split-leg sling, See Instructions, # 1 each, [...] 03/22/23 17:39:00 EDT, 10/05/22 17:39:00 EST, Tablet, [facility]/pharmacy #[id number], Partial fill upon pa... Start Date: 10/05/22 Stop Date: 03/22/23 Status: Ordered Provigil 200 mg oral tablet 1 tablet = 200 mg, By Mouth, 2 times a day, takes in am and lunchtime brand name only - dispense aswritten, # 56 tablet, 5 Refills, Maintenance, 12/11/22 17:34:00 EDT, Tablet, [facility]/pharmacy #[id number], Partial fill upon patient request if [...] capsule, 1 Refills, 12/11/22 15:16:00 EDT, [facility]/pharmacy #[id number], 155, cm, 10/10/22 13:40:00 EST, Height, 93.4, kg, 11/01/21 16:52:00 EDT, Dry Weight Start Date: 12/11/22 Status: Ordered Xarelto 20 mg oral tablet 1 tablet = 20 mg, By Mouth, Daily at supper, # 90 tablet, 3 Refills, Maintenance, 02/01/22 12:42:00EDT, Tablet, [facility], Partial fill upon patient request [...] Role: Primary Care Nurse Address: Address: [address] [place] [address] [address] [place] [address]- Name: Emma Mendoza RN Position: [facility] Nurse Member Role: Primary Care Nurse Name: Juan Manuel LIM, Kristen Acosta Position: [facility] Physician - Primary Care Member Role: PCP Address: Address: [address] [place] [id number]- [place] Name: Jade Medina Position: [facility] RN Member Role: Primary Care Nurse Name: Komal Goodrich Position: [facility] Outreach Member Role: Lifetime Consulting Physician Name: Godfrey Cano Position: [facility] RN Member Role: Primary Care Nurse Name: Anette Miranda RN Position: [facility] Onco RN Member Role: Primary Care Nurse Care Team Related Persons Name: DIOMEDES WARNER Address: home [address] [place] [address] Name: MOO HOWELL Address: home [address] [place] [address] Name: MARLON GENTILE
--- OUTSIDE RECORDS SUMMARY | 2024-03-17 13:39 | XMS_ITS | Continuity of Care Document ---
Author Organization [facility] Address [address] [place] [address]- Care Team Providers Care Cashiers Bussers Food Runners Name Role Phone Juan Manuel LIM, Kristen Acosta Primary Care Physic juan alberto Encounter [facility] Date(s): 01/11/22 - 01/18/22 [facility] [address] [place] [address]- Attending Physician: Juan Manuel LIM, Kristen Acosta Allergies, Adverse Reactions, Alerts Substance Reaction Severity Status morphine hives, SOB Active Wellbutrin rash Active Reglan Active contrast media (iodine-based) itching throughout body Active Other Environmental Allergy mercury-fillings Active penicillins hive Active cannabis (Schedule I substance) itching/vomiting Active Immunizations Given and Recorded Vaccine Date Status Refusal Reason SARS-CoV-2 mRNA (mzqjbnt-nylt-gxzxg) vax 10/04/21 Recorded influenza virus vaccine, inactivated 04/10/21 Arnoldo rded influenza virus vaccine, inactivated 04/03/20 Arnoldo rded influenza virus vaccine, inactivated 05/13/19 Arnoldo rded influenza virus vaccine, inactivated 04/16/18 Arnoldo rded influenza virus vaccine, inactivated 05/07/17 Arnoldo rded influenza virus vaccine, inactivated 04/19/16 Aronldo rded influenza virus vaccine, inactivated 04/12/15 Arnoldo [...] 04/19/22 17:46:00 EDT, 08/22/21 17:46:00 EST, Capsule, [facility]/pharmacy #[id number], Partial fill upon patient request if the prescription is for a schedul... Start Date: 08/22/21 Stop Date: 04/19/22 Status: Ordered ascorbic acid 1000 mg oral tablet 1 tablet = 1,000 mg, By Mouth, 2 times a day, # 90 tablet, 1 Refills, Maintenance, 08/11/21 17:03:00 EST, Tablet, [facility]/pharmacy #[id number], Partial fill upon patient request if the prescription is for a schedule II opioid drug., 153, cm, 06/27/21 7:47:00 ES... Start Date: 08/11/21 Status: Ordered baclofen 20 mg oral tablet 20 mg, 1, tablet, By Mouth, 3 times a day, # 360 tablet, Refills 1, Tot. Refills 1, Maintenance, 08/02/21 14:09:00 EST, Route to Pharmacy Electronically, [facility], Partial fill upon patient request if the prescription is for a... Start Date: 08/02/21 Status: Ordered bifidobacterium-lactobacillus oral tablet 2 tablet, By Mouth, 2 times a day, [facility] Brand please (Senior Wellness), # 360 tablet, 3 Refills, Maintenance, 08/11/21 17:02:00 EST, Tablet, [facility]/pharmacy #[id number], Partial fill upon patient request if the prescription is for a schedule II opioid drug., 2... Start Date: 08/11/21 Stop Date: 08/06/22 Status: Ordered calcium carbonate 600 mg oral tablet 1 tablet = 600 mg, By Mouth, 2 times a day, # 180 tablet, 3 Refills, Maintenance, 01/11/22 14:02:00EDT, Tablet, [facility], Partial fill upon patient request if the prescription is for a schedule II opioid drug., 155, cm, 01/02... Start Date: 01/11/22 Stop Date: 01/06/23 Status: Ordered Centrum Silver Ultra Women's oral tablet 1 tablet, By Mouth, Daily, 0 Refills, Maintenance, 07/09/18 8:43:55 EST Start Date: 07/09/18 Status: Ordered [facility] SENIOR PROBIOTIC CAPSULE TAKE 2 CAPSULES BY MOUTH TWICE A DAY Start Date: 11/01/21 Status: Ordered diclofenac 1% topical gel 1 application, Topically, 4 times a day, # 100 Gm, 3 Refills, Maintenance, 01/11/22 14:07:00 EDT, Gel, [facility], Partial fill upon [...] STILL NEEDED, # 450 mL, 0 Refills, [id number], 153, cm, 08/30/21 16:43:00 EST, Height Start [...] 01/11/22 13:45:00 EDT, [facility] Start Date: 01/11/22 Status: Ordered [...] Tot. Refills 2, Maintenance, 20-30mmghg FF Petite (short),Xczrp-beb-otwn, soft knee, black silicone Stock code [id number] Part #[id number], Size III. [facility] [id number], 12/07/21 11:32:00 EDT,... Start Date: 12/07/21 Status: [...] 01/11/22 13:42:00 EDT, Route to Pharmacy Electronically, [facility], Partial fill upon patient request if the prescription is for a schedule... Start Date: 01/11/22 Status: Ordered Power [place] Lift with [place] split-leg sling Power [place] Lift with [place] split-leg sling, See Instructions, # 1 each, [...] 1 Refills, Maintenance, 12/09/21 1:28:00 EDT, Tablet, [facility]/pharmacy #[id number], Partial fill upon patient request if the prescription... Start Date: 12/09/21 Stop Date: 02/03/22 Status: Ordered Turmeric = 750 mg, By Mouth, 2 times a day, 0 Refills, Maintenance, 07/09/18 8:47:35 EST Start Date: 07/09/18 Status: Ordered Vitamin D3 2000 intl units oral capsule 1 capsule, By Mouth, Daily, # 90 capsule, 1 Refills, 08/11/21 17:04:00 EST, [facility]/pharmacy #[id number], 153, cm, 06/27/21 7:47:00 EST, Height Start Date: 08/11/21 Status: Ordered Xarelto 20 mg oral tablet 1 tablet = 20 mg, By Mouth, Daily at supper, # 30 tablet, 0 Refills, Maintenance, 01/16/22 13:27:00EDT, Tablet, [facility], Partial fill [...]
--- OUTSIDE RECORDS SUMMARY | 2024-03-17 13:39 | XMS_ITS | Continuity of Care Document ---
Author Organization [facility] Address Unknown Care Team Providers Care Waiter/Waitress Informal Name Role Phone Juan Manuel LIM, Kristen December Karla Primary Care Physic juan alberto Encounter [facility] Date(s): 01/13/22 - 02/16/22 [facility] Attending Physician: Moody Maldonado MD Admitting Physician: Moody Maldonado MD Allergies, Adverse Reactions, Alerts Substance Reaction Severity Status morphine hives, SOB Active penicillins hive Active Wellbutrin rash Active Reglan Active cannabis (Schedule I substance) itching/vomiting Active Other Environmental Allergy mercury-fillings Active contrast media (iodine-based) itching throughout body Active Immunizations Given and Recorded Vaccine Date Status Refusal Reason SARS-CoV-2 mRNA (fyskbhz-zyby-ajqjw) vax 10/04/21 Recorded influenza virus vaccine, inactivated [...] 04/19/22 17:46:00 EDT, 08/22/21 17:46:00 EST, Capsule, [facility]/pharmacy #[id number], Partial fill upon patient request if the prescription is for a schedul... Start Date: 08/22/21 Stop Date: 04/19/22 Status: Ordered ascorbic acid 1000 mg oral tablet 1 tablet = 1,000 mg, By Mouth, 2 times a day, # 90 tablet, 1 Refills, Maintenance, 08/11/21 17:03:00 EST, Tablet, [facility]/pharmacy #[id number], Partial fill upon patient request if the prescription is for a schedule II opioid drug., 153, cm, 06/27/21 7:47:00 ES... Start Date: 08/11/21 Status: Ordered baclofen 20 mg oral tablet 20 mg, 1, tablet, By Mouth, 3 times a day, # 360 tablet, Refills 1, Tot. Refills 1, Maintenance, 08/02/21 14:09:00 EST, Route to Pharmacy Electronically, [facility], Partial fill upon patient request if the prescription is for a... Start Date: 08/02/21 Status: Ordered bifidobacterium-lactobacillus oral tablet 2 tablet, By Mouth, 2 times a day, [facility] Brand please (Senior Wellness), # 360 tablet, 3 Refills, Maintenance, 08/11/21 17:02:00 EST, Tablet, [facility]/pharmacy #[id number], Partial [...] 8:43:55 EST Start Date: 07/09/18 Status: Ordered [facility] SENIOR PROBIOTIC CAPSULE TAKE [...] 450 mL, 0 Refills, 02/08/22 18:16:00 EDT, [facility]/pharmacy #[id number], 155, cm, 01/02/22 8:26:00 EDT, [...] EDT, [facility] Start Date: 01/11/22 Status: Ordered gabapentin [...] Tot. Refills 2, Maintenance, 20-30mmghg FF Petite (short),Zzywl-yoe-xpsb, soft knee, black silicone Stock code [id number] Part #[id number], Size III. [facility] [id number], 12/07/21 11:32:00 EDT,... Start Date: 12/07/21 Status: [...] 01/11/22 Status: Ordered Power [place] Lift with [place] split-leg sling Power [place] Lift with [place] split-leg sling, See Instructions, # 1 each, [...] 1 Refills, Maintenance, 12/09/21 1:28:00 EDT, Tablet, [facility]/pharmacy #[id number], [...] 90 capsule, 1 Refills, 08/11/21 17:04:00 EST, [facility]/pharmacy #[id number], 153, cm, 06/27/21 7:47:00 EST, Height Start Date: 08/11/21 Status: Ordered Xarelto 20 mg oral tablet 1 tablet = 20 mg, By Mouth, Daily at supper, # 90 tablet, 3 Refills, Maintenance, 02/01/22 12:42:00EDT, Tablet, [facility] [facility] Partial fill upon patient request if [...]
--- OUTSIDE RECORDS SUMMARY | 2024-03-17 13:39 | XMS_ITS | Continuity of Care Document ---
Author Organization [facility] Address [address] [place] [address]- Care Team Providers Care Home Health Provider Name Role Phone Juan Manuel LIM, Kristen Acosta Primary Care Physic juan alberto [facility] 10[facility]22 [facility] [address] [place] [address]- Allergies, Adverse Reactions, Alerts Substance Reaction Severity Status morphine hives, SOB Active penicillins hive Active Wellbutrin rash Active Reglan Active cannabis (Schedule I substance) itching/vomiting Active Other Environmental Allergy mercury-fillings Active contrast media (iodine-based) itching throughout body Active Immunizations Given and Recorded Vaccine Date Status Refusal Reason pneumococcal 20-valent conjugate vaccine 05/30/22 Recorded [id number] 12y+ bivalent booster vax 05/12/22 Recorded influenza [...] vaccine, inactivated 04/26/09 Arnoldo rded SARS-CoV-2 mRNA (fmdrxeb-qcbr-txvbj) vax 03/10/22 Recorded SARS-CoV-2 mRNA (wadxsii-ipig-zqxwr) vax 10/04/21 Recorded SARS-CoV-2 (COVID-19) mRNA BNT-162b2 [...] tablet, 0 Refills, Maintenance, 10/05/22 9:35:00EST, Tablet, [facility]/pharmacy #[id number], Partial fill upon patient request if the prescription is for a schedule II opioid drug., 155, cm, 09/26/22 14:02:00 ES... Start Date: 10/05/22 Status: Ordered baclofen 20 mg oral tablet 20 mg, 1, tablet, By Mouth, 3 times a day, # 270 tablet, Refills 2, Tot. Refills 2, Maintenance, 12/09/22 12:44:00 EDT, Route to Pharmacy Electronically, [facility], Partial fill upon patient request if the prescription is for a... Start Date: 12/09/22 Stop Date: 09/05/23 Status: Ordered baclofen 20 mg oral tablet 20 mg, 1, tablet, By Mouth, 3 times a day, for 90 days, # 270 tablet, Refills 2, Tot. Refills 2, Hard Stop 12/09/22 12:44:00 EDT, 03/14/22 12:44:00 EDT, [id number] Partial fill upon patient request if the pre... Start Date: 03/14/22 Stop Date: 12/09/22 Status: Ordered bifidobacterium-lactobacillus oral tablet 2 tablet, By Mouth, 2 times a day, [facility] Brand please (Senior Wellness), # 360 tablet, 3 Refills, Maintenance, 08/11/21 17:02:00 EST, Tablet, [facility]/pharmacy #[id number], Partial fill upon patient request if the prescription is for a schedule II opioid drug., 2... Start Date: 08/11/21 Stop Date: 08/06/22 Status: Ordered calcium carbonate 600 mg oral tablet 1 tablet = 600 mg, By Mouth, 2 times a day, # 180 tablet, 2 Refills, Maintenance, 01/06/23 14:02:00EDT, Tablet, [facility]/pharmacy #[id number], Partial fill upon [...] 8:43:55 EST Start Date: 07/09/18 Status: Ordered [facility] SENIOR PROBIOTIC CAPSULE TAKE 2 CAPSULES BY MOUTH TWICE A DAY Start Date: 11/01/21 Status: Ordered [facility] Senior Probiotic Capsule [facility] Senior Probiotic Capsule, See [...] 450 mL, 5 Refills, 03/02/22 8:08:00 EDT, [facility]/pharmacy #[id number], 155, cm, 02/23/22 [...] Refills, Soft Stop, 05/26/22 8:59:00 EDT, Tablet, [facility]/pharmacy #[id number], Partial fill upon [...] EDT, [facility] Start Date: 01/11/22 Status: Ordered gabapentin 300 mg oral capsule 300 mg, 1, capsule, By Mouth, 3 times a day, for 90 days, # 270 capsule, Refills 2, Tot. Refills 2,Hard Stop 02/15/23 7:44:00 EDT, 05/21/22 7:44:00 EDT, Route to Pharmacy Electronically, [facility], Partial fill upon patient re... [...] Tot. Refills 2, Maintenance, 20-30mmghg FF Petite (short),Dtzlv-nrq-zdvx, soft knee, black silicone Stock code [id number] Part #[id number], Size III. [facility] [id number], 12/07/21 11:32:00 EDT,... Start Date: 12/07/21 Status: Ordered levothyroxine 0.088 mg oral tablet 1 tablet = 88 mcg, By Mouth, Daily, # 90 tablet, 1 Refills, Maintenance, 09/08/22 14:26:00 EST, Tablet, [facility], Partial fill upon patient request if the prescription is fora schedule II opioid drug., 155, cm, 07/12/22 14:10... Start Date: 09/08/22 Status: Ordered lisinopril 5 mg oral tablet 5 mg, 1, tablet, By Mouth, Daily, # 90 tablet, Refills 3, Tot. Refills 3, Maintenance, 02/24/22 15:53:00 EDT, Route to Pharmacy Electronically, [facility]/pharmacy #[id number], Partial fill upon patient request if the prescription is for a schedule II opioid drug.... Start Date: 02/24/22 Status: Ordered lisinopril 5 mg oral tablet See Instructions, TAKE 1 TABLET DAILY, # 90 tablet, Refills 1, Maintenance, 09/24/22 19:24:00 EST, Instructions Replace Required Details, Route to Pharmacy Electronically, [facility], 155, cm, 07/12/22 14:10:00 EST, Height, 93.4, k... Start Date: 09/24/22 Status: Ordered Mapap 500 mg oral capsule See Instructions, TAKE 2 CAPSULES BY MOUTH 4 TIMES A DAY NEEDED FOR PAIN, # 480 capsule, 3 Refills, Maintenance, 06/04/22 16:03:00 EDT, [id number], 155, cm, 05/25/22 13:44:00 EDT, Height, 93.4, kg, 11/01/21 16:52:00 EDT, Dry Weight Start Date: 06/04/22 Status: Ordered Power Virginia Lift with [place] split-leg sling Power Virginia Lift with [place] split-leg sling, See Instructions, # 1 each, [...] 11/01/22 17:46:00 EDT, 07/12/22 17:46:00 EST, Tablet, [facility]/pharmacy #[id number], Partial fill upon pa... Start Date: 07/12/22 Stop Date: 11/01/22 Status: Ordered Provigil 200 mg oral tablet 1 tablet = 200 mg, By Mouth, 2 times a day, takes in am and lunchtime brand name only - dispense aswritten, # 56 tablet, 5 Refills, Maintenance, 10/05/22 17:39:00 EST, Tablet, [facility]/pharmacy #[id number], Partial fill upon [...] 10/25/22 18:25:00 EDT, 07/05/22 18:25:00 EST, Tablet, [facility], Parti... Start Date: 07/05/22 Stop [...] 90 capsule, 2 Refills, 02/28/22 8:13:00 EDT, [facility]/pharmacy #[id number], 155,cm, 02/23/22 8:04:00 EDT, Height, 93.4, kg, 11/01/21 16:52:00 EDT, Dry Weight Start Date: 02/28/22 Status: Ordered Xarelto 20 mg oral tablet 1 tablet = 20 mg, By Mouth, Daily at supper, # 90 tablet, 3 Refills, Maintenance, 02/01/22 12:42:00EDT, Tablet, [facility], Partial fill upon patient [...] Member Role: Primary Care Nurse Address: Address: [address] [place] [address] [address] [facility] [place] [address]- [place] Name: Emma Mendoza RN Position: [facility] RN Member Role: Primary Care Nurse Name: Juan Manuel LIM, Kristen Acosta Position: [facility] Primary Care Physician Member Role: PCP Address: Address: [address] [place] [address]- Name: Jade Medina Position: [facility] RN Member Role: Primary Care Nurse Name: Kmoal Goodrich Position: [facility] Outreach Member Role: Lifetime Consulting Physician Name: Godfrey Cano Position: [facility] RN Member Role: Primary Care Nurse Name: Anette Miranda RN Position: [facility] Onco RN Member Role: Primary Care Nurse Care Team Related Persons Name: DIOMEDES WARNER Address: home [address] [place] [address] Name: MOO HOWELL Address: home [address] [place] [address] Name: MARLON GENTILE
--- OUTSIDE RECORDS SUMMARY | 2024-03-17 13:39 | XMS_ITS | Continuity of Care Document ---
Author Organization [facility] Address [address] [place] [address]- Care Team Providers Care Oven Heater Name Role Phone Juan Manuel LIM, Kristen Acosta Primary Care Physic juan alberto [facility]): 04[facility]23 - 05/10/23 [facility] [address] [place] [address]- Allergies, Adverse Reactions, Alerts Substance Reaction Severity Status morphine hives, SOB Active Wellbutrin rash Active Reglan Active Other Environmental Allergy mercury-fillings Active contrast media (iodine-based) itching throughout body Active penicillins hive Active cannabis (Schedule I substance) itching/vomiting Active Immunizations Given and Recorded Vaccine Date Status Refusal Reason pneumococcal 20-valent conjugate vaccine 05/30/22 Recorded [id number]-[id number] 12y+ bivalent booster vax 05/12/22 Recorded influenza virus vaccine, inactivated 03/29/22 Aronldo rded influenza virus vaccine, inactivated 04/10/21 Arnoldo [...] vaccine, inactivated 04/26/09 Arnoldo rded SARS-CoV-2 mRNA (dbwcrjo-majo-wrfwy) vax 03/10/22 Recorded SARS-CoV-2 mRNA (dadztsm-fblo-woyni) vax 10/04/21 Recorded SARS-CoV-2 (COVID-19) mRNA BNT-162b2 [...] 1 Refills, Maintenance, 12/11/22 17:34:00 EDT, Tablet, [facility]/pharmacy #[id number], Partial fill upon patient [...] tablet, By Mouth, 2 times a day, [facility] Brand please (Senior Wellness), # 360 tablet, 3 Refills, Maintenance, 08/11/21 17:02:00 EST, Tablet, [facility]/pharmacy #[id number], Partial fill upon patient request if the prescription is for a schedule II opioid drug., 2... Start Date: 08/11/21 Stop Date: 08/06/22 Status: Ordered calcium carbonate 600 mg oral tablet 1 tablet = 600 mg, By Mouth, 2 times a day, # 180 tablet, 2 Refills, Maintenance, 01/06/23 14:02:00EDT, Tablet, [facility]/pharmacy #[id number], Partial fill upon patient request if the prescription is for a schedule II opioid drug., 155, cm, 02/23/22 8:04:00 EDT... Start Date: 01/06/23 Stop Date: 10/03/23 Status: Ordered Centrum Silver Ultra Women's oral tablet 1 tablet, By Mouth, Daily, 0 Refills, Maintenance, 07/09/18 8:43:55 EST Start Date: 07/09/18 Status: Ordered [facility] SENIOR PROBIOTIC CAPSULE TAKE 2 CAPSULES BY MOUTH TWICE A DAY Start Date: 11/01/21 Status: Ordered [facility] Senior Probiotic Capsule [facility] Senior Probiotic Capsule, See Instructions, [...] 450 mL, 5 Refills, 03/02/22 8:08:00 EDT, [facility]/pharmacy #[id number], 155, cm, 02/23/22 8:04:00 [...] Refills, Soft Stop, 03/27/23 18:43:00 EDT, Tablet, [facility]/pharmacy #[id number], Partial fill upon patient request if the prescription is for a schedule II opioid... Start Date: 03/27/23 Status: Ordered fluconazole 150 mg oral tablet 1 tablet = 150 mg, By Mouth, Every week, # 4 tablet, 1 Refills, Soft Stop, 05/26/22 8:59:00 EDT, Tablet, [facility]/pharmacy #[id number], Partial fill upon patient [...] 2, Maintenance, Juzo Compression Hose 2 pairs aqtkr-ouh-ljsl Soft Knee FF Petite 20-30 mmHg Silicone, Black Stock Code [id number] I I I Part #[id number] Size I I I SKU... Start Date: [...] capsule, 0 Refills, Maintenance, 03/12/23 9:16:00 EDT, [facility]/pharmacy #[id number], 155, cm, 10/10/22 13:40:00 EST, Height, 93.4, kg, 11/01/21 16:52:00 EDT, Dry Weight Start Date: 03/12/23 Status: Ordered Power Virginia Lift with [place] split-leg sling Power Virginia Lift with [place] split-leg sling, See Instructions, # 1 each, [...] 5 Refills, Maintenance, 12/11/22 17:34:00 EDT, Tablet, [facility]/pharmacy #[id number], Partial fill upon patient [...] Team Personnel Name: Juliann Rich RN Position: [facility] RN Member Role: Primary Care Nurse Name: Elsa Allen NP Position: Reference Physician Member Role: Primary Care Nurse Address: Address: [address] [place] [address] [address] [place] [address]- Name: Emma Mendoza RN Position: [facility] AMB Nurse Member Role: Primary Care Nurse Name: Juan Manuel LIM, Kristen Acosta Position: [facility] Physician - Primary Care Member Role: PCP Address: Address: [address] [place] [id number]- Name: Komal Goodrich Position: [facility] Outreach Member Role: Lifetime Consulting Physician Name: Godfrey Cano Position: [facility] RN Member Role: Primary Care Nurse Name: Anette Miranda RN Position: [facility] Onco RN Member Role: Primary Care Nurse Care Team Related Persons Name: DIOMEDES WARNER Address: home [address] [place] [address] Name: MOO HOWELL Address: [address] [place] [address] Name: MARLON GENTILE
--- OUTSIDE RECORDS SUMMARY | 2024-03-17 13:39 | XMS_ITS | Continuity of Care Document ---
Author Organization [facility] Address Unknown Care Team Providers Care Adjunct Instructor Of Women'S Studies Name Role Phone Juan Manuel LIM, Kristen December Karla Primary Care Physic juan alberto [facility] Date[facility]s): 08/15/21 - 09/14/21 [facility] Allergies, Adverse Reactions, Alerts Substance Reaction [...] 04/19/22 17:46:00 EDT, 08/22/21 17:46:00 EST, Capsule, [facility]/pharmacy #[id number], Partial fill upon patient request if the prescription is for a schedul... Start Date: 08/22/21 Stop Date: 04/19/22 Status: Ordered ascorbic acid 1000 mg oral tablet 1 tablet = 1,000 mg, By Mouth, 2 times a day, # 90 tablet, 1 Refills, Maintenance, 08/11/21 17:03:00 EST, Tablet, [facility]/pharmacy #[id number], Partial fill upon patient request if the prescription is for a schedule II opioid drug., 153, cm, 06/27/21 7:47:00 ES... Start Date: 08/11/21 Status: Ordered baclofen 20 mg oral tablet 20 mg, 1, tablet, By Mouth, 4 times a day, # 360 tablet, Refills 1, Tot. Refills 1, Maintenance, 08/02/21 14:09:00 EST, Route to Pharmacy Electronically, [facility], Partial fill upon patient request if the prescription is for a... Start Date: 08/02/21 Status: Ordered bifidobacterium-lactobacillus oral tablet 2 tablet, By Mouth, 2 times a day, [facility] Brand please ([facility] Wellness), # [...] 01/09/22 14:17:00 EDT, 07/13/21 14:17:00 EST, Tablet, [facility], Partial fill upon patient request if the prescription is for a schedul... Start Date: 07/13/21 Stop Date: 01/09/22 Status: Ordered calcium carbonate 600 mg oral tablet 1 tablet = 600 mg, By Mouth, 2 times a day, # 180 tablet, 1 Refills, Maintenance, 01/09/22 14:17:00EDT, Tablet, [facility]/pharmacy #[id number], Partial [...] Refills, SoftStop, 09/01/21 9:49:00 EST, REC Powder, [facility]/pharmacy #[id number], Partial fill [...] 07/13/21 Status: Ordered Power Virginia Lift with [place] split-leg sling Power Virginia Lift with [place] split-leg sling, See Instructions, # 1 each, [...] 1 Refills, Maintenance, 07/14/21 17:19:00 EST, Tablet, [facility], Partial fill upon patient request if t... Start Date: 07/14/21 Stop Date: 09/08/21 Status: Ordered Turmeric = 750 mg, By Mouth, 2 times a day, 0 Refills, Maintenance, 07/09/18 8:47:35 EST Start Date: 07/09/18 Status: Ordered Vitamin D3 2000 intl units oral capsule 1 capsule, By Mouth, Daily, # 90 capsule, 1 Refills, 08/11/21 17:04:00 EST, [facility]/pharmacy #[id number], 153, cm, 06/27/21 7:47:00 [...]
--- OUTSIDE RECORDS SUMMARY | 2024-03-17 13:39 | XMS_ITS | Continuity of Care Document ---
Author Organization [facility] Address [address] [place] [address]- Care Team Providers Care Independent Jeweler Name Role Phone Jason WALL SCRAPER, Efrem Pickering Primary Care Physician [id number] Date(s): 04/29/20 - 05/29/20 [facility] [address] [address]- [facility] Allergies, Adverse Reactions, Alerts Substance Reaction Severity [...]
--- OUTSIDE RECORDS SUMMARY | 2024-03-17 13:39 | XMS_ITS | Continuity of Care Document ---
Author Organization [facility] Address [address] [place] [address]- Care Team Providers Care Shake Cutter Name Role Phone Juan Manuel LIM, Kristen Acosta Primary Care Physic juan alberto Encounter [facility] Date(s): 01/23/22 - 02/22/22 [facility] [address] [place] [address]- Allergies, Adverse Reactions, Alerts Substance Reaction Severity Status morphine hives, SOB Active penicillins hive Active Wellbutrin rash Active Reglan Active cannabis (Schedule I substance) itching/vomiting Active Other Environmental Allergy mercury-fillings Active contrast media (iodine-based) itching throughout body Active Immunizations Given and Recorded Vaccine Date Status Refusal Reason SARS-CoV-2 mRNA (vuuyiqz-vxjj-wsixa) vax 10/04/21 Recorded influenza virus vaccine, inactivated [...] 04/19/22 17:46:00 EDT, 08/22/21 17:46:00 EST, Capsule, [facility]/pharmacy #[id number], Partial fill upon patient request if the prescription is for a schedul... Start Date: 08/22/21 Stop Date: 04/19/22 Status: Ordered ascorbic acid 1000 mg oral tablet 1 tablet = 1,000 mg, By Mouth, 2 times a day, # 90 tablet, 1 Refills, Maintenance, 08/11/21 17:03:00 EST, Tablet, [facility]/pharmacy #[id number], Partial fill upon patient request if the prescription is for a schedule II opioid drug., 153, cm, 06/27/21 7:47:00 ES... Start Date: 08/11/21 Status: Ordered baclofen 20 mg oral tablet 20 mg, 1, tablet, By Mouth, 3 times a day, # 360 tablet, Refills 1, Tot. Refills 1, Maintenance, 08/02/21 14:09:00 EST, Route to Pharmacy Electronically, [facility], Partial fill upon patient request if the prescription is for a... Start Date: 08/02/21 Status: Ordered bifidobacterium-lactobacillus oral tablet 2 tablet, By Mouth, 2 times a day, [facility] Brand please (Senior Wellness), # 360 tablet, 3 Refills, Maintenance, 08/11/21 17:02:00 EST, Tablet, [facility]/pharmacy #[id number], Partial fill upon patient request if the prescription is for a schedule II opioid drug., 2... Start Date: 08/11/21 Stop Date: 08/06/22 Status: Ordered calcium carbonate 600 mg oral tablet 1 tablet = 600 mg, By Mouth, 2 times a day, # 180 tablet, 3 Refills, Maintenance, 01/11/22 14:02:00EDT, Tablet, [facility], Partial fill upon patient request if the prescription is for a schedule II opioid drug., 155, cm, 01/02... Start Date: 01/11/22 Stop Date: 01/06/23 Status: Ordered Centrum Silver Ultra Women's oral tablet 1 tablet, By Mouth, Daily, 0 Refills, Maintenance, 07/09/18 8:43:55 EST Start Date: 07/09/18 Status: Ordered [facility] SENIOR PROBIOTIC CAPSULE TAKE 2 CAPSULES BY MOUTH TWICE A DAY Start Date: 11/01/21 Status: Ordered diclofenac 1% topical gel 1 application, Topically, 4 times a day, # 100 Gm, 3 Refills, Maintenance, 01/11/22 14:07:00 EDT, Gel, [facility], Partial fill [...] 450 mL, 0 Refills, 02/08/22 18:16:00 EDT, [facility]/pharmacy #[id number], 155, cm, 01/02/22 8:26:00 EDT, [...] 13:45:00 EDT, Route to Pharmacy Electronically, [facility]... Start Date: 01/11/22 Status: Ordered gabapentin 300 mg oral capsule 300 mg, 1, capsule, By Mouth, 3 times a day, # 90 capsule, Refills 2, Tot. Refills 2, Maintenance, 02/20/22 7:44:00 EDT, Route to Pharmacy Electronically, [facility]/pharmacy #[id number], Partial fill upon patient request if the prescription is for a schedule II o... Start Date: 02/20/22 Stop Date: 05/21/22 Status: Ordered Juzo Compression Hose Juzo Compression Hose, See Instructions, # 2 each, Refills 2, Tot. Refills 2, Maintenance, 20-30mmghg FF Petite (short),Pwrrw-uax-zqft, soft knee, black silicone Stock code [id number] Part #[id number], Size III. [facility] [id number], 12/07/21 11:32:00 EDT,... Start Date: 12/07/21 Status: Ordered levothyroxine 0.088 mg oral tablet 1 tablet = 88 mcg, By Mouth, Daily, # 90 tablet, 1 Refills, Maintenance, 07/13/21 14:09:00 EST, Tablet, [facility], Partial fill upon patient request if the prescription is fora schedule II opioid drug., 153, cm, 06/27/21 7:47:... Start Date: 07/13/21 Status: Ordered lisinopril 5 mg oral tablet 5 mg, 1, tablet, By Mouth, Daily, # 90 tablet, Refills 3, Tot. Refills 3, Maintenance, 01/11/22 13:42:00 EDT, Route to Pharmacy Electronically, [facility], Partial fill upon patient request if the prescription is for a schedule... Start Date: 01/11/22 Status: Ordered Power [place] Lift with [place] split-leg sling Power [place] Lift with [place] split-leg sling, See Instructions, # 1 each, [...] 1 Refills, Maintenance, 12/09/21 1:28:00 EDT, Tablet, [facility]/pharmacy #[id number], Partial fill upon patient [...] 90 capsule, 1 Refills, 08/11/21 17:04:00 EST, [facility]/pharmacy #[id number], 153, cm, 06/27/21 7:47:00 EST, Height Start Date: 08/11/21 Status: Ordered Xarelto 20 mg oral tablet 1 tablet = 20 mg, By Mouth, Daily at supper, # 90 tablet, 3 Refills, Maintenance, 02/01/22 12:42:00EDT, Tablet, [facility], Partial fill upon patient request [...]
--- OUTSIDE RECORDS SUMMARY | 2024-03-17 13:39 | XMS_ITS | Continuity of Care Document ---
Author Organization [facility] Address [address] [place] [address]- Care Team Providers Care Trial Court Justice Name Role Phone Juan Manuel LIM, Kristen Acosta Primary Care Physic juan alberto [facility]): [facility] - [facility]21 [facility] [address] [place] [address]- Allergies, Adverse Reactions, Alerts Substance Reaction Severity [...] 0 Refills, Maintenance, 05/18/21 7:27:00 EDT, Tablet, [facility]/pharmacy #[id number], Partial fill upon patient [...] 0 Refills, Maintenance, 04/25/21 14:08:00 EDT, Tablet, [facility]/pharmacy #[id number], Partial fill upon patient [...] 02/18/21 10:23:00 EDT, Route to Pharmacy Electronically, [facility]/pharmacy #[id number], Partial fill upon patient request if the p... Start Date: 02/18/21 Stop Date: 03/20/21 Status: Ordered Copaxone 20 mg/mL subcutaneous solution = 20 mg, Subcutaneous Injection, Daily, 0 Refills, Maintenance, 07/09/18 9:29:49 EST Start Date: 07/09/18 Status: Ordered cranberry oral capsule 0 Refills, Maintenance, 03/25/19 15:47:34 EDT Start Date: 03/25/19 Status: Ordered electric adiel lift split leg [...] each, 0 Refills, Maintenance, 05/17/21 14:42:00 EDT, [facility]/pharmacy #[id number], Partial fill upon patient [...] mL, 0 Refills, Maintenance, 02/18/21 10:22:00 EDT,Liquid, [facility]/pharmacy #[id number], Partial fill upon patient request if the prescription is for a scheduleII opioid drug. Ok to dispense similar quantity if... Start Date: 02/18/21 Stop Date: 03/20/21 Status: Ordered levothyroxine 0.088 mg oral tablet 1 tablet = 88 mcg, By Mouth, Daily, # 90 tablet, 1 Refills, Maintenance, 04/05/21 13:40:00 EDT, Tablet, [facility], Partial fill upon patient request if the prescription is fora schedule II opioid drug., 153, cm, 04/04/21 9:04:... Start Date: 04/05/21 Status: Ordered lisinopril 5 mg oral tablet 5 mg, 1, tablet, By Mouth, Daily, # 90 tablet, Refills 1, Tot. Refills 1, Maintenance, 04/05/21 13:40:00 EDT, [facility] tablet, 1 Refills, Maintenance, 04/05/21 13:35:00 EDT, [id number], Partial fill upon patient [...]
--- OUTSIDE RECORDS SUMMARY | 2024-03-17 13:39 | XMS_ITS | Continuity of Care Document ---
Author Organization [facility] Address [address] [place] [address]- Care Team Providers Care Communication And Outreach Manager Name Role Phone Juan Manuel LIM, Kristen Acosta Primary Care Physic juan alberto Encounter [facility] Date(s): 03/31/22 - 04/07/22 [facility] [address] [place] [address]- Encounter Diagnosis Neurogenic bladder(Discharge Diagnosis) - 04/02/22 Bilateral leg edema(Discharge Diagnosis) - 04/02/22 Constipation(Discharge Diagnosis) - 04/02/22 MS (multiple sclerosis)(Discharge Diagnosis) - 04/02/22 Hypothyroidism(Discharge Diagnosis) - 04/02/22 Attending Physician: Roxana Carias NP Referring Physician: Juan Manuel LIM, Kristen Acosta [...] vaccine, inactivated 04/26/09 Arnoldo rded SARS-CoV-2 mRNA (fcvonsd-ryyl-whjoh) vax 03/10/22 Recorded SARS-CoV-2 mRNA (phjcmrl-cayg-ktptc) vax 10/04/21 Recorded SARS-CoV-2 (COVID-19) mRNA BNT-162b2 [...] 12/09/22 12:44:00 EDT, [facility] to [facility], [facility] [...] EDT, [id number] fill upon patient request if the pre... Start Date: 03/14/22 Stop Date: 12/09/22 Status: Ordered bifidobacterium-lactobacillus oral tablet 2 tablet, By Mouth, 2 times a day, [facility] Brand please ([facility]), # 360 tablet, 3 Refills, Maintenance, 08/11/21 17:02:00 EST, Tablet, [facility]/pharmacy #[id number], Partial fill upon patient request if the prescription is for a schedule II opioid drug., 2... Start Date: 08/11/21 Stop Date: 08/06/22 Status: Ordered calcium carbonate 600 mg oral tablet 1 tablet = 600 mg, By Mouth, 2 times a day, # 180 tablet, 2 Refills, Maintenance, 01/06/23 14:02:00EDT, Tablet, [facility]/pharmacy [...] Date: 07/09/18 Status: Ordered [facility] SENIOR PROBIOTIC CAPSULE TAKE 2 CAPSULES BY MOUTH TWICE A DAY Start Date: 11/01/21 Status: Ordered diclofenac 1% topical gel 1 application, Topically, 4 times a day, Apply 4 gram QID prn to affected pain to dropped foot - not to exceed 16 grams/day/single joint of lower extremities, # 100 Gm, 3 Refills, Maintenance, 04/02/22 21:13:00 EDT, Gel, [facility]... Start Date: 04/02/22 Status: Ordered electric [place] [...] Refills, 03/02/22 8:08:00 EDT, [facility]/pharmacy #[id number], 155, cm, 02/23/22 8:04:00 EDT, [...] 01/11/22 13:45:00 EDT, [facility] Start Date: 01/11/22 Status: Ordered [...] EDT, [id number] Partial fill upon patient request if the pre... Start Date: 02/20/22 Stop Date: 05/21/22 Status: Ordered Juzo Compression Hose Juzo Compression Hose, See Instructions, # 2 each, Refills 2, Tot. Refills 2, Maintenance, 20-30mmghg FF Petite (short),Tcqen-lut-eysn, soft knee, black silicone Stock code [id number] Part #[id number], Size III. [facility] [id number], 12/07/21 11:32:00 EDT,... Start Date: 12/07/21 Status: Ordered levothyroxine 0.088 mg oral tablet 1 tablet = 88 mcg, By Mouth, Daily, # 90 tablet, 3 Refills, Maintenance, 03/31/22 13:45:00 EDT, Tablet, [facility], Partial fill upon patient request if the prescription is fora schedule II opioid drug., 155, cm, 03/14/22 11:11... Start Date: 03/31/22 Status: Ordered lisinopril 5 mg oral tablet 5 mg, 1, tablet, By Mouth, Daily, # 90 tablet, Refills 3, Tot. Refills 3, Maintenance, 02/24/22 15:53:00 EDT, Route to Pharmacy Electronically, [facility]/pharmacy #[id number], Partial fill upon patient request if the prescription is for a schedule II opioid drug.... Start Date: 02/24/22 Status: Ordered Potassium Chloride (Eqv-K-Tab) 20 mEq oral tablet, extended release 1 tablet = 20 mEq, By Mouth, Daily, for low potassium, # 10 tablet, 0 Refills, Maintenance, 03/02/22 19:14:00 EDT, [facility]/pharmacy #[id number], Partial fill upon patient request if the prescription is for a schedule II opioid drug., 155, cm, 02/23/22 8:04:00 E... Start Date: 03/02/22 Stop Date: 03/12/22 Status: Ordered Power [place] Lift with [place] split-leg sling Power [place] Lift with [place] split-leg sling, See Instructions, # 1 each, [...] Refills, Maintenance, 02/28/22 8:12:00 EDT, Tablet, [facility] capsule, 2 Refills, 02/28/22 8:13:00 EDT, [facility]/pharmacy #[id number], 155,cm, 02/23/22 8:04:00 EDT, Height, 93.4, kg, 11/01/21 16:52:00 EDT, Dry Weight Start Date: 02/28/22 Status: Ordered Xarelto 20 mg oral tablet 1 tablet = 20 mg, By Mouth, Daily at supper, # 90 tablet, 3 Refills, Maintenance, 02/01/22 12:42:00EDT, Tablet, [facility], Partial fill upon patient request [...] Service Informant Bilateral leg edema Discharge Diagnosis 04/02/22 Constipation Discharge Diagnosis 04/02/22 MS (multiple sclerosis) Discharge Diagnosis 04/02/22 Neurogenic bladder Discharge Diagnosis 04/02/22 Hypothyroidism Discharge Diagnosis 04/02/22 Social History Social History Type Response Smoking Status Never (less than 100 in lifetime) entered on: 10/31/21 Sex Care Team Personnel Name: Juan Manuel LIM, Kristen Acosta Address: [address] [place] [address]
--- OUTSIDE RECORDS SUMMARY | 2024-03-17 13:39 | XMS_ITS | Continuity of Care Document ---
Author Organization [facility] Address [address] [place] [address]- Care Team Providers Care Drilling Engineer Name Role Phone Juan Manuel LIM, Kristen Acosta Primary Care Physic juan alberto Encounter [facility] Date(s): 06/08/21 - 07/08/21 [facility] [address] [place] [address]- Allergies, Adverse Reactions, Alerts Substance Reaction Severity [...] Mouth, Daily, [facility] Brand please ([facility]), # 180 tablet, 3 Refills, Maintenance, 06/27/21 9:09:00 EST, Tablet, [facility]/pharmacy #[id number], Partial fill [...] 0 Refills, Maintenance, 04/25/21 14:08:00 EDT, Tablet, [facility]/pharmacy #[id number], Partial fill upon [...] 1 Refills, Maintenance, 06/21/21 15:50:00 EST, Tablet, [facility]/pharmacy #[id number], Partial fill [...] 0 Refills, Maintenance, 05/18/21 7:27:00 EDT, Tablet, [facility]/pharmacy #[id number], Partial fill upon patient request if the prescription... Start Date: 05/18/21 Status: Ordered Turmeric = 750 mg, By Mouth, 2 times a day, 0 Refills, Maintenance, 07/09/18 8:47:35 EST Start Date: 07/09/18 Status: Ordered Vitamin D3 2000 intl units oral capsule 1 capsule, By Mouth, Daily, # 90 capsule, 1 Refills, [id number], 153, cm, 04/25/21 13:34:00 EDT, Height Start [...]
--- OUTSIDE RECORDS SUMMARY | 2024-03-17 13:39 | XMS_ITS | Continuity of Care Document ---
Author Organization [facility] Address [address] [place] [address]- Care Team Providers Care Seat Coverer Name Role Phone Juan Manuel LIM, Kristen Acosta Primary Care Physic juan alberto Encounter [facility] Date(s): 10/03/23 - 11/02/23 [facility] [address] [place] [address]- Allergies, Adverse Reactions, Alerts Substance Reaction Severity Status morphine hives, SOB Active penicillins hive Active Wellbutrin rash Active Reglan Active cannabis (Schedule I substance) itching/vomiting Active Other Environmental Allergy mercury-fillings Active contrast media (iodine-based) itching throughout body Active Immunizations Given and Recorded Vaccine Date Status Refusal Reason SARS-CoV-2(COVID-19)mRNA-LNP vac([id number]) 10/19/23 Recorded SARS-CoV-2(COVID-19)mRNA-LNP vac([id number]) 07/03/23 Recorded RSV vaccine preF3, recombinant 05/19/23 [...] influenza virus vaccine, inactivated 04/26/09 Arnoldo rded [id number]-[id number] 12y+ bivalent booster vax 01/23/23 Recorded [id number]-[id number]-[id number] 12y+ bivalent booster vax 05/12/22 Recorded pneumococcal 20-valent conjugate vaccine 05/30/22 Recorded SARS-CoV-2 mRNA (piudxoh-pfbj-mrbxy) vax 03/10/22 Recorded SARS-CoV-2 mRNA (ndiqcnj-mcql-wkrxx) vax 10/04/21 Recorded SARS-CoV-2 (COVID-19) mRNA BNT-162b2 [...] 1 Refills, Maintenance, 08/01/23 13:53:00 EST, Tablet, [facility]/pharmacy #[id number], [...] 12:44:00 EST, Route to Pharmacy Electronically, [facility], Partial fill upon patient req... Start Date: 09/05/23 Stop Date: 06/01/24 Status: Ordered baclofen 20 mg oral tablet 20 mg, 1, tablet, By Mouth, 3 times a day, # 270 tablet, Refills 2, Tot. Refills 2, Maintenance, 06/01/24 12:44:00 EDT, Route to Pharmacy Electronically, [facility]/pharmacy #[id number], Partial fill upon patientrequest [...] Route to Pharmacy Electronically, [facility]/pharmacy#[id number], Partial fill upon patient request if the pre... Start Date: 09/05/23 Stop Date: 06/01/24 Status: Ordered bifidobacterium-lactobacillus oral tablet 2 tablet, By Mouth, 2 times a day, [facility] Brand please ([facility]), # [...] Refills, Maintenance, 01/06/23 14:02:00EDT, Tablet, [facility]/pharmacy #[id number], Partial fill upon patient request if the prescription is for a schedule II opioid drug., 155, cm, 02/23/22 8:04:00 EDT... Start Date: 01/06/23 Stop Date: 10/03/23 Status: Ordered Centrum Silver Ultra Women's oral tablet 1 tablet, By Mouth, Daily, 0 Refills, Maintenance, 07/09/18 8:43:55 EST Start Date: 07/09/18 Status: Ordered [facility] SENIOR PROBIOTIC CAPSULE TAKE 2 CAPSULES BY MOUTH TWICE A DAY Start Date: 11/01/21 Status: Ordered [facility] Senior Probiotic Capsule [facility] Senior Probiotic Capsule, [...] 5 Refills, 03/02/22 8:08:00 EDT, [facility]/pharmacy #[id number], 155, cm, [...] Stop, 03/27/23 18:43:00 EDT, Tablet, [facility]/pharmacy #[id number], Partial fill upon patient request if the prescription is for a schedule II opioid... Start Date: 03/27/23 Status: Ordered fluconazole 150 mg oral tablet 1 tablet = 150 mg, By Mouth, Every week, # 4 tablet, 1 Refills, Soft Stop, 05/26/22 8:59:00 EDT, Tablet, [facility]/pharmacy #[id number], Partial [...] 07/03/23 1:01:00 EST, Route to Pharmacy Electronically, [facility], 155, cm, 05/28/23 [...] Maintenance,02/15/23 7:44:00 EDT, Route to [facility], [facility], Partial fill upon patient request if the prescription is for... Start Date: 02/15/23 Stop Date: 11/12/23 Status: Ordered Juzo Compression Hose Juzo Compression Hose, See Instructions, # 2 each, Refills 2, Tot. Refills 2, Maintenance, Juzo Compression Hose 2 pairs zkfck-[id number]-ugbh Soft Knee FF Petite 20-30 mmHg Silicone, Black Stock Code [id number] I I I Part #69129 Size I I I SKU... Start Date: 03/12/23 Status: Ordered levothyroxine 0.088 mg oral tablet 1 tablet = 88 mcg, By Mouth, Daily, # 90 tablet, 1 Refills, Maintenance, 10/01/23 17:11:00 EST, Tablet, [facility]/pharmacy #[id number], Partial fill upon patient request if the prescription is for a schedule II opioid drug., 155, cm, 05/28/23 11:02:00 EDT, Height... Start Date: 10/01/23 Status: Ordered lisinopril 5 mg oral tablet 1, tablet, By Mouth, Daily, # 90 tablet, Refills 1, Tot. Refills 1, Maintenance, 10/01/23 17:15:00 EST, Route to Pharmacy Electronically, [facility]/pharmacy #[id number], 155, cm, 05/28/23 11:02:00 EDT, Height, 93.4, kg, 11/01/21 16:52:00 EDT, Dry Weight Start Date: 10/01/23 Status: Ordered Mapap 500 mg oral capsule See Instructions, TAKE 2 CAPSULES BY MOUTH 4 TIMES A DAY NEEDED FOR PAIN, # 480 capsule, 0 Refills, Maintenance, 10/01/23 17:46:00 EST, [facility]/pharmacy #[id number], 155, cm, 05/28/23 11:02:00 EDT, Height, 93.4, kg, 11/01/21 16:52:00 EDT, Dry Weight Start Date: 10/01/23 Status: Ordered Power [place] Lift with [place] split-leg sling Power [place] Lift with [place] split-leg sling, See Instructions, # 1 each, [...] 0 Refills, Maintenance, 08/08/23 18:05:00 EST, Tablet, [facility]/pharmacy #[id number], [...] 03/14/24 2:50:00 EDT, 11/23/23 2:50:00 EDT, Tablet, [facility]/pharmacy #[id number], [place]... Start Date: 11/23/23 Stop Date: 03/14/24 Status: Ordered Provigil 200 mg oral tablet 1 tablet = 200 mg, By Mouth, 2 times a day, for 28 days, takes in am and lunchtime brand name only - dispense as written Brand name only, # 56 tablet, 3 Refills, Hard Stop 11/23/23 2:50:00 EDT, 08/03/23 2:50:00 EST, Tablet, [facility]... Start Date: 08/03/23 [...] capsule, 1 Refills, 12/11/22 15:16:00 EDT, [facility]/pharmacy #[id number], 155, cm, [...] Care Nurse Name: Elsa Allen NP Position: [facility] Outreach Member Role: Primary Care Nurse Address: Address: [address] [facility] [place] [address]- Name: Emma Mendoza RN Position: [facility] Nurse Member Role: Primary Care Nurse Name: Juan Manuel LIM, Kristen Acosta Position: [facility] Physician - Primary Care Member Role: PCP Address: Address: [address] [place] [id number] Name: Komal Goodrich Position: [facility] Outreach Member Role: Lifetime Consulting Physician Name: Godfrey Cano Position: [facility] RN Member Role: Primary Care Nurse Name: Anette Miranda RN Position: [facility] Onco RN Member Role: Primary Care Nurse Care Team Related Persons Name: DIOMEDES WARNER Address: [address] [place] [address] Name: MOO HOWELL Address: home [address] [place] [address] Name: MARLON GENTILE
--- OUTSIDE RECORDS SUMMARY | 2024-03-17 13:40 | XMS_ITS | Continuity of Care Document ---
Author Organization [facility] Address [address] [place] [address]- Care Team Providers Care Access Director Name Role Phone Juan Manuel LIM, Kristen Acosta Primary Care Physic juan alberto Encounter [facility] Date(s): 05/28/23 - 06/27/23 [facility] [address] [place] [address]- Allergies, Adverse Reactions, Alerts Substance Reaction Severity Status morphine hives, SOB Active penicillins hive Active Wellbutrin rash Active Reglan Active cannabis (Schedule I substance) itching/vomiting Active Other Environmental Allergy mercury-fillings Active contrast media (iodine-based) itching throughout body Active Immunizations Given and Recorded Vaccine Date Status Refusal Reason pneumococcal 20-valent conjugate vaccine 05/30/22 Recorded [id number]-TzL-[id number] 12y+ bivalent booster vax 05/12/22 Recorded influenza [...] vaccine, inactivated 04/26/09 Arnoldo rded SARS-CoV-2 mRNA (gdqlbzn-jbcf-mamrs) vax 03/10/22 Recorded SARS-CoV-2 mRNA (vdefeqo-jctd-ldtcz) vax 10/04/21 Recorded SARS-CoV-2 (COVID-19) mRNA BNT-162b2 [...] 1 Refills, Maintenance, 12/11/22 17:34:00 EDT, Tablet, [facility]/pharmacy #[id number], Partial fill upon patient request if the prescription is for a schedule II opioid drug., 155, cm, 10/10/22 13:40:00 E... Start Date: 12/11/22 Status: Ordered baclofen 20 mg oral tablet 20 mg, 1, tablet, By Mouth, 3 times a day, # 270 tablet, Refills 2, Tot. Refills 2, Maintenance, 12/09/22 12:44:00 EDT, Route to Pharmacy Electronically, [facility], Partial fill upon patient request if the prescription is for a... Start Date: 12/09/22 Stop Date: 09/05/23 Status: Ordered bifidobacterium-lactobacillus oral tablet 2 tablet, By Mouth, 2 times a day, [facility] Brand please ([facility]), # 360 tablet, 3 Refills, Maintenance, 08/11/21 17:02:00 EST, Tablet, [facility]/pharmacy #[id number], Partial fill upon patient request if the prescription is for a schedule II opioid drug., 2... Start Date: 08/11/21 Stop Date: 08/06/22 Status: Ordered calcium carbonate 600 mg oral tablet 1 tablet = 600 mg, By Mouth, 2 times a day, # 180 tablet, 2 Refills, Maintenance, 01/06/23 14:02:00EDT, Tablet, [facility]/pharmacy #[id number], Partial fill upon patient request if the prescription is for a schedule II opioid drug., 155, cm, 02/23/22 8:04:00 EDT... Start Date: 01/06/23 Stop Date: 10/03/23 Status: Ordered Centrum Silver Ultra Women's oral tablet 1 tablet, By Mouth, Daily, 0 Refills, Maintenance, 07/09/18 8:43:55 EST Start Date: 07/09/18 Status: Ordered [facility] SENIOR PROBIOTIC CAPSULE TAKE 2 CAPSULES BY MOUTH TWICE A DAY Start Date: 11/01/21 Status: Ordered [facility] Senior Probiotic Capsule [facility] Senior Probiotic Capsule, See Instructions, [...] mL, 5 Refills, 03/02/22 8:08:00 EDT, [facility]/pharmacy #[id number], 155, cm, 02/23/22 8:04:00 [...] Soft Stop, 03/27/23 18:43:00 EDT, Tablet, [facility]/pharmacy #[id number], Partial fill upon patient request if the prescription is for a schedule II opioid... Start Date: 03/27/23 Status: Ordered fluconazole 150 mg oral tablet 1 tablet = 150 mg, By Mouth, Every week, # 4 tablet, 1 Refills, Soft Stop, 05/26/22 8:59:00 EDT, Tablet, [facility]/pharmacy #[id number], Partial fill upon patient [...] 2, Maintenance, Juzo Compression Hose 2 pairs amiol-ael-dzdh Soft Knee FF Petite 20-30 mmHg Silicone, Black Stock Code [id number] I I I Part #[id number] Size I I I SKU... Start Date: [...] capsule, 0 Refills, Maintenance, 03/12/23 9:16:00 EDT, [facility]/pharmacy #[id number], 155, cm, 10/10/22 13:40:00 EST, Height, 93.4, kg, 11/01/21 16:52:00 EDT, Dry Weight Start Date: 03/12/23 Status: Ordered Power [place] Lift with [place] split-leg sling Power [place] Lift with [place] split-leg sling, See Instructions, # 1 each, [...] 5 Refills, Maintenance, 12/11/22 17:34:00 EDT, Tablet, [facility]/pharmacy #[id number], Partial fill upon patient [...] Team Personnel Name: Juliann Rich RN Position: [facility] RN Member Role: Primary Care Nurse Name: Elsa Allen NP Position: Reference Physician Member Role: Primary Care Nurse Address: Address: [address] [place] [address] [address] [place] [address]- Name: Emma Mendoza RN Position: [facility] AMB Nurse Member Role: Primary Care Nurse Name: Juan Manuel LIM, Kristen Acosta Position: [facility] Physician - Primary Care Member Role: PCP Address: Address: [address] [place] [address]- Name: Komal Goodrich Position: [facility] Outreach Member Role: Lifetime Consulting Physician Name: Godfrey Cano Position: [facility] RN Member Role: Primary Care Nurse Name: Anette Miranda RN Position: [facility] Onco RN Member Role: Primary Care Nurse Care Team Related Persons Name: DIOMEDES WARNER Address: [address] [place] [address] Name: MOO HOWELL Address: [address] [place] [address] Name: MARLON GENTILE
--- OUTSIDE RECORDS SUMMARY | 2024-03-17 13:40 | XMS_ITS | Continuity of Care Document ---
Author Organization [facility] Address [address] [place] [address]- Care Team Providers Care Skewer Up Name Role Phone Juan Manuel LIM, Kristen Acosta Primary Care Physic juan alberto [facility]counter [facility] Date(s): 08/11/22 - 09/10/22 [facility] [address]- [place] Allergies, Adverse Reactions, Alerts Substance Reaction Severity Status morphine hives, SOB Active penicillins hive Active Wellbutrin rash Active Reglan Active cannabis (Schedule I substance) itching/vomiting Active Other Environmental Allergy mercury-fillings Active contrast media (iodine-based) itching throughout body Active Immunizations Given and Recorded Vaccine Date Status Refusal Reason pneumococcal 20-valent conjugate vaccine 05/30/22 Recorded [id number] 12y+ bivalent booster vax 05/12/22 Recorded influenza [...] vaccine, inactivated 04/26/09 Arnoldo rded SARS-CoV-2 mRNA (esmhzxt-idqk-zivew) vax 03/10/22 Recorded SARS-CoV-2 mRNA (pgxdbvg-idkm-bqiix) vax 10/04/21 Recorded SARS-CoV-2 (COVID-19) mRNA BNT-162b2 [...] Refills, Maintenance, 08/24/22 16:47:00 EST, Tablet, [facility], Partial fill upon patient request if the prescription is for a schedule II opioid drug., 155, cm, 06/15... Start Date: 08/24/22 Status: Ordered baclofen 20 mg oral tablet 20 mg, 1, tablet, By Mouth, 3 times a day, # 270 tablet, Refills 2, Tot. Refills 2, Maintenance, 12/09/22 12:44:00 EDT, Route to Pharmacy Electronically, [facility], Partial fill upon patient request if the prescription is for a... Start Date: 12/09/22 Stop Date: 09/05/23 Status: Ordered baclofen 20 mg oral tablet 20 mg, 1, tablet, By Mouth, 3 times a day, for 90 days, # 270 tablet, Refills 2, Tot. Refills 2, Hard Stop 12/09/22 12:44:00 EDT, 03/14/22 12:44:00 EDT, Route to Pharmacy Electronically, [id number], Partial fill upon patient request if the pre... Start Date: 03/14/22 Stop Date: 12/09/22 Status: Ordered bifidobacterium-lactobacillus oral tablet 2 tablet, By Mouth, 2 times a day, [facility] Brand please (Senior Wellness), # 360 tablet, 3 Refills, Maintenance, 08/11/21 17:02:00 EST, Tablet, [facility]pharmacy #[id number], Partial fill upon patient request if the prescription is for a schedule II opioid drug., 2... Start Date: 08/11/21 Stop Date: 08/06/22 Status: Ordered calcium carbonate 600 mg oral tablet 1 tablet = 600 mg, By Mouth, 2 times a day, # 180 tablet, 2 Refills, Maintenance, 01/06/23 14:02:00EDT, Tablet, [facility]acy #[id number], Partial fill upon patient request if [...] 14:02:00 EDT, 01/11/22 14:02:00 EDT, Tablet, [facility], Partial fill upon patient request if the prescription is for a schedul... Start Date: 01/11/22 Stop Date: 01/06/23 Status: Ordered Centrum Silver Ultra Women's oral tablet 1 tablet, By Mouth, Daily, 0 Refills, Maintenance, 07/09/18 8:43:55 EST Start Date: 07/09/18 Status: Ordered [facility] SENIOR PROBIOTIC CAPSULE TAKE 2 CAPSULES BY MOUTH TWICE A DAY Start Date: 11/01/21 Status: Ordered [facility] Senior Probiotic Capsule [facility] Senior Probiotic Capsule, See Instructions, # 180 [...] 3 Refills, Maintenance, 04/02/22 21:13:00 EDT, Gel, [facility]... Start Date: 04/02/22 Status: Ordered [...] 450 mL, 5 Refills, 03/02/22 8:08:00 EDT, [facility]acy #[id number], 155, cm, 02/23/22 8:04:00 EDT, Height, [...] Refills, Soft Stop, 05/26/22 8:59:00 EDT, Tablet, [facility] #[id number], Partial fill upon patient request if [...] 9:03:00 EDT, Route to Pharmacy Electronically, [facility], Partial fill upon patient request [...] 01/11/22 13:45:00 EDT, Route to Pharmacy Electronically, [facility] AD[facility]... Start Date: 01/11/22 Status: Ordered gabapentin 300 mg oral capsule 300 mg, 1, capsule, By Mouth, 3 times a day, # 270 capsule, Refills 2, Tot. Refills 2, Maintenance,05/21/22 7:44:00 EDT, Route to Pharmacy Electronically, [facility], Partial fill upon patient request if the prescription is for... Start Date: 05/21/22 Stop Date: 02/15/23 Status: Ordered Juzo Compression Hose Juzo Compression Hose, See Instructions, # 2 each, Refills 2, Tot. Refills 2, Maintenance, 20-30mmghg FF Petite (short),Wkqhp-cng-cpub, soft knee, black silicone Stock code [id number] Part #[id number], Size III. [facility] [id number], 12/07/21 11:32:00 EDT,... Start Date: 12/07/21 Status: Ordered levothyroxine 0.088 mg oral tablet 1 tablet = 88 mcg, By Mouth, Daily, # 90 tablet, 1 Refills, Maintenance, 09/08/22 14:26:00 EST, Tablet, [facility], Partial fill upon patient request if the prescription is fora schedule II opioid drug., 155, cm, 07/12/22 14:10... Start Date: 09/08/22 Status: Ordered lisinopril 5 mg oral tablet 5 mg, 1, tablet, By Mouth, Daily, # 90 tablet, Refills 3, Tot. Refills 3, Maintenance, 02/24/22 15:53:00 EDT, Route to Pharmacy Electronically, [facility] #[id number], Partial fill upon patient request if the prescription is for a schedule II opioid drug.... Start Date: 02/24/22 Status: Ordered Mapap 500 mg oral capsule See Instructions, TAKE 2 CAPSULES BY MOUTH 4 TIMES A DAY NEEDED FOR PAIN, # 480 capsule, 3 Refills, Maintenance, 06/04/22 16:03:00 EDT, [facility] STORE [id number], 155, cm, 05/25/22 13:44:00 EDT, Height, 93.4, kg, 11/01/21 16:52:00 EDT, Dry Weight Start Date: 06/04/22 Status: Ordered Potassium Chloride (Eqv-K-Tab) 20 mEq oral tablet, extended release 1 tablet = 20 mEq, By Mouth, Daily, for low potassium, # 10 tablet, 0 Refills, Maintenance, 03/02/22 19:14:00 EDT, [facility] #[id number], Partial fill upon patient request if the prescription is for a schedule II opioid drug., 155, cm, 02/23/22 8:04:00 E... Start Date: 03/02/22 Stop Date: 03/12/22 Status: Ordered Power Virginia Lift with [place] split-leg sling Power Virginia Lift with [place] split-leg sling, See Instructions, # 1 each, [...] 18 tablet, 0Refills, Maintenance, 08/24/22 17:06:00 EST, [facility] #[id number], Partial fill upon patient request if [...] 11/01/22 17:46:00 EDT, 07/12/22 17:46:00 EST, Tablet, [facility] #[id number], Partial fill upon pa... Start Date: 07/12/22 Stop Date: 11/01/22 Status: Ordered Provigil 200 mg oral tablet 1 tablet = 200 mg, By Mouth, 2 times a day, takes in am and lunchtime brand name only - dispense aswritten, # 56 tablet, 0 Refills, Maintenance, 09/07/22 14:36:00 EST, Tablet, [id number] [...] 10/25/22 18:25:00 EDT, 07/05/22 18:25:00 EST, [facility]... Start Date: 07/05/22 Stop Date: [...] 90 capsule, 2 Refills, 02/28/22 8:13:00 EDT, [facility] #[id number], 155,cm, 02/23/22 8:04:00 EDT, Height, 93.4, kg, 11/01/21 16:52:00 EDT, Dry Weight Start Date: 02/28/22 Status: Ordered Xarelto 20 mg oral tablet 1 tablet = 20 mg, By Mouth, Daily at supper, # 90 tablet, 3 Refills, Maintenance, 02/01/22 12:42:00EDT, Tablet, [facility], Partial fill upon patient request [...] Member Role: Primary Care Nurse Address: Address: [address] [place] [address]- [place] Name: Emma Mendoza RN Position: [facility] RN Member Role: Primary Care Nurse Name: Juan Manuel LIM, Kristen Acosta Position: [facility] Primary Care Physician Member Role: PCP Address: Address: [address] [place] [address]- Name: Jade Medina Position: [facility] RN Member Role: Primary Care Nurse Name: Komal Goodrich Position: [facility] Outreach Member Role: Lifetime Consulting Physician Name: Godfrey Cano Position: [facility] RN Member Role: Primary Care Nurse Name: Anette Miranda RN Position: [facility] Onco RN Member Role: Primary Care Nurse Care Team Related Persons Name: DIOMEDES WARNER Address: home [address] [place] [address] Name: MOO HOWELL Address: home [address] [place] [address] Name: MARLON GENTILE
--- OUTSIDE RECORDS SUMMARY | 2024-03-17 13:40 | XMS_ITS | Continuity of Care Document ---
Author Organization [facility] Address [address] [place] [address]- Care Team Providers Care Ticket Broker Name Role Phone Juan Manuel LIM, Kristen Acosta Primary Care Physic juan alberto Encounter [facility] Date(s): 09/26/22 - 10/26/22 [facility] [address] [place], [place] [address] Attending Physician: Admtr, [id number] Admitting Physician: [...] Reason pneumococcal 20-valent conjugate vaccine 05/30/22 Recorded [id number] 12y+ bivalent booster vax 05/12/22 Recorded influenza [...] vaccine, inactivated 04/26/09 Arnoldo rded SARS-CoV-2 mRNA (ebykzrd-cqzp-cumuw) vax 03/10/22 Recorded SARS-CoV-2 mRNA (anwqivd-qpjp-rmeyr) vax 10/04/21 Recorded SARS-CoV-2 (COVID-19) mRNA BNT-162b2 [...] tablet, 0 Refills, Maintenance, 10/05/22 9:35:00EST, Tablet, [facility]/pharmacy #[id number], Partial fill upon patient request if the prescription is for a schedule II opioid drug., 155, cm, 09/26/22 14:02:00 ES... Start Date: 10/05/22 Status: Ordered baclofen 20 mg oral tablet 20 mg, 1, tablet, By Mouth, 3 times a day, # 270 tablet, Refills 2, Tot. Refills 2, Maintenance, 12/09/22 12:44:00 EDT, Route to Pharmacy Electronically, [facility], Partial fill upon patient request if the prescription is for a... Start Date: 12/09/22 Stop Date: 09/05/23 Status: Ordered baclofen 20 mg oral tablet 20 mg, 1, tablet, By Mouth, 3 times a day, for 90 days, # 270 tablet, Refills 2, Tot. Refills 2, Hard Stop 12/09/22 12:44:00 EDT, 03/14/22 12:44:00 EDT, Route to Pharmacy Electronically, [facility]/pharmacy#[id number], Partial fill upon patient request if the [...] tablet, 2 Refills, Maintenance, 01/06/23 14:02:00EDT, Tablet, [facility]/pharmacy #[id number], Partial [...] 01/06/23 14:02:00 EDT, 01/11/22 14:02:00 EDT, Tablet, [facility], [...] A DAY Start Date: 11/01/21 Status: Ordered [facility] Senior Probiotic Capsule [facility] Senior Probiotic Capsule, See Instructions, # 180 [...] 450 mL, 5 Refills, 03/02/22 8:08:00 EDT, [facility]/pharmacy #[id number], 155, cm, 02/23/22 8:04:00 [...] Refills, Soft Stop, 05/26/22 8:59:00 EDT, Tablet, [facility]/pharmacy #[id number], Partial [...] 01/02/22 9:03:00 EDT, Route [place] Pharmacy Electronically, [facility] [facility] [...] 13:45:00 EDT, [facility] Start Date: 01/11/22 Status: Ordered gabapentin 300 mg oral capsule 300 mg, 1, capsule, By Mouth, 3 times a day, for 90 days, # 270 capsule, Refills 2, Tot. Refills 2,Hard Stop 02/15/23 7:44:00 EDT, 05/21/22 7:44:00 EDT, Route to Pharmacy Electronically, [facility], Partial fill upon patient re... [...] Tot. Refills 2, Maintenance, 20-30mmghg FF Petite (short),Bcyib-okq-gqjn, soft knee, black silicone Stock code [id number] Part #61650, Size III. [facility] [id number], 12/07/21 11:32:00 EDT,... Start Date: 12/07/21 Status: Ordered levothyroxine 0.088 mg oral tablet 1 tablet = 88 mcg, By Mouth, Daily, # 90 tablet, 1 Refills, Maintenance, 09/08/22 14:26:00 EST, [facility], Partial fill upon patient request if the prescription is fora schedule II opioid drug., 155, cm, 07/12/22 14:10... Start Date: 09/08/22 Status: Ordered lisinopril 5 mg oral tablet 5 mg, 1, tablet, By Mouth, Daily, # 90 tablet, Refills 3, Tot. Refills 3, Maintenance, 02/24/22 15:53:00 EDT, Route to Pharmacy Electronically, [facility]/pharmacy #[id number], Partial fill upon patient request if the prescription is for a schedule II opioid drug.... Start Date: 02/24/22 Status: Ordered lisinopril 5 mg oral tablet See Instructions, TAKE 1 TABLET DAILY, # 90 tablet, Refills 1, Maintenance, 09/24/22 19:24:00 EST, Instructions Replace Required Details, Route to Pharmacy Electronically, [facility], 155, cm, 07/12/22 14:10:00 EST, Height, 93.4, k... Start Date: 09/24/22 Status: Ordered Mapap 500 mg oral capsule See Instructions, TAKE 2 CAPSULES BY MOUTH 4 TIMES A DAY NEEDED FOR PAIN, # 480 capsule, 3 Refills, Maintenance, 06/04/22 16:03:00 EDT, [id number], 155, cm, 05/25/22 13:44:00 EDT, Height, 93.4, kg, 11/01/21 16:52:00 EDT, Dry Weight Start Date: 06/04/22 Status: Ordered Power [place] Lift with [place] split-leg sling Power [place] Lift with [place] split-leg sling, See Instructions, # 1 each, [...] tablet, 3 Refills, Maintenance, 02/01/22 12:42:00EDT, Tablet, [facility], Partial [...] Member Role: Primary Care Nurse Address: Address: [address] [place] [address] [address] [facility] [place] [address] Name: Emma Mendoza RN Position: [facility] RN Member Role: Primary Care Nurse Name: Juan Manuel LIM, Kristen Acosta Position: [facility] Primary Care Physician Member Role: PCP Address: Address: [address] [place] [id number] Name: Jade Medina Position: S RN Member Role: Primary Care Nurse Name: Komal Goodrich Position: [facility] Outreach Member Role: Lifetime Consulting Physician Name: Godfrey Cano Position: [facility] RN Member Role: Primary Care Nurse Name: Anette Miranda RN Position: [facility] Onco RN Member Role: Primary Care Nurse Care Team Related Persons Name: DIOMEDES WARNER Address: home [address] [place] [address] Name: MOO HOWELL Address: home [address] [place] [address] Name: MARLON GENTILE
--- OUTSIDE RECORDS SUMMARY | 2024-03-17 13:40 | XMS_ITS | Continuity of Care Document ---
Author Organization [facility] Address [address] [place] [address]- Care Team Providers Care Grease Maker Name Role Phone Juan Manuel LIM, Kristen Acosta Primary Care Physic juan alberto [place] [facility] [place]): 06/27/21 - 07/04/21 [facility] [address] [place] [address]- Attending Physician: Juan Manuel LIM, Kristen Acosta [...] tablet, By Mouth, Daily, [facility] Brand please (Senior Wellness), # 180 tablet, 3 Refills, Maintenance, 06/27/21 9:09:00 EST, Tablet, [facility]/pharmacy #[id number], Partial fill upon patient request [...] Refills, Maintenance, 04/25/21 14:08:00 EDT, Tablet, [facility]/pharmacy #[id number], Partial fill upon patient request [...] 04/05/21 13:39:00 EDT, Route to Pharmacy Electronically, [facility] [...] 1 Refills, Maintenance, 06/21/21 15:50:00 EST, Tablet, [facility]/pharmacy #[id number], Partial fill upon patient request if the prescription is for a schedule II opioid drug., 153, cm, 04/25/21 13:34:00 EDT, Height Start Date: 06/21/21 Status: Ordered lisinopril 5 mg oral tablet 5 mg, 1, tablet, By Mouth, Daily, # 90 tablet, Refills 1, Tot. Refills 1, Maintenance, 04/05/21 13:40:00 EDT, Route to Pharmacy Electronically, [facility] [...] Refills, Maintenance, 05/18/21 7:27:00 EDT, Tablet, [facility]/pharmacy #[id number], Partial fill upon patient request if the prescription... Start Date: 05/18/21 Status: Ordered Turmeric = 750 mg, By Mouth, 2 times a day, 0 Refills, Maintenance, 07/09/18 8:47:35 EST Start Date: 07/09/18 Status: Ordered Vitamin D3 2000 intl units oral capsule 1 capsule, By Mouth, Daily, # 90 capsule, 1 Refills, [id number], 153, cm, 04/25/21 13:34:00 EDT, Height Start [...] embolism(Confirmed) Active Bladder spasm(Confirmed) Active Spasticity(Confirmed) Active Vital Signs Most recent to oldest [Reference Range]: 1 Height 153 cm (06/27/21 7:47 AM) Social History Social History Type Response Smoking Status Never smoker entered on: 11/15/14 Sex
--- OUTSIDE RECORDS SUMMARY | 2024-03-17 13:40 | XMS_ITS | Continuity of Care Document ---
Author Organization [facility] Address [address] [place] [address]- Care Team Providers Care Demurrage Man Name Role Phone Rey CENTENO, Javy Lerma Primary Care Physician [phone] Encounter [facility] Date(s): 04/13/21 - 05/13/21 [facility] [address] [place], [place] [address] Allergies, Adverse Reactions, Alerts Substance [...] Maintenance, 04/25/21 14:08:00 EDT, Tablet, [facility]/pharmacy #[id number], [...] mL, 0 Refills, Maintenance, 02/18/21 10:22:00 EDT,Liquid, [id number] Partial fill upon patient request if the prescription is for a scheduleII opioid drug. Ok to dispense similar quantity if... Start Date: 02/18/21 Stop Date: 03/20/21 Status: Ordered levothyroxine 0.088 mg oral tablet 1 tablet = 88 mcg, By Mouth, Daily, # 90 tablet, 1 Refills, Maintenance, 04/05/21 13:40:00 EDT, Tablet, [facility], Partial fill upon patient request if the prescription is fora schedule II opioid drug., 153, cm, 04/04/21 9:04:... Start Date: 04/05/21 Status: Ordered lisinopril 5 mg oral tablet 5 mg, 1, tablet, By Mouth, Daily, # 90 tablet, Refills 1, Tot. Refills 1, Maintenance, 04/05/21 13:40:00 EDT, Route to Pharmacy Electronically, [facility] [...] Refills, Maintenance, 04/05/21 13:35:00 EDT, [facility]/pharmacy #[id number], Partial [...] Refills, Maintenance, 04/05/21 13:30:00 EDT, Tablet, [facility]/pharmacy #[id number], [...]
--- OUTSIDE RECORDS SUMMARY | 2024-03-17 13:40 | XMS_ITS | Continuity of Care Document ---
Author Organization [facility] Address [address] [place] [address]- Care Team Providers Care Sand Filler Name Role Phone Juan Manuel LIM, Kristen Acosta Primary Care Physic juan alberto Encounter [facility] Date(s): 11/14/22 - 12/14/22 [facility] [address] [place] [id number] Allergies, Adverse Reactions, Alerts Substance Reaction Severity Status morphine hives, SOB Active penicillins hive Active Wellbutrin rash Active Reglan Active cannabis (Schedule I substance) itching/vomiting Active Other Environmental Allergy mercury-fillings Active contrast media (iodine-based) itching throughout body Active Immunizations Given and Recorded Vaccine Date Status Refusal Reason pneumococcal 20-valent conjugate vaccine 05/30/22 Recorded [id number] 12y+ bivalent booster vax 05/12/22 Recorded influenza [...] vaccine, inactivated 04/26/09 Arnoldo rded SARS-CoV-2 mRNA (psgztml-myyk-vhsuz) vax 03/10/22 Recorded SARS-CoV-2 mRNA (sdccwvu-uwen-ucfwt) vax 10/04/21 Recorded SARS-CoV-2 (COVID-19) mRNA BNT-162b2 [...] Refills, Maintenance, 12/11/22 17:34:00 EDT, Tablet, [facility]/pharmacy [...] 12/09/22 12:44:00 EDT, [facility] Partial fill upon patient request if the prescription is for a... Start Date: 12/09/22 Stop Date: 09/05/23 Status: Ordered bifidobacterium-lactobacillus oral tablet 2 tablet, By Mouth, 2 times a day, [facility] Brand please ([facility]), # 360 tablet, 3 Refills, Maintenance, [...] 01/11/22 13:45:00 EDT, Route to Pharmacy Electronically, [facility] ADIS... Start Date: 01/11/22 Status: [...] Tot. Refills 2, Maintenance, 20-30mmghg FF Petite (short),Rzykz-whm-runv, soft knee, black silicone Stock code [id number] Part #91485, Size III. [facility] [id number], 12/07/21 11:32:00 EDT,... Start Date: 12/07/21 Status: [...] 15:53:00 EDT, Route to Pharmacy Electronically, [facility]/pharmacy #[id number], Partial fill upon patient request if the prescription is for a schedule II opioid drug.... Start Date: 02/24/22 Status: Ordered lisinopril 5 mg oral tablet See Instructions, TAKE 1 TABLET DAILY, # 90 tablet, Refills 1, Maintenance, 09/24/22 19:24:00 EST, Instructions Replace Required Details, Route to Pharmacy Electronically, [facility], 155, cm, 07/12/22 14:10:00 EST, Height, 93.4, k... Start Date: 09/24/22 Status: Ordered Mapap 500 mg oral capsule See Instructions, TAKE 2 CAPSULES BY MOUTH 4 TIMES A DAY NEEDED FOR PAIN, # 480 capsule, 3 Refills, Maintenance, 06/04/22 16:03:00 EDT, [facility] STORE [id number], 155, cm, 05/25/22 13:44:00 EDT, Height, 93.4, kg, 11/01/21 16:52:00 EDT, Dry Weight Start Date: 06/04/22 Status: Ordered Power Virginia Lift with [place] split-leg sling Power Virginia Lift with [place] split-leg sling, See Instructions, # 1 each, [...] 17:39:00 EDT, 10/05/22 17:39:00 EST, Tablet, [facility]/pharmacy #[id number], Partial fill upon pa... Start Date: 10/05/22 Stop Date: 03/22/23 Status: Ordered Provigil 200 mg oral tablet 1 tablet = 200 mg, By Mouth, 2 times a day, takes in am and lunchtime brand name only - dispense aswritten, # 56 tablet, 5 Refills, Maintenance, 12/11/22 17:34:00 EDT, Tablet, [facility]/pharmacy [...] tablet, 3 Refills, Maintenance, 02/01/22 12:42:00EDT, Tablet, [facility], Partial fill upon patient request [...] Team Personnel Name: Juliann Rich RN Position: [facility] RN Member Role: Primary Care Nurse Name: Elsa Allen NP Position: Reference Physician Member Role: Primary Care Nurse Address: Address: [address] [place] [address] [address] [place] [address]- Name: Emma Mendoza RN Position: [facility] RN Member Role: Primary Care Nurse Name: Juan Manuel LIM, Kristen Acosta Position: [facility] Primary Care Physician Member Role: PCP Address: Address: [address] [place] [id number] Name: Jade Medina Position: S RN Member Role: Primary Care Nurse Name: Komal Goodrich Position: S Outreach Member Role: Lifetime Consulting Physician Name: Godfrey Cano Position: S RN Member Role: Primary Care Nurse Name: Anette Miranda RN Position: [facility] Onco RN Member Role: Primary Care Nurse Care Team Related Persons Name: DIOMEDES WARNER Address: [address] [place] [address] Name: MOO HOWELL Address: [address] [place] [address] Name: MARLON GENTILE
--- OUTSIDE RECORDS SUMMARY | 2024-03-17 13:40 | XMS_ITS | Continuity of Care Document ---
Author Organization [facility] Address [address] [place] [address]- Care Team Providers Care Diesel Locomotive Crane Operator Name Role Phone Juan Manuel LIM, Kristen Acosta Primary Care Physic juan alberto [facility]counter [facility] Date(s): 03/08/23 - 04/07/23 [facility] [address] [place] [address]- Allergies, Adverse Reactions, Alerts Substance Reaction Severity Status morphine hives, SOB Active penicillins hive Active Wellbutrin rash Active Reglan Active cannabis (Schedule I substance) itching/vomiting Active Other Environmental Allergy mercury-fillings Active contrast media (iodine-based) itching throughout body Active Immunizations Given and Recorded Vaccine Date Status Refusal Reason pneumococcal 20-valent conjugate vaccine 05/30/22 Recorded [id number] 12y+ bivalent booster vax 05/12/22 Recorded influenza [...] vaccine, inactivated 04/26/09 Arnoldo rded SARS-CoV-2 mRNA (rlouaee-knka-nvjue) vax 03/10/22 Recorded SARS-CoV-2 mRNA (bnevpvd-ikri-vhmjf) vax 10/04/21 Recorded SARS-CoV-2 (COVID-19) mRNA BNT-162b2 [...] 1 Refills, Maintenance, 12/11/22 17:34:00 EDT, Tablet, [facility]/pharmacy #[id number], Partial fill upon patient request if the prescription is for a schedule II opioid drug., 155, cm, 10/10/22 13:40:00 E... Start Date: 12/11/22 Status: Ordered baclofen 20 mg oral tablet 20 mg, 1, tablet, By Mouth, 3 times a day, # 270 tablet, Refills 2, Tot. Refills 2, Maintenance, 12/09/22 12:44:00 EDT, Route to Pharmacy Electronically, [facility], Partial fill upon [...] A DAY Start Date: 11/01/21 Status: Ordered [facility] Senior Probiotic Capsule [facility] Senior Probiotic Capsule, See [...] Refills, Soft Stop, 03/27/23 18:43:00 EDT, Tablet, [facility]/pharmacy #[id number], Partial fill upon patient request if the prescription is for a schedule II opioid... Start Date: 03/27/23 Status: Ordered fluconazole 150 mg oral tablet 1 tablet = 150 mg, By Mouth, Every week, # 4 tablet, 1 Refills, Soft Stop, 05/26/22 8:59:00 EDT, Tablet, [facility]/pharmacy #[id number], [...] 01/17/23 19:36:00 EDT, Route to Pharmacy Electronically, [facility], 155, cm, 10/10/22 [...] 2, Maintenance, Juzo Compression Hose 2 pairs ggnpk-msa-thdt Soft Knee FF Petite 20-30 mmHg Silicone, Black Stock Code [id number] I I I Part #99906 Size I I I SKU... Start Date: 03/12/23 Status: Ordered levothyroxine 0.088 mg oral tablet 1 tablet = 88 mcg, By Mouth, Daily, # 90 tablet, 3 Refills, Maintenance, 03/15/23 17:17:00 EDT, Tablet, [facility], Partial fill upon patient request if the prescription is fora schedule II opioid drug., 155, cm, 03/15/23 17:11... Start Date: 03/15/23 Status: Ordered lisinopril 5 mg oral tablet 1, tablet, By Mouth, Daily, # 90 tablet, Refills 3, Tot. Refills 3, Maintenance, 03/15/23 17:16:00 EDT, Route to Pharmacy Electronically, [facility], 155, cm, 03/15/23 17:11:00EDT, Height, 93.4, kg, 11/01/21 16:52:00 EDT, Dry W... Start Date: 03/15/23 Status: Ordered Mapap 500 mg oral capsule See Instructions, TAKE 2 CAPSULES BY MOUTH 4 TIMES A DAY NEEDED FOR PAIN, # 480 capsule, 0 Refills, Maintenance, 03/12/23 9:16:00 EDT, [facility]/pharmacy #[id number], 155, cm, 10/10/22 13:40:00 EST, Height, 93.4, kg, 11/01/21 16:52:00 EDT, Dry Weight Start Date: 03/12/23 Status: Ordered Power [place] Lift with [place] split-leg sling Power [place] Lift with [place] split-leg sling, See Instructions, # 1 each, [...] 5 Refills, Maintenance, 12/11/22 17:34:00 EDT, Tablet, [facility]/pharmacy #[id number], [...] Member Role: Primary Care Nurse Address: Address: [address] [place] [address] [address] [place] [address]- Name: Emma Mendoza RN Position: [facility] AMB Nurse Member Role: Primary Care Nurse Name: Juan Manuel LIM, Kristen Acosta Position: [facility] Physician - Primary Care Member Role: PCP Address: Address: [address] [place] [address]- Name: Komal Goodrich Position: [facility] Outreach Member Role: Lifetime Consulting Physician Name: Godfrey Cano Position: [facility] RN Member Role: Primary Care Nurse Name: Anette Miranda RN Position: [facility] Onco RN Member Role: Primary Care Nurse Care Team Related Persons Name: DIOMEDES WARNER Address: home [address] [place] [address] Name: MOO HOWELL Address: home [address] [place] [address] Name: MARLON GENTILE
--- OUTSIDE RECORDS SUMMARY | 2024-03-17 13:40 | XMS_ITS | Continuity of Care Document ---
Author Organization [facility] Address [address] [place] [address]- Care Team Providers Care Book Or Script Editor Name Role Phone Juan Manuel LIM, Kristen Acosta Primary Care Physic juan alberto Encounter [facility] Date(s): 12/15/22 - 01/14/23 [facility] [address] [place] [address] Allergies, Adverse Reactions, Alerts Substance Reaction Severity Status morphine hives, SOB Active penicillins hive Active Wellbutrin rash Active Reglan Active cannabis (Schedule I substance) itching/vomiting Active Other Environmental Allergy mercury-fillings Active contrast media (iodine-based) itching throughout body Active Immunizations Given and Recorded Vaccine Date Status Refusal Reason pneumococcal 20-valent conjugate vaccine 05/30/22 Recorded [id number] 12y+ bivalent booster vax 05/12/22 Recorded influenza [...] vaccine, inactivated 04/26/09 Arnoldo rded SARS-CoV-2 mRNA (jvzyhvk-lzuu-dpjte) vax 03/10/22 Recorded SARS-CoV-2 mRNA (xjipaes-xqmb-dfpbw) vax 10/04/21 Recorded SARS-CoV-2 (COVID-19) mRNA BNT-162b2 [...] 1 Refills, Maintenance, 12/11/22 17:34:00 EDT, Tablet, [facility]/pharmacy #[id number], Partial fill upon patient request if the prescription is for a schedule II opioid drug., 155, cm, 10/10/22 13:40:00 E... Start Date: 12/11/22 Status: Ordered baclofen 20 mg oral tablet 20 mg, 1, tablet, By Mouth, 3 times a day, # 270 tablet, Refills 2, Tot. Refills 2, Maintenance, 12/09/22 12:44:00 EDT, Route to Pharmacy Electronically, [facility], Partial fill upon [...] 01/11/22 13:45:00 EDT, Route to Pharmacy Electronically, [facility]... Start Date: 01/11/22 Status: [...] Tot. Refills 2, Maintenance, 20-30mmghg FF Petite (short),Marke-lxq-knlq, soft knee, black silicone Stock code [id number] Part #12316, Size III. [facility] [id number], 12/07/21 11:32:00 EDT,... Start Date: 12/07/21 Status: Ordered levothyroxine 0.088 mg oral tablet 1 tablet = 88 mcg, By Mouth, Daily, # 90 tablet, 1 Refills, Maintenance, 09/08/22 14:26:00 EST, Tablet, [facility], Partial fill upon patient request if the prescription is fora schedule II opioid drug., 155, cm, 07/12/22 14:10... Start Date: 09/08/22 Status: Ordered lisinopril 10 mg oral tablet 10 mg, 1, tablet, By Mouth, Daily, # 90 tablet, Refills 0, Tot. Refills 0, Maintenance, 01/01/23 8:04:00 EDT, Route to Pharmacy Electronically, [facility]/pharmacy #[id number], Partial fill upon patient request if the [...] Refills, Maintenance, 06/04/22 16:03:00 EDT, [id number], 155, cm, 05/25/22 13:44:00 EDT, Height, 93.4, kg, 11/01/21 16:52:00 EDT, Dry Weight Start Date: 06/04/22 Status: Ordered Power [place] Lift with [employer] split-leg sling Power [place] Lift with [employer] split-leg sling, See Instructions, # 1 each, [...] 03/22/23 17:39:00 EDT, 10/05/22 17:39:00 EST, Tablet, [facility]/pharmacy #[id number], Partial fill upon pa... Start Date: 10/05/22 Stop Date: 03/22/23 Status: Ordered Provigil 200 mg oral tablet 1 tablet = 200 mg, By Mouth, 2 times a day, takes in am and lunchtime brand name only - dispense aswritten, # 56 tablet, 5 Refills, Maintenance, 12/11/22 17:34:00 EDT, Tablet, [facility]/pharmacy #[id number], [...] 90 capsule, 1 Refills, 12/11/22 15:16:00 EDT, [facility]/pharmacy #[id number], 155, cm, 10/10/22 13:40:00 EST, Height, 93.4, kg, 11/01/21 16:52:00 EDT, Dry Weight Start Date: 12/11/22 Status: Ordered Xarelto 20 mg oral tablet 1 tablet = 20 mg, By Mouth, Daily at supper, # 90 tablet, 3 Refills, Maintenance, 02/01/22 12:42:00EDT, Tablet, [facility], Partial fill [...] Team Personnel Name: Juliann Rich RN Position: [facility] RN Member Role: Primary Care Nurse Name: Elsa Allen NP Position: Reference Physician Member Role: Primary Care Nurse Address: Address: [address] [place] [address] [address] [place] [address]- [place] Name: Emma Mendoza RN Position: [facility] Nurse Member Role: Primary Care Nurse Name: Juan Manuel LIM, Kristen Acosta Position: [facility] Physician - Primary Care Member Role: PCP Address: Address: [address] [place] [address]- Name: Jade Medina Position: [facility] RN Member Role: Primary Care Nurse Name: Komal Goodrich Position: [facility] Outreach Member Role: Lifetime Consulting Physician Name: Godfrey Cano Position: [facility] RN Member Role: Primary Care Nurse Name: Anette Miranda RN Position: [facility] Onco RN Member Role: Primary Care Nurse Care Team Related Persons Name: DIOMEDES WARNER Address: home [address] [place] [address] Name: MOO HOWELL Address: [address] [place] [address] Name: MARLON GENTILE
--- OUTSIDE RECORDS SUMMARY | 2024-03-17 13:40 | XMS_ITS | Continuity of Care Document ---
Author Organization [facility] Address [address] [place] [address]- Care Team Providers Care Drum Printer Name Role Phone Juan Manuel LIM, Kristen Acosta Primary Care Physic juan alberto Encounter [facility] Date(s): 05/11/22 - 06/10/22 [facility] [address] [place] [address]- Allergies, Adverse Reactions, Alerts Substance Reaction Severity Status morphine hives, SOB Active penicillins hive Active Wellbutrin rash Active Reglan Active cannabis (Schedule I substance) itching/vomiting Active Other Environmental Allergy mercury-fillings Active contrast media (iodine-based) itching throughout body Active Immunizations Given and Recorded Vaccine Date Status Refusal Reason pneumococcal 20-valent conjugate vaccine 05/30/22 Recorded [id number] 12y+ bivalent booster vax 05/12/22 Recorded influenza [...] vaccine, inactivated 04/26/09 Arnoldo rded SARS-CoV-2 mRNA (dqgkxzt-fgfq-ykdpq) vax 03/10/22 Recorded SARS-CoV-2 mRNA (tcbndsa-gpej-rtxoy) vax 10/04/21 Recorded SARS-CoV-2 (COVID-19) mRNA BNT-162b2 [...] Refills, Maintenance, 02/28/22 8:12:00EDT, Tablet, [facility]/pharmacy #[id number], Partial fill upon patient request if the prescription is for a schedule II opioid drug., 155, cm, 02/23/22 8:04:00 EDT... Start Date: 02/28/22 Status: Ordered baclofen 20 mg oral tablet 20 mg, 1, tablet, By Mouth, 3 times a day, # 270 tablet, Refills 2, Tot. Refills 2, Maintenance, 12/09/22 12:44:00 EDT, Route to Pharmacy Electronically, [facility], Partial fill upon patient request [...] 01/06/23 14:02:00 EDT, 01/11/22 14:02:00 EDT, Tablet, [facility], Partial fill upon patient request [...] 07/25/22 8:59:00 EST, 05/26/22 8:59:00 EDT, Cream, [facility]/pharmacy #[id number], Partial fill upon patient request if the prescription is for a schedule II opioid drug., 1 applicat... Start Date: 05/26/22 Stop Date: 07/25/22 Status: Ordered [facility] SENIOR PROBIOTIC [...] 01/02/22 9:03:00 EDT, Route to Pharmacy Electronically, [facility], Partial fill upon patient request [...] EDT, Route to Pharmacy Electronically, [facility]... Start Date: 01/11/22 Status: Ordered gabapentin 300 mg oral capsule 300 mg, 1, capsule, By Mouth, 3 times a day, # 270 capsule, Refills 2, Tot. Refills 2, Maintenance,05/21/22 7:44:00 EDT, Route to Pharmacy Electronically, [facility], Partial fill upon patient request if the prescription is for... Start Date: 05/21/22 Stop Date: 02/15/23 Status: Ordered Juzo Compression Hose Juzo Compression Hose, See Instructions, # 2 each, Refills 2, Tot. Refills 2, Maintenance, 20-30mmghg FF Petite (short),Dycim-qwz-apgu, soft knee, black silicone Stock code [id number] Part #74439, Size III. [facility] [id number], 12/07/21 11:32:00 EDT,... Start Date: 12/07/21 Status: Ordered levothyroxine 0.088 mg oral tablet 1 tablet = 88 mcg, By Mouth, Daily, # 90 tablet, 3 Refills, Maintenance, 03/31/22 13:45:00 EDT, Tablet, [facility], Partial fill upon patient request [...] 06/04/22 16:03:00 EDT, [id number], 155, cm, 05/25/22 13:44:00 EDT, Height, 93.4, [...] 03/12/22 Status: Ordered Power [place] Lift with [place] split-leg sling Power [place] Lift with [place] split-leg sling, See Instructions, # 1 [...] Maintenance, 02/28/22 8:12:00 EDT, Tablet, [facility]/pharmacy #[id number], Partial [...] tablet, 3 Refills, Maintenance, 02/01/22 12:42:00EDT, [facility] fill upon patient request [...] Juan Manuel LIM, Kristen Acosta Address: Address: [address] [place] [id number]
--- OUTSIDE RECORDS SUMMARY | 2024-03-17 13:40 | XMS_ITS | Continuity of Care Document ---
Author Organization [facility] Address [address] [facility], [address] [place] [address]- Care Team Providers Care Falafel Cart Cook Name Role Phone Juan Manuel LIM, Kristen Acosta Primary Care Physic juan alberto En[facility] Date(s): 01/03/23 - 02/02/23 [facility] [address] [facility] [place] [address]- Allergies, Adverse Reactions, Alerts Substance Reaction Severity Status morphine hives, SOB Active penicillins hive Active Wellbutrin rash Active Reglan Active cannabis (Schedule I substance) itching/vomiting Active Other Environmental Allergy mercury-fillings Active contrast media (iodine-based) itching throughout body Active Immunizations Given and Recorded Vaccine Date Status Refusal Reason pneumococcal 20-valent conjugate vaccine 05/30/22 Recorded [id number] 12y+ bivalent booster vax 05/12/22 Recorded influenza [...] vaccine, inactivated 04/26/09 Arnoldo rded SARS-CoV-2 mRNA (bpqplhy-xjfq-pugyp) vax 03/10/22 Recorded SARS-CoV-2 mRNA (zgcouca-inie-iqbyj) vax 10/04/21 Recorded SARS-CoV-2 (COVID-19) mRNA BNT-162b2 [...] 1 Refills, Maintenance, 12/11/22 17:34:00 EDT, Tablet, [facility]/pharmacy #[id number], Partial fill upon patient request if the prescription is for a schedule II opioid drug., 155, cm, 10/10/22 13:40:00 E... Start Date: 12/11/22 Status: Ordered baclofen 20 mg oral tablet 20 mg, 1, tablet, By Mouth, 3 times a day, # 270 tablet, Refills 2, Tot. Refills 2, Maintenance, 12/09/22 12:44:00 EDT, Route to Pharmacy Electronically, [facility], Partial fill upon patient request if the prescription is for a... Start Date: 12/09/22 Stop Date: 09/05/23 Status: Ordered bifidobacterium-lactobacillus oral tablet 2 tablet, By Mouth, 2 times a day, [facility] Brand please ([facility]), # 360 tablet, 3 Refills, [...] 8:43:55 EST Start Date: 07/09/18 Status: Ordered [facility] SENIOR PROBIOTIC CAPSULE TAKE 2 CAPSULES BY MOUTH TWICE A DAY Start Date: 11/01/21 Status: Ordered [facility] Senior Probiotic Capsule [facility], [...] 01/17/23 19:36:00 EDT, Route to Pharmacy Electronically, [facility], 155, cm, 10/10/22 [facility], [facility] fill upon patient re... Start [...] Tot. Refills 2, Maintenance, 20-30mmghg FF Petite (short),Rqdxo-iez-ckhb, soft knee, black silicone Stock code [id number] Part #05298, Size III. [facility] [id number], 12/07/21 11:32:00 EDT,... Start Date: 12/07/21 Status: Ordered levothyroxine 0.088 mg oral tablet 1 tablet = 88 mcg, By Mouth, Daily, # 90 tablet, 1 Refills, Maintenance, 09/08/22 14:26:00 EST, Tablet, [facility], Partial fill upon patient request if the prescription is fora schedule II opioid drug., 155, cm, 07/12/22 14:10... Start Date: 09/08/22 Status: Ordered lisinopril 5 mg oral tablet 1, tablet, By Mouth, Daily, # 90 tablet, Refills 1, Maintenance, 01/22/23 21:39:00 EDT, Route to Pharmacy Electronically, [facility], 155, cm, 10/10/22 13:40:00 EST, Height, 93.4,kg, 11/01/21 16:52:00 EDT, Dry Weight Start Date: 01/22/23 Status: Ordered Mapap 500 mg oral capsule See Instructions, TAKE 2 CAPSULES BY MOUTH 4 TIMES A DAY NEEDED FOR PAIN, # 480 capsule, 3 Refills, Maintenance, 06/04/22 16:03:00 EDT, [facility] [id number], 155, cm, 05/25/22 13:44:00 EDT, Height, 93.4, kg, 11/01/21 16:52:00 EDT, Dry Weight Start Date: 06/04/22 Status: Ordered Power [place] Lift with [place] split-leg sling Power [place] Lift with [place] split-leg sling, See Instructions, # 1 each, [...] Care team information Care Team Personnel Name: Hilario MILLER, Juliann Position: S RN Member Role: Primary Care Nurse Name: Elsa Allen NP Position: Reference Physician Member Role: Primary Care Nurse Address: Address: [address] [place] [address] [address] [place] [address]- [place] Name: Emma Mendoza RN Position: [facility] AMB Nurse Member Role: Primary Care Nurse Name: Juan Manuel LIM, Kristen Acosta Position: [facility] Physician - Primary Care Member Role: PCP Address: Address: [address] [place] [address]- Name: Komal Goodrich Position: [facility] Outreach Member Role: Lifetime Consulting Physician Name: Godfrey Cano Position: [facility] RN Member Role: Primary Care Nurse Name: Anette Miranda RN Position: [facility] Onco RN Member Role: Primary Care Nurse Care Team Related Persons Name: DIOMEDES WARNER Address: home [address] [place] [address] Name: MOO HOWELL Address: home [address] [place] [address] Name: MARLON GENTILE
--- OUTSIDE RECORDS SUMMARY | 2024-03-17 13:40 | XMS_ITS | Continuity of Care Document ---
Author Organization [facility] Address [address], [address] Floor, [address] [place] [id number]- Care Team Providers Care Director Business Systems Name Role Phone Juan Manuel LIM, Kristen Acosta Primary Care Physic juan alberto Encounter [facility] Date(s): 10/19/22 - 11/18/22 [facility] [address], [address], [address] [place] [id number] Attending Physician: Alissa Gannon Admitting Physician: AdmtrAlissa Referring Physician: [id number] Allergies, Adverse Reactions, Alerts Substance Reaction Severity Status morphine hives, SOB Active penicillins hive Active Wellbutrin rash Active Reglan Active cannabis (Schedule I substance) itching/vomiting Active Other Environmental Allergy mercury-fillings Active contrast media (iodine-based) itching throughout body Active Immunizations Given and Recorded Vaccine Date Status Refusal Reason pneumococcal 20-valent conjugate vaccine 05/30/22 Recorded [id number]-JqF-3xBRP 12y+ bivalent booster vax 05/12/22 Recorded influenza [...] vaccine, inactivated 04/26/09 Arnoldo rded SARS-CoV-2 mRNA (prjvvoh-xwfc-crghr) vax 03/10/22 Recorded SARS-CoV-2 mRNA (ttyugcx-wdqy-zqoky) vax 10/04/21 Recorded SARS-CoV-2 (COVID-19) mRNA BNT-162b2 [...] tablet, 0 Refills, Maintenance, 10/05/22 9:35:00EST, Tablet, [facility]/pharmacy #[id number], Partial fill upon patient request if the prescription is for a schedule II opioid drug., 155, cm, 09/26/22 14:02:00 ES... Start Date: 10/05/22 Status: Ordered baclofen 20 mg oral tablet 20 mg, 1, tablet, By Mouth, 3 times a day, # 270 tablet, Refills 2, Tot. Refills 2, Maintenance, 12/09/22 12:44:00 EDT, Route to Pharmacy Electronically, [facility], Partial fill upon patient request if the prescription is for a... Start Date: 12/09/22 Stop Date: 09/05/23 Status: Ordered baclofen 20 mg oral tablet 20 mg, 1, tablet, By Mouth, 3 times a day, for 90 days, # 270 tablet, Refills 2, Tot. Refills 2, Hard Stop 12/09/22 12:44:00 EDT, 03/14/22 12:44:00 EDT, [id number] Partial fill upon patient request if the pre... Start Date: 03/14/22 Stop Date: 12/09/22 Status: Ordered bifidobacterium-lactobacillus oral tablet 2 tablet, By Mouth, 2 times a day, [facility] Brand please (Senior Wellness), # 360 tablet, 3 Refills, Maintenance, 08/11/21 17:02:00 EST, Tablet, [facility]/pharmacy #[id number], Partial fill upon patient request if the prescription is for a schedule II opioid drug., 2... Start Date: 08/11/21 Stop Date: 08/06/22 Status: Ordered calcium carbonate 600 mg oral tablet 1 tablet = 600 mg, By Mouth, 2 times a day, # 180 tablet, 2 Refills, Maintenance, 01/06/23 14:02:00EDT, Tablet, [facility]/pharmacy #[id number], Partial fill upon patient [...] 11/20/22 16:57:00 EDT, 11/13/22 16:57:00 EDT, Tablet, [facility]/pharmacy #[id number], Partial fill upon patient request if the prescription is for a schedule II opioid drug., 1... Start Date: 11/13/22 Stop Date: 11/20/22 Status: Ordered [facility] SENIOR PROBIOTIC CAPSULE TAKE 2 CAPSULES BY MOUTH TWICE A DAY Start Date: 11/01/21 Status: Ordered [facility] Senior Probiotic Capsule [facility] Senior Probiotic [...] 450 mL, 5 Refills, 03/02/22 8:08:00 EDT, [facility]/pharmacy #[id number], 155, cm, 02/23/22 8:04:00 [...] Refills, Soft Stop, 05/26/22 8:59:00 EDT, Tablet, [facility]/pharmacy #[id number], Partial fill upon patient [...] 01/11/22 13:45:00 EDT, Route to Pharmacy Electronically, [facility] ADIS... Start Date: 01/11/22 Status: Ordered gabapentin 300 mg oral capsule 300 mg, 1, capsule, By Mouth, 3 times a day, for 90 days, # 270 capsule, Refills 2, Tot. Refills 2,Hard Stop 02/15/23 7:44:00 EDT, 05/21/22 7:44:00 EDT, Route to Pharmacy Electronically, [facility] [...] Tot. Refills 2, Maintenance, 20-30mmghg FF Petite (short),Rleuc-tbt-iomb, soft knee, black silicone Stock code [id number] Part #[id number], Size III. [facility] [id number], 12/07/21 11:32:00 EDT,... Start Date: 12/07/21 Status: Ordered levothyroxine 0.088 mg oral tablet 1 tablet = 88 mcg, By Mouth, Daily, # 90 tablet, 1 Refills, Maintenance, 09/08/22 14:26:00 EST, Tablet, [facility], Partial fill upon patient request if the prescription is fora schedule II opioid drug., 155, cm, 07/12/22 14:10... Start Date: 09/08/22 Status: Ordered lisinopril 5 mg oral tablet 5 mg, 1, tablet, By Mouth, Daily, # 90 tablet, Refills 3, Tot. Refills 3, Maintenance, 02/24/22 15:53:00 EDT, Route to Pharmacy Electronically, [facility]/pharmacy #[id number], Partial fill upon patient request if the prescription is for a schedule II opioid drug.... Start Date: 02/24/22 Status: Ordered lisinopril 5 mg oral tablet See Instructions, TAKE 1 TABLET DAILY, # 90 tablet, Refills 1, Maintenance, 09/24/22 19:24:00 EST, Instructions Replace Required Details, Route to Pharmacy Electronically, [facility], 155, cm, 07/12/22 14:10:00 EST, Height, 93.4, k... Start Date: 09/24/22 Status: Ordered Mapap 500 mg oral capsule See Instructions, TAKE 2 CAPSULES BY MOUTH 4 TIMES A DAY NEEDED FOR PAIN, # 480 capsule, 3 Refills, Maintenance, 06/04/22 16:03:00 EDT, [id number], 155, cm, 05/25/22 13:44:00 EDT, Height, 93.4, kg, 11/01/21 16:52:00 EDT, Dry Weight Start Date: 06/04/22 Status: Ordered Power [place] Lift with [place] split-leg sling Power [place] Lift with [place] split-leg sling, See Instructions, # 1 each, [...] 5 Refills, Maintenance, 10/05/22 17:39:00 EST, Tablet, [facility]/pharmacy #[id number], Partial fill upon patient [...] tablet, 3 Refills, Maintenance, 02/01/22 12:42:00EDT, Tablet, [facility], Partial [...] Name: Juliann Rich RN Position: [facility] RN Member Role: Primary Care Nurse Name: Elsa Allen NP Position: Reference Physician Member Role: Primary Care Nurse Address: Address: [address] [place] [address] [address] [place] [address]- Name: Emma Mnedoza RN Position: S RN Member Role: Primary Care Nurse Name: Juan Manuel LIM, Kristen Acosta Position: S Primary Care Physician Member Role: PCP Address: Address: [address] [place] [address]- Name: Jade Medina Position: [facility] RN Member Role: Primary Care Nurse Name: Komal Goodrich Position: [facility] Outreach Member Role: Lifetime Consulting Physician Name: Godfrey Cano Position: [facility] RN Member Role: Primary Care Nurse Name: Anette Miranda RN Position: [facility] Onco RN Member Role: Primary Care Nurse Care Team Related Persons Name: DIOMEDES WARNER Address: home [address] [place] [address] Name: MOO HOWELL Address: home [address] [place] [address] Name: MARLON GENTILE
--- OUTSIDE RECORDS SUMMARY | 2024-03-17 13:40 | XMS_ITS | Continuity of Care Document ---
Author Organization [facility] Address [address] [place], [place] [address]michelle walker, [address] [place] [address]- Care Team Providers Care Store Protection Specialist Name Role Phone Rey CENTENO, Javy Lerma Primary Care Physician Encounter [facility] R [id number] Date(s): 03/01/21 - 03/31/21 [facility] [address] [place] [address] Drive, [address] [place], [place] [address] Attending Physician: Alissa Gannon Admitting Physician: AdmtrAlissa Referring Physician: AdmtrAlissa Allergies, [...] 02/18/21 10:23:00 EDT, Route to Pharmacy Electronically, [facility]/pharmacy [...] mL, 0 Refills, Maintenance, 02/18/21 10:22:00 EDT,Liquid, [facility]/pharmacy #[id number], Partial fill upon patient [...]
--- OUTSIDE RECORDS SUMMARY | 2024-03-17 13:40 | XMS_ITS | Continuity of Care Document ---
Author Organization [facility] Address [address] [place] [address]- Care Team Providers Care Apparel Pattern Maker Name Role Phone Jason CENTENO, Efrem Pickering Primary Care Physician [phone] [id number]25[facility] [address] [place] [address] [facility] Attending Physician: Navin LIM, Win Toro Referring Physician: Maria Del Carmen Rosas MD [...]
--- OUTSIDE RECORDS SUMMARY | 2024-03-17 13:40 | XMS_ITS | Continuity of Care Document ---
Author Organization [facility] Address [address] [place] [address]- Care Team Providers Care Laundromat Worker Name Role Phone Juan Manuel LIM, Kristen Acosta Primary Care Physic juan alberto Encounter [facility] Date(s): 10/04/23 - 11/03/23 [facility] [address] [place] [address]- Allergies, Adverse Reactions, Alerts Substance Reaction Severity Status morphine hives, SOB Active Wellbutrin rash Active Reglan Active contrast media (iodine-based) itching throughout body Active penicillins hive Active cannabis (Schedule I substance) itching/vomiting Active Other Environmental Allergy mercury-fillings Active Immunizations Given and Recorded Vaccine Date Status Refusal Reason SARS-CoV-2(COVID-19)mRNA-LNP vac([id number]) 10/19/23 Recorded SARS-CoV-2(COVID-19)mRNA-LNP vac(eho601) 07/03/23 Recorded RSV vaccine preF3, recombinant 05/19/23 [...] influenza virus vaccine, inactivated 04/26/09 Arnoldo rded [id number]-ErR-[id number] 12y+ bivalent booster vax 01/23/23 Recorded [id number]-[id number]-[id number] 12y+ bivalent booster vax 05/12/22 Recorded pneumococcal 20-valent conjugate vaccine 05/30/22 Recorded SARS-CoV-2 mRNA (jzbchwx-nvyb-fgwqt) vax 03/10/22 Recorded SARS-CoV-2 mRNA (dbmzwnp-iagq-ixmfx) vax 10/04/21 Recorded SARS-CoV-2 (COVID-19) mRNA BNT-162b2 [...] 1 Refills, Maintenance, 08/01/23 13:53:00 EST, Tablet, [facility]/pharmacy #[id number], Partial fill [...] 09/05/23 12:44:00 EST, Route to Pharmacy Electronically, [facility], Partial fill upon patient req... Start Date: 09/05/23 Stop Date: 06/01/24 Status: Ordered baclofen 20 mg oral tablet 20 mg, 1, tablet, By Mouth, 3 times a day, # 270 tablet, Refills 2, Tot. Refills 2, Maintenance, 06/01/24 12:44:00 EDT, Route to Pharmacy Electronically, [facility]/pharmacy #[id number], Partial fill upon patientrequest if the prescription is for a schedule II op... Start Date: 06/01/24 Stop Date: 02/26/25 Status: Ordered baclofen 20 mg oral tablet 20 mg, 1, tablet, By Mouth, 3 times a day, for 90 days, # 270 tablet, Refills 2, Tot. Refills 2, Hard Stop 06/01/24 12:44:00 EDT, 09/05/23 12:44:00 EST, Route to Pharmacy Electronically, [facility]/pharmacy#[id number], Partial fill upon patient request if the pre... Start Date: 09/05/23 Stop Date: 06/01/24 Status: Ordered bifidobacterium-lactobacillus oral tablet 2 tablet, By Mouth, 2 times a day, [facility] Brand please ([facility]ness), # 360 tablet, 3 Refills, [...] A DAY Start Date: 11/01/21 Status: Ordered [facility] Senior Probiotic Capsule [facility] Senior Probiotic Capsule, See Instructions, # [...] Refills, Soft Stop, 03/27/23 18:43:00 EDT, Tablet, [facility]/pharmacy #[id number], Partial fill upon patient request if the prescription is for a schedule II opioid... Start Date: 03/27/23 Status: Ordered fluconazole 150 mg oral tablet 1 tablet = 150 mg, By Mouth, Every week, # 4 tablet, 1 Refills, Soft Stop, 05/26/22 8:59:00 EDT, Tablet, [facility]/pharmacy #[id number], Partial fill [...] 07/03/23 1:01:00 EST, Route to Pharmacy Electronically, [facility], 155, cm, 05/28/23 11:02:00 [...] Maintenance,02/15/23 7:44:00 EDT, Route to Pharmacy [facility], [facility], Partial fill upon patient request if the prescription is for... Start Date: 02/15/23 Stop Date: 11/12/23 Status: Ordered Juzo Compression Hose Juzo Compression Hose, See Instructions, # 2 each, Refills 2, Tot. Refills 2, Maintenance, Juzo Compression Hose 2 pairs lcjht-ssj-pksu Soft Knee FF Petite 20-30 mmHg Silicone, Black Stock Code [id number] I I I Part #[id number] Size I I I SKU... Start Date: 03/12/23 Status: Ordered levothyroxine 0.088 mg oral tablet 1 tablet = 88 mcg, By Mouth, Daily, # 90 tablet, 1 Refills, Maintenance, 10/01/23 17:11:00 EST, Tablet, [facility]/pharmacy #[id number], Partial fill upon patient request if the prescription is for a schedule II opioid drug., 155, cm, 05/28/23 11:02:00 EDT, Height... Start Date: 10/01/23 Status: Ordered lisinopril 5 mg oral tablet 1, tablet, By Mouth, Daily, # 90 tablet, Refills 1, Tot. Refills 1, Maintenance, 10/01/23 17:15:00 EST, Route to Pharmacy Electronically, [facility]/pharmacy #[id number], 155, cm, 05/28/23 11:02:00 EDT, Height, 93.4, kg, 11/01/21 16:52:00 EDT, Dry Weight Start Date: 10/01/23 Status: Ordered Mapap 500 mg oral capsule See Instructions, TAKE 2 CAPSULES BY MOUTH 4 TIMES A DAY NEEDED FOR PAIN, # 480 capsule, 0 Refills, Maintenance, 10/01/23 17:46:00 EST, [facility]/pharmacy #[id number], 155, cm, 05/28/23 11:02:00 EDT, Height, 93.4, kg, 11/01/21 16:52:00 EDT, Dry Weight Start Date: 10/01/23 Status: Ordered Power [place] Lift with [place] split-leg sling Power [place] Lift with [place] split-leg sling, See Instructions, # 1 each, [...] 0 Refills, Maintenance, 08/08/23 18:05:00 EST, Tablet, [facility]/pharmacy #[id number], Partial fill [...] 03/14/24 2:50:00 EDT, 11/23/23 2:50:00 EDT, Tablet, [facility]/pharmacy #[id number], Partia... Start Date: 11/23/23 Stop Date: 03/14/24 Status: Ordered Provigil 200 mg oral tablet 1 tablet = 200 mg, By Mouth, 2 times a day, for 28 days, takes in am and lunchtime brand name only - dispense as written Brand name only, # 56 tablet, 3 Refills, Hard Stop 11/23/23 2:50:00 EDT, 08/03/23 2:50:00 EST, Tablet, [facility]... Start Date: 08/03/23 [...] 90 capsule, 1 Refills, 12/11/22 15:16:00 EDT, [facility]/pharmacy #[id number], 155, cm, 10/10/22 13:40:00 EST, [...] Care Nurse Name: Elsa Allen NP Position: [facility] Outreach Member Role: Primary Care Nurse Address: Address: [address] [facility] [place] [address]- Name: Emma Mendoza RN Position: [facility] Nurse Member Role: Primary Care Nurse Name: Juan Manuel LIM, Kristen Acosta Position: [facility] Physician - Primary Care Member Role: PCP Address: Address: [address] [place] [id number] Name: Komal Goodrich Position: [facility] Outreach Member Role: Lifetime Consulting Physician Name: Godfrey Cano Position: [facility] RN Member Role: Primary Care Nurse Name: Anette Miranda RN Position: [facility] Onco RN Member Role: Primary Care Nurse Care Team Related Persons Name: DIOMEDES WARNER Address: [address] [place] [address] Name: MOO HOWELL Address: home [address] [place] [address] Name: MARLON GENTILE
--- OUTSIDE RECORDS SUMMARY | 2024-03-17 13:41 | XMS_ITS | Continuity of Care Document ---
Author Organization [facility] Address [address] [place] [address]- Care Team Providers Care Superintendent Institution Name Role Phone Juan Manuel LIM, Kristen Acosta Primary Care Physic juan alberto Encounter [facility] Date(s): 05/09/23 - 06/16/23 [facility] [address] [place] [address]- Attending Physician: Not on Staff, Attending MD Allergies, Adverse Reactions, Alerts Substance Reaction Severity Status morphine hives, SOB Active penicillins hive Active Wellbutrin rash Active contrast media (iodine-based) itching throughout body Active Reglan Active cannabis (Schedule I substance) itching/vomiting Active Other Environmental Allergy mercury-fillings Active Immunizations Given and Recorded Vaccine Date Status Refusal Reason pneumococcal 20-valent conjugate vaccine 05/30/22 Recorded [id number]-PkP-[id number] 12y+ bivalent booster vax 05/12/22 Recorded influenza [...] vaccine, inactivated 04/26/09 Arnoldo rded SARS-CoV-2 mRNA (jotoynv-ovad-qeytb) vax 03/10/22 Recorded SARS-CoV-2 mRNA (qijbaeg-simh-cpugr) vax 10/04/21 Recorded SARS-CoV-2 (COVID-19) mRNA BNT-162b2 [...] 1 Refills, Maintenance, 12/11/22 17:34:00 EDT, Tablet, [facility]/pharmacy #[id number], Partial fill upon patient request if the prescription is for a schedule II opioid drug., 155, cm, 10/10/22 13:40:00 E... Start Date: 12/11/22 Status: Ordered baclofen 20 mg oral tablet 20 mg, 1, tablet, By Mouth, 3 times a day, # 270 tablet, Refills 2, Tot. Refills 2, Maintenance, 12/09/22 12:44:00 EDT, Route to Pharmacy Electronically, [facility], Partial fill upon patient request if the prescription is for a... Start Date: 12/09/22 Stop Date: 09/05/23 Status: Ordered bifidobacterium-lactobacillus oral tablet 2 tablet, By Mouth, 2 times a day, [facility] Brand please ([facility] Wellness), # 360 tablet, 3 Refills, Maintenance, [...] 8:43:55 EST Start Date: 07/09/18 Status: Ordered [facility] SENIOR PROBIOTIC [...] Refills, Soft Stop, 03/27/23 18:43:00 EDT, Tablet, [facility]/pharmacy #[id number], Partial [...] 2, Maintenance, Juzo Compression Hose 2 pairs yisaw-uhl-jbyr Soft Knee FF Petite 20-30 mmHg Silicone, Black Stock Code [id number] I I I Part #[id number] Size I I I SKU... Start Date: 03/12/23 Status: Ordered levothyroxine 0.088 mg oral tablet 1 tablet = 88 mcg, By Mouth, Daily, # 90 tablet, 3 Refills, Maintenance, 03/15/23 17:17:00 EDT, Tablet, [facility], Partial fill upon patient request if the prescription is fora schedule II opioid drug., 155, cm, 03/15/23 17:11... Start Date: 03/15/23 Status: Ordered lisinopril 5 mg oral tablet 1, tablet, By Mouth, Daily, # 90 tablet, Refills 3, Tot. Refills 3, Maintenance, 03/15/23 17:16:00 EDT, Route to Pharmacy Electronically, [facility], 155, cm, 03/15/23 17:11:00EDT, Height, 93.4, kg, 11/01/21 16:52:00 EDT, Dry W... Start Date: 03/15/23 Status: Ordered Mapap 500 mg oral capsule See Instructions, TAKE 2 CAPSULES BY MOUTH 4 TIMES A DAY NEEDED FOR PAIN, # 480 capsule, 0 Refills, Maintenance, 03/12/23 9:16:00 EDT, [facility]/pharmacy #[id number], 155, cm, 10/10/22 13:40:00 EST, Height, 93.4, kg, 11/01/21 16:52:00 EDT, Dry Weight Start Date: 03/12/23 Status: Ordered Power [place] Lift with [place] split-leg sling Power [place] Lift with [place] split-leg sling, See Instructions, # 1 each, [...] 5 Refills, Maintenance, 12/11/22 17:34:00 EDT, Tablet, [facility]/pharmacy #[id number], Partial [...] Role: Primary Care Nurse Address: Address: [address] [place] [address] [address] [place] [address]- Name: Emma Mendoza RN Position: [facility] AMB Nurse Member Role: Primary Care Nurse Name: Juan Manuel LIM, Kristen Acosta Position: [facility] Physician - Primary Care Member Role: PCP Address: Address: [address] [place] [id number] Name: Komal Goodrich Position: [facility] Outreach Member Role: Lifetime Consulting Physician Name: Godfrey Cano Position: [facility] RN Member Role: Primary Care Nurse Name: Anette Miranda RN Position: [facility] RN Member Role: Primary Care Nurse Care Team Related Persons Name: DIOMEDES WARNER Address: home [address] [place] [address] Name: MOO HOWELL Address: [address] [place] [address] Name: MARLON GENTILE
--- OUTSIDE RECORDS SUMMARY | 2024-03-17 13:41 | XMS_ITS | Continuity of Care Document ---
Author Organization [facility] Address [address] [place] [address]- Care Team Providers Care Gmat Instructor Name Role Phone Juan Manuel LIM, Kristen Acosta Primary Care Physic juan alberto [facility]): 01/04/24 - 02/03/24 [facility] [address] [place] [address]- Allergies, Adverse Reactions, Alerts Substance Reaction Severity Status morphine hives, SOB Active penicillins hive Active Wellbutrin rash Active Reglan Active cannabis (Schedule I substance) itching/vomiting Active Other Environmental Allergy mercury-fillings Active contrast media (iodine-based) itching throughout body Active Immunizations Given and Recorded Vaccine Date Status Refusal Reason SARS-CoV-2(COVID-19)mRNA-LNP vac([id number]) 10/19/23 Recorded SARS-CoV-2(COVID-19)mRNA-LNP vac(ifi515) 07/03/23 Recorded RSV vaccine preF3, recombinant 05/19/23 [...] influenza virus vaccine, inactivated 04/26/09 Arnoldo rded [id number] 12y+ bivalent booster vax 01/23/23 Recorded [id number]-TtV-3wIOG 12y+ bivalent booster vax 05/12/22 Recorded pneumococcal 20-valent conjugate vaccine 05/30/22 Recorded SARS-CoV-2 mRNA (udlsvcp-xihv-ebpny) vax 03/10/22 Recorded SARS-CoV-2 mRNA (mvefyyg-rioc-gspfp) vax 10/04/21 Recorded SARS-CoV-2 (COVID-19) mRNA BNT-162b2 [...] 1 Refills, Maintenance, 08/01/23 13:53:00 EST, Tablet, [facility]/pharmacy #[id number], Partial [...] 09/05/23 12:44:00 EST, Route to Pharmacy Electronically, [facility], Partial fill upon patient req... Start Date: 09/05/23 Stop Date: 06/01/24 Status: Ordered baclofen 20 mg oral tablet 20 mg, 1, tablet, By Mouth, 3 times a day, for 90 days, # 270 tablet, Refills 1, Tot. Refills 1, Hard Stop 06/25/24 10:31:00 EST, 12/28/23 10:31:00 EDT, [facility], [facility] [...] 12:44:00 EST, [id number] Partial fill upon patient request if the pre... Start Date: 09/05/23 Stop Date: 06/01/24 Status: Ordered bifidobacterium-lactobacillus oral tablet 2 tablet, By Mouth, 2 times a day, [facility] Brand please ([facility]), # 360 tablet, 3 Refills, Maintenance, 08/11/21 17:02:00 EST, Tablet, [facility]/pharmacy #[id number], Partial fill upon patient request if the prescription is for a schedule II opioid drug., 2... Start Date: 08/11/21 Stop Date: 08/06/22 Status: Ordered calcium carbonate 600 mg oral tablet 1 tablet = 600 mg, By Mouth, 2 times a day, # 180 tablet, 2 Refills, Maintenance, 01/06/23 14:02:00EDT, Tablet, [facility]/pharmacy #[id number], Partial fill upon patient request if the prescription is for a schedule II opioid drug., 155, cm, 02/23/22 8:04:00 EDT... Start Date: 01/06/23 Stop Date: 10/03/23 Status: Ordered Centrum Silver Ultra Women's oral tablet 1 tablet, By Mouth, Daily, 0 Refills, Maintenance, 07/09/18 8:43:55 EST Start Date: 07/09/18 Status: Ordered [facility] SENIOR PROBIOTIC CAPSULE TAKE 2 CAPSULES BY MOUTH TWICE A DAY Start Date: 11/01/21 Status: Ordered [facility] Senior Probiotic Capsule [facility] Senior Probiotic Capsule, See Instructions, [...] 450 mL, 5 Refills, 03/02/22 8:08:00 EDT, [facility]/pharmacy #[id number], 155, cm, 02/23/22 8:04:00 [...] Refills, Soft Stop, 03/27/23 18:43:00 EDT, Tablet, [facility]/pharmacy #[id number], Partial fill upon patient request if the prescription is for a schedule II opioid... Start Date: 03/27/23 Status: Ordered fluconazole 150 mg oral tablet 1 tablet = 150 mg, By Mouth, Every week, # 4 tablet, 1 Refills, Soft Stop, 05/26/22 8:59:00 EDT, Tablet, [facility]/pharmacy #[id number], [...] 10:30:00 EDT, Route to Pharmacy Electronically, [facility], Partialfill upon patient request if the [...] 2, Maintenance, Juzo Compression Hose 2 pairs uuutr-eok-rexk Soft Knee FF Petite 20-30 mmHg Silicone, Black Stock Code [id number] I I I Part #[id number] Size I I I SKU... Start Date: 03/12/23 Status: Ordered levothyroxine 0.088 mg oral tablet 1 tablet = 88 mcg, By Mouth, Daily, # 90 tablet, 1 Refills, Maintenance, 10/01/23 17:11:00 EST, Tablet, [facility]/pharmacy #[id number], Partial fill upon patient request if the prescription is for a schedule II opioid drug., 155, cm, 05/28/23 11:02:00 EDT, Height... Start Date: 10/01/23 Status: Ordered lisinopril 5 mg oral tablet 1, tablet, By Mouth, Daily, # 90 tablet, Refills 1, Tot. Refills 1, Maintenance, 10/01/23 17:15:00 EST, Route to Pharmacy Electronically, [facility]/pharmacy #[id number], 155, cm, 05/28/23 11:02:00 EDT, Height, 93.4, kg, 11/01/21 16:52:00 EDT, Dry Weight Start Date: 10/01/23 Status: Ordered Mapap 500 mg oral capsule See Instructions, TAKE 2 CAPSULES BY MOUTH 4 TIMES A DAY NEEDED FOR PAIN, # 480 capsule, 0 Refills, Maintenance, 11/12/23 15:45:00 EDT, [facility]/pharmacy #[id number], 155, cm, 05/28/23 11:02:00 EDT, Height Start Date: 11/12/23 Status: Ordered Power Virginia Lift with [place] split-leg sling Power [place] Lift with [place] split-leg sling, See Instructions, # 1 each, [...] Care Nurse Address: Address: [address] [facility] [place] [address]- [place] Name: Emma Mendoza RN Position: [facility] AMB Nurse Member Role: Primary Care Nurse Name: Kristen Zambrano MD Position: [facility] Physician - Primary Care Member Role: PCP Address: Address: [address] [place] [address]- [place] Name: Anette Soler RN Position: [facility] Onco RN Member Role: Primary Care Nurse Name: Komal Goodrich Position: [facility] Outreach Member Role: Lifetime Consulting Physician Name: Godfrey Cano Position: [facility] RN Member Role: Primary Care Nurse Care Team Related Persons Name: DIOMEDES WARNER Address: home [address] [place] [address] Name: MOO HOWELL Address: home [address] [place] [address] Name: MARLON GENTILE
--- OUTSIDE RECORDS SUMMARY | 2024-03-17 13:41 | XMS_ITS | Continuity of Care Document ---
Author Organization [facility] Address [address] [place] [address]- Care Team Providers Care Sample Stitcher Name Role Phone Juan Manuel LIM, Kristen Acosta Primary Care Physic juan alberto Encounter [facility] Date(s): 10/01/23 - 10/31/[address] [address]- Allergies, Adverse Reactions, Alerts Substance Reaction Severity Status morphine hives, SOB Active Wellbutrin rash Active contrast media (iodine-based) itching throughout body Active penicillins hive Active Reglan Active cannabis (Schedule I substance) itching/vomiting Active Other Environmental Allergy mercury-fillings Active Immunizations Given and Recorded Vaccine Date Status Refusal Reason SARS-CoV-2(COVID-19)mRNA-LNP vac([id number]) 10/19/23 Recorded SARS-CoV-2(COVID-19)mRNA-LNP vac(mch212) 07/03/23 Recorded RSV vaccine preF3, recombinant 05/19/23 [...] influenza virus vaccine, inactivated 04/26/09 Arnoldo rded [id number]-MdO-5aWAV 12y+ bivalent booster vax 01/23/23 Recorded KQKI-JdW-3zBWI 12y+ bivalent booster vax 05/12/22 Recorded pneumococcal 20-valent conjugate vaccine 05/30/22 Recorded SARS-CoV-2 mRNA (wjytneb-bqxl-swzmb) vax 03/10/22 Recorded SARS-CoV-2 mRNA (rltnmhe-hjba-nprbu) vax 10/04/21 Recorded SARS-CoV-2 (COVID-19) mRNA BNT-162b2 [...] Refills, Maintenance, 08/01/23 13:53:00 EST, Tablet, [facility]/pharmacy #[id number], Partial fill upon patient request if the [...] 12:44:00 EST, Route to Pharmacy Electronically, [facility], Partial fill upon patient req... Start Date: 09/05/23 Stop Date: 06/01/24 Status: Ordered baclofen 20 mg oral tablet 20 mg, 1, tablet, By Mouth, 3 times a day, # 270 tablet, Refills 2, Tot. Refills 2, Maintenance, 06/01/24 12:44:00 EDT, Route to Pharmacy Electronically, [facility]/pharmacy #[id number], Partial fill upon patientrequest if the prescription is for a schedule II op... Start Date: 06/01/24 Stop Date: 02/26/25 Status: Ordered baclofen 20 mg oral tablet 20 mg, 1, tablet, By Mouth, 3 times a day, for 90 days, # 270 tablet, Refills 2, Tot. Refills 2, Hard Stop 06/01/24 12:44:00 EDT, 09/05/23 12:44:00 EST, Route to Pharmacy Electronically, [facility]/pharmacy#[id number], Partial fill upon patient request if the pre... Start Date: 09/05/23 Stop Date: 06/01/24 Status: Ordered bifidobacterium-lactobacillus oral tablet 2 tablet, By Mouth, 2 times a day, [facility] Brand please ([facility]), # 360 tablet, 3 Refills, Maintenance, 08/11/21 17:02:00 EST, Tablet, [facility]/pharmacy #[id number], Partial fill upon patient request if the prescription is for a schedule II opioid drug., 2... Start Date: 08/11/21 Stop Date: 08/06/22 Status: Ordered calcium carbonate 600 mg oral tablet 1 tablet = 600 mg, By Mouth, 2 times a day, # 180 tablet, 2 Refills, Maintenance, 01/06/23 14:02:00EDT, Tablet, [facility]/pharmacy #[id number], Partial fill upon patient request if the prescription is for a schedule II opioid drug., 155, cm, 02/23/22 8:04:00 EDT... Start Date: 01/06/23 Stop Date: 10/03/23 Status: Ordered Centrum Silver Ultra Women's oral tablet 1 tablet, By Mouth, Daily, 0 Refills, Maintenance, 07/09/18 8:43:55 EST Start Date: 07/09/18 Status: Ordered [facility] SENIOR PROBIOTIC CAPSULE TAKE 2 CAPSULES BY MOUTH TWICE A DAY Start Date: 11/01/21 Status: Ordered [facility] Senior Probiotic Capsule [facility] Senior Probiotic Capsule, See Instructions, # 180 [...] mL, 5 Refills, 03/02/22 8:08:00 EDT, [facility]/pharmacy #[id number], 155, cm, 02/23/22 8:04:00 EDT, Height, [...] Soft Stop, 03/27/23 18:43:00 EDT, Tablet, [facility]/pharmacy #[id number], Partial fill upon patient request if the prescription is for a schedule II opioid... Start Date: 03/27/23 Status: Ordered fluconazole 150 mg oral tablet 1 tablet = 150 mg, By Mouth, Every week, # 4 tablet, 1 Refills, Soft Stop, 05/26/22 8:59:00 EDT, Tablet, [facility]/pharmacy #[id number], Partial fill upon patient request if [...] 07/03/23 1:01:00 EST, Route to Pharmacy Electronically, [facility], 155, cm, 05/28/23 [...] Maintenance,02/15/23 7:44:00 EDT, [facility] to [facility], Partial fill upon patient request if the prescription is for... Start Date: 02/15/23 Stop Date: 11/12/23 Status: Ordered Juzo Compression Hose Juzo Compression Hose, See Instructions, # 2 each, Refills 2, Tot. Refills 2, Maintenance, Juzo Compression Hose 2 pairs dnbtd-xsc-wymm Soft Knee FF Petite 20-30 mmHg Silicone, Black Stock Code [id number] I I I Part #[id number] Size I I I SKU... Start Date: 03/12/23 Status: Ordered levothyroxine 0.088 mg oral tablet 1 tablet = 88 mcg, By Mouth, Daily, # 90 tablet, 1 Refills, Maintenance, 10/01/23 17:11:00 EST, [id number] Partial fill upon patient request if the prescription is for a schedule II opioid drug., 155, cm, 05/28/23 11:02:00 EDT, Height... Start Date: 10/01/23 Status: Ordered lisinopril 5 mg oral tablet 1, tablet, By Mouth, Daily, # 90 tablet, Refills 1, Tot. Refills 1, Maintenance, 10/01/23 17:15:00 EST, Route to Pharmacy Electronically, [facility]/pharmacy #[id number], 155, cm, 05/28/23 11:02:00 EDT, Height, 93.4, kg, 11/01/21 16:52:00 EDT, Dry Weight Start Date: 10/01/23 Status: Ordered Mapap 500 mg oral capsule See Instructions, TAKE 2 CAPSULES BY MOUTH 4 TIMES A DAY NEEDED FOR PAIN, # 480 capsule, 0 Refills, Maintenance, 10/01/23 17:46:00 EST, [facility]/pharmacy #[id number], 155, cm, 05/28/23 11:02:00 EDT, Height, 93.4, kg, 11/01/21 16:52:00 EDT, Dry Weight Start Date: 10/01/23 Status: Ordered Power Virginia Lift with [place] split-leg sling Power Virginia Lift with [place] split-leg sling, See Instructions, # 1 each, [...] Refills, Maintenance, 08/08/23 18:05:00 EST, Tablet, [facility]/pharmacy #[id number], Partial fill upon patient request if... [...] 2:50:00 EDT, 11/23/23 2:50:00 EDT, Tablet, [facility]/pharmacy #[id number], Part[place]... Start Date: 11/23/23 Stop Date: 03/14/24 Status: Ordered Provigil 200 mg oral tablet 1 tablet = 200 mg, By Mouth, 2 times a day, for 28 days, takes in am and lunchtime brand name only - dispense as written Brand name only, # 56 tablet, 3 Refills, Hard Stop 11/23/23 2:50:00 EDT, 08/03/23 2:50:00 EST, Tablet, [facility]... Start Date: 08/03/23 Stop [...] Team Personnel Name: Juliann Rich RN Position: [facility] RN Member Role: Primary Care Nurse Name: Elsa Allen NP Position: [facility] Outreach Member Role: Primary Care Nurse Address: Address: [address] [place] [address] [place] [address]- Name: Emma Mendoza RN Position: [facility] Nurse Member Role: Primary Care Nurse Name: Juan Manuel LIM, Kristen Acosta Position: [facility] Physician - Primary Care Member Role: PCP Address: Address: [address] [place], [place] [address] Name: Komal Goodrich Position: [facility] Outreach Member Role: Lifetime Consulting Physician Name: Godfrey Cano Position: [facility] RN Member Role: Primary Care Nurse Name: Anette Miranda RN Position: [facility] Onco RN Member Role: Primary Care Nurse Care Team Related Persons Name: DIOMEDES WARNER Address: home [address] [place] [address] Name: MOO HOWELL Address: home [address] [place] [address] Name: MARLON GENTILE
--- OUTSIDE RECORDS SUMMARY | 2024-03-17 13:41 | XMS_ITS | Continuity of Care Document ---
Author Organization [facility] Address [address] [place] [address]- Care Team Providers Care Communications Project Manager Name Role Phone Juan Manuel LIM, Kristen Acosta Primary Care Physic juan alberto [facility] Date[facility]): 10[facility]24[facility]21 - 11/23/21 [facility] [address] [place] [address] Allergies, Adverse Reactions, Alerts [...] 04/19/22 17:46:00 EDT, 08/22/21 17:46:00 EST, Capsule, [facility]/pharmacy #[id number], Partial fill upon patient request if the prescription is for a schedul... Start Date: 08/22/21 Stop Date: 04/19/22 Status: Ordered ascorbic acid 1000 mg oral tablet 1 tablet = 1,000 mg, By Mouth, 2 times a day, # 90 tablet, 1 Refills, Maintenance, 08/11/21 17:03:00 EST, Tablet, [facility]/pharmacy #[id number], Partial fill upon patient request if the prescription is for a schedule II opioid drug., 153, cm, 06/27/21 7:47:00 ES... Start Date: 08/11/21 Status: Ordered baclofen 20 mg oral tablet 20 mg, 1, tablet, By Mouth, 3 times a day, # 360 tablet, Refills 1, Tot. Refills 1, Maintenance, 08/02/21 14:09:00 EST, Route to Pharmacy Electronically, [facility], Partial fill upon patient request if the prescription is for a... Start Date: 08/02/21 Status: Ordered bifidobacterium-lactobacillus oral tablet 2 tablet, By Mouth, 2 times a day, [facility] Brand please ([facility]), # 360 tablet, 3 Refills, [...] 01/09/22 14:17:00 EDT, 07/13/21 14:17:00 EST, Tablet, [facility], Partial fill upon patient request [...] STILL NEEDED, # 450 mL, 0 Refills, [id number], 153, cm, 08/30/21 16:43:00 EST, Height Start [...] 07/13/21 14:09:00 EST, Tablet, [facility], Partial [...] 07/13/21 Status: Ordered Power Virginia Lift with [place] split-leg sling Power Virginia Lift with [place] split-leg sling, See Instructions, # 1 each, [...] 1 Refills, Maintenance, 07/14/21 17:19:00 EST, Tablet, [facility], Partial fill upon patient request if t... Start Date: 07/14/21 Stop Date: 09/08/21 Status: Ordered Turmeric = 750 mg, By Mouth, 2 times a day, 0 Refills, Maintenance, 07/09/18 8:47:35 EST Start Date: 07/09/18 Status: Ordered Vitamin D3 2000 intl units oral capsule 1 capsule, By Mouth, Daily, # 90 capsule, 1 Refills, 08/11/21 17:04:00 EST, [facility]/pharmacy #[id number], 153, cm, 06/27/21 7:47:00 EST, [...]
--- OUTSIDE RECORDS SUMMARY | 2024-03-17 13:41 | XMS_ITS | Continuity of Care Document ---
Author Organization [facility] Address [address] [place] [address]- Care Team Providers Care Biodiesel Processing Technician Name Role Phone Juan Manuel LIM, Kristen Acosta Primary Care Physic jua nalberto [facility] Date(s): 08/07/23 - 09/06/23 [facility] [address] [place] [address]- Allergies, Adverse Reactions, Alerts Substance Reaction Severity Status morphine hives, SOB Active penicillins hive Active Wellbutrin rash Active Reglan Active cannabis (Schedule I substance) itching/vomiting Active Other Environmental Allergy mercury-fillings Active contrast media (iodine-based) itching throughout body Active Immunizations Given and Recorded Vaccine Date Status Refusal Reason pneumococcal 20-valent conjugate vaccine 05/30/22 Recorded DIAF-RuA-3kXGS 12y+ bivalent booster vax 05/12/22 Recorded influenza [...] vaccine, inactivated 04/26/09 Arnoldo rded SARS-CoV-2 mRNA (cdxgava-dhmd-btpmq) vax 03/10/22 Recorded SARS-CoV-2 mRNA (cshytkl-tdxd-mdzuz) vax 10/04/21 Recorded SARS-CoV-2 (COVID-19) mRNA BNT-162b2 [...] 1 Refills, Maintenance, 08/01/23 13:53:00 EST, Tablet, [facility]/pharmacy #[id number], Partial fill upon patient request if the prescription is for a schedule II opioid drug., 155, cm, 05/28/23 11:02:00 E... Start Date: 08/01/23 Status: Ordered baclofen 20 mg oral tablet 20 mg, 1, tablet, By Mouth, 3 times a day, for 90 days, # 270 tablet, Refills 2, Tot. Refills 2, Hard Stop 06/01/24 12:44:00 EDT, 09/05/23 12:44:00 EST, Route to Pharmacy Electronically, [facility], Partial fill upon patient req... Start Date: 09/05/23 Stop Date: 06/01/24 Status: Ordered baclofen 20 mg oral tablet 20 mg, 1, tablet, By Mouth, 3 times a day, # 270 tablet, Refills 2, Tot. Refills 2, Maintenance, 09/05/23 12:44:00 EST, Route to Pharmacy Electronically, [facility]/pharmacy #[id number], Partial fill upon patientrequest if [...] DAY Start Date: 11/01/21 Status: Ordered [facility] Senior Probiotic Capsule [facility] Senior Probiotic Capsule, See Instructions, # [...] EST, Route to Pharmacy Electronically, [facility], 155, cm, 05/28/23 [...] EDT, Route to Pharmacy Electronically, [facility], Partial fill upon patient request if the prescription is for... Start Date: 02/15/23 Stop Date: 11/12/23 Status: Ordered Juzo Compression Hose Juzo Compression Hose, See Instructions, # 2 each, Refills 2, Tot. Refills 2, Maintenance, Juzo Compression Hose 2 pairs sqgav-fpc-uaee Soft Knee FF Petite 20-30 mmHg Silicone, Black Stock Code [id number] I I I Part #[id number] Size I I I SKU... Start Date: 03/12/23 Status: Ordered levothyroxine 0.088 mg oral tablet 1 tablet = 88 mcg, By Mouth, Daily, # 90 tablet, 3 Refills, Maintenance, 08/01/23 13:54:00 EST, Tablet, [facility]/pharmacy #[id number], Partial fill upon patient request if the prescription is for a schedule II opioid drug., 155, cm, 05/28/23 11:02:00 EDT, Height... Start Date: 08/01/23 Status: Ordered lisinopril 5 mg oral tablet 1, tablet, By Mouth, Daily, # 90 tablet, Refills 3, Tot. Refills 3, Maintenance, 03/15/23 17:16:00 EDT, Route to Pharmacy Electronically, [facility], 155, cm, 03/15/23 17:11:00EDT, Height, 93.4, kg, 11/01/21 16:52:00 EDT, Dry W... Start Date: 03/15/23 Status: Ordered Mapap 500 mg oral capsule See Instructions, TAKE 2 CAPSULES BY MOUTH 4 TIMES A DAY NEEDED FOR PAIN, # 480 capsule, 0 Refills, Maintenance, 08/01/23 13:54:00 EST, [facility]/pharmacy #[id number], 155, cm, 05/28/23 11:02:00 EDT, Height, 93.4, kg, 11/01/21 16:52:00 EDT, Dry Weight Start Date: 08/01/23 Status: Ordered Power Virginia Lift with [place] split-leg sling Power [place] Lift with [place] split-leg sling, See Instructions, # 1 each, [...] 0 Refills, Maintenance, 08/08/23 18:05:00 EST, Tablet, [facility]/pharmacy #[id number], [...] EDT, 08/03/23 2:50:00 EST, Tablet, [facility]... Start Date: 08/03/23 Stop Date: 11/23/23 [...] 90 capsule, 1 Refills, 12/11/22 15:16:00 EDT, [facility]/pharmacy #[id number], 155, cm, 10/10/22 13:40:00 EST, Height, 93.4, kg, 11/01/21 16:52:00 EDT, Dry Weight Start Date: 12/11/22 Status: Ordered Xarelto 20 mg oral tablet See Instructions, TAKE 1 TABLET DAILY AT SUPPER, # 90 tablet, 3 Refills, Maintenance, 01/17/23 9:37:00 EDT, [facility], 155, cm, 10/10/22 13:40:00 [...] Nurse Name: Alejandro CENTENO, Elsa Peterson Position: [facility] Outreach Member Role: Primary Care Nurse Address: Address: [address] [place] [address]- [place] Name: Emma Mendoza RN Position: [facility] AMB Nurse Member Role: Primary Care Nurse Name: Juan Manuel LIM, Kristen Acosta Position: [facility] Physician - Primary Care Member Role: PCP Address: Address: [address] [place] [id number]- Name: Komal Goodrich Position: [facility] Outreach Member Role: Lifetime Consulting Physician Name: Godfrey Cano Position: [facility] RN Member Role: Primary Care Nurse Name: Anette Miranda RN Position: [facility] Onco RN Member Role: Primary Care Nurse Care Team Related Persons Name: DIOMEDES WARNER Address: home [address] [place] [address] Name: MOO HOWELL Address: [address] [place] [address] Name: MARLON GENTILE
--- OUTSIDE RECORDS SUMMARY | 2024-03-17 13:41 | XMS_ITS | Continuity of Care Document ---
Author Organization [facility] [employer] Address [address] [place] [address]- Care Team Providers Care Hair Weaver Name Role Phone Juan Manuel LIM, Kristen Acosta Primary Care Physic juan alberto [facility] Date[facility]s): 09/[facility]22 - 10/11/22 [facility] [address] [place] [address]- Allergies, Adverse Reactions, Alerts Substance Reaction Severity Status morphine hives, SOB Active Wellbutrin rash Active Reglan Active contrast media (iodine-based) itching throughout body Active penicillins hive Active cannabis (Schedule I substance) itching/vomiting Active Other Environmental Allergy mercury-fillings Active Immunizations Given and Recorded Vaccine Date Status Refusal Reason pneumococcal 20-valent conjugate vaccine 05/30/22 Recorded [id number] 12y+ bivalent booster vax 05/12/22 Recorded influenza [...] vaccine, inactivated 04/26/09 Arnoldo rded SARS-CoV-2 mRNA (qhuenmg-sluw-sjmkz) vax 03/10/22 Recorded SARS-CoV-2 mRNA (clikifm-mdin-owtib) vax 10/04/21 Recorded SARS-CoV-2 (COVID-19) mRNA BNT-162b2 [...] tablet, 0 Refills, Maintenance, 10/05/22 9:35:00EST, Tablet, [facility]/pharmacy #[id number], Partial fill upon patient request if the prescription is for a schedule II opioid drug., 155, cm, 09/26/22 14:02:00 ES... Start Date: 10/05/22 Status: Ordered baclofen 20 mg oral tablet 20 mg, 1, tablet, By Mouth, 3 times a day, # 270 tablet, Refills 2, Tot. Refills 2, Maintenance, 12/09/22 12:44:00 EDT, Route to Pharmacy Electronically, [facility], Partial fill upon patient request if the prescription is for a... Start Date: 12/09/22 Stop Date: 09/05/23 Status: Ordered baclofen 20 mg oral tablet 20 mg, 1, tablet, By Mouth, 3 times a day, for 90 days, # 270 tablet, Refills 2, Tot. Refills 2, Hard Stop 12/09/22 12:44:00 EDT, 03/14/22 12:44:00 EDT, [id number] Partial fill upon patient request if the pre... Start Date: 03/14/22 Stop Date: 12/09/22 Status: Ordered bifidobacterium-lactobacillus oral tablet 2 tablet, By Mouth, 2 times a day, [facility] Brand please (Senior Wellness), [...] tablet, 2 Refills, Maintenance, 01/06/23 14:02:00EDT, Tablet, [facility]/pharmacy #[id number], Partial [...] 8:43:55 EST Start Date: 07/09/18 Status: Ordered [facility] SENIOR PROBIOTIC CAPSULE TAKE 2 CAPSULES BY MOUTH TWICE A DAY Start Date: 11/01/21 Status: Ordered [facility] Senior Probiotic Capsule [facility] Senior Probiotic Capsule, See [...] 450 mL, 5 Refills, 03/02/22 8:08:00 EDT, [facility]/pharmacy #[id number], 155, cm, 02/23/22 [...] Refills, Soft Stop, 05/26/22 8:59:00 EDT, Tablet, [facility]/pharmacy #[id number], Partial [...] Tot. Refills 2, Maintenance, 20-30mmghg FF Petite (short),Skwkq-rce-iuiy, soft knee, black silicone Stock code [id number] Part #[id number], Size III. [facility] [id number], 12/07/21 11:32:00 EDT,... Start Date: 12/07/21 Status: Ordered levothyroxine 0.088 mg oral tablet 1 tablet = 88 mcg, By Mouth, Daily, # 90 tablet, 1 Refills, Maintenance, 09/08/22 14:26:00 EST, Tablet, [facility], Partial fill upon patient request if the prescription is fora schedule II opioid drug., 155, cm, 07/12/22 14:10... Start Date: 09/08/22 Status: Ordered lisinopril 5 mg oral tablet 5 mg, 1, tablet, By Mouth, Daily, # 90 tablet, Refills 3, Tot. Refills 3, Maintenance, 02/24/22 15:53:00 EDT, Route to Pharmacy Electronically, [facility]/pharmacy #[id number], Partial fill upon patient request if the prescription is for a schedule II opioid drug.... Start Date: 02/24/22 Status: Ordered lisinopril 5 mg oral tablet See Instructions, TAKE 1 TABLET DAILY, # 90 tablet, Refills 1, Maintenance, 09/24/22 19:24:00 EST, Instructions Replace Required Details, Route to Pharmacy Electronically, [facility], 155, cm, 07/12/22 14:10:00 EST, Height, 93.4, k... Start Date: 09/24/22 Status: Ordered Mapap 500 mg oral capsule See Instructions, TAKE 2 CAPSULES BY MOUTH 4 TIMES A DAY NEEDED FOR PAIN, # 480 capsule, 3 Refills, Maintenance, 06/04/22 16:03:00 EDT, [facility] STORE [id number], 155, cm, 05/25/22 13:44:00 EDT, Height, 93.4, kg, 11/01/21 16:52:00 EDT, Dry Weight Start Date: 06/04/22 Status: Ordered Power [place] Lift with [place] split-leg sling Power [place] Lift with [place] split-leg sling, See Instructions, # 1 each, [...] 11/01/22 17:46:00 EDT, 07/12/22 17:46:00 EST, Tablet, [facility]/pharmacy #[id number], Partial fill upon pa... Start Date: 07/12/22 Stop Date: 11/01/22 Status: Ordered Provigil 200 mg oral tablet 1 tablet = 200 mg, By Mouth, 2 times a day, takes in am and lunchtime brand name only - dispense aswritten, # 56 tablet, 5 Refills, Maintenance, 10/05/22 17:39:00 EST, Tablet, [facility]/pharmacy #[id number], [...] 18:25:00 EDT, 07/05/22 18:25:00 EST, Tablet, [facility], Parti... Start Date: 07/05/22 [...] 90 capsule, 2 Refills, 02/28/22 8:13:00 EDT, [facility]/pharmacy #[id number], 155,cm, 02/23/22 8:04:00 EDT, Height, 93.4, kg, 11/01/21 16:52:00 EDT, Dry Weight Start Date: 02/28/22 Status: Ordered Xarelto 20 mg oral tablet 1 tablet = 20 mg, By Mouth, Daily at supper, # 90 tablet, 3 Refills, Maintenance, 02/01/22 12:42:00EDT, Tablet, [facility], Partial fill upon [...] Role: Primary Care Nurse Address: Address: [address] [place] [address] [address] [place] [address]- [place] Name: Emma Mendoza RN Position: [facility] RN Member Role: Primary Care Nurse Name: Juan Manuel LIM, Kristen Acosta Position: [facility] Primary Care Physician Member Role: PCP Address: Address: [address] [place] [id number]- Name: Jade Medina Position: [facility] RN Member Role: Primary Care Nurse Name: Komal Goodrich Position: [facility] Outreach Member Role: Lifetime Consulting Physician Name: Godfrey Cano Position: [facility] RN Member Role: Primary Care Nurse Name: Anette Miranda RN Position: [facility] Onco RN Member Role: Primary Care Nurse Care Team Related Persons Name: DIOMEDES WARNER Address: home [address] [place] [address] Name: MOO HOWELL Address: home [address] [place] [address] Name: MARLON GENTILE
--- OUTSIDE RECORDS SUMMARY | 2024-03-17 13:41 | XMS_ITS | Continuity of Care Document ---
Author Organization [facility] Address [address] [place] [address]- Care Team Providers Care Reverse Logistics Analyst Name Role Phone Juan Manuel LIM, Kristen Acosta Primary Care Physic juan alberto Encounter [facility] Date(s): 09/05/21 - 10/05/21 [facility] [address] [place] [id number] Allergies, Adverse Reactions, [...] 1 Refills, Maintenance, 08/11/21 17:03:00 EST, Tablet, [facility]/pharmacy #[id number], Partial fill upon patient request if the prescription is for a schedule II opioid drug., 153, cm, 06/27/21 7:47:00 ES... Start Date: 08/11/21 Status: Ordered baclofen 20 mg oral tablet 20 mg, 1, tablet, By Mouth, 4 times a day, # 360 tablet, Refills 1, Tot. Refills 1, Maintenance, 08/02/21 14:09:00 EST, Route to Pharmacy Electronically, [facility], Partial fill upon [...] 01/09/22 14:17:00 EDT, 07/13/21 14:17:00 EST, Tablet, [facility], Partial fill upon patient request if the prescription is for a schedul... Start Date: 07/13/21 Stop Date: 01/09/22 Status: Ordered calcium carbonate 600 mg oral tablet 1 tablet = 600 mg, By Mouth, 2 times a day, # 180 tablet, 1 Refills, Maintenance, 01/09/22 14:17:00EDT, Tablet, [facility]/pharmacy #[id number], Partial fill [...] Refills, SoftStop, 09/01/21 9:49:00 EST, REC Powder, [facility]/pharmacy #[id number], Partial fill upon [...] 08/02/21 14:08:00 EST, Route to Pharmacy Electronically, [facility], Partial fill upon patient request if the prescription is... Start Date: 08/02/21 Status: Ordered levothyroxine 0.088 mg oral tablet 1 tablet = 88 mcg, By Mouth, Daily, # 90 tablet, 1 Refills, Maintenance, 07/13/21 14:09:00 EST, Tablet, [facility], Partial fill upon patient request if the prescription is fora schedule II opioid drug., 153, cm, 06/27/21 7:47:... Start Date: 07/13/21 Status: Ordered lisinopril 5 mg oral tablet 5 mg, 1, tablet, By Mouth, Daily, # 90 tablet, Refills 1, Tot. Refills 1, Maintenance, 07/13/21 14:08:00 EST, Route to Pharmacy Electronically, [facility], Partial fill upon patient request if the prescription is for a schedule... Start Date: 07/13/21 Status: Ordered Power Virginia Lift with [place] split-leg sling Power [place] Lift with [place] split-leg sling, See Instructions, # 1 each, [...] 1 Refills, Maintenance, 07/14/21 17:19:00 EST, Tablet, [facility] [...] 90 capsule, 1 Refills, 08/11/21 17:04:00 EST, [facility]/pharmacy #[id number], 153, cm, 06/27/21 7:47:00 EST, [...]
--- OUTSIDE RECORDS SUMMARY | 2024-03-17 13:41 | XMS_ITS | Continuity of Care Document ---
Author Organization [facility] Address [address] [place] [address]- Care Team Providers Care Retail Manager Name Role Phone Juan Manuel LIM, Kristen Acosta Primary Care Physic juan alberto Encounter [facility] Date(s): 09/08/22 - 10/08/22 [facility] [address] [place] [address]- Allergies, Adverse Reactions, Alerts Substance Reaction Severity Status morphine hives, SOB Active penicillins hive Active Wellbutrin rash Active Reglan Active cannabis (Schedule I substance) itching/vomiting Active Other Environmental Allergy mercury-fillings Active contrast media (iodine-based) itching throughout body Active Immunizations Given and Recorded Vaccine Date Status Refusal Reason pneumococcal 20-valent conjugate vaccine 05/30/22 Recorded [id number] 12y+ bivalent booster vax 05/12/22 Recorded influenza [...] vaccine, inactivated 04/26/09 Arnoldo rded SARS-CoV-2 mRNA (nzhackt-lagk-wrdok) vax 03/10/22 Recorded SARS-CoV-2 mRNA (ipmtifm-zrzg-yhrxt) vax 10/04/21 Recorded SARS-CoV-2 (COVID-19) mRNA BNT-162b2 [...] tablet, 0 Refills, Maintenance, 10/05/22 9:35:00EST, Tablet, [facility]/pharmacy #[id number], Partial fill upon patient request if the prescription is for a schedule II opioid drug., 155, cm, 09/26/22 14:02:00 ES... Start Date: 10/05/22 Status: Ordered baclofen 20 mg oral tablet 20 mg, 1, tablet, By Mouth, 3 times a day, # 270 tablet, Refills 2, Tot. Refills 2, Maintenance, 12/09/22 12:44:00 EDT, Route to Pharmacy Electronically, [facility], Partial fill upon patient request if the prescription is for a... Start Date: 12/09/22 Stop Date: 09/05/23 Status: Ordered baclofen 20 mg oral tablet 20 mg, 1, tablet, By Mouth, 3 times a day, for 90 days, # 270 tablet, Refills 2, Tot. Refills 2, Hard Stop 12/09/22 12:44:00 EDT, 03/14/22 12:44:00 EDT, [id number] fill upon patient request if the pre... Start Date: 03/14/22 Stop Date: 12/09/22 Status: Ordered bifidobacterium-lactobacillus oral tablet 2 tablet, By Mouth, 2 times a day, [facility] Brand please (Senior Wellness), # 360 tablet, 3 Refills, Maintenance, 08/11/21 17:02:00 EST, Tablet, [facility]/pharmacy #[id number], Partial fill upon patient request if the prescription is for a schedule II opioid drug., 2... Start Date: 08/11/21 Stop Date: 08/06/22 Status: Ordered calcium carbonate 600 mg oral tablet 1 tablet = 600 mg, By Mouth, 2 times a day, # 180 tablet, 2 Refills, Maintenance, 01/06/23 14:02:00EDT, Tablet, [facility]/pharmacy #[id number], Partial fill upon patient request if [...] EST Start Date: 07/09/18 Status: Ordered [facility] SENIOR PROBIOTIC CAPSULE TAKE 2 CAPSULES BY MOUTH TWICE A DAY Start Date: 11/01/21 Status: Ordered [facility] Senior Probiotic Capsule [facility] Senior Probiotic Capsule, See Instructions, # 180 [...] mL, 5 Refills, 03/02/22 8:08:00 EDT, [facility]/pharmacy #[id number], 155, cm, 02/23/22 8:04:00 EDT, Height, [...] Soft Stop, 05/26/22 8:59:00 EDT, Tablet, [facility]/pharmacy #[id number], Partial fill upon patient request if [...] EDT, [facility] Start Date: 01/11/22 Status: Ordered gabapentin [...] Tot. Refills 2, Maintenance, 20-30mmghg FF Petite (short),Wangz-bbx-bped, soft knee, black silicone Stock code [id number] Part #[id number], Size III. [facility] [id number], 12/07/21 11:32:00 EDT,... Start Date: 12/07/21 Status: Ordered levothyroxine 0.088 mg oral tablet 1 tablet = 88 mcg, By Mouth, Daily, # 90 tablet, 1 Refills, Maintenance, 09/08/22 14:26:00 EST, Tablet, [facility], Partial fill upon patient request if the prescription is fora schedule II opioid drug., 155, cm, 07/12/22 14:10... Start Date: 09/08/22 Status: Ordered lisinopril 5 mg oral tablet 5 mg, 1, tablet, By Mouth, Daily, # 90 tablet, Refills 3, Tot. Refills 3, Maintenance, 02/24/22 15:53:00 EDT, Route to Pharmacy Electronically, [facility]/pharmacy #[id number], Partial fill upon patient request if the prescription is for a schedule II opioid drug.... Start Date: 02/24/22 Status: Ordered lisinopril 5 mg oral tablet See Instructions, TAKE 1 TABLET DAILY, # 90 tablet, Refills 1, Maintenance, 09/24/22 19:24:00 EST, Instructions Replace Required Details, Route to Pharmacy Electronically, [facility], 155, cm, 07/12/22 14:10:00 EST, Height, 93.4, k... Start Date: 09/24/22 Status: Ordered Mapap 500 mg oral capsule See Instructions, TAKE 2 CAPSULES BY MOUTH 4 TIMES A DAY NEEDED FOR PAIN, # 480 capsule, 3 Refills, Maintenance, 06/04/22 16:03:00 EDT, [facility] STORE [id number], 155, cm, 05/25/22 13:44:00 EDT, Height, 93.4, [...] 17:46:00 EDT, 07/12/22 17:46:00 EST, Tablet, [facility]/pharmacy #[id number], Partial fill upon pa... Start Date: 07/12/22 Stop Date: 11/01/22 Status: Ordered Provigil 200 mg oral tablet 1 tablet = 200 mg, By Mouth, 2 times a day, takes in am and lunchtime brand name only - dispense aswritten, # 56 tablet, 5 Refills, Maintenance, 10/05/22 17:39:00 EST, Tablet, [facility]/pharmacy #[id number], Partial fill upon patient request if [...] capsule, 2 Refills, 02/28/22 8:13:00 EDT, [facility]/pharmacy #[id number], 155,cm, 02/23/22 8:04:00 EDT, Height, 93.4, kg, 11/01/21 16:52:00 EDT, Dry Weight Start Date: 02/28/22 Status: Ordered Xarelto 20 mg oral tablet 1 tablet = 20 mg, By Mouth, Daily at supper, # 90 tablet, 3 Refills, Maintenance, 02/01/22 12:42:00EDT, Tablet, [facility], Partial fill upon patient [...] Role: Primary Care Nurse Address: Address: [address] [place] [address] [address] [place] [address]- [place] Name: Emma Mendoza RN Position: [facility] RN Member Role: Primary Care Nurse Name: Juan Manuel LIM, Kristen Acosta Position: [facility] Primary Care Physician Member Role: PCP Address: Address: [address] [place] [address]- Name: Jade Medina Position: [facility] RN Member Role: Primary Care Nurse Name: Komal Goodrich Position: [facility] Outreach Member Role: Lifetime Consulting Physician Name: Godfrey Cano Position: [facility] RN Member Role: Primary Care Nurse Name: Anette Miranda RN Position: [facility] Onco RN Member Role: Primary Care Nurse Care Team Related Persons Name: DIOMEDES WARNER Address: home [address] [place] [address] Name: MOO HOWELL Address: [address] [place] [address] Name: MARLON GENTILE
--- OUTSIDE RECORDS SUMMARY | 2024-03-17 13:41 | XMS_ITS | Continuity of Care Document ---
Author Organization [facility] Address [address] [place] [address], [address] [place] [address]- Care Team Providers Care It Business Systems Analyst Name Role Phone Rey CENTENO, Javy Lerma Primary Care Physician [phone] Encounter [facility] Date(s): 02/15/21 - 02/22/21 [facility] [address] [place] [address] Drive, [address] [place] [address]- Attending Physician: Teresa Alonzo MD Referring Physician: Javy Le NP Allergies, [...] Acute 03/18/21 10:20:00 EDT,02/18/21 10:20:00 EDT, Liquid, [facility]/pharmacy #[id number], Partial fill upon patient [...] 10:23:00 EDT, Route to Pharmacy Electronically, [facility]/pharmacy [...] 0 Refills, Maintenance, 02/18/21 10:22:00 EDT,Liquid, [facility]/pharmacy #[id number], Partial fill upon patient [...] 10:23:00 EDT, Route to Pharmacy Electronically, [facility]/pharmacy #[id number] Tablet, Partial fill upon patient r... Start [...]
--- OUTSIDE RECORDS SUMMARY | 2024-03-17 13:41 | XMS_ITS | Continuity of Care Document ---
Author Organization [facility] Address [address] [place] [address]- Care Team Providers Care It Quality Assurance Analyst Name Role Phone Juan Manuel LIM, Kristen Acosta Primary Care Physic juan alberto Encounter [facility] Date(s): 10/09/22 - 11/08/22 [facility] [address] [place] [address]- Allergies, Adverse Reactions, Alerts Substance Reaction Severity Status morphine hives, SOB Active Wellbutrin rash Active contrast media (iodine-based) itching throughout body Active penicillins hive Active Reglan Active cannabis (Schedule I substance) itching/vomiting Active Other Environmental Allergy mercury-fillings Active Immunizations Given and Recorded Vaccine Date Status Refusal Reason pneumococcal 20-valent conjugate vaccine 05/30/22 Recorded [id number]-[id number] 12y+ bivalent booster vax 05/12/22 Recorded influenza [...] vaccine, inactivated 04/26/09 Arnoldo rded SARS-CoV-2 mRNA (npbkcjk-midj-klvwp) vax 03/10/22 Recorded SARS-CoV-2 mRNA (jogitit-nsuh-bliey) vax 10/04/21 Recorded SARS-CoV-2 (COVID-19) mRNA BNT-162b2 [...] 12/09/22 12:44:00 EDT, Route to Pharmacy Electronically, [facility], Partial fill [...] EDT, Route to Pharmacy Electronically, [facility]/pharmacy#[id number], Partial fill upon patient request [...] 01/06/23 14:02:00 EDT, 01/11/22 14:02:00 EDT, Tablet, [facility], [...] 01/11/22 13:45:00 EDT, [facility] Start Date: 01/11/22 Status: Ordered gabapentin 300 [...] Tot. Refills 2, Maintenance, 20-30mmghg FF Petite (short),Gfkwg-ypc-nxns, soft knee, black silicone Stock code [id number] Part #[id number], Size III. [facility] [id number], 12/07/21 11:32:00 EDT,... Start Date: 12/07/21 Status: Ordered levothyroxine 0.088 mg oral tablet 1 tablet = 88 mcg, By Mouth, Daily, # 90 tablet, 1 Refills, Maintenance, 09/08/22 14:26:00 EST, Tablet, [facility], Partial fill upon patient [...] Replace Required Details, Route to Pharmacy Electronically, [facility], 155, cm, 07/12/22 14:10:00 EST, Height, 93.4, k... Start Date: 09/24/22 Status: Ordered Mapap 500 mg oral capsule See Instructions, TAKE 2 CAPSULES BY MOUTH 4 TIMES A DAY NEEDED FOR PAIN, # 480 capsule, 3 Refills, Maintenance, 06/04/22 16:03:00 EDT, [facility] STORE [id number], 155, cm, 05/25/22 13:44:00 EDT, Height, 93.4, kg, 11/01/21 16:52:00 EDT, Dry Weight Start Date: 06/04/22 Status: Ordered Power [place] Lift with S [place] split-leg sling Power [place] Lift with [place] split-leg sling, See Instructions, # 1 each, [...] Maintenance, 02/01/22 12:42:00EDT, Tablet, [facility], Partial fill upon [...] Team Personnel Name: Juliann Rich RN Position: [facility] RN Member Role: Primary Care Nurse Name: Elsa Allen NP Position: Reference Physician Member Role: Primary Care Nurse Address: Address: [address] [place] [address] [address] [place] [address]- Name: Emma Mendoza RN Position: [facility] RN Member Role: Primary Care Nurse Name: Kristen Zambrano MD Position: [facility] Primary Care Physician Member Role: PCP Address: Address: [address] [place] [address]- Name: Jade Medina Position: S RN Member Role: Primary Care Nurse Name: Komal Goodrich Position: [facility] Outreach Member Role: Lifetime Consulting Physician Name: Godfrey Cano Position: [facility] RN Member Role: Primary Care Nurse Name: Anette Miranda RN Position: [facility] Onco RN Member Role: Primary Care Nurse Care Team Related Persons Name: DIOMEDES WARNER Address: [address] [place] [address] Name: MOO HOWELL Address: [address] [place] [address] Name: MARLON GENTILE
--- OUTSIDE RECORDS SUMMARY | 2024-03-17 13:41 | XMS_ITS | Continuity of Care Document ---
Author Organization [facility] Neurology Address [address], [address], [address] [place] [address]- Care Team Providers Care Taxation Accountant Name Role Phone Juan Manuel LIM, Kristen Acosta Primary Care Physic juan alberto Encounter [facility] Date(s): 08/01/23 - 08/31/23 [facility] [address], [address], [address] [place] [id number]- Allergies, Adverse Reactions, Alerts Substance Reaction Severity Status morphine hives, SOB Active penicillins hive Active Wellbutrin rash Active Reglan Active cannabis (Schedule I substance) itching/vomiting Active Other Environmental Allergy mercury-fillings Active contrast media (iodine-based) itching throughout body Active Immunizations Given and Recorded Vaccine Date Status Refusal Reason pneumococcal 20-valent conjugate vaccine 05/30/22 Recorded [id number]-[id number] 12y+ bivalent booster vax 05/12/22 Recorded influenza [...] vaccine, inactivated 04/26/09 Arnoldo rded SARS-CoV-2 mRNA (yzamxjl-yiid-mmthp) vax 03/10/22 Recorded SARS-CoV-2 mRNA (hjdczce-ncnp-radyr) vax 10/04/21 Recorded SARS-CoV-2 (COVID-19) mRNA BNT-162b2 [...] 1 Refills, Maintenance, 08/01/23 13:53:00 EST, Tablet, [facility]/pharmacy #[id number], [...] 09/05/23 12:44:00 EST, Route to Pharmacy Electronically, [facility], Partial fill upon patient req... Start Date: 09/05/23 Stop Date: 06/01/24 Status: Ordered baclofen 20 mg oral tablet 20 mg, 1, tablet, By Mouth, 3 times a day, for 90 days, # 270 tablet, Refills 2, Tot. Refills 2, Hard Stop 09/05/23 12:44:00 EST, 12/09/22 12:44:00 EDT, Route to Pharmacy Electronically, Pharmacy, Partial fill upon patient req... Start Date: 12/09/22 Stop Date: 09/05/23 Status: Ordered baclofen 20 mg oral tablet 20 mg, 1, tablet, By Mouth, 3 times a day, # 270 tablet, Refills 2, Tot. Refills 2, Maintenance, 09/05/23 12:44:00 EST, Route to Pharmacy Electronically, [facility]/pharmacy #[id number], Partial fill upon patientrequest if [...] Refills, Soft Stop, 03/27/23 18:43:00 EDT, Tablet, [facility]/pharmacy #[id number], [...] 2, Maintenance, Juzo Compression Hose 2 pairs rshpm-zlc-slqd Soft Knee FF Petite 20-30 mmHg Silicone, Black Stock Code [id number] I I I Part #[id number] Size I I I SKU... Start Date: 03/12/23 Status: Ordered levothyroxine 0.088 mg oral tablet 1 tablet = 88 mcg, By Mouth, Daily, # 90 tablet, 3 Refills, Maintenance, 08/01/23 13:54:00 EST, Tablet, [facility]/pharmacy #[id number], [...] capsule, 0 Refills, Maintenance, 08/01/23 13:54:00 EST, [facility]/pharmacy #[id number], 155, cm, 05/28/23 11:02:00 EDT, Height, 93.4, kg, 11/01/21 16:52:00 EDT, Dry Weight Start Date: 08/01/23 Status: Ordered Power [place] Lift with [place] split-leg sling Power [place] Lift with [place] split-leg sling, See Instructions, # 1 each, [...] 0 Refills, Maintenance, 08/08/23 18:05:00 EST, Tablet, [facility]/pharmacy #[id number], [...] 11/23/23 2:50:00 EDT, 08/03/23 2:50:00 EST, Tablet, [facility]... Start Date: 08/03/23 Stop [...] 90 capsule, 1 Refills, 12/11/22 15:16:00 EDT, [facility]/pharmacy #[id number], 155, cm, 10/10/22 13:40:00 EST, Height, 93.4, kg, 11/01/21 16:52:00 EDT, Dry Weight Start Date: 12/11/22 Status: Ordered Xarelto 20 mg oral tablet See Instructions, TAKE 1 TABLET DAILY AT SUPPER, # 90 tablet, 3 Refills, Maintenance, 01/17/23 9:37:00 EDT, [facility], 155, cm, [...] Care Nurse Name: Elsa [place] NP Position: [facility] Outreach Member Role: Primary Care Nurse Address: Address: [address] [place] [address] [address] [place] [address]- [place] Name: Emma Mendoza RN Position: [facility] AMB Nurse Member Role: Primary Care Nurse Name: Juan Manuel LIM, Kristen Acosta Position: [facility] Physician - Primary Care Member Role: PCP Address: Address: [address] [place] [address]- Name: Komal Goodrich Position: [facility] Outreach Member Role: Lifetime Consulting Physician Name: Godfrey Cano Position: [facility] RN Member Role: Primary Care Nurse Name: Anette Miranda RN Position: [facility] Onco RN Member Role: Primary Care Nurse Care Team Related Persons Name: DIOMEDES WARNER Address: home [address] [place] [address] Name: MOO HOWELL Address: home [address] [place] [address] Name: MARLON GENTILE
--- OUTSIDE RECORDS SUMMARY | 2024-03-17 13:41 | XMS_ITS | Continuity of Care Document ---
Author Organization [facility] Address [address] [place] [address]- Care Team Providers Care Detective Name Role Phone Juan Manuel LIM, Kristen Acosta Primary Care Physic juan alberto [facility] Date[facility]s): 05/08[facility]23 - 06/07/23 [facility] [address] [place] [address]- Allergies, Adverse Reactions, Alerts Substance Reaction Severity Status morphine hives, SOB Active penicillins hive Active Wellbutrin rash Active Reglan Active cannabis (Schedule I substance) itching/vomiting Active Other Environmental Allergy mercury-fillings Active contrast media (iodine-based) itching throughout body Active Immunizations Given and Recorded Vaccine Date Status Refusal Reason pneumococcal 20-valent conjugate vaccine 05/30/22 Recorded CZGV-JsL-0dZCM 12y+ bivalent booster vax 05/12/22 Recorded influenza virus vaccine, inactivated 03/29/22 Arnoldo rded influenza virus vaccine, inactivated 04/10/21 Arnoldo rded influenza virus vaccine, inactivated 04/03/20 Arnoldo rded influenza virus vaccine, inactivated 05/13/19 Arnoldo rded influenza virus vaccine, inactivated 04/16/18 Arnodlo rded influenza virus vaccine, inactivated 05/07/17 Arnoldo rded influenza virus vaccine, inactivated 04/19/16 Arnoldo rded influenza virus vaccine, inactivated 04/12/15 Arnoldo rded influenza virus vaccine, inactivated 04/01/13 Arnoldo rded influenza virus vaccine, inactivated 04/01/12 Arnoldo rded influenza virus vaccine, inactivated 04/26/09 Arnoldo rded SARS-CoV-2 mRNA (jrjegue-rxfz-fxgqp) vax 03/10/22 Recorded SARS-CoV-2 mRNA (tcksxdi-yxfo-szbtt) vax 10/04/21 Recorded SARS-CoV-2 (COVID-19) mRNA BNT-162b2 [...] 12/09/22 12:44:00 EDT, Route to Pharmacy Electronically, [facility], Partial fill upon [...] 2, Maintenance, Juzo Compression Hose 2 pairs wlrjg-yfx-zzso Soft Knee FF Petite 20-30 mmHg Silicone, Black Stock Code [id number] I I I Part #[id number] Size I I I SKU... Start Date: 03/12/23 Status: Ordered levothyroxine 0.088 mg oral tablet 1 tablet = 88 mcg, By Mouth, Daily, # 90 tablet, 3 Refills, Maintenance, 03/15/23 17:17:00 EDT, Tablet, [facility], Partial fill upon patient request if the prescription is fora schedule II opioid drug., 155, cm, 03/15/23 17:11... Start Date: 03/15/23 Status: Ordered lisinopril 5 mg oral tablet 1, tablet, By Mouth, Daily, # 90 tablet, Refills 3, Tot. Refills 3, Maintenance, 03/15/23 17:16:00 EDT, Route to Pharmacy Electronically, [facility], 155, cm, 03/15/23 17:11:00EDT, [...] 03/12/23 Status: Ordered Power [place] Lift with [place] split-leg sling Power [place] Lift with [place] split-leg sling, See Instructions, # 1 each, [...] Team Personnel Name: Juliann Rich RN Position: [facility] RN Member Role: Primary Care Nurse Name: Elsa [place] NP Position: Reference Physician Member Role: Primary Care Nurse Address: Address: [address] [place] [address] [address] [place] [address]- Name: Emma Mendoza RN Position: [facility] AMB Nurse Member Role: Primary Care Nurse Name: Juan Manuel LIM, Kristen Acosta Position: [facility] Physician - Primary Care Member Role: PCP Address: Address: [address] [place] [address]- Name: Komal Goodrich Position: [facility] Outreach Member Role: Lifetime Consulting Physician Name: Godfrey Cano Position: [facility] RN Member Role: Primary Care Nurse Name: Anette Miranda RN Position: [facility] Onco RN Member Role: Primary Care Nurse Care Team Related Persons Name: DIOMEDES WARNER Address: home [address] [place] [address] Name: MOO HOWELL Address: [address] [place] [address] Name: MARLON GENTILE
--- OUTSIDE RECORDS SUMMARY | 2024-03-17 13:41 | XMS_ITS | Continuity of Care Document ---
Author Organization [facility]ious Disease Address [address] [place] [address]- Care Team Providers Care Director Of Science Name Role Phone Juan Manuel LIM, Kristen Acosta Primary Care Physic juan alberto Encounter [facility] Date(s): 08/11/22 - 09/10/22 [facility] [address] [place] [id number] Allergies, Adverse Reactions, Alerts Substance Reaction Severity Status morphine hives, SOB Active penicillins hive Active Wellbutrin rash Active Reglan Active cannabis (Schedule I substance) itching/vomiting Active Other Environmental Allergy mercury-fillings Active contrast media (iodine-based) itching throughout body Active Immunizations Given and Recorded Vaccine Date Status Refusal Reason pneumococcal 20-valent conjugate vaccine 05/30/22 Recorded [id number]-[id number] 12y+ bivalent booster vax 05/12/22 Recorded influenza [...] vaccine, inactivated 04/26/09 Arnoldo rded SARS-CoV-2 mRNA (igludhs-cvgd-iynjx) vax 03/10/22 Recorded SARS-CoV-2 mRNA (mfzsbhe-fxoy-yhkiw) vax 10/04/21 Recorded SARS-CoV-2 (COVID-19) mRNA BNT-162b2 [...] 1 Refills, Maintenance, 08/24/22 16:47:00 EST, Tablet, [facility], Partial fill upon patient request if the prescription is for a schedule II opioid drug., 155, cm, 06/15... Start Date: 08/24/22 Status: Ordered baclofen 20 mg oral tablet 20 mg, 1, tablet, By Mouth, 3 times a day, # 270 tablet, Refills 2, Tot. Refills 2, Maintenance, 12/09/22 12:44:00 EDT, Route to Pharmacy Electronically, [facility] [...] 03/14/22 12:44:00 EDT, Route to Pharmacy Electronically, [facility]/pharmacy#[id number], Partial fill upon patient request if the pre... Start Date: 03/14/22 Stop Date: 12/09/22 Status: Ordered bifidobacterium-lactobacillus oral tablet 2 tablet, By Mouth, 2 times a day, [facility] Brand please (Senior Wellness), # 360 tablet, 3 Refills, Maintenance, 08/11/21 17:02:00 EST, Tablet, [facility]/pharmacy #[id number], Partial fill upon patient request if the prescription is for a schedule II opioid drug., 2... Start Date: 08/11/21 Stop Date: 08/06/22 Status: Ordered calcium carbonate 600 mg oral tablet 1 tablet = 600 mg, By Mouth, 2 times a day, # 180 tablet, 2 Refills, Maintenance, 01/06/23 14:02:00EDT, Tablet, [facility]/pharmacy #[id number], Partial fill upon patient [...] 14:02:00 EDT, 01/11/22 14:02:00 EDT, Tablet, [facility], Partial fill upon patient request if the prescription is for a schedul... Start Date: 01/11/22 Stop Date: 01/06/23 Status: Ordered Centrum Silver Ultra Women's oral tablet 1 tablet, By Mouth, Daily, 0 Refills, Maintenance, 07/09/18 8:43:55 EST Start Date: 07/09/18 Status: Ordered [facility] SENIOR PROBIOTIC CAPSULE TAKE 2 CAPSULES BY MOUTH TWICE A DAY Start Date: 11/01/21 Status: Ordered [facility] Senior Probiotic Capsule [facility] Senior Probiotic Capsule, See Instructions, [...] 3 Refills, Maintenance, 04/02/22 21:13:00 EDT, Gel, [facility]... Start Date: 04/02/22 [...] 450 mL, 5 Refills, 03/02/22 8:08:00 EDT, [facility]/pharmacy #[id number], 155, cm, 02/23/22 8:04:00 [...] Refills, Soft Stop, 05/26/22 8:59:00 EDT, Tablet, [facility]/pharmacy #[id number], Partial fill upon patient [...] 9:03:00 EDT, Route to Pharmacy Electronically, [facility] [...] EDT, Route to Pharmacy Electronically, [facility]... Start Date: 01/11/22 Status: Ordered gabapentin [...] Tot. Refills 2, Maintenance, 20-30mmghg FF Petite (short),Rkkyu-xmf-bvwm, soft knee, black silicone Stock code [id number] Part #[id number], Size III. [facility] [id number], 12/07/21 11:32:00 EDT,... Start Date: 12/07/21 Status: Ordered levothyroxine 0.088 mg oral tablet 1 tablet = 88 mcg, By Mouth, Daily, # 90 tablet, 1 Refills, Maintenance, 09/08/22 14:26:00 EST, Tablet, [facility], Partial fill upon patient request if the prescription is fora schedule II opioid drug., 155, cm, 07/12/22 14:10... Start Date: 09/08/22 Status: Ordered lisinopril 5 mg oral tablet 5 mg, 1, tablet, By Mouth, Daily, # 90 tablet, Refills 3, Tot. Refills 3, Maintenance, 02/24/22 15:53:00 EDT, Route to Pharmacy Electronically, [facility]/pharmacy #[id number], Partial fill upon patient request if the prescription is for a schedule II opioid drug.... Start Date: 02/24/22 Status: Ordered Mapap 500 mg oral capsule See Instructions, TAKE 2 CAPSULES BY MOUTH 4 TIMES A DAY NEEDED FOR PAIN, # 480 capsule, 3 Refills, Maintenance, 06/04/22 16:03:00 EDT, [facility] STORE [id number], 155, cm, 05/25/22 13:44:00 EDT, Height, 93.4, kg, 11/01/21 16:52:00 EDT, Dry Weight Start Date: 06/04/22 Status: Ordered Potassium Chloride (Eqv-K-Tab) 20 mEq oral tablet, extended release 1 tablet = 20 mEq, By Mouth, Daily, for low potassium, # 10 tablet, 0 Refills, Maintenance, 03/02/22 19:14:00 EDT, [facility]/pharmacy #[id number], Partial fill upon patient request if the prescription is for a schedule II opioid drug., 155, cm, 02/23/22 8:04:00 E... Start Date: 03/02/22 Stop Date: 03/12/22 Status: Ordered Power [place] Lift with [place] split-leg sling Power [place] Lift with [place] split-leg sling, See Instructions, # 1 each, [...] 18 tablet, 0Refills, Maintenance, 08/24/22 17:06:00 EST, [facility]/pharmacy #[id number], Partial fill upon patient [...] 11/01/22 17:46:00 EDT, 07/12/22 17:46:00 EST, Tablet, [facility]/pharmacy #[id number], Partial fill upon pa... Start Date: 07/12/22 Stop Date: 11/01/22 Status: Ordered Provigil 200 mg oral tablet 1 tablet = 200 mg, By Mouth, 2 times a day, takes in am and lunchtime brand name only - dispense aswritten, # 56 tablet, 0 Refills, Maintenance, 09/07/22 14:36:00 EST, [id number] upon [...] 10/25/22 18:25:00 EDT, 07/05/22 18:25:00 EST, [facility]... Start Date: 07/05/22 Stop Date: [...] 90 capsule, 2 Refills, 02/28/22 8:13:00 EDT, [facility]/pharmacy #[id number], 155,cm, 02/23/22 8:04:00 EDT, Height, 93.4, kg, 11/01/21 16:52:00 EDT, Dry Weight Start Date: 02/28/22 Status: Ordered Xarelto 20 mg oral tablet 1 tablet = 20 mg, By Mouth, Daily at supper, # 90 tablet, 3 Refills, Maintenance, 02/01/22 12:42:00EDT, Tablet, [facility], Partial fill upon patient request [...] Member Role: Primary Care Nurse Address: Address: [address] [facility] [address] [facility] [address] [place] [address]- [place] Name: Emma Mendoza RN Position: [facility] RN Member Role: Primary Care Nurse Name: Juan Manuel LIM, Kristen Acosta Position: [facility] Primary Care Physician Member Role: PCP Address: Address: [address] [place] [address]- Name: Jade Medina Position: [facility] RN Member Role: Primary Care Nurse Name: Komal Goodrich Position: [facility] Outreach Member Role: Lifetime Consulting Physician Name: Godfrey Cano Position: [facility] RN Member Role: Primary Care Nurse Name: Anette Miranda RN Position: [facility] Onco RN Member Role: Primary Care Nurse Care Team Related Persons Name: DIOMEDES WARNER Address: home [address] [place] [address] Name: MOO HOWELL Address: [address] [place] [address] Name: MARLON GENTILE
--- OUTSIDE RECORDS SUMMARY | 2024-03-17 13:42 | XMS_ITS | Continuity of Care Document ---
Author Organization [facility] Address [address] [place] [address]- Care Team Providers Care Skin Fitter Name Role Phone Juan Manuel LIM, Kristen Acosta Primary Care Physic juan alberto [facility] Date[facility]s): 10[facility]21 - 11/30/21 [facility] [address] [place] [id number] Allergies, Adverse Reactions, Alerts Substance Reaction [...] 04/19/22 17:46:00 EDT, 08/22/21 17:46:00 EST, Capsule, [facility]/pharmacy #[id number], Partial fill upon patient request if the prescription is for a schedul... Start Date: 08/22/21 Stop Date: 04/19/22 Status: Ordered ascorbic acid 1000 mg oral tablet 1 tablet = 1,000 mg, By Mouth, 2 times a day, # 90 tablet, 1 Refills, Maintenance, 08/11/21 17:03:00 EST, Tablet, [facility]/pharmacy #[id number], Partial [...] Route to Pharmacy Electronically, [facility], Partial fill upon patient request if the prescription is for a... Start Date: 08/02/21 Status: Ordered bifidobacterium-lactobacillus oral tablet 2 tablet, By Mouth, 2 times a day, [facility] Brand please ([facility]), # 360 tablet, 3 Refills, [...] 01/09/22 14:17:00 EDT, 07/13/21 14:17:00 EST, Tablet, [facility], Partial fill upon patient [...] STILL NEEDED, # 450 mL, 0 Refills, [facility] STORE [id number], 153, cm, 08/30/21 16:43:00 EST, Height Start [...] 14:09:00 EST, Tablet, [facility] [...] 07/13/21 Status: Ordered Power [place] Lift with [place] split-leg sling Power [place] Lift with [place] split-leg sling, See Instructions, # 1 each, [...] 1 Refills, Maintenance, 07/14/21 17:19:00 EST, Tablet, [facility], Partial fill upon patient request if t... Start Date: 07/14/21 Stop Date: 09/08/21 Status: Ordered Turmeric = 750 mg, By Mouth, 2 times a day, 0 Refills, Maintenance, 07/09/18 8:47:35 EST Start Date: 07/09/18 Status: Ordered Vitamin D3 2000 intl units oral capsule 1 capsule, By Mouth, Daily, # 90 capsule, 1 Refills, 08/11/21 17:04:00 EST, [facility]/pharmacy #[id number], 153, cm, 06/27/21 7:47:00 [...]
--- OUTSIDE RECORDS SUMMARY | 2024-03-17 13:42 | XMS_ITS | Continuity of Care Document ---
Author Organization [facility] Address [address] [place] [address]- Care Team Providers Care Ordnance Truck Installation Supervisor Name Role Phone Juan Manuel LIM, Kristen Acosta Primary Care Physic juan alberto [facility] - 11/24/23 [facility] [address] [place], [place] [address] Allergies, Adverse Reactions, Alerts Substance Reaction Severity Status morphine hives, SOB Active Wellbutrin rash Active contrast media (iodine-based) itching throughout body Active penicillins hive Active Reglan Active cannabis (Schedule I substance) itching/vomiting Active Other Environmental Allergy mercury-fillings Active Immunizations Given and Recorded Vaccine Date Status Refusal Reason SARS-CoV-2(COVID-19)mRNA-LNP vac([id number]) 10/19/23 Recorded SARS-CoV-2(COVID-19)mRNA-LNP vac([id number]) 07/03/23 Recorded RSV vaccine preF3, recombinant 05/19/23 [...] influenza virus vaccine, inactivated 04/26/09 Arnoldo rded VUTE-FkV-7cSPL 12y+ bivalent booster vax 01/23/23 Recorded UIKY-RwK-9vNYX 12y+ bivalent booster vax 05/12/22 Recorded pneumococcal 20-valent conjugate vaccine 05/30/22 Recorded SARS-CoV-2 mRNA (gkiedzp-thli-exyjr) vax 03/10/22 Recorded SARS-CoV-2 mRNA (ysiqqbk-beky-vvxuc) vax 10/04/21 Recorded SARS-CoV-2 (COVID-19) mRNA BNT-162b2 [...] 09/05/23 12:44:00 EST, Route to Pharmacy Electronically, [facility], Partial fill upon patient req... Start Date: 09/05/23 Stop Date: 06/01/24 Status: Ordered baclofen 20 mg oral tablet 20 mg, 1, tablet, By Mouth, 3 times a day, # 270 tablet, Refills 2, Tot. Refills 2, Maintenance, 06/01/24 12:44:00 EDT, Route to Pharmacy Electronically, [facility]/pharmacy [...] EST, Route to Pharmacy Electronically, [facility]/pharmacy#[id number], Partial fill upon patient request if the pre... Start Date: 09/05/23 Stop Date: 06/01/24 Status: Ordered bifidobacterium-lactobacillus oral tablet 2 tablet, By Mouth, 2 times a day, [facility] Brand please ([facility]), # 360 tablet, 3 Refills, [...] Maintenance,02/15/23 7:44:00 EDT, Route to Pharmacy Electronically, [facility], Partial fill upon patient request if the prescription is for... Start Date: 02/15/23 Stop Date: 11/12/23 Status: Ordered Juzo Compression Hose Juzo Compression Hose, See Instructions, # 2 each, Refills 2, Tot. Refills 2, Maintenance, Juzo Compression Hose 2 pairs jvfmc-quu-njxm Soft Knee FF Petite 20-30 mmHg Silicone, Black Stock Code [id number] I I I Part #[id number] Size I I I SKU... Start Date: 03/12/23 Status: Ordered levothyroxine 0.088 mg oral tablet 1 tablet = 88 mcg, By Mouth, Daily, # 90 tablet, 1 Refills, Maintenance, 10/01/23 17:11:00 EST, Tablet, [facility]/pharmacy #[id number], Partial fill upon patient request if the prescription is for a schedule II opioid drug., 155, cm, 05/28/23 11:02:00 EDT, Height... Start Date: 10/01/23 Status: Ordered lisinopril 5 mg oral tablet 1, tablet, By Mouth, Daily, # 90 tablet, Refills 1, Tot. Refills 1, Maintenance, 10/01/23 17:15:00 EST, Route to Pharmacy Electronically, [facility]/pharmacy #[id number], 155, cm, 05/28/23 11:02:00 EDT, Height, 93.4, kg, 11/01/21 16:52:00 EDT, Dry Weight Start Date: 10/01/23 Status: Ordered Mapap 500 mg oral capsule See Instructions, TAKE 2 CAPSULES BY MOUTH 4 TIMES A DAY NEEDED FOR PAIN, # 480 capsule, 0 Refills, Maintenance, 11/12/23 15:45:00 EDT, [facility]/pharmacy #[id number], 155, cm, 05/28/23 11:02:00 EDT, Height Start Date: 11/12/23 Status: Ordered Power [place] Lift with [place] split-leg sling Power [place] Lift with [place] split-leg sling, See Instructions, # 1 each, [...] Care Nurse Name: Elsa [place] NP Position: [facility] Outreach Member Role: Primary Care Nurse Address: Address: [address] [place] [phone]- Name: Emma Mendoza RN Position: [facility] AMB Nurse Member Role: Primary Care Nurse Name: Juan Manuel LIM, Kristen Acosta Position: [facility] Physician - Primary Care Member Role: PCP Address: Address: [address] [place] [id number]- Name: Anette Soler RN Position: [facility] Onco RN Member Role: Primary Care Nurse Name: Komal Goodrich Position: [facility] Outreach Member Role: Lifetime Consulting Physician Name: Godfrey Cano Position: [facility] RN Member Role: Primary Care Nurse Care Team Related Persons Name: DIOMEDES WARNER Address: home [address] [place] [address] Name: MOO HOWELL Address: home [address] [place] [address] Name: MARLON GENTILE
--- OUTSIDE RECORDS SUMMARY | 2024-03-17 13:42 | XMS_ITS | Continuity of Care Document ---
Author Organization [facility] Address [address] [place] [address]- Care Team Providers Care Production Director Name Role Phone Juan Manuel LIM, Kristen Acosta Primary Care Physic juan alberto Encounter [facility] Date(s): 09/13/22 - 10/13/22 [facility] [address] [place], [place] [address] Allergies, Adverse Reactions, Alerts Substance Reaction Severity Status morphine hives, SOB Active penicillins hive Active Wellbutrin rash Active Reglan Active cannabis (Schedule I substance) itching/vomiting Active Other Environmental Allergy mercury-fillings Active contrast media (iodine-based) itching throughout body Active Immunizations Given and Recorded Vaccine Date Status Refusal Reason pneumococcal 20-valent conjugate vaccine 05/30/22 Recorded [id number] 12y+ bivalent booster vax 05/12/22 Recorded influenza [...] vaccine, inactivated 04/26/09 Arnoldo rded SARS-CoV-2 mRNA (lhpgvud-nblo-mhczy) vax 03/10/22 Recorded SARS-CoV-2 mRNA (rawihov-yfmp-hzjzs) vax 10/04/21 Recorded SARS-CoV-2 (COVID-19) mRNA BNT-162b2 [...] tablet, 0 Refills, Maintenance, 10/05/22 9:35:00EST, Tablet, [facility]/pharmacy #[id number], Partial fill upon patient request if the prescription is for a schedule II opioid drug., 155, cm, 09/26/22 14:02:00 ES... Start Date: 10/05/22 Status: Ordered baclofen 20 mg oral tablet 20 mg, 1, tablet, By Mouth, 3 times a day, # 270 tablet, Refills 2, Tot. Refills 2, Maintenance, 12/09/22 12:44:00 EDT, Route to Pharmacy Electronically, [facility], Partial fill upon patient request if the prescription is for a... Start Date: 12/09/22 Stop Date: 09/05/23 Status: Ordered baclofen 20 mg oral tablet 20 mg, 1, tablet, By Mouth, 3 times a day, for 90 days, # 270 tablet, Refills 2, Tot. Refills 2, Hard Stop 12/09/22 12:44:00 EDT, 03/14/22 12:44:00 EDT, Route to Pharmacy Electronically, [facility]/pharmacy#[id number], Partial fill upon patient request if the pre... Start Date: 03/14/22 Stop Date: 12/09/22 Status: Ordered bifidobacterium-lactobacillus oral tablet 2 tablet, By Mouth, 2 times a day, [facility] Brand please (Senior Wellness), [...] tablet, 2 Refills, Maintenance, 01/06/23 14:02:00EDT, Tablet, [facility]/pharmacy #[id number], Partial [...] A DAY Start Date: 11/01/21 Status: Ordered [facility] Senior Probiotic Capsule [facility] Senior Probiotic Capsule, See [...] 450 mL, 5 Refills, 03/02/22 8:08:00 EDT, [facility]/pharmacy #[id number], 155, cm, 02/23/22 [...] Refills, Soft Stop, 05/26/22 8:59:00 EDT, Tablet, [facility]/pharmacy #[id number], [...] EDT, [facility] Start Date: 01/11/22 Status: Ordered gabapentin [...] Tot. Refills 2, Maintenance, 20-30mmghg FF Petite (short),Lwqjz-kty-hjba, soft knee, black silicone Stock code [id number] Part #[id number], Size III. [facility] [id number], 12/07/21 11:32:00 EDT,... Start Date: 12/07/21 Status: Ordered levothyroxine 0.088 mg oral tablet 1 tablet = 88 mcg, By Mouth, Daily, # 90 tablet, 1 Refills, Maintenance, 09/08/22 14:26:00 EST, Tablet, [facility], Partial fill upon patient request if the prescription is fora schedule II opioid drug., 155, cm, 07/12/22 14:10... Start Date: 09/08/22 Status: Ordered lisinopril 5 mg oral tablet 5 mg, 1, tablet, By Mouth, Daily, # 90 tablet, Refills 3, Tot. Refills 3, Maintenance, 02/24/22 15:53:00 EDT, Route to Pharmacy Electronically, [facility]/pharmacy #[id number], Partial fill upon patient request if the prescription is for a schedule II opioid drug.... Start Date: 02/24/22 Status: Ordered lisinopril 5 mg oral tablet See Instructions, TAKE 1 TABLET DAILY, # 90 tablet, Refills 1, Maintenance, 09/24/22 19:24:00 EST, Instructions Replace Required Details, Route to Pharmacy Electronically, [facility], 155, cm, 07/12/22 14:10:00 EST, Height, 93.4, k... Start Date: 09/24/22 Status: Ordered Mapap 500 mg oral capsule See Instructions, TAKE 2 CAPSULES BY MOUTH 4 TIMES A DAY NEEDED FOR PAIN, # 480 capsule, 3 Refills, Maintenance, 06/04/22 16:03:00 EDT, [id number], 155, cm, 05/25/22 13:44:00 EDT, Height, 93.4, kg, 11/01/21 16:52:00 EDT, Dry Weight Start Date: 06/04/22 Status: Ordered Power [place] Lift with [place] split-leg sling Power [place] Lift with [place] split-leg sling, See Instructions, # 1 each, [...] 11/01/22 17:46:00 EDT, 07/12/22 17:46:00 EST, [id number] fill upon pa... Start Date: 07/12/22 Stop Date: 11/01/22 Status: Ordered Provigil 200 mg oral tablet 1 tablet = 200 mg, By Mouth, 2 times a day, takes in am and lunchtime brand name only - dispense aswritten, # 56 tablet, 5 Refills, Maintenance, 10/05/22 17:39:00 EST, Tablet, [id number], Partial fill upon patient request if [...] 90 capsule, 2 Refills, 02/28/22 8:13:00 EDT, [facility]/pharmacy #[id number], 155,cm, 02/23/22 8:04:00 EDT, Height, 93.4, kg, 11/01/21 16:52:00 EDT, Dry Weight Start Date: 02/28/22 Status: Ordered Xarelto 20 mg oral tablet 1 tablet = 20 mg, By Mouth, Daily at supper, # 90 tablet, 3 Refills, Maintenance, 02/01/22 12:42:00EDT, Tablet, [facility], Partial fill upon patient [...] Member Role: Primary Care Nurse Address: Address: [address] [place] [address] [address] [facility] [place] [address]- [place] Name: Emma Mendoza RN Position: [facility] RN Member Role: Primary Care Nurse Name: Juan Manuel LIM, Kristen Acosta Position: [facility] Primary Care Physician Member Role: PCP Address: Address: [address] [place] [id number]- Name: Jade Medina Position: [facility] RN Member Role: Primary Care Nurse Name: Komal Goodrich Position: [facility] Outreach Member Role: Lifetime Consulting Physician Name: Godfrey Cano Position: [facility] RN Member Role: Primary Care Nurse Name: Anette Miranda RN Position: [facility] Onco RN Member Role: Primary Care Nurse Care Team Related Persons Name: DIOMEDES WARNER Address: home [address] [place] [address] Name: MOO HOWELL Address: home [address] [place] [address] Name: MARLON GENTILE
--- OUTSIDE RECORDS SUMMARY | 2024-03-17 13:42 | XMS_ITS | Continuity of Care Document ---
Author Organization [facility] Address [address] [place] [address]- Care Team Providers Care School Guidance Counselor Name Role Phone Juan Manuel LIM, Kristen Acosta Primary Care Physic juan alberto Encounter [facility] Date(s): 12/20/23 - 01/19/24 [facility] [address] [place] [address]- Allergies, Adverse Reactions, Alerts Substance Reaction Severity Status morphine hives, SOB Active penicillins hive Active Wellbutrin rash Active Reglan Active cannabis (Schedule I substance) itching/vomiting Active Other Environmental Allergy mercury-fillings Active contrast media (iodine-based) itching throughout body Active Immunizations Given and Recorded Vaccine Date Status Refusal Reason SARS-CoV-2(COVID-19)mRNA-LNP vac([id number]) 10/19/23 Recorded SARS-CoV-2(COVID-19)mRNA-LNP vac([id number]) 07/03/23 Recorded RSV vaccine preF3, recombinant 05/19/23 [...] influenza virus vaccine, inactivated 04/26/09 Arnoldo rded [id number] 12y+ bivalent booster vax 01/23/23 Recorded [id number]-WvL-[id number] 12y+ bivalent booster vax 05/12/22 Recorded pneumococcal 20-valent conjugate vaccine 05/30/22 Recorded SARS-CoV-2 mRNA (qvpifdg-sepl-mxspl) vax 03/10/22 Recorded SARS-CoV-2 mRNA (slhavnw-atyz-fdylg) vax 10/04/21 Recorded SARS-CoV-2 (COVID-19) mRNA BNT-162b2 [...] 1 Refills, Maintenance, 08/01/23 13:53:00 EST, Tablet, [facility]/pharmacy #[id number], Partial fill upon patient request if [...] 09/05/23 12:44:00 EST, Route to Pharmacy Electronically, [facility], Partial fill upon patient req... Start Date: 09/05/23 Stop Date: 06/01/24 Status: Ordered baclofen 20 mg oral tablet 20 mg, 1, tablet, By Mouth, 3 times a day, for 90 days, # 270 tablet, Refills 1, Tot. Refills 1, Hard Stop 06/25/24 10:31:00 EST, 12/28/23 10:31:00 EDT, Route to Pharmacy Electronically, [facility], Partial fill upon patient req... Start [...] 09/05/23 12:44:00 EST, [id number] Partial fill upon patient request if the pre... Start Date: 09/05/23 Stop Date: 06/01/24 Status: Ordered bifidobacterium-lactobacillus oral tablet 2 tablet, By Mouth, 2 times a day, [facility] Brand please ([facility]), # 360 tablet, 3 Refills, Maintenance, 08/11/21 17:02:00 EST, Tablet, [facility]/pharmacy #[id number], Partial fill upon patient request if the prescription is for a schedule II opioid drug., 2... Start Date: 08/11/21 Stop Date: 08/06/22 Status: Ordered calcium carbonate 600 mg oral tablet 1 tablet = 600 mg, By Mouth, 2 times a day, # 180 tablet, 2 Refills, Maintenance, 01/06/23 14:02:00EDT, Tablet, [facility]/pharmacy #[id number], Partial fill upon patient request if the prescription is for a schedule II opioid drug., 155, cm, 02/23/22 8:04:00 EDT... Start Date: 01/06/23 Stop Date: 10/03/23 Status: Ordered Centrum Silver Ultra Women's oral tablet 1 tablet, By Mouth, Daily, 0 Refills, Maintenance, 07/09/18 8:43:55 EST Start Date: 07/09/18 Status: Ordered [facility] SENIOR PROBIOTIC CAPSULE TAKE 2 CAPSULES BY MOUTH TWICE A DAY Start Date: 11/01/21 Status: Ordered [facility] Senior Probiotic Capsule [facility] Senior Probiotic Capsule, See Instructions, # 180 [...] 450 mL, 5 Refills, 03/02/22 8:08:00 EDT, [facility]/pharmacy #[id number], 155, cm, 02/23/22 8:04:00 EDT, Height, [...] Refills, Soft Stop, 03/27/23 18:43:00 EDT, Tablet, [facility]/pharmacy #[id number], Partial fill upon patient request if the prescription is for a schedule II opioid... Start Date: 03/27/23 Status: Ordered fluconazole 150 mg oral tablet 1 tablet = 150 mg, By Mouth, Every week, # 4 tablet, 1 Refills, Soft Stop, 05/26/22 8:59:00 EDT, Tablet, [facility]/pharmacy #[id number], Partial fill upon patient request if [...] EST, Route to Pharmacy Electronically, [facility], 155, cm, 05/28/23 11:02:00 EDT, Height, 93.4, kg, 11/01/21 16:52:00 EDT, Dry Weight Start Date: 07/03/23 Status: Ordered gabapentin 300 mg oral capsule 300 mg, 1, capsule, By Mouth, 3 times a day, # 270 capsule, Refills 1, Tot. Refills 1, Maintenance,12/28/23 10:30:00 EDT, [facility], Partialfill upon patient request if [...] 2, Maintenance, Juzo Compression Hose 2 pairs jijur-kcv-jnah Soft Knee FF Petite 20-30 mmHg Silicone, Black Stock Code [id number] I I I Part #[id number] Size I I I SKU... Start Date: 03/12/23 Status: Ordered levothyroxine 0.088 mg oral tablet 1 tablet = 88 mcg, By Mouth, Daily, # 90 tablet, 1 Refills, Maintenance, 10/01/23 17:11:00 EST, Tablet, [facility]/pharmacy #[id number], Partial fill upon patient request if the prescription is for a schedule II opioid drug., 155, cm, 05/28/23 11:02:00 EDT, Height... Start Date: 10/01/23 Status: Ordered lisinopril 5 mg oral tablet 1, tablet, By Mouth, Daily, # 90 tablet, Refills 1, Tot. Refills 1, Maintenance, 10/01/23 17:15:00 EST, Route to Pharmacy Electronically, [facility]/pharmacy #[id number], 155, cm, 05/28/23 11:02:00 EDT, Height, 93.4, kg, 11/01/21 16:52:00 EDT, Dry Weight Start Date: 10/01/23 Status: Ordered Mapap 500 mg oral capsule See Instructions, TAKE 2 CAPSULES BY MOUTH 4 TIMES A DAY NEEDED FOR PAIN, # 480 capsule, 0 Refills, Maintenance, 11/12/23 15:45:00 EDT, [facility]/pharmacy #[id number], 155, cm, 05/28/23 11:02:00 EDT, Height Start Date: 11/12/23 Status: Ordered Power [place] Lift with [place] split-leg sling Power [place] Lift with [place] split-leg sling, See Instructions, # 1 [...] cm, 10/10/22 13:40:00 EST, Height, 93.4, kg, 03/22/22 16:52:00 EDT, Dry Weight Start Date: 12/11/22 [...] Care Nurse Name: Elsa Allen NP Position: [facility] Outreach Member Role: Primary Care Nurse Address: Address: [address] [facility] [place] [address]- Name: Emma Mendoza RN Position: [facility] AMB Nurse Member Role: Primary Care Nurse Name: Juan Manuel LIM, Kristen Acosta Position: [facility] Physician - Primary Care Member Role: PCP Address: Address: [address] [address]- Name: Ryder MILLER, Anette Position: [facility] Onco RN Member Role: Primary Care Nurse Name: Komal Goodrich Position: [facility] Outreach Member Role: Lifetime Consulting Physician Name: Godfrey Cano Position: [facility] RN Member Role: Primary Care Nurse Care Team Related Persons Name: DIOMEDES WARNER Address: [address] [place] [address] Name: MOO HOWELL Address: home [address] [place] [address] Name: MARLON GENTILE
--- OUTSIDE RECORDS SUMMARY | 2024-03-17 13:42 | XMS_ITS | Continuity of Care Document ---
Author Organization [facility] Address [address] [place] [address]- Care Team Providers Care Desk Pens Assembler Name Role Phone Juan Manuel LIM, Kristen Acosta Primary Care Physic juan alberto Encounter [facility] Date(s): 09/20/22 - 10/20/22 [facility] [address] [place] [address]- Allergies, Adverse Reactions, Alerts Substance Reaction Severity Status morphine hives, SOB Active Wellbutrin rash Active cannabis (Schedule I substance) itching/vomiting Active contrast media (iodine-based) itching throughout body Active penicillins hive Active Reglan Active Other Environmental Allergy mercury-fillings Active Immunizations Given and Recorded Vaccine Date Status Refusal Reason pneumococcal 20-valent conjugate vaccine 05/30/22 Recorded [id number] 12y+ bivalent booster vax 05/12/22 Recorded influenza [...] vaccine, inactivated 04/26/09 Arnoldo rded SARS-CoV-2 mRNA (lunfcsz-vhdu-wtahr) vax 03/10/22 Recorded SARS-CoV-2 mRNA (wtolvjg-eufw-tzhmp) vax 10/04/21 Recorded SARS-CoV-2 (COVID-19) mRNA BNT-162b2 [...] tablet, 0 Refills, Maintenance, 10/05/22 9:35:00EST, Tablet, [facility]/pharmacy #[id number], Partial fill upon patient request if the prescription is for a schedule II opioid drug., 155, cm, 09/26/22 14:02:00 ES... Start Date: 10/05/22 Status: Ordered baclofen 20 mg oral tablet 20 mg, 1, tablet, By Mouth, 3 times a day, # 270 tablet, Refills 2, Tot. Refills 2, Maintenance, 12/09/22 12:44:00 EDT, Route to Pharmacy Electronically, [facility], Partial fill upon patient [...] tablet, By Mouth, 2 times a day, [facility] Brand please (Senior Wellness), # 360 tablet, 3 Refills, Maintenance, 08/11/21 17:02:00 EST, Tablet, [facility]/pharmacy #[id number], Partial fill upon patient request if the prescription is for a schedule II opioid drug., 2... Start Date: 08/11/21 Stop Date: 08/06/22 Status: Ordered calcium carbonate 600 mg oral tablet 1 tablet = 600 mg, By Mouth, 2 times a day, # 180 tablet, 2 Refills, Maintenance, 01/06/23 14:02:00EDT, Tablet, [facility]/pharmacy #[id number], Partial fill upon patient request [...] 8:43:55 EST Start Date: 07/09/18 Status: Ordered [facility] SENIOR PROBIOTIC CAPSULE TAKE 2 CAPSULES BY MOUTH TWICE A DAY Start Date: 11/01/21 Status: Ordered [facility] Senior Probiotic Capsule [facility] Senior Probiotic Capsule, See Instructions, # [...] 450 mL, 5 Refills, 03/02/22 8:08:00 EDT, [facility]/pharmacy #[id number], 155, cm, 02/23/22 8:04:00 EDT, [...] Refills, Soft Stop, 05/26/22 8:59:00 EDT, Tablet, [facility]/pharmacy #[id number], Partial fill upon patient request [...] Tot. Refills 2, Maintenance, 20-30mmghg FF Petite (short),Cjumt-lso-ddgi, soft knee, black silicone Stock code [id number] Part #[id number], Size III. [facility] [id number], 12/07/21 11:32:00 EDT,... Start Date: 12/07/21 Status: Ordered levothyroxine 0.088 mg oral tablet 1 tablet = 88 mcg, By Mouth, Daily, # 90 tablet, 1 Refills, Maintenance, 09/08/22 14:26:00 EST, Tablet, [facility], Partial fill upon patient request if the prescription is fora schedule II opioid drug., 155, cm, 07/12/22 14:10... Start Date: 09/08/22 Status: Ordered lisinopril 5 mg oral tablet 5 mg, 1, tablet, By Mouth, Daily, # 90 tablet, Refills 3, Tot. Refills 3, Maintenance, 02/24/22 15:53:00 EDT, Route to Pharmacy Electronically, [facility]/pharmacy #[id number], Partial fill upon patient request [...] capsule, 3 Refills, Maintenance, 06/04/22 16:03:00 EDT, [id number], 155, cm, 05/25/22 13:44:00 EDT, Height, 93.4, kg, 11/01/21 16:52:00 EDT, Dry Weight Start Date: 06/04/22 Status: Ordered Power [place] Lift with [place] split-leg sling Power [place] Lift with [place] split-leg sling, See Instructions, # 1 each, [...] 11/01/22 17:46:00 EDT, 07/12/22 17:46:00 EST, Tablet, [facility]/pharmacy #[id number], Partial fill upon pa... Start Date: 07/12/22 Stop Date: 11/01/22 Status: Ordered Provigil 200 mg oral tablet 1 tablet = 200 mg, By Mouth, 2 times a day, takes in am and lunchtime brand name only - dispense aswritten, # 56 tablet, 5 Refills, Maintenance, 10/05/22 17:39:00 EST, Tablet, [facility]/pharmacy #[id number], Partial fill upon patient request [...] 90 capsule, 2 Refills, 02/28/22 8:13:00 EDT, [facility]/pharmacy #[id number], 155,cm, 02/23/22 8:04:00 EDT, Height, 93.4, kg, 11/01/21 16:52:00 EDT, Dry Weight Start Date: 02/28/22 Status: Ordered Xarelto 20 mg oral tablet 1 tablet = 20 mg, By Mouth, Daily at supper, # 90 tablet, 3 Refills, Maintenance, 02/01/22 12:42:00EDT, Tablet, [facility], Partial [...] Member Role: Primary Care Nurse Address: Address: [address] [place] [address] [address] [facility] [place] [address]- [place] Name: Emma Mendoza RN Position: [facility] RN Member Role: Primary Care Nurse Name: Juan Manuel LIM, Kristen Acosta Position: [facility] Primary Care Physician Member Role: PCP Address: Address: [address] [place] [id number]- Name: Jade Medina Position: [facility] RN Member Role: Primary Care Nurse Name: Komal Goodrich Position: [facility] Outreach Member Role: Lifetime Consulting Physician Name: Godfrey Cano Position: [facility] RN Member Role: Primary Care Nurse Name: Anette Miranda RN Position: [facility] Onco RN Member Role: Primary Care Nurse Care Team Related Persons Name: DIOMEEDS WARNER Address: [address] [place] [address] Name: MOO HOWELL Address: [address] [place] [address] Name: MARLON GENTILE
--- OUTSIDE RECORDS SUMMARY | 2024-03-17 13:42 | XMS_ITS | Continuity of Care Document ---
Author Organization [facility] Address [address], [address] Floor, [address] [place] [address]- Care Team Providers Care Creel Operator Name Role Phone Juan Manuel LIM, Kristen Acosta Primary Care Physic juan alberto Encounter [facility] Date(s): 09/12/22 - 10/12/22 [facility] [address], [address], [address] [place] [address]- Allergies, Adverse Reactions, Alerts Substance Reaction Severity Status morphine hives, SOB Active penicillins hive Active Wellbutrin rash Active Reglan Active cannabis (Schedule I substance) itching/vomiting Active Other Environmental Allergy mercury-fillings Active contrast media (iodine-based) itching throughout body Active Immunizations Given and Recorded Vaccine Date Status Refusal Reason pneumococcal 20-valent conjugate vaccine 05/30/22 Recorded [id number] 12y+ bivalent booster vax 05/12/22 Recorded influenza [...] vaccine, inactivated 04/26/09 Arnoldo rded SARS-CoV-2 mRNA (orywimv-vpgy-inxud) vax 03/10/22 Recorded SARS-CoV-2 mRNA (pgjhpvt-khfu-rjppu) vax 10/04/21 Recorded SARS-CoV-2 (COVID-19) mRNA BNT-162b2 [...] tablet, 0 Refills, Maintenance, 10/05/22 9:35:00EST, Tablet, [facility]/pharmacy #[id number], Partial fill upon patient request if the prescription is for a schedule II opioid drug., 155, cm, 09/26/22 14:02:00 ES... Start Date: 10/05/22 Status: Ordered baclofen 20 mg oral tablet 20 mg, 1, tablet, By Mouth, 3 times a day, # 270 tablet, Refills 2, Tot. Refills 2, Maintenance, 12/09/22 12:44:00 EDT, Route to Pharmacy Electronically, [facility], Partial fill upon patient request if the prescription is for a... Start Date: 12/09/22 Stop Date: 09/05/23 Status: Ordered baclofen 20 mg oral tablet 20 mg, 1, tablet, By Mouth, 3 times a day, for 90 days, # 270 tablet, Refills 2, Tot. Refills 2, Hard Stop 12/09/22 12:44:00 EDT, 03/14/22 12:44:00 EDT, Route to Pharmacy Electronically, [facility]/pharmacy#[id number], Partial fill upon patient request if the pre... Start Date: 03/14/22 Stop Date: 12/09/22 Status: Ordered bifidobacterium-lactobacillus oral tablet 2 tablet, By Mouth, 2 times a day, [facility] Brand please (Senior Wellness), # 360 tablet, 3 Refills, Maintenance, 08/11/21 17:02:00 EST, Tablet, [facility]/pharmacy #[id number], Partial fill upon patient request if the prescription is for a schedule II opioid drug., 2... Start Date: 08/11/21 Stop Date: 08/06/22 Status: Ordered calcium carbonate 600 mg oral tablet 1 tablet = 600 mg, By Mouth, 2 times a day, # 180 tablet, 2 Refills, Maintenance, 01/06/23 14:02:00EDT, Tablet, [facility]/pharmacy #[id number], Partial fill upon patient request [...] EST Start Date: 07/09/18 Status: Ordered [facility] SENIOR PROBIOTIC CAPSULE TAKE 2 CAPSULES BY MOUTH TWICE A DAY Start Date: 11/01/21 Status: Ordered [facility] Senior Probiotic Capsule [facility] Senior Probiotic Capsule, See Instructions, # [...] mL, 5 Refills, 03/02/22 8:08:00 EDT, [facility]/pharmacy #[id number], 155, cm, 02/23/22 8:04:00 EDT, [...] Soft Stop, 05/26/22 8:59:00 EDT, Tablet, [facility]/pharmacy #[id number], Partial fill upon patient request [...] 13:45:00 EDT, [facility] Start Date: 01/11/22 Status: Ordered gabapentin 300 mg oral capsule 300 mg, 1, capsule, By Mouth, 3 times a day, for 90 days, # 270 capsule, Refills 2, Tot. Refills 2,Hard Stop 02/15/23 7:44:00 EDT, 05/21/22 7:44:00 EDT, Route to Pharmacy Electronically, [facility], Partial fill upon patient re... [...] Tot. Refills 2, Maintenance, 20-30mmghg FF Petite (short),Jylmq-zkc-bdtf, soft knee, black silicone Stock code [id number] Part #[id number], Size III. [facility] [id number], 12/07/21 11:32:00 EDT,... Start Date: 12/07/21 Status: Ordered levothyroxine 0.088 mg oral tablet 1 tablet = 88 mcg, By Mouth, Daily, # 90 tablet, 1 Refills, Maintenance, 09/08/22 14:26:00 EST, Tablet, [facility], Partial fill upon patient request if the prescription is fora schedule II opioid drug., 155, cm, 07/12/22 14:10... Start Date: 09/08/22 Status: Ordered lisinopril 5 mg oral tablet 5 mg, 1, tablet, By Mouth, Daily, # 90 tablet, Refills 3, Tot. Refills 3, Maintenance, 02/24/22 15:53:00 EDT, Route to Pharmacy Electronically, [facility]/pharmacy #[id number], Partial fill upon patient request if the prescription is for a schedule II opioid drug.... Start Date: 02/24/22 Status: Ordered lisinopril 5 mg oral tablet See Instructions, TAKE 1 TABLET DAILY, # 90 tablet, Refills 1, Maintenance, 09/24/22 19:24:00 EST, Instructions Replace Required Details, Route to Pharmacy Electronically, [facility], 155, cm, 07/12/22 14:10:00 EST, Height, 93.4, k... Start Date: 09/24/22 Status: Ordered Mapap 500 mg oral capsule See Instructions, TAKE 2 CAPSULES BY MOUTH 4 TIMES A DAY NEEDED FOR PAIN, # 480 capsule, 3 Refills, Maintenance, 06/04/22 16:03:00 EDT, [facility] STORE [id number], 155, cm, 05/25/22 13:44:00 EDT, Height, 93.4, kg, 11/01/21 16:52:00 EDT, Dry Weight Start Date: 06/04/22 Status: Ordered Power [place] Lift with [place] split-leg sling Power [place] Lift with [place] split-leg sling, See Instructions, # 1 [...] 17:46:00 EDT, 07/12/22 17:46:00 EST, Tablet, [facility]/pharmacy #[id number], Partial fill upon pa... Start Date: 07/12/22 Stop Date: 11/01/22 Status: Ordered Provigil 200 mg oral tablet 1 tablet = 200 mg, By Mouth, 2 times a day, takes in am and lunchtime brand name only - dispense aswritten, # 56 tablet, 5 Refills, Maintenance, 10/05/22 17:39:00 EST, Tablet, [facility]/pharmacy #[id number], Partial fill upon patient request [...] 18:25:00 EDT, 07/05/22 18:25:00 EST, Tablet, [facility], Parti... Start Date: 07/05/22 Stop [...] capsule, 2 Refills, 02/28/22 8:13:00 EDT, [facility]/pharmacy #[id number], 155,cm, 02/23/22 8:04:00 EDT, Height, 93.4, kg, 11/01/21 16:52:00 EDT, Dry Weight Start Date: 02/28/22 Status: Ordered Xarelto 20 mg oral tablet 1 tablet = 20 mg, By Mouth, Daily at supper, # 90 tablet, 3 Refills, Maintenance, 02/01/22 12:42:00EDT, Tablet, [facility], Partial fill upon patient [...] Role: Primary Care Nurse Address: Address: [address] [place] [address] [address] [facility] [place] [address]- [place] Name: Emma Mendoza RN Position: [facility] RN Member Role: Primary Care Nurse Name: Juan Manuel LIM, Kristen Acosta Position: [facility] Primary Care Physician Member Role: PCP Address: Address: [address] [place] [address]- Name: Jade Medina Position: [facility] RN Member Role: Primary Care Nurse Name: Komal Goodrich Position: [facility] Outreach Member Role: Lifetime Consulting Physician Name: Godfrey Cano Position: [facility] RN Member Role: Primary Care Nurse Name: Anette Miranda RN Position: [facility] Onco RN Member Role: Primary Care Nurse Care Team Related Persons Name: DIOMEDES WARNER Address: home [address] [place] [address] Name: MOO HOWELL Address: home [address] [place] [address] Name: MARLON GENTILE
--- OUTSIDE RECORDS SUMMARY | 2024-03-17 13:42 | XMS_ITS | Continuity of Care Document ---
Author Organization [facility] Address [address] [place] [address]- Care Team Providers Care Office Director Name Role Phone Juan Manuel LIM, Kristen Acosta Primary Care Physic juan alberto Encounter [facility] Date(s): 04/05/22 - 05/05/[address] [address] Attending Physician: Alissa Gannon Admitting Physician: Admtr, Alissa Referring Physician: Admtr, Ar8 Allergies, Adverse Reactions, Alerts Substance Reaction Severity Status morphine hives, SOB Active Wellbutrin rash Active cannabis (Schedule I substance) itching/vomiting Active contrast media (iodine-based) itching throughout body Active Other Environmental Allergy mercury-fillings Active penicillins hive Active Reglan Active Immunizations [...] vaccine, inactivated 04/26/09 Arnoldo rded SARS-CoV-2 mRNA (whmleis-brdi-xkpsb) vax 03/10/22 Recorded SARS-CoV-2 mRNA (yyyctsn-ouqs-pfecc) vax 10/04/21 Recorded SARS-CoV-2 (COVID-19) mRNA BNT-162b2 [...] 12/09/22 12:44:00 EDT, Route to Pharmacy Electronically, [facility], Partial fill upon patient [...] 01/11/22 14:02:00 EDT, Tablet, [facility], Partial [...] 3 Refills, Maintenance, 04/02/22 21:13:00 EDT, Gel, [facility]... Start Date: 04/02/22 Status: Ordered electric virginia [...] 01/11/22 13:45:00 EDT, Route to Pharmacy Electronically, [facility]... Start Date: 01/11/22 Status: Ordered [...] 02/20/22 7:44:00 EDT, [id number] Partial fill upon patient request if the pre... Start Date: 02/20/22 Stop Date: 05/21/22 Status: Ordered Juzo Compression Hose Juzo Compression Hose, See Instructions, # 2 each, Refills 2, Tot. Refills 2, Maintenance, 20-30mmghg FF Petite (short),Pjjlj-wgr-vmnb, soft knee, black silicone Stock code [id number] Part #[id number], Size III. [facility] [id number], 12/07/21 11:32:00 EDT,... Start Date: 12/07/21 Status: Ordered levothyroxine 0.088 mg oral tablet 1 tablet = 88 mcg, By Mouth, Daily, # 90 tablet, 3 Refills, Maintenance, 03/31/22 13:45:00 EDT, Tablet, [facility], Partial fill upon patient request if the prescription is fora schedule II opioid drug., 155, cm, 03/14/22 11:11... Start Date: 03/31/22 Status: Ordered lisinopril 5 mg oral tablet 5 mg, 1, tablet, By Mouth, Daily, # 90 tablet, Refills 3, Tot. Refills 3, Maintenance, 02/24/22 15:53:00 EDT, [facility]ically[id number], Partial fill upon patient request [...] 03/12/22 Status: Ordered Power [place] Lift with [place] split-leg sling Power [place] Lift with [place] split-leg sling, See Instructions, # 1 each, [...] 3 Refills, Maintenance, 02/28/22 8:12:00 EDT, Tablet, [facility]/pharmacy #[id number], [...] 3 Refills, Maintenance, 02/01/22 12:42:00EDT, Tablet, [facility], Partial [...] Name: Juan Manuel LIM, Kristen Acosta Address: [address] [place] [address]
--- OUTSIDE RECORDS SUMMARY | 2024-03-17 13:42 | XMS_ITS | Continuity of Care Document ---
Author Organization [facility] Address [address] [place] [address]- Care Team Providers Care Performance Improvement Coordinator Name Role Phone Juan Manuel LIM, Kristen Acosta Primary Care Physic juan alberto Encounter [facility] Date(s): 05/25/23 - 06/24/23 [facility] [address] [place] [address]- Allergies, Adverse Reactions, Alerts Substance Reaction Severity Status morphine hives, SOB Active Wellbutrin rash Active contrast media (iodine-based) itching throughout body Active penicillins hive Active Reglan Active cannabis (Schedule I substance) itching/vomiting Active Other Environmental Allergy mercury-fillings Active Immunizations Given and Recorded Vaccine Date Status Refusal Reason pneumococcal 20-valent conjugate vaccine 05/30/22 Recorded [id number]-IeO-1hQYH 12y+ bivalent booster vax 05/12/22 Recorded influenza [...] vaccine, inactivated 04/26/09 Arnoldo rded SARS-CoV-2 mRNA (mntjybb-wkdh-hffzo) vax 03/10/22 Recorded SARS-CoV-2 mRNA (cdcsnzu-fomy-otbni) vax 10/04/21 Recorded SARS-CoV-2 (COVID-19) mRNA BNT-162b2 [...] 12/09/22 12:44:00 EDT, Route to Pharmacy Electronically, [facility], Partial fill upon patient [...] 2, Maintenance, Juzo Compression Hose 2 pairs ejurn-zzq-yvzy Soft Knee FF Petite 20-30 mmHg Silicone, Black Stock Code [id number] I I I Part #[id number] Size I I I SKU... Start Date: [...] 03/12/23 Status: Ordered Power [place] Lift with [place] split-leg sling Power [place] Lift with [place] split-leg sling, See Instructions, # 1 each, [...] Role: Primary Care Nurse Address: Address: [address] [place] [address] [address] [place] [address]- Name: Emma Mendoza RN Position: [facility] AMB Nurse Member Role: Primary Care Nurse Name: Juan Manuel LIM, Kristen Acosta Position: [facility] Physician - Primary Care Member Role: PCP Address: Address: [address] [place] [address]- Name: Komal Goodrich Position: [facility] Outreach Member Role: Lifetime Consulting Physician Name: Godfrey Cano Position: [facility] RN Member Role: Primary Care Nurse Name: Anette Miranda RN Position: [facility] Onco RN Member Role: Primary Care Nurse Care Team Related Persons Name: DIOMEDES WARNER Address: home [address] [place] [address] Name: MOO HOWELL Address: [address] [place] [address] Name: MARLON GENTILE
--- OUTSIDE RECORDS SUMMARY | 2024-03-17 13:42 | XMS_ITS | Continuity of Care Document ---
Author Organization [facility] Address [address] [place] [address]- Care Team Providers Care Budget Engineer Name Role Phone Juan Manuel LIM, Kristen Acosta Primary Care Physic juan alberto Encounter [facility] Date(s): 03/08/23 - 04/07/23 [facility] [address] [place] [address]- Allergies, Adverse Reactions, Alerts Substance Reaction Severity Status morphine hives, SOB Active penicillins hive Active Wellbutrin rash Active Reglan Active cannabis (Schedule I substance) itching/vomiting Active Other Environmental Allergy mercury-fillings Active contrast media (iodine-based) itching throughout body Active Immunizations Given and Recorded Vaccine Date Status Refusal Reason pneumococcal 20-valent conjugate vaccine 05/30/22 Recorded [id number] 12y+ bivalent booster vax 05/12/22 Recorded influenza [...] vaccine, inactivated 04/26/09 Arnoldo rded SARS-CoV-2 mRNA (pjpokxi-dngs-ybbrr) vax 03/10/22 Recorded SARS-CoV-2 mRNA (ofvliwz-jdpu-aoobt) vax 10/04/21 Recorded SARS-CoV-2 (COVID-19) mRNA BNT-162b2 [...] 1 Refills, Maintenance, 12/11/22 17:34:00 EDT, Tablet, [facility]/pharmacy #[id number], Partial fill upon patient request if the prescription is for a schedule II opioid drug., 155, cm, 10/10/22 13:40:00 E... Start Date: 12/11/22 Status: Ordered baclofen 20 mg oral tablet 20 mg, 1, tablet, By Mouth, 3 times a day, # 270 tablet, Refills 2, Tot. Refills 2, Maintenance, 12/09/22 12:44:00 EDT, Route to Pharmacy Electronically, [facility], Partial fill upon patient request if the prescription is for a... Start Date: 12/09/22 Stop Date: 09/05/23 Status: Ordered bifidobacterium-lactobacillus oral tablet 2 tablet, By Mouth, 2 times a day, [facility] Brand please (Senior Wellness), # 360 tablet, 3 Refills, Maintenance, 08/11/21 17:02:00 EST, Tablet, [facility]/pharmacy #[id number], Partial fill upon patient request if the prescription is for a schedule II opioid drug., 2... Start Date: 08/11/21 Stop Date: 08/06/22 Status: Ordered calcium carbonate 600 mg oral tablet 1 tablet = 600 mg, By Mouth, 2 times a day, # 180 tablet, 2 Refills, Maintenance, 01/06/23 14:02:00EDT, Tablet, [facility]/pharmacy #[id number], Partial fill upon patient request if the prescription is for a schedule II opioid drug., 155, cm, 02/23/22 8:04:00 EDT... Start Date: 01/06/23 Stop Date: 10/03/23 Status: Ordered Centrum Silver Ultra Women's oral tablet 1 tablet, By Mouth, Daily, 0 Refills, Maintenance, 07/09/18 8:43:55 EST Start Date: 07/09/18 Status: Ordered [facility] SENIOR PROBIOTIC CAPSULE TAKE 2 CAPSULES BY MOUTH TWICE A DAY Start Date: 11/01/21 Status: Ordered [facility] Senior Probiotic Capsule [facility] Senior Probiotic Capsule, See Instructions, # [...] 450 mL, 5 Refills, 03/02/22 8:08:00 EDT, [facility]/pharmacy #[id number], 155, cm, 02/23/22 8:04:00 EDT, [...] Refills, Soft Stop, 03/27/23 18:43:00 EDT, Tablet, [facility]/pharmacy #[id number], Partial fill upon patient request if the prescription is for a schedule II opioid... Start Date: 03/27/23 Status: Ordered fluconazole 150 mg oral tablet 1 tablet = 150 mg, By Mouth, Every week, # 4 tablet, 1 Refills, Soft Stop, 05/26/22 8:59:00 EDT, Tablet, [facility]/pharmacy #[id number], Partial fill upon patient request [...] 19:36:00 EDT, Route to Pharmacy Electronically, [facility], 155, cm, 10/10/22 13:40:00 [...] 2, Maintenance, Juzo Compression Hose 2 pairs lmssj-zsr-gcen Soft Knee FF Petite 20-30 mmHg Silicone, Black Stock Code [id number] I I I Part #[id number] Size I I I SKU... Start Date: [...] capsule, 0 Refills, Maintenance, 03/12/23 9:16:00 EDT, [facility]/pharmacy #[id number], 155, cm, 10/10/22 13:40:00 EST, Height, 93.4, kg, 11/01/21 16:52:00 EDT, Dry Weight Start Date: 03/12/23 Status: Ordered Power [place] Lift with [place] split-leg sling Power [place] Lift with [place] split-leg sling, See Instructions, # 1 each, [...] 5 Refills, Maintenance, 12/11/22 17:34:00 EDT, Tablet, [facility]/pharmacy #[id number], Partial fill upon patient request [...] Role: Primary Care Nurse Address: Address: [address] [place] [address] [address] [place] [address]- Name: Emma Mendoza RN Position: [facility] AMB Nurse Member Role: Primary Care Nurse Name: Juan Manuel LIM, Kristen Acosta Position: [facility] Physician - Primary Care Member Role: PCP Address: Address: [address] [place] [address]- Name: Komal Goodrich Position: [facility] Outreach Member Role: Lifetime Consulting Physician Name: Godfrey Cano Position: [facility] RN Member Role: Primary Care Nurse Name: Anette Miranda RN Position: [facility] Onco RN Member Role: Primary Care Nurse Care Team Related Persons Name: DIOMEDES WARNER Address: [address] [place] [address] Name: MOO HOWELL Address: [address] [place] [address] Name: MARLON GENTILE
--- OUTSIDE RECORDS SUMMARY | 2024-03-17 13:42 | XMS_ITS | Continuity of Care Document ---
Author Organization [facility] Address Unknown Care Team Providers Care Cardiograph Operator Name Role Phone Juan Manuel LIM, Kristen December Karla Primary Care Physic juan alberto Encounter [facility] Date(s): 01/17/22 - 02/16/22 [facility] Attending Physician: Alissa Gannon Admitting Physician: AdmAlissa fisher Referring Physician: Admtr, Alissa Allergies, Adverse Reactions, Alerts Substance Reaction Severity Status morphine hives, SOB Active penicillins hive Active Wellbutrin rash Active Reglan Active cannabis (Schedule I substance) itching/vomiting Active Other Environmental Allergy mercury-fillings Active contrast media (iodine-based) itching throughout body Active Immunizations Given and Recorded Vaccine Date Status Refusal Reason SARS-CoV-2 mRNA (xalujlv-tmka-gikgu) vax 10/04/21 Recorded influenza virus vaccine, inactivated [...] EDT, 08/22/21 17:46:00 EST, Capsule, [facility]/pharmacy #[id number], Partial fill upon patient request if the prescription is for a schedul... Start Date: 08/22/21 Stop Date: 04/19/22 Status: Ordered ascorbic acid 1000 mg oral tablet 1 tablet = 1,000 mg, By Mouth, 2 times a day, # 90 tablet, 1 Refills, Maintenance, 08/11/21 17:03:00 EST, Tablet, [facility]/pharmacy #[id number], Partial fill upon patient request if the prescription is for a schedule II opioid drug., 153, cm, 06/27/21 7:47:00 ES... Start Date: 08/11/21 Status: Ordered baclofen 20 mg oral tablet 20 mg, 1, tablet, By Mouth, 3 times a day, # 360 tablet, Refills 1, Tot. Refills 1, Maintenance, 08/02/21 14:09:00 EST, Route to Pharmacy Electronically, [facility], Partial fill upon patient request if the prescription is for a... Start Date: 08/02/21 Status: Ordered bifidobacterium-lactobacillus oral tablet 2 tablet, By Mouth, 2 times a day, [facility] Brand please ([facility]), # 360 tablet, 3 Refills, [...] tablet, 3 Refills, Maintenance, 01/11/22 14:02:00EDT, Tablet, [facility], Partial [...] 3 Refills, Maintenance, 01/11/22 14:07:00 EDT, Gel, [facility], Partial fill [...] 450 mL, 0 Refills, 02/08/22 18:16:00 EDT, [facility]/pharmacy #[id number], 155, cm, 01/02/22 8:26:00 EDT, Height, [...] 01/11/22 13:45:00 EDT, [facility] Start Date: 01/11/22 Status: Ordered gabapentin [...] Tot. Refills 2, Maintenance, 20-30mmghg FF Petite (short),Nvtbb-yrx-ivqg, soft knee, black silicone Stock code [id number] Part #[id number], Size III. [facility] [id number], 12/07/21 11:32:00 EDT,... Start Date: 12/07/21 Status: Ordered levothyroxine 0.088 mg oral tablet 1 tablet = 88 mcg, By Mouth, Daily, # 90 tablet, 1 Refills, Maintenance, 07/13/21 14:09:00 EST, Tablet, [facility], Partial fill upon patient request if the prescription is fora schedule II opioid drug., 153, cm, 06/27/21 7:47:... Start Date: 07/13/21 Status: Ordered lisinopril 5 mg oral tablet 5 mg, 1, tablet, By Mouth, Daily, # 90 tablet, Refills 3, Tot. Refills 3, Maintenance, 01/11/22 13:42:00 EDT, Route to Pharmacy Electronically, [facility], Partial fill upon patient request if the prescription is for a schedule... Start Date: 01/11/22 Status: Ordered Power [place] Lift with [place] split-leg sling Power [place] Lift with [place] split-leg sling, See Instructions, # 1 each, [...] 1 Refills, Maintenance, 12/09/21 1:28:00 EDT, Tablet, [facility]/pharmacy #[id number], Partial [...] 90 capsule, 1 Refills, 08/11/21 17:04:00 EST, [facility]/pharmacy #[id number], 153, cm, 06/27/21 7:47:00 EST, Height Start Date: 08/11/21 Status: Ordered Xarelto 20 mg oral tablet 1 tablet = 20 mg, By Mouth, Daily at supper, # 90 tablet, 3 Refills, Maintenance, 02/01/22 12:42:00EDT, Tablet, [facility], Partial fill upon patient request [...]
--- OUTSIDE RECORDS SUMMARY | 2024-03-17 13:42 | XMS_ITS | Continuity of Care Document ---
Author Organization [facility] Address [address] [place] [address] aaron, [address] [place] [address]- Care Team Providers Care Toe Trimmer Name Role Phone Rey CENTENO, Javy Lerma Primary Care Physician Encounter [facility] Date(s): 02/21/21 - 03/23/21 [facility] [address] [place] [address] Drive, [address] [place] [address]- Allergies, Adverse Reactions, Alerts Substance Reaction Severity [...]
--- OUTSIDE RECORDS SUMMARY | 2024-03-17 13:42 | XMS_ITS | Continuity of Care Document ---
Author Organization [facility] Address [address] [place] [address]- Care Team Providers Care Asbestos Worker Name Role Phone Juan Manuel LIM, Kristen Acosta Primary Care Physic juan alberto Encounter [facility] Date(s): 06/27/21 - 07/27/21 [facility] [address] [place] [address]- Attending Physician: Alissa Gannon Admitting Physician: AdmAlissa fisher Referring Physician: AdmtrAlissa Allergies, Adverse Reactions, Alerts Substance Reaction Severity Status morphine hives, SOB Active penicillins hive Active Wellbutrin rash Active cannabis (Schedule I substance) itching/vomiting Active contrast media (iodine-based) itching throughout body Active Other Environmental Allergy mercury-fillings Active Reglan Active Immunizations Given and Recorded [...] tablet, By Mouth, Daily, [facility] ([facility]), # 180 tablet, 3 Refills, Maintenance, [...] tablet, 1 Refills, Maintenance, 07/13/21 14:17:00EST, Tablet, [facility], Partial fill [...] 1 Refills, Maintenance, 07/14/21 17:19:00 EST, Tablet, [facility], Partial fill upon patient request if t... Start Date: 07/14/21 Stop Date: 09/08/21 Status: Ordered Turmeric = 750 mg, By Mouth, 2 times a day, 0 Refills, Maintenance, 07/09/18 8:47:35 EST Start Date: 07/09/18 Status: Ordered Vitamin D3 2000 intl units oral capsule 1 capsule, By Mouth, Daily, # 90 capsule, 1 Refills, [facility] [id number], 153, cm, 04/25/21 13:34:00 EDT, Height Start [...]
[2024-03-17 14:56] VITALS: BP 119/68; PULSE 84; RESP 16; TEMP 36.7; O2SAT 97
[2024-03-17 15:04] VITALS: BMI 40.2
[2024-03-17] MEDS: Lactated Ringers 1,000 ML 100 ML IVCONT (15:25)
[2024-03-17 15:45] LABS: Hematocrit 34.6 % (37.0-47.0); Hemoglobin 10.9 g/dl (12.0-16.0); Mean Corpuscular HGB Conc 31.5 g/dl (31.0-35.0); Mean Corpuscular Hemoglobin 29.1 pg (27.0-33.0); Mean Corpuscular Volume 92.3 fL (80.0-98.0); Mean Platelet Volume 9.4 fL (9.4-12.3); Platelet Count 292 X10*3/uL (160-400); Red Blood Count 3.75 X10*6/uL (4.20-5.50); Red Cell Distribution Width 14.5 % (11.0-16.0); White Blood Count 10.9 X10*3/uL (4.8-10.8)
--- NOTE | 2024-03-17 15:49 | HO.ANESPROP2 ---
[facility] Active Problems Active Problems: All Active Problems Urinary tract infection (Acute) Past Medical History Medical History (Updated 03/14/24 @ 10:25 by Kourtney Brand, PAUL) Wheelchair dependence Recurrent UTI (urinary tract infection) Sacral decubitus ulcer Pulmonary emboli Cardiac arrest History of trigeminal neuralgia COVID-19 vaccine series completed Osteoporosis Neurogenic urinary bladder disorder NENO (obstructive sleep apnea) Parkinson's variant of multiple system atrophy Thyroid disease History of neurogenic bladder History of MRSA infection Hx of lymphoma Arthritis Back pain Hx pulmonary embolism DVT (deep venous thrombosis) Anemia Hiatal hernia Tran catheter in place Bladder stones Multiple sclerosis CVA (cerebral vascular accident) Myocardial infarction HTN (hypertension) Painful bladder spasm Functional capacity: wheelchair bound Patient : No Family History Family history of problems with anesthesia: No Surgical History Surgical History Hx of hysterectomy Hx of lumpectomy Hx of vitrectomy History of intraocular lens implant Hx of adenoidectomy Hx of tonsillectomy Hx of laminectomy History of cystoscopy History of biopsy of bladder History of bladder surgery H/O colonoscopy History of Problems with Anesthesia: No Social History Social History Household Members: None Housing: Apartment Are you a primary associate director career services to a significant other at home: No Do you presently have visiting nurse or other home services: Yes (CONSULTING SERVICES ASSOCIATE) Patient Tobacco Use Status: Never used Tobacco Second Hand Smoke Exposure: No Use of substances other than those prescribed or required for medical reasons: No Are you DNR?: No Advance Directives: No Advance Directives Information Provided: Yes Advance Directives Date on File: 07/05/20 service: No Current occupational status: disabled Meds Allergies Allergy/AdvReac Type Severity Reaction Status Date / Time mercury (elemental) Allergy Severe Anaphylaxis Verified 11/19/23 13:58 Penicillins Allergy Severe Hives Verified 11/19/23 13:58 bupropion [From Wellbutrin] Allergy Intermediate Hives Verified 11/19/23 13:58 Iodinated Contrast Media Allergy Intermediate Hives Verified 11/19/23 13:58 [IV Contrast Dye] morphine Allergy Intermediate Hives Verified 11/19/23 13:58 metoclopramide [From Reglan] AdvReac Intermediate Parkinson Verified 11/19/23 13:58 syndrome Active Medications: Current Medications Lactated Ringer's (Lr) 1,000 mls @ 100 mls/hr IVCONT .Q10H JUWAN Last Admin: 03/17/24 15:25 Dose: 100 mls/hr Levofloxacin (Levaquin) 500 mg in 100 mls @ 100 mls/hr IV PREOP ONE Stop: 03/17/24 15:51 Home Medications ?Medication ?Instructions ?Recorded ?Confirmed ?Last Taken ?Type acetaminophen 500 mg capsule 1,000 mg PO BID 06/18/20 12/06/23 02/13/22 History furosemide 40 mg tablet 40 mg PO DAILY 06/18/20 12/06/23 02/13/22 History levothyroxine 88 mcg tablet 88 mcg PO DAILY 06/18/20 12/06/23 11/19/23 History lisinopril 5 mg tablet 5 mg PO DAILY 06/18/20 12/06/23 11/19/23 History rivaroxaban 20 mg tablet 20 mg PO DAILY 06/18/20 12/06/23 11/16/23 History cholecalciferol (vitamin D3) 50 1 cap PO DAILY 02/13/22 12/06/23 02/13/22 History mcg (2,000 unit) capsule docusate sodium 100 mg capsule 100 mg PO DAILY 11/14/22 12/06/23 Unknown History gabapentin 300 mg capsule 300 mg PO TID 07/12/23 12/06/23 Unknown History modafinil 200 mg tablet (Provigil) 200 mg PO BID 07/12/23 12/06/23 Unknown History Exam Height,Weight and Vital Signs: Height 5 ft Weight 93.44 kg Last Vital Signs Temp 98.0 F 03/17/24 14:56 Pulse 84 03/17/24 14:56 Resp 16 03/17/24 14:56 BP 119/68 03/17/24 14:56 Pulse Ox 97 03/17/24 14:56 O2 Del Method Room Air 03/17/24 14:56 Pertinent Lab Results Pertinent Lab Results: Laboratory Tests 03/17/24 15:30 WBC 10.9 H RBC 3.75 L Hgb 10.9 L Hct 34.6 L MCV 92.3 MCH 29.1 MCHC 31.5 RDW 14.5 Plt Count 292 MPV 9.4 Absolute Nucleated RBC 0.000 Nucleated RBC % (auto) 0.0 Airway Mallampati Class: III TM Dist: >3cm Neck ROM: Full Heart: RRR Lungs: CTA Assessment and Plan Assessment Anesthesia Assessment: Anesthesia Plan Discussed Final Anesthetic Review Family History of Problems with Anesthesia: No History of Problems with Anesthesia: No NPO: Yes ASA Class: III Final Preanesthetic Review: Meds/Allgs Chart Reviewed, Consent Obtained/Reviewed and Anes Risks/Benef Reviewed Anesthetic Plan Anesthetic Plan: GA Disposition: Standard PACU
[2024-03-17 15:59] LABS: Anion Gap 13 (12-20); Blood Urea Nitrogen 12 mg/dL (9-16); Calcium 9.6 mg/dL (8.4-10.2); Carbon Dioxide 23 mmol/L (22-29); Chloride 106 mmol/L (96-108); Creatinine Clr Calc Pharmacy 66.7; Estimated Glomerular Filt Rate > 60; Glucose Fasting 101 mg/dL (60-99); Sodium 138 mmol/L (135-145)
--- NOTE | 2024-03-17 16:23 | MHC.SHP ---
Pre-Procedural Eval Section A - 24 Hr Update-Section A only Date of Service: 03/17/24 The patient is an INPATIENT: No Changes since office visit: No Cold of Flu in the past 2 weeks, No New Medical Problems, No Changes in Medication and No Patient answered all questions The patient has been examined within 24 hours of the surgical procedure. The History & Physical has been completed within 30 days and I have reviewed it.: No Section B - Complete if H&P > 30 days Chief Complaint: Urinary tract infection, site not specified Details of Present Illness: Admission to [facility] 3 weeks ago for left ureteric stone. Stent placed. Here for completion procedure. Cystoscopy, left stent removal, ureteroscopy. Relevant Family History (Specify if Yes): No Relevant Social History: None Present Medications: see Short Stay Collaborative assessment Medical History: Significant History History of Previous Operations: Relevant previous surgery/procedure and date(s) Allergies: Allergies Allergy/AdvReac Type Severity Reaction Status Date / Time mercury (elemental) Allergy Severe Anaphylaxis Verified 11/19/23 13:58 Penicillins Allergy Severe Hives Verified 11/19/23 13:58 bupropion [From Wellbutrin] Allergy Intermediate Hives Verified 11/19/23 13:58 Iodinated Contrast Media Allergy Intermediate Hives Verified 11/19/23 13:58 [IV Contrast Dye] morphine Allergy Intermediate Hives Verified 11/19/23 13:58 metoclopramide [From Reglan] AdvReac Intermediate Parkinson Verified 11/19/23 13:58 syndrome Review of Systems Sugical H&P ROS: Negative: Constitution, Cardiovascular, Respiratory, Neurological, Psychiatric, Hem-Onc, Allergic/Immunologic, Gastrointestinal, Genitourinary, Musculoskeletal, Integumentary, Endocrine and Eyes/Ears/Nose/Throat Exam Surgical H&P Exam: Normal: HEENT, Normal: Heart, Normal: Lungs, Normal: Extremities, Normal: Abdomen, Normal: Skin and Normal: Neurological Plan Diagnosis/Plan: Unchanged (Cystoscopy, left stent removal, left retrograde, left ureteroscopy with stone basketing) I have reviewed the history and physical and performed a pertinent physical examination on my patient. No changes have occurred unless specified. Time Spent With Patient Time: Total time managing care of this patient today ____ minutes.
--- NOTE | 2024-03-17 17:22 | P.OP_ITS ---
Operative Note Operative Note Date of Service: 03/17/24 Narrative: PreOperative Diagnosis: Left indwelling stent and left ureteric stone Post Operative Diagnosis: Left indwelling stent, stone had passed Procedure: - cystoscopy, left retrograde - removal left indwelling stent - left ureteroscopy flexible Surgeon: Dr Gage Bass Anesthesia: General Indications for procedure: Underwent admission [facility] 3 weeks ago for introduction of left indwelling stent for left ureteric stone. Here for definitive follow-up procedure. Procedure: After informed consent was verified patient was brought to the operating placed in supine position. Anesthesia was administered per protocol. Patient was placed in modified dorsal lithotomy position and prepped and draped in a sterile fashion. Safety pause time-out and side of surgery confirmed. Antibiotics confirmed. 22 Persian cystoscope was inserted per urethra. Bladder was normal in its entirety. Both ureteric orifices were in normal position. Stent emerging from left orifice. The left ureteric orifice was cannulated and a retrograde examination was performed. No filling defects seen around the stent.. A Sensor guidewire was placed up to the level of the renal pelvis under fluoroscopy. A stent grasper was introduced. The indwelling stent on the left side was removed along with the rigid cystoscope. The digital flexible ureteral scope was placed over the wire into the left renal pelvis. The left kidney was examined its entirety. Both upper and lower pole calices. There was a degree of mucus in the area but no definitive stones. The there was no stone seen submucosally on tissue. After the kidney was examined the flexible ureteral scope was slowly withdrawn. No stone or debris or narrowing was seen along the length of the ureter. At the completion of the stone procedure a Sensor wire was placed back into the renal pelvis. [The rigid cystoscope was backloaded over the wire and advanced into the bladder.] A double balloon 18 Persian Tran catheter was placed without difficulty.. The patient tolerated the procedure well and was extubated in the operating room, and transferred in stable condition to the recovery area. Pathology: [] Drains: []
[2024-03-17 17:33] VITALS: BP 123/59; PULSE 83; RESP 16; TEMP 36.6; O2SAT 92
[2024-03-17 17:38] VITALS: BP 115/64; PULSE 81; RESP 16; O2SAT 93
[2024-03-17 17:43] VITALS: BP 118/61; PULSE 80; RESP 16; O2SAT 94
--- NOTE | 2024-03-17 17:46 | HO.POSTANES ---
Post Anesthesia Evaluation Post Anesthesia Evaluation Date of Service: 03/17/24 Vital Signs: Vital Signs Temp Pulse Resp BP Pulse Ox O2 Del Method 03/17/24 17:43 80 16 118/61 94 Room Air 03/17/24 17:38 81 16 115/64 93 Room Air 03/17/24 17:33 98 F 83 16 123/59 L 92 Room Air 03/17/24 14:56 98.0 F 84 16 119/68 97 Room Air Anesthesia: General LMA Mental Status: Awake Pain Control: Satisfactory Nausea/Vomiting: None Hydration: Adequate Anesthesia-Related Issues: No Anes. Related Issues
[2024-03-17 17:48] VITALS: BP 116/62; PULSE 83; RESP 14; TEMP 36.6; O2SAT 94
[2024-03-17] MEDS: Phenazopyridine HCL 100 MG TABLET PO (18:00)
[2024-03-17 18:03] VITALS: BP 118/61; PULSE 81; RESP 18; TEMP 36.6; O2SAT 95
== END 2024-03-17 18:20 | disposition home or self-care (01) ==
PROVIDERS: Nurse Practitioner; PCP Family Medicine; Visit Provider Urology
PROC: 0TJB8ZZ Inspection of Bladder, Via Natural or Artificial Opening Endoscopic (ICD-10-PCS; CPT 52005; principal; 2024-03-17 15:30)
DX: N20.1 Calculus of ureter (principal); Z96.0 Presence of urogenital implants; N39.0 Urinary tract infection, site not specified; N31.9 Neuromuscular dysfunction of bladder, unspecified; G35 Multiple sclerosis; G20.A1 Parkinson's disease without dyskinesia, without mention of fluctuations; I10 Essential (primary) hypertension; I25.2 Old myocardial infarction; G47.33 Obstructive sleep apnea (adult) (pediatric); Z86.711 Personal history of pulmonary embolism; Z86.73 Personal history of transient ischemic attack (TIA), and cerebral infarction without residual deficits; M81.0 Age-related osteoporosis without current pathological fracture; Z99.3 Dependence on wheelchair; Z66 Do not resuscitate; Z79.899 Other long term (current) drug therapy; Z88.0 Allergy status to penicillin; Z88.5 Allergy status to narcotic agent; Z91.041 Radiographic dye allergy status; Z88.8 Allergy status to other drugs, medicaments and biological substances; Z98.890 Other specified postprocedural states
CPT/HCPCS: 52310; 36415; 80048; 85027; J1100; J1956; J2250; J2371; J2405; J2704; J3010; Q9967

== ENCOUNTER → 2024-03-17 13:22 | Outpatient (BNV) | payer MEDICARE, MEDICAID, SELFPAY | PROVIDERS: PCP Family Medicine; Visit Provider Urology | DX: N20.1 Calculus of ureter (principal) | CPT/HCPCS: 52310; 74420 ==

== ENCOUNTER 2024-03-18 12:01 | Inpatient (IN) | payer MEDICARE, MEDICAID, SELFPAY ==
[2024-03-18] VITALS (11 sets, daily range): BP systolic 93–152; BP diastolic 34–86; PULSE 94–121; RESP 16–27; TEMP 36.5–40.1; O2SAT 91–97; BMI 31.3; BMI 32.1
--- NOTE | ~2024-03-18 | CT_ITS ---
EXAMINATION: CT head/brain wo IV con CLINICAL INFORMATION: Reason for Exam bacteremia COMPARISON: None. TECHNIQUE: Contiguous axial imaging was performed from the skull base to vertex without intravenous contrast. Sagittal and coronal reformatted images were obtained. This CT examination was performed using dose optimization techniques as appropriate, variously including the following: * Automated exposure control * Adjustment of mA and/or kV according to patient size (this includes techniques or standardized protocols for targeted exams where dose is matched to indication/reason for exam; i.e. extremities or head) Use of iterative reconstruction technique DLP: 912.08 mGy-cm mGy-cm FINDINGS: There is no evidence of acute intracranial hemorrhage. No mass-effect or ventricular shift is noted. No acute, territorial loss of estes-white differentiation. Generalized cerebral volume loss with associated ventricular and sulcal prominence. Dilated perivascular spaces along the inferior left greater than right basal ganglia.Periventricular and subcortical white matter hypodensity is nonspecific but likely represents chronic microvascular ischemic change. Intracranial atherosclerotic calcification is noted. No depressed calvarial fracture. Trace ethmoid air cell mucosal thickening. The mastoid air cells are clear. Left intraocular lens replacement. CT/CT head/brain wo IV con IMPRESSION: No acute intracranial hemorrhage or territorial loss of estes-white differentiation. Moderate chronic microvascular ischemic change and generalized cerebral volume loss.
--- NOTE | ~2024-03-18 | CT_ITS ---
EXAMINATION: CT ABDOMEN AND PELVIS WITHOUT CONTRAST CLINICAL INFORMATION: Hydronephrosis COMPARISON: Stent removal yesterday TECHNIQUE: Multidetector volumetric imaging was performed from the superior aspect of the liver through the pubic symphysis. Sagittal and coronal reformatted images were obtained on the technologist's workstation. This CT examination was performed using dose optimization techniques as appropriate, variously including the following: *Automated exposure control *Adjustment of mA and/or kV according to patient size (this includes techniques or standardized protocols for targeted exams where dose is matched to indication/reason for exam; i.e. extremities or head) *Use of iterative reconstruction technique DLP: 875 mGy-cm FINDINGS: LUNG BASES: Bibasilar atelectasis is seen. Multiple calcified pulmonary granulomas are seen. There are a few tiny noncalcified micronodules. Bronchial thickening is present. LIVER, GALLBLADDER, AND BILIARY TREE: The liver is enlarged at 21 cm in greatest length with decreased attenuation consistent with hepatic steatosis.. No focal hepatic lesion or biliary ductal dilatation is present. The gallbladder is unremarkable with no evidence of radiopaque gallstones, gallbladder wall thickening, or obvious pericholecystic inflammatory changes. PANCREAS: Unremarkable. SPLEEN: Unremarkable. ADRENAL GLANDS: Unremarkable. KIDNEYS AND URETERS: The right kidney appears unremarkable aside from the presence of a 1 to 2 mm punctate nonobstructing calculus (5:60). No concerning masses or hydronephrosis. On the left, there is mild dilatation of the left renal collecting system and ureter. No calculi are seen in the ureter. There is marked perinephric stranding around the left kidney. No intrarenal calculi are seen. No renal mass lesions are detected. BLADDER: Tran catheter is present in the bladder which is decompressed and contains a small amount of air. GASTROINTESTINAL TRACT: The small and large bowel are unremarkable. The appendix is unremarkable. ABDOMINAL WALL: No significant hernia is appreciated. LYMPH NODES: No retroperitoneal lymphadenopathy. VASCULAR: Calcific atherosclerotic changes are present in the aorta and iliofemoral vessels. There is no evidence of an abdominal aortic aneurysm. PELVIC VISCERA: The uterus is not seen. An abnormal adnexal mass is not detected. No free intraperitoneal fluid is present. OSSEOUS STRUCTURES: Degenerative changes are present throughout the spine. No bony destructive lesions. CT/CT abdomen pelvis wo IV con IMPRESSION: 1. Mild left-sided hydronephrosis with marked perinephric stranding. No ureteral calculi are seen. Findings may be secondary to the stent that was removed yesterday. 2. Incidental note made of enlarged fatty liver, calcified pulmonary granulomas, hysterectomy and degenerative changes in the spine. Fleischner guidelines were followed.
--- NOTE | 2024-03-18 12:27 | ED.FEVER ---
HPI - Fever General Chief Complaint: Fever Stated Complaint: fever body aches s/p surgery Time Seen by Provider: 03/18/24 12:16 Source: patient Limitations: no limitations History of Present Illness HPI Narrative: This is 69 years old patient history of MS presented to the ED via ambulance with a chief complaint of fever chills. She was found to be febrile in the ED with a temperature of 104.2 degrees, she had urologic procedure yesterday by Dr. Kali LIM elicited complaint: fever Pertinent past history: other (MS) Onset (ago): day(s) (1) Exacerbating factors: nothing Relieving factors: nothing Associated symptoms: chills Related Data Home Medications ?Medication ?Instructions ?Recorded ?Confirmed acetaminophen 500 mg capsule 1,000 mg PO BID 06/18/20 12/06/23 furosemide 40 mg tablet 40 mg PO DAILY 06/18/20 12/06/23 levothyroxine 88 mcg tablet 88 mcg PO DAILY 06/18/20 12/06/23 lisinopril 5 mg tablet 5 mg PO DAILY 06/18/20 12/06/23 rivaroxaban 20 mg tablet 20 mg PO DAILY 06/18/20 12/06/23 cholecalciferol (vitamin D3) 50 1 cap PO DAILY 02/13/22 12/06/23 mcg (2,000 unit) capsule docusate sodium 100 mg capsule 100 mg PO DAILY 11/14/22 12/06/23 gabapentin 300 mg capsule 300 mg PO TID 07/12/23 12/06/23 modafinil 200 mg tablet (Provigil) 200 mg PO BID 07/12/23 12/06/23 Previous Rx's ?Medication ?Instructions ?Recorded fosfomycin tromethamine 3 gram 1 packet PO Q OTHER DAY 2 doses #2 07/17/23 oral packet packets ascorbic acid (vitamin C) 1,000 mg 1,000 mg PO BID 90 days #180 tabs 09/07/23 tablet (Vitamin C) cefuroxime axetil 250 mg tablet 250 mg PO BID UTI 7 days #14 tabs 09/24/23 estradiol 0.01% (0.1 mg/gram) See Rx Instructions .Route DAILY 11/05/23 vaginal cream 30 days #42.5 grams nitrofurantoin 100 mg PO BID 10 days #20 caps 12/06/23 monohydrate/macrocrystals 100 mg capsule (Macrobid) fosfomycin tromethamine 3 gram 1 packet PO Q3D 9 days #3 ea 01/01/24 oral packet nitrofurantoin 100 mg PO BID 7 days #14 caps 01/01/24 monohydrate/macrocrystals 100 mg capsule (Macrobid) sulfamethoxazole 800 1 tab PO BID 14 days #28 tabs 03/05/24 mg-trimethoprim 160 mg tablet (Bactrim DS) Allergies Allergy/AdvReac Type Severity Reaction Status Date / Time mercury (elemental) Allergy Severe Anaphylaxis Verified 03/18/24 12:09 Penicillins Allergy Severe Hives Verified 03/18/24 12:09 bupropion [From Wellbutrin] Allergy Intermediate Hives Verified 03/18/24 12:09 Iodinated Contrast Media Allergy Intermediate Hives Verified 03/18/24 12:09 [IV Contrast Dye] morphine Allergy Intermediate Hives Verified 03/18/24 12:09 metoclopramide [From Reglan] AdvReac Intermediate Parkinson Verified 03/18/24 12:09 syndrome Review of Systems Constitutional: Constitutional: Reports no additional constitutional complaints Respiratory: Respiratory: Reports no additional respiratory complaints [facility] Past Medical History Source: unable to obtain Medical History Wheelchair dependence Recurrent UTI (urinary tract infection) Sacral decubitus ulcer Pulmonary emboli Cardiac arrest History of trigeminal neuralgia COVID-19 vaccine series completed Osteoporosis Neurogenic urinary bladder disorder NENO (obstructive sleep apnea) Parkinson's variant of multiple system atrophy Thyroid disease History of neurogenic bladder History of MRSA infection Hx of lymphoma Arthritis Back pain Hx pulmonary embolism DVT (deep venous thrombosis) Anemia Hiatal hernia Tran catheter in place Bladder stones Multiple sclerosis CVA (cerebral vascular accident) Myocardial infarction HTN (hypertension) Painful bladder spasm Surgical History Hx of hysterectomy Hx of lumpectomy Hx of vitrectomy History of intraocular lens implant Hx of adenoidectomy Hx of tonsillectomy Hx of laminectomy History of cystoscopy History of biopsy of bladder History of bladder surgery H/O colonoscopy Social History Social History Household Members: None Housing: Apartment Are you a primary floor care specialist to a significant other at home: No Do you presently have visiting nurse or other home services: Yes ([employer] 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) Patient Tobacco Use Status: Never used Tobacco Second Hand Smoke Exposure: No Advance Directives: Yes Advance Directives Information Provided: Yes Advance Directives on File: No Advance Directives Date on File: 07/05/20 Do you have a plan to hurt others: No Plan service: No Current occupational status: disabled Physical Exam Vital Signs: Vital Signs: Last Vital Signs Temp 99.5 F 03/18/24 14:19 Pulse 107 H 03/18/24 14:19 Resp 23 H 03/18/24 14:19 BP 102/41 L 03/18/24 14:19 Pulse Ox 94 03/18/24 14:19 O2 Del Method Nasal Cannula 03/18/24 14:19 O2 Flow Rate 2 03/18/24 14:19 BMI result Body Mass Index 31.3 Const: General: cooperative Nutritional Appearance: well nourished HEENT: Head: Yes normal to inspection General nose exam: Normal external nose present Neck: Neck: Yes normal visual inspection and Yes full ROM Chest: Chest palpation & inspection: normal inspection of the chest Resp: Effort & Inspection: normal respiratory effort Auscultation: clear to auscultation bilaterally Cardio: Jugular venous distension: no JVD Rate: regular rate Rhythm: regular rhythm GI: Inspection: Yes normal to inspection Palpation (GI): Soft to palpation, not firm, nontender and no guarding Percussion: Yes normal to percussion Skin: General skin exam: no rashes or lesions noted and turgor normal Lesions: no lesions Course Reevaluation(s) Reevaluation #1: spoke with Urologist Dr Bass Time: 13:15 Reevaluation #2: On re-examined doing much better temperature is down from 104.2, heart rate down from 121, skin warm and dry, good capillary refill, good mentation Time: 16:01 Medications Administered Discontinued Medications Generic Name Dose Route Start Last Admin Trade Name Freq PRN Reason Stop Dose Admin Acetaminophen 975 mg 03/18/24 12:17 03/18/24 12:58 Acetaminophen 325 Mg Tablet PO 03/18/24 12:18 975 mg ONCE ONE Administration Sodium Chloride 1,000 mls @ 999 mls/hr 03/18/24 12:30 03/18/24 13:06 Ns IVCONT 03/18/24 13:30 0 mls/hr .Q1H1M JUWAN Infusion Cefepime HCl 2 gm/ Sodium 50 mls @ 100 mls/hr 03/18/24 12:17 03/18/24 14:16 Chloride IV 03/18/24 12:46 Infused ONCE ONE Infusion Sodium Chloride 2,637 mls @ 2,637 mls/hr 03/18/24 12:48 03/18/24 15:57 Ns 30 ml/kg infuse over 1 hr (2637 ml) 03/18/24 13:47 Infused IV Infusion .Q1H STA Vancomycin HCl 1,500 mg/ 500 mls @ 333.333 mls/hr 03/18/24 12:49 03/18/24 15:57 Sodium Chloride IV 03/18/24 14:18 Infused ONCE ONE Infusion Medical Decision Making Medical Decision Making [facility] Narrative: Patient presented with fever status post a urologic procedure yesterday, suspect UTI we will check labs UA administer antibiotic Differential Diagnosis Differential Diagnoses: The differential diagnosis associated with the presentation includes Urinary tract infection/viral illness/bacteremia Lab Data 03/18/24 12:29 03/18/24 13:03 Labs: Lab Results 03/18/24 03/18/24 03/18/24 Range/Units 01:30 12:29 13:03 WBC 27.4 H (4.8-10.8) X10*3/uL RBC 3.99 L (4.20-5.50) X10*6/uL Hgb 11.7 L (12.0-16.0) g/dl Hct 36.3 L (37.0-47.0) % MCV 91.0 (80.0-98.0) fL MCH 29.3 (27.0-33.0) pg MCHC 32.2 (31.0-35.0) g/dl RDW 14.8 (11.0-16.0) % Plt Count 296 (160-400) X10*3/uL MPV 9.3 L (9.4-12.3) fL Immature Gran % (Auto) 0.8 H (0.0-0.4) % Neut % (Auto) 91.0 H (45-73) % Lymph % (Auto) 4.5 L (20-40) % [place] % (Auto) 3.5 (2-11) % Eos % (Auto) 0.0 (0-4) % Baso % (Auto) 0.2 (0-2) % Lymph # (Auto) 1.2 (1.2-4.9) X10*3/uL [place] # (Auto) 1.0 (0.1-1.2) X10*3/uL Eos # (Auto) 0.0 (0.0-0.4) X10*3/uL Baso # (Auto) 0.1 (0.0-0.2) X10*3/uL Abs Immat Gran (auto) 0.22 H (0.00-0.03) X10*3/uL Absolute Neuts (auto) 25.0 H (2.0-8.3) x10*3/uL Absolute Nucleated RBC 0.000 (0.0-0.012) X10*3/uL Nucleated RBC % (auto) 0.0 (0.0-0.2) /100WBC Smear Tech's Comments VERIFIED Hold Purple Top SEE NOTE Hold Blue Top SEE NOTE Sodium 133 L (135-145) mmol/L Potassium 4.2 (3.3-5.1) mmol/L Chloride 97 (96-108) mmol/L Carbon Dioxide 25 (22-29) mmol/L Anion Gap 15 (12-20) BUN 12 (9-16) mg/dL Creatinine 0.95 (0.5-1.4) mg/dL Estim Creat Clear Calc 61.5 Estimated GFR 58 Random Glucose 177 H (60-115) mg/dL Lactic Acid 3.0 H* (0.5-2.0) mmol/L Lactic Acid F/U @ 2Hr (0.5-2.0) mmol/L Calcium 9.9 (8.4-10.2) mg/dL Total Bilirubin 0.5 (0.0-1.0) mg/dL AST 12 (5-31) U/L ALT 12 (0-31) U/L Alkaline Phosphatase 110 (39-117) U/L Total Protein 9.5 H (6.5-8.0) g/dL Albumin 3.9 (3.5-5.0) g/dL Urine Color Urine Appearance Urine pH (5.0-9.0) Ur Specific [place] (1.005-1.025) Urine Protein (Neg-Trace) mg/dL Urine Glucose (UA) (Negative) mg/dL Urine Ketones (Negative) mg/dL Urine Blood (Negative) Urine Nitrite (Negative) Ur Leukocyte Esterase (Negative) Urine RBC (0-2) /HPF Urine WBC (0-5) /HPF Ur Squamous Epith Cells (0-2) /HPF Urine Bacteria (None Seen) Hyaline Casts (0-2) /LPF 03/18/24 03/18/24 Range/Units 14:23 15:12 WBC (4.8-10.8) X10*3/uL RBC (4.20-5.50) X10*6/uL Hgb (12.0-16.0) g/dl Hct (37.0-47.0) % MCV (80.0-98.0) fL MCH (27.0-33.0) pg MCHC (31.0-35.0) g/dl RDW (11.0-16.0) % Plt Count (160-400) X10*3/uL MPV (9.4-12.3) fL Immature Gran % (Auto) (0.0-0.4) % Neut % (Auto) (45-73) % Lymph % (Auto) (20-40) % [place] % (Auto) (2-11) % Eos % (Auto) (0-4) % Baso % (Auto) (0-2) % Lymph # (Auto) (1.2-4.9) X10*3/uL [place] # (Auto) (0.1-1.2) X10*3/uL Eos # (Auto) (0.0-0.4) X10*3/uL Baso # (Auto) (0.0-0.2) X10*3/uL Abs Immat Gran (auto) (0.00-0.03) X10*3/uL Absolute Neuts (auto) (2.0-8.3) x10*3/uL Absolute Nucleated RBC (0.0-0.012) X10*3/uL Nucleated RBC % (auto) (0.0-0.2) /100WBC Smear Tech's Comments Hold Purple Top Hold Blue Top Sodium (135-145) mmol/L Potassium (3.3-5.1) mmol/L Chloride (96-108) mmol/L Carbon Dioxide (22-29) mmol/L Anion Gap (12-20) BUN (9-16) mg/dL Creatinine (0.5-1.4) mg/dL Estim Creat Clear Calc Estimated GFR Random Glucose (60-115) mg/dL Lactic Acid (0.5-2.0) mmol/L Lactic Acid F/U @ 2Hr 0.7 (0.5-2.0) mmol/L Calcium (8.4-10.2) mg/dL Total Bilirubin (0.0-1.0) mg/dL AST (5-31) U/L ALT (0-31) U/L Alkaline Phosphatase (39-117) U/L Total Protein (6.5-8.0) g/dL Albumin (3.5-5.0) g/dL Urine Color Dark Yellow Urine Appearance Cloudy Urine pH 5.0 (5.0-9.0) Ur Specific [place] 1.020 (1.005-1.025) Urine Protein 100 (2+) H (Neg-Trace) mg/dL Urine Glucose (UA) Negative (Negative) mg/dL Urine Ketones Trace (Negative) mg/dL Urine Blood Large (3+) H (Negative) Urine Nitrite Positive H (Negative) Ur Leukocyte Esterase Moderate (2+) H (Negative) Urine RBC >20 H (0-2) /HPF Urine WBC >50 H (0-5) /HPF Ur Squamous Epith Cells 3-5 (0-2) /HPF Urine Bacteria None Seen (None Seen) Hyaline Casts 3-5 (0-2) /LPF Critical Care Time Critical Care Time Critical Care Time: Yes Total Critical Care Time: 60 Attestation: urosepsis lactic acidosis iv fluids iv antibiotic Discharge Plan Discharge Clinical Impression: Acidosis, lactic Urinary tract infection Qualifiers: Urinary tract infection type: site unspecified Hematuria presence: without hematuria Qualified Code(s): N39.0 - Urinary tract infection, site not specified Patient Disposition: Admitted As Inpatient Print Language: Icelandic
[2024-03-18 12:36] LABS: Basophils Absolute Auto 0.1 X10*3/uL (0.0-0.2); Basophils Percent Auto 0.2 % (0-2); Hematocrit 36.3 % (37.0-47.0); Hemoglobin 11.7 g/dl (12.0-16.0); Imm Gran Abs Auto 0.22 X10*3/uL (0.00-0.03); Imm Gran Pct Auto 0.8 % (0.0-0.4); Lymphocytes Absolute Auto 1.2 X10*3/uL (1.2-4.9); Lymphocytes Percent Auto 4.5 % (20-40); MANUAL DIFF FLAG SCAN; Mean Corpuscular HGB Conc 32.2 g/dl (31.0-35.0); Mean Corpuscular Hemoglobin 29.3 pg (27.0-33.0); Mean Platelet Volume 9.3 fL (9.4-12.3); Monocytes Percent Auto 3.5 % (2-11); Platelet Count 296 X10*3/uL (160-400); Red Blood Count 3.99 X10*6/uL (4.20-5.50); Red Cell Distribution Width 14.8 % (11.0-16.0); SCAN SMEAR FLAG 1; White Blood Count 27.4 X10*3/uL (4.8-10.8)
[2024-03-18] MEDS: 0.9 % Sodium Chloride 1,000 ML 999 ML IVCONT (12:44)
[2024-03-18 12:56] LABS: SLIDE REVIEW VERIFIED
[2024-03-18] MEDS: Acetaminophen 325 MG TABLET 975 MG PO (12:58)
[2024-03-18] MEDS: cefEPime HCl 2 GM in 0.9 % Sodium Chloride 50 ML IV ×2 (13:06→21:55)
--- OUTSIDE RECORDS SUMMARY | 2024-03-18 13:27 | XMS_ITS | Continuity of Care Document ---
Author Organization [facility] Address [address] [place] [address]- Care Team Providers Care Dumb Waiter Operator Name Role Phone Juan Manuel LIM, Kristen Acosta Primary Care Physic juan alberto Encounter [facility] Date(s): 01/09/23 - 02/08/23 [facility] [address] [place] [address]- Allergies, Adverse Reactions, Alerts Substance Reaction Severity Status morphine hives, SOB Active penicillins hive Active Wellbutrin rash Active Reglan Active cannabis (Schedule I substance) itching/vomiting Active Other Environmental Allergy mercury-fillings Active contrast media (iodine-based) itching throughout body Active Immunizations Given and Recorded Vaccine Date Status Refusal Reason pneumococcal 20-valent conjugate vaccine 05/30/22 Recorded [id number] 12y+ bivalent booster vax 05/12/22 Recorded influenza [...] vaccine, inactivated 04/26/09 Arnoldo rded SARS-CoV-2 mRNA (kfdxglt-wurk-zzvwd) vax 03/10/22 Recorded SARS-CoV-2 mRNA (pcraufk-ulbg-zvntc) vax 10/04/21 Recorded SARS-CoV-2 (COVID-19) mRNA BNT-162b2 [...] Maintenance, 12/11/22 17:34:00 EDT, Tablet, [facility]/pharmacy #[id number], Partial fill upon patient request if the prescription is for a schedule II opioid drug., 155, cm, 10/10/22 13:40:00 E... Start Date: 12/11/22 Status: Ordered baclofen 20 mg oral tablet 20 mg, 1, tablet, By Mouth, 3 times a day, # 270 tablet, Refills 2, Tot. Refills 2, Maintenance, 12/09/22 12:44:00 EDT, Route to Pharmacy Electronically, [facility], Partial fill upon patient request if the prescription is for a... Start Date: 12/09/22 Stop Date: 09/05/23 Status: Ordered bifidobacterium-lactobacillus oral tablet 2 tablet, By Mouth, 2 times a day, [facility] Brand please (Senior Wellness), # 360 tablet, [...] Maintenance, 01/06/23 14:02:00EDT, Tablet, [facility]/pharmacy #[id number], Partial [...] Start Date: 11/01/21 Status: Ordered [facility] Senior Probiotic Capsule [facility] Senior Probiotic Capsule, See Instructions, # 180 [...] 5 Refills, 03/02/22 8:08:00 EDT, [facility]/pharmacy #[id number], 155, cm, 02/23/22 8:04:00 EDT, Height, [...] Stop, 05/26/22 8:59:00 EDT, Tablet, [facility]/pharmacy #[id number], Partial [...] 01/17/23 19:36:00 EDT, Route to Pharmacy Electronically, [facility], 155, cm, 10/10/22 13:40:00 [...] Tot. Refills 2, Maintenance, 20-30mmghg FF Petite (short),Nacjs-vww-udqg, soft knee, black silicone Stock code [id number] Part #77922, Size III. [facility] [id number], 12/07/21 11:32:00 EDT,... Start Date: 12/07/21 Status: [...] 01/22/23 21:39:00 EDT, Route to Pharmacy Electronically, [facility], 155, cm, 10/10/22 13:40:00 EST, Height, 93.4,kg, 11/01/21 16:52:00 EDT, Dry Weight Start Date: 01/22/23 Status: Ordered Mapap 500 mg oral capsule See Instructions, TAKE 2 CAPSULES BY MOUTH 4 TIMES A DAY NEEDED FOR PAIN, # 480 capsule, 3 Refills, Maintenance, 06/04/22 16:03:00 EDT, [facility] STORE [id number], 155, cm, 05/25/22 13:44:00 EDT, Height, 93.4, kg, 11/01/21 16:52:00 EDT, Dry Weight Start Date: 06/04/22 Status: Ordered Power [place] Lift with [place] split-leg sling Power [place] Lift with [place] split-leg sling, See Instructions, # 1 each, [...] 90 capsule, 1 Refills, 12/11/22 15:16:00 EDT, [facility]/pharmacy #[id number], 155, cm, 10/10/22 13:40:00 EST, Height, [...] Role: Primary Care Nurse Address: Address: [address] [place] [address] [address] [place] [address]- [place] Name: Emma Mendoza RN Position: [facility] AMB Nurse Member Role: Primary Care Nurse Name: Juan Manuel LIM, Kristen Acosta Position: [facility] Physician - Primary Care Member Role: PCP Address: Address: [address] [place] [id number]- Name: Komal Goodrich Position: [facility] Outreach Member Role: Lifetime Consulting Physician Name: Godfrey Cano Position: [facility] RN Member Role: Primary Care Nurse Name: Anette Miranda RN Position: [facility] Onco RN Member Role: Primary Care Nurse Care Team Related Persons Name: ALANA DIOMEDES Address: home [address] [place] [address] Name: MOO HOWELL Address: home [address] [place] [address] Name: MARLON GENTILE
--- OUTSIDE RECORDS SUMMARY | 2024-03-18 13:28 | XMS_ITS | Continuity of Care Document ---
Author Organization [facility] Address [address] [place] [address]- Care Team Providers Care Check Viewer Name Role Phone Juan Manuel LIM, Kristen Acosta Primary Care Physic juan alberto [place] [facility] [place] - 10/03/22 [facility] [address] [place] [address]- Attending Physician: Veronica LIM, Licha Sawyer Referring Physician: Kary Johnson MD Allergies, Adverse Reactions, Alerts Substance Reaction Severity Status morphine hives, SOB Active penicillins hive Active Wellbutrin rash Active Reglan Active cannabis (Schedule I substance) itching/vomiting Active Other Environmental Allergy mercury-fillings Active contrast media (iodine-based) itching throughout body Active Immunizations Given and Recorded Vaccine Date Status Refusal Reason pneumococcal 20-valent conjugate vaccine 05/30/22 Recorded [id number] 12y+ bivalent booster vax 05/12/22 Recorded influenza [...] vaccine, inactivated 04/26/09 Arnoldo rded SARS-CoV-2 mRNA (gzgocdn-nhef-piglo) vax 03/10/22 Recorded SARS-CoV-2 mRNA (gqrlbyp-ttmi-flxsz) vax 10/04/21 Recorded SARS-CoV-2 (COVID-19) mRNA BNT-162b2 [...] tablet, 0 Refills, Maintenance, 09/13/22 9:11:00EST, Tablet, [facility]/pharmacy #[id number], Partial fill upon patient request if the prescription is for a schedule II opioid drug., 155, cm, 07/12/22 14:10:00 ES... Start Date: 09/13/22 Status: Ordered baclofen 20 mg oral tablet 20 mg, 1, tablet, By Mouth, 3 times a day, # 270 tablet, Refills 2, Tot. Refills 2, Maintenance, 12/09/22 12:44:00 EDT, Route to Pharmacy Electronically, [facility] [...] Refills, Maintenance, 01/06/23 14:02:00EDT, [id number] Partial fill upon patient request if the prescription is for a schedule II opioid drug., 155, cm, 02/23/22 8:04:00 EDT... Start Date: 01/06/23 Stop Date: 10/03/23 Status: Ordered calcium carbonate 600 mg oral tablet 1 tablet = 600 mg, By Mouth, 2 times a day, for 90 days, # 180 tablet, 3 Refills, Hard Stop 01/06/23 14:02:00 EDT, 01/11/22 14:02:00 EDT, [facility] Partial fill upon patient request [...] 01/11/22 13:45:00 EDT, Route to Pharmacy Electronically, [facility] ADIS... Start Date: 01/11/22 Status: Ordered [...] Tot. Refills 2, Maintenance, 20-30mmghg FF Petite (short),Leugg-xre-kmon, soft knee, black silicone Stock code [id number] Part #[id number], Size III. [facility] [id number], 12/07/21 11:32:00 EDT,... Start Date: 12/07/21 Status: [...] Replace Required Details, Route to Pharmacy Electronically, [facility], 155, cm, 07/12/22 14:10:00 EST, Height, 93.4, k... Start Date: 09/24/22 Status: Ordered Mapap 500 mg oral capsule See Instructions, TAKE 2 CAPSULES BY MOUTH 4 TIMES A DAY NEEDED FOR PAIN, # 480 capsule, 3 Refills, Maintenance, 06/04/22 16:03:00 EDT, [facility] STORE [id number], 155, cm, 05/25/22 13:44:00 EDT, Height, 93.4, kg, 11/01/21 16:52:00 EDT, Dry Weight Start Date: 06/04/22 Status: Ordered Power [place] Lift with [place] split-leg sling Power [place] Lift with [place] split-leg sling, See Instructions, # 1 each, Refills 0, Tot. Refills 0, Maintenance, Dx: Multiple Sclerosis induced Paraplegia Length of time needed: indefinite Purpose: Transfer to/[facility] bed to wheelchair, commode,... Start Date: 08/16/21 Status: Ordered Provigil 200 mg oral tablet 1 tablet = 200 mg, By Mouth, 2 times a day, for 28 days, takes in am and lunchtime brand name only - dispense as written, # 56 tablet, 3 Refills, Hard Stop 11/01/22 17:46:00 EDT, 07/12/22 17:46:00 EST, Tablet, [facility]/pharmacy #[id number], Partial fill upon pa... Start Date: 07/12/22 Stop Date: 11/01/22 Status: Ordered Provigil 200 mg oral tablet 1 tablet = 200 mg, By Mouth, 2 times a day, takes in am and lunchtime brand name only - dispense aswritten, # 56 tablet, 0 Refills, Maintenance, 09/07/22 14:36:00 EST, Tablet, [facility]/pharmacy #[id number], [...] 18:25:00 EST, Tablet, [facility], Parti... Start Date: 07/05/22 Stop Date: [...] tablet, 3 Refills, Maintenance, 02/01/22 12:42:00EDT, Tablet, [facility], Partial fill [...] oldest [Reference Range]: 1 Height 155 cm (09/26/22 2:02 PM) Blood Pressure [90-138/55-84 mm Hg] 132/ 78mm Hg (09/26/22 2:02 PM) Blood pressure sites Arm, left (09/26/22 2:02 PM) Social History Social History Type Response Smoking Status Never (less than 100 in lifetime) entered on: 10/31/21 Sex Patient Care team information Care Team Personnel Name: Juliann Rich RN Position: S RN Member Role: Primary Care Nurse Name: Alejandro APPAREL MACHINERY INSTRUCTOR, Elsa Peterson Position: Reference Physician Member Role: Primary Care Nurse Address: Address: [address] [place] [address] [address] [place] [address]- Name: Reji MILLER, Emma Position: [facility] RN Member Role: Primary Care Nurse Name: Juan Manuel LIM, Kristen Acosta Position: [facility] Primary Care Physician Member Role: PCP Address: Address: [address] [place] [id number]- Name: Jade Medina Position: S RN Member Role: Primary Care Nurse Name: Komal Goodrich Position: S Outreach Member Role: Lifetime Consulting Physician Name: Godfrey Cano Position: S RN Member Role: Primary Care Nurse Name: Anette Miranda RN Position: [facility] Onco RN Member Role: Primary Care Nurse Care Team Related Persons Name: DIOMEDES WARNER Address: [address] [place] [address] Name: MOO HOWELL Address: [address] [place] [address] Name: MARLON GENTILE
--- OUTSIDE RECORDS SUMMARY | 2024-03-18 13:35 | XMS_ITS | Continuity of Care Document ---
Author Organization [facility] Address [address] [place] [address]- Care Team Providers Care Office Associate Name Role Phone Juan Manuel LIM, Kristen Acosta Primary Care Physic juan alberto Encounter [facility] Date(s): 12/01/21 - 12/31/21 [facility] [address] [place], [place] [address] Allergies, Adverse Reactions, Alerts Substance Reaction Severity [...] [facility] Brand please ([facility] Well[facility]), # 360 tablet, 3 Refills, [...] 01/09/22 14:17:00 EDT, 07/13/21 14:17:00 EST, Tablet, [facility], Partial fill upon patient request if the prescription is for a schedul... Start Date: 07/13/21 Stop Date: 01/09/22 Status: Ordered Centrum Silver Ultra Women's oral tablet 1 tablet, By Mouth, Daily, 0 Refills, Maintenance, 07/09/18 8:43:55 EST Start Date: 07/09/18 Status: Ordered [facility] SENIOR PROBIOTIC CAPSULE TAKE 2 [...] STILL NEEDED, # 450 mL, 0 Refills, [facility] STORE [id number], 153, cm, 08/30/21 16:43:00 EST, Height Start [...] Tot. Refills 2, Maintenance, 20-30mmghg FF Petite (short),Gxcvw-opm-kymu, soft knee, black silicone Stock code [id number] Part #[id number], Size III. SK [id number], 12/07/21 11:32:00 EDT,... Start Date: 12/07/21 Status: [...] 07/13/21 14:08:00 EST, Route to Pharmacy Electronically, [facility], Partial fill upon patient request if the prescription is for a schedule... Start Date: 07/13/21 Status: Ordered Power [place] Lift with [place] split-leg sling Power [place] Lift with [place] split-leg sling, See Instructions, # 1 each, [...] 1:28:00 EDT, Tablet, [facility]/pharmacy #[id number], [...]
--- OUTSIDE RECORDS SUMMARY | 2024-03-18 13:37 | XMS_ITS | Continuity of Care Document ---
Author Organization [facility] Address [address] [place] [address]- Care Team Providers Care Ceo And Founder Name Role Phone Juan Manuel LIM, Kristen Acosta Primary Care Physic juan alberto Encounter [facility] Date(s): 03/10/24 - 03/17/24 [facility] [address] [place] [address]- Encounter Diagnosis Hyperglycemia(Discharge Diagnosis) - 03/10/24 Hypomagnesemia(Discharge Diagnosis) - 03/10/24 Pyelonephritis, acute(Discharge Diagnosis) - 03/10/24 History of septic shock(Discharge Diagnosis) - 03/10/24 Hypertension(Discharge Diagnosis) - 03/10/24 Attending Physician: Juan Manuel LIM, Kristen Acosta Allergies, Adverse Reactions, Alerts Substance Reaction Severity Status morphine hives, SOB Active penicillins hive Active Wellbutrin rash Active Reglan Active cannabis (Schedule I substance) itching/vomiting Active Other Environmental Allergy mercury-fillings Active contrast media (iodine-based) itching throughout body Active Immunizations Given and Recorded Vaccine Date Status Refusal Reason SARS-CoV-2(COVID-19)mRNA-LNP vac([id number]) 10/19/23 Recorded SARS-CoV-2(COVID-19)mRNA-LNP vac([id number]) 07/03/23 Recorded RSV vaccine preF3, recombinant 05/19/23 [...] influenza virus vaccine, inactivated 04/26/09 Arnoldo rded [id number] 12y+ bivalent booster vax 01/23/23 Recorded [id number] 12y+ bivalent booster vax 05/12/22 Recorded pneumococcal 20-valent conjugate vaccine 05/30/22 Recorded SARS-CoV-2 mRNA ([id number]) vax 03/10/22 Recorded SARS-CoV-2 mRNA ([id number]-ypyi-vhiqp) vax 10/04/21 Recorded SARS-CoV-2 (COVID-19) mRNA BNT-162b2 [...] 1 Refills, Maintenance, 08/01/23 13:53:00 EST, Tablet, [facility]/pharmacy #[id number], Partial fill upon patient request if the prescription is for a schedule II opioid drug., 155, cm, 05/28/23 11:02:00 E... Start Date: 08/01/23 Status: Ordered baclofen 20 mg oral tablet 20 mg, 1, tablet, By Mouth, 3 times a day, # 270 tablet, Refills 3, Tot. Refills 3, Maintenance, 03/07/24 13:37:00 EDT, Route to Pharmacy Electronically, [facility], Partial fill upon patient request if the prescription is for a... Start Date: 03/07/24 Stop Date: 03/02/25 Status: Ordered bifidobacterium-lactobacillus oral tablet 2 tablet, [...] 02/28/24 11:11:00 EDT, Route to Pharmacy Electronically, [facility], 155, cm, 02/18/24 11:04:00EDT, Height Start Date: 02/28/24 Status: Ordered gabapentin 300 mg oral capsule 300 mg, 1, capsule, By Mouth, 3 times a day, # 270 capsule, Refills 3, Tot. Refills 3, Maintenance,03/07/24 13:36:00 EDT, Route to Pharmacy Electronically, [facility], Partialfill upon patient request if the prescription is fo... Start Date: 03/07/24 Stop Date: 03/02/25 Status: Ordered Juzo Compression Hose Juzo Compression Hose, See Instructions, # 2 each, Refills 2, Tot. Refills 2, Maintenance, Juzo Compression Hose 2 pairs [id number] Soft Knee FF Petite 20-30 mmHg Silicone, Black Stock Code [id number] I I I Part #[id number] Size I I I SKU... Start Date: 03/12/23 Status: Ordered levothyroxine 0.088 mg oral tablet 1 tablet = 88 mcg, By Mouth, Daily, # 90 tablet, 1 Refills, Maintenance, 10/01/23 17:11:00 EST, Tablet, [facility]/pharmacy #[id number], Partial fill upon patient request if the prescription is for a schedule II opioid drug., 155, cm, 05/28/23 11:02:00 EDT, Height... Start Date: 10/01/23 Status: Ordered lisinopril 5 mg oral tablet 1, tablet, By Mouth, Daily, # 90 tablet, Refills 1, Tot. Refills 1, Maintenance, 10/01/23 17:15:00 EST, Route to Pharmacy Electronically, [facility]/pharmacy #[id number], 155, cm, 05/28/23 11:02:00 EDT, Height, 93.4, kg, 11/01/21 16:52:00 EDT, Dry Weight Start Date: 10/01/23 Status: Ordered Mapap 500 mg oral capsule See Instructions, TAKE 2 CAPSULES BY MOUTH 4 TIMES A DAY NEEDED FOR PAIN, # 480 capsule, 0 Refills, Maintenance, 11/12/23 15:45:00 EDT, [facility]/pharmacy #[id number], 155, cm, 05/28/23 11:02:00 EDT, Height Start Date: 11/12/23 Status: Ordered Power Virginia Lift with Sylvester split-leg sling Power Virginia Lift with Sylvester split-leg sling, See Instructions, # 1 each, Refills 0, Tot. Refills 0, Maintenance, Dx: Multiple Sclerosis induced Paraplegia Length of time needed: indefinite Purpose: Transfer to/fr hosp bed to wheelchair, commode,... Start Date: 08/16/21 Status: Ordered Repair for hospital bed Repair [...] EDT, Supply Start Date: 01/27/22 Status: Ordered Silvadene 1% cream 1 application, Topically, 2 times a day, # 85 Gm, 3 Refills, Acute 04/14/24 15:39:00 EDT, 03/14/24 15:39:00 EDT, Cream, [facility]/pharmacy #[id number], Partial fill upon patient request if the prescription is for a schedule II opioid drug., 1 application Topicall... Start Date: 03/14/24 Stop Date: 04/14/24 Status: Ordered Turmeric = 750 mg, By Mouth, 2 times a day, 0 Refills, Maintenance, 07/09/18 8:47:35 EST Start Date: 07/09/18 Status: Ordered Vitamin D3 2000 intl units oral capsule 1 capsule, By Mouth, Daily, # 90 capsule, 1 Refills, 12/11/22 15:16:00 [id number], cm, 10/10/22 13:40:00 EST, Height, 93.4, kg, 11/01/21 16:52:00 EDT, Dry Weight Start Date: 12/11/22 Status: Ordered Xarelto 10 mg oral tablet 1 tablet = 10 mg, By Mouth, Daily, # 90 tablet, 3 Refills, Maintenance, 02/26/24 11:39:00 EDT, Tablet, [facility], Partial fill upon patient request if the prescription is for a schedule II opioid drug., 155, cm, 02/18/24 11:04:... Start Date: 02/26/24 Stop Date: 02/20/25 Status: Ordered Xarelto 20 mg oral tablet See Instructions, TAKE 1 TABLET DAILY AT SUPPER, # 90 tablet, 3 Refills, Maintenance, 01/17/23 9:37:00 EDT, [facility], 155, cm, 10/10/22 [...] Bladder spasm Confirmed Active Spasticity Confirmed Active Diagnosis Diagnosis Type Effective Dates Health Status Clinical Service Informant Hyperglycemia Discharge Diagnosis 03/10/24 Hypomagnesemia Discharge Diagnosis 03/10/24 Pyelonephritis, acute Discharge Diagnosis 03/10/24 History of septic shock Discharge Diagnosis 03/10/24 Hypertension Discharge Diagnosis 03/10/24 Vital Signs Most recent to oldest [Reference Range]: 1 Height 155 cm (03/10/24 10:57 AM) Social History Social History Type Response Smoking Status Never (less than 100 in lifetime) entered on: 10/31/21 Sex Note * Sheridan Burnham: PERFORM Event Display: Patient Education/Instruction Authored Date: [id number] Ambulatory Adult Visit Summary [address] [address] Name: CHANEL KATZ : 1955?? Visit: 03/10/2024 10:52?? Ambulatory Visit Instructions ?? Your Care Team Primary Care Provider Kristen Zambrano MD? This Visit Provider Kristen Jean Baptiste MD Your Diagnosis Hyperglycemia Hypomagnesemia Pyelonephritis, acute History of septic shock Hypertension Vitals Signs Height: 155 cm What to do next Future Orders Comprehensive Metabolic Panel - Once, *Est. 06/17/23, Future Order?? TSH - Once, *Est. 06/17/23, Future Order?? Hemoglobin A1C (Monitoring) - Routine, Once, 03/10/24 11:58:00 EDT, Order for Today, [facility], Blood?? Magnesium Level - Routine, Once, 03/10/24 11:58:00 EDT, Order for Today, [facility], Blood?? CBC w/ Differential - Routine, Once, 03/10/24 12:06:00 EDT, Order for Today, [facility], Blood?? Medications The list below reflects the information in our records and provided by you today along with any changes made during this visit. Please continue your medications until treatment is completed or stopped by your provider. If this is different from the information you have or there are other questions,please contact the prescribing provider. What How Much When Why Instructions Unchanged Acetaminophen (Mapap 500 mg oral capsule) See instructions TAKE 2 CAPSULES BY MOUTH 4 TIMES A DAY NEEDED FOR PAIN ?? Unchanged Ascorbic Acid (ascorbic acid 1000 mg oral tablet) 1 tab(s) Oral Twice a day Unchanged Baclofen (baclofen 20 mg oral tablet) 1 tab(s) Oral 3 times a day Duration: 90 Days Unchanged bifidobacterium-lactobacillus (bifidobacterium-lactobacillus oral tablet) 2 tab(s) Oral Twice a day Duration: 90 Days [facility] ([facility]) ?? Unchanged Calcium Carbonate (calcium carbonate 600 mg oral tablet) 1 tab(s) Oral Twice a day Duration: 90 Days Unchanged Cholecalciferol (Vitamin D3 2000 intl units oral capsule) 1 capsule Oral Daily Unchanged Docusate (Enemeez Mini 283 mg rectal enema) See instructions Multiple sclerosis Constipation USE RECTALLY EVERY DAY NEEDED FOR CONSTIPATION ?? Unchanged Durable Medical Equipment ([facility] SENIOR PROBIOTIC CAPSULE) TAKE 2 CAPSULES BY MOUTH TWICE A DAY ?? Unchanged Durable Medical Equipment (Fully powered virginia lift with split leg sling type) See instructions dx: Multiple sclerosis; Paraplegia, Neurogenic bladder; Morbid obesity ?? Unchanged Durable Medical Equipment (Juzo Compression Hose) See instructions Juzo Compression Hose 2 pairs gfhbm-[id number]-cipr Soft Knee FF Petite 20-30 mmHg Silicone, Black Stock Code [id number] I I I Part #[id number] Size ??I I I SKU # [id number] ?? Unchanged Durable Medical Equipment (Power Virginia Lift with Sylvester split-leg sling) See instructions MS (multiple sclerosis) Paraplegia Dx: Multiple Sclerosis induced Paraplegia Length of time needed: indefinite Purpose: Transfer to/ fr hosp bed to wheelchair, commode, shower chair ?? Unchanged Durable Medical Equipment (Repair for hospital bed) See instructions Dx. Multiple sclerosis G35.9 ?? 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 Unchanged Durable Medical Equipment (Z-flex boot LLE Dx: left foot drop, MS, immobility) See instructions wear as directed ?? Unchanged Estradiol Topical (estradiol 0.1 mg/ g vaginal cream) Unchanged fosfomycin (fosfomycin 3 g oral granule for reconstitution) 1 Each Oral Once Unchanged Furosemide (furosemide 40 mg oral tablet) 1 tab(s) Oral Daily Unchanged Gabapentin (gabapentin 300 mg oral capsule) 1 capsule Oral 3 times a day Duration: 90 Days Unchanged Levothyroxine (levothyroxine 0.088 mg oral tablet) 1 tab(s) Oral Daily Unchanged Lisinopril (lisinopril 5 mg oral tablet) 1 tab(s) Oral Daily Unchanged Modafinil (Provigil 200 mg oral tablet) 1 tab(s) Oral Twice a day Duration: 28 Days takes in am and lunchtime brand name only - dispense as written Brand name only ?? Unchanged Multivitamin With Minerals (Centrum Silver Ultra Women's oral tablet) 1 tab(s) Oral Daily Unchanged rivaroxaban (Xarelto 10 mg oral tablet) 1 tab(s) Oral Daily Duration: 90 Days Unchanged rivaroxaban (Xarelto 20 mg oral tablet) See instructions TAKE 1 TABLET DAILY AT ? SUPPER ?? Unchanged turmeric (Turmeric) 750 Milligram Oral Twice a day Test Performed Below is a partial list of the tests performed during your Visit. You may have had other tests and procedures not included in this list. Please discuss all test results with your provider. CBC w/ Differential?-- Results Pending -- Hemoglobin A1C (Monitoring)?-- Results Pending -- Magnesium Level?-- Results Pending -- Medications and Immunizations Administered Medications Given During Visit No medications given during this visit.?? Allergies (NKA means No Known Allergies) Other Environmental Allergy??(mercury-fillings) Reglan Wellbutrin??(rash) cannabis (Schedule I substance)??(itching/vomiting) contrast media (iodine-based)??(itching throughout body) morphine??(hives, SOB) penicillins??(hive) Common Emergency Awareness Tips IS IT A STROKE? Act FAST and Check for these signs: FACE Does the face look uneven? ARM Does one arm drift down? SPEECH Does their speech sound strange? TIME Call at any sign of stroke ?? Heart Attack Signs Chest discomfort: Most heart attacks involve discomfort in the center of the chest and lasts more than a few minutes, or goes away and comes back. It can feel like uncomfortable pressure, squeezing, fullness or pain. Discomfort in upper body: Symptoms can include pain or discomfort in one or both arms, back, neck, jaw or stomach. Shortness of breath: With or without discomfort. Other signs: Breaking out in a cold sweat, nausea, or lightheaded. Remember, MINUTES DO MATTER. If you experience any of these heart attack warning signs, call to get immediate medical attention! ?? Smoking can increase your chances of developing chronic health problems and can cause harmful effects to other family members in your house. If you smoke, you are strongly encouraged to quit. Please call [employer] at [phone] or [phone] (0761) or log in to [email or web address] for referrals to smoking cessation programs. ?? The National Suicide Prevention Hotline is available 05/03 if you or someone you know needs to find a reason to keep living. By calling 0-407-266-[employer] (7978) you'll be connected to a skilled, trained counselor at a crisis center in your area. [facility] Portal You can view and manage your care through the patient portal or by using a health care uday of your choosing. [employer] is a website that allows you to securely view your medical information including your hospital discharge summary, office visit summaries, medications and follow-up visits. You can also request appointments, renew medications, and request access to your medical information using a health care uday of your choosing, or just ask a question. You can enroll at [email or web address] or register during your next office visit. [facility], in keeping with [facility] guidance, no longer requires face masks for staff, patientsor visitors in most situations. Similiar to time spent indoors at other locations, there is the chance that you were exposed to repiratory viruses during your time with us (such as flu or COVID-19). If you develop symptoms concerning for a viral respiratory infection, please seek testing (and treatment if indicated) from your medical provider or home test kit. ?? Disclaimer: The information provided is of a general nature and is intended to be used in conjunction with the recommendations and advice of your health care practitioner. Every effort has been made to ensure that the information provided is accurate and complete at the time it is provided to you however, as your needs change, or, as new information becomes available, different or additional instructions may be required. ?? If you have questions, please consult with your primary care provider or pharmacist, as appropriate. This information is not intended to serve as substitution for assessment and evaluation by a qualified health care provider. If you do not have a primary care provider, you may find a [facility] provider by calling [facility] at [phone]. Patient Care team information Care Team Personnel Name: Juliann Rich RN Position: [facility] RN Member Role: Primary Care Nurse Name: Alejandro CENTENO, Elsa Peterson Position: [facility] Outreach Member Role: Primary Care Nurse Address: Address: [address] [place] [id number]- Name: Emma Mendoza RN Position: [facility] AMB Nurse Member Role: Primary Care Nurse Name: Juan Manuel LIM, Kristen Acosta Position: [facility] Physician - Primary Care Member Role: PCP Address: Address: [address] [place] [id number]- Name: Anette Soler RN Position: [facility] Onco RN Member Role: Primary Care Nurse Name: Komal Goodrich Position: [facility] Outreach Member Role: [employer] Consulting Physician Name: Godfrey Cano Position: [facility] RN Member Role: Primary Care Nurse Care Team Related Persons Name: DIOMEDES WARNER Address: home [address] [place] [address] Name: MOO HOWELL Address: [address] [place] [address] Name: MARLON GENTILE
[2024-03-18 13:43] LABS: Anion Gap 15 (12-20)
[2024-03-18 13:48] LABS: Alanine Aminotransferase 12 U/L (0-31); Albumin Level 3.9 g/dL (3.5-5.0); Alkaline Phosphatase 110 U/L (39-117); Aspartate Amino Transferase 12 U/L (5-31); Bilirubin Total 0.5 mg/dL (0.0-1.0); Blood Urea Nitrogen 12 mg/dL (9-16); Calcium 9.9 mg/dL (8.4-10.2); Carbon Dioxide 25 mmol/L (22-29); Chloride 97 mmol/L (96-108); Creatinine Clr Calc Pharmacy 61.5; Estimated Glomerular Filt Rate 58; Glucose Random 177 mg/dL (60-115); Potassium 4.2 mmol/L (3.3-5.1); Sodium 133 mmol/L (135-145); Total Protein 9.5 g/dL (6.5-8.0)
[2024-03-18] MEDS: vancomycin HCL 1,500 MG in 0.9 % Sodium Chloride 500 ML 333.33 MG IV (14:14)
[2024-03-18 14:33] LABS: Reflex Lactate? Lactic Acid Added
[2024-03-18 14:34] LABS: Appearance Urine Cloudy; Color Urine Dark Yellow; Glucose Urine UA Negative (Negative); Leukocyte Esterase Urine Moderate (2+) (Negative); Nitrite Urine Positive (Negative); UMIC TRIGGER UACC YES; Urine Blood Large (3+) (Negative); Urine Ketones Trace mg/dL (Negative); Urine Protein 100 (2+) mg/dL (Neg-Trace)
[2024-03-18 14:53] LABS: Bacteria Urine None Seen (None Seen); RBC Urine >20 /HPF (0-2); UACC Culture Trigger YES; WBC Urine >50 /HPF (0-5)
[2024-03-18 15:27] LABS: ~Lactic Acid-LAB USE ONLY 0.7 mmol/L (0.5-2.0)
--- NOTE | 2024-03-18 15:59 | PC.NURSE ---
Rene NEGRON requesting updates [phone]
--- NOTE | 2024-03-18 15:59 | PC.NURSE ---
Sepsis fluids done at 1557, pt a/ox4, able to speak in full sentences, able to have conversation with this RN and Techs. Upon arrival pt was altered and confused, mumbling. Resting in bed quietly, call perez within reach, all needs met at this time.
--- NOTE | 2024-03-18 16:45 | PHA.MEDREC ---
Addendum entered by Rut Kearney RPh 03/18/24 18:54: Reviewed by [facility]. Patient is no longer on estradiol cream. She is on Bactrim indefinitely. Original Note: Pharmacy Consult ? Medication Reconciliation Pharmacy has completed the medication reconciliation. Spoke to patient to confirm med list. Patient was very sleepy and talking really slow. Patient states she is only one one antibiotic. Sulfamethoxazole 800 mg- Trimethoprim 160 mg 1 tablet bid.Patient says she hasn't started the silver sulfadiazine cream because her pharmacy is out of stock, Provigil 200 mg bid needs to be brand name. Informed patient our pharmacy does not carry brand name , if she want brand name she would have to bring from home. Patient then said If you have to give me generic then you can, however it does not work.
--- NOTE | 2024-03-18 17:00 | PC.NURSE ---
Pt temp increased to 102.1. MD baca made aware.
[2024-03-18] MEDS: Ibuprofen 600 MG TABLET PO (17:44)
[2024-03-18] MEDS: Acetaminophen 325 MG TABLET 650 MG PO (17:45)
[2024-03-18] MEDS: ondansetron HCL 4 MG/2 ML VIAL IVPUSH (17:55)
--- NOTE | 2024-03-18 17:55 | PC.NURSE ---
Pt tachycardic on radiation monitor HR 124, rectal temp 102.1 pt medicated per MAR. This RN let MD know pt having nausea, no episode of vomiting, medicated per MAR with zofran, good effect. Resting in bed quietly, call perez within reach, pt aware of plan to admit to hospital.
--- NOTE | 2024-03-18 18:38 | PM.IMHP ---
History of Present Illness Date of Service: 03/18/24 Attending physician on admission: Beto Quiles Chief Complaint: chills, fevers, n/v 69-year-old female with history of DVT/PE anticoagulated with Xarelto, history of PA and cardiac arrest, trigeminal neuralgia, osteoporosis, Parkinson's, hypothyroidism, hypertension, CVA, bladder spasms, recurrent UTI who is wheelchair-bound at baseline due to multiple sclerosis presented to the ED earlier today for evaluation of nausea, vomiting, chills, sweats that started abruptly this morning. She had left ureteral stent placement about 3 weeks ago at [facility] with stent removal performed by Dr. Bass in Urology yesterday. She states she felt fine following the procedure but again woke up this morning with symptoms. She denies abdominal pain, dysuria, hematuria, increased urinary frequency, urgency, diarrhea, melena, hematochezia, shortness of breath, chest pain. On arrival, was febrile to 104.2, tachycardic to 121, no hypotension. Has also been intermittently tachypneic. Has a leukocytosis of 27.4. Creatinine 0.95, baseline around 0.69, BUN 12. Sodium 133, electrolytes otherwise within normal limits. Initial lactic acid 3.0, repeat 0.7. Urinalysis significant for 3+ blood, 2+ leukocytes, positive nitrites, positive urinary sediment, negative bacteria. CT abdomen/pelvis shows mild left-sided hydronephrosis with marked perinephric stranding. No ureteral calculi seen, findings may be secondary to stent removal. Incidentally noted are in large fatty liver, calcified pulmonary granulomas, hysterectomy and degenerative changes of the spine. In the ED, has received a total of 3.6 L IVF, IV vancomycin, IV cefepime, Tylenol, ibuprofen, and ondansetron. She will be admitted for further management acute pyelonephritis with severe sepsis. [facility] Medical History Wheelchair dependence Recurrent UTI (urinary tract infection) Sacral decubitus ulcer Pulmonary emboli Cardiac arrest History of trigeminal neuralgia COVID-19 vaccine series completed Osteoporosis Neurogenic urinary bladder disorder NENO (obstructive sleep apnea) Parkinson's variant of multiple system atrophy Thyroid disease History of neurogenic bladder History of MRSA infection Hx of lymphoma Arthritis Back pain Hx pulmonary embolism DVT (deep venous thrombosis) Anemia Hiatal hernia Tran catheter in place Bladder stones Multiple sclerosis CVA (cerebral vascular accident) Myocardial infarction HTN (hypertension) Painful bladder spasm Surgical History Hx of hysterectomy Hx of lumpectomy Hx of vitrectomy History of intraocular lens implant Hx of adenoidectomy Hx of tonsillectomy Hx of laminectomy History of cystoscopy History of biopsy of bladder History of bladder surgery H/O colonoscopy Social History Household Members: None Housing: Apartment Are you a primary respiratory care practitioner to a significant other at home: No Do you presently have visiting nurse or other home services: Yes Patient Tobacco Use Status: Never used Tobacco Second Hand Smoke Exposure: No Use of substances other than those prescribed or required for medical reasons: No Currently Displaying Signs/Symptoms of Drug Intoxication Withdrawal: No Have you been hit, kicked, punched, or otherwise hurt by someone within the past year? If so, by whom?: No Do you feel safe in your current relationship?: No Current Relationship Is there a partner from a previous relationship who is making you feel unsafe now?: No Are you made to feel afraid or neglected: No Advance Directives: Yes Advance Directives Information Provided: Yes Advance Directives on File: No Advance Directives Date on File: 07/05/20 Do you have a plan to hurt others: No Plan Recently lost weight without trying: Unsure How much weight loss: Unsure Eating poorly because of decreased appetite: No Nutrition screen score: 4 Nutrition Risks: No Nutritional Risk Patient : No : No Poor oral hygiene: No service: No Current occupational status: disabled Meds Allergies Allergy/AdvReac Type Severity Reaction Status Date / Time mercury (elemental) Allergy Severe Anaphylaxis Verified 03/18/24 12:09 Penicillins Allergy Severe Hives Verified 03/18/24 12:09 bupropion [From Wellbutrin] Allergy Intermediate Hives Verified 03/18/24 12:09 Iodinated Contrast Media Allergy Intermediate Hives Verified 03/18/24 12:09 [IV Contrast Dye] morphine Allergy Intermediate Hives Verified 03/18/24 12:09 metoclopramide [From Reglan] AdvReac Intermediate Parkinson Verified 03/18/24 12:09 syndrome Active Medications: Current Medications Acetaminophen (Acetaminophen 325 Mg Tablet) 650 mg PO Q6H PRN PRN Reason: Pain, Mild (Pain Scale 1-3), fever or headache Calcium Carbonate (Calcium Carbonate 750 Mg Tab.Chew) 750 mg PO Q4H PRN PRN Reason: Heartburn Cefepime HCl 2 gm/ Sodium (Chloride) 50 mls @ 100 mls/hr IV Q8H [facility] Magnesium Hydroxide (Milk Of Magnesia 30 Ml Oral.Susp) 30 ml PO DAILY PRN PRN Reason: Constipation Melatonin (Melatonin 3 Mg Tablet) 6 mg PO BEDTIME PRN PRN Reason: Insomnia Ondansetron HCl (Ondansetron Hcl 4 Mg/2 Ml Vial) 4 mg IVPUSH Q8H PRN PRN Reason: Nausea and Vomiting Pharmacy Consult (Consult Rx Vancomycin Dosing) 1 each MISCELLANE DAILY PRN PRN Reason: Consult order Sodium Chloride (0.9 % Sodium Chloride Flush 3 Ml Syringe) 3 ml IVFLUSH QSHIFT [facility] Home Medications ?Medication ?Instructions ?Recorded ?Confirmed ?Last Taken ?Type acetaminophen 500 mg capsule 500 mg PO QID 06/18/20 03/18/24 03/18/24 History furosemide 40 mg tablet 40 mg PO DAILY 06/18/20 03/18/24 03/18/24 History levothyroxine 88 mcg tablet 88 mcg PO DAILY@0600 06/18/20 03/18/24 03/18/24 History lisinopril 5 mg tablet 5 mg PO DAILY 06/18/20 03/18/24 03/18/24 History cholecalciferol (vitamin D3) 50 1 cap PO DAILY 02/13/22 03/18/24 03/18/24 History mcg (2,000 unit) capsule docusate sodium 100 mg capsule 100 mg PO BEDTIME PRN Constipation 11/14/22 03/18/24 Unknown History gabapentin 300 mg capsule 300 mg PO TID 07/12/23 03/18/24 03/18/24 History modafinil 200 mg tablet (Provigil) 200 mg PO BID 07/12/23 03/18/24 03/18/24 History baclofen 20 mg tablet 20 mg PO TID 03/18/24 03/18/24 03/18/24 History metronidazole 0.75 % topical cream 1 appl topical BID 03/18/24 03/18/24 03/18/24 History bfrnlaechecn-nbpfzplg-qrvncw 1 tab PO DAILY 03/18/24 03/18/24 03/18/24 History tablet (Multivitamin 50 Plus tablet) rivaroxaban 10 mg tablet (Xarelto) 10 mg PO DAILY 03/18/24 03/18/24 03/18/24 History silver sulfadiazine 1 % topical 1 appl topical DAILY 03/18/24 03/18/24 03/18/24 History cream Physical Exam Vital Signs and Narrative: Vital Signs: Last Vital Signs Temp 102.1 F H 03/18/24 17:00 Pulse 116 H 03/18/24 18:01 Resp 19 03/18/24 18:01 BP 133/54 L 03/18/24 18:01 Pulse Ox 93 03/18/24 18:01 O2 Del Method Nasal Cannula 03/18/24 18:01 O2 Flow Rate 2 03/18/24 18:01 BMI result Body Mass Index 31.3 Constitutional - Awake and Alert, No apparent distress Eyes - PERRLA, EOMI Cardiovascular - S1S2, RRR, No edema Respiratory - Normal lung expansion, Normal respiratory effort, No respiratory distress, CTA bilaterally Gastrointestinal - NT / ND; +BS; No rebound or guarding - No CVA tenderness Extremities - no calf tenderness bilaterally, no swelling Skin - Warm/Dry Neurological - Alert & oriented x3 Psychological - Appropriate affect Results Labs 03/19/24 08:57 03/19/24 08:57 Labs: Laboratory Results - last 24 hr 03/18/24 03/18/24 03/18/24 01:30 12:29 13:03 MCV 91.0 MCH 29.3 MCHC 32.2 RDW 14.8 Plt Count 296 MPV 9.3 L Immature Gran % (Auto) 0.8 H Neut % (Auto) 91.0 H Lymph % (Auto) 4.5 L [place] % (Auto) 3.5 Eos % (Auto) 0.0 Baso % (Auto) 0.2 Lymph # (Auto) 1.2 [place] # (Auto) 1.0 Eos # (Auto) 0.0 Baso # (Auto) 0.1 Abs Immat Gran (auto) 0.22 H Absolute Neuts (auto) 25.0 H Absolute Nucleated RBC 0.000 Nucleated RBC % (auto) 0.0 Smear Tech's Comments VERIFIED Hold Purple Top SEE NOTE Hold Blue Top SEE NOTE Anion Gap 15 Estim Creat Clear Calc 61.5 Estimated GFR 58 Random Glucose 177 H Lactic Acid 3.0 H* Lactic Acid F/U @ 2Hr Calcium 9.9 Total Bilirubin 0.5 AST 12 ALT 12 Alkaline Phosphatase 110 Total Protein 9.5 H Albumin 3.9 Urine Color Urine Appearance Urine pH Ur Specific [place] Urine Protein Urine Glucose (UA) Urine Ketones Urine Blood Urine Nitrite Ur Leukocyte Esterase Urine RBC Urine WBC Ur Squamous Epith Cells Urine Bacteria Hyaline Casts 03/18/24 03/18/24 14:23 15:12 MCV MCH MCHC RDW Plt Count MPV Immature Gran % (Auto) Neut % (Auto) Lymph % (Auto) [place] % (Auto) Eos % (Auto) Baso % (Auto) Lymph # (Auto) [place] # (Auto) Eos # (Auto) Baso # (Auto) Abs Immat Gran (auto) Absolute Neuts (auto) Absolute Nucleated RBC Nucleated RBC % (auto) Smear Tech's Comments Hold Purple Top Hold Blue Top Anion Gap Estim Creat Clear Calc Estimated GFR Random Glucose Lactic Acid Lactic Acid F/U @ 2Hr 0.7 Calcium Total Bilirubin AST ALT Alkaline Phosphatase Total Protein Albumin Urine Color Dark Yellow Urine Appearance Cloudy Urine pH 5.0 Ur Specific [place] 1.020 Urine Protein 100 (2+) H Urine Glucose (UA) Negative Urine Ketones Trace Urine Blood Large (3+) H Urine Nitrite Positive H Ur Leukocyte Esterase Moderate (2+) H Urine RBC >20 H Urine WBC >50 H Ur Squamous Epith Cells 3-5 Urine Bacteria None Seen Hyaline Casts 3-5 Imaging Radiologist's Impressions: Impressions Abdomen/Pelvis CT 03/18/24 13:52 IMPRESSION: 1. Mild left-sided hydronephrosis with marked perinephric stranding. No ureteral calculi are seen. Findings may be secondary to the stent that was removed yesterday. 2. Incidental note made of enlarged fatty liver, calcified pulmonary granulomas, hysterectomy and degenerative changes in the spine. Fleischner guidelines were followed. Assessment and Plan (1) Acidosis, lactic: Status: Acute (2) Urinary tract infection: Qualifiers: Hematuria presence: without hematuria Urinary tract infection type: site unspecified Qualified Code(s): N39.0 - Urinary tract infection, site not specified Status: Acute (3) Severe sepsis: Status: Acute Plan 69-year-old female with history of DVT/PE anticoagulated with Xarelto, history of PA and cardiac arrest, trigeminal neuralgia, osteoporosis, Parkinson's, hypothyroidism, hypertension, CVA, bladder spasms, recurrent UTI admitted for further management of acute pyelonephritis and severe sepsis. #Acute pyelonephritis with severe sepsis -UA with 2+ leukocytes, positive nitrites, 3+ blood, positive urinary sediment, no bacteria -leukocytosis 27, febrile to 104.2, tachycardic, tachypneic. Lactic acidosis 3.0 improved with IV fluids. No septic shock or other end-organ damage -IV cefepime and vancomycin (initiated 03/18) -ID consult. Urology consult -follow CBC, cultures # acute left-sided hydronephrosis -likely residual following stent removal # acute kidney injury-mild -creatinine 0.95, baseline 0.6 -retrieved through 3.6 L IVF in the ED. Hold on further IV fluids -hold nephrotoxins -low-sodium diet -follow renal function/lytes # history of DVT/PE -continue Xarelto # hypothyroidism -continue thyroxine # hypertension -hold lisinopril in setting of YAJAIRA. Continue oral Lasix in the morning # trigeminal neuralgia -continue gabapentin # MS -new baclofen DVT prophylaxis-Xarelto Full code Patient requires inpatient stay at least 2 midnights for management of acute pyelonephritis with severe sepsis requiring IV fluid resuscitation, IV antibiotics, and close monitoring of hemodynamics to prevent decompensation Quality Stroke Does the patient have a stroke diagnosis?: No VTE Prior VTE?: Yes VTE Risk Level:: Medical - moderate - high VTE Device Contraindication: Treatment Not Indicated VTE Drug Contraindication: N/A - Med Ordered
[2024-03-18] MEDS: 0.9 % Sodium Chloride Flush 3 ML SYRINGE IVFLUSH (22:02)
[2024-03-18] MEDS: Gabapentin 300 MG CAPSULE PO (22:04)
[2024-03-18] MEDS: Baclofen 20 MG TABLET PO (22:04)
[2024-03-18] MEDS: modafiniL 100 MG TABLET 200 MG PO (22:48)
[2024-03-19] VITALS (9 sets, daily range): BP systolic 103–148; BP diastolic 51–78; PULSE 97–118; RESP 18–20; TEMP 36.8–39.6; O2SAT 94–97
--- NOTE | 2024-03-19 00:12 | HO.SKINPHOTO ---
Location: Right gluteal fold Location: BL Buttocks
[2024-03-19] MEDS: vancomycin HCL 1,250 MG in 0.9 % Sodium Chloride 250 ML 166.67 MG IV (01:02)
[2024-03-19] MEDS: Acetaminophen 325 MG TABLET 650 MG PO ×4 (01:02→23:37)
[2024-03-19] MEDS: cefEPime HCl 2 GM in 0.9 % Sodium Chloride 50 ML IV ×2 (03:34→12:56)
[2024-03-19] MEDS: Levothyroxine Sodium 88 MCG TABLET PO (04:52)
--- NOTE | 2024-03-19 06:07 | PC.NURSE ---
Addendum entered by Poly Marsh RN 03/19/24 06:42: Pt states brace on her right forearm is to help stop a contracture that is developing. She requested brace removed. Brace next to pt on bed. Original Note: Pt arrived to floor from the ED approx 2130. Pt is wc bound at baseline. She has a brace on her right forearm which she stated stays on all the time. Her left hand has swelling to the fingers, she has two rings on her left ring finger; when asked if she wanted them removed because her fingers are swollen she said no . Left hand appears slightly paler than right arm both had positive radial pulses. Pt has foot drop and contractures in lower extremities. She states she does not wear O2 at baseline. Pt could not answer if the lala catheter is chronic but she has a history of a neurogenic bladder. Pt resistive to care at times stating I'm sick and I just want to sleep . She was febrile in the ED and rectal temp upon arrival to the floor was 100.3. Pt reported chills, given blankets to make more comfortable per pt's request. Pt was offered to be cleaned up and turned this AM and pt stated I want to sleep, not get washed up . Pt was educated about turning and being washed, pt still declined. Call perez within reach, bed alarm on.
[2024-03-19] MEDS: ondansetron HCL 4 MG/2 ML VIAL IVPUSH (08:38)
[2024-03-19] MEDS: 0.9 % Sodium Chloride Flush 3 ML SYRINGE IVFLUSH ×2 (08:38→22:36)
[2024-03-19] MEDS: Ascorbic Acid 500 MG TABLET 1000 MG PO ×2 (08:38→21:25)
[2024-03-19] MEDS: Cholecalciferol (Vitamin D3) 25 MCG TABLET 50 MCG PO (08:38)
[2024-03-19] MEDS: lisinopriL 5 MG TABLET PO (08:39)
[2024-03-19] MEDS: Rivaroxaban 10 MG TABLET PO (08:39)
[2024-03-19] MEDS: Baclofen 20 MG TABLET PO ×2 (08:39→14:38)
[2024-03-19] MEDS: modafiniL 100 MG TABLET 200 MG PO ×2 (08:39→21:25)
[2024-03-19] MEDS: Gabapentin 300 MG CAPSULE PO ×2 (08:39→14:38)
[2024-03-19] MEDS: Furosemide 40 MG TABLET PO (08:39)
[2024-03-19] MEDS: Multivitamin TABLET 1 TAB PO (08:40)
[2024-03-19 09:01] LABS: MANUAL DIFF FLAG NO
[2024-03-19 09:05] LABS: Basophils Percent Auto 0.2 % (0-2); Hematocrit 32.8 % (37.0-47.0); Hemoglobin 10.3 g/dl (12.0-16.0); Imm Gran Abs Auto 0.15 X10*3/uL (0.00-0.03); Imm Gran Pct Auto 0.7 % (0.0-0.4); Lymphocytes Absolute Auto 1.4 X10*3/uL (1.2-4.9); Lymphocytes Percent Auto 6.5 % (20-40); Mean Corpuscular HGB Conc 31.4 g/dl (31.0-35.0); Mean Corpuscular Hemoglobin 29.5 pg (27.0-33.0); Mean Platelet Volume 9.5 fL (9.4-12.3); Monocytes Absolute Auto 1.2 X10*3/uL (0.1-1.2); Monocytes Percent Auto 5.6 % (2-11); Neutrophils Absolute Auto 18.9 x10*3/uL (2.0-8.3); Platelet Count 224 X10*3/uL (160-400); Red Blood Count 3.49 X10*6/uL (4.20-5.50); Red Cell Distribution Width 15.3 % (11.0-16.0); White Blood Count 21.8 X10*3/uL (4.8-10.8)
[2024-03-19 09:17] LABS: Anion Gap 14 (12-20); Blood Urea Nitrogen 14 mg/dL (9-16); Carbon Dioxide 21 mmol/L (22-29); Chloride 104 mmol/L (96-108); Creatinine Clr Calc Pharmacy 60.9; Estimated Glomerular Filt Rate 57; Glucose Random 142 mg/dL (60-115); Potassium 4.1 mmol/L (3.3-5.1); Sodium 135 mmol/L (135-145)
--- NOTE | 2024-03-19 09:54 | MHC.CM.PN ---
IMM 03/19/24, Pt lives alone and has [employer] care all the time. She uses a wheelchair and adiel lift for mobility. HCP on file, pt. said is not current or valid. CM will discuss naming a new HCP when pt. is feeling better. PCP confirmed: Julia Jean Baptiste. Transport home will be via BLS. DCP: home, resume services. CM to follow for DC needs.
--- NOTE | 2024-03-19 11:41 | P.CNUR_ITS ---
History of Present Illness Consult details Consult date: 03/19/24 Narrative: Michelle is a 69-year-old female is wheelchair bound at baseline due to multiple sclerosis, with history of DVT/PE anticoagulated with Xarelto, history of VA and cardiac arrest, trigeminal neuralgia, osteoporosis, Parkinson's, hypothyroidism, hypertension, CVA. She had cystoscopy left ureteral stent removed by urology on 03/17/24. She presented to the ED with symptoms of nausea, vomiting, chills, sweats that started acutely the morning prior to presentation. She had left ureteral stent placement about 3 weeks ago at [facility] - mild left hydronephrosis, perinephric stranding. Review of Systems 2 Review of Systems: Yes all other systems are reviewed and are negative Constitutional: Constitutional: Reports no additional constitutional complaints Eyes: Eyes: Reports no additional eye complaints ENT: Reports system reviewed and no additional complaints, except as documented Cardiovascular: Cardiovascular: Reports no additional cardiovascular complaints Respiratory: Respiratory: Reports no additional respiratory complaints Gastrointestinal: Gastrointestinal: Reports no additional gastrointestinal complaints Genitourinary: Genitourinary: Reports as per HPI Musculoskeletal: Musculoskeletal: Reports no additional musculoskeletal complaints Integumentary/Breasts: Skin/Breast: Reports system reviewed and no additional complaints, except as docu Neurologic: Reports system reviewed and no additional complaints, except as documented Psychiatric: Psychiatric: Reports no additional psychiatric complaints Endocrine: Endocrine: Reports no additional endocrine complaints Hematologic/Lymphatic: Hematologic/Lymphatic: Reports no additional hematologic/lymphatic complaints Allergic/Immunologic: Allergic/Immunologic: Reports no additional allergic/immunologic complaints ON LICENSE OF [facility] Past Medical History Medical History (Updated 04/03/24 @ 14:40 by Gage Bass MD) Recurrent UTI (urinary tract infection) Neurogenic bladder Urinary tract infection Wheelchair dependence Sacral decubitus ulcer Pulmonary emboli Cardiac arrest History of trigeminal neuralgia COVID-19 vaccine series completed Osteoporosis Neurogenic urinary bladder disorder NENO (obstructive sleep apnea) Parkinson's variant of multiple system atrophy Thyroid disease History of neurogenic bladder History of MRSA infection Hx of lymphoma Arthritis Back pain Hx pulmonary embolism DVT (deep venous thrombosis) Anemia Hiatal hernia Tran catheter in place Bladder stones Multiple sclerosis CVA (cerebral vascular accident) Myocardial infarction HTN (hypertension) Painful bladder spasm Surgical History Surgical History Hx of hysterectomy Hx of lumpectomy Hx of vitrectomy History of intraocular lens implant Hx of adenoidectomy Hx of tonsillectomy Hx of laminectomy History of cystoscopy History of biopsy of bladder History of bladder surgery H/O colonoscopy Social History Social History Household Members: None Housing: Apartment Are you a primary direct support professional caregiver to a significant other at home: No Do you presently have visiting nurse or other home services: Yes Patient Tobacco Use Status: Never used Tobacco Second Hand Smoke Exposure: No Advance Directives Date on File: 07/05/20 service: No Current occupational status: disabled Meds Allergies Allergy/AdvReac Type Severity Reaction Status Date / Time mercury (elemental) Allergy Severe Anaphylaxis Verified 03/18/24 12:09 Penicillins Allergy Severe Hives Verified 03/18/24 12:09 bupropion [From Wellbutrin] Allergy Intermediate Hives Verified 03/18/24 12:09 Iodinated Contrast Media Allergy Intermediate Hives Verified 03/18/24 12:09 [IV Contrast Dye] morphine Allergy Intermediate Hives Verified 03/18/24 12:09 metoclopramide [From Reglan] AdvReac Intermediate Parkinson Verified 03/18/24 12:09 syndrome Active Medications: Current Medications Acetaminophen (Acetaminophen 325 Mg Tablet) 650 mg PO Q6H PRN PRN Reason: Pain, Mild (Pain Scale 1-3), fever or headache Last Admin: 03/19/24 08:38 Dose: 650 mg Ascorbic Acid (Ascorbic Acid 500 Mg Tablet) 1,000 mg PO BID [facility] Last Admin: 03/19/24 08:38 Dose: 1,000 mg Baclofen (Baclofen 20 Mg Tablet) 20 mg PO TID [facility] Last Admin: 03/19/24 08:39 Dose: 20 mg Calcium Carbonate (Calcium Carbonate 750 Mg Tab.Chew) 750 mg PO Q4H PRN PRN Reason: Heartburn Docusate Sodium (Docusate Sodium 100 Mg Capsule) 100 mg PO BEDTIME PRN PRN Reason: Constipation Furosemide (Furosemide 40 Mg Tablet) 40 mg PO DAILY [facility]; Protocol Last Admin: 03/19/24 08:39 Dose: 40 mg Gabapentin (Gabapentin 300 Mg Capsule) 300 mg PO TID [facility] Last Admin: 03/19/24 08:39 Dose: 300 mg Cefepime HCl 2 gm/ Sodium (Chloride) 50 mls @ 100 mls/hr IV Q8H [facility] Last Infusion: 03/19/24 04:07 Dose: Infused Vancomycin HCl 750 mg/ Sodium (Chloride) 265 mls @ 265 mls/hr IV Q12H [facility] Levothyroxine Sodium (Levothyroxine Sodium 88 Mcg Tablet) 88 mcg PO DAILY@0600 [facility] Last Admin: 03/19/24 04:52 Dose: 88 mcg Lisinopril (Lisinopril 5 Mg Tablet) 5 mg PO DAILY [facility]; Protocol Last Admin: 03/19/24 08:39 Dose: 5 mg Magnesium Hydroxide (Milk Of Magnesia 30 Ml Oral.Susp) 30 ml PO DAILY PRN PRN Reason: Constipation Melatonin (Melatonin 3 Mg Tablet) 6 mg PO BEDTIME PRN PRN Reason: Insomnia Modafinil (Modafinil 100 Mg Tablet) 200 mg PO BID [facility] Last Admin: 03/19/24 08:39 Dose: 200 mg Multivitamins/Vitamin C (Multivitamin Tablet) 1 tab PO DAILY [facility] Last Admin: 03/19/24 08:40 Dose: 1 tab Ondansetron HCl (Ondansetron Hcl 4 Mg/2 Ml Vial) 4 mg IVPUSH Q8H PRN PRN Reason: Nausea and Vomiting Last Admin: 03/19/24 08:38 Dose: 4 mg Pharmacy Consult (Consult Rx Vancomycin Dosing) 1 each MISCELLANE DAILY PRN PRN Reason: Consult order Rivaroxaban (Rivaroxaban 10 Mg Tablet) 10 mg PO DAILY [facility] Last Admin: 03/19/24 08:39 Dose: 10 mg Sodium Chloride (0.9 % Sodium Chloride Flush 3 Ml Syringe) 3 ml IVFLUSH QSHIFT [facility] Last Admin: 03/19/24 08:38 Dose: 3 ml Vitamin D (Cholecalciferol (Vitamin D3) 25 Mcg Tablet) 50 mcg PO DAILY [facility] Last Admin: 03/19/24 08:38 Dose: 50 mcg Home Medications ?Medication ?Instructions ?Recorded ?Confirmed ?Last Taken ?Type acetaminophen 500 mg capsule 500 mg PO QID 06/18/20 04/03/24 03/18/24 History furosemide 40 mg tablet 40 mg PO DAILY 06/18/20 04/03/24 03/18/24 History levothyroxine 88 mcg tablet 88 mcg PO DAILY@0600 06/18/20 04/03/24 03/18/24 History lisinopril 5 mg tablet 5 mg PO DAILY 06/18/20 04/03/24 03/18/24 History cholecalciferol (vitamin D3) 50 1 cap PO DAILY 02/13/22 04/03/24 03/18/24 History mcg (2,000 unit) capsule docusate sodium 100 mg capsule 100 mg PO BEDTIME PRN Constipation 11/14/22 04/03/24 Unknown History gabapentin 300 mg capsule 300 mg PO TID 07/12/23 04/03/24 03/18/24 History modafinil 200 mg tablet (Provigil) 200 mg PO BID 07/12/23 04/03/24 03/18/24 History baclofen 20 mg tablet 20 mg PO TID 03/18/24 04/03/24 03/18/24 History metronidazole 0.75 % topical cream 1 appl topical BID 03/18/24 04/03/24 03/18/24 History [id number] 1 tab PO DAILY 03/18/24 04/03/24 03/18/24 History tablet (Multivitamin 50 Plus tablet) rivaroxaban 10 mg tablet (Xarelto) 10 mg PO DAILY 03/18/24 04/03/24 03/18/24 History silver sulfadiazine 1 % topical 1 appl topical DAILY 03/18/24 04/03/24 03/18/24 History cream Physical Exam 2 Vital Signs: Vital Signs: Last Vital Signs Temp 99.7 F 03/19/24 11:18 Pulse 110 H 03/19/24 11:18 Resp 20 03/19/24 11:18 BP 106/54 L 03/19/24 11:18 Pulse Ox 94 03/19/24 11:18 O2 Del Method Room Air 03/19/24 11:18 O2 Flow Rate 2 03/19/24 03:23 BMI result Body Mass Index 32.1 Results Labs 03/23/24 07:01 03/25/24 06:31 Labs: Abnormal lab results 03/18/24 03/18/24 03/18/24 Range/Units 12:29 13:03 14:23 WBC 27.4 H (4.8-10.8) X10*3/uL RBC 3.99 L (4.20-5.50) X10*6/uL Hgb 11.7 L (12.0-16.0) g/dl Hct 36.3 L (37.0-47.0) % MPV 9.3 L (9.4-12.3) fL Immature Gran % (Auto) 0.8 H (0.0-0.4) % Neut % (Auto) 91.0 H (45-73) % Lymph % (Auto) 4.5 L (20-40) % Abs Immat Gran (auto) 0.22 H (0.00-0.03) X10*3/uL Absolute Neuts (auto) 25.0 H (2.0-8.3) x10*3/uL Sodium 133 L (135-145) mmol/L Carbon Dioxide (22-29) mmol/L Random Glucose 177 H (60-115) mg/dL Lactic Acid 3.0 H* (0.5-2.0) mmol/L Total Protein 9.5 H (6.5-8.0) g/dL Urine Protein 100 (2+) H (Neg-Trace) mg/dL Urine Blood Large (3+) H (Negative) Urine Nitrite Positive H (Negative) Ur Leukocyte Esterase Moderate (2+) H (Negative) Urine RBC >20 H (0-2) /HPF Urine WBC >50 H (0-5) /HPF /03/05 Range/Units 08:57 WBC 21.8 H (4.8-10.8) X10*3/uL RBC 3.49 L (4.20-5.50) X10*6/uL Hgb 10.3 L (12.0-16.0) g/dl Hct 32.8 L (37.0-47.0) % MPV (9.4-12.3) fL Immature Gran % (Auto) 0.7 H (0.0-0.4) % Neut % (Auto) 87.0 H (45-73) % Lymph % (Auto) 6.5 L (20-40) % Abs Immat Gran (auto) 0.15 H (0.00-0.03) X10*3/uL Absolute Neuts (auto) 18.9 H (2.0-8.3) x10*3/uL Sodium (135-145) mmol/L Carbon Dioxide 21 L (22-29) mmol/L Random Glucose 142 H (60-115) mg/dL Lactic Acid (0.5-2.0) mmol/L Total Protein (6.5-8.0) g/dL Urine Protein (Neg-Trace) mg/dL Urine Blood (Negative) Urine Nitrite (Negative) Ur Leukocyte Esterase (Negative) Urine RBC (0-2) /HPF Urine WBC (0-5) /HPF Short CBC 03/18/24 03/19/24 Range/Units 12:29 08:57 WBC 27.4 H 21.8 H (4.8-10.8) X10*3/uL Hgb 11.7 L 10.3 L (12.0-16.0) g/dl Hct 36.3 L 32.8 L (37.0-47.0) % Plt Count 296 224 (160-400) X10*3/uL BMP 03/18/24 03/19/24 13:03 08:57 Sodium 133 L 135 Potassium 4.2 4.1 Chloride 97 104 Carbon Dioxide 25 21 L BUN 12 14 Creatinine 0.95 0.97 Calcium 9.9 9.0 D Liver Function 03/18/24 Range/Units 13:03 Total Bilirubin 0.5 (0.0-1.0) mg/dL AST 12 (5-31) U/L ALT 12 (0-31) U/L Alkaline Phosphatase 110 (39-117) U/L Albumin 3.9 (3.5-5.0) g/dL Urine 03/18/24 Range/Units 14:23 Urine Color Dark Yellow Urine Appearance Cloudy Urine pH 5.0 (5.0-9.0) Ur Specific Fitzpatrick 1.020 (1.005-1.025) Urine Protein 100 (2+) H (Neg-Trace) mg/dL Urine Glucose (UA) Negative (Negative) mg/dL Imaging Abdomen CT scan report/results: report reviewed and image reviewed CT scan - pelvis: report reviewed and image reviewed Assessment and Plan (1) Urinary tract infection: Qualifiers: Hematuria presence: without hematuria Urinary tract infection type: s ite unspecified Qualified Code(s): N39.0 - Urinary tract infection, site not specified Status: Inactive (2) Pyelonephritis: Status: Resolved (3) Neurogenic bladder: Status: Acute Plan The patient is receiving IV antibiotics, Cefipime blood and urine c/s pending No plans for surgical intervention/ureteral stent at this time Procedures Date of Service Date of Service: 04/12/24
[2024-03-19 12:53] LABS: Vancomycin Random 16.7 mcg/mL (15-20)
--- NOTE | 2024-03-19 16:14 | HO.PM.IMPN ---
Subjective Subjective Date of Service: 03/19/24 Interval History: Acute pyelonephritis with severe sepsis,bacteremia Review of Systems still febrile seems somewaht weak ,confused Denies any abdominal pain or shortness of breath or chest pain Physical Exam Vital Signs: Vital Signs: Last Vital Signs Temp 103.3 F H 03/19/24 15:55 Pulse 103 H 03/19/24 15:55 Resp 18 03/19/24 15:55 BP 125/57 L 03/19/24 15:55 Pulse Ox 97 03/19/24 15:55 O2 Del Method Room Air 03/19/24 15:55 O2 Flow Rate 2 03/19/24 03:23 BMI result Body Mass Index 32.1 Appearance: Alert.? Oriented. but feels some what confused cvs: rrr, [id number] . res: clear to auscultation ,no rhonchii or wheezing abd: no rebound or guarding ,nt, bs present. Gu: NO CVA Tenderness . ext pulses present , no cyanosis . neuro: axo3 , nonfocal. Objective Data Active Medications Acetaminophen (Acetaminophen 325 Mg Tablet) 650 mg PO Q6H PRN PRN Reason: Pain, Mild (Pain Scale 1-3), fever or headache Last Admin: 03/19/24 14:21 Dose: 650 mg Documented By: LOKESH Ascorbic Acid (Ascorbic Acid 500 Mg Tablet) 1,000 mg PO BID [facility] Last Admin: 03/19/24 08:38 Dose: 1,000 mg Documented By: LOKESH Baclofen (Baclofen 20 Mg Tablet) 20 mg PO TID [facility] Last Admin: 03/19/24 14:38 Dose: 20 mg Documented By: LOKESH Calcium Carbonate (Calcium Carbonate 750 Mg Tab.Chew) 750 mg PO Q4H PRN PRN Reason: Heartburn Docusate Sodium (Docusate Sodium 100 Mg Capsule) 100 mg PO BEDTIME PRN PRN Reason: Constipation Furosemide (Furosemide 40 Mg Tablet) 40 mg PO DAILY [facility]; Protocol Last Admin: 03/19/24 08:39 Dose: 40 mg Documented By: LOKESH Gabapentin (Gabapentin 300 Mg Capsule) 300 mg PO TID [facility] Last Admin: 03/19/24 14:38 Dose: 300 mg Documented By: LOKESH Cefepime HCl 2 gm/ Sodium (Chloride) 50 mls @ 100 mls/hr IV Q8H [facility] Last Infusion: 03/19/24 13:34 Dose: Infused Documented By: LOKESH Vancomycin HCl 750 mg/ Sodium (Chloride) 265 mls @ 265 mls/hr IV Q12H [facility] Levothyroxine Sodium (Levothyroxine Sodium 88 Mcg Tablet) 88 mcg PO DAILY@0600 [facility] Last Admin: 03/19/24 04:52 Dose: 88 mcg Documented By: AMI Lisinopril (Lisinopril 5 Mg Tablet) 5 mg PO DAILY [facility]; Protocol Last Admin: 03/19/24 08:39 Dose: 5 mg Documented By: LOKESH Magnesium Hydroxide (Milk Of Magnesia 30 Ml Oral.Susp) 30 ml PO DAILY PRN PRN Reason: Constipation Melatonin (Melatonin 3 Mg Tablet) 6 mg PO BEDTIME PRN PRN Reason: Insomnia Modafinil (Modafinil 100 Mg Tablet) 200 mg PO BID [facility] Last Admin: 03/19/24 08:39 Dose: 200 mg Documented By: LOKESH Multivitamins/Vitamin C (Multivitamin Tablet) 1 tab PO DAILY [facility] Last Admin: 03/19/24 08:40 Dose: 1 tab Documented By: LOKESH Ondansetron HCl (Ondansetron Hcl 4 Mg/2 Ml Vial) 4 mg IVPUSH Q8H PRN PRN Reason: Nausea and Vomiting Last Admin: 03/19/24 08:38 Dose: 4 mg Documented By: LOKESH Pharmacy Consult (Consult Rx Vancomycin Dosing) 1 each MISCELLANE DAILY PRN PRN Reason: Consult order Rivaroxaban (Rivaroxaban 10 Mg Tablet) 10 mg PO DAILY [facility] Last Admin: 03/19/24 08:39 Dose: 10 mg Documented By: LOKESH Sodium Chloride (0.9 % Sodium Chloride Flush 3 Ml Syringe) 3 ml IVFLUSH QSHIFT [facility] Last Admin: 03/19/24 15:59 Dose: Not Given Documented By: LOKESH Non-Admin Reason: Previously Administered Vitamin D (Cholecalciferol (Vitamin D3) 25 Mcg Tablet) 50 mcg PO DAILY [facility] Last Admin: 03/19/24 08:38 Dose: 50 mcg Documented By: LOKESH Labs 03/19/24 08:57 03/19/24 08:57 Labs: Laboratory Results - last 24 hr 03/18/24 03/19/24 03/19/24 13:03 08:57 12:08 MCV 94.0 MCH 29.5 MCHC 31.4 RDW 15.3 Plt Count 224 MPV 9.5 Immature Gran % (Auto) 0.7 H Neut % (Auto) 87.0 H Lymph % (Auto) 6.5 L Wayne % (Auto) 5.6 Eos % (Auto) 0.0 Baso % (Auto) 0.2 Lymph # (Auto) 1.4 Wayne # (Auto) 1.2 Eos # (Auto) 0.0 Baso # (Auto) 0.0 Abs Immat Gran (auto) 0.15 H Absolute Neuts (auto) 18.9 H Absolute Nucleated RBC 0.000 Nucleated RBC % (auto) 0.0 Anion Gap 15 14 Estim Creat Clear Calc 61.5 60.9 Estimated GFR 58 57 Random Glucose 177 H 142 H Calcium 9.9 9.0 D Total Bilirubin 0.5 AST 12 ALT 12 Alkaline Phosphatase 110 Total Protein 9.5 H Albumin 3.9 Random Vancomycin 16.7 Microbiology Microbiology Results: Microbiology 03/18/24 12:29 Blood Culture - Preliminary Blood - Venous Prelim: GPC Gram Stain only 03/18/24 Unknown Urine Culture - Preliminary Urine Catheterized - Straight Catheter Culture in progress. 03/18/24 13:03 Blood Culture - Preliminary Blood - Venous Prelim: GPC Gram Stain only Assessment and Plan (1) Pyelonephritis: Status: Acute (2) Severe sepsis: Status: Acute Plan 69-year-old female with history of DVT/PE anticoagulated with Xarelto, history of MA and cardiac arrest, trigeminal neuralgia, osteoporosis, Parkinson's, hypothyroidism, hypertension, CVA, bladder spasms, recurrent UTI admitted for further management of acute pyelonephritis and severe sepsis. Acute pyelonephritis with severe sepsis -UA with 2+ leukocytes, positive nitrites, 3+ blood, positive urinary sediment, no bacteria -leukocytosis 27, febrile to 104.2, tachycardic, tachypneic. Lactic acidosis 3.0 improved with IV fluids. No septic shock or other end-organ damage initially started on cefepime and vancomycin (initiated 03/18),ID consult.-patient has bacteremia Gram-positive cocci, discussed with ID DC cefepime and vanc and added daptomycin. Urology consult noted-continue IV daptomycin. No plans for surgical intervention/ureteral stent. -follow CBC, cultures toxic metabolic encephalopathy sec to above. acute left-sided hydronephrosis -likely residual following stent removal acute kidney injury-mild -creatinine 0.95, baseline 0.6 Acute lactic acidosis seems to be resolved with hydration. -follow renal function/lytes history of DVT/PE -continue Xarelto hypothyroidism -continue thyroxine hypertension Hold blood pressure medication and Lasix currently trigeminal neuralgia Hold gabapentin MS Hold baclofen DVT prophylaxis-Xarelto Full code Ongoing hospitalization need acute pyelonephritis with severe sepsis requiring IV fluid resuscitation, IV antibiotics, and close monitoring of hemodynamics to prevent decompensation. Will add ICU evaluation-done of care. Patient friend and healthcare proxy updated. Quality Stroke Does the patient have a stroke diagnosis?: No VTE Prior VTE?: Yes VTE Risk Level:: Medical - moderate - high VTE Device Contraindication: Treatment Not Indicated VTE Drug Contraindication: N/A - Med Ordered
[2024-03-19] MEDS: Lactated Ringers 1,000 ML 100 ML IVCONT (17:35)
--- NOTE | 2024-03-19 17:47 | HO.WOUND ---
Wound Consult: Initial 69yr old?female admitted to [facility] [place] on 03/18/24 18:34 - See progress notes and H&P for detailed history.? Wound consult placed for Buttock.? Patient agreeable to assessment and photo documentation.? Buttocks and Right Ischium Etiology: MASD (Moisture associated skin Damage ) and fungal dermatitis Present on Admission Wound Bed: dark red hyperpigmented tissue - blanchable tissue - moist and desquamation noted Drainage / Odor: none noted Edges: ? irregular Priti wound: red pink blanchable tissue with areas noted for previous injury and irregular healed skin formation No Induration, Fluctuance or Warmth noted Pain: denies Goals of Treatment: ? barrier cream and antifungal powder application Coccyx Etiology: Deep Tissue Injury - Present on Admission Measurements: See charting for detailed measurements Wound Bed: dark purple red nonblanchable tissue over coccyx with small linear opening with red moist wound bed Drainage / Odor: none noted Edges: ? linear Priti wound: MASD and fungal dermatitis - No Induration, Fluctuance or Warmth noted Pain: denies Goals of Treatment: ?Off Load Pressure and Triad to protect from friction and moisture Recommendations: 1. Turn and Reposition every 2 hours and as needed for patient comfort.? Use pillows or wedges to support off loading positions. 2. Off Load all bony prominences with use of pillows and heel boots if needed.? Apply Preventative foams where needed. ? 3. Monitor for incontinence and moisture control, use barrier creams when needed for prevention and treatment. 4. Provide adequate and supplemental nutrition.? 5. Order low air loss mattress. 6. When applicable maintain blood glucose levels per Providers order. 7. Coccyx, Buttock and Ischium - Off Load Pressure - Cleanse with PH balance spray or wipes, pat dry. ?Apply antifungal power to assist with moisture management.? Be sure to dust of excess powder to prevent caking on skin and in folds. Apply per provider orders. Apply thin layer of Triad to wound bed - only pat and dab no scrub and rub when soiling occurs. Reapply thin layer PRN after each episode of incontinence. Re-consult wound care Nurse for wound deterioration or wound changes.
--- NOTE | 2024-03-19 19:27 | W.PM.CCCN ---
History of Present Illness Data of Consult Service Date: 03/19/24 Requesting physician: Nestor Solano Primary Care Provider: Kristen Jean Baptiste MD HPI Reason for consult: Sepsis HPI: ?69-year-old female with underlying history of coronary disease status post NE, PE and DVT currently on Xarelto, history of Parkinson's, trigeminal neuralgia, hypothyroidism, osteoporosis, hypertension, CVA, bladder spasms, recurrent urinary tract infections, multiple sclerosis among others who is wheelchair-bound due to lower extremity weakness in the setting of MS. ?Patient had been admitted to the hospital on 03/18/2024 due to nausea, vomiting, fever and chills, workup in the emergency room was significant for fever of 104.2 F, tachycardic at 120 but otherwise stable blood pressure, her white count was 27.4, lactic acid of 3 and a urine consistent with urinary tract infection.? CT of the abdomen pelvis showed mild left-sided hydronephrosis with perinephric stranding and without calculi. ?Reportedly the patient had left ureteral stent removal on 03/17/[address] Bass (given that she had stent placement 3 weeks prior to these are [facility]). Patient had been admitted to the floor, she has been treated with IV vancomycin and cefepime and later on switched to daptomycin and cefepime per Infectious Disease input. This evening we are consulted given the concern for worsening sepsis and borderline blood pressure.? Patient has not been hypotensive throughout the hospital stay, she remains febrile, according to nursing personnel, her mentation has been on and off in an intermittent manner in the appears to be the case during my attempted interview as the patient is alert but otherwise not oriented and not capable of giving a history. Chart, laboratories and images will be reviewed. ROS:? Unable to obtain Past Medical History:? As above Neurogenic bladder Sacral decubitus ulcer Obstructive sleep apnea History of lymphoma in 2005 Hiatal hernia Past Surgical History:? As above Hysterectomy Right axillary lumpectomy Left eye intra-ocular lens implant Laminectomy Tonsillectomy Adenoidectomy Vitrectomy Bladder surgery in Botox intervention with biopsy Colonoscopy Family history:? Noncontributory Social History:? Patient lives in an apartment, there is no history of alcohol, tobacco or drug use.? Wheelchair dependent. CODE STATUS: FULL CODE Allergies: Penicillin, contrast dye, morphine, bupropion (hives), mercury causes anaphylaxis, Reglan causes Parkinson's syndrome like symptoms Home Medications: See Med Rec PHYSICAL EXAM: VS: ?103/51, 102, 20, 97% 2 L nasal cannula, 103.1 degrees F. General:? Alert upon calling her name, not oriented, falls asleep with ease. Skin:? 2+ stenting of the skin upper extremities, Intact, no lesions, edema, erythema, clubbing or cyanosis.? No ulcers. HEENT:? Head is normocephalic, atraumatic, pupils equal round reactive to light accommodation bilaterally.? Extraocular movements appear intact.? Buccal mucosa is very dry.? Neck is supple without lymphadenopathy. Cardiac:? Tachycardic 104 beats per minute, no murmurs, rubs, gallops. Pulmonary:? Clear to auscultation, no wheezes, rales or rhonchi. Abdomen:? Protuberant, positive bowel sounds in all 4 quadrants.? Soft, nontender, no rebound or guarding.? Musculoskeletal:? Patient is able to move her upper extremities upon request at the major joints for flexion-extension.? She has no movement of the bilateral lower extremities which she states is chronic. ?no edema no asymmetry. Neurologic:? As above, otherwise no focal deficits noted other than chronic lower extremity weakness. Vascular:? 2+ pulses upper and lower extremities distally. ?Less than 2nd capillary refill of the finger and toes bilaterally upper and lower extremities. SIGNIFICANT LABORATORY DATA:? As above Repeat labs shows white count 16.1, H&H of 9.8 and 31.2, platelets 201.? Sodium 136, potassium 3.7, chloride 105, carbon dioxide 22, anion gap 13, BUN 17, creatinine 0.97 (BUN was normal before) albumin 3.0. Venous blood gas shows pH of 7.47, pCO2 29, PO2 51, HC03 21. REVIEW OF IMAGES: Head CT shows no acute intracranial abnormality and/or hemorrhage.? Mother chronic microvascular ischemic changes and generalized cerebral volume loss. CT of the abdomen and pelvis IMPRESSION: 1. Mild left-sided hydronephrosis with marked perinephric stranding. No ureteral calculi are seen. Findings may be secondary to the stent that was removed yesterday. 2. Incidental note made of enlarged fatty liver, calcified pulmonary granulomas, hysterectomy and degenerative changes in the spine. ASSESSMENT : 1. Acute sepsis without shock 2. Acute pyelonephritis 3. Acute left-sided hydronephrosis post stent removal 4. Mild acute kidney injury with BUN to creatinine ratio greater than 20 likely volume depletion related. 5. History of DVT and PE currently on Xarelto 6. Essential hypertension 7. History of hypothyroidism 8. History of trigeminal neuralgia 9. Hypoalbuminemia 10. Acute metabolic encephalopathy 11. Mixed compensated metabolic acidosis 12. Incidental enlarged fatty liver, calcified pulmonary granulomas in need of outpatient follow-up 13. Normocytic anemia likely of chronic illness, rule out microscopic GI bleed given that she is on Xarelto. PLAN OF CARE: At this point I do not think the patient needs ICU level of care.? She certainly appears significantly dehydrated therefore I will increase IV fluid rate to 150 cc of lactated Ringer per hour. So far the patient is about 0.5 L behind her normal hydration limits, given that she continues to have fever and insensible losses I would continue with IV fluids monitoring her O2 sat and respiratory capacity closely to avoid fluid overload. Continue with daptomycin and cefepime as per recommended by Infectious Disease.? Avoid nephrotoxins, monitor electrolytes closely, continue with Xarelto, hold antihypertensive medications.? Hold gabapentin for this could be retained given the mild renal dysfunction leading to further somnolence and obtundation. I will order some albumin salt infusion as well as single amp of bicarb and recommend repeat laboratories tomorrow. If the patient decompensates, certainly do not hesitate to call us back so we can re-evaluate the possibility of transferring her to the ICU which again at this point is not necessary. Recommend stool guaiac and iron studies.? Clinical update [id number] a.m. Patient's vital signs are now as follows 133/83, 91, 18, 99% on 2 L nasal cannula, temperature 100.3 degrees. We should continue with the above-mentioned care.? At this point no further ICU management as needed. Case was discussed in detail with Dr. Solano Critical care time used for critical evaluation of this patient, diagnosis, treatment and coordination of care, review her records and documentation TOTAL CRITICAL CARE TIME 75 MIN . discussion and coordination with consultants, completely separate from any procedures performed. Patient's care was discussed in detail with Dr. Staton is aware of all the above as well as the plan of care for this patient. [facility] Past Medical History Medical History Wheelchair dependence Recurrent UTI (urinary tract infection) Sacral decubitus ulcer Pulmonary emboli Cardiac arrest History of trigeminal neuralgia COVID-19 vaccine series completed Osteoporosis Neurogenic urinary bladder disorder NENO (obstructive sleep apnea) Parkinson's variant of multiple system atrophy Thyroid disease History of neurogenic bladder History of MRSA infection Hx of lymphoma Arthritis Back pain Hx pulmonary embolism DVT (deep venous thrombosis) Anemia Hiatal hernia Tran catheter in place Bladder stones Multiple sclerosis CVA (cerebral vascular accident) Myocardial infarction HTN (hypertension) Painful bladder spasm Surgical History Surgical History Hx of hysterectomy Hx of lumpectomy Hx of vitrectomy History of intraocular lens implant Hx of adenoidectomy Hx of tonsillectomy Hx of laminectomy History of cystoscopy History of biopsy of bladder History of bladder surgery H/O colonoscopy Social History Social History Household Members: None Housing: Apartment Are you a primary inspector health care facilities to a significant other at home: No Do you presently have visiting nurse or other home services: Yes Patient Tobacco Use Status: Never used Tobacco Second Hand Smoke Exposure: No Use of substances other than those prescribed or required for medical reasons: No Currently Displaying Signs/Symptoms of Drug Intoxication Withdrawal: No Have you been hit, kicked, punched, or otherwise hurt by someone within the past year? If so, by whom?: No Do you feel safe in your current relationship?: No Current Relationship Is there a partner from a previous relationship who is making you feel unsafe now?: No Are you made to feel afraid or neglected: No Advance Directives: Yes Advance Directives Information Provided: Yes Advance Directives on File: No Advance Directives Date on File: 07/05/20 Do you have a plan to hurt others: No Plan Recently lost weight without trying: Unsure How much weight loss: Unsure Eating poorly because of decreased appetite: No Nutrition screen score: 4 Nutrition Risks: No Nutritional Risk Patient : No : No Poor oral hygiene: No service: No Current occupational status: disabled Meds Allergies Allergy/AdvReac Type Severity Reaction Status Date / Time mercury (elemental) Allergy Severe Anaphylaxis Verified 03/18/24 12:09 Penicillins Allergy Severe Hives Verified 03/18/24 12:09 bupropion [From Wellbutrin] Allergy Intermediate Hives Verified 03/18/24 12:09 Iodinated Contrast Media Allergy Intermediate Hives Verified 03/18/24 12:09 [IV Contrast Dye] morphine Allergy Intermediate Hives Verified 03/18/24 12:09 metoclopramide [From Reglan] AdvReac Intermediate Parkinson Verified 03/18/24 12:09 syndrome Active Medications: Current Medications Acetaminophen (Acetaminophen 325 Mg Tablet) 650 mg PO Q6H PRN PRN Reason: Pain, Mild (Pain Scale 1-3), fever or headache Last Admin: 03/19/24 14:21 Dose: 650 mg Ascorbic Acid (Ascorbic Acid 500 Mg Tablet) 1,000 mg PO BID [facility] Last Admin: 03/19/24 08:38 Dose: 1,000 mg Baclofen (Baclofen 20 Mg Tablet) 20 mg PO TID [facility] Last Admin: 03/19/24 14:38 Dose: 20 mg Calcium Carbonate (Calcium Carbonate 750 Mg Tab.Chew) 750 mg PO Q4H PRN PRN Reason: Heartburn Docusate Sodium (Docusate Sodium 100 Mg Capsule) 100 mg PO BEDTIME PRN PRN Reason: Constipation Furosemide (Furosemide 40 Mg Tablet) 40 mg PO DAILY [facility]; Protocol Last Admin: 03/19/24 08:39 Dose: 40 mg Gabapentin (Gabapentin 300 Mg Capsule) 300 mg PO TID [facility] Last Admin: 03/19/24 14:38 Dose: 300 mg Daptomycin 700 mg/ Sodium (Chloride) 64 mls @ 105.254 mls/hr IV Q24H [facility] Lactated Ringer's (Lr) 1,000 mls @ 150 mls/hr IVCONT .Q6H40M [facility] Last Admin: 03/19/24 17:35 Dose: 100 mls/hr Levothyroxine Sodium (Levothyroxine Sodium 88 Mcg Tablet) 88 mcg PO DAILY@0600 [facility] Last Admin: 03/19/24 04:52 Dose: 88 mcg Lisinopril (Lisinopril 5 Mg Tablet) 5 mg PO DAILY [facility]; Protocol Last Admin: 03/19/24 08:39 Dose: 5 mg Magnesium Hydroxide (Milk Of Magnesia 30 Ml Oral.Susp) 30 ml PO DAILY PRN PRN Reason: Constipation Melatonin (Melatonin 3 Mg Tablet) 6 mg PO BEDTIME PRN PRN Reason: Insomnia Modafinil (Modafinil 100 Mg Tablet) 200 mg PO BID [facility] Last Admin: 03/19/24 08:39 Dose: 200 mg Multivitamins/Vitamin C (Multivitamin Tablet) 1 tab PO DAILY [facility] Last Admin: 03/19/24 08:40 Dose: 1 tab Nystatin (Nystatin Powder 15 Gm Bottle) 1 appl TOPICAL BID [facility]; Protocol Ondansetron HCl (Ondansetron Hcl 4 Mg/2 Ml Vial) 4 mg IVPUSH Q8H PRN PRN Reason: Nausea and Vomiting Last Admin: 03/19/24 08:38 Dose: 4 mg Rivaroxaban (Rivaroxaban 10 Mg Tablet) 10 mg PO DAILY [facility] Last Admin: 03/19/24 08:39 Dose: 10 mg Sodium Chloride (0.9 % Sodium Chloride Flush 3 Ml Syringe) 3 ml IVFLUSH QSHIFT [facility] Last Admin: 03/19/24 15:59 Dose: Not Given Vitamin D (Cholecalciferol (Vitamin D3) 25 Mcg Tablet) 50 mcg PO DAILY [facility] Last Admin: 03/19/24 08:38 Dose: 50 mcg Home Medications ?Medication ?Instructions ?Recorded ?Confirmed ?Last Taken ?Type acetaminophen 500 mg capsule 500 mg PO QID 06/18/20 03/18/24 03/18/24 History furosemide 40 mg tablet 40 mg PO DAILY 06/18/20 03/18/24 03/18/24 History levothyroxine 88 mcg tablet 88 mcg PO DAILY@0600 06/18/20 03/18/24 03/18/24 History lisinopril 5 mg tablet 5 mg PO DAILY 06/18/20 03/18/24 03/18/24 History cholecalciferol (vitamin D3) 50 1 cap PO DAILY 02/13/22 03/18/24 03/18/24 History mcg (2,000 unit) capsule docusate sodium 100 mg capsule 100 mg PO BEDTIME PRN Constipation 11/14/22 03/18/24 Unknown History gabapentin 300 mg capsule 300 mg PO TID 07/12/23 03/18/24 03/18/24 History modafinil 200 mg tablet (Provigil) 200 mg PO BID 07/12/23 03/18/24 03/18/24 History baclofen 20 mg tablet 20 mg PO TID 03/18/24 03/18/24 03/18/24 History metronidazole 0.75 % topical cream 1 appl topical BID 03/18/24 03/18/24 03/18/24 History kezllfsfyued-hlpoivbx-ahtokr 1 tab PO DAILY 03/18/24 03/18/24 03/18/24 History tablet (Multivitamin 50 Plus tablet) rivaroxaban 10 mg tablet (Xarelto) 10 mg PO DAILY 03/18/24 03/18/24 03/18/24 History silver sulfadiazine 1 % topical 1 appl topical DAILY 03/18/24 03/18/24 03/18/24 History cream Physical Exam Vital Signs: Vital Signs: Last Vital Signs Temp 103.1 F H 03/19/24 19:04 Pulse 102 H 03/19/24 19:04 Resp 20 03/19/24 19:04 BP 103/51 L 03/19/24 19:04 Pulse Ox 97 03/19/24 19:04 O2 Del Method Nasal Cannula 03/19/24 19:04 O2 Flow Rate 2 03/19/24 19:04 BMI result Body Mass Index 32.1 Results Labs 03/19/24 19:46 03/19/24 19:46 Labs: Short CBC 03/19/24 Range/Units 08:57 WBC 21.8 H (4.8-10.8) X10*3/uL Hgb 10.3 L (12.0-16.0) g/dl Hct 32.8 L (37.0-47.0) % Plt Count 224 (160-400) X10*3/uL BMP 03/18/24 03/19/24 13:03 08:57 Sodium 133 L 135 Potassium 4.2 4.1 Chloride 97 104 Carbon Dioxide 25 21 L BUN 12 14 Creatinine 0.95 0.97 Calcium 9.9 9.0 D Liver Function 03/18/24 Range/Units 13:03 Total Bilirubin 0.5 (0.0-1.0) mg/dL AST 12 (5-31) U/L ALT 12 (0-31) U/L Alkaline Phosphatase 110 (39-117) U/L Albumin 3.9 (3.5-5.0) g/dL Microbiology Microbiology Results: Microbiology 03/18/24 12:29 Blood - Venous Blood Culture - Preliminary Prelim: GPC Gram Stain only 03/18/24 Unknown Urine Catheterized - Straight Catheter Urine Culture - Preliminary Culture in progress. 03/18/24 13:03 Blood - Venous Blood Culture - Preliminary Prelim: GPC Gram Stain only
[2024-03-19 19:49] LABS: MANUAL DIFF FLAG NO
[2024-03-19 19:52] LABS: Venous Blood Gas Refer to POC result
[2024-03-19 19:53] LABS: Basophils Percent Auto 0.2 % (0-2); Eosinophils Percent Auto 0.1 % (0-4); Hematocrit 31.2 % (37.0-47.0); Hemoglobin 9.8 g/dl (12.0-16.0); Imm Gran Abs Auto 0.11 X10*3/uL (0.00-0.03); Imm Gran Pct Auto 0.7 % (0.0-0.4); Lymphocytes Absolute Auto 1.5 X10*3/uL (1.2-4.9); Lymphocytes Percent Auto 9.1 % (20-40); Mean Corpuscular HGB Conc 31.4 g/dl (31.0-35.0); Mean Corpuscular Hemoglobin 29.3 pg (27.0-33.0); Mean Corpuscular Volume 93.1 fL (80.0-98.0); Mean Platelet Volume 9.5 fL (9.4-12.3); Monocytes Percent Auto 6.1 % (2-11); Neutrophils Absolute Auto 13.5 x10*3/uL (2.0-8.3); Neutrophils Percent Auto 83.8 % (45-73); Platelet Count 201 X10*3/uL (160-400); Red Blood Count 3.35 X10*6/uL (4.20-5.50); Red Cell Distribution Width 15.1 % (11.0-16.0); White Blood Count 16.1 X10*3/uL (4.8-10.8)
[2024-03-19 19:53] LABS: VBG Base Excess -0.7 mmol/L; VBG HCO3 21 mmol/L (22-26); VBG pCO2 29 mmHg; VBG pH 7.47 (7.32-7.43); VBG pO2 51 mmHg
[2024-03-19 20:00] LABS: Lactic Acid 1.3 mmol/L (0.5-2.0)
[2024-03-19 20:04] LABS: Alanine Aminotransferase 11 U/L (0-31); Alkaline Phosphatase 98 U/L (39-117); Anion Gap 13 (12-20); Aspartate Amino Transferase 15 U/L (5-31); Bilirubin Total 0.4 mg/dL (0.0-1.0); Blood Urea Nitrogen 17 mg/dL (9-16); Calcium 8.7 mg/dL (8.4-10.2); Carbon Dioxide 22 mmol/L (22-29); Chloride 105 mmol/L (96-108); Creatinine Clr Calc Pharmacy 60.9; Estimated Glomerular Filt Rate 57; Glucose Random 135 mg/dL (60-115); Magnesium 1.8 mg/dL (1.6-2.6); Phosphorus 3.1 mg/dL (2.7-4.5); Potassium 3.7 mmol/L (3.3-5.1); Sodium 136 mmol/L (135-145); Total Protein 7.4 g/dL (6.5-8.0)
[2024-03-19] MEDS: DAPTOmycin 700 MG in 0.9 % Sodium Chloride 50 ML 105.25 MG IV (21:20)
[2024-03-19] MEDS: Nystatin Powder 15 GM BOTTLE 1 APPL TOPICAL (21:25)
--- NOTE | 2024-03-19 23:57 | PC.NURSE ---
Temperature 100.3 medicated with 2 tylenol po at 2337 cooling blanket shut off will continue to monitor.
[2024-03-20] VITALS (8 sets, daily range): BP systolic 100–133; BP diastolic 50–83; PULSE 81–98; RESP 18–20; TEMP 36.7–37.9; O2SAT 97–100
[2024-03-20] MEDS: Sodium Bicarbonate 8.4% 50 MEQ/50 ML SYRINGE IVPUSH (00:24)
[2024-03-20] MEDS: Albumin Human 25 % 100 ML IV ×2 (00:27→01:30)
[2024-03-20] MEDS: Lactated Ringers 1,000 ML 100 ML IVCONT ×2 (00:33→08:05)
--- NOTE | 2024-03-20 01:21 | PC.NURSE ---
temperature 99.0 rectally
[2024-03-20] MEDS: Levothyroxine Sodium 88 MCG TABLET PO (05:28)
--- NOTE | 2024-03-20 07:00 | CA_ITS ---
Transthoracic Echocardiogram Patient (Last, First, Middle): Michelle Stephens, Gender: Female Date of : 1955 Age: 69 Procedure Date: 03/20/2024 Procedure Type: Transthoracic Echocardiogram Location: [facility] Height: 167.64 cm Weight: 89.81 kg BSA: 1.99 m2 Heart Rate: 91 bpm BP: 100 / 50 mmHg Capper Machine Operator: TO Referring MD: Beto Quiles MD [employer] Ha[employer] Truck Driver: Sabino Bloom MD Symptoms: bateremia Study Quality: Adequate w contrast ECG Rhythm: Sinus Conclusions: - 1. No obvious vegetation seen on this study 2. Normal LV ejection fraction 60 65% 3. Normal cardiac valvular Dopplers 4. Small loculated pericardial effusion Findings Procedure Information Contrast agent, definity, is being given per protocol without apparent complications. Left Ventricle Normal left ventricular size, thickness, and systolic function. The visually estimated ejection fraction is between 60-65%. Spectral Doppler is indicative of a normal filling pattern. Right Ventricle The right ventricle was not well visualized. Atria The left atrium is normal in size. Interatrial shunt cannot be excluded. The right atrium was not well visualized. Aortic Valve The aortic valve structure and function is likely normal. There is no aortic valve stenosis. There is no aortic valve regurgitation. Mitral Valve Normal mitral valve structure and function. There is trace mitral valve regurgitation. There is no mitral valve stenosis. Pulmonic Valve The pulmonic valve is likely normal. Tricuspid Valve Likely normal tricuspid valve structure and function. Tricuspid regurgitation envelope is inadequate for calculation of right ventricular systolic pressure. Normal right atrial pressure. Great Vessels All visible segments of the aorta are normal in size. The pulmonary artery was not well visualized. Venous The inferior vena cava is normal in size and collapses greater than 50% with inspiration. Pericardium/Pleural There is a small loculated pericardial effusion overlying the left ventricle. Prior Study Comparison No prior study available for comparison. Measurements 2D Linear Measurements IVSd: 1.04 0.6-0.9/0.6-1.0 cm LVIDd: 4.91 3.9-5.3/4.2-5.9 cm LVIDd Index: 2.47 2.4-3.2/2.2-3.1 cm/m2 LVIDs: 3.33 2.0-3.6 cm LVPWd: 1.07 0.7-1.1 cm LA Diam: 3.40 2.7-3.8/3.0-4.0 cm LAIDs Index: 1.71 1.5-2.3 cm/m2 LV Mass: 236.68 67-162/88-224 g LV Mass Index: 118.94 43-95/49-115 g/m2 LVOT Diam: 2.20 3.0+(-)1.3 cm 2D Systolic Function EF 4C: 56.10 >55% EF 2C: 68.00 >55% EF BiP: 63.00 >55% Mitral Valve MV Pk E: 0.69 MV PK A: 0.60 MV Decel Time: 197.00 E/A: 1.20 E'Lateral: 6.74 E'Medial: 6.42 E/E' Med: 10.70 E/E' Lat: 10.20 PHT: 58.00 MVA PHT: 3.79 Decel [place]: 3.49 Aortic Valve AoV Pk Tre: 1.58 AoV Mn Tre: 1.02 AoV VTI: 0.27 AoV Pk Grad: 10.00 Aov Mn Grad: 5.00 MUKUND Cont.VTI: 2.51 LVOT LVOT Pk Tre: 1.07 LVOT Mn Tre: 0.66 LVOT VTI: 0.18 LVOT Pk Grad: 5.00 LVOT Mn Grad: 2.00 LVOT Diam: 2.20 LVOT Area: 3.80 Diastolic Function MV Pk E: 0.69 MV Pk A: 0.60 E/A: 1.20 E'Medial: 6.42 E/E' Med: 10.70 E' Laterial: 6.74 E/E' Lat: 10.20 Right Ventricle TAPSE (mm): 17.70 TVS' Tre: 13.30 Tricuspid Valve RA Press: 3.00 Great Vessels Aorta Sinus of Valsalva: 3.42 2.0-3.5 cm Ao Asc: 3.50 2.1-3.4 cm Updated in Other Vendor System with Status of Final Sabino Bloom MD electronically signed on 03/20/2024 4:21:34 PM with status of Final
[2024-03-20 07:06] LABS: Creatinine Clr Calc Pharmacy 79.9; Estimated Glomerular Filt Rate > 60
[2024-03-20] MEDS: Multivitamin TABLET 1 TAB PO (08:06)
[2024-03-20] MEDS: Ascorbic Acid 500 MG TABLET 1000 MG PO ×2 (08:06→20:26)
[2024-03-20] MEDS: Acetaminophen 325 MG TABLET 650 MG PO ×3 (08:06→22:30)
[2024-03-20] MEDS: modafiniL 100 MG TABLET 200 MG PO (08:06)
[2024-03-20] MEDS: Cholecalciferol (Vitamin D3) 25 MCG TABLET 50 MCG PO (08:06)
[2024-03-20] MEDS: 0.9 % Sodium Chloride Flush 3 ML SYRINGE IVFLUSH ×3 (08:07→20:30)
[2024-03-20] MEDS: Rivaroxaban 10 MG TABLET PO (08:07)
--- NOTE | 2024-03-20 09:05 | P.CDIM_ITS ---
PROVIDER RESPONSE TEXT: To clarify, the appropriate diagnosis supported by the clinical indicators: Deep tissue Injury coccyx: DTI QUERY TEXT: PHYSICIAN'S DOCUMENTATION REQUEST Date of Query: 03/20/2024 05:17 AM EDT Patient Name: Michelle Stephens Admit Date: 03/18/2024 Dear Beto Quiles MD, A review of the medical record indicates additional documentation may be needed. Please review below and update the documentation accordingly. Clinical Indicators: Wound care assessment - DTI coccyx present on admission Off load pressure and Triad to protect from friction and moisture. Based on the above, could you please provide further information regarding the ulcer/wound/injury: Deep tissue Injury coccyx possible, suspected, probable Other (explain) Clinically unable to determine (explain) Thank you, Vanesa Noguera, CCS, CDIS Use of terms such as suspected, likely, concern for, or probable (associated with a specific diagnosi s that is being evaluated, monitored, or treated as if it exists) are acceptable and can be coded in the inpatient se tting, when documented at the time of discharge. Please use your independent medical judgment in providing your response. THIS QUERY IS PART OF THE PERMANENT MEDICAL RECORD
[2024-03-20] MEDS: Furosemide 40 MG TABLET PO (09:39)
[2024-03-20] MEDS: Baclofen 20 MG TABLET PO ×3 (09:39→20:26)
--- NOTE | 2024-03-20 16:48 | P.PNIM_ITS ---
Subjective Subjective Date of Service: 03/20/24 Interval History: Acute pyelonephritis with severe sepsis,bacteremia Review of Systems fevers improving no new c/o Physical Exam 2 Vital Signs: Vital Signs: Last Vital Signs Temp 98.2 F 03/20/24 16:00 Pulse 91 03/20/24 16:00 Resp 19 03/20/24 16:00 BP 100/50 L 03/20/24 16:00 Pulse Ox 100 03/20/24 16:00 O2 Del Method Nasal Cannula 03/20/24 16:00 O2 Flow Rate 2 03/20/24 16:00 BMI result Body Mass Index 32.1 Appearance: Alert.? Oriented. but feels some what confused cvs: rrr, [id number] . res: clear to auscultation ,no rhonchii or wheezing abd: no rebound or guarding ,nt, bs present. Gu: no CVA Tenderness . ext pulses present , no cyanosis . neuro: axo3 , nonfocal. Objective Data Active Medications Acetaminophen (Acetaminophen 325 Mg Tablet) 650 mg PO Q6H PRN PRN Reason: Pain, Mild (Pain Scale 1-3), fever or headache Last Admin: 03/20/24 15:13 Dose: 650 mg Documented By: HAL Ascorbic Acid (Ascorbic Acid 500 Mg Tablet) 1,000 mg PO BID [facility] Last Admin: 03/20/24 08:06 Dose: 1,000 mg Documented By: HAL Baclofen (Baclofen 20 Mg Tablet) 20 mg PO TID [facility] Last Admin: 03/20/24 15:13 Dose: 20 mg Documented By: HAL Calcium Carbonate (Calcium Carbonate 750 Mg Tab.Chew) 750 mg PO Q4H PRN PRN Reason: Heartburn Docusate Sodium (Docusate Sodium 100 Mg Capsule) 100 mg PO BEDTIME PRN PRN Reason: Constipation Furosemide (Furosemide 40 Mg Tablet) 40 mg PO DAILY [facility]; Protocol Last Admin: 03/20/24 09:39 Dose: 40 mg Documented By: HAL Gabapentin (Gabapentin 300 Mg Capsule) 300 mg PO TID [facility] Last Admin: 03/19/24 14:38 Dose: 300 mg Documented By: LOKESH Daptomycin 700 mg/ Sodium (Chloride) 64 mls @ 105.254 mls/hr IV Q24H [facility] Last Infusion: 03/19/24 21:57 Dose: Infused Documented By: MXAWELL Levothyroxine Sodium (Levothyroxine Sodium 88 Mcg Tablet) 88 mcg PO DAILY@0600 [facility] Last Admin: 03/20/24 05:28 Dose: 88 mcg Documented By: MAXWELL Lisinopril (Lisinopril 5 Mg Tablet) 5 mg PO DAILY [facility]; Protocol Last Admin: 03/19/24 08:39 Dose: 5 mg Documented By: LOKESH Magnesium Hydroxide (Milk Of Magnesia 30 Ml Oral.Susp) 30 ml PO DAILY PRN PRN Reason: Constipation Melatonin (Melatonin 3 Mg Tablet) 6 mg PO BEDTIME PRN PRN Reason: Insomnia Modafinil (Modafinil 100 Mg Tablet) 200 mg PO BID [facility] Last Admin: 03/20/24 08:06 Dose: 200 mg Documented By: HAL Multivitamins/Vitamin C (Multivitamin Tablet) 1 tab PO DAILY [facility] Last Admin: 03/20/24 08:06 Dose: 1 tab Documented By: HAL Nystatin (Nystatin Powder 15 Gm Bottle) 1 appl TOPICAL BID [facility]; Protocol Last Admin: 03/20/24 08:07 Dose: Not Given Documented By: HAL Non-Admin Reason: Patient Refused Ondansetron HCl (Ondansetron Hcl 4 Mg/2 Ml Vial) 4 mg IVPUSH Q8H PRN PRN Reason: Nausea and Vomiting Last Admin: 03/19/24 08:38 Dose: 4 mg Documented By: LOKESH Rivaroxaban (Rivaroxaban 10 Mg Tablet) 10 mg PO DAILY [facility] Last Admin: 03/20/24 08:07 Dose: 10 mg Documented By: HAL Sodium Chloride (0.9 % Sodium Chloride Flush 3 Ml Syringe) 3 ml IVFLUSH QSHIFT [facility] Last Admin: 03/20/24 15:14 Dose: 3 ml Documented By: HAL Vitamin D (Cholecalciferol (Vitamin D3) 25 Mcg Tablet) 50 mcg PO DAILY [facility] Last Admin: 03/20/24 08:06 Dose: 50 mcg Documented By: HAL Labs 03/19/24 19:46 03/20/24 06:09 Labs: Laboratory Results - last 24 hr 03/19/24 03/19/24 03/19/24 19:45 19:46 19:47 MCV 93.1 MCH 29.3 MCHC 31.4 RDW 15.1 Plt Count 201 MPV 9.5 Immature Gran % (Auto) 0.7 H Neut % (Auto) 83.8 H Lymph % (Auto) 9.1 L [place] % (Auto) 6.1 Eos % (Auto) 0.1 Baso % (Auto) 0.2 Lymph # (Auto) 1.5 [place] # (Auto) 1.0 Eos # (Auto) 0.0 Baso # (Auto) 0.0 Abs Immat Gran (auto) 0.11 H Absolute Neuts (auto) 13.5 H Absolute Nucleated RBC 0.000 Nucleated RBC % (auto) 0.0 Hold Purple Top SEE NOTE VBG pH 7.47 H VBG pCO2 29 VBG pO2 51 VBG HCO3 21 L VBG O2 Saturation 83.0 VBG Base Excess -0.7 Anion Gap 13 Estim Creat Clear Calc 60.9 Estimated GFR 57 Random Glucose 135 H Lactic Acid 1.3 Calcium 8.7 Phosphorus 3.1 Magnesium 1.8 Total Bilirubin 0.4 AST 15 ALT 11 Alkaline Phosphatase 98 Total Protein 7.4 Albumin 3.0 L Hold Yellow Top See Note 03/20/24 06:09 MCV MCH MCHC RDW Plt Count MPV Immature Gran % (Auto) Neut % (Auto) Lymph % (Auto) [place] % (Auto) Eos % (Auto) Baso % (Auto) Lymph # (Auto) [place] # (Auto) Eos # (Auto) Baso # (Auto) Abs Immat Gran (auto) Absolute Neuts (auto) Absolute Nucleated RBC Nucleated RBC % (auto) Hold Purple Top VBG pH VBG pCO2 VBG pO2 VBG HCO3 VBG O2 Saturation VBG Base Excess Anion Gap Estim Creat Clear Calc 79.9 Estimated GFR > 60 Random Glucose Lactic Acid Calcium Phosphorus Magnesium Total Bilirubin AST ALT Alkaline Phosphatase Total Protein Albumin Hold Yellow Top Microbiology Microbiology Results: Microbiology 03/18/24 Unknown Urine Culture - Preliminary Urine Catheterized - Straight Catheter Enterococcus/Streptococcus sp 03/18/24 12:29 Blood Culture - Preliminary Blood - Venous Enterococcus/Streptococcus sp 03/18/24 13:03 Blood Culture - Preliminary Blood - Venous Enterococcus/Streptococcus sp Assessment and Plan (1) Pyelonephritis: Status: Acute (2) Severe sepsis: Status: Acute Assessment and Plan: 69-year-old female with history of DVT/PE anticoagulated with Xarelto, history of [place] and cardiac arrest, trigeminal neuralgia, osteoporosis, Parkinson's, hypothyroidism, hypertension, CVA, bladder spasms, recurrent UTI admitted for further management of acute pyelonephritis and severe sepsis. Acute pyelonephritis with severe sepsis -UA with 2+ leukocytes, positive nitrites, 3+ blood, positive urinary sediment, no bacteria -leukocytosis ,tachycardia and fevers improving acute Lactic acidosis 3.0 improved with IV fluids. No septic shock or other end-organ damage initially started on cefepime and vancomycin (initiated 03/18),ID consult.- patient has bacteremia -eneterococcus/strep, discussed with ID -switched to daptomycin. Urology consult noted-continue IV daptomycin. No plans for surgical intervention/ureteral stent. follow CBC, cultures/senstivities. toxic metabolic encephalopathy sec to above. acute left-sided hydronephrosis -likely residual following stent removal acute kidney injury-mild -creatinine 0.95, baseline 0.6 Acute lactic acidosis seems to be resolved with hydration. -follow renal function/lytes history of DVT/PE -continue Xarelto hypothyroidism -continue thyroxine hypertension Hold blood pressure medication and Lasix currently trigeminal neuralgia Hold gabapentin MS Hold baclofen DVT prophylaxis-Xarelto Full code Ongoing hospitalization need acute pyelonephritis with severe sepsis requiring IV fluid resuscitation, IV antibiotics, and close monitoring of hemodynamics to prevent decompensation. Quality Stroke Does the patient have a stroke diagnosis?: No VTE Prior VTE?: Yes VTE Risk Level:: Medical - moderate - high VTE Device Contraindication: Treatment Not Indicated VTE Drug Contraindication: N/A - Med Ordered
[2024-03-20] MEDS: DAPTOmycin 700 MG in 0.9 % Sodium Chloride 50 ML 105.25 MG IV (20:22)
--- NOTE | 2024-03-20 22:14 | W.PM.IDCN ---
History of Present Illness Data of Consult Service Date: 03/19/24 Requesting physician: Beto Quiles Primary Care Provider: Kristen Jean Baptiste MD HPI Reason for consult: complicated pyelonephritis,severe sepsis She presents with confusion as well as fever for two days. Gram positive cocci are in blood. She has indwelling urinary catheter. Review of Systems Review of Systems: Yes Unobtainable due to mental condition PMFSH Past Medical History Medical History Wheelchair dependence Recurrent UTI (urinary tract infection) Sacral decubitus ulcer Pulmonary emboli Cardiac arrest History of trigeminal neuralgia COVID-19 vaccine series completed Osteoporosis Neurogenic urinary bladder disorder NENO (obstructive sleep apnea) Parkinson's variant of multiple system atrophy Thyroid disease History of neurogenic bladder History of MRSA infection Hx of lymphoma Arthritis Back pain Hx pulmonary embolism DVT (deep venous thrombosis) Anemia Hiatal hernia Tran catheter in place Bladder stones Multiple sclerosis CVA (cerebral vascular accident) Myocardial infarction HTN (hypertension) Painful bladder spasm Family History Family history: reviewed and not pertinent Surgical History Surgical History Hx of hysterectomy Hx of lumpectomy Hx of vitrectomy History of intraocular lens implant Hx of adenoidectomy Hx of tonsillectomy Hx of laminectomy History of cystoscopy History of biopsy of bladder History of bladder surgery H/O colonoscopy Social History Social History Household Members: None Housing: Apartment Are you a primary daycare provider to a significant other at home: No Do you presently have visiting nurse or other home services: Yes Patient Tobacco Use Status: Never used Tobacco Second Hand Smoke Exposure: No Use of substances other than those prescribed or required for medical reasons: No Currently Displaying Signs/Symptoms of Drug Intoxication Withdrawal: No Have you been hit, kicked, punched, or otherwise hurt by someone within the past year? If so, by whom?: No Do you feel safe in your current relationship?: No Current Relationship Is there a partner from a previous relationship who is making you feel unsafe now?: No Are you made to feel afraid or neglected: No Advance Directives: Yes Advance Directives Information Provided: Yes Advance Directives on File: No Advance Directives Date on File: 07/05/20 Do you have a plan to hurt others: No Plan Recently lost weight without trying: Unsure How much weight loss: Unsure Eating poorly because of decreased appetite: No Nutrition screen score: 4 Nutrition Risks: No Nutritional Risk Patient : No : No Poor oral hygiene: No service: No Current occupational status: disabled Meds Allergies Allergy/AdvReac Type Severity Reaction Status Date / Time mercury (elemental) Allergy Severe Anaphylaxis Verified 03/18/24 12:09 Penicillins Allergy Severe Hives Verified 03/18/24 12:09 bupropion [From Wellbutrin] Allergy Intermediate Hives Verified 03/18/24 12:09 Iodinated Contrast Media Allergy Intermediate Hives Verified 03/18/24 12:09 [IV Contrast Dye] morphine Allergy Intermediate Hives Verified 03/18/24 12:09 metoclopramide [From Reglan] AdvReac Intermediate Parkinson Verified 03/18/24 12:09 syndrome Active Medications: Current Medications Acetaminophen (Acetaminophen 325 Mg Tablet) 650 mg PO Q6H PRN PRN Reason: Pain, Mild (Pain Scale 1-3), fever or headache Last Admin: 03/20/24 15:13 Dose: 650 mg Ascorbic Acid (Ascorbic Acid 500 Mg Tablet) 1,000 mg PO BID [facility] Last Admin: 03/20/24 20:26 Dose: 1,000 mg Baclofen (Baclofen 20 Mg Tablet) 20 mg PO TID [facility] Last Admin: 03/20/24 20:26 Dose: 20 mg Calcium Carbonate (Calcium Carbonate 750 Mg Tab.Chew) 750 mg PO Q4H PRN PRN Reason: Heartburn Docusate Sodium (Docusate Sodium 100 Mg Capsule) 100 mg PO BEDTIME PRN PRN Reason: Constipation Furosemide (Furosemide 40 Mg Tablet) 40 mg PO DAILY [facility]; Protocol Last Admin: 03/20/24 09:39 Dose: 40 mg Gabapentin (Gabapentin 300 Mg Capsule) 300 mg PO TID [facility] Last Admin: 03/19/24 14:38 Dose: 300 mg Daptomycin 700 mg/ Sodium (Chloride) 64 mls @ 105.254 mls/hr IV Q24H [facility] Last Infusion: 03/20/24 21:23 Dose: Infused Levothyroxine Sodium (Levothyroxine Sodium 88 Mcg Tablet) 88 mcg PO DAILY@0600 [facility] Last Admin: 03/20/24 05:28 Dose: 88 mcg Lisinopril (Lisinopril 5 Mg Tablet) 5 mg PO DAILY [facility]; Protocol Last Admin: 03/19/24 08:39 Dose: 5 mg Magnesium Hydroxide (Milk Of Magnesia 30 Ml Oral.Susp) 30 ml PO DAILY PRN PRN Reason: Constipation Melatonin (Melatonin 3 Mg Tablet) 6 mg PO BEDTIME PRN PRN Reason: Insomnia Modafinil (Modafinil 100 Mg Tablet) 200 mg PO BID [facility] Last Admin: 03/20/24 20:29 Dose: Not Given Multivitamins/Vitamin C (Multivitamin Tablet) 1 tab PO DAILY [facility] Last Admin: 03/20/24 08:06 Dose: 1 tab Nystatin (Nystatin Powder 15 Gm Bottle) 1 appl TOPICAL BID [facility]; Protocol Last Admin: 03/20/24 20:30 Dose: Not Given Ondansetron HCl (Ondansetron Hcl 4 Mg/2 Ml Vial) 4 mg IVPUSH Q8H PRN PRN Reason: Nausea and Vomiting Last Admin: 03/19/24 08:38 Dose: 4 mg Rivaroxaban (Rivaroxaban 10 Mg Tablet) 10 mg PO DAILY [facility] Last Admin: 03/20/24 08:07 Dose: 10 mg Sodium Chloride (0.9 % Sodium Chloride Flush 3 Ml Syringe) 3 ml IVFLUSH QSHIFT [facility] Last Admin: 03/20/24 20:30 Dose: 3 ml Vitamin D (Cholecalciferol (Vitamin D3) 25 Mcg Tablet) 50 mcg PO DAILY [facility] Last Admin: 03/20/24 08:06 Dose: 50 mcg Home Medications ?Medication ?Instructions ?Recorded ?Confirmed ?Last Taken ?Type acetaminophen 500 mg capsule 500 mg PO QID 06/18/20 03/18/24 03/18/24 History furosemide 40 mg tablet 40 mg PO DAILY 06/18/20 03/18/24 03/18/24 History levothyroxine 88 mcg tablet 88 mcg PO DAILY@0600 06/18/20 03/18/24 03/18/24 History lisinopril 5 mg tablet 5 mg PO DAILY 06/18/20 03/18/24 03/18/24 History cholecalciferol (vitamin D3) 50 1 cap PO DAILY 02/13/22 03/18/24 03/18/24 History mcg (2,000 unit) capsule docusate sodium 100 mg capsule 100 mg PO BEDTIME PRN Constipation 11/14/22 03/18/24 Unknown History gabapentin 300 mg capsule 300 mg PO TID 07/12/23 03/18/24 03/18/24 History modafinil 200 mg tablet (Provigil) 200 mg PO BID 07/12/23 03/18/24 03/18/24 History baclofen 20 mg tablet 20 mg PO TID 03/18/24 03/18/24 03/18/24 History metronidazole 0.75 % topical cream 1 appl topical BID 03/18/24 03/18/24 03/18/24 History [id number] 1 tab PO DAILY 03/18/24 03/18/24 03/18/24 History tablet (Multivitamin 50 Plus tablet) rivaroxaban 10 mg tablet (Xarelto) 10 mg PO DAILY 03/18/24 03/18/24 03/18/24 History silver sulfadiazine 1 % topical 1 appl topical DAILY 03/18/24 03/18/24 03/18/24 History cream Physical Exam Vital Signs: Vital Signs: Last Vital Signs Temp 100.0 F 03/20/24 20:00 Pulse 95 03/20/24 20:00 Resp 20 03/20/24 20:00 BP 123/57 L 03/20/24 20:00 Pulse Ox 97 03/20/24 20:00 O2 Del Method Nasal Cannula 03/20/24 20:00 O2 Flow Rate 2 03/20/24 20:00 BMI result Body Mass Index 32.1 Const: General: cooperative HEENT: Head: Yes normal to inspection Face and sinus: Yes normal facial exam Mouth: Normal oral and palatal mucosa present Teeth and gingiva: dentition normal Eyes: General: appearance normal, both eyes and all related structures Pupils: Equal, round and reactive pupils present Resp: Effort & Inspection: normal respiratory effort Cardio: Rate: regular rate Rhythm: regular rhythm GI: Palpation (GI): Soft to palpation and nontender : General: Yes no CVA tenderness Back/Spine/Pelvis: Back: no CVA tenderness Skin: General skin exam: no rashes or lesions noted Neuro: General: moves all extremities Cranial nerves: Yes Equal, round and reactive pupils present Extrem: General: Yes normal to inspection Psych: Other: confusion Results Labs 03/19/24 19:46 03/20/24 06:09 Labs: BMP 03/20/24 06:09 Creatinine 0.74 Microbiology Microbiology Results: Microbiology 03/18/24 Unknown Urine Catheterized - Straight Catheter Urine Culture - Preliminary Enterococcus/Streptococcus sp 03/18/24 12:29 Blood - Venous Blood Culture - Preliminary Enterococcus/Streptococcus sp 03/18/24 13:03 Blood - Venous Blood Culture - Preliminary Enterococcus/Streptococcus sp Assessment and Plan (1) Neurogenic bladder: Status: Acute (2) Pyelonephritis: Status: Acute (3) Severe sepsis: Status: Acute Plan She is ill and has sepsis She has bacteremia,possible staph or enterococcus. She has most likely urinary source. Would stop Cefepime since gram positive cocci in blood. Would also give Daptomycin ,can switch from Vancomycin. Would check echo if not done. Would likely give four weeks IV antibiotics.
[2024-03-20] MEDS: Melatonin 3 MG TABLET 6 MG PO (22:30)
[2024-03-21] VITALS (7 sets, daily range): BP systolic 102–135; BP diastolic 56–67; PULSE 75–90; RESP 16–20; TEMP 36.6–38.1; O2SAT 95–99
[2024-03-21 06:06] LABS: Creatinine Clr Calc Pharmacy 93.9; Estimated Glomerular Filt Rate > 60
[2024-03-21] MEDS: Ascorbic Acid 500 MG TABLET 1000 MG PO ×2 (07:50→22:05)
[2024-03-21] MEDS: Cholecalciferol (Vitamin D3) 25 MCG TABLET 50 MCG PO (07:50)
[2024-03-21] MEDS: Levothyroxine Sodium 88 MCG TABLET PO (07:50)
[2024-03-21] MEDS: Furosemide 40 MG TABLET PO (07:50)
[2024-03-21] MEDS: Baclofen 20 MG TABLET PO ×3 (07:50→22:05)
[2024-03-21] MEDS: modafiniL 100 MG TABLET 200 MG PO (07:50)
[2024-03-21] MEDS: Rivaroxaban 10 MG TABLET PO (07:50)
[2024-03-21] MEDS: Multivitamin TABLET 1 TAB PO (07:50)
[2024-03-21] MEDS: Acetaminophen 325 MG TABLET 650 MG PO ×3 (07:51→22:06)
[2024-03-21] MEDS: 0.9 % Sodium Chloride Flush 3 ML SYRINGE IVFLUSH ×3 (07:52→22:08)
--- NOTE | 2024-03-21 15:24 | MHC.CM.PN ---
EMR REVIEWED, PER ID NOTE PT WILL NEED 4WKS IV ABX, LIKELY DAPTO, CM MET W/PT AND SPOKE W/FRIEND/HCP ELIECER WHO WILL ADMINISTER IV MEDS FOR PT, DEMETRIA DELANEYA UPDATED AND REFERRAL PLACED TO [facility] AND CM SPOKE TO LIAISON WHO WILL COME IN SUNDAY TO MEET W/PT AND DO A TEACH W/ELIECER., CM WILL CONT TO FOLLOW.
--- NOTE | 2024-03-21 16:09 | P.PNIM_ITS ---
Subjective Subjective Date of Service: 03/21/24 Interval History: Enterococcus bacteremia, UTI Review of Systems fevers improving no new c/o Physical Exam 2 Vital Signs: Vital Signs: Last Vital Signs Temp 97.8 F 03/21/24 15:44 Pulse 89 03/21/24 15:44 Resp 20 03/21/24 15:44 BP 118/58 L 03/21/24 15:44 Pulse Ox 98 03/21/24 15:44 O2 Del Method Nasal Cannula 03/21/24 15:44 O2 Flow Rate 2 03/21/24 15:44 BMI result Body Mass Index 32.1 Appearance: Alert.? Oriented. but feels some what confused cvs: rrr, [id number] . res: clear to auscultation ,no rhonchii or wheezing abd: no rebound or guarding ,nt, bs present. Gu: no CVA Tenderness . ext pulses present , no cyanosis . neuro: axo3 , nonfocal. Objective Data Active Medications Acetaminophen (Acetaminophen 325 Mg Tablet) 650 mg PO Q6H PRN PRN Reason: Pain, Mild (Pain Scale 1-3), fever or headache Last Admin: 03/21/24 15:02 Dose: 650 mg Documented By: HAL Ascorbic Acid (Ascorbic Acid 500 Mg Tablet) 1,000 mg PO BID [facility] Last Admin: 03/21/24 07:50 Dose: 1,000 mg Documented By: HAL Baclofen (Baclofen 20 Mg Tablet) 20 mg PO TID [facility] Last Admin: 03/21/24 15:02 Dose: 20 mg Documented By: HAL Calcium Carbonate (Calcium Carbonate 750 Mg Tab.Chew) 750 mg PO Q4H PRN PRN Reason: Heartburn Docusate Sodium (Docusate Sodium 100 Mg Capsule) 100 mg PO BEDTIME PRN PRN Reason: Constipation Furosemide (Furosemide 40 Mg Tablet) 40 mg PO DAILY [facility]; Protocol Last Admin: 03/21/24 07:50 Dose: 40 mg Documented By: HAL Gabapentin (Gabapentin 300 Mg Capsule) 300 mg PO TID [facility] Last Admin: 03/19/24 14:38 Dose: 300 mg Documented By: LOKESH Daptomycin 700 mg/ Sodium (Chloride) 64 mls @ 105.254 mls/hr IV Q24H [facility] Last Infusion: 03/20/24 21:23 Dose: Infused Documented By: RAMSEY Levothyroxine Sodium (Levothyroxine Sodium 88 Mcg Tablet) 88 mcg PO DAILY@0600 [facility] Last Admin: 03/21/24 07:50 Dose: 88 mcg Documented By: HAL Lisinopril (Lisinopril 5 Mg Tablet) 5 mg PO DAILY [facility]; Protocol Last Admin: 03/19/24 08:39 Dose: 5 mg Documented By: LOKESH Magnesium Hydroxide (Milk Of Magnesia 30 Ml Oral.Susp) 30 ml PO DAILY PRN PRN Reason: Constipation Melatonin (Melatonin 3 Mg Tablet) 6 mg PO BEDTIME PRN PRN Reason: Insomnia Last Admin: 03/20/24 22:30 Dose: 6 mg Documented By: RAMSEY Modafinil (Modafinil 100 Mg Tablet) 200 mg PO BID [facility] Last Admin: 03/21/24 07:50 Dose: 200 mg Documented By: HAL Multivitamins/Vitamin C (Multivitamin Tablet) 1 tab PO DAILY [facility] Last Admin: 03/21/24 07:50 Dose: 1 tab Documented By: HAL Nystatin (Nystatin Powder 15 Gm Bottle) 1 appl TOPICAL BID [facility]; Protocol Last Admin: 03/21/24 07:52 Dose: Not Given Documented By: HAL Non-Admin Reason: Patient Refused Ondansetron HCl (Ondansetron Hcl 4 Mg/2 Ml Vial) 4 mg IVPUSH Q8H PRN PRN Reason: Nausea and Vomiting Last Admin: 03/19/24 08:38 Dose: 4 mg Documented By: LOKESH Rivaroxaban (Rivaroxaban 10 Mg Tablet) 10 mg PO DAILY [facility] Last Admin: 03/21/24 07:50 Dose: 10 mg Documented By: HAL Sodium Chloride (0.9 % Sodium Chloride Flush 3 Ml Syringe) [facility] Last Admin: 03/21/24 15:02 Dose: 3 ml Documented By: HAL Vitamin D (Cholecalciferol (Vitamin D3) 25 Mcg Tablet) 50 mcg PO DAILY [facility] Last Admin: 03/21/24 07:50 Dose: 50 mcg Documented By: HAL Labs 03/19/24 19:46 03/21/24 05:26 Labs: Laboratory Results - last 24 hr 03/18/24 03/21/24 13:03 05:26 Anion Gap 15 Estim Creat Clear Calc 61.5 93.9 Estimated GFR 58 > 60 Random Glucose 177 H Calcium 9.9 Total Bilirubin 0.5 AST 12 ALT 12 Alkaline Phosphatase 110 Total Protein 9.5 H Albumin 3.9 Microbiology Microbiology Results: Microbiology 03/18/24 13:03 Blood Culture - Final Blood - Venous Enterococcus faecalis 03/18/24 12:29 Blood Culture - Final Blood - Venous Enterococcus faecalis 03/18/24 Unknown Urine Culture - Final Urine Catheterized - Straight Catheter Enterococcus faecalis Assessment and Plan (1) Pyelonephritis: Status: Acute (2) Severe sepsis: Status: Acute Assessment and Plan: 69-year-old female with history of DVT/PE anticoagulated with Xarelto, history of [place] and cardiac arrest, trigeminal neuralgia, osteoporosis, Parkinson's, hypothyroidism, hypertension, CVA, bladder spasms, recurrent UTI admitted for further management of acute pyelonephritis and severe sepsis. Acute pyelonephritis with severe sepsis -UA with 2+ leukocytes, positive nitrites, 3+ blood, positive urinary sediment, no bacteria -leukocytosis ,tachycardia and fevers improving acute Lactic acidosis 3.0 improved with IV fluids. No septic shock or other end-organ damage initially started on cefepime and vancomycin (initiated 03/18),ID consult.- patient has bacteremia -eneterococcus/strep-senstive to vanco/ampicillin , patient is on daptomycin. Urology consult noted- No plans for surgical intervention/ureteral stent. follow CBC, cultures/senstivities. toxic metabolic encephalopathy sec to above. acute left-sided hydronephrosis -likely residual following stent removal acute kidney injury-mild -creatinine 0.95, baseline 0.6 Acute lactic acidosis seems to be resolved with hydration. -follow renal function/lytes history of DVT/PE -continue Xarelto hypothyroidism -continue thyroxine hypertension Hold blood pressure medication and Lasix currently trigeminal neuralgia Hold gabapentin MS Hold baclofen DVT prophylaxis-Xarelto Full code Ongoing hospitalization need acute pyelonephritis with severe sepsis requiring IV fluid resuscitation, IV antibiotics, and close monitoring of hemodynamics to prevent decompensation. Quality Stroke Does the patient have a stroke diagnosis?: No VTE Prior VTE?: Yes VTE Risk Level:: Medical - moderate - high VTE Device Contraindication: Treatment Not Indicated VTE Drug Contraindication: N/A - Med Ordered
[2024-03-21] MEDS: DAPTOmycin 700 MG in 0.9 % Sodium Chloride 50 ML 105.25 MG IV (22:04)
[2024-03-22] VITALS (8 sets, daily range): BP systolic 101–142; BP diastolic 51–67; PULSE 70–95; RESP 18; TEMP 36.1–37.9; O2SAT 92–99
[2024-03-22] MEDS: Levothyroxine Sodium 88 MCG TABLET PO (06:03)
[2024-03-22 07:09] LABS: Creatinine Clr Calc Pharmacy 89.7; Estimated Glomerular Filt Rate > 60
[2024-03-22] MEDS: Furosemide 40 MG TABLET PO (08:54)
[2024-03-22] MEDS: Multivitamin TABLET 1 TAB PO (08:54)
[2024-03-22] MEDS: Rivaroxaban 10 MG TABLET PO (08:54)
[2024-03-22] MEDS: Ascorbic Acid 500 MG TABLET 1000 MG PO ×2 (08:54→20:17)
[2024-03-22] MEDS: modafiniL 100 MG TABLET 200 MG PO (08:54)
[2024-03-22] MEDS: Cholecalciferol (Vitamin D3) 25 MCG TABLET 50 MCG PO (08:55)
[2024-03-22] MEDS: Baclofen 20 MG TABLET PO ×3 (08:55→20:17)
[2024-03-22] MEDS: 0.9 % Sodium Chloride Flush 3 ML SYRINGE IVFLUSH ×2 (08:56→16:30)
--- NOTE | 2024-03-22 14:25 | HO.PM.IMPN ---
Subjective Subjective Date of Service: 03/22/24 Interval History: Enterococcus bacteremia Review of Systems Has low-grade fever Otherwise denying any new symptoms, seems more improving Physical Exam Vital Signs: Vital Signs: Last Vital Signs Temp 98.2 F 03/22/24 12:00 Pulse 95 03/22/24 12:00 Resp 18 03/22/24 12:00 BP 138/62 03/22/24 12:00 Pulse Ox 97 03/22/24 12:00 O2 Del Method Room Air 03/22/24 12:00 O2 Flow Rate 2 03/22/24 03:51 BMI result Body Mass Index 32.1 Appearance: Alert.? Oriented. but feels some what confused cvs: rrr, [id number] . res: clear to auscultation ,no rhonchii or wheezing abd: no rebound or guarding ,nt, bs present. Gu: no CVA Tenderness . ext pulses present , no cyanosis . neuro: axo3 , nonfocal. Objective Data Active Medications Acetaminophen (Acetaminophen 325 Mg Tablet) 650 mg PO Q6H PRN PRN Reason: Pain, Mild (Pain Scale 1-3), fever or headache Last Admin: 03/21/24 22:06 Dose: 650 mg Documented By: DELON Ascorbic Acid (Ascorbic Acid 500 Mg Tablet) 1,000 mg PO BID [facility] Last Admin: 03/22/24 08:54 Dose: 1,000 mg Documented By: KOKO Baclofen (Baclofen 20 Mg Tablet) 20 mg PO TID [facility] Last Admin: 03/22/24 08:55 Dose: 20 mg Documented By: KOKO Calcium Carbonate (Calcium Carbonate 750 Mg Tab.Chew) 750 mg PO Q4H PRN PRN Reason: Heartburn Docusate Sodium (Docusate Sodium 100 Mg Capsule) 100 mg PO BEDTIME PRN PRN Reason: Constipation Furosemide (Furosemide 40 Mg Tablet) 40 mg PO DAILY [facility]; Protocol Last Admin: 03/22/24 08:54 Dose: 40 mg Documented By: KOKO Gabapentin (Gabapentin 300 Mg Capsule) 300 mg PO TID [facility] Last Admin: 03/19/24 14:38 Dose: 300 mg Documented By: LOKESH Daptomycin 700 mg/ Sodium (Chloride) 64 mls @ 105.254 mls/hr IV Q24H [facility] Last Infusion: 03/21/24 22:45 Dose: Infused Documented By: DELON Levothyroxine Sodium (Levothyroxine Sodium 88 Mcg Tablet) 88 mcg PO DAILY@0600 [facility] Last Admin: 03/22/24 06:03 Dose: 88 mcg Documented By: DELON Lisinopril (Lisinopril 5 Mg Tablet) 5 mg PO DAILY [facility]; Protocol Last Admin: 03/19/24 08:39 Dose: 5 mg Documented By: LOKESH Magnesium Hydroxide (Milk Of Magnesia 30 Ml Oral.Susp) 30 ml PO DAILY PRN PRN Reason: Constipation Melatonin (Melatonin 3 Mg Tablet) 6 mg PO BEDTIME PRN PRN Reason: Insomnia Last Admin: 03/20/24 22:30 Dose: 6 mg Documented By: RAMSEY Modafinil (Modafinil 100 Mg Tablet) 200 mg PO BID [facility] Last Admin: 03/22/24 08:54 Dose: 200 mg Documented By: KOKO Multivitamins/Vitamin C (Multivitamin Tablet) 1 tab PO DAILY [facility] Last Admin: 03/22/24 08:54 Dose: 1 tab Documented By: KOKO Nystatin (Nystatin Powder 15 Gm Bottle) 1 appl TOPICAL BID [facility]; Protocol Last Admin: 03/22/24 10:46 Dose: Not Given Documented By: SAIGE Non-Admin Reason: Patient Refused Ondansetron HCl (Ondansetron Hcl 4 Mg/2 Ml Vial) 4 mg IVPUSH Q8H PRN PRN Reason: Nausea and Vomiting Last Admin: 03/19/24 08:38 Dose: 4 mg Documented By: LOKESH Rivaroxaban (Rivaroxaban 10 Mg Tablet) 10 mg PO DAILY [facility] Last Admin: 03/22/24 08:54 Dose: 10 mg Documented By: KOKO Sodium Chloride (0.9 % Sodium Chloride Flush 3 Ml Syringe) 3 ml IVFLUSH QSHIFT [facility] Last Admin: 03/22/24 08:56 Dose: 3 ml Documented By: KOKO Vitamin D (Cholecalciferol (Vitamin D3) 25 Mcg Tablet) 50 mcg PO DAILY [facility] Last Admin: 03/22/24 08:55 Dose: 50 mcg Documented By: KOKO Labs 03/19/24 19:46 08/10/24 06:34 Labs: Laboratory Results - last 24 hr 03/22/24 06:34 Hold Purple Top SEE NOTE Estim Creat Clear Calc 89.7 Estimated GFR > 60 Microbiology Microbiology Results: Microbiology 03/21/24 10:28 Blood Culture - Preliminary Blood - Venous No growth after 24 hours. 03/21/24 10:28 Blood Culture - Preliminary Blood - Venous Prelim: GPC Gram Stain only Assessment and Plan (1) Pyelonephritis: Status: Acute (2) Severe sepsis: Status: Acute Assessment and Plan: 69-year-old female with history of DVT/PE anticoagulated with Xarelto, history of [place] and cardiac arrest, trigeminal neuralgia, osteoporosis, Parkinson's, hypothyroidism, hypertension, CVA, bladder spasms, recurrent UTI admitted for further management of acute pyelonephritis and severe sepsis. Acute pyelonephritis with severe sepsis -UA with 2+ leukocytes, positive nitrites, 3+ blood, positive urinary sediment, no bacteria -leukocytosis ,tachycardia and fevers improving acute Lactic acidosis 3.0 improved with IV fluids. No septic shock or other end-organ damage initially started on cefepime and vancomycin (initiated 03/18),ID consult.-patient has bacteremia -eneterococcus/strep-senstive to vanco/ampicillin ,repeat blood culture 08/14 : gram positive cocci in chains. continue daptomycin. Urology consult noted- No plans for surgical intervention/ureteral stent. follow CBC, cultures/senstivities. toxic metabolic encephalopathy sec to above. acute left-sided hydronephrosis -likely residual following stent removal acute kidney injury-mild -creatinine 0.95, baseline 0.6 Acute lactic acidosis seems to be resolved with hydration. -follow renal function/lytes history of DVT/PE -continue Xarelto hypothyroidism -continue thyroxine hypertension Hold blood pressure medication and Lasix currently trigeminal neuralgia Hold gabapentin MS Hold baclofen DVT prophylaxis-Xarelto Full code Ongoing hospitalization need acute pyelonephritis with severe sepsis requiring IV fluid resuscitation, IV antibiotics, and close monitoring of hemodynamics to prevent decompensation. Quality Stroke Does the patient have a stroke diagnosis?: No VTE Prior VTE?: Yes VTE Risk Level:: Medical - moderate - high VTE Device Contraindication: Treatment Not Indicated VTE Drug Contraindication: N/A - Med Ordered
[2024-03-22] MEDS: Acetaminophen 325 MG TABLET 650 MG PO (16:23)
[2024-03-22] MEDS: DAPTOmycin 700 MG in 0.9 % Sodium Chloride 50 ML 105.25 MG IV (19:12)
[2024-03-23] VITALS (7 sets, daily range): BP systolic 117–149; BP diastolic 58–73; PULSE 81–91; RESP 14–18; TEMP 36.1–36.8; O2SAT 94–97
[2024-03-23] MEDS: 0.9 % Sodium Chloride Flush 3 ML SYRINGE IVFLUSH ×4 (00:04→20:45)
[2024-03-23] MEDS: Levothyroxine Sodium 88 MCG TABLET PO (06:57)
[2024-03-23 07:27] LABS: Anion Gap 11 (12-20); Blood Urea Nitrogen 9 mg/dL (9-16); Calcium 9.4 mg/dL (8.4-10.2); Carbon Dioxide 29 mmol/L (22-29); Chloride 104 mmol/L (96-108); Estimated Glomerular Filt Rate > 60; Glucose Random 140 mg/dL (60-115); Potassium 3.2 mmol/L (3.3-5.1); Sodium 141 mmol/L (135-145)
[2024-03-23 07:33] LABS: Hematocrit 30.2 % (37.0-47.0); Hemoglobin 9.6 g/dl (12.0-16.0); Mean Corpuscular HGB Conc 31.8 g/dl (31.0-35.0); Mean Corpuscular Hemoglobin 29.4 pg (27.0-33.0); Mean Corpuscular Volume 92.6 fL (80.0-98.0); Mean Platelet Volume 9.8 fL (9.4-12.3); Platelet Count 320 X10*3/uL (160-400); Red Blood Count 3.26 X10*6/uL (4.20-5.50); Red Cell Distribution Width 14.9 % (11.0-16.0); White Blood Count 10.4 X10*3/uL (4.8-10.8)
[2024-03-23 07:48] LABS: Atypical Lymph Absolute Manual 0.2 x10*3/uL; Atypical Lymphs Percent Manual 2 % (0-6); Band Neutrophils Percent 1 % (3-5); Basophils Abs Manual 0.1 X10*3/uL (0.0-0.2); Basophils Percent Manual 1 % (0-2); Eosinophils Absolute Manual 0.2 X10*3/uL (0.0-0.4); Eosinophils Percent Manual 2 % (0-4); Lymphocytes Absolute Manual 2.3 X10*3/uL (1.2-4.9); Lymphocytes Percent Manual 22 % (20-40); Metamyelocytes Absolute 0.1 X10*3/uL; Metamyelocytes Percent 1 %; Monocytes Absolute Manual 0.1 X10*3/uL (0.1-1.2); Monocytes Percent Manual 1 % (2-11); Neutrophils Absolute Manual 7.4 X10*3/uL (2.0-8.3); Neutrophils Percent Manual 70 % (45-73); Platelet Estimate NORMAL (NORMAL); Platelet Morphology Comment NORMAL; RBC Morphology NORMAL
[2024-03-23] MEDS: Multivitamin TABLET 1 TAB PO (09:04)
[2024-03-23] MEDS: Baclofen 20 MG TABLET PO ×3 (09:04→20:49)
[2024-03-23] MEDS: modafiniL 100 MG TABLET 200 MG PO (09:04)
[2024-03-23] MEDS: Rivaroxaban 10 MG TABLET PO (09:04)
[2024-03-23] MEDS: Furosemide 40 MG TABLET PO (09:04)
[2024-03-23] MEDS: Cholecalciferol (Vitamin D3) 25 MCG TABLET 50 MCG PO (09:04)
[2024-03-23] MEDS: Ascorbic Acid 500 MG TABLET 1000 MG PO (09:04)
[2024-03-23] MEDS: Potassium Chloride ER 20 MEQ TAB.ER.PRT PO (09:05)
--- NOTE | 2024-03-23 12:25 | HO.PM.IMPN ---
Subjective Subjective Date of Service: 03/23/24 Interval History: Enterococcus bacteremia Review of Systems Leukocytosis resolved, no fever No other new complaints Blood culture repeated shows Gram-positive cocci Physical Exam Vital Signs: Vital Signs: Last Vital Signs Temp 98.1 F 03/23/24 11:57 Pulse 87 03/23/24 11:57 Resp 18 03/23/24 11:57 BP 142/68 H 03/23/24 11:57 Pulse Ox 95 03/23/24 11:57 O2 Del Method Room Air 03/23/24 11:57 O2 Flow Rate 2 03/22/24 03:51 BMI result Body Mass Index 32.1 Appearance: Alert.? Oriented-seems at baseline cvs: rrr, [id number] . res: clear to auscultation ,no rhonchii or wheezing abd: no rebound or guarding ,nt, bs present. Gu: no CVA Tenderness . ext pulses present , no cyanosis . neuro: axo3 , at baseline. Objective Data Active Medications Acetaminophen (Acetaminophen 325 Mg Tablet) 650 mg PO Q6H PRN PRN Reason: Pain, Mild (Pain Scale 1-3), fever or headache Last Admin: 03/22/24 16:23 Dose: 650 mg Documented By: ALEX Ascorbic Acid (Ascorbic Acid 500 Mg Tablet) 1,000 mg PO BID [facility] Last Admin: 03/23/24 09:04 Dose: 1,000 mg Documented By: GAUTAM Baclofen (Baclofen 20 Mg Tablet) 20 mg PO TID [facility] Last Admin: 03/23/24 09:04 Dose: 20 mg Documented By: GAUTAM Calcium Carbonate (Calcium Carbonate 750 Mg Tab.Chew) 750 mg PO Q4H PRN PRN Reason: Heartburn Docusate Sodium (Docusate Sodium 100 Mg Capsule) 100 mg PO BEDTIME PRN PRN Reason: Constipation Furosemide (Furosemide 40 Mg Tablet) 40 mg PO DAILY [facility]; Protocol Last Admin: 03/23/24 09:04 Dose: 40 mg Documented By: GAUTAM Gabapentin (Gabapentin 300 Mg Capsule) 300 mg PO TID [facility] Last Admin: 03/19/24 14:38 Dose: 300 mg Documented By: LOKESH Daptomycin 700 mg/ Sodium (Chloride) 64 mls @ 105.254 mls/hr IV Q24H [facility] Last Infusion: 03/22/24 20:21 Dose: Infused Documented By: ALEX Levothyroxine Sodium (Levothyroxine Sodium 88 Mcg Tablet) 88 mcg PO DAILY@0600 [facility] Last Admin: 03/23/24 06:57 Dose: 88 mcg Documented By: CRSITINA Lisinopril (Lisinopril 5 Mg Tablet) 5 mg PO DAILY [facility]; Protocol Last Admin: 03/19/24 08:39 Dose: 5 mg Documented By: LOKESH Magnesium Hydroxide (Milk Of Magnesia 30 Ml Oral.Susp) 30 ml PO DAILY PRN PRN Reason: Constipation Melatonin (Melatonin 3 Mg Tablet) 6 mg PO BEDTIME PRN PRN Reason: Insomnia Last Admin: 03/20/24 22:30 Dose: 6 mg Documented By: RAMSEY Modafinil (Modafinil 100 Mg Tablet) 200 mg PO BID [facility] Last Admin: 03/23/24 09:04 Dose: 200 mg Documented By: GAUTAM Multivitamins/Vitamin C (Multivitamin Tablet) 1 tab PO DAILY [facility] Last Admin: 03/23/24 09:04 Dose: 1 tab Documented By: GAUTAM Nystatin (Nystatin Powder 15 Gm Bottle) 1 appl TOPICAL BID [facility]; Protocol Last Admin: 03/23/24 09:10 Dose: Not Given Documented By: GAUTAM Non-Admin Reason: Patient Refused Ondansetron HCl (Ondansetron Hcl 4 Mg/2 Ml Vial) 4 mg IVPUSH Q8H PRN PRN Reason: Nausea and Vomiting Last Admin: 03/19/24 08:38 Dose: 4 mg Documented By: LOKESH Rivaroxaban (Rivaroxaban 10 Mg Tablet) 10 mg PO DAILY [facility] Last Admin: 03/23/24 09:04 Dose: 10 mg Documented By: GAUTAM Sodium Chloride (0.9 % Sodium Chloride Flush 3 Ml Syringe) 3 ml IVFLUSH QSHIFT [facility] Last Admin: 03/23/24 09:13 Dose: 3 ml Documented By: GAUTAM Vitamin D (Cholecalciferol (Vitamin D3) 25 Mcg Tablet) 50 mcg PO DAILY [facility] Last Admin: 03/23/24 09:04 Dose: 50 mcg Documented By: GAUTAM Labs 03/23/24 07:01 03/23/24 07:01 Labs: Laboratory Results - last 24 hr 03/23/24 07:01 MCV 92.6 MCH 29.4 MCHC 31.8 RDW 14.9 Plt Count 320 D MPV 9.8 Immature Gran % (Auto) Cancelled Neut % (Auto) Cancelled Lymph % (Auto) Cancelled [place] % (Auto) Cancelled Eos % (Auto) Cancelled Baso % (Auto) Cancelled Lymph # (Auto) Cancelled [place] # (Auto) Cancelled Eos # (Auto) Cancelled Baso # (Auto) Cancelled Abs Immat Gran (auto) Cancelled Absolute Neuts (auto) Cancelled Absolute Nucleated RBC 0.000 Nucleated RBC % (auto) 0.0 Neutrophils % (Manual) 70 Band Neutrophils % 1 L Lymphocytes % (Manual) 22 Atypical Lymphs % (Man) 2 Monocytes % (Manual) 1 L Eosinophils % (Manual) 2 Basophils % (Manual) 1 Metamyelocytes % 1 Abs Neuts (Manual) 7.4 Lymphocytes # (Manual) 2.3 Atyp Lymphs # (Manual) 0.2 Monocytes # (Manual) 0.1 Eosinophils # (Manual) 0.2 Basophils # (Manual) 0.1 Metamyelocytes # 0.1 Platelet Estimate NORMAL Plt Morphology Comment NORMAL RBC Morphology NORMAL Anion Gap 11 L Estim Creat Clear Calc 87.0 Estimated GFR > 60 Random Glucose 140 H Calcium 9.4 D Microbiology Microbiology Results: Microbiology 03/21/24 10:28 Blood Culture - Preliminary Blood - Venous Enterococcus/Streptococcus sp 03/21/24 10:28 Blood Culture - Preliminary Blood - Venous Enterococcus/Streptococcus sp Assessment and Plan (1) Pyelonephritis: Status: Acute (2) Severe sepsis: Status: Acute Assessment and Plan: 69-year-old female with history of DVT/PE anticoagulated with Xarelto, history of [place] and cardiac arrest, trigeminal neuralgia, osteoporosis, Parkinson's, hypothyroidism, hypertension, CVA, bladder spasms, recurrent UTI admitted for further management of acute pyelonephritis and severe sepsis. Acute pyelonephritis with severe sepsis -UA with 2+ leukocytes, positive nitrites, 3+ blood, positive urinary sediment, no bacteria -leukocytosis ,tachycardia and fevers improved. bacteremia -eneterococcus/strep-senstive to vanco/ampicillin ,repeat blood culture from03/21 : Enterococcus again, Another blood culture added echo: Conclusions: - 1. No obvious vegetation seen on this study 2. Normal LV ejection fraction 60 65% 3. Normal cardiac valvular Dopplers 4. Small loculated pericardial effusion initially started on cefepime and vancomycin (initiated 03/18),ID consult.-patient -continue daptomycin. Urology consult noted- No plans for surgical intervention/ureteral stent. follow CBC, cultures/senstivities. toxic metabolic encephalopathy sec to above. acute left-sided hydronephrosis -likely residual following stent removal acute kidney injury-mild -creatinine 0.95, baseline 0.6 Acute lactic acidosis seems to be resolved with hydration. -follow renal function/lytes history of DVT/PE -continue Xarelto hypothyroidism -continue thyroxine hypertension Hold blood pressure medication and Lasix currently trigeminal neuralgia Hold gabapentin MS Hold baclofen DVT prophylaxis-Xarelto Full code Ongoing hospitalization need acute pyelonephritis with severe sepsis -has Enterococcus bacteremia/UTI: Need IV antibiotics, also has persistent bacteremia so need repeat culture to come back and ID follow-up. Quality Stroke Does the patient have a stroke diagnosis?: No VTE Prior VTE?: Yes VTE Risk Level:: Medical - moderate - high VTE Device Contraindication: Treatment Not Indicated VTE Drug Contraindication: N/A - Med Ordered
--- NOTE | 2024-03-23 14:16 | MHC.CM.PN ---
CM met with pt. at her request. She discussed the previous conversation about going home on IV ABX and having her [employer]ENCE [employer]IVER's trained. Provider informed CM that he is uncertain at this time as to what her DC needs will be. Pt. is concerned about her [employer]IVER's leaving because they are not getting paid while she is here. Pt. aware that provider is not ready to DC her yet.
[2024-03-23] MEDS: DAPTOmycin 700 MG in 0.9 % Sodium Chloride 50 ML 105.25 MG IV (20:45)
[2024-03-23] MEDS: Acetaminophen 325 MG TABLET 650 MG PO (22:15)
[2024-03-24 03:18] VITALS: BP 114/61; PULSE 73; RESP 16; TEMP 36.4; O2SAT 98
--- NOTE | 2024-03-24 04:56 | PC.NURSE ---
Pt AOx3, talkative, able to make needs known. Pt is wc at baseline d/t MS. She does have skin integrity issues, see skin tab for assessment. Tarn catheter patent, draining CYU. Brace placed on right forearm to help w/contracture forming in right hand. 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 Pt states she take 1000 mg vitamin C only at lunch time; only takes provigil in the morning and at lunch time; and takes 1000mg TID morning, lunch, and bedtime. She states she has informed others of this but no one has changed the medication times. This RN promised to pass on this information. She keeps asking if her last set of blood cultures have grown anything yet, told her we would let her know the results when they become available. Pt stated Dr. Bass administers botox to her bladder quarterly for bladder spasms. She states she is having bladder spasms intermittently at this time. When asked if she wanted this RN to contact overnight MD for medication for the spasms, she declined. Call perez within reach, bed alarm on.
[2024-03-24] MEDS: Levothyroxine Sodium 88 MCG TABLET PO (06:07)
[2024-03-24 08:00] VITALS: BP 138/68; PULSE 79; RESP 20; TEMP 36.9; O2SAT 95
[2024-03-24 08:06] LABS: Creatinine Clr Calc Pharmacy 88.3; Estimated Glomerular Filt Rate > 60
[2024-03-24 08:12] LABS: Potassium 3.1 mmol/L (3.3-5.1)
[2024-03-24] MEDS: 0.9 % Sodium Chloride Flush 3 ML SYRINGE IVFLUSH ×3 (08:25→20:53)
[2024-03-24] MEDS: Ascorbic Acid 500 MG TABLET 1000 MG PO ×2 (08:27→12:51)
[2024-03-24] MEDS: Multivitamin TABLET 1 TAB PO (08:27)
[2024-03-24] MEDS: Baclofen 20 MG TABLET PO ×3 (08:28→20:52)
[2024-03-24] MEDS: modafiniL 100 MG TABLET 200 MG PO ×2 (08:28→12:51)
[2024-03-24] MEDS: Cholecalciferol (Vitamin D3) 25 MCG TABLET 50 MCG PO (08:28)
[2024-03-24] MEDS: Rivaroxaban 10 MG TABLET PO (08:28)
[2024-03-24] MEDS: Furosemide 40 MG TABLET PO (08:28)
[2024-03-24] MEDS: Potassium Chloride ER 20 MEQ TAB.ER.PRT 40 MEQ PO (09:24)
--- NOTE | 2024-03-24 11:05 | MHC.CM.PN ---
EMR REVIEWED, PT'S BC'S CAME BACK POSITIVE OVER W/E, REDRAWN ON 03/23, CM AWAITING BC'S TO CLEAR AND WILL HAVE PICC/MIDLINE PLACED FOR 4WKS IV ABX, PT'S FRIEND/HCP ELIECER WILL ADMIN, [facility] UPD[facility], CM WILL CONT TO FOLLOW DC NEEDS.
[2024-03-24 12:00] VITALS: BP 124/65; PULSE 66; RESP 20; TEMP 36.8; O2SAT 95
[2024-03-24] MEDS: Acetaminophen 325 MG TABLET 650 MG PO ×2 (12:53→18:48)
--- NOTE | 2024-03-24 13:56 | P.PNIM_ITS ---
Subjective Subjective Date of Service: 03/24/24 Interval History: Enterococcus bacteremia Review of Systems Leukocytosis resolved, no fever entercoccal bacteremia Physical Exam 2 Vital Signs: Vital Signs: Last Vital Signs Temp 98.2 F 03/24/24 12:00 Pulse 66 03/24/24 12:00 Resp 20 03/24/24 12:00 BP 124/65 03/24/24 12:00 Pulse Ox 95 03/24/24 12:00 O2 Del Method Room Air 03/24/24 12:00 O2 Flow Rate 2 03/23/24 23:56 BMI result Body Mass Index 32.1 Appearance: Alert.? Oriented-seems at baseline. cvs: rrr, [id number] . res: clear to auscultation ,no rhonchii or wheezing abd: no rebound or guarding ,nt, bs present. Gu: no CVA Tenderness . ext pulses present , no cyanosis . neuro: axo3 , at baseline. Objective Data Active Medications Acetaminophen (Acetaminophen 325 Mg Tablet) 650 mg PO Q6H PRN PRN Reason: Pain, Mild (Pain Scale 1-3), fever or headache Last Admin: 03/24/24 12:53 Dose: 650 mg Documented By: NIKOLAS Ascorbic Acid (Ascorbic Acid 500 Mg Tablet) 1,000 mg PO BID@0900,1200 [facility] Last Admin: 03/24/24 12:51 Dose: 1,000 mg Documented By: NIKOLAS Baclofen (Baclofen 20 Mg Tablet) 20 mg PO TID [facility] Last Admin: 03/24/24 08:28 Dose: 20 mg Documented By: NIKOLAS Calcium Carbonate (Calcium Carbonate 750 Mg Tab.Chew) 750 mg PO Q4H PRN PRN Reason: Heartburn Docusate Sodium (Docusate Sodium 100 Mg Capsule) 100 mg PO BEDTIME PRN PRN Reason: Constipation Furosemide (Furosemide 40 Mg Tablet) 40 mg PO DAILY [facility]; Protocol Last Admin: 03/24/24 08:28 Dose: 40 mg Documented By: NIKOLAS Gabapentin (Gabapentin 300 Mg Capsule) 300 mg PO TID [facility] Last Admin: 03/19/24 14:38 Dose: 300 mg Documented By: LOKESH Daptomycin 700 mg/ Sodium (Chloride) 64 mls @ 105.254 mls/hr IV Q24H [facility] Last Infusion: 08/11/24 21:30 Dose: Infused Documented By: AMI Levothyroxine Sodium (Levothyroxine Sodium 88 Mcg Tablet) 88 mcg PO DAILY@0600 [facility] Last Admin: 03/24/24 06:07 Dose: 88 mcg Documented By: AMI Lisinopril (Lisinopril 5 Mg Tablet) 5 mg PO DAILY [facility]; Protocol Last Admin: 03/19/24 08:39 Dose: 5 mg Documented By: LOKESH Magnesium Hydroxide (Milk Of Magnesia 30 Ml Oral.Susp) 30 ml PO DAILY PRN PRN Reason: Constipation Melatonin (Melatonin 3 Mg Tablet) 6 mg PO BEDTIME PRN PRN Reason: Insomnia Last Admin: 03/20/24 22:30 Dose: 6 mg Documented By: RAMSEY Modafinil (Modafinil 100 Mg Tablet) 200 mg PO BID@0900,1200 [facility] Last Admin: 03/24/24 12:51 Dose: 200 mg Documented By: NIKOLAS Multivitamins/Vitamin C (Multivitamin Tablet) 1 tab PO DAILY [facility] Last Admin: 03/24/24 08:27 Dose: 1 tab Documented By: INKOLAS Nystatin (Nystatin Powder 15 Gm Bottle) 1 appl TOPICAL BID [facility]; Protocol Last Admin: 03/24/24 08:30 Dose: Not Given Documented By: NIKOLAS Non-Admin Reason: Patient Refused Ondansetron HCl (Ondansetron Hcl 4 Mg/2 Ml Vial) 4 mg IVPUSH Q8H PRN PRN Reason: Nausea and Vomiting Last Admin: 03/19/24 08:38 Dose: 4 mg Documented By: LOKESH Rivaroxaban (Rivaroxaban 10 Mg Tablet) 10 mg PO DAILY [facility] Last Admin: 03/24/24 08:28 Dose: 10 mg Documented By: NIKOLAS Sodium Chloride (0.9 % Sodium Chloride Flush 3 Ml Syringe) 3 ml IVFLUSH QSHIFT [facility] Last Admin: 03/24/24 08:25 Dose: 3 ml Documented By: NIKOLAS Vitamin D (Cholecalciferol (Vitamin D3) 25 Mcg Tablet) 50 mcg PO DAILY [facility] Last Admin: 03/24/24 08:28 Dose: 50 mcg Documented By: NIKOLAS Labs 03/23/24 07:01 03/24/24 06:21 Labs: Laboratory Results - last 24 hr 03/24/24 06:21 Estim Creat Clear Calc 88.3 Estimated GFR > 60 Microbiology Microbiology Results: Microbiology 03/23/24 11:28 Blood Culture - Preliminary Blood - Venous No growth after 24 hours. 03/23/24 11:15 Blood Culture - Preliminary Blood - Venous No growth after 24 hours. 03/21/24 10:28 Blood Culture - Final Blood - Venous Enterococcus faecalis 03/21/24 10:28 Blood Culture - Final Blood - Venous Enterococcus faecalis Assessment and Plan (1) Pyelonephritis: Status: Acute (2) Severe sepsis: Status: Acute Assessment and Plan: 69-year-old female with history of DVT/PE anticoagulated with Xarelto, history of [place] and cardiac arrest, trigeminal neuralgia, osteoporosis, Parkinson's, hypothyroidism, hypertension, CVA, bladder spasms, recurrent UTI admitted for further management of acute pyelonephritis and severe sepsis. Acute pyelonephritis with severe sepsis -UA with 2+ leukocytes, positive nitrites, 3+ blood, positive urinary sediment, no bacteria -leukocytosis ,tachycardia and fevers improved. bacteremia -eneterococcus/strep-senstive to vanco/ampicillin ,repeat blood culture from03/21 : Enterococcus again, blood culture (03/23)-sofar negative @24hrs echo: Conclusions: - 1. No obvious vegetation seen on this study 2. Normal LV ejection fraction 60 65% 3. Normal cardiac valvular Dopplers 4. Small loculated pericardial effusion initially started on cefepime and vancomycin (initiated 03/18),ID consult.- patient -continue daptomycin. Urology consult noted- No plans for surgical intervention/ureteral stent. follow CBC, cultures/senstivities. Id follow up for durtaion of antibiotics once blood cultures clears. toxic metabolic encephalopathy sec to above. acute left-sided hydronephrosis -likely residual following stent removal acute kidney injury-mild -creatinine 0.95, baseline 0.6 Acute lactic acidosis seems to be resolved with hydration. -follow renal function/lytes history of DVT/PE -continue Xarelto hypothyroidism -continue thyroxine hypertension Hold blood pressure medication and Lasix currently trigeminal neuralgia Hold gabapentin [place] Hold baclofen DVT prophylaxis-Xarelto Full code Ongoing hospitalization need acute pyelonephritis with severe sepsis -has Enterococcus bacteremia/UTI: Need IV antibiotics, also has persistent bacteremia so need repeat culture to come back and ID follow-up. Quality Stroke Does the patient have a stroke diagnosis?: No VTE Prior VTE?: Yes VTE Risk Level:: Medical - moderate - high VTE Device Contraindication: Treatment Not Indicated VTE Drug Contraindication: N/A - Med Ordered
[2024-03-24 15:19] VITALS: BP 143/67; PULSE 89; RESP 20; TEMP 36.6; O2SAT 96
[2024-03-24 19:43] VITALS: BP 139/61; PULSE 84; RESP 16; TEMP 36.2; O2SAT 95
[2024-03-24] MEDS: DAPTOmycin 700 MG in 0.9 % Sodium Chloride 50 ML 105.25 MG IV (20:31)
[2024-03-24] MEDS: Melatonin 3 MG TABLET 6 MG PO (20:52)
[2024-03-25] VITALS: BP 112/57; PULSE 71; RESP 20; TEMP 36.1; O2SAT 97
[2024-03-25 04:00] VITALS: BP 122/59; PULSE 74; RESP 20; TEMP 36.1; O2SAT 97
[2024-03-25] MEDS: Levothyroxine Sodium 88 MCG TABLET PO (05:30)
[2024-03-25 07:18] LABS: Creatinine Clr Calc Pharmacy 89.7; Estimated Glomerular Filt Rate > 60
[2024-03-25 07:43] VITALS: BP 131/61; PULSE 78; RESP 20; TEMP 36.6; O2SAT 95
[2024-03-25] MEDS: Ascorbic Acid 500 MG TABLET 1000 MG PO ×2 (09:37→11:09)
[2024-03-25] MEDS: Furosemide 40 MG TABLET PO (09:38)
[2024-03-25] MEDS: Rivaroxaban 10 MG TABLET PO (09:38)
[2024-03-25] MEDS: modafiniL 100 MG TABLET 200 MG PO ×2 (09:38→11:09)
[2024-03-25] MEDS: Baclofen 20 MG TABLET PO ×2 (09:38→15:28)
[2024-03-25] MEDS: Cholecalciferol (Vitamin D3) 25 MCG TABLET 50 MCG PO (09:38)
[2024-03-25] MEDS: Multivitamin TABLET 1 TAB PO (09:38)
[2024-03-25] MEDS: 0.9 % Sodium Chloride Flush 3 ML SYRINGE IVFLUSH ×2 (10:43→15:29)
[2024-03-25 10:59] VITALS: BP 137/94; PULSE 79; RESP 20; TEMP 36.5; O2SAT 96
--- NOTE | 2024-03-25 14:13 | MHC.CM.PN ---
PT TO BE MEDICALLY CLEARED FOR DC HOME W/[facility] PENDING MIDLINE PLACEMENT, [facility] FOR TRANSPORT AT 6PM, TRANSPORT TO BE CANCELLED IF LINE IS NOT PLACED.
[2024-03-25 15:23] VITALS: BP 141/65; PULSE 89; RESP 20; TEMP 36.2; O2SAT 95
--- NOTE | 2024-03-25 16:58 | P.DS_ITS ---
DS: Providers Provider Date of Service: 03/25/24 Date of admission: 03/18/24 18:34 Date of discharge: 03/25/24 Primary care physician: Kristen Jean Baptiste MD Consults: 03/18/24 18:36 Consult to Urology Routine Consulting Provider: [facility] Reason for consultation: acute pyelo, severe sepsis, ?stent related 03/18/24 19:15 Consult to Infectious Diseases Routine Consulting Provider: [facility] Reason for consultation: complicated pyelo with severe sepsis, recent enterococcus/pseudomonas uti 03/18/24 21:33 Consult to Wound Care Routine Reason for consultation: DTI to buttocks, MASD under right buttocks 03/19/24 17:29 Consult to Critical Care Routine Consulting Provider: Lazara Staton Reason for consultation: goal of care Has provider been notified: No DS: Diagnosis Discharge Diagnosis (1) Pyelonephritis: Status: Acute (2) Severe sepsis: Status: Acute DS: Summary Hospital Course Hospital Course: 69-year-old female with history of DVT/PE anticoagulated with Xarelto, history of RI and cardiac arrest, trigeminal neuralgia, osteoporosis, Parkinson's, hypothyroidism, hypertension, CVA, bladder spasms, recurrent UTI who is wheelchair-bound at baseline due to multiple sclerosis presented to the ED earlier today for evaluation of nausea, vomiting, chills, sweats that started abruptly this morning. She had left ureteral stent placement about 3 weeks ago at [facility] with stent removal performed by Dr. Bass in Urology yesterday. She states she felt fine following the procedure but again woke up this morning with symptoms. She denies abdominal pain, dysuria, hematuria, increased urinary frequency, urgency, diarrhea, melena, hematochezia, shortness of breath, chest pain. On arrival, was febrile to 104.2, tachycardic to 121, no hypotension. Has also been intermittently tachypneic. Has a leukocytosis of 27.4. Creatinine 0.95, baseline around 0.69, BUN 12. Sodium 133, electrolytes otherwise within normal limits. Initial lactic acid 3.0, repeat 0.7. Urinalysis significant for 3+ blood, 2+ leukocytes, positive nitrites, positive urinary sediment, negative bacteria. CT abdomen/pelvis shows mild left-sided hydronephrosis with marked perinephric stranding. No ureteral calculi seen, findings may be secondary to stent removal. Incidentally noted ar e in large fatty liver, calcified pulmonary granulomas, hysterectomy and degenerative changes of the spine. In the ED, has received a total of 3.6 L IVF, IV vancomycin, IV cefepime, Tylenol, ibuprofen, and ondansetron. She will be admitted for further management acute pyelonephritis with severe sepsis. Hospital course Admitted to telemetry and started on empiric cefepime and vancomycin. Urine and blood cultures positive for Enterococcus faecalis sensitive to vancomycin. Seen in consultation by Infectious Disease who recommended DC of cefepime and start daptomycin. 2D echo done during this admission demonstrated an LVEF of 60 65% without valvular vegetations. Patient had midline placed to complete 4 weeks of daptomycin and will be discharged home with VNA services. She will follow-up as outpatient as scheduled Time Attestation Discharge Coordination Time (in mins): 35 Quality: Safe Use of Opioids Does Pt have an Active Cancer Diagnosis on the Problem List?: No Quality: Stroke Does the patient have a stroke diagnosis?: No Physical Exam Vital Signs: Vital Signs: Last Vital Signs Temp 97.1 F 03/25/24 15:23 Pulse 89 03/25/24 15:23 Resp 20 03/25/24 15:23 BP 141/65 H 03/25/24 15:23 Pulse Ox 95 03/25/24 15:23 O2 Del Method Room Air 03/25/24 15:23 O2 Flow Rate 1 03/25/24 04:00 BMI result Body Mass Index 32.1 Const: Other: Awake alert oriented x3 no acute distress Resp: Other: Clear to auscultation bilaterally no rales rhonchi or wheezes Cardio: Other: No S4; positive S1-S2; no S3 murmurs rubs or gallops GI: Other: Soft nontender nondistended normoactive bowel sounds Extrem: Other: No edema bilaterally DS: Data Data Completed and Pending Completed studies during hospitalization [Text1]: Procedures Insertion of Infusion Device into Left Cephalic Vein, Percutaneous Approach (02/13/22) Labs on day of discharge: Laboratory Results - last 24 hr 03/25/24 06:31 Hold Purple Top SEE NOTE Creatinine 0.66 Estim Creat Clear Calc 89.7 Estimated GFR > 60 Preliminary micro results at discharge 03/23/24 11:28 Blood Culture - Preliminary Blood - Venous No growth after 48 hours. 03/23/24 11:15 Blood Culture - Preliminary Blood - Venous No growth after 48 hours. Discharge Plan Discharge Anticipated Discharge Date/Time: 03/25/24 16:53 Patient Disposition: Home Health Service Discharge Diagnosis: Acute UTI Referrals: [facility] [Other] - 1 Day (PLEASE FEEL FREE TO CALL [phone] AND FOLLOW PROMPTS IF YOU NEED A NURSE FOR OFF HOURS PHONE SUPPORT) [facility] [Outside] - 1 Day (COLD MILL OPERATOR IV ANTIBIOTOCS AT HOME AND RESUMPTION OF CATHETER CHANGES. ) Kristen Jean Baptiste MD [Primary Care Provider] - 1 Week Discharge Medications: New daptomycin 350 mg Recon Soln 700 mg IV Q24H Qty: 21 0RF Continued sulfamethoxazole-trimethoprim [Bactrim DS] 800-160 mg tablet 1 tab PO BID 14 Days Qty: 28 0RF Rx Instructions: End date 03-19-24 cholecalciferol (vitamin D3) 50 mcg (2,000 unit) capsule 1 cap PO DAILY silver sulfadiazine 1 % cream 1 appl topical DAILY baclofen 20 mg tablet 20 mg PO TID metronidazole 0.75 % cream 1 appl topical BID Xarelto 10 mg tablet 10 mg PO DAILY Multivitamin 50 Plus Tablet 1 tab PO DAILY modafinil [Provigil] 200 mg tablet 200 mg PO BID Rx Instructions: Pt receives Brand name only, generic does not work gabapentin 300 mg capsule 300 mg PO TID levothyroxine 88 mcg tablet 88 mcg PO DAILY@0600 acetaminophen 500 mg capsule 500 mg PO QID furosemide 40 mg tablet 40 mg PO DAILY lisinopril 5 mg tablet 5 mg PO DAILY docusate sodium 100 mg capsule 100 mg PO BEDTIME PRN (Reason: Constipation) ascorbic acid (vitamin C) [Vitamin C] 1,000 mg tablet 1,000 mg PO BID 90 Days Qty: 180 1RF Discharge Orders: Discharge Order (Routine); Ordered 03/25/24 Ordered By: Rogelio Mata Diet: Advance to usual diet Activity on Discharge: As tolerated Stand Alone Forms: Patient Portal Discharge page Print Language: Upper Sorbian Care Plan Goals: Resume all previous medications as taken prior to hospitalization Health Concerns: Daptomycin IV total dosing 4 weeks. Last dose April 16 or as per infusion service Plan of Treatment: Resume all pre-hospital therapies and treatment plans Assessment: See discharge summary
--- NOTE | 2024-03-25 17:17 | HO.MIDLINE_ITS ---
Midline Insertion MIDLINE INSERTION Diagnosis: Baceteremia Indication: 4wks ABT Pertinent Labs: Technique: Using sterile technique including cap and mask, glove and drape, the left arm arm was prepped and draped in the usual sterile fashion of full barrier technique with CHG. Using ultrasound guidance, left basilic vein access was obtained . 4FR single lumen Non PASV trimmed to 12cm was positioned. The procedure was performed in Rm 272. Ultrasound was used to document vein patency and for needle entry. A formal ultrasound picture was recorded. Va scular Wire Preparation Worker has released the line for use and it is currently dressed with a StatLock, Tegaderm, and CHG disc. Verification has been performed for blood return and line patency. Arm Circumference: 37.5cm Equipment: Selectron PowerMidline Catheter Catheter Type: 4FR single lumen NonPASV Midline catheter Lot #: [id number]
[2024-03-25] MEDS: DAPTOmycin 700 MG in 0.9 % Sodium Chloride 50 ML 105.25 MG IV (17:33)
[2024-03-25] MEDS: Acetaminophen 325 MG TABLET 650 MG PO (17:35)
--- NOTE | 2024-03-26 11:14 | P.F2F_ITS ---
Service Date Service Date: 03/26/24 Encounter Date of encounter: 03/25/24 Encounter: Acute hospitalization acute hospitalization Reasons for Services Signs and symptoms assessed: Enterococcus bacteremia; has midline for IV antibiotics Reason for care home: medication management and teach disease management Homebound: Leaving the home is medically contraindicated at this time without the asist of a device and/or another person due th the listed conditions above and below. Reason homebound: bedbound/chairbound and unable to drive Certification: Based on the above findings, I certify that this patient is confined to the home and needs intermittent care home care, physical therapy and/or speech therapy, or continues to need occupational therapy. The patient is under my care, and I have initiated the establishment of the plan of care. The patient will be followed by a physician who will periodically review the plan of care. Time Spent With Patient Time: Total time managing care of this patient today ____ minutes.
== END 2024-03-25 19:01 | disposition home health service (06) | DRG 871 ==
LOC: HO.ED 16:00 → HO.EDOVER 18:48 → HO.IMC 19:22
PROVIDERS: Internal Medicine; Physician Assistant Medical; Student in an Organized Health Care Education/Training Program; Admitting Provider Physician Assistant; Emergency Provider Emergency Medicine; PCP Family Medicine; Visit Provider Hospitalist
DX: A41.9 Sepsis, unspecified organism (principal); G92.8 Other toxic encephalopathy; N17.9 Acute kidney failure, unspecified; E87.21 Acute metabolic acidosis; R65.20 Severe sepsis without septic shock; L89.156 Pressure-induced deep tissue damage of sacral region; Z86.14 Personal history of Methicillin resistant Staphylococcus aureus infection; E03.9 Hypothyroidism, unspecified; I10 Essential (primary) hypertension; G50.0 Trigeminal neuralgia; B95.2 Enterococcus as the cause of diseases classified elsewhere; N31.9 Neuromuscular dysfunction of bladder, unspecified; G35 Multiple sclerosis; Z99.3 Dependence on wheelchair; Z87.440 Personal history of urinary (tract) infections; Z88.0 Allergy status to penicillin; Z91.041 Radiographic dye allergy status; Z86.718 Personal history of other venous thrombosis and embolism; Z86.74 Personal history of sudden cardiac arrest; Z86.711 Personal history of pulmonary embolism; Z79.01 Long term (current) use of anticoagulants; Z79.890 Hormone replacement therapy; Z79.899 Other long term (current) drug therapy
CPT/HCPCS: 36410; 36415; 70450; 74176; 80048; 80053; 80202; 81001; 82565; 82803; 83605; 83735; 84100; 84132; 85007; 85025; 85027; 87040; 87077; 87086; 87088; 87186; 87205; 93306; 99285; C1751; C1758; J0692; J0878; J1100; J1956; J2250; J2371; J2405; J2704; J3010; J3371; J7120; P9047; Q9957; Q9967

== ENCOUNTER 2024-03-18 18:34 | Outpatient (BNV) | payer MEDICARE, MEDICAID, SELFPAY | END 2024-03-20 07:00 | PROVIDERS: Admitting Provider Physician Assistant; Emergency Provider Emergency Medicine; PCP Family Medicine; Visit Provider Internal Medicine Cardiovascular Disease | DX: R78.81 Bacteremia (principal); I31.39 Other pericardial effusion (noninflammatory) | CPT/HCPCS: 93306 ==

== ENCOUNTER → 2024-03-18 18:34 | Outpatient (BNV) | payer MEDICARE, MEDICAID, SELFPAY | PROVIDERS: Admitting Provider Physician Assistant; Emergency Provider Emergency Medicine; PCP Family Medicine; Visit Provider Physician Assistant | DX: N12 Tubulo-interstitial nephritis, not specified as acute or chronic (principal); A41.9 Sepsis, unspecified organism; R65.20 Severe sepsis without septic shock; E87.20 Acidosis, unspecified | CPT/HCPCS: 99223; 99231; 99232; 99239; G0180 ==

== ENCOUNTER → 2024-03-18 18:34 | Outpatient (BNV) | payer MEDICARE, MEDICAID, SELFPAY | PROVIDERS: Admitting Provider Physician Assistant; Emergency Provider Emergency Medicine; PCP Family Medicine; Visit Provider Internal Medicine | DX: N31.9 Neuromuscular dysfunction of bladder, unspecified (principal); N12 Tubulo-interstitial nephritis, not specified as acute or chronic; A41.9 Sepsis, unspecified organism; R65.20 Severe sepsis without septic shock | CPT/HCPCS: 99222 ==

== ENCOUNTER → 2024-03-18 18:34 | Outpatient (BNV) | payer MEDICARE, MEDICAID, SELFPAY | PROVIDERS: Admitting Provider Physician Assistant; Emergency Provider Emergency Medicine; PCP Family Medicine; Visit Provider Urology | DX: N39.0 Urinary tract infection, site not specified (principal); N12 Tubulo-interstitial nephritis, not specified as acute or chronic; N31.9 Neuromuscular dysfunction of bladder, unspecified | CPT/HCPCS: 99222 ==

== ENCOUNTER → 2024-03-18 18:34 | Outpatient (BNV) | payer MEDICARE, MEDICAID, SELFPAY | PROVIDERS: Admitting Provider Physician Assistant; Emergency Provider Emergency Medicine; PCP Family Medicine; Visit Provider Physician Assistant Medical | DX: A41.9 Sepsis, unspecified organism (principal); R65.20 Severe sepsis without septic shock; E87.20 Acidosis, unspecified; N39.0 Urinary tract infection, site not specified | CPT/HCPCS: 99291 ==

== ENCOUNTER 2024-04-03 13:51 | Outpatient (AMB) | payer MEDICARE, MEDICAID, SELFPAY ==
--- NOTE | 2024-04-03 13:53 | MHC.OFFVIS ---
Intake Visit Reasons: hospital discharge Allergies mercury (elemental) Allergy (Severe, Verified 03/18/24 12:09) Anaphylaxis Penicillins Allergy (Severe, Verified 03/18/24 12:09) Hives bupropion [From Wellbutrin] Allergy (Intermediate, Verified 03/18/24 12:09) Hives Iodinated Contrast Media [IV Contrast Dye] Allergy (Intermediate, Verified 03/18/24 12:09) Hives morphine Allergy (Intermediate, Verified 03/18/24 12:09) Hives metoclopramide [From Reglan] Adverse Reaction (Intermediate, Verified 03/18/24 12:09) Parkinson syndrome Medication List - Last Reconciled 04/03/24 by Gage Bass MD acetaminophen 500 mg PO QID ascorbic acid (vitamin C) (Vitamin C) 1,000 mg PO BID 90 days baclofen 20 mg PO TID cholecalciferol (vitamin D3) 1 cap PO DAILY daptomycin 700 mg IV Q24H docusate sodium 100 mg PO BEDTIME PRN estradiol 0.01%(0.1mg/gram) pea-sized to urethra 3 times a week - around catheter 30 days furosemide 40 mg PO DAILY gabapentin 300 mg PO TID levothyroxine 88 mcg PO DAILY@0600 lisinopril 5 mg PO DAILY metronidazole 0.75% 1 appl topical BID modafinil (Provigil) 200 mg PO BID [id number]-[id number] (Multivitamin 50 Plus tablet) 1 tab PO DAILY rivaroxaban (Xarelto) 10 mg PO DAILY silver sulfadiazine 1% 1 appl topical DAILY sulfamethoxazole-trimethoprim 800-160 mg (Bactrim DS) 1 tab PO BID 14 days HPI Comments Details: Michelle is a pleasant female. She is a patient of Dr. Jean Baptiste. She is seen for following urologic conditions - multiple sclerosis - botox with indwelling catheter - neurogenic bladder - recurring UTIs - urosepsis after upper tract manipulation Telemedicine evaluation 15 minute consultation Doximity uday Video attempted Had undergone procedure for stone - urosepsis presentation in February with ureteric stone Presented with urosepsis after 24 hrs with bladder spasms Culture enterococcus which was levaquin resistance On daptomycin for 4 weeks Switched to [facility] - uses Duette catheter 18 Yi every 3 weeks - which appears to protect bladder - uses irrigation every other day Needs a formulary exception for fosfomycin refill - to be used if symptoms Nephrolithiasis 03/05 Stent placed - left side Neurogenic Bladder: Recurring urinary tract infection, bladder spasm Previously had Pseudomonas infection responsive to ciprofloxacin UTI appears to be decreasing with combination of Estrace, bladder irrigation - gram positive cocci Urinary retention initially found longstanding history. Diagnosed with multiple sclerosis approximately 15 years ago. Had been followed by Dr. Avina for many years Initially managed with clean intermittent catheterization Subsequently managed with indwelling Tran catheter Had been discussion of suprapubic tube placement however VNA nurses prevent this recurring uti 05/[address] Spencer and cystoscopy with removal of bladder stones - 12/01 cystoscopy Botox biopsy performed with chronic cystitis - 12/04 botox performed Botox Initial 03/01, 07/02, 10/31, 08/02, 05/04 200 units, 11/03 200 units Urine cultures - Pseudomonas fluoroquinolone resistant, citrobacter amp/cefazolin resistant Can only tolerate short course of fluroquinolones Has standing order for urine culture collection through VNA Previously used fosfomycin for catheter changes [facility] Medical History (Updated 04/03/24 @ 14:40 by Gage Bass MD) Recurrent UTI (urinary tract infection) Neurogenic bladder Urinary tract infection Wheelchair dependence Sacral decubitus ulcer Pulmonary emboli Cardiac arrest History of trigeminal neuralgia COVID-19 vaccine series completed Osteoporosis Neurogenic urinary bladder disorder NENO (obstructive sleep apnea) Parkinson's variant of multiple system atrophy Thyroid disease History of neurogenic bladder History of MRSA infection Hx of lymphoma Arthritis Back pain Hx pulmonary embolism DVT (deep venous thrombosis) Anemia Hiatal hernia Tran catheter in place Bladder stones Multiple sclerosis CVA (cerebral vascular accident) Myocardial infarction HTN (hypertension) Painful bladder spasm Surgical History Hx of hysterectomy Hx of lumpectomy Hx of vitrectomy History of intraocular lens implant Hx of adenoidectomy Hx of tonsillectomy Hx of laminectomy History of cystoscopy History of biopsy of bladder History of bladder surgery H/O colonoscopy Social History Household Members: None Housing: Apartment Are you a primary home day care provider to a significant other at home: No Do you presently have visiting nurse or other home services: Yes Patient Tobacco Use Status: Never used Tobacco Second Hand Smoke Exposure: No Advance Directives Date on File: 07/05/20 service: No Current occupational status: disabled Review of Systems Const All systems reviewed & are unremarkable except as noted in HPI and below Reports no additional complaints Resp Reports no additional complaints GI Reports no additional complaints Reports as per HPI Musc Reports no additional complaints Physical Exam Telemedicine evaluation Appropriate responses Regular breathing rate and rhythm HEENT Head: Yes normal to inspection Ears: hearing grossly normal bilaterally Eyes General: appearance normal, both eyes and all related structures Neck Neck: Yes normal visual inspection Chest Chest palpation & inspection: normal inspection of the chest Resp Effort & Inspection: normal respiratory effort and able to speak in complete sentences Telehealth Telehealth Location of provider rendering services: practice address Location of patient: address on file Patient Identification confirmed using: Name, : Yes Telehealth method: video Patient verbally consented to treatment: Yes Patient verbally consented to billing insurance company: Yes Patient informed of any privacy concerns related to visit: Yes Assessment & Plan Assessment & Plan (1) Sepsis: Code(s): A41.9 - Sepsis, unspecified organism Category: Medical (2) Recurrent UTI (urinary tract infection): Code(s): N39.0 - Urinary tract infection, site not specified Category: Medical (3) Pyelonephritis: Code(s): N12 - Tubulo-interstitial nephritis, not specified as acute or chronic Category: Medical (4) Neurogenic bladder: Code(s): N31.9 - Neuromuscular dysfunction of bladder, unspecified Category: Medical (5) Nephrolithiasis: Code(s): N20.0 - Calculus of kidney Category: Medical Plan Estradiol to catheter/urethra 3x a week Refer to infectious disease Orders: Orders US renal BI 6 Months N20.0 - Calculus of kidney Referrals Infectious Disease Referral N39.0 - Urinary tract infection, site not specified Medications: New estradiol 0.01%(0.1mg/gram) pea-sized to urethra 3 times a week - around catheter 30 days 42.5 grams 2RF N31.9 - Neuromuscular dysfunction of bladder, unspecified, N36.2 - Urethral caruncle, N39.0 - Urinary tract infection, site not specified, N95.2 - Postmenopausal atrophic vaginitis Patient Instructions: Imaging studies, laboratory and physical exam results were discussed and reviewed in detail. No major barriers to patient understanding were identified. An opportunity to ask questions regarding the treatment plan was provided. All questions were answered. The patient expressed understanding and agreement with the above treatment plan. The patient is aware they should contact our office by phone for worsening of their current condition or the appearance of new urologic symptoms. Compliance is encouraged with any medications and followup testing that is ordered. It is a privilege to participate in the urologic care of your patient. If you have any questions or concerns regarding treatment for the above conditions, or other urologic issues, please do not hesitate to contact me. The office telephone contact is [phone]. This note is constructed using voice recognition software. While every effort has been made to ensure accuracy sustainable systems analyst errors may have been included. Yours sincerely, Dr Gage Bass MD, [facility] - Urology Providers of Expert, Compassionate Care for the Genitourinary System Coding Level of Care Code Tele Est Pt Level 4 (05877) Complex EM visit Add On G2211 Diagnoses Sepsis A41.9 Recurrent UTI (urinary tract infection) N39.0 Pyelonephritis N12 Neurogenic bladder N31.9 Nephrolithiasis N20.0
--- OUTSIDE RECORDS SUMMARY | 2024-04-05 23:47 | XMS_ITS | Continuity of Care Document ---
Author Organization [facility] Address [address] [place] [address]- Care Team Providers Care Composition Tile Layer Name Role Phone Juan Manuel LIM, Kristen Acosta Primary Care Physic juan alberto Encounter [facility] Date(s): 02/19/24 - 03/20/24 [facility] [address] [place] [address]- Allergies, Adverse Reactions, Alerts Substance Reaction Severity Status morphine hives, SOB Active Wellbutrin rash Active contrast media (iodine-based) itching throughout body Active Other Environmental Allergy mercury-fillings Active penicillins hive Active Reglan Active cannabis (Schedule I substance) itching/vomiting Active Immunizations Given and Recorded Vaccine Date Status Refusal Reason SARS-CoV-2(COVID-19)mRNA-LNP vac([id number]) 10/19/23 Recorded SARS-CoV-2(COVID-19)mRNA-LNP vac([id number]) 07/03/23 Recorded RSV vaccine preF3, recombinant 05/19/23 [...] Arnoldo rded influenza virus vaccine, inactivated 04/26/09 Ranoldo rded [id number] 12y+ bivalent booster vax 01/23/23 Recorded [id number] 12y+ bivalent booster vax 05/12/22 Recorded pneumococcal 20-valent conjugate vaccine 05/30/22 Recorded SARS-CoV-2 mRNA (ypbvpyw-ooso-hofaz) vax 03/10/22 Recorded SARS-CoV-2 mRNA (ggezafp-buxh-npudh) vax 10/04/21 Recorded SARS-CoV-2 (COVID-19) mRNA BNT-162b2 [...] 1 Refills, Maintenance, 08/01/23 13:53:00 EST, Tablet, [facility]/pharmacy #[id number], Partial fill upon patient request if the prescription is for a schedule II opioid drug., 155, cm, 05/28/23 11:02:00 E... Start Date: 08/01/23 Status: Ordered baclofen 20 mg oral tablet 20 mg, 1, tablet, By Mouth, 3 times a day, # 270 tablet, Refills 3, Tot. Refills 3, Maintenance, 03/07/24 13:37:00 EDT, Route to Pharmacy Electronically, [facility], Partial fill upon patient request if the prescription is for a... Start Date: 03/07/24 Stop Date: 03/02/25 Status: Ordered bifidobacterium-lactobacillus oral tablet 2 tablet, By Mouth, 2 times a day, [facility] Brand please ([facility]), # 360 tablet, 3 Refills, Maintenance, 08/11/21 17:02:00 EST, Tablet, [facility]/pharmacy #[id number], Partial fill upon patient request if the prescription is for a schedule II opioid drug., 2... Start Date: 08/11/21 Stop Date: 08/06/22 Status: Ordered calcium carbonate 600 mg oral tablet 1 tablet = 600 mg, By Mouth, 2 times a day, # 180 tablet, 2 Refills, Maintenance, 01/06/23 14:02:00EDT, Tablet, [facility]/pharmacy #[id number], Partial fill upon patient request if the prescription is for a schedule II opioid drug., 155, cm, 02/23/22 8:04:00 EDT... Start Date: 01/06/23 Stop Date: 10/03/23 Status: Ordered Centrum Silver Ultra Women's oral tablet 1 tablet, By Mouth, Daily, 0 Refills, Maintenance, 07/09/18 8:43:55 EST Start Date: 07/09/18 Status: Ordered [facility] SENIOR PROBIOTIC CAPSULE TAKE 2 CAPSULES BY MOUTH TWICE A DAY Start Date: 11/01/21 Status: Ordered Enemeez Mini 283 mg rectal enema See Instructions, USE RECTALLY EVERY DAY NEEDED FOR CONSTIPATION, # 450 mL, 5 Refills, 03/02/22 8:08:00 EDT, [facility]/pharmacy #[id number], 155, cm, 02/23/22 [...] 02/28/24 11:11:00 EDT, Route to Pharmacy Electronically, [facility], 155, cm, 02/18/24 11:04:00EDT, Height Start Date: 02/28/24 Status: Ordered gabapentin 300 mg oral capsule 300 mg, 1, capsule, By Mouth, 3 times a day, # 270 capsule, Refills 3, Tot. Refills 3, Maintenance,03/07/24 13:36:00 EDT, Route to Pharmacy Electronically, [facility], Partialfill upon patient request if the prescription is fo... Start Date: 03/07/24 Stop Date: 03/02/25 Status: Ordered Juzo Compression Hose Juzo Compression Hose, See Instructions, # 2 each, Refills 2, Tot. Refills 2, Maintenance, Juzo Compression Hose 2 pairs [id number]-[id number] Soft Knee FF Petite 20-30 mmHg Silicone, Black Stock Code [id number] I I I Part #[id number] Size I I I SKU... Start Date: 03/12/23 Status: Ordered levothyroxine 0.088 mg oral tablet 1 tablet = 88 mcg, By Mouth, Daily, # 90 tablet, 1 Refills, Maintenance, 10/01/23 17:11:00 EST, Tablet, [facility]/pharmacy #[id number], Partial fill upon patient request if the prescription is for a schedule II opioid drug., 155, cm, 05/28/23 11:02:00 EDT, Height... Start Date: 10/01/23 Status: Ordered lisinopril 5 mg oral tablet 1, tablet, By Mouth, Daily, # 90 tablet, Refills 1, Tot. Refills 1, Maintenance, 10/01/23 17:15:00 EST, Route to Pharmacy Electronically, [facility]/pharmacy #[id number], 155, cm, 05/28/23 11:02:00 EDT, Height, 93.4, kg, 11/01/21 16:52:00 EDT, Dry Weight Start Date: 10/01/23 Status: Ordered Mapap 500 mg oral capsule See Instructions, TAKE 2 CAPSULES BY MOUTH 4 TIMES A DAY NEEDED FOR PAIN, # 480 capsule, 0 Refills, Maintenance, 11/12/23 15:45:00 EDT, [facility]/pharmacy #[id number], 155, cm, 05/28/23 11:02:00 EDT, Height Start Date: 11/12/23 Status: Ordered Power [place] Lift with Crowley split-leg sling Power [place] Lift with Crowley split-leg sling, See Instructions, # 1 each, [...] 04/14/24 15:39:00 EDT, 03/14/24 15:39:00 EDT, Cream, [facility]/pharmacy #[id number], Partial fill upon [...] capsule, 1 Refills, 12/11/22 15:16:00 EDT, [facility]/pharmacy #[id number], 155, cm, 10/10/22 13:40:00 EST, Height, 93.4, kg, 11/01/21 16:52:00 EDT, Dry Weight Start Date: 12/11/22 Status: Ordered Xarelto 10 mg oral tablet 1 tablet = 10 mg, By Mouth, Daily, # 90 tablet, 3 Refills, Maintenance, 02/26/24 11:39:00 EDT, Tablet, [facility], Partial fill upon patient request if the prescription is for a schedule II opioid drug., 155, cm, 02/18/24 11:04:... Start Date: 02/26/24 Stop Date: 02/20/25 Status: Ordered Xarelto 20 mg oral tablet See Instructions, TAKE 1 TABLET DAILY AT SUPPER, # 90 tablet, 3 Refills, Maintenance, 01/17/23 9:37:00 EDT, [facility], 155, [...] Team Personnel Name: Juliann Rich RN Position: [facility] RN Member Role: Primary Care Nurse Name: Elsa Allen NP Position: [facility] Outreach Member Role: Primary Care Nurse Address: Address: [address] [place] [id number]- [place] Name: Emma Mendoza RN Position: [facility] Nurse Member Role: Primary Care Nurse Name: Juan Manuel LIM, Kristen Acosta Position: [facility] Physician - Primary Care Member Role: PCP Address: Address: [address] [place] [id number]- Name: Anette Soler RN Position: [facility] Onco RN Member Role: Primary Care Nurse Name: Komal Goodrich Position: [facility] Outreach Member Role: Lifetime Consulting Physician Name: Godfrey Cano Position: [facility] RN Member Role: Primary Care Nurse Care Team Related Persons Name: DIOMEDES WARNER Address: home [address] [place] [address] Name: MOO HOWELL Address: home [address] [place] [address] Name: MARLON GENTILE
--- OUTSIDE RECORDS SUMMARY | 2024-04-05 23:49 | XMS_ITS | Continuity of Care Document ---
Author Organization [facility] Address [address] [place] [address]- Care Team Providers Care Veterinary Epidemiologist Name Role Phone Juan Manuel LIM, Kristen Acosta Primary Care Physic juan alberto Encounter [facility] Date(s): 03/03/24 - 04/02/24 [facility] [address] [place] [address]- Allergies, Adverse Reactions, Alerts Substance Reaction Severity Status morphine hives, SOB Active Wellbutrin rash Active Reglan Active contrast media (iodine-based) itching throughout body Active penicillins hive Active cannabis (Schedule I substance) itching/vomiting Active Other Environmental Allergy mercury-fillings Active Immunizations Given and Recorded Vaccine Date Status Refusal Reason SARS-CoV-2(COVID-19)mRNA-LNP vac([id number]) 10/19/23 Recorded SARS-CoV-2(COVID-19)mRNA-LNP vac(dbr063) 07/03/23 Recorded RSV vaccine preF3, recombinant 05/19/23 [...] influenza virus vaccine, inactivated 04/26/09 Arnoldo rded [id number]-7gWFF 12y+ bivalent booster vax 01/23/23 Recorded YFLD-BmK-5iUSM 12y+ bivalent booster vax 05/12/22 Recorded pneumococcal 20-valent conjugate vaccine 05/30/22 Recorded SARS-CoV-2 mRNA (uixezrr-srdn-gfhvx) vax 03/10/22 Recorded SARS-CoV-2 mRNA (lxayiwf-otlu-opdzn) vax 10/04/21 Recorded SARS-CoV-2 (COVID-19) mRNA BNT-162b2 [...] 03/07/24 13:37:00 EDT, Route to Pharmacy Electronically, [facility], Partial fill upon patient [...] 02/28/24 11:11:00 EDT, Route to Pharmacy Electronically, [facility], 155, cm, 02/18/24 11:04:00EDT, Height Start Date: 02/28/24 Status: Ordered gabapentin 300 mg oral capsule 300 mg, 1, capsule, By Mouth, 3 times a day, # 270 capsule, Refills 3, Tot. Refills 3, Maintenance,03/07/24 13:36:00 EDT, Route to Pharmacy Electronically, [facility], Partialfill upon patient request if the prescription is fo... Start Date: 03/07/24 Stop Date: 03/02/25 Status: Ordered Juzo Compression Hose Juzo Compression Hose, See Instructions, # 2 each, Refills 2, Tot. Refills 2, Maintenance, Juzo Compression Hose 2 pairs xafkc-nvo-buxm Soft Knee FF Petite 20-30 mmHg Silicone, Black Stock Code [id number] I I I Part #[id number] Size I I I SKU... Start Date: 03/12/23 Status: Ordered levothyroxine 0.088 mg oral tablet 1 tablet = 88 mcg, By Mouth, Daily, # 90 tablet, 1 Refills, Maintenance, 03/30/24 19:17:00 EDT, Tablet, [facility], Partial fill upon patient request if the prescription is fora schedule II opioid drug., 155, cm, 03/10/24 10:57... Start Date: 03/30/24 Status: Ordered lisinopril 5 mg oral tablet 1, tablet, By Mouth, Daily, # 90 tablet, Refills 1, Tot. Refills 1, Maintenance, 10/01/23 17:15:00 EST, Route to Pharmacy Electronically, [facility]/pharmacy #[id number], 155, cm, 05/28/23 11:02:00 EDT, Height, 93.4, kg, 11/01/21 16:52:00 EDT, Dry Weight Start Date: 10/01/23 Status: Ordered Mapap 500 mg oral capsule See Instructions, TAKE 2 CAPSULES BY MOUTH 4 TIMES A DAY NEEDED FOR PAIN, # 480 capsule, 0 Refills, Maintenance, 11/12/23 15:45:00 EDT, [facility]/pharmacy #[id number], 155, cm, 05/28/23 11:02:00 EDT, Height Start Date: 11/12/23 Status: Ordered Power [place] Lift with [place] split-leg sling Power [place] Lift with [place] split-leg sling, See Instructions, # 1 each, [...] 04/14/24 15:39:00 EDT, 03/14/24 15:39:00 EDT, Cream, [facility]/pharmacy #[id number], Partial [...] 3 Refills, Maintenance, 02/26/24 11:39:00 EDT, Tablet, [facility], Partial fill upon patient request if the prescription is for a schedule II opioid drug., 155, cm, 02/18/24 11:04:... Start Date: 02/26/24 Stop Date: 02/20/25 Status: Ordered Xarelto 20 mg oral tablet See Instructions, TAKE 1 TABLET DAILY AT SUPPER, # 90 tablet, 3 Refills, Maintenance, 01/17/23 9:37:00 EDT, [facility], [...] Member Role: Primary Care Nurse Address: Address: [address] [place] [address]- [place] Name: Emma Mendoza RN Position: [facility] AMB Nurse Member Role: Primary Care Nurse Name: Juan Manuel LIM, rKisten Acosta Position: [facility] Physician - Primary Care Member Role: PCP Address: Address: [address] [place] [address]- Name: Anette Soler RN Position: [facility] Onco RN Member Role: Primary Care Nurse Name: Komal Goodrich Position: [facility] Outreach Member Role: Lifetime Consulting Physician Name: Godfrey Cano Position: [facility] RN Member Role: Primary Care Nurse Care Team Related Persons Name: DIOMEDES WARNER Address: home [address] [place] [address] Name: MOO HOWELL Address: [address] [place] [address] Name: MARLON GENTILE
--- OUTSIDE RECORDS SUMMARY | 2024-04-05 23:51 | XMS_ITS | Continuity of Care Document ---
Author Organization [facility] Address [address] [place] [address]- Care Team Providers Care Labview Programmer Name Role Phone Juan Manuel LIM, Kristen Acosta Primary Care Physic juan alberto [place] [facility] [place] 03/29/24 [facility] [address] [place] [address]- Allergies, Adverse Reactions, Alerts Substance Reaction Severity Status morphine hives, SOB Active Wellbutrin rash Active Other Environmental Allergy mercury-fillings Active contrast media (iodine-based) itching throughout body Active cannabis (Schedule I substance) itching/vomiting Active penicillins hive Active Reglan Active Immunizations Given and Recorded Vaccine Date Status Refusal Reason SARS-CoV-2(COVID-19)mRNA-LNP vac(cva123) 10/19/23 Recorded SARS-CoV-2(COVID-19)mRNA-LNP vac(tso873) 07/03/23 Recorded RSV vaccine preF3, recombinant 05/19/23 [...] influenza virus vaccine, inactivated 04/26/09 Arnoldo rded [id number]-TxB-7yWQG 12y+ bivalent booster vax 01/23/23 Recorded UXEM-XoP-7tYFZ 12y+ bivalent booster vax 05/12/22 Recorded pneumococcal 20-valent conjugate vaccine 05/30/22 Recorded SARS-CoV-2 mRNA (afherlh-gzoh-tazxb) vax 03/10/22 Recorded SARS-CoV-2 mRNA (kscstvc-jvmw-raffu) vax 10/04/21 Recorded SARS-CoV-2 (COVID-19) mRNA BNT-162b2 [...] day, [facility] Brand please (Senior Wellness), # [...] 02/28/24 11:11:00 EDT, Route to Pharmacy Electronically, [facility], 155, cm, 02/18/24 11:04:00EDT, Height Start Date: 02/28/24 Status: Ordered gabapentin 300 mg oral capsule 300 mg, 1, capsule, By Mouth, 3 times a day, # 270 capsule, Refills 3, Tot. Refills 3, Maintenance,03/07/24 13:36:00 EDT, Route to Pharmacy Electronically, [facility], Partialfill upon patient request if the prescription is fo... Start Date: 03/07/24 Stop Date: 03/02/25 Status: Ordered Juzo Compression Hose Juzo Compression Hose, See Instructions, # 2 each, Refills 2, Tot. Refills 2, Maintenance, Juzo Compression Hose 2 pairs mjxwc-pug-ircu Soft Knee FF Petite 20-30 mmHg Silicone, Black Stock Code [id number] I I I Part #[id number] Size I I I SKU... Start Date: [...] 11/12/23 Status: Ordered Power Virginia Lift with [place] split-leg sling Power Virginia Lift with [place] split-leg sling, See Instructions, # 1 each, [...] 04/14/24 15:39:00 EDT, 03/14/24 15:39:00 EDT, Cream, [facility]/pharmacy #[id number], Partial fill [...] 90 capsule, 1 Refills, 12/11/22 15:16:00 EDT, [facility]/pharmacy #[id number], 155, cm, 10/10/22 13:40:00 EST, Height, 93.4, kg, 11/01/21 16:52:00 EDT, Dry Weight Start Date: 12/11/22 Status: Ordered Xarelto 10 mg oral tablet 1 tablet = 10 mg, By Mouth, Daily, # 90 tablet, 3 Refills, Maintenance, 02/26/24 11:39:00 EDT, Tablet, [facility], Partial fill upon patient request if the prescription is for a schedule II opioid drug., 155, cm, 02/18/24 11:04:... Start Date: 02/26/24 Stop Date: 02/20/25 Status: Ordered Xarelto 20 mg oral tablet See Instructions, TAKE 1 TABLET DAILY AT SUPPER, # 90 tablet, 3 Refills, Maintenance, 01/17/23 9:37:00 EDT, [facility], 155, cm, 10/10/22 13:40:00 [...] Member Role: Primary Care Nurse Address: Address: [address] [place] [address]- [place] Name: Emma Mendoza RN Position: [facility] Nurse Member Role: Primary Care Nurse Name: Juan Manuel LIM, Kristen Acosta Position: [facility] Physician - Primary Care Member Role: PCP Address: Address: [address] [place] [address]- Name: Anette Soler RN Position: [facility] Onco RN Member Role: Primary Care Nurse Name: Komal Goodrich Position: [facility] Outreach Member Role: Lifetime Consulting Physician Name: Godfrey Cano Position: [facility] RN Member Role: Primary Care Nurse Care Team Related Persons Name: DIOMEDES WARNER Address: home [address] [place] [address] Name: MOO HOWELL Address: home [address] [place] [address] Name: MARLON GENTILE
== END 2024-04-03 15:02 | disposition home or self-care (01) ==
LOC: HO.HUSH 13:51
PROVIDERS: PCP Family Medicine; Visit Provider Urology
DX: A41.9 Sepsis, unspecified organism (principal); N39.0 Urinary tract infection, site not specified; N12 Tubulo-interstitial nephritis, not specified as acute or chronic; N31.9 Neuromuscular dysfunction of bladder, unspecified; N20.0 Calculus of kidney
CPT/HCPCS: 99214; G2211

== ENCOUNTER → 2024-04-03 13:51 | Outpatient (BNVA) | payer MEDICARE, MEDICAID, SELFPAY | PROVIDERS: PCP Family Medicine; Visit Provider Urology ==

== ENCOUNTER 2024-04-09 15:29 | Outpatient (AMB) | payer MEDICARE, MEDICAID, SELFPAY ==
--- OUTSIDE RECORDS SUMMARY | 2024-04-09 15:40 | XMS_ITS | Continuity of Care Document ---
Author Organization [facility] Address [address] [facility], [address], [address] [place] [address]- Care Team Providers Care Chief Lifestyle Officer Name Role Phone Juan Manuel LIM, Kristen December Karla Primary Care Physic juan alberto En[place] [facility] [place](s[place] 03/07/24 - 04/06/24 [facility] [address] [place] [address], [address] [place] [id number] Attending Physician: Alissa Gannon Admitting Physician: AdmtrAlissa Referring Physician: Admtr, Ar8 Allergies, Adverse Reactions, Alerts Substance Reaction Severity Status morphine hives, SOB Active Wellbutrin rash Active contrast media (iodine-based) itching throughout body Active penicillins hive Active Reglan Active cannabis (Schedule I substance) itching/vomiting Active Other Environmental Allergy mercury-fillings Active Immunizations Given and Recorded Vaccine Date Status Refusal Reason SARS-CoV-2(COVID-19)mRNA-LNP vac(nee793) 10/19/23 Recorded SARS-CoV-2(COVID-19)mRNA-LNP vac(zon522) 07/03/23 Recorded RSV vaccine preF3, recombinant 05/19/23 [...] influenza virus vaccine, inactivated 04/26/09 Arnoldo rded CDJB-LdM-5sTPM 12y+ bivalent booster vax 01/23/23 Recorded TTHB-XaT-5nOXQ 12y+ bivalent booster vax 05/12/22 Recorded pneumococcal 20-valent conjugate vaccine 05/30/22 Recorded SARS-CoV-2 mRNA (jyqcqbo-bekz-gfqou) vax 03/10/22 Recorded SARS-CoV-2 mRNA (kbfwxec-sewe-uzxui) vax 10/04/21 Recorded SARS-CoV-2 (COVID-19) mRNA BNT-162b2 [...] 1 Refills, Maintenance, 08/01/23 13:53:00 EST, Tablet, [facility]/pharmacy #[id number], Partial fill upon patient request if the prescription is for a schedule II opioid drug., 155, cm, 05/28/23 11:02:00 E... Start Date: 08/01/23 Status: Ordered baclofen 20 mg oral tablet 20 mg, 1, tablet, By Mouth, 3 times a day, # 270 tablet, Refills 3, Tot. Refills 3, Maintenance, 03/07/24 13:37:00 EDT, Route to Pharmacy Electronically, [facility], Partial fill upon patient request if the prescription is for a... Start Date: 03/07/24 Stop Date: 03/02/25 Status: Ordered bifidobacterium-lactobacillus oral tablet 2 tablet, By Mouth, 2 times a day, [facility] Brand please (Senior Wellness), # 360 tablet, 3 Refills, Maintenance, 08/11/21 17:02:00 EST, Tablet, [facility]/pharmacy #[id number], Partial fill upon patient request if the prescription is for a schedule II opioid drug., 2... Start Date: 08/11/21 Stop Date: 08/06/22 Status: Ordered calcium carbonate 600 mg oral tablet 1 tablet = 600 mg, By Mouth, 2 times a day, # 180 tablet, 2 Refills, Maintenance, 01/06/23 14:02:00EDT, Tablet, [facility]/pharmacy #[id number], Partial fill upon patient request if the prescription is for a schedule II opioid drug., 155, cm, 02/23/22 8:04:00 EDT... Start Date: 01/06/23 Stop Date: 10/03/23 Status: Ordered Centrum Silver Ultra Women's oral tablet 1 tablet, By Mouth, Daily, 0 Refills, Maintenance, 07/09/18 8:43:55 EST Start Date: 07/09/18 Status: Ordered [facility] SENIOR PROBIOTIC CAPSULE TAKE 2 CAPSULES BY MOUTH TWICE A DAY Start Date: 11/01/21 Status: Ordered Enemeez Mini 283 mg rectal enema See Instructions, USE RECTALLY EVERY DAY NEEDED FOR CONSTIPATION, # 450 mL, 5 Refills, 03/02/22 8:08:00 EDT, [facility]/pharmacy #[id number], 155, cm, 02/23/22 [...] 02/28/24 11:11:00 EDT, Route to Pharmacy Electronically, [facility], 155, cm, 02/18/24 11:04:00EDT, Height Start Date: 02/28/24 Status: Ordered gabapentin 300 mg oral capsule 300 mg, 1, capsule, By Mouth, 3 times a day, # 270 capsule, Refills 3, Tot. Refills 3, Maintenance,03/07/24 13:36:00 EDT, Route to Pharmacy Electronically, [facility], Partialfill upon patient request if the prescription is fo... Start Date: 03/07/24 Stop Date: 03/02/25 Status: Ordered Juzo Compression Hose Juzo Compression Hose, See Instructions, # 2 each, Refills 2, Tot. Refills 2, Maintenance, Juzo Compression Hose 2 pairs vkgot-gmj-ufta Soft Knee FF Petite 20-30 mmHg Silicone, Black Stock Code [id number] I I I Part #[id number] Size I I I SKU... Start Date: 03/12/23 Status: Ordered levothyroxine 0.088 mg oral tablet 1 tablet = 88 mcg, By Mouth, Daily, # 90 tablet, 1 Refills, Maintenance, 03/30/24 19:17:00 EDT, Tablet, [facility], Partial fill upon patient request if the prescription is fora schedule II opioid drug., 155, cm, 03/10/24 10:57... Start Date: 03/30/24 Status: Ordered lisinopril 5 mg oral tablet 1, tablet, By Mouth, Daily, # 90 tablet, Refills 1, Tot. Refills 1, Maintenance, 10/01/23 17:15:00 EST, Route to Pharmacy Electronically, [facility]/pharmacy #[id number], 155, cm, 05/28/23 11:02:00 EDT, Height, 93.4, kg, 11/01/21 16:52:00 EDT, Dry Weight Start Date: 10/01/23 Status: Ordered Mapap 500 mg oral capsule See Instructions, TAKE 2 CAPSULES BY MOUTH 4 TIMES A DAY NEEDED FOR PAIN, # 480 capsule, 0 Refills, Maintenance, 11/12/23 15:45:00 EDT, [facility]/pharmacy #[id number], 155, cm, 05/28/23 11:02:00 EDT, Height Start Date: 11/12/23 Status: Ordered Power [place] Lift with [place] split-leg sling Power [place] Lift with [place] split-leg sling, See Instructions, # 1 each, [...] 04/14/24 15:39:00 EDT, 03/14/24 15:39:00 EDT, Cream, [facility]/pharmacy #[id number], Partial fill upon [...] 90 capsule, 1 Refills, 12/11/22 15:16:00 EDT, [facility]/pharmacy #[id number], 155, cm, 10/10/22 13:40:00 EST, Height, 93.4, kg, 11/01/21 16:52:00 EDT, Dry Weight Start Date: 12/11/22 Status: Ordered Xarelto 10 mg oral tablet 1 tablet = 10 mg, By Mouth, Daily, # 90 tablet, 3 Refills, Maintenance, 02/26/24 11:39:00 EDT, Tablet, [facility], Partial fill upon patient request if the prescription is for a schedule II opioid drug., 155, cm, 02/18/24 11:04:... Start Date: 02/26/24 Stop Date: 02/20/25 Status: Ordered Xarelto 20 mg oral tablet See Instructions, TAKE 1 TABLET DAILY AT SUPPER, # 90 tablet, 3 Refills, Maintenance, 01/17/23 9:37:00 EDT, [facility], 155, cm, 10/10/22 [...] Team Personnel Name: Juliann Rich RN Position: [facility] RN Member Role: Primary Care Nurse Name: Alejandro CENTENO, Elsa Peterson Position: [facility] Outreach Member Role: Primary Care Nurse Address: Address: [address] [place] [address]- [place] Name: Emma Mendoza RN Position: [facility] AMB Nurse Member Role: Primary Care Nurse Name: Juan Manuel LIM, Kristen Acosta Position: [facility] Physician - Primary Care Member Role: PCP Address: Address: [address] [place] [address]- Name: Anette Soler RN Position: [facility] Onco RN Member Role: Primary Care Nurse Name: Komal Goodrich Position: [facility] Outreach Member Role: Lifetime Consulting Physician Name: Godfrey Cano Position: [facility] RN Member Role: Primary Care Nurse Care Team Related Persons Name: DIOMEDES WARNER Address: home [address] [place] [address] Name: MOO HOWELL Address: [address] [place] [address] Name: MARLON GENTILE
--- NOTE | 2024-04-23 22:51 | A.OFFVIS_ITS ---
Intake Visit Reasons: indwelling catheter Allergies mercury (elemental) Allergy (Severe, Verified 03/18/24 12:09) Anaphylaxis Penicillins Allergy (Severe, Verified 03/18/24 12:09) Hives bupropion [From Wellbutrin] Allergy (Intermediate, Verified 03/18/24 12:09) Hives Iodinated Contrast Media [IV Contrast Dye] Allergy (Intermediate, Verified 03/18/24 12:09) Hives morphine Allergy (Intermediate, Verified 03/18/24 12:09) Hives metoclopramide [From Reglan] Adverse Reaction (Intermediate, Verified 03/18/24 12:09) Parkinson syndrome HPI HPI indwelling catheter: Details: She has enterococcus faecalis in blood. SHe is finishing Daptomycin on 04/16. She has no complaints [facility] Medical History (Updated 04/23/24 @ 22:54 by Willow Stephens MD) Bacteremia due to Enterococcus Recurrent UTI (urinary tract infection) Neurogenic bladder Urinary tract infection Wheelchair dependence Sacral decubitus ulcer Pulmonary emboli Cardiac arrest History of trigeminal neuralgia COVID-19 vaccine series completed Osteoporosis Neurogenic urinary bladder disorder NENO (obstructive sleep apnea) Parkinson's variant of multiple system atrophy Thyroid disease History of neurogenic bladder History of MRSA infection Hx of lymphoma Arthritis Back pain Hx pulmonary embolism DVT (deep venous thrombosis) Anemia Hiatal hernia Tran catheter in place Bladder stones Multiple sclerosis CVA (cerebral vascular accident) Myocardial infarction HTN (hypertension) Painful bladder spasm Surgical History Hx of hysterectomy Hx of lumpectomy Hx of vitrectomy History of intraocular lens implant Hx of adenoidectomy Hx of tonsillectomy Hx of laminectomy History of cystoscopy History of biopsy of bladder History of bladder surgery H/O colonoscopy Social History Household Members: None Housing: Apartment Are you a primary med care manager to a significant other at home: No Do you presently have visiting nurse or other home services: Yes Patient Tobacco Use Status: Never used Tobacco Second Hand Smoke Exposure: No Advance Directives Date on File: 07/05/20 service: No Current occupational status: disabled Review of Systems Const All systems reviewed & are unremarkable except as noted in HPI and below Physical Exam Const General: cooperative Orientation/consciousness: patient oriented x3 HEENT Head: Yes normal to inspection Mouth: Normal oral and palatal mucosa present Eyes General: appearance normal, both eyes and all related structures Pupils: Equal, round and reactive pupils present Resp Effort & Inspection: normal respiratory effort Cardio Rate: regular rate Rhythm: regular rhythm GI Palpation (GI): Soft to palpation and nontender General: Yes no CVA tenderness Back/Spine/Pelvis Back: no CVA tenderness Skin General skin exam: no rashes or lesions noted Neuro General: patient oriented x3 Cranial nerves: Yes CN's II-XII intact bilaterally and Yes Equal, round and reactive pupils present Extrem General: Yes normal to inspection Psych Appearance: grossly normal Assessment & Plan Assessment & Plan (1) Bacteremia due to Enterococcus: Comment: She is doing well Code(s): R78.81 - Bacteremia; B95.2 - Enterococcus as the cause of diseases classified elsewhere Category: Medical Plan: Stop Daptomycin on 04/16. Follow Urology as well as PCP. No prophylactic antibiotics. Orders: Orders IR cvc remove any age 0804/09/24 N39.0 - Urinary tract infection, site not specified Coding Level of Care Code Est Pt Level 3 (24908) Diagnoses Bacteremia due to Enterococcus R78.81; B95.2
== END 2024-04-09 16:41 | disposition home or self-care (01) ==
LOC: HO.HID 15:29
PROVIDERS: PCP Family Medicine; Visit Provider Internal Medicine
DX: R78.81 Bacteremia (principal); B95.2 Enterococcus as the cause of diseases classified elsewhere
CPT/HCPCS: 99213

== ENCOUNTER → 2024-04-09 15:29 | Outpatient (BNVA) | payer MEDICARE, MEDICAID, SELFPAY | PROVIDERS: PCP Family Medicine; Visit Provider Internal Medicine | DX: R78.81 Bacteremia (principal); B95.2 Enterococcus as the cause of diseases classified elsewhere; N39.0 Urinary tract infection, site not specified | CPT/HCPCS: 99212 ==

== ENCOUNTER 2024-06-06 10:02 | Outpatient (AMB) | payer MEDICARE, MEDICAID, SELFPAY ==
--- NOTE | 2024-06-06 10:03 | A.OFFVIS_ITS ---
Intake Visit Reasons: 6m follow up Intake Note: Patient is present for Telephone Follow up Urology Med: Estradiol, Vitamin C Antibiotic Allergy: Penicillins Blood Thinner: Xarelto Allergies mercury (elemental) Allergy (Severe, Verified 06/06/24 10:03) Anaphylaxis Penicillins Allergy (Severe, Verified 06/06/24 10:03) Hives bupropion [From Wellbutrin] Allergy (Intermediate, Verified 06/06/24 10:03) Hives Iodinated Contrast Media [IV Contrast Dye] Allergy (Intermediate, Verified 06/06/24 10:03) Hives morphine Allergy (Intermediate, Verified 06/06/24 10:03) Hives metoclopramide [From Reglan] Adverse Reaction (Intermediate, Verified 06/06/24 10:03) Parkinson syndrome HPI Comments Details: Michelle is a pleasant female. She is a patient of Dr. Jean Baptiste. She is seen for following urologic conditions - multiple sclerosis - botox with indwelling catheter - neurogenic bladder - recurring UTIs - urosepsis after upper tract manipulation Telemedicine evaluation 15 minute consultation [employer] uday Video attempted Would stay on vitamin C and methanamine Switched to MDCapsule VNA - uses Duette catheter 18 Finnish every 3 weeks - which appears to protect bladder - uses irrigation every other day Responded well to daptomycin However will require mid line if happens Nephrolithiasis 03/05 Stent placed - left side 04/05 stent removal Had undergone procedure for stone - urosepsis presentation in February with ureteric stone Presented with urosepsis after 24 hrs with bladder spasms Culture enterococcus which was levaquin resistance On daptomycin for 4 weeks Neurogenic Bladder: Recurring urinary tract infection, bladder spasm Previously had Pseudomonas infection responsive to ciprofloxacin UTI appears to be decreasing with combination of Estrace, bladder irrigation - gram positive cocci Urinary retention initially found longstanding history. Diagnosed with multiple sclerosis approximately 15 years ago. Had been followed by Dr. Avina for many years Initially managed with clean intermittent catheterization Subsequently managed with indwelling Tran catheter Had been discussion of suprapubic tube placement however VNA nurses prevent this recurring uti 05/[address] Spencer and cystoscopy with removal of bladder stones - 12/01 cystoscopy Botox biopsy performed with chronic cystitis - 12/04 botox performed Botox Initial 03/01, 07/02, 10/31, 08/02, 05/04 200 units, 11/03 200 units Urine cultures - Pseudomonas fluoroquinolone resistant, citrobacter amp/cefazolin resistant Can only tolerate short course of fluroquinolones Has standing order for urine culture collection through VNA Previously used fosfomycin for catheter changes [facility] Medical History (Updated 04/23/24 @ 22:54 by Willow Stephens MD) Bacteremia due to Enterococcus Recurrent UTI (urinary tract infection) Neurogenic bladder Urinary tract infection Wheelchair dependence Sacral decubitus ulcer Pulmonary emboli Cardiac arrest History of trigeminal neuralgia COVID-19 vaccine series completed Osteoporosis Neurogenic urinary bladder disorder NENO (obstructive sleep apnea) Parkinson's variant of multiple system atrophy Thyroid disease History of neurogenic bladder History of MRSA infection Hx of lymphoma Arthritis Back pain Hx pulmonary embolism DVT (deep venous thrombosis) Anemia Hiatal hernia Tran catheter in place Bladder stones Multiple sclerosis CVA (cerebral vascular accident) Myocardial infarction HTN (hypertension) Painful bladder spasm Surgical History Hx of hysterectomy Hx of lumpectomy Hx of vitrectomy History of intraocular lens implant Hx of adenoidectomy Hx of tonsillectomy Hx of laminectomy History of cystoscopy History of biopsy of bladder History of bladder surgery H/O colonoscopy Social History Household Members: None Housing: Apartment Are you a primary pharmacy customer care specialist to a significant other at home: No Do you presently have visiting nurse or other home services: Yes Patient Tobacco Use Status: Never used Tobacco Second Hand Smoke Exposure: No Advance Directives Date on File: 07/05/20 service: No Current occupational status: disabled Review of Systems Const All systems reviewed & are unremarkable except as noted in HPI and below Reports no additional complaints Resp Reports no additional complaints GI Reports no additional complaints Reports as per HPI Musc Reports no additional complaints Physical Exam Telemedicine evaluation Appropriate responses Regular breathing rate and rhythm HEENT Head: Yes normal to inspection Ears: hearing grossly normal bilaterally Eyes General: appearance normal, both eyes and all related structures Neck Neck: Yes normal visual inspection Chest Chest palpation & inspection: normal inspection of the chest Resp Effort & Inspection: normal respiratory effort and able to speak in complete sentences Telehealth Telehealth Location of provider rendering services: practice address Location of patient: address on file Patient Identification confirmed using: Name, : Yes Telehealth method: video Patient verbally consented to treatment: Yes Patient verbally consented to billing insurance company: Yes Patient informed of any privacy concerns related to visit: Yes Assessment & Plan Assessment & Plan (1) Recurrent UTI (urinary tract infection): Code(s): N39.0 - Urinary tract infection, site not specified Category: Medical (2) Neurogenic bladder: Code(s): N31.9 - Neuromuscular dysfunction of bladder, unspecified Category: Medical Plan continue with estrace, vit C and methanamine Patient Instructions: Imaging studies, laboratory and physical exam results were discussed and reviewed in detail. No major barriers to patient understanding were identified. An opportunity to ask questions regarding the treatment plan was provided. All questions were answered. The patient expressed understanding and agreement with the above treatment plan. The patient is aware they should contact our office by phone for worsening of their current condition or the appearance of new urologic symptoms. Compliance is encouraged with any medications and followup testing that is ordered. It is a privilege to participate in the urologic care of your patient. If you have any questions or concerns regarding treatment for the above conditions, or other urologic issues, please do not hesitate to contact me. The office telephone contact is [phone]. This note is constructed using voice recognition software. While every effort has been made to ensure accuracy boom storage errors may have been included. Yours sincerely, Dr Gage Bass MD, [facility] - Urology Providers of Expert, Compassionate Care for the Genitourinary System Coding Level of Care Code Tele Est Pt Level 3 (42790) Diagnoses Recurrent UTI (urinary tract infection) N39.0 Neurogenic bladder N31.9
--- OUTSIDE RECORDS SUMMARY | 2024-06-06 10:08 | XMS_ITS | Continuity of Care Document ---
Author Organization [facility] Address [address] [place] [address]- Care Team Providers Care Virtualization Architect Name Role Phone Juan Manuel LIM, Kristen Acosta Primary Care Physic juan alberto Encounter [facility] Date(s): 03/14/24 - 04/13/24 [facility] [address] [place], [place] [address] Allergies, Adverse Reactions, Alerts Substance Reaction Severity Status morphine hives, SOB Active penicillins hive Active Wellbutrin rash Active Reglan Active cannabis (Schedule I substance) itching/vomiting Active Other Environmental Allergy mercury-fillings Active contrast media (iodine-based) itching throughout body Active Immunizations Given and Recorded Vaccine Date Status Refusal Reason SARS-CoV-2(COVID-19)mRNA-LNP vac([id number]) 10/19/23 Recorded SARS-CoV-2(COVID-19)mRNA-LNP vac([id number]) 07/03/23 Recorded RSV vaccine preF3, recombinant 05/19/23 [...] influenza virus vaccine, inactivated 04/26/09 Arnoldo rded [id number] 12y+ bivalent booster vax 01/23/23 Recorded [id number] 12y+ bivalent booster vax 05/12/22 Recorded pneumococcal 20-valent conjugate vaccine 05/30/22 Recorded SARS-CoV-2 mRNA (cgmemwh-bfwn-kuxgj) vax 03/10/22 Recorded SARS-CoV-2 mRNA (qerzkpo-rfio-yoqhq) vax 10/04/21 Recorded SARS-CoV-2 (COVID-19) mRNA BNT-162b2 [...] Refills, Maintenance, 08/01/23 13:53:00 EST, Tablet, [facility]/pharmacy #[id number], Partial fill upon patient [...] By Mouth, 2 times a day, [facility] Brand please (Senior Wellness), # 360 tablet, 3 Refills, Maintenance, 08/11/21 17:02:00 EST, Tablet, [facility]/pharmacy #[id number], Partial fill upon patient request if the prescription is for a schedule II opioid drug., 2... Start Date: 08/11/21 Stop Date: 08/06/22 Status: Ordered calcium carbonate 600 mg oral tablet 1 tablet = 600 mg, By Mouth, 2 times a day, # 180 tablet, 2 Refills, Maintenance, 01/06/23 14:02:00EDT, Tablet, [facility]/pharmacy #[id number], Partial fill upon patient request if the prescription is for a schedule II opioid drug., 155, cm, 02/23/22 8:04:00 EDT... Start Date: 01/06/23 Stop Date: 10/03/23 Status: Ordered Centrum Silver Ultra Women's oral tablet 1 tablet, By Mouth, Daily, 0 Refills, Maintenance, 07/09/18 8:43:55 EST Start Date: 07/09/18 Status: Ordered [facility] SENIOR PROBIOTIC CAPSULE TAKE 2 CAPSULES BY MOUTH TWICE A DAY Start Date: 11/01/21 Status: Ordered Enemeez Mini 283 mg rectal enema See Instructions, USE RECTALLY EVERY DAY NEEDED FOR CONSTIPATION, # 450 mL, 5 Refills, 03/02/22 8:08:00 EDT, [facility]/pharmacy #[id number], 155, cm, 02/23/22 8:04:00 [...] 02/28/24 11:11:00 EDT, Route to Pharmacy Electronically, [facility], 155, cm, 02/18/24 11:04:00EDT, Height Start Date: 02/28/24 Status: Ordered gabapentin 300 mg oral capsule 300 mg, 1, capsule, By Mouth, 3 times a day, # 270 capsule, Refills 3, Tot. Refills 3, Maintenance,03/07/24 13:36:00 EDT, Route to Pharmacy Electronically, [facility], Partialfill upon patient request if the prescription is fo... Start Date: 03/07/24 Stop Date: 03/02/25 Status: Ordered Juzo Compression Hose Juzo Compression Hose, See Instructions, # 2 each, Refills 2, Tot. Refills 2, Maintenance, Juzo Compression Hose 2 pairs [id number]-[id number] Soft Knee FF Petite 20-30 mmHg Silicone, Black Stock Code [id number] I I I Part #[id number] Size I I I SKU... Start Date: 03/12/23 Status: Ordered levothyroxine 0.088 mg oral tablet 1 tablet = 88 mcg, By Mouth, Daily, # 90 tablet, 1 Refills, Maintenance, 03/30/24 19:17:00 EDT, Tablet, [facility], Partial fill upon patient request if the prescription is fora schedule II opioid drug., 155, cm, 03/10/24 10:57... Start Date: 03/30/24 Status: Ordered lisinopril 5 mg oral tablet 1, tablet, By Mouth, Daily, # 90 tablet, Refills 1, Maintenance, 04/10/24 8:59:00 EDT, Route to Pharmacy Electronically, [facility], 155, cm, 04/02/24 10:59:00 EDT, Height Start Date: 04/10/24 Status: Ordered Mapap 500 mg oral capsule See Instructions, TAKE 2 CAPSULES BY MOUTH 4 TIMES A DAY NEEDED FOR PAIN, # 480 capsule, 0 Refills, Maintenance, 11/12/23 15:45:00 EDT, [facility]/pharmacy #[id number], 155, cm, 05/28/23 11:02:00 EDT, Height Start Date: 11/12/23 Status: Ordered Power [place] Lift with [place] split-leg sling Power [place] Lift with [place] split-leg sling, See Instructions, # 1 each, [...] 04/14/24 15:39:00 EDT, 03/14/24 15:39:00 EDT, Cream, [id number], Partial fill upon patient request [...] capsule, 1 Refills, 12/11/22 15:16:00 EDT, [facility]/pharmacy #[id number], 155, cm, 10/10/22 13:40:00 EST, Height, 93.4, kg, 11/01/21 16:52:00 EDT, Dry Weight Start Date: 12/11/22 Status: Ordered Xarelto 10 mg oral tablet 1 tablet = 10 mg, By Mouth, Daily, # 90 tablet, 3 Refills, Maintenance, 02/26/24 11:39:00 EDT, Tablet, [facility], Partial fill upon patient request if the prescription is for a schedule II opioid drug., 155, cm, 02/18/24 11:04:... Start Date: 02/26/24 Stop Date: 02/20/25 Status: Ordered Xarelto 20 mg oral tablet See Instructions, TAKE 1 TABLET DAILY AT SUPPER, # 90 tablet, 3 Refills, Maintenance, 01/17/23 9:37:00 EDT, [facility], 155, cm, 10/10/22 [...] Nurse Name: Alejandro CENTENO, Elsa Peterson Position: [facility] Outreach Member Role: Primary Care Nurse Address: Address: [address] [place] [address]- [place] Name: Emma Mendoza RN Position: [facility] AMB Nurse Member Role: Primary Care Nurse Name: Juan Manuel LIM, Kristen Acosta Position: [facility] Physician - Primary Care Member Role: PCP Address: Address: [address] [place] [address]- Name: Anette Soler RN Position: [facility] Onco RN Member Role: Primary Care Nurse Name: Komal Goodrich Position: [facility] Outreach Member Role: Lifetime Consulting Physician Name: Godfrey Cano Position: [facility] RN Member Role: Primary Care Nurse Care Team Related Persons Name: DIOMEDES WARNER Address: home [address] [place] [address] Name: MOO HOWELL Address: home [address] [place] [address] Name: MARLON GENTILE
--- OUTSIDE RECORDS SUMMARY | 2024-06-06 10:09 | XMS_ITS | Continuity of Care Document ---
Author Organization [facility] Address [address] [place] [address]- Care Team Providers Care Tilt Tray Driver Name Role Phone Juan Manuel LIM, Kristen Acosta Primary Care Physic juan alberto Encounter [facility] Date(s): 03/27/24 - 04/26/[address] [address]- Allergies, Adverse Reactions, Alerts Substance Reaction Severity Status morphine hives, SOB Active penicillins hive Active Wellbutrin rash Active Reglan Active cannabis (Schedule I substance) itching/vomiting Active Other Environmental Allergy mercury-fillings Active contrast media (iodine-based) itching throughout body Active Immunizations Given and Recorded Vaccine Date Status Refusal Reason SARS-CoV-2(COVID-19)mRNA-LNP vac([id number]) 10/19/23 Recorded SARS-CoV-2(COVID-19)mRNA-LNP vac(hgq515) 07/03/23 Recorded RSV vaccine preF3, recombinant 05/19/23 [...] influenza virus vaccine, inactivated 04/26/09 Arnoldo rded [id number] 12y+ bivalent booster vax 01/23/23 Recorded [id number] 12y+ bivalent booster vax 05/12/22 Recorded pneumococcal 20-valent conjugate vaccine 05/30/22 Recorded SARS-CoV-2 mRNA (besxpyz-okbb-podjb) vax 03/10/22 Recorded SARS-CoV-2 mRNA (kecaahy-faqr-xzqng) vax 10/04/21 Recorded SARS-CoV-2 (COVID-19) mRNA BNT-162b2 [...] Refills, Maintenance, 08/01/23 13:53:00 EST, Tablet, [facility]/pharmacy #[id number], Partial fill upon patient request if the prescription is for a schedule II opioid drug., 155, cm, 05/28/23 11:02:00 E... Start Date: 08/01/23 Status: Ordered baclofen 20 mg oral tablet 20 mg, 1, tablet, By Mouth, 3 times a day, # 270 tablet, Refills 3, Tot. Refills 3, Maintenance, 03/07/24 13:37:00 EDT, Route to Pharmacy Electronically, [facility], Partial fill upon patient request [...] opioid drug. Start Date: 11/01/21 Status: Ordered fenofibrate 40 mg oral tablet 1 tablet = 40 mg, By Mouth, Daily, # 90 tablet, 3 Refills, Maintenance, 04/22/24 12:28:00 EDT, [facility]/pharmacy #[id number], Partial fill upon patient request if the prescription is for a schedule II opioid drug., 155, cm, 04/22/24 11:22:00 EDT, Height Start Date: 04/22/24 Status: Ordered fosfomycin 3 g oral granule [...] 2, Maintenance, Juzo Compression Hose 2 pairs ihoab-ste-vvof Soft Knee FF Petite 20-30 mmHg Silicone, Black Stock Code [id number] I I I Part #[id number] Size I I I SKU... Start Date: 03/12/23 Status: Ordered levothyroxine 0.088 mg oral tablet 1 tablet = 88 mcg, By Mouth, Daily, # 90 tablet, 1 Refills, Maintenance, 03/30/24 19:17:00 EDT, Tablet, [facility], Partial fill upon patient request if the prescription is fora schedule II opioid drug., 155, cm, 03/10/24 10:57... Start Date: 03/30/24 Status: Ordered lisinopril 5 mg oral tablet 1, tablet, By Mouth, Daily, # 90 tablet, Refills 1, Maintenance, 04/10/24 8:59:00 EDT, Route to Pharmacy Electronically, [facility], 155, cm, 04/02/24 10:59:00 EDT, Height Start Date: 04/10/24 Status: Ordered Mapap 500 mg oral capsule See Instructions, TAKE 2 CAPSULES BY MOUTH 4 TIMES A DAY NEEDED FOR PAIN, # 480 capsule, 0 Refills, Maintenance, 04/15/24 13:40:00 EDT, [facility]/pharmacy #[id number], 155, cm, 04/02/24 10:59:00 EDT, Height Start Date: 04/15/24 Status: Ordered Power [place] Lift with [place] split-leg sling Power [place] Lift with [place] split-leg sling, See Instructions, # 1 each, [...] written Brand name only, # 56 tablet, 1 Refills, Hard Stop 06/10/24 13:43:00 EDT, 04/15/24 13:43:00 EDT, Tablet, [facility]/pharmacy #[id number], Part... Start Date: 04/15/24 Stop Date: 06/10/24 Status: Ordered Repair for hospital bed Repair [...] Refills, Maintenance, 02/26/24 11:39:00 EDT, Tablet, [facility], Partial fill upon patient request if [...] Confirmed Active Excessive daytime sleepiness Confirmed Active H/O: stroke Confirmed Active H/O osteopenia Confirmed Active Hiatal hernia without gangrene and obstruction Confirmed Active History of deep vein thrombosis (DVT) of lower extremity Confirmed Active Hypertension Confirmed Active Hypothyroidism Confirmed [...] Nurse Name: Alejandro CENTENO, Elsa Peterson Position: [facility] Outreach Member Role: Primary Care Nurse Address: Address: [address] [place] [address]- Name: Emma Mendoza RN Position: [facility] AMB Nurse Member Role: Primary Care Nurse Name: Juan Manuel LMI, Kristen Acosta Position: [facility] Physician - Primary Care Member Role: PCP Address: Address: [address] [place] [address]- Name: Anette Soler RN Position: [facility] Onco RN Member Role: Primary Care Nurse Name: Komal Goodrich Position: [facility] Outreach Member Role: Lifetime Consulting Physician Name: Godfrey Cano Position: [facility] RN Member Role: Primary Care Nurse Care Team Related Persons Name: DIOMEDES WARNER Address: [address] [place] [address] Name: MOO HOWELL Address: [address] [place] [address] Name: MARLON GENTILE
--- OUTSIDE RECORDS SUMMARY | 2024-06-06 10:09 | XMS_ITS | Continuity of Care Document ---
Author Organization [facility] Address [address] [place] [address]- Care Team Providers Care Computer Terminal Operator Name Role Phone Juan Manuel LIM, Kristen Acosta Primary Care Physic juan alberto Encounter [facility] Date(s): 04/22/24 - 04/29/24 [facility] [address] [place] [address]- [place] Encounter Diagnosis Hypomagnesemia(Discharge Diagnosis) - 04/22/24 Chronic saddle pulmonary embolism(Discharge Diagnosis) - 04/22/24 Hypertriglyceridemia(Discharge Diagnosis) - 04/22/24 Hyperglycemia(Discharge Diagnosis) - 04/22/24 Paraplegia(Discharge Diagnosis) - 04/22/24 Multiple sclerosis(Discharge Diagnosis) - 04/22/24 Pressure ulcer, hip(Discharge Diagnosis) - 04/22/24 Impacted cerumen of left ear(Discharge Diagnosis) - 04/22/24 Attending Physician: Juan Manuel LIM, Kristen Acosta Allergies, Adverse Reactions, Alerts Substance Reaction Severity Status morphine hives, SOB Active penicillins hive Active Wellbutrin rash Active Reglan Active cannabis (Schedule I substance) itching/vomiting Active Other Environmental Allergy mercury-fillings Active contrast media (iodine-based) itching throughout body Active Immunizations Given and Recorded Vaccine Date Status Refusal Reason SARS-CoV-2(COVID-19)mRNA-LNP vac([id number]) 10/19/23 Recorded SARS-CoV-2(COVID-19)mRNA-LNP vac([id number]) 07/03/23 Recorded RSV vaccine preF3, recombinant 05/19/23 [...] influenza virus vaccine, inactivated 04/26/09 Arnoldo rded [id number] 12y+ bivalent booster vax 01/23/23 Recorded [id number]-TaA-2aLGY 12y+ bivalent booster vax 05/12/22 Recorded pneumococcal 20-valent conjugate vaccine 05/30/22 Recorded SARS-CoV-2 mRNA (lbrljvd-fkak-wdlbd) vax 03/10/22 Recorded SARS-CoV-2 mRNA (ovrssor-adcb-fgalq) vax 10/04/21 Recorded SARS-CoV-2 (COVID-19) mRNA BNT-162b2 [...] Refills, Maintenance, 08/01/23 13:53:00 EST, Tablet, [facility]/pharmacy [...] 03/07/24 13:37:00 EDT, Route to Pharmacy Electronically, [facility] [...] tablet, 3 Refills, Maintenance, 04/22/24 12:28:00 EDT, [facility]/pharmacy #[id number], Partial [...] 02/28/24 11:11:00 EDT, Route to Pharmacy Electronically, [facility], 155, cm, 02/18/24 11:04:00EDT, Height Start Date: 02/28/24 Status: Ordered gabapentin 300 mg oral capsule 300 mg, 1, capsule, By Mouth, 3 times a day, # 270 capsule, Refills 3, Tot. Refills 3, Maintenance,03/07/24 13:36:00 EDT, Route to Pharmacy Electronically, [facility], Partialfill upon patient request if the prescription is fo... Start Date: 03/07/24 Stop Date: 03/02/25 Status: Ordered Juzo Compression Hose Juzo Compression Hose, See Instructions, # 2 each, Refills 2, Tot. Refills 2, Maintenance, Juzo Compression Hose 2 pairs rszms-wkr-tfui Soft Knee FF Petite 20-30 mmHg Silicone, Black Stock Code [id number] I I I Part #[id number] Size I I I SKU... Start Date: 03/12/23 Status: Ordered levothyroxine 0.088 mg oral tablet 1 tablet = 88 mcg, By Mouth, Daily, # 90 tablet, 1 Refills, Maintenance, 03/30/24 19:17:00 EDT, Tablet, [facility], Partial fill upon patient request if the prescription is fora schedule II opioid drug., 155, cm, 03/10/24 10:57... Start Date: 03/30/24 Status: Ordered lisinopril 5 mg oral tablet 1, tablet, By Mouth, Daily, # 90 tablet, Refills 1, Maintenance, 04/10/24 8:59:00 EDT, Route to Pharmacy Electronically, [facility], 155, cm, 04/02/24 10:59:00 EDT, Height Start Date: 04/10/24 Status: Ordered Mapap 500 mg oral capsule See Instructions, TAKE 2 CAPSULES BY MOUTH 4 TIMES A DAY NEEDED FOR PAIN, # 480 capsule, 0 Refills, Maintenance, 04/15/24 13:40:00 EDT, [facility]/pharmacy #[id number], 155, cm, 04/02/24 10:59:00 EDT, Height Start Date: 04/15/24 Status: Ordered Power [place] Lift with [place] split-leg sling Power [place] Lift with [place] split-leg sling, See Instructions, # 1 each, [...] 06/10/24 13:43:00 EDT, 04/15/24 13:43:00 EDT, Tablet, [facility]/pharmacy #[id number], Part... Start Date: 04/15/24 Stop Date: [...] capsule, 1 Refills, 12/11/22 15:16:00 EDT, [facility]/pharmacy #[id number], 155, cm, 10/10/22 13:40:00 EST, Height, 93.4, kg, 11/01/21 16:52:00 EDT, Dry Weight Start Date: 12/11/22 Status: Ordered Xarelto 10 mg oral tablet 1 tablet = 10 mg, By Mouth, Daily, # 90 tablet, 3 Refills, Maintenance, 02/26/24 11:39:00 EDT, Tablet, [facility], Partial fill upon patient [...] Effective Dates Health Status Clinical Service Informant Paraplegia Discharge Diagnosis 04/22/24 Hypertriglyceridemia Discharge Diagnosis 04/22/24 Hyperglycemia Discharge Diagnosis 04/22/24 Hypomagnesemia Discharge Diagnosis 04/22/24 Chronic saddle pulmonary embolism Discharge Diagnosis 04/22/24 Multiple sclerosis Discharge Diagnosis 04/22/24 Pressure ulcer, hip Discharge Diagnosis 04/22/24 Impacted cerumen of left ear Discharge Diagnosis 04/22/24 Vital Signs Most recent to oldest [Reference Range]: 1 Height 155 cm (04/22/24 11:22 AM) Oxygen Saturation [94-100 %] 99 % (04/22/24 11:22 AM) Pulse Rate [55-90 bpm] 71 bpm (04/22/24 11:22 AM) Blood Pressure [90-138/55-84 mm Hg] 142/ 82mm Hg *H* (04/22/24 11:22 AM) Mode of Delivery (Oxygen) Room air (04/22/24 11:22 AM) Blood pressure sites Arm, right (04/22/24 11:22 AM) Social History Social History Type Response Smoking Status Never (less than 100 in lifetime) entered on: 10/31/21 Sex Patient Care team information Care Team Personnel Name: Juliann Rich RN Position: [facility] RN Member Role: Primary Care Nurse Name: Elsa Allen NP Position: [facility] Outreach Member Role: Primary Care Nurse Address: Address: [address] [place] [address]- [place] Name: Emma Mendoza RN Position: [facility] AMB Nurse Member Role: Primary Care Nurse Name: Juan Manuel LIM, Kristen Acosta Position: [facility] Physician - Primary Care Member Role: PCP Address: Address: [address] [place] [address]- [place] Name: Anette Soler RN Position: [facility] Onco RN Member Role: Primary Care Nurse Name: Komal Goodrich Position: [facility] Outreach Member Role: Lifetime Consulting Physician Name: Godfrey Cano Position: [facility] RN Member Role: Primary Care Nurse Care Team Related Persons Name: DIOMEDES WARNER Address: home [address] [place] [address] Name: MOO HOWELL Address: home [address] [place] [address] Name: MARLON GENTILE
--- OUTSIDE RECORDS SUMMARY | 2024-06-06 10:09 | XMS_ITS | Continuity of Care Document ---
Author Organization [facility] Address [address] [place] [address]- Care Team Providers Care Director Field Services Name Role Phone Juan Manuel LIM, Kristen Acosta Primary Care Physic juan alberto Encounter [facility] Date(s): 04/02/24 - 04/09/24 [facility] [address] [place] [address]- Attending Physician: Kristen Zambrano MD Allergies, Adverse Reactions, Alerts Substance Reaction Severity Status morphine hives, SOB Active penicillins hive Active Wellbutrin rash Active Reglan Active cannabis (Schedule I substance) itching/vomiting Active Other Environmental Allergy mercury-fillings Active contrast media (iodine-based) itching throughout body Active Immunizations Given and Recorded Vaccine Date Status Refusal Reason SARS-CoV-2(COVID-19)mRNA-LNP vac([id number]) 10/19/23 Recorded SARS-CoV-2(COVID-19)mRNA-LNP vac(hkt628) 07/03/23 Recorded RSV vaccine preF3, recombinant 05/19/23 [...] influenza virus vaccine, inactivated 04/26/09 Arnoldo rded [id number] 12y+ bivalent booster vax 01/23/23 Recorded JOQI-LgL-8vEGH 12y+ bivalent booster vax 05/12/22 Recorded pneumococcal 20-valent conjugate vaccine 05/30/22 Recorded SARS-CoV-2 mRNA (plczvcv-qwnc-sjyaq) vax 03/10/22 Recorded SARS-CoV-2 mRNA (mxyxozu-qojv-zldqe) vax 10/04/21 Recorded SARS-CoV-2 (COVID-19) mRNA BNT-162b2 [...] 1 Refills, Maintenance, 08/01/23 13:53:00 EST, Tablet, [facility]/pharmacy #[id number], Partial fill upon patient request if the prescription is for a schedule II opioid drug., 155, cm, 05/28/23 11:02:00 E... Start Date: 08/01/23 Status: Ordered baclofen 20 mg oral tablet 20 mg, 1, tablet, By Mouth, 3 times a day, # 270 tablet, Refills 3, Tot. Refills 3, Maintenance, 03/07/24 13:37:00 EDT, Route to Pharmacy Electronically, [facility], Partial fill upon patient request if the prescription is for a... Start Date: 03/07/24 Stop Date: 03/02/25 Status: Ordered bifidobacterium-lactobacillus oral tablet 2 tablet, By Mouth, 2 times a day, [facility] Brand please ([facility]), # 360 [...] tablet, 2 Refills, Maintenance, 01/06/23 14:02:00EDT, Tablet, [facility]/pharmacy #[id number], Partial fill [...] 450 mL, 5 Refills, 03/02/22 8:08:00 EDT, [facility]/pharmacy #[id number], 155, cm, 02/23/22 8:04:00 EDT, [...] 11:11:00 EDT, Route to Pharmacy Electronically, [facility], 155, cm, 02/18/24 11:04:00EDT, Height Start Date: 02/28/24 Status: Ordered gabapentin 300 mg oral capsule 300 mg, 1, capsule, By Mouth, 3 times a day, # 270 capsule, Refills 3, Tot. Refills 3, Maintenance,03/07/24 13:36:00 EDT, Route to Pharmacy Electronically, [facility], Partialfill upon patient request if the prescription is fo... Start Date: 03/07/24 Stop Date: 03/02/25 Status: Ordered Juzo Compression Hose Juzo Compression Hose, See Instructions, # 2 each, Refills 2, Tot. Refills 2, Maintenance, Juzo Compression Hose 2 pairs asruo-sii-jenc Soft Knee FF Petite 20-30 mmHg Silicone, Black Stock Code [id number] I I I Part #[id number] Size I I I SKU... Start Date: 03/12/23 Status: Ordered levothyroxine 0.088 mg oral tablet 1 tablet = 88 mcg, By Mouth, Daily, # 90 tablet, 1 Refills, Maintenance, 03/30/24 19:17:00 EDT, Tablet, [facility], Partial fill upon patient request if the prescription is fora schedule II opioid drug., 155, cm, 03/10/24 10:57... Start Date: 03/30/24 Status: Ordered lisinopril 5 mg oral tablet 1, tablet, By Mouth, Daily, # 90 tablet, Refills 1, Tot. Refills 1, Maintenance, 10/01/23 17:15:00 EST, Route to Pharmacy Electronically, [facility]/pharmacy #[id number], 155, cm, 05/28/23 11:02:00 EDT, Height, 93.4, kg, 11/01/21 16:52:00 EDT, Dry Weight Start Date: 10/01/23 Status: Ordered Mapap 500 mg oral capsule See Instructions, TAKE 2 CAPSULES BY MOUTH 4 TIMES A DAY NEEDED FOR PAIN, # 480 capsule, 0 Refills, Maintenance, 11/12/23 15:45:00 EDT, [facility]/pharmacy #[id number], 155, cm, 05/28/23 11:02:00 EDT, Height Start Date: 11/12/23 Status: Ordered Power [place] Lift with [place] split-leg sling Power [place] Lift with [place] split-leg sling, See Instructions, # 1 each, [...] 04/14/24 15:39:00 EDT, 03/14/24 15:39:00 EDT, Cream, [facility]/pharmacy #[id number], Partial fill upon [...] 90 capsule, 1 Refills, 12/11/22 15:16:00 EDT, [facility]/pharmacy #[id number], 155, cm, 10/10/22 13:40:00 EST, Height, 93.4, kg, 11/01/21 16:52:00 EDT, Dry Weight Start Date: 12/11/22 Status: Ordered Xarelto 10 mg oral tablet 1 tablet = 10 mg, By Mouth, Daily, # 90 tablet, 3 Refills, Maintenance, 02/26/24 11:39:00 EDT, Tablet, [facility], Partial fill upon patient request if the prescription is for a schedule II opioid drug., 155, cm, 02/18/24 11:04:... Start Date: 02/26/24 Stop Date: 02/20/25 Status: Ordered Xarelto 20 mg oral tablet See Instructions, TAKE 1 TABLET DAILY AT SUPPER, # 90 tablet, 3 Refills, Maintenance, 01/17/23 9:37:00 EDT, [facility], 155, cm, 10/10/22 [...] oldest [Reference Range]: 1 Height 155 cm (04/02/24 10:59 AM) Social History Social History Type Response Smoking Status Never (less than 100 in lifetime) entered on: 10/31/21 Sex Note * Holly Lilly: PERFORM Event Display: Patient Education/Instruction Authored Date: [id number] Ambulatory Adult Visit Summary [facility] [address] [place] [address] Name: CHANEL KATZ : 1955?? Visit: 04/02/2024 10:55?? Ambulatory Visit Instructions ?? Your Care Team Primary Care Provider Kristen Zambrano MD? This Visit Provider Kristen Jean Baptiste MD Vitals Signs Height: 155 cm What to do next Scheduled Follow-Up Appointments Sunday 1:30 PM EST ?? With: Destiney Gentile MD Where: [facility] [address] [address]- Status: Pending Future Orders Comprehensive Metabolic Panel - Once, [...] day Duration: 90 Days [facility] Brand please ([facility]) ?? Unchanged Calcium Carbonate (calcium carbonate 600 [...] See instructions Juzo Compression Hose 2 pairs xudrn-sjc-yozr Soft Knee FF Petite 20-30 mmHg Silicone, Black Stock Code [id number] I I I Part #[id number] Size ??I I I SKU # [id number] ?? Unchanged Durable Medical Equipment (Power [place] Lift with [place] split-leg sling) See instructions MS (multiple sclerosis) [...] oral tablet) 1 tab(s) Oral Daily Unchanged Multivitamin With Minerals (Centrum Silver Ultra Women's oral tablet) 1 tab(s) Oral Daily Unchanged rivaroxaban (Xarelto 10 mg oral tablet) 1 tab(s) Oral Daily Duration: 90 Days Unchanged rivaroxaban (Xarelto 20 mg oral tablet) See instructions TAKE 1 TABLET DAILY AT ? SUPPER ?? Unchanged Silver SulfADIAZINE Topical (Silvadene 1% cream) 1 uday Topically Twice a day Unchanged turmeric (Turmeric) 750 Milligram Oral Twice a day Medications and Immunizations Administered Medications Given During [...] are strongly encouraged to quit. Please call [employer] at [phone] or [phone] ([phone]) or log in to [email or web address] for referrals to smoking cessation programs. ?? The National Suicide Prevention Hotline is available 05/03 if you or someone you know needs to find a reason to keep living. By calling 1-978-161-[employer] (2064) you'll be connected to a skilled, trained counselor at a crisis center in your area. [employer] Portal You can view and manage your care through the patient portal or by using a health care uday of your choosing. [employer] is a website that allows you to securely view your medical information including your hospital discharge summary, office visit summaries, medications and follow-up visits. You can also request appointments, renew medications, and request access to your medical information using a health care uday of your choosing, or just ask a question. You can enroll at [email or web address] or register during your next office visit. [facility], in keeping with [facility] guidance, no longer requires face masks [...] primary care provider, you may find a [facility] [employer] provider by calling [employer] at [phone]. Patient Care team information Care Team Personnel Name: Juliann Rich RN Position: [facility] RN Member Role: Primary Care Nurse Name: Elsa Allen NP Position: [facility] Outreach Member Role: Primary Care Nurse Address: Address: [address] [place] [address]- [place] Name: Emma Mendoza RN Position: [facility] AMB Nurse Member Role: Primary Care Nurse Name: Juan Manuel LIM, Kristen Acosta Position: [facility] Physician - Primary Care Member Role: PCP Address: Address: [address] [place] [address]- [place] Name: Anette Soler RN Position: [facility] Onco RN Member Role: Primary Care Nurse Name: Komal Goodrich Position: [facility] Outreach Member Role: Lifetime Consulting Physician Name: Godfrey Cano Position: [facility] RN Member Role: Primary Care Nurse Care Team Related Persons Name: DIOMEDES WARNER Address: home [address] [place] [address] Name: MOO HOWELL Address: [address] [place] [address] Name: MARLON GENTILE
--- OUTSIDE RECORDS SUMMARY | 2024-06-06 10:10 | XMS_ITS | Continuity of Care Document ---
Author Organization [facility] Address [address] [place] [address]- Care Team Providers Care Tile Mason Name Role Phone Juan Manuel LIM, Kristen Acosta Primary Care Physic juan alberto Encounter [facility] Date(s): 04/10/24 - 05/10/24 [facility] [address] [place] [address]- Allergies, Adverse Reactions, Alerts Substance Reaction Severity Status morphine hives, SOB Active Wellbutrin rash Active Other Environmental Allergy mercury-fillings Active contrast media (iodine-based) itching throughout body Active penicillins hive Active Reglan Active cannabis (Schedule I substance) itching/vomiting Active Immunizations Given and Recorded Vaccine Date Status Refusal Reason SARS-CoV-2(COVID-19)mRNA-LNP vac([id number]) 10/19/23 Recorded SARS-CoV-2(COVID-19)mRNA-LNP vac(esc721) 07/03/23 Recorded RSV vaccine preF3, recombinant 05/19/23 [...] influenza virus vaccine, inactivated 04/26/09 Arnoldo rded [id number]-HqD-3cPBK 12y+ bivalent booster vax 01/23/23 Recorded SBTX-CxL-3pMJF 12y+ bivalent booster vax 05/12/22 Recorded pneumococcal 20-valent conjugate vaccine 05/30/22 Recorded SARS-CoV-2 mRNA (zeupmuj-jkra-zxllc) vax 03/10/22 Recorded SARS-CoV-2 mRNA (rhvqmci-qmos-wxxup) vax 10/04/21 Recorded SARS-CoV-2 (COVID-19) mRNA BNT-162b2 [...] 03/07/24 13:37:00 EDT, Route to Pharmacy Electronically, [facility], Partial fill upon patient request [...] tablet, 3 Refills, Maintenance, 04/22/24 12:28:00 EDT, [facility]/pharmacy #[id number], Partial fill upon [...] 11:11:00 EDT, Route to Pharmacy Electronically, [facility], 155, cm, 02/18/24 11:04:00EDT, Height Start Date: 02/28/24 Status: Ordered gabapentin 300 mg oral capsule 300 mg, 1, capsule, By Mouth, 3 times a day, # 270 capsule, Refills 3, Tot. Refills 3, Maintenance,03/07/24 13:36:00 EDT, Route to Pharmacy Electronically, [facility], Partialfill upon patient request if the prescription is fo... Start Date: 03/07/24 Stop Date: 03/02/25 Status: Ordered Juzo Compression Hose Juzo Compression Hose, See Instructions, # 2 each, Refills 2, Tot. Refills 2, Maintenance, Juzo Compression Hose 2 pairs eiqhj-elj-nxgj Soft Knee FF Petite 20-30 mmHg Silicone, Black Stock Code [id number] I I I Part #[id number] Size I I I SKU... Start Date: 03/12/23 Status: Ordered levothyroxine 0.088 mg oral tablet 1 tablet = 88 mcg, By Mouth, Daily, # 90 tablet, 1 Refills, Maintenance, 03/30/24 19:17:00 EDT, Tablet, [facility], Partial fill upon patient request if the prescription is fora schedule II opioid drug., 155, cm, 03/10/24 10:57... Start Date: 03/30/24 Status: Ordered lisinopril 5 mg oral tablet 1, tablet, By Mouth, Daily, # 90 tablet, Refills 1, Maintenance, 04/10/24 8:59:00 EDT, Route to Pharmacy Electronically, [facility], 155, cm, 04/02/24 10:59:00 EDT, Height Start Date: 04/10/24 Status: Ordered Mapap 500 mg oral capsule See Instructions, TAKE 2 CAPSULES BY MOUTH 4 TIMES A DAY NEEDED FOR PAIN, # 480 capsule, 0 Refills, Maintenance, 04/15/24 13:40:00 EDT, [facility]/pharmacy #[id number], 155, cm, 04/02/24 10:59:00 EDT, Height Start Date: 04/15/24 Status: Ordered Power [place] Lift with [place] split-leg sling Power [place] Lift with [place] split-leg sling, See Instructions, # 1 each, [...] 06/10/24 13:43:00 EDT, 04/15/24 13:43:00 EDT, Tablet, [facility]/pharmacy #[id number], Part... Start Date: 04/15/24 Stop Date: [...] 3 Refills, Maintenance, 02/26/24 11:39:00 EDT, Tablet, [facility], Partial fill upon patient request if the prescription is for a schedule II opioid drug., 155, cm, 02/18/24 11:04:... Start Date: 02/26/24 Stop Date: 02/20/25 Status: Ordered Xarelto 20 mg oral tablet See Instructions, TAKE 1 TABLET DAILY AT SUPPER, # 90 tablet, 3 Refills, Maintenance, 01/17/23 9:37:00 EDT, [facility], 155, cm, 10/10/22 [...] Nurse Name: Alejandro CENTENO, Elsa Peterson Position: [facility] Outreach Member Role: Primary Care Nurse Address: Address: [address] [place] [address]- [place] Name: Emma Mendoza RN Position: [facility] AMB Nurse Member Role: Primary Care Nurse Name: Juan Manuel LIM, Kristen Acosta Position: [facility] Physician - Primary Care Member Role: PCP Address: Address: [address] [place] [address]- Name: Anette Soler RN Position: [facility] Onco RN Member Role: Primary Care Nurse Name: Komal Goodrich Position: [facility] Outreach Member Role: Lifetime Consulting Physician Name: Godfrey Cano Position: [facility] RN Member Role: Primary Care Nurse Care Team Related Persons Name: DIOMEDES WARNER Address: [address] [place] [address] Name: MOO HOWELL Address: [address] [place] [address] Name: MARLON GENTILE
--- OUTSIDE RECORDS SUMMARY | 2024-06-06 10:11 | XMS_ITS | Continuity of Care Document ---
Author Organization [facility] Address [address] [place] [address]- Care Team Providers Care Wire Drawer Name Role Phone Juan Manuel LIM, Kristen Acosta Primary Care Physic juan alberto Encounter [facility] Date(s): 04/01/24 - 05/08/[address] [address]- Attending Physician: Destiney Gentile MD Admitting Physician: Destiney Gentile MD Referring Physician: Kristen Zambrano MD Allergies, Adverse Reactions, Alerts Substance Reaction Severity Status morphine hives, SOB Active penicillins hive Active Wellbutrin rash Active Reglan Active cannabis (Schedule I substance) itching/vomiting Active Other Environmental Allergy mercury-fillings Active contrast media (iodine-based) itching throughout body Active Immunizations Given and Recorded Vaccine Date Status Refusal Reason SARS-CoV-2(COVID-19)mRNA-LNP vac([id number]) 10/19/23 Recorded SARS-CoV-2(COVID-19)mRNA-LNP vac([id number]) 07/03/23 Recorded RSV vaccine preF3, recombinant 05/19/23 [...] influenza virus vaccine, inactivated 04/26/09 Arnoldo rded [id number]-6uSKX 12y+ bivalent booster vax 01/23/23 Recorded MCMJ-MfG-4uLSD 12y+ bivalent booster vax 05/12/22 Recorded pneumococcal 20-valent conjugate vaccine 05/30/22 Recorded SARS-CoV-2 mRNA (kkjinbd-jlfd-fatkd) vax 03/10/22 Recorded SARS-CoV-2 mRNA (fyoimtx-ists-bchvw) vax 10/04/21 Recorded SARS-CoV-2 (COVID-19) mRNA BNT-162b2 [...] 1 Refills, Maintenance, 08/01/23 13:53:00 EST, Tablet, [facility]/pharmacy #[id number], Partial fill upon patient request if the prescription is for a schedule II opioid drug., 155, cm, 05/28/23 11:02:00 E... Start Date: 08/01/23 Status: Ordered baclofen 20 mg oral tablet 20 mg, 1, tablet, By Mouth, 3 times a day, # 270 tablet, Refills 3, Tot. Refills 3, Maintenance, 03/07/24 13:37:00 EDT, Route to Pharmacy Electronically, [facility], Partial fill upon patient request if the prescription is for a... Start Date: 03/07/24 Stop Date: 03/02/25 Status: Ordered bifidobacterium-lactobacillus oral tablet 2 tablet, By Mouth, 2 times a day, [facility] Brand please (Senior Wellness), # 360 tablet, 3 Refills, Maintenance, 08/11/21 17:02:00 EST, Tablet, [facility]/pharmacy #[id number], Partial [...] tablet, 3 Refills, Maintenance, 04/22/24 12:28:00 EDT, [facility]/pharmacy #[id number], Partial fill [...] 02/28/24 11:11:00 EDT, Route to Pharmacy Electronically, [facility], 155, cm, 02/18/24 11:04:00EDT, Height Start Date: 02/28/24 Status: Ordered gabapentin 300 mg oral capsule 300 mg, 1, capsule, By Mouth, 3 times a day, # 270 capsule, Refills 3, Tot. Refills 3, Maintenance,03/07/24 13:36:00 EDT, Route to Pharmacy Electronically, [facility], Partialfill upon patient request if the prescription is fo... Start Date: 03/07/24 Stop Date: 03/02/25 Status: Ordered Juzo Compression Hose Juzo Compression Hose, See Instructions, # 2 each, Refills 2, Tot. Refills 2, Maintenance, Juzo Compression Hose 2 pairs vsmiz-djs-svrz Soft Knee FF Petite 20-30 mmHg Silicone, Black Stock Code [id number] I I I Part #[id number] Size I I I SKU... Start Date: 03/12/23 Status: Ordered levothyroxine 0.088 mg oral tablet 1 tablet = 88 mcg, By Mouth, Daily, # 90 tablet, 1 Refills, Maintenance, 03/30/24 19:17:00 EDT, Tablet, [facility], Partial fill upon patient request if the prescription is fora schedule II opioid drug., 155, cm, 03/10/24 10:57... Start Date: 03/30/24 Status: Ordered lisinopril 5 mg oral tablet 1, tablet, By Mouth, Daily, # 90 tablet, Refills 1, Maintenance, 04/10/24 8:59:00 EDT, Route to Pharmacy Electronically, [facility], 155, cm, 04/02/24 10:59:00 EDT, Height Start Date: 04/10/24 Status: Ordered Mapap 500 mg oral capsule See Instructions, TAKE 2 CAPSULES BY MOUTH 4 TIMES A DAY NEEDED FOR PAIN, # 480 capsule, 0 Refills, Maintenance, 04/15/24 13:40:00 EDT, [facility]/pharmacy #[id number], 155, cm, 04/02/24 10:59:00 EDT, Height Start Date: 04/15/24 Status: Ordered Power [place] Lift with [place] split-leg sling Power [place] Lift with [place] split-leg sling, See Instructions, # 1 each, [...] 06/10/24 13:43:00 EDT, 04/15/24 13:43:00 EDT, Tablet, [facility]/pharmacy #[id number], Part... Start Date: 04/15/24 Stop [...] 90 capsule, 1 Refills, 12/11/22 15:16:00 EDT, [facility]/pharmacy #[id number], 155, cm, 10/10/22 13:40:00 EST, Height, 93.4, kg, 11/01/21 16:52:00 EDT, Dry Weight Start Date: 12/11/22 Status: Ordered Xarelto 10 mg oral tablet 1 tablet = 10 mg, By Mouth, Daily, # 90 tablet, 3 Refills, Maintenance, 02/26/24 11:39:00 EDT, Tablet, [facility], Partial fill upon patient request if the prescription is for a schedule II opioid drug., 155, cm, 02/18/24 11:04:... Start Date: 02/26/24 Stop Date: 02/20/25 Status: Ordered Xarelto 20 mg oral tablet See Instructions, TAKE 1 TABLET DAILY AT SUPPER, # 90 tablet, 3 Refills, Maintenance, 01/17/23 9:37:00 EDT, [facility], 155, cm, 10/10/22 [...] Care Nurse Name: Elsa Allen NP Position: [facility] Outreach Member Role: Primary Care Nurse Address: Address: [address] [place] [phone]- [place] Name: Emma Mendoza RN Position: [facility] AMB Nurse Member Role: Primary Care Nurse Name: Juan Manuel LIM, Kristen Acosta Position: [facility] Physician - Primary Care Member Role: PCP Address: Address: [address] [place] [address]- Name: Anette Soler RN Position: [facility] Onco RN Member Role: Primary Care Nurse Name: Komal Goodrich Position: [facility] Outreach Member Role: Lifetime Consulting Physician Name: Godfrey Cano Position: [facility] RN Member Role: Primary Care Nurse Care Team Related Persons Name: DIOMEDES WARNER Address: home [address] [place] [address] Name: MOO HOWELL Address: home [address] [place] [address] Name: MARLON GENTILE
--- OUTSIDE RECORDS SUMMARY | 2024-06-06 10:12 | XMS_ITS | Continuity of Care Document ---
Author Organization [facility] Address [address] [place] [address]- Care Team Providers Care Long Wall Mining Machine Helper Name Role Phone Juan Manuel LIM, Kristen Acosta Primary Care Physic juan alberto Encounter [facility] Date(s): 03/14/24 - 04/13/24 [facility] [address] [place], [place] [address] [[email or web address] Allergies, Adverse Reactions, Alerts Substance Reaction Severity Status morphine hives, SOB Active penicillins hive Active Wellbutrin rash Active Reglan Active cannabis (Schedule I substance) itching/vomiting Active Other Environmental Allergy mercury-fillings Active contrast media (iodine-based) itching throughout body Active Immunizations Given and Recorded Vaccine Date Status Refusal Reason SARS-CoV-2(COVID-19)mRNA-LNP vac([id number]) 10/19/23 Recorded SARS-CoV-2(COVID-19)mRNA-LNP vac(ymj461) 07/03/23 Recorded RSV vaccine preF3, recombinant 05/19/23 [...] influenza virus vaccine, inactivated 04/26/09 Arnoldo rded [id number]-RlX-4pMEO 12y+ bivalent booster vax 01/23/23 Recorded LHFY-BkC-4nHLP 12y+ bivalent booster vax 05/12/22 Recorded pneumococcal 20-valent conjugate vaccine 05/30/22 Recorded SARS-CoV-2 mRNA (vdlnxmn-eqpt-knamx) vax 03/10/22 Recorded SARS-CoV-2 mRNA (hzrzhne-xtcp-jmpdy) vax 10/04/21 Recorded SARS-CoV-2 (COVID-19) mRNA BNT-162b2 [...] Maintenance, 08/01/23 13:53:00 EST, Tablet, [facility] 11:11:00 EDT, Route to Pharmacy Electronically, [facility], 155, cm, 02/18/24 11:04:00EDT, Height Start Date: 02/28/24 Status: Ordered gabapentin 300 mg oral capsule 300 mg, 1, capsule, By Mouth, 3 times a day, # 270 capsule, Refills 3, Tot. Refills 3, Maintenance,03/07/24 13:36:00 EDT, Route to Pharmacy Electronically, [facility], Partialfill upon patient request if the prescription is fo... Start Date: 03/07/24 Stop Date: 03/02/25 Status: Ordered Juzo Compression Hose Juzo Compression Hose, See Instructions, # 2 each, Refills 2, Tot. Refills 2, Maintenance, Juzo Compression Hose 2 pairs rcwiz-ikt-orgv Soft Knee FF Petite 20-30 mmHg Silicone, Black Stock Code [id number] I I I Part #[id number] Size I I I SKU... Start Date: 03/12/23 Status: Ordered levothyroxine 0.088 mg oral tablet 1 tablet = 88 mcg, By Mouth, Daily, # 90 tablet, 1 Refills, Maintenance, 03/30/24 19:17:00 EDT, Tablet, [facility], Partial fill [...] capsule, 0 Refills, Maintenance, 11/12/23 15:45:00 EDT, [facility]/pharmacy #[id number], 155, cm, 05/28/23 11:02:00 EDT, Height Start Date: 11/12/23 Status: Ordered Power [place] Lift with [place] split-leg sling Power [place] Lift with [place] split-leg sling, See Instructions, # [...] 1 Refills, 12/11/22 15:16:00 EDT, [facility]/pharmacy #[id number], 155, cm, 10/10/22 13:40:00 EST, Height, 93.4, kg, 11/01/21 16:52:00 EDT, Dry Weight Start Date: 12/11/22 Status: Ordered Xarelto 10 mg oral tablet 1 tablet = 10 mg, By Mouth, Daily, # 90 tablet, 3 Refills, Maintenance, 02/26/24 11:39:00 EDT, Tablet, [facility], Partial fill upon patient request if the prescription is for a schedule II opioid drug., 155, cm, 02/18/24 11:04:... Start Date: 02/26/24 Stop Date: 02/20/25 Status: Ordered Xarelto 20 mg oral tablet See Instructions, TAKE 1 TABLET DAILY AT SUPPER, # 90 tablet, 3 Refills, Maintenance, 01/17/23 9:37:00 EDT, [facility], 155, cm, [...] Nurse Name: Alejandro CENTENO, Elsa Peterson Position: [facility] Outreach Member Role: Primary Care Nurse Address: Address: [address] [place] [id number]- [place] Name: Emma Mendoza RN Position: [facility] AMB Nurse Member Role: Primary Care Nurse Name: Juan Manuel LIM, Kristen Acosta Position: [facility] Physician - Primary Care Member Role: PCP Address: Address: [address] [place] [address]- Name: Anette Soler RN Position: [facility] Onco RN Member Role: Primary Care Nurse Name: Komal Goodrich Position: [facility] Outreach Member Role: Lifetime Consulting Physician Name: Godfrey Cano Position: [facility] RN Member Role: Primary Care Nurse Care Team Related Persons Name: DIOMEDES WARNER Address: home [address] [place] [address] Name: MOO HOWELL Address: home [address] [place] [address] Name: MARLON GENTILE
--- OUTSIDE RECORDS SUMMARY | 2024-06-06 10:13 | XMS_ITS | Continuity of Care Document ---
Author Organization [facility] Address [address] [place] [address]- Care Team Providers Care Sagger Filler Name Role Phone Juan Manuel LIM, Kristen Acosta Primary Care Physic juan alberto Encounter [facility] Date(s): 04/22/24 - 05/22/24 [facility] [address] [place] [address]- Attending Physician: Alissa Gannon Admitting Physician: AdmtrAlissa Referring Physician: Admtr, Ar8 Allergies, Adverse Reactions, Alerts Substance Reaction Severity Status morphine hives, SOB Active penicillins hive Active Wellbutrin rash Active Other Environmental Allergy mercury-fillings Active contrast media (iodine-based) itching throughout body Active cannabis (Schedule I substance) itching/vomiting Active Reglan Active Immunizations Given and Recorded Vaccine Date Status Refusal Reason SARS-CoV-2(COVID-19)mRNA-LNP vac([id number]) 10/19/23 Recorded SARS-CoV-2(COVID-19)mRNA-LNP vac(bft784) 07/03/23 Recorded RSV vaccine preF3, recombinant 05/19/23 [...] influenza virus vaccine, inactivated 04/26/09 Arnoldo rded [id number]-TmK-4zCMF 12y+ bivalent booster vax 01/23/23 Recorded NHPD-HzU-0aFUG 12y+ bivalent booster vax 05/12/22 Recorded pneumococcal 20-valent conjugate vaccine 05/30/22 Recorded SARS-CoV-2 mRNA (ktttgtr-fxwp-djsyc) vax 03/10/22 Recorded SARS-CoV-2 mRNA (wufbxdi-hipu-ojybk) vax 10/04/21 Recorded SARS-CoV-2 (COVID-19) mRNA BNT-162b2 [...] Refills, Maintenance, 08/01/23 13:53:00 EST, Tablet, [facility]/pharmacy #[id number], Partial fill upon patient request if the prescription is for a schedule II opioid drug., 155, cm, 05/28/23 11:02:00 E... Start Date: 08/01/23 Status: Ordered baclofen 20 mg oral tablet 20 mg, 1, tablet, By Mouth, 3 times a day, # 270 tablet, Refills 3, Tot. Refills 3, Maintenance, 03/07/24 13:37:00 EDT, Route to Pharmacy Electronically, [facility], Partial fill upon patient request if the prescription is for a... Start Date: 03/07/24 Stop Date: 03/02/25 Status: Ordered bifidobacterium-lactobacillus oral tablet 2 tablet, By Mouth, 2 times a day, [facility] Brand please (Senior Wellness), # 360 tablet, 3 Refills, Maintenance, 08/11/21 17:02:00 EST, Tablet, [facility]/pharmacy #[id number], Partial fill upon patient request if the prescription is for a schedule II opioid drug., 2... Start Date: 08/11/21 Stop Date: 08/06/22 Status: Ordered calcium carbonate 600 mg oral tablet 1 tablet = 600 mg, By Mouth, 2 times a day, # 180 tablet, 2 Refills, Maintenance, 01/06/23 14:02:00EDT, Tablet, [facility]/pharmacy #[id number], Partial fill upon patient request if the prescription is for a schedule II opioid drug., 155, cm, 02/23/22 8:04:00 EDT... Start Date: 01/06/23 Stop Date: 10/03/23 Status: Ordered Centrum Silver Ultra Women's oral tablet 1 tablet, By Mouth, Daily, 0 Refills, Maintenance, 07/09/18 8:43:55 EST Start Date: 07/09/18 Status: Ordered [facility] SENIOR PROBIOTIC CAPSULE TAKE 2 CAPSULES BY MOUTH TWICE A DAY Start Date: 11/01/21 Status: Ordered Enemeez Mini 283 mg rectal enema See Instructions, USE RECTALLY EVERY DAY NEEDED FOR CONSTIPATION, # 450 mL, 5 Refills, 03/02/22 8:08:00 EDT, [facility]/pharmacy #[id number], 155, cm, 02/23/22 [...] tablet, 3 Refills, Maintenance, 04/22/24 12:28:00 EDT, [facility]/pharmacy #[id number], Partial fill upon [...] 02/28/24 11:11:00 EDT, Route to Pharmacy Electronically, [facility], 155, cm, 02/18/24 11:04:00EDT, Height Start Date: 02/28/24 Status: Ordered gabapentin 300 mg oral capsule 300 mg, 1, capsule, By Mouth, 3 times a day, # 270 capsule, Refills 3, Tot. Refills 3, Maintenance,03/07/24 13:36:00 EDT, Route to Pharmacy Electronically, [facility], Partialfill upon patient request if the prescription is fo... Start Date: 03/07/24 Stop Date: 03/02/25 Status: Ordered Juzo Compression Hose Juzo Compression Hose, See Instructions, # 2 each, Refills 2, Tot. Refills 2, Maintenance, Juzo Compression Hose 2 pairs riuvc-wbe-iqvp Soft Knee FF Petite 20-30 mmHg Silicone, Black Stock Code [id number] I I I Part #[id number] Size I I I SKU... Start Date: 03/12/23 Status: Ordered levothyroxine 0.088 mg oral tablet 1 tablet = 88 mcg, By Mouth, Daily, # 90 tablet, 1 Refills, Maintenance, 03/30/24 19:17:00 EDT, Tablet, [facility], Partial fill upon patient request if the prescription is fora schedule II opioid drug., 155, cm, 03/10/24 10:57... Start Date: 03/30/24 Status: Ordered lisinopril 5 mg oral tablet 1, tablet, By Mouth, Daily, # 90 tablet, Refills 1, Maintenance, 04/10/24 8:59:00 EDT, Route to Pharmacy Electronically, [facility], 155, cm, 04/02/24 10:59:00 EDT, Height Start Date: 04/10/24 Status: Ordered Mapap 500 mg oral capsule See Instructions, TAKE 2 CAPSULES BY MOUTH 4 TIMES A DAY NEEDED FOR PAIN, # 480 capsule, 0 Refills, Maintenance, 04/15/24 13:40:00 EDT, [facility]/pharmacy #[id number], 155, cm, 04/02/24 10:59:00 EDT, Height Start Date: 04/15/24 Status: Ordered Power [place] Lift with [place] split-leg sling Power [place] Lift with [place] split-leg sling, See Instructions, # 1 each, [...] 06/10/24 13:43:00 EDT, 04/15/24 13:43:00 EDT, Tablet, [facility]/pharmacy #[id number], Part... Start Date: 04/15/24 Stop Date: [...] 1 Refills, 12/11/22 15:16:00 EDT, [facility]/pharmacy #[id number], 155, cm, 10/10/22 13:40:00 EST, Height, 93.4, kg, 11/01/21 16:52:00 EDT, Dry Weight Start Date: 12/11/22 Status: Ordered Xarelto 10 mg oral tablet 1 tablet = 10 mg, By Mouth, Daily, # 90 tablet, 3 Refills, Maintenance, 02/26/24 11:39:00 EDT, Tablet, [facility], Partial fill upon patient request if the prescription is for a schedule II opioid drug., 155, cm, 02/18/24 11:04:... Start Date: 02/26/24 Stop Date: 02/20/25 Status: Ordered Xarelto 20 mg oral tablet See Instructions, TAKE 1 TABLET DAILY AT SUPPER, # 90 tablet, 3 Refills, Maintenance, 01/17/23 9:37:00 EDT, [facility], 155, cm, 10/10/22 [...] 100 in lifetime) entered on: 10/31/21 Sex Hospital Consult note * Event Display: Inpatient Consult Note, Non- Authored Date: Laboratory * Event Display: Non Lab Results Authored Date: * Event Display: Non Lab Results Authored Date: * Event Display: Non Lab Results Authored Date: Cardiology Consult note * Event Display: Consult Note Cardiology Authored Date: Radiology * Event Display: IR Special Procedures, Non- Authored Date: * Event Display: X-Ray Chest, Non- Authored Date: * Event Display: CT Scan Abdomen, Non- Authored Date: US Lower extremity * Event Display: Ultrasound Lower Extremity Authored Date: Patient Care team information Care Team Personnel Name: Juliann Rich RN Position: [facility] RN Member Role: Primary Care Nurse Name: Elsa Allen NP Position: [facility] Outreach Member Role: Primary Care Nurse Address: Address: [address] [facility] [place] [address]- [place] Name: Emma Mendoza RN Position: [facility] AMB Nurse Member Role: Primary Care Nurse Name: Kristen Zambrano MD Position: [facility] Physician - Primary Care Member Role: PCP Address: [facility] [place] [address]- Name: Ryder MILLER, Anette Position: [facility] Onco RN Member Role: Primary Care Nurse Name: Komal Goodrich Position: [facility] Outreach Member Role: Lifetime Consulting Physician Name: Godfrey Cano Position: [facility] RN Member Role: Primary Care Nurse Care Team Related Persons Name: DIOMEDES WARNER Address: home [address] [place] [address] Name: MOO HOWELL Address: [address] [place] [address] Name: MARLON GENTILE
--- OUTSIDE RECORDS SUMMARY | 2024-06-06 10:14 | XMS_ITS | Continuity of Care Document ---
Author Organization [facility] Address [address] [place] [address]- Care Team Providers Care Development Disability Specialist Name Role Phone Juan Manuel LIM, Kristen Acosta Primary Care Physic juan alberto Encounter [facility] Date(s): 03/12/24 - 04/11/24 [facility] [address] [place], [place] [address] Allergies, Adverse Reactions, Alerts Substance Reaction Severity Status morphine hives, SOB Active penicillins hive Active Wellbutrin rash Active Reglan Active cannabis (Schedule I substance) itching/vomiting Active Other Environmental Allergy mercury-fillings Active contrast media (iodine-based) itching throughout body Active Immunizations Given and Recorded Vaccine Date Status Refusal Reason SARS-CoV-2(COVID-19)mRNA-LNP vac(zvh363) 10/19/23 Recorded SARS-CoV-2(COVID-19)mRNA-LNP vac(lsk956) 07/03/23 Recorded RSV vaccine preF3, recombinant 05/19/23 [...] influenza virus vaccine, inactivated 04/26/09 Arnoldo rded [id number]-UqI-6zZGZ 12y+ bivalent booster vax 01/23/23 Recorded NUPZ-QsD-7sLJB 12y+ bivalent booster vax 05/12/22 Recorded pneumococcal 20-valent conjugate vaccine 05/30/22 Recorded SARS-CoV-2 mRNA (qossvza-gyqb-methu) vax 03/10/22 Recorded SARS-CoV-2 mRNA (rtcygvs-giou-ikosb) vax 10/04/21 Recorded SARS-CoV-2 (COVID-19) mRNA BNT-162b2 [...] 1 Refills, Maintenance, 08/01/23 13:53:00 EST, Tablet, [facility]/pharmacy #[id number], Partial [...] 11:11:00 EDT, Route to Pharmacy Electronically, [facility], 155, cm, 02/18/24 11:04:00EDT, Height Start Date: 02/28/24 Status: Ordered gabapentin 300 mg oral capsule 300 mg, 1, capsule, By Mouth, 3 times a day, # 270 capsule, Refills 3, Tot. Refills 3, Maintenance,03/07/24 13:36:00 EDT, Route to Pharmacy Electronically, [facility], Partialfill upon patient request if the prescription is fo... Start Date: 03/07/24 Stop Date: 03/02/25 Status: Ordered Juzo Compression Hose Juzo Compression Hose, See Instructions, # 2 each, Refills 2, Tot. Refills 2, Maintenance, Juzo Compression Hose 2 pairs giytw-ohn-nich Soft Knee FF Petite 20-30 mmHg Silicone, Black Stock Code [id number] I I I Part #[id number] Size I I I SKU... Start Date: 03/12/23 Status: Ordered levothyroxine 0.088 mg oral tablet 1 tablet = 88 mcg, By Mouth, Daily, # 90 tablet, 1 Refills, Maintenance, 03/30/24 19:17:00 EDT, Tablet, [facility], [...] capsule, 0 Refills, Maintenance, 11/12/23 15:45:00 EDT, [facility]/pharmacy #[id number], 155, cm, 05/28/23 11:02:00 EDT, Height Start Date: 11/12/23 Status: Ordered Power [place] Lift with [place] split-leg sling Power [place] Lift with [place] split-leg sling, See Instructions, # 1 each, [...] 3 Refills, Maintenance, 02/26/24 11:39:00 EDT, Tablet, [facility], Partial fill upon patient request if the prescription is for a schedule II opioid drug., 155, cm, 02/18/24 11:04:... Start Date: 02/26/24 Stop Date: 02/20/25 Status: Ordered Xarelto 20 mg oral tablet See Instructions, TAKE 1 TABLET DAILY AT SUPPER, # 90 tablet, 3 Refills, Maintenance, 01/17/23 9:37:00 EDT, [facility], 155, cm, 10/10/22 [...] Nurse Name: Alejandro CENTENO, Elsa Peterson Position: [facility] Outreach Member Role: Primary Care Nurse Address: Address: [address] [place] [phone]- [place] Name: Emma Mendoza RN Position: [facility] AMB Nurse Member Role: Primary Care Nurse Name: Juan Manuel LIM, Kristen Acosta Position: [facility] Physician - Primary Care Member Role: PCP Address: Address: [address] [place] [phone]- Name: Anette Soler RN Position: [facility] Onco RN Member Role: Primary Care Nurse Name: Komal Goodrich Position: [facility] Outreach Member Role: Lifetime Consulting Physician Name: Godfrey Cano Position: [facility] RN Member Role: Primary Care Nurse Care Team Related Persons Name: DIOMEDES WARNER Address: [address] [place] [address] Name: MOO HOWELL Address: [address] [place] [address] Name: MARLON GENTILE
--- OUTSIDE RECORDS SUMMARY | 2024-06-06 10:17 | XMS_ITS | Continuity of Care Document ---
Author Organization [facility] Address [address] [place] [address]- Care Team Providers Care Seater Grinder Name Role Phone Juan Manuel LIM, Kristen Acosta Primary Care Physic juan alberto Encounter [facility] Date(s): 03/30/24 - 04/29/24 [facility] [address] [place] [address]- Allergies, Adverse Reactions, Alerts Substance Reaction Severity Status morphine hives, SOB Active penicillins hive Active Wellbutrin rash Active Reglan Active cannabis (Schedule I substance) itching/vomiting Active Other Environmental Allergy mercury-fillings Active contrast media (iodine-based) itching throughout body Active Immunizations Given and Recorded Vaccine Date Status Refusal Reason SARS-CoV-2(COVID-19)mRNA-LNP vac([id number]) 10/19/23 Recorded SARS-CoV-2(COVID-19)mRNA-LNP vac(ubw129) 07/03/23 Recorded RSV vaccine preF3, recombinant 05/19/23 [...] influenza virus vaccine, inactivated 04/26/09 Arnoldo rded [id number] 12y+ bivalent booster vax 01/23/23 Recorded QMDY-KoH-[id number] 12y+ bivalent booster vax 05/12/22 Recorded pneumococcal 20-valent conjugate vaccine 05/30/22 Recorded SARS-CoV-2 mRNA (tqlguns-vjwu-bqcdt) vax 03/10/22 Recorded SARS-CoV-2 mRNA (iytkevr-bryp-axlre) vax 10/04/21 Recorded SARS-CoV-2 (COVID-19) mRNA BNT-162b2 [...] 03/07/24 13:37:00 EDT, Route to Pharmacy Electronically, [facility], Partial fill upon patient request [...] tablet, 3 Refills, Maintenance, 04/22/24 12:28:00 EDT, [facility]/pharmacy #[id number], Partial fill upon [...] [facility], 155, cm, 02/18/24 11:04:00EDT, Height Start Date: 02/28/24 Status: Ordered gabapentin 300 mg oral capsule 300 mg, 1, capsule, By Mouth, 3 times a day, # 270 capsule, Refills 3, Tot. Refills 3, Maintenance,03/07/24 13:36:00 EDT, Route to Pharmacy Electronically, [facility], Partialfill upon patient request if the prescription is fo... Start Date: 03/07/24 Stop Date: 03/02/25 Status: Ordered Juzo Compression Hose Juzo Compression Hose, See Instructions, # 2 each, Refills 2, Tot. Refills 2, Maintenance, Juzo Compression Hose 2 pairs pseqn-fbz-jyas Soft Knee FF Petite 20-30 mmHg Silicone, Black Stock Code [id number] I I I Part #[id number] Size I I I SKU... Start Date: 03/12/23 Status: Ordered levothyroxine 0.088 mg oral tablet 1 tablet = 88 mcg, By Mouth, Daily, # 90 tablet, 1 Refills, Maintenance, 03/30/24 19:17:00 EDT, Tablet, [facility], Partial fill upon patient request if the prescription is fora schedule II opioid drug., 155, cm, 03/10/24 10:57... Start Date: 03/30/24 Status: Ordered lisinopril 5 mg oral tablet 1, tablet, By Mouth, Daily, # 90 tablet, Refills 1, Maintenance, 04/10/24 8:59:00 EDT, Route to Pharmacy Electronically, [facility], 155, cm, 04/02/24 10:59:00 EDT, Height Start Date: 04/10/24 Status: Ordered Mapap 500 mg oral capsule See Instructions, TAKE 2 CAPSULES BY MOUTH 4 TIMES A DAY NEEDED FOR PAIN, # 480 capsule, 0 Refills, Maintenance, 04/15/24 13:40:00 EDT, [facility]/pharmacy #[id number], 155, cm, 04/02/24 10:59:00 EDT, Height Start Date: 04/15/24 Status: Ordered Power [place] Lift with [place] split-leg sling Power [place] Lift with [place] split-leg sling, See Instructions, # 1 each, [...] 06/10/24 13:43:00 EDT, 04/15/24 13:43:00 EDT, Tablet, [facility]/pharmacy #[id number], Part... Start Date: 04/15/24 Stop Date: [...] capsule, 1 Refills, 12/11/22 15:16:00 EDT, [facility]/pharmacy #[id number], 155, cm, 10/10/22 13:40:00 EST, Height, 93.4, kg, 11/01/21 16:52:00 EDT, Dry Weight Start Date: 12/11/22 Status: Ordered Xarelto 10 mg oral tablet 1 tablet = 10 mg, By Mouth, Daily, # 90 tablet, 3 Refills, Maintenance, 02/26/24 11:39:00 EDT, Tablet, [facility], Partial fill upon patient request if the prescription is for a schedule II opioid drug., 155, cm, 02/18/24 11:04:... Start Date: 02/26/24 Stop Date: 02/20/25 Status: Ordered Xarelto 20 mg oral tablet See Instructions, TAKE 1 TABLET DAILY AT SUPPER, # 90 tablet, 3 Refills, Maintenance, 01/17/23 9:37:00 EDT, [facility], 155, cm, 10/10/22 [...] Nurse Name: Alejandro CENTENO, Elsa Peterson Position: [facility] Outreach Member Role: Primary Care Nurse Address: Address: [address] [place] [phone]- [place] Name: Emma Mendoza RN Position: [facility] AMB Nurse Member Role: Primary Care Nurse Name: Juan Manuel LIM, Kristen Acosta Position: [facility] Physician - Primary Care Member Role: PCP Address: Address: [address] [place] [address]- Name: Anette Soler RN Position: [facility] Onco RN Member Role: Primary Care Nurse Name: Komal Goodrich Position: [facility] Outreach Member Role: Lifetime Consulting Physician Name: Godfrey Cano Position: [facility] RN Member Role: Primary Care Nurse Care Team Related Persons Name: DIOMEDES WARNER Address: home [address] [place] [address] Name: MOO HOWELL Address: [address] [place] [address] Name: MARLON GENTILE
--- OUTSIDE RECORDS SUMMARY | 2024-06-06 10:19 | XMS_ITS | Continuity of Care Document ---
Author Organization [facility] Address [address] [place] [address]- Care Team Providers Care Calendar Control Clerk Blood Bank Name Role Phone Juan Manuel LIM, Kristen Acosta Primary Care Physic juan alberto Encounter [facility] Date(s): 04/23/24 - 05/23/24 [facility] [address] [place] [address]- Allergies, Adverse Reactions, Alerts Substance Reaction Severity Status morphine hives, SOB Active Wellbutrin rash Active contrast media (iodine-based) itching throughout body Active penicillins hive Active Reglan Active cannabis (Schedule I substance) itching/vomiting Active Other Environmental Allergy mercury-fillings Active Immunizations Given and Recorded Vaccine Date Status Refusal Reason SARS-CoV-2(COVID-19)mRNA-LNP vac([id number]) 10/19/23 Recorded SARS-CoV-2(COVID-19)mRNA-LNP vac([id number]) 07/03/23 Recorded RSV vaccine preF3, recombinant 05/19/23 [...] influenza virus vaccine, inactivated 04/26/09 Arnoldo rded [id number]-[id number] 12y+ bivalent booster vax 01/23/23 Recorded KINJ-UcS-9fPGG 12y+ bivalent booster vax 05/12/22 Recorded pneumococcal 20-valent conjugate vaccine 05/30/22 Recorded SARS-CoV-2 mRNA (aguburl-gnff-fyibg) vax 03/10/22 Recorded SARS-CoV-2 mRNA (pqazdxg-exog-cystq) vax 10/04/21 Recorded SARS-CoV-2 (COVID-19) mRNA BNT-162b2 [...] Refills, Maintenance, 08/01/23 13:53:00 EST, Tablet, [facility]/pharmacy #[id number], Partial fill upon patient request if the prescription is for a schedule II opioid drug., 155, cm, 05/28/23 11:02:00 E... Start Date: 08/01/23 Status: Ordered baclofen 20 mg oral tablet 20 mg, 1, tablet, By Mouth, 3 times a day, # 270 tablet, Refills 3, Tot. Refills 3, Maintenance, 03/07/24 13:37:00 EDT, Route to Pharmacy Electronically, [facility], Partial fill upon patient request if the prescription is for a... Start Date: 03/07/24 Stop Date: 03/02/25 Status: Ordered bifidobacterium-lactobacillus oral tablet 2 tablet, By Mouth, 2 times a day, [facility] Brand please (Senior Wellness), # 360 tablet, 3 Refills, Maintenance, 08/11/21 17:02:00 EST, Tablet, [facility]/pharmacy #[id number], Partial fill upon patient request if the prescription is for a schedule II opioid drug., 2... Start Date: 08/11/21 Stop Date: 08/06/22 Status: Ordered calcium carbonate 600 mg oral tablet 1 tablet = 600 mg, By Mouth, 2 times a day, # 180 tablet, 2 Refills, Maintenance, 01/06/23 14:02:00EDT, Tablet, [facility]/pharmacy #[id number], Partial fill upon patient request if the prescription is for a schedule II opioid drug., 155, cm, 02/23/22 8:04:00 EDT... Start Date: 01/06/23 Stop Date: 10/03/23 Status: Ordered Centrum Silver Ultra Women's oral tablet 1 tablet, By Mouth, Daily, 0 Refills, Maintenance, 07/09/18 8:43:55 EST Start Date: 07/09/18 Status: Ordered [facility] SENIOR PROBIOTIC CAPSULE TAKE 2 CAPSULES BY MOUTH TWICE A DAY Start Date: 11/01/21 Status: Ordered Enemeez Mini 283 mg rectal enema See Instructions, USE RECTALLY EVERY DAY NEEDED FOR CONSTIPATION, # 450 mL, 5 Refills, 03/02/22 8:08:00 EDT, [facility]/pharmacy #[id number], 155, cm, 02/23/22 8:04:00 [...] 3 Refills, Maintenance, 04/22/24 12:28:00 EDT, [facility]/pharmacy #[id number], Partial fill upon patient [...] 02/28/24 11:11:00 EDT, Route to Pharmacy Electronically, [facility], 155, cm, 02/18/24 11:04:00EDT, Height Start Date: 02/28/24 Status: Ordered gabapentin 300 mg oral capsule 300 mg, 1, capsule, By Mouth, 3 times a day, # 270 capsule, Refills 3, Tot. Refills 3, Maintenance,03/07/24 13:36:00 EDT, Route to Pharmacy Electronically, [facility], Partialfill upon patient request if the prescription is fo... Start Date: 03/07/24 Stop Date: 03/02/25 Status: Ordered Juzo Compression Hose Juzo Compression Hose, See Instructions, # 2 each, Refills 2, Tot. Refills 2, Maintenance, Juzo Compression Hose 2 pairs idlzo-bch-iupc Soft Knee FF Petite 20-30 mmHg Silicone, Black Stock Code [id number] I I I Part #[id number] Size I I I SKU... Start Date: 03/12/23 Status: Ordered levothyroxine 0.088 mg oral tablet 1 tablet = 88 mcg, By Mouth, Daily, # 90 tablet, 1 Refills, Maintenance, 03/30/24 19:17:00 EDT, Tablet, [facility], Partial fill upon patient request if the prescription is fora schedule II opioid drug., 155, cm, 03/10/24 10:57... Start Date: 03/30/24 Status: Ordered lisinopril 5 mg oral tablet 1, tablet, By Mouth, Daily, # 90 tablet, Refills 1, Maintenance, 04/10/24 8:59:00 EDT, Route to Pharmacy Electronically, [facility], 155, cm, 04/02/24 10:59:00 EDT, Height Start Date: 04/10/24 Status: Ordered Mapap 500 mg oral capsule See Instructions, TAKE 2 CAPSULES BY MOUTH 4 TIMES A DAY NEEDED FOR PAIN, # 480 capsule, 0 Refills, Maintenance, 04/15/24 13:40:00 EDT, [facility]/pharmacy #[id number], 155, cm, 04/02/24 10:59:00 EDT, Height Start Date: 04/15/24 Status: Ordered Power [place] Lift with [place] split-leg sling Power [place] Lift with [place] split-leg sling, See Instructions, # 1 each, [...] 13:43:00 EDT, 04/15/24 13:43:00 EDT, Tablet, [facility]/pharmacy #[id number], Part... Start Date: 04/15/24 Stop Date: [...] capsule, 1 Refills, 12/11/22 15:16:00 EDT, [facility]/pharmacy #[id number], 155, cm, 10/10/22 13:40:00 EST, Height, 93.4, kg, 11/01/21 16:52:00 EDT, Dry Weight Start Date: 12/11/22 Status: Ordered Xarelto 10 mg oral tablet 1 tablet = 10 mg, By Mouth, Daily, # 90 tablet, 3 Refills, Maintenance, 02/26/24 11:39:00 EDT, Tablet, [facility], Partial fill upon patient request if the prescription is for a schedule II opioid drug., 155, cm, 02/18/24 11:04:... Start Date: 02/26/24 Stop Date: 02/20/25 Status: Ordered Xarelto 20 mg oral tablet See Instructions, TAKE 1 TABLET DAILY AT SUPPER, # 90 tablet, 3 Refills, Maintenance, 01/17/23 9:37:00 EDT, [facility], 155, cm, 10/10/22 [...] Nurse Name: Alejandro CENTENO, Elsa Peterson Position: [facility] Outreach Member Role: Primary Care Nurse Address: Address: [address] [place] [phone]- [place] Name: Emma Mendoza RN Position: [facility] Nurse Member Role: Primary Care Nurse Name: Juan Manuel LIM, Kristen Acosta Position: [facility] Physician - Primary Care Member Role: PCP Address: Address: [address] [place] [address]- Name: Anette Soler RN Position: [facility] Onco RN Member Role: Primary Care Nurse Name: Komal Goodrich Position: [facility] Outreach Member Role: Lifetime Consulting Physician Name: Godfrey Cano Position: [facility] RN Member Role: Primary Care Nurse Care Team Related Persons Name: DIOMEDES WARNER Address: home [address] [place] [address] Name: MOO HOWELL Address: [address] [place] [address] Name: MARLON GENTILE
--- OUTSIDE RECORDS SUMMARY | 2024-06-06 10:19 | XMS_ITS | Continuity of Care Document ---
Author Organization [facility] Address [address] [place] [address]- Care Team Providers Care Oliver Filter Operator Name Role Phone Juan Manuel LIM, Kristen Acosta Primary Care Physic juan alberto Encounter [facility] Date(s): 03/19/24 - 04/18/24 [facility] [address] [place] [address]- Allergies, Adverse Reactions, Alerts Substance Reaction Severity Status morphine hives, SOB Active Wellbutrin rash Active contrast media (iodine-based) itching throughout body Active penicillins hive Active Reglan Active cannabis (Schedule I substance) itching/vomiting Active Other Environmental Allergy mercury-fillings Active Immunizations Given and Recorded Vaccine Date Status Refusal Reason SARS-CoV-2(COVID-19)mRNA-LNP vac([id number]) 10/19/23 Recorded SARS-CoV-2(COVID-19)mRNA-LNP vac(mgf760) 07/03/23 Recorded RSV vaccine preF3, recombinant 05/19/23 [...] influenza virus vaccine, inactivated 04/26/09 Arnoldo rded [id number]-8oKEJ 12y+ bivalent booster vax 01/23/23 Recorded [id number]-YwS-0aIAO 12y+ bivalent booster vax 05/12/22 Recorded pneumococcal 20-valent conjugate vaccine 05/30/22 Recorded SARS-CoV-2 mRNA (ugjauiq-dzrt-qnbtx) vax 03/10/22 Recorded SARS-CoV-2 mRNA (kpvkans-apqz-whuhl) vax 10/04/21 Recorded SARS-CoV-2 (COVID-19) mRNA BNT-162b2 [...] 1 Refills, Maintenance, 08/01/23 13:53:00 EST, Tablet, [facility]/pharmacy #[id number], Partial fill upon patient request if the prescription is for a schedule II opioid drug., 155, cm, 05/28/23 11:02:00 E... Start Date: 08/01/23 Status: Ordered baclofen 20 mg oral tablet 20 mg, 1, tablet, By Mouth, 3 times a day, # 270 tablet, Refills 3, Tot. Refills 3, Maintenance, 03/07/24 13:37:00 EDT, Route to Pharmacy Electronically, [facility], Partial fill upon patient request [...] 2, Maintenance, Juzo Compression Hose 2 pairs yxzwn-asl-ivna Soft Knee FF Petite 20-30 mmHg Silicone, Black Stock Code [id number] I I I Part #02519 Size I I I SKU... Start Date: 03/12/23 Status: Ordered levothyroxine 0.088 mg oral tablet 1 tablet = 88 mcg, By Mouth, Daily, # 90 tablet, 1 Refills, Maintenance, 03/30/24 19:17:00 EDT, Tablet, [facility], Partial fill upon patient request if the prescription is fora schedule II opioid drug., 155, cm, 03/10/24 10:57... Start Date: 03/30/24 Status: Ordered lisinopril 5 mg oral tablet 1, tablet, By Mouth, Daily, # 90 tablet, Refills 1, Maintenance, 04/10/24 8:59:00 EDT, Route to Pharmacy Electronically, [facility], 155, cm, 04/02/24 10:59:00 EDT, Height Start Date: 04/10/24 Status: Ordered Mapap 500 mg oral capsule See Instructions, TAKE 2 CAPSULES BY MOUTH 4 TIMES A DAY NEEDED FOR PAIN, # 480 capsule, 0 Refills, Maintenance, 04/15/24 13:40:00 EDT, [facility][id number], 155, cm, 04/02/24 10:59:00 EDT, Height Start Date: 04/15/24 Status: Ordered Power [place] Lift with [place] split-leg sling Power [place] Lift with [place] split-leg sling, See Instructions, # 1 each, [...] 06/10/24 13:43:00 EDT, 04/15/24 13:43:00 EDT, Tablet, [id number], Part... Start Date: 04/15/24 Stop Date: [...] 90 capsule, 1 Refills, 12/11/22 15:16:00 EDT, [facility]/pharmacy #[id number], 155, cm, 10/10/22 13:40:00 EST, Height, 93.4, kg, 11/01/21 16:52:00 EDT, Dry Weight Start Date: 12/11/22 Status: Ordered Xarelto 10 mg oral tablet 1 tablet = 10 mg, By Mouth, Daily, # 90 tablet, 3 Refills, Maintenance, 02/26/24 11:39:00 EDT, Tablet, [facility], Partial fill upon patient request if the prescription is for a schedule II opioid drug., 155, cm, 02/18/24 11:04:... Start Date: 02/26/24 Stop Date: 02/20/25 Status: Ordered Xarelto 20 mg oral tablet See Instructions, TAKE 1 TABLET DAILY AT SUPPER, # 90 tablet, 3 Refills, Maintenance, 01/17/23 9:37:00 EDT, [facility], 155, cm, [...] Nurse Name: Alejandro CENTENO, Elsa Peterson Position: [facility] Outreach Member Role: Primary Care Nurse Address: Address: [address] [place] [address]- Name: Emma Mendoza RN Position: [facility] AMB Nurse Member Role: Primary Care Nurse Name: Juan Manuel LIM, Kristen Acosta Position: [facility] Physician - Primary Care Member Role: PCP Address: Address: [address] [place] [phone]- Name: Anette Soler RN Position: [facility] Onco RN Member Role: Primary Care Nurse Name: Komal Goodrich Position: [facility] Outreach Member Role: Lifetime Consulting Physician Name: Godfrey Cano Position: [facility] RN Member Role: Primary Care Nurse Care Team Related Persons Name: DIOMEDES WARNER Address: [address] [place] [address] Name: MOO HOWELL Address: [address] [place] [address] Name: MARLON GENTILE
== END 2024-06-06 10:54 | disposition home or self-care (01) ==
LOC: HO.HUSH 10:02
PROVIDERS: PCP Family Medicine; Visit Provider Urology
DX: N39.0 Urinary tract infection, site not specified (principal); N31.9 Neuromuscular dysfunction of bladder, unspecified
CPT/HCPCS: 99213

== ENCOUNTER → 2024-06-06 10:02 | Outpatient (BNVA) | payer MEDICARE, MEDICAID, SELFPAY | PROVIDERS: PCP Family Medicine; Visit Provider Urology ==

== ENCOUNTER → 2024-09-15 13:20 | Outpatient (BNV) | payer MEDICARE, MEDICAID, SELFPAY | PROVIDERS: PCP Family Medicine; Visit Provider Specialist | DX: N20.0 Calculus of kidney (principal) | CPT/HCPCS: 76775 ==

== ENCOUNTER 2024-10-03 09:46 | Outpatient (AMB) | payer MEDICARE, MEDICAID, SELFPAY ==
--- NOTE | 2024-10-03 09:47 | MHC.OFFVIS ---
Intake Visit Reasons: 6m/US Intake Note: Pt presents in office today as a telehealth for a 6 month follow up/us ultrasound Allergies mercury (elemental) Allergy (Severe, Verified 10/03/24 09:47) Anaphylaxis Penicillins Allergy (Severe, Verified 10/03/24 09:47) Hives bupropion [From Wellbutrin] Allergy (Intermediate, Verified 10/03/24 09:47) Hives Iodinated Contrast Media [IV Contrast Dye] Allergy (Intermediate, Verified 10/03/24 09:47) Hives morphine Allergy (Intermediate, Verified 10/03/24 09:47) Hives metoclopramide [From Reglan] Adverse Reaction (Intermediate, Verified 10/03/24 09:47) Parkinson syndrome HPI Comments Details: Michelle is a pleasant female. She is a patient of Dr. Jean Baptiste. She is seen for following urologic conditions - multiple sclerosis - botox with indwelling catheter - neurogenic bladder - recurring UTIs - urosepsis after upper tract manipulation Telemedicine evaluation 15 minute consultation [employer] uday Video attempted Renal US normal Would stay on vitamin C and methanamine Switched to [employer] [facility] - uses Duette catheter 18 Gambian every 3 weeks - which appears to protect bladder - uses irrigation every other day Nephrolithiasis 03/05 Stent placed - left side 04/05 stent removal Had undergone procedure for stone - urosepsis presentation in February with ureteric stone Presented with urosepsis after 24 hrs with bladder spasms Culture enterococcus which was levaquin resistance On daptomycin for 4 weeks Responded well to daptomycin with complicated UTI However will require mid line if happens Neurogenic Bladder: Recurring urinary tract infection, bladder spasm Previously had Pseudomonas infection responsive to ciprofloxacin UTI appears to be decreasing with combination of Estrace, bladder irrigation - gram positive cocci Urinary retention initially found longstanding history. Diagnosed with multiple sclerosis approximately 15 years ago. Had been followed by Dr. Avina for many years Initially managed with clean intermittent catheterization Subsequently managed with indwelling Tran catheter Had been discussion of suprapubic tube placement however VNA nurses prevent this recurring uti 05/[address] Spencer and cystoscopy with removal of bladder stones - 12/01 cystoscopy Botox biopsy performed with chronic cystitis - 12/04 botox performed Botox Initial 03/01, 07/02, 10/31, 08/02, 05/04 200 units, 11/03 200 units Urine cultures - Pseudomonas fluoroquinolone resistant, citrobacter amp/cefazolin resistant Can only tolerate short course of fluroquinolones Has standing order for urine culture collection through VNA Previously used fosfomycin for catheter changes PFSH Medical History Bacteremia due to Enterococcus Recurrent UTI (urinary tract infection) Neurogenic bladder Urinary tract infection Wheelchair dependence Sacral decubitus ulcer Pulmonary emboli Cardiac arrest History of trigeminal neuralgia COVID-19 vaccine series completed Osteoporosis Neurogenic urinary bladder disorder NENO (obstructive sleep apnea) Parkinson's variant of multiple system atrophy Thyroid disease History of neurogenic bladder History of MRSA infection Hx of lymphoma Arthritis Back pain Hx pulmonary embolism DVT (deep venous thrombosis) Anemia Hiatal hernia Tran catheter in place Bladder stones Multiple sclerosis CVA (cerebral vascular accident) Myocardial infarction HTN (hypertension) Painful bladder spasm Surgical History Hx of hysterectomy Hx of lumpectomy Hx of vitrectomy History of intraocular lens implant Hx of adenoidectomy Hx of tonsillectomy Hx of laminectomy History of cystoscopy History of biopsy of bladder History of bladder surgery H/O colonoscopy Social History Household Members: None Housing: Apartment Are you a primary emergency care attendant to a significant other at home: No Do you presently have visiting nurse or other home services: Yes Patient Tobacco Use Status: Never used Tobacco Second Hand Smoke Exposure: No Advance Directives Date on File: 07/05/20 service: No Current occupational status: disabled Review of Systems Const All systems reviewed & are unremarkable except as noted in HPI and below Reports no additional complaints Resp Reports no additional complaints GI Reports no additional complaints Reports as per HPI Musc Reports no additional complaints Physical Exam Telemedicine evaluation Appropriate responses Regular breathing rate and rhythm HEENT Head: Yes normal to inspection Ears: hearing grossly normal bilaterally Eyes General: appearance normal, both eyes and all related structures Neck Neck: Yes normal visual inspection Chest Chest palpation & inspection: normal inspection of the chest Resp Effort & Inspection: normal respiratory effort and able to speak in complete sentences Telehealth Telehealth Telehealth Platform: Telephone Location of provider rendering services: practice address Location of patient: address on file Patient Identification confirmed using: Name, : Yes Telehealth method: voice only Patient verbally consented to treatment: Yes Patient verbally consented to billing insurance company: Yes Patient informed of any privacy concerns related to visit: Yes Assessment & Plan Assessment & Plan (1) Neurogenic bladder: Code(s): N31.9 - Neuromuscular dysfunction of bladder, unspecified Category: Medical (2) Recurrent UTI (urinary tract infection): Code(s): N39.0 - Urinary tract infection, site not specified Category: Medical Plan Treat current urinary tract Continue follow-up Medications: New fosfomycin tromethamine 3 grams PO Q3D 2 packets 0RF 2 doses N39.0 - Urinary tract infection, site not specified Patient Instructions: This note is constructed using voice recognition software. While every effort has been made to ensure accuracy senior software engineer analytics errors may have been included. Imaging studies, laboratory and physical exam results were discussed and reviewed in detail. No major barriers to patient understanding were identified. An opportunity to ask questions regarding the treatment plan was provided. All questions were answered. The patient expressed understanding and agreement with the above treatment plan. The patient is aware they should contact our office by phone for worsening of their current condition or the appearance of new urologic symptoms. Compliance is encouraged with any medications and followup testing that is ordered. It is a privilege to participate in the urologic care of your patient. If you have any questions or concerns regarding treatment for the above conditions, or other urologic issues, please do not hesitate to contact me. The office telephone contact is [phone]. Sincerely, Dr Gage Bass MD, [facility] - Urology Compassionate Specialist Care for the Genitourinary System Coding Level of Care Code Est Pt Level 4 (78558) Complex EM visit Add On G2211 Diagnoses Neurogenic bladder N31.9 Recurrent UTI (urinary tract infection) N39.0
--- OUTSIDE RECORDS SUMMARY | 2024-10-03 10:27 | XMS_ITS | Encounter Summary ---
Author Organization [facility] Address [address] [place] [address] [address] [place] [address] Care Team Providers Care Sidewalk Inspector Name Role Phone Unavailable Primary Care Provider Unavailabl e Encounter Details Date Type Department Care Team (Latest Contact Info) Description 02/10/2019 Abstract [facility] CONVERSIONS Dental, Provider, DDS Social History Tobacco Use Types Packs/Day Years Used Date Smoking Tobacco: Never Assessed Comments Unknown Sex and Gender Information Value Date Recorded Sex Assigned at Female 12/28/2022 9:29 AM EDT Legal Sex Female 5:35 PM EDT Gender Identity Female 12/28/2022 9:29 AM EDT Sexual Orientation Don't know 12/28/2022 9: 29 AM EDT documented as of this encounter Plan of Treatment Not on file documented as of this encounter Visit Diagnoses Not on filedocumented in this encounter
--- OUTSIDE RECORDS SUMMARY | 2024-10-03 10:27 | XMS_ITS | Encounter Summary ---
Author Organization [facility] Address [address] [place] [address] [address] [place] [address] Care Team Providers Care Black Top Paver Operator Name Role Phone Unavailable Primary Care Provider Unavailabl e Encounter Details Date Type Department Care Team (Latest Contact Info) Description 12/14/2020 Abstract [facility] CONVERSIONS Dental, Provider, DDS Social [...]
--- OUTSIDE RECORDS SUMMARY | 2024-10-03 10:27 | XMS_ITS | Data Portability ---
Author Organization [place] [facility]NOTE [facility] Address [address] [place] [id number] Care Team Providers Care Big 6 Dealer Name Role Phone ALVINA RODRIGUEZ Primary Care Provider [phone] Assessment Encounter Date Assessment Date Assessment LastModified by Organization Details LastModified Time 09/11/2020 09/11/2020 Lab Results BMP + ionized calcium, serum or plasma glu: 108mg/dL ? ref: 70-105 BUN: 22mg/dL ? ref: 8-26 crea: 0.6mg/dL ? ref: 0.6-1.3 Na: 141mmol/L ? ref: 138-146 K: 3.3mmol/L ? ref: 3.5-4.9 cL: 103mmol/L ? ref: 98-109 TCO2: 29mmol/L ? ref: 24-29 angap: 13mmol/L ? ref: 10-20 ica: 1.13mmol/L ? ref: 1.12-1.32 HCT: 41%pcv ? ref: 38-51 Hb: 13.9g/dL ? ref: 12-17 Time On Scene with Patient: 01:34:23 Not available 09/11/2020 17:05:39 10/18/2020 10/18/2020 Overview/History : Patient is a 65 year old alert female with chronic history, multiple co-morbidities and polypharmacy who presents with complaint of UTI symptoms x 6 days after having her permanent indwelling catheter changed. Patient is followed by her PCP, neurologist and Urologist closely. Patient recent history significant for increased incidence of UTI. Most recently, she consulted with her ID specialist, Dr. Chun Hernandez who assisted in prescribing her last course of antibiotic for her most recent UTI. Patient periodic Botox injection for her bladder is due; her last injection was 05/31/2020. Exam: Patient afebrile 97.8. HRR 76, S1, S2. Trachea midline, no JVD distention. Moist mucous membranes, no lymphadenopathy. Abdomen soft, rounded. There is painful response when palpating upper right quadrant with no organomegaly noted. The abdominal left and bilateral lower quadrants no painful response with palpation. No CVA tenderness, no suprapubic tenderness. There is an indwelling 16 FR [address] catheter in place, it is patent. There is some urinary leakage around lala catheter noted. 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 DDx considered, but not limited to: UTI likely given +++ blood, ++ leukocytes on dipstick Pyelonephritis considered, no CVA tenderness, afebrile Kidney stone considered Work up/Results: Urine dipstick +++ blood, ++ leukocytes Attempted to collect urine culture, patient did not produce enough urine Plan/Discussion: 1. Patient requests URINE CULTURE SENT TO [facility] EXCLUS[facility]ELY. 2. Contacted patient Urologist, unable to reach staff, I was able to leave a message for Urology staff to call to order urine culture through patient preferred lab. Left specimen cup for patient to collect urine. Proper Personal Protective Equipment (PPE), including gloves, eye protection, N95 mask, gown, and shoe covers were donned and doffed appropriately and all equipment cleaned using approved technique with germicidal disposable wipes prior to and after care of this patient according to [facility]'s infection prevention protocols. old patient records. This information was pertinent in my medical decision making today. Not available 10/18/2020 16:42:33 Plan of Treatment Reminders Order Date Submit Date Provider Last Modified By Organization Details Last Modified Time Details Appointments None recorded. Lab urinalysi s, dipstick 2020 021 [email or web address] [facility], [address], [place], [address], 14:55:32 culture, urine 2020 021 [facility], [address] [place], [address], 1 08:50:51 CBC w/ auto diff 2020 021 [facility], [address] [place], [address], 1 17:42:41 C-reactiv e protein, quantitat yomi, serum or plasma 2020 021 [facility], [address] [place], [address], 1 18:32:02 thyroid panel, serum 2020 021 [facility], [address] [place], [address], 1 18:32:06 urinalysi s, dipstick 2020 021 [email or web address] [facility], [address], [place], [address], 1 16:13:16 culture, urine - [facility] by [facility] 2020 021 [facility], [address] [place], [address], 1 10:27:25 BMP + ionized calcium, serum or plasma 2020 021 [facility], [address] [place], [address], 1 15:58:11 hepatic function panel, serum 2020 021 [email or web address] [facility], [address] [place], [address], 18:32:09 hepatic function panel, serum 2020 021 [email or web address] [facility], [address], [place], [address], 07:42:47 Referral None recorded. Procedures None recorded. Surgeries None recorded. Imaging None recorded. Medication Orders Pyridium 100 mg tablet 2020 021 [id number], [address] [facility], [place], [address], 16:39:01 potassium chloride ER 10 mEq tablet,ex tended release 2020 [email or web address] Not available 11:44:01 Patient TargetsNo targets recorded. Patient Instructions Encounter Date Encounter Id Patient Instructions Last Modified By Organization Details Last Modified Time 09/11/2020 [id number] URINARY TRACT INFECTION INSTRUCTIONS BASIC INFORMATION Urinary tract infections(UTI) can involve any portion of the urinary tract. The most common presentation is a bladder infection/cystitis , which usually presents with urinary frequency, burning with urination, urgency, foul smelling cloudy urine and occasionally blood. Kidney infections are less frequent, but more serious, and present with fever, flank pain, malaise and sometimes shaking chills. UTI? s are common in women because of the female anatomy, and much less common in males. INSTRUCTIONS Drink plenty of fluid, water is best. Drinking fluids will help to flush the bacteria from your body. Urinate every 2-3 hours Wear cotton underwear and avoid Nylon, Spandex and Lycra which tend to trap moisture and thong underwear which may facilitate UTI? s . Avoid tub baths Avoid using Super Tampons Use only mild unscented soap to wash your genitals, such as Dove or Ivory, avoid heavily scented body washes. If you are sexually active urinate as soon as possible after intercourse. Yogurt and probiotics may help to establish a more healthy genital environment, and aid in prevention. MEDICATIONS 1.Antibiotics: Usually prescribed if you have a UTI, there are many different effective antibiotics available. It is important that you complete the course of antibiotics you are given. You should feel some improvement within 24-48 hours, if you do not it may be that the bacteria causing your infection is resistant to the prescribed medication. If a urine culture is obtained it will usually take at least 3-4 days to get the final result. 2. Anesthetic/Pain relievers: Phenazopyridine (Pyridium, Uribelle, AZO) is an anesthetic excreted in the urine. This medicine will turn your urine BRIGHT ORANGE! This is normal, and may stain your underwear can contacts. Take this medication as directed with food. 3. Tylenol and Ibuprofen can be helpful for the pain, fever and body aches that can be associated with a kidney infection. Please follow recommended dosing instructions on the bottle. FOLLOW UP 1. If your symptoms are not improving in 24-48 hours 2. If your symptoms are getting more severe 3. Any unusual vaginal discharge 4. Symptoms recur after you complete medication SEEK CARE IMMEDIATELY IF 1.You have shaking chills or temperature over 101.5 2. Severe flank pain 3. Persistent vomiting, unable to keep fluids or medicine down. 4. Worse despite medication. If you develop any new or worsening symptoms and need after hours care, please go to nearest ER and/or call 911. If you have additional concerns or develop a change in your condition between 8am-10pm, please call [facility] at [phone] to help navigate your care. Not available 09/11/2020 15:12:07 : 150 2 Freddie Luna BLADDER TRIMMER: Pts urine culture results reviewed with patient. Pt has had some improvement of hallucinations after decreasing baclofen under direction of neurologist. Pt is still concerned with her urine culture results. No urinary symptoms but still not feeling right. She has a urologist (Dr. Bass) whose office did not feel patient had infection. Urine culture results were faxed to this office. Attempt to speak with provider in the office unsuccessful. Review of culture report and review of allergies with patient. A prescription was faxed to patients pharmacy for cephalexin. Pt was advised to seek re-evaluation with any symptoms that are concerning for her. She will be calling Dr. Bass's office for re-evaluation as well. DOROTHY [email or web address] Not available 09/14/2020 15:12:17 10/18/2020 [id number] BASIC INFORMATIO N Urinary tract infections(UTI) can involve any portion of the urinary tract. The most common presentation is a bladder infection/cystitis , which usually presents with urinary frequency, burning with urination, urgency, foul smelling cloudy urine and occasionally blood. Kidney infections are less frequent, but more serious, and present with fever, flank pain, malaise and sometimes shaking chills. UTI? s are common in women because of the female anatomy, and much less common in males. INSTRUCTIONS Drink plenty of fluid, water is best. Drinking fluids will help to flush the bacteria from your body. Urinate every 2-3 hours Wear cotton underwear and avoid Nylon, Spandex and Lycra which tend to trap moisture and thong underwear which may facilitate UTI? s . Avoid tub baths Avoid using Super Tampons Use only mild unscented soap to wash your genitals, such as Dove or Ivory, avoid heavily scented body washes. If you are sexually active urinate as soon as possible after intercourse. Yogurt and probiotics may help to establish a more healthy genital environment, and aid in prevention. MEDICATIONS 1.Antibiotics: Usually prescribed if you have a UTI, there are many different effective antibiotics available. It is important that you complete the course of antibiotics you are given. You should feel some improvement within 24-48 hours, if you do not it may be that the bacteria causing your infection is resistant to the prescribed medication. If a urine culture is obtained it will usually take at least 3-4 days to get the final result. 2. Anesthetic/Pain relievers: Phenazopyridine (Pyridium, Uribelle, AZO) is an anesthetic excreted in the urine. This medicine will turn your urine BRIGHT ORANGE! This is normal, and may stain your underwear can contacts. Take this medication as directed with food. 3. Tylenol and Ibuprofen can be helpful for the pain, fever and body aches that can be associated with a kidney infection. Please follow recommended dosing instructions on the bottle. FOLLOW UP 1. If your symptoms are not improving in 24-48 hours 2. If your symptoms are getting more severe 3. Any unusual vaginal discharge 4. Symptoms recur after you complete medication SEEK CARE IMMEDIATELY IF 1.You have shaking chills or temperature over 101.5 2. Severe flank pain 3. Persistent vomiting, unable to keep fluids or medicine down. 4. Worse despite medication. If you develop any new or worsening symptoms and need after hours care, please go to nearest ER and/or call 911. If you have additional concerns or develop a change in your condition between 8am-10pm, please call [facility] at [phone] to help navigate your care. Not available 10/18/2020 15:43:27 Reason for Referral None Reported. Results Created Date Observation Date Name Description Value Unit Range Abnormal Flag Note LastModifiedBy Organization Detail LastModifiedTime 09/11/19 21 09/11/2020 CBC w/ auto diff WBC 8.4 K/mm3 (4.0-1 1.0) Not Available [facility] [address] [place], [address], 09/11/2020 17:42:41 09/11/19 21 09/11/2020 CBC w/ auto diff RBC 4.20 M/mm3 (4.20- 5.40) Not Available [facility] [address] [place], [address], 09/11/2020 17:42:41 09/11/19 21 09/11/2020 CBC w/ auto diff HGB 12.6 gm/dL (11.7- 15.5) Not Available [facility] [address] [place], [address], 09/11/2020 17:42:41 09/11/19 21 09/11/2020 CBC w/ auto diff HCT 41.0 % (35.7- 45.8) Not Available [facility] [address] [place], [address], 09/11/2020 17:42:41 09/11/1909/11/2020 CBC w/ auto diff MCV 97.6 fL (80.0- 100.0) Not Available [facility] [address] [place], [address], 09/11/2020 17:42:41 09/11/19 21 09/11/2020 CBC w/ auto diff MCH 30.0 pg (27.0- 34.0) Not Available [facility] [address] [place], [address], 09/11/2020 17:42:41 09/11/19 21 09/11/2020 CBC w/ auto diff MCHC 30.7 g/dL (33.0- 37.0) low Not Available [facility] [address] [place], [address], 09/11/2020 17:42:41 09/11/19 21 09/11/2020 CBC w/ auto diff plt 352 K/mm3 (150-4 60) Not Available [facility] [address] [place], [address], 09/11/2020 17:42:41 09/11/19 21 09/11/2020 CBC w/ auto diff RDW-SD 47.0 fL (<47.0 ) high Not Available [facility] [address] [place] [place], [address], 09/11/2020 17:42:41 09/11/19 21 09/11/2020 CBC w/ auto diff MPV 10.2 fL (9.4-1 2.4) Not Available [facility] [address] [place], [address], 09/11/2020 17:42:41 09/11/19 21 09/11/2020 CBC w/ auto diff automated NRBC 0.0 #/100 _WBC' s Not Available [facility] [address] [place], [address], 09/11/2020 17:42:41 09/11/19 21 09/11/2020 CBC w/ auto diff abs. NRBC 0.0 K/mm3 Not Available [facility] [address] [place], [address], 09/11/2020 17:42:41 09/11/19 21 09/11/2020 CBC w/ auto diff neut # 4.5 K/mm3 (1.3-7 .0) Not Available [facility] [address] [place], [address], 09/11/2020 17:42:41 09/11/19 21 09/11/2020 CBC w/ auto diff lymph # 3.1 K/mm3 (0.8-3 .1) Not Available [facility] [address] [place], [address], 09/11/2020 17:42:41 09/11/19 21 09/11/2020 CBC w/ auto diff mono# 0.6 K/mm3 (0.4-0 .9) Not Available [facility] [address] [place], [address], 09/11/2020 17:42:41 09/11/19 21 09/11/2020 CBC w/ auto diff eo # 0.1 K/mm3 (0.0-0 .4) Not Available [facility] [address] [place], [address], 09/11/2020 17:42:41 09/11/19 21 09/11/2020 CBC w/ auto diff baso # 0.1 K/mm3 (0.0-0 .1) Not Available [facility] [address] [place], [address], 09/11/2020 17:42:41 09/11/19 21 09/11/2020 CBC w/ auto diff abs. imm gran 0.0 K/mm3 Not Available [facility] [address] [place], [address], 09/11/2020 17:42:41 09/11/19 21 09/11/2020 CBC w/ auto diff neut 53.8 % (44-76 ) Not Available [facility] [address] [place], [address], 09/11/2020 17:42:41 09/11/19 21 09/11/2020 CBC w/ auto diff lymph 37.3 % (15-43 ) Not Available [facility] [address] [place], [address], 09/11/2020 17:42:41 09/11/19 21 09/11/2020 CBC w/ auto diff monocyte 6.5 % (4.5-1 0.5) Not Available [facility] [address] [place], [address], 09/11/2020 17:42:41 09/11/19 21 09/11/2020 CBC w/ auto diff eo 1.2 % (0-6) Not Available [facility] [address] [place], [address], 09/11/2020 17:42:41 09/11/19 21 09/11/2020 CBC w/ auto diff baso 0.7 % (0-2) Not Available [facility] [address] [place], [address], 09/11/2020 17:42:41 09/11/19 21 09/11/2020 CBC w/ auto diff imm gran 0.5 % Not Available [facility] [address] [place], [address], 09/11/2020 17:42:41 09/11/19 21 09/11/2020 C-jeanna ctive prote in, quant itati ve, serum or plasm a C-reactive protein 1.2 mg/dL (0-0.5 ) high Not Available [facility] [address] [place], [address], 09/11/2020 18:32:02 09/11/19 21 09/11/2020 thyro id panel , serum free T4 1.55 NG/dL (0.70- 1.80) Not Available [facility] [address] [place], [address], 09/11/2020 18:32:05 09/11/19 21 09/11/2020 thyro id panel , serum TSH 1.27 uIU/m L (0.4-4 .00) Not Available [facility] [address] [place], [address], 09/11/2020 18:32:05 09/11/19 21 09/11/2020 hepat ic funct ion panel , serum bilirubin,to jenna <0.2 mg/dL (0-1.2 ) Not Available [facility] [address] [place], [address], 09/11/2020 18:32:09 09/11/19 21 09/11/2020 hepat ic funct ion panel , serum bilirubin, direct <0.2 mg/dL (0-0.3 ) Not Available [facility] [address] [place], [address], 09/11/2020 18:32:09/11/19 21 09/11/2020 hepat ic funct ion panel , serum indirect bilirubin mg/dL (0.0-0 .7) Total bilir ubin is less than the measu reabl e limit . There fore, indir ect bilir ubin canno t be calcu lated . Not Available [facility] [address] [place], [address], 09/11/2020 18:32:09 09/11/19 21 09/11/2020 hepat ic funct ion panel , serum albumin 4.3 gm/dL (3.4-4 .8) Not Available [facility] [address] [place], [address], 09/11/2020 18:32:09/11/19 21 09/11/2020 hepat ic funct ion panel , serum AST 25 U/L (0-32) Not Available [facility] [address] [place], [address], 09/11/2020 18:32:09 09/11/19 21 09/11/2020 hepat ic funct ion panel , serum ALT 31 U/L (0-33) Not Available [facility] [address] [place], [address], 09/11/2020 18:32:09 09/11/19 21 09/11/2020 hepat ic funct ion panel , serum alk phos 79 U/L (35-10 4) Not Available [facility] [address] [place], [address], 09/11/2020 18:32:09 09/11/19 21 09/11/2020 hepat ic funct ion panel , serum total protein 7.7 gm/dL (6.2-8 .2) Not Available [facility] [address], [address], 09/11/2020 18:32:09 09/11/19 21 09/11/2020 cultu re, urine specimen description URINE Not Available [facility] [address] [place], [address], 09/13/2020 10:27:25 09/11/19 21 09/11/2020 cultu re, urine special requests NONE Not Available [facility] [address], [address], 09/13/2020 10:27:25 09/11/19 21 09/13/2020 cultu re, urine culture >100,0 00 COL/ML PSEUDO MONAS AERUGI NOSA abnormal Not Available [facility] [address], [address], 09/13/2020 10:27:25 09/11/19 21 09/13/2020 cultu re, urine report status FINAL 2020 Not Available [facility] [address] [place], [address], 09/13/2020 10:27:25 09/11/19 21 09/13/2020 cultu re, urine organism ORGANI SM >100,0 00 COL/ML PSEUDO MONAS AERUGI NOSA Not Available [facility] [address] [place], [address], 09/13/2020 10:27:25 09/11/19 21 09/13/2020 cultu re, urine method METHOD MIN. INHIB. CONC. (MCG/M L) Not Available [facility] [address] [place], [address], 09/13/2020 10:27:25 09/11/19 21 09/13/2020 cultu re, urine cefepime CEFEPI ME SUSCEP TIBLE susceptib le Not Available [facility] [address] [place], [address], 09/13/2020 10:27:25 09/11/19 21 09/13/2020 cultu re, urine ceftazidime CEFTAZ IDIME SUSCEP TIBLE susceptib le Not Available [facility] [address] [place], [address], 09/13/2020 10:27:25 09/11/19 21 09/13/2020 cultu re, urine ciprofloxaci n CIPROF LOXACI N SUSCEP TIBLE susceptib le Not Available [facility] [address] [place], [address], 09/13/2020 10:27:25 09/11/19 21 09/13/2020 cultu re, urine gentamicin GENTAM ICIN SUSCEP TIBLE susceptib le Not Available [facility] [address] [place], [address], 09/13/2020 10:27:25 09/11/19 21 09/13/2020 cultu re, urine levofloxacin LEVOFL OXACIN SUSCEP TIBLE susceptib le Not Available [facility] [address] [place], [address], 09/13/2020 10:27:25 09/11/19 21 09/13/2020 cultu re, urine meropenem MEROPE NEM SUSCEP TIBLE susceptib le Not Available [facility] [address] [place], [address], 09/13/2020 10:27:25 09/11/19 21 09/13/2020 cultu re, urine piperacillin /tazobactam PIPERA CILLIN /TAZOB AC SUSCEP TIBLE susceptib le Not Available [facility] [address], [place], [address], 09/13/2020 10:27:25 09/11/19 21 09/11/2020 urina lysis , dipst ick Appearance cloudy Not Available [facility] [address], [place], [address], 09/11/2020 15:12:10 09/11/19 21 09/11/2020 urina lysis , dipst ick Color yellow Not Available [facility] [address], [place], [address], 09/11/2020 15:12:10 09/11/19 21 09/11/2020 urina lysis , dipst ick Glucose negati ve Not Available [facility] [address], [place], [address], 09/11/2020 15:12:10 09/11/19 21 09/11/2020 urina lysis , dipst ick Bilirubin negati ve Not Available [facility] [address], [place], [address], 09/11/2020 15:12:10 09/11/19 21 09/11/2020 urina lysis , dipst ick Ketones NEG Not Available [facility] [address], [place], [address], 09/11/2020 15:12:10 09/11/19 21 09/11/2020 urina lysis , dipst ick Sp. [place] 1.020 Not Available [facility] [address], [place], [address], 09/11/2020 15:12:10 09/11/19 21 09/11/2020 urina lysis , dipst ick Blood +++ Not Available [facility] [address], [place], [address], 09/11/2020 15:12:10 09/11/19 21 09/11/2020 urina lysis , dipst ick pH 6.0 Not Available [facility] [address] [place], [address], 09/11/2020 15:12:10 09/11/19 21 09/11/2020 urina lysis , dipst ick Protein positi ve Not Available [facility] - [facility] [address] [place], [address], 09/11/2020 15:12:10 09/11/1909/11/2020 urina lysis , dipst ick Urobilirubin negati ve Not Available [facility] - [facility] [address], [place], [address], 09/11/2020 15:12:10 09/11/19 21 09/11/2020 urina lysis , dipst ick Nitrites NEG Not Available [facility] - [facility] [address], [place], [address], 09/11/2020 15:12:10 09/11/19 21 09/11/2020 urina lysis , dipst ick Leukocytes ++ Not Available [facility] [address], [place], [address], 09/11/2020 15:12:10 09/11/1909/11/2020 BMP + ioniz ed calci um, serum or plasm a glu 108 mg/dL 70-105 Not Available [facility] [address] [place], [address], 09/11/2020 15:58:11 09/11/19 21 09/11/2020 BMP + ioniz ed calci um, serum or plasm a BUN 22 mg/dL 8-26 Not Available [facility] [address] [place], [address], 09/11/2020 15:58:11 09/11/19 21 09/11/2020 BMP + ioniz ed calci um, serum or plasm a crea 0.6 mg/dL 0.6-1. 3 Not Available [address], [address], 09/11/2020 15:58:11 09/11/19 21 09/11/2020 BMP + ioniz ed calci um, serum or plasm a Na 141 mmol/ L 138-14 6 Not Available [address], [address], 09/11/2020 15:58:11 09/11/19 21 09/11/2020 BMP + ioniz ed calci um, serum or plasm a K 3.3 mmol/ L 3.5-4. 9 Not Available [address], [address], 09/11/2020 15:58:11 09/11/19 21 09/11/2020 BMP + ioniz ed calci um, serum or plasm a cL 103 mmol/ L 98-109 Not Available [address], [address], 09/11/2020 15:58:11 09/11/19 21 09/11/2020 BMP + ioniz ed calci um, serum or plasm a TCO2 29 mmol/ L 24-29 Not Available [address], [address], 09/11/2020 15:58:11 09/11/19 21 09/11/2020 BMP + ioniz ed calci um, serum or plasm a angap 13 mmol/ L 10-20 Not Available [address], [address], 09/11/2020 15:58:11 09/11/19 21 09/11/2020 BMP + ioniz ed calci um, serum or plasm a ica 1.13 mmol/ L 1.12-1 .32 Not Available [facility] [address] [place], [address], 09/11/2020 15:58:11 09/11/19 21 09/11/2020 BMP + ioniz ed calci um, serum or plasm a HCT 41 %pcv 38-51 Not Available [facility] [address] [place], [address], 09/11/2020 15:58:11 09/11/19 21 09/11/2020 BMP + ioniz ed calci um, serum or plasm a Hb 13.9 g/dL 12-17 [facility] Available [facility] [address] [place], [address], 09/11/2020 15:58:11 10/19/19 21 10/18/2020 urina lysis , dipst ick Appearance cloudy Not Available [facility] [address] [address] [place], [address], 10/18/2020 14:24:25 10/19/19 21 10/18/2020 urina lysis , dipst ick Color urine Not Available [facility] - Home [address] [place], [address], 10/18/2020 14:24:25 10/19/19 21 10/18/2020 urina lysis , dipst ick Glucose negati ve Not Available [facility] - [facility] [address] [place], [address], 10/18/2020 14:24:25 10/19/19 21 10/18/2020 urina lysis , dipst ick Bilirubin negati ve Not Available [facility] - [facility] [address] [place], [address], 10/18/2020 14:24:25 10/19/19 21 10/18/2020 urina lysis , dipst ick Ketones NEG Not Available [facility] - Home [address] [place], [address], 10/18/2020 14:24:25 10/19/19 21 10/18/2020 urina lysis , dipst ick Sp. [place] 1.030 Not Available [facility] - Home [address] [place], [address], 10/18/2020 14:24:25 10/19/19 21 10/18/2020 urina lysis , dipst ick Blood +++ Not Available [facility] - Home [address] [place], [address], 10/18/2020 14:24:25 10/19/19 21 10/18/2020 urina lysis , dipst ick pH 5.0 Not Available [facility] - Home [address] [place], [address], 10/18/2020 14:24:25 10/19/19 21 10/18/2020 urina lysis , dipst ick Protein positi ve Not Available [facility] [address] [place], [address], 10/18/2020 14:24:25 10/19/19 21 10/18/2020 urina lysis , dipst ick Urobilirubin negati ve Not Available Spr - Home [address], [place], [address], 10/18/2020 14:24:25 10/19/19 21 10/18/2020 urina lysis , dipst ick Nitrites NEG Not Available Spr - [facility] [address] [place], [address], 10/18/2020 14:24:25 10/19/19 21 10/18/2020 urina lysis , dipst ick Leukocytes ++ Not Available Spr - ome [address] [place], [address], 10/18/2020 14:24:25 Result Notes None recorded. Procedures Surgical History Date Name Laterality Status Provider Name and Address Organization Details Recorded Time 10/19/19 21 Lala Catheter Insertion - completed Ana Luisa Mendez, JACOBO [address], [place], [address], [place] [facility] 10/18/2020 16:43:11 09/11/19 21 Venipuncture - completed Ana Luisa Mendez NP [address], [place], [address], [place] [facility] 09/11/2020 17:40:06 09/11/19 21 Straight Cath - completed Ana Luisa Mendez NP [address], [place], [address], [place] [facility] 09/11/2020 17:40:33 Imaging Results None recorded. Procedure Notes None recorded. Medical Equipment None Reported. Allergies Allergen ID Allergen Name Allergen Category Reaction Reaction Severity Criticality Documentation Date Start Date Code Code System Note Provider Name and Address Organization Details Recorded Time [id number] mercury medicatio n Not available Not available Not available 09/11/2020 6769 RxNorm Ana Luisa Mendez NP [address] [facility] [place], [address], [place] [facility] 14:56:03 282821 Product containin g penicilli n (product) medicatio n Not available Not available Not available 09/11/2020 37522 8001 SNOMED Ana Luisa Mendez NP [address] [facility] [place], [address], [place] [facility] 14:56:28 [id number] morphine medicatio n Not available Not available Not available 09/11/2020 7052 RxNorm Ana Luisa Mendez NP [address] [facility] [place], [address], [place] [facility] 14:56:34 235118 Reglan medicatio n Not available Not available Not available 09/11/2020 9230 RxNorm Ana Luisa Mendez NP [address] [facility] [place], [address], [place] [facility] 14:57:20 213240 Wellbutri n medicatio n Not available Not available Not available 09/11/2020 51886 RxNorm Ana Luisa Ev Mendez, BLADDER TRIMMER [address], [facility] [place], [address], [place] [facility] 14:57:51 254732 iodine medicatio n Not available Not available Not available 09/11/2020 5933 RxNorm Ana Luisaflip Mendez, BLADDER TRIMMER [address], [facility] [place], [address], [place] [facility] 14:59:44 Medications Name Sig Start Date Stop Date Status Note LastModified by Organization Details LastModified Time furosemide 40 mg tablet active Not Available Not Available Not Available ascorbic acid (vitamin C) 1,000 mg tablet TAKE 1 TABLET BY MOUTH TWICE A DAY active Not Available Not Available No t Available cefpodoxime 200 mg tablet TAKE 1 TABLET BY MOUTH TWICE A DAY 10/18 completed Not Available Not Available Not Available Lidocaine Viscous 2 % mucosal solution active Not Available Not Available Not Available nystatin 100,000 unit/gram topical ointment active Not Available Not Available Not Available alendronate 70 mg tablet PLEASE SEE ATTACHED FOR DETAILED DIRECTION S active Not Available Not Available No t Available Milk of Magnesia 400 mg/5 mL oral suspension TAKE 30 60 ML BY MOUTH NIGHTLY AT BEDTIME NEEDED. 09/11 completed Not Available Not Available Not Available bacitracin 500 unit/gram topical ointment APPLY TO AFFECTED AREA TWICE A DAY X 14 DAY (OTC NOT COVERED) active Not Available Not Available No t Available potassium chloride ER 10 mEq tablet,exte nded release 40 mEq PO administe red on scene. Time administe red: 4:18 2020 active Not Available Not Available Not Avai lable lidocaine HCl 2 % mucosal jelly active Not Available Not Available Not Available melatonin 3 mg tablet TAKE 1 TABLET BY MOUTH NIGHTLY AT BEDTIME NEEDED. active Not Available Not Available No t Available ciprofloxac in 500 mg tablet TAKE 1 TABLET BY MOUTH TWICE A DAY FOR 5 DAYS active Not Available Not Available No t Available sulfamethox azole 800 mg-trimetho prim 160 mg tablet PLEASE SEE ATTACHED FOR DETAILED DIRECTION S 10/18 completed Not Available Not Available Not Available baclofen 20 mg tablet TAKE 2 TABLETS (40 MG TOTAL) BY MOUTH 4 TIMES A DAY. active Not Available Not Available No t Available levothyroxi ne 88 mcg tablet active Not Available Not Available Not Available ceftriaxone 1 gram solution for injection 09/11 completed Not Available Not Available Not Available methenamine hippurate 1 gram tablet TAKE 1 TABLET (1 G TOTAL) BY MOUTH 2 (TWO) TIMES A DAY WITH MEALS active Not Available Not Available No t Available Mapap (acetaminop hen) 500 mg capsule TAKE 2 CAPSULES BY MOUTH 3 TIMES A DAY. active Not Available Not Available No t Available phenazopyri dine 100 mg tablet TAKE 1 TABLET BY MOUTH 3 TIMES A DAY FOR 7 DAYS DIRECTED active Not Available Not Available No t Available cephalexin 500 mg capsule Take 1 capsule every 6 hours by oral route for 7 days. 2020 active Not Available Not Available Not Avai lable nitrofurant oin macrocrysta l 100 mg capsule TAKE 1 CAPSULE BY MOUTH TWICE A DAY FOR 10 DAYS WITH A MEAL/FOOD 09/11 completed Not Available Not Available Not Available triamcinolo ne acetonide 0.1 % topical ointment active Not Available Not Available Not Available metronidazo le 0.75 % topical cream 09/11 completed Not Available Not Available Not Available gabapentin 300 mg capsule active Not Available Not Available Not Available lisinopril 5 mg tablet TAKE 1 TABLET BY MOUTH EVERY DAY active Not Available Not Available No t Available cefuroxime axetil 500 mg tablet TAKE 1 TABLET (500 MG TOTAL) BY MOUTH 2 (TWO) TIMES A DAY FOR 12 DAYS. 10/18 completed Not Available Not Available Not Available polyethylen e glycol 3350 17 gram/dose oral powder MIX 1 CAPFUL (17 GM) OF MEDICATIO N INTO 6 8 OZ OF WATER OR BEVERAGE AND DRINK ONCE BY MOUTH DAILY active Not Available Not Available No t Available levofloxaci n 500 mg tablet TAKE 1 TABLET BY MOUTH EVERY DAY FOR 7 DAYS active Not Available Not Available No t Available estradiol 0.01% (0.1 mg/gram) vaginal cream PEA SIZED TO URETHRA DAILY active Not Available Not Available No t Available levofloxaci n 750 mg tablet TAKE 1 TABLET BY MOUTH EVERY DAY FOR 5 DAYS 09/11 completed Not Available Not Available Not Available Provigil 200 mg tablet TAKE 1 TABLET BY MOUTH TWICE A DAY active Not Available Not Available No t Available Pneumovax-2 3 25 mcg/0.5 mL injection syringe PHARMACY ADMINISTE RED active Not Available Not Available No t Available nitrofurant oin monohydrate /macrocryst als 100 mg capsule TAKE 1 CAPSULE BY MOUTH TWICE A DAY 09/11 completed Not Available Not Available Not Available lactulose 10 gram/15 mL oral solution TAKE 15 MLS BY MOUTH TWICE A DAY NEEDED FOR CONSTIPAT ION (TITRATE TO ONE TO 2 STOOLS/DA Y) active Not Available Not Available No t Available Fosamax active Not Available Not Avail able Not Available Calmoseptin e 0.44 %-20.6 % topical ointment APPLY TO AFFECTED AREA 3 TIMES A DAY *NOT COVERED* active Not Available Not Available No t Available Xarelto 20 mg tablet TAKE 1 TABLET BY MOUTH EVERY DAY WITH DINNER active Not Available Not Available No t Available Enemeez 283 mg/[address] 1 ENEMA (283 MG TOTAL) RECTALLY DAILY NEEDED. active Not Available Not Available No t Available Eliquis 5 mg tablet active Not Available Not Available No t Available PreviDent 5000 Ortho Defense 1.1 % dental paste BRUSH ONCE DAILY ONTO TEETH, LET SIT FOR SEVERAL MINS THEN RINSE MOUTH OUT DO NOT SWALLOW active Not Available Not Available No t Available Fluad Quad 0464-1331(6 5yr up)(PF) 60 mcg (15 mcg x 4)/0.5mL IM syringe TO BE ADMINISTE RED BY PHARMACIS T FOR IMMUNIZAT ION active Not Available Not Available No t Available Vitals Date Recorded Heart rate Oxygen saturation Oxygen saturation in Arterial blood by Pulse oximetry Respiratory rate Body temperature Systolic blood pressure Diastolic blood pressure Provider Name and Address Organization Details Last Updated DateTime 1 76 /min 98 % 98 % 20 /min 97.5 [degF] 120 mm[Hg] 70 mm[Hg] Not Available [facility] 1 15:04:18 Date Recorded Body temperature Respiratory rate Oxygen saturation Oxygen saturation in Arterial blood by Pulse oximetry Heart rate Systolic blood pressure Diastolic blood pressure Provider Name and Address Organization Details Last Updated DateTime 1 97.8 [degF] 20 /min 100 % 100 % 76 /min 132 mm[Hg] 78 mm[Hg] Not Available [facility] 14:20:59 Social History Question Answer Notes LastModified by Organizat ion Details LastModified Time Tobacco Smoking Status Never Smoker Ana Luisa Mendez, JACOBO [address], [place], [address], [place] [facility] 09/11/2020 15:04:27 Do You Have An Advance Directive? Yes Information not available 09/11/2020 What Is Your Code Status? DNR Information not available 09/11/2020 Within The Past 12 Months, Has It Happened That The Food You Bought Just Didn't Last And You Didn't Have Money To Get More. No Information not available 09/11/2020 Within The Past 12 Months, Have You Worried That Your Food Would Run Out Before You Got Money To Buy More. No Information not available 09/11/2020 Fall Risk: Do You Feel Unsteady When Standing Or Walking? No Patient Is Bedbound Information not available 09/11/2020 We Know That How And When People Interact With Friends And Family Can Be Very Different From Person To Person. How Often Do You Have The Opportunity To See Or Talk To People That You Care About And Feel Close To? (Ex: Talking To Friends On The Phone Or Visiting Friends Or Family Or Going To Shinto Or Club Meetings) 1 Or 2 Times Per Week Information not available 09/11/2020 Excessive Alcohol Or Drug Use No Information not available 09/11/2020 We Know From Many Of Our Patients That Covering All Of Their Costs Can Be Difficult At Times. This Can Cause Stress And Impact Health. In The Past Year, Have You Been Unable To Get Any Of The Following When It Was Really Needed? No Information not available 09/11/2020 What Is Your Housing Situation Today? I Have Housing Information not available 09/11/2020 Would You Like Help Connecting To Resources? None Information not available 09/11/2020 Sex: Unknown Functional Status None recorded. Mental Status None recorded. Family History Relationship Description Onset Age of this Age Resolved Age Notes LastModified by Organization Details LastModified Time Mother Malignant neoplastic disease Not available 2020 15:03:05 Mother Coronary arterioscler osis Not available 2020 15:03:43 Mother Parkinson's disease Not available 2020 15:04:00 Father Heart disease Not available 2020 15:03:29 Medical History Condition Response Diabetes N Coronary Artery Disease N Cancer Y Stroke Y COPD N Depression N Asthma N High Cholesterol N Pulmonary Embolism Y Hypertension Y Kidney Disease N Gynecological HistoryNo gynecological history recorded. Obstetrics History GPAL:G 0 P 0 0 0 0 Past Encounters Encounter ID Performer Location Encounter Start Date Encounter Closed Date Diagnosis/Indication Diagnosis SNOMED-CT Code Diagnosis ICD10 Code Diagnosis Note [id number] FREDDIE LUNA NP [facility] - [facility] [address] [place] [address] 09/11/2020 14:53:42 09/14/2020 10:11:55 Urinary tract infectious disease 15218169 N39.0 Vitamin B1 2 deficiency (non anemic) 44778494 E53.8 Hypokalemia 29840308 E87 .6 Overview/H istory: Patient is a 65 year old female who is alert and oriented. She does have some difficulty with word expression due to her history of aphasia, but is able to articulate clearly. Patient requests evaluation for possible UTI this visit and possible stage one wound to her right labia. She has had intermitte nt low grade fevers. This past week, patient and her caregiver personnel have noted episodic auditory and visual hallucinat ion that have occurred in the evening. In the past, patient has suffered toxic metabolic encephalop athy associated with UTI. Patient did consult with her PCP and neurologis t regarding changes in her mentation and she was referred to for evaluation over concerns of exposure in the ED. Patient has yet to confer with her Urologist due to Covid. Exam: Patient afebrile 97.5. HRR 76, S1, S2. LSCTA bilaterall y, no work of breathing, speaking in full sentences. Trachea midline, no JVD distention . Head normocepha lic, normal ENT exam findings. No lymphadeno jonathan, moist mucous membranes. Abdomen soft, rounded, + bowel sounds x 4 quadrants. No CVA tenderness , no suprapubic tenderness . 16FR lala catheter patent, draining cloudy yellow urine. C2-C12 intact. Patient upper extremitie s normal reflexes, equal sensation, strength 5/5. Patient LE flaccid, foot drop, minimal sensation noted to right foot. strength 0/0 bilaterall y to LE. Patient skin intact, yeimi anal area intact, skin turgor wnl. DDx considered , but not limited to:Baclofe n withdrawal , patient dose recently decreased from 120 mg q day to 80 mg q daytoxic metabolic encephalop athy considered , possible UTI, hypokalemi ahypokalem ia 3.3 UTI may be likely ++ leukocytes on dipstick B12 deficiency Work up/Results :1. ISTAT 8: K+ 3.32. Urine dipstick: ++ leukocytes , +++ blood, + protein, 3. Urine culture4. CBC with Differenti al, CRP, LFT's, B12, TSH5. Changed patient lala catheter to obtain sterile sample, 16 FR using sterile technique and sterile lidocaine. Patient and intact, draining yellow urine. Plan/Discu ssion:1. Replace potassium this visit with 40 meq potassium po, patient tolerated well; eat potassium rich foods.1. Contact patient with urine culture results, abx if indicated2 . Contact patient and PCP, neurologis t, Urologist with lab results/ur ine culture Discussed s/s to report to PCP, neurologis t, Urologist. discussed acute s/s to report to ED/call 911 with regards to increased confusion, auditory and visual hallucinat ions, pain, fever, nausea/vom iting/diar zay. Patient is able to repeat all discussed. No questions at time. Time on-scene represents total face to face time with patient. More than 50% of the visit was spent in counseling /coordinat ion of the patient's care. Topics discussed include: Diagnostic results and impression s, instructio ns for management /plan, follow up care/refer rals and patient and/or family education. I also reviewed {{new medication s, use and side effects* prognosis of condition importance of compliance with treatment options risk factor reductions changes in the patient's medical condition lifestyle changes end of life care.}} I specifical ly discussed ___medicat ion reconcilia tion, baclofen withdrawal . In order to obtain further informatio n and compare any laboratory results/va lues, I have accessed {{old patient records* p atient records on the [employer] [facility] [employer] r jellywed records with the PCP}}. This informatio n was pertinent in my medical decision making today. The details of this patient case and the plan of care were discussed with the Virtual Physician supervisor bonding for [facility]. Altered mental status 41 2417693 R41.82 Transient altered mental status [id number] R41.82 [id number] Ana Luisa Mendez NP [facility] [address] [place] [address] 10/18/2020 14:13:51 10/21/2020 10:36:14 Urinary tract infectious disease 75610141 N39.0 Health Concerns Section Related Observation LastModified by Organization Detai ls LastModified Time None Recorded Concern Status LastModified by Organization Details LastModified Time None Recorded Advance Directives Directive Y: Payers Encounter Date Sequence Insurance Name Policy Number Policy Dueñas Covered Member ID Dueñas Member ID Guarantor Name 09/11/2020 1 MEDICARE B-[place]: [facility] Michelle A Fletcher-Sm [facility] [id number] Michelle Fletcher-Feroz h 09/11/2020 2 [place] [facility] Michelle Fletcher-[facility] [id number] Michelle Fletcher-Feroz h 10/18/2020 1 [place] [facility] Michelle A Fletcher-Sm ith [id number] Michelle Fletcher-Feroz h 10/18/2020 2 [place] [facility] Michelle Fletcher-Sm [facility] [id number] Michelle Fletcher-Feroz h Notes Date Note Type Note Provider Name and Address Organization Details Recorded Time 09/11/2020 text/html Patient is a 65 year old alert female who is alert. Patient is new to and new to this provider. Chief complaint this visit is concerns for UTI due to episodes of increased confusion/altered mentation x 1 week ago. Patient states that she did have visual and auditory hallucinations in the evening several times this past week which she does remember vividly. Patient has consulted with her neurologist and skid machine operator and was referred to . There are no exacerbating factors and no alleviating factors. Recently, patient's neurologist decreased patient Baclofen from 40 mg TID to 20 mg QID. Patient medical history significant for MS, dystonia, anxiety, toxic metabolic encephalopathy, PE, stroke x1, lymphoma. FREDDIE LUNA, JACOBO [address], [place], [address], [place] [facility] 09/14/2020 15:12:26 10/18/2020 text/html Patient is a 65 year old alert female who is known to and known to this provider. Patient chief complaint is UTI and urine overflow outside of indwelling urinary catheter x 3 days. Patient seen last for same complaint by this provider 09/11/2020. Patient medical history significant for MS, anxiety, toxic metabolic encephalopathy, lyphoma, HTN, PE, stroke. Ana Luisa Mendez NP [address], [place], [address], [place] [facility] 10/18/2020 16:43:23 OBGyn Episode No OBEpisode recorded.
--- OUTSIDE RECORDS SUMMARY | 2024-10-03 10:28 | XMS_ITS | Clinical Summary ---
[facility] Organization [facility] Address [address] [place] [address] Care Team Providers Care Demonstrator Sewing Techniques Name Role Phone Antonio Goodrich MD Primary Care Provider Social History Tobacco Use Types Packs/Day Years Used Date Smoking Tobacco: Never Assessed Comments Unknown Sex and Gender Information Value Date Recorded Sex Assigned at Not on file Legal Sex Female 7:44 PM EST Gender Identity Not on file Sexual Orientation Not on file Plan of Treatment Health Maintenance Due Date Last Done Comments Breast Cancer Screening 1955 DTaP,Tdap,and Td Vaccines (1 - Tdap) 1973 Pneumococcal Vaccine: 50+ Ye ars (1 of 1 - PCV) 01/25/2004 Zoster Vaccines (1 of 2) 01/25/2004 COVID-19 Vaccine ( - 2023-2 5 season) 2024 Influenza Vaccine (#1) 2024 RSV Immunization Patients 60 + Years Old (1 - 1-dose 75+ series) 2029 HIB Vaccines Aged Out No longer eligi ble based on patient's age to complete this topic HPV Vaccines Aged Out No longer eligi ble based on patient's age to complete this topic Hepatitis A Vaccines Aged Out No long er eligible based on patient's age to complete this topic Hepatitis B Vaccines Aged Out No long er eligible based on patient's age to complete this topic IPV Vaccines Aged Out No longer eligi ble based on patient's age to complete this topic MMR Vaccines Aged Out No longer eligi ble based on patient's age to complete this topic Meningococcal ACWY Vaccine Aged Out N o longer eligible based on patient's age to complete this topic Meningococcal B Vacine Aged Out No lo nger eligible based on patient's age to complete this topic RSV Immunization Patients Un madhu 20 months Aged Out No longer eligible b ased on patient's age to complete this topic Varicella Vaccines Aged Out No longer eligible based on patient's age to complete this topic Advance Directives Documents on File Type Date Recorded Patient Commercial Marketing Specialist Expl anation Health Care Decision (hx) 05/10/2017 AD ARTHUR DIRECTIVE Health Care Decision (hx) 05/10/2017 AD ARTHUR DIRECTIVE Health Care Decision (hx) 03/23/2017 AD ARTHUR DIRECTIVE Health Care Decision (hx) 03/23/2017 AD ARTHUR DIRECTIVE Care Teams Demonstrator Sewing Techniques Relationship Specialty Start Date End Date Antonio Goodrich MD [address] [place] [phone] PCP - General Internal Medicine 01/19/20
--- OUTSIDE RECORDS SUMMARY | 2024-10-03 10:28 | XMS_ITS | Encounter Summary ---
Author Organization [facility] Address [address] [place] [address] Care Team Providers Care Manager Terminal Name Role Phone Unavailable Primary Care Provider Unavailabl e Encounter Details Date Type Department Care Team (Late st Contact Info) Description 05/07/2024 Orders Only [facility] [address] [place] [address] Fletcher Leija Jr., DMD [address], [place] [phone] Social History Tobacco Use Types Packs/Day Years [...]
--- OUTSIDE RECORDS SUMMARY | 2024-10-03 10:28 | XMS_ITS | Data Portability ---
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 is a 59 year old female with findings most consistent with roll over injury of right foot. Onset last October. She has had discomfort since then and feels she has lost strength. However she does have MS and severe edema in the leg. Patient has significant functional limitation in their activities of daily living and exercise capacity. Patient Goals: Pt. would? ? ?like the foot to feel better for transfers from her wheel chair Clinical Goals: 1. Demonstrate symmetric pain free active, passive and resisted motions of the foot. 2. Demonstrate sufficient muscular endurance to meet functional demands. Skilled physical therapy is needed to safely and progressively address impairments and functional limitations as outlined above. Treatment Plan: Patient to return 1-2 times per week for 4-6 weeks. We expect significant change in pain, impairment and function in this time frame. Treatment to Include: Therapeutic exercise and Manual therapy [email or web address] Not available 04/09/2014 13:12:32 04/20/2014 04/20/2014 Patient requires skilled occupational therapy in order to safely and effectively progress their rehabilitation to gain maximal functional outcome wtih as much symptom resolution as possible. Assessment: Left ulnar neuropathy, seemingly from position in wheelchair.? ? ? Michelle leans to the left and leans continuously on the left elbow.? ? ? She also sleeps on her back, likely putting pressure over the ulnar nerve as well. Goals: Decrease/eliminat e ulnar nerve symptoms in ulnar 3 digits Treatment Plan: Patient to return 1 times per week for 4-6 weeks. Treatment to Include: Improve sitting position in wheelchair to reduce elbow leaning--Michelle has the trunk control to sit erect without leaning; ? ? ?provide padding over elbow, night splint as needed. [email or web address] Not available 04/20/2014 22:32:55 04/20/2014 04/20/2014 Doing better. He r foot stays on the foot plate in a more upright position slooze Not available 04/21/2014 06:32:43 04/27/2014 04/27/2014 Michelle was in her newer wheelchair today.? ? ? The lateral pad on the left helps only minimally in keeping her upright in the chair, she still leans on her left elbow, though the padded and wider armrests in this chair are an improvement.? ? ? She has an appt. later this week at [employer] (?) for further w/c assessment and supply of her AFO and heelbo.? ? ? Sensory testing today revealed decreased light touch discrimination in all right digits, with the little finger the worst.? ? ? Since much of her elbow leaning comes from decreased trunk control, she will follow-up with Eleonora Oro, PT regarding that, in the meantime she will continue with elbow padding. [email or web address] Not available 04/27/2014 14:13:13 05/05/2014 05/05/2014 Pt. is doing wel l presently and will be discharged to self care. slooze Not available 05/05/2014 12:08:32 Plan of Treatment Reminders Order Date Submit Date Provider Last Modified By Organization Details Last Modified Time Details Appointments None record ed. Lab None record ed. Referral None record ed. Procedures None record ed. Surgeries None record ed. Imaging None record ed. Medication Orders None record ed. Patient TargetsNo targets recorded. Patient Instructions Encounter Date Encounter Id Patient Instructions Last Modified By Organization Details Last Modified Time 04/09/2014 [id number] Mobility Current G8978 {{CH (0%) CI (1-19%) CJ (20-39%)* CK (40-59%) CL (60-79%) CM (80-99%) CN (100%)}} Goal G8979 {{CH (0%)* CI (1-19%) CJ (20-39%) CK (40-59%) CL (60-79%) CM (80-99%) CN (100%)}} Discharge G8980 {{# CH (0%) CI (1-19%) CJ (20-39%) CK (40-59%) CL (60-79%) CM (80-99%) CN (100%)}} slooze Not available 04/09/2014 13:12:32 Reason for Referral None Reported. Results Created Date Observation Date Name Description Value Unit Range Abnormal Flag Note LastModifiedBy Organization Detail LastModifiedTime 04/02/20 14 04/14/2014 refer red to athen a test name: NMO 193 Not Available [email or web address] [address], [address], 04/14/2014 17:39:39 04/02/20 14 04/14/2014 refer red to athen a referred to dalila 04/15/20 14 Not Available [email or web address] [address], [place], [address], 04/14/2014 17:39:39 04/02/20 14 04/14/2014 refer red to athen a Unknown Analyte A SPECI MEN HAS BEEN REFER RED FOR EVALU ATION AT YOUR REQUE ST TO [facility] [address], [place]. THE RESUL T WILL BE REPOR YOSSI DIREC TLY TO YOUR OFFIC E BY [facility]. RAISSA HERNANDEZ WILL BE PERFO RMED DIREC TLY BY THE [facility] . Not Available [email or web address] [address], [place], [address], 04/14/2014 17:39:39 04/02/20 14 04/14/2014 [facility] Unknown Analyte There is a quest ion regar ding the follo wing speci men submi tted and/o r the test reque sted. Not Available [facility] [address], [address], 04/14/2014 17:39:40 04/02/20 14 04/14/2014 [facility] question: TEST 64344/ NEUROM YELITI S OPTIC A AB REQUI RES AN ATHEN A REQ FILLE D OUT BY DUNG Ramos Not Available [facility] [address], [place], [address], 04/14/2014 17:39:40 04/14/20 14 04/14/2014 basic metab olic panel glucose 89 mg/dL 70-99 Not Available [facility] (Outpatient) [address] [place] [address], [id number], 04/14/2014 17:04:19 04/14/20 14 04/14/2014 basic metab olic panel BUN 21 mg/dL 6-19 high Not Available [facility] ([facility]) [address] [place] [address], [id number], 04/14/2014 17:04:19 04/14/20 14 04/14/2014 basic metab olic panel creatinine 0.8 mg/dL 0.5-1. 5 Not Available [facility] (Outpatient) [address] [place] [address], [address], 04/14/2014 17:04:19 04/14/20 14 04/14/2014 basic metab olic panel GFR >60 Not Available [facility] (Outpatient) [address] [place] [address], [id number], 04/14/2014 17:04:19 04/14/20 14 04/14/2014 basic metab olic panel sodium 139 mEq/L 133-14 5 Not Available [facility] (Outpatient) [address] [place] [address], [id number], 04/14/2014 17:04:19 04/14/20 14 04/14/2014 basic metab olic panel potassium 4.5 mEq/L 3.3-5. 1 Not Available [facility] (Outpatient) [address] [place] [address], [id number], 04/14/2014 17:04:19 04/14/20 14 04/14/2014 basic metab olic panel chloride 101 mEq/L 96-108 Not Available [facility] (Outpatient) [address] [place] [address], [id number], 04/14/2014 17:04:19 04/14/20 14 04/14/2014 basic metab olic panel CO2 23 mEq/L 21-35 Not Available [facility] ([facility]) [address] [place] [address], [id number], 04/14/2014 17:04:19 04/14/20 14 04/14/2014 basic metab olic panel calcium 9.2 mg/dL 8.4-10 .3 Not Available [facility] ([facility]) [address] [place] [address], [address], 04/14/2014 17:04:19 04/14/20 14 04/14/2014 basic metab olic panel anion gap 20 mEq/L 10-20 Not Available [facility] (Outpatient) [address] [place] [address], [id number], 04/14/2014 17:04:19 11/03/19 17 11/02/2016 cultu re, wound culture wound Mixed aerobi c maya isolat ed, no predom inance . - Cultur e consis ts of E. coli, beta Strep not Group A, - Entero coccus and alpha Strep not Group D. Not Available [address], [address], 11/04/2016 09:26:16 11/03/19 17 11/02/2016 cultu re, wound stain, gram Modera te WBCs seen - No organi sms seen Not Available [facility] [address] [facility], [place], [address], 11/04/2016 09:26:16 03/13/20 14 03/13/2014 x-ray , ankle OBSERV ATION: Right ankle series : Histor y: Ankle pain 3 views. No fractu re, disloc ation or focal bone pathol ogy is seen. Genera lized soft tissue swelli ng is noted. Impres monika: No eviden ce of fractu re. Electr onical ly signed Radha Oconnor juan alberto: Moody Osorio MD [facility] (Imaging) [address] , [place], [address], 07/21/2015 04:00:31 04/02/20 14 04/01/2014 imagi ng/di agnos tic resul t No observ ation record ed. tfurcolo Not Available 2013 18:45:48 04/10/20 14 11/29/2012 imagi ng/di agnos tic resul t No observ ation record ed. tfurcolo [facility]) [address] [facility], [place], [address], 04/10/2014 20:43:02 Result Notes None recorded. Problems Name Problem SNOMED Code Status Onset Date Resolution Date Notes Provider Name and Address Organization Details Recorded Time Neuropathy 903649845 Active Denilson Furcolo D.O. [address] [place] [address], [phone] , [facility] 4 18:20:30 Peripheral venous insufficie ncy 94989224 Active Denilson Furcolo D.O. [address] [place] [address], [address] , [facility] 4 12:15:51 Cerebrovas cular accident 487066313 [facility] 4 09:57:24 Morbid obesity 950141098 Active Denilson Furcolo D.O. [address] [place] [address], [address] , [facility] 4 15:07:20 Pulmonary embolism 78327464 Active Denilson Driscoll D.O. [address] [place], [address] , [facility] 5 06:59:38 Mixed hyperlipid emia 665474468 Active 2006 Nicolasa snatana, [facility] 4 15:00:29 Dermatophy tosis of the body Completed 200507/26/2011 Not Available [facility] 3 03:12:43 Amnesia 21803403 Completed 07/26/2011 Not Available [facility] 3 03:12:43 Recurrent major depressive episodes 299669719 Active Denilson Driscoll D.O. [address] [place] [address], [address] , [facility] 4 12:15:51 Abnormal gait 27021973 Completed 200707/26/2011 Not Available [facility] 3 03:12:43 Essential hypertensi on 12953845 Completed 09/02/2012 Not Available [facility] 3 03:12:43 Traumatic blister of foot 896765851 Completed 200707/26/2011 Not Available [facility] 3 03:12:43 Subcutaneo us nodule 54745228 Completed 09/02/2012 Not Available [facility] 3 03:12:43 Constipati on 95443557 Completed 200407/26/2011 Not Available [facility] 3 03:12:43 Multiple sclerosis 57155152 Active 2004 Dyana Valentino RN null, [facility] 4 12:37:48 Benign essential hypertensi on 0057908 Completed 200709/02/2012 Not Available [facility] 3 03:12:43 Skin sensation disturbanc e 86659172 Completed 200607/26/2011 Not Available [facility] 3 03:12:43 Neurogenic urinary bladder 591842020 Active Dyana Valentino RN [facility], [facility] 4 12:37:48 Disorder of trunk 016515125 Completed 200607/26/2011 Not Available [facility] 3 03:12:43 Retinal detachment 21692693 Completed 200607/26/2011 Not Available [facility] 3 03:12:43 Major depression , melancholi c type 010152330 Active 2007 Denilson LewisOoJrge [address] [place] [address], [address] , [facility] 3 20:22:46 Acute stress disorder 48021354 Completed 200607/26/2011 Not Available [facility] 3 03:12:43 Joint pain 01749647 Completed 200707/26/2011 Not Available [facility] 3 03:12:43 Candidiasi s 03318164 Completed 200507/26/2011 Not Available [facility] 3 03:12:43 Anemia 975730104 Completed 07/26/2011 Not Available [facility] 3 03:12:43 Elevated blood-pres sure reading without diagnosis of hypertensi on 327580619 Active Not Available [facility] 3 03:12:43 Hyperlipid emia 37655508 Completed 200407/26/2011 Not Available [facility] 3 03:12:43 Malaise and fatigue 952499756 Completed 200407/26/2011 Not Available [facility] 3 03:12:43 Acquired hypothyroi dism 452105387 Active Denilson Driscoll D.O. [address] [place] [address], [address] , [facility] 4 12:15:51 Acquired hypothyroi dism 747737414 Completed 07/26/2011 Not Available [facility] 3 03:12:43 Decrease in height 34432969 Completed 200607/26/2011 Not Available [facility] 3 03:12:43 Elevated level of transamina se and lactic acid dehydrogen ase 837096113 Completed 200407/26/2011 Not Available [facility] 3 03:12:43 Premature menopause 737117851 Completed 200607/26/2011 Not Available [facility] 3 03:12:43 Lymphadeno jonathan 48787752 Completed 200407/26/2011 Not Available [facility] 3 03:12:43 Swelling of limb 68964827 Completed 200607/26/2011 Not Available [facility] 3 03:12:43 Finding by method 391982175 Completed 200507/26/2011 Not Available [facility] 3 03:12:43 Breast lump 57426681 Completed 200407/26/2011 Not Available [facility] 3 03:12:43 Sequelae of neurologic al disorders 344546089 Completed 200807/26/2011 Not Available [facility] 3 03:12:43 Edema of extremity 438594864 Completed 07/02/2013 Not Available [facility] 3 02:02:55 Edema of extremity 033070443 Completed 200607/26/2011 Not Available [facility] 3 03:12:43 On examinatio n - a rash Completed 200407/26/2011 Not Available [facility] 3 03:12:43 Narcolepsy 14298049 Active Denilson Driscoll D.O. [address] [place] [address], [phone] [place] [address] 4 15:07:20 Chronic pain 85341031 Completed 09/02/2012 Not Available [facility] 3 03:12:43 Senile osteoporos is 27970781 Completed 200607/26/2011 Not Available [facility] 3 03:12:43 General symptom 057825482 Completed 200807/26/2011 Not Available [facility] 3 03:12:43 Low back pain 506700971 Completed 200409/02/2012 Not Available [facility] 3 03:12:43 Hypothyroi dism 03529232 Active 2004 Sarita Barrington [facility] 5 11:31:22 Primary fibromyalg ia syndrome 17503968 Completed 200407/26/2011 Not Available [facility] 3 03:12:43 Menopausal and postmenopa usal disorders 405546023 Completed 07/26/2011 Not Available [facility] 3 03:12:43 Problem Notes None recorded. Procedures Surgical History Date Name Laterality Status Provider Name and Address Organization Details Recorded Time 05/05/20 14 Current <strong>Medicati ons</strong> not Documented, Reason not Given (G8428) completed Savanah Oro, PT [address] [place], [address], [facility] 05/05/2014 12:08:32 04/27/20 14 Current <strong>Medicati ons</strong> not Documented, Reason not Given (G8428) completed Shweta Hylton, OT [address] [place], [address], [facility] 04/27/2014 14:13:14 04/20/20 14 Current <strong>Medicati ons</strong> not Documented, Reason not Given (G8428) completed Savanah Oro, PT [address] [place], [address], [facility] 04/21/2014 06:33:12 04/20/20 14 <strong>Pain</st idania> Assessment - No Pain (G8731) completed Shweta Hylton, OT [address] [place], [address], [facility] 04/20/2014 22:32:55 04/20/20 14 <strong>Falls</s sheri> Risk Assessment - At Risk (3288F + 1100F) completed Shweta Hylton, OT [address] [place], [address], [facility] 04/20/2014 22:32:55 04/20/20 14 <strong>Function al</strong> Assessment Not Done (G8540) completed Shweta Hylton, OT [address] [place], [address], [facility] 04/20/2014 22:32:55 04/20/20 14 <strong>Falls</s sheri> No POC (0518F,8P) completed Shweta Hylton, OT [address] [place], [address], [facility] 04/20/2014 22:32:55 04/20/20 14 <strong>Tobacco< /strong> Non-User (1036F) completed Shweta Hylton, OT [address] [place], [address], [facility] 04/20/2014 22:32:55 04/20/20 14 <strong>BMI</str jimmy> not Documented, Reason not Given (G8421) completed Shweta Hylton, OT [address] [place], [address], [facility] 04/20/2014 22:32:55 04/20/20 14 Current <strong>Medicati ons</strong> not Documented, Reason not Given (G8428) completed Shweta Hylton, OT [address] [place], [address], [facility] 04/20/2014 22:32:55 04/09/20 14 <strong>Pain</st idania> Assessment and Follow-up (G8730) completed Savanah Oro, PT [address] [place], [address], [facility] 04/09/2014 13:12:32 04/09/20 14 <strong>Falls</s sheri> Risk Assessment - No Risk (1101F) completed Savanah Oro, PT [address] [place], [address], [facility] 04/09/2014 13:12:32 04/09/20 14 <strong>Function al</strong> Outcome w/ POC (G8539) completed Savanah Oro, PT [address] [place], [address], [facility] 04/09/2014 13:12:33 04/09/20 14 <strong>BMI</str jimmy> not Documented, Reason not Given (G8421) completed Savanah Oro, PT [address] [place], [address], [facility] 04/09/2014 13:12:33 04/09/20 14 Current <strong>Medicati ons</strong> Documented (G8427) completed Savanah Oro, PT [address] [place], [address], [facility] 04/09/2014 13:12:33 01/21/20 14 Medicare Wellness Visit completed Geni Shaffer LPN [facility] 01/20/2014 13:53:57 12/17/19 13 Medicare Wellness Visit completed Geni Shaffer SALES EXECUTIVE [facility] 12/16/2012 15:19:39 Total Hysterectomy completed Denilson Driscoll D.O. [address] [place], [address], [facility] 12/16/2012 16:30:23 Imaging Results Imaging Date Name Status LastModified by Organiz ation Details LastModified Time 03/13/2014 x-ray, ankle completed [facility] ([facility]) [address], [place], [address], 07/21/2015 04:00:31 04/01/2014 imaging/alexy gnostic result completed [facility] not available 04/02/2014 18:45:48 11/29/2012 imaging/alexy gnostic result completed tfurcolo [facility]) [address], [place], [address], 04/10/2014 20:43:02 Procedure Notes None recorded. Medical Equipment None Reported. Allergies Allergen ID Allergen Name Allergen Category Reaction Reaction Severity Criticality Documentation Date Start Date Code Code System Note Provider Name and Address Organization Details Recorded Time 93181 bupropion Not available rash Not available Not available 11/02/2009 78613 RxNorm Not Available [facility] 1 06:05:41 01248 Product containin g penicilli n (product) medicatio n rash Not available Not available 11/02/2009 63931 8001 SNOMED Not Available [facility] 1 06:05:20 02463 Substance with sulfonami de structure and antibacte rial mechanism of action (substanc e) medicatio n Not available Not available Not available 11/02/2009 70513 8003 SNOMED pt state s she felt not right and the med did not work prope rly Not Available [facility] 1 06:05:20 23373 iodine medicatio n rash Not available Not available 11/02/2009 5933 RxNorm Not Available [facility] 1 06:05:20 98278 morphine medicatio n rash Not available Not available 11/02/2009 7052 RxNorm Not Available [facility] 1 06:05:20 15379 Reglan medicatio n Not available Not available Not available 05/26/2010 9230 RxNorm tremo rs, rigid ity Not Available [facility] 1 06:05:41 Medications Name Sig Start Date Stop Date Status Note LastModified by Organization Details LastModified Time Prescript ion - New active leg founder & ceo Not Available Not Available Not Available Prescript ion - Clarifica tion active [employer] - Simvasta tin Not Available Not Available Not Available Prescript ion - Prior Authoriza tion Request active Not Available Not Available Not Available neomycin- polymyxin -hydrocor t 3.5 mg/mL-10, 000 unit/mL-1 % ear solution Instill 4 drops 3 times a day by otic route in [facility]. 2013 active Not Available Not Available Not Avai lable Colace 100 mg capsule Take 1 capsule twice a day by oral route. 2008 active Not Available Not Available Not Avai lable aspirin 325 mg tablet active Take 1.00 tab daily Not Available Not Available Not Available fluconazo le 150 mg tablet 2006 active Take 1.00 tabs every week Not Available Not Available Not Available Keflex 500 mg capsule Take 1 capsule twice a day by oral route for 7 days. 2009 active Not Available Not Available Not Avai lable lisinopri l 20 mg tablet TAKE 1 TABLET DAILY 2014 active Not Available Not Available Not Avai lable clindamyc in HCl 150 mg capsule Take 1 capsule every 6 hours by oral route. active Not Available Not Available No t Available bacitraci n 500 unit/gram topical ointment 2007 active Take 1.00 applics twice daily Not Available Not Available Not Available Provigil 100 mg tablet Take 1 tablet by oral route once daily in the morning 2010 active Not Available Not Available Not Avai lable Detrol LA 4 mg capsule,e xtended release active Take 1.00 tab daily Not Available Not Available Not Available Azelex 20 % topical cream 2006 active Take 1.00 applics daily Not Available Not Available Not Available simvastat in 40 mg tablet Take 1 tablet every day by oral route. 2008 active Not Available Not Available Not Avai lable baclofen 20 mg tablet active Take 1 tab 3 times daily Not Available Not Available Not Available Macrobid 100 mg capsule Take 1 capsule every day by oral route at bedtime. active per Not Available Not Available Not Available nystatin- triamcino lone 100,000 unit/gram -0.1 % topical ointment active occasion ally, by Dr. Munoz derm Not Available Not Available Not Available modafinil 200 mg tablet Take 1 tablet every day by oral route. 2013 active Not Available Not Available Not Avai lable desiprami ne 50 mg tablet 2006 active Take 1.00 tabs twice daily Not Available Not Available Not Available Levothroi d 100 mcg tablet Take 1 tablet every day by oral route. 2010 active Not Available Not Available Not Avai lable Cipro 500 mg tablet Take 1 tablet every 12 hours by oral route for 3-7 days as needed for recurren t UTIs 2009 active Not Available Not Available Not Avai lable nitrofura ntoin macrocrys jenna 100 mg capsule Take 1 capsule twice a day by oral route for 7 days. 02/22 completed Not Available Not Available Not Available Synthroid 88 mcg tablet TAKE 1 TABLET DAILY 2013 active last PHA 01/20, upcoming f/u 03/05, last labs 01/20 Not Available Not Available Not Available tretinoin (emollien t) 0.05 % topical cream APPLY A PEA-SIZE D AMOUNT BY TOPICAL ROUTE ONCE DAILY AT BEDTIME 20-30MIN UTES AFTER WASHING FACE active Not Available Not Available No t Available Levothroi d 75 mcg tablet Take 1 tablet every day by oral route. 2008 active Not Available Not Available Not Avai lable Culturell e 10 billion cell capsule 2007 active one po tid Not Available Not Available Not Available furosemid e 20 mg tablet TAKE 1 TABLET DAILY 2013 active last f/u 09/12, upcoming PHA 01/20 Not Available Not Available Not Available gabapenti n 100 mg capsule Take 2 capsules every day by oral route at bedtime. active per [employer] Not Available Not Available Not Available Copaxone 20 mg/mL subcutane ous syringe kit 2006 active Inject 20mg daily as directed Not Available Not Available Not Available fluoxetin e 20 mg capsule TAKE 1 CAPSULE DAILY 2011 active upcoming PHA 09/06 (med. was also hidden in med list) Not Available Not Available Not Available naproxen 500 mg tablet TAKE 1 TABLET 3 TIMES A DAY 2013 active Not Available Not Available Not Avai lable oxycodone 5 mg tablet Take 1 tablet every 6 hours by oral route for 90 days. 04/10 completed Pt state that TF mails this to her home address, she has to mail it to [facility] . Please do for 90 days. Not Available Not Available Not Available Enemeez 283 mg enema USE DAILY NEEDED 2011 active Not Available Not Available Not Avai lable Enemeez Plus 283 mg-20 mg enema use daily as needed 2009 active Pt called and states she cannot fill at mail away. Would like new rx to go to [facility] Not Available Not Available Not Available Band-Aid Clear Spots 2 X 4.5 bandage 2007 active band-aid s of the size: 2 inch by 1 inch are needed for dressing changes bid Not Available Not Available Not Available Telfa Ouchless Non-Adher ent Dressing 6 X 3 2007 active Take 1.00 ea twice daily Not Available Not Available Not Available Premarin 0.625 mg/gram vaginal cream Apply around urethra three times weekly active per Not Available Not Available Not Available Ciprodex 0.3 %-0.1 % ear drops,georgina pension Instill 4 drops twice a day by otic route for 7 days. 10/13 completed Not Available Not Available Not Available Colace Glycerin (Adult) rectal supposito ry Insert 1 supposit ory twice a day by rectal route as needed. 2009 active Not Available Not Available Not Avai lable Tineacide 10.2 %-1 % topical cream active Not Available Not Available Not Available Vesicare active Not Available Not Avai lable Not Available melatonin 300 mcg tablet Take 1 tablet every day by oral route. 2013 active Not Available Not Available Not Avai lable Kale Pads 2 % topical swab Apply by rubbing pad over affected area by topical route 2 times per day morning and evening 2008 active Not Available Not Available Not Avai lable Probiotic Acidophil us Biobeads 2.5 billion cell tablet,de layed release active Not Available Not Available Not Available Enemeez 283 mg/5 mL enema USE DAILY NEEDED active Not Available Not Available No t Available Green Coffee Sandoval active Not Available Not Available Not Available Vitals None Recorded Social History Question Answer Notes LastModified by Organizat ion Details LastModified Time Tobacco Smoking Status Never Smoker Not Available [employer] 06/29/2011 04:53:49 Do You Have An Advance Directive? Yes In Paper Chart ptalley Information not available 05/26/2010 What Is Your Level Of Alcohol Consumption? Occasional Information not available 08/30/2012 What Is Your Level Of Caffeine Consumption? Moderate Information not available 01/20/2014 What Type Of Diet Are You Following? 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 0 [email or web address] Information not available 09/06/2012 Are There Any Guns Present In Your Home? No Information not available 12/16/2012 Live Alone Or With Others? Alone [email or web address] Information not available 06/29/2011 Marital Status In 2006 Information not available 07/31/2011 Mosquito Repellent Used Routinely No Information not available 12/16/2012 How Many Children Do You Have? 0 [email or web address] Information not available 06/29/2011 Seat Belts Used Routinely Yes Information not available 12/16/2012 Are You Sexually Active? No [email or web address] Information not available 06/29/2011 Smoke Alarm In Home Yes Information not available 12/16/2012 General Stress Level High Information not available 01/20/2014 Do You Use Sunscreen Routinely? Yes Information not available 12/16/2012 Sex: Unknown Functional Status None recorded. Mental Status None recorded. Family History Nothing Reported Notes:Cardiovascular: Family history is remarkable for coronary artery disease. Neurological: Family history is remarkable for Parkinson's Disease. Supranuclear palsy Mother. Medical History Condition Response NEUROLOGIC Y Depression Y Venous Insuffiency Y Hypothyroid Y RENAL / GENITOURINARY Stroke Y Asthma Y Chronic Back Pain Y Pulmonary Embolus Y Kidney Disease Gynecological HistoryNo gynecological history recorded. Obstetrics History GPAL:G 0 P 0 0 0 0 Immunizations Vaccine Type Date Status Note Provider Nam e and Address Organization Details Recorded Time Influenza, split virus, trivalent, preservative 9 completed Not Available [facility] 08/30/2019 02:28:51 influenza, unspecified formulation 5 completed Not Available [facility] 06/28/2011 05:21:29 Td(adult) unspecified formulation 6 completed Not Available [facility] 06/28/2011 05:21:29 influenza, unspecified formulation 8 completed Not Available [facility] 06/28/2011 05:21:55 Novel [id number], all formulations 9 completed Not Available [facility] 09/13/2019 02:10:38 pneumococcal polysaccharide PPV23 7 completed Not Available [facility] 06/28/2011 05:22:41 influenza, unspecified formulation 0 completed Not Available [facility] 06/28/2011 05:22:41 Influenza, split virus, trivalent, preservative 2 completed Geni Shaffer LPN [facility] 08/30/2012 15:00:23 Influenza, split virus, trivalent, preservative 3 completed Geni Shaffer LPN [facility] 06/26/2013 12:12:02 Influenza, split virus, trivalent, PF 4 completed Not Available [facility] 09/13/2019 02:10:39 zoster live 1 completed Not Available [facility] 08/30/2019 02:16:29 Past Encounters Encounter ID Performer Location Encounter Start Date Encounter Closed Date Diagnosis/Indication Diagnosis SNOMED-CT Code Diagnosis ICD10 Code Diagnosis Note [id number] [facility], OFFICE [address] [place] [address] 02/17/2005 12:21:55 02/20/2005 08:54:46 [id number] LAB - [facility] [address] [place] [id number] 02/17/2005 14:35:03 02/17/2005 14:35:29 [id number] LAB - [facility] [address] [place] [address] 03/03/2005 13:18:19 03/03/2005 13:18:42 [id number] [facility], OFFICE [address] [place] [address] 1 03/03/2005 11:42:10 03/06/2005 12:32:36 [id number] [facility] , [facility] [address] [place] [address] 03/07/2005 11:35:07 03/07/2005 11:53:03 [id number] Radiology , [facility] [address] [place] [address] 03/07/2005 00:00:00 09/02/2008 02:02:29 [id number] [facility], OFFICE [address] [place] [address] 1 03/14/2005 14:01:54 03/16/2005 09:04:57 [id number] [facility], OFFICE [address] [place] [address] 1 05/22/2005 17:03:22 05/23/2005 08:53:11 [id number] [facility], OFFICE [address] [place] [address] 1 06/13/2005 16:28:50 06/13/2005 16:28:59 [id number] [facility], OFFICE [address] [place] [address] 1 06/22/2005 10:39:09 06/26/2005 09:32:55 [id number] LAB - [facility] [address] [place] [address] 06/22/2005 12:17:31 06/22/2005 12:21:33 [id number] Radiology , [facility] [address] [place] [address] 11/02/2005 13:28:28 11/03/2005 09:01:10 [id number] Radiology , [facility] [address] [place] [address] 11/02/2005 00:00:00 09/02/2008 02:02:29 [id number] [facility], OFFICE [address] [place] [address] 11/02/2005 12:22:13 11/10/2005 08:25:09 [id number] FP [facility], OFFICE [address] [place] [address] 11/02/2005 12:22:13 11/10/2005 08:25:09 [id number] FP [facility], OFFICE [address] [place] [address] 01/18/2006 14:40:14 09/02/2008 02:02:29 [id number] LAB - [facility] [address] [place] [address] 02/09/2006 14:40:21 02/09/2006 14:40:32 [id number] LAB - [facility] [address] [place] [address] 08/23/2006 16:21:04 08/23/2006 16:21:12 [id number] FP [facility], OFFICE [address] [place] [address] 08/23/2006 15:08:02 08/28/2006 08:40:07 [id number] FP [facility], OFFICE [address] [place] [address] 1 09/13/2006 11:04:37 09/17/2006 13:05:13 [id number] Radiology , [facility] [address] [place] [address] 10/04/2006 15:05:54 10/04/2006 16:43:00 [id number] Radiology , [facility] [address] [place] [id number] 10/04/2006 00:00:00 09/02/2008 02:02:29 [id number] [facility], OFFICE [address] [place] [address] 01/23/2007 16:49:56 2007 09:09:18 [id number] Radiology , [facility] [address] [place] [address] 01/28/2007 16:24:56 01/28/2007 16:55:18 [id number] Radiology , [facility] [address] [place] [address] 01/28/2007 00:00:00 09/02/2008 02:02:29 [id number] [facility], OFFICE [address] [place] [address] 02/08/2007 08:52:21 02/08/2007 12:00:39 [id number] Physical Therapy, [facility] [address] [place] [address] 1 03/21/2007 15:44:47 03/21/2007 16:38:21 [id number] LAB - [facility] [address] [place] [address] 1 03/22/2007 14:30:39 03/22/2007 14:30:45 [id number] Physical Therapy, [facility] [address] [place] [address] 03/26/2007 16:30:45 03/26/2007 16:30:49 [id number] Physical Therapy, [facility] [address] [place] [address] 1 04/02/2007 16:42:33 04/02/2007 16:42:37 [id number] Physical Therapy, [facility] [address] [place] [address] 1 04/25/2007 14:37:58 04/25/2007 14:38:02 [id number] [facility], OFFICE [address] [place] [address] 1 05/03/2007 12:04:30 05/07/2007 10:29:47 [id number] [facility], OFFICE [address] [place] [address] 1 08/12/2007 10:17:20 09/02/2008 02:02:29 [id number] LAB - [facility] [address] [place] [address] 09/13/2007 10:32:51 09/13/2007 10:32:59 [id number] [facility], OFFICE [address] [place] [address] 1 09/13/2007 09:04:20 09/02/2008 02:02:29 [id number] [facility], OFFICE [address] [place] [address] 1 01/14/2008 09:55:23 09/02/2008 02:02:29 [id number] [facility] [address] [place] [address] 01/14/2008 11:51:53 01/14/2008 13:14:55 [id number] [facility] - [facility] [address] [place] [address] 03/31/2008 13:26:23 03/31/2008 13:26:35 [id number] [facility], OFFICE [address] [place] [address] 03/31/2008 11:43:15 09/02/2008 02:02:29 [id number] [facility] - [facility] [address] [place] [address] 1 04/02/2008 15:25:54 04/02/2008 15:26:04 [id number] [facility], OFFICE [address] [place] [address] 04/02/2008 16:17:34 09/02/2008 02:02:29 [id number] [facility], OFFICE [address] [place] [address] 05/20/2008 13:43:42 09/02/2008 02:02:29 [id number] [facility] - [facility] [address] [place] [address] 1 05/20/2008 15:24:36 05/20/2008 15:24:46 [id number] [facility], OFFICE [address] [place] [address] 1 05/20/2008 00:00:00 09/02/2008 02:02:29 [id number] [facility] - [facility] [address] [place] [address] 06/03/2008 11:49:14 06/03/2008 11:49:22 [id number] Physical Therapy, [facility] [place] [facility] [place] [address] 06/15/2008 12:48:01 06/15/2008 12:48:05 [id number] Physical Therapy, [facility] [address] [place] [address] 06/18/2008 12:14:03 06/18/2008 12:14:10 [id number] [facility] [address] [place] [address] 07/02/2008 13:39:42 09/02/2008 02:02:29 [id number] [facility] [place] [address] 1 07/03/2008 09:31:46 07/03/2008 09:31:55 [id number] [facility], OFFICE [address] [place] [address] 08/05/2008 08:07:29 09/02/2008 02:02:29 [id number] [facility], OFFICE [address] [place] [address] 1 11/27/2008 09:10:03 11/30/2008 10:16:32 [id number] [facility], OFFICE [address] [place] [address] 1 03/03/2009 11:10:51 03/04/2009 08:33:03 [id number] [facility], OFFICE [address] [place] [address] 1 04/26/2009 10:47:10 04/27/2009 08:56:40 [id number] [place] [address] [place] [address] 09/18/2008 15:34:45 09/18/2008 15:34:54 [id number] [facility] [place] [address] 1 11/27/2008 09:03:39 11/27/2008 09:03:[id number] [place] [address] 1 01/01/2009 12:40:48 01/01/2009 12:41:[id number] [place] [address] 01/11/2009 09:55:16 01/11/2009 09:55:22 [id number] [facility] [place] [address] 1 03/03/2009 12:42:43 03/03/2009 12:42:55 [id number] [facility] [address] [place] [address] 04/26/2009 11:08:33 04/26/2009 11:08:41 [id number] [facility] , [facility] [address] [place] [address] 1 11/02/2009 08:56:29 11/03/2009 13:19:41 [id number] Andreea JONES [facility], OFFICE [address] [place] [address] 11/02/2009 10:08:23 11/02/2009 14:04:00 [id number] [facility], OFFICE [address] [place] [address] 12/06/2009 14:16:43 12/07/2009 09:45:30 [id number] KAREN, [facility], OFFICE [address] [place] [address] 1 01/04/2010 10:42:23 01/05/2010 10:00:06 [id number] Andreea JONES [facility], OFFICE [address] [place] [address] 01/20/2010 10:27:17 01/21/2010 12:36:55 [id number] Andreea JONES [facility], OFFICE [address] [place] [address] 05/26/2010 15:31:30 05/27/2010 09:16:06 [id number] [facility], OFFICE [address] [place] [address] 1 09/01/2010 15:29:49 09/02/2010 09:12:19 [id number] Radiology , [facility] [address] [place] [address] 09/01/2010 16:22:00 09/02/2010 10:35:01 [id number] [facility], OFFICE [address] [place] [address] [place] [address] 09/12/2010 15:22:37 09/13/2010 09:38:04 [id number] , [facility], OFFICE [address] [place] [address] 09/28/2010 09:03:36 09/28/2010 14:00:05 [id number] Physical Therapy, [address] [place] [address] 1 10/03/2010 11:54:26 10/06/2010 11:15:20 [id number] Physical Therapy, [facility] [address] [place] [address] 10/06/2010 14:52:56 10/10/2010 10:53:37 [id number] Physical Therapy, [facility] [place]02[address] 1 10/10/2010 12:00:39 10/11/2010 14:00:47 [id number] Physical Therapy, [facility] [place] Bar[place]02[address] 1 10/13/2010 14:53:56 10/14/2010 13:26:11 [id number] Physical Therapy, [facility] [place] Bar[place]02[address] 1 10/19/2010 12:23:54 10/20/2010 14:00:37 [id number] Physical Therapy, [facility] [place] Bar[place]02[address] 1 10/25/2010 14:57:38 10/26/2010 17:25:42 [id number] Physical Therapy, [facility] [place]02[address] 1 10/31/2010 14:57:39 11/01/2010 11:23:41 [id number] Physical Therapy, [facility] [place]02[address] 1 11/03/2010 14:36:53 11/04/2010 11:44:24 [id number] Physical Therapy, [facility] [place]02[address] 1 11/10/2010 14:49:41 11/11/2010 12:52:09 [id number] Physical Therapy, [facility] [place]02[address] 1 11/14/2010 14:43:27 11/15/2010 12:20:09 [id number] [facility], OFFICE [address] [place] [address] [place] [address] 1 12/12/2010 16:26:40 12/13/2010 10:21:13 [id number] [facility], OFFICE [address] [place] [address] [place] [id number] 1 07/31/2011 10:18:57 07/31/2011 11:43:07 [id number] [facility], OFFICE [address] [place] [address] [place] [address] 1 10/11/2011 11:14:48 10/11/2011 12:24:17 [id number] Radiology , [facility] [id number] 1 10/11/2011 12:24:44 10/13/2011 15:44:33 [id number] [facility], OFFICE [address] [place] [address] [place] [address] 1 03/01/2012 10:26:27 03/01/2012 12:39:26 [id number] Yue Victoria MD Radiology , [facility] [address] [place], [place] [address] 06/07/2012 13:02:19 06/12/2012 08:12:21 [id number] Denilson Drisclol D.O. [facility], OFFICE [address] [place] [address] 08/30/2012 14:37:29 08/30/2012 15:41:59 [id number] Jake Higgins MD [facility], OFFICE [address] [place] [address] 1 09/06/2012 11:43:17 09/06/2012 12:17:05 [id number] , [facility], OFFICE [address] [place] [address] 1 12/16/2012 14:47:05 12/16/2012 16:07:06 [id number] Linette Menezes DPM Podiatry, [facility] [address] [place], [place] [address] 03/10/2013 11:31:01 03/10/2013 12:57:34 [id number] Heenaalicia Muse , [facility], OFFICE [address] [place] [address] 06/26/2013 11:42:41 06/27/2013 08:04:44 Multiple sclerosis [id number] numerous issues today- brought a typed agenda to help with andrew hinojosa needs letters of medical necessity and letters of support of treatments which are beneficial to her healthy needs repeat letter for per mobile Excessive daytime sleepiness - normal night sleep [id number] on provigil. still numerous issues with sleep patterns, periodic limb moment many quetions regarding supplement s for periodic limb mvmt Major depr ession, melancholic type [id number] Narcolepsy 46036117 feel s that provigil is not as effective Neurogenic urinary bladder 161032309 numerous issues, needs pads Acquired hypothyroidism 038163106 stable labs Obesity 573426975 Neuropathy 775651847 boris ateral neuropathy , needs special shoes and to be fitted for them Peripheral venous insufficiency 66407156 chronci edema, on furosemide [id number] Anette Sotelo Podiatry, [facility] [address] [place] [address] 09/12/2013 10:14:24 09/12/2013 16:11:26 Hereditary peripheral neuropathy 91030016 Disorder of nail 72184441 [id number] Denilson Driscoll D.O. [facility], OFFICE [address] [place] [address] 09/12/2013 10:15:17 09/15/2013 08:26:27 Infective otitis externa 85412008 rigth ear canal inflammati on. wears hearing aids. recommend using 4 day course of drops. will abstain from using hearing aides during this time Recurrent major depressive episodes 039842933 stable, has less energy/sta delmi with MS Neurogenic urinary bladder 566369727 numerous issues, needs pads Acquired hypothyroidism 025065842 stable labs Narcolepsy 37121810 feel s that provigil is not as effective, but contineus to use Peripheral venous insufficiency 50976870 chronic edema, on furosemide Neuropathy 722702023 boris ateral neuropathy , needs special shoes and to be fitted for them- getting done through podiatry Multiple sclerosis 67803387 need shower bench that has secure handle to get in and out of shower. needs letter of medical necessity Cerebrovas cular accident [id number] previous CVA. late effects, weakness, impaired gait [id number] Denilson Driscoll D.O. [facility], OFFICE [address] [place] [address] 1 01/20/2014 13:25:56 01/21/2014 09:11:12 Adult health examination 627020659 see Risk Assessment and Lifestyle Change Counseling section above Counseling [id number] Narcolepsy 55454065 Insomnia 025071941 Multiple sclerosis 25015743 loss of function, mostly wheelchair bound Edema 801610402 likely multifacto rial. discussed cutting down on numerous suplemets and reading labels for salt. will keep legs elevated in the day and wear supportive hose. avoid naproxen. Neuropathy 146812247 rig th foot - palmar aspect ?if from cipro Retinal detachment 67765530 left eye retinal detachment previously Morbid obesity 299532575 wheelchair bound only does 1 step transfers Cerebrovas cular accident [id number] previous CVA. late effects, weakness, impaired gait [id number] Linette Menezes DPM Podiatry, [facility] [address] [place] [address] 03/13/2014 11:07:10 03/13/2014 12:10:32 Hereditary peripheral neuropathy 09318157 Disorder of nail 58243486 [id number] Kianna JONES, [facility], OFFICE [address] [place] [place] [address] 04/02/2014 11:12:00 04/03/2014 08:17:11 Neuropathy 657940589 recent increase in gabapentin , more effective for burning of feet Venous stasis 54574088 w ill be going to [facility] tomorrow to be fitted for compressio n knee highs may consider doing intermitte nt lala cath for a few days so that she will be able to take furosemide 40 mg daily for 3-4 days Ulcer 894793295 perinea l skin breakdown- seeing [facility] suspect widespread edema and limited mobility contributi ng to skin breakdown Multiple sclerosis 98927299 declining ability to self-cath 9296490 Physical Therapy, [address] [place] [address] 04/09/2014 11:51:52 04/09/2014 16:34:58 Foot pain 52660576 [id number] Radha Dumont Physical Therapy, [address] [place] [address] 1 04/20/2014 13:40:58 04/21/2014 10:51:24 Ulnar neuropathy 961846117 [id number] Radha Dumont Physical Therapy, [address] [place] [address] 1 04/20/2014 13:44:41 04/21/2014 13:40:34 Foot pain 84491000 [id number] Shweta Hylton, OT Physical Therapy, [address] [address] 04/27/2014 10:55:07 04/27/2014 16:40:57 Ulnar neuropathy 579602450 [id number] Savanah Oro, PT Physical Therapy, [address] [place] [address] 05/05/2014 10:49:39 05/06/2014 10:12:32 Foot pain 10737772 Health Concerns Section Related Observation LastModified by Organization Detai ls LastModified Time None Recorded Concern Status LastModified by Organization Details LastModified Time None Recorded Advance Directives Directive Y: in paper chart Payers Encounter Date Sequence Insurance Name Policy Number Policy Dueñas Covered Member ID Dueñas Member ID Guarantor Name 04/09/2014 1 [place] [employer] Michelle A Fletcher-S mit [id number] Michelle A Fletcher-Feroz h 04/09/2014 2 [place] [facility] [id number] Michelle A Fletcher-S mit [id number] Michelle A Fletcher-Feroz h 04/20/2014 1 [place] [employer] Michelle A Fletcher-S mit [id number] Michelle A Fletcher-Feroz h 04/20/2014 2 [place] [facility] [id number] Michelle A Fletcher-S mit [id number] Michelle A Fletcher-Feroz h 04/20/2014 1 [place] [employer] Michelle A Fletcher-S mit [id number] Michelle A Fletcher-Feroz h 04/20/2014 2 [place] [facility] ([facility] [id number] Michelle A Fletcher-S [facility] [id number] Michelle A Fletcher-Feroz h 04/27/2014 1 [place] [employer] Michelle A Fletcher-S mit [id number] Michelle A Fletcher-Feroz h 04/27/2014 2 [place] [facility] [id number] Michelle A Fletcher-S mit [id number] Michelle A Fletcher-Feroz h 05/05/2014 1 [place] [employer] Michelle A Fletcher-S mit [id number] Michelle A Fletcher-Feroz h 05/05/2014 2 [place] [facility] [id number] Michelle A Fletcher-S mit [id number] Michelle A Fletcher-Feroz h Notes Date Note Type Note Provider Name and Address Organization Details Recorded Time 04/20/2014 text/html Left ulnar neuropathy involving the ulnar 2 digits. This apparently started when Michelle started using a different wheelchair with different armrests. History significant for MS Shweta Mirza Concetta, OT [address] [place] [address], [place], [address], [facility] [facility] 04/20/2014 22:34:04 04/27/2014 text/html Has an apt this week at [facility](?) that will do w/c assessment and she hopes be able to supply her AFO and the heelbo. In new w/c today Shweat Hylton, OT [address] [place] [address], [place], [id number], [facility] 04/27/2014 14:13:57 OBGyn Episode No OBEpisode recorded.
--- OUTSIDE RECORDS SUMMARY | 2024-10-03 10:28 | XMS_ITS | Clinical Summary ---
Author Organization [facility] Address [address] [place] [address] [address] [place] [address] Care Team Providers Care Ethical Hacker Name Role Phone Unavailable Primary Care Provider Unavailabl e Allergies Active Allergy Reactions Criticality Noted Date Comments Bupropion Hives,Rash Medium 07/24/2016 Carbamazepine Unknown 01/10/2023 Iodine 07/24/2016 Levofloxacin GI bleeding,Rash Low 06/26/2017 Metoclopramide Unknown 02/01/2018 Other Reaction(s): tremors, Parkinsonism Morphine Hives,Shortness of breath,Itching High 07/24/2016 Other Reaction(s): Not available Penicillins Hives,Itching,Swell ing High 06/18/2017 Phenylmercuric Nitrate Anaphylaxis High 06/18/2017 Medications ARTIFICIAL TEAR INSERT OP daily. Active Sodium Fluoride (PreviDent 5000 Plus) 1.1 % cream Apply 5 mL to teeth Once daily. 51 g 3 05/07/2024 Active Active Problems No known active problems Social History Tobacco Use Types Packs/Day Years Used Date Smoking Tobacco: Never Assessed Comments Unknown Sex and Gender Information Value Date Recorded Sex Assigned at Female 12/28/2022 9:29 AM EDT Legal Sex Female 5:35 PM EDT Gender Identity Female 12/28/2022 9:29 AM EDT Sexual Orientation Don't know 12/28/2022 9: 29 AM EDT Last Filed Vital Signs Vital Sign Reading Time Taken Comments Blood Pressure 142/82 03/21/2023 11:01 AM EDT Pulse 22 07/31/2019 10:00 AM EST Temperature - - Respiratory Rate - - Oxygen Saturation - - Inhaled Oxygen Concentration - - Weight 84.4 kg (186 lb) 08/18/2019 2:30 PM EST Height 152.4 cm (5') 08/18/2019 2:30 PM EST Body Mass Index 36.33 08/18/2019 2:30 PM EST Plan of Treatment Health Maintenance Due Date Last Done Comments CT Colonography 1954 Depression Screening 1954 FIT DNA/Cologuard 1954 FIT 1954 FOBT 1954 Lipid Panel 1954 SDOH Screening 1954 Sigmoidoscopy 1954 Alcohol/Substance Use Screening 1966 Tobacco Screening 1966 Hepatitis C Screening 01/25/1972 RSV Patients and Patients Aged 60 years or older (1 - Risk 60-74 years 1-dose series) 2014 Mammogram 10/09/2020 10/09/2018, 03/15/2018 Dental Oral Exam 09/14/2024 03/13/2024, 11/2020, 02/10/2019 Dental Prophylaxis 09/14/2024 03/13/2024, 0 09/22/2021, 12/14/2020 Dental X-Ray: Bitewings 03/14/2025 03/13/20 24, 01/29/2023, 12/14/2020, Additional history exists DTaP/Tdap/Td Vaccines (2 - Td or Tdap) 09/24/2025 09/24/2015, 11/02/2005 Dental X-Ray: Full Mouth 01/30/2026 01/29/2023, 050 11/2020 Colonoscopy 05/14/2028 05/14/2018 Colorectal Cancer Screening 05/14/2028 Hepatitis A Vaccines Aged Out 01/28/2019, 05/01/2016, 04/05/2016 No longer eligible based on patient's age to complete this topic Hepatitis B Vaccines Completed 01/28/2019, 05/31/2016, 05/01/2016, Additional history exists Zoster Vaccines Completed 06/08/2019, 08/0 08/2018, 09/12/2010, Additional history exists Pneumococcal Vaccine: 50+ Years Completed 05/30/2022, 05/13/2020, 01/28/2019, Additional history exists COVID-19 Vaccine Completed 05/17/2024, 03/2024, 07/03/2023, Additional history exists Influenza Vaccine Completed 05/17/2024, , 05/19/2023, Additional history exists HIB Vaccines Aged Out No longer eligi ble based on patient's age to complete this topic HPV Vaccines Aged Out No longer eligi ble based on patient's age to complete this topic IPV Vaccines Aged Out No longer eligi ble based on patient's age to complete this topic Meningococcal Vaccine Aged Out No shraddha [place] eligible based on patient's age to complete this topic RSV under 20 months Aged Out No longe r eligible based on patient's age to complete this topic Rotavirus Vaccines Aged Out No longer eligible based on patient's age to complete this topic Procedures Procedure Name Priority Date/Time Associated Diagnosis Comments Full PROPHYLAXIS - ADULT Routine 03/13/2024 11:00 AM EDT BITEWINGS - 4 RADIOGRAPHIC IMAGES Routine 03/13/2024 11:00 AM EDT PERIODIC ORAL EVALUATION - ESTABLISHED PATIENT Routine 03/13/2024 11:00 AM EDT INTRAORAL - COMPLETE SERIES OF RADIOGRAPHIC IMAGES Routine 01/29/2023 2:00 PM EDT Encounter for dental examination and cleaning with abnormal findings MAMMOGRAM GENERIC Routine 10/09/2018 12: 00 AM EST COLONOSCOPY Routine 05/14/2018 12:00 AM EDT from Last 3 Months or Most Recently Relevant to Health Maintenance Results * MAMMOGRAM DIGITAL ERIK DIAGNOSTIC: [facility] (10/09/2018 12:00 AM EST) Anatomical Region Laterality Modality Breast Bilateral Mammography 10/09/2018 Narrative 10/09/2018 12:00 AM EST Refer to Fovea for result details Legacy Procedure: MAMMOGRAM DIGITAL ERIK DIAGNOSTIC: [facility] Procedure Note Provider, Historical, - 12/07/2022 Refer to Fovea for result details Legacy Procedure: MAMMOGRAM DIGITAL ERIK DIAGNOSTIC: [facility] RAD[facility]AG[facility] us Historical Provider MD GONZALEZ BI PROCEDURES Final R esult * -COLONOSCOPY (05/14/2018 12:00 AM EDT) Anatomical Region Laterality Modality Endoscopy 05/14/2018 Narrative 05/14/2018 12:00 AM EDT Refer to Fovea for result details Legacy Procedure: -COLONOSCOPY Procedure Note Provider, MD John - 12/07/2022 Refer to Fovea for result details Legacy Procedure: -COLONOSCOPY Historical Provider ENDOSCOPY PROCEDURE ORDER ERIS Final Result from Last 3 Months or Most Recently Relevant to Health Maintenance Insurance DENTAL [facility] [facility] ADULT DENT[facility] - N PARTIAL (MEDICAID)
== END 2024-10-03 11:05 | disposition home or self-care (01) ==
PROVIDERS: PCP Family Medicine; Visit Provider Urology
DX: N31.9 Neuromuscular dysfunction of bladder, unspecified (principal); N39.0 Urinary tract infection, site not specified
CPT/HCPCS: 99214; G2211

== ENCOUNTER → 2024-10-03 09:46 | Outpatient (BNVA) | payer MEDICARE, MEDICAID, SELFPAY | PROVIDERS: PCP Family Medicine; Visit Provider Urology | DX: N31.9 Neuromuscular dysfunction of bladder, unspecified (principal); N39.0 Urinary tract infection, site not specified | CPT/HCPCS: 99212 ==

== ENCOUNTER 2024-12-31 14:03 | Outpatient (AMB) | payer MEDICARE, MEDICAID, SELFPAY ==
--- NOTE | 2024-12-31 14:09 | A.OFFVIS_ITS ---
Intake Visit Reasons: med review Intake Note: Patient is present for MED REVIEW Urology Medication:VITAMIN C,TRIMETHOPRIM,ESTRADIOL Antibiotic Allergy:PENICLLINS Blood Thinner:RIVAROXABAN Tie Up Worker Required: No Allergies mercury (elemental) Allergy (Severe, Verified 12/31/24 14:10) Anaphylaxis Penicillins Allergy (Severe, Verified 12/31/24 14:10) Hives bupropion [From Wellbutrin] Allergy (Intermediate, Verified 12/31/24 14:10) Hives Iodinated Contrast Media [IV Contrast Dye] Allergy (Intermediate, Verified 12/31/24 14:10) Hives morphine Allergy (Intermediate, Verified 12/31/24 14:10) Hives metoclopramide [From Reglan] Adverse Reaction (Intermediate, Verified 12/31/24 14:10) Parkinson syndrome HPI Comments Details: Michelle is a pleasant female. She is a patient of Dr. Jean Baptiste. She is seen for following urologic conditions - multiple sclerosis - botox with indwelling catheter - neurogenic bladder - recurring UTIs - urosepsis after upper tract manipulation Telemedicine evaluation 15 minute consultation [employer] uday Video attempted Has questions regarding possible discharge Given fluconazole Discussed trimethoprim daily - check potassium for interaction Switched to Neotract VNA - uses Duette catheter 18 Swiss every 3 weeks - which appears to protect bladder - uses irrigation every other day Nephrolithiasis 03/05 Stent placed - left side 04/05 stent removal Had undergone procedure for stone - urosepsis presentation in February with ureteric stone Presented with urosepsis after 24 hrs with bladder spasms Culture enterococcus which was levaquin resistance On daptomycin for 4 weeks Responded well to daptomycin with complicated UTI However will require mid line if happens Neurogenic Bladder: Recurring urinary tract infection, bladder spasm Previously had Pseudomonas infection responsive to ciprofloxacin UTI appears to be decreasing with combination of Estrace, bladder irrigation - gram positive cocci Urinary retention initially found longstanding history. Diagnosed with multiple sclerosis approximately 15 years ago. Had been followed by Dr. Avina for many years Initially managed with clean intermittent catheterization Subsequently managed with indwelling Tran catheter Had been discussion of suprapubic tube placement however VNA nurses prevent this recurring uti 05/[address] Spencer and cystoscopy with removal of bladder stones - 12/01 cystoscopy Botox biopsy performed with chronic cystitis - 12/04 botox performed Botox Initial 03/01, 07/02, 10/31, 08/02, 05/04 200 units, 11/03 200 units Urine cultures - Pseudomonas fluoroquinolone resistant, citrobacter amp/cefazolin resistant Can only tolerate short course of fluroquinolones Has standing order for urine culture collection through VNA Previously used fosfomycin for catheter changes PFSH Medical History Bacteremia due to Enterococcus Recurrent UTI (urinary tract infection) Neurogenic bladder Urinary tract infection Wheelchair dependence Sacral decubitus ulcer Pulmonary emboli Cardiac arrest History of trigeminal neuralgia COVID-19 vaccine series completed Osteoporosis Neurogenic urinary bladder disorder NENO (obstructive sleep apnea) Parkinson's variant of multiple system atrophy Thyroid disease History of neurogenic bladder History of MRSA infection Hx of lymphoma Arthritis Back pain Hx pulmonary embolism DVT (deep venous thrombosis) Anemia Hiatal hernia Tran catheter in place Bladder stones Multiple sclerosis CVA (cerebral vascular accident) Myocardial infarction HTN (hypertension) Painful bladder spasm Surgical History Hx of hysterectomy Hx of lumpectomy Hx of vitrectomy History of intraocular lens implant Hx of adenoidectomy Hx of tonsillectomy Hx of laminectomy History of cystoscopy History of biopsy of bladder History of bladder surgery H/O colonoscopy Social History Household Members: None Housing: Apartment Are you a primary child caregiver private home to a significant other at home: No Do you presently have visiting nurse or other home services: Yes Patient Tobacco Use Status: Never used Tobacco Second Hand Smoke Exposure: No Advance Directives Date on File: 07/05/20 service: No Current occupational status: disabled Review of Systems Const All systems reviewed & are unremarkable except as noted in HPI and below Reports no additional complaints Resp Reports no additional complaints GI Reports no additional complaints Reports as per HPI Musc Reports no additional complaints Physical Exam Telemedicine evaluation Appropriate responses Regular breathing rate and rhythm HEENT Head: Yes normal to inspection Ears: hearing grossly normal bilaterally Eyes General: appearance normal, both eyes and all related structures Neck Neck: Yes normal visual inspection Chest Chest palpation & inspection: normal inspection of the chest Resp Effort & Inspection: normal respiratory effort and able to speak in complete sentences Telehealth Telehealth Location of provider rendering services: practice address Location of patient: address on file Patient Identification confirmed using: Name, : Yes Telehealth method: voice only Patient verbally consented to treatment: Yes Patient verbally consented to billing insurance company: Yes Patient informed of any privacy concerns related to visit: Yes Assessment & Plan Assessment & Plan (1) Recurrent UTI (urinary tract infection): Code(s): N39.0 - Urinary tract infection, site not specified Category: Medical Plan 4 month follow-up check potassium Orders: Orders Basic Metabolic Panel 4 Months N31.9 - Neuromuscular dysfunction of bladder, unspecified Basic Metabolic Panel Today N20.0 - Calculus of kidney, N31.9 - Neuromuscular dysfunction of bladder, unspecified, N39.0 - Urinary tract infection, site not specified Medications: New fluconazole 1 tab with repeat dosing 3 days later 150 mg PO Q3D 4 tabs 0RF 2 doses B49 - Unspecified mycosis Patient Instructions: This note is constructed using voice recognition software. While every effort has been made to ensure accuracy truck rental service attendant errors may have been included. Imaging studies, laboratory and physical exam results were discussed and reviewed in detail. No major barriers to patient understanding were identified. An opportunity to ask questions regarding the treatment plan was provided. All questions were answered. The patient expressed understanding and agreement with the above treatment plan. The patient is aware they should contact our office by phone for worsening of their current condition or the appearance of new urologic symptoms. Compliance is encouraged with any medications and followup testing that is ordered. It is a privilege to participate in the urologic care of your patient. If you have any questions or concerns regarding treatment for the above conditions, or other urologic issues, please do not hesitate to contact me. The office telephone contact is [phone]. Sincerely, Dr Gage Bass MD, [facility] - Urology Compassionate Specialist Care for the Genitourinary System Coding Level of Care Code Tele Est Pt Level 3 (31209) Complex EM visit Add On G2211 Diagnoses Recurrent UTI (urinary tract infection) N39.0
--- OUTSIDE RECORDS SUMMARY | 2024-12-31 14:30 | XMS_ITS | Encounter Summary ---
Author Organization [employer] Address [address] [facility] [address] [place] [address] Care Team Providers Care Nurse College Name Role Phone Unavailable Primary Care Provider [...]
--- OUTSIDE RECORDS SUMMARY | 2024-12-31 14:30 | XMS_ITS | Encounter Summary ---
Author Organization [employer] Address [address] [facility] [address] [place] [address] Care Team Providers Care School Athletic Director Name Role Phone Unavailable Primary Care Provider [...]
--- OUTSIDE RECORDS SUMMARY | 2024-12-31 14:31 | XMS_ITS | Clinical Summary ---
Author Organization [employer] Address [address] [facility] [address] [place] [address] Care Team Providers Care Brewery Technician Name Role Phone Unavailable Primary Care Provider [...] 1954 Depression Screening 1954 FIT DNA/Cologuard 1954 Lipid Panel 1954 SDOH Screening 1954 Sigmoidoscopy 1954 Alcohol/Substance Use Screening 1966 Tobacco Screening 1966 Hepatitis C Screening 01/25/1972 RSV Patients and Patients Aged 60 years or older (1 - Risk 60-74 years 1-dose series) 2014 Mammogram 10/09/2020 10/09/2018, 03/15/2018 FIT 06/14/2023 06/14/2022 FOBT 06/14/2023 06/14/2022 Dental Oral Exam 09/14/2024 03/13/2024, 11/2020, 02/10/2019 Dental Prophylaxis 09/14/2024 03/13/2024, 0 09/22/2021, 12/14/2020 COVID-19 Vaccine (2023- season) 2024 05/17/2024, 10/19/2023, 07/03/2023, Additional history exists Dental X-Ray: Bitewings 03/14/2025 03/13/20 24, 01/29/2023, 12/14/2020, Additional history exists DTaP/Tdap/Td Vaccines (2 - Td or Tdap) 09/24/2025 09/24/2015, 11/02/2005 Dental X-Ray: Full Mouth 01/30/2026 01/29/2023, 050 11/2020 Colonoscopy 05/14/2028 05/14/2018 Colorectal Cancer Screening 05/14/2028 Hepatitis A Vaccines Completed 01/28/2019, 05/01/2016, 04/05/2016 Hepatitis B Vaccines Completed 01/28/2019, 05/31/2016, 05/01/2016, Additional history exists Zoster Vaccines Completed 06/08/2019, 08/0 08/2018, 09/12/2010, Additional history exists Pneumococcal Vaccine: 50+ Years Completed 05/30/2022, 05/13/2020, 01/28/2019, Additional history exists Influenza Vaccine Completed 05/17/2024, , 05/19/2023, Additional history exists HIB Vaccines Aged Out No longer eligi ble based on patient's age to complete this topic HPV Vaccines Aged Out No longer eligi ble based on patient's age to complete this topic IPV Vaccines Aged Out No longer eligi ble based on patient's age to complete this topic Meningococcal B Vaccine Aged Out No l onger eligible based on patient's age to complete [...] Maintenance Results * MAMMOGRAM DIGITAL ERIK DIAGNOSTIC: [facility] (10/09/2018 12:00 AM EST) Anatomical Region Laterality Modality Breast Bilateral Mammography 10/09/2018 Narrative 10/09/2018 12:00 AM EST Refer to Fovea for result details Legacy Procedure: MAMMOGRAM DIGITAL ERIK DIAGNOSTIC: [facility] Procedure Note Provider, John, - 12/07/2022 Refer to Fovea for result details Legacy Procedure: MAMMOGRAM DIGITAL ERIK DIAGNOSTIC: [facility] us Historical Provider MD IMG BI PROCEDURES Final R esult * -COLONOSCOPY [...] Most Recently Relevant to Health Maintenance Insurance [facility] DENTAL - [place] PARTIAL (MEDICAID)
--- OUTSIDE RECORDS SUMMARY | 2024-12-31 14:31 | XMS_ITS | Data Portability ---
Author Organization [facility], [facility] Address [address] [place] [address] Care Team Providers Care Professional Development Manager Name Role Phone [facility] OTHER [phone] [facility] OTHER GINO MUNOZ OTHER CORNELIA DOSHI OTHER LINETTE MENEZES Complaint Evaluation Officer Assessment Encounter Date Assessment Date Assessment LastModified [...] to Include: Therapeutic exercise and Manual therapy raza Not available 04/09/2014 13:12:32 04/20/2014 04/20/2014 Patient [...] has an appt. later this week at [facility] (?) for further w/c assessment and supply of her AFO and heelbo.? ? ? Sensory testing today revealed decreased light touch discrimination in all right digits, with the little finger the worst.? ? ? Since much of her elbow leaning comes from decreased trunk control, she will follow-up with Eleonora Oro PT regarding that, in the meantime she [...] By Organization Details Last Modified Time 04/09/2014 [id number] Mobility Current G8978 {{CH (0%) CI (1-19%) [...] LastModifiedTime 04/02/20 14 04/14/2014 refer red to christian a test name: NMO 193 Not Available [facility] [address], [address], 04/14/2014 17:39:39 04/02/20 14 04/14/2014 refer red to athen a referred to dalila 04/15/20 14 Not Available [facility] [address], [address], 04/14/2014 17:39:39 04/02/20 14 04/14/2014 refer red to athen a Unknown Analyte A SPECI MEN HAS BEEN REFER RED FOR EVALU ATION AT YOUR REQUE ST TO [facility] [address], [place]. THE RESUL T WILL BE REPOR YOSSI DIREC TLY TO YOUR OFFIC E BY ATHEN A DIAGN OSTIC S. RAISSA HERNANDEZ WILL BE PERFO RMED DIRE TLY BY THE [facility]I [facility] . Not Available [facility] [address], [address], 04/14/2014 17:39:39 04/02/20 14 04/14/2014 test in [facility] [place] [facility] [place] quest [place] Unknown Analyte There is a quest ion regar ding the follo wing speci men submi tted and/o r the test reque sted. Not Available [facility] [address], [address], 04/14/2014 17:39:40 04/02/20 14 04/14/2014 [facility]: TEST 67207/ NEUROM YELITI S OPTIC A AB REQUI RES AN ATHEN A REQ FILLE D OUT BY DUNG Ramos Not Available [facility] [address], [place], [address], 04/14/2014 17:39:40 04/14/20 14 04/14/2014 basic metab olic panel glucose 89 mg/dL 70-99 Not Available [facility] (Outpatient) [address] [place] [address], [address], 04/14/2014 17:04:19 04/14/20 14 04/14/2014 basic metab olic panel BUN 21 mg/dL 6-19 high Not Available [facility] (Outpatient) [address] [place] [address], [address], 04/14/2014 17:04:19 04/14/20 14 04/14/2014 basic metab olic panel creatinine 0.8 mg/dL 0.5-1. 5 Not Available [facility] (Outpatient) [address] [place] [address], [address], 04/14/2014 17:04:19 04/14/20 14 04/14/2014 basic metab olic panel GFR >60 Not Available [facility] (Outpatient) [address] [place] [address], [address], 04/14/2014 17:04:19 04/14/20 14 04/14/2014 basic metab olic panel sodium 139 mEq/L 133-14 5 Not Available [facility] (Outpatient) [address] [place] [address], [address], 04/14/2014 17:04:19 04/14/20 14 04/14/2014 basic metab olic panel potassium 4.5 mEq/L 3.3-5. 1 Not Available [facility] (Outpatient) [address] [place] [address], [address], 04/14/2014 17:04:19 04/14/20 14 04/14/2014 basic metab olic panel chloride 101 mEq/L 96-108 Not Available [facility] (Outpatient) [address] [place] [address], [address], 04/14/2014 17:04:19 04/14/20 14 04/14/2014 basic metab olic panel CO2 23 mEq/L 21-35 Not Available [facility] ([facility]patient) [address] [place] [address], [address], 04/14/2014 17:04:19 04/14/20 14 04/14/2014 basic metab olic panel calcium 9.2 mg/dL 8.4-10 .3 Not Available [facility] (Outpatient) [address] [place] [address], [address], 04/14/2014 17:04:19 04/14/20 14 04/14/2014 basic metab olic panel anion gap 20 mEq/L 10-20 Not Available [facility] (Outpatient) [address] [place] [address], [address], 04/14/2014 17:04:19 11/03/19 17 11/02/2016 cultu re, wound culture wound Mixed aerobi c maya isolat ed, no predom inance . - Cultur e consis ts of E. coli, beta Strep not Group A, - Entero coccus and alpha Strep not Group D. Not Available [address], [address], 11/04/2016 09:26:16 11/03/19 17 11/02/2016 cultu re, wound stain, gram Modera te WBCs seen - No organi sms seen Not Available [facility] [address] [facility], [place], [address], 11/04/2016 09:26:16 03/13/20 14 03/13/2014 x-ray , ankle OBSERV ATION: Right ankle series : Histor y: Ankle pain 3 views. No fractu re, disloc ation or focal bone pathol ogy is seen. Genera lized soft tissue swelli ng is noted. Impres monika: No eviden ce of fractu re. Electr onical ly signed Radha Oconnor juan alberto: Moody Osorio MD [facility] (Imaging) [address] , [place], [address], 07/21/2015 04:00:31 04/02/20 14 04/01/2014 imagi ng/di agnos tic resul t No observ ation record ed. tfurcolo Not Available 2013 18:45:48 04/10/20 14 11/29/2012 imagi ng/di agnos tic resul t No observ ation record ed. tfurcolo [facility]) [address], [place], [address], 04/10/2014 20:43:02 Result Notes None recorded. Problems Name Problem SNOMED Code Status Onset Date Resolution Date Notes Provider Name and Address Organization Details Recorded Time Neuropathy 405172322 Active Sue Lexicokristy D.O. [address] [place] [address], [address] , [facility] 4 18:20:30 Peripheral venous insufficie ncy 94503471 Active Sue Furcolo D.O. [address] [place] [address], [address] , [facility] 4 12:15:51 Cerebrovas cular accident 225514404 [facility] 4 09:57:24 Morbid obesity 417318704 Active Sue Lexicolo D.O. [address] [place] [address], [address] , [facility] 4 15:07:20 Pulmonary embolism 31508347 Active Suenorma Driscoll D.O. [address] [place], [address] , [facility] 5 06:59:38 Mixed hyperlipid emia 798563023 Active 2006 Nicolasa Wilsonkuldip null, [facility] 4 15:00:29 Dermatophy tosis of the body Completed 200507/26/2011 Not Available [facility] 3 03:12:43 Amnesia 68208961 Completed 07/26/2011 Not Available [facility] 3 03:12:43 Recurrent major depressive episodes 031475332 Active Sue Everettlo D.O. [address] [place], [address] , [facility] 4 12:15:51 Abnormal gait 95941619 Completed 200707/26/2011 Not Available [facility] 3 03:12:43 Essential hypertensi on 54016673 Completed 09/02/2012 Not Available [facility] 3 03:12:43 Traumatic blister of foot 278736916 Completed 200707/26/2011 Not Available [facility] 3 03:12:43 Subcutaneo us nodule 21239026 Completed 09/02/2012 Not Available [facility] 3 03:12:43 Constipati on 51599502 Completed 200407/26/2011 Not Available [facility] 3 03:12:43 Multiple sclerosis 00287731 Active 2004 Dyana Valentino RN null, [facility] 4 12:37:48 Benign essential hypertensi on 9924135 Completed 200709/02/2012 Not Available [facility] 3 03:12:43 Skin sensation disturbanc e 56334567 Completed 200607/26/2011 Not Available [facility] 3 03:12:43 Neurogenic urinary bladder 807662872 Active Dyana Valentino RN null, [facility] 4 12:37:48 Disorder of trunk 272871106 Completed 200607/26/2011 Not Available [facility] 3 03:12:43 Retinal detachment 86093970 Completed 200607/26/2011 Not Available [facility] 3 03:12:43 Major depression , melancholi c type 686830224 Active 2007 Sue Driscoll D.O. [address] [place] [address], [address] , [facility] 3 20:22:46 Acute stress disorder 53292341 Completed 200607/26/2011 Not Available [facility] 3 03:12:43 Pain of joint 20656548 Completed 200707/26/2011 Not Available [facility] 3 03:12:43 Candidiasi s 90701164 Completed 200507/26/2011 Not Available [facility] 3 03:12:43 Anemia 378112002 Completed 07/26/2011 Not Available [facility] 3 03:12:43 Elevated blood-pres sure reading without diagnosis of hypertensi on 121835064 Active Not Available [facility] 3 03:12:43 Hyperlipid emia 51683425 Completed 200407/26/2011 Not Available [facility] 3 03:12:43 Malaise and fatigue 526760408 Completed 200407/26/2011 Not Available [facility] 3 03:12:43 Acquired hypothyroi dism 514838191 Active Sue Driscoll D.O. [address] [place] [address], [address] , [facility] 4 12:15:51 Acquired hypothyroi dism 960881475 Completed 07/26/2011 Not Available [facility] 3 03:12:43 Decrease in height 20127323 Completed 200607/26/2011 Not Available [facility] 3 03:12:43 Elevated level of transamina se and lactic acid dehydrogen ase 425804182 Completed 200407/26/2011 Not Available [facility] 3 03:12:43 Premature menopause 992576968 Completed 200607/26/2011 Not Available [facility] 3 03:12:43 Lymphadeno jonathan 23509249 Completed 200407/26/2011 Not Available [facility] 3 03:12:43 Swelling of limb 13451326 Completed 200607/26/2011 Not Available [facility] 3 03:12:43 Finding by method 291885421 Completed 200507/26/2011 Not Available [facility] 3 03:12:43 Breast lump 71162413 Completed 200407/26/2011 Not Available [facility] 3 03:12:43 Sequelae of neurologic al disorders 740337829 Completed 200807/26/2011 Not Available [facility] 3 03:12:43 Edema of extremity 071676855 Completed 07/02/2013 Not Available [facility] 3 02:02:55 Edema of extremity 075039951 Completed 200607/26/2011 Not Available [facility] 3 03:12:43 On examinatio n - a rash Completed 200407/26/2011 Not Available [facility] 3 03:12:43 Narcolepsy 52359414 Active Sue Driscoll D.O. [address] [place] [address], [address] , [facility] 4 15:07:20 Chronic pain 93817378 Completed 09/02/2012 Not Available [facility] 3 03:12:43 Senile osteoporos is 66962644 Completed 200607/26/2011 Not Available [facility] 3 03:12:43 General symptom 063212284 Completed 200807/26/2011 Not Available [facility] 3 03:12:43 Low back pain 684911109 Completed 200409/02/2012 Not Available [facility] 3 03:12:43 Hypothyroi dism 49534972 Active 2004 [facility] 5 11:31:22 Primary fibromyalg ia syndrome 05129417 Completed 200407/26/2011 Not Available [facility] 3 03:12:43 Menopausal and postmenopa usal disorders 792660864 Completed 07/26/2011 Not Available [facility] 3 03:12:43 Problem Notes None recorded. Procedures Surgical History Date Name Laterality Status Provider Name and Address Organization Details Recorded Time 05/05/20 14 Current <strong>Medicati ons</strong> not Documented, Reason not Given (G8428) completed Savanah Oro, PT [address] [place], [address], [facility] 05/05/2014 12:08:32 04/27/20 14 Current <strong>Medicati ons</strong> not Documented, Reason not Given (G8428) completed Shweta Hylton, OT [address] [place], [address], [facility] 04/27/2014 14:13:14 04/20/20 14 Current <strong>Medicati ons</strong> not Documented, Reason not Given (G8428) nickie Oro, PT [address] [place], [address], [facility] 04/21/2014 06:33:12 04/20/20 14 <strong>Pain</st idania> Assessment - No Pain (G8731) completed Shweta Hylton, OT [address] [place], [address], [facility] 04/20/2014 22:32:55 04/20/20 14 <strong>Falls</s sheri> Risk Assessment - At Risk (3288F + 1100F) completed Shweta Hylton, OT [address] [place], [address], [facility] 04/20/2014 22:32:55 04/20/20 14 <strong>Function al</strong> Assessment Not Done (G8540) completed Shweta Yuki Concetta, OT [address] [place], [address], [facility] 04/20/2014 22:32:55 04/20/20 14 <strong>Falls</s sheri> No POC (0518F,8P) completed Shwetaigor Silveiraum, OT [address] [place], [address], [facility] 04/20/2014 22:32:55 04/20/20 14 <strong>Tobacco< /strong> Non-User (1036F) completed Shwetaigor Silveiraum, OT [address] [place], [address], [facility] 04/20/2014 22:32:55 04/20/20 14 <strong>BMI</str jimmy> not Documented, Reason not Given (G8421) completed Shwetaigor Silveiraum, OT [address] [place], [address], [facility] 04/20/2014 22:32:55 04/20/20 14 Current <strong>Medicati ons</strong> not Documented, Reason not Given (G8428) completed Shweta Hylton, OT [address] [place], [address], [facility] 04/20/2014 22:32:55 04/09/20 14 <strong>Pain</st idania> Assessment and Follow-up (G8730) completed Savanah Oro, PT [address] [place], [address], [facility] 04/09/2014 13:12:32 04/09/20 14 <strong>Falls</s sheri> Risk Assessment - No Risk (1101F) completed Savanah Oro, PT [address] [place], [address], [facility] 04/09/2014 13:12:32 04/09/20 14 <strong>Function al</strong> Outcome w/ POC (G8539) completed Savanah Oro, PT [address] [place], [address], [facility] 04/09/2014 13:12:33 04/09/20 14 <strong>BMI</str jimmy> not Documented, Reason not Given (G8421) completed Savanah Oro, PT [address] [place], [address], [facility] 04/09/2014 13:12:33 04/09/20 14 Current <strong>Medicati ons</strong> Documented (G8427) completed Savanah Oro, PT [address] [place], [address], [facility] 04/09/2014 13:12:33 01/21/20 14 Medicare Wellness Visit completed Geni Shaffer LPN [facility] 01/20/2014 13:53:57 12/17/19 13 Medicare Wellness Visit completed Geni Shaffer LPN [facility] 12/16/2012 15:19:39 Total Hysterectomy completed Sue Driscoll D.O. [address] [place], [address], [facility] 12/16/2012 16:30:23 Imaging Results Imaging Date Name Status LastModified by Organiz ation Details LastModified Time 03/13/2014 x-ray, ankle completed [facility] (Imaging) [address], [place], [address], 07/21/2015 04:00:31 04/01/2014 [facility] gn[facility] 04/02/2014 18:45:48 11/29/2012 imaging/alexy gnostic [facility] [address], [place], [address], 04/10/2014 20:43:02 Procedure Notes None recorded. Medical Equipment None Reported. Allergies Allergen ID Allergen Name Allergen Category Reaction Reaction Severity Criticality Documentation Date Start Date Code Code System Note Provider Name and Address Organization Details Recorded Time 27546 bupropion Not available rash Not available Not available 11/02/2009 17326 RxNorm Not Available [facility] 1 06:05:41 18829 Product containin g penicilli n (product) medicatio n rash Not available Not available 11/02/2009 59719 8001 SNOMED Not Available [facility] 1 06:05:20 55152 Substance with sulfonami de structure and antibacte rial mechanism of action (substanc e) medicatio n Not available Not available Not available 11/02/2009 94001 8003 SNOMED pt state s she felt not right and the med did not work prope rly Not Available [facility] 1 06:05:20 10822 iodine medicatio n rash Not available Not available 11/02/2009 5933 RxNorm Not Available [facility] 1 06:05:20 84994 morphine medicatio n rash Not available Not available 11/02/2009 7052 RxNorm Not Available [facility] 1 06:05:20 66161 Reglan medicatio n Not available Not available Not available 05/26/2010 9230 RxNorm tremo rs, rigid ity Not Available [facility] 1 06:05:41 Medications Name Sig Start Date Stop Date Status Note LastModified by Organization Details LastModified Time 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 2013 active Not Available Not Available Not [...] by oral route at bedtime. active per O'Senthil l Not Available Not Available Not Available [...] address, she has to mail it to [facility] . Please do for 90 days. Not Available Not Available Not Available Enemeez 283 mg enema USE DAILY NEEDED 2011 active Not Available Not Available Not Avai lable Enemeez Plus 283 mg-20 mg enema use daily as needed 2009 active Pt called and states she cannot fill at mail away. Would like new rx to go to [facility] [place] Not Available Not Available Not [...] Tobacco Smoking Status Never Smoker Not Available [facility] 06/29/2011 04:53:49 Do You Have An Advance Directive? Yes In Paper Chart ptalley Information not available 05/26/2010 What Is Your Level Of Caffeine Consumption? Moderate Information not available 01/20/2014 What Type Of Diet Are You Following? REGULAR 17 Information not available 06/29/2011 How Many Days In The Past Year Have You Had A Heavy Drinking Consumption (4+ Female, 5+ Male)? 0 lpolidoro Information not available 09/06/2012 Are There Any Guns Present In Your Home? No Information not available 12/16/2012 Live Alone Or With Others? Alone 17 Information not available 06/29/2011 Marital Status In 2006 tfurcolo Information not available 07/31/2011 Mosquito Repellent Used Routinely No Information not available 12/16/2012 How Many Children Do You Have? 0 17 Information not available 06/29/2011 Seat Belts Used Routinely Yes Information not available 12/16/2012 Are You Sexually Active? No Information not available 06/29/2011 Smoke Alarm In Home Yes Information not available 12/16/2012 General Stress Level High Information not available 01/20/2014 Do You Use Sunscreen Routinely? Yes Information not available 12/16/2012 Sex: Unknown Functional Status Question Answer Note LastModified by Organizat ion Details LastModified Time What is your level of alcohol consumption? 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 Family History Nothing Reported Notes:Cardiovascular: Family history is remarkable for coronary artery disease. Neurological: Family history is remarkable for Parkinson's Disease. Supranuclear palsy Mother. Medical History Condition Response Venous Insuffiency Y Hypothyroid Y NEUROLOGIC Y RENAL / GENITOURINARY Stroke Y Depression Y Asthma Y Pulmonary Embolus Y Kidney Disease Chronic Back Pain Y Gynecological HistoryNo gynecological history recorded. Obstetrics History GPAL:G 0 P 0 0 0 0 Immunizations Vaccine Type Date Status Note Provider Nam e and Address Organization Details Recorded Time Influenza, split virus, trivalent, preservative 9 completed Not Available [facility] 08/30/2019 02:28:51 influenza, unspecified formulation 5 completed Not Available [facility] 06/28/2011 05:21:29 Td(adult) unspecified formulation 6 completed Not Available [facility] 06/28/2011 05:21:29 influenza, unspecified formulation 8 completed Not Available [facility] 06/28/2011 05:21:55 Novel Ntuiankjv-[id number], all formulations 9 completed Not Available [facility] 09/13/2019 02:10:38 pneumococcal polysaccharide PPV23 7 completed Not Available [facility] 06/28/2011 05:22:41 influenza, unspecified formulation 0 completed Not Available [facility] 06/28/2011 05:22:41 Influenza, split virus, trivalent, preservative 2 completed Geni Shaffer LPN [facility] 08/30/2012 15:00:23 Influenza, split virus, trivalent, preservative 3 completed Geni Shaffer LPN [facility] 06/26/2013 12:12:02 Influenza, split virus, trivalent, PF 4 completed Not Available [facility] 09/13/2019 02:10:39 zoster live 1 completed Not Available [facility] 08/30/2019 02:16:29 Past Encounters Encounter ID Performer Location Encounter Start Date Encounter Closed Date Diagnosis/Indication Diagnosis SNOMED-CT Code Diagnosis ICD10 Code Diagnosis Note [id number] Nathaly Schaffer NP [place], [facility] [address] [place] [address] 02/17/2005 12:21:55 02/20/2005 08:54:46 [id number] [facility] [place] [address] [place] [address] 02/17/2005 14:35:03 02/17/2005 14:35:29 [id number] [facility] [place] [address] [place] [address] 03/03/2005 13:18:19 03/03/2005 13:18:42 [id number] Ayala Pichardo MD , [facility] [address] [place] [address] 03/03/2005 11:42:10 03/06/2005 12:32:36 [id number] [facility] , [address] [place] [address] 03/07/2005 11:35:07 03/07/2005 11:53:03 [id number] [facility] , [address] [address] 03/07/2005 00:00:00 09/02/2008 02:02:29 [id number] Lucie Cedeno FP, [facility] [address] [place] [address] 03/14/2005 14:01:54 03/16/2005 09:04:57 [id number] MD KAREN Hughes, [facility] [address] [place] [address] 05/22/2005 17:03:22 05/23/2005 08:53:11 [id number] [facility] FP, [facility] [place] [address] [place] [address] 06/13/2005 16:28:50 06/13/2005 16:28:59 [id number] Ayala Pichardo MD , [facility] [address] [place] [address] 06/22/2005 10:39:09 06/26/2005 09:32:55 [id number] [facility] - [facility] [address] [place] [address] 06/22/2005 12:17:31 06/22/2005 12:21:33 [id number] [facility] , [facility] [address] [place] [address] 11/02/2005 13:28:28 11/03/2005 09:01:10 [id number] [facility] , [facility] [address] [place] [address] 11/02/2005 00:00:00 09/02/2008 02:02:29 [id number] Ayala Pichardo MD , [facility] [place] [address] [place] [address] [address] [place] [address] 11/02/2005 12:22:13 11/10/2005 08:25:09 [id number] Ayala Pichardo MD , [facility] [place] [address] [place] [address] [address] [place] [address] 11/02/2005 12:22:13 11/10/2005 08:25:09 [id number] Ayala Pichardo MD , [facility] [place] [address] [address] [place] [address] 01/18/2006 14:40:14 09/02/2008 02:02:29 [id number] [facility] [address] [place] [address] 02/09/2006 14:40:21 02/09/2006 14:40:32 [id number] [facility] - [facility] [address] [place] [address] 08/23/2006 16:21:04 08/23/2006 16:21:12 [id number] Ayala Pichardo MD , [facility] [address] [place] [address] 1 08/23/2006 15:08:02 08/28/2006 08:40:07 [id number] Ayala Pichardo MD , [facility] [address] [place] [address] 1 09/13/2006 11:04:37 09/17/2006 13:05:13 [id number] [facility] Radiology , [facility] [address] [place] [address] 1 10/04/2006 15:05:54 10/04/2006 16:43:00 [id number] [facility] Radiology , [facility] [address] [place] [address] 1 10/04/2006 00:00:00 09/02/2008 02:02:29 [id number] Mame Flynn FP, [facility] [place] [address] [place] [address] 1 01/23/2007 16:49:56 2007 09:09:18 [id number] [facility] Technologi st Radiology , [facility] [place] [address] 1 01/28/2007 16:24:56 01/28/2007 16:55:18 [id number] [facility] Technologi [facility] Radiology , [address] [place] [address] 1 01/28/2007 00:00:00 09/02/2008 02:02:29 [id number] Ayala Pichardo MD , [facility] [address] [place] [address] 1 02/08/2007 08:52:21 02/08/2007 12:00:39 [id number] Linette Ferrara i, PT Physical Therapy, [facility] [place] [address] 1 03/21/2007 15:44:47 03/21/2007 16:38:21 [id number] [facility] - [facility] [place] [address] 1 03/22/2007 14:30:39 03/22/2007 14:30:45 [id number] Linette Ferrara i, PT Physical Therapy, [facility] [place] [address] 1 03/26/2007 16:30:45 03/26/2007 16:30:49 [id number] Linette Ferrara i, PT Physical Therapy, [facility] [place] [address] 1 04/02/2007 16:42:33 04/02/2007 16:42:37 [id number] Linette Ferrara i, PT Physical Therapy, [address] [place] [address] 1 04/25/2007 14:37:58 04/25/2007 14:38:02 [id number] Toby JONES, [facility] [address] [place] [address] 05/03/2007 12:04:30 05/07/2007 10:29:47 [id number] Fina Mendez, [facility] [address] [place] [address] 1 08/12/2007 10:17:20 09/02/2008 02:02:29 [id number] [facility] - [facility] [address] [place] [address] 1 09/13/2007 10:32:51 09/13/2007 10:32:59 [id number] Toby JONES, [facility] [address] [place] [address] 1 09/13/2007 09:04:20 09/02/2008 02:02:29 [id number] MD KAREN Verdin [facility] [address] [place] [address] 1 01/14/2008 09:55:23 09/02/2008 02:02:29 [id number] [facility] Technologi st Radiology , [facility] [address] [place] [address] 01/14/2008 11:51:53 01/14/2008 13:14:55 [id number] [facility] - [facility] [address] [place] [address] 03/31/2008 13:26:23 03/31/2008 13:26:35 [id number] MD KAREN Verdin, [facility] [address] [place] [address] 1 03/31/2008 11:43:15 09/02/2008 02:02:29 [id number] [facility] - [facility] [address] [place] [address] 04/02/2008 15:25:54 04/02/2008 15:26:04 [id number] FP TREATMENT NURSE [facility] [place]AREN, [facility] [address] [place] [address] 1 04/02/2008 16:17:34 09/02/2008 02:02:29 [id number] MD KAREN Verdin, [facility] [address] [place] [address] 1 05/20/2008 13:43:42 09/02/2008 02:02:29 [id number] [facility] - [facility] [place] [address] 1 05/20/2008 15:24:36 05/20/2008 15:24:46 [id number] Ayala Pichardo MD , [facility] [address] [place] [address] 1 05/20/2008 00:00:00 09/02/2008 02:02:29 [id number] [facility] - [facility] [place] [address] 1 06/03/2008 11:49:14 06/03/2008 11:49:22 [id number] Linette Ferrara i, PT Physical Therapy, [facility] [place] [address] 1 06/15/2008 12:48:01 06/15/2008 12:48:05 [id number] Linette Ferrara i, PT Physical Therapy, [address] [place] [address] 1 06/18/2008 12:14:03 06/18/2008 12:14:10 [id number] Gino Manuel MD Rheumatol ogy, [facility] [address] [place] [address] 1 07/02/2008 13:39:42 09/02/2008 02:02:29 [id number] [facility] - [facility] [place] [address] 1 07/03/2008 09:31:46 07/03/2008 09:31:55 [id number] Ayala Pichardo MD , [facility] [address] [place] [address] 1 08/05/2008 08:07:29 09/02/2008 02:02:29 [id number] MD KAREN Verdin, [facility] [address] [place] [address] 1 11/27/2008 09:10:03 11/30/2008 10:16:32 [id number] MD KAREN Verdin, [facility] [address] [place] [address] 1 03/03/2009 11:10:51 03/04/2009 08:33:03 [id number] [facility] KAREN, [facility] [address] [place] [address] 1 04/26/2009 10:47:10 04/27/2009 08:56:40 [id number] [facility] [place] [address] [place] [address] 1 09/18/2008 15:34:45 09/18/2008 15:34:54 [id number] [facility] [place] [address] [place] [address] 1 11/27/2008 09:03:39 11/27/2008 09:03:44 [id number] [facility] [address] [place] [address] 1 01/01/2009 12:40:48 01/01/2009 12:41:00 [id number] [facility] [address] [place] [address] 1 01/11/2009 09:55:16 01/11/2009 09:55:22 [id number] [facility] [address] [place] [address] 1 03/03/2009 12:42:43 03/03/2009 12:42:55 [id number] [facility] [address] [place] [address] 1 04/26/2009 11:08:33 04/26/2009 11:08:41 [id number] [facility] Radiology , [address] [place] [address] 1 11/02/2009 08:56:29 11/03/2009 13:19:41 [id number] Sue JONES [facility] [address] [place] [address] [place] [address] 1 11/02/2009 10:08:23 11/02/2009 14:04:00 [id number] Sue JONES [facility] [address] [place] [address] [place] [address] 1 12/06/2009 14:16:43 12/07/2009 09:45:30 [id number] Sue JONES [facility] [address] [place] [address] [place] [address] 1 01/04/2010 10:42:23 01/05/2010 10:00:06 [id number] Sue JONES [facility] [place] [address] [place] [address] 1 01/20/2010 10:27:17 01/21/2010 12:36:55 [id number] Sue JONES, [facility] [address] [place] [address] 1 05/26/2010 15:31:30 05/27/2010 09:16:06 [id number] Sue Driscoll D.O. FP, [facility] [address] [place] [address] 1 09/01/2010 15:29:49 09/02/2010 09:12:19 [id number] [facility] Technologi st Radiology , [facility] [address] [place] [address] 09/01/2010 16:22:00 09/02/2010 10:35:01 [id number] TREATMENT NURSE [facility], [facility] [address] [place] [address] 1 09/12/2010 15:22:37 09/13/2010 09:38:04 [id number] Sue Driscoll D.O. , [facility] [address] [place] [address] 1 09/28/2010 09:03:36 09/28/2010 14:00:05 [id number] Savanah Oro PT Physical Therapy, [address] [place] [address] 10/03/2010 11:54:26 10/06/2010 11:15:20 [id number] Savanah Oro PT Physical Therapy, [address] [place] [address] 1 10/06/2010 14:52:56 10/10/2010 10:53:37 [id number] Savanah Oro PT Physical Therapy, [address] [place] [address] 1 10/10/2010 12:00:39 10/11/2010 14:00:47 [id number] Savanah Oro PT Physical Therapy, [address] [place] [address] 1 10/13/2010 14:53:56 10/14/2010 13:26:11 [id number] Savanah Oro PT Physical Therapy, [address] [place] [address] 1 10/19/2010 12:23:54 10/20/2010 14:00:37 [id number] Savanah Oro PT Physical Therapy, [address] [place] [address] 1 10/25/2010 14:57:38 10/26/2010 17:25:42 [id number] Savanah Oro, PT Physical Therapy, [address] [place] [address] 1 10/31/2010 14:57:39 11/01/2010 11:23:41 [id number] Savanah Oro, PT Physical Therapy, [address] [place] [address] 1 11/03/2010 14:36:53 11/04/2010 11:44:24 [id number] Savanah Oro, PT Physical Therapy, [address] [place] [address] 1 11/10/2010 14:49:41 11/11/2010 12:52:09 [id number] Savanah Oro, PT Physical Therapy, [address] [place] [address] 1 11/14/2010 14:43:27 11/15/2010 12:20:09 [id number] Sue JONES [facility] [address] [place] [address] [place] [address] 1 12/12/2010 16:26:40 12/13/2010 10:21:13 [id number] Sue Driscoll D.O. [facility], [address] [place] [address] 1 07/31/2011 10:18:57 07/31/2011 11:43:07 [id number] Sue Driscoll D.O. [facility], [address] [place] [address] 1 10/11/2011 11:14:48 10/11/2011 12:24:17 [id number] [facility] Technologi st Radiology , [address] [place] [address] 10/11/2011 12:24:44 10/13/2011 15:44:33 [id number] Sue Driscoll D.O. [facility] [address] [place] [address] [place] [address] 1 03/01/2012 10:26:27 03/01/2012 12:39:26 [id number] Yue Victoria MD Radiology , [address] [place] [address] 1 06/07/2012 13:02:19 06/12/2012 08:12:21 [id number] Sue Driscoll D.O. [facility], OFFICE [address] [place] [address] 1 08/30/2012 14:37:29 08/30/2012 15:41:59 [id number] Jake Higgins MD [facility], OFFICE [address] [place] [address] DR [place] [address] 1 09/06/2012 11:43:17 09/06/2012 12:17:05 [id number] Sue Driscoll D.O. [facility], OFFICE [address] [place] [address] 1 12/16/2012 14:47:05 12/16/2012 16:07:06 [id number] Linette Menezes DPM Podiatry, [facility] [address] [facility] [place], [place] [address] 03/10/2013 11:31:01 03/10/2013 12:57:34 [id number] Sue Driscoll D.O. [facility], OFFICE [address] [place] [address] DR [place] [address] 1 06/26/2013 11:42:41 06/27/2013 08:04:44 Multiple sclerosis [id number] numerous issues today- brought a typed agenda to help with andrew hinojosa needs letters of medical necessity and letters of support of treatments which are beneficial to her healthy needs repeat letter for per mobile Excessive daytime sleepiness - normal night sleep [id number] on provigil. still numerous issues with sleep patterns, periodic limb moment many quetions regarding supplement s for periodic limb mvmt Major depr ession, melancholic type [id number] Narcolepsy 34090561 feel s that provigil is not as effective Neurogenic urinary bladder 698077547 numerous issues, needs pads Acquired hypothyroidism 767199530 stable labs Obesity 906263101 Neuropathy 357974514 boris ateral neuropathy , needs special shoes and to be fitted for them Peripheral venous insufficiency 47726935 chronci edema, on furosemide [id number] Linette Menezes DPM Podiatry, [facility] [address] [place] [address] 09/12/2013 10:14:24 09/12/2013 16:11:26 Hereditary peripheral neuropathy 81205979 Disorder of nail 74216881 [id number] Sue Driscoll D.O. [facility], OFFICE [address] [place] [address] 09/12/2013 10:15:17 09/15/2013 08:26:27 Infective otitis externa 46545301 rigth ear canal inflammati on. wears hearing aids. recommend using 4 day course of drops. will abstain from using hearing aides during this time Recurrent major depressive episodes 887518737 stable, has less energy/sta delmi with MS Neurogenic urinary bladder 747938948 numerous issues, needs pads Acquired hypothyroidism 515716431 stable labs Narcolepsy 89531864 feel s that provigil is not as effective, but contineus to use Peripheral venous insufficiency 49547105 chronic edema, on furosemide Neuropathy 503959010 boris ateral neuropathy , needs special shoes and to be fitted for them- getting done through podiatry Multiple sclerosis 91661463 need shower bench that has secure handle to get in and out of shower. needs letter of medical necessity Cerebrovas cular accident [id number] previous CVA. late effects, weakness, impaired gait [id number] Sue Driscoll D.O. , [facility] [place] [address] [place] [address] 01/20/2014 13:25:56 01/21/2014 09:11:12 Adult health examination [id number] see Risk Assessment and Lifestyle Change Counseling section above Counseling [id number] Narcolepsy 47091709 Insomnia 641783081 Multiple sclerosis 39627100 loss of function, mostly wheelchair bound Edema 985034616 likely multifacto rial. discussed cutting down on numerous suplemets and reading labels for salt. will keep legs elevated in the day and wear supportive hose. avoid naproxen. Neuropathy 276705457 rig th foot - palmar aspect ?if from cipro Retinal detachment 82913723 left eye retinal detachment previously Morbid obesity 631288363 wheelchair bound only does 1 step transfers Cerebrovas cular accident 090722125 previous CVA. late effects, weakness, impaired gait [id number] Linette Menezes DPM Podiatry, [facility] [address] [place] [address] 03/13/2014 11:07:10 03/13/2014 12:10:32 Hereditary peripheral neuropathy 26941350 Disorder of nail 14964125 [id number] Sue Driscoll D.O. , [facility] [address] [place] [address] 04/02/2014 11:12:00 04/03/2014 08:17:11 Neuropathy 384291491 recent increase in gabapentin , more effective for burning of feet Venous stasis 49679528 w ill be going to [facility] tomorrow to be fitted for compressio n knee highs may consider doing intermitte nt lala cath for a few days so that she will be able to take furosemide 40 mg daily for 3-4 days Ulcer 967488004 perinea l skin breakdown- seeing [facility] wound clinic suspect widespread edema and limited mobility contributi ng to skin breakdown Multiple sclerosis 54404225 declining ability to self-cath [id number] Savanah Oro, PT Physical Therapy, [address] [place] [address] 04/09/2014 11:51:52 04/09/2014 16:34:58 Foot pain 02044605 [id number] Shweta Hylton, OT Physical Therapy, [address] [address] 04/20/2014 13:40:58 04/21/2014 10:51:24 Ulnar neuropathy 790496969 [id number] Savanah Oro, PT Physical Therapy, [address] [address] 04/20/2014 13:44:41 04/21/2014 13:40:34 Foot pain 77028859 [id number] Shweta Hylton, OT Physical Therapy, [address] [address] 1 04/27/2014 10:55:07 04/27/2014 16:40:57 Ulnar neuropathy 864827854 [id number] Savanah Oro, PT Physical Therapy, [address] [address] 05/05/2014 10:49:39 05/06/2014 10:12:32 Foot pain 02225695 Health Concerns Section Related Observation LastModified by Organization Detai ls LastModified Time None Recorded Concern Status LastModified by Organization Details LastModified Time None Recorded Advance Directives Directive Y: in paper chart Payers Encounter Date Sequence Insurance Name Policy Number Policy Dueñas Covered Member ID Dueñas Member ID Guarantor Name 04/09/2014 1 [place]IC[place] B-[place]: [facility] [employer] Michelle BnyumSimin [facility] [id number] Michelle A Any-Feroz h 04/09/2014 2 [place] [facility] [id number] Michelle A Any-S mit [id number] Michelle A Any-Feroz h 04/20/2014 1 [place] [employer] Michelle A Any-S mit [id number] Michelle A Any-Feroz h 04/20/2014 2 [place] [facility] [id number] Michelle A Any-S [facility] [id number] Michelle A Any-Feroz h 04/20/2014 1 [place] [employer] Michelle A Any-S [facility] [id number] Michelle A Any-Feroz h 04/20/2014 2 [place] [facility] [id number] Michelle A Any-S [facility] [id number] Michelle A Any-Feroz h 04/27/2014 1 [place]IC[place] [employer] Michelle A Any-S [facility] [id number] Michelle A Any-Feroz h 04/27/2014 2 [place] [facility] [id number] Michelle A Any-S [facility] [id number] Michelle A Any-Feroz h 05/05/2014 1 MEDICARE B[place]: [facility] Michelle A Any-S [facility] [id number] Michelle A Any-Feroz h 05/05/2014 2 [place] [facility] [id number] Michelle A Any-S [facility] [id number] Michelle A Any-Feroz h Notes Date Note Type Note Provider Name and Address Organization Details Recorded Time 04/20/2014 text/html Left ulnar neuropathy involving the ulnar 2 digits. This apparently started when Michelle started using a different wheelchair with different armrests. History significant for MS Shweta Barronnum, OT [address] [facility], [place], [address], [facility] 04/20/2014 22:34:04 04/27/2014 text/html Has an apt this [facility] at [facility] that will do w/c assessment and she hopes be able to supply her AFO and the heelbo. In new w/c today Shweta Hylton, [address], [place], [address], [facility] 04/27/2014 14:13:57 OBGyn Episode No OBEpisode recorded.
--- OUTSIDE RECORDS SUMMARY | 2024-12-31 14:31 | XMS_ITS | Encounter Summary ---
Author Organization [employer] Address [address] [facility] 7t [place] [address] Care Team Providers Care Hvac Manager Name Role Phone Unavailable Primary Care Provider Unavailabl e Encounter Details Date Type Department Care Team (Late st Contact Info) Description 05/07/2024 Orders Only Brendon [facility] [address] [place] [address] Fletcher Leija Jr., DMD [address] [place] [address] Social History Tobacco Use Types Packs/Day Years [...]
--- OUTSIDE RECORDS SUMMARY | 2024-12-31 14:31 | XMS_ITS | Clinical Summary ---
Author Organization [facility] Address [address] [place] [address] Care Team Providers Care Concession Worker Name Role Phone Antonio Goodrich MD Primary [...] - 2023-2 5 season) 2024 Influenza Vaccine (Season Ended) 2025 RSV Immunization Adult Patie nts (1 - 1-dose 75+ series) 2029 HIB [...] Documents on File Type Date Recorded Patient Special Events Fundraiser Expl anation Health Care Decision (hx) 05/10/2017 AD ARTHUR DIRECTIVE Health Care Decision (hx) 05/10/2017 AD ARTHUR DIRECTIVE Health Care Decision (hx) 03/23/2017 AD ARTHUR DIRECTIVE Health Care Decision (hx) 03/23/2017 AD ARTHUR DIRECTIVE Care Teams Concession Worker Relationship Specialty Start Date End Date Antonio Goodrich MD [address] [place] [id number] PCP - General Internal Medicine 01/19/20
== END 2024-12-31 15:47 | disposition home or self-care (01) ==
LOC: HO.HUSH 14:03
PROVIDERS: PCP Family Medicine; Visit Provider Urology
DX: N39.0 Urinary tract infection, site not specified (principal)
CPT/HCPCS: 99213; G2211

== ENCOUNTER → 2024-12-31 14:03 | Outpatient (BNVA) | payer MEDICARE, MEDICAID, SELFPAY | PROVIDERS: PCP Family Medicine; Visit Provider Urology | DX: Z13.89 Encounter for screening for other disorder (principal) ==

== ENCOUNTER 2025-04-02 10:01 | Outpatient (AMB) | payer MEDICARE, MEDICAID, SELFPAY ==
--- OUTSIDE RECORDS SUMMARY | 2005-04-24 16:16 | XMS_ITS | Encounter Summary ---
Author Organization [facility] Address [address] [place] [address] Care Team Providers Care Scientific Laboratory Supervisor Name Role Phone Unavailable Primary Care Provider Unavailabl e Encounter Details Date Type Department Care Team (Late st Contact Info) Description 04/24/2005 16:16 EDT Hospital Encounter [facility] - Other [address] [place] [address] Mark Carlos MD [address] [place] [address] Social History Tobacco Use Types Packs/Day Years Used Date Smoking Tobacco: Never Assessed Comments Unknown Sex and Gender Information Value Date Recorded Sex Assigned at Not on file Legal Sex Female 18:36 EST Gender Identity Not on file Sexual Orientation Not on file documented as of this encounter Plan of Treatment Not on file documented as of this encounter Visit Diagnoses Not on filedocumented in this encounter
--- NOTE | 2025-04-02 10:02 | A.OFFVIS_ITS ---
Intake Visit Reasons: 6m follow up Intake Note: Patient is present for TELEHEALTH 6 MO FOLLOW UP Urology Medication:VITAMIN C,TRIMETHOPRIM,ESTRADIOL Antibiotic Allergy:PENICLLINS Blood Thinner:RIVAROXABAN Pharmacy Technician Trainee Required: No Accompanied by: Self / Same As Patient Allergies mercury (elemental) Allergy (Severe, Verified 04/09/25 04:38) Anaphylaxis Penicillins Allergy (Severe, Verified 04/09/25 04:38) Hives bupropion (From Wellbutrin) Allergy (Intermediate, Verified 04/09/25 04:38) Hives Iodinated Contrast Media (IV Contrast Dye) Allergy (Intermediate, Verified 04/09/25 04:38) Hives morphine Allergy (Intermediate, Verified 04/09/25 04:38) Hives metoclopramide (From Reglan) Adverse Reaction (Intermediate, Verified 04/09/25 04:38) Parkinson syndrome Medication List - Last Reconciled 04/02/25 by Gage Bass MD ascorbic acid (vitamin C) (Vitamin C) 1,000 mg PO BID 90 days baclofen 20 mg PO TID cholecalciferol (vitamin D3) 1 cap PO DAILY estradiol 0.01%(0.1mg/gram) pea-sized to urethra 3 times a week - around catheter 30 days fenofibrate 40 mg PO DAILY furosemide 40 mg PO DAILY gabapentin 300 mg PO TID levothyroxine 88 mcg PO DAILY@0600 lisinopril 5 mg PO DAILY metronidazole 0.75% 1 appl topical BID miconazole nitrate 100 mg vaginal BEDTIME 7 days modafinil (Provigil) 200 mg PO BID ljnjjjdcggsd-lfzevxop-wujhwj (Multivitamin 50 Plus tablet) 1 tab PO DAILY rivaroxaban (Xarelto) 10 mg PO DAILY silver sulfadiazine 1% 1 appl topical DAILY trimethoprim 100 mg PO DAILY 90 days HPI Comments Details: Michelle is a pleasant female. She is a patient of Dr. Jean Baptiste. She is seen for following urologic conditions - multiple sclerosis - botox with indwelling catheter - neurogenic bladder - recurring UTIs - urosepsis after upper tract manipulation Telemedicine evaluation 15 minute [facility] attempted Trimethoprim daily - check potassium for interaction Continue with vitamin-C Switched to [employer] [facility] - uses Duette catheter 18 Singaporean every 3 weeks - which appears to protect bladder - uses irrigation every other day Nephrolithiasis 03/05 Stent placed - left side 04/05 stent removal Had undergone procedure for stone - urosepsis presentation in February with ureteric stone Presented with urosepsis after 24 hrs with bladder spasms Culture enterococcus which was levaquin resistance On daptomycin for 4 weeks Responded well to daptomycin with complicated UTI However will require mid line if happens Neurogenic Bladder: Recurring urinary tract infection, bladder spasm Previously had Pseudomonas infection responsive to ciprofloxacin UTI appears to be decreasing with combination of Estrace, bladder irrigation - gram positive cocci Urinary retention initially found longstanding history. Diagnosed with multiple sclerosis approximately 15 years ago. Had been followed by Dr. Avina for many years Initially managed with clean intermittent catheterization Subsequently managed with indwelling Tran catheter Had been discussion of suprapubic tube placement however VNA nurses prevent this recurring uti 05/[address] Spencer and cystoscopy with removal of bladder stones - 12/01 cystoscopy Botox biopsy performed with chronic cystitis - 12/04 botox performed Botox Initial 03/01, 07/02, 10/31, 08/02, 05/04 200 units, 11/03 200 units Urine cultures - Pseudomonas fluoroquinolone resistant, citrobacter amp/cefazolin resistant Can only tolerate short course of fluroquinolones Has standing order for urine culture collection through VNA Previously used fosfomycin for catheter changes PFSH Medical History Bacteremia due to Enterococcus Recurrent UTI (urinary tract infection) Neurogenic bladder Urinary tract infection Wheelchair dependence Sacral decubitus ulcer Pulmonary emboli Cardiac arrest History of trigeminal neuralgia COVID-19 vaccine series completed Osteoporosis Neurogenic urinary bladder disorder NENO (obstructive sleep apnea) Parkinson's variant of multiple system atrophy Thyroid disease History of neurogenic bladder History of MRSA infection Hx of lymphoma Arthritis Back pain Hx pulmonary embolism DVT (deep venous thrombosis) Anemia Hiatal hernia Tran catheter in place Bladder stones Multiple sclerosis CVA (cerebral vascular accident) Myocardial infarction HTN (hypertension) Painful bladder spasm Surgical History Hx of hysterectomy Hx of lumpectomy Hx of vitrectomy History of intraocular lens implant Hx of adenoidectomy Hx of tonsillectomy Hx of laminectomy History of cystoscopy History of biopsy of bladder History of bladder surgery H/O colonoscopy Social History Household Members: None Housing: House Are you a primary caretaker resort to a significant other at home: No Do you presently have visiting nurse or other home services: Yes Patient Tobacco Use Status: Never used Tobacco Second Hand Smoke Exposure: No Advance Directives Date on File: 08/02/21 service: No Current occupational status: disabled Review of Systems Const All systems reviewed & are unremarkable except as noted in HPI and below Reports no additional complaints Resp Reports no additional complaints GI Reports no additional complaints Reports as per HPI Musc Reports no additional complaints Physical Exam Telemedicine evaluation Appropriate responses Regular breathing rate and rhythm HEENT Head: Yes normal to inspection Ears: hearing grossly normal bilaterally Eyes General: appearance normal, both eyes and all related structures Neck Neck: Yes normal visual inspection Chest Chest palpation & inspection: normal inspection of the chest Resp Effort & Inspection: normal respiratory effort and able to speak in complete sentences Telehealth Telehealth Telehealth Platform: [employer] Location of provider rendering services: practice address Location of patient: address on file Patient Identification confirmed using: Name, : Yes Telehealth method: voice only Patient verbally consented to treatment: Yes Patient verbally consented to billing insurance company: Yes Patient informed of any privacy concerns related to visit: Yes Minutes spent on Phone/Video with Pt.: 15 Assessment & Plan Assessment & Plan (1) Recurrent UTI (urinary tract infection): Code(s): N39.0 - Urinary tract infection, site not specified Category: Medical (2) Neurogenic bladder: Code(s): N31.9 - Neuromuscular dysfunction of bladder, unspecified Category: Medical Plan Add on demand fosfomycin Continue vitamin-C Refill estradiol Daily trimethoprim Medications: New fosfomycin tromethamine 3 grams PO Q3D 4 packets 1RF 4 doses N39.0 - Urinary tract infection, site not specified Changed From ascorbic acid (vitamin C) 1,000 mg PO BID 90 days 180 tabs 1RF To ascorbic acid (vitamin C) (Vitamin C) 1,000 mg PO ONCE 90 tabs 3RF 90 days From estradiol 0.01%(0.1mg/gram) pea-sized to urethra 3 times a week - around catheter 30 days 42.5 grams 2RF N31.9 - Neuromuscular dysfunction of bladder, unspecified, N36.2 - Urethral caruncle, N39.0 - Urinary tract infection, site not specified, N95.2 - Postmenopausal atrophic vaginitis To estradiol 0.01%(0.1mg/gram) pea-sized to urethra 3 times a week - around catheter 42.5 grams 2RF 30 days N31.9 - Neuromuscular dysfunction of bladder, unspecified, N36.2 - Urethral caruncle, N39.0 - Urinary tract infection, site not specified, N95.2 - Postmenopausal atrophic vaginitis Refilled trimethoprim 100 mg PO DAILY 90 tabs 1RF 90 days Patient Instructions: This note is constructed using voice recognition software. While every effort has been made to ensure accuracy telescope maintenance errors may have been included. Imaging studies, laboratory and physical exam results were discussed and reviewed in detail. No major barriers to patient understanding were identified. An opportunity to ask questions regarding the treatment plan was provided. All questions were answered. The patient expressed understanding and agreement with the above treatment plan. The patient is aware they should contact our office by phone for worsening of their current condition or the appearance of new urologic symptoms. Compliance is encouraged with any medications and followup testing that is ordered. It is a privilege to participate in the urologic care of your patient. If you have any questions or concerns regarding treatment for the above conditions, or other urologic issues, please do not hesitate to contact me. The office telephone contact is [phone]. Sincerely, Dr Gage Bass MD, [facility] - Urology Compassionate Specialist Care for the Genitourinary System Coding Level of Care Code Tele Est Pt Level 3 (92907) Complex EM visit Add On G2211 Diagnoses Recurrent UTI (urinary tract infection) N39.0 Neurogenic bladder N31.9
--- OUTSIDE RECORDS SUMMARY | 2025-04-02 11:24 | XMS_ITS | Clinical Summary ---
Author Organization [facility] ity Address [address] [place] [address] Care Team Providers Care Woodworking Machine Operator Name Role Phone Antonio Goodrich MD Primary [...] Vaccine ( - 2023-2 5 season) 2024 Depression Screening 08/13/2024 Influenza Vaccine (#1) 2025 RSV Immunization Adult Patie nts (1 [...] Documents on File Type Date Recorded Patient Analytical Lab Analyst Expl anation Health Care Decision (hx) 05/10/2017 AD ARTHUR DIRECTIVE Health Care Decision (hx) 05/10/2017 AD ARTHUR DIRECTIVE Health Care Decision (hx) 03/23/2017 AD ARTHUR DIRECTIVE Health Care Decision (hx) 03/23/2017 AD ARTHUR DIRECTIVE Care Teams Woodworking Machine Operator Relationship Specialty Start Date End Date Antonio Goodrich MD [address] [place] [phone] PCP - General Internal Medicine 01/19/20
--- OUTSIDE RECORDS SUMMARY | 2025-04-02 11:24 | XMS_ITS | Encounter Summary ---
Author Organization [employer] Address [address] [facility] 7 [place] [address] Care Team Providers Care Application Infrastructure Engineer Name Role Phone Unavailable Primary Care Provider [...]
== END 2025-04-02 12:40 | disposition home or self-care (01) ==
LOC: HO.HUSH 10:01
PROVIDERS: PCP Family Medicine; Visit Provider Urology
DX: N39.0 Urinary tract infection, site not specified (principal); N31.9 Neuromuscular dysfunction of bladder, unspecified
CPT/HCPCS: 99213; G2211

== ENCOUNTER 2025-04-09 04:14 | Inpatient (IN) | payer MEDICARE, MEDICAID, SELFPAY ==
--- OUTSIDE RECORDS SUMMARY | 2005-04-24 16:16 | XMS_ITS | Encounter Summary ---
Author Organization [facility] Address [address] [place] [address] Care Team Providers Care Scaling Machine Operator Name Role Phone Unavailable Primary Care Provider Unavailabl e Encounter Details Date Type Department Care Team (Late st Contact Info) Description 04/24/2005 16:16 EDT Hospital Encounter [facility] - Other [address] [place] [address] Mark Carlos MD [address] [place] [address] Social History Tobacco Use Types [...]
[2025-04-09] VITALS (26 sets, daily range): BP systolic 101–169; BP diastolic 35–82; PULSE 76–110; RESP 16–26; TEMP 37–39.6; O2SAT 93–98; BMI 35.3; BMI 35.8
--- NOTE | ~2025-04-09 | XR_ITS ---
CLINICAL HISTORY: Fever and sepsis Exam: AP portable chest x-ray. Comparison: July 12, 2023. Findings: Lungs are well inflated. Cardiac silhouette is mildly enlarged. Central interstitial markings are mildly prominent. No dense areas of consolidation. Question tiny left pleural effusion. Severe degenerative change of the left shoulder joint Surgical clips are seen within the right axilla. Impression: Enlargement of the cardiac silhouette with central interstitial prominence. This can be seen with edema or bronchitis. This document has been electronically signed by: Jean Peña MD on 04/09/2025 06:05:59
--- NOTE | ~2025-04-09 | CT_ITS ---
EXAMINATION: CT ABDOMEN AND PELVIS WITHOUT CONTRAST CLINICAL INFORMATION: UTI, rule out obstruction. COMPARISON: 03/18/2024 CT abdomen and pelvis without contrast. TECHNIQUE: Multidetector volumetric imaging was performed from the superior aspect of the liver through the pubic symphysis. Sagittal and coronal reformatted images were obtained on the technologist's workstation. This CT examination was performed using dose optimization techniques as appropriate, variously including the following: *Automated exposure control *Adjustment of mA and/or kV according to patient size (this includes techniques or standardized protocols for targeted exams where dose is matched to indication/reason for exam; i.e. extremities or head) *Use of iterative reconstruction technique FINDINGS: LUNG BASES: Imaged lung bases demonstrate mild dependent atelectasis and discoid type lower lobe atelectasis. Heart size is normal. There is no pericardial effusion. There is a small hiatus hernia at the GE junction. There are calcified granulomata present. LIVER, GALLBLADDER, AND BILIARY TREE: The unenhanced liver demonstrates mild diffuse fatty infiltration. There is no suspicious focal lesion. There is no intra or extrahepatic biliary dilatation. There is mild hepatomegaly present. The gallbladder is unremarkable with no evidence of radiopaque gallstones, gallbladder wall thickening, or obvious pericholecystic inflammatory changes. PANCREAS: Normal in appearance. There is a small calcification in the pancreatic head, nonspecific. SPLEEN: Normal unenhanced appearance. ADRENAL GLANDS: Unremarkable. KIDNEYS AND URETERS: Unenhanced RIGHT kidney demonstrates a 4 mm nonobstructing calculus in the upper pole region. There is no hydronephrosis or hydroureter. There is no gross renal mass or parenchymal lesion. Unenhanced LEFT kidney traits no calculus. There is no hydronephrosis or hydroureter. There is no gross renal mass or parenchymal lesion. BLADDER: TRAUMA Tran catheter balloon. No gross abnormality or wall thickening. GASTROINTESTINAL TRACT: The stomach shows a small to moderate size hiatus hernia. This otherwise normal. The duodenal sweep has a normal appearance. The small bowel is normal in caliber and course. A normal appendix is visualized. The imaged colon demonstrates no wall thickening, or inflammatory change. There is no obstruction. There is a redundant sigmoid colon noted. A portion of the ascending colon has been excluded from the examination. There is a temperature probe within the rectum. The rectum appears normal. ABDOMINAL WALL: Morbid obesity with pannus. A portion of the right abdominal wall is excluded from the exam. There are sequela of abdominal injections present. LYMPH NODES: No abnormal lymphadenopathy. VASCULAR: Mild calcific atherosclerotic changes are present in the aorta and iliofemoral vessels. There is no evidence of an abdominal aortic aneurysm. PELVIC VISCERA: There has been a hysterectomy. There are no adnexal masses. OSSEOUS STRUCTURES: There is osteopenia. There is severe degenerative spondylosis of the imaged spine. No suspicious bony lesion appreciated. There are mild to moderate degenerative changes in both hip joints. CT/CT abdomen pelvis wo IV con IMPRESSION: 1. There are no acute findings in the abdomen or pelvis. There is no urological obstruction. Ureters are nondilated. There is a 4 mm nonobstructing calculus in the right kidney upper pole region. 2. The urinary bladder is collapsed around a Tran catheter. 3. There is a small to moderate size hiatus hernia present. 4. There is mild diffuse fatty infiltration of the liver. 5. There are additional ancillary findings as discussed in the body of the report. Electronically signed by: James Matias MD 04/10/2025 09:20 AM EDT
[2025-04-09 04:53] LABS: MANUAL DIFF FLAG NO
[2025-04-09 04:54] LABS: Hematocrit 37.9 % (37.0-47.0); Hemoglobin 12.3 g/dl (12.0-16.0); Imm Gran Abs Auto 0.13 X10*3/uL (0.00-0.03); Imm Gran Pct Auto 0.6 % (0.0-0.4); Lymphocytes Absolute Auto 1.3 X10*3/uL (1.2-4.9); Mean Corpuscular HGB Conc 32.5 g/dl (31.0-35.0); Mean Corpuscular Hemoglobin 30.7 pg (27.0-33.0); Mean Corpuscular Volume 94.5 fL (80.0-98.0); NRBC Abs Auto 0.000 X10*3/uL (0.0-0.012); NRBC Pct Auto 0.0 /100WBC (0.0-0.2); Platelet Count 343 X10*3/uL (160-400); Red Blood Count 4.01 X10*6/uL (4.20-5.50); White Blood Count 21.0 X10*3/uL (4.8-10.8)
--- OUTSIDE RECORDS SUMMARY | 2025-04-09 04:54 | XMS_ITS | Encounter Summary ---
Author Organization [facility] Address [address] [place] [address] Phone Care Team Providers Care Care Manager Cna Name Role Phone Gage Bass MD Unavailable Lynda Pichardo PA-C Unavailable [phone] Kristen Jean Baptiste MD Primary Care Provider [phone] Encounter Details Date Type Department Care Team (Late st Contact Info) Description 02/20/2024 Procedure Pass [facility], Ct Scan - [address] [address] Social History Tobacco Use Types Packs/Day Years Used Date Smoking Tobacco: Never Smokeless Tobacco: Never Alcohol Use Standard Drinks/Week Comments Yes 0 (1 standard drink = 0.6 oz pur e alcohol) 3x/month beer/or shot Education Answer Date Recorded Are you interested in more education? Not on bela e 12/07/2022 Are you concerned about learning? Not on file 12/07/2022 No 12/07/2022 No 12/07/2022 Digital Access Answer Date Recorded No 01/02/2023 No 01/02/2023 Reliable internet access at home? Not on file 01/02/2023 Device with a working camera? 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 on file Not o n file documented as of this encounter Plan of Treatment Upcoming Encounters Date Type Department Care Team (Late st Contact Info) Description 04/10/2025 12:00 PM EDT [facility] [address] [place] [phone] Wilebrt Tavares RN [address] [place] [address] [email or web address] 04/14/2025 1:00 AM EDT Home Care Visit [facility] [address] [place] [phone] Wilbert Tavares RN [address] [place] [phone] [email or web address] 04/22/2025 Appointment [facility] [address] [place] [phone] Wilbert Tavares RN [address] [place] [phone] documented as of this encounter Visit Diagnoses Not on filedocumented in this encounter Additional Health Concerns Infection Onset Date Last Indicated Resolved Time CoV-Risk Comment:Per note documentation 02/20/2024 02/20/2024 7:46 PM EDT 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 02/20/2024 documented as of this encounter Care Teams Care Manager Cna Relationship Specialty Start Date End Date Kristen Jean Baptiste MD [address] [place] [address] [email or web address] PCP - General Family Medicine 11/03/21 Gage Bass MD Urology 05/07/20 Lynda Pichardo PA-C [address] [place] [address] [email or web address] Physician Job Setter Hematology 10/21/21 documented as of this encounter Additional Source Comments The information contained in this document represents components of the legal health record. It is not the complete legal health record.[facility]
--- OUTSIDE RECORDS SUMMARY | 2025-04-09 04:54 | XMS_ITS | Encounter Summary ---
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 Not o n file documented as of this encounter Plan of Treatment Upcoming Encounters Date Type Department Care Team (Late st Contact Info) Description 04/10/2025 12:00 PM EDT Home Care Visit [facility] [address] [place] [phone] Wilbert Tavares RN [address] [place] [phone] [email or web address] 04/14/2025 1:00 AM EDT Home Care Visit [facility] [address] [place] [phone] Wilbert Tavares RN [address] [place] [phone] [email or web address] 04/22/2025 Appointment [facility] [address] [place] [phone] Wilbert Tavares RN [address] [place] [phone] documented as of this encounter Visit Diagnoses Not on filedocumented in this encounter Additional Health Concerns Infection Onset Date Last Indicated Resolved Time CoV-Risk Comment:Per note documentation 02/20/2024 02/20/2024 7:46 PM EDT 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 02/20/2024 documented as of this encounter Care Teams Mission Assessment Specialist Relationship Specialty Start Date End Date Kristen Jean Baptiste MD [address] [place] [address] [email or web address] PCP - General Family Medicine 11/03/21 Gage Bass MD Urology 05/07/20 Lynda Pichardo PA-C [address] [place] [address] [email or web address] Physician Physical Education Specialist Hematology 10/21/21 documented as of this encounter Additional Source Comments The information contained in this document represents components of the legal health record. It is not the complete legal health record.[facility]
--- OUTSIDE RECORDS SUMMARY | 2025-04-09 04:54 | XMS_ITS | Encounter Summary ---
Author Organization [facility] Address [address] [facility] [address] [place] [address] Phone Care Team Providers Care Scarfer Name Role Phone Antonio Goodrich MD Unavailable [phone] Antonio Goodrich MD Unavailable [phone] Sharda Henning MD Unavailable Lavon Ace REPAIRER [employer] Unavailable [email or web address] Moody Hauser MD Unavailable Asher Alexander MD Unavailable Anselmo Sands MD Unavailable [phone] Juancarlos Mace MD Unavailable [phone] Antonio Goodrich MD Primary Care Provider [phone] Maria Del Carmen Rosas MD Primary Care Provider Maria Del Carmen Rosas MD Primary Care Provider [phone] Efrem Gomez NP Primary Care Provide r Maria Del Carmen Rosas MD Primary Care Provider Gage Bass MD Unavailable [phone] Maria Del Carmen Rosas MD Unavailable [phone] Lynda Pichardo PA-C Unavailable [phone] Kristen Jean Baptiste MD Primary Care Provider Aelyda Blake OT Unavailable [phone] Encounter Details Date Type Department Care Team (Late Contact Info) Description 05/14/2018 Procedure Pass [facility] Admitting Dept Virtual Department [address] [place] [phone] Social History Tobacco Use Types Packs/Day Years Used Date Smoking Tobacco: Never Smokeless Tobacco: Never Alcohol Use Standard Drinks/Week Comments No 0 (1 standard drink = 0.6 oz pur e alcohol) Comments Unknown Sex and Gender Information Value Date Recorded Sex Assigned at Female 09/28/2017 10:36 PM EST Legal Sex Female 6:29 PM EST Gender Identity Female 09/28/2017 10:36 PM EST Sexual Orientation Straight 09/28/2017 10 :36 PM EST 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 04/14/2025 1:00 AM EDT Home [facility] Visit [facility] [address] [place], [place] [phone] Wilbert Tavares RN [address] [place] [phone] 04/22/2025 Appointment [facility] [address] [place], [place] [phone] Wilbert Tavares RN [address] [place] [address] [email or web address] documented as of this encounter Visit Diagnoses Not on filedocumented in this encounter Additional Health Concerns Infection Onset Date Last Indicated Resolved Time MRSA Comment:Infection Loaded by the Load Infection Utility 09/15/2015 06/30/2020 09/27/2022 1:[address] CoV-Risk Comment:D/C per Brianna Taylor 11/22/2019 11/22/2019 11/24/2019 3:53 PM EDT Clearance-CoV Comment:For asymptomatic patients undergoing screening for CoV. In the absence of symptoms, no isolation for COVID-19 is indicated unless they are currently COVID-19 confirmed and tests are being performed as part of documentation of resolution of infection. Approved criteria for screening can be found on [employer]. 11/25/2019 11/25/2019 11/28/2019 1:24 AM E DT CoV-Risk 07/11/2023 07/11/2023 07/22/2023 1:22 AM EST CoV-Risk Comment:Per note documentation 02/20/2024 02/20/2024 7:46 PM EDT 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 02/20/2024 documented as of this encounter Care Teams Scarfer Relationship Specialty Start Date End Date Antonio Goodrich MD [address] [place] [address], [address] [place] [address] [email or web address] PCP - General Internal Medicine 07/09/17 11/07/18 Maria Del Carmen Rosas MD [address] [address] PCP - General Family Medicine 11/08/18 12/29/18 Maria Del Carmen Rosas MD [address] [address] [email or web address] PCP - General Family Medicine 12/30/18 07/23/19 Efrem Gomez NP [address] [address] PCP - General 07/24/19 10/26/19 Maria Del Carmen Rosas MD [address] [place] [phone] [email or web address] PCP - General Family Medicine 10/27/19 11/02/21 Kristen Jean Baptiste MD [address] [place] [address] [email or web address] PCP - General Family Medicine 11/03/21 Antonio Goodrich MD [address] [place] [phone] Insurance Assigned Provider 04/14/17 09/12/19 Antonio Goodrich MD [address] [place] [address] Historical LMR Provider 06/02/17 1 Sharda Henning MD [address] [place] [address] [email or web address] Historical LMR Provider 05/28/17 11/18/20 Lavon Ace, [facility]TONIO [facility] [address] [address] [email or web address] Historical LMR Provider 06/02/1708/20/21 Moody Hauser MD [address] [place] [address] [email or web address] Historical LMR Provider 06/02/17 08/20/21 Asher Alexander MD [address] [place] [address] [email or web address] Historical LMR Provider 06/02/17 1 Anselmo Sands MD 22 [facility], [address] [address] [email or web address] Historical LMR Provider 06/02/17 11/18/20 Juancarlos Mace MD [address] [place] [address] Historical LMR Provider 06/02/17 1 Gage Bass MD [address] [address] Urology 05/07/20 Maria Del Carmen Rosas MD [address] [place] [address] [email or web address] Insurance Assigned Provider 11/20/20 08/19/22 Lynda Pichardo PA-C [address] [place] [phone] [email or web address] Physician Towel Hemmer Hematology 10/21/21 Aleyda Blake, OT [address] [place] [address] [email or web address] Transitions Practice Representative 06/05/22 2 documented as of this encounter Additional Source Comments The information contained in this document represents components of the legal health record. It is not the complete legal health record.[facility]
--- OUTSIDE RECORDS SUMMARY | 2025-04-09 04:54 | XMS_ITS | Encounter Summary ---
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 Not o n file documented as of this encounter Plan of Treatment Upcoming Encounters Date Type Department Care Team (Late st Contact Info) Description 04/10/2025 12:00 PM EDT [facility] [address] [place] [phone] Wilbert Tavares RN [address] [place] [address] 04/14/2025 1:00 AM EDT Home Care Visit [facility] [address] [place] [phone] Wilbert Tavares RN [address] [place] [address] 04/22/2025 Appointment [facility] [address] [place] [phone] Wilbert Tavares RN [address] [place] [address] documented as of this encounter Visit Diagnoses Not on filedocumented in this encounter Additional Health Concerns Infection Onset Date Last Indicated Resolved Time CoV-Risk Comment:Per note documentation 02/20/2024 02/20/2024 7:46 PM EDT 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 02/20/2024 documented as of this encounter Care Teams Certified Nursing Assistant Instructor Relationship Specialty Start Date End Date Kristen Jean Baptiste MD [address] [place] [address] [email or web address] PCP - General Family Medicine 11/03/21 Gage Bass MD Urology 05/07/20 Lynda Pichardo PA-C [address] [place] [address] [email or web address] Physician Agency Service Representative Hematology 10/21/21 documented as of this encounter Additional Source Comments The information contained in this document represents components of the legal health record. It is not the complete legal health record.[facility]
--- OUTSIDE RECORDS SUMMARY | 2025-04-09 04:54 | XMS_ITS | Encounter Summary ---
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 Wish to be (Past 1 Month) No 02/24/2024 8:00 AM RACHELT Nicki Duncan RN 2. Non-Specific Active Suicidal Thoughts (Past 1 Month) No 02/24/2024 8:00 AM EDT Nicki Duncan RN 6. Suicidal Behavior (Lifetime) No 02/24/2024 8:00 AM EDT Nicki Duncan RN documented as of this encounter Plan of Treatment Upcoming Encounters Date Type Department Care Team (Late st Contact Info) Description 04/10/2025 12:00 PM EDT Home [facility] Visit [facility] [address] [place] [address] Wilbert Tavares RN [address] [place] [address] 04/14/2025 1:00 AM EDT Home [facility] [address] [place] [address] Wilbert Tavares RN [address] [place] [address] 04/22/2025 Appointment [facility] [address] [place] [phone] Wilbert Tavares RN [address] [place] [address] [place] [address] [email or web address] documented as of this encounter Visit Diagnoses Not on filedocumented in this encounter Additional Health Concerns Infection Onset Date Last Indicated Resolved Time 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 02/20/2024 documented as of this encounter Care Teams Steam Meter Reader Relationship Specialty Start Date End Date Kristen Jean Baptiste MD [address] [place] [address] [email or web address] PCP - General Family Medicine 11/03/21 Gage Bass MD Urology 05/07/20 Lynda Pichardo PA-C [address] [place] [address] [email or web address] Physician Home Sales Service Professional Hematology 10/21/21 documented as of this encounter Additional Source Comments The information contained in this document represents components of the legal health record. It is not the complete legal health record.[facility]
--- OUTSIDE RECORDS SUMMARY | 2025-04-09 04:54 | XMS_ITS | Encounter Summary ---
Author Organization [facility] Address [address] [facility] [address] [place] [address] Phone Care Team Providers Care Health Information Technologist Name Role Phone Antonio Goodrich MD Unavailable [phone] Antonio Goodrich MD Primary Care Provider [phone] Antonio Goodrich MD Unavailable [phone] Sharda Henning MD Unavailable Lavon Ace FOURTH HAND Unavailable pwit Moody Hauser MD Unavailable Asher Alexander MD Unavailable Anselmo Sands MD Unavailable [phone] Juancarlos Mace MD Unavailable [phone] Sharda Henning MD Primary Care Provider [phone] Antonio Goodrich MD Primary Care Provider [phone] Kelly Villarreal RN Unavailable [phone] Maria Del Carmen Rosas MD Primary Care Provider Maria Del Carmen Rosas MD Primary Care Provider [phone] Efrem Gomez NP Primary Care Provide r Maria Del Carmen Rosas MD Primary Care Provider [phone] Gage Bass MD Unavailable [phone] Maria Del Carmen Rosas MD Unavailable [phone] Lynda Pichardo PA-C Unavailable [phone] Kristen Jean Baptiste MD Primary Care Provider Aleyda Blake OT Unavailable [phone] Encounter Details Date Type Department Care Team (Latest Contact Info) Description 06/12/2017 Transcribe Orders [facility] Phlebotomy [address] [place] [address] José Miguel Calhoun MD [address] [facility], [address] [place] [address] [email or web address] Tropical phagedenic ulcer, unspecified ulcer stage (Primary Dx); Abscess of sacrum Social History Tobacco Use Types Packs/Day Years Used Date Smoking Tobacco: Never Assessed Comments Unknown Sex and Gender Information Value Date Recorded Sex Assigned at Female 09/28/2017 10:36 PM EST Legal Sex Female 6:29 PM EST Gender Identity Female 09/28/2017 10:36 PM EST Sexual Orientation Straight 09/28/2017 10 :36 PM EST documented as of this encounter Plan of Treatment Upcoming Encounters Date Type Department Care Team (Late st Contact Info) Description 04/10/2025 12:00 PM EDT Home Care Visit [facility] [address] [place] [phone] Wilbert Tavares RN [address] [place] [address] 04/14/2025 1:00 AM EDT Home Care Visit [facility] [address] [place] [phone] Wilbert Tavares RN [address] [place] [address] 04/22/2025 Appointment [facility] [address] [place] [address] Wilbert Tavares RN [address] [place] [address] [email or web address] documented as of this encounter Results * CPK (creatine kinase) (06/12/2017 4:10 PM EDT) Pathologist [facility] CREATINE KINASE 93 21 - 215 U/L [facility] Blood 06/12/2017 4:10 PM EDT 06/12/2017 7:01 PM EDT us José Miguel Calhoun MD LAB BLOOD ORDERABLES [facility] Result [address] [address] * (ABNORMAL) CBC and differential (06/12/2017 4:10 PM EDT) [facility] WBC 6.45 3.40 - 11.20 K/uL [facility] RBC 3.67(L) 3.80 - 4.80 M/uL [facility] HGB 11.4(L) 12.0 - 15.0 g/dL [facility] HCT 36.2 36.0 - 46.0 % [facility] PLT 362 130 - 400 K/uL [facility] MCV 98.6(H) 79.0 - 98.0 fL [facility] MCH 31.1 27.0 - 34.8 pg [facility] MCHC 31.5 31.5 - 36.0 g/dL [facility] RDW 13.9 10.8 - 14.6 % [facility] MPV 9.7 9.4 - 12.4 [facility] NRBC 0.00 /100 WBCs [facility] ABSOLUTE NRBC 0.00 K/uL [facility] DIFF METHOD Auto [facility] NEUTS 49.8 45.30 - 77.70 % [facility] LYMPHS 41.1(H) 12.30 - 39.70 % [facility] MONOS 6.4 4.10 - 12.80 % [facility] EOS 1.6 0 - 7.2 % [facility] BASOS 0.5 0 - 2.80 % [facility] Granulocytes, immature (%) 0.6 0.0 - 0.9 % [facility] ABSOLUTE NEUTS 3.22 1.40 - 7.70 K/uL [facility] ABSOLUTE LYMPHS 2.65 0.60 - 3.20 K/uL [facility] ABSOLUTE MONOS 0.41 0.11 - 0.59 K/uL [facility] ABSOLUTE EOS 0.10 0.01 - 0.50 K/uL [facility] ABSOLUTE BASOS 0.03 0.00 - 0.08 K/uL [facility] Granulocytes, immature 0.04 0.00 - 0.05 K/uL [facility] Blood 06/12/2017 4:10 PM EDT 06/12/2017 7:01 PM EDT us José Miguel Calhoun MD LAB BLOOD ORDERABLES Fi nal Result Performing Organization Address [facility] Co de Phone Number [address] [address] * Alanine aminotransferase (ALT) (06/12/2017 4:10 PM EDT) ALT 12 0 - 40 U/L [facility] Blood 06/12/2017 4:10 PM EDT 06/12/2017 7:01 PM EDT us José Miguel Calhoun MD LAB BLOOD ORDERABLES Fi nal Result Performing Organization Address [facility]/ZIP Co de Phone Number [address] [address] documented in this encounter Visit Diagnoses Diagnosis Tropical phagedenic ulcer, unspecified ulcer stage- Primary Abscess of sacrum documented in this encounter Additional Health Concerns Infection Onset Date Last Indicated Resolved Time MRSA Comment:Infection Loaded by the Load Infection Utility 09/15/2015 06/30/2020 09/27/2022 1:25 AM EST CoV-Risk Comment:D/C jose l Taylor 11/22/2019 11/22/2019 11/24/2019 3:53 PM EDT Clearance-CoV Comment:For asymptomatic patients undergoing screening for CoV. In the absence of symptoms, no isolation for COVID-19 is indicated unless they are currently COVID-19 confirmed and tests are being performed as part of documentation of resolution of infection. Approved criteria for screening can be found on [employer]. 11/25/2019 11/25/2019 11/28/2019 1 :24 AM EDT CoV-Risk 07/11/2023 07/11/2023 07/22/2023 1:22 AM EST CoV-Risk Comment:Per note documentation 02/20/2024 02/20/2024 7:46 PM EDT 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 02/20/2024 documented as of this encounter Care Teams Health Information Technologist Relationship Specialty Start Date End Date Antonio Goodrich MD [address] [place] [address] PCP - General 05/15/17 06/25/17 Sharda Henning MD [address] [place] [address] PCP - General Internal Medicine 06/26/17 07/08/17 Antonio Goodrich MD [address] [place] [address] PCP - General Internal Medicine 07/09/17 11/07/18 Maria Del Carmen Rosas MD [address] [place] [address] [address] PCP - General Family Medicine 11/08/18 12/29/18 Maria Del Carmen Rosas MD [address] [address] [email or web address] PCP - General Family Medicine 12/30/18 07/23/19 Efrem Gomez, JACOBO [address] [address] PCP - General 07/24/19 10/26/19 Maria Del Carmen Rosas MD [address] [address] [email or web address] PCP - General Family Medicine 10/27/19 11/02/21 Kristen Jean Baptiste MD [address] [place] [address] [email or web address] PCP - General Family Medicine 11/03/21 Antonio Goodrich MD [address] [place] [address] [email or web address] Insurance Assigned Provider 04/14/17 09/12/19 Antonio Goodrich MD [address] [place] [address] [email or web address] Historical LMR Provider 06/02/17 1 Sharda Henning MD [address] [place] [address] [email or web address] Historical LMR Provider 05/28/17 11/18/20 Lavon Ace, ANTONIO [address] [address] [email or web address] Historical LMR Provider 06/02/1708/20/21 Moody Hauser MD 22 [place] [address] [email or web address] Historical LMR Provider 06/02/17 08/20/21 Asher Alexander MD [address] [place] [address] [email or web address] Historical LMR Provider 06/02/17 1 Anselmo Sands MD [address] [address] [email or web address] Historical LMR Provider 06/02/17 11/18/20 Juancarlos Mace MD 22 [place] [address] Historical LMR Provider 06/02/17 1 Kelly Villarreal, RN [address] [place] [address] [email or web address] Event Services Manager 11/16/17 12/02/17 Gage Bass MD [address] [address] Urology 05/07/20 Maria Del Carmen Rosas MD [address] [address] [email or web address] Insurance Assigned Provider 11/20/20 08/19/22 Lynda Pichardo PA-C [address] [place] [address] Physician Photovoltaic Installer Hematology 10/21/21 Aleyda Blake, OT [address] [place] [address] [email or web address] Transitions Event Services Manager 06/05/22 2 documented as of this encounter Additional Source Comments The information contained in this document represents components of the legal health record. It is not the complete legal health record.[facility]
--- OUTSIDE RECORDS SUMMARY | 2025-04-09 04:54 | XMS_ITS | Encounter Summary ---
Author Organization [facility] Address [address] 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 Not on file Not o n file documented as of this encounter Plan of Treatment Upcoming Encounters Date Type Department Care Team (Late st Contact Info) Description 04/10/2025 12:00 PM EDT Home [facility] [address] [place] [phone] Wilbert Tavares RN [address] [place] [address] [email or web address] 04/14/2025 1:00 AM EDT Home Care Visit [facility] [address] [place] [phone] Wilbert Tavares RN [address] [place] [address] [email or web address] 04/22/2025 Appointment [facility] [address] [place] [phone] Wilbert Tavares RN [address] [place] [address] documented as of this encounter Visit Diagnoses Not on filedocumented in this encounter Additional Health Concerns Infection Onset Date Last Indicated Resolved Time CoV-Risk Comment:Per note documentation 02/20/2024 02/20/2024 7:46 PM EDT 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 02/20/2024 documented as of this encounter Care Teams Floriculture Professor Relationship Specialty Start Date End Date Kristen Jean Baptiste MD [address] [place] [address] [email or web address] PCP - General Family Medicine 11/03/21 Gage Bass MD Urology 05/07/20 Lynda Pichardo PA-C [address] [place] [address] [email or web address] Physician Single Fold Machine Operator Hematology 10/21/21 documented as of this encounter Additional Source Comments The information contained in this document represents components of the legal health record. It is not the complete legal health record.[facility]
--- OUTSIDE RECORDS SUMMARY | 2025-04-09 04:55 | XMS_ITS | Encounter Summary ---
Author Organization [facility] Address [address] [facility] [address] [place] [address] Phone Care Team Providers Care House Player Name Role Phone Antonio Goodrich MD Unavailable [phone] Antonio Goodrich MD Unavailable Sharda Henning MD Unavailable Lavon Ace FORMULA MIXER Unavailable [email or web address] Moody Hauser MD Unavailable Asher Alexander MD Unavailable Anselmo Sands MD Unavailable [phone] Juancarlos Mace MD Unavailable [phone] Antonio Goodrich MD Primary Care Provider [phone] Maria Del Carmen Rosas MD Primary Care Provider Maria Del Carmen Rosas MD Primary Care Provider [phone] Efrem Gomez NP Primary Care Provide r Maria Del Carmen Rosas MD Primary Care Provider Gage Bass MD Unavailable Maria Del Carmen Rosas MD Unavailable [phone] Lynda Pichardo PA-C Unavailable [phone] Kristen Jean Baptiste MD Primary Care Provider [phone] Aleyda Blake OT Unavailable [phone] Encounter Details Date Type Department Care Team (Late st Contact Info) Description 12/20/2017 Procedure Pass [facility], [address] [place] [address] Social History Tobacco Use Types Packs/Day Years [...] 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 Not on file Not on file documented as of this encounter Last Filed Vital Signs Vital Sign Reading Time Taken Comments Blood Pressure - - Pulse - - Temperature - - Respiratory Rate - - Oxygen Saturation - - Inhaled Oxygen Concentration - - Weight 79.4 kg (175 lb) 12/22/2017 1:10 PM EDT Height 152.4 cm (5') 12/22/2017 1:10 PM EDT Body Mass Index 34.18 12/22/2017 1:10 PM EDT documented in this encounter Plan of Treatment Upcoming Encounters Date Type Department Care Team (Late st Contact Info) Description 04/10/2025 12:00 PM EDT [facility] [address] [place] [phone] Wilbert Tavares, RN [address] [place] [address] 04/14/2025 1:00 AM EDT Home Care Visit [facility] [address] [place], [place] [phone] Wilbert Tavares RN [address] [place] [address] 04/22/2025 Appointment [facility] [address] [place], [place] [phone] Wilbert Tavares RN [address] [place] [address] documented as of this encounter Visit Diagnoses Not on filedocumented in this encounter Additional Health Concerns Infection Onset Date Last Indicated Resolved Time MRSA Comment:Infection Loaded by the Load Infection Utility 09/15/2015 06/30/2020 09/27/2022 1:[address] CoV-Risk Comment:D/C per L Brandon 11/22/2019 11/22/2019 11/24/2019 3:53 PM EDT Clearance-CoV [...] documented as of this encounter Care Teams House Player Relationship Specialty Start Date End Date Antonio Goodrich MD [address] [place] [address], [address] [place] [address] PCP - General Internal Medicine 07/09/17 11/07/18 Maria Del Carmen Rosas MD [address] [address] [email or web address] PCP - General Family Medicine 11/08/18 12/29/18 Maria Del Carmen Rosas MD [address] [address] [email or web address] PCP - General Family Medicine 12/30/18 07/23/19 Efrem Gomez, JACOBO [address] [place] [address] PCP - General 07/24/19 10/26/19 Maria Del Carmen Rosas MD [address] [place] [address] [email or web address] PCP - General Family Medicine 10/27/19 11/02/21 Kristen Jean Baptiste MD [facility] [place] [address] [email or web address] PCP - General Family Medicine 11/03/21 Antonio Goodrich MD [address] [place] [address] Insurance Assigned Provider 04/14/17 09/12/19 Antonio Goodrich MD [address] [place] [address] Historical LMR Provider 06/02/17 1 Sharda Henning MD [address] [place] [address], [place] [address] [email or web address] Historical LMR Provider 05/28/17 11/18/20 Lavon Ace CNP [address] [place] [address] [email or web address] Historical LMR Provider 06/02/1708/20/21 Moody Hauser MD [address] [place] [address] [email or web address] Historical LMR Provider 06/02/17 08/20/21 Asher Alexander MD [address] [place] [address] [email or web address] Historical LMR Provider 06/02/17 1 Anselmo Sands MD [address] [facility] [address] [place] [address] [email or web address] Historical LMR Provider 06/02/17 11/18/20 Juancarlos Mace MD 22 [place] [address] Historical LMR Provider 06/02/17 1 Gage Bass MD [address] [facility] [address] [place] [address] Urology 05/07/20 Maria Del Carmen Rosas MD [address] [facility] [address] [place] [address] [email or web address] Insurance Assigned Provider 11/20/20 08/19/22 Lynda Pichardo PA-C [address] [place] [address] [email or web address] Physician Shorthand Teacher Hematology 10/21/21 Aleyda Blake, OT [address] [place] [address] [email or web address] Transitions Investment Accounting Clerk 06/05/22 2 documented as of this encounter Additional Source Comments The information contained in this document represents components of the legal health record. It is not the complete legal health record.[facility]
--- OUTSIDE RECORDS SUMMARY | 2025-04-09 04:55 | XMS_ITS | Encounter Summary ---
Author Organization [facility] Address [address] [facility] [address] [place] [address] Phone Care Team Providers Care Guard Chief Name Role Phone Antonio Goodrich MD Unavailable [phone] Antonio Goodrich MD Unavailable Sharda Henning MD Unavailable Lavon Ace CORRECTION OFFICER Unavailable [email or web address] Moody Hauser MD Unavailable Asher Alexander MD Unavailable Anselmo Sands MD Unavailable [phone] Juancarlos Mace MD Unavailable [phone] Antonio Goodrich MD Primary Care Provider [phone] Maria Del Carmen Rosas MD Primary Care Provider Maria Del Carmen Rosas MD Primary Care Provider [phone] Efrem Gomez NP Primary Care Provide r Maria Del Carmen Rosas MD Primary Care Provider [phone] Gage Bass MD Unavailable Maria Del Carmen Rosas MD Unavailable [phone] Lynda Pichardo PA-C Unavailable [phone] Kristen Jean Baptiste MD Primary Care Provider Aleyda Blake OT Unavailable [phone] Reason for Referral * MRI/CAT Scan - Closed Specialty Diagnoses / Procedures Referred By Contac t Referred To Contact Radiology Diagnoses Impingement syndrome of left shoulder Procedures MRI Shoulder (Left) Rafy Vásquez MD Phone: tel: fax: [email or web address] Referral ID Status Reason Start Date Expiration Date Visits Re quested Visits Authorized [id number] Closed 12/20/2017 12/20/2018 1 1 Encounter Details Date Type Department Care Team (Late st Contact Info) Description 12/20/2017 Ancillary Orders Virtual Department [address] [place] [phone] Rafy Vásquez MD [address] [place] [phone] 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 Not on file Not on file documented as of this encounter Plan of Treatment Upcoming Encounters Date Type Department Care Team (Late st Contact Info) Description 04/10/2025 12:00 PM EDT [facility] [address] [place] [address] Wilbert Tavares, PAUL [address] [place] [address] 04/14/2025 1:00 AM EDT [facility] [address] [place] [address] Wilbert Tavares, PAUL [address] [place] [address] 04/22/2025 Appointment [facility] [address] [place] [address] Wilbert Tavares RN [address] [place] [address] documented as of this encounter Results * MRI SHOULDER WITHOUT CONTRAST (LEFT) (12/25/2017 12:25 PM EDT) Anatomical Region Laterality Modality Shoulder Left Magnetic Resonan ce 12/25/2017 1:15 PM EDT Impressions 12/25/2017 1:37 PM EDT 1. 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 Moderate degenerative change and probable synovitis at the acromioclavicular joint which could predispose to impingement. 2. No evidence of full-thickness rotator cuff tendon tear. Questionable tiny articular surface tears of the distal supraspinatus tendon. Findings consistent with tendinosis of the supraspinatus and subscapularis tendons. 3. Multilocular cystic mass in the subscapular region which may be a ganglion. POS - [id number] Narrative 12/25/2017 1:37 PM EDT HISTORY: Pain and limited range of motion, history of lymphoma. COMPARISON: None. TECHNIQUE: Exam performed on a 1.5 Jessie high-field MRI scanner. Axial T1 and proton density with fat suppression, oblique coronal proton density with fat suppression and T2 with fat suppression, oblique sagittal T1 and T2 with fat suppression sequences were obtained. MRI SHOULDER FINDINGS: Artifact degrades the coronal oblique T2 and proton density fat sat and sagittal T2 fat-sat sequences. Rotator cuff tendons: Mild increased signal within the supraspinatus tendon. Supraspinatus tendon appears mildly thickened. No evidence of full thickness rotator cuff tendon tears. Difficult to exclude tiny articular surface partial-thickness tears of the distal supraspinous tendon. No convincing evidence of partial thickness rotator cuff tendon tears. Mild increased signal within the distal subscapularis tendon. Biceps tendon: Intact. Rotator cuff muscles: Mild atrophy of the rotator cuff muscles. Glenoid labrum: Labrum appears small, particularly anteriorly, likely due to degeneration. Bursae: No significant fluid in the subacromial/subdeltoid bursa. Joints: Evidence of marginal spurring and narrowing at the glenohumeral joint and narrowing of the joint space. Edema within the glenoid may be reactive. There is a glenohumeral joint effusion. Moderate hypertrophic change at the acromioclavicular joint. Small amount of fluid within the AC joint Bones: No evidence of fractures. No suspicious marrow signal abnormalities. Cystic change in the lateral aspect of the humeral head. Other soft tissues: Multilocular cystic masslike structure in the sub-scapular space adjacent to the subscapular tendon measuring roughly 3.1 cm x 2.1 cm.. This may communicate with the joint. Procedure Note Agustin Huntley MD - 12/25/2017 HISTORY: Pain and limited range of motion, history of lymphoma. COMPARISON: None. TECHNIQUE: Exam performed on a 1.5 Jessie high-field MRI scanner. Axial T1and proton density with fat suppression, oblique coronal proton densitywith fat suppression and T2 with fat suppression, oblique sagittal T1 andT2 with fat suppression sequences were obtained. MRI SHOULDER FINDINGS: Artifact degrades the coronal oblique T2 and proton density fat sat andsagittal T2 fat-sat sequences. Rotator cuff tendons: Mild increased signal within the supraspinatustendon. Supraspinatus tendon appears mildly thickened. No evidence offull thickness rotator cuff tendon tears. Difficult to exclude tinyarticular surface partial-thickness tears of the distal supraspinoustendon. No convincing evidence of partial thickness rotator cuff tendontears. Mild increased signal within the distal subscapularis tendon. Biceps tendon: Intact. Rotator cuff muscles: Mild atrophy of the rotator cuff muscles. Glenoid labrum: Labrum appears small, particularly anteriorly, likely dueto degeneration. Bursae: No significant fluid in the subacromial/subdeltoid bursa. Joints: Evidence of marginal spurring and narrowing at the glenohumeraljoint and narrowing of the joint space. Edema within the glenoid may bereactive. There is a glenohumeral joint effusion. Moderate hypertrophicchange at the acromioclavicular joint. Small amount of fluid within theAC joint Bones: No evidence of fractures. No suspicious marrow signalabnormalities. Cystic change in the lateral aspect of the humeral head. Other soft tissues: Multilocular cystic masslike structure in thesub-scapular space adjacent to the subscapular tendon measuring roughly3.1 cm x 2.1 cm.. This may communicate with the joint. IMPRESSION: 1. Evidence of fairly prominent osteoarthritic change at the glenohumeraljoint. Moderate degenerative change and probable synovitis at theacromioclavicular joint which could predispose to impingement. 2. No evidence of full-thickness rotator cuff tendon tear. Questionabletiny articular surface tears of the distal supraspinatus tendon. Findingsconsistent with tendinosis of the supraspinatus and subscapularistendons. 3. Multilocular cystic mass in the subscapular region which may be aganglion. POS - [id number] Rafy Vásquez MD IM MR EXTREMITY Final Result documented in this encounter Visit Diagnoses Diagnosis Impingement syndrome of left shoulder Impingement syndrome of left shoulder documented in this encounter Additional Health Concerns Infection Onset Date Last Indicated Resolved Time MRSA Comment:Infection Loaded by the Load Infection Utility 09/15/2015 06/30/2020 09/27/2022 1:[address] CoV-Risk Comment:D/C jose l Taylor 11/22/2019 11/22/2019 [...] documented as of this encounter Care Teams Guard Chief Relationship Specialty Start Date End Date Antonio Goodrich MD [address] [place] [address], [address] [place] [address] [email or web address] PCP - General Internal Medicine 07/09/17 11/07/18 Maria Del Carmen Rosas MD [address] [place] [address] PCP - General Family Medicine 11/08/18 12/29/18 Maria Del Carmen Rosas MD [address] [place] [address] PCP - General Family Medicine 12/30/18 07/23/19 Efrem Gomez NP [address] [place] [address] PCP - General 07/24/19 10/26/19 Maria Del Carmen Rosas MD [address] [place] [address] PCP - General Family Medicine 10/27/19 11/02/21 Kristen Jean Baptiste MD [address] [place] [address] [email or web address] PCP - General Family Medicine 11/03/21 Antonio Goodrich MD [address] [place] [address] [email or web address] Insurance Assigned Provider 04/14/17 09/12/19 Antonio Goodrich MD [address] [place] [address] [email or web address] Historical LMR Provider 06/02/17 1 Sharda Henning MD [address] [place] [address] [email or web address] Historical LMR Provider 05/28/17 11/18/20 Lavon Ace, ANTONIO [address] [address] [email or web address] Historical LMR Provider 06/02/1708/20/21 Moody Hauser MD [address] [place] [address] [email or web address] Historical LMR Provider 06/02/17 08/20/21 Asher Alexander MD [address] [place] [address] [email or web address] Historical LMR Provider 06/02/17 1 Anselmo Sands MD 22 [facility] [address] [place] [address] [email or web address] Historical LMR Provider 06/02/17 11/18/20 Juancarlos Mace MD [address] [place] [address] Historical LMR Provider 06/02/17 1 Gage Bass MD 15 [facility] [address] [place] [address] Urology 05/07/20 Maria Del Carmen Rosas MD 15 [facility] [address] [place] [address] [email or web address] Insurance Assigned Provider 11/20/20 08/19/22 Lynda Pichardo PA-C [address] [place] [address] Physician Sap Basis Architect Hematology 10/21/21 Aleyda Blake, OT [address] [place] [address] Transitions Knuckle Bender 06/05/22 2 documented as of this encounter Additional Source Comments The information contained in this document represents components of the legal health record. It is not the complete legal health record.[facility]
--- OUTSIDE RECORDS SUMMARY | 2025-04-09 04:55 | XMS_ITS | Encounter Summary ---
Author Organization [facility] Address [address] [place] [address] Phone Care Team Providers Care Digital Content Coordinator Name Role Phone Gage Bass MD Unavailable Lynda Pichardo PA-C Unavailable [phone] Coirnna Jean Baptiste MD Primary Care Provider Encounter Details Date Type Department Care Team (Late st Contact Info) Description 03/20/2025 Procedure Pass [facility], Ct Scan - [address] [address] Social History Tobacco Use Types Packs/Day Years Used Date Smoking Tobacco: Never Smokeless Tobacco: Never Alcohol Use Standard Drinks/Week Comments Yes 0 (1 standard drink = 0.6 oz pur e alcohol) 3x/month beer/or shot Home Health Assessment: Transportation Answer Date Recorded Lack of Transportation (Medical) No 03/26/2024 Lack of Transportation (Non-Medical) Yes 03/26/2024 Patient Unable or Declines to Respond No 03/26/2024 Education Answer Date Recorded Are you interested in more education? Not on bela e 12/07/2022 Are you concerned about learning? Not on file 12/07/2022 No 12/07/2022 No 12/07/2022 Food Answer Date Recorded Within the past 6 months we worried whether our food would run out before we got money to buy more. Never True 03/20/2025 Within the past 6 months the food we bought just didn't last and we didn't have enough money to get more. Never True Residential Stability Answer Date Recor ded What is your housing situation today? I have seth sing 03/20/2025 How many times have you move d in the past 12 months? Zero (I did not move) 03/20/2025 Paying for Meds Answer Date Recorded Do you have trouble paying for medicines? No 03/20/2025 Paying Utility Bills Answer Date Record ed Do you have trouble paying your heating or elect ricity bill? No 03/20/2025 Transportation Answer Date Recorded Has the lack of transportati on kept you from medical appointments or from getting medications? No 03/20/2025 Digital Access Answer Date Recorded No 03/20/2025 Yes 03/20/2025 Do you have reliable internet access at home? Ye s 03/20/2025 Do you have a device (e.g., phone, tablet, computer) with a working camera? Yes 03/20/2025 Intimate Partner Violence Answer Date R ecorded Are you denied basic needs s uch as food, clothing, or medical care? No 03/20/2025 In the past 12 months have y ou been in a relationship with a person who hurts, threatens, or tries to control you? No 03/20/2025 Are you denied basic needs s uch as food, clothing, or medical care? No 03/20/2025 In the past 12 months have y ou been in a relationship with a person who hurts, threatens, or tries to control you? No 03/20/2025 Comments Unknown Sex and Gender Information Value [...] Date of Assessment Author No Risk Indicated 03/20/2025 1:36 PM EDT Payton Tian RN * Gila Suicide Severity Rating Scale (Screener/Recent Self-Report) Question Answer Date of Assessment Author 1. Wish to be (Past 1 Month) No 03/20/2025 1:36 PM EDT Payton Tian RN 2. Non-Specific Active Suici david Thoughts (Past 1 Month) No 03/20/2025 1:36 PM EDT Payton Tian RN 6. Suicidal Behavior (Lifetime) No 1:36 PM EDT Payton Tian RN documented as of this encounter Plan of Treatment Upcoming Encounters Date Type Department Care Team (Late st Contact Info) Description 04/10/2025 12:00 PM EDT [facility] [address] [place] [phone] Wilbert Tavares RN [address] [place] [address] [email or web address] 04/14/2025 1:00 AM EDT Home [facility] [address] [place] [phone] Wilbert Tavares RN [address] [place] [address] 04/22/2025 Appointment [facility] [address] [place] [address] Wilbert Tavares RN [address] [place] [address] documented as of this encounter Visit Diagnoses Not on filedocumented in this encounter Additional Health Concerns Infection Onset Date Last Indicated Resolved Time 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 02/20/2024 documented as of this encounter Care Teams Digital Content Coordinator Relationship Specialty Start Date End Date Corinna Jean Baptiste [facility] [place] [address] [email or web address] PCP - General Family Medicine 11/03/21 Gage Bass MD Urology 05/07/20 Lynda Pichardo PA-C [address] [place] [address] [email or web address] Physician Candle Wrapper Hematology 10/21/21 documented as of this encounter Additional Source Comments The information contained in this document represents components of the legal health record. It is not the complete legal health record.[facility]
--- OUTSIDE RECORDS SUMMARY | 2025-04-09 04:55 | XMS_ITS | Clinical Summary ---
Author Organization [facility] Address [address] [place] [address] Care Team Providers Care Director Of Content Marketing Name Role Phone Unavailable Primary Care Provider Unavailabl e Social History Tobacco Use Types Packs/Day Years Used Date Smoking Tobacco: Never Assessed Comments Unknown Sex and Gender Information Value Date Recorded Sex Assigned at Not on file Legal Sex Female 18:36 EST Gender Identity Not on file Sexual Orientation Not on file Plan of Treatment Health Maintenance Due Date Last Done Comments Hepatitis C Screen 1955 Fall Risk Screening 2019 COVID-19 Vaccine (2023- season) 2024 RSV Immunization ( o r 60+ Years) (1 - 1-dose 75+ series) 2029
--- OUTSIDE RECORDS SUMMARY | 2025-04-09 04:55 | XMS_ITS | Encounter Summary ---
Author Organization [facility] Address [address] [facility] [address] [place] [address] Phone Care Team Providers Care Traffic Operations Manager Name Role Phone Antonio Goodrich MD Unavailable [phone] Antonio Goodrich MD Unavailable Sharda Henning MD Unavailable Lavon Ace MILL CONTROL OPERATOR Unavailable [email or web address] Moody Hauser MD Unavailable Asher Alexander MD Unavailable Anselmo Sands MD Unavailable [phone] Juancarlos Mace MD Unavailable [phone] Antonio Goodrich MD Primary Care Provider [phone] Maria Del Carmen Rosas MD Primary Care Provider [phone] Maria Del Carmen Rosas MD Primary Care Provider [phone] Efrem Gomez NP Primary Care Provide r Maria Del Carmen Rosas MD Primary Care Provider Gage Bass MD Unavailable Maria Del Carmen Rosas MD Unavailable [phone] Lynda Pichardo PA-C Unavailable [phone] Kristen Jean Baptiste MD Primary Care Provider Aleyda Blake OT Unavailable [phone] Encounter Details Date Type Department Care Team (Late Contact Info) Description 10/01/2018 Procedure Pass [facility], [address] [address] Social History Tobacco Use Types Packs/Day Years [...] Date 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 End 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 on 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 on 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 Not on file Not on file documented as of this encounter Plan of Treatment Upcoming Encounters Date Type Department Care Team (Late Contact Info) Description 04/10/2025 12:00 PM EDT [facility] [address] [place] [address] Wilbert Tavares RN [address] [place] [address] [email or web address] 04/14/2025 1:00 AM EDT [facility] [address] [place] [address] Wilbert Tavares RN [address] [place] [address] 04/22/2025 [facility] [address] [place] [address] Wilbert Tavares RN [address] [place] [address] [email or web address] documented as of this encounter Visit Diagnoses [...] documented as of this encounter Care Teams Traffic Operations Manager Relationship Specialty Start Date End Date Antonio Goodrich MD [address] [place] [address], 2nd [place] [address] PCP - General Internal Medicine 07/09/17 11/07/18 Maria Del Carmen Rosas MD [address] [address] PCP - General Family Medicine 11/08/18 12/29/18 Maria Del Carmen Rosas MD [address] [address] [email or web address] PCP - General Family Medicine 12/30/18 07/23/19 Efrem Gomez NP [address] [address] PCP - General 07/24/19 10/26/19 Maria Del Carmen Rosas MD [address] [place] [address] [email or web address] PCP - General Family Medicine 10/27/19 11/02/21 Kristen Jean Baptiste MD [address] [place] [address] [email or web address] PCP - General Family Medicine 11/03/21 Antonio Goodrich MD [address] [place] [address] Insurance Assigned Provider 04/14/17 09/12/19 Antonio Goodrich MD [address] [place] [address] Historical LMR Provider 06/02/17 1 Sharda Henning MD [address] [place] [address] [email or web address] Historical LMR Provider 05/28/17 11/18/20 Lavon Ace, MILL CONTROL OPERATOR [facility] [address] [address] [email or web address] Historical LMR Provider 06/02/1708/20/21 Moody Hauser MD [address] [place] [address] [email or web address] Historical LMR Provider 06/02/17 08/20/21 Asher Alexander MD [address] [place] [address] [email or web address] Historical LMR Provider 06/02/17 1 Anselmo Sands MD 22 [facility], [address] [address] [email or web address] Historical LMR Provider 06/02/17 11/18/20 Juancarlos Mace MD [address] [place] [address] Historical LMR Provider 06/02/17 1 Gage Bass MD [address] [address] Urology 05/07/20 Maria Del Carmen Rosas MD [address] [place] [address] [email or web address] Insurance Assigned Provider 11/20/20 08/19/22 Lynda Pichardo PA-C [address] [place] [address] [email or web address] Physician Health Care Analyst Hematology 10/21/21 Aleyda Blake, OT [address] [place] [address] [email or web address] Transitions Senior Datastage Developer 06/05/22 2 documented as of this encounter Additional Source Comments The information contained in this document represents components of the legal health record. It is not the complete legal health record.[facility]
--- OUTSIDE RECORDS SUMMARY | 2025-04-09 04:55 | XMS_ITS | Encounter Summary ---
Author Organization [facility] Address [address] [facility] [address] [place] [address] Phone Care Team Providers Care Editor Map Name Role Phone Antonio Goodrich MD Unavailable Antonio Goodrich MD Unavailable [phone] Sharda Henning MD Unavailable Lavon Ace GROCERY MANAGER Unavailable pwit [email or web address] Moody Hauser MD Unavailable Asher Alexander MD Unavailable Anselmo Sands MD Unavailable [phone] Juancarlos Mace MD Unavailable [phone] Antonio Goodrich MD Primary Care Provider [phone] Maria Del Carmen Rosas MD Primary Care Provider [phone] Maria Del Carmen Rosas MD Primary Care Provider [phone] Efrem Gomez NP Primary Care Provide r Maria Del Carmen Rosas MD Primary Care Provider [phone] Gage Bass MD Unavailable Maria Del Carmen Rosas MD Unavailable [phone] Lynda Pichardo PA-C Unavailable [phone] Kristen Jean Baptiste MD Primary Care Provider [phone] Aleyda Blake OT Unavailable Encounter Details Date Type Department Care Team (Latest Contact Info) Description 12/10/2017 Transcribe Orders [facility] Specimen Processing 30 [place] [address] [place] [address] [phone] [email or web address] UTI (urinary tract infection), uncomplicated (Primary Dx) Social History Tobacco Use Types Packs/Day Years [...] Start 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 Not on file Not on file documented as of this encounter Plan of Treatment Upcoming Encounters Date Type Department Care Team (Late st Contact Info) Description 04/10/2025 12:00 PM EDT Home Care Visit [facility] [address] [place], [place] [phone] Wilbert Tavares RN [address] [place] [address] 04/14/2025 1:00 AM EDT Home Care Visit [facility] [address] [place] [phone] Wilbert Tavares, RN [address] [place] [address] 04/22/2025 [address]ointment [facility] [address] [place] [address] Wilbert Tavares, RN [address] [place] [address] documented as of this encounter Results * (ABNORMAL) Urinalysis with sediment (12/10/2017 4:30 PM EDT) WBC TOO NUMEROUS TO COUNT(A) NONE SEEN /hpf [facility] RBC 21-49(A) NONE SEEN /hpf [facility] URINE EPITHELIAL 0-4(A) NONE SEEN [facility] MUCUS 1+(A) NONE SEEN /hpf [facility] BACTERIA 3+(A) NONE SEEN [facility] COLOR Marshall(A) Yellow [facility] CLARITY HAZY [facility] GLUCOSE Trace(A) Negative [facility] BILI 1+(A) Negative [facility] KETONES Negative Negative [facility] SPECIFIC GRAVITY 1.020 1.005 - 1.030 [facility] BLOOD 2+(A) Negative [facility] PH 7.0 5.0 - 8.0 [facility] Protein-UA 3+(A) Negative [facility] NITRITE Positive(A) Negative [facility] Leukocyte esterase, ur 2+(A) Negative [facility] Urine (Urine) 12/10/2017 4:3 0 PM EDT 12/10/2017 10:30 PM EDT us Liz PIERSON URINE ORDERABLES Final Res ult [address] [address] * Urine culture (12/10/2017 4:30 PM EDT) Specimen Source/ Description URINE URINE [facility] Special Requests None [facility] GRAM STAIN Many GRAM NEGATIVE RODS , Moderate GRAM POSITIVE COCCI IN PAIRS AND SHORT CHAINS [facility] Culture/Test >100,000 colony forming units per ml MIXED RAVINDER (3 OR MORE COLONY TYPES) Culture indicates contamination . Please resubmit if necessary. [facility] Report Status 12/11/2017 FINAL [facility] Urine (Urine) 12/10/2017 4:3 0 PM EDT 12/10/2017 10:29 PM EDT us Liz PIERSON MICROBIOLOGY - GENERAL ORD ERABLES Final Result [facility] [address] [place] [address] documented in this encounter Visit Diagnoses Diagnosis UTI (urinary tract infection), uncomplicated- Primary Urinary tract infection, site not specified documented in this encounter Additional Health Concerns [...] documented as of this encounter Care Teams Editor Map Relationship Specialty Start Date End Date Antonio Goodrich MD [address] [place] [address], 2[address] [place] [address] PCP - General Internal Medicine 07/09/17 11/07/18 Maria Del Carmen Rosas MD [address] [address] [email or web address] PCP - General Family Medicine 11/08/18 12/29/18 Maria Del Carmen Rosas MD [address] [address] [email or web address] PCP - General Family Medicine 12/30/18 07/23/19 Efrem Gomez NP [address] [address] PCP - General 07/24/19 10/26/19 Maria Del Carmen Rosas MD [address] [place] [address] [email or web address] PCP - General Family Medicine 10/27/19 11/02/21 Kristen Jean Baptiste MD [address] [place] [address] [email or web address] PCP - General Family Medicine 11/03/21 Antonio Goodrich MD [address] [place] [address], [address] [place] [address] Insurance Assigned Provider 04/14/17 09/12/19 Antonio Goodrich MD [address] [place] [address], [address] [place] [address] Historical LMR Provider 06/02/17 1 Sharda Henning MD [address] [place] [address], 2[address] [place] [address] [email or web address] Historical LMR Provider 05/28/17 11/18/20 Lavon Ace, GROCERY MANAGER [address] [address] [email or web address] Historical LMR Provider 06/02/1708/20/21 Moody Hauser MD 22 [place] [address] [email or web address] Historical LMR Provider 06/02/17 08/20/21 Asher Alexander MD [address] [place] [address] [email or web address] Historical LMR Provider 06/02/17 1 Anselmo Sands MD 22 [facility], [address] [address] [email or web address] Historical LMR Provider 06/02/17 11/18/20 Juancarlos Mace MD 22 [place] [address] Historical LMR Provider 06/02/17 1 Gage Bass MD [address] [address] Urology 05/07/20 Maria Del Carmen Rosas MD [address] [address] [email or web address] Insurance Assigned Provider 11/20/20 08/19/22 Lynda Pichardo PA-C [address] [place] [address] Physician Board Design Engineer Hematology 10/21/21 Aleyda Blake, OT 30 [place] [address] [email or web address] Transitions Cassandra Consultant 06/05/22 2 documented as of this encounter Additional Source Comments The information contained in this document represents components of the legal health record. It is not the complete legal health record.[facility]
--- OUTSIDE RECORDS SUMMARY | 2025-04-09 04:55 | XMS_ITS | Encounter Summary ---
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 Not o n file documented as of this encounter Functional Status * Calculated C-SSRS Risk Score (Lifetime/Recent) Answer Date of Assessment Author No Risk Indicated 03/20/2025 1:36 PM EDT Payton Tian RN * Swift Suicide Severity Rating Scale (Screener/Recent Self-Report) Question [...] Care [facility] [address] [place] [phone] Wilbert Tavares RN [address] [place] [address] 04/14/2025 1:00 AM EDT Home [facility] [address] [place] [phone] Wilbert Tavares RN [address] [place] [address] [email or web address] 04/22/2025 Appointment [facility] [address] [place] [address] Wilbert Tavares RN [address] [place] [address] [email or web address] documented as of this encounter Visit Diagnoses Not on filedocumented in this encounter Additional Health Concerns Infection Onset Date Last Indicated Resolved Time 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 02/20/2024 documented as of this encounter Care Teams Brim Cutter Relationship Specialty Start Date End Date Corinna Jean Baptiste [facility] [place] [address] [email or web address] PCP - General Family Medicine 11/03/21 Gage Bass MD Urology 05/07/20 Lynda Pichardo PA-C [address] [place] [email or web address] Physician Web Content Developer Hematology 10/21/21 documented as of this encounter Additional Source Comments The information contained in this document represents components of the legal health record. It is not the complete legal health record.[facility]
--- OUTSIDE RECORDS SUMMARY | 2025-04-09 04:55 | XMS_ITS | Encounter Summary ---
Author Organization [facility] Address [address] [facility] [address] [place] [address] Phone Care Team Providers Care Cofounder Name Role Phone Antonio Goodrich MD Unavailable Sharda Henning MD Unavailable Lavon Ace PROGRESSIVE CARE NURSE Unavailable pwit Moody Hauser MD Unavailable Asher Alexander MD Unavailable Anselmo Sands MD Unavailable [phone] Juancarlos Mace MD Unavailable [phone] Maria Del Carmen Rosas MD Primary Care Provider [phone] Gage Bass MD Unavailable [phone] Maria Del Carmen Rosas MD Unavailable [phone] Lynda Pichardo PA-C Unavailable Kristen Jean Baptiste MD Primary Care Provider [phone] Aleyda Blake OT Unavailable [phone] Encounter Details Date Type Department Care Team (Late st Contact Info) Description 11/25/2019 Procedure Pass [facility], 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 file Not o n file documented as of this encounter Last Filed Vital Signs Vital Sign Reading Time Taken Comments Blood Pressure - - Pulse - - Temperature - - Respiratory Rate - - Oxygen Saturation - - Inhaled Oxygen Concentration - - Weight 90.3 kg (199 lb) 11/26/2019 11:58 AM EDT Height 152.4 cm (5') 11/26/2019 11:58 AM EDT Body Mass Index 38.86 11/26/2019 11:58 AM EDT documented in this encounter Plan of Treatment Upcoming Encounters Date Type Department Care Team (Late Contact Info) Description 04/10/2025 12:00 PM EDT [facility] [address] [place] [phone] Wilbert Tavares RN [address] [place] [address] 04/14/2025 1:00 AM EDT [facility] [address] [place] [phone] Wilbert Tavares RN [address] [place] [address] 04/22/2025 [facility] [address] [place] [address] Wilbert Tavares RN [address] [place] [address] [email or web address] documented as of this encounter Visit Diagnoses Not on filedocumented in this encounter Additional Health Concerns Infection Onset Date Last Indicated Resolved Time MRSA Comment:Infection Loaded by the Load Infection Utility 09/15/2015 06/30/2020 09/27/2022 1:[address] Clearance-CoV Comment:For asymptomatic patients undergoing screening for [...] documented as of this encounter Care Teams Cofounder Relationship Specialty Start Date End Date Maria Del Carmen Rosas MD [address] [address] [email or web address] PCP - General Family Medicine 10/27/19 11/02/21 Kristen Jean Baptiste MD [address] [place] [address] [email or web address] PCP - General Family Medicine 11/03/21 Antonio Goodrich MD [address] [place] [address], 2[address] [place] [address] [email or web address] Historical LMR Provider 06/02/17 1 Sharda Henning MD [address] [place] [address], [address] [place] [address] [email or web address] Historical LMR Provider 05/28/17 11/18/20 Db Radhanorma Yuan, ANTONIO [address] [facility] [address] [place] [address] [email or web address] Historical LMR Provider 06/02/1708/20/21 Moody Hauser MD [address] [place] [address] [email or web address] Historical LMR Provider 06/02/17 08/20/21 Asher Alexander MD [address] [place] [address] [email or web address] Historical LMR Provider 06/02/17 1 Anselmo Sands MD 22 [facility] [address] [place] [address] [email or web address] Historical LMR Provider 06/02/17 11/18/20 Juancarlos Mcae MD 22 [place] [address] Historical LMR Provider 06/02/17 1 Gage Bass MD [address] [address] Urology 05/07/20 Maria Del Carmen Rosas MD 15 [facility] [place]. [address] [place] [address] [email or web address] Insurance Assigned Provider 11/20/20 08/19/22 Lynda Pichardo PA-C [address] [place] [address] [email or web address] Physician Supervisor [employer] Hematology 10/21/21 Aleyda Blake, OT [address] [place] [id number] [email or web address] Transitions Physics Technical Officer 06/05/22 2 documented as of this encounter Additional Source Comments The information contained in this document represents components of the legal health record. It is not the complete legal health record.[facility]
--- OUTSIDE RECORDS SUMMARY | 2025-04-09 04:55 | XMS_ITS | Encounter Summary ---
Author Organization [facility] Address [address] [facility] [address] [place] [address] Phone Care Team Providers Care Air Press Operator Name Role Phone Antonio Goodrich MD Unavailable Antonio Goodrich MD Unavailable Sharda Henning MD Unavailable Lavon Ace LIQUOR ESTABLISHMENT MANAGER Unavailable [email or web address] [email or web address] Moody Hauser MD Unavailable Asher Alexander MD Unavailable Anselmo Sands MD Unavailable [phone] Juancarlos Mace MD Unavailable [phone] Antonio Goodrich MD Primary Care Provider [phone] Maria Del Carmen Rosas MD Primary Care Provider Maria Del Carmen Rosas MD Primary Care Provider [phone] Efrem Gomez NP Primary Care Provide r Maria Del Carmen Rosas MD Primary Care Provider Gage Bass MD Unavailable Maria Del Carmen Rosas MD Unavailable Lynda Pichardo PA-C Unavailable [phone] Kristen Jean Baptiste MD Primary Care Provider Aleyad Blake OT Unavailable [phone] Encounter Details Date Type Department Care Team (Latest Contact Info) Description 11/06/2018 Transcribe Orders Virtual Department 30 [place] [address] Maria Del Carmen Rosas MD [address] [address] [email or web address] History of pressure ulcer (Primary Dx) Social History Tobacco Use Types [...] Date 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 on 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 Not on file documented as of this encounter Plan of Treatment Upcoming Encounters Date Type Department Care Team (Late st Contact Info) Description 04/10/2025 12:00 PM EDT Home [facility] Visit [facility] [address] [place] [address] Wilbert Tavares RN [address] [place] [address] [email or web address] 04/14/2025 1:00 AM EDT Home Care Visit [facility] 30 [place] [phone] Wilbert Tavares RN [address] [place] [address] 04/22/2025 Appointment [facility] 30 [place] [address] Wilbert Tavares RN [address] [place] [address] [email or web address] documented as of this encounter Results * US Ankle/Brachial Indices (11/08/2018 5:02 PM EDT) Anatomical Region Laterality Modality Ankle Left, Ankle Right Ultrasou nd 11/11/2018 4:49 PM EDT Impressions 11/11/2018 4:50 PM EDT Impression: Please refer to report associated with accession number [id number] for this study. Thank you. Narrative Procedure Note Manan Mandel MD - 11/11/2018 IMPRESSION: Impression: Please refer to report associated with accession [id number] for this study. Thank you. us Maria Del Carmen Rosas MD US VASCULAR Final Result documented in this encounter Visit Diagnoses Diagnosis History of pressure ulcer- Primary History of pressure ulcer documented in this encounter Additional Health Concerns [...] documented as of this encounter Care Teams Air Press Operator Relationship Specialty Start Date End Date Antonio Goodrich MD [address] [place] [address], 2[address] [place] [address] [email or web address] PCP - General Internal Medicine 07/09/17 11/07/18 Maria Del Carmen Rosas MD [address] [place] [address] [email or web address] PCP - General Family Medicine 11/08/18 12/29/18 Maria Del Carmen Rosas MD [address] [place] [address] [email or web address] PCP - General Family Medicine 12/30/18 07/23/19 Efrem Gomez, JACOBO [address] [place] [address] PCP - General 07/24/19 10/26/19 Maria Del Carmen Rosas MD [address] [address] [email or web address] PCP - General Family Medicine 10/27/19 11/02/21 Kristen Jean Baptiste MD [address] [place] [address] [email or web address] PCP - General Family Medicine 11/03/21 Antonio Goodrich MD [address] [place] [address] [email or web address] Insurance Assigned Provider 04/14/17 09/12/19 Antonio Goodrich MD [address] [place] [address] [email or web address] Historical LMR Provider 06/02/17 1 Sharda Henning MD [address] [place] [address] [email or web address] Historical LMR Provider 05/28/17 11/18/20 aLvon Ace, LIQUOR ESTABLISHMENT MANAGER [address] [address] [email or web address] Historical LMR Provider 06/02/1708/20/21 Moody Hauser MD [address] [place] [address] [email or web address] Historical LMR Provider 06/02/17 08/20/21 Asher Alexander MD [address] [place] [address] [email or web address] Historical LMR Provider 06/02/17 1 Anselmo Sands MD 22 [facility] [address] [place] [address] [email or web address] Historical LMR Provider 06/02/17 11/18/20 Juancarlos Mace MD 22 [place] [address] Historical LMR Provider 06/02/17 1 Gage Bass MD [address] [address] Urology 05/07/20 Maria Del Carmen Rosas MD [address] [address] Insurance Assigned Provider 11/20/20 08/19/22 Lynda Pichardo PA-C [address] [place] [email or web address] Physician College Archivist Hematology 10/21/21 Aleyda Blake, OT 30 [place] [address] Transitions Gis Engineer 06/05/22 2 documented as of this encounter Additional Source Comments The information contained in this document represents components of the legal health record. It is not the complete legal health record.[facility]
--- OUTSIDE RECORDS SUMMARY | 2025-04-09 04:55 | XMS_ITS | Encounter Summary ---
Author Organization [facility] Address [address] [facility] [address] [place] [address] Phone Care Team Providers Care Quarter Trimmer Name Role Phone Antonio Goodrich MD Unavailable [phone] Antonio Goodrich MD Unavailable Sharda Henning MD Unavailable Lavon Ace JUVENILE JUSTICE OFFICER Unavailable [email or web address] Marc Hauser MD Unavailable Asher Alexander MD Unavailable Anselmo Sands MD Unavailable [phone] Juancarlos Mace MD Unavailable [phone] Antonio Goodrich MD Primary Care Provider [phone] Maria Del Carmen Rosas MD Primary Care Provider Maria Del Carmen Rosas MD Primary Care Provider [phone] Efrem Gomez NP Primary Care Provide r Maria Del Carmen Rosas MD Primary Care Provider Gage Bass MD Unavailable Maria Del Carmen Rosas MD Unavailable Lynda Pichardo PA-C Unavailable [phone] Kristen Jean Baptiste MD Primary Care Provider Aleyda Blake OT Unavailable Encounter Details Date Type Department Care Team (Latest Contact Info) Description 11/04/2018 Transcribe Orders Virtual Department [address] [place] [address] Maria Del Carmen Rosas MD [address] [address] [email or web address] Pleuritic pain (Primary Dx) Social History Tobacco Use Types [...] Job 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 on file 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 on 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 Not on file Not on file documented as of this encounter Plan of Treatment Upcoming Encounters Date Type Department Care Team (Late st Contact Info) Description 04/10/2025 12:00 PM EDT Home [facility] Visit [facility] [address] [place] [phone] Wilbert Tavares RN [address] [place] [address] 04/14/2025 1:00 AM EDT Home Care Visit [facility] [address] [place] [phone] Wilbert Tavares RN [address] [place] [address] 04/22/2025 Appointment [facility] [address] [place] [address] Wilbert Tavares RN [address] [place] [address] [email or web address] documented as of this encounter Results * XR CHEST PA AND LATERAL 2 VIEWS (11/08/2018 2:00 PM EDT) Anatomical Region Laterality Modality Chest Radiographic Josephine ging 11/08/2018 2:34 PM EDT Impressions 11/08/2018 3:21 PM EDT No acute cardiopulmonary abnormality is detected. POS - [id number] Edited by: Aleyda Palencia on 11/08/2018 3:02 PM Narrative 11/08/2018 3:21 PM EDT AP and lateral views of the chest obtained. Comparison made to prior of April 2012 and 11/14/2014. Heart not enlarged. Aorta slightly tortuous. No infiltrates or effusions. Surgical clips in the right axillary region noted. No free air or pneumothorax. Limited assessment for compression deformity. None seen. Procedure Note Marc William MD - 11/08/2018 AP and lateral views of the chest obtained. Comparison made to prior 2011 and 11/14/2014. Heart not enlarged. Aorta slightlytortuous. No infiltrates or effusions. Surgical clips in the rightaxillary region noted. No free air or pneumothorax. Limited assessment forcompression deformity. None seen. IMPRESSION: No acute cardiopulmonary abnormality is detected. POS - [id number] Edited by: Aleyda Palencia on 11/08/2018 3:02 PM Maria Del Carmen Rosas MD IMG XR CHEST Final Result documented in this encounter Visit Diagnoses Diagnosis Pleuritic pain- Primary Painful respiration Pleuritic pain Painful respiration documented in this encounter Additional Health Concerns [...] criteria for screening can be found on [employer]. 11/25/2019 11/25/2019 11/28/2019 1:24 AM E DT CoV-Risk 07/11/2023 07/11/2023 07/22/2023 1:22 AM EST CoV-Risk Comment:Per note documentation 02/20/2024 02/20/2024 7:46 PM EDT 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 02/20/2024 documented as of this encounter Care Teams Quarter Trimmer Relationship Specialty Start Date End Date Antonio Goodrich MD [address] [place] [address], [address] [place] [address] [email or web address] PCP - General Internal Medicine 07/09/17 11/07/18 Maria Del Carmen Rosas MD [address] [place] [address] PCP - General Family Medicine 11/08/18 12/29/18 Maria Del Carmen Rosas MD [address] [address] [email or web address] PCP - General Family Medicine 12/30/18 07/23/19 Efrem Gomez, JACOBO [address] [address] PCP - General 07/24/19 10/26/19 Maria Del Carmen Rosas MD 15 [facility] [address] [place] [address] [email or web address] PCP - General Family Medicine 10/27/19 11/02/21 Kristen Jean Baptiste MD [address] [place] [address] [email or web address] PCP - General Family Medicine 11/03/21 Antonio Goodrich MD [address] [place] [address] [email or web address] Insurance Assigned Provider 04/14/17 09/12/19 Antonio Goodrich MD [address] [place] [address] [email or web address] Historical LMR Provider 06/02/17 1 Sharda Henning MD [address] [place] [address] [email or web address] Historical LMR Provider 05/28/17 11/18/20 Lavon Ace, ANTONIO [address] [facility] [address] [place] [address] [email or web address] Historical LMR Provider 06/02/1708/20/21 Marc Hauser MD [address] [place] [address] [email or web address] Historical LMR Provider 06/02/17 08/20/21 Asher Alexander MD [address] [place] [address] [email or web address] Historical LMR Provider 06/02/17 1 Anselmo Sands MD 22 [facility] [address] [place] [address] [email or web address] Historical LMR Provider 06/02/17 11/18/20 Juancarlos Mace MD [address] [place] [address] Historical LMR Provider 06/02/17 1 Gage Bass MD [address] [address] Urology 05/07/20 Maria Del Carmen Rosas MD [address] [address] Insurance Assigned Provider 11/20/20 08/19/22 Lynda Pichardo PA-C [address] [place] [address] Physician Card Grinder Hematology 10/21/21 Aleyda Blake, OT [address] [place] [address] Transitions Engineering Systems Analyst 06/05/22 2 documented as of this encounter Additional Source Comments The information contained in this document represents components of the legal health record. It is not the complete legal health record.[facility]
--- OUTSIDE RECORDS SUMMARY | 2025-04-09 04:55 | XMS_ITS | Encounter Summary ---
Author Organization [facility] Address [address] [facility] [address] [place] [address] Phone Care Team Providers Care Strategic Partner Development Manager Name Role Phone Antonio Goodrich MD Unavailable [phone] Antonio Goodrich MD Unavailable Sharda Henning MD Unavailable Lavon Ace TELEVISION MAINTENANCE MAN Unavailable [email or web address] Moody Hauser MD Unavailable Asher Alexander MD Unavailable Anselmo Sands MD Unavailable [phone] Juancarlos Mace MD Unavailable [phone] Maria Del Carmen Rosas MD Primary Care Provider [phone] Maria Del Carmen Rosas MD Primary Care Provider [phone] Efrem Gomez NP Primary Care Provide r Maria Del Carmen Rosas MD Primary Care Provider [phone] Gage Bass MD Unavailable Maria Del Carmen Rosas MD Unavailable Lynda Pichardo PA-C Unavailable [phone] Corinna Jean Baptiste MD Primary Care Provider Aleyda Blake OT Unavailable Encounter Details Date Type Department Care Team (Late st Contact Info) Description 11/08/2018 Ancillary Orders Virtual Department [address] [place] [address] Maria Del Carmen Rosas MD [address] [address] History of pressure ulcer Social History Tobacco Use Types Packs/Day Years [...] on file Not on file 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 Not on file Not on file documented as of this encounter Plan of Treatment Upcoming Encounters Date Type Department Care Team (Late Contact Info) Description 04/10/2025 12:00 PM EDT Home Care Visit [facility] [address] [place], [place] [phone] Wilbert Tavares RN [address] [place] [address] [email or web address] 04/14/2025 1:00 AM EDT Home Care Visit [facility] [address] [place], [place] [phone] Wilbert Tavares RN [address] [place] [address] 04/22/2025 Appointment [facility] [address] [place] [address] Wilbert Tavares RN [address] [place] [address] [email or web address] documented as of this encounter Results * US Lower Extremity Arteries Duplex (Bilateral) (11/08/2018 5:02 PM EDT) Anatomical Region Laterality Modality Ultrasound 11/11/2018 4:41 PM EDT Impressions 11/11/2018 4:49 PM EDT Impression: Overall somewhat limited examination, reportedly partly due to the patient's general medical condition. There is an overall decrease of segmental limb pressures from proximal to distal but waveforms do suggest mostly triphasic flow and ABIs are only slightly diminished distally. Significant arterial insufficiency is therefore not likely but further evaluation by anatomic imaging or even catheter directed angiography may be considered, if clinically indicated. Narrative 11/11/2018 4:49 PM EDT Clinical history: History of pressure ulcer. Technique: Color-flow ultrasound, Doppler waveforms, segmental limb pressures and arterial indices as well as distal PVRs were obtained. There are no prior studies for comparison. Findings: The following segmental limb pressures were obtained in millimeters of mercury. Right side: PLANOGRAPH OPERATOR 105, profunda femoris 86, SFA proximal 132, mid 90 and distal 85, proximal popliteal artery 57 and distal popliteal artery 59, anterior tibial artery not visualized, proximal and distal peroneal artery 48 and 38 and posterior tibial artery proximally and distally 29 and 48 respectively. Left side: PLANOGRAPH OPERATOR 95, profunda femoris 106, SFA approximately 135, mid 83 and distal 90, proximal and distal popliteal artery 65 and 47 respectively, anterior tibial artery not visualized and proximal peroneal artery 58 as well as proximal and distal tibial artery 45 and 40 respectively. No significant atherosclerotic plaque was identified. Doppler waveforms are difficult to interpret distally due to artifactual changes but are mostly triphasic in appearance which is normal. Right-sided ROCKY at the posterior tibial artery is 0.84, at the dorsalis pedis 0.89. Corresponding values on the left are 0.93 for the posterior tibial and 0.83 at the dorsalis pedis artery. Procedure Note Manan Mandel MD - 11/11/2018 Clinical history: History of pressure ulcer. Technique: Color-flow ultrasound, Doppler waveforms, segmental limbpressures and arterial indices as well as distal PVRs were obtained. Thereare no prior studies for comparison. Findings: The following segmental limb pressures were obtained inmillimeters of mercury. Right side: PLANOGRAPH OPERATOR 105, profunda femoris 86, SFA proximal 132, mid 90 anddistal 85, proximal popliteal artery 57 and distal popliteal artery 59,anterior tibial artery not visualized, proximal and distal peroneal qfcvis44 and 38 and posterior tibial artery proximally and distally 29 and 48respectively. Left side: PLANOGRAPH OPERATOR 95, profunda femoris 106, SFA approximately 135, mid 83 anddistal 90, proximal and distal popliteal artery 65 and 47 respectively,anterior tibial artery not visualized and proximal peroneal artery 58 aswell as proximal and distal tibial artery 45 and 40 respectively. No significant atherosclerotic plaque was identified. Doppler waveforms are difficult to interpret distally due to artifactualchanges but are mostly triphasic in appearance which is normal. Right-sided ROCKY at the posterior tibial artery is 0.84, at the dorsalispedis 0.89. Corresponding values on the left are 0.93 for the posteriortibial and 0.83 at the dorsalis pedis artery. IMPRESSION: Impression: Overall somewhat limited examination, reportedly partly due to thepatient's general medical condition. There is an overall decrease ofsegmental limb pressures from proximal to distal but waveforms do suggestmostly triphasic flow and ABIs are only slightly diminished distally.Significant arterial insufficiency is therefore not likely but furtherevaluation by anatomic imaging or even catheter directed angiography maybe considered, if clinically indicated. us Maria Del Carmen Rosas MD [facility] Final Result documented in this encounter Visit Diagnoses Diagnosis History of pressure ulcer History of pressure ulcer documented in this [...] documented as of this encounter Care Teams Strategic Partner Development Manager Relationship Specialty Start Date End Date Maria Del Carmen Rosas MD [address] [place] [address] [email or web address] PCP - General Family Medicine 11/08/18 12/29/18 Maria Del Carmen Rosas MD [address] [place] [address] [email or web address] PCP - General Family Medicine 12/30/18 07/23/19 Efrem Gomez NP [address] [place] [address] PCP - General 07/24/19 10/26/19 Maria Del Carmen Rosas MD [address] [address] [email or web address] PCP - General Family Medicine 10/27/19 11/02/21 Corinna Jean Baptiste MD [address] [place] [address] [email or web address] PCP - General Family Medicine 11/03/21 Antonio Goodrich MD [address] [place] [address] Insurance Assigned Provider 04/14/17 09/12/19 Antonio Goodrich MD [address] [place] [address] Historical LMR Provider 06/02/17 1 Sharda Henning MD [address] [place] [address] Historical LMR Provider 05/28/17 11/18/20 Lavon Ace, ANTONIO [address] [place] [address] [address] [email or web address] Historical LMR Provider 06/02/1708/20/21 Moody Hauser MD [address] [place] [address] [email or web address] Historical LMR Provider 06/02/17 08/20/21 Asher Alexander MD [address] [place] [address] [place] [address] [email or web address] Historical LMR Provider 06/02/17 1 Anselmo Sands MD [address] [facility] [address] [place] [address] Historical LMR Provider 06/02/17 11/18/20 Juancarlos Maec MD 22 [place] [address] Historical LMR Provider 06/02/17 1 Gage Bass MD [address] [address] Urology 05/07/20 Maria Del Carmen Rosas MD [address] [place] [address] [email or web address] Insurance Assigned Provider 11/20/20 08/19/22 Lynda Pichardo PA-C [address] [place] [address] Physician Transfer Car Operator Hematology 10/21/21 Aleyda Blake, OT [address] [place] [address] Transitions Office Manager Executive Assistant 06/05/22 2 documented as of this encounter Additional Source Comments The information contained in this document represents components of the legal health record. It is not the complete legal health record.[facility]
--- OUTSIDE RECORDS SUMMARY | 2025-04-09 04:55 | XMS_ITS | Encounter Summary ---
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 Not on file Not o n file documented as of this encounter Functional Status * Calculated C-SSRS Risk Score (Lifetime/Recent) Answer Date of Assessment Author No Risk Indicated 03/20/2025 1:36 PM EDT Payton Tian RN * [place] Suicide Severity Rating Scale (Screener/Recent Self-Report) Question [...] Care Visit [facility] [address] [place] [phone] Wilbert Tavares RN [address] [place] [address] [email or web address] 04/14/2025 1:00 AM EDT Home Care Visit [facility] [address] [place] [phone] Wilbert Tavares RN [address] [place] [address] 04/22/2025 Appointment [facility] [address] [place] [address] Wilbert Tavares RN [address] [place] [address] documented as of this encounter Visit Diagnoses Not on filedocumented in this encounter Additional Health Concerns Infection Onset Date Last Indicated Resolved Time 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 02/20/2024 documented as of this encounter Care Teams Electrical Test Engineer Relationship Specialty Start Date End Date Corinna Jean Baptiste [facility] [place] [address] [email or web address] PCP - General Family Medicine 11/03/21 Gage Bass MD Urology 05/07/20 Lynda Pichardo PA-C [address] [place] [address] [email or web address] Physician Cone Trucker Hematology 10/21/21 documented as of this encounter Additional Source Comments The information contained in this document represents components of the legal health record. It is not the complete legal health record.[facility]
--- OUTSIDE RECORDS SUMMARY | 2025-04-09 04:55 | XMS_ITS | Clinical Summary ---
Author Organization [facility] Address [address] [facility] [address] [place] [phone] Phone Care Team Providers Care Launch Steward Name Role Phone Gage Bass MD Unavailable Lynda Pichardo PA-C Unavailable Kristen Jean Baptiste MD Primary Care Provider Allergies Active Allergy Reactions Criticality Noted Date Comments Bupropion Hives,Rash Medium 07/24/2016 Carbamazepine Unknown 01/10/2023 Iodinated Contrast Media Hives,Itching High 06/18/20 17 Levofloxacin GI Upset,Rash Low 06/26/2017 Mercury (Bulk) Anaphylaxis High 06/18/2017 Morphine Hives,Itching High 06/18/2017 Penicillins Hives,Itching,Swelling High 06/18/2017 Metoclopramide Hcl 02/01/2018 Simple Nausea,Vomiting No.26 Nausea and/or Vomiting 03/20/2025 Bupropion Hcl Rash Medium 06/17/2018 Medications ESTRACE 0.01 % (0.1 mg/gram) vaginal cream Apply 0.1 mg topically 3 (three) times a week. mondays06/21/20 20 Active Medication-Free Text 1 Billion Units. 2 capsules daily of the [facility] senior probiotic Active furosemide (LASIX) 40 MG tabletIndications :Essential hypertension Take 1 tablet (40 mg total) by mouth daily. May take a second dose in the afternoon as needed for eema 180 tablet 1 09/22/19 21 Active ascorbic acid, vitamin C, (VITAMIN C) 1000 MG tablet TAKE 1 TABLET BY MOUTH TWICE A DAY 180 tablet 3 11/05/19 21 Active MAPAP, ACETAMINOPHEN, 500 mg capsuleIndication s:Arthritis [The details of the medication are not available because there are pending changes by a home health clinician.] 180 capsule 5 01/12/20 21 Active Additional Information Patient taking differently: Take 500 mg 1 tabby mouth 4 (four) times a day., Reported on 08/26/2024 levothyroxine (SYNTHROID, LEVOTHROID) 88 MCG tabletIndications :Medication refill TAKE 1 TABLET ON AN EMPTY STOMACH IN THE MORNING ONCEA DAY 90 tablet 3 03/02/20 21 Active PROVIGIL 200 mg tabletIndications :Obstructive sleep apnea TAKE 1 TABLET (200 MG TOTAL) BY MOUTH 2 (TWO) TIMES A DAY. VIJAY: BRAND NAME ONLY 60 tablet 03/15/20 Active rivaroxaban (XARELTO) 20 mg Tab Take 10 mg by mouth daily. 11/15/19 22 Active baclofen (LIORESAL) 20 MG tablet Take 20 mg by mouth 3 (three) times a day. Active gabapentin (NEURONTIN) 300 MG capsule Take 300 mg by mouth 3 (three) times a day. Active docusate sodium (COLACE) 100 MG capsule Take 1 capsule (100 mg total) by mouth daily. 06/06/20 22 Active wheat dextrin (BENEFIBER SF) 3 gram/4 gram powder packet Take 1 packet by mouth daily. 06/06/20 22 Active Additional Information Patient not taking.Reported on 04/04/2024 LISINOPRIL ORAL Take 5 mg by mouth daily. 02/24/20 23 Active nitrofurantoin monohydrate macrocrystals (MACROBID) 100 mg capsule (To-Go) Take 100 mg by mouth as directed. take 1 tab morning of catheter change and one tablet the same evening 12/21/19 24 Active modafiniL (PROVIGIL) 200 MG tablet Take 200 mg by mouth 2 (two) times a day (once in the morning and once in the afternoon). 02/21/20 Active sulfamethoxazole- trimethoprim (BACTRIM,SEPTRA) 400-80 mg per tablet Take 1 tablet by mouth daily. 12/29/19 Active mupirocin (BACTROBAN) 2 % ointment 1 Application by Nasal route daily. 01/16/20 Active TRIMETHOPRIM ORAL Take 100 mg by mouth daily. prophylactic tx due to Ocrevus infusions 01/16/20 Active chlorhexidine (PERIDEX) 0.12 % solution Place 15 mL onto teeth 2 (two) times a day. 02/24/20 Active Active Problems Patient Care Coordination No te Formatting of this note migh t be different from the original. Height 5f Per PT. Unable to stand. In wheelchair 08/08/18 Problem Noted Date Diagnosed Date Abnormal liver diagnostic imaging 02/24/2024 Pneumonia of left lower lobe due to infectious o rganism 02/24/2024 Assessment & Plan (02/26/2024 2:18 PM EDT): Was noted to be increasingly hypoxic and coughing up discolored sputum. Switched from levofloxacin to ceftriaxone to cover UTI, bacteremia, and possible aspiration pneumonia. Breathing has since improved. Pyelonephritis 02/22/2024 Assessment & Plan (02/26/2024 2:17 PM EDT): Pt was found to be encephalopathic with UTI and imaging consistent with pyelo. Went to OR with Dr. Carrillo who ended up placing a ureteric stent which resulted in drainage of purulent urine. Blood and urine cultures both growing klebsiella Continue ceftriaxone through Sunday, will discuss with ID if transitioning to orals would be appropriate to expedite discharge F/u with urology Anemia 02/22/2024 Gram-negative bacteremia 02/21/2024 Assessment & Plan (02/26/2024 2:19 PM EDT): Secondary to klebsiella in setting of complicated urinary tract infection. Continue antibiotics as described in pyelo section. Acute respiratory failure with hypoxia History of pulmonary embolus (PE) 02/21/2024 Hyperglycemia 02/21/2024 Colon perforation 06/03/2022 Assessment & Plan (06/05/2022 2:35 PM EDT): -Patient using enemas at home for constipation when developed bright red blood from her rectum with clots. -CT of the abdomen/pelvis showed changes in rectal area concerning for abscess, hematoma perforation. -Antibiotics started in ED and continued -Patient has not had any significant pain. No rectal bleeding west 2 -GI surgery consulted. At this time plan is conservative,not surgery -As patient stable clears started., Continue IV fluid Excessive daytime sleepiness 06/03/2022 Trigeminal neuralgia 01/05/2021 Assessment & Plan (06/03/2022 10:49 PM EDT): -Continue TID gabapentin Postmenopausal bleeding 01/05/2021 Obstructive sleep apnea 07/27/2020 Overview (07/27/2020): Dx 07/2020, referred to Dr Bai for dental appliance Assessment & Plan (07/27/2020 1:28 PM EST): She is well aware of the importance of treating this. Plan per Drs. Wilkins and Bhumika. Tran catheter in place 06/15/2020 Overview (06/15/2020): Changed weekly by [facility] Need for prophylaxis against urinary tract infec tion 06/15/2020 Bladder stones 06/12/2020 Overview (06/12/2020): Struvite. Fired by Dr Avina for refusing suprapubic catheter; became frustrated by Dr Rascon, who referred her to renal Dr uQiles but they could not agree on treatment; now sees Dr Bass MRSA infection 04/27/2020 Short-term memory loss 11/26/2019 Assessment & Plan (11/26/2019 9:58 AM EDT): Intermittent spotty short-term memory loss. This morning she passes the 6 item cognitive screener. Klebsiella pneumoniae infection 11/22/2019 Overview (06/27/2020): RECURRENT Enterococcus faecalis infection 11/22/2019 Overview (06/27/2020): Recurrent Neurogenic bladder 11/20/2019 Assessment & Plan (11/20/2019 8:38 AM EDT): Continue management per Dr Bass, as well as ID and renal as needed. I cannot comment on whether she should resume estradiol as I do not have her clinic records from the episode with abdominal swelling nor am I able to examine her, but I fail to see how it could have contributed in the first place, and if she wants a refill I will provide it. Proteus mirabilis infection 07/12/2019 Overview (06/27/2020): Recurrent Lower extremity edema 08/21/2018 Urinary incontinence 03/05/2018 Secondary progressive multiple sclerosis 018 Assessment & Plan (06/05/2022 2:48 PM EDT): -Patient is wheelchair bound and has a neurogenic bladder, constipation, and excessive daytime sleepiness Usual medication ordered Has chronic Tran Assessment & Plan (12/01/2020 1:57 PM EDT): I looked in up-to-date and it appears that estrogen patches and low-dose vaginal estrogen cream can be safely coadministered. She would like to resume using the patches. She is somewhat concerned about the clot risk, but she is already on a blood thinner and we both agreed that since her primary goal is to relieve suffering, it is better to take a medicine that may help her feel better even if it confers a very slight mortality risk. Assessment & Plan (01/29/2020 1:59 PM EDT): Discussed with pt that she is now giving me different clinical information than she was before. Given that both of her neurologists told her in no uncertain terms the AMS was 2/2 her UTI and temporary, I would trust their judgment and I appear to have been wrong, but again was just passing along the assessment from the furniture sales consultant in the hospital. Assessment & Plan (12/01/2019 8:25 AM EDT): Long conversation today with pt, who is frequently tangential and needs to be redirected, about the telestroke consult's conclusions about her mental status changes and weakness. Pt states she knows she has secondary progressive MS but is certain that this did not cause her AMS, that it must have been the UTI. I explained repeatedly that that made sense initially as an explanation, but it does not explain her hand weakness, and moreover her cognitive symptoms returned while she was on abx, so that is no longer an adequate explanation. She has lost all memory of our phone visit the previous week even though that happened before any urinary sx began. I asked her repeatedly to have conversations with her HCP (who is her appeals assistant) and her child support specialist about what she would want them to do in the event she becomes so confused again. I advised her to discuss her disturbingly deep sedation (e.g. falling asleep with a tray full of food on her lap) with Dr Tirado and ask if she needs either less of her sedating medications or more Provigil. I asked her BUREAU CHIEF to write these down and make sure they got discussed. F/u with me after seeing Dr. Tirado. Assessment & Plan (11/26/2019 9:57 AM EDT): continue the patient's usual meds, PT and OT Obtain records of her outpatient treatment particularly the disease modifying Biologics that she may have been on Assessment & Plan (11/23/2019 3:12 PM EDT): Nursing staff did med rec and patient takes baclofen 40 mg 4 times a day, so we will change this. Assessment & Plan (11/20/2019 8:36 AM EDT): Continue management per Dr. Hui. I will fill out any needed paperwork for her supplements. 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 If she is uncomfortable and wants a second line drug I will refer her to endocrine. She decided to take Fosamax after all. Assessment & Plan (07/27/2020 1:25 PM EST): Discussed R&B of bisphosphonates, including but not limited to atypical femoral fracture and osteonecrosis of the jaw. Her risk of traumatic fracture is lower as a paraplegic, but she is still at risk of vertebral compression fracture and I think - although it is not possible to quantify - that the benefits likely outweigh the risks for her. She would like to take medication and was instructed on how to avoid esophagitis. She should continue her bedbound PT. Assessment & Plan (06/02/2020 1:09 PM EDT): 10 year major osteoporotic/hip fracture risk either 11/2% or 18/3.6% depending on whether she took equivalent of 5 mg prednisolone x 3 mos, or more. Assessment & Plan (11/20/2019 8:39 AM EDT): Agree that an updated DEXA would be appropriate to determine if medication is indicated. Advised pt that all nonurgent imaging is delayed until the COVID pandemic is at bay, but I will be happy to order this for her when the time comes. Obesity Assessment & Plan (11/20/2019 8:40 AM EDT): Reassured pt that nonfasting glucose levels hover around 100 and santos diabetes is unlikely. We can check an A1C next time she needs a blood draw but I do not think she needs to be exposed to a truss driver helper right now. Hypertensive disorder Assessment & Plan (06/04/2022 4:25 PM EDT): -BP on the lower side -Hold lasix while she is receiving IVF Hold lisinopril Assessment & Plan (09/22/2020 1:00 PM EST): She can certainly take a 2nd dose of furosemide as needed for edema and I hope this will take care of her slightly elevated diastolic pressure. I explained that in primary prevention for someone her age, a systolic of 130 is perfectly acceptable; the risk of hypotension if we treat too aggressively is real. Assessment & Plan (03/04/2020 2:26 PM EDT): Long conversation today about what kind of medical evidence is actionable and the rapidly changing nature of scientific opinions about how to prevent and treat COVID. Later data have not yet borne out this concern about mortality in ZENA-inhibitor users and no professional society recommends changing HTN management if it is otherwise working well, so I do not either. It's possible this could all change tomorrow but for now I recommend she change nothing and she agrees to this plan and states she is comfortable with it. Assessment & Plan (11/25/2019 6:19 PM EDT): Creatinine stable, continue lisinopril Assessment & Plan (11/22/2019 4:34 PM EDT): Continue lisinopril and monitor blood pressure. Renal function is stable. Hold furosemide with IV fluid hydration as above. Hypothyroid Assessment & Plan (11/22/2019 4:34 PM EDT): Continue levothyroxine and check TSH. Iron deficiency anemia Assessment & Plan (11/22/2019 4:34 PM EDT): Stable without evidence for active blood loss. Continue iron as prescribed. We will continue to monitor CBC. Urinary tract infection asso ciated with indwelling urethral catheter Assessment & Plan (07/27/2020 1:27 PM EST): Care plan per Drs. Bass & David. No UTI lately, which is good news. Dr Bass needs to write for paraphernalia for the catheter, which he manages. Assessment & Plan (12/01/2019 8:20 AM EDT): Pt wondering if she needs both abx. I explained that given the months we spent chasing a [id number], multiorganism UTI last year that caused her great suffering, I do recommend she complete both courses of abx which are based on the sensitivities of the 3 bacteria found in her urine this time. Assessment & Plan (11/23/2019 3:11 PM EDT): Improving on ceftriaxone. Plan wait for culture and sensitivities to de-escalate antibiotics Recurrent UTI (urinary tract infection) Assessment & Plan (12/01/2020 1:56 PM EDT): Sam's UTIs have been extremely complicated and difficult to treat. I do not think I am suited to be the first-line respondent when she gets another urinary tract infection. I spoke with Dr. Hernandez after our visit and she agreed that patient should be managed by specialists. She is leaving the practice this summer and suggested colleagues to whom I might refer Sam. I do not think she will be able to return to Dr. Avina's clinic after they fired her but if that is her goal I suggested she write a very polite letter to the medical malpractice paralegal, explaining her request and her reasoning. 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 Resolved Problems Problem Noted Date Diagnosed Date Resolved Date YAJAIRA (acute kidney injury) 02/21/2024 Acute encephalopathy 02/21/2024 024 Septic shock due to urinary tract infection 02/20/2024 02/23/2024 Pseudomonas urinary tract infection 09/15/2020 11/04/2020 Acute cystitis with positive culture 09/11/2020 01/05/2021 Recurrent UTI 06/15/2020 07/27/2020 Rectal perforation 01/29/2020 Assessment & Plan (01/29/2020 1:57 PM EDT): I explained to pt that under no circumstances should she insert ANYTHING rectally until her perforation has healed because she risks flushing colon bacteria into the abdomen and causing sepsis. I would wait a few days after she stops having any blood in her stool before a cautious trial of a more flexible enema catheter. This is not without its risks either but obviously being incontinent of stool multiple times a day is not a risk-free alternative. As she is not tolerating the Miralax well I suggested she try MOM instead, in the meantime. Clumsiness on examination 11/25/2019 Overview (11/26/2019): Clumsiness right hand onset 11/25/19 Assessment & Plan (11/26/2019 9:57 AM EDT): I think this is more clumsiness then weakness. There is also a definite short- term memory loss but it is extraordinarily spotty. She has a high degree of detailed memory for some things, but cannot remember all some other important events such as the telephonic visit she had with her primary care doctor yesterday morning that prompted her admission. Work-up today will include obtaining outpatient neuro records from Dr. Tirado; MRI with gadolinium; telemetry neuro consult after imaging is completed. I do not think she ever had a urinary tract infection. Last admission and this admission were all about mental status. There is definitely been fluctuation and I wonder about a flare of MS manifest with a change in short-term memory, clumsiness of the right hand. I sent off inflammatory markers this morning. Altered mental status 11/22/20192019 Assessment & Plan (11/23/2019 3:11 PM EDT): She has cleared her mental status and is back to normal. We discussed discharge planning and we both prefer to wait until tomorrow when culture and sensitivities can guide outpatient oral antibiotic therapy. Falls frequently 03/05/2018 11/20/2019 Class 2 obesity with alveola r hypoventilation, serious comorbidity, and body mass index (BMI) of 38.0 to 38.9 in adult 11/04/2020 Overview (06/27/2020): BMI 38.9 Chronic indwelling Tran catheter 07/27/2020 Encounters Date Type Department Care Team Description 03/27/2025 Episode Documentation Update [facility] [address] [place] [phone] Edilma Gupta 03/24/2025 11:45 AM EDT Home Care Visit [facility] [address] [place] [phone] Wilbert Tavares RN SN PRN HOME VISIT 03/20/2025 12:56 PM EDT - 03/20/2025 7:22 PM EDT Emergency [facility] [address] [place] [id number] Yoshi Kauffman MD Discharge Disposition: Home or Self Care 03/20/2025 11:00 AM EDT Home [facility] Visit [facility] [address] [place] [phone] Wilbert Tavares RN SN HOME VISIT 03/20/2025 Procedure Pass [address] [address] 03/20/2025 Procedure Pass [address] [address] 03/20/2025 Procedure Pass [address] [id number] 03/13/2025 Episode Documentation Update [facility] [address] [place] [address] Sam Ortega 02/24/2025 Plan of Care Documentation [facility] [address] [place] [phone] 02/23/2025 11:45 AM EDT Home [facility] Visit [facility] [address] [place] [address] Wilbert Tavares RN SN OASIS RECERTIFICATION/FUP 02/19/2025 1:00 PM EDT Home [facility] Visit [facility] [address] [place] [address] Laura Brunson, OT OT EVALUATION 02/11/2025 11:15 AM EDT Home [facility] Visit [facility] [address] [place] [address] Wilbert Tavares RN SN HOME VISIT 02/11/2025 Home Care Visit [facility] [address] [place] [address] Laura Brunson, OT TELEPHONE ENCOUNTER 02/06/2025 12:45 PM EDT Home [facility] Visit [facility] [address] [place] [address] Wilbert Tavares RN SN HOME VISIT 02/05/2025 Home Care Visit [facility] [address] [place] [address] Hannah Tatum, PT TELEPHONE ENCOUNTER 01/29/2025 11:00 AM EDT Home [facility] Visit [facility] [address] [place] [address] Wilbert Tavares RN SN HOME VISIT 01/17/2025 10:30 AM EDT Home [facility] Visit [facility] [address] [place] [address] Wilbert Tavares RN SN PRN HOME VISIT 01/17/2025 Home Care Visit [facility] [address] [place] [address] Maria Guadalupe Goncalves, CERTIFIED MEDICAL CODING SPECIALIST CLINICAL COMMUNICATION 01/08/2025 4:41 PM EDT - 01/08/2025 11:59 PM EDT Hospital Encounter [address] [place] [address] Gage Bass MD Discharge Disposition: Home or Self Care 01/08/2025 3:30 PM EDT Home Care Visit [facility] [address] [place] [address] Wilbert Tavares RN SN HOME VISIT 01/08/2025 Transcribe Orders [facility] [address] [place] [address] [place] [address] Gage Bass MD Pyelonephritis (Primary Dx) 01/08/2025 Transcribe Orders [facility] [address] [place] [address] [place] [address] Richard Shine MD from Last 3 Months Immunizations Immunization Administration Dates Next Due COVID-19 (Pre-06/04) Pfizer Vaccine, mRNA, PF 10/09/2020,09/18/2020 COVID-19 (Pre-06/04) Pfizer Vaccine, mRNA, yassine-sucrose, PF 03/10/2022,10/04/2021 [id number] FORMULATION 07/14/2009 Hepatitis A, Adult 05/01/2016,04/05/2016 Hepatitis B Adult 05/31/2016,05/01/2016,04/05/20 16 INFLUENZA, SPLIT VIRUS, TRIV ALENT W/ PRESERVATIVE IM 03/29/2022,04/01/2013,04/01/2012,04/26 Influenza High-Dose Quadriva lent Preservative Free IM 04/10/2021 Influenza High-Dose Trivalen t Preservative Free IM 05/13/2019,04/12/2015 Influenza Quadrivalent Prese rvative Free IM 04/03/2020,04/16/2018,05/07/2017,04/19 Influenza, Unspecified Formulation 04/13/2010,,06/13/2005 Pneumococcal conjugate PCV13 09/24/2015 Pneumococcal polysaccharide PPSV23 05/11,11/25/2019(Deferred: Patient Refused - pt reports she already had),08/13/2006 Td, unspecified formulation 11/02/2005 Tdap 09/24/2015 Zoster live 09/12/2010,08/25/2010 Zoster recombinant 06/08/2019,03/13/2019 Family History Medical History Relation Comments CV disease Father Hypertension Father Mesothelioma Father Parkinson's disease Father CV disease Mother Cancer Mother Hypertension Mother Uterine cancer Mother Stroke Paternal Grandfather Cancer Paternal Grandmother Relation Status Comments Father Mother Paternal Grandfather Paternal Grandmother Social History Tobacco Use Types Packs/Day Years Used Date Smoking Tobacco: Never Smokeless Tobacco: Never Tobacco Cessation:Counseling Given: Not Answered Alcohol Use Standard Drinks/Week Comments Yes 0 [...] Start Date Job End Date 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 on file Not on file Not on 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 Not on file Not on file Not o n file Last Filed Vital Signs Vital Sign Reading Time Taken Comments Blood Pressure 122/62 03/24/2025 12:37 PM EDT Pulse 76 03/24/2025 12:37 PM EDT Temperature 36.5 C (97.7 F) 03/24/2025 12:37 PM EDT Respiratory Rate 16 03/24/2025 12:37 PM EDT Oxygen Saturation 97% 03/24/2025 12:37 PM EDT Inhaled Oxygen Concentration - - Weight 3 kg (6 lb 9.8 oz) 11/28/2024 1:11 PM EDT Height 152.4 cm (5') 04/05/2024 10:43 AM EDT Body Mass Index 1.29 04/05/2024 10:43 AM EDT Plan of Treatment Upcoming Encounters Date Type Department Care Team (Late st Contact Info) Description 04/10/2025 12:00 PM EDT Home [facility] Visit [facility] [address] [place] [address] Wilbert Tavares RN [address] [place] [address] [email or web address] 04/14/2025 1:00 AM EDT Home [facility] Visit [facility] [address] [place], [place] [phone] Wilbert Tavares RN [address] [place] [address] [email or web address] 04/22/2025 Appointment [facility] [address] [place], [place] [phone] Wilbert Tavares RN [address] [place] [phone] [email or web address] Health Maintenance Due Date Last Done Comments DEPRESSION SCREENING 1966 COLOGUARD 1999 FOBT 1999 SIGMOIDOSCOPY 1999 VIRTUAL COLONOSCOPY 1999 RSV VACCINE (1 - Risk 60-74 years 1-dose series) 2014 MAMMOGRAM 10/09/2020 10/09/2018, 080 10/2017, 01/19/2017 FIT TEST 06/14/2023 06/14/2022 COVID-19 VACCINE ( season) 2024 03/10/2022, 10/04/2021, 03/31/2021, Additional history exists LIPID PANEL 11/25/2024 11/26/2019, 11/11, 03/21/2018, Additional history exists INFLUENZA VACCINE (#1) 2025 , 03/29/2022, 03/29/2022, Additional history exists TSH LEVEL 06/27/2025 06/27/2024, 090 11/2023, 02/20/2024, Additional history exists Adult Td,Tdap Booster 09/24/2025 09/24/2015, 006 BLOOD PRESSURE 09/24/2025 03/24/2025 CREATININE LEVEL 03/20/2026 03/20/2025, , 06/27/2024, Additional history exists POTASSIUM LEVEL 03/20/2026 03/20/2025, 052 04/2025, 06/27/2024, Additional history exists COLONOSCOPY 05/14/2028 05/14/2018, 12/29/2014 COLORECTAL CANCER SCREENING 05/14/2028 HEPATITIS A VACCINES Aged Out 05/01/2016, 04/05/20 16 No longer eligible based on patient's age to complete this topic HEPATITIS C SCREENING Completed 05/29/2017 ZOSTER VACCINES Completed 06/08/2019, 08/0 08/2018, 09/12/2010, Additional history exists OSTEOPOROSIS SCREENING INITIAL (ONE-TIME) Completed 06/01/2020 PNEUMOCOCCAL VACCINES (50+ years) Completed 05/30/2022, 05/11/2020, 09/24/2015, Additional history exists SMOKING STATUS SCREENING (Once After 26 Yrs) Completed 05/08/2023 HIB VACCINES Aged Out No longer eligi ble based on patient's age to complete this topic MENINGOCOCCAL VACCINES (ACWY) Aged Out No longer eligible based on patient's age to complete this topic MENINGOCOCCAL VACCINES (B) Aged Out N o longer eligible based on patient's age to complete this topic Medical Devices Implanted Type Area Lead Laying And Gluing Machine Operator Device Identifier Shelf Expiration Date Model / Serial / Lot Stent Ureteral [id number] To 30cm Double Pigtail Suture Stretch Vl Positioner - [id number] Implanted:Qty: 1 on 02/20/2024 by Bhanu Carrillo MD at [facility] Left: Ure[employer] [id number] 03/08/2026 [id number] / / [id number] Procedures Procedure Name Priority Date/Time Associated Diagnosis Comments BASIC METABOLIC PANEL STAT 03/20/2025 5:15 PM EDT ECG 12-LEAD STAT 03/20/2025 3:[address] ABDOMEN/PELVIS WITHOUT CONTRAST Routine 03/20/2025 3:[address] CHEST WITHOUT CONTRAST Routine 03/20/2025 3:[address] HEAD WITHOUT CONTRAST Routine 03/20/2025 3:25 PM EDT PT-INR STAT 03/20/2025 2:42 PM EDT CBC AND DIFFERENTIAL STAT 03/20/2025 2:42 PM EDT BASIC METABOLIC PANEL Routine 01/08/2025 4:41 PM EDT Pyelonephritis TSH Routine 06/27/2024 1:33 PM EST Myxedema heart disease HC BLOOD OCCULT FECAL HGB DETER IA QUAL FECES 1-3 Routine 06/14/2022 8:00 AM EDT Diarrhea, unspecified type BD DXA AXIAL (SPINE) WITH HIP Routine 06/01/2020 2:50 PM EDT Screening for osteoporosis LIPID PANEL Routine 11/26/2019 4:38 AM EDT ENDOSCOPY, COLON 05/14/2018 1:02 PM EDT HM MAMMOGRAPHY Routine 03/15/2018 from Last 3 Months or Most Recently Relevant to Health Maintenance Results * (ABNORMAL) Basic metabolic panel (03/20/2025 5:15 PM EDT) Only the most recent of2 resultswithin the time period is included. SODIUM 141 133 - 146 mmol/L [facility] CHLORIDE 103 96 - 108 mmol/L [facility] POTASSIUM 3.9 3.3 - 5.1 mmol/L [facility] Comment:Specimen slightly he molyzed, result may be falsely elevated. CO2 26 21 - 35 mmol/L [facility] BUN 12 6 - 19 mg/dL [facility] CREATININE 0.60 0.5 - 1.5 mg/dL [facility] GLUCOSE 103(H) 70 - 99 mg/dL [facility] CALCIUM 9.6 8.4 - 10.3 mg/dL [facility] EGFR 96 >59 mL/min/1.7 3m2 [facility] Comment:Estimated glomerular filtration rate calculated using the CKD-EPI refit equation. ANION GAP 16 10 - 20 mmol/L [facility] Blood 03/20/2025 5:15 PM EDT 03/20/2025 5:23 PM EDT us Mere Barone PA-C LAB BLOOD ORDERABLES Fi nal Result [address] [address] * ECG 12-LEAD (03/20/2025 3:42 PM EDT) Ventricular Rate EKG/MIN 66 BPM [facility] Atrial Rate 66 BPM [facility] ID Interval 170 ms [facility] QRS Duration 84 ms [facility] QT Interval 448 ms [facility] QTC Interval 469 ms [facility] P [place] 53 degrees [facility] R Wave [place] 20 degrees [facility] T Wave [place] 65 degrees [facility] 03/20/2025 3:42 PM EDT 03/21/2025 5:17 PM EDT Narrative [facility] - 03/21/2025 5:17 PM EDT Normal sinus rhythm Low voltage QRS Nonspecific T wave abnormality Abnormal ECG When compared with ECG of 26-Feb-2024 16:29, Nonspecific T wave abnormality no longer evident in Inferior leads QT has lengthened Confirmed by Bryant LIZARRAGA ([id number]) on 03/21/2025 5:17:03 PM us Yoshi Kauffman MD ECG ORDERABLES Final Resul t [facility] * CT CHEST WITHOUT CONTRAST (03/20/2025 3:25 PM EDT) Anatomical Region Laterality Modality Chest Computed Tomogra phy 03/20/2025 4:07 PM EDT Impressions 03/20/2025 4:48 PM EDT 1. No acute findings in the chest, abdomen or pelvis. 2. Osteopenia. Narrative 03/20/2025 4:[address] ABDOMEN/PELVIS WITHOUT CONTRAST, CT CHEST WITHOUT CONTRAST Referring clinician's provided indication for this examination in Epic: * Abdominal trauma TECHNIQUE: * Multidetector-row CTs of the chest, abdomen and pelvis was performed without intravenous contrast using tailored dose modulation techniques. Images were reconstructed in the axial, coronal, and sagittal planes. COMPARISON: CT ABDOMEN WITH CONTRAST ; CT ANGIO ABDOMEN/PELVIS WITH AND WITHOUT CONTRAST FINDINGS: CHEST: Lines, Tubes and Devices: none. Lungs: A few scattered pulmonary nodules measuring present. No consolidation or suspicious pulmonary nodule. Pleura: No pleural effusion or pneumothorax. Mediastinum: Heart is not enlarged. No pericardial effusion. Nonaneurysmal thoracic aorta. No suspicious thyroid nodule. Lymph Nodes: No enlarged supraclavicular, axillary, mediastinal, or hilar lymph nodes. Chest Wall: No chest wall mass. Bones: No acute osseous abnormality. Unchanged ventral angulation at T11-12. ABDOMEN / PELVIS: Liver: No focal lesions on this noncontrast CT. Biliary: No biliary ductal dilatation. Normal gallbladder. Spleen: No splenomegaly or focal lesions. Pancreas: No exophytic mass or ductal dilatation. Adrenal Glands: No suspicious nodule. Kidneys/Ureters: No hydronephrosis. Nonobstructive left nephrolithiasis. Bowel: No wall thickening or dilatation. Noninflamed appendix. Peritoneum/Retroperitoneum: No masses, pneumoperitoneum, or fluid. Lymph Nodes: No lymphadenopathy. Pelvic Organs/Bladder: None. Bladder is decompressed with indwelling Tran catheter. Vessels: No abdominal aortic aneurysm. Bones/Soft Tissues: No acute osseous abnormality. Similar degenerative changes in the lumbar spine. Diffuse osseous demineralization. Similar pelvic floor and right abdominal wall laxity. Procedure Note Jean Stern MD - 03/20/2025 CT ABDOMEN/PELVIS WITHOUT CONTRAST, CT CHEST WITHOUT CONTRAST Referring clinician's provided indication for this examination in Epic: *Abdominal trauma TECHNIQUE: * Multidetector-row CTs of the chest, abdomen and pelvis was performedwithout intravenous contrast using tailored dose modulation techniques.Images were reconstructed in the axial, coronal, and sagittal planes. COMPARISON: CT ABDOMEN WITH CONTRAST ; CT ANGIO ABDOMEN/PELVISWITH AND WITHOUT CONTRAST FINDINGS: CHEST: Lines, Tubes and Devices: none. Lungs: A few scattered pulmonary nodules measuring present. Noconsolidation or suspicious pulmonary nodule. Pleura: No pleural effusion or pneumothorax. Mediastinum: Heart is not enlarged. No pericardial effusion.Nonaneurysmal thoracic aorta. No suspicious thyroid nodule. Lymph Nodes: No enlarged supraclavicular, axillary, mediastinal, or hilarlymph nodes. Chest Wall: No chest wall mass. Bones: No acute osseous abnormality. Unchanged ventral angulation [id number]. ABDOMEN / PELVIS: Liver: No focal lesions on this noncontrast CT. Biliary: No biliary ductal dilatation. Normal gallbladder. Spleen: No splenomegaly or focal lesions. Pancreas: No exophytic mass or ductal dilatation. Adrenal Glands: No suspicious nodule. Kidneys/Ureters: No hydronephrosis. Nonobstructive left nephrolithiasis. Bowel: No wall thickening or dilatation. Noninflamed appendix. Peritoneum/Retroperitoneum: No masses, pneumoperitoneum, or fluid. Lymph Nodes: No lymphadenopathy. Pelvic Organs/Bladder: None. Bladder is decompressed with indwelling Foleycatheter. Vessels: No abdominal aortic aneurysm. Bones/Soft Tissues: No acute osseous abnormality. Similar degenerativechanges in the lumbar spine. Diffuse osseous demineralization. Similarpelvic floor and right abdominal wall laxity. IMPRESSION: 1. No acute findings in the chest, abdomen or pelvis. 2. Osteopenia. us Mere Barone PA-C IMG CT CHEST Final R esult * CT ABDOMEN/PELVIS WITHOUT CONTRAST (03/20/2025 3:25 PM EDT) Anatomical Region Laterality Modality Abdomen, Pelvis Computed Tomogra phy 03/20/2025 4:07 PM EDT Impressions 03/20/2025 4:48 PM EDT 1. No acute findings in the chest, abdomen or pelvis. 2. Osteopenia. Narrative 03/20/2025 4:[address] ABDOMEN/PELVIS WITHOUT CONTRAST, CT CHEST WITHOUT CONTRAST Referring clinician's provided indication for this examination in Epic: * Abdominal trauma TECHNIQUE: * Multidetector-row CTs of the chest, abdomen and pelvis was performed without intravenous contrast using tailored dose modulation techniques. Images were reconstructed in the axial, coronal, and sagittal planes. COMPARISON: CT ABDOMEN WITH CONTRAST ; CT ANGIO ABDOMEN/PELVIS WITH AND WITHOUT CONTRAST FINDINGS: CHEST: Lines, Tubes and Devices: none. Lungs: A few scattered pulmonary nodules measuring present. No consolidation or suspicious pulmonary nodule. Pleura: No pleural effusion or pneumothorax. Mediastinum: Heart is not enlarged. No pericardial effusion. Nonaneurysmal thoracic aorta. No suspicious thyroid nodule. Lymph Nodes: No enlarged supraclavicular, axillary, mediastinal, or hilar lymph nodes. Chest Wall: No chest wall mass. Bones: No acute osseous abnormality. Unchanged ventral angulation at T11-12. ABDOMEN / PELVIS: Liver: No focal lesions on this noncontrast CT. Biliary: No biliary ductal dilatation. Normal gallbladder. Spleen: No splenomegaly or focal lesions. Pancreas: No exophytic mass or ductal dilatation. Adrenal Glands: No suspicious nodule. Kidneys/Ureters: No hydronephrosis. Nonobstructive left nephrolithiasis. Bowel: No wall thickening or dilatation. Noninflamed appendix. Peritoneum/Retroperitoneum: No masses, pneumoperitoneum, or fluid. Lymph Nodes: No lymphadenopathy. Pelvic Organs/Bladder: None. Bladder is decompressed with indwelling Tran catheter. Vessels: No abdominal aortic aneurysm. Bones/Soft Tissues: No acute osseous abnormality. Similar degenerative changes in the lumbar spine. Diffuse osseous demineralization. Similar pelvic floor and right abdominal wall laxity. Procedure Note Jean Stern MD - 03/20/2025 CT ABDOMEN/PELVIS WITHOUT CONTRAST, CT CHEST WITHOUT CONTRAST Referring clinician's provided indication for this examination in Epic: *Abdominal trauma TECHNIQUE: * Multidetector-row CTs of the chest, abdomen and pelvis was performedwithout intravenous contrast using tailored dose modulation techniques.Images were reconstructed in the axial, coronal, and sagittal planes. COMPARISON: CT ABDOMEN WITH CONTRAST ; CT ANGIO ABDOMEN/PELVISWITH AND WITHOUT CONTRAST FINDINGS: CHEST: Lines, Tubes and Devices: none. Lungs: A few scattered pulmonary nodules measuring present. Noconsolidation or suspicious pulmonary nodule. Pleura: No pleural effusion or pneumothorax. Mediastinum: Heart is not enlarged. No pericardial effusion.Nonaneurysmal thoracic aorta. No suspicious thyroid nodule. Lymph Nodes: No enlarged supraclavicular, axillary, mediastinal, or hilarlymph nodes. Chest Wall: No chest wall mass. Bones: No acute osseous abnormality. Unchanged ventral angulation [id number]. ABDOMEN / PELVIS: Liver: No focal lesions on this noncontrast CT. Biliary: No biliary ductal dilatation. Normal gallbladder. Spleen: No splenomegaly or focal lesions. Pancreas: No exophytic mass or ductal dilatation. Adrenal Glands: No suspicious nodule. Kidneys/Ureters: No hydronephrosis. Nonobstructive left nephrolithiasis. Bowel: No wall thickening or dilatation. Noninflamed appendix. Peritoneum/Retroperitoneum: No masses, pneumoperitoneum, or fluid. Lymph Nodes: No lymphadenopathy. Pelvic Organs/Bladder: None. Bladder is decompressed with indwelling Foleycatheter. Vessels: No abdominal aortic aneurysm. Bones/Soft Tissues: No acute osseous abnormality. Similar degenerativechanges in the lumbar spine. Diffuse osseous demineralization. Similarpelvic floor and right abdominal wall laxity. IMPRESSION: 1. No acute findings in the chest, abdomen or pelvis. 2. Osteopenia. Mere Barone PA-C IMDc CT ABD/PELVIS Final Result * CT HEAD WITHOUT CONTRAST (03/20/2025 3:25 PM EDT) Anatomical Region Laterality Modality Head Computed Tomogra phy 03/20/2025 4:05 PM EDT Impressions 03/20/2025 4:37 PM EDT No acute intracranial findings. ATTESTATION: ISal as teaching physician, have reviewed the images for this case and if necessary edited the report originally created by Asher Arambula. Narrative 03/20/2025 4:[address] HEAD WITHOUT CONTRAST Referring clinician's provided indication for this examination in [facility]: Head trauma, minor (Age >= 65y) TECHNIQUE: CT of the head was performed without intravenous contrast using tailored dose modulation techniques. Images were reconstructed in the axial, coronal, and sagittal planes. COMPARISON: CT HEAD WITHOUT CONTRAST FINDINGS: Brain Parenchyma: No midline shift, mass effect, parenchymal hemorrhage, or evidence of acute territorial infarct. Patchy hypoattenuation in the periventricular and subcortical white matter, likely sequela of chronic microvascular ischemia. Ventricular System and Extra-Axial Spaces: Normal. No extra-axial fluid collections. Basal cisterns are patent. No hydrocephalus. Osseous and Extracranial Structures: No calvarial fracture or significant soft tissue hematoma. No significant paranasal sinus disease. No orbital abnormality. Bilateral lens replacement. Procedure Note Sal Fair MD - 03/20/2025 CT HEAD WITHOUT CONTRAST Referring clinician's provided indication for this examination in [facility]:Head trauma, minor (Age >= 65y) TECHNIQUE: CT of the head was performed without intravenous contrast usingtailored dose modulation techniques. Images were reconstructed in theaxial, coronal, and sagittal planes. COMPARISON: CT HEAD WITHOUT CONTRAST FINDINGS: Brain Parenchyma: No midline shift, mass effect, parenchymal hemorrhage,or evidence of acute territorial infarct. Patchy hypoattenuation in theperiventricular and subcortical white matter, likely sequela of chronicmicrovascular ischemia. Ventricular System and Extra-Axial Spaces: Normal. No extra-axial fluidcollections. Basal cisterns are patent. No hydrocephalus. Osseous and Extracranial Structures: No calvarial fracture or significantsoft tissue hematoma. No significant paranasal sinus disease. No orbitalabnormality. Bilateral lens replacement. IMPRESSION: No acute intracranial findings. ATTESTATION: I, Sal Fair as teaching physician, have reviewed theimages for this case and if necessary edited the report originally createdby Asher Arambula. us Mere Barone PA-C IMG CT HEAD/NECK Final Result * (ABNORMAL) PT-INR (03/20/2025 2:42 PM EDT) PT 14.4(H) 10.2 - 12.9 sec [facility] INR 1.2(H) 0.9 - 1.1 [facility] Comment:Therapeutic range fo r oral Vitamin K antagonists: 2.0-3.5 Blood 03/20/2025 2:42 PM EDT 03/20/2025 3:35 PM EDT us Mere Barone PA-C LAB BLOOD ORDERABLES Fi nal Result [facility] [address] [place] [address] * (ABNORMAL) CBC and differential (03/20/2025 2:42 PM EDT) WBC 9.15 4.00 - 11.00 K/uL [facility] RBC 3.84(L) 4.00 - 5.20 M/uL [facility] HGB 11.8(L) 12.0 - 16.0 g/dL [facility] HCT 37.6 36.0 - 46.0 % [facility] PLT 315 150 - 450 K/uL [facility] MCV 97.9 80.0 - 100.0 fL [facility] MCH 30.7 27.0 - 31.0 pg [facility] MCHC 31.4(L) 32.0 - 36.0 g/dL [facility] RDW 13.9 11.5 - 14.5 % [facility] MPV 10.5 8.4 - 12.0 fL [facility] NRBC 0.00 0.00 /100 WBCs [facility] ABSOLUTE NRBC 0.00 0.00 K/uL [facility] DIFF METHOD Auto [facility] NEUTS 66.6 48.0 - 76.0 % [facility] LYMPHS 23.9 18.0 - 41.0 % [facility] MONOS 5.8 4.0 - 11.0 % [facility] EOS 2.2 0.0 - 5.0 % [facility] BASOS 0.8 0.0 - 1.5 % [facility] Granulocytes, immature (%) 0.7 0.0 - 0.9 % [facility] ABSOLUTE NEUTS 6.10 1.92 - 7.60 K/uL [facility] ABSOLUTE LYMPHS 2.19 0.72 - 4.10 K/uL [facility] ABSOLUTE MONOS 0.53 0.16 - 1.10 K/uL [facility] ABSOLUTE EOS 0.20 0.00 - 0.50 K/uL [facility] ABSOLUTE BASOS 0.07 0.00 - 0.15 K/uL [facility] Granulocytes, immature 0.06 0.00 - 0.09 K/uL [facility] Blood 03/20/2025 2:42 PM EDT 03/20/2025 3:35 PM EDT us Mere Barone PA-C LAB BLOOD ORDERABLES Fi nal Result [facility] [address] [place] [address] * TSH (06/27/2024 1:33 PM EST) TSH 1.32 0.27 - 4.20 uIU/mL [facility] Blood 06/27/2024 1:33 PM EST 06/27/2024 2:00 PM EST us Kristen Jean Baptiste MD LAB BLOOD ORDERABLES Final Result Performing Organization Address City/[facility]/ZIP Co de Phone Number [address] [address] * Fecal immunochemical test x1 (FIT) (06/14/2022 8:00 AM EDT) Pathologist [facility] Immuno Fecal Occult Negative Negative [facility] Stool (Stool) 06/14/2022 8:0 0 AM EDT 06/14/2022 1:33 PM EDT Kristen Jean Baptiste MD BODY FLUIDS AND STOOLS ORDE RABLES Final Result Performing Organization Address [facility] Co de Phone Number [address] [address] * BD DXA AXIAL (SPINE) WITH HIP (06/01/2020 2:50 PM EDT) Anatomical Region Laterality Modality Bone Density Bone Density 06/01/2020 2:53 PM EDT Impressions 06/01/2020 2:55 PM EDT 1.Normal lumbar spine bone density. 2.Bilateral hip osteoporosis. Narrative 06/01/2020 2:55 PM EDT COMPARISON: 02/21/2001. BONE DENSITY FINDINGS: History: This is a 65-year-old postmenopausal paraplegic female. Evaluation of the lumbar spine and hips was performed and felt to be technically adequate. Total bone mineral density in the L1-L4 vertebral bodies was calculated at 1.132 gm/cm2 with a T-score of 0.8 falling within the WHO classification of normal. Z-score of 2.6. Total bone mineral density in the right hip was calculated at 0.585 gm/cm2 with a T-score of -2.9 falling within the WHO classification of osteoporosis. Z-score of -1.6. Total bone mineral density in the left hip was calculated at 0.623 gm/cm2 with a T-score of -2.6 falling within the WHO classification of osteoporosis. Z-score of -1.3. Procedure Note Trent Tidwell MD - 06/01/2020 COMPARISON: 02/21/2001. BONE DENSITY FINDINGS: History: This is a 65-year-old postmenopausal paraplegic female. Evaluation of the lumbar spine and hips was performed and felt to betechnically adequate. Total bone mineral density in the L1-L4 vertebral bodies was calculated at1.132 gm/cm2 with a T-score of 0.8 falling within the WHO classificationof normal. Z- score of 2.6. Total bone mineral density in the right hip was calculated at 0.585 gm/au5vxay a T-score of -2.9 falling within the WHO classification ofosteoporosis. Z-score of -1.6. Total bone mineral density in the left hip was calculated at 0.623 gm/il1dwmb a T-score of -2.6 falling within the WHO classification ofosteoporosis. Z-score of -1.3. IMPRESSION: 1.Normal lumbar spine bone density. 2.Bilateral hip osteoporosis. Maria Del Carmen Rosas MD [facility] BD BONE DENSITY DEXA Fin al Result * (ABNORMAL) Lipid panel (11/26/2019 4:38 AM EDT) HDL 42 mg/dL [facility] Comment: Interpretation <40 mg/dL: Low HDL cholesterol (major risk factor for CHD) Greater than or equal to 60 mg/dL: High HDL cholesterol ( negative risk factor for CHD) HDL - cholesterol is affected by a number of factors, e.g. smoking, excerise, hormones, sex and age. CHOLESTEROL 212 0 - 240 mg/dL [facility] TRIGLYCERIDES 188(H) 30 - 160 mg/dL [facility] LDL 132(H) 50 - 129 mg/dL [facility] Comment: LDL levels in terms of risk for coronary heart disease: <100 mg/dL: Optimal 100-129 mg/dL: Near or above optimal 130-159 mg/dL: Borderline high 160-189 mg/dL: High >190 mg/dL: Very High CARDIAC RISK RATIO 5.0(H) 3.3 - 4.4 C [facility] Blood 11/26/2019 4:38 AM EDT 11/26/2019 6:10 AM EDT us Meghan Cool IMPACT HAMMER OPERATOR LAB BLOOD ORDERABLES Fi nal Result [address] [address] * ENDOSCOPY, COLON (05/14/2018 1:02 PM EDT) Narrative Transcriptions Dipak Palacios MD - 05/14/2018 1:02 PM EDT Patient Name: Sam Schultz Attending MD:: DIPAK PALACIOS MD Procedure Date: 05/14/2018 1:02 PM Date of : 1955 Age: 63 Admit Type: Outpatient Gender: Female Room: [place] [address] Referring MD: Antonio Goodrich MD Exam Type: Colonoscopy Indications: Diarrhea, Hematochezia, mucous in stool Medications: Monitored Anesthesia Care Procedure: Informed consent was obtained from the patient after discussion of the indications, limitations,alternatives, benefits, and risks of the procedure. Risksspecifically discussed include but are not limited to medication reactions, missed lesions, bleeding, perforation, orthe need for emergent surgery. Throughout the procedure, the patient's blood pressure, pulse, end-tidal CO2, and oxygen saturations were monitored continuously. The Olympus adult colonoscope CFQ 180AL #4 wasintroduced through the anus and advanced to the terminal ileum,with identification of the appendiceal orifice and IC valve. The colonoscopy was technically difficult and complexdue to significant looping. Successful completion of the procedure was aided by applying abdominal pressure. The patient tolerated the procedure. The quality of thebowel preparation was adequate. The quality of the bowel preparation was fair. Complications: No immediate complications. Estimated blood loss:Minimal. Findings: The digital rectal exam findings include decreased sphincter tone. The terminal ileum appeared normal. The colon (entire examined portion) was moderately redundant. Normal mucosa was found in the entire colon. Biopsiesfor histology were taken with a cold forceps from the ascending colon, transverse colon and descending colonfor evaluation of microscopic colitis. Estimated blood loss was minimal. The exam was otherwise without abnormality on directand retroflexion views. Impression: - Preparation of the colon was fair. - Decreased sphincter tone found on digital rectalexam. - The examined portion of the ileum was normal. - Redundant colon. - Normal mucosa in the entire examined colon.Biopsied. - The examination was otherwise normal on direct and retroflexion views. Recommendation: - I will send results of your biopsy to you and your referring physician or provider. If you do not receive notification within 3 weeks, please call our office. - Reassurance DIPAK PALACIOS MD 05/14/2018 1:32:43 PM This report has been signed electronically. Number of Addenda: 0 Note Initiated On: 05/14/2018 1:02 PM Procedure Code(s): --- Professional --- 99773, Colonoscopy, flexible; with biopsy, single or multiple --- Technical --- 01594, Colonoscopy, flexible; with biopsy, single or multiple Diagnosis Code(s): --- Professional --- K62.89, Other specified diseases of anus and rectum R19.7, Diarrhea, unspecified K92.1, Melena (includes Hematochezia) Q43.8, Other specified congenital malformations of intestine --- Technical --- K62.89, Other specified diseases of anus and rectum R19.7, Diarrhea, unspecified K92.1, Melena (includes Hematochezia) Q43.8, Other specified congenital malformations of intestine CPT copyright 2016 [employer]. All rights reserved. The codes documented in this report are preliminary and upon application systems engineer reviewmay be revised to meet current compliance requirements. [address] [place], [place] [id number] Antonio Goodrich MD GI PROCEDURE ORDERABLES Fin al Result * MAMMOGRAPHY FOR RESULT ENTRY ONLY (03/15/2018) Historical Provider HEALTH MAINTENANCE Edited Result - Final from Last 3 Months or Most Recently Relevant to Health Maintenance Additional Health Concerns Infection Onset Date Last Indicated 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 02/20/2024 Insurance MEDICARE PART A & B [facility] NET PARTIAL MEDICARE PART A & B [employer] [facility] PARTIAL MEDICARE PART A & B [employer] NET PARTIAL MEDICARE PART A & B [employer] NET PARTIAL MEDICARE PART A & B Member Subscriber Plan / Payer (Ef fective 2007-Present) Name:Sam Schultz Member ID:[id number] Relation to Subscriber:Self Name:Tello Schultzki Subscriber ID:[id number] Payer ID:[id number] Group ID:Not on file Type:Medicare Address: [employer] 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 03/03/2024 11:53 AM MOLST 11/19/2020 11:21 AM * DNR OK to Intubate (Latest Code Status on File) Date Activated Date Inactivated Comments 06/03/2022 10:44 PM Question Answer Comments Code Status Confirmed With: Patient * DNR/DNI (No CPR/No Intubation) Date Activated Date Inactivated Comments 11/25/2019 6:28 PM 06/03/2022 10:44 PM Question Answer Comments Code Status Confirmed With: Patient * DNR/DNI (No CPR/No Intubation) Date Activated Date Inactivated Comments 11/22/2019 4:29 PM 11/25/2019 6:28 PM Question Answer Comments Code Status Confirmed With: Other (specify below ) Code Discussion Comments: MOLST Healthcare Agents on File Name Relationship Healthcare Agent Relationship Communication Omayra (BUREAU CHIEF) Mullins Other .Primary H ealt Care Agent (Proxy form on file) Care Teams Launch Steward Relationship Specialty Start Date End Date Kristen Jean Baptiste MD [address] [place] [address] [email or web address] PCP - General Family Medicine 11/03/21 Gage Bass MD Urology 05/07/20 Lynda Pichardo PA-C [address] [place] [address] [email or web address] Physician Platform Loader Hematology 10/21/21 Additional Source Comments The information contained in this document represents components of the legal health record. It is not the complete legal health record.[facility]
--- OUTSIDE RECORDS SUMMARY | 2025-04-09 04:55 | XMS_ITS | Clinical Summary ---
Author Organization [facility] ity Address [address] [place] [address] Care Team Providers Care Moulder Operator Name Role Phone nAtonio Goodrich MD Primary Care Provider Social History [...] Documents on File Type Date Recorded Patient Customer Service Engineer Expl anation Health Care Decision (hx) 05/10/2017 AD ARTHUR DIRECTIVE Health Care Decision (hx) 05/10/2017 AD ARTHUR DIRECTIVE Health Care Decision (hx) 03/23/2017 AD ARTHUR DIRECTIVE Health Care Decision (hx) 03/23/2017 AD ARTHUR DIRECTIVE Care Teams Moulder Operator Relationship Specialty Start Date End Date Antonio Goodrich MD [address] [place] [phone] PCP - General Internal Medicine 01/19/20
--- NOTE | 2025-04-09 04:56 | ED.GENADULT ---
HPI - General Adult General Chief complaint: Fever Stated complaint: Possible Sepsis , Fever , Chills Time Seen by Provider: 04/09/25 04:54 Source: patient, EMS and old records reviewed Mode of arrival: EMS Limitations: no limitations History of Present Illness ED Provider: DR. Shane HPI narrative: 70-year-old female history of DVT/PE on Xarelto, ME and cardiac arrest, trigeminal neuralgia, osteoporosis, Parkinson's disease, hypothyroidism, HTN, CVA, bladder spasm on chronic indwelling Tran catheter, MS wheelchair-bound, recurrent UTI infection with sepsis and multiple admissions in the past, presented to the ED by ambulance for fever, chills. History of stent placed in the left ureter that was removed by Dr. Bass as per note patient has no stent at the current time. Related Data Home Medications ?Medication ?Instructions ?Recorded ?Confirmed furosemide 40 mg tablet 40 mg PO DAILY 06/18/20 04/02/25 levothyroxine 88 mcg tablet 88 mcg PO DAILY@0600 06/18/20 04/02/25 lisinopril 5 mg tablet 5 mg PO DAILY 06/18/20 04/02/25 cholecalciferol (vitamin D3) 50 1 cap PO DAILY 02/13/22 04/02/25 mcg (2,000 unit) capsule gabapentin 300 mg capsule 300 mg PO TID 07/12/23 04/02/25 modafinil 200 mg tablet (Provigil) 200 mg PO BID 07/12/23 04/02/25 baclofen 20 mg tablet 20 mg PO TID 03/18/24 04/02/25 metronidazole 0.75 % topical cream 1 appl topical BID 03/18/24 04/02/25 [id number] 1 tab PO DAILY 03/18/24 04/02/25 tablet (Multivitamin 50 Plus tablet) rivaroxaban 10 mg tablet (Xarelto) 10 mg PO DAILY 03/18/24 04/02/25 silver sulfadiazine 1 % topical 1 appl topical DAILY 03/18/24 04/02/25 cream fenofibrate 40 mg tablet 40 mg PO DAILY 04/02/25 04/02/25 Previous Rx's ?Medication ?Instructions ?Recorded miconazole nitrate 100 mg vaginal 100 mg vaginal BEDTIME 7 days #7 ea 01/09/25 suppository ascorbic acid (vitamin C) 1,000 mg 1,000 mg PO ONCE 90 days #90 tabs 04/02/25 tablet (Vitamin C) estradiol 0.01% (0.1 mg/gram) See Rx Instructions .Route 3XW 30 04/02/25 vaginal cream days #42.5 grams fosfomycin tromethamine 3 gram 3 g PO Q3D 4 doses #4 packets 04/02/25 oral packet trimethoprim 100 mg tablet 100 mg PO DAILY 90 days #90 tabs 04/02/25 Allergies Allergy/AdvReac Type Severity Reaction Status Date / Time mercury (elemental) Allergy Severe Anaphylaxis Verified 04/09/25 04:38 Penicillins Allergy Severe Hives Verified 04/09/25 04:38 bupropion (From Wellbutrin) Allergy Intermediate Hives Verified 04/09/25 04:38 Iodinated Contrast Media (IV Allergy Intermediate Hives Verified 04/09/25 04:38 Contrast Dye) morphine Allergy Intermediate Hives Verified 04/09/25 04:38 metoclopramide (From Reglan) AdvReac Intermediate Parkinson Verified 04/09/25 04:38 syndrome Review of Systems Review of Systems: All other systems are reviewed and are negative Constitutional: Reports as per HPI and Reports no additional constitutional complaints Eyes: Reports as per HPI and Reports no additional eye complaints Reports system reviewed and no additional complaints, except as documented Cardiovascular: Reports as per HPI and Reports no additional cardiovascular complaints Respiratory: Reports as per HPI and Reports no additional respiratory complaints Gastrointestinal: Reports as per HPI and Reports no additional gastrointestinal complaints Genitourinary: Reports no additional female genitourinary complaints Musculoskeletal: Reports no additional musculoskeletal complaints Skin/Breast: Reports system reviewed and no additional complaints, except as docu Psychiatric: Reports no additional psychiatric complaints Endocrine: Reports no additional endocrine complaints Hematologic/Lymphatic: Reports no additional hematologic/lymphatic complaints Allergic/Immunologic: Reports no additional allergic/immunologic complaints Reports system reviewed and no additional complaints, except as documented and Reports Abnormal speech present [facility] Past Medical History Medical History Bacteremia due to Enterococcus Recurrent UTI (urinary tract infection) Neurogenic bladder Urinary tract infection Wheelchair dependence Sacral decubitus ulcer Pulmonary emboli Cardiac arrest History of trigeminal neuralgia COVID-19 vaccine series completed Osteoporosis Neurogenic urinary bladder disorder NENO (obstructive sleep apnea) Parkinson's variant of multiple system atrophy Thyroid disease History of neurogenic bladder History of MRSA infection Hx of lymphoma Arthritis Back pain Hx pulmonary embolism DVT (deep venous thrombosis) Anemia Hiatal hernia Tran catheter in place Bladder stones Multiple sclerosis CVA (cerebral vascular accident) Myocardial infarction HTN (hypertension) Painful bladder spasm Surgical History Hx of hysterectomy Hx of lumpectomy Hx of vitrectomy History of intraocular lens implant Hx of adenoidectomy Hx of tonsillectomy Hx of laminectomy History of cystoscopy History of biopsy of bladder History of bladder surgery H/O colonoscopy Social History Social History Household Members: None Housing: Apartment Are you a primary healthcare administrator to a significant other at home: No Do you presently have visiting nurse or other home services: Yes Patient Tobacco Use Status: Never used Tobacco Second Hand Smoke Exposure: No Advance Directives: Yes Advance Directives on File: Yes Advance Directives Date on File: 08/02/21 service: No Current occupational status: disabled Physical Exam ED Vital Signs: Vital Signs - 24 hr 04/09/25 04:38 04/09/25 05:49 04/09/25 05:59 Temperature 103.2 F H Pulse Rate 108 H 106 H 106 H Respiratory Rate 26 H Blood Pressure 169/71 H 156/47 H 149/54 H Pulse Oximetry 95 Oxygen Delivery Method Room Air 04/09/25 06:09 04/09/25 06:19 04/09/25 06:28 Temperature 102.8 F H Pulse Rate 105 H 104 H 100 Respiratory Rate 22 H Blood Pressure 145/50 H 143/54 H 141/52 H Pulse Oximetry Oxygen Delivery Method BMI result Body Mass Index 35.3 Vital signs have been reviewed and appear to be correct. Blood pressure elevated. Tachycardia Respiratory rate normal. Febrile, Oxygen saturation normal. Appearance: Alert. Oriented X3. No acute distress. Head: Normal external exam. Normocephalic. Atraumatic. No Hay signs noted. No raccoon eyes noted Eyes: PERRLA. EOMI. Conjunctiva and sclera normal. Eyelids normal. ENT: TM's Normal. Pharynx normal. Uvula midline. Moist mucous membranes. No trismus noted. No drooling noted. No muffled voice noted. Neck: Normal inspection. Neck supple. FROM. No adenopathy. Thyroid Normal. No meningeal signs. No neck mass noted. CVS: Normal heart rate and rhythm. Heart sound normal. No murmurs noted. Pulses normal throughout. Respiratory: No respiratory distress. Painless inspiration. Breath sounds normal. No wheezes/rales/rhonchi noted. Chest nontender. No accessory muscle usage noted or decreased air movement noted. Abdomen: Soft and nontender. Bowel sounds normal in all 4 quadrants. No distention noted. No organomegaly noted. No visible injury noted. Back: No CVA tenderness. Full range of motion noted. Skin: Skin warm and dry. Normal skin color. Normal skin turgor. No rashes/lesions/lacerations noted. Extremities: No lower extremity edema. Extremities exhibit normal range of motion. Extremities nontender. Neuro: Oriented X 3. Cranial nerve exam: II-XII are grossly intact No motor deficit. No sensory deficit. Reflexes normal. Course Reevaluation(s) Reevaluation #1: UTI/septic shock. Chronic indwelling Tran catheterization. Patient received 30 cc/kg of normal saline total off 2,886 ml, 1 g of IV Rocephin. Patient will be admitted. Time: 05:35 Reevaluation #2: FOCUSED EXAM: Completed, patient is AAO x3, no abdominal pain, will be admitted to medical floor. Will consider CT abdomen pelvis rule out obstructive uropathy. Time: 07:00 Medications Administered Discontinued Medications Generic Name Dose Route Start Last Admin Trade Name Freq PRN Reason Stop Dose Admin Ceftriaxone Sodium 1 gm 04/09/25 04:54 04/09/25 05:11 Ceftriaxone Sodium 1 Gm Vial IVPUSH 04/09/25 04:55 1 gm ONCE ONE Administration Sodium Chloride 1,000 mls @ 999 mls/hr 04/09/25 04:55 04/09/25 05:11 Ns IV 04/09/25 05:55 999 mls/hr .Q1H1M ONE Administration Sodium Chloride 2,886 mls @ 2,886 mls/hr 04/09/25 05:18 04/09/25 05:38 Ns 30 ml/kg infuse over 1 hr (2886 ml) 04/09/25 06:17 2,886 mls/hr IV Administration .Q1H STA Acetaminophen 1,000 mg in 100 mls @ 400 mls/hr 04/09/25 05:19 04/09/25 05:40 Ofirmev IV 04/09/25 05:33 400 mls/hr ONCE ONE Administration Medical Decision Making Differential Diagnosis Differential Diagnoses: The differential diagnosis associated with the presentation includes (Pneumonia, pneumothorax, pleural effusion, UTI, sepsis, septic shock, electrolyte derangement, severe anemia.) Admission/Observation Consideration of admission/observation: Escalation of care including admission/observation considered Consult Healthcare Provider Management of the patient was discussed with: Hospitalist (Dr. Lyon) Lab Data MDM Lab Attestation statement: I reviewed the patient's lab results. 04/09/25 04:40 04/09/25 04:40 Labs: Lab Results 04/09/25 04/09/25 Range/Units 04:40 05:12 WBC 21.0 H (4.8-10.8) X10*3/uL RBC 4.01 L D (4.20-5.50) X10*6/uL Hgb 12.3 D (12.0-16.0) g/dl Hct 37.9 D (37.0-47.0) % MCV 94.5 (80.0-98.0) fL MCH 30.7 (27.0-33.0) pg MCHC 32.5 (31.0-35.0) g/dl RDW 13.1 (11.0-16.0) % Plt Count 343 (160-400) X10*3/uL MPV 10.0 (9.4-12.3) fL Immature Gran % (Auto) 0.6 H (0.0-0.4) % Neut % (Auto) 88.3 H (45-73) % Lymph % (Auto) 6.3 L (20-40) % [place] % (Auto) 4.2 (2-11) % Eos % (Auto) 0.4 (0-4) % Baso % (Auto) 0.2 (0-2) % Lymph # (Auto) 1.3 (1.2-4.9) X10*3/uL [place] # (Auto) 0.9 (0.1-1.2) X10*3/uL Eos # (Auto) 0.1 (0.0-0.4) X10*3/uL Baso # (Auto) 0.1 (0.0-0.2) X10*3/uL Abs Immat Gran (auto) 0.13 H (0.00-0.03) X10*3/uL Absolute Neuts (auto) 18.5 H (2.0-8.3) x10*3/uL Absolute Nucleated RBC 0.000 (0.0-0.012) X10*3/uL Nucleated RBC % (auto) 0.0 (0.0-0.2) /100WBC Sodium 140 (135-145) mmol/L Potassium 3.9 D (3.3-5.1) mmol/L Chloride 102 (96-108) mmol/L Carbon Dioxide 24 (22-29) mmol/L Anion Gap 18 (12-20) BUN 13 (9-16) mg/dL Creatinine 0.75 (0.5-1.4) mg/dL Estim Creat Clear Calc 78.9 Estimated GFR > 60 Random Glucose 163 H (60-115) mg/dL Lactic Acid 4.3 H* (0.5-2.0) mmol/L Calcium 9.0 (8.4-10.2) mg/dL Total Bilirubin 0.3 (0.0-1.0) mg/dL AST 18 (5-31) U/L ALT 19 (0-31) U/L Alkaline Phosphatase 74 (39-117) U/L Troponin I High Sens 5.0 (<3.5-17.0) ng/L Total Protein 7.8 (6.5-8.0) g/dL Albumin 4.0 (3.5-5.0) g/dL Urine Color Yellow Urine Appearance Turbid Urine pH 8.5 (5.0-9.0) Ur Specific [place] 1.015 (1.005-1.025) Urine Protein 30 (1+) H (Neg-Trace) mg/dL Urine Glucose (UA) Negative (Negative) mg/dL Urine Ketones Negative (Negative) mg/dL Urine Blood Small (1+) H (Negative) Urine Nitrite Positive H (Negative) Ur Leukocyte Esterase Large (3+) H (Negative) Urine RBC 3-5 H (0-2) /HPF Urine WBC 21-50 (0-5) /HPF Ur Squamous Epith Cells 0-2 (0-2) /HPF Urine Bacteria 4+ (None Seen) Hyaline Casts 11-20 (0-2) /LPF Independent Interpretation I performed an independent interpretation of an: Plain X-Ray (No acute pathology.) Radiology Impression Discussion of test interpretation with radiology: I have reviewed the radiologist's reading. Critical Care Time Critical Care Time Critical Care Time: Yes Total Critical Care Time: 60 Attestation: The patient was critically ill with a high probability of imminent or life-threatening deterioration. I spent greater than 30 minutes of discontinuous time evaluating the patient, delivering critical care at the bedside, discussing evaluating data with consultants. Critical care time does not include time spent performing separately billable procedures or teaching. Time spent performing critical care was 60 minutes. Discharge Plan Discharge Clinical Impression: Septic shock, Acute UTI Patient Disposition: Admitted As Inpatient
--- OUTSIDE RECORDS SUMMARY | 2025-04-09 04:56 | XMS_ITS | Encounter Summary ---
Author Organization [facility] Address [address] [facility] [address] [place] [address] Phone Care Team Providers Care Typesetter Apprentice Name Role Phone Antonio Goodrich MD Unavailable Antonio Goodrich MD Unavailable [phone] Sharda Henning MD Unavailable [phone] Lavon Ace CAPITAL PROJECT ENGINEER Unavailable [email or web address] Moody Hauser MD Unavailable Asher Alexander MD Unavailable Anselmo Sands MD Unavailable [phone] Juancarlos Mace MD Unavailable [phone] Antonio Goodrich MD Primary Care Provider Kelly Villarreal RN Unavailable Maria Del Carmen Rosas MD Primary Care Provider [phone] Maria Del Carmen Rosas MD Primary Care Provider [phone] Efrem Gomez NP Primary Care Provide r Maria Del Carmen Rosas MD Primary Care Provider Gage Bass MD Unavailable Maria Del Carmen Rosas MD Unavailable Lynda Pichardo PA-C Unavailable [phone] Corinna Jean Baptiste MD Primary Care Provider Aleyda Blake OT Unavailable [phone] Encounter Details Date Type Department Care Team (Latest Contact Info) Description 08/31/2017 Transcribe Orders [facility] Specimen Processing [address] [place] [address] Anant Avina MD [address] [place] [address], [place] [address] Dysuria (Primary Dx); Urinary frequency Social History Tobacco Use Types Packs/Day Years Used Date Smoking Tobacco: Never Smokeless Tobacco: Never Comments Unknown Sex and Gender Information Value [...] 12:00 PM EDT Home Care Visit [facility] [address] [place], [place] [phone] Wilbert Tavares RN [address] [place] [address] 04/14/2025 1:00 AM EDT Home Care Visit [facility] [address] [place], [place] [phone] Wilbert Tavares RN [address] [place] [address] 04/22/2025 Appointment [facility] [address] [place] [phone] Wilbert Tavares, RN [address] [place] [address] [email or web address] documented as of this encounter Results * (ABNORMAL) Urine culture (08/31/2017 1:15 PM EST) Specimen Source/ Description URINE URINE [facility] Special Requests None [facility] GRAM STAIN Few WBC'S , Many GRAM NEGATIVE RODS [facility] Culture/Test >100,000 colony forming units per ml KLEBSIELLA PNEUMONIAE(A) [facility] Culture/Test >100,000 colony forming units per ml ENTEROCOCCUS FAECALIS(A) [facility] Report Status 09/03/2017 FINAL [facility] ORGANISM KLEBSIELLA PNEUMONIAE [facility] ORGANISM ENTEROCOCCUS FAECALIS [facility] Urine (Urine) 08/31/2017 1:1 5 PM EST 08/31/2017 5:11 PM EST Narrative Organism Antibiotic Method Susceptibility Klebsiella pneumoniae Ampicillin [facility] METHOD >=32: Resistant Klebsiella pneumoniae Amoxicillin-clavulanate [facility] METHOD <=2: Susceptible Klebsiella pneumoniae Ampicillin-sulbactam [facility] MET HOD 8: Susceptible Klebsiella pneumoniae Cefazolin [facility] METHOD <=4: Susceptible Klebsiella pneumoniae Cefepime [facility] METHOD <=1: Susceptible Klebsiella pneumoniae Ceftazidime [facility] METHOD <=1: Susceptible Klebsiella pneumoniae Ceftriaxone [facility] METHOD <=1: Susceptible Klebsiella pneumoniae Ciprofloxacin [facility] METHOD <=0.25: Susceptible Klebsiella pneumoniae Extended Spectrum B-lactamase [facility] METHOD Negative Klebsiella pneumoniae Gentamicin [facility] METHOD <=1: Susceptible Klebsiella pneumoniae Levofloxacin [facility] METHOD <=0.12: Susceptible Klebsiella pneumoniae Nitrofurantoin [facility] METHOD 128: Resistant Klebsiella pneumoniae Piperacillin-tazobactam [facility] METHOD <=4: Susceptible Klebsiella pneumoniae Trimethoprim/sulfa methoxa zole [facility] METHOD >=320: Resistant Comment:>100,000 colony form ing units per ml KLEBSIELLA PNEUMONIAE Enterococcus faecalis Ampicillin [facility] METHOD <=2: Susceptible Enterococcus faecalis Penicillin G [facility] METHOD 4: Susceptible Enterococcus faecalis Gentamicin High Level [facility] ME THOD Resistant Enterococcus faecalis Levofloxacin [facility] METHOD 1: Susceptible Enterococcus faecalis Nitrofurantoin [facility] METHOD <=16: Susceptible Enterococcus faecalis Streptomycin High Level [facility] METHOD Susceptible Enterococcus faecalis Tetracycline [facility] METHOD >=16: Resistant Enterococcus faecalis Vancomycin [facility] METHOD 1: Susceptible Comment:>100,000 colony form ing units per ml ENTEROCOCCUS FAECALIS Anant Avina MD MICROBIOLOGY - GENERAL ORDERABL ES Final Result Performing Organization Address [facility] de Phone Number [address] [phone] * (ABNORMAL) Urinalysis (08/31/2017 1:15 PM EST) COLOR Yellow Yellow [facility] CLARITY HAZY [facility] GLUCOSE Negative Negative [facility] BILI Negative Negative [facility] KETONES Negative Negative [facility] SPECIFIC GRAVITY <1.005 1.005 - 1.030 [facility] BLOOD 3+(A) Negative [facility] PH 6.5 5.0 - 8.0 [facility] Protein-UA Negative Negative [facility] NITRITE Negative Negative [facility] Leukocyte esterase, ur 3+(A) Negative [facility] Urine (Urine) 08/31/2017 1:1 5 PM EST 08/31/2017 5:13 PM EST Anant Avina MD URINE ORDERABLES Final Result Performing Organization Address [facility] Phone Number [address] [address] documented in this encounter Visit Diagnoses Diagnosis Dysuria- Primary Urinary frequency documented in this encounter Additional Health Concerns [...] documented as of this encounter Care Teams Typesetter Apprentice Relationship Specialty Start Date End Date Antonio Goodrich MD [address] [place] [address], [address] [place] [address] [email or web address] PCP - General Internal Medicine 07/09/17 11/07/18 Maria Del Carmen Rosas MD [address] [place] [address] [email or web address] PCP - General Family Medicine 11/08/18 12/29/18 Maria Del Carmen Rosas MD [address] [address] [email or web address] PCP - General Family Medicine 12/30/18 07/23/19 Efrem Gomez, JACOBO [address] [place] [address] PCP - General 07/24/19 10/26/19 Maria Del Carmen Rosas MD [address] [address] [email or web address] PCP - General Family Medicine 10/27/19 11/02/21 Corinna Jean Baptiste [facility] [place] [address] [email or web address] PCP - General Family Medicine 11/03/21 Antonio Goodrich MD [address] [place] [address] [email or web address] Insurance Assigned Provider 04/14/17 09/12/19 Antonio Goodrich MD [address] [place] [address] [email or web address] Historical LMR Provider 06/02/17 1 Sharda Henning MD [address] [place] [address] [email or web address] Historical LMR Provider 05/28/17 11/18/20 Lavon Ace, CAPITAL PROJECT ENGINEER [address] [place] [address] [email or web address] Historical LMR Provider 06/02/1708/20/21 Moody Hauser MD [address] [place] [address] [email or web address] Historical LMR Provider 06/02/17 08/20/21 Asher Alexander MD [address] [place] [address] [place] [address] [email or web address] Historical LMR Provider 06/02/17 1 Anselmo Sands MD [address] [facility], [address] [place] [address] [email or web address] Historical LMR Provider 06/02/17 11/18/20 Juancarlos Mace MD [address] [place] [address] Historical LMR Provider 06/02/17 1 Kelly Villarreal RN [address] [place] [address] [email or web address] Carrier Washer 11/16/17 12/02/17 Gage Bass MD [address] [place] [address] Urology 05/07/20 Maria Del Carmen Rosas MD [address] [place] [address] [email or web address] Insurance Assigned Provider 11/20/20 08/19/22 Lydna Pichardo PA-C [address] [place] [address] [email or web address] Physician Felt Cutter Hematology 10/21/21 Aleyda Blake, OT [address] [place] [address] Transitions Carrier Washer 06/05/22 2 documented as of this encounter Additional Source Comments The information contained in this document represents components of the legal health record. It is not the complete legal health record.[facility]
--- OUTSIDE RECORDS SUMMARY | 2025-04-09 04:56 | XMS_ITS | Clinical Summary ---
Author Organization [employer] Address [address] [place] [address] 7 [place] [address] Care Team Providers Care Mill Labor Supervisor Name Role Phone Unavailable Primary Care [...] Medications ARTIFICIAL TEAR INSERT OP daily. Active Active Problems No known active problems Encounters Date Type Department Care Team Description 04/02/2025 Patient Outreach [facility] [address] [place] [address] Swathi Salcedo CHW - dental chair mobilization 03/24/2025 [facility] [address] [place] [address] Swathi Salcedo CHW - assistance to acquire mobilization extra help for de 03/12/2025 Patient Outreach [facility] [address] [place] [address] Rosa Alfaro 01/19/2025 2:00 PM EDT Office Visit [facility] [address] [place] [address] Cathy Fermin Encounter for dental examination (Primary Dx) 01/12/2025 11:00 AM EDT Office Visit [facility] [address] [facility] [place] [address] Lynda Agee LLD 01/12/2025 Refill [facility] [address] [place] [address] Agee MARIA A [place] from Last 3 Months Social History Tobacco Use Types Packs/Day Years [...] 1954 Depression Screening 1954 FIT DNA/Cologuard 1954 FOBT 1954 Lipid Panel 1954 SDOH Screening 1954 Sigmoidoscopy 1954 Alcohol/Substance Use Screening 1966 Tobacco Screening 1966 Hepatitis C Screening 01/25/1972 Mammogram 10/09/2020 10/09/2018, 03/15/2018 FIT 06/14/2023 06/14/2022 Dental Oral Exam 09/14/2024 03/13/2024, 11/2020, 02/10/2019 Dental Prophylaxis 09/14/2024 03/13/2024, 0 09/22/2021, 12/14/2020 Dental X-Ray: Bitewings 03/14/2025 03/13/20, 01/29/2023, 12/14/2020, Additional history exists Influenza Vaccine (#1) 2025 , 09/17/2024, 05/17/2024, Additional history exists Dental X-Ray: Full Mouth 01/30/2026 01/29/2023, 05/0 11/2020 Colonoscopy 05/14/2028 05/14/2018 Colorectal Cancer Screening 05/14/2028 DTaP/Tdap/Td Vaccines (3 - Td or Tdap) 06/12/2034 06/12/2024, 09/24/2015, 11/02/2005 Hepatitis A Vaccines Completed 01/28/2019, 05/01/2016, 04/05/2016 Hepatitis B Vaccines Completed 01/28/2019, 05/31/2016, 05/01/2016, Additional history exists Zoster Vaccines Completed 06/08/2019, 08/2018, 09/12/2010, Additional history exists RSV Patients and Patients Aged 60 years or older Completed 05/19/2023 COVID-19 Vaccine Completed 09/17/2024, 12/2023, 10/19/2023, Additional history exists Pneumococcal Vaccine: 50+ Years Completed 10/06/2024, 05/30/2022, 05/13/2020, Additional history exists HIB Vaccines Aged Out [...] Procedure Name Priority Date/Time Associated Diagnosis Comments 12 EXTRACTION Routine 02/26/2025 12:00 AM EDT NO CHARGE VISIT Routine 01/19/2025 2:00 PM EDT 27 LIMITED ORAL EVALUATION - PROBLEM FOCUSED Routine 01/12/2025 11:00 AM EDT INTRAORAL - PERIAPICAL FIRST RADIOGRAPHIC IMAGE Routine 01/12/2025 11:00 AM EDT Full PROPHYLAXIS - ADULT Routine 03/13/2024 11:00 [...] Maintenance Results * MAMMOGRAM DIGITAL ERIK DIAGNOSTIC: [facility] RADILOLGY [facility] IMAG[facility] (10/09/2018 12:00 AM EST) Anatomical Region Laterality Modality Breast Bilateral Mammography 10/09/2018 Narrative 10/09/2018 12:00 AM EST Refer to Fovea for result details Legacy Procedure: MAMMOGRAM DIGITAL ERIK DIAGNOSTIC: [facility] RAD[facility] Procedure Note Provider, MD John - 12/07/2022 Refer to Fovea for result details Legacy Procedure: MAMMOGRAM DIGITAL ERIK DIAGNOSTIC: [facility] RADIL[facility]IMAGING Historical Provider IMG BI PROCEDURES Final R esult * [...] Most Recently Relevant to Health Maintenance Insurance [facility] DENTAL - HSN PARTIAL (MEDICAID) DENTAL - [place] [address]
--- OUTSIDE RECORDS SUMMARY | 2025-04-09 04:56 | XMS_ITS | Encounter Summary ---
Author Organization [facility] Address [address] [facility] [address] [place] [address] Phone Care Team Providers Care Case Making Machine Operator Name Role Phone Drea Aceleeroy Yuan GLOVE PARTS CUTTER Unavailable [email or web address] Moody Hauser MD Unavailable Maria Del Carmen Rosas MD Primary Care Provider [phone] Gage Bass MD Unavailable Maria Del Carmen Rosas MD Unavailable [phone] Lynda Pichardo PA-C Unavailable [phone] Kristen Jean Baptiste MD Primary Care Provider Aleyda Blake OT Unavailable [phone] Reason for Referral * MRI/CAT Scan - Closed Specialty Diagnoses / Procedures Referred By Eduardo milner Referred To Contact Radiology Diagnoses MS (multiple sclerosis) Procedures MRI Brain Fernando Tirado MD Phone: tel: fax: [email or web address] Referral ID Status Reason Start Date Expiration Date Visits Re quested Visits Authorized [id number] Closed 01/07/2021 01/07/2022 1 1 Encounter Details Date Type Department Care Team (Latest Contact Info) Description 01/07/2021 Transcribe Orders Virtual Department [address] [place] [address] Fernando Tirado MD [address] [place] [address], [address] [place] [address] 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 on file Not on file 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 on 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 Not on file Not on file Not o n file documented as of this encounter Plan of Treatment Upcoming Encounters Date Type Department Care Team (Late st Contact Info) Description 04/10/2025 12:00 PM EDT [facility] [address] [place], [place] [phone] Wilbert Tavares RN [address] [place] [address] 04/14/2025 1:00 AM EDT Home [facility] [address] [place] [address] Wilbert Tavares RN [address] [place] [address] 04/22/2025 Appointment [facility] [address] [place] [address] Wilbert Tavares RN [address] [place] [address] [email or web address] documented as of this encounter Results * MRI BRAIN (TRIGEMINAL) WITH AND WITHOUT CONTRAST (01/13/2021 10:48 AM EDT) Anatomical Region Laterality Modality Head Magnetic Resonan ce 01/13/2021 11:0 0 AM EDT Impressions 01/13/2021 11:08 AM EDT 1.No findings to account for the patient's trigeminal neuralgia. 2.Stable advanced atrophy for age and demyelinating lesions. Narrative 01/13/2021 11:08 AM EDT COMPARISON: 11/26/2019. TECHNIQUE: Exam performed on a 1.5 Jessie high-field MRI scanner. Axial T2, GRE, T2 FLAIR, diffusion-weighted imaging with ADC map, and sagittal FLAIR and T1 of the whole brain, thin section axial T1, and 3-D axial high resolution bright fluid through the region of the IACs, followed by post-gadolinium axial T1 of the whole brain and post-gadolinium thin section axial and coronal T1 through the region of the IACs. MRI HEAD/IAC FINDINGS: Brain: No cerebellar tonsil herniation. Pituitary gland is not enlarged. No restricted diffusion to indicate acute or subacute ischemia. No intraparenchymal susceptibility artifact to indicate hemorrhage. Stable moderate generalized cortical atrophy advanced for age and extensive subcortical and deep white matter T2 hyperintense lesions. No enhancement. No mass, mass effect, midline shift or extra-axial fluid collections. Internal auditory canals are unremarkable. Ventricles: No hydrocephalus. Stable mild enlargement due to atrophy. Vasculature: Normal vascular flow-voids. Orbits: Left lens implant. No acute findings. Mastoids/Middle Ear/Paranasal Sinuses: Normal. Soft Tissues: Unremarkable. Bone Marrow: Stable incidental skull hyperostosis. Procedure Note Trent Tidwell MD - 01/13/2021 COMPARISON: 11/26/2019. TECHNIQUE: Exam performed on a 1.5 Jessie high-field MRI scanner. AxialT2, GRE, T2 FLAIR, diffusion-weighted imaging with ADC map, and sagittalFLAIR and T1 of the whole brain, thin section axial T1, and 3-D axial highresolution bright fluid through the region of the IACs, followed bypost-gadolinium axial T1 of the whole brain and post-gadolinium thinsection axial and coronal T1 through the region of the IACs. MRI HEAD/IAC FINDINGS: Brain: No cerebellar tonsil herniation. Pituitary gland is not enlarged.No restricted diffusion to indicate acute or subacute ischemia. Nointraparenchymal susceptibility artifact to indicate hemorrhage. Stablemoderate generalized cortical atrophy advanced for age and extensivesubcortical and deep white matter T2 hyperintense lesions. No enhancement.No mass, mass effect, midline shift or extra-axial fluid collections.Internal auditory canals are unremarkable. Ventricles: No hydrocephalus. Stable mild enlargement due to atrophy. Vasculature: Normal vascular flow-voids. Orbits: Left lens implant. No acute findings. Mastoids/Middle Ear/Paranasal Sinuses: Normal. Soft Tissues: Unremarkable. Bone Marrow: Stable incidental skull hyperostosis. IMPRESSION: 1.No findings to account for the patient's trigeminal neuralgia. 2.Stable advanced atrophy for age and demyelinating lesions. Fernando Tirado MD IMG MR HEAD/NECK Final Resul t documented in this encounter Visit Diagnoses Diagnosis MS (multiple sclerosis)- Primary Multiple sclerosis MS (multiple sclerosis) Multiple sclerosis documented in this encounter Additional Health Concerns Infection Onset Date Last Indicated Resolved Time MRSA Comment:Infection Loaded by the Load Infection Utility 09/15/2015 06/30/2020 09/27/2022 1:[address] CoV-Risk 07/11/2023 07/11/2023 07/22/2023 1:22 AM EST CoV-Risk Comment:Per note documentation 02/20/2024 02/20/2024 7:46 PM EDT 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 02/20/2024 documented as of this encounter Care Teams Case Making Machine Operator Relationship Specialty Start Date End Date Maria Del Carmen Rosas MD [address] [place] [address] [email or web address] PCP - General Family Medicine 10/27/19 11/02/21 Kristen Jean Baptiste MD [address] [place] [address] [email or web address] PCP - General Family Medicine 11/03/21 Lavon Ace, GLOVE PARTS CUTTER [address] [address] [email or web address] Historical LMR Provider 06/02/1708/20/21 Moody Hauser MD [address] [place] [address] [email or web address] Historical LMR Provider 06/02/17 08/20/21 Gage Bass MD [address] [address] Urology 05/07/20 Maria Del Carmen Rosas MD [address] [address] [email or web address] Insurance Assigned Provider 11/20/20 08/19/22 Lynda Pichardo PA-C [address] [place] [address] [email or web address] Physician Assembler Dielectric Heater Hematology 10/21/21 Aleyda Blake, OT [address] [place] [address] [email or web address] Transitions Stave Inspector 06/05/22 2 documented as of this encounter Additional Source Comments The information contained in this document represents components of the legal health record. It is not the complete legal health record.[facility]
--- OUTSIDE RECORDS SUMMARY | 2025-04-09 04:56 | XMS_ITS | Encounter Summary ---
Author Organization [employer] Address [address] [facility] 7t [place] [address] Care Team Providers Care Chemical Compounder Name Role Phone Unavailable Primary Care Provider Unavailabl e Encounter Details Date Type Department Care Team (Late st Contact Info) Description 05/07/2024 Orders Only [facility] [address] [place] [address] Fletcher Leija Jr., DMD 9 [place] [address] Social History Tobacco Use Types Packs/Day Years [...]
--- OUTSIDE RECORDS SUMMARY | 2025-04-09 04:56 | XMS_ITS | Encounter Summary ---
Author Organization [facility] Address [address] [facility] [address] [place] [address] Phone Care Team Providers Care Wagon Driver Name Role Phone Antonio Goodrich MD Unavailable Antonio Goodrich MD Unavailable [phone] Sharda Henning MD Unavailable [phone] Lavon Ace CHARGEBACK ANALYST Unavailable pwit [email or web address] Moody Hauser MD Unavailable Asher Alexander MD Unavailable Anselmo Sands MD Unavailable [phone] Juancarlos Mace MD Unavailable [phone] Antonio Goodrich MD Primary Care Provider [phone] Kelly Villarreal RN Unavailable [phone] Maria Del Carmen Rosas MD Primary Care Provider [phone] Maria Del Carmen Rosas MD Primary Care Provider [phone] Efrem Gomez NP Primary Care Provide r Maria Del Carmen Rosas MD Primary Care Provider Gage Bass MD Unavailable [phone] Maria Del Carmen Rosas MD Unavailable [phone] Lynda Pichardo PA-C Unavailable [phone] Kristen Jean Baptiste MD Primary Care Provider Aleyda Blake OT Unavailable [phone] Encounter Details Date Type Department Care Team (Late st Contact Info) Description 08/10/2017 Transcribe Orders [facility] Specimen Processing [address] [place] [address] Sharda Henning MD [address] [place] [address], 2nd [place] [address] [email or web address] Urinary tract infection without hematuria, site unspecified (Primary Dx); Osteomyelitis of multiple sites, unspecified type Social History Tobacco Use Types Packs/Day Years [...] 12:00 PM EDT [facility] [address] [place], [place] [phone] Wilbert Tavares RN [address] [place] [address] 04/14/2025 1:00 AM EDT Home Care Visit [facility] [address] [place], [place] [phone] Wilbert Tavares RN [address] [place] [address] 04/22/2025 Appointment [facility] [address] [place] [address] Wilbert Tavares RN [address] [place] [address] [email or web address] documented as of this encounter Results * (ABNORMAL) Urine culture (08/10/2017 4:00 PM EST) Specimen Source/ Description URINE URINE [facility] Special Requests None [facility] GRAM STAIN Many GRAM POSITIVE RODS , Few GRAM NEGATIVE RODS , Few GRAM POSITIVE COCCI [facility] Culture/Test >100,000 colony forming units per ml KLEBSIELLA PNEUMONIAE(A) [facility] Culture/Test 10,000 to 100,000 colony forming units per ml ENTEROCOCCUS(A) [facility] Report Status 08/13/2017 FINAL [facility] ORGANISM KLEBSIELLA PNEUMONIAE [facility] ORGANISM ENTEROCOCCUS [facility] Urine (Urine) 08/10/2017 4:0 0 PM EST 08/10/2017 7:24 PM EST Narrative Organism Antibiotic Method Susceptibility Klebsiella pneumoniae Ampicillin [facility] METHOD >=32: Resistant Klebsiella pneumoniae Amoxicillin-clavulanate [facility] METHOD <=2: Susceptible Klebsiella pneumoniae Ampicillin-sulbactam [facility] MET HOD 4: Susceptible Klebsiella pneumoniae Cefazolin [facility] METHOD [...] Susceptible Klebsiella pneumoniae Nitrofurantoin [facility] METHOD 64: Intermediate Klebsiella pneumoniae Piperacillin-tazobactam [facility] METHOD <=4: Susceptible Klebsiella pneumoniae Trimethoprim/sulfa methoxa zole [facility] METHOD >=320: Resistant Comment:>100,000 colony form ing units per ml KLEBSIELLA PNEUMONIAE Enterococcus Ampicillin [facility] METHOD <=2: Susceptible Enterococcus Penicillin G [facility] METHOD 4: Susceptible Enterococcus Gentamicin High Level [facility] METHOD Susceptible Enterococcus Levofloxacin [facility] METHOD 1: Susceptible Enterococcus Nitrofurantoin [facility] METHOD <=16: Susceptible Enterococcus Streptomycin High Level [facility] CLEMETNE METHOD Susceptible Enterococcus Tetracycline [facility] METHOD >=16: Resistant Enterococcus Vancomycin [facility] METHOD 1: Susceptible Comment:10,000 to 100,000 co lony forming units per ml ENTEROCOCCUS us Sharda A Juvencio LIM MICROBIOLOGY - GENERAL ORDERA BLES Final Result Performing Organization Address [facility]/ZIP Co de Phone Number [address] [address] * (ABNORMAL) Urinalysis with sediment (08/10/2017 4:00 PM EST) WBC 21-49(A) NONE SEEN /hpf [facility] RBC 6-10(A) NONE SEEN /hpf [facility] URINE EPITHELIAL 11-20(A) NONE SEEN [facility] MUCUS 2+(A) NONE SEEN /hpf [facility] BACTERIA 2+(A) NONE SEEN [facility] CRYSTALS 1+ [facility] Comment:Calcium Oxalate COLOR STRAW(A) Yellow [facility] CLARITY HAZY [facility] GLUCOSE Negative Negative [facility] BILI Negative Negative [facility] KETONES Negative Negative [facility] SPECIFIC GRAVITY <1.005 1.005 - 1.030 [facility] BLOOD 2+(A) Negative [facility] PH 6.0 5.0 - 8.0 [facility] Protein-UA Negative Negative [facility] NITRITE Positive(A) Negative [facility] Leukocyte esterase, ur 2+(A) Negative [facility] Urine (Urine) 08/10/2017 4:0 0 PM EST 08/10/2017 7:25 PM EST us Shadra A Juvencio LIM URINE ORDERABLES Final Result Performing Organization Address [facility] Co de Phone Number [address] [address] * (ABNORMAL) C-Reactive Protein (08/10/2017 4:00 PM EST) C REACTIVE PROTEIN 0.7(H) 0 - 0.5 mg/L [facility] Blood 08/10/2017 4:00 PM EST 08/10/2017 7:26 PM EST us Sharda A Juvencio LIM LAB BLOOD ORDERABLES Final Re sult [facility] [address] [place] [address] * (ABNORMAL) CBC and differential (08/10/2017 4:00 PM EST) WBC 6.08 3.40 - 11.20 K/uL [facility] RBC 3.99 3.80 - 4.80 M/uL [facility] HGB 12.1 12.0 - 15.0 g/dL [facility] HCT 39.3 36.0 - 46.0 % [facility] PLT 309 130 - 400 K/uL [facility] MCV 98.5(H) 79.0 - 98.0 fL [facility] MCH 30.3 27.0 - 34.8 pg [facility] MCHC 30.8(L) 31.5 - 36.0 g/dL [facility] RDW 14.4 10.8 - 14.6 % [facility] MPV 10.0 9.4 - 12.4 fl [facility] NRBC 0.00 /100 WBCs [facility] ABSOLUTE NRBC 0.00 K/uL [facility] DIFF METHOD Auto [facility] NEUTS 52.9 45.30 - 77.70 % [facility] LYMPHS 36.7 12.30 - 39.70 % [facility] MONOS 7.6 4.10 - 12.80 % [facility] EOS 1.6 0 - 7.2 % [facility] BASOS 0.7 0 - 2.80 % [facility] Granulocytes, immature (%) 0.5 0.0 - 0.9 % [facility] ABSOLUTE NEUTS 3.22 1.40 - 7.70 K/uL [facility] ABSOLUTE LYMPHS 2.23 0.60 - 3.20 K/uL [facility] ABSOLUTE MONOS 0.46 0.11 - 0.59 K/uL [facility] ABSOLUTE EOS 0.10 0.01 - 0.50 K/uL [facility] ABSOLUTE BASOS 0.04 0.00 - 0.08 K/uL [facility] Granulocytes, immature 0.03 0.00 - 0.05 K/uL [facility] Blood 08/10/2017 4:00 PM EST 08/10/2017 7:26 PM EST us Sharda A Juvencio LIM LAB BLOOD ORDERABLES Final Re sult [address] [address] documented in this encounter Visit Diagnoses Diagnosis Urinary tract infection without hematuria, site unspecified- Primary Osteomyelitis of multiple sites, unspecified type documented in this encounter Additional Health Concerns [...] documented as of this encounter Care Teams Wagon Driver Relationship Specialty Start Date End Date Antonio Goodrich MD [address] [place] [address], 2nd [place] [address] [email or web address] PCP - General Internal Medicine 07/09/17 11/07/18 Maria Del Carmen Rosas MD [address] [address] [email or web address] PCP - General Family Medicine 11/08/18 12/29/18 Maria Del Carmen Rosas MD [address] [address] [email or web address] PCP - General Family Medicine 12/30/18 07/23/19 Efrem Gomez NP [address] [address] PCP - General 07/24/19 10/26/19 Maria Del Carmen Rosas MD [address] [place] [address] [email or web address] PCP - General Family Medicine 10/27/19 11/02/21 Kristen Jean Baptiste MD [facility] [place] [address] [email or web address] PCP - General Family Medicine 11/03/21 Antonio Goodrich MD [address] [place] [address] [email or web address] Insurance Assigned Provider 04/14/17 09/12/19 Antonio Goodrich MD [address] [place] [address] Historical LMR Provider 06/02/17 1 Sharda Henning MD [address] [place] [address], 2nd [place] [address] [email or web address] Historical LMR Provider 05/28/17 11/18/20 Drea Aceshikhaabigail Yuan, CHARGEBACK ANALYST [address] [facility] [address] [place] [address] [email or web address] Historical LMR Provider 06/02/1708/20/21 Moody Hauser MD [address] [place] [address] [email or web address] Historical LMR Provider 06/02/17 08/20/21 Asher Alexander MD [address] [place] [address] [email or web address] Historical LMR Provider 06/02/17 1 Anselmo Sands MD 22 [facility] [address] [place] [address] [email or web address] Historical LMR Provider 06/02/17 11/18/20 Juancarlos Mace MD 22 [place] [address] Historical LMR Provider 06/02/17 1 Kelly Villarreal, PAUL [address] [place] [address] [email or web address] Tile Shader 11/16/17 12/02/17 Gage Bass MD 15 [facility] [address] [place] [address] Urology 05/07/20 Maria Del Carmen Rosas MD [address] [address] [email or web address] Insurance Assigned Provider 11/20/20 08/19/22 Lynda Pichardo PA-C [address] [place] [email or web address] Physician Shredder Tender Hematology 10/21/21 Aleyda Blake, OT [address] [place] [address] [email or web address] Transitions Tile Shader 06/05/22 2 documented as of this encounter Additional Source Comments The information contained in this document represents components of the legal health record. It is not the complete legal health record.[facility]
--- OUTSIDE RECORDS SUMMARY | 2025-04-09 04:56 | XMS_ITS | Encounter Summary ---
Author Organization [facility] Address [address] [facility] [address] [place] [address] Phone Care Team Providers Care Shiatsu Therapist Name Role Phone Gage Bass MD Unavailable Maria Del Carmen Rosas MD Unavailable Lynda Pichardo PA-C Unavailable Kristen Jean Baptiste MD Primary Care Provider [phone] Aleyda Blake OT Unavailable Encounter Details Date Type Department Care Team (Late st Contact Info) Description 06/03/2022 Procedure Pass [facility], Ct Scan - [address] [address] Social History Tobacco Use Types Packs/Day Years Used Date Smoking Tobacco: Never Smokeless Tobacco: Never Alcohol Use Standard Drinks/Week Comments Yes 0 (1 standard drink = 0.6 oz pure alcohol) Nightly beer or shot, controlled by NEGATIVE RESTORER Comments Unknown Sex and Gender Information Value Date Recorded Sex Assigned at Female 09/28/2017 10:36 PM EST Legal Sex Female 6:29 PM EST Gender Identity Female 09/28/2017 10:36 PM EST Sexual Orientation Straight 09/28/2017 10 :36 PM EST 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 Wish to be (Past 1 Month) No 022 2:02 PM EDT Marcial Peña, PAUL 2. Non-Specific Active Suici david Thoughts (Past 1 Month) No 06/03/2022 2:02 PM EDT Jose Peña RN 6. Suicidal Behavior (Lifetime) No 2:02 PM EDT Marcial Peña RN documented as of this encounter Plan of Treatment Upcoming Encounters Date Type Department Care Team (Late st Contact Info) Description 04/10/2025 12:00 PM EDT [facility] [address] [place] [phone] Wilbert Tavares RN [address] [place] [address] 04/14/2025 1:00 AM EDT Home Care Visit [facility] [address] [place] [address] Wilbert Tavares RN [address] [place] [address] 04/22/2025 Appointment [facility] [address] [place] [address] Wilbert Tavares RN [address] [place] [address] documented as of this encounter Visit Diagnoses [...] documented as of this encounter Care Teams Shiatsu Therapist Relationship Specialty Start Date End Date Kristen Jean Baptiste MD [address] [address] [email or web address] PCP - General Family Medicine 11/03/21 Gage Bass MD Urology 05/07/20 Maria Del Carmen Rosas MD [address] [address] Insurance Assigned Provider 11/20/20 08/19/22 Lynda Pichardo PA-C 30 [place] [address] Physician Destination Specialist Hematology 10/21/21 Aleyda Blake, OT 30 [place] [address] Transitions Vocational Rehabilitation Counselor 06/05/22 2 documented as of this encounter Additional Source Comments The information contained in this document represents components of the legal health record. It is not the complete legal health record.[facility]
--- OUTSIDE RECORDS SUMMARY | 2025-04-09 04:56 | XMS_ITS | Encounter Summary ---
Author Organization [facility] Address [address] [employer] [facility] [address] [place] [address] Phone Care Team Providers Care Double End Tenon Operator Name Role Phone Lavon Ace Kwabena PUBLICITY WRITER Unavailable pwit Moody Hauser MD Unavailable Maria Del Carmen Rosas MD Primary Care Provider Gage Bass MD Unavailable Maria Del Carmen Rosas MD Unavailable [phone] Lynda Pichardo PA-C Unavailable [phone] Kristen Jean Baptiste MD Primary Care Provider Aleyda Blake OT Unavailable Encounter Details Date Type Department Care Team (Late st Contact Info) Description 01/07/2021 Procedure Pass [facility], [address] [address] Social History Tobacco Use Types Packs/Day Years Used Date Smoking Tobacco: Never Smokeless Tobacco: Never Alcohol Use Standard Drinks/Week Comments Yes 0 (1 standard drink = 0.6 oz pure alcohol) Nightly beer or shot, controlled by CONDUCTOR SLEEPING CAR Comments Unknown Sex and Gender Information Value Date Recorded Sex Assigned at Female 09/28/2017 10:36 PM EST Legal Sex Female 6:29 PM EST Gender Identity Female 09/28/2017 10:36 PM EST Sexual Orientation Straight 09/28/2017 10 :36 PM EST 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 file Not o n file documented as of this encounter Plan of Treatment Upcoming Encounters Date Type Department Care Team (Late st Contact Info) Description 04/10/2025 12:00 PM EDT [facility] [address] [place] [phone] Wilbert Tavares RN [address] [place] [address] 04/14/2025 1:00 AM EDT Home [facility] [address] [place] [phone] Wilbert Tavares RN [address] [place] [address] 04/22/2025 Appointment [facility] [address] [place] [phone] Wilbert Tavares RN [address] [place] [address] documented as of this encounter Visit Diagnoses [...] documented as of this encounter Care Teams Double End Tenon Operator Relationship Specialty Start Date End Date Maria Del Carmen Rosas MD [address] [address] [email or web address] PCP - General Family Medicine 10/27/19 11/02/21 Kristen Jean Baptiste MD [address] [place] [address] [email or web address] PCP - General Family Medicine 11/03/21 Lavon Ace, ANTONIO [address] [address] [email or web address] Historical LMR Provider 06/02/1708/20/21 Moody Hauser MD [address] [place] [address] [email or web address] Historical LMR Provider 06/02/17 08/20/21 Gage Bass MD [address] [place] [address] Urology 05/07/20 Maria Del Carmen Rosas MD [address] [place] [address] [email or web address] Insurance Assigned Provider 11/20/20 08/19/22 Lynda Pichardo PA-C [address] [place] [address] [email or web address] Physician Maintenance Service Supervisor Hematology 10/21/21 Aleyda Blake, OT [address] [place] [address] [email or web address] Transitions Bookmobile Librarian 06/05/22 2 documented as of this encounter Additional Source Comments The information contained in this document represents components of the legal health record. It is not the complete legal health record.[facility]
--- OUTSIDE RECORDS SUMMARY | 2025-04-09 04:56 | XMS_ITS | Encounter Summary ---
Author Organization [facility] Address [address] [facility] [address] [place] [address] Phone Care Team Providers Care Licensing Engineer Name Role Phone Antonio Goodrich MD Unavailable Antonio Goodrich MD Unavailable Sharda Henning MD Unavailable Lavon Ace MOSAIC TECHNICIAN Unavailable [email or web address] [email or web address] Moody Hauser MD Unavailable Asher Alexander MD Unavailable Anselmo Sands MD Unavailable [phone] Juancarlos Mace MD Unavailable [phone] Antonio Goodrich MD Primary Care Provider [phone] Maria Del Carmen Rosas MD Primary Care Provider Maria Del Carmen Rosas MD Primary Care Provider [phone] Efrem Gomez NP Primary Care Provide r Maria Del Carmen Rosas MD Primary Care Provider Gage Bass MD Unavailable Maria Del Carmen Rosas MD Unavailable [phone] Lynda Pichardo PA-C Unavailable [phone] Kristen Jean Baptiste MD Primary Care Provider Aleyda Blake OT Unavailable [phone] Encounter Details Date Type Department Care Team (Late Contact Info) Description 10/07/2018 Procedure Pass [facility], [address] [address] Social History Tobacco Use Types Packs/Day Years [...] Start Date Job 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 Date 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 Not on file Not on file documented as of this encounter Plan of Treatment Upcoming Encounters Date Type Department Care Team (Late Contact Info) Description 04/10/2025 12:00 PM EDT [facility] [address] [place] [address] Wilbert Tavares RN [address] [place] [address] 04/14/2025 1:00 AM EDT [facility] [address] [place] [address] Wilbert Tavares RN [address] [place] [address] 04/22/2025 [facility]ment [facility] [address] [place] [address] Wilbert Tavares RN [address] [place] [address] [email or web address] documented as of this encounter Visit Diagnoses [...] documented as of this encounter Care Teams Licensing Engineer Relationship Specialty Start Date End Date Antonio Godorich MD [address] [place] [address], 2[address] [place] [address] PCP - General Internal Medicine 07/09/17 11/07/18 Maria Del Carmen Rosas MD [address] [address] PCP - General Family Medicine 11/08/18 12/29/18 Maria Del Carmen Rosas MD [address] [address] [email or web address] PCP - General Family Medicine 12/30/18 07/23/19 Efrem Gomez NP [address] [address] PCP - General 07/24/19 10/26/19 Maria Del Carmen Rosas MD [address] [place] [address] [email or web address] PCP - General Family Medicine 10/27/19 11/02/21 Kristen Jean Baptiste MD [address] [place] [address] [email or web address] PCP - General Family Medicine 11/03/21 Antonio Goodrich MD [address] [place] [address] Insurance Assigned Provider 04/14/17 09/12/19 Antonio Goodrich MD [address] [place] [address] Historical LMR Provider 06/02/17 1 Sharda Henning MD [address] [place] [address] [email or web address] Historical LMR Provider 05/28/17 11/18/20 Lavon Ace, MOSAIC TECHNICIAN [facility] [address] [address] [email or web address] Historical LMR Provider 06/02/1708/20/21 Moody Hauser MD 22 [place] [address] [email or web address] Historical LMR Provider 06/02/17 08/20/21 Asher Alexander MD [address] [place] [address] [email or web address] Historical LMR Provider 06/02/17 1 Anselmo Sands MD 22 [facility], [address] [address] [email or web address] Historical LMR Provider 06/02/17 11/18/20 Juancarlos Mace MD 22 [place] [address] Historical LMR Provider 06/02/17 1 Gage Bass MD [address] [address] Urology 05/07/20 Maria Del Carmen Rosas MD [address] [place] [address] [email or web address] Insurance Assigned Provider 11/20/20 08/19/22 Lynda Pichardo PA-C [address] [place] [address] [email or web address] Physician System Administrator Hematology 10/21/21 Aleyda Blake, OT [address] [place] [address] [email or web address] Transitions Nut Picker 06/05/22 2 documented as of this encounter Additional Source Comments The information contained in this document represents components of the legal health record. It is not the complete legal health record.[facility]
--- OUTSIDE RECORDS SUMMARY | 2025-04-09 04:56 | XMS_ITS | Encounter Summary ---
Author Organization [facility] Address [address] [facility] [address] [place] [address] Phone Care Team Providers Care Closet Builder Name Role Phone Antonio Goodrich MD Unavailable Antonio Goodrich MD Unavailable [phone] Sharda Henning MD Unavailable Lavon Ace MOULDER OPERATOR Unavailable [email or web address] Moody Hauser MD Unavailable Asher Alexander MD Unavailable Anselmo Sands MD Unavailable [phone] Juancarlos Mace MD Unavailable [phone] Antonio Goodrich MD Primary Care Provider [phone] Maria Del Carmen Rosas MD Primary Care Provider Maria Del Carmen Rosas MD Primary Care Provider [phone] Efrem Gomez NP Primary Care Provide r Maria Del Carmen Rosas MD Primary Care Provider Gage Bass MD Unavailable Maria Del Carmen Rosas MD Unavailable [phone] Lynda Pichardo PA-C Unavailable [phone] Kristen Jean Baptiste MD Primary Care Provider Aleyda Blake OT Unavailable [phone] Encounter Details Date Type Department Care Team (Late Contact Info) Description 10/07/2018 Procedure Pass [facility], [address] [address] Social History Tobacco Use Types Packs/Day Years [...] 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 Not on file Not on file documented as of this encounter Plan of Treatment Upcoming Encounters Date Type Department Care Team (Late Contact Info) Description 04/10/2025 12:00 PM EDT [facility] [address] [place] [address] Wilbert Tavares RN [address] [place] [address] [email or web address] 04/14/2025 1:00 AM EDT [facility] [address] [place] [address] Wilbert Tavares RN [address] [place] [address] 04/22/2025 Appointment [facility] [address] [place] [address] Wilbert Tavares RN [address] [place] [address] [email or web address] documented as of this encounter Visit Diagnoses [...] documented as of this encounter Care Teams Closet Builder Relationship Specialty Start Date End Date Antonio Goodrich MD [address] [place] [address], 2nd [place] [address] PCP - General Internal Medicine 07/09/17 11/07/18 Maria Del Carmen Rosas MD [address] [address] PCP - General Family Medicine 11/08/18 12/29/18 Maria Del Carmen Rosas MD [address] [address] [email or web address] PCP - General Family Medicine 12/30/18 07/23/19 Efrem Gomez NP [address] [address] PCP - General 07/24/19 10/26/19 Maria Del Carmen Rosas MD [address] [place] [address] [email or web address] PCP - General Family Medicine 10/27/19 11/02/21 Kristen Jean Baptiste MD [address] [place] [address] [email or web address] PCP - General Family Medicine 11/03/21 Antonio Goodrich MD [address] [place] [address] Insurance Assigned Provider 04/14/17 09/12/19 Antonio Goodrich MD [address] [place] [address] Historical LMR Provider 06/02/17 1 Sharda Henning MD [address] [place] [address] [email or web address] Historical LMR Provider 05/28/17 11/18/20 Lavon Ace, MOULDER OPERATOR [facility] [address] [address] [email or web address] Historical LMR Provider 06/02/1708/20/21 Moody Hauser MD 22 [place] [address] [email or web address] Historical LMR Provider 06/02/17 08/20/21 Asher Alexander MD [address] [place] [address] [email or web address] Historical LMR Provider 06/02/17 1 Anselmo Sands MD 22 [facility], [address] [address] [email or web address] Historical LMR Provider 06/02/17 11/18/20 Juancarlos Mace MD 22 [place] [address] Historical LMR Provider 06/02/17 1 Gage Bass MD [address] [address] Urology 05/07/20 Maria Del Carmen Rosas MD [address] [place] [address] [email or web address] Insurance Assigned Provider 11/20/20 08/19/22 Lynda Pichardo PA-C [address] [place] [address] [email or web address] Physician Cafeteria Cashier Hematology 10/21/21 Aleyda Blake, OT [address] [place] [address] [email or web address] Transitions Technical Sales Associate 06/05/22 2 documented as of this encounter Additional Source Comments The information contained in this document represents components of the legal health record. It is not the complete legal health record.[facility]
--- OUTSIDE RECORDS SUMMARY | 2025-04-09 04:56 | XMS_ITS | Encounter Summary ---
Author Organization [facility] Address [address] [facility] [address] [place] [address] Phone Care Team Providers Care Frog Or Oyster Farmworker Name Role Phone Antonio Goodrich MD Unavailable [phone] Antonio Goodrich MD Unavailable [phone] Sharda Henning MD Unavailable [phone] Lavon Ace ENGINE DISPATCHER Unavailable [email or web address] Moody Hauser MD Unavailable Asher Alexander MD Unavailable Anselmo Sands MD Unavailable [phone] Juancarlos Mace MD Unavailable [phone] Sharda Henning MD Primary Care Provider [phone] Antonio Goodrich MD Primary Care Provider [phone] Kelly Villarreal RN Unavailable Maria Del Carmen Rosas MD Primary Care Provider [phone] Maria Del Carmen Rosas MD Primary Care Provider Efrem Gomez NP Primary Care Provide r Maria Del Carmen Rosas MD Primary Care Provider Gage Bass MD Unavailable Maria Del Carmen Rosas MD Unavailable Lynda Pichardo PA-C Unavailable Kristen Jean Baptiste MD Primary Care Provider Aleyda Blake OT Unavailable Encounter Details Date Type Department Care Team (Late st Contact Info) Description 06/26/2017 Transcribe Orders [facility] [address] [place] [address] Sharda Henning MD [address] [place] [address], 2nd [place] [address] [email or web address] Abscess of sacrum (Primary Dx) Social History Tobacco Use Types [...] Visit [facility] [address] [place], [place] [phone] Wilbert Tavares RN [address] [place] [address] 04/14/2025 1:00 AM EDT Home Care Visit [facility] [address] [place], [place] [phone] Wilbert Tavares RN [address] [place], [place] [phone] [email or web address] 04/22/2025 [facility]ment [facility] [address] [place] [phone] Wilbert Tavares RN [address] [place] [address] [email or web address] documented as of this encounter Results * (ABNORMAL) Urine culture (06/26/2017 6:09 PM EST) Specimen Source/ Description URINE CATHETER [facility] Special Requests None [facility] GRAM STAIN Many GRAM NEGATIVE RODS , Rare WBC'S [facility] Culture/Test >100,000 colony forming units per ml KLEBSIELLA PNEUMONIAE(A) [facility] Report Status 06/28/2017 FINAL [facility] ORGANISM KLEBSIELLA PNEUMONIAE [facility] Urine (Urine) 06/26/2017 6:0 9 PM EST 06/26/2017 6:11 PM EST Narrative Organism Antibiotic Method Susceptibility [...] CLEMENTE METHOD <=4: Susceptible Klebsiella pneumoniae Trimethoprim/sulfa methoxaz ole [facility] CLEMENTE METHOD >=320: Resistant Comment:>100,000 colony form ing units per ml KLEBSIELLA PNEUMONIAE us Sharda A Juvencio LIM MICROBIOLOGY - GENERAL ORDERA BLES Final Result [facility] [address] [place] [address] documented in this encounter Visit Diagnoses Diagnosis Abscess of sacrum- Primary documented in this encounter Additional Health Concerns [...] criteria for screening can be found on [place] [employer]. 11/25/2019 11/25/2019 11/28/2019 1:24 AM E DT CoV-Risk 07/11/2023 07/11/2023 07/22/2023 1:22 AM EST CoV-Risk Comment:Per note documentation 02/20/2024 02/20/2024 7:46 PM EDT 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 02/20/2024 documented as of this encounter Care Teams Frog Or Oyster Farmworker Relationship Specialty Start Date End Date Sharda Henning MD [address] [place] [address] [email or web address] PCP - General Internal Medicine 06/26/17 07/08/17 Antonio Goodrich MD [address] [place] [address] PCP - General Internal Medicine 07/09/17 11/07/18 Maria Del Carmen Rosas MD [address] [place] [address] [email or web address] PCP - General Family Medicine 11/08/18 12/29/18 Maria Del Carmen Rosas MD [address] [place] [address] [email or web address] PCP - General Family Medicine 12/30/18 07/23/19 Efrem Gomez, JACOBO [address] [address] PCP - General 07/24/19 10/26/19 Maria Del Carmen Rosas MD [address] [address] [email or web address] PCP - General Family Medicine 10/27/19 11/02/21 Kristen Jean Baptiste MD [address] [place] [address] [email or web address] PCP - General Family Medicine 11/03/21 Antonio Goodrich MD [address] [place] [address] Insurance Assigned Provider 04/14/17 09/12/19 Antonio Goodrich MD [address] [place] [address] Historical LMR Provider 06/02/17 1 Sharda Henning MD [address] [place] [address] [email or web address] Historical LMR Provider 05/28/17 11/18/20 Lavon Ace, ENGINE DISPATCHER 22 [facility] [address] [place] [address] [email or web address] Historical LMR Provider 06/02/1708/20/21 Moody Hauser MD [address] [place] [address] [email or web address] Historical LMR Provider 06/02/17 08/20/21 Asher Alexander MD [address] [place] [address] [email or web address] Historical LMR Provider 06/02/17 1 Anselmo Sands MD [address] [address] [email or web address] Historical LMR Provider 06/02/17 11/18/20 Juancarlos Mace MD 22 [place] [address] Historical LMR Provider 06/02/17 1 Kelly Villarreal, RN [address] [place] [address] [email or web address] iCMP Scaffold Setter 11/16/17 12/02/17 Gage Bass MD [address] [address] Urology 05/07/20 Maria Del Carmen Rosas MD [address] [address] [email or web address] Insurance Assigned Provider 11/20/20 08/19/22 Lynda Pichardo PA-C [address] [place] [address] [email or web address] Physician Buyer Broker Hematology 10/21/21 Aleyda Blake, OT [address] [place] [address] [email or web address] Transitions Scaffold Setter 06/05/22 2 documented as of this encounter Additional Source Comments The information contained in this document represents components of the legal health record. It is not the complete legal health record.[facility]
--- OUTSIDE RECORDS SUMMARY | 2025-04-09 04:56 | XMS_ITS | Encounter Summary ---
Author Organization [facility] Address [address] [facility] [address] [place] [address] Phone Care Team Providers Care Legal Instructor Name Role Phone Antonio Goodrich MD Unavailable Antonio Goodrich MD Unavailable [phone] Sharda Henning MD Unavailable [phone] Lavon Ace POSTPARTUM RN Unavailable [email or web address] Moody Hauser MD Unavailable Asher Alexander MD Unavailable Anselmo Sands MD Unavailable [phone] Juancarlos Mace MD Unavailable [phone] Antonio Goodrich MD Primary Care Provider [phone] Kelly Villarreal RN Unavailable [phone] Maria Del Carmen Rosas MD Primary Care Provider [phone] Maria Del Carmen Rosas MD Primary Care Provider [phone] Efrem Gomez NP Primary Care Provide r Mraia Del Carmen Rosas MD Primary Care Provider Gage Bass MD Unavailable Maria Del Carmen Rosas MD Unavailable Lynda Pichardo PA-C Unavailable [phone] Kristen Jean Baptiste MD Primary Care Provider Aleyda Blake OT Unavailable Encounter Details Date Type Department Care Team (Late Contact Info) Description 09/18/2017 Transcribe Orders [facility] Specimen Processing [address] [place] [address] Antonio Goodrich MD 170 [facility], 2nd [place] [address] [email or web address] Lower urinary tract infectious disease (Primary Dx); Personal history of PE (pulmonary embolism) Social History Tobacco Use Types Packs/Day Years Used Date Smoking Tobacco: Never Smokeless Tobacco: Never Comments Unknown Sex and Gender Information Value Date Recorded Sex Assigned at Female 09/28/2017 10:36 PM EST Legal Sex Female 6:29 PM EST Gender Identity Female 09/28/2017 10:36 PM EST Sexual Orientation Straight 09/28/2017 10 :36 PM EST 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 Job End Date 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 on file 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 on 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 Not on file Not on file documented as of this encounter Plan of Treatment Upcoming Encounters Date Type Department Care Team (Late Contact Info) Description 04/10/2025 12:00 PM EDT Home Care [facility] [address] [place] [phone] Wilbert Tavares RN [address] [place] [address] 04/14/2025 1:00 AM EDT Home Care Visit [facility] [address] [place] [phone] Wilbert Tavares RN [address] [place] [address] 04/22/2025 Appointment [facility] [address] [place] [phone] Wilbert Tavares RN [address] [place] [address] documented as of this encounter Results * (ABNORMAL) CBC and differential (09/18/2017 4:00 PM EST) WBC 5.51 3.40 - 11.20 K/uL [facility] RBC 4.40 3.80 - 4.80 M/uL [facility] HGB 13.2 12.0 - 15.0 g/dL [facility] HCT 42.8 36.0 - 46.0 % [facility] PLT 320 130 - 400 K/uL [facility] MCV 97.3 79.0 - 98.0 fL [facility] MCH 30.0 27.0 - 34.8 pg [facility] MCHC 30.8(L) 31.5 - 36.0 g/dL [facility] RDW 13.9 10.8 - 14.6 % [facility] MPV 9.8 9.4 - 12.4 fl [facility] NRBC 0.00 /100 WBCs [facility] ABSOLUTE NRBC 0.00 K/uL [facility] DIFF METHOD Auto [facility] NEUTS 61.8 45.30 - 77.70 % [facility] LYMPHS 29.8 12.30 - 39.70 % [facility] MONOS 7.6 4.10 - 12.80 % [facility] EOS 0.2 0 - 7.2 % [facility] BASOS 0.4 0 - 2.80 % [facility] Granulocytes, immature (%) 0.2 0.0 - 0.9 % [facility] ABSOLUTE NEUTS 3.41 1.40 - 7.70 K/uL [facility] ABSOLUTE LYMPHS 1.64 0.60 - 3.20 K/uL [facility] ABSOLUTE MONOS 0.42 0.11 - 0.59 K/uL [facility] ABSOLUTE EOS 0.01 0.01 - 0.50 K/uL [facility] ABSOLUTE BASOS 0.02 0.00 - 0.08 K/uL [facility] Granulocytes, immature 0.01 0.00 - 0.05 K/uL [facility] Blood 09/18/2017 4:00 PM EST 09/18/2017 6:52 PM EST Antonio Goodrich MD LAB BLOOD ORDERABLES Final Result [address] [address] * (ABNORMAL) Sedimentation rate (ESR) (09/18/2017 4:00 PM EST) ESR 38(H) 0 - 30 mm/h [facility] Blood 09/18/2017 4:00 PM EST 09/18/2017 6:52 PM EST Antonio Goodrich MD LAB BLOOD ORDERABLES Final Result Performing Organization Address City/[facility]/ZIP Co de Phone Number [address] [address] * TSH with reflex (09/18/2017 4:00 PM EST) TSH 1.35 0.27 - 4.20 uIU/mL [facility] Blood 09/18/2017 4:00 PM EST 09/18/2017 6:52 PM EST Antonio Goodrich MD LAB BLOOD ORDERABLES Final Result Performing Organization Address City/[facility]/ZIP Co de Phone Number [address] [address] * (ABNORMAL) C-Reactive Protein (09/18/2017 4:00 PM EST) C REACTIVE PROTEIN 0.8(H) 0 - 0.5 mg/L [facility] Blood 09/18/2017 4:00 PM EST 09/18/2017 6:52 PM EST us Antonio Goodrich MD LAB BLOOD ORDERABLES Final Result [facility] [address] [place] [address] documented in this encounter Visit Diagnoses Diagnosis Lower urinary tract infectious disease- Primary Urinary tract infection, site not specified Personal history of PE (pulmonary embolism) Personal history of venous thrombosis and embolism documented in this encounter Additional Health Concerns [...] documented as of this encounter Care Teams Legal Instructor Relationship Specialty Start Date End Date Antonio Goodrich MD [address] [place] [address], 2nd [place] [address] PCP - General Internal Medicine 07/09/17 11/07/18 Maria Del Carmen Rosas MD 15 [facility] [address] [place] [address] [email or web address] PCP - General Family Medicine 11/08/18 12/29/18 Maria Del Carmen Rosas MD [address] [address] [email or web address] PCP - General Family Medicine 12/30/18 07/23/19 Efrem Gomez, JACOBO [address] [place] [address] PCP - General 07/24/19 10/26/19 Maria Del Carmen Rosas MD [address] [place] [address] [email or web address] PCP - General Family Medicine 10/27/19 11/02/21 Kristen Jean Baptiste MD [address] [place] [address] [email or web address] PCP - General Family Medicine 11/03/21 Antonio Goodrich MD [address] [place] [address] Insurance Assigned Provider 04/14/17 09/12/19 Antonio Goodrich MD [address] [place] [address] Historical LMR Provider 06/02/17 1 Sharda Henning MD [address] [place] [address] [email or web address] Historical LMR Provider 05/28/17 11/18/20 Lavon Ace, ANTONIO [facility] [address] [address] [email or web address] Historical LMR Provider 06/02/1708/20/21 Moody Hauser MD 22 [place] [address] [email or web address] Historical LMR Provider 06/02/17 08/20/21 Asher Alexander MD [address] [place] [address] [email or web address] Historical LMR Provider 06/02/17 1 Anselmo Sands MD [address] [address] [email or web address] Historical LMR Provider 06/02/17 11/18/20 Juancarlos Mace MD 22 [place] [address] Historical LMR Provider 06/02/17 1 Kelly Villarreal, RN [address] [place] [address] [email or web address] iCMP Model Home Sales Greeter 11/16/17 12/02/17 Gage Bass MD [address] [address] Urology 05/07/20 Maria Del Carmen Rosas MD [address] [address] [email or web address] Insurance Assigned Provider 11/20/20 08/19/22 Lynda Pichardo PA-C 30 [place] [address] Physician Color Control Operator Hematology 10/21/21 Aleyda Blake, OT [address] [place] [address] [email or web address] Transitions Model Home Sales Greeter 06/05/22 2 documented as of this encounter Additional Source Comments The information contained in this document represents components of the legal health record. It is not the complete legal health record.[facility]
--- OUTSIDE RECORDS SUMMARY | 2025-04-09 04:56 | XMS_ITS | Encounter Summary ---
Author Organization [employer] Address [address] [facility] [address]t [place] [address] Care Team Providers Care Property And Equipment Clerk Name Role Phone Unavailable Primary Care Provider [...]
--- OUTSIDE RECORDS SUMMARY | 2025-04-09 04:56 | XMS_ITS | Encounter Summary ---
Author Organization [facility] Address [address] [employer] [facility] [address] [place] [address] Phone Care Team Providers Care Psychological Tests Sales Agent Name Role Phone Antonio Goodrich MD Unavailable [phone] Antonio Goodrich MD Unavailable Sharda Henning MD Unavailable Lavon Ace SOLUTIONS MANAGER Unavailable [email or web address] Moody Hauser MD Unavailable Asher Alexander MD Unavailable Anselmo Sands MD Unavailable [phone] Juancarlos Mace MD Unavailable [phone] Antonio Goodrich MD Primary Care Provider [phone] Maria Del Carmen Rosas MD Primary Care Provider Maria Del Carmen Rosas MD Primary Care Provider [phone] Efrem Gomez NP Primary Care Provide r Maria Del Carmen Rosas MD Primary Care Provider Gage Bass MD Unavailable Maria Del Carmen Rosas MD Unavailable [phone] Lynda Pichardo PA-C Unavailable [phone] Kristen Jean Baptiste MD Primary Care Provider Aleyda Blake OT Unavailable [phone] Encounter Details Date Type Department Care Team (Late Contact Info) Description 10/07/2018 Procedure Pass [facility], [address] [address] Social History Tobacco Use Types Packs/Day Years [...] 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 [address] [place] [address] Wilbert Tavares RN [address] [place] [address] 04/14/2025 1:00 AM EDT [facility] [address] [place] [address] Wilbert Tavares RN [address] [place] [address] 04/22/2025 Appointment [facility] [address] [place] [address] Wilbert Tavares RN [address] [place] [address] [email or web address] documented as of [...] documented as of this encounter Care Teams Psychological Tests Sales Agent Relationship Specialty Start Date End Date Antonio Goodrich MD [address] [place] [address], 2nd [place] [address] PCP - General Internal Medicine 07/09/17 11/07/18 Maria Del Carmen Rosas MD [address] [address] PCP - General Family Medicine 11/08/18 12/29/18 Maria Del Carmen Rosas MD [address] [address] [email or web address] PCP - General Family Medicine 12/30/18 07/23/19 Efrem Gomez NP [address] [address] PCP - General 07/24/19 10/26/19 Maria Del Carmen Rosas MD [address] [place] [address] [email or web address] PCP - General Family Medicine 10/27/19 11/02/21 Kristen Jean Baptiste MD [address] [place] [address] [email or web address] PCP - General Family Medicine 11/03/21 Antonio Goodrich MD [address] [place] [address] Insurance Assigned Provider 04/14/17 09/12/19 Antonio Goodrich MD [address] [place] [address] Historical LMR Provider 06/02/17 1 Sharda Henning MD [address] [place] [address] [email or web address] Historical LMR Provider 05/28/17 11/18/20 Lavon Ace, SOLUTIONS MANAGER [facility] [address] [address] [email or web address] Historical LMR Provider 06/02/1708/20/21 Moody Hauser MD [address] [place] [address] [email or web address] Historical LMR Provider 06/02/17 08/20/21 Asher Alexander MD [address] [place] [address] [email or web address] Historical LMR Provider 06/02/17 1 Anselmo Sands MD 22 [facility], [address] [address] [email or web address] Historical LMR Provider 06/02/17 11/18/20 Juancarlos Mace MD 22 [place] [address] Historical LMR Provider 06/02/17 1 Gage Bass MD [address] [address] Urology 05/07/20 Maria Del Carmen Rosas MD [address] [place] [address] [email or web address] Insurance Assigned Provider 11/20/20 08/19/22 Lynda Pichardo PA-C [address] [place] [address] [email or web address] Physician Veterinarian Laboratory Animal Care Hematology 10/21/21 Aleyda Blake, OT [address] [place] [address] [email or web address] Transitions Airport Maintenance Laborer 06/05/22 2 documented as of this encounter Additional Source Comments The information contained in this document represents components of the legal health record. It is not the complete legal health record.[facility]
--- OUTSIDE RECORDS SUMMARY | 2025-04-09 04:56 | XMS_ITS | Encounter Summary ---
Author Organization [facility] Address [address] [employer] [facility] [address] [place] [address] Phone Care Team Providers Care Oncology Coordinator Name Role Phone Antonio Goodrich MD Unavailable Antonio Goodrich MD Unavailable [phone] Sharda Henning MD Unavailable [phone] Lavon Ace PUBLIC INFORMATION RELATIONS MANAGER Unavailable [email or web address] Moody Hauser MD Unavailable Asher Alexander MD Unavailable Anselmo Sands MD Unavailable [phone] Juancarlos Mace MD Unavailable [phone] Antonio Goodrich MD Primary Care Provider [phone] Kelly Villarreal RN Unavailable [phone] Maria Del Carmen Rosas MD Primary Care Provider [phone] Maria Del Carmen Rosas MD Primary Care Provider [phone] Efrem Gomez NP Primary Care Provide r Maria Del Carmen Rosas MD Primary Care Provider Gage Bass MD Unavailable Maria Del Carmen Rosas MD Unavailable Lynda Pichardo PA-C Unavailable [phone] Kristen Jean Baptiste MD Primary Care Provider Aleyda Blake OT Unavailable [phone] Encounter Details Date Type Department Care Team (Late st Contact Info) Description 11/06/2017 Transcribe Orders [facility] Specimen Processing [address] [place] [address] Antonio Goodrich MD [address] [facility], 2nd [place] [address] [email or web address] Urinary tract infection without hematuria, site unspecified (Primary Dx) Social History Tobacco Use Types [...] 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 Not on file Not on file documented as of this encounter Plan of Treatment Upcoming Encounters Date Type Department Care Team (Late Contact Info) Description 04/10/2025 12:00 PM EDT [facility] [address] [place] [address] Wilbert Tavares RN [address] [place] [address] 04/14/2025 1:00 AM EDT Home Care Visit [facility] [address] [place] [address] Wilbert Tavares, PAUL [address] [place] [address] 04/22/2025 Appointment [facility] [address] [place] [address] Wilbert Tavares RN [address] [place] [address] [email or web address] documented as of this encounter Results * (ABNORMAL) Urinalysis (11/06/2017 5:38 PM EDT) COLOR DONTA(A) Yellow [facility] CLARITY CLOUDY [facility] GLUCOSE Negative Negative [facility] BILI Negative Negative [facility] KETONES Negative Negative [facility] SPECIFIC GRAVITY 1.015 1.005 - 1.030 [facility] BLOOD 3+(A) Negative [facility] PH 7.0 5.0 - 8.0 [facility] Protein-UA 1+(A) Negative [facility] NITRITE Positive(A) Negative [facility] Leukocyte esterase, ur 2+(A) Negative [facility] Urine (Urine) 11/06/2017 5:3 8 PM EDT 11/06/2017 5:40 PM EDT us Antonio Goodrich MD URINE ORDERABLES Final Resu lt [address] [address] * Urine culture (11/06/2017 5:38 PM EDT) Specimen Source/ Description URINE CATHETER URINE [facility] Special Requests None [facility] GRAM STAIN Moderate GRAM NEGATIVE RODS [facility] Culture/Test >100,000 colony forming units per ml MIXED RAVINDER (3 OR MORE COLONY TYPES) Culture indicates contamination . Please resubmit if necessary. [facility] Report Status 11/08/2017 FINAL [facility] Urine (Urine) 11/06/2017 5:3 8 PM EDT 11/06/2017 5:40 PM EDT Antonio Goodrich MD MICROBIOLOGY - GENERAL ANAHY SANTAMARIA Final Result [facility] [address] [place] [address] documented in this encounter Visit Diagnoses Diagnosis Urinary tract infection without hematuria, site unspecified- Primary documented in this encounter Additional Health [...] documented as of this encounter Care Teams Oncology Coordinator Relationship Specialty Start Date End Date Antonio Goodrich MD [address] [place] [address], 2nd [place] [address] PCP - General Internal Medicine 07/09/17 11/07/18 Maria Del Carmen Rosas MD 15 [facility] [address] [place] [address] PCP - General Family Medicine 11/08/18 12/29/18 Maria Del Carmen Roass MD [address] [address] [email or web address] PCP - General Family Medicine 12/30/18 07/23/19 Efrem Gomez, JACOBO [address] [place] [address] [address] [place] [address] PCP - General 07/24/19 10/26/19 Maria Del Carmen Rosas MD [address] [address] [email or web address] PCP - General Family Medicine 10/27/19 11/02/21 Kristen Jean Baptiste MD [address] [place] [address] [email or web address] PCP - General Family Medicine 11/03/21 Antonio Goodrich MD [address] [place] [address] [email or web address] Insurance Assigned Provider 04/14/17 09/12/19 Antonio Goodrich MD [address] [place] [address] [email or web address] Historical LMR Provider 06/02/17 1 Sharda Henning MD [address] [place] [address] [email or web address] Historical LMR Provider 05/28/17 11/18/20 DbDreashikhaabigail Yuan, ANTONIO [address] [email or web address] Historical LMR Provider 06/02/1708/20/21 Moody Hauser MD 22 [place] [address] [email or web address] Historical LMR Provider 06/02/17 08/20/21 Asher Alexander MD [address] [place] [address] [email or web address] Historical LMR Provider 06/02/17 1 Anselmo Sands MD [address] [address] [email or web address] Historical LMR Provider 06/02/17 11/18/20 Juancarlos Mace MD [address] [place] [address] Historical LMR Provider 06/02/17 1 Kelly Villarreal, PAUL [address] [place] [address] [email or web address] Executive Office Manager 11/16/17 12/02/17 Gage Bass MD [address] [address] Urology 05/07/20 Maria Del Carmen Rosas MD [address] [address] [email or web address] Insurance Assigned Provider 11/20/20 08/19/22 Lynda Pichardo PA-C [address] [place] [address] [email or web address] Physician Director Mobile Hematology 10/21/21 Aleyda Blake, OT [address] [place] [phone] [email or web address] Transitions Executive Office Manager 06/05/22 2 documented as of this encounter Additional Source Comments The information contained in this document represents components of the legal health record. It is not the complete legal health record.[facility]
--- OUTSIDE RECORDS SUMMARY | 2025-04-09 04:56 | XMS_ITS | Encounter Summary ---
Author Organization [employer] Address [address] [facility] 7t [place] [address] Care Team Providers Care Paper Guillotine Operator Name Role Phone Unavailable Primary Care Provider Unavailabl e Reason for Visit * Reason Comments Med Change Request Encounter Details Date Type Department Care Team (Late st Contact Info) Description 01/12/2025 Refill [facility] [address] [facility] [place] [address] Lynda Agee LLD [address] [place] [address] Social History Tobacco Use Types Packs/Day Years Used Date Smoking Tobacco: Never Assessed Comments Unknown Sex and Gender Information Value Date Recorded Sex Assigned at Female 12/28/2022 9:29 AM EDT Legal Sex Female 5:35 PM EDT Gender Identity Female 12/28/2022 9:29 AM EDT Sexual Orientation Don't know 12/28/2022 9: 29 AM EDT documented as of this encounter Miscellaneous Notes * Telephone Encounter - MARIA A Montalvo - 01/20/2025 12:12 PM EDT Apply pea size amount to toothbrush to brush teeth mornings and evenings documented in this encounter Plan of Treatment Not on file documented as of this encounter Visit Diagnoses Not on filedocumented in this encounter
--- OUTSIDE RECORDS SUMMARY | 2025-04-09 04:56 | XMS_ITS | Encounter Summary ---
Author Organization [employer] Address [address] [facility] 7 [place] [address] Care Team Providers Care Business Management Specialist Name Role Phone Unavailable Primary Care Provider [...]
--- OUTSIDE RECORDS SUMMARY | 2025-04-09 04:56 | XMS_ITS | Encounter Summary ---
Author Organization [facility] Address [address] [facility] [address] [place] [address] Phone Care Team Providers Care Squaring Shear Operator Name Role Phone Drea Aceleeroy Yuan WELL DRILL OPERATOR HELPER CABLE TOOL Unavailable [email or web address] Moody Hauser MD Unavailable Maria Del Carmen Rosas MD Primary Care Provider Gage Bass MD Unavailable Maria Del Carmen Rosas MD Unavailable Lynda Pichardo PA-C Unavailable Kristen Jean Baptiste MD Primary Care Provider Aleyda Blake OT Unavailable [phone] Reason for Visit * Reason Onset Date Comments IV Medication 01/02/2021 Encounter Details Date Type Department Care Team (Late st Contact Info) Description 01/02/2021 Telephone [facility] Case Management - Virtual Department [address] [place] [address] Licha Garcia, RN [address] [place], [place] [phone] IV Medication Social History Tobacco Use Types Packs/Day Years Used Date Smoking Tobacco: Never Smokeless Tobacco: Never Alcohol Use Standard Drinks/Week Comments Yes 0 (1 standard drink = 0.6 oz pure alcohol) Nightly beer or shot, controlled by ELECTRO OPTICS ENGINEER Comments Unknown Sex and Gender Information Value Date Recorded Sex Assigned at Female 09/28/2017 10:36 PM EST Legal Sex Female 6:29 PM EST Gender Identity Female 09/28/2017 10:36 PM EST Sexual Orientation Straight 09/28/2017 10 :36 PM EST 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 Job End Date 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 Not on file Not on file Not on 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 Not on file Not on file Not o n file documented as of this encounter Plan of Treatment Upcoming Encounters Date Type Department Care Team (Late st Contact Info) Description 04/10/2025 12:00 PM EDT [facility] [address] [place] [phone] Wilbert Tavares RN [address] [place] [address] 04/14/2025 1:00 AM EDT [facility] [address] [place] [phone] Wilbert Tavares RN [address] [place] [address] 04/22/2025 Appointment [facility] [address] [place] [phone] Wilbert Tavares RN [address] [place] [address] documented as of this encounter Visit Diagnoses [...] documented as of this encounter Care Teams Squaring Shear Operator Relationship Specialty Start Date End Date Maria Del Carmen Rosas MD [address] [address] [email or web address] PCP - General Family Medicine 10/27/19 11/02/21 Kristen Jean Baptiste MD [address] [place] [address] [email or web address] PCP - General Family Medicine 11/03/21 Lavon Ace, ANTONIO [address] [place] [address] [address] [email or web address] Historical LMR Provider 06/02/1708/20/21 Moody Hauser MD 22 [place] [address] [email or web address] Historical LMR Provider 06/02/17 08/20/21 Gage Bass MD [address] [address] Urology 05/07/20 Maria Del Carmen Rosas MD [address] [address] [email or web address] Insurance Assigned Provider 11/20/20 08/19/22 Lynda Pichardo PA-C [address] [place] [address] Physician Sharepoint Solutions Developer Hematology 10/21/21 Aleyda Blake, OT [address] [place] [address] [email or web address] Transitions Buying Agent 06/05/22 2 documented as of this encounter Additional Source Comments The information contained in this document represents components of the legal health record. It is not the complete legal health record.[facility]
[2025-04-09 05:06] LABS: Alanine Aminotransferase 19 U/L (0-31); Albumin Level 4.0 g/dL (3.5-5.0); Alkaline Phosphatase 74 U/L (39-117); Anion Gap 18 (12-20); Aspartate Amino Transferase 18 U/L (5-31); Blood Urea Nitrogen 13 mg/dL (9-16); Calcium 9.0 mg/dL (8.4-10.2); Carbon Dioxide 24 mmol/L (22-29); Chloride 102 mmol/L (96-108); Creatinine Clr Calc Pharmacy 78.9; Estimated Glomerular Filt Rate > 60; Potassium 3.9 mmol/L (3.3-5.1); Sodium 140 mmol/L (135-145); Total Protein 7.8 g/dL (6.5-8.0)
[2025-04-09 05:12] LABS: Troponin-I High Sensitivity 5.0 ng/L (<3.5-17.0)
[2025-04-09 05:29] LABS: Appearance Urine Turbid; Glucose Urine UA Negative (Negative); PH 8.5 (5.0-9.0); Specific Gravity - Urine 1.015 (1.005-1.025); UMIC TRIGGER UACC YES
[2025-04-09 05:34] LABS: UACC Culture Trigger YES
[2025-04-09] MEDS: SODIUM CHLORIDE 2886 ML IV (05:38)
--- NOTE | 2025-04-09 06:10 | PC.NURSE ---
Pt arrived via ambulance with eyes closed, slow to respond, hot to the touch, reporting that she has not been feeling well all day Sunday. The pt is noted to have an 18F Durette Tran that her VNA manages and was confirmed via a telehealth visit note with Dr. Walden on 04/02. Staff to the bedside, pt noted to be tachycardic, tachypnic and febrile. Staff made MD aware and sepsis protocol initiated per documentation. The pt has a history of MS and is known to be a difficult stick, after many attempts staff was able to obtain an US guided #22G to the right forearm and that is the only access we have at this time. For this reason the line has been secured and IVF infusing at this time are running in a little slower than would allow for the bolus to be given within the hour. Despite how it reads in the MAR, the patient is only to receive a TOTAL VOLUME OF 2,886mls based upon the 30ml/kg IVF sepsis protocol. At 0511 this RN hung 1L of NS based upon the initial order at the same time as the ceftriaxone was administered. After which time, Dr. Shane entered a separate order for the full 2,886mls of IVF to be given. This RN was able to confirm with Dr Shane that the patient was only to receive 2,886mls, not 3,886mls as it may appear on the MAR. This note is to clarify that despite how the orders are entered/appear the patient only received a total of 2,886mls of IVF.
[2025-04-09 06:48] LABS: Reflex Lactate? Lactic Acid Added
--- NOTE | 2025-04-09 07:44 | PC.NURSE ---
Pt AxO x 3. able to state needs. skin pale, warm, dry. NSR on monitor. cooling blanket remains in place. Dr Solano aware of persistent temp despite tylenol and cooling blanket, Awaits repeat lactic acid. Pt's only complaint is fatigue. unlabored resp. is bedbound
--- NOTE | 2025-04-09 07:55 | PC.NURSE ---
pt is declning CT. states she's had too many.
[2025-04-09 08:50] LABS: ~Lactic Acid-LAB USE ONLY 3.5 mmol/L (0.5-2.0)
--- NOTE | 2025-04-09 09:49 | PHA.MEDREC ---
Addendum entered by Olivia Buitrago 04/09/25 13:33: Spoke to patient and with a lot of prompting because she kept falling asleep, patient was able to confirm her medications. Patient states she takes Acetominophen 1,000 mg ( 2x 500 mg) BID at lunch and bedtime and Acetominophen 500 mg at breakfast and bedtime, Fosfomycin 3 gm packet is PRN UTI( days very depending on when she starts it( she is not currently taking at the moment), Vitamin C 1,000mg BID even though claims has QD. Addendum entered by Dominick Estrada, Irina 04/09/25 10:29: med rec checked by [facility] Original Note: Pharmacy Consult ? Medication Reconciliation Pharmacy has completed the medication reconciliation. Attempted to speak with patient however she only wakes to name then falls back to sleep. Utilized claims and discharge packet from 03/25/25 to confirm med list.
[2025-04-09 10:25] LABS: Reflex Lactate? 2 Y
--- NOTE | 2025-04-09 10:37 | PC.NURSE ---
Medicated requested from pharmacy at 10:37 AM. To be medicated upon receipt. Patient is sleeping at this time.
[2025-04-09 10:45] LABS: Cancel Lactic Acid Canceled
--- NOTE | 2025-04-09 11:39 | P.HPHOSP_ITS ---
History of Present Illness Date of Service: 04/09/25 Chief Complaint: fevers, chills 70F PMH dvt/pe on low dose xarelto, history of NM and cardiac arrest, trigeminal neuralgia, osteoporosis, Parkinson's, hypothyroid, hypertension, CVA, chronic urinary retention with chronic Tran and UTI, multiple sclerosis wheelchair bound presented with fever and chills. Patient called EMS due to feeling lethargic, rigors chills 1 day prior to presentation. Patient has history of recurrent UTIs due to her indwelling Tran catheter. Denies chest pain shortness breath. In ED noted to be septic with positive UA. Review of Systems 2 Review of Systems: Yes all other systems are reviewed and are negative [facility] Medical History Bacteremia due to Enterococcus Recurrent UTI (urinary tract infection) Neurogenic bladder Urinary tract infection Wheelchair dependence Sacral decubitus ulcer Pulmonary emboli Cardiac arrest History of trigeminal neuralgia COVID-19 vaccine series completed Osteoporosis Neurogenic urinary bladder disorder NENO (obstructive sleep apnea) Parkinson's variant of multiple system atrophy Thyroid disease History of neurogenic bladder History of MRSA infection Hx of lymphoma Arthritis Back pain Hx pulmonary embolism DVT (deep venous thrombosis) Anemia Hiatal hernia Tran catheter in place Bladder stones Multiple sclerosis CVA (cerebral vascular accident) Myocardial infarction HTN (hypertension) Painful bladder spasm Surgical History Hx of hysterectomy Hx of lumpectomy Hx of vitrectomy History of intraocular lens implant Hx of adenoidectomy Hx of tonsillectomy Hx of laminectomy History of cystoscopy History of biopsy of bladder History of bladder surgery H/O colonoscopy Social History Household Members: None Housing: Apartment Are you a primary senior caregiver to a significant other at home: No Do you presently have visiting nurse or other home services: Yes Patient Tobacco Use Status: Never used Tobacco Second Hand Smoke Exposure: No Advance Directives Date on File: 08/02/21 service: No Current occupational status: disabled Meds Allergies Allergy/AdvReac Type Severity Reaction Status Date / Time mercury (elemental) Allergy Severe Anaphylaxis Verified 04/09/25 04:38 Penicillins Allergy Severe Hives Verified 04/09/25 04:38 bupropion (From Wellbutrin) Allergy Intermediate Hives Verified 04/09/25 04:38 Iodinated Contrast Media (IV Allergy Intermediate Hives Verified 04/09/25 04:38 Contrast Dye) morphine Allergy Intermediate Hives Verified 04/09/25 04:38 metoclopramide (From Reglan) AdvReac Intermediate Parkinson Verified 04/09/25 04:38 syndrome Active Medications: Current Medications Acetaminophen (Acetaminophen 325 Mg Tablet) 650 mg PO Q6H PRN PRN Reason: Pain, Mild 1-3,fever,headache Baclofen (Baclofen 20 Mg Tablet) 20 mg PO TID JUWAN Calcium Carbonate (Calcium Carbonate 750 Mg Tab.Chew) 750 mg PO Q4H PRN PRN Reason: Heartburn Ceftriaxone Sodium (Ceftriaxone Sodium 1 Gm Vial) 1 gm IVPUSH Q24H [facility] Gabapentin (Gabapentin 300 Mg Capsule) 300 mg PO TID [facility] Levothyroxine Sodium (Levothyroxine Sodium 88 Mcg Tablet) 88 mcg PO DAILY@0600 [facility] Magnesium Hydroxide (Milk Of Magnesia 30 Ml Oral.Susp) 30 ml PO DAILY PRN PRN Reason: Constipation Melatonin (Melatonin 3 Mg Tablet) 6 mg PO BEDTIME PRN PRN Reason: Insomnia Modafinil (Modafinil 100 Mg Tablet) 200 mg PO BID [facility] Rivaroxaban (Rivaroxaban 10 Mg Tablet) 10 mg PO DAILY [facility] Silver Sulfadiazine (Silver Sulfadiazine 1 % Cream 20 Gm Tube) 1 appl TOPICAL DAILY [facility] Sodium Chloride (0.9 % Sodium Chloride Flush 3 Ml Syringe) 3 ml IVFLUSH QSHIFT [facility] Last Admin: 04/09/25 07:43 Dose: Not Given Home Medications ?Medication ?Instructions ?Recorded ?Confirmed ?Last Taken ?Type furosemide 40 mg tablet 40 mg PO DAILY 06/18/2003/1403/18/24 History levothyroxine 88 mcg tablet 88 mcg PO DAILY@0600 06/1804/09/25 03/18/24 History lisinopril 5 mg tablet 5 mg PO DAILY 06/18/2004/0903/18/24 History cholecalciferol (vitamin D3) 50 1 cap PO DAILY 2 04/09/25 03/18/24 History mcg (2,000 unit) capsule gabapentin 300 mg capsule 300 mg PO TID 07/12/2304/0903/18/24 History modafinil 200 mg tablet (Provigil) 200 mg PO BID 07/1204/09/25 03/18/24 History baclofen 20 mg tablet 20 mg PO TID 03/18/2403/18/24 History metronidazole 0.75 % topical cream 1 appl topical BID 03/18/24 04/09/25 03/18/24 History krmtgekqwzzh-tljpicdp-ttbtyc 1 tab PO DAILY 03/18/24 0 04/09/25 03/18/24 History tablet (Multivitamin 50 Plus tablet) rivaroxaban 10 mg tablet (Xarelto) 10 mg PO DAILY 02/0304/09/25 03/18/24 History silver sulfadiazine 1 % topical 1 appl topical DAILY 0 03/18/24 04/09/25 03/18/24 History cream fenofibrate 40 mg tablet 40 mg PO DAILY 04/02/2503/14 Unknown History acetaminophen 500 mg capsule 500 mg PO QID PRN pain 04/09/25 Unknown History (Mapap (acetaminophen)) hydrocortisone 2.5 % topical cream 1 appl topical BID 04/09/25 04/09/25 Unknown History with perineal applicator psyllium husk 0.4 gram capsule 0.4 g PO DAILY 04/09/25 04/09/25 Unknown History triamcinolone acetonide 0.1 % 1 appl topical BID 04/0904/09/25 Unknown History topical cream Physical Exam 2 Vital Signs and Narrative: Vital Signs: Last Vital Signs Temp 100.3 F 04/09/25 08:45 Pulse 95 04/09/25 08:45 Resp 21 H 04/09/25 08:45 BP 105/52 L 04/09/25 08:45 Pulse Ox 95 04/09/25 08:45 O2 Del Method Room Air 04/09/25 08:45 BMI result Body Mass Index 35.3 Alert oriented x3, diffuse weakness, no acute distress, Tran catheter in place Results Labs 04/09/25 04:40 04/09/25 04:40 Labs: Laboratory Results - last 24 hr 04/09/25 04/09/25 04/09/25 04:40 05:12 08:19 MCV 94.5 MCH 30.7 MCHC 32.5 RDW 13.1 Plt Count 343 MPV 10.0 Immature Gran % (Auto) 0.6 H Neut % (Auto) 88.3 H Lymph % (Auto) 6.3 L [place] % (Auto) 4.2 Eos % (Auto) 0.4 Baso % (Auto) 0.2 Lymph # (Auto) 1.3 [place] # (Auto) 0.9 Eos # (Auto) 0.1 Baso # (Auto) 0.1 Abs Immat Gran (auto) 0.13 H Absolute Neuts (auto) 18.5 H Absolute Nucleated RBC 0.000 Nucleated RBC % (auto) 0.0 Hold Purple Top SEE NOTE Anion Gap 18 Estim Creat Clear Calc 78.9 Estimated GFR > 60 Random Glucose 163 H Lactic Acid 4.3 H* Lactic Acid F/U @ 2Hr 3.5 H* Calcium 9.0 Total Bilirubin 0.3 AST 18 ALT 19 Alkaline Phosphatase 74 Total Protein 7.8 Albumin 4.0 Hold Red Top See Note Hold Yellow Top See Note Urine Color Yellow Urine Appearance Turbid Urine pH 8.5 Ur Specific [place] 1.015 Urine Protein 30 (1+) H Urine Glucose (UA) Negative Urine Ketones Negative Urine Blood Small (1+) H Urine Nitrite Positive H Ur Leukocyte Esterase Large (3+) H Urine RBC 3-5 H Urine WBC 21-50 Ur Squamous Epith Cells 0-2 Urine Bacteria 4+ Hyaline Casts 11-20 Assessment and Plan (1) Acute UTI: Status: Acute Plan 70F PMH dvt/pe on low dose xarelto, history of NM and cardiac arrest, trigeminal neuralgia, osteoporosis, Parkinson's, hypothyroid, hypertension, CVA, chronic urinary retention with chronic Tran and UTI, multiple sclerosis wheelchair bound presented with fever and chills Severe sepsis due to recurrent urinary tract infection due to chronic indwelling catheter due to urinary retention from multiple sclerosis Continue ceftriaxone, follow up cultures History of DVT and PE Continue Xarelto Hypothyroid Levothyroxine Multiple sclerosis, wheelchair-bound Continue baclofen DVT prophylaxis with Xarelto DNR/DNI Quality Stroke Does the patient have a stroke diagnosis?: No VTE Prior VTE?: Yes VTE Risk Level:: Medical - moderate - high VTE Device Contraindication: Treatment Not Indicated VTE Drug Contraindication: N/A - Med Ordered
--- NOTE | 2025-04-09 11:45 | MHC.CM.PN ---
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
[2025-04-09] MEDS: Rivaroxaban 10 MG TABLET PO (16:55)
[2025-04-09] MEDS: 0.9 % Sodium Chloride Flush 3 ML SYRINGE IVFLUSH ×2 (16:56→20:51)
[2025-04-10] VITALS (7 sets, daily range): BP systolic 118–138; BP diastolic 57–71; PULSE 73–87; RESP 18–20; TEMP 36.3–37.2; O2SAT 93–98; BMI 35.8
[2025-04-10 07:49] LABS: MANUAL DIFF FLAG NO
[2025-04-10 07:54] LABS: Hematocrit 33.2 % (37.0-47.0); Hemoglobin 10.8 g/dl (12.0-16.0); Imm Gran Abs Auto 0.07 X10*3/uL (0.00-0.03); Imm Gran Pct Auto 0.6 % (0.0-0.4); Lymphocytes Absolute Auto 1.4 X10*3/uL (1.2-4.9); Mean Corpuscular HGB Conc 32.5 g/dl (31.0-35.0); Mean Corpuscular Hemoglobin 30.7 pg (27.0-33.0); Mean Corpuscular Volume 94.3 fL (80.0-98.0); NRBC Abs Auto 0.000 X10*3/uL (0.0-0.012); NRBC Pct Auto 0.0 /100WBC (0.0-0.2); Platelet Count 270 X10*3/uL (160-400); Red Blood Count 3.52 X10*6/uL (4.20-5.50); White Blood Count 11.2 X10*3/uL (4.8-10.8)
[2025-04-10 08:15] LABS: Alanine Aminotransferase 12 U/L (0-31); Albumin Level 3.5 g/dL (3.5-5.0); Alkaline Phosphatase 68 U/L (39-117); Anion Gap 12 (12-20); Aspartate Amino Transferase 17 U/L (5-31); Blood Urea Nitrogen 10 mg/dL (9-16); Calcium 8.4 mg/dL (8.4-10.2); Carbon Dioxide 24 mmol/L (22-29); Chloride 109 mmol/L (96-108); Creatinine Clr Calc Pharmacy 91.8; Estimated Glomerular Filt Rate > 60; Potassium 3.7 mmol/L (3.3-5.1); Sodium 141 mmol/L (135-145); Total Protein 7.0 g/dL (6.5-8.0)
--- NOTE | 2025-04-10 08:46 | HO.PM.IMPN ---
Subjective Subjective Date of Service: 04/10/25 Interval History: fevers improving Physical Exam Exam: Exam: Alert oriented x3, diffuse weakness, no acute distress, Tran catheter in place Vital Signs: Vital Signs: Last Vital Signs Temp 97.8 F 04/10/25 07:49 Pulse 85 04/10/25 07:49 Resp 20 04/10/25 07:49 BP 118/57 L 04/10/25 07:49 Pulse Ox 93 04/10/25 07:49 O2 Del Method Room Air 04/10/25 07:49 BMI result Body Mass Index 35.8 Objective Data Active Medications Acetaminophen (Acetaminophen 325 Mg Tablet) 650 mg PO Q6H PRN PRN Reason: Pain, Mild 1-3,fever,headache Last Admin: 04/09/25 16:55 Dose: 650 mg Documented By: JOSH Ascorbic Acid (Ascorbic Acid 500 Mg Tablet) 1,000 mg PO BID [facility] Last Admin: 04/09/25 21:00 Dose: Not Given Documented By: SARAH Non-Admin Reason: Patient Refused Baclofen (Baclofen 20 Mg Tablet) 20 mg PO TID [facility] Last Admin: 04/09/25 20:51 Dose: 20 mg Documented By: SARAH Calcium Carbonate (Calcium Carbonate 750 Mg Tab.Chew) 750 mg PO Q4H PRN PRN Reason: Heartburn Ceftriaxone Sodium (Ceftriaxone Sodium 1 Gm Vial) 1 gm IVPUSH Q24H [facility] Last Admin: 04/10/25 05:47 Dose: 1 gm Documented By: SARAH Gabapentin (Gabapentin 300 Mg Capsule) 300 mg PO TID [facility] Last Admin: 04/09/25 20:51 Dose: 300 mg Documented By: SARAH Levothyroxine Sodium (Levothyroxine Sodium 88 Mcg Tablet) 88 mcg PO DAILY@0600 [facility] Last Admin: 04/10/25 05:47 Dose: 88 mcg Documented By: SARAH Magnesium Hydroxide (Milk Of Magnesia 30 Ml Oral.Susp) 30 ml PO DAILY PRN PRN Reason: Constipation Melatonin (Melatonin 3 Mg Tablet) 6 mg PO BEDTIME PRN PRN Reason: Insomnia Modafinil (Modafinil 100 Mg Tablet) 200 mg PO BID [facility] Last Admin: 04/09/25 21:00 Dose: Not Given Documented By: SARAH Non-Admin Reason: Patient Refused Rivaroxaban (Rivaroxaban 10 Mg Tablet) 10 mg PO DAILY@1700 [facility] Last Admin: 04/09/25 16:55 Dose: 10 mg Documented By: JOSH Silver Sulfadiazine (Silver Sulfadiazine 1 % Cream 20 Gm Tube) 1 appl TOPICAL DAILY [facility] Sodium Chloride (0.9 % Sodium Chloride Flush 3 Ml Syringe) 3 ml IVFLUSH QSHIFT [facility] Last Admin: 04/09/25 20:51 Dose: 3 ml Documented By: ALLYARTB Labs 04/10/25 07:05 04/10/25 07:05 Labs: Laboratory Results - last 24 hr 04/09/25 04/10/25 08:19 07:05 MCV 94.3 MCH 30.7 MCHC 32.5 RDW 13.2 Plt Count 270 MPV 10.2 Immature Gran % (Auto) 0.6 H Neut % (Auto) 80.5 H Lymph % (Auto) 12.5 L [place] % (Auto) 5.2 Eos % (Auto) 0.9 Baso % (Auto) 0.3 Lymph # (Auto) 1.4 [place] # (Auto) 0.6 Eos # (Auto) 0.1 Baso # (Auto) 0.0 Abs Immat Gran (auto) 0.07 H Absolute Neuts (auto) 9.0 H Absolute Nucleated RBC 0.000 Nucleated RBC % (auto) 0.0 Anion Gap 12 Estim Creat Clear Calc 91.8 Estimated GFR > 60 Random Glucose 133 H Lactic Acid F/U @ 2Hr 3.5 H* Calcium 8.4 D Total Bilirubin 0.2 AST 17 ALT 12 Alkaline Phosphatase 68 Total Protein 7.0 Albumin 3.5 Microbiology Microbiology Results: Microbiology 04/09/25 04:40 Blood Culture - Preliminary Blood - Venous No growth after 24 hours. 04/09/25 04:40 Blood Culture - Preliminary Blood - Venous No growth after 24 hours. Assessment and Plan (1) Acute UTI: Status: Acute Plan 70F PMH dvt/pe on low dose xarelto, history of VT and cardiac arrest, trigeminal neuralgia, osteoporosis, Parkinson's, hypothyroid, hypertension, CVA, chronic urinary retention with chronic Tran and UTI, multiple sclerosis wheelchair bound presented with fever and chills Severe sepsis due to recurrent urinary tract infection due to chronic indwelling catheter due to urinary retention from multiple sclerosis Continue ceftriaxone, follow up cultures check ct abd History of DVT and PE Continue Xarelto Hypothyroid Levothyroxine Multiple sclerosis, wheelchair-bound Continue baclofen DVT prophylaxis with Xarelto DNR/DNI reason for continued hospitalization:cultures Quality Stroke Does the patient have a stroke diagnosis?: No VTE Prior VTE?: Yes VTE Risk Level:: Medical - moderate - high VTE Device Contraindication: Treatment Not Indicated VTE Drug Contraindication: N/A - Med Ordered
[2025-04-10] MEDS: 0.9 % Sodium Chloride Flush 3 ML SYRINGE IVFLUSH ×3 (09:24→22:11)
--- NOTE | 2025-04-10 11:26 | MHC.CM.PN ---
PER MD ROUNDS, PT NOT MEDICALLY CLEARED, CULTURE PENDING POSSIBLE DC TOMORROW DCP: HOME [facility]ME [facility] AND [facility] BLS TRANSPORT
--- NOTE | 2025-04-10 13:29 | MHC.CLN ---
PT WITH INCREASED NUTRITION RISK R/T PRESSURE INJURY DIET RX: REGULAR DIET RECOMMEND ADDING ENSURE BID TO PROMOTE WOUND HEALING SUPPLEMENT TO PROVIDE 700KCALS, 40G PROTEIN MONITOR PO INTAKE AND ENCOURAGE SUPPLEMENTS SEE FULL ASSESSMENT
--- NOTE | 2025-04-10 14:53 | P.CNID_ITS ---
History of Present Illness Data of Consult Service Date: 04/10/25 Requesting physician: Nestor Solano Primary Care Provider: Kristen Jean Baptiste MD HPI Reason for consult: chills,sepsis She presents with chills and temperature 103.8. She has no abdominal pain at this time She has MS and is wheelchair bound. Review of Systems 2 Review of Systems: Yes all other systems are reviewed and are negative PMFSH Past Medical History Medical History Bacteremia due to Enterococcus Recurrent UTI (urinary tract infection) Neurogenic bladder Urinary tract infection Wheelchair dependence Sacral decubitus ulcer Pulmonary emboli Cardiac arrest History of trigeminal neuralgia COVID-19 vaccine series completed Osteoporosis Neurogenic urinary bladder disorder NENO (obstructive sleep apnea) Parkinson's variant of multiple system atrophy Thyroid disease History of neurogenic bladder History of MRSA infection Hx of lymphoma Arthritis Back pain Hx pulmonary embolism DVT (deep venous thrombosis) Anemia Hiatal hernia Tran catheter in place Bladder stones Multiple sclerosis CVA (cerebral vascular accident) Myocardial infarction HTN (hypertension) Painful bladder spasm Family History Family history: reviewed and not pertinent Surgical History Surgical History Hx of hysterectomy Hx of lumpectomy Hx of vitrectomy History of intraocular lens implant Hx of adenoidectomy Hx of tonsillectomy Hx of laminectomy History of cystoscopy History of biopsy of bladder History of bladder surgery H/O colonoscopy Social History Social History Household Members: None Housing: House Are you a primary resident care aid to a significant other at home: No Do you presently have visiting nurse or other home services: Yes Patient Tobacco Use Status: Never used Tobacco Second Hand Smoke Exposure: No Advance Directives Date on File: 08/02/21 service: No Current occupational status: disabled Meds Allergies Allergy/AdvReac Type Severity Reaction Status Date / Time mercury (elemental) Allergy Severe Anaphylaxis Verified 04/09/25 04:38 Penicillins Allergy Severe Hives Verified 04/09/25 04:38 bupropion (From Wellbutrin) Allergy Intermediate Hives Verified 04/09/25 04:38 Iodinated Contrast Media (IV Allergy Intermediate Hives Verified 04/09/25 04:38 Contrast Dye) morphine Allergy Intermediate Hives Verified 04/09/25 04:38 metoclopramide (From Reglan) AdvReac Intermediate Parkinson Verified 04/09/25 04:38 syndrome Active Medications: Current Medications Acetaminophen (Acetaminophen 325 Mg Tablet) 650 mg PO Q6H PRN PRN Reason: Pain, Mild 1-3,fever,headache Last Admin: 04/10/25 09:24 Dose: 650 mg Ascorbic Acid (Ascorbic Acid 500 Mg Tablet) 1,000 mg PO BID [facility] Last Admin: 04/10/25 09:22 Dose: 1,000 mg Baclofen (Baclofen 20 Mg Tablet) 20 mg PO TID [facility] Last Admin: 04/10/25 14:33 Dose: 20 mg Calcium Carbonate (Calcium Carbonate 750 Mg Tab.Chew) 750 mg PO Q4H PRN PRN Reason: Heartburn Ceftriaxone Sodium (Ceftriaxone Sodium 1 Gm Vial) 1 gm IVPUSH Q24H [facility] Last Admin: 04/10/25 05:47 Dose: 1 gm Fenofibrate (Fenofibrate 54 Mg Tablet) 54 mg PO DAILY [facility] Gabapentin (Gabapentin 300 Mg Capsule) 300 mg PO TID [facility] Last Admin: 04/10/25 14:33 Dose: 300 mg Hydrocortisone (Hydrocortisone 2.5 % Rectal Cr 30 Gm Tube) 1 appl TOPICAL BID [facility] Levothyroxine Sodium (Levothyroxine Sodium 88 Mcg Tablet) 88 mcg PO DAILY@0600 [facility] Last Admin: 04/10/25 05:47 Dose: 88 mcg Linezolid (Linezolid 600 Mg Tablet) 600 mg PO Q12H [facility] Last Admin: 04/10/25 14:33 Dose: 600 mg Magnesium Hydroxide (Milk Of Magnesia 30 Ml Oral.Susp) 30 ml PO DAILY PRN PRN Reason: Constipation Melatonin (Melatonin 3 Mg Tablet) 6 mg PO BEDTIME PRN PRN Reason: Insomnia Modafinil (Modafinil 100 Mg Tablet) 200 mg PO BID [facility] Last Admin: 04/10/25 09:23 Dose: Not Given Rivaroxaban (Rivaroxaban 10 Mg Tablet) 10 mg PO DAILY@1700 [facility] Last Admin: 04/09/25 16:55 Dose: 10 mg Silver Sulfadiazine (Silver Sulfadiazine 1 % Cream 20 Gm Tube) 1 appl TOPICAL DAILY [facility] Last Admin: 04/10/25 09:26 Dose: Not Given Sodium Chloride (0.9 % Sodium Chloride Flush 3 Ml Syringe) 3 ml IVFLUSH QSHIFT [facility] Last Admin: 04/10/25 14:33 Dose: 3 ml Triamcinolone Acetonide (Triamcinolone Acet 0.1 % Cream 15 Gm Tube) 1 appl TOPICAL BID JUWAN; Protocol Vitamin D (Cholecalciferol (Vitamin D3) 25 Mcg Tablet) 50 mcg PO DAILY [facility] Home Medications ?Medication ?Instructions ?Recorded ?Confirmed ?Last Taken ?Type furosemide 40 mg tablet 40 mg PO DAILY 06/18/2003/1403/18/24 History levothyroxine 88 mcg tablet 88 mcg PO DAILY@0600 06/1804/09/25 03/18/24 History lisinopril 5 mg tablet 5 mg PO DAILY 06/18/2004/0903/18/24 History cholecalciferol (vitamin D3) 50 1 cap PO DAILY 2 04/09/25 03/18/24 History mcg (2,000 unit) capsule gabapentin 300 mg capsule 300 mg PO TID 07/12/2304/0903/18/24 History modafinil 200 mg tablet (Provigil) 200 mg PO BID 07/1204/09/25 03/18/24 History baclofen 20 mg tablet 20 mg PO TID 03/18/2403/18/24 History metronidazole 0.75 % topical cream 1 appl topical BID 03/18/24 04/09/25 03/18/24 History [id number] 1 tab PO DAILY 03/18/24 0 04/09/25 03/18/24 History tablet (Multivitamin 50 Plus tablet) rivaroxaban 10 mg tablet (Xarelto) 10 mg PO DAILY 02/0304/09/25 03/18/24 History silver sulfadiazine 1 % topical 1 appl topical DAILY 0 03/18/24 04/09/25 03/18/24 History cream fenofibrate 40 mg tablet 40 mg PO DAILY 04/02/2503/14 Unknown History acetaminophen 500 mg capsule 1,000 mg PO BID@0900,1700 PRN Pain 04/09/25 04/09/25 Unknown History (Mapap (acetaminophen)) acetaminophen 500 mg capsule 500 mg PO BID@1200,2100 P RN pain 04/09/25 04/09/25 Unknown History (Mapap (acetaminophen)) ascorbic acid (vitamin C) 1,000 mg 1,000 mg PO BID 04/09/25 Unknown History tablet (Vitamin C) hydrocortisone 2.5 % topical cream 1 appl topical BID 04/09/25 04/09/25 Unknown History with perineal applicator psyllium husk 0.4 gram capsule 0.4 g PO DAILY 04/09/25 04/09/25 Unknown History triamcinolone acetonide 0.1 % 1 appl topical BID 04/0904/09/25 Unknown History topical cream Physical Exam 2 Vital Signs: Vital Signs: Last Vital Signs Temp 99.0 F 04/10/25 11:38 Pulse 87 04/10/25 11:38 Resp 20 04/10/25 11:38 BP 133/60 04/10/25 11:38 Pulse Ox 93 04/10/25 11:38 O2 Del Method Room Air 04/10/25 11:38 BMI result Body Mass Index 35.8 Const: General: cooperative HEENT: Head: Yes normal to inspection Face and sinus: Yes normal facial exam Mouth: Normal oral and palatal mucosa present Teeth and gingiva: d entition normal Eyes: General: appearance normal, both eyes and all related structures P upils: Equal, round and reactive pupils present Resp: Effort & Inspection: normal respiratory effort Cardio: Rate: regular rate Rhythm: regular rhythm GI: Palpation (GI): Soft to palpation and nontender : General: Yes no CVA tenderness Back/Spine/Pelvis: Back: no CVA tenderness Skin: General skin exam: no rashes or lesions noted Neuro: General: moves all extremities Cranial nerves: Yes Equal, round and reactive pupils present Extrem: Other: not able to move LE Psych: Appearance: grossly normal Results Labs 04/10/25 07:05 04/10/25 07:05 Labs: Short CBC 04/10/25 Range/Units 07:05 WBC 11.2 H (4.8-10.8) X10*3/uL Hgb 10.8 L (12.0-16.0) g/dl Hct 33.2 L (37.0-47.0) % Plt Count 270 (160-400) X10*3/uL BMP 04/10/25 07:05 Sodium 141 Potassium 3.7 Chloride 109 H Carbon Dioxide 24 BUN 10 Creatinine 0.65 Calcium 8.4 D Liver Function 04/10/25 Range/Units 07:05 Total Bilirubin 0.2 (0.0-1.0) mg/dL AST 17 (5-31) U/L ALT 12 (0-31) U/L Alkaline Phosphatase 68 (39-117) U/L Albumin 3.5 (3.5-5.0) g/dL Microbiology Microbiology Results: Microbiology 04/09/25 Unknown Urine clean catch - Clean Catch Midstream Urine Culture - Final 04/09/25 04:40 Blood - Venous Blood Culture - Preliminary No growth after 24 hours. 04/09/25 04:40 Blood - Venous Blood Culture - Preliminary No growth after 24 hours. Assessment and Plan (1) Neurogenic bladder: Status: Acute (2) Recurrent UTI (urinary tract infection): Status: Acute Plan She has mixed maya. She has no organism in blood. Would give linezolid and cephalosporin for 14 days in case urine culture didnt grow.
[2025-04-10] MEDS: Rivaroxaban 10 MG TABLET PO (16:46)
[2025-04-10] MEDS: Triamcinolone Acet 0.1 % Cream 15 GM TUBE 1 APPL TOPICAL (22:08)
[2025-04-11] VITALS: BP 149/69; PULSE 88; RESP 20; TEMP 36.5; O2SAT 96
[2025-04-11 03:42] VITALS: BP 150/79; PULSE 71; RESP 20; TEMP 36.6; O2SAT 95
[2025-04-11 07:08] VITALS: BP 140/73; PULSE 70; RESP 18; TEMP 36.2; O2SAT 97
[2025-04-11 08:27] LABS: Hematocrit 35.1 % (37.0-47.0); Hemoglobin 11.2 g/dl (12.0-16.0); Mean Corpuscular HGB Conc 31.9 g/dl (31.0-35.0); Mean Corpuscular Hemoglobin 30.4 pg (27.0-33.0); Mean Corpuscular Volume 95.1 fL (80.0-98.0); NRBC Abs Auto 0.000 X10*3/uL (0.0-0.012); NRBC Pct Auto 0.0 /100WBC (0.0-0.2); Platelet Count 274 X10*3/uL (160-400); Red Blood Count 3.69 X10*6/uL (4.20-5.50); White Blood Count 6.8 X10*3/uL (4.8-10.8)
[2025-04-11 08:40] LABS: Anion Gap 15 (12-20); Blood Urea Nitrogen 14 mg/dL (9-16); Calcium 8.7 mg/dL (8.4-10.2); Carbon Dioxide 20 mmol/L (22-29); Chloride 110 mmol/L (96-108); Creatinine Clr Calc Pharmacy 87.7; Estimated Glomerular Filt Rate > 60; Potassium 3.5 mmol/L (3.3-5.1); Sodium 141 mmol/L (135-145)
[2025-04-11] MEDS: 0.9 % Sodium Chloride Flush 3 ML SYRINGE IVFLUSH (08:58)
--- NOTE | 2025-04-11 09:50 | P.DS_ITS ---
DS: Providers Provider Date of Service: 04/11/25 Date of admission: 04/09/25 06:31 Date of discharge: 04/11/25 Primary care physician: Kristen Jean Baptiste MD Consults: 04/09/25 06:33 Consult to Infectious Diseases Routine Consulting Provider: [facility] Reason for consultation: rec uti 04/09/25 18:48 Consult to Wound Care Routine Reason for consultation: DTI R buttock DS: Diagnosis Discharge Diagnosis (1) Neurogenic bladder: Status: Acute (2) Recurrent UTI (urinary tract infection): Status: Acute DS: Summary Hospital Course Hospital Course: from initial hpi: 70F PMH dvt/pe on low dose xarelto, history of NH and cardiac arrest, trigeminal neuralgia, osteoporosis, Parkinson's, hypothyroid, hypertension, CVA, chronic urinary retention with chronic Tran and UTI, multiple sclerosis wheelchair bound presented with fever and chills. Patient called EMS due to feeling lethargic, rigors chills 1 day prior to presentation. Patient has history of recurrent UTIs due to her indwelling Tran catheter. Denies chest pain shortness breath. In ED noted to be septic with positive UA. hospital course: Patient was admitted for severe sepsis due to recurrent urinary tract infection due to chronic indwelling catheter due to urinary retention for multiple sclerosis. Was treated with ceftriaxone and sepsis resolved. CT abdomen did not reveal any obstruction. Cultures grew mixed maya, blood culture was negative. Was seen by infectious disease who recommended continue cephalosporin and adding linezolid due to history of Enterococcus faecalis to complete 14 day total. For history of DVT and PE was continued on Xarelto. For hypothyroidism continue levothyroxine. For multiple sclerosis wheelchair-bound was continued on baclofen. Patient is feeling better and will be discharged home. Time Attestation Discharge Coordination Time (in mins): 32 Quality: Safe Use of Opioids Does Pt have an Active Cancer Diagnosis on the Problem List?: No Quality: Stroke Does the patient have a stroke diagnosis?: No Physical Exam Vital Signs: Vital Signs: Last Vital Signs Temp 97.1 F 04/11/25 07:08 Pulse 70 04/11/25 07:08 Resp 18 04/11/25 07:08 BP 140/73 H 04/11/25 07:08 Pulse Ox 97 04/11/25 07:08 O2 Del Method Room Air 04/11/25 07:08 BMI result Body Mass Index 35.8 Const: General: cooperative HEENT: Head: Yes normal to inspection Face and sinus: Yes normal facial exam Mouth: Normal oral and palatal mucosa present Teeth and gingiva: dentition normal Eyes: General: appearance normal, both eyes and all related structures Pupils: Equal, round and reactive pupils present Resp: Effort & Inspection: normal respiratory effort Cardio: Rate: regular rate Rhythm: regular rhythm GI: Palpation (GI): Soft to palpation and nontender : General: Yes no CVA tenderness Back/Spine/Pelvis: Back: no CVA tenderness Skin: General skin exam: no rashes or lesions noted Neuro: General: moves all extremities Cranial nerves: Yes Equal, round and reactive pupils present Extrem: Other: not able to move LE Psych: Appearance: grossly normal DS: Data Data Completed and Pending Completed studies during hospitalization [Text1]: Procedures Insertion of Infusion Device into Left Basilic Vein, Percutaneous Approach (03/18/24) Insertion of Infusion Device into Left Cephalic Vein, Percutaneous Approach (12/02) Labs on day of discharge: Laboratory Results - last 24 hr 04/11/25 07:45 WBC 6.8 RBC 3.69 L Hgb 11.2 L Hct 35.1 L MCV 95.1 MCH 30.4 MCHC 31.9 RDW 13.0 Plt Count 274 MPV 10.0 Absolute Nucleated RBC 0.000 Nucleated RBC % (auto) 0.0 Sodium 141 Potassium 3.5 Chloride 110 H Carbon Dioxide 20 L Anion Gap 15 BUN 14 Creatinine 0.68 Estim Creat Clear Calc 87.7 Estimated GFR > 60 Random Glucose 118 H Calcium 8.7 Preliminary micro results at discharge 04/09/25 04:40 Blood Culture - Preliminary Blood - Venous No growth after 48 hours. 04/09/25 04:40 Blood Culture - Preliminary Blood - Venous No growth after 48 hours. Discharge Plan Discharge Anticipated Discharge Date/Time: 04/11/25 09:45 Patient Disposition: Home Health Service Discharge Diagnosis: sepsis, uti Referrals: Kristen Jean Baptiste MD [Primary Care Provider, Internal Medicine] - 1 Week Discharge Medications: New linezolid 600 mg Tablet 600 mg PO Q12H Qty: 20 0RF cefuroxime axetil 500 mg tablet 500 mg PO BID Qty: 20 0RF Continued cholecalciferol (vitamin D3) 50 mcg (2,000 unit) capsule 1 cap PO DAILY silver sulfadiazine 1 % cream 1 appl topical DAILY baclofen 20 mg tablet 20 mg PO TID metronidazole 0.75 % cream 1 appl topical BID Xarelto 10 mg tablet 10 mg PO DAILY Multivitamin 50 Plus Tablet 1 tab PO DAILY triamcinolone acetonide 0.1 % cream 1 appl topical BID Rx Instructions: APPLY TWO TIMES A DAY UNDER PANNUS FOR ONE WEEK THEN TAKE ONE WEEK OFF, FOLLOW WITH MOISTURIZER, REPEAT NEEDED , NOT FOR USE ON FACE OR BODY FOLDS hydrocortisone 2.5 % cream with perineal applicator 1 appl topical BID acetaminophen [Mapap (acetaminophen)] 500 mg capsule 500 mg PO BID@1200,2100 PRN (Reason: pain) psyllium husk 0.4 gram capsule 0.4 g PO DAILY ascorbic acid (vitamin C) [Vitamin C] 1,000 mg tablet 1,000 mg PO BID acetaminophen [Mapap (acetaminophen)] 500 mg capsule 1,000 mg PO BID@0900,1700 PRN (Reason: Pain) modafinil [Provigil] 200 mg tablet 200 mg PO BID Rx Instructions: Pt receives Brand name only, generic does not work gabapentin 300 mg capsule 300 mg PO TID levothyroxine 88 mcg tablet 88 mcg PO DAILY@0600 furosemide 40 mg tablet 40 mg PO DAILY lisinopril 5 mg tablet 5 mg PO DAILY fenofibrate 40 mg tablet 40 mg PO DAILY trimethoprim 100 mg tablet 100 mg PO DAILY 90 Days Qty: 90 1RF estradiol 0.01 % (0.1 mg/gram) cream See Rx Instructions .Route 3XW 30 Days Qty: 42.5 2RF Rx Instructions: pea-sized to urethra 3 times a week - around catheter fosfomycin tromethamine 3 gram packet 3 g PO Q3D Qty: 4 1RF Discharge Orders: Discharge Order (Routine); Ordered 04/11/25 Ordered By: eNstor Solano Diet: Advance to usual diet Activity on Discharge: As tolerated Stand Alone Forms: Patient Portal Discharge page Print Language: Occitan Care Plan Goals: recovery Health Concerns: uti Plan of Treatment: ceftin and zyvoc for 10 more days Assessment: see above
--- NOTE | 2025-04-11 10:22 | MHC.CM.PN ---
Pt. has been medically cleared to go home, she will go via BLS, and reume her VNA services from [facility].
== END 2025-04-11 12:07 | disposition home health service (06) | DRG 698 ==
LOC: HO.ED 05:41 → HO.EDOVER 06:36 → HO.IMC 16:12
PROVIDERS: Admitting Provider Hospitalist; Emergency Provider Emergency Medicine; PCP Family Medicine; Visit Provider Internal Medicine
DX: T83.511A Infection and inflammatory reaction due to indwelling urethral catheter, initial encounter (principal); A41.9 Sepsis, unspecified organism; R65.20 Severe sepsis without septic shock; N39.0 Urinary tract infection, site not specified; Z66 Do not resuscitate; E03.9 Hypothyroidism, unspecified; R33.9 Retention of urine, unspecified; N31.9 Neuromuscular dysfunction of bladder, unspecified; G35 Multiple sclerosis; Z99.3 Dependence on wheelchair; Z86.14 Personal history of Methicillin resistant Staphylococcus aureus infection; Z86.74 Personal history of sudden cardiac arrest; Z87.440 Personal history of urinary (tract) infections; Z86.718 Personal history of other venous thrombosis and embolism; Z86.711 Personal history of pulmonary embolism; Z79.01 Long term (current) use of anticoagulants; Z79.899 Other long term (current) drug therapy; Z79.890 Hormone replacement therapy
CPT/HCPCS: 36415; 71045; 74176; 80048; 80053; 81001; 83605; 84484; 85025; 85027; 87040; 87086; 99285; J0131; J0696

== ENCOUNTER → 2025-04-09 05:32 | Outpatient (BNV) | payer MEDICARE, MEDICAID, SELFPAY | PROVIDERS: Admitting Provider Hospitalist; Emergency Provider Emergency Medicine; Visit Provider Radiology Diagnostic Radiology | DX: R50.9 Fever, unspecified (principal) | CPT/HCPCS: 71045 ==

== ENCOUNTER 2025-04-09 06:31 | Outpatient (BNV) | payer MEDICARE, MEDICAID, SELFPAY | END 2025-04-10 08:28 | PROVIDERS: Admitting Provider Hospitalist; Emergency Provider Emergency Medicine; PCP Family Medicine; Visit Provider Radiology Diagnostic Radiology | DX: N20.0 Calculus of kidney (principal); K44.9 Diaphragmatic hernia without obstruction or gangrene | CPT/HCPCS: 74176 ==

== ENCOUNTER → 2025-04-09 06:31 | Outpatient (BNV) | payer MEDICARE, MEDICAID, SELFPAY | PROVIDERS: Admitting Provider Hospitalist; Emergency Provider Emergency Medicine; Visit Provider Internal Medicine | DX: N31.9 Neuromuscular dysfunction of bladder, unspecified (principal); N39.0 Urinary tract infection, site not specified | CPT/HCPCS: 99223; 99233; 99239 ==

== ENCOUNTER → 2025-04-09 06:31 | Outpatient (BNV) | payer MEDICARE, MEDICAID, SELFPAY | PROVIDERS: Admitting Provider Hospitalist; Emergency Provider Emergency Medicine; PCP Family Medicine; Visit Provider Internal Medicine | DX: N39.0 Urinary tract infection, site not specified (principal); N31.9 Neuromuscular dysfunction of bladder, unspecified | CPT/HCPCS: 99222 ==